=== PATIENT | female | born 1960 | race Caucasian/White ===

== ENCOUNTER → 2020-05-14 17:02 | Outpatient (CLI) | payer OTHER, SELFPAY ==
--- NOTE | ~2020-05-14 | XR_ITS ---
EXAMINATION: XR foot RT standing 2V DATE: 05/14/2020 17:25 INDICATION: Osteoarthritis. TECHNIQUE: 2 views of right foot with weightbearing were obtained. COMPARISON: None. FINDINGS: There is moderate hallux valgus. No fracture. There is mild osteoarthritis of first metatar sophalangeal joint, first interphalangeal joint, and third proximal interphalangeal joint. IMPRESSION: 1. Moderate hallux valgus. 2. Mild polyarticular osteoarthritis. Reviewed, dictated and finalized at location A. OPTOMETRIC
--- NOTE | ~2020-05-14 | XR_ITS ---
EXAMINATION: XR hand BI arthritis min 3V DATE: 05/14/2020 17:25 INDICATION: Osteoarthritis. TECHNIQUE: 4 views of right hand and 4 views of left hand on a total of 7 radiographs were obtained. COMPARISON: None. FINDINGS: RIGHT HAND: Bone alignment is normal. No fracture. There is mild osteoarthritis of third and fifth di stal interphalangeal joints with small periarticular calcification at third distal interphalangeal ruperto int. LEFT HAND: Bone alignment is normal. No fracture. There is mild osteoarthritis of second, fourth, and fifth distal interphalangeal joints. IMPRESSION: 1. Mild polyarticular osteoarthritis. Reviewed, dictated and finalized at location A. 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
--- NOTE | ~2020-05-14 | XR_ITS ---
EXAMINATION: XR foot LT standing 2V DATE: 05/14/2020 17:25 INDICATION: Osteoarthritis. TECHNIQUE: 2 views of left foot were obtained. COMPARISON: None. FINDINGS: There is mild hallux valgus. No fracture. Joint spaces are normal. IMPRESSION: 1. Mild hallux valgus. 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 Mild hallux valgus.
== END ==
PROVIDERS: PCP Family Medicine Sports Medicine; Visit Provider Internal Medicine
DX: M19.041 Primary osteoarthritis, right hand (principal); M19.042 Primary osteoarthritis, left hand; M20.11 Hallux valgus (acquired), right foot; M19.071 Primary osteoarthritis, right ankle and foot; M20.12 Hallux valgus (acquired), left foot
CPT/HCPCS: 73130; 73620

== ENCOUNTER → 2020-07-09 11:45 | Outpatient (CLI) | payer OTHER, SELFPAY ==
--- NOTE | ~2020-07-09 | MM_ITS ---
EXAMINATION: MM scrn elizabeth implant BI w moises HISTORY: Screening mammogram TECHNIQUE: Craniocaudal and mediolateral oblique 3-D tomosynthesis images with implant displacement a nd synthetic 2-D images were generated. Craniocaudal and mediolateral oblique views of the breasts wi thout implant displacement were obtained using full field digital mammography. CAD analysis was submi tted and interpreted. COMPARISON: Comparison to multiple prior studies sequentially, with oldest reviewed study dated 09/01. BREAST PARENCHYMAL COMPOSITION: There are scattered areas of fibroglandular density. FINDINGS: There is no evidence of suspicious mass, calcification, or architectural distortion to sugg est malignancy in either breast. There has been no suspicious interval change. IMPRESSION: 1. No mammographic evidence of malignancy. 2. Recommend routine screening mammography in one year. BI-RADS Category 1: Negative Reviewed, dictated and finalized at location A. 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
== END ==
PROVIDERS: PCP Family Medicine Sports Medicine; Visit Provider Obstetrics & Gynecology
DX: Z12.31 Encounter for screening mammogram for malignant neoplasm of breast (principal)
CPT/HCPCS: 77063; 77067

== ENCOUNTER → 2021-11-27 11:09 | Outpatient (CLI) | payer OTHER, SELFPAY ==
--- NOTE | ~2021-11-27 | MM_ITS ---
EXAMINATION: MM scrn elizabeth implant BI w moises HISTORY: Screening mammogram TECHNIQUE: Craniocaudal and mediolateral oblique 3-D tomosynthesis images with implant displacement a nd synthetic 2-D images were generated. Craniocaudal and mediolateral oblique views of the breasts wi thout implant displacement were obtained using full field digital mammography. CAD analysis was submi tted and interpreted. COMPARISON: 07/09/2020, 09/13/2018, 09/01/2017 BREAST PARENCHYMAL COMPOSITION: The breasts are heterogeneously dense, which may obscure small masses . FINDINGS: There is no evidence of suspicious mass, calcification, or architectural distortion to sugg est malignancy in either breast. There has been no suspicious interval change. IMPRESSION: 1. No mammographic evidence of malignancy. 2. Recommend routine screening mammography in one year. BI-RADS Category 1: Negative Reviewed, dictated and finalized at location A.
== END ==
PROVIDERS: PCP Family Medicine Sports Medicine; Visit Provider Obstetrics & Gynecology
DX: Z12.31 Encounter for screening mammogram for malignant neoplasm of breast (principal)
CPT/HCPCS: 77063; 77067

== ENCOUNTER 2022-01-28 13:54 | Outpatient (CLI) | payer OTHER, SELFPAY ==
--- NOTE | ~2022-01-28 | US_ITS ---
EXAMINATION: US carotid duplex BI DATE: 01/28/2022 14:41 INDICATION: Carotid bruit TECHNIQUE: Grayscale, color Doppler, and pulsed Doppler images of the cervical carotid arteries were obtained. The degree of vessel stenosis is placed in one of the following categories: normal, <50%, 5 0-69%, >=70% but less than near-occlusion, near-occlusion, or total occlusion. Note that percent sten osis relative to normal distal artery lumen diameter is indirectly measured from velocity measurement s as described by Roderick, et al. Radiology 2003; 229:340-346. COMPARISON: None. FINDINGS: RIGHT: The right common carotid artery (CCA) peak systolic velocity (PSV) is 81 cm/s. The right internal car otid artery (ICA) PSV is 86 cm/s. The right ICA end-diastolic velocity (EDV) is 27 cm/s. The right IC A/CCA PSV ratio is 1.1. Grayscale and color Doppler images yield an estimate of <50% diameter reducti on from plaque in the ICA. The external carotid artery (ECA) PSV is 242 cm/s. There is antegrade flow in the right vertebral artery. LEFT: The left CCA PSV is 80 cm/s. The left ICA PSV is 114 cm/s. The left ICA EDV is 43 cm/s. The left ICA/ CCA PSV ratio is 1.4. Grayscale and color Doppler images yield an estimate of <50% diameter reduction from plaque in the ICA. The ECA PSV is 205 cm/s. There is antegrade flow in the left vertebral arter y. IMPRESSION: 1. <50% stenosis in the right internal carotid artery. 2. <50% stenosis in the left internal carotid artery. Reviewed, dictated and finalized at location A.
--- NOTE | ~2022-01-28 | XR_ITS ---
XR chest 2V DATE: 01/28/2022 14:47 INDICATION: Dizziness for 2 weeks. History of hypertension. TECHNIQUE: 2 views COMPARISON: Two-view chest on 06/23/2006 FINDINGS: Normal heart size. Aortic arch calcification. No hilar or mediastinal enlargement. Mild bilateral apical capping. No pulmonary infiltrate or consolidation, pleural effusion or pulmonar y vascular congestion or pneumothorax. Osteopenia. Mild thoracic dextroscoliosis. IMPRESSION: No active cardiopulmonary disease Aortic atherosclerosis Osteopenia Mild dextroscoliosis of the thoracic spine. Reviewed, dictated and finalized at location B.
== END 2022-01-28 13:55 | disposition home or self-care (01) ==
PROVIDERS: PCP Internal Medicine; Visit Provider Internal Medicine
DX: R09.89 Other specified symptoms and signs involving the circulatory and respiratory systems (principal); I10 Essential (primary) hypertension; R42 Dizziness and giddiness
CPT/HCPCS: 71046; 93880

== ENCOUNTER 2022-02-03 13:18 | Outpatient (CLI) | payer OTHER, SELFPAY ==
--- NOTE | 2022-02-03 01:00 | ECHO_ITS ---
Patient Info Name: Senia Ruth Age: 61 years : 1960 Gender: Female Ht: 63 in Wt: 139 lbs BSA: 1.68 m2 HR: 75 bpm BP: 156 / 82 mmHg Heart Rhythm: Sinus Rhythm Technical Quality: Fair Exam Date: 02/03/2022 1:51 PM Exam Location: [facility] Patient Status: Outpatient Admit Date: 02/03/2022 Staff Ordering Physician: William Craig MD Track Repair Supervisor: Lizzie Rivas RDCS Attending Provider: William Craig MD Exam Type: CA echo doppler color flow Study Info Indications - Dizziness, giddiness, bilateral bruitis, cad Complete two-dimensional, color flow and Doppler transthoracic echocardiogram is performed. Summary 1. Complete two-dimensional, color flow and Doppler transthoracic echocardiogram is performed. 2. Left ventricular chamber dimension is normal. 3. Left ventricular systolic function is normal, estimated at 60-65%. 4. There is moderately increased left ventricular wall thickness. 5. The left ventricular diastolic function is abnormal. 6. E/e' 35 is significantly elevated. 7. Left atrial chamber dimension is mildly enlarged. 8. There is moderate aortic valve sclerosis. 9. The mitral valve has moderately calcified annulus. 10. There is mild to moderate mitral valve regurgitation. 11. There is trace tricuspid valve regurgitation. 12. No pulmonary hypertension, estimated pulmonary arterial systolic pressure is 39 mmHg. 13. There is trace pulmonic regurgitation. Left Ventricle E/e' 35 is significantly elevated. Left ventricular chamber dimension is normal. Left ventricular systolic function is normal, estimated at 60-65%. There is moderately increased left ventricular wall thickness. The left ventricular diastolic function is abnormal. Right Ventricle Right ventricular systolic function is normal and with normal TAPSE 2.0 cm. Right ventricular chamber dimension is normal. Left Atria Left atrial chamber dimension is mildly enlarged. Right Atria Right atrial chamber dimension is normal. Aortic Valve The aortic valve is trileaflet. There is moderate aortic valve sclerosis. There is no aortic valve stenosis. There is no aortic valve regurgitation. Pulmonic Valve There is trace pulmonic regurgitation. Mitral Valve The mitral valve has moderately calcified annulus. There is no mitral valve stenosis. There is mild to moderate mitral valve regurgitation. Tricuspid Valve There is trace tricuspid valve regurgitation. No pulmonary hypertension, estimated pulmonary arterial systolic pressure is 39 mmHg. Pericardium/Pleural There is no pericardial effusion. Inferior Vena Cava Normal inferior vena cava with >50% collapse upon inspiration consistent with normal right atrial pressure, 5 mmHg. Aorta The aortic root size at the sinus of Valsalva is normal. Left Ventricular Outflow Tract Name Value Normal LVOT 2D LVOT Diameter 1.9 cm LVOT Doppler LVOT Peak Velocity 109 cm/s LVOT Peak Gradient 5 mmHg LVOT Mean Gradient 2 mmHg LVOT VTI 21 cm
== END 2022-02-03 13:19 | disposition home or self-care (01) ==
LOC: CHSIMG 13:19
PROVIDERS: PCP Internal Medicine; Visit Provider Internal Medicine
DX: R42 Dizziness and giddiness (principal); R09.89 Other specified symptoms and signs involving the circulatory and respiratory systems; I25.10 Atherosclerotic heart disease of native coronary artery without angina pectoris
CPT/HCPCS: 93306

== ENCOUNTER → 2022-02-14 12:23 | Outpatient (CLI) | payer OTHER, SELFPAY ==
--- NOTE | ~2022-02-14 | DEXA_ITS ---
Bone Density Report Name: LYNN ZELAYA Age: 61 Sex: Female Ethnicity: White Date of : 1960 Indication: osteopenia; rheumatoid arthritis; postmenopausal Referring Provider: Linda Espinoza Study: Bone densitometry was performed. Exam Date: February 14, 2022 Accession number: [id number] Bone Density: Region BMD T-score Z-score Classification AP Spine (L1-L4) 0.799 -2.3 -0.8 Osteopenia Femoral Neck (Left) 0.657 -1.7 -0.4 Osteopenia Total Hip (Left) 0.782 -1.3 -0.3 Osteopenia Femoral Neck (Right) 0.668 -1.6 -0.3 Osteopenia Total Hip (Right) 0.750 -1.6 -0.6 Osteopenia Total Hip Mean 0.766 -1.5 -0.5 Osteopenia World Health Organization criteria for BMD impression classify patients as: Normal (T-score at or above -1.0), Osteopenia (T-score between -1.0 and -2.5), or Osteoporosis (T-score at or below -2.5). 10-year Fracture Risk(1): Major Osteoporotic Fracture 12% Hip Fracture 2.3% Reported Risk Factors: [place] (), Neck BMD=0.657, BMI=24.7, smoking, rheumatoid arthritis (1) FRAX(R) Version 3.08. Fracture probability calculated for an untreated patient. Fracture probability may be lower if the patient has received treatment. Previous Exams: Region Exam Age BMD T-score BMD Change BMD Change Date g/cm2 vs Baseline vs Previous AP Spine(L1-L4) 02/14/2022 61 0.799 -2.3 -0.144* -0.078* 08/08/2016 55 0.877 -1.5 -0.066* -0.066* 07/29/2011 50 0.943 -0.9 Total Hip(Left) 02/14/2022 61 0.782 -1.3 -0.076* 0.007 08/08/2016 55 0.776 -1.4 -0.083* -0.083* 07/29/2011 50 0.859 -0.7 Total Hip(Right) 02/14/2022 61 0.750 -1.6 -0.103* -0.052* 08/08/2016 55 0.802 -1.2 -0.051* -0.051* 07/29/2011 50 0.853 -0.7 *Denotes significance at 95% confidence level, LSC for AP Spine = 0.022 g/cm2, LSC for Total Hip = 0.027 g/cm2 Clinical Information Provided by Patient: Smokes Has rheumatoid arthritis Patient maximum height was 63 Menopause Age: 53 No regular weight bearing exercise Drinks caffeinated beverages Onset of menses at age 14 Number of children 1 Impression: The patient has low bone mass, based on the Total Spine T-score. The patient has an estimated ten-year risk of hip fracture of 2.3% and an estimated ten-year risk of major fracture of 12%, based on the WHO FRAX algorithm. The patient has risk factors, i
== END ==
PROVIDERS: PCP Internal Medicine; Visit Provider Obstetrics & Gynecology
DX: Z78.0 Asymptomatic menopausal state (principal); M85.88 Other specified disorders of bone density and structure, other site; M85.852 Other specified disorders of bone density and structure, left thigh; M85.851 Other specified disorders of bone density and structure, right thigh
CPT/HCPCS: 77080

== ENCOUNTER 2023-01-07 10:23 | Outpatient (CLI) | payer OTHER, SELFPAY ==
--- NOTE | ~2023-01-07 | CT_ITS ---
CT Scan of the Chest without Contrast: Clinical Indication: Lung cancer screening, personal history of nicotine dependence Technique: Contiguous sections were acquired throughout the chest without intravenous contrast. Dose reduction technique was used on this scan by utilizing automated exposure control and iterative recon struction technique. The dose-length product (DLP) was 63.01 mGy-cm. Findings: There is no evidence of any significant mediastinal, hilar or axillary lymphadenopathy. Atherosclerot ic calcifications of the aorta and coronary arteries are present. There is no evidence of pleural or pericardial effusion. Biapical scarring present. 2 mm right upper lobe pulmonary nodule present (axial image 45). There is focal cystic change or bronchiectatic change at the right lung base (axial image 92 for example). Images through the upper abdomen reveal no abnormalities. Impression: Lung RADS 2: Benign appearance. 12 month follow-up screening CT advised. Reviewed, dictated and finalized at [facility]. Impression: Lung RADS 2: Benign appearance. 12 month follow-up screening CT advised.
== END 2023-01-07 10:24 | disposition home or self-care (01) ==
LOC: CHSIMG 10:24
PROVIDERS: PCP Internal Medicine; Visit Provider Internal Medicine
DX: Z12.2 Encounter for screening for malignant neoplasm of respiratory organs (principal); Z87.891 Personal history of nicotine dependence
CPT/HCPCS: 71271

== ENCOUNTER → 2023-03-17 10:53 | Outpatient (CLI) | payer OTHER, SELFPAY ==
--- NOTE | ~2023-03-17 | MM_ITS ---
EXAMINATION: MM scrn elizabeth implant BI w moises HISTORY: Screening mammogram TECHNIQUE: Craniocaudal and mediolateral oblique 3-D tomosynthesis images with implant displacement a nd synthetic 2-D images were generated. Craniocaudal and mediolateral oblique views of the breasts wi thout implant displacement were obtained using full field digital mammography. CAD analysis was submi tted and interpreted. COMPARISON: 11/27/2021, 07/01/2020 bilateral implant screening mammogram examinations BREAST PARENCHYMAL COMPOSITION: The breasts are heterogeneously dense, which may obscure small masses . FINDINGS: Status post bilateral augmentation mammoplasty. There is no evidence of suspicious mass, ca lcification, or architectural distortion to suggest malignancy in either breast. There has been no tafoya spicious interval change. IMPRESSION: 1. No mammographic evidence of malignancy. 2. Recommend routine screening mammography in one year. BI-RADS Category 1: Negative Reviewed, dictated and finalized at location A.
== END ==
PROVIDERS: PCP Obstetrics & Gynecology; Visit Provider Obstetrics & Gynecology
DX: Z12.31 Encounter for screening mammogram for malignant neoplasm of breast (principal)
CPT/HCPCS: 77063; 77067

== ENCOUNTER 2023-11-14 09:49 | Outpatient (CLI) | payer OTHER, SELFPAY ==
--- NOTE | ~2023-11-14 | MR_ITS ---
EXAMINATION: MR brain/brain stem wo con DATE: 11/14/2023 10:42 INDICATION: New onset headache. TECHNIQUE: Magnetic resonance imaging (MRI) of the brain and brainstem was performed without intraven ous contrast. COMPARISON: None. FINDINGS: There is an old infarct in left frontal lobe. There is an old infarct in right temporal par ietal region. There is an acute infarct in left occipital lobe. There are scattered areas of nonspeci fic increased T2-weighted signal intensity in the cerebral white matter and jessenia. There is no intracr anial hemorrhage or abnormal mass lesion. The ventricles are normal in size. The orbits are normal. T he mastoid air cells are normal. IMPRESSION: 1. Acute infarct in left occipital lobe. 2. 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 3. Extensive nonspecific cerebral white matter disease and pontine disease, which likely represents c hronic small vessel ischemic disease. Reviewed, dictated and finalized at location A. IMPRESSION: 1. Acute infarct in left occipital lobe. 2. 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 3. Extensive nonspecific cerebral white matter disease and pontine disease, whi ch likely represents chronic small vessel ischemic disease.
== END 2023-11-14 09:50 | disposition home or self-care (01) ==
PROVIDERS: PCP Internal Medicine; Visit Provider Internal Medicine
DX: R51.9 Headache, unspecified (principal); I63.9 Cerebral infarction, unspecified; R90.82 White matter disease, unspecified; G93.89 Other specified disorders of brain
CPT/HCPCS: 70551

== ENCOUNTER 2023-11-24 08:35 | Outpatient (CLI) | payer OTHER, SELFPAY ==
--- NOTE | ~2023-11-24 | CT_ITS ---
EXAMINATION: CTA brain carotid DATE: 11/24/2023 09:25 INDICATION: Cerebrovascular accident. TECHNIQUE: Computed tomographic angiography (CTA) of the head was performed without and with 100 mL O [id number] intravenous contrast. CTA of the neck was performed with intravenous contrast. Automated exposure control and iterative reconstruction technique were employed. The dose-length product was 1 458.13 mGy-cm. Maximum intensity projection and volume rendered 3D-reconstructions were created by gulshan phipps technologist on a separate workstation. COMPARISON: Brain MRI 11/14/2023 FINDINGS: HEAD CTA: There is a subacute infarct in left occipital lobe. There is an old infarct in the left fro ntal lobe. There is an old infarct in the right temporal parietal region. There are scattered areas o f low attenuation in the cerebral white matter. There is no intracranial hemorrhage or abnormal mass lesion. The orbits are normal. The paranasal sinuses are clear. The mastoid air cells are normal. Rig ht vertebral artery is dominant. There is moderate stenosis of the intracranial right vertebral arter y. There is no significant stenosis of basilar artery or the posterior cerebral arteries. There is mi ld stenosis of the intracranial internal carotid arteries. There is no significant stenosis of the an terior or middle cerebral arteries. Anterior communicating artery is normal. The posterior communicat ing arteries are normal. There is no aneurysm. NECK CTA: There is mild emphysema. There is mild scarring at the lung apices. 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 There is plaque in the proximal inte rnal carotid arteries. There is 17% stenosis of the proximal right internal carotid artery relative t o normal distal artery lumen diameter (NASCET criteria). There is 8% stenosis of the proximal left in ternal carotid artery relative to normal distal artery lumen diameter. There is severe cervical spond ylosis. IMPRESSION: 1. Subacute infarct in left occipital lobe. 2. Old infarcts involving the left frontal lobe and right temporal parietal region. 3. Extensive nonspecific cerebral white matter disease, which likely represents chronic small vessel ischemic disease. 4. Moderate stenosis of the intracranial right vertebral artery. 5. 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 6. 17% stenosis of the proximal right internal carotid artery relative to normal distal artery lumen diameter (NASCET criteria). 7. 8% stenosis of the proximal left internal carotid artery relative to normal distal artery lumen di ameter. Reviewed, dictated and finalized at location A. IMPRESSION: 1. Subacute infarct in left occipital lobe. 2. Old infarcts involving the left frontal lobe and right temporal parietal reg ion. 3. Extensive nonspecific cerebral white matter disease, which likely represents chronic small vessel ischemic disease. 4. Moderate stenosis of the intracranial right vertebral artery. 5. 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 6. 17% stenosis of the proximal right internal carotid artery relative to britni l distal artery lumen diameter (NASCET criteria). 7. 8% stenosis of the proximal left internal carotid artery relative to normal distal artery lumen diameter.
== END 2023-11-24 08:36 | disposition home or self-care (01) ==
LOC: CHSIMG 08:36
PROVIDERS: PCP Internal Medicine; Visit Provider Internal Medicine
DX: R90.82 White matter disease, unspecified (principal); I63.89 Other cerebral infarction; I67.9 Cerebrovascular disease, unspecified; I65.02 Occlusion and stenosis of left vertebral artery; I65.23 Occlusion and stenosis of bilateral carotid arteries
CPT/HCPCS: 70496; 70498; Q9967

== ENCOUNTER 2023-11-26 09:22 | Outpatient (CLI) | payer OTHER, SELFPAY ==
--- NOTE | 2023-12-24 11:06 | P.PCNHOL_ITS ---
Holter/Event Monitor Holter/Event Monitor Date of procedure: 11/26/23 Holter/Event Procedure: Event Monitor Indications: TIA Conclusion: 1. 24 days event monitor between 11/26/23-12/24/23. There are 31 available transm issions for analysis. 2. Underlying rhythm is sinus rhythm. HR range 49-115 bpm; average HR 69 bpm. HR at 49 bpm was on 11/27/23 at 16:20. 3. No premature supraventricular complexes. No supraventricular tachycardia. 4. There are occasional premature ventricular complexes with total burden of <1%. No ventricular tachycardia. 5. No significant pauses greater than 2 seconds. 6. Patient reports 8 episodes of symptoms of dizziness and symptoms other than listed which demonstrate sinus rhythm, HR range 63-100 bpm.
== END 2023-11-26 09:23 | disposition home or self-care (01) ==
PROVIDERS: PCP Internal Medicine; Visit Provider Internal Medicine
DX: I67.9 Cerebrovascular disease, unspecified (principal)
CPT/HCPCS: 93270

== ENCOUNTER 2024-01-07 13:22 | Outpatient (CLI) | payer OTHER, SELFPAY ==
--- NOTE | 2024-01-07 13:27 | ECHO_ITS ---
Patient Info Name: Senia Ruth Age: 63 years : 1960 Gender: Female Ht: 63 in Wt: 134 lbs BSA: 1.65 m2 HR: 75 bpm BP: 130 / 81 mmHg Technical Quality: Good Exam Date: 01/07/2024 1:39 PM Exam Location: [facility] Patient Status: Outpatient Admit Date: 01/07/2024 Staff Ordering Physician: William Craig MD Clinic Cma: Bernard Chan RDCS Attending Provider: William Craig MD Exam Type: CA echo doppler w bubble study Study Info Indications - HTN - small vessel disease - CVA Complete two-dimensional, color flow and Doppler transthoracic echocardiogram is performed with agitated saline. Contrast/Agitated Saline Contrast/Ag. Saline: Agitated Saline Amount: 9.00 ml Existing IV Access: Yes Summary 1. Left ventricular chamber dimension is normal. 2. Left ventricular systolic function is normal, estimated at 60-65%. 3. There is mild concentric increased left ventricular wall thickness. 4. The left ventricular diastolic function is grade I diastolic dysfunction. 5. E/e' 33 is significantly elevated. 6. Left atrial chamber dimension is moderately enlarged. 7. There is mild aortic valve sclerosis. 8. The mitral valve has not well visualized and moderately calcified annulus. 9. There is moderate mitral valve stenosis based on valve area of 1.3 cm2 and mean gradient of 12 mmHg. 10. There is trace tricuspid valve regurgitation. 11. No pulmonary hypertension, estimated pulmonary arterial systolic pressure is 33 mmHg. 12. There is trace pulmonic regurgitation. Left Ventricle E/e' 33 is significantly elevated. Left ventricular chamber dimension is normal. Left ventricular systolic function is normal, estimated at 60-65%. There is mild concentric increased left ventricular wall thickness. The left ventricular diastolic function is grade I diastolic dysfunction. Right Ventricle Right ventricular systolic function is normal and with normal TAPSE 2.1 cm. Right ventricular chamber dimension is normal. Left Atria Left atrial chamber dimension is moderately enlarged. Right Atria Right atrial chamber dimension is normal. Atrial Septum Agitated saline injection opacified right side cardiac chambers with valsalva maneuver without shunt to left side cardiac chambers. Intact interatrial septum visualized by 2D and agitated saline imaging. Aortic Valve The aortic valve is trileaflet. There is mild aortic valve sclerosis. There is no aortic valve stenosis. There is no aortic valve regurgitation. Pulmonic Valve There is trace pulmonic regurgitation. Mitral Valve The mitral valve has not well visualized and moderately calcified annulus. There is moderate mitral valve stenosis based on valve area of 1.3 cm2 and mean gradient of 12 mmHg. There is mild mitral valve regurgitation. Tricuspid Valve There is trace tricuspid valve regurgitation. No pulmonary hypertension, estimated pulmonary arterial systolic pressure is 33 mmHg. Pericardium/Pleural There is no pericardial effusion. Inferior Vena Cava Normal inferior vena cava with >50% collapse upon inspiration consistent with normal right atrial pressure, 5 mmHg. Aorta The aortic root size at the sinus of Valsalva is normal. Left Ventricular Outflow Tract Name Value Normal LVOT 2D LVOT Diameter
== END 2024-01-07 13:23 | disposition home or self-care (01) ==
LOC: CHSIMG 13:23
PROVIDERS: PCP Internal Medicine; Visit Provider Internal Medicine
DX: I67.9 Cerebrovascular disease, unspecified (principal); I10 Essential (primary) hypertension; I05.0 Rheumatic mitral stenosis; I35.8 Other nonrheumatic aortic valve disorders
CPT/HCPCS: 93306; 96375

== ENCOUNTER 2024-01-29 10:15 | Emergency (ER) | payer OTHER, SELFPAY ==
[2024-01-29] VITALS (11 sets, daily range): BP systolic 145–187; BP diastolic 68–92; PULSE 71–103; RESP 12–20; TEMP 36.1; O2SAT 94–98
--- NOTE | ~2024-01-29 | XR_ITS ---
Portable chest x-ray Comparison: 01/28/2022 Clinical History: Altered mental status Findings: Minimal haziness left lung base. Right lung clear. Cardiomediastinal silhouette is stable . Bones and soft tissues are unremarkable. Impression: Minimal haziness left lung base, nonspecific. Correlate for subtle pneumonia. Reviewed, dictated and finalized at [facility]. Impression: Minimal haziness left lung base, nonspecific. Correlate for subtle pneumonia.
--- NOTE | ~2024-01-29 | CT_ITS ---
CT head without contrast Indication: Headache COMPARISON: 11/24/2023 Technique: Serial scans were obtained through the brain without the administration of contrast. Dose reduction technique was used on this scan by utilizing automated exposure control and iterative recon struction technique. The dose-length product (DLP) was 605.33 mGy-cm. Findings: There is no evidence of intracranial hemorrhage, mass lesion, or acute infarct. Chronic lef t frontal lobe infarct is unchanged. Chronic posterior left temporal lobe infarct is present. The catrachito tricles and subarachnoid spaces are dilated, consistent with minimal atrophy. Low attenuation region s are seen within the periventricular white matter bilaterally, likely representing changes from mobile nurse steff microvascular ischemic disease. There is no evidence of edema, mass effect or midline shift. Th e visualized paranasal sinuses and mastoid air cells are clear. Impression: No intracranial hemorrhage, mass, or acute infarct. Chronic infarcts, as above. Atrophy and chronic white matter changes, as above. Reviewed, dictated and finalized at location . Impression: No intracranial hemorrhage, mass, or acute infarct. Chronic infarcts, as above. Atrophy and chronic white matter changes, as above.
--- NOTE | ~2024-01-29 | CT_ITS ---
EXAMINATION: CTA BRAIN/CAROTID DATE: 01/29/2024 12:50 INDICATION: Stroke with new onset altered mental status, confusion and left-sided headache TECHNIQUE: Computed tomographic angiography (CTA) of the head and neck was performed with 100 mL Omni paque-350 intravenous contrast. Multiplanar reconstructions and maximum intensity projection 3D-recon structions of the carotid arteries and of the intracranial arteries were created by the technologist on a separate workstation. Automated exposure control and iterative reconstruction technique were emp loyed.The dose-length product was 905.14 mGy-cm. COMPARISON: None. FINDINGS: Carotid arteries: Aortic arch is normal in caliber without dissection. There is atherosclerotic plaque at the origins o f the great vessels arising from the arch with approximately 40% stenosis at the origin of the left c ommon carotid artery. There is a 50% stenosis of the right common carotid artery at its bifurcation. There is additional atherosclerotic plaque with 0 % stenosis of the both the right and left carotid b ulbs relative to normal distal artery lumen diameter (NASCET criteria). There is occlusion of the helene gin of the left vertebral artery. There is some reconstitution of a minimal amount of contrast within the threadlike left vertebral artery beginning at the level of the upper cervical spine. Moderate ce rvical spondylosis. Cervical soft tissues are unremarkable. Mild emphysema with moderate biapical ple ural-parenchymal scarring. Intracranial arteries The right vertebral artery is dominant likely related to the proximal occlusion of the left vertebral artery with minimal contrast within a threadlike intracranial portion of the left vertebral artery. There is prominent atherosclerotic calcification at the right carotid canal and the bilateral carotid siphons which limits differentiation of intraluminal contrast from potential soft plaque in the degr ee of stenosis. There appears to be obtained moderate 50-70% stenosis along the right internal caroti d artery both at the carotid canal and along the intracavernous portion of the right carotid artery a nd potentially also at the cavernous portion of the left internal carotid artery. No significant sten osis along the right vertebral or basilar arteries. There are no aneurysms identified. Both A1 and P 1 segments are patent. Cerebral arterial arborization appears symmetric. IMPRESSION: 1. Atherosclerotic plaque with 0% stenosis of the right and left carotid bulbs relative to normal dis krystal artery lumen diameter (NASCET criteria). 2. Atherosclerotic plaques resulting in 40% stenosis at the origin of the left common carotid artery and 50% stenosis at the distalmost right common carotid artery at its bifurcation. 3. Occlusion of the origin of the left vertebral artery which appears to reconstitute along the mid c ervical spine with minimal contrast seen along the threadlike intracranial portion of the artery. 4. Extensive atherosclerotic calcite and noncalcified plaque along the carotid canal the right logistics intern al carotid artery and at the bilateral carotid siphons this along with the surrounding bones limits a ssessment for the degree of stenosis which could reach up to moderate 50-70% stenosis at each of thes e regions. 5. No evident thrombosis, aneurysm or hemodynamically significant stenosis in the remainder of the mo re distal intracranial arteries. Reviewed, dictated and finalized at location A. IMPRESSION: 1. Atherosclerotic plaque with 0% stenosis of the right and left carotid bulbs relative to normal distal artery lumen diameter (NASCET criteria). 2. Atherosclerotic plaques resulting in 40% stenosis at the origin of the left common carotid artery and 50% stenosis at the distalmost right common carotid a rtery at its
--- NOTE | 2024-01-29 10:29 | ECG_ITS ---
Test Date: 2024-01-29 11:02:33 Measurements Intervals [place] Rate: 69 P: 58 MA: 164 QRS: 60 QRSD: 85 T: 74 QT: 400 QTc: 431 Interpretive Statements SINUS RHYTHM WITH SINUS ARRHYTHMIA BASELINE ARTIFACT- I, II, III, AVR, AVL, AVF NORMAL ECG No previous ECG available for comparison Electronically Signed On 01-29-2024 11:04:16 CDT by Han Powers D.O.
[2024-01-29 10:33] LABS: Glucose Point of Care 114 mg/dl (65-105)
--- NOTE | 2024-01-29 10:34 | ED.AMS ---
HPI - Altered Mental Status General Chief Complaint: Altered Mental Status Stated Complaint: confusion Source: patient and family Mode of arrival: ambulatory Limitations: altered mental status History of Present Illness HPI narrative: Patient is 63-year-old female with significant past medical history that presents today with altered mental status. Patient has a history of having 3 2A/drugs in the last year. Her states that she woke up this morning was very confused. He has asked her about taking medication she did know what he was talking about. When asked her a question she was unable to answer them chronically. She does not have any left or right-sided deficits no facial deficits no doses at all. She says the altered mental status. When shown the pictures and sentences of left shoulder scale she was able to answer signs is but not tightly with the pictures were. My initial NIH score assessment is about a 4. she is out of the 4.0 hour window for alteplase. complaint: altered mental status Onset (ago): hour(s) Timing confirmed by: family member Severity: moderate Consistency of symptoms: waxing and waning Associated symptoms: denies other symptoms Related Data Home Medications Medication Instructions Recorded Confirmed metformin 500 mg tablet 500 mg PO DAILY 04/30/20 01/29/24 metoprolol tartrate 50 mg tablet 50 mg PO DAILY 04/30/20 01/29/24 losartan 25 mg tablet 100 mg PO DAILY 03/26/22 01/29/24 Aspir-81 81 mg DAILY 01/29/24 01/29/24 amlodipine 5 mg DAILY 01/29/24 01/29/24 rosuvastatin 20 mg DAILY 01/29/24 01/29/24 Allergies Allergy/AdvReac Type Severity Reaction Status Date / Time No Known Allergies Allergy Verified 01/29/24 10:30 Review of Systems Review of Systems: All systems reviewed & are unremarkable except as noted in HPI and below Constitutional: Constitutional: Reports as per HPI Eyes: Eyes: Reports no additional eye complaints ENT: Reports system reviewed and no additional complaints, except as documented Cardiovascular: Cardiovascular: Reports no additional cardiovascular complaints Respiratory: Respiratory: Reports no additional respiratory complaints Gastrointestinal: Gastrointestinal: Reports no additional gastrointestinal complaints Genitourinary: Genitourinary: Reports no additional female genitourinary complaints Musculoskeletal: Musculoskeletal: Reports no additional musculoskeletal complaints Integumentary/Breasts: Skin/Breast: Reports system reviewed and no additional complaints, except as docu Neurologic: Reports confusion and Reports headache(s) Psychiatric: Psychiatric: Reports no additional psychiatric complaints Endocrine: Endocrine: Reports no additional endocrine complaints Hematologic/Lymphatic: Hematologic/Lymphatic: Reports no additional hematologic/lymphatic complaints Allergic/Immunologic: Allergic/Immunologic: Reports no additional allergic/immunologic complaints PMFSH Past Medical History Medical History Arthritis Bilateral hand pain Diabetes Encounter for screening for other viral diseases Hypertension Inflammatory arthritis (~02/2020) Rheumatoid arthritis, seropositive, multiple sites Family History Family History Mother Hypertension Diabetes mellitus Father Hypertension Sibling Hypertension Diabetes mellitus Social History Social History Smoking packs per day: 0.5 Smoking cigarettes per day: 10.0 Years smoked: 40 Smoking pack-years: 20.00 Smoking status: Current every day smoker Tobacco type: cigarettes Alcohol intake: never Substance use: never Living arrangements: with family Occupation/Education: occupation Gender identity (if verbalized by the patient): Female Exam Const: General: healthy appearing, no acute distress and confusion Nu
[2024-01-29 10:44] LABS: Basophils Percent Auto 1.7 % (0.0-1.0); Eosinophils Absolute Auto 0.31 K/mm3 (0.02-0.50); Eosinophils Percent Auto 5.3 % (1.0-6.0); Hematocrit 34.9 % (35.0-49.0); Hemoglobin 11.3 g/dL (12.0-15.0); Immature Granulocyte Absolute 0.01 K/mm3 (0.00-0.00); Immature Granulocyte Percent A 0.2 % (0.0-0.0); Lymphocytes Absolute Auto 2.18 K/mm3 (1.10-4.50); Lymphocytes Percent Auto 37.5 % (18.0-42.0); Mean Corpuscular HGB Conc 32.4 g/dL (32-36); Mean Corpuscular Hemoglobin 28.5 pg (27.0-31.0); Mean Corpuscular Volume 87.9 fL (78.0-102.0); Mean Platelet Volume 10.6 fl (9.2-11.8); Monocytes Absolute Auto 0.48 K/mm3 (0.10-0.90); Monocytes Percent Auto 8.2 % (2.0-11.0); Neutrophils Absolute Auto 2.74 K/mm3 (1.70-7.20); Neutrophils Percent Auto 47.1 % (50.0-70.0); Platelet Count Result 178 K/mm3 (150-420); Red Blood Count 3.97 M/mm3 (4.20-5.40); Red Cell Distribution Width 13.2 % (11.6-14.4); White Blood Count 5.8 K/mm3 (4.8-10.8)
[2024-01-29 10:57] LABS: INR 0.9; Partial Thromboplastin Time 23.7 Sec (23.9-30.70); Prothrombin Time 9.9 Seconds (9.50-12.1)
[2024-01-29] MEDS: SODIUM CHLORIDE 0.9% IV 1,000 ML 999 ML IV CONT ×2 (11:00→17:20)
[2024-01-29] MEDS: ASPIRIN 81 MG CHEWABLE TABLET 324 MG PO (11:01)
[2024-01-29 11:03] LABS: Alanine Aminotransferase 43 U/L (14-59); Albumin Level 3.7 g/dL (3.4-5.0); Alkaline Phosphatase 71 U/L (46-116); Anion Gap 8 mmol/L (4-12); Aspartate Amino Transferase 28 U/L (15-37); Bilirubin,Total 0.3 mg/dL (0.00-1.00); Blood Urea Nitrogen 13 mg/dL (7-18); Calcium 9.1 mg/dL (8.5-10.1); Carbon Dioxide 28 mmol/L (21-32); Chloride 103 mmol/L (98-108); Estimated CRCL calculation 43 ml/min; Estimated Glomerular Filt Rate 58; Glucose 124 mg/dL (70-99); Osmolality Calculated 289 mOsm/kg (285-295); Potassium 3.7 mmol/L (3.5-5.1); Sodium 139 mmol/L (136-145); Total Protein 7.3 g/dL (6.4-8.2)
[2024-01-29 11:33] LABS: Appearance Urine Clear (Clear); Bilirubin Urine Negative (Negative); Blood Urine Trace-intact (Negative); Color Urine Light Yellow (Yellow); Glucose Urine UA Negative (Negative); Ketones Urine Negative (Negative); Leukocyte Esterase Ur Negative LEU/UL (Negative); Nitrate Urine Negative (Negative); Protein Urine Negative (Negative); Urobilinogen Urine 0.2 mg/dL (0.2-1.0)
[2024-01-29 11:43] LABS: Add Urine Microscopic? YES
[2024-01-29 11:44] LABS: Bacteria Urine None seen /hpf; RBC Urine 0-2 /hpf (0-2); Squamous Epithelial Cell Urine Moderate /hpf (Few); WBC Urine None seen /hpf (0-3)
--- NOTE | 2024-01-29 14:01 | PC.NURSE ---
Spoke with Dr. Gallardo's office staff. Dr. Gallardo is currently unavailable, but message will be sent to her RN about consult request. Awaiting call back.
[2024-01-29] MEDS: CLOPIDOGREL BISULFATE 75 MG TABLET PO (14:06)
[2024-01-29] MEDS: ROSUVASTATIN 10 MG TABLET 40 MG PO (14:06)
--- NOTE | 2024-01-29 14:11 | PC.NURSE ---
Pt states that she needs to urinate again. RN offered commode for Pt's convenience since she is urinating frequently. Pt accepts. PCT placed commode at bedside and instructed Pt on use.
--- NOTE | 2024-01-29 15:19 | PC.NURSE ---
Pt and aware of pending transfer. Pt now able to state the month and day of her birthday, but still cannot say the year. Pt can state that she is at [facility]. When asked the date, Pt states that it is February. Pt still unable to say the year. ERP aware.
--- NOTE | 2024-01-29 15:55 | PC.NURSE ---
ERP spoke with neurologist at [facility] who believes Pt's symptoms are more likely related to encephalopathy instead of stroke and recommends admission under hospitalist. States they do not have any beds available currently, but will call back once something opens up. RN also contacted [facility] in [place] who states that they are at capacity, but Pt was placed on waitlist. Contacted [facility] at [facility] who will page hospitalist regarding admission. Awaiting call back.
[2024-01-29 16:26] LABS: Lactic Acid Reflex 0.9 mmol/L (0.4-2.0)
--- NOTE | 2024-01-29 16:56 | PC.NURSE ---
Dr. Walker in ER and is speaking with ERP at desk.
[2024-01-29] MEDS: methylPREDNISolone SOD SUCC 125 MG VIAL IV PUSH (17:20)
--- NOTE | 2024-01-29 18:03 | PC.NURSE ---
1800: Covid test administered & sent to lab
--- NOTE | 2024-01-29 18:14 | PC.NURSE ---
Waiting for 2nd blood culture to be drawn before starting antibiotics.
[2024-01-29 18:36] LABS: SARS-CoV-2 RNA PCR Negative (Negative)
[2024-01-29 18:41] LABS: Influenza A QL RT-PCR Negative (Negative); Influenza B QL RT-PCR Negative (Negative); RSV RNA, RT-PCR Negative (Negative)
[2024-01-29] MEDS: cefTRIAXone 2 GM/NS 100 ML 2 GM/100 ML BAG IVPB (18:54)
[2024-01-29] MEDS: AZITHROMYCIN 500 MG/NS 250 ML 500 MG/250 ML BAG 250 MG IVPB (19:27)
--- NOTE | 2024-02-05 12:24 | PC.NURSE ---
blood culture reviewed ,, no growth after 5days
== END 2024-01-29 20:38 | disposition short-term general hospital (02) ==
PROVIDERS: Emergency Provider Family Medicine; PCP Internal Medicine
DX: G93.40 Encephalopathy, unspecified (principal); J18.9 Pneumonia, unspecified organism; I65.23 Occlusion and stenosis of bilateral carotid arteries; E11.9 Type 2 diabetes mellitus without complications; I10 Essential (primary) hypertension; M06.9 Rheumatoid arthritis, unspecified; Z79.899 Other long term (current) drug therapy; Z79.84 Long term (current) use of oral hypoglycemic drugs; F17.210 Nicotine dependence, cigarettes, uncomplicated; Z20.822 Contact with and (suspected) exposure to COVID-19
CPT/HCPCS: 36415; 70450; 70496; 70498; 71045; 80053; 81001; 82948; 83605; 84145; 85025; 85610; 85730; 87040; 87637; 93005; 96361; 96365; 96367; 96375; 99285; A9270; J0456; J0696; J2919; J7030; Q9967

== ENCOUNTER 2024-01-29 21:54 | Observation (INO) | payer OTHER, SELFPAY ==
--- NOTE | ~2024-01-29 | XR_ITS ---
EXAMINATION:XR_[id number]_CR DATE: 01/31/2024 18:29 INDICATION: Neck pain TECHNIQUE: AP, lateral, lateral swimmers and odontoid views of the cervical spine are provided. COMPARISON: None FINDINGS: 11 degrees lower cervical levocurvature. Straightening of the normal cervical lordosis. Odontoid is i ntact. Moderate atlantoaxial osteoarthritis. Moderate disc height loss with degenerative endplate ost eophytes at C5-C6 and C6-C7 and mild disc height loss at C4-C5. There is moderate to severe associate d uncovertebral osteoarthritis at these levels. There is moderate to severe bilateral facet osteoarth ritis bilaterally at C3-C4 and C4-C5. Prevertebral soft tissues are normal. Atherosclerotic calcifica tions at the right carotid bulb. Visualized apices of lungs are clear. IMPRESSION: 1. Moderate cervical spondylosis. Reviewed, dictated and finalized at location A.
--- NOTE | ~2024-01-29 | MR_ITS ---
EXAMINATION: MR brain/brain stem wo/w con DATE: 01/30/2024 09:44 INDICATION: Expressive aphasia TECHNIQUE: Magnetic resonance imaging (MRI) of the brain and brainstem was performed without and with 13 mL Multihance intravenous contrast. Sequences included sagittal and axial T1-weighted SE, axial d iffusion-weighted FS SE, axial 3D SWAN, axial T2-weighted FLAIR, and axial T2-weighted FSE. Postcontr ast axial and coronal T1-weighted SE was obtained. Apparent diffusion coefficient (ADC) maps were cre ated. COMPARISON: None. FINDINGS: Moderate-sized region of restricted diffusion involving the posterior medial aspect of the of the lef t temporal and anterior aspect of the left occipital lobe in the left posterior cerebral artery vascu lar distribution. Small region of encephalomalacia with T1 hyperintense laminar necrosis in the later al left occipital lobe and additional small to moderate-sized region of encephalomalacia with additio nal laminar necrosis in the right temporoparietal region. No intracranial hemorrhage or abnormal intr acranial mass lesion. There are scattered areas of nonspecific increased T2-weighted signal intensity in the cerebral white matter, predominantly involving the deep and periventricular white matter. The re are no intraparenchymal signal abnormalities seen on the other pulse sequences. The ventricles are symmetric and normal in size. There are no abnormal extra-axial fluid collections. Flow voids are se en in the cerebral arteries on the T2-weighted sequences consistent with their expected patency. The right vertebral artery is dominant. Small mucous retention cyst in the left maxillary sinus. Visualiz ed orbits and soft tissues are unremarkable. There are no areas of abnormal enhancement on the post c ontrast images. IMPRESSION: 1. Moderate-sized acute infarct at the posterior medial left temporal lobe and anterior left occipita l lobe in the left posterior cerebral artery vascular distribution. 2. Chronic encephalomalacia with laminar necrosis in the lateral left occipital and in the right temp oroparietal regions. 3. Moderate scattered nonspecific white matter T2 hyperintensity likely sequela of chronic small vess el ischemic disease. Reviewed, dictated and finalized at location A. IMPRESSION: 1. Moderate-sized acute infarct at the posterior medial left temporal lobe and anterior left occipital lobe in the left posterior cerebral artery vascular dis tribution. 2. Chronic encephalomalacia with laminar necrosis in the lateral left occipital and in the right temporoparietal regions. 3. Moderate scattered nonspecific white matter T2 hyperintensity likely sequela of chronic small vessel ischemic disease.
--- NOTE | 2024-01-29 21:36 | ADMGEN ---
This patient, Senia Ruth, was admitted to 3 Med Surg Room 317-01. Patient/family oriented to hospital policies and general routines including ID bracelet, bed and alarms, visiting hours, pain management, procedures, bathroom and other care routines, personal items, smoking policy, room service/diet, and visiting hours. Information on how to activate the Rapid Response Team has been discussed. Patient/Family are encouraged to report perceived risks to care and to ask questions if they do not understand what they are told or what they should do.
--- NOTE | 2024-01-29 21:42 | PM.IMHP ---
H&P: HPI History of Present Illness Date/Time: 01/29/24 21:42 Chief Complaint: Confusion Narrative: 63-year-old female presents here with altered mental status with PMH of CVA (residual memory issues and visual changes), rheumatoid arthritis, hypertension, and diabetes. The patient originally presented to [facility] with complaints of confusion. Patient last at her baseline at 10:00 p.m. yesterday when her went to bed. When the patient woke up this morning her noted that she appeared confused, woke up around 9:00 a.m. patient does have history of 3 strokes with residual memory deficits and visual changes. However, has been concerned that symptoms are worse than her a residual deficits. Noted in [facility] ED to have some difficulty with expressive aphasia. During initial evaluation in the ED, the patient was given ceftriaxone, azithromycin, methylprednisolone 125 mg IVP, ASA 324, and 2L NS bolus. Patient follows with neurologist, Dr. Gallardo, in [place]. Patient reports the expressive aphasia has since resolved, however still present on exam. No accompanying focal weakness, focal numbness, facial droop, dysarthria, dysphagia, visual changes, dizziness, or difficulty with balance. Denies cough, shortness breath, fever, chills, body aches. Initial VS at presentation: 96.9? F, HR 72, RR 14, 187/92, and 97% on RA. ED workup showed: No leukocytosis, hemoglobin 11.3, no significant electrolyte derangements, creatinine 0.97 and GFR 58, glucose 124, lactic 0.9, and UA showed trace intact blood and moderate epithelial cells, otherwise unremarkable. Viral PCR negative. Head CT showed no acute findings, chronic infarcts, and atrophy/chronic white matter changes. CXR showed minimal haziness to the left lung base that is nonspecific, correlate for subtle pneumonia. CTA performed, 40% stenosis of the left common carotid artery, 50% stenosis of the distal most right common carotid artery at its bifurcation, occlusion the left vertebral artery which appears to reconstitute along the mid cervical spine with minimal contrast seen along throughout like intracranial portion of the artery, extensive atherosclerotic calcified and nonstop calcified plaque along the carotid canal to the right ICA and at the bilateral carotid siphons, no evidence of thrombosis/aneurysm/S hemodynamically significant stenosis. Review of Systems Review of Systems: Limited All systems reviewed & are unremarkable except as noted in HPI and below PMFSH Past Medical History Medical History (Updated 01/29/24 @ 22:02 by Stephany Yuan APRN) Arthritis Bilateral hand pain Diabetes Encounter for screening for other viral diseases Hypertension Inflammatory arthritis (~02/2020) Rheumatoid arthritis, seropositive, multiple sites Family History Family History Mother Hypertension Diabetes mellitus Father Hypertension Sibling Hypertension Diabetes mellitus Social History Social History Smoking packs per day: 0.5 Smoking cigarettes per day: 10.0 Years smoked: 40 Smoking pack-years: 20.00 Smoking status: Former smoker Tobacco type: cigarettes Alcohol intake: never Substance use: never Do You Feel Safe in your Home?: Yes Lack of Transportation: No Lack of Food: Never True Current Housing: I Have Housing Concerned About Future Housing: No Difficulty Paying Gas/Electric Bills: No Difficulty Paying for Meds: No Currently Unemployed: YES Education: Don't Know Difficulty w/ Childcare or Family Care: No Living arrangements: with family Occupation/Education: occupation Gender identity (if verbalized by the patient): Female Spiritual care concerns: No Meds Home Medications and Allergies Home Medications Medication Instructions Recorded Confirmed Type metformin 500 mg tablet 500 mg PO DAILY 10
[2024-01-29 21:51] VITALS: BP 90/79; PULSE 93; RESP 18; TEMP 37.1; O2SAT 90
[2024-01-29 22:00] VITALS: BMI 25.0
[2024-01-29 22:29] LABS: Hemoglobin A1C 6.2 % (<5.7)
[2024-01-29 22:30] LABS: Cholesterol 152 mg/dL (0-200); HDL Direct 61 mg/dL; Triglycerides 60 mg/dL (<150)
[2024-01-29 22:41] LABS: LDL Cholesterol Direct 70 mg/dL
[2024-01-30] VITALS (8 sets, daily range): BP systolic 110–134; BP diastolic 45–80; PULSE 76–104; RESP 18; TEMP 36.6–36.9; O2SAT 94–97
[2024-01-30 07:08] LABS: Basophils Percent Auto 0.2 % (0.2-1.2); Hematocrit 33.4 % (37.0-47.0); Hemoglobin 10.7 g/dL (12.0-15.0); Immature Granulocyte Absolute 0.02 K/mm3 (0.00-0.031); Immature Granulocyte Percent A 0.4 % (0-0.5); Lymphocytes Absolute Auto 0.71 K/mm3 (0.9-3.2); Lymphocytes Percent Auto 14.5 % (18.3-44.2); Mean Corpuscular Hemoglobin 28.4 pg (26-34); Mean Corpuscular Volume 88.6 fl (80-100); Mean Platelet Volume 10.9 fl (7.4-10.4); Monocytes Percent Auto 0.8 % (2.6-8.5); Neutrophils Absolute Auto 4.1 K/mm3 (1.3-6.7); Neutrophils Percent Auto 84.1 % (45.5-73.1); Platelet Count Result 172 k/mm3 (150-375); Red Blood Count 3.77 M/mm3 (4.2-5.4); Red Cell Distribution Width 13.3 % (11.5-14.5); White Blood Count 4.9 K/mm3 (4.5-10.0)
[2024-01-30 07:30] LABS: Glucose Point of Care 167 mg/dl (65-105)
[2024-01-30 07:31] LABS: Alanine Aminotransferase 36 U/L (6-35); Alkaline Phosphatase 72 U/L (38-126); Anion Gap 11 mmol/L (4-12); Aspartate Amino Transferase 31 U/L (14-36); Bilirubin,Total 0.4 mg/dL (0.2-1.3); Blood Urea Nitrogen 13 mg/dL (7-17); Calcium 8.7 mg/dL (8.4-10.2); Carbon Dioxide 20 mmol/L (22-30); Chloride 107 mmol/L (98-107); Estimated CRCL calculation 46 ml/min; Estimated Glomerular Filt Rate > 60; Glucose 169 mg/dL (65-110); Potassium 3.5 mmol/L (3.4-5.0); Sodium 138 mmol/L (137-145)
[2024-01-30] MEDS: ASPIRIN 81 MG ENTERIC TABLET PO (10:17)
[2024-01-30] MEDS: METOPROLOL TARTRATE 50 MG TAB PO (10:17)
[2024-01-30] MEDS: LEFLUNOMIDE 20 MG TABLET PO (10:17)
[2024-01-30] MEDS: ROSUVASTATIN 20 MG TABLET PO (10:17)
--- NOTE | 2024-01-30 10:17 | PM.IMPN ---
Progress Note: A&P Assessment and Plan (1) Acute stroke due to ischemia: Code(s): I63.9 - Cerebral infarction, unspecified Status: Acute Assessment and Plan: MRI suggestive of left HOMOEOPATH territory infarct but will await confirmation from Radiology since patient had a stroke 3 months ago as well -last known well 24 hours ago, no TNK or EMT indicated -continue aspirin and rosuvastatin, and NIH is low. LDL at goal -a1c at goal 6.2 -echo with bubble in the past negative -no hx of afib or palpitations. 30 day monitor without evidence of afib -CTA with left vertebral artery occlusion (right vert is patent) -suspect large artery etiology. would recommend plavix lifelong in addition to aspirin since she has had this stroke on aspirin. She also has possible moderate ICA stenosis intracerebrally. Will await neurology recommendations -neurochecks ordered, pt and at bedside to let us know if exam changes -hold home bp meds, hydralazine for systolic >220/120 for first 24 hours then lower gradually -would recommend outpt f/u (has neurologist) to monitor -stat CTH for any neurological changes, discussed with nurse (2) Vertebral artery stenosis: Code(s): I65.09 - Occlusion and stenosis of unspecified vertebral artery Status: Acute Assessment and Plan: As above (3) Hypertension: Qualifiers: Hypertension type: primary hypertension Qualified Code(s): I10 - Essential (primary) hypertension Code(s): I10 - Essential (primary) hypertension Status: Acute Assessment and Plan: Holding home meds now -restart after 24 hours -hydralizine PRN for parameters as stated above (4) Diabetes: Qualifiers: Diabetes mellitus type: type 2 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 monitor for pna symptoms Time Spent With Patient Time with patient: 25 - 35 minutes Subjective Date/time seen: 01/30/24 10:17 Interval history: Pt is a 63-year-old female past medical history of stroke back in October. Patient was seen with her today. Her states that her last known well was yesterday at 9:30 a.m.. Patient woke up and really was not communicating well. She had problems with word-finding insert speech and was having problems recalling information. She had no other problems such as dizziness, one-sided weakness, coordination issues, or asymmetrical features. She does have vision loss from her 1st stroke in October and patient states she cannot see her peripheral vision very well. She does not think this has changed since October. She did notice pain on the left side of her head yesterday but that has improved. She has no history of AFib and saw Cardiology recently. She also saw Neurology outpatient. She does not have many details on her last stroke but states she was not hospitalized for such an just saw a neurologist in [place]. she was on Plavix for 1 month but now is on aspirin and rosuvastatin. She did not miss any doses. She has not had any palpitations. Review of Systems Review of Systems: All systems reviewed & are unremarkable except as noted in HPI and below Exam Narrative: General: Well developed well nourished patient in NAD HEENT: normocephalic Neck: supple Neuro: Alert and oriented to self, place and president but not the time. CN 2-12 intact. Strength 5/5 in UE and LE bilaterally. able to to heel to ross. no asymmetrical features. fluent speech without aphasia or dysarthria. CV:RRR, tele with NSR Resp:CTA Abd: Soft, non distended. No pain to palpation. Positive bowel sounds Extremities: No
[2024-01-30] MEDS: LOSARTAN POTASSIUM 100 MG TABLET PO (10:18)
[2024-01-30] MEDS: amLODIPine BESYLATE 5 MG TABLET PO (10:18)
[2024-01-30 11:34] LABS: Glucose Point of Care 157 mg/dl (65-105)
--- NOTE | 2024-01-30 17:59 | WPDNEURCNPN ---
Assessment and Plan Assessment and plan (1) Cerebrovascular accident (CVA) due to embolism of left posterior cerebral artery: Code(s): I63.432 - Cerebral infarction due to embolism of left posterior cerebral artery Status: Acute Assessment and Plan: The patient has right upper quadrantanopsia and mild mixed aphasia. She has history of previous stroke. Findings suggest old stroke were noted on the MRI scan also. Risk factors include strong family history and prior history of stroke. (2) Diabetes: Qualifiers: Diabetes mellitus type: type 2 Diabetes mellitus halfway insulin use: without halfway use Diabetes mellitus complication status: without complication Qualified Code(s): E11.9 - Type 2 diabetes mellitus without complications Code(s): E11.9 - Type 2 diabetes mellitus without complications Status: Acute Assessment and Plan: Hemoglobin A1c was 6.2 (3) Hypertension: Qualifiers: Hypertension type: primary hypertension Qualified Code(s): I10 - Essential (primary) hypertension Code(s): I10 - Essential (primary) hypertension Status: Acute Assessment and Plan: controlled with medications Plan 1. Aspirin and add Plavix 75 mg a day and continue with Crestor but increase the dose to 40 mg a day. Her LDL was around 70 and 1 keep it under 65 this is in light of the fact that she is already on 20 mg of Crestor. The patient is also on Arava which does interact with Crestor specially at a higher dose and hence a CPK will need to monitor periodically. 2. Based on the findings on CT angiogram she does not require any immediate intervention but she does have fair amount of disease and need risk factor management is commended. 3. Speech therapy and physical therapy is recommended. 4. Since the patient has a right upper quadrantanopsia she should get a formalized freeze visual field. For now she should defer driving. Consult date: 01/30/24 HPI: Senia Ruth is a 63 year old female with history of rheumatoid arthritis, diabetes mellitus and previous stroke presented with the is the mental status thought to having some speech problem. According to her thought she was getting confused. She is however pleasant and seems to be better today. MRI of the brain shows a large infarct in the left temporal and occipital lobe area and old stroke seen in the right side. The patient follows up with a neurologist and [facility] and the emergency room physicians discussed the case with the neurologist there and they advised her to look for any metabolic etiology for confusion which are supportive care. Patient is a strong family history of strokes. Her brother was also here and admits to that. No history of recent trauma or febrile illness. Review of Systems Review of Systems: All systems reviewed & are unremarkable except as noted in HPI and below PMFSH Past Medical History Medical History (Updated 01/30/24 @ 18:08 by Ozzie Farley MD) Arthritis Bilateral hand pain Cerebrovascular accident (CVA) due to embolism of left posterior cerebral artery Diabetes Encounter for screening for other viral diseases Hypertension Inflammatory arthritis (~02/2020) Rheumatoid arthritis, seropositive, multiple sites Family History Family History Mother Hypertension Diabetes mellitus Father Hypertension Sibling Hypertension Diabetes mellitus Social History Social History Smoking packs per day: 0.5 Smoking cigarettes per day: 10.0 Years smoked: 40 Smoking pack-years: 20.00 Smoking status: Former smoker Tobacco type: cigarettes Alcohol intake: never Substance use: never Do You Feel Safe in your Home?: Yes Lack of Transportation: No Lack of Food: Never True Current Housing: I Have Housing Concerned About F
[2024-01-30 21:23] LABS: Glucose Point of Care 133 mg/dl (65-105)
[2024-01-31] VITALS (11 sets, daily range): BP systolic 100–178; BP diastolic 63–68; PULSE 68–99; RESP 16–20; TEMP 36.2–36.5; O2SAT 94–98
[2024-01-31] MEDS: ACETAMINOPHEN 325 MG TABLET 650 MG PO ×3 (05:58→16:17)
--- NOTE | 2024-01-31 06:48 | PC.NURSE ---
On 01/31/24, the UPSTAIRS MAID, [Lauren ], provided care and completed [facility] on this patient. I have reviewed the UPSTAIRS MAID's documentation and agree with the findings.
[2024-01-31 07:25] LABS: Glucose Point of Care 114 mg/dl (65-105)
[2024-01-31 07:30] LABS: Basophils Absolute Auto 0.1 K/mm3 (0.0-0.1); Basophils Percent Auto 0.7 % (0.2-1.2); Eosinophils Percent Auto 0.4 % (0-4.4); Hematocrit 31.5 % (37.0-47.0); Immature Granulocyte Absolute 0.03 K/mm3 (0.00-0.031); Immature Granulocyte Percent A 0.4 % (0-0.5); Lymphocytes Absolute Auto 2.39 K/mm3 (0.9-3.2); Lymphocytes Percent Auto 28.1 % (18.3-44.2); Mean Corpuscular HGB Conc 31.7 g/dl (32-36); Mean Corpuscular Hemoglobin 28.2 pg (26-34); Mean Corpuscular Volume 88.7 fl (80-100); Mean Platelet Volume 11.1 fl (7.4-10.4); Monocytes Absolute Auto 0.6 K/mm3 (0.1-0.6); Monocytes Percent Auto 6.6 % (2.6-8.5); Neutrophils Absolute Auto 5.5 K/mm3 (1.3-6.7); Neutrophils Percent Auto 63.8 % (45.5-73.1); Platelet Count Result 171 k/mm3 (150-375); Red Blood Count 3.55 M/mm3 (4.2-5.4); Red Cell Distribution Width 13.4 % (11.5-14.5); White Blood Count 8.5 K/mm3 (4.5-10.0)
[2024-01-31 08:01] LABS: Anion Gap 8 mmol/L (4-12); Blood Urea Nitrogen 19 mg/dL (7-17); Calcium 8.7 mg/dL (8.4-10.2); Carbon Dioxide 25 mmol/L (22-30); Chloride 106 mmol/L (98-107); Estimated CRCL calculation 42 ml/min; Estimated Glomerular Filt Rate 56; Glucose 109 mg/dL (65-110); Potassium 3.3 mmol/L (3.4-5.0); Sodium 139 mmol/L (137-145)
[2024-01-31] MEDS: METOPROLOL TARTRATE 50 MG TAB PO (08:34)
[2024-01-31] MEDS: LEFLUNOMIDE 20 MG TABLET PO (08:34)
[2024-01-31] MEDS: CLOPIDOGREL BISULFATE 75 MG TABLET PO (08:39)
[2024-01-31] MEDS: ASPIRIN 81 MG ENTERIC TABLET PO (08:39)
[2024-01-31] MEDS: POTASSIUM CHLORIDE 20 MEQ ER TABLET 40 MEQ PO (08:39)
--- NOTE | 2024-01-31 11:18 | PM.IMPN ---
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 LDL at goal -a1c at goal 6.2 -echo with bubble in the past negative -no hx of afib or palpitations. 30 day monitor without evidence of afib -CTA with left vertebral artery occlusion (right vert is patent) -suspect large artery etiology. She also has possible moderate ICA stenosis intracerebrally. -neurology following, started on Plavix and increased statin to 40 mg -neurochecks ordered, pt and at bedside to let us know if exam changes -hold home bp meds, hydralazine for systolic >220/120 for first 24 hours then lower gradually -would recommend outpt f/u (has neurologist) to monitor -stat CTH for any neurological changes, discussed with nurse (2) Vertebral artery stenosis: Code(s): I65.09 - Occlusion and stenosis of unspecified vertebral artery Status: Acute Assessment and Plan: As above (3) Hypertension: Qualifiers: Hypertension type: primary hypertension Qualified Code(s): I10 - Essential (primary) hypertension Code(s): I10 - Essential (primary) hypertension Status: Chronic Assessment and Plan: -BP still soft, will hold meds for now -hydralizine PRN for parameters as stated above (4) Diabetes: Qualifiers: Diabetes mellitus type: type 2 Diabetes mellitus mcfp insulin use: without mcfp use Diabetes mellitus complication status: without complication Qualified Code(s): E11.9 - Type 2 diabetes mellitus without complications Code(s): E11.9 - Type 2 diabetes mellitus without complications Status: Chronic Assessment and Plan: A1c good control--6.2 Accu-Cheks Hypoglycemic protocol Sliding scale ordered Subjective Date/time seen: 01/31/24 11:18 Interval history: Patient in bed in no acute distress this morning. She is oriented to self and place but could not tell me the year or president. Her is at the bedside. Indicates that she was able to get that information yesterday but is not concerned. Her sense of taste is off and she does not really want to eat. Will order Ensure drinks. Speech has been ordered although her slurred speech has been resolved from admission. Will continue to monitor. Neurology following Review of Systems Review of Systems: All systems reviewed & are unremarkable except as noted in HPI and below Exam Narrative: General: Well developed well nourished patient in no acute distress HEENT: normocephalic, EOMI, PERRLA Neck: supple Neuro: A&O X2. CN 2-12 intact. Strength 5/5 in UE and LE bilaterally. no asymmetrical features. fluent speech without aphasia or dysarthria. CV:RRR, NO MURMURS Resp: Lungs clear to auscultation Abd: Soft, non distended. No pain to palpation. Positive bowel sounds Extremities: No swelling, erythema, or pain to palpation. Psych: Flat affect, mood appropriate and cooperative NIH-3 but her vision is chronic since her stroke in October. Adjusted NIH 1 for not knowing the month Objective Data Vital Signs Vital Signs: Vital Signs - 24 hr 01/30/24 14:00 01/30/24 12:00 01/30/24 16:00 Temperature 98.0 F Pulse Rate 88 88 88 Respiratory Rate 18 Blood Pressure 110/45 L Pulse Oximetry 94 Oxygen Delivery Fraction of Inspired Oxygen 01/30/24 21:45 01/30/24 20:00 01/30/24 20:00 Temperature 97.9 F Pulse Rate 90 76 Respiratory Rate 18 Blood Pressure 134/72 Pulse Oximetry 97 Oxygen Delivery Room Air Fraction of Inspired Oxygen 01/31/24 00:00 01/31/24 04:00 01/31/24 06:00 Temperature 9
[2024-01-31 11:51] LABS: Glucose Point of Care 124 mg/dl (65-105)
[2024-01-31] MEDS: LIDOCAINE 5% PATCH 1 PATCH TRANSDERM (16:18)
[2024-01-31 16:36] LABS: Glucose Point of Care 131 mg/dl (65-105)
--- NOTE | 2024-01-31 18:02 | WPDNEUROPN ---
Progress Note: A&P Assessment and Plan (1) Cerebrovascular accident (CVA) due to embolism of left posterior cerebral artery: Code(s): I63.432 - Cerebral infarction due to embolism of left posterior cerebral artery Status: Acute (2) Hypertension: Qualifiers: Hypertension type: primary hypertension Qualified Code(s): I10 - Essential (primary) hypertension Code(s): I10 - Essential (primary) hypertension Status: Chronic (3) Diabetes: Qualifiers: Diabetes mellitus type: type 2 Diabetes mellitus terminal clerk insulin use: without detention use Diabetes mellitus complication status: without complication Qualified Code(s): E11.9 - Type 2 diabetes mellitus without complications Code(s): E11.9 - Type 2 diabetes mellitus without complications Status: Chronic (4) Neck pain: Code(s): M54.2 - Cervicalgia Status: Acute (5) Rheumatoid arthritis: Code(s): M06.9 - Rheumatoid arthritis, unspecified Status: Acute Plan 1. We can use gabapentin 300 mg twice a day and if excessive physical therapy for the neck pain. An x-ray of the cervical spine is suggested. 2. With regards to the speech and gait there appears to be a significant improvement. She has a right upper quadrantanopsia other than that I did not find any other significant deficits. 3. She should continue with dual antiplatelets and statins for now. Subjective Date/time seen: 01/31/24 18:02 Interval history: Patient is 63 years old with a new onset stroke with right homonymous upper quadrantanopsia. His speech has cleared and there does not appear to be any concern by the patient's or daughter. She is able to ambulate by herself to the bathroom without any balance issues. She is having pain in the right side of the neck. She does not suffer from chronic head and neck pain however she may have occasional pain in the neck. There is history of rheumatoid arthritis. Review of Systems Review of Systems: All systems reviewed & are unremarkable except as noted in HPI and below Exam Narrative: Fully conscious alert oriented to self time place and person. Nuchal rigidity. There is some tenderness over greater occipital nerve on both sides. I noted that she has a pain relieving patches on the nape of the right shoulder. She is able to move her next to the left and right other also able to put her chin on the chest. Hough nerve examination once again revealed right homonomous upper quadrant anopsia. No other focal deficit on examination upper or lower limbs. Coordination finger-nose appears normal. No nystagmus or intention tremors were noted. Objective Data Vital Signs Vital Signs: Vital Signs - 24 hr 01/30/24 21:45 01/30/24 20:00 01/30/24 20:00 Temperature 36.6 C Pulse Rate 90 76 Respiratory Rate 18 Blood Pressure 134/72 Pulse Oximetry 97 Oxygen Delivery Room Air Fraction of Inspired Oxygen 01/31/24 00:00 01/31/24 04:00 01/31/24 06:00 Temperature 36.4 C Pulse Rate 80 94 94 Respiratory Rate 16 Blood Pressure 100/65 Pulse Oximetry 98 Oxygen Delivery Fraction of Inspired Oxygen 01/31/24 07:57 01/31/24 08:34 01/31/24 08:00 Temperature Pulse Rate 86 95 99 Respiratory Rate 20 Blood Pressure Pulse Oximetry 94 Oxygen Delivery Room Air Fraction of Inspired Oxygen 01/31/24 08:00 01/31/24 13:47 01/31/24 12:00 Temperature 36.5 C Pulse Rate 95 72 68 Respiratory Rate 18 Blood Pressure 131/68 Pulse Oximetry 98 Oxygen Delivery Room Air Fraction of Inspired Oxygen 01/31/24 16:00 Temperature Pulse Rate 76 Respiratory Rate Blood Pressure Pulse Oximetry Oxygen Delivery Fraction of Inspired Oxygen Intake/Output Intake/Output: Intake & Output 01/28/24 01/29/24 01/30/24 01/31/24 23:59 23:59 23:59 23:59 Intake Total 690 1070 Output Total 1100 Balance -410 1070 Meds
[2024-01-31 19:04] LABS: Cholesterol 142 mg/dL (0-200); HDL Direct 55 mg/dL; Triglycerides 132 mg/dL (<150)
[2024-01-31 19:15] LABS: LDL Cholesterol Direct 70 mg/dL
[2024-01-31 20:11] LABS: Folic Acid 5.9 ng/mL (2.76->20)
[2024-01-31 20:18] LABS: Glucose Point of Care 140 mg/dl (65-105)
[2024-02-01] VITALS: PULSE 81
[2024-02-01 04:00] VITALS: PULSE 81
[2024-02-01 05:26] VITALS: BP 139/81; PULSE 98; RESP 18; TEMP 36.2; O2SAT 96
[2024-02-01 07:34] LABS: Glucose Point of Care 112 mg/dl (65-105)
--- NOTE | 2024-02-01 07:40 | PC.NURSE ---
I have reviewed the charting and in agreement of the findings. Will continue to monitor
[2024-02-01 08:00] VITALS: PULSE 102
[2024-02-01] MEDS: GABAPENTIN 300 MG CAPSULE PO (09:10)
[2024-02-01] MEDS: METOPROLOL TARTRATE 50 MG TAB PO (09:10)
[2024-02-01] MEDS: LIDOCAINE 5% PATCH 1 PATCH TRANSDERM (09:11)
[2024-02-01] MEDS: ACETAMINOPHEN 325 MG TABLET 650 MG PO (09:11)
[2024-02-01] MEDS: LEFLUNOMIDE 20 MG TABLET PO (09:11)
[2024-02-01] MEDS: CLOPIDOGREL BISULFATE 75 MG TABLET PO (09:11)
[2024-02-01] MEDS: ASPIRIN 81 MG ENTERIC TABLET PO (09:12)
--- NOTE | 2024-02-01 09:13 | PM.IMPN ---
Progress Note: A&P Assessment and Plan (1) Acute stroke due to ischemia: Code(s): I63.9 - Cerebral infarction, unspecified Status: Acute Assessment and Plan: 02/01/24: Presented with confusion with history of CVA 3 months ago. Last known well was 24 hours ago, no tPA indicated. Patient does not have history of AFib NIH score was low Neurology was consulted Continue aspirin, Plavix, and rosuvastatin Head CT was negative for any acute infarct however shown chronic left frontal lobe and chronic posterior left temporal lobe infarcts. Head and neck CTA showed atherosclerotic plaque resulting in 40% stenosis of the left common carotid artery and 50% stenosis at the distal most right common carotid artery, occlusion of the origin of the left vertebral artery, extensive atherosclerotic calcified plaque along the carotid canal, the right internal carotid artery, and the bilateral carotid siphons. Continue neuro checks Echo with bubble study in the past was negative Continue cardiac monitoring (2) Vertebral artery stenosis: Code(s): I65.09 - Occlusion and stenosis of unspecified vertebral artery Status: Acute Assessment and Plan: As above (3) Hypertension: Qualifiers: Hypertension type: primary hypertension Qualified Code(s): I10 - Essential (primary) hypertension Code(s): I10 - Essential (primary) hypertension Status: Chronic Assessment and Plan: 02/01/24: Blood pressure ranging 100/65 to 178/63 Continue losartan and amlodipine (4) Diabetes: Qualifiers: Diabetes mellitus type: type 2 Diabetes mellitus 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 and HS Start diabetic diet Low-dose sliding scale insulin ordered Will continue metformin Hypoglycemic protocol in place Time Spent With Patient Time with patient: Greater than 35 minutes Subjective Date/time seen: 02/01/24 09:13 Interval history: This is a 63-year-old female who presented to the hospital on 01/29/2024 with confusion. Workup in the hospital included head CT which did not show any acute infarct however showed chronic infarcts in the left frontal lobe and posterior left temporal lobe. Chest x-ray shown minimal haziness in the left lung base. Head and neck CTA showed 40% stenosis of the left common carotid artery and 50% stenosis at the distal most right common carotid artery, occlusion of the origin of the left vertebral artery, extensive atherosclerotic calcified plaque along the carotid canal in the right internal carotid artery and at the bilateral carotid siphons, no evidence of thrombus. Brain MRI showed moderate-sized acute infarct at the posterior medial left temporal lobe and anterior left occipital lobe in the left posterior cerebral artery vascular distribution, chronic encephalomalacia with laminar necrosis and the lateral left occipital and in the right temporoparietal regions, moderate scattered nonspecific white matter T2 hyperintensity as seen with chronic small vessel ischemic disease. Cervical spine CT showed moderate cervical spondylosis. Initial labs showed a normal white blood cell count of 5.8, hemoglobin 11.3, INR 0.9, EGFR 58, blood sugar ranging 114-124. UA was obtained and showed trace urine blood, moderate urine squamous epithelial cells, otherwise normal. Respiratory panel was obtained and was negative for influenza a and B, RSV, COVID. Total cholesterol 152, triglycerides 60, LDL 70, HDL 61, hemoglobin A1c 6.2. Neurology was consulted and plans to continue with dual anti-platelet and statin. Patient has been seen
[2024-02-01 11:34] LABS: Glucose Point of Care 119 mg/dl (65-105)
--- NOTE | 2024-02-01 11:48 | PM.DS ---
DS: Admitting Diagnosis Discharge Date 02/01/24 Admitting Diagnosis Altered mental status Pneumonia DM HTN DS: Summary Hospital Course Reason for hospitalization: Altered mental status Pneumonia DM HTN Hospital Course: This is a 63-year-old female who presented to the hospital on 01/29/2024 with confusion. Workup in the hospital included head CT which did not show any acute infarct however showed chronic infarcts in the left frontal lobe and posterior left temporal lobe. Chest x-ray shown minimal haziness in the left lung base. Head and neck CTA showed 40% stenosis of the left common carotid artery and 50% stenosis at the distal most right common carotid artery, occlusion of the origin of the left vertebral artery, extensive atherosclerotic calcified plaque along the carotid canal in the right internal carotid artery and at the bilateral carotid siphons, no evidence of thrombus. Brain MRI showed moderate-sized acute infarct at the posterior medial left temporal lobe and anterior left occipital lobe in the left posterior cerebral artery vascular distribution, chronic encephalomalacia with laminar necrosis and the lateral left occipital and in the right temporoparietal regions, moderate scattered nonspecific white matter T2 hyperintensity as seen with chronic small vessel ischemic disease. Cervical spine CT showed moderate cervical spondylosis. Initial labs showed a normal white blood cell count of 5.8, hemoglobin 11.3, INR 0.9, EGFR 58, blood sugar ranging 114-124. UA was obtained and showed trace urine blood, moderate urine squamous epithelial cells, otherwise normal. Respiratory panel was obtained and was negative for influenza a and B, RSV, COVID. Total cholesterol 152, triglycerides 60, LDL 70, HDL 61, hemoglobin A1c 6.2. Neurology was consulted and plans to continue with dual anti-platelet and statin. Patient has been seen by PT and is ambulating without assistance. Patient is stable for discharge at this time. She will need to follow up with Neurology in 1 month and with her PCP in 1 week. Pneumonia was ruled out as patient does not have fever, increased WBC, and negative examination Final diagnosis: Acute CVA Status at Discharge Cognitive/behavioral status at discharge: Alert and oriented x4 Functional status at discharge: independent ambulation Overall status at discharge: patient is progressing back to baseline Time Spent with Patient Time attestation: Total time spent providing and/or coordinating discharge services: Time spent: Greater than 30 minutes Exam Narrative: General: In no acute distress, well nourished Head: atraumatic, no encephalopathy Eyes: EOMI, PERRLA, sclera clear, ENT: moist mucous membranes, nasal passages clear Neck: supple, no JVD, no adenopathy, trachea midline Cardiac: Normal S1 and S2. No murmur, gallops or friction rubs, peripheral pulses intact. Respiratory: Lungs clear to auscultation, no adventitious lung sounds, currently on room air Gastrointestinal: soft, non-distended, non-tender, normoactive bowel sounds. : voiding without difficulty. Extremities: moves all extremities well, no edema, good ROM, strength 5/5 Skin: clean, dry, intact. No wounds or lesions. Neuro: Alert and oriented x4, cranial nerves intact, no neuro deficits. Having issues with comprehension and finding the words to express what she is trying to say. Speech appears to be clear. Psych: normal mood, normal affect, interactive DS: Data Data Completed and Pending Completed studies during hospitalization: Cervical spine x-ray Brain MRI Head/neck CTA Chest x-ray Head CT Pending studies at discharge: None Labs on day of discharge: Labs from last 24 hours 02/01/24 02/01/24 01/31/24 11:30 07:30 19:27 POC Capillary Glucose 119 H 112 H 140 H Triglycerides Cholesterol LDL Cholesterol Direct HDL Direct Vitamin B12 Vitamin D 25-Hydroxy Folate TSH 01/31/24 01/31/24 01/31/24
[2024-02-01 14:00] VITALS: BP 157/83; PULSE 83; RESP 20; TEMP 36.3; O2SAT 100
== END 2024-02-01 14:45 | disposition home or self-care (01) ==
PROVIDERS: Physician Assistant; Psychiatry & Neurology Neurology; Student in an Organized Health Care Education/Training Program; Admitting Provider General Practice; PCP Internal Medicine; Visit Provider Nurse Practitioner Acute Care
DX: I63.432 Cerebral infarction due to embolism of left posterior cerebral artery (principal); J18.9 Pneumonia, unspecified organism; M05.89 Other rheumatoid arthritis with rheumatoid factor of multiple sites; I10 Essential (primary) hypertension; E11.9 Type 2 diabetes mellitus without complications; I69.311 Memory deficit following cerebral infarction; I69.398 Other sequelae of cerebral infarction; H53.9 Unspecified visual disturbance; Z87.891 Personal history of nicotine dependence; Z79.84 Long term (current) use of oral hypoglycemic drugs; Z79.82 Long term (current) use of aspirin
CPT/HCPCS: 36415; 70553; 72040; 80048; 80053; 80061; 82306; 82607; 82746; 82948; 83036; 84443; 85025; 97161; A9270; A9577; G0378; G0379

== ENCOUNTER 2024-02-09 07:48 | Outpatient (CLI) | payer OTHER, SELFPAY ==
--- NOTE | ~2024-02-09 | MM_ITS ---
EXAMINATION: MM diag elizabeth implant BI w moises HISTORY: Breast pain TECHNIQUE: Additional 3-D tomosynthesis images of the breasts were performed and synthetic 2-D images were generated. CAD analysis was submitted and interpreted. COMPARISON: Comparison to multiple prior studies sequentially, with oldest reviewed study dated 08/08. BREAST PARENCHYMAL COMPOSITION: Not dense: There are scattered areas of fibroglandular density. FINDINGS: There are bilateral subpectoral saline implants. The breasts are stable. There are no suspi cious masses, calcifications or architectural distortion in either breast to suggest malignancy. IMPRESSION: 1. No mammographic evidence for malignancy in either breast. 2. Routine yearly screening mammogram and regular clinical breast examination are recommended. BI-RADS Category 1: Negative Reviewed, dictated and finalized at location B. IMPRESSION: 1. No mammographic evidence for malignancy in either breast. 2. Routine yearly screening mammogram and regular clinical breast examination a re recommended. BI-RADS Category 1: Negative
== END 2024-02-09 07:49 ==
LOC: MICIMG 07:49
PROVIDERS: PCP Internal Medicine; Visit Provider Nurse Practitioner
DX: N64.4 Mastodynia (principal)
CPT/HCPCS: 77062; 77066; G0279

== ENCOUNTER 2024-03-25 04:39 | Observation (INO) | payer OTHER, SELFPAY ==
[2024-03-25] VITALS (52 sets, daily range): BP systolic 116–172; BP diastolic 61–90; PULSE 73–107; RESP 12–31; TEMP 35.7–36.9; O2SAT 94–99; BMI 23.4
--- NOTE | ~2024-03-25 | CT_ITS ---
CT ANGIOGRAM NECK AND HEAD History: Strokelike symptoms. Technique: Serial spiral axial images through the head and neck were obtained during arterial phase I V injection of 100 cc of Omnipaque 350. 3-D postprocessing and MIP images were then reconstructed on the remote workstation. Dose reduction technique was used on this scan by utilizing automated exposur e control and iterative reconstruction technique. The dose-length product (DLP) was 1102.66 mGy-cm. CTA neck findings: Right vertebral artery is patent, probable focal moderate to high-grade stenosis at the distal right vertebral artery with calcified plaque present. Left vertebral artery is either c ommon carotid, internal carotid, and external carotid arteries are patent. There is calcified plaque at the proximal right internal carotid artery with probable 80% focal stenosis. There is mixed soft a nd calcified plaque at the distal left common carotid artery/carotid bifurcation, probable high-grade stenosis at the proximal left external carotid artery. No significant stenosis of the left internal carotid artery evident. Markedly, diffusely hypoplastic versus occluded proximally. The proximal righ t internal carotid artery demonstrates focal 80% stenosis relative to the normal distal artery lumen diameter. The proximal left internal carotid artery demonstrates 0% stenosis relative to the normal d istal artery lumen diameter. CTA head findings: Basilar artery and posterior cerebral arteries are patent. Distal internal carotid arteries, middle cerebral arteries, anterior cerebral arteries are patent. There are atherosclerotic calcifications in the cavernous portions of the distal internal carotid arteries, with probable area s of moderate to high-grade stenosis bilaterally. No large vessel occlusion. No other stenosis identi fied. No aneurysm. Impression: 80% focal stenosis at the proximal right internal carotid artery. Marked, diffuse hypoplasia of the left vertebral artery versus proximal occlusion. Extensive atherosclerotic calcification of the cavernous portions of the distal internal carotid ni ry with areas of probable moderate to high-grade stenosis bilaterally. Reviewed, dictated and finalized at location M. Impression: 80% focal stenosis at the proximal right internal carotid artery. Marked, diffuse hypoplasia of the left vertebral artery versus proximal occlusi on. Extensive atherosclerotic calcification of the cavernous portions of the distal internal carotid artery with areas of probable moderate to high-grade stenosis bilaterally.
--- NOTE | ~2024-03-25 | MR_ITS ---
EXAMINATION: MR brain/brain stem wo/w con DATE: 03/28/2024 10:32 INDICATION: Generalized weakness. TECHNIQUE: Magnetic resonance imaging (MRI) of the brain and brainstem was performed without and with 10 mL Multihance intravenous contrast. Sequences included sagittal and axial T1-weighted SE, axial d iffusion-weighted FS SE, axial T2*-weighted GRE, axial T2-weighted FLAIR, and axial T2-weighted FSE. Postcontrast axial and coronal T1-weighted SE was obtained. Apparent diffusion coefficient (ADC) maps were created. COMPARISON: 01/30/2024 FINDINGS: Interval evolution of an early chronic moderate-sized infarct at the posterior medial left temporal a nd anterior aspect of the left occipital lobe in the left posterior cerebral artery vascular distribu tion which now demonstrates developing encephalomalacia and curvilinear T1 hyperintense laminar necro sis. Unchanged regions of encephalomalacia also with curvilinear T1 hyperintense laminar necrosis con sistent with chronic infarcts including a small region in the lateral left occipital lobe and moderat e sized region in the right temporal lobe and temporoparietal region. No intracranial hemorrhage or a bnormal intracranial mass lesion. There are scattered areas of nonspecific increased T2-weighted sign al intensity in the cerebral white matter, predominantly involving the deep and periventricular white matter. There are no intraparenchymal signal abnormalities seen on the other pulse sequences. The ve ntricles are symmetric and normal in size. There are no abnormal extra-axial fluid collections. Right vertebral artery is dominant. No definitive flow void in the diminutive left vertebral artery which could be due to either thrombosis or artifact the small size of the vessel. Flow voids are seen in th e remaining cerebral arteries on the T2-weighted sequences consistent with their expected patency. Sm all mucous retention cyst in the left maxillary sinus. Visualized orbits and soft tissues are unremar kable. There are no areas of abnormal enhancement on the post contrast images. IMPRESSION: 1. Interval evolution of a moderate-sized early chronic infarct at the posterior medial left temporal lobe and anterior left occipital lobe. 2. Unchanged chronic encephalomalacia with laminar necrosis in the lateral left occipital lobe and in the right temporal lobe and temporoparietal region. 3. Moderate scattered nonspecific white matter T2 hyperintensity likely sequela of chronic small vess el ischemic disease. 4. Dominant right vertebral artery with caliber of the left vertebral artery too small for definitive assessment for patency. Reviewed, dictated and finalized at location B. IMPRESSION: 1. Interval evolution of a moderate-sized early chronic infarct at the posterio r medial left temporal lobe and anterior left occipital lobe. 2. Unchanged chronic encephalomalacia with laminar necrosis in the lateral left occipital lobe and in the right temporal lobe and temporoparietal region. 3. Moderate scattered nonspecific white matter T2 hyperintensity likely sequela of chronic small vessel ischemic disease. 4. Dominant right vertebral artery with caliber of the left vertebral artery to o small for definitive assessment for patency.
--- NOTE | ~2024-03-25 | CT_ITS ---
CT head without contrast Indication: Confusion, history of stroke COMPARISON: 01/29/2024 Technique: Serial scans were obtained through the brain without the administration of contrast. Dose reduction technique was used on this scan by utilizing automated exposure control and iterative recon struction technique. The dose-length product (DLP) was 605.33 mGy-cm. Findings: There is no evidence of intracranial hemorrhage, mass lesion, or acute infarct. Chronic inf arcts are noted in the right frontoparietal junction region and left posterior temporal lobe. The catrachito tricles and subarachnoid spaces are dilated, consistent with mild atrophy. Low attenuation regions a re seen within the periventricular white matter bilaterally, likely representing changes from chronic microvascular ischemic disease. There is no evidence of edema, mass effect or midline shift. The v isualized paranasal sinuses and mastoid air cells are clear. Impression: No intracranial hemorrhage, mass, or acute infarct. Chronic infarcts, as above. Atrophy and chronic white matter changes, as above. Reviewed, dictated and finalized at location . Impression: No intracranial hemorrhage, mass, or acute infarct. Chronic infarcts, as above. Atrophy and chronic white matter changes, as above.
[2024-03-25 04:48] LABS: Glucose Point of Care 135 mg/dl (65-105)
--- NOTE | 2024-03-25 04:58 | ECG_ITS ---
Test Date: 2024-03-25 05:19:29 Measurements Intervals Riley Rate: 81 P: 46 IA: 158 QRS: 25 QRSD: 86 T: 32 QT: 385 QTc: 448 Interpretive Statements SINUS RHYTHM POSSIBLE LEFT ATRIAL ENLARGEMENT BASELINE ARTIFACT- I, II, AVR, AVL BORDERLINE ECG Compared to ECG 01/29/2024 11:02:33 NO SIGNIFICANT CHANGE Electronically Signed On 03-25-2024 06:57:11 CDT by Han Powers D.O.
--- NOTE | 2024-03-25 04:58 | ED.AMS ---
HPI - Altered Mental Status General Chief Complaint: Altered Mental Status <Quan Boykin MD - Last Filed: 03/25/24 06:59> Stated Complaint: Altered Mental Status <Quan Boykin MD - Last Filed: 03/25/24 06:59> Time Seen by Provider: 03/25/24 04:49 <Quan Boykin MD - Last Filed: 03/25/24 06:59> Source: patient and family <Quan Boykin MD - Last Filed: 03/25/24 06:59> Mode of arrival: wheelchair <Quan Boykin MD - Last Filed: 03/25/24 06:59> Limitations: altered mental status and physical limitation <Quan Boykin MD - Last Filed: 03/25/24 06:59> History of Present Illness HPI narrative: this is a 63-year-old female with a known history of stroke with several TIAs, history of hypertension rheumatoid arthritis and diabetes. Ed presents after she woke up this morning around 3:00 a.m. and felt off, had difficulty with ambulation and balance control with his present orders are new event by her . Patient went to bed at her baseline around 9:00 p.m. last night. Patient with a history of falls strokes currently on aspirin and Plavix and follows with Neurology in [place]. denies chest pain denies shortness of breath there is no nausea or vomiting, patient has been complaining of blurry vision, no fever chills no dysuria no abdominal pain or flank pain. <Quan Boykin MD - Last Filed: 03/25/24 06:59> MD complaint: altered mental status and confusion <Quan Boykin MD - Last Filed: 03/25/24 06:59> Onset (ago): hour(s) <Quan Boykin MD - Last Filed: 03/25/24 06:59> Timing confirmed by: spouse <Quan oBykin MD - Last Filed: 03/25/24 06:59> Severity: moderate <Quan Boykin MD - Last Filed: 03/25/24 06:59> Consistency of symptoms: constant <Quan Boykin MD - Last Filed: 03/25/24 06:59> Associated symptoms: denies other symptoms <Quan Boykin MD - Last Filed: 03/25/24 06:59> Related Data Home Medications: Home Medications Medication Instructions Recorded Confirmed metformin 500 mg tablet 500 mg PO DAILY 04/30/20 03/25/24 metoprolol tartrate 50 mg tablet 50 mg PO DAILY 04/30/20 03/25/24 losartan 25 mg tablet 100 mg PO DAILY 03/26/22 03/25/24 Aspir-81 81 mg DAILY 01/29/24 03/25/24 amlodipine 5 mg DAILY 01/29/24 03/25/24 leflunomide 20 mg tablet 20 mg PO DAILY 01/29/24 03/25/24 <Quan Boykin MD - Last Filed: 03/25/24 06:59> Allergies/Adverse Reactions: Allergies Allergy/AdvReac Type Severity Reaction Status Date / Time No Known Allergies Allergy Verified 03/25/24 04:57 <Quan Boykin MD - Last Filed: 03/25/24 06:59> Review of Systems Review of Systems: All systems reviewed & are unremarkable except as noted in HPI and below <Quan Boykin MD - Last Filed: 03/25/24 06:59> [facility] Past Medical History Medical History: Medical History Arthritis Bilateral hand pain Cerebrovascular accident (CVA) due to embolism of left posterior cerebral artery Diabetes Encounter for screening for other viral diseases Hypertension Inflammatory arthritis (~02/2020) Neck pain Rheumatoid arthritis Rheumatoid arthritis, seropositive, multiple sites <Quan Boykin MD - Last Filed: 03/25/24 06:59> Family History Family History: Family History Mother Hypertension Diabetes mellitus Father Hypertension Sibling Hypertension Diabetes mellitus <Quan Boykin MD - Last Filed: 03/25/24 06:59> Social History Social History: Social History Smoking packs per day: 0.5 Smoking cigarettes per day: 10.0 Years smoked: 40 Smoking pack-years: 20.00 Smoking status: Former smoker Tobacco type: cigarettes Alcohol intake: never Substance use: never Do You Feel
--- NOTE | 2024-03-25 05:07 | PC.NURSE ---
urine taken down to lab
--- NOTE | 2024-03-25 05:08 | PC.NURSE ---
transported to ct via stretcher
--- NOTE | 2024-03-25 05:15 | PC.NURSE ---
patient returned to room from CT, ekg in progress
[2024-03-25 05:21] LABS: Basophils Absolute Auto 0.12 K/mm3 (0.00-0.10); Basophils Percent Auto 2.2 % (0.0-1.0); Eosinophils Absolute Auto 0.39 K/mm3 (0.02-0.50); Eosinophils Percent Auto 7.1 % (1.0-6.0); Hematocrit 31.6 % (35.0-49.0); Hemoglobin 10.3 g/dL (12.0-15.0); INR 0.9; Immature Granulocyte Absolute 0.01 K/mm3 (0.00-0.00); Immature Granulocyte Percent A 0.2 % (0.0-0.0); Lymphocytes Absolute Auto 1.91 K/mm3 (1.10-4.50); Lymphocytes Percent Auto 34.6 % (18.0-42.0); Mean Corpuscular HGB Conc 32.6 g/dL (32-36); Mean Corpuscular Hemoglobin 28.1 pg (27.0-31.0); Mean Corpuscular Volume 86.3 fL (78.0-102.0); Monocytes Absolute Auto 0.69 K/mm3 (0.10-0.90); Monocytes Percent Auto 12.5 % (2.0-11.0); Neutrophils Percent Auto 43.4 % (50.0-70.0); Partial Thromboplastin Time 23.6 Sec (23.9-30.70); Platelet Count Result 208 K/mm3 (150-420); Prothrombin Time 10.3 Seconds (9.50-12.1); Red Blood Count 3.66 M/mm3 (4.20-5.40); Red Cell Distribution Width 13.5 % (11.6-14.4); White Blood Count 5.5 K/mm3 (4.8-10.8)
[2024-03-25 05:22] LABS: Alanine Aminotransferase 20 U/L (14-59); Albumin Level 3.3 g/dL (3.4-5.0); Alkaline Phosphatase 76 U/L (46-116); Anion Gap 10 mmol/L (4-12); Aspartate Amino Transferase 18 U/L (15-37); Bilirubin,Total 0.4 mg/dL (0.00-1.00); Blood Urea Nitrogen 9 mg/dL (7-18); Calcium 9.2 mg/dL (8.5-10.1); Carbon Dioxide 28 mmol/L (21-32); Chloride 101 mmol/L (98-108); Estimated CRCL calculation 43 ml/min; Estimated Glomerular Filt Rate 58; Glucose 128 mg/dL (70-99); Osmolality Calculated 288 mOsm/kg (285-295); Sodium 139 mmol/L (136-145)
[2024-03-25 05:30] LABS: Appearance Urine Sl Cloudy (Clear); Color Urine Yellow (Yellow); Glucose Urine UA Negative (Negative); Ketones Urine Negative (Negative); Protein Urine Negative (Negative); Specific Grav Ur 1.005 (1.010-1.020); pH Urine 7.5 (5.0-8.0)
[2024-03-25 05:31] LABS: Add Urine Microscopic? YES; Bacteria Urine Trace /hpf; Bilirubin Urine Negative (Negative); Blood Urine Trace (Negative); Leukocyte Esterase Ur 2+ LEU/UL (Negative); Nitrate Urine Negative (Negative); RBC Urine 0-2 /hpf (0-2); Squamous Epithelial Cell Urine Rare /hpf (Few); Urobilinogen Urine 0.2 mg/dL (0.2-1.0)
--- NOTE | 2024-03-25 05:53 | PC.NURSE ---
pt taken down to CT via stretcher for CTA
--- NOTE | 2024-03-25 06:06 | PC.NURSE ---
patient back in room, no requests at this time. at bedside updated.
[2024-03-25] MEDS: SODIUM CHLORIDE 0.9% IV 500 ML 999 ML IV CONT (06:33)
[2024-03-25] MEDS: KCL 20 MEQ/SW 100 ML 100 ML 50 MEQ IVPB (06:35)
--- NOTE | 2024-03-25 07:02 | PC.NURSE ---
report given to ROBERTO Leija
--- NOTE | 2024-03-25 11:04 | PC.NURSE ---
PT AGITATED REGARDING BED PLACEMENT AVAILABILITY WITH DR GREGG CANNON IN WITH PT AND . PER [facility], MRI IS AVAILABLE TOMORROW, DR ESCOBEDO NOTIFIED.
[2024-03-25] MEDS: ONDANSETRON INJ 4 MG/2 ML VIAL IV PUSH (12:44)
--- NOTE | 2024-03-25 13:50 | PC.NURSE ---
pt informed of admission to room 207. voiced understanding. pt to be transported in hospital bed to floor
--- NOTE | 2024-03-25 14:05 | ADMGEN ---
This patient, Senia Ruth, was admitted to 2nd Floor Room 207-1. Patient/family oriented to hospital policies and general routines including ID bracelet, bed and alarms, visiting hours, pain management, procedures, bathroom and other care routines, personal items, smoking policy, room service/diet, and visiting hours. Information on how to activate the Rapid Response Team has been discussed. Patient/Family are encouraged to report perceived risks to care and to ask questions if they do not understand what they are told or what they should do.
--- NOTE | 2024-03-25 17:45 | PC.NURSE ---
Patient reporting nose bleeding. Nurse assessed, bleeding very minimal with wiping/blowing nose. Patient reports nose feeling dry[facility]
--- NOTE | 2024-03-25 23:30 | PC.NURSE ---
Pt called to use the bathroom. Pt assisted to the bathroom with assist of one and she voide 200 ml of clear, yellow urine. Pt back to bed with assist of one and side rails up x2.
[2024-03-26] VITALS (8 sets, daily range): BP systolic 141–152; BP diastolic 74–82; PULSE 72–98; RESP 16–20; TEMP 36.1–36.3; O2SAT 95–97
--- NOTE | 2024-03-26 02:02 | PC.NURSE ---
Pt asleep and no signs of discomfort noted.
--- NOTE | 2024-03-26 04:16 | PC.NURSE ---
Pt asleep and no signs of discomfort noted. Side rails up x2 and call austin within reach.
--- NOTE | 2024-03-26 05:12 | PC.NURSE ---
Pt called to use the bathroom. Pt to the bathroom with assist of one and voided 250 ml of clear, yellow urine. Pt back to bed with standby assist of one. Side rails up x2 and call austin within reach.
--- NOTE | 2024-03-26 05:50 | PC.NURSE ---
ER called and said [facility] called from [place] and wanted to know the status of the pt and if she still needed to be transferred to their facility. Will notify [employer] to get more information.
--- NOTE | 2024-03-26 06:00 | PC.NURSE ---
IV Rocephin 1 gm hung and infusing as ordered.
--- NOTE | 2024-03-26 06:59 | PC.NURSE ---
Pt up to the bathroom with assist of one and voided 200 ml of clear, yellow urine. Pt back to bed with assist of one and side rails up x 2 and call austin within reach.
--- NOTE | 2024-03-26 09:13 | PM.IMHP ---
H&P: HPI History of Present Illness Date/Time: 03/26/24 09:13 Chief Complaint: Weakness, Stroke like s ymptoms Narrative: This is a 63 year old female that presented to the emergency room with weakness and not feeling right all over. On January 282023 patient has had a stroke resulting in memory loss. Patient currently on Plavix and aspirin for stroke prevention. Mr Faraz has quit smoking . Patient knew she was at the hospital but did not know why she was here. Patient at the time did not ambulate well and was weak currtnly complain of nausea which is constant for her nothing new. Patient was found to have a UTI and she is on Rocephin and will recieve 3 days of this antibioitics. Patien twas Hypokalemia in which it has been replaced and we will recheck labs this morning. WBC were noraml Protime was stable at 10.3 INR 0.9, sodium 139, glucose 128. Patient will have a MRI to rule out any new strokes however there are no new beds available for transfer. If no new stroke patient already has a neurologist we will have her follow up as a outpatient. . Patient already has outpatient physical therapy but we will have them evaluate her to see if she is in need of any new inpatient therapy. Patient symptoms that brought her in seems to have resolved and we will continue to monitor. Review of Systems Review of Systems: Weakness all over All systems reviewed & are unremarkable except as noted in HPI and below PMFSH Past Medical History Medical History Arthritis Bilateral hand pain Cerebrovascular accident (CVA) due to embolism of left posterior cerebral artery Diabetes Encounter for screening for other viral diseases Hypertension Inflammatory arthritis (~02/2020) Neck pain Rheumatoid arthritis Rheumatoid arthritis, seropositive, multiple sites Family History Family History Mother Hypertension Diabetes mellitus Father Hypertension Sibling Hypertension Diabetes mellitus Social History Social History Smoking packs per day: 1 Smoking cigarettes per day: 20.0 Years smoked: 40 Smoking pack-years: 40.00 Smoking status: Former smoker Tobacco type: cigarettes Alcohol intake: never Substance use: never Substance use type: does not use Do You Feel Safe in your Home?: Yes Lack of Transportation: No Lack of Food: Never True Current Housing: I Have Housing Concerned About Future Housing: No Difficulty Paying Gas/Electric Bills: No Difficulty Paying for Meds: No Currently Unemployed: No Education: High School Diploma/GED Difficulty w/ Childcare or Family Care: No Living arrangements: with family Occupation/Education: occupation Gender identity (if verbalized by the patient): Female Spiritual care concerns: No Meds Home Medications and Allergies Home Medications Medication Instructions Recorded Confirmed Type metformin 500 mg tablet 500 mg PO DAILY 04/30/20 03/25/24 History metoprolol tartrate 50 mg tablet 50 mg PO DAILY 04/30/20 03/25/24 History losartan 25 mg tablet 100 mg PO DAILY 03/26/22 03/25/24 History Aspir-81 81 mg DAILY 01/29/24 03/25/24 History amlodipine 5 mg DAILY 01/29/24 03/25/24 History leflunomide 20 mg tablet 20 mg PO DAILY 01/29/24 03/25/24 History clopidogrel 75 mg tablet 75 mg PO QAM #30 tabs 02/01/24 03/25/24 Rx gabapentin 300 mg capsule 300 mg PO Q8H PRN Muscle/Joint 02/01/24 03/25/24 Rx (Neurontin) Pain #90 caps Allergies Allergy/AdvReac Type Severity Reaction Status Date / Time No Known Allergies Allergy Verified 03/25/24 04:57 Vital Signs Vital Signs - 24 hr 03/25/24 09:38 03/25/24 09:25 03/25/24 09:30 Temperature Pulse Rate 85 75 76 Respiratory Rate 18 Blood Pressure 172/84 H Pulse Oximetry 95 95 Oxygen Delivery Room Air 03/25/24 09:31
[2024-03-26 09:28] LABS: Hematocrit 33.1 % (35.0-49.0); Hemoglobin 10.4 g/dL (12.0-15.0); Mean Corpuscular HGB Conc 31.4 g/dL (32-36); Mean Corpuscular Hemoglobin 27.3 pg (27.0-31.0); Mean Corpuscular Volume 86.9 fL (78.0-102.0); Mean Platelet Volume 10.1 fl (9.2-11.8); Platelet Count Result 213 K/mm3 (150-420); Red Blood Count 3.81 M/mm3 (4.20-5.40); Red Cell Distribution Width 13.8 % (11.6-14.4); White Blood Count 4.8 K/mm3 (4.8-10.8)
--- NOTE | 2024-03-26 09:29 | PC.NURSE ---
CHAPINCITO Talbert hospitalist at bedside to inform patient of plan & disposition based on results of MRI. at bedside. No complaints. assisted patient to bathroom. Awaiting call for MRI. Screening form completed.
[2024-03-26 09:46] LABS: Anion Gap 7 mmol/L (4-12); Blood Urea Nitrogen 7 mg/dL (7-18); Calcium 9.2 mg/dL (8.5-10.1); Carbon Dioxide 29 mmol/L (21-32); Chloride 103 mmol/L (98-108); Estimated CRCL calculation 39 ml/min; Estimated Glomerular Filt Rate 54; Glucose 171 mg/dL (70-99); Osmolality Calculated 290 mOsm/kg (285-295); Potassium 3.3 mmol/L (3.5-5.1); Sodium 139 mmol/L (136-145)
[2024-03-26] MEDS: METOPROLOL TARTRATE 50 MG TAB PO (10:29)
[2024-03-26] MEDS: LOSARTAN POTASSIUM 50 MG TABLET 100 MG PO (10:29)
[2024-03-26] MEDS: CLOPIDOGREL BISULFATE 75 MG TABLET PO (10:29)
[2024-03-26] MEDS: ASPIRIN 81 MG ENTERIC TABLET PO (10:29)
--- NOTE | 2024-03-26 11:25 | PC.NURSE ---
Telemetry removed for MRI
--- NOTE | 2024-03-26 11:29 | PC.NURSE ---
Pt off floor at this time for MRI scan
[2024-03-26] MEDS: amLODIPine BESYLATE 5 MG TABLET BY MOUTH (12:14)
[2024-03-26 12:16] LABS: Glucose Point of Care 118 mg/dl (65-105)
--- NOTE | 2024-03-26 12:19 | PC.NURSE ---
Pt returned from MRI, contrast received, fluids encouraged, telemetry replaced, assisted to chair for lunch.
[2024-03-26] MEDS: ONDANSETRON HCL ODT 4 MG TABLET PO (13:12)
--- NOTE | 2024-03-26 13:41 | PHAR ---
The patient's home med of Leflunomide 20mg has been verified.
--- NOTE | 2024-03-26 16:20 | PC.NURSE ---
pt and daughter rosario spoke with ivet over the phone, family has declined transfer to outside facility at this time. We are still waiting on mri to be read, machines are down and this is reported to take until thursday to fix. [facility] [employer] would like pt to be eval for PT prior to discharge, call out to [facility]. Pt reports she feels ok at this time but just feels off and she can't say exactly why. Will continue to monitor
[2024-03-26 16:32] LABS: Glucose Point of Care 124 mg/dl (65-105)
[2024-03-27] VITALS (9 sets, daily range): BP systolic 139–150; BP diastolic 71–83; PULSE 66–89; RESP 16–87; TEMP 35.7–36.6; O2SAT 96–98
[2024-03-27 00:21] LABS: Glucose Point of Care 134 mg/dl (65-105)
[2024-03-27] MEDS: ONDANSETRON HCL ODT 4 MG TABLET PO (06:09)
[2024-03-27 09:01] LABS: Glucose Point of Care 161 mg/dl (65-105)
[2024-03-27] MEDS: ASPIRIN 81 MG ENTERIC TABLET PO (09:25)
[2024-03-27] MEDS: LOSARTAN POTASSIUM 50 MG TABLET 100 MG PO (09:25)
[2024-03-27] MEDS: METOPROLOL TARTRATE 50 MG TAB PO (09:25)
[2024-03-27] MEDS: CLOPIDOGREL BISULFATE 75 MG TABLET PO (09:25)
[2024-03-27 09:26] LABS: Hematocrit 31.6 % (35.0-49.0); Mean Corpuscular HGB Conc 31.6 g/dL (32-36); Mean Corpuscular Hemoglobin 27.4 pg (27.0-31.0); Mean Corpuscular Volume 86.6 fL (78.0-102.0); Mean Platelet Volume 10.4 fl (9.2-11.8); Platelet Count Result 214 K/mm3 (150-420); Red Blood Count 3.65 M/mm3 (4.20-5.40); Red Cell Distribution Width 13.7 % (11.6-14.4); White Blood Count 5.3 K/mm3 (4.8-10.8)
[2024-03-27] MEDS: amLODIPine BESYLATE 5 MG TABLET BY MOUTH (09:26)
[2024-03-27 09:42] LABS: Alanine Aminotransferase 18 U/L (14-59); Albumin Level 3.2 g/dL (3.4-5.0); Alkaline Phosphatase 80 U/L (46-116); Anion Gap 10 mmol/L (4-12); Aspartate Amino Transferase 16 U/L (15-37); Bilirubin,Total 0.3 mg/dL (0.00-1.00); Blood Urea Nitrogen 10 mg/dL (7-18); Calcium 9.2 mg/dL (8.5-10.1); Carbon Dioxide 29 mmol/L (21-32); Chloride 99 mmol/L (98-108); Estimated CRCL calculation 38 ml/min; Estimated Glomerular Filt Rate 53; Glucose 149 mg/dL (70-99); Osmolality Calculated 288 mOsm/kg (285-295); Potassium 3.3 mmol/L (3.5-5.1); Sodium 138 mmol/L (136-145); Total Protein 6.9 g/dL (6.4-8.2)
--- NOTE | 2024-03-27 13:48 | P.PNIM_ITS ---
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 * playground monitor and telemetry continuously. * Blood pressure management. -Keep the systolic blood pressure more than 200 or diastolic more than 110. Then lower blood pressure by 15% within the 1st 24 hours. * MRI of the brain without contrast. * CTA with Extensive atherosclerotic calcification of the cavernous portions of the distal internal carotid artery with areas of probable moderate to high- grade stenosis bilaterally. 80% focal stenosis at the proximal right internal carotid artery. * Referral to a vascular surgeon for evaluation * PT/OT eval and treat. * Continues statins 40 mg q.day, aspirin 81 mg g q.day/Plavix (2) Rheumatoid arthritis: Code(s): M06.9 - Rheumatoid arthritis, unspecified Status: Acute Assessment and Plan: * Home medication resumed * Zofran for nausea from medication * follow-up with RA outpatient (3) Hypertension: Qualifiers: Hypertension type: primary hypertension Qualified Code(s): I10 - Essential (primary) hypertension Code(s): I10 - Essential (primary) hypertension Status: Chronic Assessment and Plan: * mild hypertension * allow for permissive hypertension * resumed home medications * BP per unit protocol (4) Diabetes: Qualifiers: Diabetes mellitus complication status: without complication Diabetes mellitus half-way insulin use: without half-way use Diabetes mellitus type: type 2 Qualified Code(s): E11.9 - Type 2 diabetes mellitus without complications Code(s): E11.9 - Type 2 diabetes mellitus without complications Status: Chronic Assessment and Plan: * Accu-Cheks a.c. HS * sliding scale insulin * hold oral diabetic medications * Hemoglobin A1c goal less than 7 * lipid panel pending * Diabetic diet * Optimize [place] inhibitors and statins. * Watch for hypoglycemia/hypoglycemic protocol ordered (5) Altered mental status: Qualifiers: Altered mental status type: unspecified Qualified Code(s): R41.82 - Altered mental status, unspecified Code(s): R41.82 - Altered mental status, unspecified Status: Acute Assessment and Plan: * Back to baseline * Likely secondary to TIA * UTI R/O Plan Code status: Full code per patient DVT prophylaxis: Lovenox Stress ulcer prophylaxis: INGRIS PT/OT notes: PT/OT Pending Disposition: patient continues admission to the medical unit for possible TIA versus stroke she was extensive stroke history. initially plan was to [facility] to [place] but there were no beds available patient's symptoms improved and at this has been requested to wait on MRI results. Will call over to vascular surgeon for input on CTA may need vascular surgery. should have MRI results tomorrow afte
--- NOTE | 2024-03-27 13:48 | PM.IMPN ---
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 cafeteria monitor and telemetry continuously. Blood pressure management. -Keep the systolic blood pressure more than 200 or diastolic more than 110. Then lower blood pressure by 15% within the 1st 24 hours. MRI of the brain without contrast. CTA with Extensive atherosclerotic calcification of the cavernous portions of the distal internal carotid artery with areas of probable moderate to high-grade stenosis bilaterally. 80% focal stenosis at the proximal right internal carotid artery. Referral to a vascular surgeon for evaluation PT/OT eval and treat. Continues statins 40 mg q.day, aspirin 81 mg g q.day/Plavix (2) Rheumatoid arthritis: Code(s): M06.9 - Rheumatoid arthritis, unspecified Status: Acute Assessment and Plan: Home medication resumed Zofran for nausea from medication follow-up with RA outpatient (3) Hypertension: Qualifiers: Hypertension type: primary hypertension Qualified Code(s): I10 - Essential (primary) hypertension Code(s): I10 - Essential (primary) hypertension Status: Chronic Assessment and Plan: mild hypertension allow for permissive hypertension resumed home medications BP per unit protocol (4) Diabetes: Qualifiers: Diabetes mellitus complication status: without complication Diabetes mellitus intermediate designer insulin use: without intermediate designer use Diabetes mellitus type: type 2 Qualified Code(s): E11.9 - Type 2 diabetes mellitus without complications Code(s): E11.9 - Type 2 diabetes mellitus without complications Status: Chronic Assessment and Plan: Accu-Cheks a.c. HS sliding scale insulin hold oral diabetic medications Hemoglobin A1c goal less than 7 lipid panel pending Diabetic diet Optimize [place] inhibitors and statins. Watch for hypoglycemia/hypoglycemic protocol ordered (5) Altered mental status: Qualifiers: Altered mental status type: unspecified Qualified Code(s): R41.82 - Altered mental status, unspecified Code(s): R41.82 - Altered mental status, unspecified Status: Acute Assessment and Plan: Back to baseline Likely secondary to TIA UTI R/O Plan Code status: Full code per patient DVT prophylaxis: Lovenox Stress ulcer prophylaxis: NA PT/OT notes: PT/OT Pending Disposition: patient continues admission to the medical unit for possible TIA versus stroke she was extensive stroke history. initially plan was to transfer to [place] but there were no beds available patient's symptoms improved and at this has been requested to wait on MRI results. Will call over to vascular surgeon for input on CTA may need vascular surgery. should have MRI results tomorrow afternoon. Time Spent With Patient Time with patient: 15 - 25 minutes Subjective Date/time seen: 03/27/24 13:48 Interval history: Admission: Medical Chart This is a 63 year old female that presented to the emergency room with weakness and not feeling right all over. On January 282023 patient has had a stroke resulting in memory loss. Patient currently on Plavix and aspirin for stroke prevention. Mr Faraz has quit smoking . Patient knew she was at the hospital but did not know why she was here. Patient at the time did not ambulate well and was weak currtnly complain of nausea which is constant for her nothing new. Patient was found to have a UTI and she is on Rocephin and will recieve 3 days of this antibioitics. Patien twas Hypokalemia in which it has been replaced and we will recheck labs this morning. WBC were normal Protime was stable at 10.3 INR 0.9, s
[2024-03-27 13:58] LABS: Glucose Point of Care 185 mg/dl (65-105)
[2024-03-27] MEDS: POTASSIUM CHLORIDE 20 MEQ ER TABLET 40 MEQ PO (16:06)
[2024-03-27] MEDS: FLUCONAZOLE 100 MG TABLET PO (16:07)
[2024-03-27] MEDS: ROSUVASTATIN 10 MG TABLET 20 MG PO (16:07)
[2024-03-27 16:44] LABS: Glucose Point of Care 140 mg/dl (65-105)
[2024-03-28] VITALS: BP 157/87; PULSE 77; RESP 16; TEMP 36.5; O2SAT 97
[2024-03-28 02:40] LABS: Glucose Point of Care 127 mg/dl (65-105)
[2024-03-28 04:00] VITALS: PULSE 81
[2024-03-28 05:23] LABS: Hematocrit 31.8 % (35.0-49.0); Hemoglobin 10.3 g/dL (12.0-15.0); Mean Corpuscular HGB Conc 32.4 g/dL (32-36); Mean Corpuscular Hemoglobin 28.1 pg (27.0-31.0); Mean Corpuscular Volume 86.6 fL (78.0-102.0); Mean Platelet Volume 10.2 fl (9.2-11.8); Platelet Count Result 212 K/mm3 (150-420); Red Blood Count 3.67 M/mm3 (4.20-5.40); Red Cell Distribution Width 13.8 % (11.6-14.4); White Blood Count 5.5 K/mm3 (4.8-10.8)
[2024-03-28 05:40] LABS: Alanine Aminotransferase 20 U/L (14-59); Albumin Level 3.3 g/dL (3.4-5.0); Alkaline Phosphatase 82 U/L (46-116); Anion Gap 8 mmol/L (4-12); Aspartate Amino Transferase 19 U/L (15-37); Bilirubin,Total 0.3 mg/dL (0.00-1.00); Blood Urea Nitrogen 8 mg/dL (7-18); Calcium 9.4 mg/dL (8.5-10.1); Carbon Dioxide 29 mmol/L (21-32); Chloride 101 mmol/L (98-108); Estimated CRCL calculation 40 ml/min; Estimated Glomerular Filt Rate 55; Glucose 130 mg/dL (70-99); Osmolality Calculated 286 mOsm/kg (285-295); Potassium 3.9 mmol/L (3.5-5.1); Sodium 138 mmol/L (136-145)
[2024-03-28] MEDS: ONDANSETRON HCL ODT 4 MG TABLET PO (06:50)
[2024-03-28 07:32] VITALS: PULSE 81
[2024-03-28 08:00] VITALS: BP 132/99; PULSE 86; RESP 20; TEMP 36; O2SAT 98
--- NOTE | 2024-03-28 08:12 | PHAR ---
VERIFIED PT.S HOME MED: LEFLUNOMIDE 20MG TABLET, TAKE 1 TABLET BY MOUTH DAILY.
[2024-03-28 09:10] VITALS: PULSE 93
[2024-03-28] MEDS: METOPROLOL TARTRATE 50 MG TAB PO (09:10)
[2024-03-28] MEDS: ROSUVASTATIN 10 MG TABLET 20 MG PO (09:10)
[2024-03-28] MEDS: CLOPIDOGREL BISULFATE 75 MG TABLET PO (09:10)
[2024-03-28] MEDS: LOSARTAN POTASSIUM 50 MG TABLET 100 MG PO (09:10)
[2024-03-28] MEDS: ASPIRIN 81 MG ENTERIC TABLET PO (09:11)
[2024-03-28] MEDS: ENOXAPARIN 40 MG/0.4 ML SYRINGE SUB-Q (09:11)
[2024-03-28] MEDS: amLODIPine BESYLATE 5 MG TABLET BY MOUTH (09:11)
[2024-03-28] MEDS: FLUCONAZOLE 100 MG TABLET PO (09:11)
[2024-03-28 12:12] LABS: Glucose Point of Care 120 mg/dl (65-105)
--- NOTE | 2024-03-28 12:55 | P.DS_ITS ---
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 * bus monitor and telemetry continuously. * Blood pressure management. -Keep the systolic blood pressure more than 200 or diastolic more than 110. Then lower blood pressure by 15% within the 1st 24 hours. * MRI of the brain without contrast. * CTA with Extensive atherosclerotic calcification of the cavernous portions of the distal internal carotid artery with areas of probable moderate to high- grade stenosis bilaterally. 80% focal stenosis at the proximal right internal carotid artery. * Referral to a vascular surgeon for evaluation * PT/OT eval and treat. * Continues statins 40 mg q.day, aspirin 81 mg g q.day/Plavix (2) Rheumatoid arthritis: Code(s): M06.9 - Rheumatoid arthritis, unspecified Status: Acute Assessment and Plan: * Home medication resumed * Zofran for nausea from medication * follow-up with RA outpatient (3) Hypertension: Qualifiers: Hypertension type: primary hypertension Qualified Code(s): I10 - Essential (primary) hypertension Code(s): I10 - Essential (primary) hypertension Status: Chronic Assessment and Plan: * mild hypertension * allow for permissive hypertension * resumed home medications * BP per unit protocol (4) Diabetes: Qualifiers: Diabetes mellitus type: type 2 Diabetes mellitus chcf insulin use: without superintendent terminal use Diabetes mellitus complication status: without complication Qualified Code(s): E11.9 - Type 2 diabetes mellitus without complications Code(s): E11.9 - Type 2 diabetes mellitus without complications Status: Chronic Assessment and Plan: * Accu-Cheks a.c. HS * sliding scale insulin * hold oral diabetic medications * Hemoglobin A1c goal less than 7 * lipid panel pending * Diabetic diet * Optimize [place] inhibitors and statins. * Watch for hypoglycemia/hypoglycemic protocol ordered (5) Altered mental status: Qualifiers: Altered mental status type: unspecified Qualified Code(s): R41.82 - Altered mental status, unspecified Code(s): R41.82 - Altered mental status, unspecified Status: Acute Assessment and Plan: * Back to baseline * Likely secondary to TIA * UTI R/O Plan Code status: Full code per patient Disposition: Discharged to home will have follow-up dr Farley and plan for referral to vascular surgeon DS: Summary Hospital Course Reason for hospitalization: transit ischemic attack Hospital Course: Admission: Medical Chart This is a 63 year old female that presented to the emergency room with weakness and not feeling right
--- NOTE | 2024-03-28 12:55 | PM.DS ---
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 vehicle monitor technician and telemetry continuously. Blood pressure management. -Keep the systolic blood pressure more than 200 or diastolic more than 110. Then lower blood pressure by 15% within the 1st 24 hours. MRI of the brain without contrast. CTA with Extensive atherosclerotic calcification of the cavernous portions of the distal internal carotid artery with areas of probable moderate to high-grade stenosis bilaterally. 80% focal stenosis at the proximal right internal carotid artery. Referral to a vascular surgeon for evaluation PT/OT eval and treat. Continues statins 40 mg q.day, aspirin 81 mg g q.day/Plavix (2) Rheumatoid arthritis: Code(s): M06.9 - Rheumatoid arthritis, unspecified Status: Acute Assessment and Plan: Home medication resumed Zofran for nausea from medication follow-up with RA outpatient (3) Hypertension: Qualifiers: Hypertension type: primary hypertension Qualified Code(s): I10 - Essential (primary) hypertension Code(s): I10 - Essential (primary) hypertension Status: Chronic Assessment and Plan: mild hypertension allow for permissive hypertension resumed home medications BP per unit protocol (4) Diabetes: Qualifiers: Diabetes mellitus type: type 2 Diabetes mellitus long chain quiller tender insulin use: without penitentiary use Diabetes mellitus complication status: without complication Qualified Code(s): E11.9 - Type 2 diabetes mellitus without complications Code(s): E11.9 - Type 2 diabetes mellitus without complications Status: Chronic Assessment and Plan: Accu-Cheks a.c. HS sliding scale insulin hold oral diabetic medications Hemoglobin A1c goal less than 7 lipid panel pending Diabetic diet Optimize [place] inhibitors and statins. Watch for hypoglycemia/hypoglycemic protocol ordered (5) Altered mental status: Qualifiers: Altered mental status type: unspecified Qualified Code(s): R41.82 - Altered mental status, unspecified Code(s): R41.82 - Altered mental status, unspecified Status: Acute Assessment and Plan: Back to baseline Likely secondary to TIA UTI R/O Plan Code status: Full code per patient Disposition: Discharged to home will have follow-up dr Farley and plan for referral to vascular surgeon DS: Summary Hospital Course Reason for hospitalization: transit ischemic attack Hospital Course: Admission: Medical Chart This is a 63 year old female that presented to the emergency room with weakness and not feeling right all over. On January 282023 patient has had a stroke resulting in memory loss. Patient currently on Plavix and aspirin for stroke prevention. Mr Ruth has quit smoking . Patient knew she was at the hospital but did not know why she was here. Patient at the time did not ambulate well and was weak currtnly complain of nausea which is constant for her nothing new. Patient was found to have a UTI and she is on Rocephin and will recieve 3 days of this antibioitics. Patien twas Hypokalemia in which it has been replaced and we will recheck labs this morning. WBC were normal Protime was stable at 10.3 INR 0.9, sodium 139, glucose 128. Patient will have a MRI to rule out any new strokes however there are no new beds available for transfer. If no new stroke patient already has a neurologist we will have her follow up as a outpatient. . Patient already has outpatient physical therapy but we will have them evaluate her to s
--- NOTE | 2024-03-28 13:50 | PC.NURSE ---
Discharge Instructions reviewed with patient and spouse, verbalized understanding. Patient taken off floor per wheelchair
--- NOTE | 2024-03-31 08:51 | PC.NURSE ---
discharge call back completed, cannot see neuro until may, sees dr moss thursday next week, states she is still weak, no questions about dc instructions
== END 2024-03-28 13:50 | disposition home or self-care (01) ==
LOC: CHSED 08:19 → CHS2ND 13:47
PROVIDERS: Emergency Medicine; Nurse Practitioner Family; Admitting Provider Internal Medicine; Emergency Provider Emergency Medicine; PCP Internal Medicine; Visit Provider Internal Medicine
DX: R90.82 White matter disease, unspecified (principal); I99.8 Other disorder of circulatory system; R41.82 Altered mental status, unspecified; I10 Essential (primary) hypertension; E11.9 Type 2 diabetes mellitus without complications; I69.311 Memory deficit following cerebral infarction; M05.89 Other rheumatoid arthritis with rheumatoid factor of multiple sites; Z79.84 Long term (current) use of oral hypoglycemic drugs; Z79.82 Long term (current) use of aspirin; Z87.891 Personal history of nicotine dependence; Z79.02 Long term (current) use of antithrombotics/antiplatelets
CPT/HCPCS: 36415; 70450; 70496; 70498; 70553; 80048; 80053; 81001; 82948; 85025; 85027; 85610; 85730; 87086; 93005; 96365; 96366; 96368; 96372; 96375; 97161; 97165; 99285; A9270; A9577; G0378; J0696; J1650; J2405; J3480; J7040; Q9967

== ENCOUNTER 2024-04-05 11:30 | Outpatient (RCR) | payer OTHER, SELFPAY ==
--- NOTE | 2024-02-10 10:56 | PTOPEVAL1 ---
Assessment and note entered by Quan Li Evaluation Information Assessment Status Evaluation Diagnosis CVA, left hemispheric ICD-10 Condition Codes (PT) M25.511 Onset 01/29/24 Subjective Information Pt. is present. He reports that she has had right shoulder pain since suffering her stroke . He states that pain is affecting her sleep. She describes pain in the area of the right upper trap. Pt. states that the pt. can be in tears. Pt. does have hx of lupus and RA, but has never had pain this severe. Pt. has been sedentary since the stroke, and pain limits her ability to be comfortable. She reports that her goal is to reduce her shoulder pain. Reported Pain Level Pain Score 9: Self Report Additional Pain Score Comments Pt. takes gabapentin and Aleve daily. Assessment PT Clinical Summary Pt. is a 63 year old female who enters the clinic due to developed right shoulder pain. Pt presentation is consistent with cervical radiculopathy on this date. She presents with mild right shoulder weakness, impaired cervical ROM, and pain on this date. Continued skilled PT is indicated in order to improve these areas to allow the pt. to achieve improved comfort for improved sleep habits and IADL performance. Plan of Care Interventions Electrical Stimulation,Hot Pack/Cold Pack,Manual Therapy,Mechanical Traction,Neuro Re-education, Patient/Caregiver Educati,Therapeutic Activities, Therapeutic Exercise PT Services Indicated Yes Treatment Frequency and 2x/week x 10 visits Duration These treatments will address the objective and functional deficits as defined above. The patient will be advanced safely and appropriately in order for the patient to progress towards his/her prior level of function. Additional exercises will be introduced and as well as a comprehensive home exercise program upon discharge, if needed, ?to ensure carryover of functional gains achieved in the clinic. This treatment plan has been reviewed and agreement upon by the patient.
--- NOTE | 2024-02-10 10:57 | OPREHPOC ---
Outpatient Therapy Plan of Care This is a Multidisciplinary Plan of Care that may contain components documented by all disciplines (PT, OT, and ST.) PT Problem 1 PT Problem #1 Knowledge Deficit PT Goal 1 Goal Pt. will be independent with a HEP addressing postural awareness and pain reduction. Target Visit 2 PT Problem 2 PT Problem #2 Impaired Range of Motion PT Goal 1 Goal Pt. will demonstrate improved right cervical rotation to 80 degrees to the right to improve visual field. Target Visit 10 PT Problem 3 PT Problem #3 Impaired Functional Mobil PT Goal 1 Goal Pt. will present with less than 40% limitation with the QUick DASH indicating significant functional improvement Pt. will report being able to sleep without pain disturbance.
--- NOTE | 2024-02-12 13:08 | PCPTNOTE ---
Addendum entered by Umm Lott, SANDI 02/12/24 13:13: Treatment date: 02/11/24 Original Note: On 02/12/24, the license pending COMPENSATION ADVISOR, [ Lucita Castellon], provided care and completed [facility] documentation on this patient. I have reviewed the license pending COMPENSATION ADVISOR's documentation and agree with the findings.
--- NOTE | 2024-02-12 16:07 | BUOTOPEVAL ---
Assessment and note entered by Leatha Enriquez, OT Evaluation Information Assessment Status Evaluation Diagnosis CVA Onset June 2023 Subjective Information The patient reports she does not have too many issues with memory and minimal with vision stating that it is blurry. Reported Pain Level Pain Score 7: Self Report Pain Score 0: Self Report Pain Score Mild Pain: Dickinson Reyna Pain Score 9: Self Report Additional Pain Score Comments Pt. takes gabapentin and Aleve daily. 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 The patient previously demonstrated WNL cognition, executive function, visual attention, figure ground/form consistency, and WNL visual field attention. The patient now demonstrates moderate difficulty with visual attention, executive functioning performing Trails B in 6 minutes with 7 mistakes, difficulty with form consistence, and significant R upper quadrant visual field cut. The patient requires skilled OT to address vision deficits and improve patient's executive functioning skills needed to maintain independence and safety with ADLs and IADLs. Plan of Care Interventions Therapeutic Exercise,Neuro Re-education, Therapeutic Activities,Cognitive Function,Sensory Integrative Techn,Self-Care/Home Management OT Services Indicated Yes Treatment Frequency and 2x/week for 10 visits. Duration These treatments will address the objective and functional deficits as defined above. The patient will be advanced safely and appropriately in order for the patient to progress towards his/her prior level of function. Additional exercises will be introduced and as well as a comprehensive home exercise program upon discharge, if needed, ?to ensure carryover of functional gains achieved in the clinic. This treatment plan has been reviewed and agreement upon by the patient.
--- NOTE | 2024-02-16 17:07 | BUSTOPEVAL1 ---
Assessment and note entered by Janna Voss, EXTRUSION ENGINEER Evaluation Information Assessment Status Evaluation ICD-10 Condition Codes (ST) I69.31,I69.32,I69.320 Subjective Information Patient was referred for a skilled ST evaluation due to difficulty with cognitive-communication deficits following a CVA on January 29, 2024. Prior to the CVA the patient was independent in all daily activities. Patient performed duties including; cleaning, cooking, laundry, medication management, managing schedule, driving, along with other tasks without assistance or difficulty. Since the CVA the patient has presented with difficulty in word retrieval, short and nursing home memory, visual deficits, and right shoulder pain. These deficits impact the patient's ability to perform activities of daily living without assistance resulting in frustration and lack of independence. The patient often has difficulty holding conversations due to difficulty with word finding and memory skills resulting in limited social interactions. Reported Pain Level Pain Score 0: Self Report Pain Score 0: Self Report Pain Score 8: Self Report Pain Score 7: Self Report Pain Score 0: Self Report Pain Score Mild Pain: Dickinson Reyna Pain Score 9: Self Report Additional Pain Score Comments Pt. takes gabapentin and Aleve daily. Assessment ST Clinical Summary Patient was referred for a skilled ST evaluation due to deficits with speech-language and cognitive skills post CVA on January 29, 2024. Patient and reported that the patient was independent in all activities of daily living prior to the stroke. Since the stroke the patient struggles with word retrieval, short and nursing home memory, auditory comprehension, reading comprehension and verbal expression skills impacting her ability to function independently resulting in frustration and increased dependence on others. The Mini- Mental State Examination was given with a score of 22/30 indicating a mild cognitive impairment. Through testing the patient presented with moderate deficits in auditory comprehension, reading comprehension, verbal expression, and memory skills. The patient presented with difficulty following complex directives, moderate and complex paragraph retention, reading comprehension at the complex sentence and paragraph level, functional reading skills, open ended speech, wh questions, confrontational naming, object function, and divergent naming. 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 Recommendation for treatment 2x/week for 10 visits to improve cognitive-communication deficits to facilitate improved independence in all activities of daily living with the least amount of assistance. Plan of Care Interventions Treatment of Speech,Treatment of Language, Treatment for Cognitive F Treatment Frequency and 2x/week for 10 visits Duration These treatments will address the objective and functional deficits as defined above. The patient will be advanced safely and appropriately in order for the patient to progress towards his/her prior level of function. Additional exercises will be introduced and as well as a comprehensive home exercise program upon discharge, if needed, ?to ensure carryover of functional gains achieved in the clinic. This treatment plan has been reviewed and agreement upon by the patient.
[2024-02-29 10:00] VITALS: O2SAT 75
--- NOTE | 2024-03-10 10:58 | OPREHPOC ---
Outpatient Therapy Plan of Care This is a Multidisciplinary Plan of Care that may contain components documented by all disciplines (PT, OT, and ST.) PT Problem 1 PT Problem #1 Knowledge Deficit PT Goal 1 Goal / Goal Update Pt. will be independent with a HEP addressing postural awareness and pain reduction. Target Visit 2 Progress Met PT Problem 2 PT Problem #2 Impaired Range of Motion PT Goal 1 Goal / Goal Update Pt. will demonstrate improved right cervical rotation to 80 degrees to the right to improve visual field. Target Visit 10 Progress Met PT Problem 3 PT Problem #3 Impaired Functional Mobil PT Goal 1 Goal / Goal Update Pt. will present with less than 40% limitation with the QUick DASH indicating significant functional improvement Pt. will report being able to sleep without pain disturbance. Progress Met OT Problem 1 OT Problem #1 Knowledge Deficit OT Goal 1 Goal / Goal Update The patient will demonstrate 100% knowledge and return demonstration for vision HEP needed to improve safety with ADLs. Target Visit 10 OT Problem 2 OT Problem #2 Impaired Visual Perceptio OT Goal 1 Goal / Goal Update The patient will demonstrate ability to visually scan group of 5 objects and verbalize name of items on page in order to increase visual recognition of objects in patient's environment. Target Visit 10 OT Problem 3 OT Problem #3 Impaired Visual Perceptio OT Goal 1 Goal / Goal Update The patient will demonstrate decreased visual field cut of R upper quadrant by demonstrating WNL assessment of R upper quadrant needed to engage in daily activities and maintain safety. Target Visit 10 OT Problem 4 OT Problem #4 Impaired Functional ADLs OT Goal 1 Goal / Goal Update The patient will demonstrate increased executive functioning and visual attention by completing Trails B in <100 seconds with less than 3 mistakes in order to maintain safety during homemaking tasks. Target Visit [address] Problem #[address] Goal 1 Goal / Goal Update 1. Patient and family will participate in home programming to facilitate improved carryover of skills to patient's environment. ST Problem 2 ST Problem #[address] Goal 1 Goal / Goal Update 1. Patient will demonstrate comprehension of temporal orientation skills with 90% accuracy and minimal cues. 2. Patient will complete recent memory tasks ( recalling words, paragraph retention) with 80% accuracy and minimal cues. 3. Patient will complete buttermaker memory tasks with 80% accuracy and minimal cues. Target Visit [address] Problem #[address] Goal 1 Goal / Goal Update 1. Patient will complete reading comprehension tasks at the sentence and paragraph level with 80% accuracy and minimal cues. 2. Patient will complete functional reading tasks with 90% accuracy and minimal cues. Target Visit [address] Problem #[address] Goal 1 Goal / Goal Update 1. Patient will complete word finding tasks through (open ended speech, wh questions, confrontational naming, object function) with 80% accuracy and minimal cues. 2. Patient will complete convergent/divergent naming tasks (12+ items) with 80% accuracy and minimal cues. Target Visit 10
--- NOTE | 2024-03-10 10:58 | PTOPDC ---
Assessment and note entered by Yeni Nina, PT Evaluation Information Assessment Status Discharge Diagnosis CVA, L hemispheric ICD-10 Condition Codes (PT) M25.511 Onset 01/29/24 Subjective Information Senia Ruth reports her right shoulder and neck have been doing better and she is no longer having pain. She does not notice limitations in her ability to bathe, groom her hair, reach overhead, turn her head, or sleep anymore. Reported Pain Level Pain Score 0: Self Report Assessment PT Clinical Summary Senia Ruth has completed 10 skilled PT visits for right shoulder and neck pain following a CVA. She reports her right shoulder and neck have been pain free for the last 2 weeks and she is not having limitations with her daily activities due to the shoulder and neck. She objectively demonstrates improved cervical and right shoulder AROM to functional ranges, improved right shoulder strength, and negative special tests for shoulder or cervical pathology. She has met all PT goals and will be discharged to an independent [facility]. Plan of Care PT Services Indicated No
--- NOTE | 2024-03-23 14:47 | BUOTOPEVAL ---
Assessment and note entered by Leatha Enriquez, OT Evaluation Information Assessment Status Progress Diagnosis CVA Onset June 2023 Subjective Information The patient reports she does not have too many issues with memory and minimal with vision stating that it is blurry. Reported Pain Level Pain Score 0: Self Report Pain Score 0: Self Report Pain Score 0: Self Report Pain Score 0: Self Report Pain Score 0: Self Report Pain Score 0: Self Report Pain Score 0: Self Report Pain Score 0: Self Report Pain Score 0: Self Report Pain Score 0: Self Report Pain Score 0: Self Report Pain Score 0: Self Report Pain Score 0: Self Report Pain Score No Pain: Dickinson Reyna Pain Score 2: Self Report Pain Score 0: Self Report Pain Score 0: Self Report Pain Score 2: Self Report Pain Score 2: Self Report Pain Score 0: Self Report Pain Score 4: Self Report Pain Score 0: Self Report Pain Score 0: Self Report Pain Score 8: Self Report Pain Score 7: Self Report Pain Score 0: Self Report Pain Score Mild Pain: Dickinson Reyna Pain Score 9: Self Report Additional Pain Score Comments reports having stomach upset and nausea Additional Pain Score Comments Pt. takes gabapentin and Aleve daily. Assessment OT Clinical Summary The patient demonstrates significant progress in naming objects within her environment with decreased time and difficulty and decrease in visual field cut resulting in increased safety during daily tasks. The patient continues to demonstrate difficulty with visual attention and executive functioning skills that affects her ability to perform daily tasks and return to normal routine following stroke. Therapist added IADL goal to address laundry as patient used to complete laundry tasks at home and to continue to work on executive function skills and visual attention due to minimal progress since SOC. Plan of Care Interventions Therapeutic Exercise,Neuro Re-education, Therapeutic Activities,Cognitive Function,Sensory Integrative Techn,Self-Care/Home Management OT Services Indicated Yes Treatment Frequency and 2x/week for 10 visits. Duration These treatments will address the objective and functional deficits as defined above. The patient will be advanced safely and appropriately in order for the patient to progress towards his/her prior level of function. Additional exercises will be introduced and as well as a comprehensive home exercise program upon discharge, if needed, ?to ensure carryover of functional gains achieved in the clinic. This treatment plan has been reviewed and agreement upon by the patient.
--- NOTE | 2024-03-29 14:41 | PCSTNOTE ---
Patient called & cancelled scheduled appointment this date due to being in the hospital.
--- NOTE | 2024-03-31 11:27 | STOPPROG ---
Assessment and note entered by Janna Voss, INFORMATICS APPLICATION ANALYST Evaluation Information Assessment Status Progress ICD-10 Condition Codes (ST) I69.31,I69.32,I69.320 Onset January 29, 2024 Subjective Information Patient was referred for a skilled ST evaluation due to difficulty with cognitive-communication deficits following a CVA on January 29, 2024. Prior to the CVA the patient was independent in all daily activities. Patient performed duties including; cleaning, cooking, laundry, medication management, managing schedule, driving, along with other tasks without assistance or difficulty. Since the CVA the patient has presented with difficulty in word retrieval, short and buttermaker memory, visual deficits, and right shoulder pain. These deficits impact the patient's ability to perform activities of daily living without assistance resulting in frustration and lack of independence. The patient often has difficulty holding conversations due to difficulty with word finding and memory skills resulting in limited social interactions. Patient was recently hospitalized less than a week ago with increased dizziness, feeling light headed, and difficulty walking. Since returning home patient has been feeling really down and she reported that all she wants to do at home is scream and cry. Assessment ST Clinical Summary Patient was referred for a skilled ST evaluation due to deficits with speech-language and cognitive skills post CVA on January 29, 2024. Patient and reported that the patient was independent in all activities of daily living prior to the stroke. Since the stroke the patient struggles with word retrieval, short and senior living memory, auditory comprehension, reading comprehension and verbal expression skills impacting her ability to function independently resulting in frustration and increased dependence on others. The patient was recently hospitalized less than a weak ago with symptoms of; dizziness, light headedness, and difficulty walking. They reported that testing was completed and it did not indicate another CVA or TIA at that time. Patient is scheduled to be seen with her primary physician on 04-05-24 to decide the plan and attempt to get the patient into a neurologist as soon as possible. The Mini- Mental State Examination was given during the session this date with a score of 23/30 indicating a mild cognitive impairment (previously given on 02-16-24 with a score of 22/30). Through testing the patient continues to present with moderate deficits in auditory comprehension, reading comprehension, verbal expression, and memory skills. The patient presents with difficulty following complex directives, moderate and complex paragraph retention, reading comprehension at the complex sentence and paragraph level, functional reading skills, open ended speech, wh questions, confrontational naming, object function, and divergent naming. 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 Recommendation for treatment 2x/week for 10 visits to improve cognitive-communication deficits to facilitate improved independence in all activities of daily living with the least amount of assistance. Plan of Care Interventions Treatment of Speech,Treatment of Language, Treatment for Cognitive F ST Services Indicated Yes Treatment Frequency and 2x/week for 10 visits Duration These treatments will address the objective and functional deficits as defined above. The patient will be advanced safely and appropriately in order for the patient to progress towards his/her prior level of function. Additional exercises will be introduced and as well as a comprehensive home exercise program upon discharge, if needed, ?to ensure carryover of functional gains achieved in the clinic. This treatment plan has been reviewed and agreement upon by the patient.
--- NOTE | 2024-04-07 10:25 | PCSTNOTE ---
Patient did not arrive to session this date and was called. He reported that they were currently in the ER at [facility] and he is worried that she may be having another stroke.
--- NOTE | 2024-04-11 12:52 | PCSTNOTE ---
Patient's appointment was cancelled for this date along with tomorrow. Patient was recently in the ER for a potential stroke.
--- NOTE | 2024-05-12 17:02 | BUSTOPDC ---
Assessment and note entered by JOSHUA Mendoza Evaluation Information Assessment Status Discharge - Pt Not Presen ICD-10 Condition Codes (ST) I69.31,I69.32,I69.320 Subjective Information Patient was referred for a skilled ST evaluation due to difficulty with cognitive-communication deficits following a CVA on January 29, 2024. Prior to the CVA the patient was independent in all daily activities. Patient performed duties including; cleaning, cooking, laundry, medication management, managing schedule, driving, along with other tasks without assistance or difficulty. Since the CVA the patient has presented with difficulty in word retrieval, short and retirement memory, visual deficits, and right shoulder pain. These deficits impact the patient's ability to perform activities of daily living without assistance resulting in frustration and lack of independence. The patient often has difficulty holding conversations due to difficulty with word finding and memory skills resulting in limited social interactions. Patient was hospitalized a few days prior to the last session seen on 04-05-24 with increased dizziness, feeling light headed, and difficulty walking. Patient was last treated on 04-05-24 and was then discharged due to another CVA resulting in hospitalization. Discharge at this time. Reported Pain Level Pain Score 0: Self Report Pain Score 0: Self Report Pain Score 0: Self Report Pain Score 0: Self Report Pain Score 0: Self Report Pain Score 0: Self Report Pain Score 0: Self Report Pain Score 0: Self Report Pain Score 0: Self Report Pain Score 0: Self Report Pain Score 0: Self Report Pain Score 0: Self Report Pain Score 0: Self Report Pain Score 0: Self Report Pain Score 0: Self Report Pain Score 0: Self Report Pain Score 0: Self Report Pain Score 0: Self Report Pain Score 0: Self Report Pain Score No Pain: Dickinson Reyna Pain Score 2: Self Report Pain Score 0: Self Report Pain Score 0: Self Report Pain Score 2: Self Report Pain Score 2: Self Report Pain Score 0: Self Report Pain Score 4: Self Report Pain Score 0: Self Report Pain Score 0: Self Report Pain Score 8: Self Report Pain Score 7: Self Report Pain Score 0: Self Report Pain Score Mild Pain: Dickinson Reyna Pain Score 9: Self Report Additional Pain Score Comments Patient continues to complain of nausea frequently which impacts her ability to eat food due to poor appetite. Additional Pain Score Comments reports having stomach upset and nausea Additional Pain Score Comments Pt. takes gabapentin and Aleve daily. Assessment ST Clinical Summary Patient was referred for a skilled ST evaluation due to deficits with speech-language and cognitive skills post CVA on January 29, 2024. Patient and reported that the patient was independent in all activities of daily living prior to the stroke. Since the stroke the patient struggles with word retrieval, short and retirement memory, auditory comprehension, reading comprehension and verbal expression skills impacting her ability to function independently resulting in frustration and increased dependence on others. The patient was recently hospitalized prior to last treatment session on 04-05-24 with symptoms of; dizziness, light headedness, and difficulty walking. They reported that testing was completed and it did not indicate another CVA or TIA at that time. Patient is scheduled to be seen with her primary physician on 04-05-24 to decide the plan and attempt to get the patient into a neurologist as soon as possible. The Mini-Mental State Examination was given during the session on with a score of 23/30 indicating a mild cognitive impairment (previously given on 02-16-24 with a score of 22/30). Through testing the patient continues to present with moderate deficits in auditory comprehension, reading comprehension, verbal expression, and memory skills. The patient presents with difficulty following complex directives, moderate and complex paragraph retention, reading comprehension at the complex sentence and paragraph level, functional reading skills, open ended speech, wh questions, confrontational naming, object function, and divergent naming. Patient's last treatment session was on 04-05-24 and was discharged due to another CVA resulting in hospitalization. Plan of Care Interventions Treatment of Speech,Treatment of Language, Treatment for Cognitive F Treatment Frequency and Discharge Duration
== END 2024-05-10 23:59 | disposition home or self-care (01) ==
LOC: CHSST 11:30
PROVIDERS: Visit Provider Internal Medicine
DX: I69.312 Visuospatial deficit and spatial neglect following cerebral infarction (principal); I69.328 Other speech and language deficits following cerebral infarction; M25.511 Pain in right shoulder
CPT/HCPCS: 92507; 92523; 96125; 97014; 97110; 97140; 97161; 97166; 97530; 97535; 97750; G0283

== ENCOUNTER 2024-04-07 06:38 | Inpatient (IN) | payer OTHER, SELFPAY ==
[2024-04-07] VITALS (12 sets, daily range): BP systolic 125–164; BP diastolic 69–95; PULSE 78–98; RESP 11–18; TEMP 36.3–36.8; O2SAT 97–100
--- NOTE | ~2024-04-07 | CT_ITS ---
EXAMINATION: CTA BRAIN/CAROTID DATE: 04/07/2024 08:00 INDICATION: Altered mental status and weakness. Right-sided headache and neck pain. TECHNIQUE: Computed tomographic angiography (CTA) of the head and neck was performed with 100 mL Omni paque-350 intravenous contrast. Multiplanar reconstructions and maximum intensity projection 3D-recon structions of the carotid arteries and of the intracranial arteries were created by the technologist on a separate workstation. Precontrast CT of the head was also obtained. Automated exposure control and iterative reconstruction technique were employed.The dose-length product was 1534.23 mGy-cm. COMPARISON: Head CT and brain and carotid CT angiogram dated 03/25/2024 and brain MR dated 03/26/2024 FINDINGS: Carotid arteries: Visualized aortic arch is normal in caliber with small amount of nonhemodynamically significant ather osclerotic plaque and no dissection. There is atherosclerotic plaque at the great vessels arising fro m the arch without hemodynamically significant stenosis. There is 40% stenosis of the right carotid b ulb relative to normal distal artery lumen diameter (NASCET criteria). There is atherosclerotic plaqu e with 0% stenosis of the left carotid bulb relative to normal distal artery lumen diameter. The righ t vertebral artery is dominant. The left vertebral artery appears occluded at its origin reconstituti ng with minimal left contrast seen within the atretic mid to distal left vertebral artery. Mild emphy sema with an pleural parenchymal scarring at the bilateral apices. Cervical soft tissues are unremark able. Moderate to severe cervical spondylosis. Head: Unchanged moderate-sized region of encephalomalacia at the posterior medial left temporal lobe and an terior aspect of the left occipital lobe consistent with chronic infarct in the left posterior cerebr al vascular distribution. Additional unchanged moderate-sized region of encephalomalacia consistent w ith old infarct in the right temporal lobe and temporoparietal region. Unchanged small old infarct in the left frontal lobe. No acute intracranial hemorrhage, acute infarction or abnormal extra axial fl uid collection. Ventricles are normal and symmetric. No mass/mass effect. No abnormally enhancing bra in lesions on the postcontrast imaging. The orbits, paranasal sinuses and mastoid air cells are britni l. Intracranial arteries Right vertebral artery is dominant with small focus of atherosclerotic plaque along the intracranial portion of the artery with moderate 50-70% stenosis. The left vertebral artery is atretic with interm ittent minimal contrast seen along its course. Atherosclerotic plaque at the bilateral carotid siphon s and along the petrous portion of the bilateral internal carotid arteries with <50% stenosis on the left. On the right there is a moderate 50-70% stenosis at the lacerum segment of the right internal c arotid artery. There is no hemodynamically significant stenosis in the basilar artery. There are no a neurysms identified. Both A1 and P1 segments are patent. There is a severe, >70% stenosis at the dis krystal right P1 segment. Cerebral arterial arborization appears symmetric. IMPRESSION: 1. 40% stenosis of the right carotid bulb relative to normal distal artery lumen diameter (NASCET cri teria). 2. 0% stenosis of the left carotid bulb relative to normal distal artery lumen diameter. 3. 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 4. Moderate, 50-70% stenosis at the intracranial right vertebral artery. 5. Extensive atherosclerotic calcifications throughout the intracranial portions of the bilateral int ernal carotid arteries with moderate stenosis at the lacerum segment of the right internal carotid ar sowmya. 6. Severe, >70% stenosis at the distal right P1 segment. 7. Moderate sized old infarcts at the posterior medial left temporal lobe and an
--- NOTE | ~2024-04-07 | MR_ITS ---
EXAMINATION: MR brain/brain stem wo/w con DATE: 04/07/2024 16:11 INDICATION: Stroke TECHNIQUE: Magnetic resonance imaging (MRI) of the brain and brainstem was performed without and with 15 mL Multihance intravenous contrast. Sequences included sagittal and axial T1-weighted SE, axial d iffusion-weighted FS SE, axial 3D SWAN, axial T2*-weighted GRE, axial T2-weighted FLAIR, and axial T2 -weighted FSE. Postcontrast axial and coronal T1-weighted SE was obtained. Apparent diffusion coeffic ient (ADC) maps were created. COMPARISON: None. FINDINGS: New small region of restricted diffusion consistent with acute infarct in the pericallosal left front al lobe. Additional new large region of restricted diffusion in the medial right temporal and occipi krystal lobes consistent with acute infarct in the right posterior cerebral artery vascular distribution. This relatively symmetric with the evolving early chronic infarct at the medial left temporal and oc cipital lobes. Chronic infarcts with encephalomalacia and curvilinear T1 hyperintense laminar necrosi s in the left occipital lobe and right temporal parietal region. There is an additional small old inf arct in the right cerebellar hemisphere. No intracranial hemorrhage or abnormal intracranial mass les ion. There are scattered areas of nonspecific increased T2-weighted signal intensity in the cerebral white matter, predominantly involving the deep and periventricular white matter. The ventricles are symmetric and normal in size. There are no abnormal extra-axial fluid collections. Flow voids are see n in the cerebral arteries on the T2-weighted sequences consistent with their expected patency. The r ight vertebral artery is dominant with a diminutive left vertebral artery. Small mucous retention cys t in the left maxillary sinus. Visualized orbits and soft tissues are unremarkable. There are no area s of abnormal enhancement on the post contrast images. IMPRESSION: 1. Acute infarct involving the medial right temporal and occipital lobes in the right posterior cereb ral artery vascular distribution. 2. Unchanged chronic infarct with laminar necrosis in the lateral left occipital and in the right tem poroparietal regions, small old right cerebellar infarct and early chronic infarct at the medial left temporal and occipital lobes in the left posterior cerebral artery vascular distribution 3. Moderate scattered nonspecific white matter T2 hyperintensity likely sequela of chronic small vess el ischemic disease. Reviewed, dictated and finalized at location A. IMPRESSION: 1. Acute infarct involving the medial right temporal and occipital lobes in the right posterior cerebral artery vascular distribution. 2. Unchanged chronic infarct with laminar necrosis in the lateral left occipita l and in the right temporoparietal regions, small old right cerebellar infarct and early chronic infarct at the medial left temporal and occipital lobes in th e left posterior cerebral artery vascular distribution 3. Moderate scattered nonspecific white matter T2 hyperintensity likely sequela of chronic small vessel ischemic disease.
--- NOTE | 2024-04-07 06:53 | ECG_ITS ---
Test Date: 2024-04-07 06:56:50 Measurements Intervals Brick Rate: 84 P: 67 CA: 151 QRS: 51 QRSD: 81 T: 42 QT: 405 QTc: 479 Interpretive Statements SINUS RHYTHM POSSIBLE LEFT ATRIAL ENLARGEMENT T WAVE ABNORMALITY IN ANTERIOR LEADS- CONSIDER ISCHEMIA BASELINE ARTIFACT- I, II, III, AVR, AVL, AVF, V1-V6 ABNORMAL ECG Compared to ECG 03/25/2024 05:19:29 T-wave abnormality now present Possible ischemia now present Electronically Signed On 04-07-2024 08:01:37 CDT by Han Powers D.O.
[2024-04-07 07:01] LABS: Glucose Point of Care 148 mg/dl (65-105)
--- NOTE | 2024-04-07 07:11 | ED.AMS ---
HPI - Altered Mental Status General Chief Complaint: Altered Mental Status Stated Complaint: left side weakness Time Seen by Provider: 04/07/24 06:57 History of Present Illness HPI narrative: 63-year-old female present to the emergency department for evaluation for altered mental status. Patient does have a prior history of CVA in January. Patient's states that he went into the bedroom and found her lying on the ground and patient was confused. states the patient is confused at baseline but that he thought she was more confused. Patient denies any pain or injury. Related Data Home Medications Medication Instructions Recorded Confirmed losartan 25 mg tablet 100 mg PO DAILY 03/26/22 04/07/24 Aspir-81 81 mg PO DAILY 01/29/24 04/07/24 leflunomide 20 mg tablet 20 mg PO DAILY 01/29/24 04/07/24 rosuvastatin 20 mg tablet 40 mg PO DAILY 03/27/24 04/07/24 verapamil 180 mg tablet,extended 180 mg PO DAILY 04/07/24 04/07/24 release Allergies Allergy/AdvReac Type Severity Reaction Status Date / Time No Known Allergies Allergy Verified 04/07/24 13:52 Review of Systems Review of Systems: All systems reviewed & are unremarkable except as noted in HPI and below PMFSH Past Medical History Medical History Arthritis Bilateral hand pain Cerebrovascular accident (CVA) due to embolism of left posterior cerebral artery Diabetes Encounter for screening for other viral diseases Hypertension Inflammatory arthritis (~02/2020) Neck pain Rheumatoid arthritis Rheumatoid arthritis, seropositive, multiple sites Family History Family History Mother Hypertension Diabetes mellitus Father Hypertension Sibling Hypertension Diabetes mellitus Social History Social History Smoking packs per day: 1 Smoking cigarettes per day: 20.0 Years smoked: 40 Smoking pack-years: 40.00 Smoking status: Former smoker Tobacco type: cigarettes Alcohol intake: never Substance use: never Substance use type: does not use Do You Feel Safe in your Home?: Yes Lack of Transportation: No Lack of Food: Never True Current Housing: I Have Housing Concerned About Future Housing: No Difficulty Paying Gas/Electric Bills: No Difficulty Paying for Meds: No Currently Unemployed: No Education: High School Diploma/GED Difficulty w/ Childcare or Family Care: No Living arrangements: with family Occupation/Education: occupation Gender identity (if verbalized by the patient): Female Spiritual care concerns: No Exam Narrative: APPEARANCE: Well appearing, no pain, no distress, well-nourished. HEAD: normocephalic, atraumatic. EYES: PERRLA/EOMI, conjunctivae clear. NOSE: Normal no drainage EARS:TMS clear with good light reflex. THROAT: Pharynx clear, no exudate. NECK: Supple. No adenopathy, no masses. RESPIRATORY: Airway patent, respirations nonlabored. Clear to auscultation bilaterally, no rales, rhonchi, wheezing. CARDIOVASCULAR: Regular rate and rhythm without murmurs rubs or gallops. ABDOMINAL: Soft, nontender, nondistended, normal bowel sounds MUSCULOSKELETAL: Moves all extremities. Strength/ROM intact, No edema, No calf tenderness. NEURO: Alert. Cranial nerves II through XII intact. Good gait. Good coordination. Moving all limbs equally. Patient does report vision changes but is unable to participate in the exam SKIN: Warm, dry. Normal Color Course Course Emergency Course: Patient was admitted for possible underlying urinary tract infection altered mental status due to possible CVA. Neurology was consulted MRI and EEG were ordered. Patient and family are comfortable with plan for admission Vital Signs Vital signs: Vital Signs Temperature 98.2 F 04/07/24 06:39 Pulse Rate 88 04/07/24 06:39 Respiratory Rate 14 04/07
[2024-04-07 07:21] LABS: Basophils Percent Auto 1.7 % (0.2-1.2); Eosinophils Percent Auto 1.1 % (0-4.4); Hematocrit 32.7 % (37.0-47.0); Hemoglobin 10.3 g/dL (12.0-15.0); Lymphocytes Absolute Auto 0.97 K/mm3 (0.9-3.2); Lymphocytes Percent Auto 20.4 % (18.3-44.2); Mean Corpuscular HGB Conc 31.5 g/dl (32-36); Mean Corpuscular Hemoglobin 27.5 pg (26-34); Mean Corpuscular Volume 87.4 fl (80-100); Mean Platelet Volume 10.4 fl (7.4-10.4); Monocytes Absolute Auto 0.5 K/mm3 (0.1-0.6); Monocytes Percent Auto 11.3 % (2.6-8.5); Neutrophils Absolute Auto 3.1 K/mm3 (1.3-6.7); Neutrophils Percent Auto 65.5 % (45.5-73.1); Platelet Count Result 194 k/mm3 (150-375); Red Blood Count 3.74 M/mm3 (4.2-5.4); Red Cell Distribution Width 13.4 % (11.5-14.5); White Blood Count 4.8 K/mm3 (4.5-10.0)
[2024-04-07 07:22] LABS: Basophils Absolute Auto 0.1 K/mm3 (0.0-0.1); Eosinophils Absolute Auto 0.1 K/mm3 (0-0.3)
[2024-04-07 07:28] LABS: Add Urine Microscopic? YES; Appearance Urine Cloudy (Clear); Bacteria Urine None Seen /hpf; Bilirubin Urine Negative (Negative); Blood Urine Negative (Negative); Color Urine Yellow (Yellow); Glucose Urine UA Negative (Negative); Ketones Urine Negative (Negative); Leukocyte Esterase Ur 1+ LEU/UL (Negative); Nitrate Urine Negative (Negative); Non Pathogenic Casts 0-2; Protein Urine Negative (Negative); RBC Urine 0-2 /hpf (0-2); Squamous Epithelial Cell Urine Occasional /hpf (Few); Urobilinogen Urine 0.2 mg/dL (<2.0)
[2024-04-07 07:37] LABS: Alanine Aminotransferase 19 U/L (6-35); Albumin Level 4.1 g/dL (3.5-5.1); Alkaline Phosphatase 90 U/L (38-126); Anion Gap 10 mmol/L (4-12); Aspartate Amino Transferase 27 U/L (14-36); Bilirubin,Total 0.4 mg/dL (0.2-1.3); Blood Urea Nitrogen 9 mg/dL (7-17); Calcium 8.9 mg/dL (8.4-10.2); Carbon Dioxide 24 mmol/L (22-30); Chloride 104 mmol/L (98-107); Estimated CRCL calculation 54 ml/min; Estimated Glomerular Filt Rate > 60; Glucose 138 mg/dL (65-110); Potassium 3.4 mmol/L (3.4-5.0); Sodium 138 mmol/L (137-145)
[2024-04-07 07:41] LABS: Ethanol < 10 mg/dL (<10)
[2024-04-07 07:49] LABS: Troponin I 0.016 ng/mL (0.000-0.034)
[2024-04-07 08:18] LABS: Prothrombin Time 13.6 Seconds (11.1-14.7)
[2024-04-07 08:19] LABS: Partial Thromboplastin Time 23.1 Seconds (22.3-36.8)
--- NOTE | 2024-04-07 12:43 | PM.IMHP ---
H&P: HPI History of Present Illness Date/Time: 04/07/24 12:43 Chief Complaint: Altered Mental Status Narrative: 63 y/o F presents here with altered mental status with PMH of CVA (01/2024, left posterior cerebral artery), diabetes, HTN, and rheumatoid arthritis. The patient presents here from home via EMS for further evaluation of altered mental status. HPI obtained through chart review, 's report, and ED provider report. The patient's reports the patient went to sleep around 10:30 p.m. last night at her baseline. The patient had a stroke in January of 2024 with residual weakness (no deficits to extremities noted on neurology's exam in January of 2024), visual deficits, and confusion. However, this morning at 5:30 a.m. he found the patient on the floor next to the bed. No outward signs of trauma. The patient currently endorses right sided headache that she describes as pressure and constant. The patient is also endorsing new vision deficits compared to prior. Denies photophobia or phonophobia. She denies history of migraines and does not typically get headaches. Patient previously had expressive aphasia due to a stroke in January of 2024, however since stroke she reports this has vastly improved and only occurs occasionally. Initial VS at presentation: 98.2? F, HR 88, RR 14, 148/86, and 100% on RA. ED workup showed: No leukocytosis, hemoglobin 10.3 (at baseline), normal coags, no significant electrolyte derangements, creatinine 0.7 and GFR >60, glucose 138, initial troponin 0.016, and UA suspicious for UTI. Multiple findings on head/neck CTA, appear chronic. Review of Systems Review of Systems: ROS unobtainable: Yes unobtainable due to mental status (Limited, confusion at baseline) [facility] Past Medical History Medical History (Updated 04/07/24 @ 20:27 by Stephany Yuan, CHEO) Acute cerebrovascular accident (CVA) due to occlusion of right posterior cerebral artery Arthritis Bilateral hand pain Cerebrovascular accident (CVA) due to embolism of left posterior cerebral artery Encounter for screening for other viral diseases Hypertension Inflammatory arthritis (~02/2020) Neck pain Prediabetes A1C 6.2% on 01/29/2024 Rheumatoid arthritis Rheumatoid arthritis, seropositive, multiple sites Family History Family History Mother Hypertension Diabetes mellitus Father Hypertension Sibling Hypertension Diabetes mellitus Social History Social History Smoking packs per day: 1 Smoking cigarettes per day: 20.0 Years smoked: 40 Smoking pack-years: 40.00 Smoking status: Former smoker Tobacco type: cigarettes Alcohol intake: never Substance use: never Substance use type: does not use Do You Feel Safe in your Home?: Yes Lack of Transportation: No Lack of Food: Never True Current Housing: I Have Housing Concerned About Future Housing: No Difficulty Paying Gas/Electric Bills: No Difficulty Paying for Meds: No Currently Unemployed: No Education: High School Diploma/GED Difficulty w/ Childcare or Family Care: No Living arrangements: with family Occupation/Education: occupation Gender identity (if verbalized by the patient): Female Spiritual care concerns: No Meds Home Medications and Allergies Home Medications Medication Instructions Recorded Confirmed Type losartan 25 mg tablet 100 mg PO DAILY 03/26/22 04/07/24 History Aspir-81 81 mg PO DAILY 01/29/24 04/07/24 History leflunomide 20 mg tablet 20 mg PO DAILY 01/29/24 04/07/24 History clopidogrel 75 mg tablet 75 mg PO QAM #30 tabs 02/01/24 04/07/24 Rx rosuvastatin 20 mg tablet 40 mg PO DAILY 03/27/24 04/07/24 History ondansetron 4 mg disintegrating 4 mg PO Q8H PRN nausea and 03/28/24 04/07/24 Rx tablet vomiting #30 tabs verapamil 180 mg tablet,extended 180 mg PO DAILY 04/07/24 04/07/24 History releas
[2024-04-07] MEDS: ACETAMINOPHEN 500 MG TABLET 1000 MG PO ×2 (17:31→23:20)
[2024-04-07] MEDS: SODIUM CHLORIDE 0.9% IV 1,000 ML 100 ML IV CONT (17:32)
--- NOTE | 2024-04-07 19:22 | WPDNEURCNPN ---
Assessment and Plan Assessment and plan (1) Acute cerebrovascular accident (CVA) due to occlusion of right posterior cerebral artery: Code(s): I63.531 - Cerebral infarction due to unspecified occlusion or stenosis of right posterior cerebral artery Status: Acute (2) Cerebrovascular accident (CVA) due to embolism of left posterior cerebral artery: Code(s): I63.432 - Cerebral infarction due to embolism of left posterior cerebral artery Status: Acute (3) Diabetes: Qualifiers: Diabetes mellitus type: type 2 Diabetes mellitus fci insulin use: without intermediate frame tender use Diabetes mellitus complication status: without complication Qualified Code(s): E11.9 - Type 2 diabetes mellitus without complications Code(s): E11.9 - Type 2 diabetes mellitus without complications Status: Chronic (4) Hypertension: Qualifiers: Hypertension type: primary hypertension Qualified Code(s): I10 - Essential (primary) hypertension Code(s): I10 - Essential (primary) hypertension Status: Chronic Plan The patient has significant today findings on this occasion with the left homonymous hemianopsia and weakness of the left upper and to some extent of the left lower limb and tendency to neglect the left upper limb. She has pre-existing right upper quadrant anopsia. That leaves her with right lower quadrant is only area where she can see. The patient has a significant narrowing of the left posterior cerebral artery and also has been noted to have significant narrowing around 70% right vertebral artery. I do not know whether intervention of the much help and she has been on aspirin Plavix and there Crestor at the maximum dose since the last stroke in January 2024 despite that she has suffered another stroke supportive care is what I would recommend. As per discussion with the hospitalist team that we try and see if the or the stroke symptoms would consider accepting her for thrombectomy given the situation. I told her that may be difficult given these vessels in the posterior fossa are often hard to reach and complications can occur nevertheless if the woke him wishes to accept her to consider further evaluation treatment the portions should can be given via symptomatic treatment of the headache may include treatment to gabapentin 300 mg on as-needed basis. She should continue the aspirin Plavix and Crestor as before pre Consult date: 04/07/24 HPI: Senia Ruth is a 63 year old female with history of stroke in January 31 early into right upper quadrant anopsia with fair recovery of weakness in the arms and legs presented again. Her found her on the floor confused and a when I last or proceed doing sees said that she was trying to sleep. The ER doctor how to get there and she did not have any answers. Called 911 and brought her to the hospital. CT scan of brain initially and CT angiogram of the head and neck were performed the findings will be discussed below. CT scan of brain did not show any significant abnormalities however MRI of the brain was subsequently performed the findings will be discussed below. At this time the patient complains of headache all over but denies any other specific symptoms. noted that she does not see well to the left side of head. She also seems to be weak on the left side of the body. She has not had a passing out spell or seizure-like activity. Previous records were reviewed. Review of Systems Review of Systems: The patient has had headache after the stroke and with physical therapy and gabapentin her symptoms improved and his gabapentin was stopped. Now she is having headache once again. All systems reviewed & are unremarkable except as noted in HPI and below PMFSH Past Medical History Medical History (Updated 04/07/24 @ 19:31 by Ozzie Farley MD) Acute cerebrovascular accident (CVA) due to occlusion of right posterior cerebral artery Art
[2024-04-07 20:27] LABS: Cholesterol 112 mg/dL (0-200); HDL Direct 43 mg/dL; Triglycerides 74 mg/dL (<150)
[2024-04-07 20:38] LABS: LDL Cholesterol Direct 47 mg/dL
[2024-04-07] MEDS: GABAPENTIN 300 MG CAPSULE PO (23:20)
[2024-04-08] VITALS (12 sets, daily range): BP systolic 110–145; BP diastolic 74–91; PULSE 70–140; RESP 14–20; TEMP 36–36.6; O2SAT 95–98; BMI 17.6
[2024-04-08 06:29] LABS: Basophils Absolute Auto 0.1 K/mm3 (0.0-0.1); Eosinophils Absolute Auto 0.6 K/mm3 (0-0.3); Eosinophils Percent Auto 11.7 % (0-4.4); Hematocrit 35.1 % (37.0-47.0); Hemoglobin 10.9 g/dL (12.0-15.0); Immature Granulocyte Absolute 0.01 K/mm3 (0.00-0.031); Immature Granulocyte Percent A 0.2 % (0-0.5); Lymphocytes Percent Auto 31.5 % (18.3-44.2); Mean Corpuscular HGB Conc 31.1 g/dl (32-36); Mean Corpuscular Hemoglobin 27.8 pg (26-34); Mean Corpuscular Volume 89.5 fl (80-100); Mean Platelet Volume 10.6 fl (7.4-10.4); Monocytes Absolute Auto 0.6 K/mm3 (0.1-0.6); Monocytes Percent Auto 10.4 % (2.6-8.5); Neutrophils Absolute Auto 2.4 K/mm3 (1.3-6.7); Neutrophils Percent Auto 44.2 % (45.5-73.1); Platelet Count Result 211 k/mm3 (150-375); Red Blood Count 3.92 M/mm3 (4.2-5.4); Red Cell Distribution Width 13.7 % (11.5-14.5); White Blood Count 5.4 K/mm3 (4.5-10.0)
[2024-04-08 06:42] LABS: Alanine Aminotransferase 19 U/L (6-35); Albumin Level 4.1 g/dL (3.5-5.1); Alkaline Phosphatase 89 U/L (38-126); Aspartate Amino Transferase 27 U/L (14-36); Bilirubin,Total 0.4 mg/dL (0.2-1.3); Blood Urea Nitrogen 8 mg/dL (7-17); Calcium 9.4 mg/dL (8.4-10.2); Carbon Dioxide 24 mmol/L (22-30); Chloride 105 mmol/L (98-107); Estimated CRCL calculation 43 ml/min; Estimated Glomerular Filt Rate > 60; Glucose 105 mg/dL (65-110); Potassium 3.5 mmol/L (3.4-5.0)
[2024-04-08 06:52] LABS: Anion Gap 10 mmol/L (4-12); Sodium 139 mmol/L (137-145)
[2024-04-08] MEDS: TAMSULOSIN HCL 0.4 MG CAPSULE PO (11:00)
[2024-04-08] MEDS: LOSARTAN POTASSIUM 100 MG TABLET PO (11:00)
[2024-04-08] MEDS: LEFLUNOMIDE 20 MG TABLET PO (11:00)
[2024-04-08] MEDS: ASPIRIN 81 MG ENTERIC TABLET PO (11:00)
[2024-04-08] MEDS: CLOPIDOGREL BISULFATE 75 MG TABLET PO (11:00)
[2024-04-08] MEDS: ACETAMINOPHEN 500 MG TABLET 1000 MG PO ×3 (11:01→22:10)
[2024-04-08] MEDS: ROSUVASTATIN 20 MG TABLET 40 MG PO (11:01)
[2024-04-08] MEDS: VERAPAMIL HCL 180 MG TABLET ER PO (11:01)
--- NOTE | 2024-04-08 11:30 | PM.IMPN ---
Progress Note: A&P Assessment and Plan (1) Acute stroke due to ischemia: Code(s): I63.9 - Cerebral infarction, unspecified Status: Acute Assessment and Plan: New left sided weakness, neglect, and worsening visual deficits on exam (previously had right homonomous upper quadrant anopsia, now has left homonymous hemianopsia). LKW 10:30 p.m. on 04/06. - Head/Neck CTA: 1. 40% stenosis of the right carotid bulb relative to normal distal artery lumen diameter (NASCET criteria). 2. 0% stenosis of the left carotid bulb relative to normal distal artery lumen diameter. 3. Occlusion of the proximal left vertebral artery with reconstitution of the atretic mid to distal artery. 4. Moderate, 50-70% stenosis at the intracranial right vertebral artery. 5. Extensive atherosclerotic calcifications throughout the intracranial portions of the bilateral internal carotid arteries with moderate stenosis at the lacerum segment of the right internal carotid artery. 6. Severe, >70% stenosis at the distal right P1 segment. 7. Moderate sized old infarcts at the posterior medial left temporal lobe and anterior left occipital lobe and at the right temporal lobe and temporoparietal regions. - MRI 1. Acute infarct involving the medial right temporal and occipital lobes in the right posterior cerebral artery vascular distribution. 2. Unchanged chronic infarct with laminar necrosis in the lateral left occipital and in the right temporoparietal regions, small old right cerebellar infarct and early chronic infarct at the medial left temporal and occipital lobes in the left posterior cerebral artery vascular distribution 3. Moderate scattered nonspecific white matter T2 hyperintensity likely sequela of chronic small vessel ischemic disease. - call to [facility] telestroke at 19:30. Spoke with Goodman SILVA, recommended repeating CVA workup and to consider loop recorder, will defer to neurology. No thrombectomy indicated at this time. Out of the window for TPA. - neurology consulted, Martine. see note. - continue statin, Plavix, and aspirin - gabapentin p.r.n. for headache (2) UTI (urinary tract infection): Qualifiers: Hematuria presence: without hematuria Urinary tract infection type: acute cystitis Qualified Code(s): N30.00 - Acute cystitis without hematuria Code(s): N39.0 - Urinary tract infection, site not specified Status: Suspected Assessment and Plan: - UA: cloudy, 1+ leuks, 6-10 WBC, occasional epithelial cells. may be contaminate, however had retention on exam. will follow culture. - UC pending - previous micro reviewed, no previous resistances - started on Ceftriaxone on 04/07 (3) Urinary retention: Code(s): R33.9 - Retention of urine, unspecified Status: Acute Assessment and Plan: - bladder scan in the ED showed 760 mL - andino catheter placed - started on Flomax - monitor I&Os (4) Hypertension: Qualifiers: Hypertension type: primary hypertension Qualified Code(s): I10 - Essential (primary) hypertension Code(s): I10 - Essential (primary) hypertension Status: Chronic Assessment and Plan: - chronic, currently 125/76 - continue home medications: Losartan 100 mg daily and Verapamil ER 180 mg daily - monitor (5) BELLA (generalized anxiety disorder): Code(s): F41.1 - Generalized anxiety disorder Status: Acute Assessment and Plan: -recent health concern causing a lot of emotional strain on her - discussed and pt wants to try ssri - will add prozac and atarax prn - will need a f/u with pcp for monitoring Plan Diet: Heart healthy GI Prophylaxis: Not currently indicated DVT Prophylaxis: scd Lines: Peripheral Code Status: Full code Time Spent With Patient Time with patient: Greater than 35 minutes Subjective Date/time seen: 04/08/24 11:30 Interval history: Altered Mental Status Narrative retrieved from H/P: 63 y/o F
[2024-04-08 12:05] LABS: Glucose Point of Care 126 mg/dl (65-105)
--- NOTE | 2024-04-08 16:04 | PCSTNOTE ---
Please refer to the Bedside Swallow Evaluation in the EMR. Please note, silent aspiration cannot be ruled out at bedside.
[2024-04-08] MEDS: FLUoxetine HCL 20 MG CAPSULE PO (16:55)
[2024-04-08] MEDS: GABAPENTIN 300 MG CAPSULE PO (21:08)
[2024-04-08] MEDS: hydrOXYzine HCL 25 MG TABLET PO (22:10)
[2024-04-08] MEDS: ACETAMINOPHEN/BUTALBITAL/CAFFEINE 325-50-40 MG TABLET (FIORICET) 1 TAB PO (23:30)
[2024-04-09] VITALS (9 sets, daily range): BP systolic 90–101; BP diastolic 58–76; PULSE 73–110; RESP 14–19; TEMP 36.3–36.6; O2SAT 96–98
[2024-04-09] MEDS: GABAPENTIN 300 MG CAPSULE PO ×3 (05:40→23:04)
[2024-04-09] MEDS: ASPIRIN 81 MG ENTERIC TABLET PO (09:37)
[2024-04-09] MEDS: VERAPAMIL HCL 180 MG TABLET ER PO (09:38)
[2024-04-09] MEDS: ROSUVASTATIN 20 MG TABLET 40 MG PO (09:38)
[2024-04-09] MEDS: LOSARTAN POTASSIUM 100 MG TABLET PO (09:38)
[2024-04-09] MEDS: LEFLUNOMIDE 20 MG TABLET PO (09:38)
[2024-04-09] MEDS: CLOPIDOGREL BISULFATE 75 MG TABLET PO (09:38)
[2024-04-09] MEDS: TAMSULOSIN HCL 0.4 MG CAPSULE PO (09:38)
[2024-04-09] MEDS: FLUoxetine HCL 20 MG CAPSULE PO (09:38)
[2024-04-09] MEDS: hydrOXYzine HCL 25 MG TABLET PO ×3 (09:38→23:04)
--- NOTE | 2024-04-09 10:16 | PM.IMPN ---
Progress Note: A&P Assessment and Plan (1) Acute stroke due to ischemia: Code(s): I63.9 - Cerebral infarction, unspecified Status: Acute Assessment and Plan: New left sided weakness, neglect, and worsening visual deficits on exam (previously had right homonomous upper quadrant anopsia, now has left homonymous hemianopsia). LKW 10:30 p.m. on 04/06. - Head/Neck CTA: 1. 40% stenosis of the right carotid bulb relative to normal distal artery lumen diameter (NASCET criteria). 2. 0% stenosis of the left carotid bulb relative to normal distal artery lumen diameter. 3. Occlusion of the proximal left vertebral artery with reconstitution of the atretic mid to distal artery. 4. Moderate, 50-70% stenosis at the intracranial right vertebral artery. 5. Extensive atherosclerotic calcifications throughout the intracranial portions of the bilateral internal carotid arteries with moderate stenosis at the lacerum segment of the right internal carotid artery. 6. Severe, >70% stenosis at the distal right P1 segment. 7. Moderate sized old infarcts at the posterior medial left temporal lobe and anterior left occipital lobe and at the right temporal lobe and temporoparietal regions. - MRI 1. Acute infarct involving the medial right temporal and occipital lobes in the right posterior cerebral artery vascular distribution. 2. Unchanged chronic infarct with laminar necrosis in the lateral left occipital and in the right temporoparietal regions, small old right cerebellar infarct and early chronic infarct at the medial left temporal and occipital lobes in the left posterior cerebral artery vascular distribution 3. Moderate scattered nonspecific white matter T2 hyperintensity likely sequela of chronic small vessel ischemic disease. - call to [facility] telestroke at 19:30. Spoke with Goodman SILVA, recommended repeating CVA workup and to consider loop recorder, will defer to neurology. No thrombectomy indicated at this time. Out of the window for TPA. - neurology consulted, Martine. see note. - continue statin, Plavix, and aspirin - gabapentin p.r.n. for headache 04/09- speech cleared her to eat and drink - will benefit from communication eval due to visual deficit from stroke- discussed with speech-will order (2) UTI (urinary tract infection): Qualifiers: Hematuria presence: without hematuria Urinary tract infection type: acute cystitis Qualified Code(s): N30.00 - Acute cystitis without hematuria Code(s): N39.0 - Urinary tract infection, site not specified Status: Suspected Assessment and Plan: - UA: cloudy, 1+ leuks, 6-10 WBC, occasional epithelial cells. may be contaminate, however had retention on exam. will follow culture. - UC pending - previous micro reviewed, no previous resistances - started on Ceftriaxone on 04/07- continue (3) Urinary retention: Code(s): R33.9 - Retention of urine, unspecified Status: Acute Assessment and Plan: - bladder scan in the ED showed 760 mL - andino catheter placed - started on Flomax - monitor I&Os (4) Hypertension: Qualifiers: Hypertension type: primary hypertension Qualified Code(s): I10 - Essential (primary) hypertension Code(s): I10 - Essential (primary) hypertension Status: Chronic Assessment and Plan: - chronic, currently 125/76 - continue home medications: Losartan 100 mg daily and Verapamil ER 180 mg daily - monitor (5) BELLA (generalized anxiety disorder): Code(s): F41.1 - Generalized anxiety disorder Status: Acute Assessment and Plan: -recent health concern causing a lot of emotional strain on her - discussed and pt wants to try ssri - will add prozac and atarax prn - will need a f/u with pcp for monitoring Plan Diet: Heart healthy GI Prophylaxis: Not currently indicated DVT Prophylaxis: scd Lines: Peripheral Code Status: Full code Time Spent With Patient Time with patient:
[2024-04-09] MEDS: ACETAMINOPHEN 500 MG TABLET 1000 MG PO (13:37)
[2024-04-10] VITALS (10 sets, daily range): BP systolic 78–108; BP diastolic 58–74; PULSE 78–115; RESP 14–19; TEMP 36.1–37; O2SAT 91–95
--- NOTE | 2024-04-10 08:36 | PM.IMPN ---
Progress Note: A&P Assessment and Plan (1) Acute stroke due to ischemia: Code(s): I63.9 - Cerebral infarction, unspecified Status: Acute Assessment and Plan: New left sided weakness, neglect, and worsening visual deficits on exam (previously had right homonomous upper quadrant anopsia, now has left homonymous hemianopsia). LKW 10:30 p.m. on 04/06. - Head/Neck CTA: 1. 40% stenosis of the right carotid bulb relative to normal distal artery lumen diameter (NASCET criteria). 2. 0% stenosis of the left carotid bulb relative to normal distal artery lumen diameter. 3. Occlusion of the proximal left vertebral artery with reconstitution of the atretic mid to distal artery. 4. Moderate, 50-70% stenosis at the intracranial right vertebral artery. 5. Extensive atherosclerotic calcifications throughout the intracranial portions of the bilateral internal carotid arteries with moderate stenosis at the lacerum segment of the right internal carotid artery. 6. Severe, >70% stenosis at the distal right P1 segment. 7. Moderate sized old infarcts at the posterior medial left temporal lobe and anterior left occipital lobe and at the right temporal lobe and temporoparietal regions. - MRI 1. Acute infarct involving the medial right temporal and occipital lobes in the right posterior cerebral artery vascular distribution. 2. Unchanged chronic infarct with laminar necrosis in the lateral left occipital and in the right temporoparietal regions, small old right cerebellar infarct and early chronic infarct at the medial left temporal and occipital lobes in the left posterior cerebral artery vascular distribution 3. Moderate scattered nonspecific white matter T2 hyperintensity likely sequela of chronic small vessel ischemic disease. - call to [facility] telestroke at 19:30. Spoke with Goodman SILVA, recommended repeating CVA workup and to consider loop recorder, will defer to neurology. No thrombectomy indicated at this time. Out of the window for TPA. - neurology consulted, Martine. see note. - continue statin, Plavix, and aspirin - gabapentin p.r.n. for headache 04/09- speech cleared her to eat and drink - will benefit from communication eval due to visual deficit from stroke- discussed with speech-will order 04/10- continue pt/ot, neurology is following - appreciate recomendations (2) UTI (urinary tract infection): Qualifiers: Hematuria presence: without hematuria Urinary tract infection type: acute cystitis Qualified Code(s): N30.00 - Acute cystitis without hematuria Code(s): N39.0 - Urinary tract infection, site not specified Status: Suspected Assessment and Plan: - UA: cloudy, 1+ leuks, 6-10 WBC, occasional epithelial cells. may be contaminate, however had retention on exam. will follow culture. - UC pending - previous micro reviewed, no previous resistances - started on Ceftriaxone on 04/07- continue (3) Urinary retention: Code(s): R33.9 - Retention of urine, unspecified Status: Acute Assessment and Plan: - bladder scan in the ED showed 760 mL - andino catheter placed - started on Flomax - monitor I&Os (4) Hypertension: Qualifiers: Hypertension type: primary hypertension Qualified Code(s): I10 - Essential (primary) hypertension Code(s): I10 - Essential (primary) hypertension Status: Chronic Assessment and Plan: - chronic, currently 125/76 - continue home medications: Losartan 100 mg daily and Verapamil ER 180 mg daily - monitor 04/10- reported low BP pt is at her baseline-will hold BP meds for now and give 500 ml bolus and then 150 ml/h (5) BELLA (generalized anxiety disorder): Code(s): F41.1 - Generalized anxiety disorder Status: Acute Assessment and Plan: -recent health concern causing a lot of emotional strain on her - discussed and pt wants to try ssri - will add prozac and atarax prn - will need a f/u with pcp for monitoring
[2024-04-10] MEDS: ROSUVASTATIN 20 MG TABLET 40 MG PO (09:20)
[2024-04-10] MEDS: CLOPIDOGREL BISULFATE 75 MG TABLET PO (09:20)
[2024-04-10] MEDS: TAMSULOSIN HCL 0.4 MG CAPSULE PO (09:20)
[2024-04-10] MEDS: LEFLUNOMIDE 20 MG TABLET PO (09:20)
[2024-04-10] MEDS: LOSARTAN POTASSIUM 100 MG TABLET PO (09:20)
[2024-04-10] MEDS: ASPIRIN 81 MG ENTERIC TABLET PO (09:20)
[2024-04-10] MEDS: VERAPAMIL HCL 180 MG TABLET ER PO (09:21)
[2024-04-10] MEDS: FLUoxetine HCL 20 MG CAPSULE PO (09:21)
[2024-04-10] MEDS: ACETAMINOPHEN 500 MG TABLET 1000 MG PO ×2 (12:02→21:39)
[2024-04-10] MEDS: SODIUM CHLORIDE 0.9% IV 1,000 ML 999 ML IV CONT (13:57)
[2024-04-10] MEDS: GABAPENTIN 300 MG CAPSULE PO (21:38)
[2024-04-10] MEDS: hydrOXYzine HCL 25 MG TABLET PO (21:39)
[2024-04-11] VITALS (9 sets, daily range): BP systolic 118–128; BP diastolic 62–78; PULSE 82–105; RESP 14–18; TEMP 36.4–37.2; O2SAT 93–97
[2024-04-11] MEDS: LOSARTAN POTASSIUM 100 MG TABLET PO (09:10)
[2024-04-11] MEDS: ROSUVASTATIN 20 MG TABLET 40 MG PO (09:10)
[2024-04-11] MEDS: LIDOCAINE 5% PATCH 1 PATCH TRANSDERM (09:10)
[2024-04-11] MEDS: CLOPIDOGREL BISULFATE 75 MG TABLET PO (09:10)
[2024-04-11] MEDS: LEFLUNOMIDE 20 MG TABLET PO (09:10)
[2024-04-11] MEDS: FLUoxetine HCL 20 MG CAPSULE PO (09:10)
[2024-04-11] MEDS: ASPIRIN 81 MG ENTERIC TABLET PO (09:10)
[2024-04-11] MEDS: TAMSULOSIN HCL 0.4 MG CAPSULE PO (09:10)
[2024-04-11] MEDS: VERAPAMIL HCL 180 MG TABLET ER PO (09:10)
--- NOTE | 2024-04-11 10:14 | PM.IMPN ---
Progress Note: A&P Assessment and Plan (1) Acute stroke due to ischemia: Code(s): I63.9 - Cerebral infarction, unspecified Status: Acute Assessment and Plan: New left sided weakness, neglect, and worsening visual deficits on exam (previously had right homonomous upper quadrant anopsia, now has left homonymous hemianopsia). LKW 10:30 p.m. on 04/06. - Head/Neck CTA: 1. 40% stenosis of the right carotid bulb relative to normal distal artery lumen diameter (NASCET criteria). 2. 0% stenosis of the left carotid bulb relative to normal distal artery lumen diameter. 3. Occlusion of the proximal left vertebral artery with reconstitution of the atretic mid to distal artery. 4. Moderate, 50-70% stenosis at the intracranial right vertebral artery. 5. Extensive atherosclerotic calcifications throughout the intracranial portions of the bilateral internal carotid arteries with moderate stenosis at the lacerum segment of the right internal carotid artery. 6. Severe, >70% stenosis at the distal right P1 segment. 7. Moderate sized old infarcts at the posterior medial left temporal lobe and anterior left occipital lobe and at the right temporal lobe and temporoparietal regions. - MRI 1. Acute infarct involving the medial right temporal and occipital lobes in the right posterior cerebral artery vascular distribution. 2. Unchanged chronic infarct with laminar necrosis in the lateral left occipital and in the right temporoparietal regions, small old right cerebellar infarct and early chronic infarct at the medial left temporal and occipital lobes in the left posterior cerebral artery vascular distribution 3. Moderate scattered nonspecific white matter T2 hyperintensity likely sequela of chronic small vessel ischemic disease. - call to [facility] telestroke at 19:30. Spoke with Goodman SILVA, recommended repeating CVA workup and to consider loop recorder, will defer to neurology. No thrombectomy indicated at this time. Out of the window for TPA. - neurology consulted, Martine. see note. - continue statin, Plavix, and aspirin - gabapentin p.r.n. for headache 04/09- speech cleared her to eat and drink - will benefit from communication eval due to visual deficit from stroke- discussed with speech-will order 04/10- continue pt/ot, neurology is following - appreciate recommendations 04/11- waiting for placement for rehab (2) UTI (urinary tract infection): Qualifiers: Hematuria presence: without hematuria Urinary tract infection type: acute cystitis Qualified Code(s): N30.00 - Acute cystitis without hematuria Code(s): N39.0 - Urinary tract infection, site not specified Status: Suspected Assessment and Plan: - UA: cloudy, 1+ leuks, 6-10 WBC, occasional epithelial cells. may be contaminate, however had retention on exam. will follow culture. - UC pending - previous micro reviewed, no previous resistances - started on Ceftriaxone on 04/07- continue -will de escalate to po (3) Urinary retention: Code(s): R33.9 - Retention of urine, unspecified Status: Acute Assessment and Plan: - bladder scan in the ED showed 760 mL - andino catheter placed - started on Flomax - monitor I&Os (4) Hypertension: Qualifiers: Hypertension type: primary hypertension Qualified Code(s): I10 - Essential (primary) hypertension Code(s): I10 - Essential (primary) hypertension Status: Chronic Assessment and Plan: - chronic, currently 125/76 - continue home medications: Losartan 100 mg daily and Verapamil ER 180 mg daily - monitor 04/10- reported low BP pt is at her baseline-will hold BP meds for now and give 500 ml bolus and then 150 ml/h (5) BELLA (generalized anxiety disorder): Code(s): F41.1 - Generalized anxiety disorder Status: Acute Assessment and Plan: -recent health concern causing a lot of emotional strain on her - discussed and pt wants to try ssri - will add proza
--- NOTE | 2024-04-11 11:35 | PCOTNOTE ---
Patient requested therapy come back this afternoon. Patient's assisting her with eating at this time.
--- NOTE | 2024-04-11 12:00 | WPDNEUROLOGY ---
Neurology EEG Report General Information Date of Study: 03/08/24 TEST Electroencephalogram DIAGNOSIS multiples strokes or cerebrovascular disease CONDITION OF RECORDING bedside recording EEG NUMBER [id number] CLINICAL HISTORY history of multiple stroke in vertebrobasilar territory EEG DESCRIPTION The patient was noted to be drowsy at the beginning and the background activity consists of diffuse theta activity. Intermittent rhythmic delta activity was also seen. When fully awake the background activity consists of posterior down rhythm in alpha range at 9 hertz with an amplitude of 20-40 microvolts in posterior head region. Anteriorly low amplitude mixed frequency activity was seen. Hyperventilation or photic stimulation were not performed. Some questionable focal slowing was seen over left temporal area and rare sharp transients seen over right central parietal area however these appear poorly defined. Stage 2 sleep was recorded during which sleep spindles and K complexes were seen. IMPRESSION This is an essentially normal EEG obtained during awake and sleep states.
--- NOTE | 2024-04-11 12:10 | WPDNEUROPN ---
Progress Note: A&P Assessment and Plan (1) Acute cerebrovascular accident (CVA) due to occlusion of right posterior cerebral artery: Code(s): I63.531 - Cerebral infarction due to unspecified occlusion or stenosis of right posterior cerebral artery Status: Acute (2) Cerebrovascular accident (CVA) due to embolism of left posterior cerebral artery: Code(s): I63.432 - Cerebral infarction due to embolism of left posterior cerebral artery Status: Acute (3) Vertebral artery stenosis: Code(s): I65.09 - Occlusion and stenosis of unspecified vertebral artery Status: Acute (4) AMS (altered mental status): Qualifiers: Altered mental status type: unspecified Qualified Code(s): R41.82 - Altered mental status, unspecified Code(s): R41.82 - Altered mental status, unspecified Status: Acute Plan The patient has been expressed the feeling that he would like to her to be transferred to [facility] however this has been discussed that today and intervention is not possible at this time. Also the blood vessels in mentioned here are deeper vessels wears intervention would not without significant risk and a the time has well past and this was previously also discussed and decided to treat her with a maximum medical therapy. She will require rehab once he is stable. I also explained that today with a stroke in the posterior fossa sometimes a herniation or swelling of the stroke leading to complication can occur specially in the 1st 5 days and hence not getting worse she is also relative good news. She will require rehab at some point. She should be treated with dual anti platelets and statins. I noted that she is on Crestor 40 mg a day in addition to aspirin 81 mg a day and Plavix 75 mg a day and has the should be continued. I have reviewed the results of MRI of the brain and CT angiogram of the head and neck which has been repeated once again on 04/07. Subjective Date/time seen: 04/11/24 12:10 Interval history: The patient continues to have headache mostly in the frontotemporal region. The family has been somewhat frustrated because of lack of improvement however she has been stable otherwise. The pain is also slightly better than before. Hospitalist team contacted [facility] 04/07/2020 4 regarding possible transfer to Stroke Service however it appears the os to repeat CT angiogram MRI of the brain which were done MRI of the brain shows a 70% narrowing also in the right posterior cerebral artery. Previously she has been noted to have narrowing of the right vertebral artery and a stenosis in the left posterior cerebral artery. Patient presented with the left homonymous hemianopsia and weakness of the left upper and lower limb which to some extent has progressed to be weaker in the left upper and lower limb. No other changes have been observed. She is still able to talk and swallow. was present the time of the evaluation. I received a phone call from her primary care doctor Dr. Craig last Thursday and he was very concerned about her condition wondering if any intervention could help. This has been discussed in some detail. Review of Systems Review of Systems: All systems reviewed & are unremarkable except as noted in HPI and below Exam Narrative: No aphasia or dysarthria. Fully conscious alert. She has limited range of vision with the right lower quadrant but she can see fingers being shown other than that there is a pre-existing right upper quadrant anopsia and new left homonomous hemianopsia. He has moderate weakness of the left upper and lower limb power grade 3 4/5 being slightly more on the upper than lower limb. No additional new findings were noted. Objective Data Vital Signs Vital Signs: Vital Signs - 24 hr 04/10/24 14:00 04/10/24 15:29 04/10/24 16:03 Temperature 98.6 F Pulse Rate 92 78 Respiratory Rate 14 Blood Pressure 78/58 L 98/60
[2024-04-11] MEDS: ACETAMINOPHEN 500 MG TABLET 1000 MG PO (19:47)
[2024-04-11] MEDS: hydrOXYzine HCL 25 MG TABLET PO (19:47)
[2024-04-11] MEDS: GABAPENTIN 300 MG CAPSULE PO (19:47)
[2024-04-12] VITALS (9 sets, daily range): BP systolic 104–132; BP diastolic 52–78; PULSE 69–97; RESP 14–18; TEMP 36.6–36.7; O2SAT 92–99
[2024-04-12] MEDS: GABAPENTIN 300 MG CAPSULE PO ×2 (05:47→20:57)
[2024-04-12] MEDS: ACETAMINOPHEN 500 MG TABLET 1000 MG PO ×3 (05:48→20:57)
[2024-04-12] MEDS: FLUoxetine HCL 20 MG CAPSULE PO (08:20)
[2024-04-12] MEDS: ROSUVASTATIN 20 MG TABLET 40 MG PO (08:20)
[2024-04-12] MEDS: LEFLUNOMIDE 20 MG TABLET PO (08:20)
[2024-04-12] MEDS: LOSARTAN POTASSIUM 100 MG TABLET PO (08:20)
[2024-04-12] MEDS: ASPIRIN 81 MG ENTERIC TABLET PO (08:20)
[2024-04-12] MEDS: VERAPAMIL HCL 180 MG TABLET ER PO (08:20)
[2024-04-12] MEDS: LIDOCAINE 5% PATCH 1 PATCH TRANSDERM (08:20)
[2024-04-12] MEDS: CLOPIDOGREL BISULFATE 75 MG TABLET PO (08:20)
[2024-04-12] MEDS: TAMSULOSIN HCL 0.4 MG CAPSULE PO (08:20)
[2024-04-12] MEDS: CEPHALEXIN 500 MG CAPSULE PO ×2 (08:20→20:57)
--- NOTE | 2024-04-12 09:04 | P.PNIM_ITS ---
Progress Note: A&P Assessment and Plan (1) Acute stroke due to ischemia: Code(s): I63.9 - Cerebral infarction, unspecified Status: Acute Assessment and Plan: New left sided weakness, neglect, and worsening visual deficits on exam (previously had right homonomous upper quadrant anopsia, now has left homonymous hemianopsia). LKW 10:30 p.m. on 04/06. - Head/Neck CTA: 1. 40% stenosis of the right carotid bulb relative to normal distal artery lumen diameter (NASCET criteria). 2. 0% stenosis of the left carotid bulb relative to normal distal artery lumen diameter. 3. Occlusion of the proximal left vertebral artery with reconstitution of the atretic mid to distal artery. 4. Moderate, 50-70% stenosis at the intracranial right vertebral artery. 5. Extensive atherosclerotic calcifications throughout the intracranial portions of the bilateral internal carotid arteries with moderate stenosis at the lacerum segment of the right internal carotid artery. 6. Severe, >70% stenosis at the distal right P1 segment. 7. Moderate sized old infarcts at the posterior medial left temporal lobe and anterior left occipital lobe and at the right temporal lobe and temporoparietal regions. - MRI 1. Acute infarct involving the medial right temporal and occipital lobes in the right posterior cerebral artery vascular distribution. 2. Unchanged chronic infarct with laminar necrosis in the lateral left occipital and in the right temporoparietal regions, small old right cerebellar infarct and early chronic infarct at the medial left temporal and occipital lobes in the left posterior cerebral artery vascular distribution 3. Moderate scattered nonspecific white matter T2 hyperintensity likely sequela of chronic small vessel ischemic disease. - call to [facility] telestroke at 19:30. Spoke with Goodman SILVA, recommended repeating CVA workup and to consider loop recorder, will defer to neurology. No thrombectomy indicated at this time. Out of the window for TPA. - neurology consulted, Martine. see note. - continue statin, Plavix, and aspirin - gabapentin p.r.n. for headache 04/09- speech cleared her to eat and drink - will benefit from communication eval due to visual deficit from stroke- discussed with speech-will order 04/10- continue pt/ot, neurology is following - appreciate recommendations 04/11- waiting for placement for rehab 04/12-continue therapy (2) UTI (urinary tract infection): Qualifiers: Hematuria presence: without hematuria Urinary tract infection type: acute cystitis Qualified Code(s): N30.00 - Acute cystitis without hematuria Code(s): N39.0 - Urinary tract infection, site not specified Status: Suspected Assessment and Plan: - UA: cloudy, 1+ leuks, 6-10 WBC, occasional epithelial cells. may be contaminate, however had retention on exam. will follow culture. - UC pending - previous micro reviewed, no previous resistances - started on Ceftriaxone on 04/07- continue -will de escalate to po (3) Urinary retention: Code(s): R33.9 - Retention of urine, unspecified Status: Acute Assessment and Plan: - bladder scan in the ED showed 760 mL - andino catheter placed - started on Flomax - monitor I&Os (4) Hypertension: Qualifiers: Hypertension type: primary hypertension Qualified Code(s): I10 - Essential (primary) hypertension Code(s): I10 - Essential (primary) hypertension Status: Chronic Assessment and Plan: - chronic, currently 125/76 - continue home medications: Losartan 100 mg daily and Verapamil ER 180 mg daniel
[2024-04-12] MEDS: hydrOXYzine HCL 25 MG TABLET PO ×2 (13:06→20:57)
[2024-04-13] VITALS: PULSE 89
[2024-04-13 04:00] VITALS: PULSE 91
[2024-04-13 05:31] VITALS: BP 113/73; PULSE 92; RESP 18; TEMP 36.8; O2SAT 98
[2024-04-13 07:25] LABS: Basophils Absolute Auto 0.1 K/mm3 (0.0-0.1); Basophils Percent Auto 1.2 % (0.2-1.2); Eosinophils Absolute Auto 0.7 K/mm3 (0-0.3); Eosinophils Percent Auto 11.5 % (0-4.4); Hematocrit 32.9 % (37.0-47.0); Hemoglobin 10.1 g/dL (12.0-15.0); Immature Granulocyte Absolute 0.01 K/mm3 (0.00-0.031); Immature Granulocyte Percent A 0.2 % (0-0.5); Lymphocytes Absolute Auto 1.27 K/mm3 (0.9-3.2); Lymphocytes Percent Auto 22.1 % (18.3-44.2); Mean Corpuscular HGB Conc 30.7 g/dl (32-36); Mean Corpuscular Hemoglobin 26.7 pg (26-34); Mean Platelet Volume 10.3 fl (7.4-10.4); Monocytes Absolute Auto 0.5 K/mm3 (0.1-0.6); Monocytes Percent Auto 9.4 % (2.6-8.5); Neutrophils Absolute Auto 3.2 K/mm3 (1.3-6.7); Neutrophils Percent Auto 55.6 % (45.5-73.1); Platelet Count Result 199 k/mm3 (150-375); Red Blood Count 3.78 M/mm3 (4.2-5.4); White Blood Count 5.8 K/mm3 (4.5-10.0)
[2024-04-13 07:36] LABS: Alanine Aminotransferase 17 U/L (6-35); Albumin Level 3.7 g/dL (3.5-5.1); Alkaline Phosphatase 77 U/L (38-126); Anion Gap 5 mmol/L (4-12); Aspartate Amino Transferase 29 U/L (14-36); Bilirubin,Total 0.3 mg/dL (0.2-1.3); Blood Urea Nitrogen 16 mg/dL (7-17); Calcium 8.8 mg/dL (8.4-10.2); Carbon Dioxide 29 mmol/L (22-30); Chloride 103 mmol/L (98-107); Estimated CRCL calculation 49 ml/min; Estimated Glomerular Filt Rate > 60; Glucose 116 mg/dL (65-110); Potassium 3.7 mmol/L (3.4-5.0); Sodium 137 mmol/L (137-145)
[2024-04-13] MEDS: VERAPAMIL HCL 180 MG TABLET ER PO (08:08)
[2024-04-13] MEDS: ROSUVASTATIN 20 MG TABLET 40 MG PO (08:08)
[2024-04-13] MEDS: TAMSULOSIN HCL 0.4 MG CAPSULE PO (08:08)
[2024-04-13] MEDS: FLUoxetine HCL 20 MG CAPSULE PO (08:08)
[2024-04-13] MEDS: LEFLUNOMIDE 20 MG TABLET PO (08:09)
[2024-04-13] MEDS: CEPHALEXIN 500 MG CAPSULE PO ×2 (08:09→21:18)
[2024-04-13] MEDS: ASPIRIN 81 MG ENTERIC TABLET PO (08:09)
[2024-04-13] MEDS: CLOPIDOGREL BISULFATE 75 MG TABLET PO (08:09)
--- NOTE | 2024-04-13 09:01 | PM.IMPN ---
Progress Note: A&P Assessment and Plan (1) Acute stroke due to ischemia: Code(s): I63.9 - Cerebral infarction, unspecified Status: Acute Assessment and Plan: New left sided weakness, neglect, and worsening visual deficits on exam (previously had right homonomous upper quadrant anopsia, now has left homonymous hemianopsia). Last known well was 10:30 p.m. on 04/06. - Head/Neck CTA: 1. 40% stenosis of the right carotid bulb relative to normal distal artery lumen diameter (NASCET criteria). 2. 0% stenosis of the left carotid bulb relative to normal distal artery lumen diameter. 3. Occlusion of the proximal left vertebral artery with reconstitution of the atretic mid to distal artery. 4. Moderate, 50-70% stenosis at the intracranial right vertebral artery. 5. Extensive atherosclerotic calcifications throughout the intracranial portions of the bilateral internal carotid arteries with moderate stenosis at the lacerum segment of the right internal carotid artery. 6. Severe, >70% stenosis at the distal right P1 segment. 7. Moderate sized old infarcts at the posterior medial left temporal lobe and anterior left occipital lobe and at the right temporal lobe and temporoparietal regions. - MRI 1. Acute infarct involving the medial right temporal and occipital lobes in the right posterior cerebral artery vascular distribution. 2. Unchanged chronic infarct with laminar necrosis in the lateral left occipital and in the right temporoparietal regions, small old right cerebellar infarct and early chronic infarct at the medial left temporal and occipital lobes in the left posterior cerebral artery vascular distribution 3. Moderate scattered nonspecific white matter T2 hyperintensity likely sequela of chronic small vessel ischemic disease. - call to [facility] telestroke at 19:30. Spoke with Goodman SILVA, recommended repeating CVA workup and to consider loop recorder, will defer to neurology. No thrombectomy indicated at this time. Out of the window for TPA. - neurology consulted, Martine. see note. - Crestor 40 mg a day in addition to aspirin 81 mg a day and Plavix 75 mg a day - gabapentin p.r.n. for headache (2) UTI (urinary tract infection): Qualifiers: Hematuria presence: without hematuria Urinary tract infection type: acute cystitis Qualified Code(s): N30.00 - Acute cystitis without hematuria Code(s): N39.0 - Urinary tract infection, site not specified Status: Suspected Assessment and Plan: - UA: cloudy, 1+ leuks, 6-10 WBC, occasional epithelial cells. may be contaminate, however had retention on exam. will follow culture. - UC: negative - previous micro reviewed, no previous resistances - started on Ceftriaxone on 04/07, transitioned to keflex and course to be completed today (3) Urinary retention: Code(s): R33.9 - Retention of urine, unspecified Status: Acute Assessment and Plan: - bladder scan in the ED showed 760 mL - andino catheter placed - started on Flomax - monitor I&Os (4) Hypertension: Qualifiers: Hypertension type: primary hypertension Qualified Code(s): I10 - Essential (primary) hypertension Code(s): I10 - Essential (primary) hypertension Status: Chronic Assessment and Plan: - chronic - continue home medications: Losartan 100 mg daily and Verapamil ER 180 mg daily - monitor 04/10- reported low BP pt is at her baseline-will hold BP meds for now and give 500 ml bolus and then 150 ml/h 04/13 - patients BP remains stable only on verapamil 180 mg daily, continue to hold losartan 100 mg daily - monitor (5) BELLA (generalized anxiety disorder): Code(s): F41.1 - Generalized anxiety disorder Status: Acute Assessment and Plan: -recent health concern causing a lot of emotional strain on her - discussed and pt wants to try ssri - will add prozac and atarax prn - will need a f/u with pcp for monitoring Plan Diet:
--- NOTE | 2024-04-13 10:17 | PCNFU ---
Nutrition Follow-Up Complete: Inadequate oral intake related to loss of appetite as evidenced by poor appetite, low intakes Adequate PO intake at least 75% meals and supplements - Progressing. Intakes 0-80% meals. Continue with same goal Updated weight - Weight updated 49.8 kg Goal: Pt current nutrition is Heart healthy diet. Ensure Enlive TID for additional 350 kcal and 20 g protein each. Nutrition recommendation: No new nutrition recommendations. Continue with nutrition care plan and orders. Agree with orders. Last recorded weight is 49.8 kg. Bowel Motility: +1 BM 04/11/24 Labs Reviewed: Hgb 10.1, Hct 32.9, Glu 116 Meds Noted: Plavix, Zofran Skin: No skin issues Additional Notes: Intakes are varied; not much appetite. Supplements are ordered. Continue same orders. Monitoring intakes, weights, labs, meds, supplement tolerance, plan of care Follow up in 5 days
[2024-04-13 13:51] VITALS: BP 97/56; PULSE 86; RESP 18; TEMP 36.2; O2SAT 95
[2024-04-13 20:00] VITALS: PULSE 97
[2024-04-13 20:32] VITALS: BP 101/66; PULSE 88; RESP 18; TEMP 36.5; O2SAT 94
[2024-04-14] VITALS (9 sets, daily range): BP systolic 108–133; BP diastolic 63–69; PULSE 87–113; RESP 16–18; TEMP 35.7–36.7; O2SAT 96–97
[2024-04-14 08:03] LABS: Alanine Aminotransferase 16 U/L (6-35); Albumin Level 3.7 g/dL (3.5-5.1); Alkaline Phosphatase 80 U/L (38-126); Anion Gap 6 mmol/L (4-12); Aspartate Amino Transferase 32 U/L (14-36); Bilirubin,Total 0.3 mg/dL (0.2-1.3); Blood Urea Nitrogen 19 mg/dL (7-17); Calcium 8.9 mg/dL (8.4-10.2); Carbon Dioxide 27 mmol/L (22-30); Chloride 103 mmol/L (98-107); Estimated CRCL calculation 44 ml/min; Estimated Glomerular Filt Rate > 60; Glucose 118 mg/dL (65-110); Potassium 3.7 mmol/L (3.4-5.0); Sodium 136 mmol/L (137-145)
[2024-04-14 08:05] LABS: Basophils Absolute Auto 0.1 K/mm3 (0.0-0.1); Basophils Percent Auto 1.3 % (0.2-1.2); Eosinophils Absolute Auto 0.6 K/mm3 (0-0.3); Eosinophils Percent Auto 8.1 % (0-4.4); Hematocrit 31.8 % (37.0-47.0); Hemoglobin 9.8 g/dL (12.0-15.0); Immature Granulocyte Absolute 0.01 K/mm3 (0.00-0.031); Immature Granulocyte Percent A 0.1 % (0-0.5); Lymphocytes Absolute Auto 1.55 K/mm3 (0.9-3.2); Lymphocytes Percent Auto 20.6 % (18.3-44.2); Mean Corpuscular HGB Conc 30.8 g/dl (32-36); Mean Corpuscular Hemoglobin 27.1 pg (26-34); Mean Corpuscular Volume 87.8 fl (80-100); Monocytes Absolute Auto 0.7 K/mm3 (0.1-0.6); Monocytes Percent Auto 9.2 % (2.6-8.5); Neutrophils Absolute Auto 4.6 K/mm3 (1.3-6.7); Neutrophils Percent Auto 60.7 % (45.5-73.1); Platelet Count Result 208 k/mm3 (150-375); Red Blood Count 3.62 M/mm3 (4.2-5.4); White Blood Count 7.5 K/mm3 (4.5-10.0)
--- NOTE | 2024-04-14 08:40 | PM.IMPN ---
Progress Note: A&P Assessment and Plan (1) Acute stroke due to ischemia: Code(s): I63.9 - Cerebral infarction, unspecified Status: Acute Assessment and Plan: New left sided weakness, neglect, and worsening visual deficits on exam (previously had right homonomous upper quadrant anopsia, now has left homonymous hemianopsia). Last known well was 10:30 p.m. on 04/06. - Head/Neck CTA: 1. 40% stenosis of the right carotid bulb relative to normal distal artery lumen diameter (NASCET criteria). 2. 0% stenosis of the left carotid bulb relative to normal distal artery lumen diameter. 3. Occlusion of the proximal left vertebral artery with reconstitution of the atretic mid to distal artery. 4. Moderate, 50-70% stenosis at the intracranial right vertebral artery. 5. Extensive atherosclerotic calcifications throughout the intracranial portions of the bilateral internal carotid arteries with moderate stenosis at the lacerum segment of the right internal carotid artery. 6. Severe, >70% stenosis at the distal right P1 segment. 7. Moderate sized old infarcts at the posterior medial left temporal lobe and anterior left occipital lobe and at the right temporal lobe and temporoparietal regions. - MRI 1. Acute infarct involving the medial right temporal and occipital lobes in the right posterior cerebral artery vascular distribution. 2. Unchanged chronic infarct with laminar necrosis in the lateral left occipital and in the right temporoparietal regions, small old right cerebellar infarct and early chronic infarct at the medial left temporal and occipital lobes in the left posterior cerebral artery vascular distribution 3. Moderate scattered nonspecific white matter T2 hyperintensity likely sequela of chronic small vessel ischemic disease. - call to [facility] telestroke at 19:30. Spoke with Goodman SILVA, recommended repeating CVA workup and to consider loop recorder, will defer to neurology. No thrombectomy indicated at this time. Out of the window for TPA. - neurology consulted, Martine. see note. - Crestor 40 mg a day in addition to aspirin 81 mg a day and Plavix 75 mg a day - gabapentin p.r.n. for headache 04/14: Patient was a bit more lethargic today during assessment. Spoke with Dr. Farley who evaluated patient today as well. No new intervention required at this time. Continue to monitor with neuro checks and await placement. (2) UTI (urinary tract infection): Qualifiers: Hematuria presence: without hematuria Urinary tract infection type: acute cystitis Qualified Code(s): N30.00 - Acute cystitis without hematuria Code(s): N39.0 - Urinary tract infection, site not specified Status: Suspected Assessment and Plan: - UA: cloudy, 1+ leuks, 6-10 WBC, occasional epithelial cells. may be contaminate, however had retention on exam. will follow culture. - UC: negative - previous micro reviewed, no previous resistances - started on Ceftriaxone on 04/07, transitioned to keflex and course to be completed today (3) Urinary retention: Code(s): R33.9 - Retention of urine, unspecified Status: Acute Assessment and Plan: - bladder scan in the ED showed 760 mL - andino catheter placed - started on Flomax - monitor I&Os (4) Hypertension: Qualifiers: Hypertension type: primary hypertension Qualified Code(s): I10 - Essential (primary) hypertension Code(s): I10 - Essential (primary) hypertension Status: Chronic Assessment and Plan: - chronic - continue home medications: Losartan 100 mg daily and Verapamil ER 180 mg daily - monitor 04/10- reported low BP pt is at her baseline-will hold BP meds for now and give 500 ml bolus and then 150 ml/h 04/13 - patients BP remains stable only on verapamil 180 mg daily, continue to hold losartan 100 mg daily - monitor (5) BELLA (generalized anxiety disorder): Code(s): F41.1 - Generalized anxiety disorder Status: Acute
[2024-04-14] MEDS: FLUoxetine HCL 20 MG CAPSULE PO (08:55)
[2024-04-14] MEDS: VERAPAMIL HCL 180 MG TABLET ER PO (08:55)
[2024-04-14] MEDS: CLOPIDOGREL BISULFATE 75 MG TABLET PO (08:55)
[2024-04-14] MEDS: LEFLUNOMIDE 20 MG TABLET PO (08:55)
[2024-04-14] MEDS: TAMSULOSIN HCL 0.4 MG CAPSULE PO (08:55)
[2024-04-14] MEDS: ROSUVASTATIN 20 MG TABLET 40 MG PO (08:55)
[2024-04-14] MEDS: ASPIRIN 81 MG ENTERIC TABLET PO (08:55)
[2024-04-14] MEDS: ACETAMINOPHEN 500 MG TABLET 1000 MG PO ×2 (12:43→18:33)
--- NOTE | 2024-04-14 17:50 | WPDNEUROPN ---
Progress Note: A&P Assessment and Plan (1) Acute cerebrovascular accident (CVA) due to occlusion of right posterior cerebral artery: Code(s): I63.531 - Cerebral infarction due to unspecified occlusion or stenosis of right posterior cerebral artery Status: Acute (2) Cerebrovascular accident (CVA) due to embolism of left posterior cerebral artery: Code(s): I63.432 - Cerebral infarction due to embolism of left posterior cerebral artery Status: Acute Plan The patient is on aspirin, Plavix and a Crestor 40 mg a day. She should continue with these. I spoke to understands the situation and is a very supportive of her. She is planned to go to a rehab facility for further therapy. I shall be glad to see her for follow-up in my office. Subjective Date/time seen: 04/14/24 17:50 Interval history: The patient is 63-year-old with history of for bilateral posterior cerebral artery stroke the most recent 1 being on the right side with residual left homonymous hemianopia and left hemiparesis. She has residual finding from the previous left [employer] infarct leading to a right upper quadrant anopsia. She has been through physical therapy. There has not been any significant improvement in her condition. was by the bedside. She is planning to be sent to a rehab unit for further therapy. Review of Systems Review of Systems: No additional symptoms Exam Narrative: Patient appears awake and alert however intermittently drowsy. She has right lower field of vision available the other 3 quadrants are absent as before in other words she has right upper quadrant anopsia and left homonymous hemianopia. She has moderate weakness of the left upper and lower limb. No involuntary movements seen. No additional new findings were noted. Objective Data Vital Signs Vital Signs: Vital Signs - 24 hr 04/13/24 20:32 04/13/24 20:00 04/13/24 20:00 Temperature 97.7 F Pulse Rate 88 97 Respiratory Rate 18 Blood Pressure 101/66 Pulse Oximetry 94 Oxygen Delivery Room Air 04/14/24 00:00 04/14/24 04:00 04/14/24 06:00 Temperature 96.3 F L Pulse Rate 96 94 90 Respiratory Rate 18 Blood Pressure 133/69 Pulse Oximetry 96 Oxygen Delivery 04/14/24 08:55 04/14/24 08:55 04/14/24 12:00 Temperature Pulse Rate 88 87 Respiratory Rate Blood Pressure Pulse Oximetry Oxygen Delivery Room Air 04/14/24 14:00 Temperature 97.9 F Pulse Rate 91 Respiratory Rate 18 Blood Pressure 108/68 Pulse Oximetry 97 Oxygen Delivery Intake/Output Intake/Output: Intake & Output 04/11/24 04/12/24 04/13/24 04/14/24 23:59 23:59 23:59 23:59 Intake Total 1012 1300 966 640 Output Total 1640 1175 600 650 Balance -628 125 366 -10 Meds/Results Medications: Active Medications Generic Name Dose Route Start Last Admin Trade Name Freq PRN Reason Stop Dose Admin Acetaminophen 1,000 mg 04/07/24 16:26 04/14/24 12:43 Acetaminophen 500 Mg Tablet PO 1,000 mg Q6H PRN Administration Mild Pain (1-3) or Fever Aspirin 81 mg 04/08/24 09:00 04/14/24 08:55 Aspirin 81 Mg Enteric Tablet PO 81 mg QAM ROBERTO Administration Clopidogrel Bisulfate 75 mg 04/08/24 09:00 04/14/24 08:55 Clopidogrel Bisulfate 75 Mg Tablet PO 75 mg QAM ROBERTO Administration Fluoxetine HCl 20 mg 04/08/24 13:20 04/14/24 08:55 Fluoxetine Hcl 20 Mg Capsule PO 20 mg DAILY ROBERTO Administration Gabapentin 300 mg 04/07/24 19:34 04/12/24 20:57 Gabapentin 300 Mg Capsule PO 300 mg TID PRN Administration For headache Hydroxyzine HCl 25 mg 04/08/24 13:18 04/12/24 20:57 Hydroxyzine Hcl 25 Mg Tablet PO 25 mg Q6H PRN Administration Anxiety Leflunomide 20 mg 04/08/24 09:00 04/14/24 08:55 Leflunomide 20 Mg Tablet PO 20 mg DAILY ORBERTO Administration Lidocaine 1 patch 04/11/24 09:00 04/14/24 10:43 Lidocaine 5% Patch TRANSDERM Not Given DAILY SC
[2024-04-14] MEDS: hydrOXYzine HCL 25 MG TABLET PO (20:56)
[2024-04-15] VITALS (10 sets, daily range): BP systolic 88–155; BP diastolic 50–79; PULSE 90–102; RESP 15–16; TEMP 36.3–36.7; O2SAT 95–98
[2024-04-15 06:45] LABS: Basophils Absolute Auto 0.1 K/mm3 (0.0-0.1); Basophils Percent Auto 1.4 % (0.2-1.2); Eosinophils Absolute Auto 0.6 K/mm3 (0-0.3); Eosinophils Percent Auto 7.8 % (0-4.4); Hemoglobin 10.2 g/dL (12.0-15.0); Immature Granulocyte Absolute 0.02 K/mm3 (0.00-0.031); Immature Granulocyte Percent A 0.3 % (0-0.5); Lymphocytes Absolute Auto 1.25 K/mm3 (0.9-3.2); Lymphocytes Percent Auto 17.5 % (18.3-44.2); Mean Corpuscular HGB Conc 31.9 g/dl (32-36); Mean Corpuscular Hemoglobin 27.6 pg (26-34); Mean Corpuscular Volume 86.5 fl (80-100); Mean Platelet Volume 10.8 fl (7.4-10.4); Monocytes Absolute Auto 0.5 K/mm3 (0.1-0.6); Monocytes Percent Auto 7.6 % (2.6-8.5); Neutrophils Absolute Auto 4.7 K/mm3 (1.3-6.7); Neutrophils Percent Auto 65.4 % (45.5-73.1); Platelet Count Result 207 k/mm3 (150-375); White Blood Count 7.1 K/mm3 (4.5-10.0)
[2024-04-15 06:57] LABS: Alanine Aminotransferase 18 U/L (6-35); Albumin Level 3.9 g/dL (3.5-5.1); Alkaline Phosphatase 82 U/L (38-126); Anion Gap 8 mmol/L (4-12); Aspartate Amino Transferase 34 U/L (14-36); Bilirubin,Total 0.4 mg/dL (0.2-1.3); Blood Urea Nitrogen 19 mg/dL (7-17); Calcium 9.2 mg/dL (8.4-10.2); Carbon Dioxide 26 mmol/L (22-30); Chloride 103 mmol/L (98-107); Estimated CRCL calculation 44 ml/min; Estimated Glomerular Filt Rate > 60; Glucose 119 mg/dL (65-110); Potassium 3.8 mmol/L (3.4-5.0); Sodium 137 mmol/L (137-145)
--- NOTE | 2024-04-15 07:25 | P.PNIM_ITS ---
Progress Note: A&P Assessment and Plan (1) Acute stroke due to ischemia: Code(s): I63.9 - Cerebral infarction, unspecified Status: Acute Assessment and Plan: New left sided weakness, neglect, and worsening visual deficits on exam (previously had right homonomous upper quadrant anopsia, now has left homonymous hemianopsia). Last known well was 10:30 p.m. on 04/06. - Head/Neck CTA: 1. 40% stenosis of the right carotid bulb relative to normal distal artery lumen diameter (NASCET criteria). 2. 0% stenosis of the left carotid bulb relative to normal distal artery lumen diameter. 3. Occlusion of the proximal left vertebral artery with reconstitution of the atretic mid to distal artery. 4. Moderate, 50-70% stenosis at the intracranial right vertebral artery. 5. Extensive atherosclerotic calcifications throughout the intracranial portions of the bilateral internal carotid arteries with moderate stenosis at the lacerum segment of the right internal carotid artery. 6. Severe, >70% stenosis at the distal right P1 segment. 7. Moderate sized old infarcts at the posterior medial left temporal lobe and anterior left occipital lobe and at the right temporal lobe and temporoparietal regions. - MRI 1. Acute infarct involving the medial right temporal and occipital lobes in the right posterior cerebral artery vascular distribution. 2. Unchanged chronic infarct with laminar necrosis in the lateral left occipital and in the right temporoparietal regions, small old right cerebellar infarct and early chronic infarct at the medial left temporal and occipital lobes in the left posterior cerebral artery vascular distribution 3. Moderate scattered nonspecific white matter T2 hyperintensity likely sequela of chronic small vessel ischemic disease. - call to [facility] telestroke at 19:30. Spoke with Goodman SILVA, recommended repeating CVA workup and to consider loop recorder, will defer to neurology. No thrombectomy indicated at this time. Out of the window for TPA. - neurology consulted, Martine. see note. - Crestor 40 mg a day in addition to aspirin 81 mg a day and Plavix 75 mg a day - gabapentin p.r.n. for headache 04/14: Patient was a bit more lethargic today during assessment. Spoke with Dr. Farley who evaluated patient today as well. No new intervention required at this time. Continue to monitor with neuro checks and await placement. (2) UTI (urinary tract infection): Qualifiers: Hematuria presence: without hematuria Urinary tract infection type: acute cystitis Qualified Code(s): N30.00 - Acute cystitis without hematuria Code(s): N39.0 - Urinary tract infection, site not specified Status: Suspected Assessment and Plan: - UA: cloudy, 1+ leuks, 6-10 WBC, occasional epithelial cells. may be contaminate, however had retention on exam. will follow culture. - UC: negative - previous micro reviewed, no previous resistances - started on Ceftriaxone on 04/07, transitioned to keflex and course to be completed today (3) Urinary retention: Code(s): R33.9 - Retention of urine, unspecified Status: Acute Assessment and Plan: - bladder scan in the ED showed 760 mL - andino catheter placed - started on Flomax - monitor I&Os (4) Hypertension: Qualifiers: Hypertension type: primary hypertension Qualified Code(s): I10 - Essential (primary) hypertension Code(s): I10 - Essential (primary) hypertension Status: Chronic Assessment and Plan: - chronic - continue home medications: Losartan 100 mg daily and Verapamil ER 180 mg daily - mon
[2024-04-15] MEDS: VERAPAMIL HCL 180 MG TABLET ER PO (08:45)
[2024-04-15] MEDS: CLOPIDOGREL BISULFATE 75 MG TABLET PO (08:45)
[2024-04-15] MEDS: ASPIRIN 81 MG ENTERIC TABLET PO (08:45)
[2024-04-15] MEDS: TAMSULOSIN HCL 0.4 MG CAPSULE PO (08:46)
[2024-04-15] MEDS: FLUoxetine HCL 20 MG CAPSULE PO (08:46)
[2024-04-15] MEDS: LIDOCAINE 5% PATCH 1 PATCH TRANSDERM (08:46)
[2024-04-15] MEDS: ROSUVASTATIN 20 MG TABLET 40 MG PO (08:46)
[2024-04-15] MEDS: ACETAMINOPHEN 500 MG TABLET 1000 MG PO (08:56)
[2024-04-15] MEDS: LEFLUNOMIDE 20 MG TABLET PO (08:56)
[2024-04-15] MEDS: GABAPENTIN 300 MG CAPSULE PO (08:56)
--- NOTE | 2024-04-15 16:20 | PM.DS ---
DS: Admitting Diagnosis Discharge Date 04/15/2024 Admitting Diagnosis Acute stroke due to ischemia Urinary tract infection urinary retention hypertension generalized anxiety disorder DS: Discharge Diagnosis Discharge Diagnosis (1) Acute stroke due to ischemia: Code(s): I63.9 - Cerebral infarction, unspecified Status: Acute (2) UTI (urinary tract infection): Qualifiers: Hematuria presence: without hematuria Urinary tract infection type: acute cystitis Qualified Code(s): N30.00 - Acute cystitis without hematuria Code(s): N39.0 - Urinary tract infection, site not specified Status: Suspected (3) Urinary retention: Code(s): R33.9 - Retention of urine, unspecified Status: Acute (4) Hypertension: Qualifiers: Hypertension type: primary hypertension Qualified Code(s): I10 - Essential (primary) hypertension Code(s): I10 - Essential (primary) hypertension Status: Chronic (5) BELLA (generalized anxiety disorder): Code(s): F41.1 - Generalized anxiety disorder Status: Acute DS: Summary Hospital Course Reason for hospitalization: Acute stroke due to ischemia Urinary tract infection urinary retention hypertension generalized anxiety disorder Hospital Course: 63 y/o F presents here with altered mental status with PMH of CVA (01/2024, left posterior cerebral artery), diabetes, HTN, and rheumatoid arthritis. Patinet had new left sided weakness, neglect, and worsening visual deficits on admission (previously had right homonomous upper quadrant anopsia, now has left homonymous hemianopsia). Last known well was 10:30 p.m. on 04/06. per chart review, a call was made to [facility] telestroke and that provider spoke with Goodman SILVA, recommended repeating CVA workup and to consider loop recorder. This was deferred to neurology. No thrombectomy indicated at this time and patient was out of the window for TPA. Neurology consulted. Labs seemingly unremarkable. Patient had a head neck CTA which showed 40% stenosis of the right carotid and 0% stenosis of the left, 50-70% stenosis of the right vertebral artery, extensive calcifications to the bilateral internal carotid arteries, greater than 70% stenosis of the distal right P1 segment and moderate old infarcts. An MRI showed a acute infarct involving the medial right temporal and occipital lobes and a right posterior cerebral artery vascular distribution. Neurology was recommending supportive care . She has remained on her aspirin, Plavix and Crestor. Patient was also started on gabapentin as needed for headaches. During admission per chart review, neurology had a discussion about possible thrombectomy however given the location of the stroke patient will be at increased risk of complications. It was decided medical management would be done instead. Patient is to follow up with Neurology. During admission patients urinalysis was concerning for UTI she was started on IV antibiotics. Urine culture was negative however she completed course of antibiotics during her admission. Patient was noted to have urinary retention requiring a Fernandez catheter placed. A voiding trial was performed however patient did not urinate and did not have enough urine in her bladder to replace the catheter. RN called [facility] who states that they can obtain a bladder scan to reassess for urinary retention while she is there. Blood cultures were drawn and negative on final results. She is to continue working with therapy [facility]. Prior discharge patient had no complaints. Denies chest pain, shortness for breath, nausea /vomiting, abdominal pain. Patient discharged in stable condition to [facility]. She is to continue her medications as prescribed and follow up with neurology. Patient is also to follow up with her primary care provider in 1 week. Status at Discharge Functional status at discharge: uses cane/walker Time Spent with Patient Time attestation: Total time spen
--- NOTE | 2024-04-15 17:16 | PC.NURSE ---
at 1330, notified hSu ZARATE that pt has not voided since her andino removal at 0915, bladder scan amount at 1300 was 125. Provider would like me to call and ask if [facility] will accept patient when void trial is still in process. spoke with [facility] steel pan form placing supervisor and verified that they can do void trial, bladder scan, and andino insertion if needed. they are able to. Let Shu know, patient to DC
[2024-04-23 19:43] LABS: ANCA Screen NEGATIVE (NEGATIVE)
== END 2024-04-15 18:00 | DRG 65 ==
LOC: ANHED 10:51 → ANH3MEDSUR 13:02
PROVIDERS: Emergency Medicine; Internal Medicine; Psychiatry & Neurology Neurology; Student in an Organized Health Care Education/Training Program; Admitting Provider Internal Medicine; Emergency Provider Emergency Medicine; PCP Internal Medicine; Visit Provider Student in an Organized Health Care Education/Training Program
DX: I63.533 Cerebral infarction due to unspecified occlusion or stenosis of bilateral posterior cerebral arteries (principal); G81.94 Hemiplegia, unspecified affecting left nondominant side; R41.4 Neurologic neglect syndrome; H53.462 Homonymous bilateral field defects, left side; R41.82 Altered mental status, unspecified; R29.708 NIHSS score 8; R33.9 Retention of urine, unspecified; F41.1 Generalized anxiety disorder; I10 Essential (primary) hypertension; E11.9 Type 2 diabetes mellitus without complications; M06.9 Rheumatoid arthritis, unspecified; Z87.891 Personal history of nicotine dependence; Z79.82 Long term (current) use of aspirin; I69.398 Other sequelae of cerebral infarction; H53.461 Homonymous bilateral field defects, right side
CPT/HCPCS: 36415; 70496; 70498; 70553; 80053; 80061; 80307; 81001; 82948; 84484; 85025; 85610; 85730; 86036; 86038; 86039; 86850; 86900; 86901; 87040; 87086; 87088; 92610; 93005; 95816; 96125; 96365; 97110; 97112; 97162; 97166; 97530; 97535; 99285; A9270; A9577; G0378; J0696; J7030; Q9967

== ENCOUNTER 2024-04-19 15:21 | Emergency (ER) | payer OTHER, SELFPAY ==
[2024-04-19] VITALS (8 sets, daily range): BP systolic 100–143; BP diastolic 59–77; PULSE 76–89; RESP 10–16; TEMP 36.8–37.2; O2SAT 87–98
--- NOTE | ~2024-04-19 | CT_ITS ---
EXAMINATION: CT brain wo con DATE: 04/19/2024 17:32 INDICATION: Altered mental status. TECHNIQUE: Computed tomography (CT) of the head was performed without intravenous contrast. The mA wa s adjusted according to patient size. Iterative reconstruction technique was employed. The dose-lengt h product was 605.33 mGy-cm. COMPARISON: Head CT 04/07/2024 FINDINGS: There is a subacute infarct involving right internal capsule and right temporal occipital r egion. There is an old infarct in right temporal parietal region. There is an old infarct in left tem poral occipital region. There is an old infarct in left frontal lobe. There are scattered areas of lo w attenuation in the cerebral white matter. There is no intracranial hemorrhage, acute infarction, or abnormal intracranial mass lesion. The ventricles are normal in size. There is mild mucosal thickeni ng in left maxillary sinus. The orbits are normal. The mastoid air cells are normal. IMPRESSION: 1. Subacute infarct involving right internal capsule and right temporal occipital region, worsened fr om 04/07/2024. 2. Old infarcts involving the right temporal parietal region, left temporal occipital region, and lef t frontal lobe. 3. Extensive nonspecific cerebral white matter disease, which likely represents chronic small vessel ischemic disease. Reviewed, dictated and finalized at location A. IMPRESSION: 1. Subacute infarct involving right internal capsule and right temporal occipit al region, worsened from 04/07/2024. 2. Old infarcts involving the right temporal parietal region, left temporal occ ipital region, and left frontal lobe. 3. Extensive nonspecific cerebral white matter disease, which likely represents chronic small vessel ischemic disease.
--- NOTE | 2024-04-19 15:33 | ECG_ITS ---
Test Date: 2024-04-19 15:35:00 Measurements Intervals [place] Rate: 77 P: 41 VT: 158 QRS: 24 QRSD: 81 T: 73 QT: 370 QTc: 420 Interpretive Statements SINUS RHYTHM WITHIN NORMAL LIMITS Compared to ECG 04/07/2024 06:56:50 T-wave abnormality no longer present Electronically Signed On 04-20-2024 07:11:14 CDT by Quan Abbasi M.D.
[2024-04-19 15:38] LABS: Glucose Point of Care 136 mg/dl (65-105)
[2024-04-19 15:51] LABS: Basophils Absolute Auto 0.1 K/mm3 (0.0-0.1); Basophils Percent Auto 1.3 % (0.2-1.2); Eosinophils Absolute Auto 0.4 K/mm3 (0-0.3); Eosinophils Percent Auto 5.4 % (0-4.4); Hematocrit 31.3 % (37.0-47.0); Immature Granulocyte Absolute 0.02 K/mm3 (0.00-0.031); Immature Granulocyte Percent A 0.3 % (0-0.5); Lymphocytes Absolute Auto 1.47 K/mm3 (0.9-3.2); Lymphocytes Percent Auto 20.8 % (18.3-44.2); Mean Corpuscular HGB Conc 31.9 g/dl (32-36); Mean Corpuscular Hemoglobin 27.9 pg (26-34); Mean Corpuscular Volume 87.4 fl (80-100); Mean Platelet Volume 10.7 fl (7.4-10.4); Monocytes Absolute Auto 0.7 K/mm3 (0.1-0.6); Monocytes Percent Auto 10.1 % (2.6-8.5); Neutrophils Absolute Auto 4.4 K/mm3 (1.3-6.7); Neutrophils Percent Auto 62.1 % (45.5-73.1); Platelet Count Result 262 k/mm3 (150-375); Red Blood Count 3.58 M/mm3 (4.2-5.4); Red Cell Distribution Width 14.1 % (11.5-14.5); White Blood Count 7.1 K/mm3 (4.5-10.0)
[2024-04-19 16:00] LABS: Prothrombin Time 13.4 Seconds (11.1-14.7)
[2024-04-19 16:01] LABS: Partial Thromboplastin Time 22.2 Seconds (22.3-36.8)
[2024-04-19 16:03] LABS: Alanine Aminotransferase 22 U/L (6-35); Albumin Level 3.9 g/dL (3.5-5.1); Alkaline Phosphatase 61 U/L (38-126); Anion Gap 10 mmol/L (4-12); Aspartate Amino Transferase 41 U/L (14-36); Bilirubin,Total 0.5 mg/dL (0.2-1.3); Blood Urea Nitrogen 23 mg/dL (7-17); Calcium 9.3 mg/dL (8.4-10.2); Carbon Dioxide 26 mmol/L (22-30); Chloride 99 mmol/L (98-107); Estimated CRCL calculation 48 ml/min; Estimated Glomerular Filt Rate > 60; Glucose 136 mg/dL (65-110); Potassium 4.1 mmol/L (3.4-5.0); Sodium 135 mmol/L (137-145)
[2024-04-19 16:06] LABS: Add Urine Microscopic? YES; Appearance Urine Turbid (Clear); Bacteria Urine None Seen /hpf; Bilirubin Urine Negative (Negative); Blood Urine 3+ (Negative); Budding Yeast Urine Present /hpf; Color Urine Yellow (Yellow); Glucose Urine UA Negative (Negative); Ketones Urine Negative (Negative); Leukocyte Esterase Ur 3+ LEU/UL (Negative); Need Manual Microscopic Reviewed; Nitrate Urine Negative (Negative); Protein Urine 1+ mg/dL (Negative); RBC Urine >100 /hpf (0-2); Specific Grav Ur 1.015 (1.001-1.035); Squamous Epithelial Cell Urine None Seen /hpf (Few); Urobilinogen Urine 0.2 mg/dL (<2.0); WBC Urine >100 /hpf (0-3); pH Urine 5.5 (5.0-9.0)
--- NOTE | 2024-04-19 18:09 | ED.AMS ---
HPI - Altered Mental Status General Chief Complaint: Altered Mental Status <HA Jamesno Last Filed: 04/21/24 09:06> Stated Complaint: AMS <HA Jameson Last Filed: 04/21/24 09:06> Time Seen by Provider: 04/19/24 17:14 <HA Jameson Last Filed: 04/21/24 09:06> Source: patient and EMS <HA Jameson Last Filed: 04/21/24 09:06> Mode of arrival: EMS <HA Jameson Last Filed: 04/21/24 09:06> Limitations: altered mental status <HA Jameson Last Filed: 04/21/24 09:06> History of Present Illness HPI narrative: This is a 63-year-old female that presents to the emergency department for altered mental status. Patient recently suffered from a stroke. Is currently in rehab. Reportedly she has had declining mental status over the last 2 days. Has been on antibiotics for a possible UTI without improvement which prompted them to send her to the ER for further evaluation. <HA Jameson Last Filed: 04/21/24 09:06> Related Data Home Medications: Home Medications Medication Instructions Recorded Confirmed aspirin 81 mg chewable tablet 81 mg PO DAILY ##0 01/29/24 04/15/24 leflunomide 20 mg tablet 20 mg PO DAILY 01/29/24 04/15/24 rosuvastatin 20 mg tablet 40 mg PO DAILY 03/27/24 04/15/24 verapamil 180 mg tablet,extended 180 mg PO DAILY 04/07/24 04/15/24 release <HA Jameson Last Filed: 04/21/24 09:06> Allergies/Adverse Reactions: Allergies Allergy/AdvReac Type Severity Reaction Status Date / Time No Known Allergies Allergy Verified 04/07/24 13:52 <HA Jameson Last Filed: 04/21/24 09:06> Review of Systems Review of Systems: ROS unobtainable: Yes unobtainable due to mental status <HA Jameson Last Filed: 04/21/24 09:06> [facility] Past Medical History Medical History: Medical History Acute cerebrovascular accident (CVA) due to occlusion of right posterior cerebral artery Arthritis Bilateral hand pain Cerebrovascular accident (CVA) due to embolism of left posterior cerebral artery Encounter for screening for other viral diseases Hypertension Inflammatory arthritis (~02/2020) Neck pain Prediabetes A1C 6.2% on 01/29/2024 Rheumatoid arthritis Rheumatoid arthritis, seropositive, multiple sites <Umm Hodge PA-C - Last Filed: 04/21/24 09:06> Family History Family History: Family History Mother Hypertension Diabetes mellitus Father Hypertension Sibling Hypertension Diabetes mellitus <Umm Hodge PA-C - Last Filed: 04/21/24 09:06> Social History Social History: Social History Smoking packs per day: 1 Smoking cigarettes per day: 20.0 Years smoked: 40 Smoking pack-years: 40.00 Smoking status: Former smoker Tobacco type: cigarettes Alcohol intake: never Substance use: never Substance use type: does not use Do You Feel Safe in your Home?: Yes Lack of Transportation: No Lack of Food: Never True Current Housing: I Have Housing Concerned About Future Housing: No Difficulty Paying Gas/Electric Bills: No Difficulty Paying for Meds: No Currently Unemployed: No Education: Don't Know Difficulty w/ Childcare or Family Care: No Living arrangements: with family Occupation/Education: occupation Gender identity (if verbalized by the patient): Female Spiritual care concerns: No <Umm Hodge PA-C - Last Filed: 04/21/24 09:06> Exam Narrative: GENERAL: Lethargic, well-nourished, and in no acute distress. HEAD: Normocephalic, atraumatic. EYES: PERRLA and EOMI. ENT: Nares clear, no rhinorrhea or epistaxis. Mucous membranes moist. Oropharynx without tonsillar hypertrophy exudate or other lesions. Bilateral TMs pearly rodriges non-
--- NOTE | 2024-04-19 19:05 | PC.NURSE ---
CALL RECEIVED FROM [facility]; SPOKE W/ MILAGROS - STATES SHE IS TRYING TO TRANSFER PT TO [facility] AND WILL CALL BACK WHEN THERE IS A BED.
[2024-04-19 20:28] LABS: Lactic Acid Reflex 0.8 mmol/L (0.7-2.0)
--- NOTE | 2024-04-19 20:59 | PC.NURSE ---
Spoke to transfer center at at 2026 pt assigned bed 203 bed 2, number for report [phone]
--- NOTE | 2024-04-19 21:00 | PC.NURSE ---
attempted to call report to [facility], was on hold for 15 minutes and was not able to speak to the nurse receiving the pt
--- NOTE | 2024-04-19 21:50 | PC.NURSE ---
Gave report to Jossy at [facility], she confirmed the hospitals address as [address] [place] [address]
[2024-04-20 00:35] VITALS: BP 104/71; PULSE 84; RESP 12; O2SAT 95
[2024-04-20 02:25] VITALS: BP 112/58; PULSE 77; RESP 12; O2SAT 100
== END 2024-04-20 02:53 | disposition short-term general hospital (02) ==
PROVIDERS: Emergency Medicine; Emergency Provider Physician Assistant; PCP Internal Medicine
DX: I63.9 Cerebral infarction, unspecified (principal); N39.0 Urinary tract infection, site not specified; M19.90 Unspecified osteoarthritis, unspecified site; I10 Essential (primary) hypertension; M06.9 Rheumatoid arthritis, unspecified; Z86.73 Personal history of transient ischemic attack (TIA), and cerebral infarction without residual deficits
CPT/HCPCS: 36415; 70450; 80053; 81001; 82948; 83605; 85025; 85610; 85730; 87040; 87086; 93005; 96365; 96366; 99285; J0696

== ENCOUNTER 2024-05-03 16:31 | Inpatient (IN) | payer OTHER, SELFPAY ==
[2024-05-03 16:49] VITALS: BP 123/78; PULSE 99; RESP 18; TEMP 35.9; O2SAT 98; BMI 20.6
--- NOTE | 2024-05-03 17:14 | PC.NURSE ---
Patient arrived via ambulance from [facility]. Rubén admitted to room 207 for PT/OT services. Patient required 3 assist from stretcher to bed. Patient educated on use of call light and patient's educated on hospital policies, bed control and use of call light. Admission packet given to patient's . voiced understanding of general hospital policies.
--- NOTE | 2024-05-03 17:31 | PC.NURSE ---
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 also stated that patient forgets about her left side. During director underwriter sales's assessment, patient is able to move left extremities on command with noted weakness compared to patient's right side. Capacitor Tester also noted that patient sometimes speaks using a jumbled mixture of words. ST eval may be helpful.
[2024-05-03] MEDS: RIVAROXABAN 15 MG TABLET PO (18:20)
--- NOTE | 2024-05-03 19:19 | PC.NURSE ---
Family has left, patient noted calling out in room. Increased anxiety noted, spoke calmly with patient, attempted to reorient her, interventions have limited effectiveness. Patient continues calling out intermittently.
[2024-05-03] MEDS: hydrOXYzine HCL 25 MG TABLET PO (19:52)
[2024-05-03] MEDS: ROSUVASTATIN 10 MG TABLET 20 MG PO (19:58)
[2024-05-03] MEDS: DIVALPROEX SODIUM SPRINKLE 125 MG CAP.DR 500 MG PO (19:58)
[2024-05-03 20:00] VITALS: PULSE 99; RESP 18; O2SAT 98
[2024-05-03] MEDS: LORazepam (*CRX) 0.5 MG TABLET PO (20:38)
--- NOTE | 2024-05-03 20:38 | PC.NURSE ---
Patient continues to yell out, looking for Nav , noted to have word salad, making statements that don't make sense, depends dry fluids offered and taken well. Patient remains calm while staff in room, but continues the yelling once alone. Unable to reorient patient, and other interventions have limited effectiveness, PRN Ativan given.
[2024-05-04] VITALS: BP 120/68; PULSE 100; RESP 18; TEMP 36.3; O2SAT 96
[2024-05-04 05:09] LABS: Hematocrit 26.4 % (35.0-49.0); Hemoglobin 8.3 g/dL (12.0-15.0); Mean Corpuscular HGB Conc 31.4 g/dL (32-36); Mean Corpuscular Hemoglobin 27.8 pg (27.0-31.0); Mean Corpuscular Volume 88.3 fL (78.0-102.0); Mean Platelet Volume 10.4 fl (9.2-11.8); Platelet Count Result 221 K/mm3 (150-420); Red Blood Count 2.99 M/mm3 (4.20-5.40); Red Cell Distribution Width 15.1 % (11.6-14.4)
[2024-05-04 05:24] LABS: Hemoglobin A1C 5.5 % (<5.7)
[2024-05-04 05:25] LABS: Alanine Aminotransferase 20 U/L (14-59); Albumin Level 2.7 g/dL (3.4-5.0); Alkaline Phosphatase 63 U/L (46-116); Anion Gap 9 mmol/L (4-12); Aspartate Amino Transferase 34 U/L (15-37); Bilirubin,Total 0.3 mg/dL (0.00-1.00); Blood Urea Nitrogen 20 mg/dL (7-18); Calcium 9.1 mg/dL (8.5-10.1); Carbon Dioxide 27 mmol/L (21-32); Chloride 107 mmol/L (98-108); Estimated CRCL calculation 53 ml/min; Estimated Glomerular Filt Rate > 60; Glucose 100 mg/dL (70-99); Osmolality Calculated 298 mOsm/kg (285-295); Potassium 3.6 mmol/L (3.5-5.1); Sodium 143 mmol/L (136-145); Total Protein 5.9 g/dL (6.4-8.2)
[2024-05-04 05:33] LABS: Band Neutrophils Percent 0 % (0-6); Basophils Absolute Manual 0.04 K/mm3 (0-0.1); Basophils Percent Manual 1 % (0-1); Eosinophils Absolute Manual 0.32 K/mm3 (0.02-0.50); Eosinophils Percent Manual 8 % (1-6); Hypochromasia 2+; Lymphocytes Absolute Manual 1.96 K/mm3 (1.1-4.5); Lymphocytes Percent Manual 49 % (18-44); Monocytes Absolute Manual 0.36 K/mm3 (0.1-0.90); Monocytes Percent Manual 9 % (3-9); Neutrophils Absolute Manual 1.32 K/mm3 (1.7-7.2); Neutrophils Percent Manual 33 % (46-73); Platelet Estimate Adequate (Adequate); Total Cells Counted 100
[2024-05-04 08:00] VITALS: BP 129/70; PULSE 100; RESP 14; TEMP 36; O2SAT 6
[2024-05-04 08:10] LABS: Glucose Point of Care 107 mg/dl (65-105)
--- NOTE | 2024-05-04 09:21 | P.HP_ITS ---
H&P: HPI History of Present Illness Date/Time: 05/04/24 09:21 Chief Complaint: Weakness/unsteady gait post stroke Narrative: Patient is a 63-year-old [place] female who was admitted to [facility] for rehabilitation following an acute cerebrovascular accident due to occlusion of the right posterior cerebral artery. patient has known past medical history of previous CVA to the left posterior cerebral artery, hypertension, and RA. patient had been seen by a vascular surgeon who initiated patient on Xarelto plan for follow-up after discharge. Patient was admitted to the swing bed due to left-sided weakness and new vision loss. Patient denied any chest pain, shortness of breath, nausea, vomiting, difficulty urinating or defecating. Review of Systems Review of Systems: All systems reviewed & are unremarkable except as noted in HPI and below PMFSH Past Medical History Medical History Acute cerebrovascular accident (CVA) due to occlusion of right posterior cerebral artery Arthritis Bilateral hand pain Cerebrovascular accident (CVA) due to embolism of left posterior cerebral artery Encounter for screening for other viral diseases Hypertension Inflammatory arthritis (~02/2020) Neck pain Prediabetes A1C 6.2% on 01/29/2024 Rheumatoid arthritis Rheumatoid arthritis, seropositive, multiple sites Family History Family History Mother Hypertension Diabetes mellitus Father Hypertension Sibling Hypertension Diabetes mellitus Social History Social History Smoking packs per day: 1 Smoking cigarettes per day: 20.0 Years smoked: 10 Smoking pack-years: 10.00 Smoking status: Former smoker Tobacco type: cigarettes Second hand tobacco smoke exposure: No Smoking end date: 05/03/24 Alcohol intake: never Substance use: never Substance use type: does not use Do You Feel Safe in your Home?: Yes Lack of Transportation: No Lack of Food: Never True Current Housing: I Have Housing Concerned About Future Housing: No Difficulty Paying Gas/Electric Bills: No Difficulty Paying for Meds: No Currently Unemployed: No Education: Don't Know Difficulty w/ Childcare or Family Care: No Living arrangements: with family Occupation/Education: occupation Gender identity (if verbalized by the patient): Female Spiritual care concerns: No Meds Home Medications and Allergies Home Medications Medication Instructions Recorded Confirmed Type leflunomide 20 mg tablet 20 mg PO DAILY 01/29/24 05/03/24 History clopidogrel 75 mg tablet 75 mg PO QAM #30 tabs 02/01/24 05/03/24 Rx rosuvastatin 20 mg tablet 20 mg PO DAILY 03/27/24 05/03/24 History ondansetron 4 mg disintegrating 4 mg PO Q8H PRN nausea and 03/28/24 05/03/24 Rx tablet vomiting #30 tabs verapamil 180 mg tablet,extended 180 mg PO DAILY 04/07/24 05/03/24 History release fluoxetine 20 mg tablet 20 mg PO DAILY #90 tabs 04/15/24 05/03/24 Rx hydroxyzine HCl 25 mg tablet 25 mg PO Q6H PRN Anxiety #30 tabs 04/15/24 05/03/24 Rx tamsulosin 0.4 mg capsule 0.4 mg PO QAM #30 caps 04/15/24 05/03/24 Rx acetaminophen 650 mg rectal 650 mg RECTAL Q6H 05/03/24 05/03/24 History suppository divalproex 125 mg capsule,delayed 500 mg PO BID 05/03/24 05/03/24 History release sprinkle docusate sodium 100 mg capsule 100 mg PO PRN PRN Constipation 05/03/24 05/03/24 History polyvinyl alcohol 1.4 % eye drops 1 drp EACH EYE TID 05/03/24 05/03/24 History rivaroxaban 2.5 mg tablet 15 mg PO BID 05/03/24 05/03/24 History Allergies Allergy/AdvReac Type Severity Reaction Status Date / Time lisinopril AdvReac Cough Verified 05/03/24 18:27 Vital Signs Vital Signs - 24 hr 05/03/24 16:49 05/03/24 16:49 05/03/24 20:00 Temperature 96.7 F L Pulse Rate 99 99 99 Respiratory Rate 18 18 18 Blood Pressure 123/78 Pulse Oximetry 98 98 98 Oxygen Delivery Room Air Room Air Room Air 05/04/24 00:00 05/04/24 08:00 Temperature 97.3 F L 96.8 F L Pulse Rate 100 100 Respiratory Rate 18 14 Blood Pressure 120/68 129/70 Pulse Oximetry 96 6 L Oxygen Delivery Room Air Room Air Exam Narrative: Physical Exam: * GENERAL: Alert and oriented x 3. No acute distress. * EYES: EOMI. No scleral icterus. Visually impaired * HEENT: Moist mucous membranes. * LUNGS: Clear to auscultation bilaterally. No accessory muscle use. * CARDIOVASCULAR: Regular rate and rhythm. No murmur. No JVD. S1-S2 * ABDOMEN: Soft, non tenderness and non-distended. No palpable masses. * EXTREMITIES: No edema. Non-tender * SKIN: No rashes or lesions. Skin warm, dry. * NEUROLOGIC: Left sided weakness * PSYCHIATRIC: Appropriate mood and affect. Good judgement and insight. No visual or auditory hallucinations. H&P: Results Labs Labs: Short CBC 05/04/24 Range/Units 05:03 WBC 4.0 L (4.8-10.8) K/mm3 Hgb 8.3 L (12.0-15.0) g/dL Hct 26.4 L (35.0-49.0) % Plt Count 221 (150-420) K/mm3 BMP 05/04/24 05:03 Sodium 143 Potassium 3.6 Chloride 107 Carbon Dioxide 27 BUN 20 H Creatinine 0.78 Glucose 100 H Calcium 9.1 Liver Function 05/04/24 Range/Units 05:03 Total Bilirubin 0.3 (0.00-1.00) mg/dL AST 34 (15-37) U/L ALT 20 (14-59) U/L Alkaline Phosphatase 63 (46-116) U/L Albumin 2.7 L (3.4-5.0) g/dL Assessment and Plan Assessment and plan (1) Type 2 diabetes mellitus with hyperglycemia: Code(s): E11.65 - Type 2 diabetes mellitus with hyperglycemia Status: Acute Assessment and Plan: * Accu-Cheks a.c. HS * sliding scale insulin * Diabetic diet * consult to dietitian * encourage lifestyle modifications and weight loss * Optimize [place] inhibitors and statins. * Watch for hypoglycemia/hypoglycemic protocol ordered (2) Gait abnormality: Code(s): R26.9 - Unspecified abnormalities of gait and mobility Status: Acute Assessment and Plan: * Secondary to CVA of the right cerebral artery * left-sided weakness/ unsteady gait * PT/OT (3) Debilitated: Code(s): R53.81 - Other malaise Status: Acute Assessment and Plan: * numerous hospital admissions * new CVA * PT/OT (4) Acute cerebrovascular accident (CVA) due to occlusion of right posterior cerebral artery: Code(s): I63.531 - Cerebral infarction due to unspecified occlusion or stenosis of right posterior cerebral artery Status: Acute Assessment and Plan: * New CVA occlusion RT cerebral artery * Previous CVA occlusion LT cerebral artery * resume patient's Xarelto, Plavix, and statin * is being followed with vascular surgery at [facility] * PT/OT (5) Hypertension: Qualifiers: Hypertension type: primary hypertension Qualified Code(s): I10 - Essential (primary) hypertension Code(s): I10 - Essential (primary) hypertension Status: Chronic Assessment and Plan: * stable * resumed her verapamil Plan Code status: Full code per patient DVT prophylaxis: Xarelto PT/OT notes: SWING Disposition: Patient was admitted to start in swing bed for continued rehabilitation post CVA with new left-sided weakness and new impaired vision. Quality VTE Prophylaxis VTE prophylaxis: pharmacologic ordered -Patient's disposition for safe discharge discussed with watch case polisher Dictation performed by [employer] direct speech recognition software, therefore harbormaster variants and typographical errors may occur. Hospitalist MIPS Advance Care Plan I have confirmed that the patient's Advanced Care Plan is present, code status is documented, or surrogate decision maker is listed in patient medical record.: Yes Medication Reconciliation I have utilized all available resources to obtain, update and review the patients current medications (includes all prescriptions, OTC, herbals, cannabis, and nutritional supplements).: Yes The patient is not eligible for med reconciliation; the patient is in a emergent medical situation where delaying treatment would jeopardize the patients health.: No
[2024-05-04] MEDS: ARTIFICIAL TEARS OPHTH SOLN 15 ML BOTTLE 1 DROP EACH EYE ×2 (09:26→17:07)
[2024-05-04] MEDS: FLUoxetine HCL 20 MG CAPSULE PO (09:27)
[2024-05-04] MEDS: DIVALPROEX SODIUM SPRINKLE 125 MG CAP.DR 500 MG PO ×2 (09:27→17:07)
[2024-05-04] MEDS: VERAPAMIL HCL 180 MG TABLET ER PO (09:27)
[2024-05-04] MEDS: TAMSULOSIN HCL 0.4 MG CAPSULE PO (09:27)
[2024-05-04] MEDS: RIVAROXABAN 15 MG TABLET PO ×2 (09:27→17:07)
[2024-05-04] MEDS: CLOPIDOGREL BISULFATE 75 MG TABLET PO (09:27)
[2024-05-04] MEDS: ROSUVASTATIN 10 MG TABLET 20 MG PO (09:28)
[2024-05-04 11:54] LABS: Glucose Point of Care 115 mg/dl (65-105)
--- NOTE | 2024-05-04 12:16 | PHAR ---
VERIFIED PT.'S HOME MED, LEFLUNOMIDE 20MG TABLET, TAKE 1 TABLET BY MOUTH DAILY.
[2024-05-04 16:00] VITALS: BP 128/64; PULSE 78; RESP 18; TEMP 36.6; O2SAT 95
[2024-05-04 17:36] LABS: Glucose Point of Care 108 mg/dl (65-105)
[2024-05-04 20:29] LABS: Glucose Point of Care 110 mg/dl (65-105)
[2024-05-04] MEDS: hydrOXYzine HCL 25 MG TABLET PO (20:29)
[2024-05-04] MEDS: ACETAMINOPHEN 325 MG TABLET 650 MG PO (20:29)
[2024-05-05] VITALS: BP 127/72; PULSE 86; RESP 16; TEMP 36.6; O2SAT 97
[2024-05-05 07:53] LABS: Glucose Point of Care 104 mg/dl (65-105)
[2024-05-05 08:00] VITALS: BP 120/65; PULSE 85; RESP 14; TEMP 35.7; O2SAT 97
[2024-05-05] MEDS: DIVALPROEX SODIUM SPRINKLE 125 MG CAP.DR 500 MG PO ×2 (09:24→17:41)
[2024-05-05] MEDS: ARTIFICIAL TEARS OPHTH SOLN 15 ML BOTTLE 1 DROP EACH EYE ×2 (09:24→17:41)
[2024-05-05] MEDS: TAMSULOSIN HCL 0.4 MG CAPSULE PO (09:25)
[2024-05-05] MEDS: FLUoxetine HCL 20 MG CAPSULE PO (09:25)
[2024-05-05] MEDS: VERAPAMIL HCL 180 MG TABLET ER PO (09:25)
[2024-05-05] MEDS: ROSUVASTATIN 10 MG TABLET 20 MG PO (09:25)
[2024-05-05] MEDS: RIVAROXABAN 15 MG TABLET PO ×2 (09:25→17:41)
[2024-05-05] MEDS: CLOPIDOGREL BISULFATE 75 MG TABLET PO (09:26)
[2024-05-05 11:54] LABS: Glucose Point of Care 125 mg/dl (65-105)
[2024-05-05] MEDS: LEFLUNOMIDE 20 MG PO (12:13)
[2024-05-05] MEDS: [UNRECOGNIZED DRUG - OTHER] PO (12:13)
[2024-05-05 16:35] VITALS: BP 105/69; PULSE 16; RESP 92; TEMP 36.3; O2SAT 96
[2024-05-05 17:10] LABS: Glucose Point of Care 121 mg/dl (65-105)
[2024-05-05] MEDS: ALPRAZolam (*CRX) 0.5 MG TABLET PO (21:29)
[2024-05-05 21:35] LABS: Glucose Point of Care 132 mg/dl (65-105)
[2024-05-06] VITALS: BP 116/73; PULSE 90; RESP 15; TEMP 36.4; O2SAT 96
[2024-05-06 08:00] VITALS: BP 135/70; PULSE 80; RESP 14; TEMP 36.6; O2SAT 98
--- NOTE | 2024-05-06 08:59 | PM.EVENT ---
Event Note Event Note Event Note: Patient with anxiety added Xanax 0.5 as needed but patient extremely lethargic will decrease to 0.25
[2024-05-06] MEDS: DIVALPROEX SODIUM SPRINKLE 125 MG CAP.DR 500 MG PO ×2 (09:10→17:51)
[2024-05-06] MEDS: FLUoxetine HCL 20 MG CAPSULE PO (09:10)
[2024-05-06] MEDS: ROSUVASTATIN 10 MG TABLET 20 MG PO (09:10)
[2024-05-06] MEDS: CLOPIDOGREL BISULFATE 75 MG TABLET PO (09:10)
[2024-05-06] MEDS: VERAPAMIL HCL 180 MG TABLET ER PO (09:10)
[2024-05-06] MEDS: TAMSULOSIN HCL 0.4 MG CAPSULE PO (09:12)
[2024-05-06] MEDS: RIVAROXABAN 15 MG TABLET PO ×2 (09:13→17:51)
[2024-05-06] MEDS: ARTIFICIAL TEARS OPHTH SOLN 15 ML BOTTLE 1 DROP EACH EYE ×3 (09:15→17:51)
[2024-05-06] MEDS: [UNRECOGNIZED DRUG - OTHER] PO (12:14)
[2024-05-06] MEDS: LEFLUNOMIDE 20 MG PO (12:14)
[2024-05-06 12:29] LABS: Glucose Point of Care 129 mg/dl (65-105)
[2024-05-06 16:40] VITALS: BP 120/80; PULSE 98; RESP 16; TEMP 36.5; O2SAT 95
[2024-05-06 17:05] LABS: Glucose Point of Care 133 mg/dl (65-105)
[2024-05-06] MEDS: ACETAMINOPHEN 325 MG TABLET 650 MG PO (21:31)
[2024-05-06] MEDS: ALPRAZolam (*CRX) 0.25 MG TABLET PO (21:32)
[2024-05-06 21:43] LABS: Glucose Point of Care 122 mg/dl (65-105)
[2024-05-07] VITALS: BP 129/57; PULSE 90; RESP 16; TEMP 36.4; O2SAT 96
--- NOTE | 2024-05-07 02:45 | PC.NURSE ---
Assumed care. Report received from Chasity MEJIA
--- NOTE | 2024-05-07 04:50 | PC.NURSE ---
patient states that the micro film is making noise. i dont want to disturb the boys especially while they are being microwaved . patient was repositioned for comfort and covered back up [facility] blankets. tv turned off.
--- NOTE | 2024-05-07 06:12 | PC.NURSE ---
depends incontinent with stool. depends changed. new, warm blankets given. repositioned for comfort
--- NOTE | 2024-05-07 07:00 | PC.NURSE ---
report given to raoul wu
[2024-05-07 08:00] VITALS: BP 120/72; PULSE 82; RESP 16; TEMP 36; O2SAT 95
[2024-05-07 08:02] LABS: Glucose Point of Care 101 mg/dl (65-105)
[2024-05-07] MEDS: TAMSULOSIN HCL 0.4 MG CAPSULE PO (09:21)
[2024-05-07] MEDS: RIVAROXABAN 15 MG TABLET PO ×2 (09:21→16:55)
[2024-05-07] MEDS: VERAPAMIL HCL 180 MG TABLET ER PO (09:21)
[2024-05-07] MEDS: ROSUVASTATIN 10 MG TABLET 20 MG PO (09:22)
[2024-05-07] MEDS: DIVALPROEX SODIUM SPRINKLE 125 MG CAP.DR 500 MG PO ×2 (09:22→16:54)
[2024-05-07] MEDS: CLOPIDOGREL BISULFATE 75 MG TABLET PO (09:23)
[2024-05-07] MEDS: FLUoxetine HCL 20 MG CAPSULE PO (09:23)
[2024-05-07] MEDS: ARTIFICIAL TEARS OPHTH SOLN 15 ML BOTTLE 1 DROP EACH EYE ×3 (09:24→16:55)
[2024-05-07] MEDS: LEFLUNOMIDE 20 MG PO (09:24)
[2024-05-07] MEDS: [UNRECOGNIZED DRUG - OTHER] PO (09:24)
[2024-05-07] MEDS: ALPRAZolam (*CRX) 0.25 MG TABLET PO ×2 (10:27→20:02)
[2024-05-07 11:43] LABS: Glucose Point of Care 119 mg/dl (65-105)
[2024-05-07 16:00] VITALS: BP 116/52; PULSE 82; RESP 16; TEMP 36.6; O2SAT 98
[2024-05-07] MEDS: hydrOXYzine HCL 25 MG TABLET PO (20:01)
[2024-05-07] MEDS: ACETAMINOPHEN 325 MG TABLET 650 MG PO (20:01)
[2024-05-08] VITALS: BP 138/64; PULSE 86; RESP 16; TEMP 36.6; O2SAT 95
[2024-05-08] MEDS: QUEtiapine FUMARATE 25 MG TABLET PO (00:05)
[2024-05-08 08:00] VITALS: BP 122/65; PULSE 87; RESP 16; TEMP 35.9; O2SAT 96
--- NOTE | 2024-05-08 10:02 | PC.NURSE ---
Server Service Assistant has been trying to wake patient for am medications and breakfast without success. Night nurse administered seroquel 25 mg at 0100 due to patient unable to sleep. Patient's was here and attempted to wake patient without success. Medication will be administered when patient is alert enough to take them per CITY DISPATCH SUPERVISOR.
--- NOTE | 2024-05-08 10:05 | PC.NURSE ---
Patient responds to verbal stimuli, but is unable to completely wake up at this time.
--- NOTE | 2024-05-08 12:22 | PC.NURSE ---
Patient's here to feed her lunch, but patient is still too drowsy to eat or to take medications. IT SERVICE MANAGER aware.
[2024-05-08] MEDS: ARTIFICIAL TEARS OPHTH SOLN 15 ML BOTTLE 1 DROP EACH EYE ×2 (13:33→16:57)
[2024-05-08 16:00] VITALS: BP 121/70; PULSE 74; RESP 16; TEMP 36.4; O2SAT 95
[2024-05-08] MEDS: DIVALPROEX SODIUM SPRINKLE 125 MG CAP.DR 500 MG PO (16:56)
[2024-05-08] MEDS: RIVAROXABAN 15 MG TABLET PO (16:57)
[2024-05-08] MEDS: ACETAMINOPHEN 325 MG TABLET 650 MG PO (20:25)
[2024-05-08] MEDS: hydrOXYzine HCL 25 MG TABLET PO (20:25)
[2024-05-08] MEDS: ALPRAZolam (*CRX) 0.25 MG TABLET PO (22:16)
[2024-05-09] VITALS: BP 110/57; PULSE 80; RESP 16; TEMP 36.8; O2SAT 94
[2024-05-09 08:00] VITALS: BP 138/75; PULSE 82; RESP 14; TEMP 35.9; O2SAT 97
[2024-05-09] MEDS: ARTIFICIAL TEARS OPHTH SOLN 15 ML BOTTLE 1 DROP EACH EYE ×2 (08:46→16:52)
[2024-05-09] MEDS: DIVALPROEX SODIUM SPRINKLE 125 MG CAP.DR 500 MG PO ×2 (08:47→16:52)
[2024-05-09] MEDS: [UNRECOGNIZED DRUG - OTHER] PO (08:47)
[2024-05-09] MEDS: LEFLUNOMIDE 20 MG PO (08:47)
[2024-05-09] MEDS: TAMSULOSIN HCL 0.4 MG CAPSULE PO (08:48)
[2024-05-09] MEDS: ROSUVASTATIN 10 MG TABLET 20 MG PO (08:48)
[2024-05-09] MEDS: CLOPIDOGREL BISULFATE 75 MG TABLET PO (08:48)
[2024-05-09] MEDS: RIVAROXABAN 15 MG TABLET PO ×2 (08:48→16:52)
[2024-05-09] MEDS: FLUoxetine HCL 20 MG CAPSULE PO (08:48)
[2024-05-09] MEDS: VERAPAMIL HCL 180 MG TABLET ER PO (08:48)
[2024-05-09] MEDS: hydrOXYzine HCL 25 MG TABLET PO ×2 (11:16→19:13)
[2024-05-09 16:40] VITALS: BP 141/67; PULSE 88; RESP 16; TEMP 36.3; O2SAT 98
[2024-05-09] MEDS: ACETAMINOPHEN 325 MG TABLET 650 MG PO (19:13)
[2024-05-09 20:00] VITALS: PULSE 88; RESP 16; O2SAT 98
[2024-05-09] MEDS: ALPRAZolam (*CRX) 0.25 MG TABLET PO (21:27)
[2024-05-09] MEDS: ONDANSETRON HCL ODT 4 MG TABLET PO (21:27)
[2024-05-10] VITALS: BP 149/71; PULSE 90; RESP 17; TEMP 36.7; O2SAT 96
[2024-05-10 08:00] VITALS: BP 114/71; PULSE 71; RESP 14; TEMP 36.2; O2SAT 92
--- NOTE | 2024-05-10 09:56 | PM.EVENT ---
Event Note Event Note Event Note: Switched patient low dose Xanax to scheduled was given at 23:00 last night and she is extremely lethargic will need to attempt get patient a good sleep cycle. She is not to receive Seroquel does not tolerate.
--- NOTE | 2024-05-10 15:28 | PCPTNOTE ---
Attempted to see pt this am x 2 with nursing stating that patient is in a deep sleep and not waking up. pt received meds last night and has been sleeping soundly unable to arouse this am. pt did not open eyes with verbal and tactile stimulus.
[2024-05-10 16:15] VITALS: BP 140/73; PULSE 82; RESP 16; TEMP 36.2; O2SAT 97
--- NOTE | 2024-05-10 17:09 | PCOTNOTE ---
Pt. attempted to see 3 different times this morning, but was unable to wake up to participate.
[2024-05-10] MEDS: ARTIFICIAL TEARS OPHTH SOLN 15 ML BOTTLE 1 DROP EACH EYE (17:50)
[2024-05-10] MEDS: RIVAROXABAN 15 MG TABLET PO (17:50)
[2024-05-10] MEDS: DIVALPROEX SODIUM SPRINKLE 125 MG CAP.DR 500 MG PO (17:51)
[2024-05-10] MEDS: ALPRAZolam (*CRX) 0.25 MG TABLET PO (20:14)
[2024-05-11] VITALS: BP 135/80; PULSE 88; RESP 20; TEMP 36.7; O2SAT 97
[2024-05-11 05:41] LABS: Hemoglobin 9.3 g/dL (12.0-15.0); Mean Corpuscular Hemoglobin 27.6 pg (27.0-31.0); Mean Platelet Volume 9.9 fl (9.2-11.8); Platelet Count Result 255 K/mm3 (150-420); Red Blood Count 3.37 M/mm3 (4.20-5.40); Red Cell Distribution Width 15.7 % (11.6-14.4); White Blood Count 5.8 K/mm3 (4.8-10.8)
[2024-05-11 05:59] LABS: Alanine Aminotransferase 32 U/L (14-59); Albumin Level 3.2 g/dL (3.4-5.0); Alkaline Phosphatase 67 U/L (46-116); Anion Gap 6 mmol/L (4-12); Aspartate Amino Transferase 27 U/L (15-37); Bilirubin,Total 0.3 mg/dL (0.00-1.00); Blood Urea Nitrogen 16 mg/dL (7-18); Calcium 9.3 mg/dL (8.5-10.1); Carbon Dioxide 30 mmol/L (21-32); Chloride 106 mmol/L (98-108); Estimated CRCL calculation 54 ml/min; Estimated Glomerular Filt Rate > 60; Glucose 109 mg/dL (70-99); Osmolality Calculated 296 mOsm/kg (285-295); Potassium 3.6 mmol/L (3.5-5.1); Sodium 142 mmol/L (136-145); Total Protein 6.6 g/dL (6.4-8.2)
--- NOTE | 2024-05-11 07:56 | P.PNIM_ITS ---
Progress Note: A&P Assessment and Plan (1) Gait abnormality: Code(s): R26.9 - Unspecified abnormalities of gait and mobility Status: Acute Assessment and Plan: * Secondary to CVA of the right cerebral artery * left-sided weakness/ unsteady gait * PT/OT * patient is being worked up for SNF referral given her lack of improvement with therapy. (2) Debilitated: Code(s): R53.81 - Other malaise Status: Acute Assessment and Plan: * numerous hospital admissions * new CVA * PT/OT (3) Acute cerebrovascular accident (CVA) due to occlusion of right posterior cerebral artery: Code(s): I63.531 - Cerebral infarction due to unspecified occlusion or stenosis of right posterior cerebral artery Status: Acute Assessment and Plan: * New CVA occlusion RT cerebral artery * Previous CVA occlusion LT cerebral artery * resume patient's Xarelto, Plavix, and statin * is being followed with vascular surgery at [facility] * Intermittent anxiety and impulsivity from her stroke. PRN Atarax and low dose Xanax at HS for sleep. Previously received Seroquel 25 mg and was lethargic the next day. I did call and speak with her about trialing a low dose of Seroquel and he is agreeable. She seems more awake today than days previously. Let's see how she is today and may end up stopping xanax and star ting low dose Seroquel. would like to come and sit with her at night if she gets agitated. * PT/OT (4) Hypertension: Qualifiers: Hypertension type: primary hypertension Qualified Code(s): I10 - Essential (primary) hypertension Code(s): I10 - Essential (primary) hypertension Status: Chronic Assessment and Plan: * stable Blood pressures ranging 130s to 140s systolic * resumed her verapamil Plan Code status: Full code per patient DVT prophylaxis: Xarelto PT/OT notes: SWING Disposition: Patient was admitted to [place] in swing bed for continued rehabilitation post CVA with new left-sided weakness and new impaired vision. Subjective Date/time seen: 05/11/24 07:56 Interval history: Patient is resting in bed with eyes closed. She does awake to tactile stimuli and answers my questions intermittently. She is able to tell me her name but she is unable to tell me where she is or what month it is. She follows commands intermittently. She does not complain of pain. Staff reports that she has not been sleeping at night and sleeping during the day. Labs and vitals reviewed today. She is being worked up for SNF placement. Review of Systems Review of Systems: All systems reviewed & are unremarkable except as noted in HPI and below Exam Narrative: General: appears comfortable, in no acute distress Respiratory: breathing is unlabored with even chest rise/fall, lungs are clear without wheezing, rhonchi, and crackles Cardiovascular: Rate and rhythm regular, normal s1s2, no murmur Abdomen: Soft, round, non-tender, active bowel sounds Extremities: No cyanosis, edema, clubbing. Pulses 2/2 Neuro: A&O x 1, pupils 5 bilateral round and reactive to light Skin: Warm, dry, intact Objective Data Vital Signs Vital Signs: Vital Signs - 24 hr 05/10/24 08:00 05/10/24 16:15 05/11/24 00:00 Temperature 97.1 F L 97.1 F L 98.0 F Pulse Rate 71 82 88 Respiratory Rate 14 16 20 Blood Pressure 114/71 140/73 135/80 Pulse Oximetry 92 97 97 Oxygen Delivery Room Air Room Air Room Air Intake/Output Intake/Output: Intake & Output 05/08/24 05/09/24 05/10/24 05/11/24 23:59 23:59 23:59 23:59 Intake Total 825 1615 510 450 Output Total 0 Balance 825 1615 510 450 Meds/Results Medications: Active Medications Generic Name Dose Route Start Last Admin Trade Name Freq PRN Reason Stop Dose Admin Acetaminophen 650 mg 05/03/24 21:20 Acetaminophen 650 Mg Suppository RECTAL Q6H PRN MILD PAIN/FEVER Acetaminophen 650 mg 05/03/24 21:23 05/09/24 19:13 Acetaminophen 325 Mg Tablet PO 650 mg Q4H PRN Administration Mild Pain (1-3) or Fever Alprazolam 0.25 mg 05/10/24 21:00 05/10/24 20:14 Alprazolam (*Crx) 0.25 Mg Tablet PO 0.25 mg QHS ROBERTO Administration Artificial Tears 1 drop 05/03/24 21:35 05/10/24 17:50 Artificial Tears Ophth Soln 15 Ml Bottle EACH EYE 1 drop TID ROBERTO Administration Clopidogrel Bisulfate 75 mg 05/04/24 09:00 05/10/24 13:17 Clopidogrel Bisulfate 75 Mg Tablet PO Not Given QAM ROBERTO Dextrose 12.5 gm 05/03/24 21:36 Dextrose 50% 25 Gm/50 Ml Syringe IV PUSH PRN PRN Hypoglycemia Protocol Divalproex Sodium 500 mg 05/03/24 21:00 05/10/24 17:51 Divalproex Sodium Sprinkle 125 Mg Cap.Dr PO 500 mg BID ROBERTO Administration Docusate Sodium 100 mg 05/04/24 08:30 Docusate Sodium 100 Mg Capsule PO BID PRN Constipation Fluoxetine HCl 20 mg 05/04/24 09:00 05/10/24 13:18 Fluoxetine Hcl 20 Mg Capsule PO Not Given DAILY ROBERTO Glucagon 1 mg 05/03/24 21:36 Glucagon For Inj 1 Mg Vial IM PRN PRN Hypoglycemia Protocol Glucose 15 gm 05/03/24 21:36 Glucose Oral Gel 15 Gm Of Glucse In 37.5 Gm Tube PO PRN PRN Hypoglycemia Protocol Hydroxyzine HCl 25 mg 05/03/24 19:27 05/09/24 19:13 Hydroxyzine Hcl 25 Mg Tablet PO 25 mg Q6H PRN Administration Anxiety Dextrose 1,000 mls @ 100 mls/hr 05/03/24 21:36 Dextrose 5% 1,000 Ml IVPB PRN PRN Hypoglycemia Protocol Non-Formulary Medication 20 mg 05/05/24 12:00 05/10/24 13:18 Leflunomide PO 06/04/24 11:59 Not Given DAILY [facility] Ondansetron HCl 4 mg 05/03/24 21:19 05/09/24 21:27 Ondansetron Hcl Odt 4 Mg Tablet PO 4 mg Q8H PRN Administration nausea and vomiting Rivaroxaban 20 mg 05/16/24 17:00 Rivaroxaban 10 Mg Tablet PO DAILY@1700 [facility] Rivaroxaban 15 mg 05/03/24 18:15 05/10/24 17:50 Rivaroxaban 15 Mg Tablet PO 05/15/24 17:01 15 mg BID ROBERTO Administration Rosuvastatin Calcium 20 mg 05/03/24 21:00 05/10/24 13:18 Rosuvastatin 10 Mg Tablet PO Not Given QAM [facility] Tamsulosin HCl 0.4 mg 05/04/24 09:00 05/10/24 13:19 Tamsulosin Hcl 0.4 Mg Capsule PO Not Given QAM [facility] Verapamil HCl 180 mg 05/04/24 09:00 05/10/24 13:19 Verapamil Hcl 180 Mg Tablet Er PO Not Given DAILY [facility] Labs Labs: Laboratory Results - last 24 hr 05/11/24 05:18 WBC 5.8 RBC 3.37 L Hgb 9.3 L Hct 30.0 L MCV 89.0 MCH 27.6 MCHC 31.0 L RDW 15.7 H Plt Count 255 MPV 9.9 Sodium 142 Potassium 3.6 Chloride 106 Carbon Dioxide 30 Anion Gap 6 BUN 16 Creatinine 0.76 Estim Creat Clear Calc 54 Estimated GFR > 60 Glucose 109 H Calculated Osmolality 296 H Calcium 9.3 Total Bilirubin 0.3 AST 27 ALT 32 Alkaline Phosphatase 67 Total Protein 6.6 Albumin 3.2 L Quality VTE Prophylaxis VTE prophylaxis: pharmacologic ordered
[2024-05-11 08:00] VITALS: BP 130/81; PULSE 95; RESP 14; TEMP 36.3; O2SAT 95
[2024-05-11] MEDS: FLUoxetine HCL 20 MG CAPSULE PO (10:31)
[2024-05-11] MEDS: CLOPIDOGREL BISULFATE 75 MG TABLET PO (10:31)
[2024-05-11] MEDS: VERAPAMIL HCL 180 MG TABLET ER PO (10:31)
[2024-05-11] MEDS: ARTIFICIAL TEARS OPHTH SOLN 15 ML BOTTLE 1 DROP EACH EYE ×3 (10:31→19:50)
[2024-05-11] MEDS: DIVALPROEX SODIUM SPRINKLE 125 MG CAP.DR 500 MG PO ×2 (10:31→19:50)
[2024-05-11] MEDS: RIVAROXABAN 15 MG TABLET PO ×2 (10:32→20:02)
[2024-05-11] MEDS: [UNRECOGNIZED DRUG - OTHER] PO (10:32)
[2024-05-11] MEDS: LEFLUNOMIDE 20 MG PO (10:32)
[2024-05-11] MEDS: ROSUVASTATIN 10 MG TABLET 20 MG PO (10:32)
[2024-05-11] MEDS: TAMSULOSIN HCL 0.4 MG CAPSULE PO (10:32)
[2024-05-11 16:00] VITALS: BP 123/78; PULSE 96; RESP 16; TEMP 36.4; O2SAT 94
--- NOTE | 2024-05-11 19:31 | PC.NURSE ---
Patient repositioned in bed. HOB elevated. Nurse fed patient dinner. Appetite good, ate 100% of meal. Patient visited with daughter after dinner.
--- NOTE | 2024-05-11 19:37 | PC.NURSE ---
Patient in bed yelling out. Nurse changed depends and provided pericare. Patient turned and positioned. Bed alarm on.
[2024-05-11] MEDS: ALPRAZolam (*CRX) 0.25 MG TABLET PO (20:19)
[2024-05-11] MEDS: ACETAMINOPHEN 325 MG TABLET 650 MG PO (21:37)
[2024-05-11] MEDS: hydrOXYzine HCL 25 MG TABLET PO (22:30)
[2024-05-12] VITALS: BP 131/74; PULSE 84; RESP 16; TEMP 36.4; O2SAT 95
[2024-05-12] MEDS: hydrOXYzine HCL 25 MG TABLET PO ×2 (04:26→21:46)
[2024-05-12 08:00] VITALS: BP 114/70; PULSE 76; RESP 16; TEMP 36.2; O2SAT 94
--- NOTE | 2024-05-12 14:31 | PC.NURSE ---
Patient consumes one pudding cup and 4 ounces ensure at this time.
[2024-05-12 16:00] VITALS: BP 124/74; PULSE 100; RESP 16; TEMP 36.1; O2SAT 94
[2024-05-12] MEDS: DIVALPROEX SODIUM SPRINKLE 125 MG CAP.DR 500 MG PO (16:53)
[2024-05-12] MEDS: TAMSULOSIN HCL 0.4 MG CAPSULE PO (16:54)
[2024-05-12] MEDS: CLOPIDOGREL BISULFATE 75 MG TABLET PO (16:54)
[2024-05-12] MEDS: FLUoxetine HCL 20 MG CAPSULE PO (16:54)
[2024-05-12] MEDS: RIVAROXABAN 15 MG TABLET PO (16:54)
[2024-05-12] MEDS: ROSUVASTATIN 10 MG TABLET 20 MG PO (16:54)
[2024-05-12] MEDS: LEFLUNOMIDE 20 MG PO (16:55)
[2024-05-12] MEDS: ARTIFICIAL TEARS OPHTH SOLN 15 ML BOTTLE 1 DROP EACH EYE (16:55)
[2024-05-12] MEDS: VERAPAMIL HCL 180 MG TABLET ER PO (16:55)
[2024-05-12] MEDS: [UNRECOGNIZED DRUG - OTHER] PO (16:55)
[2024-05-12] MEDS: ACETAMINOPHEN 325 MG TABLET 650 MG PO (21:46)
[2024-05-12] MEDS: ALPRAZolam (*CRX) 0.25 MG TABLET PO (21:46)
[2024-05-13] VITALS: BP 124/73; PULSE 96; RESP 16; TEMP 36.6; O2SAT 94
[2024-05-13 07:46] VITALS: BMI 10.0
[2024-05-13 08:00] VITALS: BP 102/67; PULSE 96; RESP 20; TEMP 36.6; O2SAT 94
[2024-05-13] MEDS: ROSUVASTATIN 10 MG TABLET 20 MG PO (08:23)
[2024-05-13] MEDS: ARTIFICIAL TEARS OPHTH SOLN 15 ML BOTTLE 1 DROP EACH EYE ×3 (08:23→17:21)
[2024-05-13] MEDS: DIVALPROEX SODIUM SPRINKLE 125 MG CAP.DR 500 MG PO ×2 (08:24→17:00)
[2024-05-13] MEDS: FLUoxetine HCL 20 MG CAPSULE PO (08:24)
[2024-05-13] MEDS: TAMSULOSIN HCL 0.4 MG CAPSULE PO (08:24)
[2024-05-13] MEDS: RIVAROXABAN 15 MG TABLET PO ×2 (08:24→17:17)
[2024-05-13] MEDS: CLOPIDOGREL BISULFATE 75 MG TABLET PO (08:24)
[2024-05-13] MEDS: VERAPAMIL HCL 180 MG TABLET ER PO (08:24)
[2024-05-13] MEDS: LEFLUNOMIDE 20 MG PO (08:25)
[2024-05-13] MEDS: [UNRECOGNIZED DRUG - OTHER] PO (08:25)
[2024-05-13 16:00] VITALS: BP 97/71; PULSE 101; RESP 16; TEMP 36.5; O2SAT 98
[2024-05-13] MEDS: ALPRAZolam (*CRX) 0.25 MG TABLET PO (21:25)
[2024-05-13] MEDS: hydrOXYzine HCL 25 MG TABLET PO (21:25)
[2024-05-14] VITALS: BP 105/48; PULSE 96; RESP 18; TEMP 36.8; O2SAT 97
[2024-05-14 08:00] VITALS: BP 111/73; PULSE 87; RESP 15; TEMP 35.9; O2SAT 95
[2024-05-14] MEDS: FLUoxetine HCL 20 MG CAPSULE PO (10:30)
[2024-05-14] MEDS: VERAPAMIL HCL 180 MG TABLET ER PO (10:30)
[2024-05-14] MEDS: TAMSULOSIN HCL 0.4 MG CAPSULE PO (10:30)
[2024-05-14] MEDS: DIVALPROEX SODIUM SPRINKLE 125 MG CAP.DR 500 MG PO ×2 (10:30→17:49)
[2024-05-14] MEDS: ROSUVASTATIN 10 MG TABLET 20 MG PO (10:30)
[2024-05-14] MEDS: CLOPIDOGREL BISULFATE 75 MG TABLET PO (10:30)
[2024-05-14] MEDS: RIVAROXABAN 15 MG TABLET PO ×2 (10:30→17:49)
[2024-05-14] MEDS: LEFLUNOMIDE 20 MG PO (10:31)
[2024-05-14] MEDS: [UNRECOGNIZED DRUG - OTHER] PO (10:31)
[2024-05-14] MEDS: ARTIFICIAL TEARS OPHTH SOLN 15 ML BOTTLE 1 DROP EACH EYE ×2 (10:31→17:53)
[2024-05-14 16:00] VITALS: BP 115/72; PULSE 85; RESP 17; TEMP 35.9; O2SAT 98
[2024-05-14] MEDS: ALPRAZolam (*CRX) 0.25 MG TABLET PO (21:54)
[2024-05-15] VITALS: BP 101/70; PULSE 90; RESP 18; TEMP 36.4; O2SAT 99
[2024-05-15 08:00] VITALS: BP 98/70; PULSE 92; RESP 16; TEMP 36.4; O2SAT 97
[2024-05-15] MEDS: ARTIFICIAL TEARS OPHTH SOLN 15 ML BOTTLE 1 DROP EACH EYE ×2 (09:14→17:21)
[2024-05-15] MEDS: ROSUVASTATIN 10 MG TABLET 20 MG PO (09:23)
[2024-05-15] MEDS: CLOPIDOGREL BISULFATE 75 MG TABLET PO (09:23)
[2024-05-15] MEDS: TAMSULOSIN HCL 0.4 MG CAPSULE PO (09:23)
[2024-05-15] MEDS: FLUoxetine HCL 20 MG CAPSULE PO (09:23)
[2024-05-15] MEDS: DIVALPROEX SODIUM SPRINKLE 125 MG CAP.DR 500 MG PO ×2 (09:23→17:19)
[2024-05-15] MEDS: VERAPAMIL HCL 180 MG TABLET ER PO (09:23)
[2024-05-15] MEDS: RIVAROXABAN 15 MG TABLET PO ×2 (09:23→17:20)
[2024-05-15] MEDS: LEFLUNOMIDE 20 MG PO (09:25)
[2024-05-15] MEDS: [UNRECOGNIZED DRUG - OTHER] PO (09:25)
[2024-05-15 16:00] VITALS: BP 104/64; PULSE 88; RESP 17; TEMP 36.6; O2SAT 95
[2024-05-15] MEDS: ALPRAZolam (*CRX) 0.25 MG TABLET PO (20:55)
[2024-05-16] VITALS: BP 98/78; PULSE 88; RESP 18; TEMP 36.7; O2SAT 95
[2024-05-16 08:00] VITALS: BP 137/73; PULSE 85; RESP 16; TEMP 36.1; O2SAT 93
[2024-05-16] MEDS: ARTIFICIAL TEARS OPHTH SOLN 15 ML BOTTLE 1 DROP EACH EYE ×3 (08:47→16:48)
[2024-05-16] MEDS: DIVALPROEX SODIUM SPRINKLE 125 MG CAP.DR 500 MG PO ×2 (08:48→16:47)
[2024-05-16] MEDS: TAMSULOSIN HCL 0.4 MG CAPSULE PO (08:49)
[2024-05-16] MEDS: FLUoxetine HCL 20 MG CAPSULE PO (08:50)
[2024-05-16] MEDS: ROSUVASTATIN 10 MG TABLET 20 MG PO (08:50)
[2024-05-16] MEDS: CLOPIDOGREL BISULFATE 75 MG TABLET PO (08:50)
[2024-05-16] MEDS: VERAPAMIL HCL 180 MG TABLET ER PO (08:51)
[2024-05-16] MEDS: [UNRECOGNIZED DRUG - OTHER] PO (08:55)
[2024-05-16] MEDS: LEFLUNOMIDE 20 MG PO (08:55)
[2024-05-16 16:00] VITALS: BP 103/71; PULSE 94; RESP 16; TEMP 36.9; O2SAT 98
[2024-05-16] MEDS: RIVAROXABAN 10 MG TABLET 20 MG PO (16:48)
[2024-05-16 20:00] VITALS: PULSE 94; RESP 16; O2SAT 98
[2024-05-16] MEDS: ALPRAZolam (*CRX) 0.25 MG TABLET PO (21:01)
[2024-05-16] MEDS: ACETAMINOPHEN 325 MG TABLET 650 MG PO (21:01)
[2024-05-17] VITALS: BP 115/64; PULSE 89; RESP 16; TEMP 36.5; O2SAT 98
[2024-05-17 08:00] VITALS: BP 116/62; PULSE 77; RESP 16; TEMP 35.9; O2SAT 97
[2024-05-17] MEDS: [UNRECOGNIZED DRUG - OTHER] PO (08:36)
[2024-05-17] MEDS: LEFLUNOMIDE 20 MG PO (08:36)
[2024-05-17] MEDS: DIVALPROEX SODIUM SPRINKLE 125 MG CAP.DR 500 MG PO (08:38)
[2024-05-17] MEDS: TAMSULOSIN HCL 0.4 MG CAPSULE PO (08:41)
[2024-05-17] MEDS: CLOPIDOGREL BISULFATE 75 MG TABLET PO (08:44)
[2024-05-17] MEDS: ROSUVASTATIN 10 MG TABLET 20 MG PO (08:44)
[2024-05-17] MEDS: VERAPAMIL HCL 180 MG TABLET ER PO (08:44)
[2024-05-17] MEDS: FLUoxetine HCL 20 MG CAPSULE PO (08:45)
[2024-05-17] MEDS: ARTIFICIAL TEARS OPHTH SOLN 15 ML BOTTLE 1 DROP EACH EYE ×2 (08:45→12:41)
--- NOTE | 2024-05-17 11:58 | P.DS_ITS ---
DS: Admitting Diagnosis Discharge Date 05/17/2024 Admitting Diagnosis Weakness, Debility , DS: Discharge Diagnosis Discharge Diagnosis (1) Gait abnormality: Code(s): R26.9 - Unspecified abnormalities of gait and mobility Status: Acute Assessment and Plan: * Secondary to CVA of the right cerebral artery * left-sided weakness/ unsteady gait * PT/OT * patient is being worked up for SNF referral given her lack of improvement with therapy. (2) Debilitated: Code(s): R53.81 - Other malaise Status: Acute Assessment and Plan: * numerous hospital admissions * new CVA * PT/OT (3) Acute cerebrovascular accident (CVA) due to occlusion of right posterior cerebral artery: Code(s): I63.531 - Cerebral infarction due to unspecified occlusion or stenosis of right posterior cerebral artery Status: Acute Assessment and Plan: * New CVA occlusion RT cerebral artery * Previous CVA occlusion LT cerebral artery * resume patient's Xarelto, Plavix, and statin * is being followed with vascular surgery at [facility] * Intermittent anxiety and impulsivity from her stroke. PRN Atarax and low dose Xanax at HS for sleep. Previously received Seroquel 25 mg and was lethargic the next day. I did call and speak with her about trialing a low dose of Seroquel and he is agreeable. She seems more awake today than days previously. Let's see how she is today and may end up stopping xanax and starting low dose Seroquel. would like to come and sit with her at night if she gets agitated. * PT/OT (4) Hypertension: Qualifiers: Hypertension type: primary hypertension Qualified Code(s): I10 - Essential (primary) hypertension Code(s): I10 - Essential (primary) hypertension Status: Chronic Assessment and Plan: * stable Blood pressures ranging 130s to 140s systolic * resumed her verapamil Plan Code status: Full code per patient DVT prophylaxis: Xarelto PT/OT notes: SWING Disposition: Patient was admitted to [place] in swing bed for continued rehabilitation post CVA with new left-sided weakness and new impaired vision. DS: Summary Time Spent with Patient Time attestation: Total time spent providing and/or coordinating discharge services: Exam Narrative: General: appears comfortable, in no acute distress Respiratory: breathing is unlabored with even chest rise/fall, lungs are clear without wheezing, rhonchi, and crackles Cardiovascular: Rate and rhythm regular, normal s1s2, no murmur Abdomen: Soft, round, non-tender, active bowel sounds Extremities: No cyanosis, edema, clubbing. Pulses 2/2 Neuro: A&O x 1, pupils 5 bilateral round and reactive to light Skin: Warm, dry, intact Discharge Plan Discharge Attending physician on discharge: Stef Gaspar Discharging Clinician: Agnieszka Rodriguez Anticipated Discharge Date/Time: 05/17/24 11:54 Patient Disposition: MD Skilled Nursing/Asst Living Activity: may shower, unlimited and as tolerated Diet: heart healthy Discharge Instructions: PT/OT Evaluate and treat Patient Instructions: Antibiotic Form, Chronic Hypertension (DC), Weakness (DC), Stroke (DC) Stand Alone Forms: General Discharge Information, Assisted Discharge Discharge Medications: Continued rosuvastatin 20 mg Tablet 20 mg PO DAILY ondansetron 4 mg tablet,disintegrating 4 mg PO Q8H PRN (Reason: nausea and vomiting) Qty: 30 0RF acetaminophen 650 mg Suppository 650 mg RECTAL Q6H docusate sodium 100 mg Capsule 100 mg PO PRN MDD 1 PRN (Reason: Constipation) divalproex 125 mg Capsule, Delayed Rel Sprinkle 500 mg PO BID polyvinyl alcohol [20/20 Artificial Tears] 1.4 % Drops 1 drp EACH EYE TID rivaroxaban 2.5 mg Tablet 15 mg PO BID Rx Instructions: STARTED 04-28-24 Take 15mg bid for 17 days. Then 20mg daily at supper. leflunomide 20 mg tablet 20 mg PO DAILY clopidogrel 75 mg Tablet 75 mg PO QAM Qty: 30 0RF verapamil 180 mg Tablet Extended Release 180 mg PO DAILY tamsulosin 0.4 mg Capsule 0.4 mg PO QAM Qty: 30 0RF fluoxetine 20 mg Tablet 20 mg PO DAILY Qty: 90 0RF hydroxyzine HCl 25 mg Tablet 25 mg PO Q6H PRN (Reason: Anxiety) Qty: 30 0RF Date of admission: 05/03/24 16:31 Primary Care Provider: William Craig Admitting Provider: Stef Gaspar Attending physician on admission: Patricia Morales Condition: Stable
--- NOTE | 2024-05-17 15:55 | PC.NURSE ---
Report called to Gricelda at [facility] and rehab. Staff from receiving facility came to pick patient up in w/c. Patient transferred to w/ with 2 assist ratna ely. Paperwork and personal items sent with patient to receiving facility. Gricelda voiced understanding of discharge instructions and report.
--- NOTE | 2024-05-19 09:47 | PC.NURSE ---
Discharge to [facility], no questions from staff re lorrie packet
== END 2024-05-17 15:55 | DRG 57 ==
PROVIDERS: Nurse Practitioner Family; Admitting Provider Internal Medicine; PCP Internal Medicine; Visit Provider Nurse Practitioner Acute Care
DX: I69.354 Hemiplegia and hemiparesis following cerebral infarction affecting left non-dominant side (principal); H54.7 Unspecified visual loss; M05.69 Rheumatoid arthritis of multiple sites with involvement of other organs and systems; F41.8 Other specified anxiety disorders; I69.398 Other sequelae of cerebral infarction; Z87.891 Personal history of nicotine dependence; Z79.02 Long term (current) use of antithrombotics/antiplatelets; Z79.01 Long term (current) use of anticoagulants
CPT/HCPCS: 36415; 80053; 82948; 83036; 85025; 85027; 97110; 97112; 97161; 97166; 97530; 97535; A9270

== ENCOUNTER 2024-06-01 15:42 | Outpatient (CLI) | payer OTHER, SELFPAY ==
[2024-06-01 16:13] LABS: Hematocrit 25.5 % (35.0-49.0); Hemoglobin 8.1 g/dL (12.0-15.0); Mean Corpuscular HGB Conc 31.8 g/dL (32-36); Mean Corpuscular Hemoglobin 28.2 pg (27.0-31.0); Mean Corpuscular Volume 88.9 fL (78.0-102.0); Mean Platelet Volume 10.6 fl (9.2-11.8); Platelet Count Result 190 K/mm3 (150-420); Red Blood Count 2.87 M/mm3 (4.20-5.40); Red Cell Distribution Width 16.7 % (11.6-14.4); White Blood Count 5.9 K/mm3 (4.8-10.8)
[2024-06-01 16:14] LABS: Add Urine Microscopic? NO; Appearance Urine Clear (Clear); Bilirubin Urine Negative (Negative); Blood Urine Negative (Negative); Color Urine Light Yellow (Yellow); Glucose Urine UA Negative (Negative); Ketones Urine Negative (Negative); Leukocyte Esterase Ur Negative (Negative); Nitrate Urine Negative (Negative); Protein Urine Negative (Negative); Specific Grav Ur 1.025 (1.010-1.020); Urobilinogen Urine 0.2 mg/dL (0.2-1.0)
[2024-06-01 16:36] LABS: Anion Gap 11 mmol/L (4-12); Blood Urea Nitrogen 11 mg/dL (7-18); Calcium 8.9 mg/dL (8.5-10.1); Carbon Dioxide 26 mmol/L (21-32); Chloride 107 mmol/L (98-108); Estimated Glomerular Filt Rate 59; Glucose 120 mg/dL (70-99); Osmolality Calculated 298 mOsm/kg (285-295); Potassium 3.6 mmol/L (3.5-5.1); Sodium 144 mmol/L (136-145)
[2024-06-01 16:56] LABS: Band Neutrophils Percent 0 % (0-6); Basophils Percent Manual 0 % (0-1); Eosinophils Absolute Manual 0.88 K/mm3 (0.02-0.50); Eosinophils Percent Manual 15 % (1-6); Lymphocytes Absolute Manual 2.41 K/mm3 (1.1-4.5); Lymphocytes Percent Manual 41 % (18-44); Monocytes Absolute Manual 0.59 K/mm3 (0.1-0.90); Monocytes Percent Manual 10 % (3-9); Neutrophils Absolute Manual 1.94 K/mm3 (1.7-7.2); Neutrophils Percent Manual 33 % (46-73); Platelet Estimate Adequate (Adequate); Total Cells Counted 100
[2024-06-02 11:17] LABS: Alanine Aminotransferase 26 U/L (14-59); Albumin Level 3.3 g/dL (3.4-5.0); Alkaline Phosphatase 59 U/L (46-116); Aspartate Amino Transferase 17 U/L (15-37); Bilirubin Direct 0.1 mg/dL (0-0.2); Bilirubin,Total 0.4 mg/dL (0.00-1.00)
== END 2024-06-01 15:43 | disposition home or self-care (01) ==
PROVIDERS: PCP Internal Medicine; Visit Provider Nurse Practitioner Family
DX: R35.0 Frequency of micturition (principal); R41.0 Disorientation, unspecified; R94.5 Abnormal results of liver function studies
CPT/HCPCS: 36415; 80048; 80076; 81003; 85025; 87086

== ENCOUNTER 2024-06-02 13:32 | Outpatient (CLI) | payer OTHER, SELFPAY ==
[2024-06-02 13:52] LABS: Immature Reticulocyte Fraction 13.1 % (2.0-16.52); Reticulocytes Absolute 0.07 M/mm3 (0.02-0.10)
[2024-06-02 15:03] LABS: Ferritin 328 ng/mL (8-252); Iron 34 ug/dL (50-170); Lactate Dehydrogenase 270 U/L (81-234); Percent Iron Saturation 13 % (12-57)
[2024-06-02 15:07] LABS: CRP < 0.5 mg/dL (0.0-0.9)
[2024-06-02 20:47] LABS: Occult Blood Negative (Negative)
[2024-06-03 10:49] LABS: Erythrocyte Sedimentation Rate 3 mm/hr (0-20)
[2024-06-04 12:44] LABS: Haptoglobin 193 mg/dL (43-212)
[2024-06-06 20:33] LABS: Red Blood Cell Folate 747 ng/mL RBC (>280)
[2024-06-07 05:28] LABS: Methylmalonic Acid 110 nmol/L (69-390)
== END 2024-06-02 13:33 | disposition home or self-care (01) ==
LOC: CHSLAB 13:34
PROVIDERS: PCP Internal Medicine; Visit Provider Internal Medicine
DX: D64.9 Anemia, unspecified (principal)
CPT/HCPCS: 36415; 82272; 82728; 82747; 83010; 83540; 83550; 83615; 83921; 85046; 85652; 86140

== ENCOUNTER 2024-06-25 08:02 | Emergency (ER) | payer OTHER, SELFPAY ==
--- NOTE | ~2024-06-25 | CT_ITS ---
EXAMINATION: CT brain wo con DATE: 06/25/2024 09:11 INDICATION: Anticoagulated patient post recent strokes presenting post fall TECHNIQUE: Computed tomography (CT) of the head was performed without intravenous contrast. Sagittal and coronal reconstructions were performed. The mA was adjusted according to patient size. Iterative reconstruction technique was employed. The dose-length product was 605.33 mGy-cm. COMPARISON: head CT dated 04/19/2024 FINDINGS: No fracture. Encephalomalacia consistent with now chronic infarcts involving the right parietal and b ilateral temporal occipital lobes. A few additional small old infarcts in the left frontal lobe. No a cute intracranial hemorrhage, acute infarction or abnormal extra axial fluid collection. There is add itional moderate scattered white matter hypoattenuation consistent with chronic small vessel ischemic disease. Symmetric prominence of the sulci consistent with mild age-appropriate diffuse cerebral vol ume loss. Ventricles are normal and symmetric. No mass/mass effect. The orbits, paranasal sinuses and mastoid air cells are normal. Intracranial calcified cerebral atherosclerosis is noted. IMPRESSION: 1. No fracture or acute intracranial process. 2. Chronic infarcts in the left frontal, right parietal and bilateral temporal occipital regions. 3. Additional moderate scattered white matter hypoattenuation consistent with chronic small vessel is chemic disease. Reviewed, dictated and finalized at location A. R VEHICLE REPRESENTATIVE IMPRESSION: 1. No fracture or acute intracranial process. 2. Chronic infarcts in the left frontal, right parietal and bilateral temporal occipital regions. 3. Additional moderate scattered white matter hypoattenuation consistent with c hronic small vessel ischemic disease.
--- NOTE | ~2024-06-25 | CT_ITS ---
EXAMINATION: CT cervical spine wo con DATE: 06/25/2024 09:11 INDICATION: Fall. TECHNIQUE: Computed tomography (CT) of the cervical spine was performed without intravenous contrast. Automated exposure control and iterative reconstruction technique were employed. The dose-length pro duct was 89.35 mGy-cm. COMPARISON: None FINDINGS: Mild reversal of the normal cervical lordosis. No spondylolisthesis or facet subluxation. Vertebral b louise heights are normal. No fracture. Severe disc height loss at C5-C6. Moderate disc height loss at C 4-C5 and C6-C7 and mild disc height loss at the remaining cervical levels. Disc bulge at C3-C4 and di sc osteophyte complexes at C4-C5 through C6-C7 contributing to multilevel mild central canal stenosis . Moderate and severe cervical facet and uncovertebral osteoarthritis contributing to multilevel bila teral mild neural foraminal stenosis throughout the cervical spine likely benign 1.2 cm right thyroid nodule. Atherosclerotic calcification is at the bilateral carotid bulbs. Cervical soft tissues are o therwise unremarkable. Mild biapical pleural-parenchymal scarring. IMPRESSION: 1. Moderate to severe cervical spondylosis. No acute osseous abnormality. Reviewed, dictated and finalized at location A. ER REPAIR SUPERVISOR
--- NOTE | ~2024-06-25 | XR_ITS ---
EXAMINATION: XR pelvis 1-2V DATE: 06/25/2024 09:11 INDICATION: Fall TECHNIQUE: An anteroposterior view of the pelvis was obtained. COMPARISON: CT dated 04/27/2018 FINDINGS: Alignment is normal. No fracture. Mild osteoarthritis at the bilateral sacroiliac joints with associa luisa osteitis condensans ilii. Atherosclerotic calcifications at the infrarenal aorta and bilateral il iac arteries. IMPRESSION: 1. No acute osseous abnormality. Reviewed, dictated and finalized at location A. RATING PLANT SUPERINTENDENT
--- NOTE | ~2024-06-25 | XR_ITS ---
EXAMINATION: XR chest 1V portable DATE: 06/25/2024 09:11 INDICATION: Fall TECHNIQUE: frontal view of the chest was obtained. COMPARISON: Chest radiograph dated 01/29/2024 FINDINGS: Chronic biapical pleural-parenchymal scarring. No other airspace opacities, pulmonary edema, pleural effusion or pneumothorax. The cardiomediastinal silhouette is normal. Mild upper thoracic dextrocurva ture with mild spondylosis. IMPRESSION: 1. Chronic biapical pleural-parenchymal scarring. No acute cardiopulmonary disease. Reviewed, dictated and finalized at location A. E BOX TENDER IMPRESSION: 1. Chronic biapical pleural-parenchymal scarring. No acute cardiopulmonary dise ase.
[2024-06-25 08:05] VITALS: BP 136/87; PULSE 73; RESP 16; TEMP 36.8; O2SAT 97
[2024-06-25 08:09] VITALS: BP 136/87; PULSE 73; RESP 16; TEMP 36.8; O2SAT 97
--- NOTE | 2024-06-25 08:09 | ED.FALL ---
HPI - Fall General Chief Complaint: Fall Stated Complaint: L hip pain - fall Time Seen by Provider: 06/25/24 08:09 Source: patient and EMS Mode of arrival: ambulatory Limitations: no limitations History of Present Illness HPI Narrative: 63-year-old female with a history of hypertension, rheumatoid arthritis, CVA on aspirin, Plavix and Xarelto. She was brought in from the assisted after she fell off the bed, after she had a nightmare. she presents with -- left hip pain and bruising -- left arm pain -- multiple bruises over her legs. Denies any head injury or loss of consciousness. No ENT bleeding. no neck or back pain. MD complaint: fall Onset (ago): hour(s) ( 1 hour ago) Fall from: standing Fall witnessed: no Place fall occurred: assisted/SNF Loss of consciousness: none Symptoms prior to fall: none Context: history of frequent falls Location of injury - extremities: Left: arm and thigh Associated symptoms (after fall): denies Related Data Home Medications ?Medication ?Instructions ?Recorded ?Confirmed ?Last Taken ?Type leflunomide 20 mg tablet 20 mg PO DAILY 01/29/24 06/25/24 05/03/24 History verapamil 180 mg tablet,extended 180 mg PO DAILY 04/07/24 06/25/24 05/03/24 History release acetaminophen 650 mg rectal 650 mg RECTAL Q6H 05/03/24 06/25/24 Unknown History suppository divalproex 125 mg capsule,delayed 500 mg PO BID 05/03/24 06/25/24 05/03/24 History release sprinkle docusate sodium 100 mg capsule 100 mg PO PRN PRN Constipation 05/03/24 06/25/24 Unknown History polyvinyl alcohol 1.4 % eye drops 1 drp EACH EYE TID 05/03/24 06/25/24 Unknown History rivaroxaban 2.5 mg tablet 15 mg PO BID 05/03/24 06/25/24 05/03/24 History Allergies Allergy/AdvReac Type Severity Reaction Status Date / Time lisinopril AdvReac Cough Verified 05/03/24 18:27 Review of Systems Constitutional: Constitutional: Reports as per HPI and Reports no additional constitutional complaints Eyes: Eyes: Reports as per HPI and Reports no additional eye complaints ENT: Reports system reviewed and no additional complaints, except as documented and Reports as per HPI Cardiovascular: Cardiovascular: Reports as per HPI and Reports no additional cardiovascular complaints Respiratory: Respiratory: Reports as per HPI and Reports no additional respiratory complaints Gastrointestinal: Gastrointestinal: Reports as per HPI and Reports no additional gastrointestinal complaints Genitourinary: Genitourinary: Reports no additional female genitourinary complaints Musculoskeletal: Musculoskeletal: Reports no additional musculoskeletal complaints Comments: Left arm and left hip pain Integumentary/Breasts: Comments: multiple bruises Neurologic: Comments: left-sided weakness unsteady gait Psychiatric: Psychiatric: Reports no additional psychiatric complaints and Reports as per HPI Endocrine: Endocrine: Reports no additional endocrine complaints and Reports as per HPI Allergic/Immunologic: Allergic/Immunologic: Reports no additional allergic/immunologic complaints and Reports as per HPI [facility] Past Medical History Medical History Prediabetes A1C 6.2% on 01/29/2024 Acute cerebrovascular accident (CVA) due to occlusion of right posterior cerebral artery Rheumatoid arthritis Neck pain Cerebrovascular accident (CVA) due to embolism of left posterior cerebral artery Bilateral hand pain Encounter for screening for other viral diseases Rheumatoid arthritis, seropositive, multiple sites Inflammatory arthritis (~02/2020) Hypertension Arthritis Family History Family History Mother Hypertension Diabetes mellitus Father Hypertension Sibling Hypertension Diabetes mellitus Social History Social History Smoking packs per day: 1 Smoking cigarettes per day: 20.0 Years smoked: 10 Smoking pack-years: 10.00 Smoking status: Former smoker Tobacco type: cigarettes Second hand tobacco smoke exposure: No Smoking end date: 05/03/24 Alcohol intake: never Substance use: never Substance use type: does not use Do You Feel Safe in your Home?: Yes Lack of Transportation: No Lack of Food: Never True Current Housing: I Have Housing Concerned About Future Housing: No Difficulty Paying Gas/Electric Bills: No Difficulty Paying for Meds: No Currently Unemployed: No Education: Don't Know Difficulty w/ Childcare or Family Care: No Living arrangements: with family Occupation/Education: occupation Gender identity (if verbalized by the patient): Female Spiritual care concerns: No Exam Narrative: vitals are stable. Const: General: no acute distress Orientation/consciousness: patient oriented x3 Limitations: no limitations HENMT: Head: normal to inspection Ears: external ears normal Face/Nose/Sinus: Normal external nose present Face and sinus: normal facial exam Mouth: Yes Normal oral and palatal mucosa present Throat: posterior oropharynx normal Eyes: Conjunctivae: conjunctivae normal Pupils: Equal, round and reactive pupils present EOM: EOMs intact bilaterally Neck: Neck: normal visual inspection, no lymphadenopathy and no meningeal signs Other: No spinal tenderness Chest: Chest palpation & inspection: normal inspection of the chest Other: no chest wall tenderness Resp: Effort & Inspection: normal respiratory effort Auscultation: rhonchi Cardio: Rate: regular rate Rhythm: regular rhythm GI: Auscultation: normal bowel sounds Other: no tenderness/rigidity / rebound. : General: Yes no CVA tenderness Back/Spine/Pelvis: Back: no CVA tenderness Skin: Other: Multiple bruises of her bilateral lower extremities Neuro: General: patient oriented x3 Other: left-sided weakness Extrem: General: normal to inspection Other: multiple bruises over both legs. Normal range of motion both hip joints Psych: Mental Status: mental status grossly normal Affect: normal affect Attitude: cooperative Course Course Emergency Course: recurrent falls accidental fall this morning left hip pain left arm pain CT of the head, C-spine, chest x-ray and x-ray of the pelvis did not show any acute findings. Blood work revealed anemia and neutropenia. Rest of the blood work is unremarkable. Vital Signs Vital signs: Vital Signs Temperature 36.8 C 06/25/24 08:05 Pulse Rate 73 06/25/24 08:05 Respiratory Rate 16 06/25/24 08:05 Blood Pressure 136/87 06/25/24 08:05 Pulse Oximetry 97 06/25/24 08:05 Oxygen Delivery Room Air 06/25/24 08:05 Temperature 36.8 C 06/25/24 09:10 Pulse Rate 74 06/25/24 09:10 Respiratory Rate 16 06/25/24 09:10 Blood Pressure 136/68 06/25/24 09:10 Pulse Oximetry 98 06/25/24 09:10 Oxygen Delivery Room Air 06/25/24 09:10 MDM - Fall MDM Narrative Medical decision making narrative: recurrent falls. patient on anticoagulation CT of the head/ C-spine/ chest x-ray pelvis did not show any acute findings. Neutropenia/ anemia Lab Data 06/25/24 08:34 06/25/24 08:34 Labs: Lab Results 06/25/24 Range/Units 08:34 WBC 4.6 L (4.8-10.8) K/mm3 RBC 3.25 L (4.20-5.40) M/mm3 Hgb 9.0 L (12.0-15.0) g/dL Hct 28.1 L (35.0-49.0) % MCV 86.5 (78.0-102.0) fL MCH 27.7 (27.0-31.0) pg MCHC 32.0 (32-36) g/dL RDW 15.0 H (11.6-14.4) % Plt Count 232 (150-420) K/mm3 MPV 9.6 (9.2-11.8) fl Immature Gran % (Auto) 0.2 H (0.0-0.0) % Neut % (Auto) 44.0 L (50.0-70.0) % Lymph % (Auto) 36.7 (18.0-42.0) % [place] % (Auto) 8.7 (2.0-11.0) % Eos % (Auto) 9.3 H (1.0-6.0) % Baso % (Auto) 1.1 H (0.0-1.0) % Lymph # (Auto) 1.69 (1.10-4.50) K/mm3 [place] # (Auto) 0.40 (0.10-0.90) K/mm3 Eos # (Auto) 0.43 (0.02-0.50) K/mm3 Baso # (Auto) 0.05 (0.00-0.10) K/mm3 Abs Immat Gran (auto) 0.01 H (0.00-0.00) K/mm3 Absolute Neuts (auto) 2.02 (1.70-7.20) K/mm3 Absolute Nucleated RBC 0.00 (0.00-0.00) K/mm3 Nucleated RBC % 0.0 (0-0.0) % Sodium 142 (136-145) mmol/L Potassium 3.8 (3.5-5.1) mmol/L Chloride 106 (98-108) mmol/L Carbon Dioxide 28 (21-32) mmol/L Anion Gap 8 (4-12) mmol/L BUN 18 (7-18) mg/dL Creatinine 0.92 (0.55-1.02) mg/dL Estim Creat Clear Calc 46 ml/min Estimated GFR > 60 (59 - ) Glucose 104 H (70-99) mg/dL Calculated Osmolality 295 (285-295) mOsm/kg Calcium 8.9 (8.5-10.1) mg/dL Total Bilirubin 0.3 (0.00-1.00) mg/dL AST 14 L (15-37) U/L ALT 17 (14-59) U/L Alkaline Phosphatase 57 (46-116) U/L Total Protein 6.0 L (6.4-8.2) g/dL Albumin 3.1 L (3.4-5.0) g/dL Discharge Plan Discharge Clinical Impression: Recurrent falls, Hip pain, left, Arm pain, left Patient Disposition: NH Jail/Asst Living Condition: Stable Instructions: Antibiotic Form, Fall Prevention for Older Adults (ED) Patient Language: Nepali Prescriptions: No Action ondansetron 4 mg tablet,disintegrating 4 mg PO Q8H PRN (Reason: nausea and vomiting) Qty: 30 0RF acetaminophen 650 mg Suppository 650 mg RECTAL Q6H docusate sodium 100 mg Capsule 100 mg PO PRN MDD 1 PRN (Reason: Constipation) divalproex 125 mg Capsule, Delayed Rel Sprinkle 500 mg PO BID polyvinyl alcohol 1.4 % Drops 1 drp EACH EYE TID rivaroxaban 2.5 mg Tablet 15 mg PO BID Rx Instructions: STARTED 04-28-24 Take 15mg bid for 17 days. Then 20mg daily at supper. leflunomide 20 mg tablet 20 mg PO DAILY clopidogrel 75 mg Tablet 75 mg PO QAM Qty: 30 0RF verapamil 180 mg Tablet Extended Release 180 mg PO DAILY tamsulosin 0.4 mg Capsule 0.4 mg PO QAM Qty: 30 0RF fluoxetine 20 mg Tablet 20 mg PO DAILY Qty: 90 0RF hydroxyzine HCl 25 mg Tablet 25 mg PO Q6H PRN (Reason: Anxiety) Qty: 30 0RF Follow-up/Referrals: William Craig MD [Primary Care Provider] - Time of Disposition: 09:47
[2024-06-25 08:37] LABS: Basophils Absolute Auto 0.05 K/mm3 (0.00-0.10); Basophils Percent Auto 1.1 % (0.0-1.0); Eosinophils Absolute Auto 0.43 K/mm3 (0.02-0.50); Eosinophils Percent Auto 9.3 % (1.0-6.0); Hematocrit 28.1 % (35.0-49.0); Immature Granulocyte Absolute 0.01 K/mm3 (0.00-0.00); Immature Granulocyte Percent A 0.2 % (0.0-0.0); Lymphocytes Absolute Auto 1.69 K/mm3 (1.10-4.50); Lymphocytes Percent Auto 36.7 % (18.0-42.0); Mean Corpuscular Hemoglobin 27.7 pg (27.0-31.0); Mean Corpuscular Volume 86.5 fL (78.0-102.0); Mean Platelet Volume 9.6 fl (9.2-11.8); Monocytes Percent Auto 8.7 % (2.0-11.0); Neutrophils Absolute Auto 2.02 K/mm3 (1.70-7.20); Platelet Count Result 232 K/mm3 (150-420); Red Blood Count 3.25 M/mm3 (4.20-5.40); White Blood Count 4.6 K/mm3 (4.8-10.8)
[2024-06-25 09:10] VITALS: BP 136/68; PULSE 74; RESP 16; TEMP 36.8; O2SAT 98
[2024-06-25 09:10] LABS: Alanine Aminotransferase 17 U/L (14-59); Albumin Level 3.1 g/dL (3.4-5.0); Alkaline Phosphatase 57 U/L (46-116); Anion Gap 8 mmol/L (4-12); Aspartate Amino Transferase 14 U/L (15-37); Bilirubin,Total 0.3 mg/dL (0.00-1.00); Blood Urea Nitrogen 18 mg/dL (7-18); Calcium 8.9 mg/dL (8.5-10.1); Carbon Dioxide 28 mmol/L (21-32); Chloride 106 mmol/L (98-108); Estimated CRCL calculation 46 ml/min; Estimated Glomerular Filt Rate > 60; Glucose 104 mg/dL (70-99); Osmolality Calculated 295 mOsm/kg (285-295); Potassium 3.8 mmol/L (3.5-5.1); Sodium 142 mmol/L (136-145)
[2024-06-25 10:01] VITALS: BP 145/60; PULSE 64; RESP 12; TEMP 37; O2SAT 97
--- OUTSIDE RECORDS SUMMARY | 2024-06-28 21:39 | XMS_ITS | Encounter Summary ---
Author Organization [facility] Address Replaced by [facility] [place] [address] [place] [address] Care Team Providers Care Learning Manager Name Role Phone William Craig MD Primary Care Provider [phone] Judie Carnes MD Unavailable Encounter Details Date Type Department Care Team (Late st Contact Info) Description 03/08/2024 Orders Only [facility] [address] [place] [phone] Arnaldo Humphrey MD [address] [place] [address] Social History Tobacco Use Types Packs/Day Years Used Date Smoking Tobacco: Former Cigarettes Comments Unknown Sex and Gender Information Value Date Recorded Sex Assigned at Not on file Legal Sex Female 1:48 PM CDT Gender Identity Not on file Sexual Orientation Not on file documented as of this encounter Plan of Treatment Upcoming Encounters Date Type Department Care Team (Late st Contact Info) Description 01/17/2025 8:00 AM CDT Appointment [facility] [address] [place] [address] Judie Carnes MD [address] [place], [place] [phone] 01/20/2025 10:30 AM CDT Office Visit [facility] [address] [place] [phone] Judie Carnes MD [address] [place] [phone] documented as of this encounter Results * ECG 12 lead (HOSPITAL PERFORMED ONLY) (03/09/2024 9:28 AM CDT) 03/09/2024 9:28 AM CDT Narrative [facility] - 03/11/2024 2:54 PM CDT ? [facility] ?[address] [place], [place] ??[address] ? Test Date: ?2024-03-09 Pat Name: ? SENIA RUTH ?Department: ?? 3 ? Room: ? Gender: ? Female ? Geographic Information System Analyst: ?? : ?1960 ? Requested By: ARNALDO HUMPHREY Order Number: [id number] ? Reading MD: ?? Arnaldo Humphrey ? Measurements Intervals ?[place] ? Rate: ? 71 ? P: ?65 CO: ? 156 ?QRS: ?75 QRSD: ? 82 ? T: ?75 QT: ? 397 ? QTc: ?433 ? Interpretive Statements SINUS RHYTHM Procedure Note Arnaldo Humphrey MD - 03/11/[address] [place] [address] Test Date: 2024-03-09 Pat Name: SENIA RUTH Department: 3 Room: Gender: Female Geographic Information System Analyst: : 1960 Requested By: ARNALDO HUMPHREY Order Number: [id number] Haroldo MD: Arnaldo Humphrey Measurements Intervals [place] Rate: 71 P: 65 CO: 156 QRS: 75 QRSD: 82 T: 75 QT: 397 QTc: 433 Interpretive Statements SINUS RHYTHM us Arnaldo Humphrey MD ECG ORDERABLES Final Res ult [facility] documented in this encounter Visit Diagnoses Diagnosis Encounter for consultation- Primary Unspecified reason for consultation Mitral valve stenosis, unspecified etiology Hx of completed stroke- Primary Transient ischemic attack (TIA), and cerebral infarction without residual deficits documented in this encounter Care Teams Learning Manager Relationship Specialty Start Date End Date William Craig MD [address] [place] [address] PCP - General INTERNAL MEDICINE 01/15/24 Judie Carnes MD [address] [place] [address] [place] Fashion Buyer CARDIOVASCULAR DISEASE 01/15/24 documented as of this encounter
--- OUTSIDE RECORDS SUMMARY | 2024-06-28 21:39 | XMS_ITS | Encounter Summary ---
Author Organization [facility] Address [address] [place] [address] Care Team Providers Care Traveling Buyer Name Role Phone Unavailable Primary Care Provider Unavailabl e Encounter Details Date Type Department Care Team (Late st Contact Info) Description 09/05/2008 Orders Only [facility] - [facility] [address] [place] [phone] Edward Miranda MD [address] [place] [phone] Social History Tobacco Use Types Packs/Day Years Used Date Smoking Tobacco: Never Assessed Sex and Gender Information Value Date Recorded Sex Assigned at Not on file Gender Identity Not on file Sexual Orientation Not on file documented as of this encounter Plan of Treatment Not on file documented as of this encounter Procedures Procedure Name Priority Date/Time Associated Diagnosis Comments CBC W AUTO DIFFERENTIAL 09/05/2008 3:02 PM ELECTRICAL CAD DESIGNER COMPREHENSIVE METABOLIC PANEL 09/05/2008 3:02 PM ELECTRICAL CAD DESIGNER documented in this encounter Results * COMPREHENSIVE METABOLIC PANEL (09/05/2008 3:02 PM ELECTRICAL CAD DESIGNER) Glucose 96 65 - 99 mg/dL [facility] INSURANCE BILL BUN 11 5 - 26 mg/dL [facility] INSURANCE BILL Creatinine 0.85 0.57 - 1.00 mg/dL [facility] INSURANCE BILL eGFR by MDRD >59 >59 mL/min/1.7 3 [facility] INSURANCE BILL eGFR by MDRD >59 >59 mL/min/1.7 3 [facility] INSURANCE BILL Comment: Note: ??Persistent reduction for 3 months or more in an eGFR <60 mL/min/1.73 m2 defines CKD. ??Patients with eGFR values >/=60 mL/min/1.73 m2 may also have CKD if evidence of persistent proteinuria is present. Additional information may be found at [email or web address]. BUN/Creatinine Ratio 13 8 - 27 [facility] INSURANCE BILL Sodium 137 135 - 145 mmol/L [facility] INSURANCE BILL Potassium 4.3 3.5 - 5.2 mmol/L [facility] INSURANCE BILL Chloride 101 97 - 108 mmol/L [facility] INSURANCE BILL CO2 20 20 - 32 mmol/L [facility] INSURANCE BILL Calcium 9.4 8.5 - 10.6 mg/dL [facility] INSURANCE BILL Protein Total 6.9 6.0 - 8.5 g/dL [facility] INSURANCE BILL Albumin 4.0 3.5 - 5.5 g/dL [facility] INSURANCE BILL Globulin Total 2.9 1.5 - 4.5 g/dL [facility] INSURANCE BILL Albumin/Globulin Ratio 1.4 1.1 - 2.5 [facility] INSURANCE BILL Bilirubin Total 0.3 0.1 - 1.2 mg/dL [facility] INSURANCE BILL Alkaline Phosphatase 55 25 - 150 IU/L [facility] INSURANCE BILL AST 15 0 - 40 IU/L [facility] INSURANCE BILL ALT 14 0 - 40 IU/L [facility] INSURANCE BILL 09/05/2008 3:02 PM ELECTRICAL CAD DESIGNER 09/05/2008 10:36 PM ELECTRICAL CAD DESIGNER Narrative [facility] INSURANCE BILL - 09/06/2008 7:28 AM ELECTRICAL CAD DESIGNER [phone]. Resulting Agency Comment [facility] [address] ??On license of [facility] [id number] Edward Miranda MD LAB - CHEMISTRY ORD ERABLES [facility] INSURANCE BILL * CBC W AUTO DIFFERENTIAL (09/05/2008 3:02 PM ELECTRICAL CAD DESIGNER) WBC 6.8 4.0 - 10.5 x10E3/uL [facility] INSURANCE BILL RBC 4.20 3.80 - 5.10 x10E6/uL [facility] INSURANCE BILL Hemoglobin 12.8 11.5 - 15.0 g/dL [facility] INSURANCE BILL Hematocrit 38.0 34.0 - 44.0 % [facility] INSURANCE BILL MCV 91 80 - 98 fL [facility] INSURANCE BILL MCH 30.4 27.0 - 34.0 pg [facility] INSURANCE BILL MCHC 33.6 32.0 - 36.0 g/dL [facility] INSURANCE BILL RDW 14.3 11.7 - 15.0 % [facility] INSURANCE BILL Platelet Count 327 140 - 415 x10E3/uL [facility] INSURANCE BILL Granulocytes % 61 40 - 74 % [facility] INSURANCE BILL Lymphocytes % 28 14 - 46 % [facility] INSURANCE BILL Monocytes % 8 4 - 13 % [facility] INSURANCE BILL Eosinophils % 2 0 - 7 % [facility] INSURANCE BILL Basophils % 1 0 - 3 % [facility] INSURANCE BILL Granulocytes Absolute 4.1 1.8 - 7.8 x10E3/uL [facility] INSURANCE BILL Lymphocytes Absolute 1.9 0.7 - 4.5 x10E3/uL [facility] INSURANCE BILL Monocytes Absolute 0.5 0.1 - 1.0 x10E3/uL [facility] INSURANCE BILL Eosinophils Absolute 0.1 0.0 - 0.4 x10E3/uL [facility] INSURANCE BILL Basophils Absolute 0.1 0.0 - 0.2 x10E3/uL [facility] INSURANCE BILL Comment Hematology NOT AVAIL. [facility] INSURANCE BILL 09/05/2008 3:02 PM ELECTRICAL CAD DESIGNER 09/05/2008 10:36 PM ELECTRICAL CAD DESIGNER Narrative [facility] INSURANCE BILL - 09/06/2008 7:28 AM [facility] [phone]. Additional Result Information HEMATOLOGY COMMENTS: ??BLOOD,URINE ([facility]): RESULT NOT AVAILABLE Resulting Agency Comment [facility] [address] ??On license of [facility] [id number] Edward Miranda MD LAB - HEMATOLOGY OR DERABLES [facility] INSURANCE BILL documented in this encounter Visit Diagnoses Not on filedocumented in this encounter
--- OUTSIDE RECORDS SUMMARY | 2024-06-28 21:39 | XMS_ITS | Encounter Summary ---
Author Organization [facility] Address [facility] [facility] [place] [address] [place] [address] Care Team Providers Care Systems Integrator Name Role Phone William Craig MD Primary Care Provider [phone] Judie Carnes MD Unavailable Encounter Details Date Type Department Care Team (Latest Contact Info) Description 03/09/2024 Travel Social History Tobacco Use Types Packs/Day Years [...] Info) Description 01/17/2025 8:00 AM CDT Appointment [facility] [address] [place] [address] Judie Carnes MD [address] [place] [phone] 01/20/2025 10:30 AM CDT Office Visit [facility] [address] [place] [phone] Judie Carnes MD [address] [place], [place] [phone] documented as of this encounter Visit Diagnoses Not on filedocumented in this encounter Care Teams Systems Integrator Relationship Specialty Start Date End Date William Craig MD [address] [place] [phone] PCP - General INTERNAL MEDICINE 01/15/24 Judie Carnes MD [address] [place] [address] [place] Gun Tester CARDIOVASCULAR DISEASE 01/15/24 documented as of this encounter
--- OUTSIDE RECORDS SUMMARY | 2024-06-28 21:39 | XMS_ITS | Encounter Summary ---
Author Organization [facility] Health Address [address] [place] [address] Care Team Providers Care Mushroom Cultivator Name Role Phone Unavailable Primary Care Provider Unavailabl e Encounter Details Date Type Department Care Team (Late st Contact Info) Description 12/28/2008 Orders Only [facility] - Rheumatology [address] [place] [phone] Edward Miranda MD [address] [place] [address] [phone] Social History Tobacco Use Types Packs/Day Years Used Date Smoking Tobacco: Former Cigarettes Q uit: 10/27/2006 Alcohol Use Standard Drinks/Week Comments Yes 0 (1 standard drink = 0.6 oz pur e alcohol) social Sex and Gender Information Value Date Recorded Sex Assigned at Not on file Gender Identity Not on file Sexual Orientation Not on file documented as of this encounter Progress Notes * Deepali Castellon MA - 01/03/2009 10:58 AM CDTQuick Note: Pt informed on recorder. Sent letter as well * Edward Miranda MD - 01/01/2009 12:47 PM CDTQuick Note: Lfts ok Resume mtx documented in this encounter Plan of Treatment Not on file documented as of this encounter Procedures Procedure Name Priority Date/Time Associated Diagnosis Comments CBC W AUTO DIFFERENTIAL 12/28/2008 1:32 PM CDT COMPREHENSIVE METABOLIC PANEL 12/28/2008 1:32 PM CDT documented in this encounter Results * COMPREHENSIVE METABOLIC PANEL (12/28/2008 1:32 PM CDT) Glucose 91 65 - 99 mg/dL [facility] INSURANCE BILL BUN 16 5 - 26 mg/dL [facility] INSURANCE BILL Creatinine 0.88 0.57 - 1.00 mg/dL [facility] INSURANCE BILL [...] may be found at www.kdoqi.org. BUN/Creatinine Ratio 18 8 - 27 [facility] INSURANCE BILL Sodium 140 135 - 145 mmol/L [facility] INSURANCE BILL Potassium 4.6 3.5 - 5.2 mmol/L [facility] INSURANCE BILL Chloride 102 97 - 108 mmol/L [facility] INSURANCE BILL CO2 21 20 - 32 mmol/L [facility] INSURANCE BILL Calcium 9.6 8.5 - 10.6 mg/dL [facility] INSURANCE BILL Protein Total 7.1 6.0 - 8.5 g/dL [facility] INSURANCE BILL Albumin 4.4 3.5 - 5.5 g/dL [facility] INSURANCE BILL Globulin Total 2.7 1.5 - 4.5 g/dL [facility] INSURANCE BILL Albumin/Globulin Ratio 1.6 1.1 - 2.5 [facility] INSURANCE BILL Bilirubin Total 0.2 0.1 - 1.2 mg/dL [facility] INSURANCE BILL Alkaline Phosphatase 52 25 - 150 IU/L [facility] INSURANCE BILL AST 25 0 - 40 IU/L [facility] INSURANCE BILL ALT 26 0 - 40 IU/L [facility] INSURANCE BILL 12/28/2008 1:32 PM CDT 12/28/2008 8:45 PM CDT Narrative [facility] INSURANCE BILL - 12/29/2008 6:14 AM CDT [phone]. Resulting Agency Comment [facility] [address] ??[facility] [phone] Edward Miranda MD LAB - CHEMISTRY ORD ERABLES [facility] INSURANCE BILL * CBC W AUTO DIFFERENTIAL (12/28/2008 1:32 PM CDT) WBC 6.0 4.0 - 10.5 x10E3/uL [facility] INSURANCE BILL RBC 4.07 3.80 - 5.10 x10E6/uL [facility] INSURANCE BILL Hemoglobin 12.7 11.5 - 15.0 g/dL [facility] INSURANCE BILL Hematocrit 38.1 34.0 - 44.0 % [facility] INSURANCE BILL MCV 94 80 - 98 fL [facility] INSURANCE BILL MCH 31.2 27.0 - 34.0 pg [facility] INSURANCE BILL MCHC 33.4 32.0 - 36.0 g/dL [facility] INSURANCE BILL RDW 14.3 11.7 - 15.0 % [facility] INSURANCE BILL Platelet Count 257 140 - 415 x10E3/uL [facility] INSURANCE BILL Comment:Please note refere nce interval change Granulocytes % 57 40 - 74 % [facility] INSURANCE BILL Lymphocytes % 30 14 - 46 % [facility] INSURANCE BILL Monocytes % 9 4 - 13 % [facility] INSURANCE BILL Eosinophils % 3 0 - 7 % [facility] INSURANCE BILL Basophils % 1 0 - 3 % [facility] INSURANCE BILL Granulocytes Absolute 3.4 1.8 - 7.8 x10E3/uL [facility] INSURANCE BILL Lymphocytes Absolute 1.8 0.7 - 4.5 x10E3/uL [facility] INSURANCE BILL Monocytes Absolute 0.5 0.1 - 1.0 x10E3/uL [facility] INSURANCE BILL Eosinophils Absolute 0.2 0.0 - 0.4 x10E3/uL [facility] INSURANCE BILL Basophils Absolute 0.1 0.0 - 0.2 x10E3/uL [facility] INSURANCE BILL Comment Hematology NOT AVAIL. [facility] INSURANCE BILL 12/28/2008 1:32 PM CDT 12/28/2008 8:45 PM CDT Narrative [facility] INSURANCE BILL - 12/29/2008 6:14 AM CDT [phone]. Additional Result Information HEMATOLOGY COMMENTS: ??BLOOD,URINE ([facility]): RESULT NOT AVAILABLE Resulting Agency Comment [facility] ??[facility] [phone] Edward Miranda MD LAB - HEMATOLOGY OR DERABLES Performing Organization Address City/State/[facility] Co de Phone Number [facility] INSURANCE BILL documented in this encounter Visit Diagnoses Not on filedocumented in this encounter
--- OUTSIDE RECORDS SUMMARY | 2024-06-28 21:39 | XMS_ITS | Encounter Summary ---
Author Organization [facility] Health Address [address] [place] [address] Care Team Providers Care Pool Table Mechanic Name Role Phone Unavailable Primary Care Provider Unavailabl e Reason for Visit * Reason Onset Date Comments MEDICATION REFILL 02/25/2011 Encounter Details Date Type Department Care Team (Late st Contact Info) Description 02/25/2011 Refill [facility] Medical [facility] - Family Medicine [id number] [place] [address] [phone] Edward Miranda MD [address] [place] [phone] MEDICATION REFILL Social History Tobacco Use Types Packs/Day Years [...] on file documented as of this encounter Visit Diagnoses Diagnosis Rheumatoid arthritis(714.0) ([facility])- Primary Rheumatoid arthritis documented in this encounter
--- OUTSIDE RECORDS SUMMARY | 2024-06-28 21:39 | XMS_ITS | Encounter Summary ---
Author Organization [facility] Health Address [address] [place] [address] Care Team Providers Care Driller And Reamer Name Role Phone Unavailable Primary Care Provider Unavailabl e Reason for Visit * Reason Comments Follow-up ra, back pain Encounter Details Date Type Department Care Team (Late st Contact Info) Description 10/24/2009 10:15 AM CDT Office Visit [facility] - Rheumatology [address] [place] [phone] Edward Miranda MD [address] [place], [place] [phone] Rheumatoid Arthritis (HCC) (Primary Dx) Social History Tobacco Use Types Packs/Day Years Used Date Smoking Tobacco: Former Cigarettes Q uit: 10/27/2006 Alcohol Use Standard Drinks/Week Comments Yes 0 (1 standard drink = 0.6 oz pur e alcohol) social Sex and Gender Information Value Date Recorded Sex Assigned at Not on file Gender Identity Not on file Sexual Orientation Not on file documented as of this encounter Last Filed Vital Signs Vital Sign Reading Time Taken Comments Blood Pressure 132/72 10/24/2009 11:13 AM CDT Pulse 76 10/24/2009 11:13 AM CDT Temperature - - Respiratory Rate - - Oxygen Saturation - - Inhaled Oxygen Concentration - - Weight 61.7 kg (136 lb) 10/24/2009 11:13 AM CDT Height - - Body Mass Index 24.09 10/27/2008 10:24 AM CDT documented in this encounter Progress Notes * Deepali Castellon MA - 10/30/2009 12:56 PM CDTQuick Note: Sent lab letter to pt * Edward Miranda MD - 10/28/2009 11:23 PM CDTQuick Note: Mtx ok Bs 111 * Edward Miranda MD - 10/24/2009 11:40 AM CDT Subjective: Senia Ruth 48 y.o. female Chief Complaint Patient presents with ??? Follow-up ra, back pain Current outpatient prescriptions prior to encounter Medication Sig Dispense Refill ??? Methotrexate (Anti-Rheumatic) 2.5 MG TABS Take 4 Tabs by mouth every 7 days. 16 12 ??? NASONEX 50 MCG/ACT SUSP [place] 1 [place] into each nostril daily. Prn in the am ??? metoprolol (LOPRESSOR) 10 mg/ml Take by mouth daily. Patient Active Problem List Diagnoses Code ??? Rheumatoid Arthritis 714.0 ??? Back Pain 724.5E History Tobacco Use ??? Quit ??? Quit date: 10/27/2006 History Alcohol Use ??? Yes social History Drug Use No doing well Pain Level: 2 Am stiffness 5 min Global 10 Fatigue y Medication Side Effects n Review of Systems: GENERAL: No fever, chills, sweats, weight loss EARS: No wax or hearing loss. NOSE: No runny nose, bleeding, sinus drainage MOUTH: No gingivitis or stomatitis GI: No nausea vomiting, abdominal pain, weight loss, anorexia, gerd HEART: No chest pain, palpitations, orthopnea, syncope LUNGS: No shortness of breath, cough, pleurisy, wheezing : No nocturia, dysuria, frequency, urgency, kidney stones. SKIN: No rash, itching, dry skin MS: No muscle weakness, tenderness or joint pain NEURO: No headaches, seizures, dizziness, confusion, numbness, tingling HEME: No bruising or bleeding, swollen glands EXTREMITIES: No cyanosis, clubbing, edema OTHER: Objective: BP 132/72 Pulse 76 Wt 61.689 kg (136 lb) Tender Joint Count 0/28 Swollen Joint Count 0/28 Muscles: Weak or Tender 0 Rheumatoid Nodules: 0 Physical Exam: HEENT perrla, hearing and vision intact, throat clear NECK- supple, no bruits LUNGS- clear, no rales , rhonchi or wheezes HEART- Normal Sinus Rhythm, no S3, S4 or murmurs ABDOMEN- soft, no masses or tenderness, no organomegaly EXTREMITIES- no edema CIRCULATION- Intact SKIN- no rash Assessment: Encounter Diagnoses Code Name Primary? 714.0 Rheumatoid Arthritis Yes Plan: Plan Orders Placed This Encounter ??? Cbc w auto differential ??? Comprehensive metabolic panel ??? C-reactive protein ??? Sed rate westergren auto Follow up in office in 4 mo Same meds * Deepali Castellon MA - 10/24/2009 11:13 AM CDT Chief Complaint Patient presents with ??? Follow-up ra, back pain BP 132/72 Pulse 76 Wt 61.689 kg (136 lb) documented in this encounter Plan of Treatment Scheduled Orders Name Type Priority Associated Diagnoses Orde r Schedule CBC W AUTO DIFFERENTIAL Lab Routine Rheumatoid Arthritis (HCC) Ordered: 10/24/2009 documented as of this encounter Procedures Procedure Name Priority Date/Time Associated Diagnosis Comments C-REACTIVE PROTEIN Routine 10/24/2009 11 :26 AM CDT Rheumatoid Arthritis (HCC) ERYTHROCYTE SEDIMENTATION RATE Routine 10/24/2009 11:26 AM CDT Rheumatoid Arthritis (HCC) COMPREHENSIVE METABOLIC PANEL Routine 10/24/2009 11:26 AM CDT Rheumatoid Arthritis (HCC) documented in this encounter Results * SED RATE WESTERGREN AUTO (10/24/2009 11:26 AM CDT) Erythrocyte Sedimentation Rate Westergren 6 0 - 20 mm/hr [facility] ACCOUNT BILL BLOOD SPECIMEN / Unknown 10/24/2009 11:26 AM CDT 10/24/2009 5:27 PM CDT Narrative Resulting Agency Comment [facility] [address] ??[facility] [phone] Edward Miranda MD LAB - HEMATOLOGY OR DERABLES [facility] ACCOUNT BILL * C-REACTIVE PROTEIN (10/24/2009 11:26 AM CDT) C-Reactive Protein 1.7 0.0 - 4.9 mg/L [facility] ACCOUNT BILL BLOOD SPECIMEN / Unknown 10/24/2009 11:26 AM CDT 10/24/2009 5:27 PM CDT Narrative Resulting Agency Comment [facility] [address] ??[facility] [phone] Edward Miranda MD LAB - CHEMISTRY ORD ERABLES [facility] ACCOUNT BILL * (ABNORMAL) COMPREHENSIVE METABOLIC PANEL (10/24/2009 11:26 AM CDT) Glucose 111(H) 65 - 99 mg/dL [facility] ACCOUNT BILL BUN 11 5 - 26 mg/dL [facility] ACCOUNT BILL Creatinine 0.89 0.57 - 1.00 mg/dL [facility] ACCOUNT BILL eGFR by MDRD >59 >59 mL/min/1.7 3 [facility] ACCOUNT BILL eGFR by MDRD >59 >59 mL/min/1.7 3 [facility] ACCOUNT BILL Comment: Note: ??Persistent reduction for 3 months or more in an eGFR <60 mL/min/1.73 m2 defines CKD. ??Patients with eGFR values >/=60 mL/min/1.73 m2 may also have CKD if evidence of persistent proteinuria is present. Additional information may be found at www.kdoqi.org. BUN/Creatinine Ratio 12 8 - 27 [facility] ACCOUNT BILL Sodium 136 135 - 145 mmol/L [facility] ACCOUNT BILL Potassium 4.3 3.5 - 5.2 mmol/L [facility] ACCOUNT BILL Chloride 101 97 - 108 mmol/L [facility] ACCOUNT BILL CO2 21 20 - 32 mmol/L [facility] ACCOUNT BILL Calcium 9.1 8.7 - 10.2 mg/dL [facility] ACCOUNT BILL Protein Total 7.1 6.0 - 8.5 g/dL [facility] ACCOUNT BILL Albumin 4.4 3.5 - 5.5 g/dL [facility] ACCOUNT BILL Globulin Total 2.7 1.5 - 4.5 g/dL [facility] ACCOUNT BILL Albumin/Globulin Ratio 1.6 1.1 - 2.5 [facility] ACCOUNT BILL Bilirubin Total 0.3 0.1 - 1.2 mg/dL [facility] ACCOUNT BILL Comment: ? Effective November 05, 2009, Bilirubin, Total, ? reference interval will be changing to: ?mg/dL ?Newborns, term and near term: ?24 hours old: ?0.0 - ??8.0 ?48 hours old: ?0.0 - 13.2 ?72 hours old: ?0.0 - 15.6 ?96 hours to 1 month old: ? 0.0 - 16.6 ?Children 1 month and older and ?Adults: ?0.0 - ??1.2 ? . ? *Panic value will be changed such that results* ?>17.0 mg/dL ??will be called as panics. Alkaline Phosphatase 50 25 - 150 IU/L [facility] ACCOUNT BILL AST 16 0 - 40 IU/L [facility] ACCOUNT BILL ALT 17 0 - 40 IU/L [facility] ACCOUNT BILL BLOOD SPECIMEN / Unknown 10/24/2009 11:26 AM CDT 10/24/2009 5:27 PM CDT Narrative Resulting Agency Comment [facility] [place] [address] ??[place] [phone] Edward Miranda MD LAB - CHEMISTRY HÉCTOR BALL[facility] ([place], [place]) Organization Address City/State/ZIP Co de Phone Number [facility] ACCOUNT BILL documented in this encounter Visit Diagnoses Diagnosis Rheumatoid arthritis(714.0) (HCC)- Primary Rheumatoid arthritis documented in this encounter
--- OUTSIDE RECORDS SUMMARY | 2024-06-28 21:39 | XMS_ITS | Encounter Summary ---
Author Organization [facility] Address [address] [place] [address] Care Team Providers Care Brass Pourer Name Role Phone Edward Miranda MD Unavailable [phone] Reason for Visit * Reason Comments Follow-up Ra Encounter Details Date Type Department Care Team (Late st Contact Info) Description 06/25/2011 10:15 AM SMALL BRAKE FORM OPERATOR Office Visit [facility] Medical [facility] - Rheumatology [address] [place] [address] [phone] Edward Miranda MD [address] [place] [phone] Rheumatoid arthritis (HCC) (Primary Dx) Social History Tobacco Use [...] Sign Reading Time Taken Comments Blood Pressure 128/74 06/25/2011 10:28 AM SMALL BRAKE FORM OPERATOR Pulse 76 06/25/2011 10:28 AM SMALL BRAKE FORM OPERATOR Temperature - - Respiratory Rate - - Oxygen Saturation - - Inhaled Oxygen Concentration - - Weight 62.1 kg (137 lb) 06/25/2011 10:28 AM SMALL BRAKE FORM OPERATOR Height - - Body Mass Index 24.27 10/27/2008 10:24 AM CDT documented in this encounter Progress Notes * Bibiana Paula MA - 07/10/2011 4:55 PM CSTQuick Note: Letter mailed to patient regarding lab results. L BRAKE FORM OPERATOR * Edward Miranda MD - 07/07/2011 8:05 PM CSTQuick Note: mtx ok L BRAKE FORM OPERATOR * Edward Miranda MD - 06/25/2011 10:27 AM CST Subjective: Senia Ruth 50 y.o. female Chief Complaint Patient presents with ??? Follow-up Ra Current Outpatient Prescriptions on File Prior to Visit Medication Sig Dispense Refill ??? methotrexate (RHEUMATREX) 2.5 MG tablet Take 4 Tabs by mouth every 7 days. 16 Tab 5 ??? NASONEX 50 MCG/ACT SUSP [place] 1 [place] into each nostril daily. Prn in the am ??? metoprolol (LOPRESSOR) 10 mg/ml Take by mouth daily. Patient Active Problem List Diagnoses ??? Rheumatoid Arthritis ??? Back Pain ??? Screening cholesterol level ??? HTN (hypertension) ??? Hyperlipidemia History Smoking status ??? Former Smoker ??? Quit date: 10/27/2006 Smokeless tobacco ??? Not on file History Alcohol Use ??? Yes social History Drug Use No not as busy at work On mtx 10 mg/wk for ra doping well Pain Level: 2/10 knees hands Am stiffness 5 min Global 2/10 Fatigue y Medication Side Effects n Review [...] SKIN: No rash, itching, dry skin MS: NEURO: No headaches, seizures, dizziness, confusion, numbness, tingling HEME: No bruising or bleeding, swollen glands EXTREMITIES: No cyanosis, clubbing, edema OTHER: Objective: BP 128/74 Pulse 76 Wt 137 lb (62.143 kg) Tender Joint Count 0/28 Swollen Joint Count 0/28 Muscles: Weak or Tender 0 Rheumatoid Nodules: 0 Physical Exam: wd wn wf in nad HEENT perrla, hearing and vision intact, throat clear NECK- supple, no bruits LUNGS- clear, no rales , rhonchi or wheezes HEART- Normal Sinus Rhythm, no S3, S4 or murmurs ABDOMEN- soft, no masses or tenderness, no organomegaly EXTREMITIES- no edema CIRCULATION- Intact SKIN- no rash Assessment: Encounter Diagnoses Name Primary? Rheumatoid arthritis Yes Plan: Plan Orders Placed This Encounter ??? CBC W AUTO DIFFERENTIAL ??? COMPREHENSIVE METABOLIC PANEL ??? C-REACTIVE PROTEIN ??? SED RATE WESTERGREN AUTO Follow up in office in 4mo L BRAKE FORM OPERATOR * Deepali Castellon MA - 06/25/2011 10:26 AM CST Chief Complaint Patient presents with ??? Follow-up Ra BP 128/74 Pulse 76 Wt 137 lb (62.143 kg) L BRAKE FORM OPERATOR documented in this encounter Plan of Treatment Not on file documented as of this encounter Procedures Procedure Name Priority Date/Time Associated Diagnosis Comments ERYTHROCYTE SEDIMENTATION RATE Routine 06/25/2011 10:36 AM SMALL BRAKE FORM OPERATOR Rheumatoid arthritis (HCC) CBC W AUTO DIFFERENTIAL Routine 06/25/2011 10:36 AM SMALL BRAKE FORM OPERATOR Rheumatoid arthritis (HCC) C-REACTIVE PROTEIN Routine 06/25/2011 10 :35 AM SMALL BRAKE FORM OPERATOR Rheumatoid arthritis (HCC) COMPREHENSIVE METABOLIC PANEL Routine 06/25/2011 10:35 AM SMALL BRAKE FORM OPERATOR Rheumatoid arthritis (HCC) documented in this encounter Results * SED RATE WESTERGREN AUTO (06/25/2011 10:36 AM SMALL BRAKE FORM OPERATOR) Erythrocyte Sedimentation Rate Westergren 4 0 - 56 mm/hr [facility] ACCOUNT BILL Blood specimen (specimen) BLOOD SPECIMEN / Unknown 06/25/2011 10:36 AM SMALL BRAKE FORM OPERATOR 06/25/2011 5:54 PM SMALL BRAKE FORM OPERATOR Narrative Resulting Agency Comment [facility] [place] [address] ??[facility] [phone] Edward Miranda MD LAB - HEMATOLOGY OR DERABLES [facility] ACCOUNT BILL * CBC W AUTO DIFFERENTIAL (06/25/2011 10:36 AM SMALL BRAKE FORM OPERATOR) WBC 5.2 4.0 - 10.5 x10E3/uL [facility] ACCOUNT BILL RBC 4.35 3.80 - 5.10 x10E6/uL [facility] ACCOUNT BILL Hemoglobin 13.6 11.5 - 15.0 g/dL [facility] ACCOUNT BILL Hematocrit 42.5 34.0 - 44.0 % [facility] ACCOUNT BILL MCV 98 80 - 98 fL [facility] ACCOUNT BILL MCH 31.3 27.0 - 34.0 pg [facility] ACCOUNT BILL MCHC 32.0 32.0 - 36.0 g/dL [facility] ACCOUNT BILL RDW 14.2 11.7 - 15.0 % [facility] ACCOUNT BILL Platelet Count 314 140 - 415 x10E3/uL [facility] ACCOUNT BILL Granulocytes % 63 40 - 74 % [facility] ACCOUNT BILL Lymphocytes % 24 14 - 46 % [facility] ACCOUNT BILL Monocytes % 9 4 - 13 % [facility] ACCOUNT BILL Eosinophils % 3 0 - 7 % [facility] ACCOUNT BILL Basophils % 1 0 - 3 % [facility] ACCOUNT BILL Immature Cells NOT NEEDED [facility] ACCOUNT BILL Comment:Ancillary determined the test is not needed Granulocytes Absolute 3.3 1.8 - 7.8 x10E3/uL [facility] ACCOUNT BILL Lymphocytes Absolute 1.2 0.7 - 4.5 x10E3/uL [facility] ACCOUNT BILL Monocytes Absolute 0.5 0.1 - 1.0 x10E3/uL [facility] ACCOUNT BILL Eosinophils Absolute 0.2 0.0 - 0.4 x10E3/uL [facility] ACCOUNT BILL Basophils Absolute 0.0 0.0 - 0.2 x10E3/uL [facility] ACCOUNT BILL Immature Granulocytes 0 0 - 2 % [facility] ACCOUNT BILL Immature Granulocytes Absolute 0.0 0.0 - 0.1 x10E3/uL [facility] ACCOUNT BILL nRBC NOT NEEDED [facility] ACCOUNT BILL Comment:Ancillary determined the test is not needed Comment Hematology NOT NEEDED [facility] ACCOUNT BILL Comment:Ancillary determined the test is not needed Blood specimen (specimen) BLOOD SPECIMEN / Unknown 06/25/2011 10:36 AM SMALL BRAKE FORM OPERATOR 06/25/2011 5:54 PM SMALL BRAKE FORM OPERATOR Narrative Resulting Agency Comment [facility] [address] ??[facility] [phone] Edward Miranda MD LAB - HEMATOLOGY OR DERABLES Performing Organization Address [facility]/ZIP Co de Phone Number [facility] ACCOUNT BILL * C-REACTIVE PROTEIN (06/25/2011 10:35 AM SMALL BRAKE FORM OPERATOR) C-Reactive Protein 2.7 0.0 - 4.9 mg/L [facility] ACCOUNT BILL Blood specimen (specimen) BLOOD SPECIMEN / Unknown 06/25/2011 10:35 AM SMALL BRAKE FORM OPERATOR 06/25/2011 6:23 PM SMALL BRAKE FORM OPERATOR Narrative Resulting Agency Comment [facility] [phone] [facility] ??[facility] [phone] Edward Miranda MD LAB - CHEMISTRY ORD ERABLES Performing Organization Address City/[facility]/ZIP Co de Phone Number [facility] ACCOUNT BILL * (ABNORMAL) COMPREHENSIVE METABOLIC PANEL (06/25/2011 10:35 AM SMALL BRAKE FORM OPERATOR) Glucose 122(H) 65 - 99 mg/dL [facility] ACCOUNT BILL BUN 10 6 - 24 mg/dL [facility] ACCOUNT BILL Creatinine 0.87 0.57 - 1.00 mg/dL [facility] ACCOUNT BILL eGFR by MDRD 78 >59 mL/min/1.7 3 [facility] ACCOUNT BILL eGFR by MDRD 90 >59 mL/min/1.7 3 [facility] ACCOUNT BILL Comment: Note: A persistent eGFR <60 mL/min/1.73 m2 (3 months or more) may indicate chronic kidney disease. An eGFR >59 mL/min/1.73 m2 with an elevated urine protein also may indicate chronic kidney disease. Calculated using CKD-EPI formula. BUN/Creatinine Ratio 11 9 - 23 [facility] ACCOUNT BILL Sodium 141 135 - 145 mmol/L [facility] ACCOUNT BILL Comment: ? Effective June 30, 2011 Sodium, Serum reference ? interval will be changing to: ?134 - 144 mmol/L Potassium 4.5 3.5 - 5.2 mmol/L [facility] ACCOUNT BILL Chloride 103 97 - 108 mmol/L [facility] ACCOUNT BILL CO2 20 20 - 32 mmol/L [facility] ACCOUNT BILL Calcium 9.2 8.7 - 10.2 mg/dL [facility] ACCOUNT BILL Protein Total 7.1 6.0 - 8.5 g/dL [facility] ACCOUNT BILL Albumin 4.5 3.5 - 5.5 g/dL [facility] ACCOUNT BILL Globulin Total 2.6 1.5 - 4.5 g/dL [facility] ACCOUNT BILL Albumin/Globulin Ratio 1.7 1.1 - 2.5 [facility] ACCOUNT BILL Bilirubin Total 0.2 0.0 - 1.2 mg/dL [facility] ACCOUNT BILL Alkaline Phosphatase 52 25 - 150 IU/L [facility] ACCOUNT BILL AST 18 0 - 40 IU/L [facility] ACCOUNT BILL ALT 19 0 - 40 IU/L [facility] ACCOUNT BILL Blood specimen (specimen) BLOOD SPECIMEN / Unknown 06/25/2011 10:35 AM SMALL BRAKE FORM OPERATOR 06/25/2011 6:23 PM SMALL BRAKE FORM OPERATOR Narrative Resulting Agency Comment [facility] [address] ??[facility] [phone] Edward Miranda MD LAB - CHEMISTRY ORD ERABLES [facility] ACCOUNT BILL documented in this encounter Visit Diagnoses Diagnosis Rheumatoid arthritis(714.0) (HCC)- Primary Rheumatoid arthritis documented in this encounter Care Teams Brass Pourer Relationship Specialty Start Date End Date Edward Miranda MD Rheumatology 06/24/11 documented as of this encounter
--- OUTSIDE RECORDS SUMMARY | 2024-06-28 21:39 | XMS_ITS | Encounter Summary ---
Author Organization [facility] Address [facility] [place] [address] [place] [address] Care Team Providers Care Relations Manager Name Role Phone William Craig MD Primary Care Provider [phone] Judie Carnes MD Unavailable Reason for Referral * Imaging (Routine) - Pending Review Specialty Diagnoses / Procedures Referred By Contac t Referred To Contact RADIOLOGY Diagnoses Cerebrovascular accident (CVA) due to other mechanism ([facility]) Procedures XA LOOP RECORDER Arnaldo Ga MD [address] [place] [address] Phone: tel: fax: Referral ID Status Reason Start Date Expiration Date V isits Requested Visits Authorized [id number] Pending Review 04/06/2024 05/07/2025 1 1 Reason for Visit * Reason Onset Date Comments Schedule Procedure 04/05/2024 Called To Cancel Office Appt. 04/05/2024 Encounter Details Date Type Department Care Team (Late st Contact Info) Description 04/05/2024 Telephone [facility]eld [address] [place] [address] Arnaldo Ga MD [address] [place] [address] Schedule Procedure; Called To Cancel Office Appt. Social History Tobacco Use Types Packs/Day Years Used Date Smoking Tobacco: Former Cigarettes Comments Unknown Sex and Gender Information Value Date Recorded Sex Assigned at Not on file Legal Sex Female 1:48 PM CDT Gender Identity Not on file Sexual Orientation Not on file documented as of this encounter Progress Notes * Zuleyka Duffy - 04/11/2024 9:33 AM CDT Patient's Oneil called to cancel Loop procedure due to patient had a mini stroke. [facility] Sacha gomez, RN aware. * Linda Collins RN - 04/06/2024 1:10 PM CDTAddended by: LINDA COLLINS on: 04/06/2024 01:10 PM Modules accepted: Orders * Linda Collins RN - 04/06/2024 12:33 PM CDT Pt's Skyler returned my call regarding her procedure. Proc: MDT Loop Date: 04/19/24 Arrival: 1300 Start: 1430 H&P: precath AG NPO: 12:30 pm F/u: 08/24/24 @ 1400 in [place] w/ AG & MDT All instructions reviewed, letter mailed, pt v/u and had no questions. * Linda Collins RN - 04/05/2024 3:48 PM CDT Called pt to discuss procedure, no answer, left vm for her to return my call. documented in this encounter Plan of Treatment Upcoming Encounters Date Type Department Care Team (Late st Contact Info) Description 01/17/2025 8:00 AM CDT Appointment [facility] [address] [place] [address] Judie Carnes MD [address] [place] [address] 01/20/2025 10:30 AM CDT Office Visit [facility] [place] [address] Judie Carnes MD [address] [place] [address] Scheduled Orders Name Type Priority Associated Diagnoses Orde r Schedule XA LOOP RECORDER Cardiac Cath Routine Cerebrovascular accident (CVA) due to other mechanism ([facility]) Expected: 04/19/2024, Expires: 04/06/2025 documented as of this encounter Visit Diagnoses Diagnosis Cerebrovascular accident (CVA) due to other mechanism ([facility])- Primary documented in this encounter Care Teams Relations Manager Relationship Specialty Start Date End Date William Craig MD [address] [place] [address] PCP - General INTERNAL MEDICINE 01/15/24 Judie Carnes MD [address] [place] [address] [place] [facility] Abdominal Muscle Nurse CARDIOVASCULAR DISEASE 01/15/24 documented as of this encounter
--- OUTSIDE RECORDS SUMMARY | 2024-06-28 21:39 | XMS_ITS | Clinical Summary ---
Author Organization [facility] [employer] Address [address] [place] [address] Care Team Providers Care Arboriculture Instructor Name Role Phone Edward Miranda MD Unavailable [phone] Source Comments [facility],non-owned Affiliates and Associated Physician Practices is amultiple site organization consisting of ambulatory clinics and hospital sitesin [place], [place], [place] and [place]. This disclosure is being madepursuant to the Care Everywhere program and may not contain all information available regarding this patient. Last updated 18.[facility] [employer] Allergies Active Allergy Reactions Criticality Noted Date Comments Lisinopril 10/27/2008 Cough Medications * Be aware that medications may not be up to date on this document. Alwaysverify current medications with the patient. Medication Sig Dispensed Refills Start Date End Date Status NASONEX 50 MCG/ACT SUSP [place] 1 [place] into each nostril daily. Prn in the am Active metoprolol (LOPRESSOR) 10 mg/ml Take by mouth daily. Active methotrexate 2.5 MG tabletIndications:Rheu matoid arthritis(714.0) (HCC) Take 4 Tabs by mouth every 7 days. 16 Tab 5 03/16/2012 Active azithromycin (ZITHROMAX) 250 mg yair Take by mouth. 2 tablets day 1, then 1 tablet daily for 4 days 1 Kit 0 04/13/2012 Active Active Problems Problem Noted Date Diagnosed Date Hyperlipidemia 02/26/2011 Screening cholesterol level 11/06/2010 Rheumatoid arthritis 10/24/2008 Overview (05/20/2015): Back pain 10/24/2008 HTN (hypertension) 02/26/2007 Social History Tobacco Use Types Packs/Day Years Used Date Smoking Tobacco: Former Cigarettes Q uit: 10/27/2006 Alcohol Use Standard Drinks/Week Comments Yes 0 (1 standard drink = 0.6 oz pur e alcohol) social Sex and Gender Information Value Date Recorded Sex Assigned at Not on file Gender Identity Not on file Sexual Orientation Not on file Last Filed Vital Signs Vital Sign Reading Time Taken Comments Blood Pressure 148/90 04/13/2012 3:27 PM CDT Pulse 76 04/13/2012 3:27 PM CDT Temperature - - Respiratory Rate - - Oxygen Saturation - - Inhaled Oxygen Concentration - - Weight 63.5 kg (140 lb) 04/13/2012 3:27 PM CDT Height 160 cm (5' 3 ) 10/27/2008 10:24 AM CDT Body Mass Index 24.8 10/27/2008 10:24 AM CDT Plan of Treatment Health Maintenance Due Date Last Done Comments COLOGUARD (AGES 45-75) - COL ON CA SCREENING 1960 COLON MONITORING 1960 COLONOSCOPY - COLON CA SCREENING 1960 CT COLONOGRAPHY - COLON CA SCREENING 1960 Colorectal Cancer Screening 1960 FIT - COLON CA SCREENING 1960 FLEX SIG - COLON CA SCREENING 1960 MAMMOGRAM 1960 PAP SMEAR 1960 HIV SCREENING 12/25/1975 HEPATITIS C SCREENING 12/20/1978 DTAP/TDAP/TD VACCINES (1 - Tdap) 12/25/1979 ZOSTER VACCINE (1 of 2) 2010 LIPID TESTING 11/07/2015 11/06/2010 DEPRESSION SCREENING 07/13/2023 COVID-19 VACCINE (1 - 2023-2 5 season) 2024 INFLUENZA VACCINE (#1) 2024 Respiratory Syncytial Virus (RSV) Vaccine Pt: or over 60 yrs (1 - 1-dose 75+ series) 12/25/2035 HEPATITIS B VACCINE Aged Out No longe r eligible based on patient's age to complete this topic HIB VACCINE Aged Out No longer eligi ble based on patient's age to complete this topic HPV VACCINE Aged Out No longer eligi ble based on patient's age to complete this topic MENINGOCOCCAL VACCINE Aged Out No juan nba eligible based on patient's age to complete this topic PNEUMOCOCCAL VACCINE Aged Out No long er eligible based on patient's age to complete this topic Procedures Procedure Name Priority Date/Time Associated Diagnosis Comments LIPID PROFILE W LDL/HDL RATIO Routine 11/06/2010 10:13 AM CDT Screening cholesterol level from Last 3 Months or Most Recently Relevant to Health Maintenance Results * (ABNORMAL) LIPID PROFILE W LDL/HDL (PO REF LAB) (11/06/2010 10:13 AM CDT) Cholesterol 246(H) 100 - 199 mg/dL [facility] ACCOUNT BILL Triglycerides 142 0 - 149 mg/dL [facility] ACCOUNT BILL HDL Cholesterol 49 >39 mg/dL [facility] ACCOUNT BILL Comment: According to ATP-III Guidelines, HDL-C >59 mg/dL is considered a negative risk factor for CHD. VLDL Calculated 28 5 - 40 mg/dL [facility] ACCOUNT BILL LDL Calculated 169(H) 0 - 99 mg/dL [facility] ACCOUNT BILL LDL/HDL Ratio 3.4(H) 0.0 - 3.2 ratio units [facility] ACCOUNT BILL BLOOD SPECIMEN / Unknown 11/06/2010 10:13 AM CDT 11/06/2010 5:53 PM CDT Narrative Resulting Agency Comment [facility] [address] ??[facility] [phone] Edward Miranda MD LAB - CHEMISTRY ORD ERABLES [facility] ACCOUNT BILL from Last 3 Months or Most Recently Relevant to Health Maintenance Care Teams Arboriculture Instructor Relationship Specialty Start Date End Date Edward Miranda MD Rheumatology 06/24/11
--- OUTSIDE RECORDS SUMMARY | 2024-06-28 21:39 | XMS_ITS | Encounter Summary ---
Author Organization [facility] Address [address] [place] [address] Care Team Providers Care Pocket Setter Lockstitch Name Role Phone Unavailable Primary Care Provider Unavailabl e Encounter Details Date Type Department Care Team (Late st Contact Info) Description 10/24/2009 Orders Only [facility] - Rheumatology [address] [place] [id number] Edward Miranda MD [address] [place] [id number] Social History Tobacco Use Types Packs/Day Years [...] Associated Diagnosis Comments CBC W AUTO DIFFERENTIAL 10/24/2009 11:26 AM CDT documented in this encounter Results * CBC W AUTO DIFFERENTIAL (10/24/2009 11:26 AM CDT) WBC 5.1 4.0 - 10.5 x10E3/uL [facility] ACCOUNT BILL RBC 4.20 3.80 - 5.10 x10E6/uL [facility] ACCOUNT BILL Hemoglobin 13.1 11.5 - 15.0 g/dL [facility] ACCOUNT BILL Hematocrit 39.5 34.0 - 44.0 % [facility] ACCOUNT BILL MCV 94 80 - 98 fL [facility] ACCOUNT BILL MCH 31.3 27.0 - 34.0 pg [facility] ACCOUNT BILL MCHC 33.3 32.0 - 36.0 g/dL [facility] ACCOUNT BILL RDW 15.0 11.7 - 15.0 % [facility] ACCOUNT BILL Platelet Count 272 140 - 415 x10E3/uL [facility] ACCOUNT BILL Granulocytes % 59 40 - 74 % [facility] ACCOUNT BILL Lymphocytes % 27 14 - 46 % [facility] ACCOUNT BILL Monocytes % 11 4 - 13 % [facility] ACCOUNT BILL Eosinophils % 2 0 - 7 % [facility] ACCOUNT BILL Basophils % 1 0 - 3 % [facility] ACCOUNT BILL Immature Cells NOT AVAIL. [facility] ACCOUNT BILL Granulocytes Absolute 3.0 1.8 - 7.8 x10E3/uL [facility] ACCOUNT BILL Lymphocytes Absolute 1.4 0.7 - 4.5 x10E3/uL [facility] ACCOUNT BILL Monocytes Absolute 0.6 0.1 - 1.0 x10E3/uL [facility] ACCOUNT BILL Eosinophils Absolute 0.1 0.0 - 0.4 x10E3/uL [facility] ACCOUNT BILL Basophils Absolute 0.1 0.0 - 0.2 x10E3/uL [facility] ACCOUNT BILL Immature Granulocytes NOT AVAIL. [facility] ACCOUNT BILL Immature Granulocytes Absolute NOT AVAIL. [facility] ACCOUNT BILL nRBC NOT AVAIL. [facility] ACCOUNT BILL Comment Hematology NOT AVAIL. [facility] ACCOUNT BILL 10/24/2009 11:2 6 AM CDT 10/24/2009 5:27 PM CDT Narrative [facility] ACCOUNT BILL - 10/25/2009 8:27 AM CDT Additional Result Information IMMATURE CELLS ([facility]): RESULT NOT AVAILABLE IMMATURE GRANULOCYTES ([facility]): RESULT NOT AVAILABLE IMMATURE GRANS (ABS) ([facility]): RESULT NOT AVAILABLE NRBC ([facility]): RESULT NOT AVAILABLE HEMATOLOGY COMMENTS: ??BLOOD,URINE ([facility]): RESULT NOT AVAILABLE Resulting Agency Comment [facility] [address] ??[facility] [phone] Edward Miranda MD LAB - HEMATOLOGY OR DERABLES [facility] ACCOUNT BILL documented in this encounter Visit Diagnoses Not on filedocumented in this encounter
--- OUTSIDE RECORDS SUMMARY | 2024-06-28 21:39 | XMS_ITS | Encounter Summary ---
Author Organization [facility] Address [facility] [facility] [place] [address] [place] [address] Care Team Providers Care Feed Weigher Name Role Phone William Craig MD Primary Care Provider [phone] Judie Rowell MD Unavailable Encounter Details Date Type Department Care Team (Latest Contact Info) Description 01/18/2024 11:31 AM CDT - 01/18/2024 11:59 PM T Hospital Encounter [facility] [address] [place] [address] [place] [address] Judie Rowell MD [address] [place], [place] [phone] Discharge Disposition: Home or Self Care (Routine Discharge) Social History Tobacco Use Types Packs/Day Years Used Date Smoking Tobacco: Former Cigarettes Comments Unknown Sex and Gender Information Value Date Recorded Sex Assigned at Not on file Legal Sex Female 1:48 PM CDT Gender Identity Not on file Sexual Orientation Not on file documented as of this encounter Medications at Time of Discharge aspirin EC (ECOTRIN) 81 MG tablet Take 1 tablet (81 mg total) by mouth daily. clopidogrel (PLAVIX) 75 MG tablet Take 1 tablet (75 mg total) by mouth daily. leflunomide (ARAVA) 20 MG tablet Take 1 tablet (20 mg total) by mouth daily. losartan (COZAAR) 100 MG tablet Take 1 tablet (100 mg total) by mouth nightly at bedtime. metFORMIN ER (GLUCOPHAGE-XR) 500 MG 24 hr tablet Take 1 tablet (500 mg total) by mouth daily with supper. rosuvastatin (CRESTOR) 20 MG tablet Take 1 tablet (20 mg total) by mouth daily. amLODIPine (NORVASC) 5 MG tablet Take 1 tablet (5 mg total) by mouth nightly at bedtime. 03/09/2024 metoprolol succinate ER (TOPROL-XL) 50 MG 24 hr tablet Take 1 tablet (50 mg total) by mouth daily. 03/09/2024 documented as of this encounter Plan of Treatment Upcoming Encounters Date Type Department Care Team (Late st Contact Info) Description 01/17/2025 8:00 AM CDT Appointment [facility] [address] [place] [address] Judie Rowell MD [address] [place], [place] [phone] 01/20/2025 10:30 AM CDT Office Visit [facility] [address] [place] [address] Judie Rowell MD [address] [place], [place] [phone] documented as of this encounter Procedures Procedure Name Priority Date/Time Associated Diagnosis Comments ECG 12-LEAD Routine 01/18/2024 11:39 AM CDT Mitral valve disease documented in this encounter Results * ECG 12 lead (HOSPITAL PERFORMED ONLY) (01/18/2024 11:39 AM CDT) 01/18/2024 11:3 9 AM CDT Narrative [facility] RAD - 01/18/2024 6:52 PM CDT ? [facility] ?[address] [place] [place], [place] ??[address] ? Test Date: ?2024-01-18 Pat Name: ? SENIA RUTH ?Department: ?? 3 ? Room: ? Gender: ? Female ? Ultrasound Manager: ?? : ?1960 ? Requested By: JUDIE ROWELL Order Number: [id number] ? Reading MD: ?? Judie Rowell ? Measurements Intervals ?Mclean ? Rate: ? 63 ? P: ?49 ME: ? 159 ?QRS: ?24 QRSD: ? 82 ? T: ?69 QT: ? 400 ? QTc: ?411 ? Interpretive Statements SINUS RHYTHM POSSIBLE LEFT ATRIAL ENLARGEMENT ??[-0.1mV P WAVE IN V1/V2] Procedure Note Judie Rowell MD - 01/18/[address] [place] [address] Test Date: 2024-01-18 Pat Name: SENIA RUTH Department: 3 Room: Gender: Female Ultrasound Manager: : 1960 Requested By: JUDIE ROWELL Order Number: [id number] Reading MD: Judie Rowell Measurements Intervals Mclean Rate: 63 P: 49 ME: 159 QRS: 24 QRSD: 82 T: 69 QT: 400 QTc: 411 Interpretive Statements SINUS RHYTHM POSSIBLE LEFT ATRIAL ENLARGEMENT [-0.1mV P WAVE IN V1/V2] us Judie Rowell MD ECG ORDERABLES Final Result [facility] documented in this encounter Visit Diagnoses Diagnosis Mitral valve disease Other and unspecified mitral valve diseases documented in this encounter Care Teams Feed Weigher Relationship Specialty Start Date End Date William Craig MD [address] [place] [address] PCP - General INTERNAL MEDICINE 01/15/24 Judie Rowell MD [address] [place] [address] [employer] CARDIOVASCULAR DISEASE 01/15/24 documented as of this encounter
--- OUTSIDE RECORDS SUMMARY | 2024-06-28 21:39 | XMS_ITS | Encounter Summary ---
Author Organization [facility] Health Address [address] [place] [address] [place] [address] Care Team Providers Care Masonry Installer Name Role Phone Unavailable Primary Care Provider Unavailabl e Reason for Visit * Reason Comments Follow-up RA General needs standing order for random blood work Encounter Details Date Type Department Care Team (Late st Contact Info) Description 02/20/2010 10:15 AM CDT Office Visit [facility] - Rheumatology [address] [place] [id number] Edward Miranda MD [address] [place], [place] [id number] Rheumatoid Arthritis (HCC) (Primary Dx) Social History [...] Sign Reading Time Taken Comments Blood Pressure 118/74 02/20/2010 10:39 AM CDT Pulse 72 02/20/2010 10:39 AM CDT Temperature - - Respiratory Rate - - Oxygen Saturation - - Inhaled Oxygen Concentration - - Weight 60.3 kg (133 lb) 02/20/2010 10:39 AM CDT Height - - Body Mass Index 23.56 10/27/2008 10:24 AM CDT documented in this encounter Progress Notes * Deepali Castellon MA - 09/05/2010 3:57 PM CSTQuick Note: Sent lab letter to pt FACER * Edward Miranda MD - 09/05/2010 7:58 AM CSTQuick Note: mtx ok FACER * Migdalia Vitale MA - 02/28/2010 8:19 AM CDTQuick Note: Letter mailed to patient regarding lab results. * Edward Miranda MD - 02/26/2010 4:22 PM CDTQuick Note: mtx ok * Edward Miranda MD - 02/20/2010 11:14 AM CDT Subjective: Senia Ruth 49 y.o. female Chief Complaint Patient presents with ??? Follow-up RA ??? General needs standing order for random blood work Current outpatient prescriptions ordered prior to encounter Medication Sig Dispense Refill ??? NASONEX 50 MCG/ACT SUSP Momence 1 Momence into each nostril daily. Prn in the am ??? metoprolol (LOPRESSOR) 10 mg/ml Take by mouth daily. Patient Active Problem List Diagnoses Code ??? Rheumatoid Arthritis 714.0 ??? Back Pain 724.5E History Tobacco Use ??? Quit ??? Quit date: 10/27/2006 History Alcohol Use ??? Yes social History Drug Use No doing well no complaints Pain Level: 2/10 Am stiffness 5 min Global 2/10 Fatigue [...] No cyanosis, clubbing, edema OTHER: Objective: BP 118/74 Pulse 72 Wt 133 lb (60.328 kg) Tender Joint Count 0/28 Swollen Joint [...] Plan: Plan Orders Placed This Encounter ??? Methotrexate, anti-rheumatic, 2.5 mg tabs Sig: Take 10 mg by mouth every 7 days. Dispense: 16 Tab Refill: 12 Follow up in office in 4 mo * Deepali Castellon MA - 02/20/2010 10:40 AM CDT Chief Complaint Patient presents with ??? Follow-up RA ??? General needs standing order for random blood work BP 118/74 Pulse 72 Wt 133 lb (60.328 kg) documented in this encounter Plan of Treatment Not on file documented as of this encounter Procedures Procedure Name Priority Date/Time Associated Diagnosis Comments CBC W AUTO DIFFERENTIAL Routine 08/30/2010 2:36 PM RING FACER Rheumatoid arthritis (HCC) COMPREHENSIVE METABOLIC PANEL Routine 08/30/2010 2:36 PM RING FACER Rheumatoid arthritis (HCC) C-REACTIVE PROTEIN Routine 02/20/2010 11 :10 AM CDT Rheumatoid Arthritis (HCC) ERYTHROCYTE SEDIMENTATION RATE Routine 02/20/2010 11:10 AM CDT Rheumatoid Arthritis (HCC) CBC W AUTO DIFFERENTIAL Routine 02/20/2010 11:10 AM CDT Rheumatoid Arthritis (HCC) COMPREHENSIVE METABOLIC PANEL Routine 02/20/2010 11:10 AM CDT Rheumatoid Arthritis (HCC) documented in this encounter Results * COMPREHENSIVE METABOLIC PANEL (08/30/2010 2:36 PM RING FACER) Glucose 98 65 - 99 mg/dL [facility] INSURANCE BILL BUN 12 6 - 24 mg/dL [facility] INSURANCE BILL Creatinine 0.82 0.57 - 1.00 mg/dL [facility] INSURANCE BILL [...] may be found at www.kdoqi.org. BUN/Creatinine Ratio 15 9 - 23 [facility] INSURANCE BILL Sodium 139 135 - 145 mmol/L [facility] INSURANCE BILL Potassium 4.3 3.5 - 5.2 mmol/L [facility] INSURANCE BILL Chloride 103 97 - 108 mmol/L [facility] INSURANCE BILL CO2 25 20 - 32 mmol/L [facility] INSURANCE BILL Calcium 9.1 8.7 - 10.2 mg/dL [facility] INSURANCE BILL Protein Total 7.0 6.0 - 8.5 g/dL [facility] INSURANCE BILL Albumin 4.5 3.5 - 5.5 g/dL [facility] INSURANCE BILL Globulin Total 2.5 1.5 - 4.5 g/dL [facility] INSURANCE BILL Albumin/Globulin Ratio 1.8 1.1 - 2.5 [facility] INSURANCE BILL Bilirubin Total 0.3 0.0 - 1.2 mg/dL [facility] INSURANCE BILL Alkaline Phosphatase 52 25 - 150 IU/L [facility] INSURANCE BILL AST 18 0 - 40 IU/L [facility] INSURANCE BILL ALT 27 0 - 40 IU/L [facility] INSURANCE BILL BLOOD SPECIMEN / Unknown 08/30/2010 2:36 PM RING FACER 08/31/2010 3:37 AM RING FACER Narrative Resulting Agency Comment [facility] [address] ??[facility] [phone] Edward Miranda MD LAB - CHEMISTRY ORD ERABLES [facility] INSURANCE BILL * CBC W AUTO DIFFERENTIAL (08/30/2010 2:36 PM RING FACER) WBC 6.7 4.0 - 10.5 x10E3/uL [facility] INSURANCE BILL RBC 4.25 3.80 - 5.10 x10E6/uL [facility] INSURANCE BILL Hemoglobin 13.3 11.5 - 15.0 g/dL [facility] INSURANCE BILL Hematocrit 40.2 34.0 - 44.0 % [facility] INSURANCE BILL MCV 95 80 - 98 fL [facility] INSURANCE BILL MCH 31.3 27.0 - 34.0 pg [facility] INSURANCE BILL MCHC 33.1 32.0 - 36.0 g/dL [facility] INSURANCE BILL RDW 14.7 11.7 - 15.0 % [facility] INSURANCE BILL Platelet Count 301 140 - 415 x10E3/uL [facility] INSURANCE BILL Granulocytes % 57 40 - 74 % [facility] INSURANCE BILL Lymphocytes % 31 14 - 46 % [facility] INSURANCE BILL Monocytes % 8 4 - 13 % [facility] INSURANCE BILL Eosinophils % 3 0 - 7 % [facility] INSURANCE BILL Basophils % 1 0 - 3 % [facility] INSURANCE BILL Immature Cells NOT NEEDED [facility] INSURANCE BILL Comment:Ancillary determined the test is not needed Granulocytes Absolute 3.8 1.8 - 7.8 x10E3/uL [facility] INSURANCE BILL Lymphocytes Absolute 2.1 0.7 - 4.5 x10E3/uL [facility] INSURANCE BILL Monocytes Absolute 0.6 0.1 - 1.0 x10E3/uL [facility] INSURANCE BILL Eosinophils Absolute 0.2 0.0 - 0.4 x10E3/uL [facility] INSURANCE BILL Basophils Absolute 0.1 0.0 - 0.2 x10E3/uL [facility] INSURANCE BILL Immature Granulocytes 0 0 - 1 % [facility] INSURANCE BILL Immature Granulocytes Absolute 0.0 0.0 - 0.1 x10E3/uL [facility] INSURANCE BILL nRBC NOT NEEDED [facility] INSURANCE BILL Comment:Ancillary determined the test is not needed Comment Hematology NOT NEEDED [facility] INSURANCE BILL Comment: A hand-written panel/profile was received from your office. In accordance with the [facility] Ambiguous Test Code Policy dated January 2003, we have assigned CBC with Differential/Platelet, Test Code #616766 to this request. If this is not the testing you wished to receive on this specimen, please contact the [facility] Services Department to clarify the test order. We appreciate your business. Ancillary determined the test is not needed BLOOD SPECIMEN / Unknown 08/30/2010 2:36 PM RING FACER 08/31/2010 3:37 AM RING FACER Narrative Resulting Agency Comment [facility] ??[facility] [phone] Edward Miranda MD LAB - HEMATOLOGY OR DERABLES [facility] INSURANCE BILL * SED RATE WESTERGREN AUTO (02/20/2010 11:10 AM CDT) Erythrocyte Sedimentation Rate Westergren 4 0 - 20 mm/hr [facility] ACCOUNT BILL BLOOD SPECIMEN / Unknown 02/20/2010 11:10 AM CDT 02/20/2010 6:36 PM CDT Narrative Resulting Agency Comment [address] ??[facility] [phone] Edward Miranda MD LAB - HEMATOLOGY OR DERABLES [facility] ACCOUNT BILL * (ABNORMAL) COMPREHENSIVE METABOLIC PANEL (02/20/2010 11:10 AM CDT) Glucose 112(H) 65 - 99 mg/dL [facility] ACCOUNT BILL BUN 11 5 - 26 mg/dL [facility] ACCOUNT BILL Creatinine 0.82 0.57 - 1.00 mg/dL [facility] ACCOUNT BILL [...] BUN/Creatinine Ratio 13 8 - 27 [facility] ACCOUNT BILL Sodium 140 135 - 145 mmol/L [facility] ACCOUNT BILL Potassium 4.4 3.5 - 5.2 mmol/L [facility] ACCOUNT BILL Chloride 103 97 - 108 mmol/L [facility] ACCOUNT BILL CO2 24 20 - 32 mmol/L [facility] ACCOUNT BILL Calcium 9.1 8.7 - 10.2 mg/dL [facility] ACCOUNT BILL Protein Total 7.2 6.0 - 8.5 g/dL [facility] ACCOUNT BILL Albumin 4.5 3.5 - 5.5 g/dL [facility] ACCOUNT BILL Globulin Total 2.7 1.5 - 4.5 g/dL [facility] ACCOUNT BILL Albumin/Globulin Ratio 1.7 1.1 - 2.5 [facility] ACCOUNT BILL Bilirubin Total 0.3 0.0 - 1.2 mg/dL [facility] ACCOUNT BILL Alkaline Phosphatase 53 25 - 150 IU/L [facility] ACCOUNT BILL AST 23 0 - 40 IU/L [facility] ACCOUNT BILL ALT 25 0 - 40 IU/L [facility] ACCOUNT BILL BLOOD SPECIMEN / Unknown 02/20/2010 11:10 AM CDT 02/20/2010 6:36 PM CDT Narrative Resulting Agency Comment [facility] [address] ??[facility] [phone] Edward Miranda MD LAB - CHEMISTRY ORD ERABLES [facility] ACCOUNT BILL * C-REACTIVE PROTEIN (02/20/2010 11:10 AM CDT) C-Reactive Protein 2.4 0.0 - 4.9 mg/L [facility] ACCOUNT BILL BLOOD SPECIMEN / Unknown 02/20/2010 11:10 AM CDT 02/20/2010 6:36 PM CDT Narrative Resulting Agency Comment [facility] [place] [id number] ??[facility] [phone] Edward Miranda MD LAB - CHEMISTRY ORD ERABLES [facility] ACCOUNT BILL * CBC W AUTO DIFFERENTIAL (02/20/2010 11:10 AM CDT) WBC 4.7 4.0 - 10.5 x10E3/uL [facility] ACCOUNT BILL RBC 4.35 3.80 - 5.10 x10E6/uL [facility] ACCOUNT BILL Hemoglobin 13.5 11.5 - 15.0 g/dL [facility] ACCOUNT BILL Hematocrit 39.9 34.0 - 44.0 % [facility] ACCOUNT BILL MCV 92 80 - 98 fL [facility] ACCOUNT BILL MCH 31.0 27.0 - 34.0 pg [facility] ACCOUNT BILL MCHC 33.8 32.0 - 36.0 g/dL [facility] ACCOUNT BILL RDW 14.2 11.7 - 15.0 % [facility] ACCOUNT BILL Platelet Count 324 140 - 415 x10E3/uL [facility] ACCOUNT BILL Granulocytes % 57 40 - 74 % [facility] ACCOUNT BILL Lymphocytes % 30 14 - 46 % [facility] Monocytes % 9 4 - 13 % [facility] ACCOUNT BILL Eosinophils % 3 0 - 7 % [facility] ACCOUNT BILL Basophils % 1 0 - 3 % [facility] ACCOUNT BILL Immature Cells CANCELED [facility] ACCOUNT BILL Comment:Result canceled by marlon samaniego ancillary Granulocytes Absolute 2.7 1.8 - 7.8 x10E3/uL [facility] ACCOUNT BILL Lymphocytes Absolute 1.4 0.7 - 4.5 x10E3/uL [facility] ACCOUNT BILL Monocytes Absolute 0.4 0.1 - 1.0 x10E3/uL [facility] ACCOUNT BILL Eosinophils Absolute 0.2 0.0 - 0.4 x10E3/uL [facility] ACCOUNT BILL Basophils Absolute 0.1 0.0 - 0.2 x10E3/uL [facility] ACCOUNT BILL Immature Granulocytes 0 0 - 1 % [facility] ACCOUNT BILL Immature Granulocytes Absolute 0.0 0.0 - 0.1 x10E3/uL [facility] ACCOUNT BILL nRBC CANCELED [facility] ACCOUNT BILL Comment:Result canceled by marlon samaniego ancillary Comment Hematology CANCELED [facility] ACCOUNT BILL Comment:Result canceled by marlon samaniego ancillary BLOOD SPECIMEN / Unknown 02/20/2010 11:10 AM CDT 02/20/2010 6:36 PM CDT Narrative Resulting Agency Comment [facility] [place] [address] ??[facility] [phone] Edward Miranda MD LAB - HEMATOLOGY OR DERABLES [facility] ACCOUNT BILL documented in this encounter Visit Diagnoses Diagnosis Rheumatoid arthritis(714.0) (HCC)- Primary Rheumatoid arthritis documented in this encounter
--- OUTSIDE RECORDS SUMMARY | 2024-06-28 21:39 | XMS_ITS | Referral Summary ---
Author Organization [facility] Address [address] [place] [address] Care Team Providers Care Rigging Up Man Name Role Phone Edward Miranda MD Unavailable [phone] Source Comments [facility],non-owned Affiliates and Associated Physician Practices is amultiple site organization consisting of ambulatory clinics and hospital sitesin [place], [place], [place] and [place]. This disclosure is being madepursuant to the Care Everywhere program and may not contain all information available regarding this patient. Last updated 18.[facility] Allergies Active Allergy Reactions Criticality Noted Date Comments Lisinopril 10/27/2008 Cough Medications * Be aware that medications may not be up to date on this document. Alwaysverify current medications with the patient. Medication Sig Dispensed Refills Start Date End Date Status NASONEX 50 MCG/ACT SUSP [place] 1 [place] into each nostril daily. Prn in the [...] 10/27/2008 10:24 AM CDT Plan of Treatment Not on file Procedures Procedure Name Priority Date/Time Associated Diagnosis [...] PM CDT Narrative Resulting Agency Comment [facility] [address] ??[facility] [phone] Edward Miranda MD LAB - CHEMISTRY ORD ERABLES [facility] ACCOUNT BILL from Last 3 Months or Most Recently Relevant to Health Maintenance Care Teams Rigging Up Man Relationship Specialty Start Date End Date Edward Miranda MD Rheumatology 06/24/11
--- OUTSIDE RECORDS SUMMARY | 2024-06-28 21:39 | XMS_ITS | Encounter Summary ---
Author Organization [facility] Health Address [address] [place] [address] Care Team Providers Care Bus Starter Name Role Phone Unavailable Primary Care Provider Unavailabl e Reason for Visit * Reason Onset Date Comments MEDICATION REFILL 03/22/2009 Encounter Details Date Type Department Care Team (Late st Contact Info) Description 03/22/2009 Refill [facility] - Rheumatology [address] [place] [phone] Edward Miranda MD [address] [place] [address] MEDICATION REFILL Social History Tobacco Use Types [...]
--- OUTSIDE RECORDS SUMMARY | 2024-06-28 21:39 | XMS_ITS | Encounter Summary ---
Author Organization [facility] Address [address] [place] [address] [place] [address] Care Team Providers Care System Specialist Name Role Phone Unavailable Primary Care Provider Unavailabl e Reason for Visit * Reason Onset Date Comments Medication Request 01/01/2010 Encounter Details Date Type Department Care Team (Late st Contact Info) Description 12/27/2009 Telephone [facility] - Rheumatology [address] [place] [phone] Edward Miranda MD [address] [place] [address] Medication Request Social History Tobacco Use Types Packs/Day Years [...] as of this encounter Plan of Treatment Scheduled Orders Name Type Priority Associated Diagnoses Orde r Schedule CBC W AUTO DIFFERENTIAL Lab Routine Rheumatoid Arthritis (HCC) Ordered: 12/27/2009 documented as of this encounter Visit Diagnoses Diagnosis Rheumatoid arthritis(714.0) (HCC)- Primary Rheumatoid arthritis documented in this encounter
--- OUTSIDE RECORDS SUMMARY | 2024-06-28 21:39 | XMS_ITS | Encounter Summary ---
Author Organization [facility] Health Address [address] [place] [address] Care Team Providers Care Sound Person Name Role Phone Unavailable Primary Care Provider Unavailabl e Encounter Details Date Type Department Care Team (Late st Contact Info) Description 12/27/2009 Orders Only [facility] - Rheumatology [address] [place] [phone] Edward Miranda MD [address] [place] [address] [phone] Social History Tobacco Use Types Packs/Day Years [...] as of this encounter Progress Notes * Migdalia Vitale MA - 01/07/2010 2:46 PM CDTQuick Note: Letter mailed to patient regarding lab results. * Edward Miranda MD - 01/06/2010 7:06 AM CDTQuick Note: Mtx ok Bs 132 sl inc documented in this encounter Plan of Treatment Not on file documented as of this encounter Procedures Procedure Name Priority Date/Time Associated Diagnosis Comments CBC W AUTO DIFFERENTIAL 12/27/2009 3:52 PM CDT COMPREHENSIVE METABOLIC PANEL 12/27/2009 3:52 PM CDT documented in this encounter Results * (ABNORMAL) COMPREHENSIVE METABOLIC PANEL (12/27/2009 3:52 PM CDT) Glucose 132(H) 65 - 99 mg/dL [facility] INSURANCE BILL [...] 8 - 27 [facility] INSURANCE BILL Sodium 138 135 - 145 mmol/L [facility] INSURANCE BILL Potassium 4.1 3.5 - 5.2 mmol/L [facility] INSURANCE BILL Chloride 100 97 - 108 mmol/L [facility] INSURANCE BILL CO2 22 20 - 32 mmol/L [facility] INSURANCE BILL Calcium 9.0 8.7 - 10.2 mg/dL [facility] INSURANCE BILL Protein Total 6.8 6.0 - 8.5 g/dL [facility] INSURANCE BILL Albumin 4.5 3.5 - 5.5 g/dL [facility] INSURANCE BILL Globulin Total 2.3 1.5 - 4.5 g/dL [facility] INSURANCE BILL Albumin/Globulin Ratio 2.0 1.1 - 2.5 [facility] INSURANCE BILL Bilirubin Total 0.3 0.0 - 1.2 mg/dL [facility] INSURANCE BILL Alkaline Phosphatase 49 25 - 150 IU/L [facility] INSURANCE BILL AST 21 0 - 40 IU/L [facility] INSURANCE BILL ALT 21 0 - 40 IU/L [facility] INSURANCE BILL 12/27/2009 3:52 PM CDT 12/27/2009 10:04 PM CDT Narrative [facility] INSURANCE BILL - 12/28/2009 5:13 AM CDT A courtesy copy of this report has been sent to [phone]. Resulting Agency Comment [facility] [address] ??[facility] [phone] Edward Miranda MD LAB - CHEMISTRY ORD ERABLES [facility] INSURANCE BILL * CBC W AUTO DIFFERENTIAL (12/27/2009 3:52 PM CDT) WBC 4.9 4.0 - 10.5 x10E3/uL [facility] INSURANCE BILL RBC 4.16 3.80 - 5.10 x10E6/uL [facility] INSURANCE BILL Hemoglobin 12.6 11.5 - 15.0 g/dL [facility] INSURANCE BILL Hematocrit 37.4 34.0 - 44.0 % [facility] INSURANCE BILL MCV 90 80 - 98 fL [facility] INSURANCE BILL MCH 30.3 27.0 - 34.0 pg [facility] INSURANCE BILL MCHC 33.7 32.0 - 36.0 g/dL [facility] INSURANCE BILL RDW 14.4 11.7 - 15.0 % [facility] INSURANCE BILL Platelet Count 302 140 - 415 x10E3/uL [facility] INSURANCE BILL Granulocytes % 51 40 - 74 % [facility] INSURANCE BILL Lymphocytes % 37 14 - 46 % [facility] INSURANCE BILL Monocytes % 8 4 - 13 % [facility] INSURANCE BILL Eosinophils % 3 0 - 7 % [facility] INSURANCE BILL Basophils % 1 0 - 3 % [facility] INSURANCE BILL Immature Cells NOT AVAIL. [facility] INSURANCE BILL Granulocytes Absolute 2.5 1.8 - 7.8 x10E3/uL [facility] INSURANCE BILL Lymphocytes Absolute 1.8 0.7 - 4.5 x10E3/uL [facility] INSURANCE BILL Monocytes Absolute 0.4 0.1 - 1.0 x10E3/uL [facility] INSURANCE BILL Eosinophils Absolute 0.2 0.0 - 0.4 x10E3/uL [facility] INSURANCE BILL Basophils Absolute 0.1 0.0 - 0.2 x10E3/uL [facility] INSURANCE BILL Immature Granulocytes 0 0 - 1 % [facility] INSURANCE BILL Immature Granulocytes Absolute 0.0 0.0 - 0.1 x10E3/uL [facility] INSURANCE BILL nRBC NOT AVAIL. [facility] INSURANCE BILL Comment Hematology NOT AVAIL. [facility] INSURANCE BILL 12/27/2009 3:52 PM CDT 12/27/2009 10:04 PM CDT Narrative [facility] INSURANCE BILL - 12/28/2009 5:13 AM CDT A courtesy copy of this report has been sent to [phone]. Additional Result Information IMMATURE CELLS ([facility]): RESULT NOT AVAILABLE NRBC ([facility]): RESULT NOT AVAILABLE HEMATOLOGY COMMENTS: ??BLOOD,URINE ([facility]): RESULT NOT AVAILABLE Resulting Agency Comment [facility] [address] ??[facility] [phone] Edward Miranda MD LAB - HEMATOLOGY OR DERABLES [facility] INSURANCE BILL documented in this encounter Visit Diagnoses Not on filedocumented in this encounter
--- OUTSIDE RECORDS SUMMARY | 2024-06-28 21:39 | XMS_ITS | Encounter Summary ---
Author Organization [facility] Address [address] [place] [address] [place] [address] Care Team Providers Care Manager Warehouse Name Role Phone Unavailable Primary Care Provider Unavailabl e Reason for Visit * Reason Comments Follow-up 4 months for RA Encounter Details Date Type Department Care Team (Late st Contact Info) Description 10/27/2008 10:15 AM CDT Office Visit [facility] Medical [facility] - Rheumatology [address] [place] [id number] Edward Miranda MD [address] [place], [place] [id number] Rheumatoid Arthritis (HCC) (Primary Dx); Back Pain Social History Tobacco Use Types Packs/Day Years [...] Sign Reading Time Taken Comments Blood Pressure 128/60 10/27/2008 10:24 AM CDT Pulse 80 10/27/2008 10:24 AM CDT Temperature - - Respiratory Rate - - Oxygen Saturation - - Inhaled Oxygen Concentration - - Weight 62.1 kg (137 lb) 10/27/2008 10:24 AM CDT Height 160 cm (5' 3 ) 10/27/2008 10:24 AM CDT Body Mass Index 24.27 10/27/2008 10:24 AM CDT documented in this encounter Progress Notes * Niya Curry RN - 11/10/2008 2:59 PM CDTQuick Note: Notified patient labs are ok, same RX * Niya Curry RN - 10/30/2008 3:55 PM CDTQuick Note: Left message to call office re: lab results. * Edward Miranda MD - 10/29/2008 7:09 PM CDTQuick Note: Mtx ok except for lft up 1 point, will check next ov Same meds * Edward Miranda MD - 10/27/2008 11:02 AM CDT Subjective: Senia Ruth 47 y.o. female Chief Complaint Patient presents with ??? Follow-up 4 months for RA doing well, occ back pain or weather related ache Current outpatient prescriptions prior to encounter Medication Sig Dispense Refill ??? Methotrexate (Anti-Rheumatic) 2.5 MG TABS Take 4 Tabs by mouth every 7 days. Patient Active Problem List Diagnoses Code ??? Rheumatoid Arthritis 714.0 ??? Back Pain 724.5E History Tobacco Use ??? Quit ??? Quit date: 10/27/2006 History Alcohol Use ??? Yes social History Drug Use No Pain Level: 1/10 Am stiffness 5 min Global 0/10 Fatigue yes Medication Side Effects no Review of Systems: GENERAL: No fever, chills, [...] No cyanosis, clubbing, edema OTHER: Objective: BP 128/60 Pulse 80 Ht 1.6 m (5' 3 ) Wt 62.143 kg (137 lb) Tender Joint Count 0 Swollen Joint Count 0 Muscles: Weak or Tender 0 Rheumatoid Nodules: [...] Code Name Primary? 714.0 Rheumatoid Arthritis Yes ??? 724.5E Back Pain Plan: Plan Orders Placed This Encounter ??? Cbc w auto differential ??? Comprehensive metabolic panel ??? C-reactive protein ??? Sed rate westergren auto ??? Nasonex 50 mcg/act na susp ??? Metoprolol tartrate 10 mg/ml po cmpd susp Follow up in office in 4 months * Deepali Castellon MA - 10/27/2008 10:29 AM CDT Senia Ruth 47 y.o. female Chief Complaint Patient presents with ??? Follow-up 4 months for RA BP 128/60 Pulse 80 Wt 62.143 kg (137 lb) documented in this encounter Plan of Treatment Not on file documented as of this encounter Procedures Procedure Name Priority Date/Time Associated Diagnosis Comments C-REACTIVE PROTEIN Routine 10/27/2008 11 :10 AM CDT Rheumatoid Arthritis (HCC) ERYTHROCYTE SEDIMENTATION RATE Routine 10/27/2008 11:10 AM CDT Rheumatoid Arthritis (HCC) CBC W AUTO DIFFERENTIAL Routine 10/27/2008 11:10 AM CDT Rheumatoid Arthritis (HCC) COMPREHENSIVE METABOLIC PANEL Routine 10/27/2008 11:10 AM CDT Rheumatoid Arthritis (HCC) documented in this encounter Results * SED RATE WESTERGREN AUTO (10/27/2008 11:10 AM CDT) Erythrocyte Sedimentation Rate Westergren 6 0 - 20 mm/hr [facility] ACCOUNT BILL BLOOD SPECIMEN / Unknown 10/27/2008 11:10 AM CDT 10/27/2008 6:12 PM CDT Narrative Resulting Agency Comment [facility] ??[facility] [phone] Edward Miranda MD LAB - HEMATOLOGY OR DERABLES Performing Organization Address City/[facility]/ZIP Co de Phone Number [facility] ACCOUNT BILL * C-REACTIVE PROTEIN (10/27/2008 11:10 AM CDT) C-Reactive Protein 1.8 0.0 - 4.9 mg/L [facility] ACCOUNT BILL BLOOD SPECIMEN / Unknown 10/27/2008 11:10 AM CDT 10/27/2008 6:12 PM CDT Narrative Resulting Agency Comment [facility] [id number] ??[facility] [phone] Edward Miranda MD LAB - CHEMISTRY ORD ERABLES Performing Organization Address City/[facility]/ZIP Co de Phone Number [facility] ACCOUNT BILL * (ABNORMAL) COMPREHENSIVE METABOLIC PANEL (10/27/2008 11:10 AM CDT) Glucose 110(H) 65 - 99 mg/dL [facility] ACCOUNT BILL BUN 14 5 - 26 mg/dL [facility] ACCOUNT BILL Creatinine 0.79 0.57 - 1.00 mg/dL [facility] ACCOUNT BILL [...] BUN/Creatinine Ratio 18 8 - 27 [facility] ACCOUNT BILL Sodium 139 135 - 145 mmol/L [facility] ACCOUNT BILL Potassium 4.2 3.5 - 5.2 mmol/L [facility] ACCOUNT BILL Chloride 104 97 - 108 mmol/L [facility] ACCOUNT BILL CO2 22 20 - 32 mmol/L [facility] ACCOUNT BILL Calcium 9.3 8.5 - 10.6 mg/dL [facility] ACCOUNT BILL Protein Total 7.2 6.0 - 8.5 g/dL [facility] ACCOUNT BILL Albumin 4.5 3.5 - 5.5 g/dL [facility] ACCOUNT BILL Globulin Total 2.7 1.5 - 4.5 g/dL [facility] ACCOUNT BILL Albumin/Globulin Ratio 1.7 1.1 - 2.5 [facility] ACCOUNT BILL Bilirubin Total 0.4 0.1 - 1.2 mg/dL [facility] ACCOUNT BILL Alkaline Phosphatase 46 25 - 150 IU/L [facility] ACCOUNT BILL AST 24 0 - 40 IU/L [facility] ACCOUNT BILL ALT 41(H) 0 - 40 IU/L [facility] ACCOUNT BILL BLOOD SPECIMEN / Unknown 10/27/2008 11:10 AM CDT 10/27/2008 6:12 PM CDT Narrative Resulting Agency Comment [facility] [address] ??[facility] [phone] Edward Miranda MD LAB - CHEMISTRY ORD ERABLES [facility] ACCOUNT BILL * (ABNORMAL) CBC W AUTO DIFFERENTIAL (10/27/2008 11:10 AM CDT) WBC 5.7 4.0 - 10.5 x10E3/uL [facility] ACCOUNT BILL RBC 4.25 3.80 - 5.10 x10E6/uL [facility] ACCOUNT BILL Hemoglobin 13.2 11.5 - 15.0 g/dL [facility] ACCOUNT BILL Hematocrit 39.2 34.0 - 44.0 % [facility] ACCOUNT BILL MCV 92 80 - 98 fL [facility] ACCOUNT BILL MCH 31.0 27.0 - 34.0 pg [facility] ACCOUNT BILL MCHC 33.7 32.0 - 36.0 g/dL [facility] ACCOUNT BILL RDW 15.2(H) 11.7 - 15.0 % [facility] ACCOUNT BILL Platelet Count 276 140 - 415 x10E3/uL [facility] ACCOUNT BILL Granulocytes % 65 40 - 74 % [facility] ACCOUNT BILL Lymphocytes % 26 14 - 46 % [facility] ACCOUNT BILL Monocytes % 6 4 - 13 % [facility] ACCOUNT BILL Eosinophils % 2 0 - 7 % [facility] ACCOUNT BILL Basophils % 1 0 - 3 % [facility] ACCOUNT BILL Granulocytes Absolute 3.7 1.8 - 7.8 x10E3/uL [facility] ACCOUNT BILL Lymphocytes Absolute 1.5 0.7 - 4.5 x10E3/uL [facility] ACCOUNT BILL Monocytes Absolute 0.3 0.1 - 1.0 x10E3/uL [facility] ACCOUNT BILL Eosinophils Absolute 0.1 0.0 - 0.4 x10E3/uL [facility] ACCOUNT BILL Basophils Absolute 0.1 0.0 - 0.2 x10E3/uL [facility] ACCOUNT BILL Comment Hematology NOT AVAIL. [facility] ACCOUNT BILL BLOOD SPECIMEN / Unknown 10/27/2008 11:10 AM CDT 10/27/2008 6:12 PM CDT Narrative [facility] ACCOUNT BILL - 10/28/2008 9:21 AM CDT Additional Result Information HEMATOLOGY COMMENTS: ??BLOOD,URINE ([facility]): RESULT NOT AVAILABLE Resulting Agency Comment [facility] [address] ??[facility] [phone] Edward Miranda MD LAB - HEMATOLOGY OR DERABLES [facility] ACCOUNT BILL documented in this encounter Visit Diagnoses Diagnosis Rheumatoid arthritis(714.0) ([facility])- Primary Rheumatoid arthritis Back pain Backache, unspecified documented in this encounter
--- OUTSIDE RECORDS SUMMARY | 2024-06-28 21:39 | XMS_ITS | Encounter Summary ---
Author Organization [facility] Health Address [address] [place] [address] [place] [address] Care Team Providers Care Assistant Front Office Manager Name Role Phone Unavailable Primary Care Provider Unavailabl e Reason for Visit * Reason Comments Rheumatoid Arthritis follow up Encounter Details Date Type Department Care Team (Late st Contact Info) Description 02/28/2009 10:15 AM CDT Office Visit [facility] - Rheumatology [address] [place] [id number] Edward Miranda MD [address] [place] [address] Rheumatoid Arthritis (HCC) (Primary Dx) Social History [...] Sign Reading Time Taken Comments Blood Pressure 124/72 02/28/2009 10:52 AM CDT Pulse 72 02/28/2009 10:52 AM CDT Temperature - - Respiratory Rate - - Oxygen Saturation - - Inhaled Oxygen Concentration - - Weight 60.8 kg (134 lb) 02/28/2009 10:52 AM CDT Height - - Body Mass Index 23.74 10/27/2008 10:24 AM CDT documented in this encounter Progress Notes * Deepali Castellon MA - 03/09/2009 2:08 PM CDTQuick Note: Sent letter * Edward Miranda MD - 03/07/2009 10:35 AM CDTQuick Note: Mtx ok * Edward Miranda MD - 02/28/2009 11:08 AM CDT Subjective: Senia Ruth 48 y.o. female Chief Complaint Patient presents with ??? Rheumatoid Arthritis follow up Current outpatient prescriptions prior to encounter Medication Sig Dispense Refill ??? NASONEX 50 MCG/ACT SUSP [place] 1 [place] into each nostril daily. Prn in the am ??? metoprolol (LOPRESSOR) 10 mg/ml Take by mouth daily. Patient Active Problem List Diagnoses Code ??? Rheumatoid Arthritis 714.0 ??? Back Pain 724.5E History Tobacco Use ??? Quit ??? Quit date: 10/27/2006 History Alcohol Use ??? Yes social History Drug Use No doing well having a good summer , acute back pain last mo went to chiropractor then manager functional ct for stones neg then stress test which was nl Pain Level: 07/22 Am stiffness 0 Global 07/22 Fatigue y Medication Side Effects n Review [...] No cyanosis, clubbing, edema OTHER: Objective: BP 124/72 Pulse 72 Wt 60.782 kg (134 lb) Tender Joint Count 0 Swollen Joint [...] protein ??? Sed rate westergren auto ??? Methotrexate (anti-rheumatic) 2.5 mg po tabs Follow up in office in 4 months labs * Tierra Braxton MA - 02/28/2009 10:53 AM CDT Senia Ruth is a 48 y.o. female BP 124/72 Pulse 72 Wt 60.782 kg (134 lb) Chief Complaint Patient presents with ??? Rheumatoid Arthritis follow up documented in this encounter Plan of Treatment Not on file documented as of this encounter Procedures Procedure Name Priority Date/Time Associated Diagnosis Comments C-REACTIVE PROTEIN Routine 02/28/2009 10 :59 AM CDT Rheumatoid Arthritis (HCC) ERYTHROCYTE SEDIMENTATION RATE Routine 02/28/2009 10:59 AM CDT Rheumatoid Arthritis (HCC) CBC W AUTO DIFFERENTIAL Routine 02/28/2009 10:59 AM CDT Rheumatoid Arthritis (HCC) COMPREHENSIVE METABOLIC PANEL Routine 02/28/2009 10:59 AM CDT Rheumatoid Arthritis (HCC) documented in this encounter Results * SED RATE WESTERGREN AUTO (02/28/2009 10:59 AM CDT) Erythrocyte Sedimentation Rate Westergren 5 0 - 20 mm/hr [facility] ACCOUNT BILL BLOOD SPECIMEN / Unknown 02/28/2009 10:59 AM CDT 02/28/2009 6:05 PM CDT Narrative Resulting Agency Comment [facility] [address] ??[facility] [phone] Edward Miranda MD LAB - HEMATOLOGY OR DERABLES Performing Organization Address City/[facility]/ZIP Co de Phone Number [facility] ACCOUNT BILL * C-REACTIVE PROTEIN (02/28/2009 10:59 AM CDT) C-Reactive Protein 1.6 0.0 - 4.9 mg/L [facility] ACCOUNT BILL BLOOD SPECIMEN / Unknown 02/28/2009 10:59 AM CDT 02/28/2009 6:05 PM CDT Narrative Resulting Agency Comment [facility] [address] ??[facility] [phone] Edward Miranda MD LAB - CHEMISTRY ORD ERABLES Performing Organization Address [facility] Co de Phone Number [facility] ACCOUNT BILL * (ABNORMAL) COMPREHENSIVE METABOLIC PANEL (02/28/2009 10:59 AM CDT) Glucose 115(H) 65 - 99 mg/dL [facility] ACCOUNT BILL BUN 11 5 - 26 mg/dL [facility] ACCOUNT BILL Creatinine 0.88 0.57 - 1.00 mg/dL [facility] ACCOUNT BILL [...] - 5.2 mmol/L [facility] ACCOUNT BILL Chloride 102 97 - 108 mmol/L [facility] ACCOUNT BILL CO2 24 20 - 32 mmol/L [facility] ACCOUNT BILL Calcium 9.7 8.5 - 10.6 mg/dL [facility] ACCOUNT BILL Protein Total 7.3 6.0 - 8.5 g/dL [facility] ACCOUNT BILL Albumin 4.5 3.5 - 5.5 g/dL [facility] ACCOUNT BILL Globulin Total 2.8 1.5 - 4.5 g/dL [facility] ACCOUNT BILL Albumin/Globulin Ratio 1.6 1.1 - 2.5 [facility] ACCOUNT BILL Bilirubin Total 0.3 0.1 - 1.2 mg/dL [facility] ACCOUNT BILL Alkaline Phosphatase 51 25 - 150 IU/L [facility] ACCOUNT BILL AST 18 0 - 40 IU/L [facility] ACCOUNT BILL ALT 21 0 - 40 IU/L [facility] ACCOUNT BILL BLOOD SPECIMEN / Unknown 02/28/2009 10:59 AM CDT 02/28/2009 6:05 PM CDT Narrative Resulting Agency Comment [facility] [address] ??[facility] [phone] Edward Miranda MD LAB - CHEMISTRY ORD ERABLES [facility] ACCOUNT BILL * CBC W AUTO DIFFERENTIAL (02/28/2009 10:59 AM CDT) WBC 4.8 4.0 - 10.5 x10E3/uL [facility] ACCOUNT BILL RBC 4.33 3.80 - 5.10 x10E6/uL [facility] ACCOUNT BILL Hemoglobin 13.5 11.5 - 15.0 g/dL [facility] ACCOUNT BILL Hematocrit 40.8 34.0 - 44.0 % [facility] ACCOUNT BILL MCV 94 80 - 98 fL [facility] ACCOUNT BILL MCH 31.2 27.0 - 34.0 pg [facility] ACCOUNT BILL MCHC 33.0 32.0 - 36.0 g/dL [facility] ACCOUNT BILL RDW 14.3 11.7 - 15.0 % [facility] ACCOUNT BILL Platelet Count 274 140 - 415 x10E3/uL [facility] ACCOUNT BILL Granulocytes % 61 40 - 74 % [facility] ACCOUNT BILL Lymphocytes % 27 14 - 46 % [facility] ACCOUNT BILL Monocytes % 9 4 - 13 % [facility] ACCOUNT BILL Eosinophils % 2 0 - 7 % [facility] ACCOUNT BILL Basophils % 1 0 - 3 % [facility] ACCOUNT BILL Granulocytes Absolute 2.9 1.8 - 7.8 x10E3/uL [facility] ACCOUNT BILL Lymphocytes Absolute 1.3 0.7 - 4.5 x10E3/uL [facility] ACCOUNT BILL Monocytes Absolute 0.4 0.1 - 1.0 x10E3/uL [facility] ACCOUNT BILL Eosinophils Absolute 0.1 0.0 - 0.4 x10E3/uL [facility] ACCOUNT BILL Basophils Absolute 0.0 0.0 - 0.2 x10E3/uL [facility] ACCOUNT BILL Comment Hematology NOT AVAIL. [facility] ACCOUNT BILL BLOOD SPECIMEN / Unknown 02/28/2009 10:59 AM CDT 02/28/2009 6:05 PM CDT Narrative [facility] ACCOUNT BILL - 03/01/2009 8:24 AM CDT Additional Result Information HEMATOLOGY COMMENTS: ??BLOOD,URINE ([facility]): RESULT NOT AVAILABLE Resulting Agency Comment [facility] [address] ??[facility] [phone] Edward Miranda MD LAB - HEMATOLOGY OR DERABLES [facility] ACCOUNT BILL documented in this encounter Visit Diagnoses Diagnosis Rheumatoid arthritis(714.0) (HCC)- Primary Rheumatoid arthritis documented in this encounter
--- OUTSIDE RECORDS SUMMARY | 2024-06-28 21:39 | XMS_ITS | Encounter Summary ---
Author Organization [facility] Address [address] [place] [address] [place] [address] Care Team Providers Care Electrical Prospecting Supervisor Name Role Phone Unavailable Primary Care Provider Unavailabl e Reason for Visit * Reason Comments Follow-up Ra Encounter Details Date Type Department Care Team (Late st Contact Info) Description 06/19/2010 10:15 AM FLUE GAS ANALYST Office Visit [facility] Medical [facility] - Rheumatology [address] [place] [phone] Edward Miranda MD [address] [place] [address] Rheumatoid arthritis (HCC) (Primary Dx) Social History [...] Sign Reading Time Taken Comments Blood Pressure 140/96 06/19/2010 10:45 AM FLUE GAS ANALYST Pulse 76 06/19/2010 10:45 AM FLUE GAS ANALYST Temperature - - Respiratory Rate - - Oxygen Saturation - - Inhaled Oxygen Concentration - - Weight 60.8 kg (134 lb) 06/19/2010 10:45 AM FLUE GAS ANALYST Height - - Body Mass Index 23.74 10/27/2008 10:24 AM CDT documented in this encounter Progress Notes * Migdalia Vitale MA - 06/26/2010 3:13 PM CSTQuick Note: Letter mailed to patient regarding lab results. GAS ANALYST * Edward Miranda MD - 06/23/2010 10:08 PM CSTQuick Note: mtx ok GAS ANALYST * Edward Miranda MD - 06/19/2010 11:15 AM CST Subjective: Senia Ruth 49 y.o. female Chief Complaint Patient presents with ??? Follow-up Ra Current outpatient prescriptions ordered prior to encounter Medication Sig Dispense Refill ??? Methotrexate, Anti-Rheumatic, 2.5 MG TABS Take 10 mg by mouth every 7 days. 16 Tab 12 ??? NASONEX 50 MCG/ACT SUSP [place] 1 [place] into each nostril daily. Prn in the am ??? metoprolol (LOPRESSOR) 10 mg/ml Take by mouth daily. Patient Active Problem List Diagnoses Code ??? Rheumatoid Arthritis 714.0 ??? Back Pain 724.5E History Tobacco Use ??? Quit ??? Quit date: 10/27/2006 History Alcohol Use ??? Yes social History Drug Use No her arthitis is doing well with usual aches and pains Pain Level: 07/22 Am stiffness 5 min Global 07/22 Fatigue y Medication Side Effects [...] No cyanosis, clubbing, edema OTHER: Objective: BP 140/96 Pulse 76 Wt 134 lb (60.782 kg) Tender Joint Count 0/28 Swollen Joint Count 0/28 Muscles: Weak or Tender 0 Rheumatoid Nodules: 0 Physical Exam: bp 134/84 HEENT perrla, hearing and vision intact, throat clear NECK- supple, no bruits LUNGS- clear, no rales , rhonchi or wheezes HEART- Normal Sinus Rhythm, no S3, S4 or murmurs ABDOMEN- soft, no masses or tenderness, no organomegaly EXTREMITIES- no edema CIRCULATION- Intact SKIN- no rash Assessment: Encounter Diagnoses Code Name Primary? 714.0 Rheumatoid arthritis Yes Plan: Plan Orders Placed This Encounter ??? Cbc w auto differential ??? Comprehensive metabolic panel ??? C-reactive protein ??? Sed rate westergren auto Same meds Follow up in office in 4 mo GAS ANALYST * Deepali Castellon MA - 06/19/2010 10:46 AM CST Chief Complaint Patient presents with ??? Follow-up Ra BP 140/96 Pulse 76 Wt 134 lb (60.782 kg) GAS ANALYST documented in this encounter Plan of Treatment Not on file documented as of this encounter Procedures Procedure Name Priority Date/Time Associated Diagnosis Comments C-REACTIVE PROTEIN Routine 06/19/2010 11 :08 AM FLUE GAS ANALYST Rheumatoid arthritis (HCC) ERYTHROCYTE SEDIMENTATION RATE Routine 06/19/2010 11:08 AM FLUE GAS ANALYST Rheumatoid arthritis (HCC) CBC W AUTO DIFFERENTIAL Routine 06/19/2010 11:07 AM FLUE GAS ANALYST Rheumatoid arthritis (HCC) COMPREHENSIVE METABOLIC PANEL Routine 06/19/2010 11:07 AM FLUE GAS ANALYST Rheumatoid arthritis (HCC) documented in this encounter Results * SED RATE WESTERGREN AUTO (06/19/2010 11:08 AM FLUE GAS ANALYST) Erythrocyte Sedimentation Rate Westergren 5 0 - 20 mm/hr [facility] ACCOUNT BILL BLOOD SPECIMEN / Unknown 06/19/2010 11:08 AM FLUE GAS ANALYST 06/19/2010 5:12 PM FLUE GAS ANALYST Narrative Resulting Agency Comment [facility] [address] ??[facility] [phone] Edward Miranda MD LAB - HEMATOLOGY OR DERABLES [facility] ACCOUNT BILL * C-REACTIVE PROTEIN (06/19/2010 11:08 AM FLUE GAS ANALYST) C-Reactive Protein 2.7 0.0 - 4.9 mg/L [facility] ACCOUNT BILL BLOOD SPECIMEN / Unknown 06/19/2010 11:08 AM FLUE GAS ANALYST 06/19/2010 5:12 PM FLUE GAS ANALYST Narrative Resulting Agency Comment [facility] [address] ??[facility] [phone] Edward Miranda MD LAB - CHEMISTRY ORD ERABLES [facility] ACCOUNT BILL * (ABNORMAL) COMPREHENSIVE METABOLIC PANEL (06/19/2010 11:07 AM FLUE GAS ANALYST) Glucose 122(H) 65 - 99 mg/dL [facility] ACCOUNT BILL BUN 9 5 - 26 mg/dL [facility] ACCOUNT BILL [...] may be found at [email or web address]. BUN/Creatinine Ratio 10 8 - 27 [facility] ACCOUNT BILL Sodium 141 135 - 145 mmol/L [facility] ACCOUNT BILL Potassium 4.1 3.5 - 5.2 mmol/L [facility] ACCOUNT BILL Chloride 104 97 - 108 mmol/L [facility] ACCOUNT BILL CO2 24 20 - 32 mmol/L [facility] ACCOUNT BILL Calcium 9.1 8.7 - 10.2 mg/dL [facility] ACCOUNT BILL Protein Total 6.9 6.0 - 8.5 g/dL [facility] ACCOUNT BILL Albumin 4.5 3.5 - 5.5 g/dL [facility] ACCOUNT BILL Globulin Total 2.4 1.5 - 4.5 g/dL [facility] ACCOUNT BILL Albumin/Globulin Ratio 1.9 1.1 - 2.5 [facility] ACCOUNT BILL Bilirubin Total 0.2 0.0 - 1.2 mg/dL [facility] ACCOUNT BILL Alkaline Phosphatase 51 25 - 150 IU/L [facility] ACCOUNT BILL AST 24 0 - 40 IU/L [facility] ACCOUNT BILL ALT 27 0 - 40 IU/L [facility] ACCOUNT BILL BLOOD SPECIMEN / Unknown 06/19/2010 11:07 AM FLUE GAS ANALYST 06/19/2010 4:37 PM FLUE GAS ANALYST Narrative Resulting Agency Comment [facility] [address] ??[facility] [phone] Edward Miranda MD LAB - CHEMISTRY ORD ERABLES [facility] ACCOUNT BILL * CBC W AUTO DIFFERENTIAL (06/19/2010 11:07 AM FLUE GAS ANALYST) WBC 5.3 4.0 - 10.5 x10E3/uL [facility] ACCOUNT BILL RBC 4.38 3.80 - 5.10 x10E6/uL [facility] ACCOUNT BILL Hemoglobin 13.5 11.5 - 15.0 g/dL [facility] ACCOUNT BILL Hematocrit 41.8 34.0 - 44.0 % [facility] ACCOUNT BILL MCV 95 80 - 98 fL [facility] ACCOUNT BILL MCH 30.8 27.0 - 34.0 pg [facility] ACCOUNT BILL MCHC 32.3 32.0 - 36.0 g/dL [facility] ACCOUNT BILL RDW 14.6 11.7 - 15.0 % [facility] ACCOUNT BILL Platelet Count 318 140 - 415 x10E3/uL [facility] ACCOUNT BILL Granulocytes % 66 40 - 74 % [facility] ACCOUNT BILL Lymphocytes % 22 14 - 46 % [facility] Monocytes % 9 4 - 13 % [facility] ACCOUNT BILL Eosinophils % 2 0 - 7 % [facility] ACCOUNT BILL Basophils % 1 0 - 3 % [facility] ACCOUNT BILL Immature Cells CANCELED [facility] ACCOUNT BILL Comment:Result canceled by marlon samaniego ancillary Granulocytes Absolute 3.4 1.8 - 7.8 x10E3/uL [facility] ACCOUNT BILL [...] CANCELED [facility] ACCOUNT BILL Comment:Result canceled by t he ancillary Comment Hematology CANCELED [facility] ACCOUNT BILL Comment:Result canceled by t he ancillary BLOOD SPECIMEN / Unknown 06/19/2010 11:07 AM FLUE GAS ANALYST 06/19/2010 4:37 PM FLUE GAS ANALYST Narrative Resulting Agency Comment [facility] [address] ??[facility] [phone] Edward Miranda MD LAB - HEMATOLOGY OR DERABLES [facility] ACCOUNT BILL documented in this encounter Visit Diagnoses Diagnosis Rheumatoid arthritis(714.0) ([facility])- Primary Rheumatoid arthritis documented in this encounter
--- OUTSIDE RECORDS SUMMARY | 2024-06-28 21:39 | XMS_ITS | Encounter Summary ---
Author Organization [facility] Address [address] [facility] [place] [address] Care Team Providers Care Civil Preparedness Officer Name Role Phone Edward Miranda MD Unavailable [phone] Reason for Visit * Reason Comments Rheumatoid Arthritis Encounter Details Date Type Department Care Team (Late st Contact Info) Description 10/29/2011 10:15 AM CDT Office Visit [facility] - Rheumatology [address] [place] [address] [id number] Edward Miranda MD [address] [place] [id number] Rheumatoid arthritis (HCC) (Primary Dx) Social [...] Sign Reading Time Taken Comments Blood Pressure 130/84 10/29/2011 10:19 AM CDT Pulse 76 10/29/2011 10:19 AM CDT Temperature - - Respiratory Rate - - Oxygen Saturation - - Inhaled Oxygen Concentration - - Weight 63.4 kg (139 lb 12.8 oz) 012 10:19 AM CDT Height - - Body Mass Index 24.76 10/27/2008 10:24 AM CDT documented in this encounter Progress Notes * Edward Miranda MD - 11/11/2011 10:13 PM CDTQuick Note: mtx ok * Edward Miranda MD - 10/29/2011 10:37 AM CDT Subjective: Senia Ruth 50 y.o. female Chief Complaint Patient presents with ??? Rheumatoid Arthritis Current Outpatient Prescriptions on File Prior to Visit Medication Sig Dispense Refill ??? methotrexate (RHEUMATREX) 2.5 MG tablet Take 4 Tabs by mouth every 7 days. 16 Tab 5 ??? NASONEX 50 MCG/ACT SUSP Roxana 1 Roxana into each nostril daily. Prn in the am ??? metoprolol (LOPRESSOR) 10 mg/ml Take by mouth daily. Patient Active Problem List Diagnoses ??? Rheumatoid Arthritis ??? Back Pain ??? Screening cholesterol level ??? HTN (hypertension) ??? Hyperlipidemia History Smoking status ??? Former Smoker ??? Quit date: 10/27/2006 Smokeless tobacco ??? Not on file History Alcohol Use ??? 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 CBC W AUTO DIFFERENTIAL Standing order draw every 2 months ??? COMPREHENSIVE METABOLIC PANEL Standing order draw every 2 months ??? SED RATE WESTERGREN Standing orders draw every 2 months See retail gift card merchandising Follow up in office in 4 mo Same meds for ra stable * Migdalia Vitale MA - 10/29/2011 10:20 AM CDT Chief Complaint Patient presents with ??? Rheumatoid Arthritis BP 130/84 Pulse 76 Wt 139 lb 12.8 oz (63.413 kg) documented in this encounter Plan of Treatment Not on file documented as of this encounter Procedures Procedure Name Priority Date/Time Associated Diagnosis Comments ERYTHROCYTE SEDIMENTATION RATE Routine 10/29/2011 10:51 AM CDT Rheumatoid arthritis (HCC) CBC W AUTO DIFFERENTIAL Routine 10/29/2011 10:51 AM CDT Rheumatoid arthritis (HCC) COMPREHENSIVE METABOLIC PANEL Routine 10/29/2011 10:51 AM CDT Rheumatoid arthritis (HCC) documented in this encounter Results * SED RATE WESTERGREN (10/29/2011 10:51 AM CDT) Erythrocyte Sedimentation Rate Westergren 6 0 - 40 mm/hr [facility] ACCOUNT BILL Blood specimen (specimen) BLOOD SPECIMEN / Unknown 10/29/2011 10:51 AM CDT 10/29/2011 6:08 PM CDT Narrative Resulting Agency Comment [facility] [place] [id number] [facility] [phone] Edward Miranda MD LAB - HEMATOLOGY OR DERABLES [facility] ACCOUNT BILL * (ABNORMAL) COMPREHENSIVE METABOLIC PANEL (10/29/2011 10:51 AM CDT) Glucose 111(H) 65 - 99 mg/dL [facility] ACCOUNT BILL BUN 12 6 - 24 mg/dL [facility] ACCOUNT BILL Creatinine 0.80 0.57 - 1.00 mg/dL [facility] ACCOUNT BILL eGFR by MDRD 86 >59 mL/min/1.7 3 [facility] ACCOUNT BILL eGFR by MDRD 99 >59 mL/min/1.7 3 [facility] ACCOUNT BILL Comment: Note: A persistent eGFR <60 mL/min/1.73 m2 (3 months or more) may indicate chronic kidney disease. An eGFR >59 mL/min/1.73 m2 with an elevated urine protein also may indicate chronic kidney disease. Calculated using CKD-EPI formula. BUN/Creatinine Ratio 15 9 - 23 [facility] ACCOUNT BILL Sodium 138 134 - 144 mmol/L [facility] ACCOUNT BILL Potassium 4.5 3.5 - 5.2 mmol/L [facility] ACCOUNT BILL Chloride 101 97 - 108 mmol/L [facility] ACCOUNT BILL CO2 21 20 - 32 mmol/L [facility] ACCOUNT BILL Calcium 9.3 8.7 - 10.2 mg/dL [facility] ACCOUNT BILL [...] - 40 IU/L [facility] ACCOUNT BILL ALT 22 0 - 40 IU/L [facility] ACCOUNT BILL Blood specimen (specimen) BLOOD SPECIMEN / Unknown 10/29/2011 10:51 AM CDT 10/29/2011 6:08 PM CDT Narrative Resulting Agency Comment [facility] [address] ??[facility] [id number] Edward Miranda MD LAB - CHEMISTRY ORD ERABLES [facility] ACCOUNT BILL * CBC W AUTO DIFFERENTIAL (10/29/2011 10:51 AM CDT) WBC 5.5 4.0 - 10.5 x10E3/uL [facility] ACCOUNT BILL RBC 4.69 3.80 - 5.10 x10E6/uL [facility] ACCOUNT BILL Hemoglobin 13.9 11.5 - 15.0 g/dL [facility] ACCOUNT BILL Hematocrit 43.4 34.0 - 44.0 % [facility] ACCOUNT BILL MCV 93 80 - 98 fL [facility] ACCOUNT BILL MCH 29.6 27.0 - 34.0 pg [facility] ACCOUNT BILL MCHC 32.0 32.0 - 36.0 g/dL [facility] ACCOUNT BILL RDW 14.8 11.7 - 15.0 % [facility] ACCOUNT BILL Platelet Count 273 140 - 415 x10E3/uL [facility] ACCOUNT BILL Granulocytes % 70 40 - 74 % [facility] ACCOUNT BILL Lymphocytes % 17 14 - 46 % [facility] ACCOUNT BILL Monocytes % 9 4 - 13 % [facility] ACCOUNT BILL Eosinophils % 3 0 - 7 % [facility] ACCOUNT BILL Basophils % 1 0 - 3 % [facility] ACCOUNT BILL Immature Cells NOT NEEDED [facility] ACCOUNT BILL Comment:Ancillary determined the test is not needed Granulocytes Absolute 3.8 1.8 - 7.8 x10E3/uL [facility] ACCOUNT BILL Lymphocytes Absolute 0.9 0.7 - 4.5 x10E3/uL [facility] ACCOUNT BILL [...] Blood specimen (specimen) BLOOD SPECIMEN / Unknown 10/29/2011 10:51 AM CDT 10/29/2011 6:08 PM CDT Narrative Resulting Agency Comment [facility] [place] [address] [facility] ??[facility] [phone] Edward Miranda MD LAB - HEMATOLOGY OR DERABLES [facility] ACCOUNT BILL documented in this encounter Visit Diagnoses Diagnosis Rheumatoid arthritis(714.0) (HCC)- Primary Rheumatoid arthritis documented in this encounter Care Teams Civil Preparedness Officer Relationship Specialty Start Date End Date Edward Miranda MD Rheumatology 06/24/11 documented as of this encounter
--- OUTSIDE RECORDS SUMMARY | 2024-06-28 21:39 | XMS_ITS | Encounter Summary ---
Author Organization [facility] Address [address] [place] [address] [place] [address] Care Team Providers Care Export Packer Name Role Phone Unavailable Primary Care Provider Unavailabl e Reason for Visit * Reason Comments Follow-up ra General hand stiffness Encounter Details Date Type Department Care Team (Late st Contact Info) Description 11/06/2010 9:45 AM CDT Office Visit [facility] - Rheumatology [address] [place] [id number] Edward Miranda MD [address] [place], [place] [id number] Rheumatoid arthritis (HCC) (Primary Dx); Screening cholesterol level; Vitamin D deficiency Social History Tobacco Use Types Packs/Day Years [...] Sign Reading Time Taken Comments Blood Pressure 136/88 11/06/2010 9:52 AM CDT Pulse 76 11/06/2010 9:52 AM CDT Temperature - - Respiratory Rate - - Oxygen Saturation - - Inhaled Oxygen Concentration - - Weight 61.2 kg (135 lb) 11/06/2010 9:52 AM CDT Height - - Body Mass Index 23.91 10/27/2008 10:24 AM CDT documented in this encounter Progress Notes * Deepali Castellon MA - 11/15/2010 12:05 PM CDTQuick Note: Sent lab letter to pt * Edward Miranda MD - 11/13/2010 6:34 PM CDTQuick Note: bs 124 Chol 246 mtx ok * Edward Miranda MD - 11/06/2010 10:32 AM CDT Subjective: Seina Ruth 49 y.o. female Chief Complaint Patient presents with ??? Follow-up ra ??? General hand stiffness Current outpatient prescriptions ordered prior to encounter Medication Sig Dispense Refill ??? Methotrexate, Anti-Rheumatic, 2.5 MG TABS Take 10 mg by mouth every 7 days. 16 Tab 12 ??? NASONEX 50 MCG/ACT SUSP [place] 1 [place] into each nostril daily. Prn in the am ??? metoprolol (LOPRESSOR) 10 mg/ml Take by mouth daily. Patient Active Problem List Diagnoses Code ??? Rheumatoid Arthritis 714.0 ??? Back Pain 724.5E ??? Screening cholesterol level V77.91A History Smoking status ??? Former Smoker ??? Quit date: 10/27/2006 Smokeless tobacco ??? Never Used History Alcohol Use ??? Yes social History Drug Use No doing well Pain Level: /10 Am stiffness 5 min Global 1/10 Fatigue y Medication Side Effects n Review of Systems: GENERAL: No fever, chills, sweats, EARS: No wax or hearing loss. NOSE: No runny nose, bleeding, sinus drainage MOUTH: No gingivitis or stomatitis GI: No nausea vomiting, abdominal pain, weight loss, anorexia diarrhea, gerd HEART: No chest pain, palpitations, orthopnea, syncope LUNGS: No shortness of breath, cough, pleurisy, wheezing : No nocturia, dysuria, frequency, urgency, kidney stones. SKIN: No rash, itching, dry skin MS: NEURO: No headaches, seizures, dizziness, confusion, numbness, tingling HEME: No bruising or bleeding, swollen glands EXTREMITIES: No cyanosis, clubbing, edema OTHER: Objective: BP 136/88 Pulse 76 Wt 135 lb (61.236 kg) Tender Joint Count 0/28 Swollen Joint [...] Diagnoses Code Name Primary? 714.0 Rheumatoid arthritis ??? V77.91A Screening cholesterol level ??? 268.9G Vitamin D deficiency Plan: Plan Orders Placed This Encounter ??? CBC W AUTO DIFFERENTIAL ??? COMPREHENSIVE METABOLIC PANEL ??? LIPID PROFILE W LDL/HDL (PO REF LAB) ??? SED RATE WESTERGREN AUTO ??? VITAMIN D 25-HYDROXY ??? C-REACTIVE PROTEIN Follow up in office in 4 mon * Deepali Castellon MA - 11/06/2010 9:55 AM CDT Chief Complaint Patient presents with ??? Follow-up ra ??? General hand stiffness BP 136/88 Pulse 76 Wt 135 lb (61.236 kg) documented in this encounter Plan of Treatment Not on file documented as of this encounter Procedures Procedure Name Priority Date/Time Associated Diagnosis Comments LIPID PROFILE W LDL/HDL RATIO Routine 11/06/2010 10:13 AM CDT Screening cholesterol level C-REACTIVE PROTEIN Routine 11/06/2010 10 :13 AM CDT Rheumatoid arthritis (HCC) VITAMIN D 25-HYDROXY Routine 11/06/2010 10:13 AM CDT Vitamin D deficiency ERYTHROCYTE SEDIMENTATION RATE Routine 11/06/2010 10:13 AM CDT Rheumatoid arthritis (HCC) CBC W AUTO DIFFERENTIAL Routine 11/06/2010 10:13 AM CDT Rheumatoid arthritis (HCC) COMPREHENSIVE METABOLIC PANEL Routine 11/06/2010 10:13 AM CDT Rheumatoid arthritis (HCC) documented in this encounter Results * C-REACTIVE PROTEIN (11/06/2010 10:13 AM CDT) C-Reactive Protein 3.3 0.0 - 4.9 mg/L [facility] ACCOUNT BILL BLOOD SPECIMEN / Unknown 11/06/2010 10:13 AM CDT 11/06/2010 5:53 PM CDT Narrative Resulting Agency Comment [facility] [place] [address] ??[facility] [phone] Edward Miranda MD LAB - CHEMISTRY ORD ERABLES [facility] ACCOUNT BILL * VITAMIN D 25-HYDROXY (11/06/2010 10:13 AM CDT) Vitamin D, 25 Hydroxy 34.6 32.0 - 100.0 ng/mL [facility] ACCOUNT BILL Comment: Recent studies consider the lower limit of 32.0 ng/mL to be a threshold for optimal health. Ag CASTRO. J Nutr. 2004;135(2):317-22. BLOOD SPECIMEN / Unknown 11/06/2010 10:13 AM CDT 11/06/2010 5:53 PM CDT Narrative Resulting Agency Comment [facility] [place] [address] ??[facility] [phone] Edward Miranda MD LAB - CHEMISTRY ORD ERABLES Performing Organization Address City/[facility]/ZIP Co de Phone Number [facility] ACCOUNT BILL * SED RATE WESTERGREN AUTO (11/06/2010 10:13 AM CDT) Erythrocyte Sedimentation Rate Westergren 6 0 - 20 mm/hr [facility] ACCOUNT BILL BLOOD SPECIMEN / Unknown 11/06/2010 10:13 AM CDT 11/06/2010 5:53 PM CDT Narrative Resulting Agency Comment [facility] [place] [address] ??[facility] [phone] Edward Miranda MD LAB - HEMATOLOGY OR DERABLES [facility] ACCOUNT BILL * (ABNORMAL) LIPID PROFILE W LDL/HDL (PO [...] PM CDT Narrative Resulting Agency Comment [facility] [address] ??[facility] [phone] Edward Miranda MD LAB - CHEMISTRY ORD ERABLES [facility] ACCOUNT BILL * (ABNORMAL) COMPREHENSIVE METABOLIC PANEL (11/06/2010 10:13 AM CDT) Glucose 124(H) 65 - 99 mg/dL [facility] ACCOUNT BILL BUN 11 6 - 24 mg/dL [facility] ACCOUNT BILL Creatinine 0.86 0.57 - 1.00 mg/dL [facility] ACCOUNT BILL eGFR by MDRD 80 >59 mL/min/1.7 3 [facility] ACCOUNT BILL eGFR by MDRD 92 >59 mL/min/1.7 3 [facility] ACCOUNT BILL Comment: Note: A persistent eGFR <60 mL/min/1.73 m2 (3 months or more) may indicate chronic kidney disease. An eGFR >59 mL/min/1.73 m2 with an elevated urine protein also may indicate chronic kidney disease. Calculated using CKD-EPI formula. BUN/Creatinine Ratio 13 9 - 23 [facility] ACCOUNT BILL Sodium 140 135 - 145 mmol/L [facility] ACCOUNT BILL Potassium 4.5 3.5 - 5.2 mmol/L [facility] ACCOUNT BILL Chloride 103 97 - 108 mmol/L [facility] ACCOUNT BILL CO2 23 20 - 32 mmol/L [facility] ACCOUNT BILL Calcium 9.7 8.7 - 10.2 mg/dL [facility] ACCOUNT BILL Protein Total 7.5 6.0 - 8.5 g/dL [facility] ACCOUNT BILL Albumin 4.5 3.5 - 5.5 g/dL [facility] ACCOUNT BILL Globulin Total 3.0 1.5 - 4.5 g/dL [facility] ACCOUNT BILL Albumin/Globulin Ratio 1.5 1.1 - 2.5 [facility] ACCOUNT BILL Bilirubin Total 0.3 0.0 - 1.2 mg/dL [facility] ACCOUNT BILL Alkaline Phosphatase 54 25 - 150 IU/L [facility] ACCOUNT BILL AST 19 0 - 40 IU/L [facility] ACCOUNT BILL ALT 22 0 - 40 IU/L [facility] ACCOUNT BILL BLOOD SPECIMEN / Unknown 11/06/2010 10:13 AM CDT 11/06/2010 5:53 PM CDT Narrative Resulting Agency Comment [facility] [address] ??[facility] [phone] Edward Miranda MD LAB - CHEMISTRY ORD ERABLES [facility] ACCOUNT BILL * (ABNORMAL) CBC W AUTO DIFFERENTIAL (11/06/2010 10:13 AM CDT) WBC 5.5 4.0 - 10.5 x10E3/uL [facility] ACCOUNT BILL RBC 4.75 3.80 - 5.10 x10E6/uL [facility] ACCOUNT BILL Hemoglobin 14.6 11.5 - 15.0 g/dL [facility] ACCOUNT BILL Hematocrit 44.2(H) 34.0 - 44.0 % [facility] ACCOUNT BILL MCV 93 80 - 98 fL [facility] ACCOUNT BILL MCH 30.7 27.0 - 34.0 pg [facility] ACCOUNT BILL MCHC 33.0 32.0 - 36.0 g/dL [facility] ACCOUNT BILL RDW 14.5 11.7 - 15.0 % [facility] ACCOUNT BILL Platelet Count 323 140 - 415 x10E3/uL [facility] ACCOUNT BILL Granulocytes % 67 40 - 74 % [facility] ACCOUNT BILL Lymphocytes % 19 14 - 46 % [facility] Monocytes % 10 4 - 13 % [facility] ACCOUNT BILL Eosinophils % 3 0 - 7 % [facility] ACCOUNT BILL Basophils % 1 0 - 3 % [facility] ACCOUNT BILL Immature Cells NOT NEEDED [facility] ACCOUNT BILL Comment:Ancillary determined the test is not needed Granulocytes Absolute 3.6 1.8 - 7.8 x10E3/uL [facility] ACCOUNT BILL Lymphocytes Absolute 1.0 0.7 - 4.5 x10E3/uL [facility] ACCOUNT BILL [...] Comment:Ancillary determined the test is not needed BLOOD SPECIMEN / Unknown 11/06/2010 10:13 AM CDT 11/06/2010 5:53 PM CDT Narrative Resulting Agency Comment [facility] [address] ??[facility] [phone] Edward Miranda MD LAB - HEMATOLOGY OR DERABLES [facility] ACCOUNT BILL documented in this encounter Visit Diagnoses Diagnosis Rheumatoid arthritis(714.0) (HCC)- Primary Rheumatoid arthritis Screening cholesterol level Screening for lipoid disorders Vitamin d deficiency Unspecified vitamin D deficiency documented in this encounter
--- OUTSIDE RECORDS SUMMARY | 2024-06-28 21:39 | XMS_ITS | Encounter Summary ---
Author Organization [facility] Address [facility]ly [facility] [place] [address] [place] [address] Care Team Providers Care Supervisor Print Line Name Role Phone William Craig MD Primary Care Provider [phone] Judie Carnes MD Unavailable Reason for Visit * Reason Onset Date Comments Holter Monitor 01/20/2024 Encounter Details Date Type Department Care Team (Late st Contact Info) Description 01/20/2024 Telephone [facility] [address] [place] [address] Judie Carnes MD [address] [place] [address] Holter Monitor Social History Tobacco Use Types Packs/Day Years Used Date Smoking Tobacco: Former Cigarettes Comments Unknown Sex and Gender Information Value Date Recorded Sex Assigned at Not on file Legal Sex Female 1:48 PM CDT Gender Identity Not on file Sexual Orientation Not on file documented as of this encounter Progress Notes * Minh Pablo LPN - 02/01/2024 9:31 AM CDT Oneil called to let me know that pt is currently in the hospital due to another stroke. We will cancel the monitor for now. Oneil will call me after pt is discharged and we will have Dr. Carnes review the records and give further recommendations after. Oneil v/u, no further questions. * Minh Pablo LPN - 01/29/2024 11:55 AM CDT LM for pt letting her know that she does need another monitor as Dr. Carnes had discussed with her at her appt, I asked pt to call back with any questions. * Minh Pablo LPN - 01/29/2024 11:53 AM CDT Yes, she does need this! Dr. Carnes did discuss this with patient at her visit. I will also call andlet them know. Thanks! * Mine Stanton MA - 01/26/2024 11:24 AM CDT Hello, is this there an update on this? Does pt need another monitor or no? Thank you, Mine * Minh Pablo LPN - 01/21/2024 3:12 PM CDT Recent monitor noted in Dr. Carnes's note, will see if he needs another MCT and get back to pt. * Nancy Abraham - 01/20/2024 3:55 PM CDT Spoke with patient's spouse Oneil to arrange heart monitor. He stated the patient just monitored for 24 days, study ended on 12/23. He stated Dr. Carnes did not discuss doing another monitor and would like to talk to the office if patient still needs it. Please let us know how to proceed. Thank you. documented in this encounter Plan of Treatment Upcoming Encounters Date Type Department Care Team (Late st Contact Info) Description 01/17/2025 8:00 AM CDT Appointment [facility] [address] [place] [address] Judie Carnes MD [address] [place] [address] 01/20/2025 10:30 AM CDT Office Visit [facility] [address] [place] [address] Judie Carnes MD [address] [place] [address] documented as of this encounter Visit Diagnoses Not on filedocumented in this encounter Care Teams Supervisor Print Line Relationship Specialty Start Date End Date William Craig MD [address] [place] [phone] PCP - General INTERNAL MEDICINE 01/15/24 Judie Carnes MD [address] [place] [address] [employer] CARDIOVASCULAR DISEASE 01/15/24 documented as of this encounter
--- OUTSIDE RECORDS SUMMARY | 2024-06-28 21:39 | XMS_ITS | Clinical Summary ---
Author Organization [facility] Address [facility] [place] [address] [place] [address] Care Team Providers Care Lead Massage Therapist Name Role Phone William Craig MD Primary Care Provider [phone] Judie Carnes MD Unavailable Allergies Active Allergy Reactions Criticality Noted Date Comments Lisinopril Other (see comment) 10/27/2008 Cough Medications leflunomide (ARAVA) 20 MG tablet Take 1 tablet (20 mg total) by mouth daily. Active rosuvastatin (CRESTOR) 20 MG tablet Take 1 tablet (20 mg total) by mouth daily. Active aspirin EC (ECOTRIN) 81 MG tablet Take 1 tablet (81 mg total) by mouth daily. Active metFORMIN ER (GLUCOPHAGE-XR) 500 MG 24 hr tablet Take 1 tablet (500 mg total) by mouth daily with supper. Active losartan (COZAAR) 100 MG tablet Take 1 tablet (100 mg total) by mouth nightly at bedtime. Active clopidogrel (PLAVIX) 75 MG tablet Take 1 tablet (75 mg total) by mouth daily. Active verapamil (CALAN SR) 120 MG ER tablet Take 1 tablet (120 mg total) by mouth 2 (two) times daily. Active Active Problems Problem Noted Date Diagnosed Date Hx of completed stroke 03/09/2024 Encounters Date Type Department Care Team Description 04/06/2024 Prep for Procedure [facility] [address] [place] [address] Arnaldo Ga MD 04/05/2024 Telephone [facility] [address] [place] [address] Arnaldo Ga MD Schedule Procedure; Called To Cancel Office Appt. from Last 3 Months Family History Medical History Relation Comments Diabetes Brother Hyperlipidemia Brother Hypertension Brother Diabetes Father Hyperlipidemia Father Hypertension Father Stroke Maternal Grandmother Relation Status Comments Brother Father Maternal Grandmother Mother Social History Tobacco Use Types Packs/Day Years Used Date Smoking Tobacco: Former Cigarettes Tobacco Cessation:Counseling Given: Not Answered Comments Unknown Sex and Gender Information Value Date Recorded Sex Assigned at Not on file Legal Sex Female 1:48 PM CDT Gender Identity Not on file Sexual Orientation Not on file Last Filed Vital Signs Vital Sign Reading Time Taken Comments Blood Pressure 153/66 03/09/2024 10:41 AM CDT Pulse 78 03/09/2024 10:41 AM CDT Temperature - - Respiratory Rate 16 01/18/2024 1:39 PM CDT Oxygen Saturation 98% 03/09/2024 10:41 AM CDT Inhaled Oxygen Concentration - - Weight 60 kg (132 lb 4.8 oz) 03/09/2024 10:41 AM CDT Height 160 cm (5' 3 ) 03/09/2024 10:41 AM CDT Body Mass Index 23.44 03/09/2024 10:41 AM CDT Plan of Treatment Upcoming Encounters Date Type Department Care Team (Late st Contact Info) Description 01/17/2025 8:[address] [facility] [address] [place] [address] Judie Carnes MD [address] [place] [address] 01/20/2025 10:30 AM CDT Office Visit [facility] [address] [place] [address] Judie Carnes MD [address] [place] [address] Health Maintenance Due Date Last Done Comments Cervical Cancer Screening Pap Smear (Age 30 to 64) Every 3 Years 1960 Colorectal Cancer Screening Colonoscopy (10 Years) 1960 Annual Physical 12/25/1963 Pneumococcal Vaccine: Pediatrics (0 to 5 Years) and At-Risk Patients (6 to 64 Years) (1 of 2 - PCV) 1966 Hepatitis C 1978 DTaP, Tdap and Td Vaccines (1 - Tdap) 12/25/1979 Cervical Cancer Screening Pap with HPV Testing (Age 30 to 64) Every 5 Years 1990 Cervical Cancer Screening with HPV 1990 Mammogram Screening 2000 RSV Immunization or 60+ Years (1 - 1-dose 60+ series) 2020 COVID-19 Vaccine ( - season) 2024 04/15/2022, 06/03/2021, 10/03/2020, Additional history exists Influenza Adult (#1) 2024 Zoster Vaccines Completed 07/07/2023, 03/18/2023 Meningococcal Vaccine Aged Out No juan nba eligible based on patient's age to complete this topic RSV Immunizations Under 20 Months Aged Out No longer eligible based on patient's age to complete this topic Insurance [facility] Care Teams Lead Massage Therapist Relationship Specialty Start Date End Date William Craig MD [address] [place] [address] PCP - General INTERNAL MEDICINE 01/15/24 Judie Carnes MD [address] [place] [address] [place] [employer] Estimator CARDIOVASCULAR DISEASE 01/15/24
--- OUTSIDE RECORDS SUMMARY | 2024-06-28 21:39 | XMS_ITS | Encounter Summary ---
Author Organization [facility] Health Address [address] [place] [address] Care Team Providers Care Artificial Stone Applicator Name Role Phone Unavailable Primary Care Provider Unavailabl e Encounter Details Date Type Department Care Team (Late st Contact Info) Description 04/26/2009 Orders Only [facility] - Rheumatology [address] [place] [id number] [place] Miranda MD [address] [place] [address] [id number] Social History Tobacco Use Types Packs/Day Years [...] Progress Notes * Deepali Castellon MA - 05/04/2009 12:13 PM CDTQuick Note: Sent letter * [place] Miranda MD - 04/29/2009 8:40 PM CDTQuick Note: Mtx ok documented in this encounter Plan of Treatment Not on file documented as of this encounter Procedures Procedure Name Priority Date/Time Associated Diagnosis Comments CBC W AUTO DIFFERENTIAL 04/26/2009 1:20 PM CDT COMPREHENSIVE METABOLIC PANEL 04/26/2009 1:20 PM CDT documented in this encounter Results * (ABNORMAL) COMPREHENSIVE METABOLIC PANEL (04/26/2009 1:20 PM CDT) Glucose 103(H) 65 - 99 mg/dL [facility] INSURANCE BILL BUN 13 5 - 26 mg/dL [facility] INSURANCE BILL Creatinine 0.81 0.57 - 1.00 mg/dL [facility] INSURANCE BILL [...] may be found at [email or web address].org. BUN/Creatinine Ratio 16 8 - 27 [facility] INSURANCE BILL Sodium 138 135 - 145 mmol/L [facility] INSURANCE BILL Potassium 4.2 3.5 - 5.2 mmol/L [facility] INSURANCE BILL Chloride 104 97 - 108 mmol/L [facility] INSURANCE BILL CO2 24 20 - 32 mmol/L [facility] INSURANCE BILL Calcium 9.0 8.5 - 10.6 mg/dL [facility] INSURANCE BILL Protein Total 7.1 6.0 - 8.5 g/dL [facility] INSURANCE BILL Albumin 4.1 3.5 - 5.5 g/dL [facility] INSURANCE BILL Globulin Total 3.0 1.5 - 4.5 g/dL [facility] INSURANCE BILL Albumin/Globulin Ratio 1.4 1.1 - 2.5 [facility] INSURANCE BILL Bilirubin Total 0.3 0.1 - 1.2 mg/dL [facility] INSURANCE BILL Alkaline Phosphatase 50 25 - 150 IU/L [facility] INSURANCE BILL AST 18 0 - 40 IU/L [facility] INSURANCE BILL ALT 17 0 - 40 IU/L [facility] INSURANCE BILL 04/26/2009 1:20 PM CDT 04/26/2009 9:43 PM CDT Narrative Resulting Agency Comment [facility] [address] ??[facility] [phone] Edward Miranda MD LAB - CHEMISTRY ORD ERABLES [facility] INSURANCE BILL * CBC W AUTO DIFFERENTIAL (04/26/2009 1:20 PM CDT) WBC 4.8 4.0 - 10.5 x10E3/uL [facility] INSURANCE BILL RBC 4.01 3.80 - 5.10 x10E6/uL [facility] INSURANCE BILL Hemoglobin 12.8 11.5 - 15.0 g/dL [facility] INSURANCE BILL Hematocrit 37.4 34.0 - 44.0 % [facility] INSURANCE BILL MCV 93 80 - 98 fL [facility] INSURANCE BILL MCH 31.9 27.0 - 34.0 pg [facility] INSURANCE BILL MCHC 34.2 32.0 - 36.0 g/dL [facility] INSURANCE BILL RDW 14.3 11.7 - 15.0 % [facility] INSURANCE BILL Platelet Count 276 140 - 415 x10E3/uL [facility] INSURANCE BILL Granulocytes % 60 40 - 74 % [facility] INSURANCE BILL Lymphocytes % 30 14 - 46 % [facility] INSURANCE BILL Monocytes % 7 4 - 13 % [facility] INSURANCE BILL Eosinophils % 2 0 - 7 % [facility] INSURANCE BILL Basophils % 1 0 - 3 % [facility] INSURANCE BILL Granulocytes Absolute 2.9 1.8 - 7.8 x10E3/uL [facility] INSURANCE BILL Lymphocytes Absolute 1.4 0.7 - 4.5 x10E3/uL [facility] INSURANCE BILL Monocytes Absolute 0.3 0.1 - 1.0 x10E3/uL [facility] INSURANCE BILL Eosinophils Absolute 0.1 0.0 - 0.4 x10E3/uL [facility] INSURANCE BILL Basophils Absolute 0.0 0.0 - 0.2 x10E3/uL [facility] INSURANCE BILL Comment Hematology NOT AVAIL. [facility] INSURANCE BILL 04/26/2009 1:20 PM CDT 04/26/2009 9:43 PM CDT Narrative [facility] INSURANCE BILL - 04/27/2009 10:38 AM CDT Additional Result Information HEMATOLOGY COMMENTS: ??BLOOD,URINE ([facility]): RESULT NOT AVAILABLE Resulting Agency Comment [facility] [address] ??[facility] [id number] Edward Miranda MD LAB - HEMATOLOGY OR DERABLES [facility] INSURANCE BILL documented in this encounter Visit Diagnoses Not on filedocumented in this encounter
--- OUTSIDE RECORDS SUMMARY | 2024-06-28 21:39 | XMS_ITS | Encounter Summary ---
Author Organization [facility] Address [facility] [facility] [place] [address] [place] [address] Care Team Providers Care Pneumatic Tester Mechanic Name Role Phone William Craig MD Primary Care Provider [phone] Judie Rowell MD Unavailable Encounter Details Date Type Department Care Team (Late st Contact Info) Description 01/18/2024 Orders Only [facility] [address] [place], [place] [address] Judie Rowell MD [address] [place], [place] [id number] Social History Tobacco Use Types Packs/Day Years [...] Info) Description 01/17/2025 8:00 AM CDT Appointment [facility] [address] [place] [address] Judie Rowell MD [address] [place], [place] [address] 01/20/2025 10:30 AM CDT Office Visit [facility] [address] [place] [phone] Judie Rowell MD [address] [place], [place] [id number] documented as of this encounter Results * ECG 12 lead (HOSPITAL PERFORMED ONLY) (01/18/2024 11:39 AM CDT) 01/18/2024 11:3 9 AM CDT Narrative [facility] - 01/18/2024 6:52 PM CDT ? [facility] ?[address] [place], [place] ??[address] ? Test Date: ?2024-01-18 Pat Name: ? SENIA RUTH ?Department: ?? 3 ? Room: ? Gender: ? Female ? Economics Department Chair: ?? : ?1960 ? Requested By: JUDIE ROWELL Order Number: [id number] ? Reading MD: ?? Judie Rowell ? Measurements Intervals ?[place] ? Rate: ? 63 ? P: ?49 OR: ? 159 ?QRS: ?24 QRSD: ? 82 ? T: ?69 QT: ? 400 ? QTc: ?411 ? Interpretive Statements SINUS RHYTHM POSSIBLE LEFT ATRIAL ENLARGEMENT ??[-0.1mV P WAVE IN V1/V2] Procedure Note Judie Rowell MD - 01/18/[address] [place] [address] Test Date: 2024-01-18 Pat Name: SENIA RUTH Department: 3 Room: Gender: Female Economics Department Chair: : 1960 Requested By: JUDIE ROWELL Order Number: [id number] Reading MD: Judie Rowell Measurements Intervals [place] Rate: 63 P: 49 OR: 159 QRS: 24 QRSD: 82 T: 69 QT: 400 QTc: 411 Interpretive Statements SINUS RHYTHM POSSIBLE LEFT ATRIAL ENLARGEMENT [-0.1mV P WAVE IN V1/V2] us Judie Rowell MD ECG ORDERABLES Final Result [facility] documented in this encounter Visit Diagnoses Diagnosis Mitral valve disease- Primary Other and unspecified mitral valve diseases Mitral valve disease Other and unspecified mitral valve diseases documented in this encounter Care Teams Pneumatic Tester Mechanic Relationship Specialty Start Date End Date William Craig MD [address] [place] [address] PCP - General INTERNAL MEDICINE 01/15/24 Judie Rowell MD [address] [place] [address] [place] [employer] CARDIOVASCULAR DISEASE 01/15/24 documented as of this encounter
--- OUTSIDE RECORDS SUMMARY | 2024-06-28 21:39 | XMS_ITS | Encounter Summary ---
Author Organization [facility] Health Address [address] [place] [address] [place] [address] Care Team Providers Care Chemical Applicator Name Role Phone Unavailable Primary Care Provider Unavailabl e Reason for Visit * Reason Comments Follow-up ra Encounter Details Date Type Department Care Team (Late st Contact Info) Description 06/27/2009 10:15 AM BUSINESS RESILIENCY MANAGER Office Visit [facility] - Rheumatology [address] [place] [phone] [place] Miranda MD [address] [place] [address] Rheumatoid Arthritis (HCC) (Primary Dx) Social History [...] Sign Reading Time Taken Comments Blood Pressure 144/88 06/27/2009 10:32 AM BUSINESS RESILIENCY MANAGER Pulse 76 06/27/2009 10:32 AM BUSINESS RESILIENCY MANAGER Temperature - - Respiratory Rate - - Oxygen Saturation - - Inhaled Oxygen Concentration - - Weight 61.2 kg (135 lb) 06/27/2009 10:32 AM BUSINESS RESILIENCY MANAGER Height - - Body Mass Index 23.91 10/27/2008 10:24 AM CDT documented in this encounter Progress Notes * Deepali Castellon MA - 09/12/2009 1:26 PM CSTQuick Note: Sent lab letter to pt NESS RESILIENCY MANAGER * [place] Miranda MD - 09/09/2009 10:11 PM CSTQuick Note: Labs ok NESS RESILIENCY MANAGER * Deepali Castellon MA - 07/10/2009 11:24 AM CSTQuick Note: Sent letter re labs NESS RESILIENCY MANAGER * [place] Miranda MD - 07/01/2009 5:25 PM CSTQuick Note: Mtx ok NESS RESILIENCY MANAGER * [place] Miranda MD - 06/27/2009 11:02 AM CST Subjective: Senia Ruth 48 y.o. female Chief Complaint Patient presents with ??? Follow-up ra Current outpatient prescriptions prior to encounter Medication Sig Dispense Refill ??? Methotrexate (Anti-Rheumatic) 2.5 MG TABS Take 4 Tabs by mouth every 7 days. 16 12 ??? NASONEX 50 MCG/ACT SUSP [place] 1 [place] into each nostril daily. Prn in the am ??? metoprolol (LOPRESSOR) 10 mg/ml Take by mouth daily. Patient Active Problem List Diagnoses Code ??? Rheumatoid Arthritis 714.0 ??? Back Pain 724.5E History Tobacco Use ??? Quit ??? Quit date: 10/27/2006 History Alcohol Use ??? Yes social History Drug Use No doing well Pain Level: 1/10 Am stiffness 5 min Global 0/10 Fatigue y Medication Side Effects n Review [...] No cyanosis, clubbing, edema OTHER: Objective: BP 144/88 Pulse 76 Wt 61.236 kg (135 lb) Tender Joint Count 0/28 Swollen Joint [...] in office in 4 mo Same meds NESS RESILIENCY MANAGER * Deepali Castellon MA - 06/27/2009 10:33 AM CST Chief Complaint Patient presents with ??? Follow-up ra BP 144/88 Pulse 76 Wt 61.236 kg (135 lb) NESS RESILIENCY MANAGER documented in this encounter Plan of Treatment Not on file documented as of this encounter Procedures Procedure Name Priority Date/Time Associated Diagnosis Comments ERYTHROCYTE SEDIMENTATION RATE Routine 08/31/2009 1:37 PM BUSINESS RESILIENCY MANAGER Rheumatoid Arthritis (HCC) C-REACTIVE PROTEIN Routine 06/27/2009 10 :46 AM BUSINESS RESILIENCY MANAGER Rheumatoid Arthritis (HCC) CBC W AUTO DIFFERENTIAL Routine 06/27/2009 10:46 AM BUSINESS RESILIENCY MANAGER Rheumatoid Arthritis (HCC) COMPREHENSIVE METABOLIC PANEL Routine 06/27/2009 10:46 AM BUSINESS RESILIENCY MANAGER Rheumatoid Arthritis (HCC) documented in this encounter Results * SED RATE WESTERGREN AUTO (08/31/2009 1:37 PM BUSINESS RESILIENCY MANAGER) Erythrocyte Sedimentation Rate Westergren 5 0 - 20 mm/hr [facility] ACCOUNT BILL BLOOD SPECIMEN / Unknown 08/31/2009 1:37 PM BUSINESS RESILIENCY MANAGER 08/31/2009 8:22 PM BUSINESS RESILIENCY MANAGER Narrative Resulting Agency Comment [facility] [address] ??[facility] [id number] Edward Miranda MD LAB - HEMATOLOGY OR DERABLES Performing Organization Address [facility] de Phone Number [facility] ACCOUNT BILL * C-REACTIVE PROTEIN (06/27/2009 10:46 AM BUSINESS RESILIENCY MANAGER) C-Reactive Protein 1.8 0.0 - 4.9 mg/L [facility] ACCOUNT BILL BLOOD SPECIMEN / Unknown 06/27/2009 10:46 AM BUSINESS RESILIENCY MANAGER 06/27/2009 5:42 PM BUSINESS RESILIENCY MANAGER Narrative Resulting Agency Comment [facility] ??[facility] [phone] Edward Miranda MD LAB - CHEMISTRY ORD ERABLES Performing Organization Address [facility] de Phone Number [facility] ACCOUNT BILL * (ABNORMAL) COMPREHENSIVE METABOLIC PANEL (06/27/2009 10:46 AM BUSINESS RESILIENCY MANAGER) Glucose 114(H) 65 - 99 mg/dL [facility] ACCOUNT BILL BUN 10 5 - 26 mg/dL [facility] ACCOUNT BILL Creatinine 0.80 0.57 [...] 8 - 27 [facility] ACCOUNT BILL Sodium 138 135 - 145 mmol/L [facility] ACCOUNT BILL Potassium 4.4 3.5 - 5.2 mmol/L [facility] ACCOUNT BILL Chloride 101 97 - 108 mmol/L [facility] ACCOUNT BILL CO2 23 20 - 32 mmol/L [facility] ACCOUNT BILL Calcium 9.4 8.5 - 10.6 mg/dL [facility] ACCOUNT BILL Protein Total 7.3 6.0 - 8.5 g/dL [facility] ACCOUNT BILL Albumin 4.6 3.5 - 5.5 g/dL [facility] ACCOUNT BILL Globulin Total 2.7 1.5 - 4.5 g/dL [facility] ACCOUNT BILL Albumin/Globulin Ratio 1.7 1.1 - 2.5 [facility] ACCOUNT BILL Bilirubin Total 0.2 0.1 - 1.2 mg/dL [facility] ACCOUNT BILL Alkaline Phosphatase 50 25 - 150 IU/L [facility] ACCOUNT BILL AST 21 0 - 40 IU/L [facility] ACCOUNT BILL ALT 22 0 - 40 IU/L [facility] ACCOUNT BILL BLOOD SPECIMEN / Unknown 06/27/2009 10:46 AM BUSINESS RESILIENCY MANAGER 06/27/2009 5:42 PM BUSINESS RESILIENCY MANAGER Narrative Resulting Agency Comment [facility] [address] ??[facility] [phone] Edward Miranda MD LAB - CHEMISTRY ORD ERABLES [facility] ACCOUNT BILL * CBC W AUTO DIFFERENTIAL (06/27/2009 10:46 AM BUSINESS RESILIENCY MANAGER) WBC 4.6 4.0 - 10.5 x10E3/uL [facility] ACCOUNT BILL RBC 4.35 3.80 - 5.10 x10E6/uL [facility] ACCOUNT BILL Hemoglobin 13.6 11.5 - 15.0 g/dL [facility] ACCOUNT BILL Hematocrit 41.0 34.0 - 44.0 % [facility] ACCOUNT BILL MCV 94 80 - 98 fL [facility] ACCOUNT BILL MCH 31.1 27.0 - 34.0 pg [facility] ACCOUNT BILL MCHC 33.0 32.0 - 36.0 g/dL [facility] ACCOUNT BILL RDW 14.3 11.7 - 15.0 % [facility] ACCOUNT BILL Platelet Count 312 140 - 415 x10E3/uL [facility] ACCOUNT BILL Granulocytes % 60 40 - 74 % [facility] ACCOUNT BILL Lymphocytes % 28 14 - 46 % [facility] ACCOUNT BILL Monocytes % 9 4 - 13 % [facility] ACCOUNT BILL Eosinophils % 2 0 - 7 % [facility] ACCOUNT BILL Basophils % 1 0 - 3 % [facility] ACCOUNT BILL Immature Cells NOT AVAIL. [facility] ACCOUNT BILL Granulocytes Absolute 2.8 1.8 - 7.8 x10E3/uL [facility] ACCOUNT BILL [...] [facility] ACCOUNT BILL BLOOD SPECIMEN / Unknown 06/27/2009 10:46 AM BUSINESS RESILIENCY MANAGER 06/27/2009 5:42 PM BUSINESS RESILIENCY MANAGER Narrative [facility] ACCOUNT BILL - 06/28/2009 7:24 AM BUSINESS RESILIENCY MANAGER Additional Result Information IMMATURE CELLS ([facility]): RESULT NOT AVAILABLE IMMATURE GRANULOCYTES ([facility]): RESULT NOT AVAILABLE IMMATURE GRANS (ABS) ([facility]): RESULT NOT AVAILABLE NRBC ([facility]): RESULT NOT AVAILABLE HEMATOLOGY COMMENTS: ??BLOOD,URINE ([facility]): RESULT NOT AVAILABLE Resulting Agency Comment [facility] [address] ??[facility] [phone] Edward Miranda MD LAB - HEMATOLOGY OR DERABLES [facility] ACCOUNT BILL documented in this encounter Visit Diagnoses Diagnosis Rheumatoid arthritis(714.0) ([facility])- Primary Rheumatoid arthritis documented in this encounter
--- OUTSIDE RECORDS SUMMARY | 2024-06-28 21:39 | XMS_ITS | Encounter Summary ---
Author Organization [facility] Address [address] [place] [address]. [place] [address] [place] [address] Care Team Providers Care Service Line Bus Cleaner Name Role Phone William Craig MD Primary Care Provider [phone] Judie Carnes MD Unavailable Reason for Visit * Reason Comments Consult Encounter Details Date Type Department Care Team (Late st Contact Info) Description 03/09/2024 10:30 AM CDT Office Visit [facility] [place] [address] Arnaldo Ga MD [address] [place] [address] Consult Social History Tobacco Use Types Packs/Day Years [...] - Respiratory Rate - - Oxygen Saturation 98% 03/09/2024 10:41 AM CDT Inhaled Oxygen Concentration - - Weight 60 kg (132 lb 4.8 oz) 03/09/2024 10:41 AM CDT Height 160 cm (5' 3 ) 03/09/2024 10:41 AM CDT Body Mass Index 23.44 03/09/2024 10:41 AM CDT documented in this encounter Patient Instructions * Patient Instructions* MARGOTH Mack 03/09/2024 10:30 AM CDT Loop Recorder to be scheduled. Dr Holland office will contact you! documented in this encounter Progress Notes * Arnaldo Ga MD - 03/09/2024 10:30 AM CDT Images from the original note were not included. Cardiac Electrophysiology Clinic Note PATIENT NAME: Senia Ruth : 1960 REFERRING PROVIDER: Judie Carnes MD PCP: WILLIAM CRAIG MD PRIMARY CARDIOLOGY PROVIDER: Judie Carnes MD Reason for Visit Cardiac electrophysiology consultation for embolic stroke of unknown source History of Present Illness I had the pleasure of seeing Senia Ruth in the Cardiac Electrophysiology Clinic at [facility]. As you are aware, Senia Ruth is a 63-year-old female with PMH of recurrent CVA, hypertension, hyperlipidemia, diabetes mellitus type 2 presented to our clinic for consu ltation regarding embolic stroke of unknown source. She has history of recurrent infarcts noted in multiple areas of brain and underwent workup which was negative for any significant stenosis. She had a 30-day radiation monitor which was negative for any atrial fibrillation. She was referred to me for extended monitoring for occult atrial fibrillation for embolic stroke. She denies any chest pain. Denies any shortness of breath. Denies any palpitations. Denies any syncopal episodes. Complains of dizziness on and off. Denies any pedal edema. Denies any orthopnea/PND. Diagnostics EKG - From today shows sinus rhythm. EKG image independently reviewed by me. Echo - from December 2023 shows LVEF of 60-65% . Moderate mitral stenosis with moderate left atrial enlargement. No PFO noted. 30-day cardiac event monitor- From sinus rhythm with an average rate of 69 bpm. No atrial fibrillation noted. Diagnosis Cryptogenic stroke Moderate mitral stenosis Hypertension Hyperlipidemia Diabetes mellitus type 2 Recommendations Cryptogenic stroke: Echo did not show any obvious cardiac sources of emboli. Her risk factors for atrial fibrillation include age, mitral stenosis, hypertension and diabetes mellitus type 2. Her 30 day event monitor did not reveal any atrial fibrillation. CRYSTAL-AF study on use of implantable loopmonitor showed that 14.6% patients with recent cryptogenic stroke have occult atrial fibrillation in the first year identified on the implantable loop monitor. Other studies have shown up to 24% prevalence of AF in this population. Given the high prevalence, I agree with pursuing an implantable loop recorder placement to screen for atrial fibrillation. I explained the procedure in detail to her. The risk of the procedure including bleeding, damage to muscle, bone and infection were explained. She is interested in proceeding with the procedure. We will not hold any medication prior to the procedure. Moderate mitral stenosis: Echocardiogram revealed moderate mitral stenosis. She denies any significant symptoms from it currently. Continue surveillance echocardiogram in [address] Carnes. Return to clinic in 1 year or sooner if clinical situation warrants with ELLIOT Navarro Thank you for allowing me to participate in the care of Senia Ruth Medications Current Outpatient Medications: amLODIPine (NORVASC) 5 MG tablet, Take 1 tablet (5 mg total) by mouth nightly at bedtime., Disp: , Rfl: aspirin EC (ECOTRIN) 81 MG tablet, Take 1 tablet (81 mg total) by mouth daily., Disp: , Rfl: clopidogrel (PLAVIX) 75 MG tablet, Take 1 tablet (75 mg total) by mouth daily., Disp: , Rfl: leflunomide (ARAVA) 20 MG tablet, Take 1 tablet (20 mg total) by mouth daily., Disp: , Rfl: losartan (COZAAR) 100 MG tablet, Take 1 tablet (100 mg total) by mouth nightly at bedtime., Disp: ,Rfl: metFORMIN ER (GLUCOPHAGE-XR) 500 MG 24 hr tablet, Take 1 tablet (500 mg total) by mouth daily with supper., Disp: , Rfl: metoprolol succinate ER (TOPROL-XL) 50 MG 24 hr tablet, Take 1 tablet (50 mg total) by mouth daily., Disp: , Rfl: rosuvastatin (CRESTOR) 20 MG tablet, Take 1 tablet (20 mg total) by mouth daily., Disp: , Rfl: Allergies Allergies Allergen Reactions Lisinopril Other (see comment) Cough Past Medical History Past Medical History: Diagnosis Date Bilateral carotid bruits Diabetes (CMS/HCC HHS/HCC) Type 2 Dizziness and giddiness Essential (primary) hypertension Hyperlipidemia Labile hypertension w/LVH Mitral valve disease Past Surgical History No past surgical history on file. Social History Social History Tobacco Use Smoking status: Former Types: Cigarettes Vaping Use Vaping status: Every Day Family History Family History Problem Relation Name Age of Onset Hypertension Father Hyperlipidemia Father Diabetes Father Diabetes Brother Hyperlipidemia Brother Hypertension Brother Stroke Maternal Grandmother No family history of arrhythmias Review of Systems Review of Systems Constitutional: Negative for malaise/fatigue. HENT: Negative for ear discharge and nosebleeds. Eyes: Negative for blurred vision and double vision. Respiratory: Negative for cough and shortness of breath. Cardiovascular: Negative for chest pain, palpitations, orthopnea, leg swelling and PND. Gastrointestinal: Negative for blood in stool and melena. Genitourinary: Negative for dysuria and hematuria. Musculoskeletal: Negative for joint pain and myalgias. Skin: Negative for itching and rash. Neurological: Positive for dizziness. Negative for sensory change, weakness and headaches. Endo/Heme/Allergies: Negative for polydipsia. Does not bruise/bleed easily. Psychiatric/Behavioral: Negative for depression. The patient is not nervous/anxious. Physical Examination Filed Vitals: 03/09/24 1041 BP: (!) 153/66 Pulse: 78 SpO2: 98% Weight: 60 kg (132 lb 4.8 oz) Height: 1.6 m (5' 3 ) Physical Exam Vitals reviewed. Constitutional: General: She is not in acute distress. Appearance: She is not ill-appearing. HENT: Head: Normocephalic and atraumatic. Right Ear: External ear normal. Left Ear: External ear normal. Nose: Nose normal. Mouth/Throat: Mouth: Mucous membranes are moist. Pharynx: Oropharynx is clear. Eyes: General: No scleral icterus. Extraocular Movements: Extraocular movements intact. Conjunctiva/sclera: Conjunctivae normal. Cardiovascular: Rate and Rhythm: Normal rate and regular rhythm. Heart sounds: Normal heart sounds. No murmur heard. Pulmonary: Effort: Pulmonary effort is normal. Breath sounds: Normal breath sounds. No wheezing. Abdominal: General: There is no distension. Palpations: Abdomen is soft. Tenderness: There is no abdominal tenderness. Musculoskeletal: General: No swelling. Normal range of motion. Cervical back: Normal range of motion and neck supple. Right lower leg: No edema. Left lower leg: No edema. Skin: General: Skin is warm and dry. Findings: No rash. Neurological: General: No focal deficit present. Mental Status: She is alert and oriented to person, place, and time. Motor: No weakness. Psychiatric: Behavior: Behavior normal. Thought Content: Thought content normal. Judgment: Judgment normal. documented in this encounter Plan of Treatment Upcoming Encounters Date Type Department Care Team (Late st Contact Info) Description 01/17/2025 8:00 AM CDT Appointment [facility] [address] [place] [address] [place] [address] Judie Carnes MD [address] [place] [address] 01/20/2025 10:30 AM CDT Office Visit [facility] [place] [address] Judie Carnes MD [address] [place] [address] documented as of this encounter Procedures Procedure Name Priority Date/Time Associated Diagnosis Comments ECG 12-LEAD Routine 03/09/2024 9:28 AM CDT Encounter for consultation Mitral valve stenosis, unspecified etiology documented in this encounter Visit Diagnoses Diagnosis Hx of completed stroke- Primary Transient ischemic attack (TIA), and cerebral infarction without residual deficits documented in this encounter Care Teams Service Line Bus Cleaner Relationship Specialty Start Date End Date William Craig MD [address] [place] [id number] PCP - General INTERNAL MEDICINE 01/15/24 Judie Carnes MD [address] [place] [address] [place] [employer] CARDIOVASCULAR DISEASE 01/15/24 documented as of this encounter
--- OUTSIDE RECORDS SUMMARY | 2024-06-28 21:39 | XMS_ITS | Encounter Summary ---
Author Organization [facility] Address Formerly [facility], [facility]6 [facility] [place] [address] [place] [address] Care Team Providers Care Chain Forming Machine Operator Name Role Phone William Craig MD Primary Care Provider [phone] Judie Carnes MD Unavailable Encounter Details Date Type Department Care Team (Latest Contact Info) Description 03/09/2024 10:15 AM CDT - 03/09/2024 11:59 PM CDT Hospital Encounter [facility] [address] [address] Arnaldo Humphrey MD [address] [place] [address] Discharge Disposition: Home or Self Care (Routine [...] tablet (20 mg total) by mouth daily. verapamil (CALAN SR) 120 MG ER tablet Take 1 tablet (120 mg total) by mouth 2 (two) times daily. documented as of this encounter Plan of Treatment Upcoming Encounters Date Type Department Care Team (Late st Contact Info) Description 01/17/2025 8:00 AM CDT Appointment [facility] [address] [place] [address] Judie Carnes MD [address] [place], [place] [phone] 01/20/2025 10:30 AM CDT Office Visit [facility] [address] [place] [address] Judie Carnes MD [address] [place], [place] [phone] documented as of this encounter Procedures Procedure Name Priority Date/Time Associated Diagnosis Comments ECG 12-LEAD Routine 03/09/2024 9:28 AM CDT Encounter for consultation Mitral valve stenosis, unspecified etiology documented in this encounter Results * ECG 12 lead (HOSPITAL PERFORMED ONLY) (03/09/2024 9:28 AM CDT) 03/09/2024 9:28 AM CDT Narrative [facility] - 03/11/2024 2:54 PM CDT ? [facility] ?[address] [place] ??[address] ? Test Date: ?2024-03-09 Pat Name: ? SENIA RUTH ?Department: ?? 3 ? Room: ? Gender: ? Female ? Manager Erp: ?? : ?1960 ? Requested By: ARNALDO MILAGRO Order Number: [id number] ? Reading MD: ?? Arnaldo Milagro ? Measurements Intervals ?[place] ? Rate: ? 71 ? P: ?65 FL: ? 156 ?QRS: ?75 QRSD: ? 82 ? T: ?75 QT: ? 397 ? QTc: ?433 ? Interpretive Statements SINUS RHYTHM Procedure Note Arnaldo Humphrey MD - 03/11/[address] [place] [address] Test Date: 2024-03-09 Pat Name: SENIA RUTH Department: 3 Room: Gender: Female Manager Erp: : 1960 Requested By: ARNALDO HUMPHREY Order Number: [id number] Reading MD: Arnaldo Humphrey Measurements Intervals [place] Rate: 71 P: 65 FL: 156 QRS: 75 QRSD: 82 T: 75 QT: 397 QTc: 433 Interpretive Statements SINUS RHYTHM Arnaldo Humphrey MD ECG ORDERABLES Final Res ult Performing Organization Address City/State/[facility] Co de Phone Number [facility] documented in this encounter Visit Diagnoses Diagnosis Hx of completed stroke- Primary Transient ischemic attack (TIA), and cerebral infarction without residual deficits Encounter for consultation Unspecified reason for consultation Mitral valve stenosis, unspecified etiology documented in this encounter Care Teams Chain Forming Machine Operator Relationship Specialty Start Date End Date William Craig MD [address] [place] [address] PCP - General INTERNAL MEDICINE 01/15/24 Judie Carnes MD [address] [place] [address] [facility] CARDIOVASCULAR DISEASE 01/15/24 documented as of this encounter
--- OUTSIDE RECORDS SUMMARY | 2024-06-28 21:39 | XMS_ITS | Data Portability ---
Author Organization [facility], [address] [facility] ([place]) Address [address] [place] [address] Care Team Providers Care Manager Of Pmo Name Role Phone ANANYA STOREY Referring Provider [phone] Assessment Encounter Date Assessment Date Assessment LastModified by Organization Details LastModified Time 11/23/2023 11/23/2023 1. Acute stroke in the left occipital region. That is the cause for the vision loss. This is explained and she expressed understanding. Her primary care physician has ordered a stroke workup. She should continue Plavix 75 mg daily for 3 weeks. After that, she should continue aspirin 81 mg daily. If the 30-day Holter monitor shows atrial fibrillation, she will require anticoagulatio n. We discussed risk factors. She has numerous stroke risk factors including hypertension, high cholesterol, diabetes and smoking. She expressed an understanding. I also recommended exercising at least 150 min per week. I also recommended the mind diet. She expressed understanding. She also requires an echocardiogram . We will await the CTA tomorrow and wait to see if she has carotid stenosis requiring intervention. 2. Smoking. She will continue to try and quit. 3. Diabetes. Her diabetes is under good cotrol with a hemoglobin A1c of 6.2. 3. Hypercholester olemia. Continue rosuvastatin. 4. Hypertension. Continue amlodipine, losartan, and metoprolol. aylin [email or web address] Not available 11/24/2023 23:44:35 Plan of Treatment Reminders Order Date Submit Date Provider Last Modified By Organization Details Last Modified Time Details Appointments None record ed. Lab None record ed. Referral None record ed. Procedures None record ed. Surgeries None record ed. Imaging None record ed. Medication Orders None record ed. Patient TargetsNo targets recorded. Patient Instructions Encounter Date Encounter Id Patient Instructions Last Modified By Organization Details Last Modified Time 11/23/2023 [id number] smoking cessatio n counseling, greater than 3 minutes up to 10 minutes* [email or web address] Not available 01/22/2024 17:07:21 Reason for Referral None Reported. Results Created Date Observation Date Name Description Value Unit Range Abnormal Flag Note LastModifiedBy Organization Detail LastModifiedTime 12/02/[address], angio gram, head, w/wo contr ast No observ ation record ed. [email or web address] Not Available 12/01 10:59:56 Result Notes None recorded. Problems Name Problem SNOMED Code Status Onset Date Resolution Date Notes Provider Name and Address Organization Details Recorded Time Ischemic stroke 044483937 Active 2023 Omayra Gallardo MD [address] [place] [address], [phone], [facility] 4 12:16:56 Smoker 76272420 Active 2023 Omayra Gallardo MD [facility] [place] [address], [phone], [facility] 4 12:17:47 Labile essential hypertension 186596555 Active 2023 Omayra Gallardo MD [facility] [place] [address], [phone], [facility] 4 12:59:07 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 Procedures Surgical History Date Name Laterality Status Provider Name and Address Organization Details Recorded Time Colonoscopy with biopsy completed Not Available Health Note 11/21/2023 17:59:05 Imaging Results Imaging Date Name Status LastModified by Organiz ation Details LastModified Time 12/02/2023 CT, angiogram, head, w/wo contrast completed [email or web address] Information not available 12/02/2023 10:59:56 Procedure Notes None recorded. Medical Equipment None Reported. Allergies No known drug allergies Medications Name Sig Start Date Stop Date Status Note LastModified by Organization Details LastModified Time amlodipine 5 mg tablet Take 1 tablet every day by oral route. active Not Available Not Available No t Available Plavix 75 mg tablet Take 1 tablet every day by oral route. active Not Available Not Available No t Available aspirin 81 mg tablet,belkys yed release Take 1 tablet every day by oral route. active Not Available Not Available No t Available leflunomide 20 mg tablet Take 1 tablet every day by oral route. active Not Available Not Available No t Available losartan 100 mg tablet Take 1 tablet every day by oral route. active Not Available Not Available No t Available rosuvastati n 20 mg tablet Take 1 tablet every day by oral route. active Not Available Not Available No t Available metformin ER 500 mg 24 hr tablet,exte nded release (gastric retention) Take 1 tablet every day by oral route. active Not Available Not Available No t Available metoprolol succinate ER 50 mg capsule sprinkle, ext. release 24 hr Take 1 capsule every day by oral route. active Not Available Not Available No t Available Paxlovid 300 mg (150 mg x 2)-100 mg tablets in a dose pack TAKE BY ORAL ROUTE 2 TIMES PER DAY PER PACKAGE DIRECTION S FOR 5 DAYS 11/22 completed Not Available Not Available Not Available Vitals Date Recorded Body weight Heart rate Oxygen saturation Oxygen saturation in Arterial blood by Pulse oximetry Systolic blood pressure Diastolic blood pressure Provider Name and Address Organization Details Last Updated DateTime 4 37227.1 3 g 65 /min 97 % 97 % 120 mm[Hg] 65 mm[Hg] Lalita Mars [facility] 4 11:27:40 Social History Question Answer Notes LastModified by Organizat ion Details LastModified Time Do You Have An Advance Directive? No [email or web address] Information not available 11/21/2023 What Is Your Level Of Alcohol Consumption? None [email or web address] Information not available 11/21/2023 What Is Your Level Of Caffeine Consumption? Moderate [email or web address] Information not available 11/21/2023 Are You Currently Employed? No [email or web address] Information not available 11/21/2023 What Is Your Occupation? Retired [email or web address] Information not available 11/21/2023 How Many Times Per Week Do You Exercise? Less Than 1 Time Per Week [email or web address] Information not available 11/21/2023 How Many Packs Per Day (PPD)? 1 Pack Per Day [email or web address] Information not available 11/21/2023 How Long Have You Smoked? 45 [email or web address] Information not available 11/21/2023 Do You Have A Medical Power Of Hoop Flaring Machine Operator? Yes [email or web address] Information not available 11/21/2023 What Was The Date Of Your Most Recent Tobacco Screening? 11/23/2023 [email or web address] Information not available 11/21/2023 What Is Your Relationship Status? [email or web address] Information not available 11/21/2023 Do You Use Any Illicit Or Recreational Drugs? No [email or web address] Information not available 11/21/2023 Sex: Unknown Functional Status Question Answer Note LastModified by Organization D etails LastModified Time What is your exercise level? None [email or web address] Information not available 11/21/2023 Mental Status None recorded. Family History Relationship Description Onset Age of this Age Resolved Age Notes LastModified by Organization Details LastModified Time Father Arthritis [email or web address] Not available 11/21/2023 17:59:04 Father Family history of malignant neoplasm [email or web address] Not available 2023 17:59:04 Father Hypertensive disorder [email or web address] Not available 2023 17:59:04 Mother Family history of malignant neoplasm [email or web address] Not available 2023 17:59:04 Mother Diabetes mellitus [email or web address] Not available 2023 17:59:04 Mother Hypertensive disorder [email or web address] Not available 2023 17:59:04 Mother Hypercholest erolemia [email or web address] Not available 2023 17:59:04 Brother Family history of malignant neoplasm [email or web address] Not available 2023 17:59:04 Brother Diabetes mellitus [email or web address] Not available 2023 17:59:04 Brother Hypertensive disorder [email or web address] Not available 2023 17:59:04 Unspecified Relation Cerebrovascu lar accident [email or web address] Not available 05/2024 17:59:04 Medical History Condition Response Diabetes Y Anxiety Disorder N Bleeding Disorder N Attention-deficit Hyperactivity Disorder N High Blood Pressure Y Arthritis Y Hyperlipidemia N Cancer N Thyroid Problems N Stroke Y Asthma N COPD N Depression N Anemia N Seizures N Heart Disease N Fibromyalgia N Osteoporosis N Kidney Disease N Gynecological HistoryNo gynecological history recorded. Obstetrics History GPAL:G 0 P 0 0 0 0 Past Encounters Encounter ID Performer Location Encounter Start Date Encounter Closed Date Diagnosis/Indication Diagnosis SNOMED-CT Code Diagnosis ICD10 Code [id number] Omayra Gallardo MD [address] [facility] ([place]) [address] [place] [phone] 11/23/2023 11:02:53 11/25/2023 10:43:46 Ischemic stroke 208380289 I63.9 Smoker 45160857 F17.200 Labile ess ential hypertension 944627991 I10 Familial hypercholesterolemia 038849593 E78.01 Type 2 essence betes mellitus 05536044 E11.9 Health Concerns Section Related Observation LastModified by Organization Detai ls LastModified Time None Recorded Concern Status LastModified by Organization Details LastModified Time None Recorded Advance Directives Directive N: Payers Encounter Date Sequence Insurance Name Policy Number Policy Morgan Covered Member ID Morgan Member ID Guarantor Name 11/23/2023 1 [facility] (O) Senia Ruth [id number] Senia Ruth Notes Date Note Type Note Provider Name and Address Organization Details Recorded Time 11/23/2023 text/html The patient is a 62-year-old right-handed female who presents today for evaluation after a stroke. I talked her to primary care physician on Thursday. The patient states that she was in [place] for several months as well this winter. While there, she had a headache. She states that this started in her neck and then it radiated to behind her eyes. She thought it was due to her sinuses and she took some sinus medications. After a week, the headache resolved. This was in August or September. They got home the first week of October. The 2nd week of October she started having pain in her left frontal region. She states when she woke up one morning, she had difficulties looking at the digital clock. She states that her vision was very blurry. It has persisted since then. She has seen her eye doctor 3 days before the onset of these symptoms. Her primary care physician eventually ordered an MRI scan of the brain which was personally reviewed by me. She has a medium-sized infarct in the left occipital lobe. This is acute. She also has a large, chronic infarct in the right frontoparietal region and left a small chronic infarct in the left frontal lobe. The patient admits that she gets numbness and tingling in her toes when she is lying in bed. She denies any double vision, dysphasia or dysarthria. She denies any vertigo. She has weakness due to rheumatoid arthritis. She was on aspirin 81 mg daily for a few years. Her primary care physician added Plavix, 75 mg daily after the MRI. She has high blood pressure, high cholesterol, diabetes and she smokes. She is scheduled for a CTA tomorrow and a nurse monitoring placement on . There are apparently plans to do an echocardiogram. In addition to the 3 strokes, she also has extensive white matter ischemic disease throughout the brain. She does not exercise regularly. She does not like fruits. The patient saw a chiropractor once or twice before the onset of the blurry vision due to neck pain. The blurry vision is not worse in either eye or in any particular part of her visual field. Further recommendations after all the tests. She had blood work including a sedimentation rate which was normal at 6. Hemoglobin A1c was 6.2.aylin Gallardo MD [address] [place] [address], [phone], [facility] 11/24/2023 23:44:51 OBGyn Episode No OBEpisode recorded.
--- OUTSIDE RECORDS SUMMARY | 2024-06-28 21:39 | XMS_ITS | Encounter Summary ---
Author Organization [facility] Health Address [address] [place] [address] Care Team Providers Care Group Insurance Special Agent Name Role Phone Unavailable Primary Care Provider Unavailabl e Reason for Visit * Reason Onset Date Comments MEDICATION REFILL 02/25/2011 Encounter Details Date Type Department Care Team (Late st Contact Info) Description 02/25/2011 [facility]ill [facility] - [facility] Medicine [id number] [place] [phone] Edward Miranda MD [address] [place] [id number] MEDICATION REFILL Social History Tobacco Use [...] this encounter Visit Diagnoses Diagnosis Rheumatoid arthritis(714.0) ([facility])- Primary Rheumatoid arthritis documented in this encounter
--- OUTSIDE RECORDS SUMMARY | 2024-06-28 21:39 | XMS_ITS | Encounter Summary ---
Author Organization [facility] Address [facility]6 [facility] [place] [place] [address] [place] [address] Care Team Providers Care Layout Technician Name Role Phone William Craig MD Primary Care Provider [phone] Judie Carnes MD Unavailable Reason for Visit * Reason Onset Date Comments Appointment Request 03/08/2024 Encounter Details Date Type Department Care Team (Late st Contact Info) Description 03/08/2024 Telephone [facility] [address] [place] [address] Judie Carnes MD [address] [place] [address] Appointment Request Social History Tobacco Use Types Packs/Day Years Used Date Smoking Tobacco: Former Cigarettes Comments Unknown Sex and Gender Information Value Date Recorded Sex Assigned at Not on file Legal Sex Female 1:48 PM CDT Gender Identity Not on file Sexual Orientation Not on file documented as of this encounter Progress Notes * Zuleyka Duffy - 03/08/2024 10:22 AM CDT I called patient's Oneil to scheduled EP consult. Appt scheduled in [place] tomorrow 03/09/24 at 1030. Patient confirmed. * Minh Pablo LPN - 03/08/2024 9:00 AM CDT Please schedule an appt for pt to see Dr. Holland for poss loop recorder. Please call pt's on his phone number ending in [phone]. See Dr Carnes's last clinic note for more info. Thanks! documented in this encounter Plan of Treatment Upcoming Encounters Date Type Department Care Team (Late st Contact Info) Description 01/17/2025 8:00 AM CDT Appointment [address] [place] [address] Judie Carnes MD [address] [place] [address] 01/20/2025 10:30 AM CDT Office Visit [facility] [address] [place] [phone] Judie Carnes MD [address] [place] [address] documented as of this encounter Visit Diagnoses Not on filedocumented in this encounter Care Teams Layout Technician Relationship Specialty Start Date End Date William Craig MD [address] [place] [address] PCP - General INTERNAL MEDICINE 01/15/24 Judie Carnes MD [address] [place] [address] [place] [employer] CARDIOVASCULAR DISEASE 01/15/24 documented as of this encounter
--- OUTSIDE RECORDS SUMMARY | 2024-06-28 21:39 | XMS_ITS | Encounter Summary ---
Author Organization [facility] Health Address [address] [facility] [place] [address] Care Team Providers Care Pipe Coverer Helper Name Role Phone Unavailable Primary Care Provider Unavailabl e Encounter Details Date Type Department Care Team (Late st Contact Info) Description 06/28/2008 Orders Only [facility] - Family Medicine [address] [place] [address] Edward Miranda MD [address] [place] [address] [phone] Social History Tobacco Use Types Packs/Day Years Used Date Smoking Tobacco: Never Assessed Sex and Gender Information Value Date Recorded Sex Assigned at Not on file Gender Identity Not on file Sexual Orientation Not on file documented as of this encounter Plan of Treatment Not on file documented as of this encounter Procedures Procedure Name Priority Date/Time Associated Diagnosis Comments C-REACTIVE PROTEIN 06/28/2008 10 :34 AM OPERATIONS RESEARCH GROUP MANAGER HEMOGLOBIN A1C 06/28/2008 10:34 AM OPERATIONS RESEARCH GROUP MANAGER ERYTHROCYTE SEDIMENTATION RATE 06/28/2008 10:34 AM OPERATIONS RESEARCH GROUP MANAGER CBC W AUTO DIFFERENTIAL 06/28/2008 10:34 AM OPERATIONS RESEARCH GROUP MANAGER COMPREHENSIVE METABOLIC PANEL 06/28/2008 10:34 AM OPERATIONS RESEARCH GROUP MANAGER documented in this encounter Results * C-REACTIVE PROTEIN (06/28/2008 10:34 AM OPERATIONS RESEARCH GROUP MANAGER) C-Reactive Protein 2.5 0.0 - 4.9 mg/L [facility] ACCOUNT BILL 06/28/2008 10:3 4 AM OPERATIONS RESEARCH GROUP MANAGER 06/28/2008 5:56 PM OPERATIONS RESEARCH GROUP MANAGER Narrative Resulting Agency Comment [facility] [address] ??[place] [phone] Edward Miranda MD LAB - CHEMISTRY ORD ERABLES [facility] ACCOUNT BILL * SED RATE WESTERGREN AUTO (06/28/2008 10:34 AM OPERATIONS RESEARCH GROUP MANAGER) Erythrocyte Sedimentation Rate Westergren 7 0 - 20 mm/hr [facility] ACCOUNT BILL 06/28/2008 10:3 4 AM OPERATIONS RESEARCH GROUP MANAGER 06/28/2008 5:56 PM OPERATIONS RESEARCH GROUP MANAGER Narrative Resulting Agency Comment [facility] [place] [address] ??[place] [phone] Edward Miranda MD LAB - HEMATOLOGY OR DERABLES Performing Organization Address City/[facility]/ZIP Co de Phone Number [facility] ACCOUNT BILL * HEMOGLOBIN A1C (06/28/2008 10:34 AM OPERATIONS RESEARCH GROUP MANAGER) Hemoglobin A1c 6.2 <7.0 % [facility] ACCOUNT BILL Comment: ?Diabetic Adult ?<7.0 ?Healthy Adult ?4.8 - 5.9 ?(DCCT/NGSP) ?Citizen Of [place] Diabetes Association's Summary of Glycemic ?Recommendations for Adults with Diabetes: ?Hemoglobin A1c <7.0%. More stringent glycemic goals ?(A1c <6.0%) may further reduce complications at the ?cost of increased risk of hypoglycemia. 06/28/2008 10:3 4 AM OPERATIONS RESEARCH GROUP MANAGER 06/28/2008 5:56 PM OPERATIONS RESEARCH GROUP MANAGER Narrative Resulting Agency Comment [facility] [address] [facility] ??[facility] [phone] Edward Miranda MD LAB - CHEMISTRY ORD ERABLES [facility] ACCOUNT BILL * (ABNORMAL) COMPREHENSIVE METABOLIC PANEL (06/28/2008 10:34 AM OPERATIONS RESEARCH GROUP MANAGER) Glucose 117(H) 65 - 99 mg/dL [facility] ACCOUNT BILL BUN 13 5 - 26 mg/dL [facility] ACCOUNT BILL [...] BUN/Creatinine Ratio 16 8 - 27 [facility] ACCOUNT BILL Sodium [...] - 150 IU/L [facility] ACCOUNT BILL AST 22 0 - 40 IU/L [facility] ACCOUNT BILL ALT 25 0 - 40 IU/L [facility] ACCOUNT BILL 06/28/2008 10:3 4 AM OPERATIONS RESEARCH GROUP MANAGER 06/28/2008 5:56 PM OPERATIONS RESEARCH GROUP MANAGER Narrative Resulting Agency Comment [facility] [address] ??[facility] [phone] Edward Miranda MD LAB - CHEMISTRY ORD ERABLES [facility] ACCOUNT BILL * CBC W AUTO DIFFERENTIAL (06/28/2008 10:34 AM OPERATIONS RESEARCH GROUP MANAGER) WBC 5.2 4.0 - 10.5 x10E3/uL [facility] ACCOUNT BILL RBC 4.19 3.80 - 5.10 x10E6/uL [facility] ACCOUNT BILL Hemoglobin 13.1 11.5 - 15.0 g/dL [facility] ACCOUNT BILL Hematocrit 38.1 34.0 - 44.0 % [facility] ACCOUNT BILL MCV 91 80 - 98 fL [facility] ACCOUNT BILL MCH 31.3 27.0 - 34.0 pg [facility] ACCOUNT BILL MCHC 34.5 32.0 - 36.0 g/dL [facility] ACCOUNT BILL RDW 14.2 11.7 - 15.0 % [facility] ACCOUNT BILL Platelet Count 305 140 - 415 x10E3/uL [facility] ACCOUNT BILL Granulocytes % 70 40 - 74 % [facility] ACCOUNT BILL Lymphocytes % 22 14 - 46 % [facility] ACCOUNT BILL Monocytes % 6 4 - 13 % [facility] ACCOUNT BILL Eosinophils % 2 0 - 7 % [facility] ACCOUNT BILL Basophils % 0 0 - 3 % [facility] ACCOUNT BILL Granulocytes Absolute 3.6 1.8 - 7.8 x10E3/uL [facility] ACCOUNT BILL Lymphocytes Absolute 1.1 0.7 - 4.5 x10E3/uL [facility] ACCOUNT BILL Monocytes Absolute 0.3 0.1 - 1.0 x10E3/uL [facility] ACCOUNT BILL Eosinophils Absolute 0.1 0.0 - 0.4 x10E3/uL [facility] ACCOUNT BILL Basophils Absolute 0.0 0.0 - 0.2 x10E3/uL [facility] ACCOUNT BILL Comment Hematology NOT AVAIL. [facility] ACCOUNT BILL 06/28/2008 10:3 4 AM OPERATIONS RESEARCH GROUP MANAGER 06/28/2008 5:56 PM OPERATIONS RESEARCH GROUP MANAGER Narrative [facility] ACCOUNT BILL - 06/29/2008 9:31 AM OPERATIONS RESEARCH GROUP MANAGER Additional Result Information HEMATOLOGY COMMENTS: ??BLOOD,URINE ([facility]): RESULT NOT AVAILABLE Resulting Agency Comment [facility] [address] ??[facility] [phone] Edward Miranda MD LAB - HEMATOLOGY OR DERABLES [facility] ACCOUNT BILL documented in this encounter Visit Diagnoses Not on filedocumented in this encounter
--- OUTSIDE RECORDS SUMMARY | 2024-06-28 21:39 | XMS_ITS | Encounter Summary ---
Author Organization [facility] Address [address] [place] [place] [address] Care Team Providers Care Hotel Guest Service Agent Name Role Phone Edward Miranda MD Unavailable [phone] Reason for Visit * Reason Comments Follow-up ra Encounter Details Date Type Department Care Team (Late st Contact Info) Description 04/13/2012 3:15 PM CDT Office Visit [facility] - Rheumatology [address] [place] [address] [phone] Edward Miranda MD [address] [place], [place] [id number] Rheumatoid arthritis (HCC) (Primary Dx); Sinusitis acute Social History Tobacco Use Types Packs/Day Years [...] (140 lb) 04/13/2012 3:27 PM CDT Height - - Body Mass Index 24.8 10/27/2008 10:24 AM CDT documented in this encounter Progress Notes * Edward Miranda MD - 04/19/2012 7:32 AM CDTQuick Note: mtx ok * Edward Miranda MD - 04/13/2012 3:47 PM CDT Subjective: Senia Ruth 51 y.o. female is here for Chief Complaint Patient presents with ??? Follow-up ra Current Outpatient Prescriptions on File Prior to Visit Medication Sig Dispense Refill ??? methotrexate 2.5 MG tablet Take 4 Tabs by mouth every 7 days. 16 Tab 5 ??? NASONEX 50 MCG/ACT SUSP [place] 1 [place] into each nostril daily. Prn in the am ??? metoprolol (LOPRESSOR) 10 mg/ml Take by mouth daily. Patient Active Problem List Diagnoses ??? Rheumatoid Arthritis ??? Back Pain ??? Screening cholesterol level ??? HTN (hypertension) ??? Hyperlipidemia History Smoking status ??? Former Smoker ??? Quit date: 10/27/2006 Smokeless tobacco ??? Not on file History Alcohol Use ??? Yes social History Drug Use No on mtx for ra Pain Level: 2/10 hands knees Am stiffness 5 min Global 2/10 Fatigue yes Medication Side Effects no Review of Systems: General: No fever, chills, sweats, weight loss Eyes: No redness, discharge, blurred vision ENMT: No ear ache, loss of hearing, runny nose, sore gums, ulcers, sore thorat CV: No chest pain, palpitations, orthopnea, syncope Resp: No shortness of breath, pleurisy, wheezing GI No nausea vomiting, abdominal pain, weight loss, anorexia, gerd, melena, diarrhea No nocturia, dysuria, frequency, urgency, kidney stones. MS: NEURO: No headaches, seizures, dizziness, confusion, numbness, tingling HEME/LYMPH: No bruising or bleeding, swollen glands SKIN: No rash, itching, dry skin ENDO No Heat or cold intol, no hyper or hypoglycemia PSYCH: No memory loss, disorientation, confusion, mood changes, ALLERGY/IMMU she has sinus drainage with cough Systems reviewed genl heart lungs allergy Objective: General Appearance Physical Exam:wd wn wf in nad a/o Gait ok BP 148/90 Pulse 76 Wt 140 lb (63.504 kg) Head: perrla, eyes no irritation, vision and hearing intact, no oral ulcers, oral mucosa and tonguenormal, throat lots of sinus drainage Neck:supple, no bruits, adenopathy Chest: clear, no rales, rhonchi or wheezes. Heart nsr. No S3,S4, or murmurs Abdomen:soft, no masses or tenderness, no organomegaly Genitalia, Groin, Buttocks: Back: no abnormal curvature, tenderness, or muscle spasm Extremities: No edema, cyanosis, or rash RUE: 0/TJ, 0/SJ, 0/muscle tenderness or weakness LUE: 0/TJ, 0/SJ, 0/muscle tenderness or weakness RLE: 0/TJ, 0/SJ, 0/muscle tenderness or weakness LLE: 0/TJ, 0/SJ, 0/muscle tenderness or weakness Assessment: Encounter Diagnoses Name Primary? Rheumatoid arthritis Yes ??? Sinusitis acute ra stable same meds zpak for sinusitis Plan: Plan Orders Placed This Encounter ??? CBC W AUTO DIFFERENTIAL ??? COMPREHENSIVE METABOLIC PANEL ??? C-REACTIVE PROTEIN ??? SED RATE WESTERGREN ??? azithromycin (ZITHROMAX) 250 mg yair Sig: Take by mouth. 2 tablets day 1, then 1 tablet daily for 4 days Dispense: 1 Kit Refill: 0 Follow up in office in 4 mo * Deepali Castellon MA - 04/13/2012 3:27 PM CDT Chief Complaint Patient presents with ??? Follow-up ra BP 148/90 Pulse 76 Wt 140 lb (63.504 kg) documented in this encounter Plan of Treatment Not on file documented as of this encounter Procedures Procedure Name Priority Date/Time Associated Diagnosis Comments C-REACTIVE PROTEIN Routine 04/13/2012 3: 56 PM CDT Rheumatoid arthritis (HCC) ERYTHROCYTE SEDIMENTATION RATE Routine 04/13/2012 3:56 PM CDT Rheumatoid arthritis (HCC) CBC W AUTO DIFFERENTIAL Routine 04/13/2012 3:56 PM CDT Rheumatoid arthritis (HCC) COMPREHENSIVE METABOLIC PANEL Routine 04/13/2012 3:56 PM CDT Rheumatoid arthritis (HCC) documented in this encounter Results * SED RATE WESTERGREN (04/13/2012 3:56 PM CDT) Erythrocyte Sedimentation Rate Westergren 10 0 - 40 mm/hr [facility] ACCOUNT BILL Blood specimen (specimen) BLOOD SPECIMEN / Unknown 04/13/2012 3:56 PM CDT 04/13/2012 9:13 PM CDT Narrative Resulting Agency Comment [facility] [address] ??[facility] [phone] Edward Miranda MD LAB - HEMATOLOGY OR DERABLES Performing Organization Address City/[facility]/ZIP Co de Phone Number [facility] ACCOUNT BILL * C-REACTIVE PROTEIN (04/13/2012 3:56 PM CDT) C-Reactive Protein 2.9 0.0 - 4.9 mg/L [facility] ACCOUNT BILL Blood specimen (specimen) BLOOD SPECIMEN / Unknown 04/13/2012 3:56 PM CDT 04/13/2012 9:13 PM CDT Narrative Resulting Agency Comment [facility] ??[facility] [phone] Edward Miranda MD LAB - CHEMISTRY ORD ERABLES [facility] ACCOUNT BILL * (ABNORMAL) COMPREHENSIVE METABOLIC PANEL (04/13/2012 3:56 PM CDT) Glucose 110(H) 65 - 99 mg/dL [facility] ACCOUNT BILL BUN 14 6 - 24 mg/dL [facility] ACCOUNT BILL Creatinine 0.77 0.57 - 1.00 mg/dL [facility] ACCOUNT BILL eGFR by MDRD 90 >59 mL/min/1.7 3 [facility] ACCOUNT BILL eGFR by MDRD 103 >59 mL/min/1.7 3 [facility] ACCOUNT BILL BUN/Creatinine Ratio 18 9 - 23 [facility] ACCOUNT BILL Sodium 139 134 - 144 mmol/L [facility] ACCOUNT BILL Potassium 4.2 3.5 - 5.2 mmol/L [facility] ACCOUNT BILL Chloride 103 97 - 108 mmol/L [facility] ACCOUNT BILL CO2 22 20 - 32 mmol/L [facility] ACCOUNT BILL Calcium 9.8 8.7 - 10.2 mg/dL [facility] ACCOUNT BILL Protein Total 7.0 6.0 - 8.5 g/dL [facility] ACCOUNT BILL [...] Blood specimen (specimen) BLOOD SPECIMEN / Unknown 04/13/2012 3:56 PM CDT 04/13/2012 9:13 PM CDT Narrative Resulting Agency Comment [facility] [address] ??[facility] [phone] Edward Miranda MD LAB - CHEMISTRY ORD ERABLES [facility] ACCOUNT BILL * CBC W AUTO DIFFERENTIAL (04/13/2012 3:56 PM CDT) WBC 5.9 4.0 - 10.5 x10E3/uL [facility] ACCOUNT BILL RBC 4.46 3.77 - 5.28 x10E6/uL [facility] ACCOUNT BILL Hemoglobin 13.5 11.1 - 15.9 g/dL [facility] ACCOUNT BILL Hematocrit 41.1 34.0 - 46.6 % [facility] ACCOUNT BILL MCV 92 79 - 97 fL [facility] ACCOUNT BILL MCH 30.3 26.6 - 33.0 pg [facility] ACCOUNT BILL MCHC 32.8 31.5 - 35.7 g/dL [facility] ACCOUNT BILL RDW 14.6 12.3 - 15.4 % [facility] ACCOUNT BILL Platelet Count 289 140 - 415 x10E3/uL [facility] ACCOUNT BILL Granulocytes % 62 40 - 74 % [facility] ACCOUNT [...] the test is not needed Granulocytes Absolute 3.7 1.8 - 7.8 x10E3/uL [facility] ACCOUNT BILL Lymphocytes Absolute 1.7 0.7 - 4.5 x10E3/uL [facility] ACCOUNT BILL [...] Blood specimen (specimen) BLOOD SPECIMEN / Unknown 04/13/2012 3:56 PM CDT 04/13/2012 9:13 PM CDT Narrative Resulting Agency Comment [facility] [address] ??[facility] [phone] Edward Miranda MD LAB - HEMATOLOGY OR DERABLES [facility] ACCOUNT BILL documented in this encounter Visit Diagnoses Diagnosis Rheumatoid arthritis(714.0) ([facility])- Primary Rheumatoid arthritis Sinusitis acute Acute sinusitis, unspecified documented in this encounter Care Teams Hotel Guest Service Agent Relationship Specialty Start Date End Date Edward Miranda MD Rheumatology 06/24/11 documented as of this encounter
--- OUTSIDE RECORDS SUMMARY | 2024-06-28 21:39 | XMS_ITS | Encounter Summary ---
Author Organization [facility] Address [address] [place] [address] Care Team Providers Care Pilot Plant Operator Name Role Phone Unavailable Primary Care Provider Unavailabl e Reason for Visit * Reason Onset Date Comments Request Lab Order 12/27/2009 Encounter Details Date Type Department Care Team (Late st Contact Info) Description 12/27/2009 Telephone [facility] - Rheumatology [address] [place] [address] [phone] Edward Miranda MD [address] [place] [address] Request Lab Order Social History Tobacco Use Types Packs/Day Years Used Date Smoking Tobacco: Former Cigarettes Q uit: 10/27/2006 Alcohol Use Standard Drinks/Week Comments Yes 0 (1 standard drink = 0.6 oz pur e alcohol) social Sex and Gender Information Value Date Recorded Sex Assigned at Not on file Gender Identity Not on file Sexual Orientation Not on file documented as of this encounter Miscellaneous Notes * Telephone Encounter - Deepali Castellon MA - 12/27/2009 3:46 PM CDT New orders for standing order; CBC, CMP faxed to [facility] [phone] * Telephone Encounter - Nicci Kruger - 12/27/2009 3:00 PM CDT [facility] called and to report that pt left and didn't get CBC/CMD cause she couldn't wait any longer. They stated that they called earlier for the orders. * Telephone Encounter - Lilly Kennedy - 12/27/2009 1:48 PM CDT [facility] called in. Patient has a standing order in place for CBC and CMP. They are needing a new order though the last one was back in 10/27/08. Please fax over to [phone] documented in this encounter Plan of Treatment Scheduled Orders Name Type Priority Associated Diagnoses Orde r Schedule CBC W AUTO DIFFERENTIAL Lab Routine Rheumatoid Arthritis (HCC) Ordered: 12/27/2009 COMPREHENSIVE METABOLIC PANEL Lab Routine Rheumatoid Arthritis (HCC) Ordered: 12/27/2009 documented as of this encounter Visit Diagnoses Diagnosis Rheumatoid arthritis(714.0) ([facility])- Primary Rheumatoid arthritis documented in this encounter
--- OUTSIDE RECORDS SUMMARY | 2024-06-28 21:39 | XMS_ITS | Patient Health Summary ---
Author Organization [facility] Address [address] [place] [address] Care Team Providers Care Hand Tapper Name Role Phone Edward Miranda MD Unavailable [phone] Note from [facility],non-owned Affiliates and Associated Physician Practices is amultiple site organization consisting of ambulatory clinics and hospital sitesin [place], [place], [place] and [place]. This disclosure is being madepursuant to the Care Everywhere program and may not contain all information available regarding this patient. Last updated 18.[facility] Allergies * Lisinopril(Cough) Medications * Be aware that medications may not be up to date on this document. Alwaysverify current medications with the patient. * NASONEX 50 MCG/ACT SUSP [place] 1 [place] into each nostril daily. Prn in the am * metoprolol (LOPRESSOR) 10 mg/ml Take by mouth daily. * methotrexate 2.5 MG tablet(Started 03/16/2012) Take 4 Tabs by mouth every 7 days. 5 refills left * azithromycin (ZITHROMAX) 250 mg yair(Started 04/13/2012) Take by mouth. 2 tablets day 1, then 1 tablet daily for 4 days Active Problems Problem Noted Date Diagnosed Date Hyperlipidemia 02/26/2011 Screening cholesterol level 11/06/2010 Rheumatoid arthritis 10/24/2008 Back pain 10/24/2008 HTN (hypertension) 02/26/2007 Social [...] Mass Index 24.8 10/27/2008 10:24 AM CDT Procedures * IMAGING/RADIOLOGY/XRAY RESULTS ORDER(Performed 02/01/2024) * FLOW CYTOMETRY BODY FLUID(Performed 09/23/2018) * ERYTHROCYTE SEDIMENTATION RATE(Performed 04/13/2012) Performed for Rheumatoid arthritis ([facility]) * C-REACTIVE PROTEIN(Performed 04/13/2012) Performed for Rheumatoid arthritis ([facility]) * COMPREHENSIVE METABOLIC PANEL(Performed 04/13/2012) Performed for Rheumatoid arthritis ([facility]) * CBC W AUTO DIFFERENTIAL(Performed 04/13/2012) Performed for Rheumatoid arthritis ([facility]) * LAB RESULTS ORDER(Performed 01/02/2012) * ERYTHROCYTE SEDIMENTATION RATE(Performed 01/01/2012) * COMPREHENSIVE METABOLIC PANEL(Performed 01/01/2012) * CBC W AUTO DIFFERENTIAL(Performed 01/01/2012) * ERYTHROCYTE SEDIMENTATION RATE(Performed 10/29/2011) Performed for Rheumatoid arthritis ([facility]) * COMPREHENSIVE METABOLIC PANEL(Performed 10/29/2011) Performed for Rheumatoid arthritis ([facility]) * CBC W AUTO DIFFERENTIAL(Performed 10/29/2011) Performed for Rheumatoid arthritis ([facility]) * ERYTHROCYTE SEDIMENTATION RATE(Performed 09/08/2011) * COMPREHENSIVE METABOLIC PANEL(Performed 09/08/2011) * CBC W AUTO DIFFERENTIAL(Performed 09/08/2011) * ERYTHROCYTE SEDIMENTATION RATE(Performed 06/25/2011) Performed for Rheumatoid arthritis ([facility]) * CBC W AUTO DIFFERENTIAL(Performed 06/25/2011) Performed for Rheumatoid arthritis ([facility]) * C-REACTIVE PROTEIN(Performed 06/25/2011) Performed for Rheumatoid arthritis ([facility]) * COMPREHENSIVE METABOLIC PANEL(Performed 06/25/2011) Performed for Rheumatoid arthritis ([facility]) * ERYTHROCYTE SEDIMENTATION RATE(Performed 05/07/2011) * COMPREHENSIVE METABOLIC PANEL(Performed 05/07/2011) * CBC W AUTO DIFFERENTIAL(Performed 05/07/2011) * ERYTHROCYTE SEDIMENTATION RATE(Performed 02/26/2011) Performed for Rheumatoid arthritis ([facility]) * C-REACTIVE PROTEIN(Performed 02/26/2011) Performed for Rheumatoid arthritis (HCC) * COMPREHENSIVE METABOLIC PANEL(Performed 02/26/2011) Performed for Rheumatoid arthritis ([facility]) * CBC W AUTO DIFFERENTIAL(Performed 02/26/2011) Performed for Rheumatoid arthritis ([facility]) * ERYTHROCYTE SEDIMENTATION RATE(Performed 01/02/2011) * CBC W AUTO DIFFERENTIAL(Performed 01/02/2011) * COMPREHENSIVE METABOLIC PANEL(Performed 01/02/2011) * C-REACTIVE PROTEIN(Performed 11/06/2010) Performed for Rheumatoid arthritis ([facility]) * VITAMIN D 25-HYDROXY(Performed 11/06/2010) Performed for Vitamin D deficiency * ERYTHROCYTE SEDIMENTATION RATE(Performed 11/06/2010) Performed for Rheumatoid arthritis ([facility]) * LIPID PROFILE W LDL/HDL RATIO(Performed 11/06/2010) Performed for Screening cholesterol level * COMPREHENSIVE METABOLIC PANEL(Performed 11/06/2010) Performed for Rheumatoid arthritis ([facility]) * CBC W AUTO DIFFERENTIAL(Performed 11/06/2010) Performed for Rheumatoid arthritis ([facility]) * COMPREHENSIVE METABOLIC PANEL(Performed 08/30/2010) Performed for Rheumatoid arthritis ([facility]) * CBC W AUTO DIFFERENTIAL(Performed 08/30/2010) Performed for Rheumatoid arthritis ([facility]) * ERYTHROCYTE SEDIMENTATION RATE(Performed 06/19/2010) Performed for Rheumatoid arthritis ([facility]) * C-REACTIVE PROTEIN(Performed 06/19/2010) Performed for Rheumatoid arthritis ([facility]) * COMPREHENSIVE METABOLIC PANEL(Performed 06/19/2010) Performed for Rheumatoid arthritis ([facility]) * CBC W AUTO DIFFERENTIAL(Performed 06/19/2010) Performed for Rheumatoid arthritis ([facility]) * ERYTHROCYTE SEDIMENTATION RATE(Performed 02/20/2010) Performed for Rheumatoid Arthritis ([facility]) * COMPREHENSIVE METABOLIC PANEL(Performed 02/20/2010) Performed for Rheumatoid Arthritis ([facility]) * C-REACTIVE PROTEIN(Performed 02/20/2010) Performed for Rheumatoid Arthritis ([facility]) * CBC W AUTO DIFFERENTIAL(Performed 02/20/2010) Performed for Rheumatoid Arthritis ([facility]) * LAB RESULTS ORDER(Performed 12/28/2009) * COMPREHENSIVE METABOLIC PANEL(Performed 12/27/2009) * CBC W AUTO DIFFERENTIAL(Performed 12/27/2009) * CBC W AUTO DIFFERENTIAL(Performed 10/24/2009) * ERYTHROCYTE SEDIMENTATION RATE(Performed 10/24/2009) Performed for Rheumatoid Arthritis ([facility]) * C-REACTIVE PROTEIN(Performed 10/24/2009) Performed for Rheumatoid Arthritis ([facility]) * COMPREHENSIVE METABOLIC PANEL(Performed 10/24/2009) Performed for Rheumatoid Arthritis (HCC) * ERYTHROCYTE SEDIMENTATION RATE(Performed 08/31/2009) Performed for Rheumatoid Arthritis (HCC) * ERYTHROCYTE SEDIMENTATION RATE(Performed 06/27/2009) * C-REACTIVE PROTEIN(Performed 06/27/2009) Performed for Rheumatoid Arthritis (HCC) * COMPREHENSIVE METABOLIC PANEL(Performed 06/27/2009) Performed for Rheumatoid Arthritis (HCC) * CBC W AUTO DIFFERENTIAL(Performed 06/27/2009) Performed for Rheumatoid Arthritis (HCC) * COMPREHENSIVE METABOLIC PANEL(Performed 04/26/2009) * CBC W AUTO DIFFERENTIAL(Performed 04/26/2009) * ERYTHROCYTE SEDIMENTATION RATE(Performed 02/28/2009) Performed for Rheumatoid Arthritis (HCC) * C-REACTIVE PROTEIN(Performed 02/28/2009) Performed for Rheumatoid Arthritis (HCC) * COMPREHENSIVE METABOLIC PANEL(Performed 02/28/2009) Performed for Rheumatoid Arthritis (HCC) * CBC W AUTO DIFFERENTIAL(Performed 02/28/2009) Performed for Rheumatoid Arthritis (HCC) * COMPREHENSIVE METABOLIC PANEL(Performed 12/28/2008) * CBC W AUTO DIFFERENTIAL(Performed 12/28/2008) * ERYTHROCYTE SEDIMENTATION RATE(Performed 10/27/2008) Performed for Rheumatoid Arthritis (HCC) * C-REACTIVE PROTEIN(Performed 10/27/2008) Performed for Rheumatoid Arthritis (HCC) * COMPREHENSIVE METABOLIC PANEL(Performed 10/27/2008) Performed for Rheumatoid Arthritis (HCC) * CBC W AUTO DIFFERENTIAL(Performed 10/27/2008) Performed for Rheumatoid Arthritis (HCC) * COMPREHENSIVE METABOLIC PANEL(Performed 09/05/2008) * CBC W AUTO DIFFERENTIAL(Performed 09/05/2008) * C-REACTIVE PROTEIN(Performed 06/28/2008) * ERYTHROCYTE SEDIMENTATION RATE(Performed 06/28/2008) * HEMOGLOBIN A1C(Performed 06/28/2008) * COMPREHENSIVE METABOLIC PANEL(Performed 06/28/2008) * CBC W AUTO DIFFERENTIAL(Performed 06/28/2008) Results * IMAGING RADIOLOGY XRAY RESULTS ORDER (02/01/2024) Anatomical Region Laterality Modality Other 02/01/2024 Narrative 02/01/2024 Ordered by an unspecified provider. Scanned Document IMAGING * FLOW CYTOMETRY BODY FLUID (09/23/2018 9:15 AM CDT) Case Report Flow Cytometry ?Case: [id number] ? Authorizing Provider: ??Arpan Kelly MD ?Collected: ? 09/23/2018 09:15 AM ? Pathologist: ? Lisa Chang MD ?? Received: ?09/23/2018 11:27 AM ? Specimen: ?Body Fluid , Right Breast Fluid ? 09/23/2018 1:58 PM [facility] Final Diagnosis Right breast fluid, flow cytometric immunophenotypic analysis: - Insufficient hematopoietic cells for analysis. - See interpretation. 09/23/2018 1:58 PM [facility] Flow Cytometry Interpretation Preliminary characterization of the right breast fluid specimen demonstrates too few hematopoietic cells for flow cytometric analysis. A cytospin prepared from the flow cytometry specimen is reviewed for quality supervisor purposes. Flow cytometry is not performed. KR/NW 09/23/2018 1:58 PM [facility] Flow Cytometry Results Insufficient cells are available for analysis. 09/23/2018 1:58 PM [facility] Client Specimen ID # [id number] 09/23/2018 1:58 PM [facility] Disclaimer Test performed at [facility], [address] [place] [address], [id number]. *The established laboratory minimum viability is 70%. Values below the minimum may result in the failure to find an abnormal population of cells. This test was developed and its performance characteristics determined by the Flow Cytometry Laboratory. It has not been cleared by the [place] Food and Drug Administration (FDA). The FDA has determined that such clearance or approval is not necessary. This test is used for clinical purposes. It should not be regarded as investigational or for research. This laboratory is regulated under the Clinical Laboratory Improvement Amendments of 1998 (CLIA) as a qualified to perform high complexity clinical testing. 09/23/2018 1:58 PM CDT [facility] Embedded Images 1:58 PM CDT [facility] Fluid BODY FLUID SPECIMEN / Unknown 09/23/2018 9:15 AM CDT 09/23/2018 11:27 AM CDT Arpan Kelly MD LAB - PATHOLOGY/CYTO LOGY ORDERABLES Performing Organization Address City/[facility]/ZIP Co de Phone Number [facility] [address] [phone] * C-REACTIVE PROTEIN (04/13/2012 3:56 PM CDT) Only the most recent of11 resultswithin the time period is included. C-Reactive Protein 2.9 0.0 - 4.9 mg/L [facility] ACCOUNT BILL Blood specimen (specimen) BLOOD SPECIMEN / Unknown 04/13/2012 3:56 PM CDT 04/13/2012 9:13 PM CDT Narrative Resulting Agency Comment [facility] ??[facility] [phone] Edward Miranda MD LAB - CHEMISTRY ORD ERABLES [facility] ACCOUNT BILL * SED RATE WESTERGREN (04/13/2012 3:56 PM CDT) Only the most recent of17 resultswithin the time period is included. Erythrocyte Sedimentation Rate Westergren 10 0 - 40 mm/hr [facility] ACCOUNT BILL Blood specimen (specimen) BLOOD SPECIMEN / Unknown 04/13/2012 3:56 PM CDT 04/13/2012 9:13 PM CDT Narrative Resulting Agency Comment [facility] [address] ??[facility] [phone] Edward Miranda MD LAB - HEMATOLOGY OR DERABLES [facility] ACCOUNT BILL * CBC W AUTO DIFFERENTIAL (04/13/2012 3:56 PM CDT) Only the most recent of21 resultswithin the time period is included. WBC 5.9 4.0 - 10.5 x10E3/uL [facility] [...] PM CDT Narrative Resulting Agency Comment [facility] [address] ??[facility] [phone] Edward Miranda MD LAB - HEMATOLOGY OR DERABLES [facility] ACCOUNT BILL * (ABNORMAL) COMPREHENSIVE METABOLIC PANEL (04/13/2012 3:56 PM CDT) Only the most recent of21 resultswithin the time period is included. Glucose 110(H) 65 - 99 mg/dL [facility] [...] 9:13 PM CDT Narrative Resulting Agency Comment [facility] [place] [phone] [facility] ??[facility] [phone] Edward iMranda MD LAB - CHEMISTRY ORD ERABLES Performing Organization Address City/[facility]/ZIP Co de Phone Number [facility] ACCOUNT BILL * LAB RESULTS ORDER (01/02/2012) Only the most recent of2 resultswithin the time period is included. Edward Miranda MD LAB - THERAPEUTIC D RUG MONITORING ORDERABLES * (ABNORMAL) LIPID PROFILE W LDL/HDL (PO [...] 5:53 PM CDT Narrative Resulting Agency Comment [facility] [place] [id number] [facility] ??[facility] [phone] Edward Miranda MD LAB - CHEMISTRY ORD [...] 5:53 PM CDT Narrative Resulting Agency Comment [facility] [address] ??[place] [id number] Edward Miranda MD LAB - CHEMISTRY ORD ERABLES [facility] ACCOUNT BILL * HEMOGLOBIN A1C (06/28/2008 10:34 AM RHEUMATOLOGY SPECIALIST) Hemoglobin A1c 6.2 <7.0 % [facility] ACCOUNT BILL Comment: ?Diabetic Adult ?<7.0 ?Healthy Adult ?4.8 - 5.9 ?(DCCT/NGSP) ?[place] Diabetes Association's Summary of Glycemic ?Recommendations for Adults with Diabetes: ?Hemoglobin A1c <7.0%. More stringent glycemic goals ?(A1c <6.0%) may further reduce complications at the ?cost of increased risk of hypoglycemia. 06/28/2008 10:3 4 AM RHEUMATOLOGY SPECIALIST 06/28/2008 5:56 PM RHEUMATOLOGY SPECIALIST Narrative Resulting Agency Comment [facility] [address] ??[facility] [phone] Edward Miranda MD LAB - CHEMISTRY ORD ELIO [facility] ACCOUNT BILL Care Teams Hand Tapper Relationship Specialty Start Date End Date Edward Miranda MD Rheumatology 06/24/11
--- OUTSIDE RECORDS SUMMARY | 2024-06-28 21:39 | XMS_ITS | Encounter Summary ---
Author Organization [facility] Address [address] [place] [address] Care Team Providers Care Hand Twister Name Role Phone Edward Miranda MD Unavailable [phone] Reason for Visit * Reason Onset Date Comments MEDICATION REFILL 03/16/2012 Encounter Details Date Type Department Care Team (Late st Contact Info) Description 03/16/2012 Refill [facility] - Rheumatology [address] [place] [address] Edward Miranda MD [address] [place] [address] MEDICATION REFILL Social History Tobacco Use Types [...] encounter Visit Diagnoses Diagnosis Rheumatoid arthritis(714.0) ([facility])- Primary Rheumatoid arthritis documented in this encounter Care Teams Hand Twister Relationship Specialty Start Date End Date Edward Miranda MD Rheumatology 06/24/11 documented as of this encounter
--- OUTSIDE RECORDS SUMMARY | 2024-06-28 21:39 | XMS_ITS | Encounter Summary ---
Author Organization [facility] Address [address] [place] [address] [place] [address] Care Team Providers Care Remote Sensing Surveyor Name Role Phone Unavailable Primary Care Provider Unavailabl e Reason for Visit * Reason Comments Follow-up ra Dizziness wants her ears check , Sx for few days, no drainage, no cold, no morris Encounter Details Date Type Department Care Team (Late st Contact Info) Description 02/26/2011 10:15 AM CDT Office Visit [facility] - Rheumatology [address] [place] [address] [phone] Edward Miranda MD [address] [place] [phone] Rheumatoid arthritis (HCC) (Primary Dx); Hyperlipidemia Social History Tobacco Use Types Packs/Day Years [...] Sign Reading Time Taken Comments Blood Pressure 160/80 02/26/2011 10:39 AM CDT Pulse 80 02/26/2011 10:39 AM CDT Temperature - - Respiratory Rate - - Oxygen Saturation - - Inhaled Oxygen Concentration - - Weight 61.2 kg (135 lb) 02/26/2011 10:39 AM CDT Height - - Body Mass Index 23.91 10/27/2008 10:24 AM CDT documented in this encounter Progress Notes * Edward Miranda MD - 03/21/2011 5:08 PM CDT She did not tell me about any dizzyness And her ears are clear * Edward Miranda MD - 03/03/2011 6:08 AM CDTQuick Note: [facility] 119 mtx ok * Edward Miranda MD - 02/26/2011 10:53 AM CDT Subjective: Senia Ruth 50 y.o. female Chief Complaint Patient presents with ??? Follow-up ra ??? Dizziness wants her ears check, Sx for few days, no drainage, no cold, no mroris Current Outpatient Prescriptions on File Prior to Visit Medication Sig Dispense Refill ??? methotrexate (RHEUMATREX) 2.5 MG tablet Take 4 Tabs by mouth every 7 days. 16 Tab 4 ??? NASONEX 50 MCG/ACT SUSP Ell[place] 1 [place] into each nostril daily. Prn in the am ??? metoprolol (LOPRESSOR) 10 mg/ml Take by mouth daily. Patient Active Problem List Diagnoses ??? Rheumatoid Arthritis ??? Back Pain ??? Screening cholesterol level ??? HTN (hypertension) ??? Hyperlipidemia History Smoking status ??? Former Smoker ??? Quit date: 10/27/2006 Smokeless tobacco ??? Not on file History Alcohol Use ??? Yes social History Drug Use No very busy at work On mtx for ra Chol has been high Pain Level: 2/10 Am stiffness 5 min Global 4/10 Fatigue y Medication Side Effects n Review of Systems: GENERAL: No fever, chills, sweats, weight loss EARS: No wax or hearing loss. NOSE: No runny nose, bleeding, she has sinus drainage MOUTH: No gingivitis or stomatitis GI: No nausea vomiting, abdominal pain, anorexia, diarrhea she has gerd HEART: No chest pain, palpitations, orthopnea, syncope LUNGS: No shortness of breath, cough, pleurisy, wheezing : No nocturia, dysuria, frequency, urgency, kidney stones. SKIN: No rash, itching, dry skin MS: NEURO: No headaches, seizures, dizziness, confusion, numbness, tingling HEME: No bruising or bleeding, swollen glands EXTREMITIES: No cyanosis, clubbing, edema OTHER: Objective: BP 160/80 Pulse 80 Wt 135 lb (61.236 kg) Tender Joint Count 0/28 Swollen Joint Count 0/ Muscles: Weak or Tender 0 Rheumatoid Nodules: [...] Diagnoses Name Primary? Rheumatoid arthritis Yes ??? Hyperlipidemia Plan: Plan Orders Placed This Encounter ??? CBC W AUTO DIFFERENTIAL ??? COMPREHENSIVE METABOLIC PANEL ??? C-REACTIVE PROTEIN ??? SED RATE WESTERGREN AUTO Follow up in office in 4 mo * Deepali Castellon MA - 02/26/2011 10:42 AM CDT Chief Complaint Patient presents with ??? Follow-up ra ??? Dizziness wants her ears check, Sx for few days, no drainage, no cold, no morris BP 160/80 Pulse 80 Wt 135 lb (61.236 kg) documented in this encounter Plan of Treatment Not on file documented as of this encounter Procedures Procedure Name Priority Date/Time Associated Diagnosis Comments C-REACTIVE PROTEIN Routine 02/26/2011 10 :49 AM CDT Rheumatoid arthritis (HCC) ERYTHROCYTE SEDIMENTATION RATE Routine 02/26/2011 10:49 AM CDT Rheumatoid arthritis (HCC) CBC W AUTO DIFFERENTIAL Routine 02/26/2011 10:49 AM CDT Rheumatoid arthritis (HCC) COMPREHENSIVE METABOLIC PANEL Routine 02/26/2011 10:49 AM CDT Rheumatoid arthritis (HCC) documented in this encounter Results * SED RATE WESTERGREN AUTO (02/26/2011 10:49 AM CDT) Erythrocyte Sedimentation Rate Westergren 5 0 - 56 mm/hr [facility] ACCOUNT BILL BLOOD SPECIMEN / Unknown 02/26/2011 10:49 AM CDT 02/26/2011 5:12 PM CDT Narrative Resulting Agency Comment [facility] ??[facility] [phone] Edward Miranda MD LAB - HEMATOLOGY OR DERABLES Performing Organization Address City/[facility]/ZIP Co de Phone Number [facility] ACCOUNT BILL * C-REACTIVE PROTEIN (02/26/2011 10:49 AM CDT) C-Reactive Protein 2.3 0.0 - 4.9 mg/L [facility] ACCOUNT BILL BLOOD SPECIMEN / Unknown 02/26/2011 10:49 AM CDT 02/26/2011 5:12 PM CDT Narrative Resulting Agency Comment [facility] ??[facility] [phone] Edward Miranda MD LAB - CHEMISTRY ORD ERABLES Performing Organization Address [facility]/ZIP Co de Phone Number [facility] ACCOUNT BILL * (ABNORMAL) COMPREHENSIVE METABOLIC PANEL (02/26/2011 10:49 AM CDT) Glucose 119(H) 65 - 99 mg/dL [facility] ACCOUNT BILL BUN 10 6 - 24 mg/dL [facility] ACCOUNT BILL Creatinine 0.82 0.57 - 1.00 mg/dL [facility] ACCOUNT BILL eGFR by MDRD 84 >59 mL/min/1.7 3 [facility] ACCOUNT BILL eGFR by MDRD 96 >59 mL/min/1.7 3 [facility] ACCOUNT BILL Comment: Note: A persistent eGFR <60 mL/min/1.73 m2 (3 months or more) may indicate chronic kidney disease. An eGFR >59 mL/min/1.73 m2 with an elevated urine protein also may indicate chronic kidney disease. Calculated using CKD-EPI formula. BUN/Creatinine Ratio 12 9 - 23 [facility] ACCOUNT BILL Sodium 139 135 - 145 mmol/L [facility] ACCOUNT BILL Potassium 4.2 3.5 - 5.2 mmol/L [facility] ACCOUNT BILL Chloride 101 97 - 108 mmol/L [facility] ACCOUNT BILL CO2 25 20 - 32 mmol/L [facility] ACCOUNT BILL Calcium 9.5 8.7 - 10.2 mg/dL [facility] ACCOUNT BILL Protein Total 7.5 6.0 - 8.5 g/dL [facility] ACCOUNT BILL Albumin 4.8 3.5 - 5.5 g/dL [facility] ACCOUNT BILL Globulin Total 2.7 1.5 - 4.5 g/dL [facility] ACCOUNT BILL Albumin/Globulin Ratio 1.8 1.1 - 2.5 [facility] ACCOUNT BILL Bilirubin Total 0.3 0.0 - 1.2 mg/dL [facility] ACCOUNT BILL Alkaline Phosphatase 53 25 - 150 IU/L [facility] ACCOUNT BILL AST 20 0 - 40 IU/L [facility] ACCOUNT BILL ALT 19 0 - 40 IU/L [facility] ACCOUNT BILL BLOOD SPECIMEN / Unknown 02/26/2011 10:49 AM CDT 02/26/2011 5:12 PM CDT Narrative Resulting Agency Comment [facility] [address] ??[facility] [phone] Edward Miranda MD LAB - CHEMISTRY ORD ERABLES [facility] ACCOUNT BILL * (ABNORMAL) CBC W AUTO DIFFERENTIAL (02/26/2011 10:49 AM CDT) WBC 4.7 4.0 - 10.5 x10E3/uL [facility] ACCOUNT BILL RBC 4.55 3.80 - 5.10 x10E6/uL [facility] ACCOUNT BILL Hemoglobin 14.1 11.5 - 15.0 g/dL [facility] ACCOUNT BILL Hematocrit 42.8 34.0 - 44.0 % [facility] ACCOUNT BILL MCV 94 80 - 98 fL [facility] ACCOUNT BILL MCH 31.0 27.0 - 34.0 pg [facility] ACCOUNT BILL MCHC 32.9 32.0 - 36.0 g/dL [facility] ACCOUNT BILL RDW 15.1(H) 11.7 - 15.0 % [facility] ACCOUNT BILL Platelet Count 292 140 - 415 x10E3/uL [facility] ACCOUNT BILL Granulocytes % 61 40 - 74 % [facility] ACCOUNT BILL Lymphocytes % 25 14 - 46 % [facility] ACCOUNT BILL Monocytes % 11 4 - 13 % [facility] ACCOUNT BILL Eosinophils % 2 0 - 7 % [facility] ACCOUNT BILL Basophils % 1 0 - 3 % [facility] ACCOUNT BILL Immature Cells NOT NEEDED [facility] ACCOUNT BILL Comment:Ancillary determined the test is not needed Granulocytes Absolute 2.9 1.8 - 7.8 x10E3/uL [facility] ACCOUNT BILL Lymphocytes Absolute 1.2 0.7 - 4.5 x10E3/uL [facility] ACCOUNT BILL Monocytes Absolute 0.5 0.1 - 1.0 x10E3/uL [facility] ACCOUNT BILL Eosinophils Absolute 0.1 0.0 - 0.4 x10E3/uL [facility] ACCOUNT BILL Basophils Absolute 0.0 0.0 - 0.2 x10E3/uL [facility] ACCOUNT BILL Immature Granulocytes 0 0 - 2 % [facility] ACCOUNT BILL Comment:Please note refere nce interval change Immature Granulocytes Absolute 0.0 0.0 - 0.1 x10E3/uL [facility] ACCOUNT BILL nRBC NOT NEEDED [facility] ACCOUNT BILL Comment:Ancillary determined the test is not needed Comment Hematology NOT NEEDED [facility] ACCOUNT BILL Comment:Ancillary determined the test is not needed BLOOD SPECIMEN / Unknown 02/26/2011 10:49 AM CDT 02/26/2011 5:12 PM CDT Narrative Resulting Agency Comment [facility] [address] ??[facility] [phone] Edward Miranda MD LAB - HEMATOLOGY OR DERABLES [facility] ACCOUNT BILL documented in this encounter Visit Diagnoses Diagnosis Rheumatoid arthritis(714.0) (HCC)- Primary Rheumatoid arthritis Hyperlipidemia Other and unspecified hyperlipidemia documented in this encounter
--- OUTSIDE RECORDS SUMMARY | 2024-06-28 21:39 | XMS_ITS | Encounter Summary ---
Author Organization [facility] Address [facility] [facility] [place] [address] [place] [address] Care Team Providers Care Cinder Crew Worker Name Role Phone William Craig MD Primary Care Provider [phone] Judie Carnes MD Unavailable Encounter Details Date Type Department Care Team (Latest Contact Info) Description 01/18/2024 Travel Social History Tobacco Use Types Packs/Day [...] Info) Description 01/17/2025 8:00 AM CDT Appointment [facility] [address] [place] [address] Judie Carnes MD [address] [place] [address] [phone] 01/20/2025 10:30 AM CDT Office Visit [facility] [address] [place] [phone] Judie Carnes MD [address] [place], [place] [phone] documented as of this encounter Visit Diagnoses Not on filedocumented in this encounter Care Teams Cinder Crew Worker Relationship Specialty Start Date End Date William Craig MD [address] [place] [phone] PCP - General INTERNAL MEDICINE 01/15/24 Judie Carnes MD [address] [place] [address] Stitzer Finishing Trimmer CARDIOVASCULAR DISEASE 01/15/24 documented as of this encounter
--- OUTSIDE RECORDS SUMMARY | 2024-06-28 21:39 | XMS_ITS | Encounter Summary ---
Author Organization [facility] Health Address [address] [facility] [place] [address] Care Team Providers Care Ammonia Still Operator Name Role Phone Edward Miranda MD Unavailable [phone] Encounter Details Date Type Department Care Team (Late st Contact Info) Description 09/23/2018 Lab Requisition [facility] Care Pathology Lab [address] [place] [address] Arpan Kelly MD [address] [place] [address] Social History Tobacco Use Types Packs/Day Years [...] Procedure Name Priority Date/Time Associated Diagnosis Comments FLOW CYTOMETRY BODY FLUID Routine 09/23/2018 9:15 AM CDT documented in this encounter Results * FLOW CYTOMETRY BODY FLUID (09/23/2018 9:15 AM CDT) Case Report Flow Cytometry ?Case: [id number] ? Authorizing Provider: ??Arpan Kelly MD ?Collected: ? 09/23/2018 09:15 AM ? Pathologist: ? Lisa Chang MD ?? Received: ?09/23/2018 11:27 AM ? Specimen: ?Body Fluid , Right Breast Fluid ? 09/23/2018 1:58 PM [facility] Final Diagnosis Right breast fluid, flow cytometric immunophenotypic analysis: - Insufficient hematopoietic cells for analysis. - See interpretation. 09/23/2018 1:58 PM [facility] Flow Cytometry Interpretation Preliminary characterization of the right breast fluid specimen demonstrates too few hematopoietic cells for flow cytometric analysis. A cytospin prepared from the flow cytometry specimen is reviewed for senior quality assurance engineer purposes. Flow cytometry is not performed. KR/NW 09/23/2018 1:58 PM [facility] Flow Cytometry Results Insufficient cells are available for analysis. 09/23/2018 1:58 PM [facility] Client Specimen ID # [id number] 09/23/2018 1:58 PM [facility] Disclaimer Test performed at [facility], [address] [place] [address], [id number]. *The established laboratory minimum viability is 70%. [...] high complexity clinical testing. 09/23/2018 1:58 PM [facility] Embedded Images 03/14/201 9 1:58 PM CDT [facility] PATH[facility] Fluid BODY FLUID SPECIMEN / Unknown 09/23/2018 9:15 AM CDT 09/23/2018 11:27 AM CDT Arpan Kelly MD LAB - PATHOLOGY/CYTO LOGY ORDERABLES Performing Organization Address City/State/[facility] de Phone Number [facility] LAB [address] [phone] documented in this encounter Visit Diagnoses Not on filedocumented in this encounter Care Teams Ammonia Still Operator Relationship Specialty Start Date End Date Edward Miranda MD Rheumatology 06/24/11 documented as of this encounter
--- OUTSIDE RECORDS SUMMARY | 2024-06-28 21:39 | XMS_ITS | Encounter Summary ---
Author Organization [facility] Address [facility] [facility] [place] [address] [place] [address] Care Team Providers Care Manager Integrated Name Role Phone William Craig MD Primary Care Provider [phone] Judie Carnes MD Unavailable Reason for Visit * Reason Onset Date Comments Question 02/16/2024 Encounter Details Date Type Department Care Team (Late st Contact Info) Description 02/16/2024 Telephone [facility] [address] [place] [address] Judie Carnes MD [address] [place] [address] Question Social History Tobacco Use Types Packs/Day Years Used Date Smoking Tobacco: Former Cigarettes Comments Unknown Sex and Gender Information Value Date Recorded Sex Assigned at Not on file Legal Sex Female 1:48 PM CDT Gender Identity Not on file Sexual Orientation Not on file documented as of this encounter Progress Notes * Minh Pablo LPN - 03/08/2024 9:03 AM CDT I spoke to Mr. Ruth, he is aware that since he does not want to do another MCT, I will send a message to Dr. Holland's office to get her scheduled to see him for possible loop recorder. Mr. Ruth v/u, he has no further questions at this time. * Jes Campuzano - 03/08/2024 8:37 AM CDT Pt returned a call to the nurse. The pt had a stroke recently and is unable to answer the phone. He asked that you return the call to him please. * Minh Pablo LPN - 03/07/2024 11:17 AM CDT LM for pt to return my call, would pt like to repeat MCT or be referred to [facility] for Loop Recorder? * Minh Pablo LPN - 03/01/2024 1:[address] Carnes, pt can repeat the MCT for 30 days, or we can refer to Dr. Holland for a loop recorder. Iwill call and let pt know and see what she decides. * Minh Pablo LPN - 02/23/2024 3:42 PM CDT Note from Dr. Gallardo in chart (CE) from 12/03. No mention of loop recorder. * Jes Campuzano - 02/16/2024 2:51 PM CDT I have requested the office note. * Chasity Aleman RN - 02/16/2024 2:36 PM CDT Reviewed last note 01/17- She also had a monitor which was nearly 30 days long which did not reveal any atrial arrhythmias tosuggest any cardioembolic causes of her prior infarction or her current stroke. No mention of loop recorder- Can we request last note konrad? * Jes Campuzano - 02/16/2024 9:11 AM CDT The pt is calling to let the nurse know that the nuro doc Dr. Gallardo called and asked them to call. They would like the pt to have a loop recorder. documented in this encounter Plan of Treatment Upcoming Encounters Date Type Department Care Team (Late st Contact Info) Description 01/17/2025 8:00 AM CDT Appointment [facility] [place] [address] Judie Carnes MD [address] [place] [address] 01/20/2025 10:30 AM CDT Office Visit [facility] [place] [address] Judie Carnes MD [address] [place], [place] [address] documented as of this encounter Visit Diagnoses Not on filedocumented in this encounter Care Teams Manager Integrated Relationship Specialty Start Date End Date William Craig MD [address] [place] [phone] PCP - General INTERNAL MEDICINE 01/15/24 Judie Carnes MD [address] [place] [address] [employer] Machine Operator CARDIOVASCULAR DISEASE 01/15/24 documented as of this encounter
--- OUTSIDE RECORDS SUMMARY | 2024-06-28 21:39 | XMS_ITS | Encounter Summary ---
Author Organization [facility] Health Address [address] [place] [address] Care Team Providers Care Supervisor Post Wave Name Role Phone Unavailable Primary Care Provider Unavailabl e Encounter Details Date Type Department Care Team (Late st Contact Info) Description 06/27/2009 Orders Only [facility] - Rheumatology [address] [place] [phone] Edward Miranda MD [address] [place] [address] [phone] Social History Tobacco Use Types Packs/Day Years [...] Date/Time Associated Diagnosis Comments ERYTHROCYTE SEDIMENTATION RATE 06/27/2009 10:46 AM MEDICAL RECORDS FIELD TECHNICIAN documented in this encounter Results * SED RATE WESTERGREN AUTO (06/27/2009 10:46 AM MEDICAL RECORDS FIELD TECHNICIAN) Erythrocyte Sedimentation Rate Westergren 5 0 - 20 mm/hr [facility] ACCOUNT BILL 06/27/2009 10:4 6 AM MEDICAL RECORDS FIELD TECHNICIAN 06/27/2009 5:42 PM MEDICAL RECORDS FIELD TECHNICIAN Narrative Resulting Agency Comment [facility] [address] ??[facility], [facility] [phone] Edward Miranda MD LAB - HEMATOLOGY OR DERABLES [facility] ACCOUNT BILL documented in this encounter Visit Diagnoses Not on filedocumented in this encounter
--- OUTSIDE RECORDS SUMMARY | 2024-06-28 21:39 | XMS_ITS | Encounter Summary ---
Author Organization [facility] Health Address [address] [facility] [place] [address] Care Team Providers Care Land Sales Agent Name Role Phone Unavailable Primary Care Provider Unavailabl e Encounter Details Date Type Department Care Team (Late st Contact Info) Description 01/02/2011 Orders Only [facility] - Rheumatology [address] [place] [address] [phone] Edward Miranda MD [address] [place] [address] [phone] Social History Tobacco Use Types Packs/Day Years [...] Progress Notes * Migdalia Vitale MA - 01/05/2012 4:33 PM CDTQuick Note: Letter mailed to patient regarding lab results. * Edward Miranda MD - 01/02/2012 3:21 PM CDTQuick Note: mtx ok * Edward Miranda MD - 05/12/2011 9:53 PM CDTQuick Note: mtx ok documented in this encounter Plan of Treatment Not on file documented as of this encounter Procedures Procedure Name Priority Date/Time Associated Diagnosis Comments ERYTHROCYTE SEDIMENTATION RATE 01/01/2012 1:42 PM CDT CBC W AUTO DIFFERENTIAL 01/01/2012 1:42 PM CDT COMPREHENSIVE METABOLIC PANEL 01/01/2012 1:42 PM CDT ERYTHROCYTE SEDIMENTATION RATE 09/08/2011 1:35 PM DRY BOX TENDER CBC W AUTO DIFFERENTIAL 09/08/2011 1:35 PM DRY BOX TENDER COMPREHENSIVE METABOLIC PANEL 09/08/2011 1:35 PM DRY BOX TENDER ERYTHROCYTE SEDIMENTATION RATE 05/07/2011 1:43 PM CDT CBC W AUTO DIFFERENTIAL 05/07/2011 1:43 PM CDT COMPREHENSIVE METABOLIC PANEL 05/07/2011 1:43 PM CDT ERYTHROCYTE SEDIMENTATION RATE 01/02/2011 2:04 PM CDT CBC W AUTO DIFFERENTIAL 01/02/2011 2:04 PM CDT COMPREHENSIVE METABOLIC PANEL 01/02/2011 2:04 PM CDT documented in this encounter Results * SED RATE WESTERGREN (01/01/2012 1:42 PM CDT) Erythrocyte Sedimentation Rate Westergren 3 0 - 40 mm/hr [facility] INSURANCE BILL 01/01/2012 1:42 PM CDT 01/01/2012 5:36 PM CDT Narrative [facility] INSURANCE BILL - 01/02/2012 6:21 AM CDT A courtesy copy of this report has been sent to [phone]. Resulting Agency Comment [facility] [address] ??[facility] [phone] Edward Miranda MD LAB - HEMATOLOGY OR DERABLES [facility] INSURANCE BILL * COMPREHENSIVE METABOLIC PANEL (01/01/2012 1:42 PM CDT) Glucose 93 65 - 99 mg/dL [facility] INSURANCE BILL BUN 13 6 - 24 mg/dL [facility] INSURANCE BILL Creatinine 0.78 0.57 - 1.00 mg/dL [facility] INSURANCE BILL eGFR by MDRD 88 >59 mL/min/1.7 3 [facility] INSURANCE BILL eGFR by MDRD 102 >59 mL/min/1.7 3 [facility] INSURANCE BILL BUN/Creatinine Ratio 17 9 - 23 [facility] INSURANCE BILL Sodium 137 134 - 144 mmol/L [facility] INSURANCE BILL Potassium 3.8 3.5 - 5.2 mmol/L [facility] INSURANCE BILL Chloride 100 97 - 108 mmol/L [facility] INSURANCE BILL CO2 20 20 - 32 mmol/L [facility] INSURANCE BILL Calcium 9.0 8.7 - 10.2 mg/dL [facility] INSURANCE BILL Protein Total 6.9 6.0 - 8.5 g/dL [facility] INSURANCE BILL Albumin 4.3 3.5 - 5.5 g/dL [facility] INSURANCE BILL Globulin Total 2.6 1.5 - 4.5 g/dL [facility] INSURANCE BILL Albumin/Globulin Ratio 1.7 1.1 - 2.5 [facility] INSURANCE BILL Bilirubin Total 0.2 0.0 - 1.2 mg/dL [facility] INSURANCE BILL Alkaline Phosphatase 52 25 - 150 IU/L [facility] INSURANCE BILL AST 20 0 - 40 IU/L [facility] INSURANCE BILL ALT 22 0 - 40 IU/L [facility] INSURANCE BILL 01/01/2012 1:42 PM CDT 01/01/2012 5:36 PM CDT Narrative [facility] INSURANCE BILL - 01/02/2012 6:21 AM CDT A courtesy copy of this report has been sent to [phone]. Resulting Agency Comment [facility] ??[facility] [phone] Edward Miranda MD LAB - CHEMISTRY ORD ERABLES [facility] INSURANCE BILL * CBC W AUTO DIFFERENTIAL (01/01/2012 1:42 PM CDT) [facility] WBC 4.9 4.0 - 10.5 x10E3/uL [facility] INSURANCE BILL RBC 4.25 3.77 - 5.28 x10E6/uL [facility] INSURANCE BILL Hemoglobin 12.8 11.1 - 15.9 g/dL [facility] INSURANCE BILL Hematocrit 38.7 34.0 - 46.6 % [facility] INSURANCE BILL MCV 91 79 - 97 fL [facility] INSURANCE BILL MCH 30.1 26.6 - 33.0 pg [facility] INSURANCE BILL MCHC 33.1 31.5 - 35.7 g/dL [facility] INSURANCE BILL RDW 14.4 12.3 - 15.4 % [facility] INSURANCE BILL Platelet Count 305 140 - 415 x10E3/uL [facility] INSURANCE BILL [...] the test is not needed Granulocytes Absolute 2.5 1.8 - 7.8 x10E3/uL [facility] INSURANCE BILL Lymphocytes Absolute 1.8 0.7 - 4.5 x10E3/uL [facility] INSURANCE BILL Monocytes Absolute 0.4 0.1 - 1.0 x10E3/uL [facility] INSURANCE BILL Eosinophils Absolute 0.1 0.0 - 0.4 x10E3/uL [facility] INSURANCE BILL Basophils Absolute 0.0 0.0 - 0.2 x10E3/uL [facility] INSURANCE BILL Immature Granulocytes 0 0 - 2 % [facility] INSURANCE BILL Immature Granulocytes Absolute 0.0 0.0 - 0.1 x10E3/uL [facility] INSURANCE BILL nRBC NOT NEEDED [facility] INSURANCE BILL Comment:Ancillary determined the test is not needed Comment Hematology NOT NEEDED [facility] INSURANCE BILL Comment:Ancillary determined the test is not needed 01/01/2012 1:42 PM CDT 01/01/2012 5:36 PM CDT Narrative [facility] INSURANCE BILL - 01/02/2012 6:21 AM CDT A courtesy copy of this report has been sent to [phone]. Resulting Agency Comment [facility] [place] [address] ??[facility] [phone] Edward Miranda MD LAB - HEMATOLOGY OR DERABLES [facility] INSURANCE BILL * SED RATE WESTERGREN AUTO (09/08/2011 1:35 PM DRY BOX TENDER) Erythrocyte Sedimentation Rate Westergren 7 0 - 40 mm/hr [facility] INSURANCE BILL 09/08/2011 1:35 PM DRY BOX TENDER 09/08/2011 5:36 PM DRY BOX TENDER Narrative Resulting Agency Comment [facility] [address] [facility] ??[facility] [phone] Edward Miranda MD LAB - HEMATOLOGY OR DERABLES [facility] INSURANCE BILL * (ABNORMAL) COMPREHENSIVE METABOLIC PANEL (09/08/2011 1:35 PM DRY BOX TENDER) Glucose 111(H) 65 - 99 mg/dL [facility] INSURANCE BILL BUN 12 6 - 24 mg/dL [facility] INSURANCE BILL Creatinine 0.76 0.57 - 1.00 mg/dL [facility] INSURANCE BILL eGFR by MDRD 92 >59 mL/min/1.7 3 [facility] INSURANCE BILL eGFR by MDRD 106 >59 mL/min/1.7 3 [facility] INSURANCE BILL Comment: Note: A persistent eGFR <60 mL/min/1.73 m2 (3 months or more) may indicate chronic kidney disease. An eGFR >59 mL/min/1.73 m2 with an elevated urine protein also may indicate chronic kidney disease. Calculated using CKD-EPI formula. BUN/Creatinine Ratio 16 9 - 23 [facility] INSURANCE BILL Sodium 137 134 - 144 mmol/L [facility] INSURANCE BILL Potassium 3.9 3.5 - 5.2 mmol/L [facility] INSURANCE BILL Chloride 100 97 - 108 mmol/L [facility] INSURANCE BILL CO2 22 20 - 32 mmol/L [facility] INSURANCE BILL Calcium 9.5 8.7 - 10.2 mg/dL [facility] INSURANCE BILL Protein Total 6.9 6.0 - 8.5 g/dL [facility] INSURANCE BILL Albumin 4.3 3.5 - 5.5 g/dL [facility] INSURANCE BILL Globulin Total 2.6 1.5 - 4.5 g/dL [facility] INSURANCE BILL Albumin/Globulin Ratio 1.7 1.1 - 2.5 [facility] INSURANCE BILL Bilirubin Total 0.3 0.0 - 1.2 mg/dL [facility] INSURANCE BILL Alkaline Phosphatase 51 25 - 150 IU/L [facility] INSURANCE BILL AST 14 0 - 40 IU/L [facility] INSURANCE BILL ALT 18 0 - 40 IU/L [facility] INSURANCE BILL 09/08/2011 1:35 PM DRY BOX TENDER 09/08/2011 5:36 PM DRY BOX TENDER Narrative Resulting Agency Comment [facility] [address] ??[facility] [phone] Edward Miranda MD LAB - CHEMISTRY ORD ERABLES [facility] INSURANCE BILL * CBC W AUTO DIFFERENTIAL (09/08/2011 1:35 PM DRY BOX TENDER) WBC 6.2 4.0 - 10.5 x10E3/uL [facility] INSURANCE BILL RBC 4.40 3.80 - 5.10 x10E6/uL [facility] INSURANCE BILL Hemoglobin 13.1 11.5 - 15.0 g/dL [facility] INSURANCE BILL Hematocrit 40.9 34.0 - 44.0 % [facility] INSURANCE BILL MCV 93 80 - 98 fL [facility] INSURANCE BILL MCH 29.8 27.0 - 34.0 pg [facility] INSURANCE BILL MCHC 32.0 32.0 - 36.0 g/dL [facility] INSURANCE BILL RDW 14.9 11.7 - 15.0 % [facility] INSURANCE BILL Platelet Count 283 140 - 415 x10E3/uL [facility] INSURANCE BILL Granulocytes % 59 40 - 74 % [facility] INSURANCE B[facility] Lymphocytes % 26 14 - 46 % [facility] INSURANCE BILL Monocytes % 11 4 - 13 % [facility] INSURANCE BILL Eosinophils % 3 0 - 7 % [facility] INSURANCE BILL Basophils % 1 0 - 3 % [facility] INSURANCE BILL Immature Cells NOT NEEDED [facility] INSURANCE BILL Comment:Ancillary determined the test is not needed Granulocytes Absolute 3.7 1.8 - 7.8 x10E3/uL [facility] INSURANCE BILL Lymphocytes Absolute 1.6 0.7 - 4.5 x10E3/uL [facility] INSURANCE BILL Monocytes Absolute 0.7 0.1 - 1.0 x10E3/uL [facility] INSURANCE BILL Eosinophils Absolute 0.2 0.0 - 0.4 x10E3/uL [facility] INSURANCE BILL Basophils Absolute 0.1 0.0 - 0.2 x10E3/uL [facility] INSURANCE BILL Immature Granulocytes 0 0 - 2 % [facility] INSURANCE BILL Immature Granulocytes Absolute 0.0 0.0 - 0.1 x10E3/uL [facility] INSURANCE BILL nRBC NOT NEEDED [facility] INSURANCE BILL Comment:Ancillary determined the test is not needed Comment Hematology NOT NEEDED [facility] INSURANCE BILL Comment:Ancillary determined the test is not needed 09/08/2011 1:35 PM DRY BOX TENDER 09/08/2011 5:36 PM DRY BOX TENDER Narrative Resulting Agency Comment [facility] ??[facility] [phone] Edward Miranda MD LAB - HEMATOLOGY OR DERABLES Performing Organization Address City/[facility]/[place] Co de Phone Number [facility] INSURANCE BILL * SED RATE WESTERGREN AUTO (05/07/2011 1:43 PM CDT) Erythrocyte Sedimentation Rate Westergren 5 0 - 56 mm/hr [facility] INSURANCE BILL 05/07/2011 1:43 PM CDT 05/07/2011 5:37 PM CDT Narrative Resulting Agency Comment [facility] ??[facility] [phone] Edward Miranda MD LAB - HEMATOLOGY OR DERABLES [facility] INSURANCE BILL * COMPREHENSIVE METABOLIC PANEL (05/07/2011 1:43 PM CDT) Glucose 94 65 - 99 mg/dL [facility] INSURANCE BILL BUN 10 6 - 24 mg/dL [facility] INSURANCE BILL Creatinine 0.73 0.57 - 1.00 mg/dL [facility] INSURANCE BILL eGFR by MDRD 96 >59 mL/min/1.7 3 [facility] INSURANCE BILL eGFR by MDRD 111 >59 mL/min/1.7 3 [facility] INSURANCE BILL Comment: Note: A persistent eGFR <60 mL/min/1.73 m2 (3 months or more) may indicate chronic kidney disease. An eGFR >59 mL/min/1.73 m2 with an elevated urine protein also may indicate chronic kidney disease. Calculated using CKD-EPI formula. BUN/Creatinine Ratio 14 9 - 23 [facility] INSURANCE BILL Sodium 141 135 - 145 mmol/L [facility] INSURANCE BILL Potassium 4.2 3.5 - 5.2 mmol/L [facility] INSURANCE BILL Chloride 102 97 - 108 mmol/L [facility] INSURANCE BILL CO2 24 20 - 32 mmol/L [facility] INSURANCE BILL Calcium 9.5 8.7 - 10.2 mg/dL [facility] INSURANCE BILL Protein Total 7.0 6.0 - 8.5 g/dL [facility] INSURANCE BILL Albumin 4.7 3.5 - 5.5 g/dL [facility] INSURANCE BILL Globulin Total 2.3 1.5 - 4.5 g/dL [facility] INSURANCE BILL Albumin/Globulin Ratio 2.0 1.1 - 2.5 [facility] INSURANCE BILL Bilirubin Total 0.2 0.0 - 1.2 mg/dL [facility] INSURANCE BILL Alkaline Phosphatase 53 25 - 150 IU/L [facility] INSURANCE BILL AST 18 0 - 40 IU/L [facility] INSURANCE BILL ALT 17 0 - 40 IU/L [facility] INSURANCE BILL 05/07/2011 1:43 PM CDT 05/07/2011 5:37 PM CDT Narrative Resulting Agency Comment [facility] [address] ??[facility] [phone] Edward Miranda MD LAB - CHEMISTRY ORD ERABLES [facility] INSURANCE BILL * CBC W AUTO DIFFERENTIAL (05/07/2011 1:43 PM CDT) WBC 6.0 4.0 - 10.5 x10E3/uL [facility] INSURANCE BILL RBC 4.23 3.80 - 5.10 x10E6/uL [facility] INSURANCE BILL Hemoglobin 13.3 11.5 - 15.0 g/dL [facility] INSURANCE BILL Hematocrit 41.4 34.0 - 44.0 % [facility] INSURANCE BILL MCV 98 80 - 98 fL [facility] INSURANCE BILL MCH 31.4 27.0 - 34.0 pg [facility] INSURANCE BILL MCHC 32.1 32.0 - 36.0 g/dL [facility] INSURANCE BILL RDW 14.6 11.7 - 15.0 % [facility] INSURANCE BILL Platelet Count 296 140 - 415 x10E3/uL [facility] INSURANCE BILL Granulocytes % 57 40 - 74 % [facility] INSURANCE B[facility] Lymphocytes % 28 14 - 46 % [facility] INSURANCE BILL Monocytes % 12 4 - 13 % [facility] INSURANCE BILL Eosinophils % 2 0 - 7 % [facility] INSURANCE BILL Basophils % 1 0 - 3 % [facility] INSURANCE BILL Immature Cells NOT NEEDED [facility] INSURANCE BILL Comment:Ancillary determined the test is not needed Granulocytes Absolute 3.4 1.8 - 7.8 x10E3/uL [facility] INSURANCE BILL Lymphocytes Absolute 1.7 0.7 - 4.5 x10E3/uL [facility] INSURANCE BILL Monocytes Absolute 0.7 0.1 - 1.0 x10E3/uL [facility] INSURANCE BILL Eosinophils Absolute 0.1 0.0 - 0.4 x10E3/uL [facility] INSURANCE BILL Basophils Absolute 0.1 0.0 - 0.2 x10E3/uL [facility] INSURANCE BILL Immature Granulocytes 0 0 - 2 % [facility] INSURANCE BILL Immature Granulocytes Absolute 0.0 0.0 - 0.1 x10E3/uL [facility] INSURANCE BILL nRBC NOT NEEDED [facility] INSURANCE BILL Comment:Ancillary determined the test is not needed Comment Hematology NOT NEEDED [facility] INSURANCE BILL Comment:Ancillary determined the test is not needed 05/07/2011 1:43 PM CDT 05/07/2011 5:37 PM CDT Narrative Resulting Agency Comment [facility] [address] ??[facility] [phone] Edward Miranda MD LAB - HEMATOLOGY OR DERABLES [facility] INSURANCE BILL * SED RATE WESTERGREN AUTO (01/02/2011 2:04 PM CDT) Erythrocyte Sedimentation Rate Westergren 6 0 - 56 mm/hr [facility] INSURANCE BILL Comment:Please note refere nce interval change 01/02/2011 2:04 PM CDT 01/02/2011 5:39 PM CDT Narrative Resulting Agency Comment [facility] [address] [phone] Edward Miranda MD LAB - HEMATOLOGY OR DERABLES [facility] INSURANCE BILL * CBC W AUTO DIFFERENTIAL (01/02/2011 2:04 PM CDT) WBC 5.3 4.0 - 10.5 x10E3/uL [facility] INSURANCE BILL RBC 4.38 3.80 - 5.10 x10E6/uL [facility] INSURANCE BILL Hemoglobin 13.5 11.5 - 15.0 g/dL [facility] INSURANCE BILL Hematocrit 41.2 34.0 - 44.0 % [facility] INSURANCE BILL MCV 94 80 - 98 fL [facility] INSURANCE BILL MCH 30.8 27.0 - 34.0 pg [facility] INSURANCE BILL MCHC 32.8 32.0 - 36.0 g/dL [facility] INSURANCE BILL RDW 14.5 11.7 - 15.0 % [facility] INSURANCE BILL Platelet Count 323 140 - 415 x10E3/uL [facility] INSURANCE BILL Granulocytes % 47 40 - 74 % [facility] Lymphocytes % 40 14 - 46 % [facility] INSURANCE [facility]ILL Monocytes % 8 4 - 13 % [facility] INSURANCE BILL Eosinophils % 4 0 - 7 % [facility] INSURANCE BILL Basophils % 1 0 - 3 % [facility] INSURANCE BILL Granulocytes Absolute 2.5 1.8 - 7.8 x10E3/uL [facility] INSURANCE BILL Lymphocytes Absolute 2.1 0.7 - 4.5 x10E3/uL [facility] INSURANCE BILL Monocytes Absolute 0.4 0.1 - 1.0 x10E3/uL [facility] INSURANCE BILL Eosinophils Absolute 0.2 0.0 - 0.4 x10E3/uL [facility] INSURANCE BILL Basophils Absolute 0.1 0.0 - 0.2 x10E3/uL [facility] INSURANCE BILL Immature Granulocytes 0 0 - 2 % [facility] INSURANCE BILL Comment:Please note refere nce interval change Immature Granulocytes Absolute 0.0 0.0 - 0.1 x10E3/uL [facility] INSURANCE BILL 01/02/2011 2:04 PM CDT 01/02/2011 5:39 PM CDT Narrative Resulting Agency Comment [facility] [address] [phone] Edward Miranda MD LAB - HEMATOLOGY OR DERABLES [facility] INSURANCE BILL * (ABNORMAL) COMPREHENSIVE METABOLIC PANEL (01/02/2011 2:04 PM CDT) Glucose 103(H) 65 - 99 mg/dL [facility] INSURANCE BILL BUN 12 6 - 24 mg/dL [facility] INSURANCE BILL Creatinine 0.85 0.57 - 1.00 mg/dL [facility] INSURANCE BILL eGFR by MDRD 80 >59- mL/min/1.7 3 [facility] INSURANCE BILL eGFR by MDRD 92 >59- mL/min/1.7 3 [facility] INSURANCE BILL Comment: Note: A persistent eGFR <60 mL/min/1.73 m2 (3 months or more) may indicate chronic kidney disease. An eGFR >59 mL/min/1.73 m2 with an elevated urine protein also may indicate chronic kidney disease. Calculated using CKD-EPI formula. BUN/Creatinine Ratio 14 9 - 23 [facility] INSURANCE BILL Sodium 138 135 - [...] 2.5 [facility] INSURANCE BILL Bilirubin Total 0.2 0.0 - 1.2 mg/dL [facility] INSURANCE BILL Alkaline Phosphatase 50 25 - 150 IU/L [facility] INSURANCE BILL AST 16 0 - 40 IU/L [facility] INSURANCE BILL ALT 18 0 - 40 IU/L [facility] INSURANCE BILL 01/02/2011 2:04 PM CDT 01/02/2011 5:39 PM CDT Narrative Resulting Agency Comment [facility] [address] [phone] Edward Miranda MD LAB - CHEMISTRY ORD ERABLES [facility] INSURANCE BILL documented in this encounter Visit Diagnoses Not on filedocumented in this encounter
--- OUTSIDE RECORDS SUMMARY | 2024-06-28 21:39 | XMS_ITS | Encounter Summary ---
Author Organization [facility] Address [facility] [facility] [place] [address] [place] [address] Care Team Providers Care Ship Liner Name Role Phone William Craig MD Primary Care Provider [phone] Judie Carnes MD Unavailable Encounter Details Date Type Department Care Team (Late st Contact Info) Description 04/06/2024 Prep for Procedure [facility] [address] [place] [phone] Arnaldo Ga MD [address] [place], [place] [address] Social History Tobacco Use Types Packs/Day Years [...] Info) Description 01/17/2025 8:00 AM CDT Appointment [facility] [address] [place] [address] Judie Carnes MD [address] [place], [place] [phone] 01/20/2025 10:30 AM CDT [facility] [address] [place] [phone] Judie Carnes MD [address] [place], [place] [phone] documented as of this encounter Visit Diagnoses Not on filedocumented in this encounter Care Teams Ship Liner Relationship Specialty Start Date End Date William Craig MD [address] [place] [phone] PCP - General INTERNAL MEDICINE 01/15/24 Judie Carnes MD [address] [place] [address] [place] Bankruptcy Assistant CARDIOVASCULAR DISEASE 01/15/24 documented as of this encounter
--- OUTSIDE RECORDS SUMMARY | 2024-06-28 21:39 | XMS_ITS | Encounter Summary ---
Author Organization [facility] Health Address [address] [facility] [place] [address] Care Team Providers Care Roller Engraver Name Role Phone Unavailable Primary Care Provider Unavailabl e Reason for Visit * Reason Onset Date Comments MEDICATION REFILL 02/27/2011 Encounter Details Date Type Department Care Team (Late st Contact Info) Description 02/27/2011 Refill [facility] Medical [facility] - Family Medicine [address] [place] [address] Edward Miranda MD [address] [place], [place] [id number] MEDICATION REFILL Social History Tobacco Use Types [...] this encounter Visit Diagnoses Diagnosis Rheumatoid arthritis(714.0) ([facility])- Primary Rheumatoid arthritis documented in this encounter
--- OUTSIDE RECORDS SUMMARY | 2024-06-28 21:40 | XMS_ITS | Encounter Summary ---
Author Organization [facility] Address [address] [place] [address]. [place] [address] [place] [address] Care Team Providers Care Utilities Equipment Repairer Name Role Phone William Craig MD Primary Care Provider [phone] Judie Carnes MD Unavailable Encounter Details Date Type Department Care Team (Late st Contact Info) Description 01/15/2024 Abstract [facility] [address] [place] [phone] Abstract, Doc Pccl Social History Tobacco Use Types Packs/Day Years [...] CDT Appointment [facility] [address] [place] [address] Judie Carnes MD [address] [place] [phone] 01/20/2025 10:30 AM CDT Office Visit [facility] [address] [place] [phone] Judie Carnes MD [address] [place] [address] documented as of this encounter Procedures Procedure Name Priority Date/Time Associated Diagnosis Comments COMPREHENSIVE METABOLIC PANEL Routine 10/27/2023 CBC, MANUAL DIFF Routine 10/27/2023 documented in this encounter Results * COMPREHENSIVE METABOLIC PANEL (10/27/2023) SODIUM S/P/B 143 GLUCOSE 107 mg/dL AST 17 BUN 14 CREATININE S/P/B 0.97 0.5 - 1.0 CALCIUM S/P/B 9.5 POTASSIUM S/P/B 4.1 CHLORIDE S/P/B 105 ALT 17 GFR ESTIMATE 66 Narrative Resulting Agency Comment [facility] us Kirk Pope MD LABORATORY Final Result * CBC, MANUAL DIFF (10/27/2023) WBC 6.7 HGB 11.8 HCT 37.6 PLT 187 Narrative Resulting Agency Comment [facility] us Kirk Pope MD LABORATORY Final Result documented in this encounter Visit Diagnoses Not on filedocumented in this encounter Care Teams Utilities Equipment Repairer Relationship Specialty Start Date End Date William Craig MD [address] [place] [address] PCP - General INTERNAL MEDICINE 01/15/24 Judie Carnes MD [address] [place] [address] [place] Machine Biller CARDIOVASCULAR DISEASE 01/15/24 documented as of this encounter
--- OUTSIDE RECORDS SUMMARY | 2024-06-28 21:40 | XMS_ITS | Encounter Summary ---
Author Organization [facility] Address [facility] [place] [address] [place] [address] Care Team Providers Care School Janitor Name Role Phone William Craig MD Primary Care Provider [phone] Judie Carnes MD Unavailable Reason for Visit * Reason Comments Holter Monitor Report (SCAN) Encounter Details Date Type Department Care Team (Late st Contact Info) Description 11/26/2023 Scan [facility] [address] [place] [address] Scanned, Doc Pccl Holter Monitor Report (SCAN) Social History Tobacco Use Types Packs/Day Years Used Date Smoking Tobacco: Never Assessed Comments Unknown Sex and Gender Information Value Date Recorded Sex Assigned at Not on file Legal Sex Female 1:48 PM CDT Gender Identity Not on file Sexual Orientation Not on file documented as of this encounter Plan of Treatment Upcoming Encounters Date Type Department Care Team (Late st Contact Info) Description 01/17/2025 8:[address] [facility] [address] [place] [address] Judie Carnes MD [address] [place], [place] [phone] 01/20/2025 10:30 AM CDT Office Visit [facility] [address] [place] [phone] Judie Carnes MD [address] [place], [place] [phone] documented as of this encounter Procedures Procedure Name Priority Date/Time Associated Diagnosis Comments FRENCH POLISHER Routine 11/26/2023 12:00 AM CDT HOLTER DOCUMENT (SCAN ORDER) Routine 11/26/2023 documented in this encounter Results * FRENCH POLISHER (11/26/2023 12:00 AM CDT) 11/26/2023 us Doc Pccl Scanned SCANNING Final Result HS ONBASE * HOLTER DOCUMENT (11/26/2023) us Doc Pccl Scanned SCANNING Final Result Performing Organization Address City/[facility]/ZIP Co de Phone Number HS ONBASE documented in this encounter Visit Diagnoses Not on filedocumented in this encounter Care Teams School Janitor Relationship Specialty Start Date End Date William Craig MD [address] [place] [phone] PCP - General INTERNAL MEDICINE 01/15/24 Judie Carnes MD [address] [place] [address] [place] Lumber Sticker CARDIOVASCULAR DISEASE 01/15/24 documented as of this encounter
--- OUTSIDE RECORDS SUMMARY | 2024-06-28 21:40 | XMS_ITS | Encounter Summary ---
Author Organization [facility] Address [facility] [place] [address] [place] [address] Care Team Providers Care Fixture Maker Name Role Phone William Craig MD Primary Care Provider [phone] Judie Carnes MD Unavailable Encounter Details Date Type Department Care Team (Late st Contact Info) Description 01/13/2024 Scan [facility] [address] [place] [phone] Scanned, Doc Pccl Social History Tobacco Use Types [...] Info) Description 01/17/2025 8:00 AM CDT Appointment [facility] [address] [place] [address] Judie Carnes MD [address] [place] [phone] 01/20/2025 10:30 AM CDT Office Visit [facility] [address] [place] [phone] Judie Carnes MD [address] [place] [address] documented as of this encounter Visit Diagnoses Not on filedocumented in this encounter Care Teams Fixture Maker Relationship Specialty Start Date End Date William Craig MD [address] [place] [phone] PCP - General INTERNAL MEDICINE 01/15/24 Judie Carnes MD [address] [place] [address] [place] Special Education Teacher CARDIOVASCULAR DISEASE 01/15/24 documented as of this encounter
--- OUTSIDE RECORDS SUMMARY | 2024-06-28 21:40 | XMS_ITS | Encounter Summary ---
Author Organization [facility] Address [facility] [place] [address] [place] [address] Care Team Providers Care Sliver Lap Tender Name Role Phone William Craig MD Primary Care Provider Judie Carnes MD Unavailable Reason for Visit * Reason Onset Date Comments Appointment Request 01/15/2024 Encounter Details Date Type Department Care Team (Late st Contact Info) Description 01/15/2024 Telephone [facility] [address] [place], [place] [address] Judie Carnes MD [address] [place] [address] Appointment Request Social History Tobacco Use Types Packs/Day Years Used Date Smoking Tobacco: Former Cigarettes Comments Unknown Sex and Gender Information Value Date Recorded Sex Assigned at Not on file Legal Sex Female 1:48 PM CDT Gender Identity Not on file Sexual Orientation Not on file documented as of this encounter Progress Notes * Abena Teresa RN - 01/15/2024 10:59 AM CDT Notes from [place] calendar Referral from PCP Dr. Craig [phone] for moderate mitral stenosis and recent CVA. Pt has not seen cardiology before. Records requested from Dr. Craig's office including clinic note, labs, echo,and any pertinent vascular testing. RP 01/15/24 Records received and sent for pre-load and scanning 01/15/2024 C/P into epic * Juan Crouch RN - 01/15/2024 10:16 AM CDT Tomasa called from PCP Dr. Craig's office. They would like to refer this patient to Dr. Carnes in [place] for mitral disease with moderate stenosis and cerebral vascular disease with recent CVA. Appointment scheduled first available on 01/18/24 at 12:00 pm at [facility] with Dr. Carnes per Tomasa's request.Tomasa will inform patient of appointment and fax records to [phone]. She v/u and had no further questions. INTAKEReferral Source: Phone Call Insurance: [employer] Caller: PCP Caller Phone Number: In [facility] Symptoms/Consult for: Mitral disease with moderate stenosis and cerebral vascular disease with recent CVA Request Records-fax to [phone]: Yes Current [facility] Patient: No Recent hospitalizations: No Ever seen a chainstitch tunnel elastic operator in the past: No Requested appt timeframe: First available with Dr. Carnes in [place] Recent testing/labs: Requested Appt Date/time: 01/18/24 at 12:00 pm [facility] Provider:[facility] offered: Pending Letter/WS mailed/NA: No due to time frame Care Team: Updated documented in this encounter Plan of Treatment Upcoming Encounters Date Type Department Care Team (Late st Contact Info) Description 01/17/2025 8:00 AM CDT Appointment [facility] [address] [place] [address] Judie Carnes MD [address] [place] [phone] 01/20/2025 10:30 AM CDT Office Visit [facility] [address] [place] [address] [address] Judie Carnes MD [address] [place] [address] documented as of this encounter Visit Diagnoses Not on filedocumented in this encounter Care Teams Sliver Lap Tender Relationship Specialty Start Date End Date William Craig MD [address] [place] [address] PCP - General INTERNAL MEDICINE 01/15/24 Judie Carnes MD [address] [place] [address] Section Hospital Aides And Assistants Teacher CARDIOVASCULAR DISEASE 01/15/24 documented as of this encounter
--- OUTSIDE RECORDS SUMMARY | 2024-06-28 21:40 | XMS_ITS | Encounter Summary ---
Author Organization [facility] Address [facility] [facility] [place] [address] [place] [address] Care Team Providers Care Convention Planner Name Role Phone William Craig MD Primary Care Provider [phone] Judie Carnes MD Unavailable Reason for Visit * Reason Comments CT (SCAN) Encounter Details Date Type Department Care Team (Late st Contact Info) Description 11/24/2023 [facility] [address] [place] [address] Scanned, Doc Pccl CT (SCAN) Social History Tobacco Use Types Packs/Day [...] Info) Description 01/17/2025 8:00 AM CDT Appointment [facility] [address] [address] Judie Carnes MD [address] [place] [phone] 01/20/2025 10:30 AM CDT Office Visit [facility] [address] [place] [address] Judie Carnes MD [address] [place], [place] [phone] documented as of this encounter Procedures Procedure Name Priority Date/Time Associated Diagnosis Comments CT GENERIC Routine 11/24/2023 12:00 AM CDT documented in this encounter Results * CT (11/24/2023 12:00 AM CDT) Anatomical Region Laterality Modality Other 11/24/2023 us Doc Pccl Scanned SCANNING Final Result documented in this encounter Visit Diagnoses Not on filedocumented in this encounter Care Teams Convention Planner Relationship Specialty Start Date End Date William Craig MD [address] [place] [phone] PCP - General INTERNAL MEDICINE 01/15/24 Judie Carnes MD [address] [place] [address] [place] Bilingual Speech Language Pathologist CARDIOVASCULAR DISEASE 01/15/24 documented as of this encounter
--- OUTSIDE RECORDS SUMMARY | 2024-06-28 21:40 | XMS_ITS | Encounter Summary ---
Author Organization [facility] Address [facility] [place] [address] [place] [address] Care Team Providers Care Eligibility Worker Name Role Phone William Craig MD Primary Care Provider [phone] Judie Carnes MD Unavailable Encounter Details Date Type Department Care Team (Late st Contact Info) Description 01/15/2024 Scan [facility] [address] [place] [address] Scanned, Doc Pccl Social History Tobacco Use [...] Info) Description 01/17/2025 8:00 AM CDT Appointment [facility] [address] [place] [address] Judie Carnes MD [address] [place] [phone] 01/20/2025 10:30 AM CDT Office Visit [facility] [address] [place] [address] Judie Carnes MD [address] [place] [address] documented as of this encounter Visit Diagnoses Not on filedocumented in this encounter Care Teams Eligibility Worker Relationship Specialty Start Date End Date William Craig MD [address] [place] [phone] PCP - General INTERNAL MEDICINE 01/15/24 Judie Carnes MD [address] [place] [address] [place] Featheredger And Reducer Machine CARDIOVASCULAR DISEASE 01/15/24 documented as of this encounter
--- OUTSIDE RECORDS SUMMARY | 2024-06-28 21:40 | XMS_ITS | Encounter Summary ---
Author Organization [facility] Address [facility]6 [facility] [place] [address] [place] [address] Care Team Providers Care Professor Of Economics Name Role Phone William Craig MD Primary Care Provider [phone] Judie Carnes MD Unavailable Reason for Referral * Imaging (Routine) - Pending Review Specialty Diagnoses / Procedures Referred By Contac t Referred To Contact RADIOLOGY Diagnoses Mitral valve stenosis, unspecified etiology Cerebrovascular accident (CVA) due to other mechanism ([facility]) Essential (primary) hypertension Procedures USE ECHOCARDIOGRAM Judie Carnes MD [address] [place] [address] Phone: tel: fax: Referral ID Status Reason Start Date Expiration Date V isits Requested Visits Authorized [id number] Pending Review 01/18/2024 02/17/2025 1 1 * (Routine) - New Request Specialty Diagnoses / Procedures Referred By Contac t Referred To Contact Diagnoses Mitral valve stenosis, unspecified etiology Cerebrovascular accident (CVA) due to other mechanism ([facility]) Essential (primary) hypertension Procedures CLINIC - [id number] [facility] - Today Judie Carnes MD [address] [place] [address] Phone: tel: fax: Referral ID Status Reason Start Date Expiration Date V isits Requested Visits Authorized [id number] New Request 01/18/2024 01/17/2025 1 1 Reason for Visit * Reason Comments Heart Problem Encounter Details Date Type Department Care Team (Late st Contact Info) Description 01/18/2024 12:00 PM CDT Office Visit [facility] [place] [address] Judie Carnes MD [address] [place] [address] Heart Problem Social History Tobacco Use Types Packs/Day Years Used Date Smoking Tobacco: Former Cigarettes Comments Unknown Sex and Gender Information Value Date Recorded Sex Assigned at Not on file Legal Sex Female 1:48 PM CDT Gender Identity Not on file Sexual Orientation Not on file documented as of this encounter Last Filed Vital Signs Vital Sign Reading Time Taken Comments Blood Pressure 131/59 01/18/2024 1:39 PM CDT Pulse 69 01/18/2024 1:39 PM CDT Temperature - - Respiratory Rate 16 01/18/2024 1:39 PM CDT Oxygen Saturation 98% 01/18/2024 1:39 PM CDT Inhaled Oxygen Concentration - - Weight 62.8 kg (138 lb 6.4 oz) 01/18/2024 1:39 P M CDT Height 160 cm (5' 3 ) 01/18/2024 1:39 PM CDT Body Mass Index 24.52 01/18/2024 1:39 PM CDT documented in this encounter Patient Instructions * Patient Instructions* Sukumar Frank RN - 01/18/2024 12:00 PM CDT Plan: Continue current meds 30day heart monitor Return to clinic in 1 year with an echo prior. documented in this encounter Progress Notes * Sukumar Frank RN - 01/18/2024 12:00 PM CDTAddended by: SUKUMAR FRANK on: 01/18/2024 01:43 PM Modules accepted: Orders * Judie Carnes MD - 01/18/2024 12:00 PM CDT Reason for Visit: No chief complaint on file. History of Present Illness: Patient is seen in consultation for mitral valve disease with moderate stenosis and cerebral vascular disease with recent CVA. 63 F PMX MS, bilateral carotid bruit, history of CVA, HTN, HLD, DM, former smoker. Patient is accompanied in the office with her significant other. Patient presented in November 2023 with strokelike symptoms with blurry vision. The workup revealed multiple old infarcts in the left frontal lobe and right temporal parietal region. There was also a subacute infarct in the left occipital lobe. She underwent CTA of the neck which showed no bilateral ICA stenosis there was some vertebral artery concerns. She was evaluated by neurology who placed her ondual antiplatelets as well as statin therapy for 1 month thereafter she is advised to continue aspirin and statin for lifelong. I concur with these recommendations I advised patient to not discontinue these medications without further evaluation or advisement by cardiology moving forward. She also had a monitor which was nearly 30 days long which did not reveal any atrial arrhythmias to suggest any cardioembolic causes of her prior infarction or her current stroke. She also underwent an echocardiogram which revealed overall preserved LVEF moderate mitral stenosis and trace TR. Patient today has no congestive findings on exam she has no dysrhythmia complaints of any palpitations, she denies any syncope presyncope symptoms she also has no orthopnea or lower extremity edema she denies any chest pain. In office EKG was performed today which I personally reviewed it is notable for sinus rhythm, left atrial enlargement at a rate of 63 and a blood pressure of 131/59. Recommendations and Plan: Investigation: 01/03 TTE: EF 60 to 65%, mild LVH, DD G1 mild aortic valve sclerosis moderate mitral valve stenosis(mitral valve area 1.3 cm??, mean gradient 12), trace TR PASP 33 12/03 HM: Sinus rhythm, AVG HR 69 bpm, no atrial arrhythmias 12/03 CT brain/neck: Subacute infarct in the left occipital lobe, old infarcts involving the left frontal lobe and right temporal parietal region, no bilateral ICA stenosis noted of any significance 11/03 CR 0.97, LFT WNL, Hgb 11.8 PLT 187 Assessment: In summary 63 F PMX MS, bilateral carotid bruit, history of CVA, HTN, HLD, DM, former smoker who presents to establish cardiovascular care for her mitral stenosis. Patient appears to be well compensated from both her rhythm and congestive heart failure standpoint. Plan: C/t meds 30day MCT Return to clinic in 1 year with an echo prior. The echo is to be performed with bubble studies CC PCP Greater than 50 minutes was spent reviewing patient's medical history and EMR records. Medications: Current Outpatient Medications: amLODIPine (NORVASC) 5 MG [...] total) by mouth daily., Disp: , Rfl: No Known Allergies Past Medical History: Diagnosis Date Bilateral carotid bruits Diabetes ([facility]) Type 2 Dizziness and giddiness Essential (primary) hypertension Hyperlipidemia Labile hypertension w/LVH Mitral valve disease No past surgical history on file. Social History Tobacco Use Smoking status: Former Types: Cigarettes Vaping Use Vaping status: Every Day Family History Problem Relation Name Age of Onset Hypertension Father Hyperlipidemia Father Diabetes Father Diabetes Brother Hyperlipidemia Brother Hypertension Brother Stroke Maternal Grandmother Family Status Relation Name Status Mother Father Brother (Not Specified) MGM (Not Specified) No partnership data on file Review of Systems Constitutional: Negative for recent unintentional weight gain, recent unintentional weight loss andnew or significant fatigue. HENT: Negative for new or significant hearing loss. Eyes: Negative for blurred vision and double vision. Respiratory: Negative for cough, new or significant shortness of breath and snoring. Cardiovascular: See HPI. Gastrointestinal: Negative for blood in stool and melena. Genitourinary: Negative for dysuria. Musculoskeletal: Negative for myalgias and new or worsening joint stiffness/pain. Skin: Negative for rash. Neurological: Negative for tingling/numbness and focal weakness. Endo/Heme/Allergies: Negative for new or significant bruising/bleeding and polydipsia. Psychiatric/Behavioral: Negative for depression and new or significant memory loss. There were no vitals filed for this visit. There is no height or weight on file to calculate BMI. Cardiac Exam Rate/Rhythm: Normal rate and regular rhythm. PMI: PMI is not displaced. Pulses: Normal pulses. Femoral pulses are 2+ on the right side and 2+ on the left side. Heart Sounds: Normal heart sounds. Normal S1 sounds. Normal S2 sounds. No gallop present. No S3. NoS4. Murmurs: Physical Exam Constitutional: No distress. Healthy Appearance. HENT: Oropharynx clear. Eyes: Pupils equal, round, and reactive to light. Conjunctivae normal. Neck: Neck supple. No JVD. Abdomen: Abdomen soft. Bowel sounds normal. No tenderness. No mass. No hepatomegaly. No splenomegaly. Abdominal aorta not palpably enlarged. No abdominal bruit present. Pulmonary: Effort normal. Breath sounds normal. Skin: No rash. No cyanosis. No clubbing. No xanthoma. Musculoskeletal: No kyphosis. Normal ROM. Neurological: Alert. Oriented x 3. Appropriate mood and affect. Normal motor skills. Normal gait. Comments: Diagnoses/Impression: No diagnosis found. Referring Provider: No ref. provider found PCP: WILLIAM CRAIG MD documented in this encounter Plan of Treatment Upcoming Encounters Date Type Department Care Team (Late st Contact Info) Description 01/17/2025 8:[address] [facility] [address] [place] [address] Judie Carnes MD [address] [place] [phone] 01/20/2025 10:30 AM CDT Office Visit [facility] [place] [address] Judie Carnes MD [address] [place], [place] [address] Scheduled Orders Name Type Priority Associated Diagnoses Orde r Schedule CLINIC - [address] MCT - Today EKG-NonRad Routine Mitral valve stenosis, unspecified etiology Cerebrovascular accident (CVA) due to other mechanism ([facility]) Essential (primary) hypertension Expected: 01/18/2024, Expires: 01/17/2025 USE ECHOCARDIOGRAM ECHO Routine Mitral valve stenosis, unspecified etiology Cerebrovascular accident (CVA) due to other mechanism ([facility]) Essential (primary) hypertension Expected: 01/17/2025, Expires: 07/20/2025 documented as of this encounter Visit Diagnoses Diagnosis Mitral valve stenosis, unspecified etiology- Primary Cerebrovascular accident (CVA) due to other mechanism ([facility]) Essential (primary) hypertension Unspecified essential hypertension Hyperlipidemia, mixed Mixed hyperlipidemia documented in this encounter Care Teams Professor Of Economics Relationship Specialty Start Date End Date William Craig MD [address] [place] [phone] PCP - General INTERNAL MEDICINE 01/15/24 Judie Carnes MD [address] [place] [address] [facility] Clin Tech CARDIOVASCULAR DISEASE 01/15/24 documented as of this encounter
--- OUTSIDE RECORDS SUMMARY | 2024-06-28 21:40 | XMS_ITS | Encounter Summary ---
Author Organization [facility] Address [facility]6 [facility] [place] [address] [place] [address] Care Team Providers Care Corporate Coordinator Name Role Phone William Craig MD Primary Care Provider [phone] Judie Carnes MD Unavailable Reason for Visit * Reason Comments Echo (SCAN) Encounter Details Date Type Department Care Team (Late st Contact Info) Description 02/03/2022 Scan [facility] [address] [place] [address] Scanned, Doc Pccl Echo (SCAN) Social History Tobacco Use Types Packs/Day [...] 8:[address] [facility] [address] [address] Judie Carnes MD [address] [place] [phone] 01/20/2025 10:30 AM CDT [facility] [address] [place] [address] Judie Carnes MD [address] [place], [place] [phone] documented as of this encounter Procedures Procedure Name Priority Date/Time Associated Diagnosis Comments ECHO GENERIC (SCAN ORDER) Routine 02/03/2022 12:00 AM CDT documented in this encounter Results * ECHO (02/03/2022 12:00 AM CDT) Anatomical Region Laterality Modality Other 02/03/2022 us Doc Pccl Scanned SCANNING Final Result documented in this encounter Visit Diagnoses Not on filedocumented in this encounter Care Teams Corporate Coordinator Relationship Specialty Start Date End Date William Craig MD [address] [place] [phone] PCP - General INTERNAL MEDICINE 01/15/24 Judie Carnes MD [address] [place] [address] [place] Steamtable Worker CARDIOVASCULAR DISEASE 01/15/24 documented as of this encounter
--- OUTSIDE RECORDS SUMMARY | 2024-06-28 21:40 | XMS_ITS | Encounter Summary ---
Author Organization [facility] Address [facility]6 [facility] [place] [address] [place] [address] Care Team Providers Care Hard Rock Miner Name Role Phone William Craig MD Primary Care Provider [phone] Judie Carnes MD Unavailable Reason for Visit * Reason Comments ECG (SCAN) Encounter Details Date Type Department Care Team (Late st Contact Info) Description 11/16/2023 Scan [facility] [address] [place] [address] Scanned, Doc Pccl ECG (SCAN) Social History Tobacco Use Types Packs/Day [...] Info) Description 01/17/2025 8:00 AM CDT Appointment [facility] [address] [address] Judie Carnes MD [address] [place] [phone] 01/20/2025 10:30 AM CDT [facility] [address] [address] Judie Carnes MD [address] [place] [phone] documented as of this encounter Procedures Procedure Name Priority Date/Time Associated Diagnosis Comments ECG GENERIC (SCAN ORDER) Routine 11/16/2023 12:00 AM CDT documented in this encounter Results * ECG (11/16/2023 12:00 AM CDT) 11/16/2023 us Doc Pccl Scanned SCANNING Final Result [facility] documented in this encounter Visit Diagnoses Not on filedocumented in this encounter Care Teams Hard Rock Miner Relationship Specialty Start Date End Date William Craig MD [address] [place] [address] PCP - General INTERNAL MEDICINE 01/15/24 Judie Carnes MD [address] [place] [address] T[place] Cook Pie CARDIOVASCULAR DISEASE 01/15/24 documented as of this encounter
--- OUTSIDE RECORDS SUMMARY | 2024-06-28 21:40 | XMS_ITS | Encounter Summary ---
Author Organization [facility] Address [facility]6 [place] [address] [place] [address] Care Team Providers Care Felt Cutting Machine Operator Name Role Phone William Craig MD Primary Care Provider [phone] Judie Carnes MD Unavailable Reason for Visit * Reason Comments Echo (SCAN) Encounter Details Date Type Department Care Team (Late st Contact Info) Description 01/07/2024 Scan [facility] [address] [place] [address] Scanned, Doc Pccl Echo (SCAN) [...] Appointment [facility] [address] [address] Judie Carnes MD [address] [place] [phone] 01/20/2025 10:30 AM CDT Office Visit [facility] [address] [address] Judie Carnes MD [address] [place], [place] [address] documented as of this encounter Procedures Procedure Name Priority Date/Time Associated Diagnosis Comments ECHO GENERIC (SCAN ORDER) Routine 01/07/2024 12:00 AM CDT documented in this encounter Results * ECHO (01/07/2024 12:00 AM CDT) Anatomical Region Laterality Modality Other 01/07/2024 us Doc Pccl Scanned SCANNING Final Result documented in this encounter Visit Diagnoses Not on filedocumented in this encounter Care Teams Felt Cutting Machine Operator Relationship Specialty Start Date End Date William Craig MD [address] [place] [address] PCP - General INTERNAL MEDICINE 01/15/24 Judie Carnes MD [address] [place] [address] [place] Vacuum Drum Drier Operator CARDIOVASCULAR DISEASE 01/15/24 documented as of this encounter
--- OUTSIDE RECORDS SUMMARY | 2024-06-28 21:42 | XMS_ITS | Referral Summary ---
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 Role Phone William Craig MD Primary Care Provider [phone] Encounters Date Type Department Care Team Description 04/20/2024 3:32 AM CDT - 05/03/2024 3:33 PM CDT Hospital Encounter [address] [id number] Mindy Tabor MD Volkerding, MD Jan Fuchs Yu, MD Altwal, MD Ivon Lopez Mathew S., DO Chapagain, Akhil, MD Chowdhury, Farhanaz, MD Cerebrovascular accident (CVA), unspecified mechanism (HCC) (Primary Dx) Discharge Disposition: Discharge to SNF 04/22/2024 9:55 AM CDT Anesthesia Event [facility]iac [facility] [address] [place] [id number] Sharon Betancourt MD Ertel, Michelle N., CRNA 04/19/2024 5:20 PM CDT - 04/19/2024 11:59 PM CDT Hospital Encounter [facility] Outside [address] [address] Discharge Disposition: Discharge to home or self care 04/19/2024 Documentation [facility] [address] [phone] Mindy Tabor MD from Last 3 Months Allergies Active Allergy Reactions Criticality Noted Date Comments Lisinopril Other (See comments) Low 10/27/2008 Cough Medications rosuvastatin (CRESTOR) 20 mg tablet Take 1 tablet (20 mg total) by mouth nightly Active leflunomide (ARAVA) 20 mg tabletIndicatio ns:Rheumatoid Arthritis Take 1 tablet (20 mg total) by mouth daily Active clopidogreL (PLAVIX) 75 mg tablet Take 1 tablet (75 mg total) by mouth daily Active verapamil SR (CALAN SR) 180 mg CR tablet Take 1 tablet (180 mg total) by mouth daily Active tamsulosin (FLOMAX) 0.4 mg extended release capsule Take 1 capsule (0.4 mg total) by mouth daily Active FLUoxetine (PROzac) 20 mg tablet Take 1 tablet (20 mg total) by mouth daily Active hydrOXYzine (ATARAX) 25 mg tablet Take 1 tablet (25 mg total) by mouth every 6 (six) hours as needed for anxiety Active ondansetron (ZOFRAN) 4 mg tablet Take 1 tablet (4 mg total) by mouth every 8 (eight) hours as needed for nausea or vomiting Active rivaroxaban (XARELTO) 2.5 mg tabletIndicatio ns:deep venous thrombosis Take 6 tablets (15 mg total) by mouth 2 (two) times a day with meals for 17 days, THEN 8 tablets (20 mg total) daily with dinner. 444 tablet 4 Active divalproex (DEPAKOTE SPRINKLE) 125 mg capsule Take 4 capsules (500 mg total) by mouth 2 (two) times a day 4 04/28/20 25 Active peg 400-hypromellos e-glycerin (ARTIFICAL TEARS) 1-0.2-0.2 % ophthalmic solution Administer 1 drop into both eyes 3 (three) times a day as needed for dry eyes 4 Active acetaminophen (TYLENOL) 650 mg suppositoryIndi cations:Headach e Disorder,Pain Insert 1 suppository (650 mg total) into the rectum every 6 (six) hours as needed for headaches or pain 4 Active ergocalciferol (VITAMIN D) 50,000 unit capsule Take 1 capsule (50,000 Units total) by mouth once a week for 7 doses 4 Active docusate sodium (COLACE) 100 mg capsuleIndicati ons:constipatio n Take 1 capsule (100 mg total) by mouth daily as needed for constipation 12 capsule Active Active Problems Problem Noted Date Diagnosed Date Coronary atheroma 04/22/2024 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 Altered mental status, unspe cified altered mental status type 04/20/2024 UTI (urinary tract infection) 04/20/2024 CVA (cerebral vascular accident) 04/20/2024 Type 2 diabetes mellitus 11/23/2023 Rheumatoid arthritis 12/21/2012 Overview (10/16/2016): Rheumatoid arthritis High risk drug monitoring status 12/21/2012 Overview (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 No 04/20/2024 Social Connection and Isolat ion Panel [NHANES] Answer Date Recorded In a typical week, how many times do you talk on the phone with family, friends, or neighbors? More than three times a week 04/20/2024 How often do you get togethe r with friends or relatives? Twice a week 04/20/2024 How often do you attend [facility] or druze services? 1 to 4 times per year 04/20/2024 Do you belong to any clubs o r organizations such as restorationism groups, unions, fraternal or athletic groups, or school groups? No 04/20/2024 How often do you attend meet ings of the clubs or organizations you belong to? Never 04/20/2024 Are you , , di vorced, , never , or living with a partner? 04/20/2024 AUDIT-C Answer Date Recorded Q1: How often do you have a drink containing alcohol? Never 04/20/2024 Q2: How many drinks containi ng alcohol do you have on a typical day when you are drinking? Patient does not drink Q3: How often do you have si x or more drinks on one occasion? Never 04/20/2024 Overall Financial Resource Strain (CARDIA) Answe r Date Recorded How hard is it for you to pa y for the very basics like food, housing, medical care, and heating? Not hard at all 04/20/2024 Hunger Vital Sign Answer Date Recorded Within the past 12 months, y ou worried that your food would run out before you got the money to buy more. Never true 04/20/20 24 Within the past 12 months, t he food you bought just didn't last and you didn't have money to get more. Never true 04/20/2024 PRAPARE - Transportation Answer Date Re corded In the past 12 months, has l ack of transportation kept you from medical appointments or from getting medications? No 03/2024 In the past 12 months, has l ack of transportation kept you from meetings, work, or from getting things needed for daily living? No 04/20/2024 Housing Stability Vital Sign Answer Piotr e Recorded In the last 12 months, was t here a time when you were not able to pay the mortgage or rent on time? No 04/20/2024 In the past 12 months, how m any times have you moved where you were living? 0 04/20/2024 At any time in the past 12 m [facility], were you homeless or living in a care home (including now)? No 04/20/2024 Personal Safety Answer Date Recorded Have you ever been in or are you currently in a harmful physical or emotional relationship or is someone making you feel afraid or unsafe? 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 Gender Identity Not on file Sexual Orientation Not on file Last Filed Vital Signs Vital Sign Reading Time Taken Comments Blood Pressure 118/71 05/03/2024 3:00 PM CDT Pulse 92 05/03/2024 3:00 PM CDT Temperature 36.7 ??C (98 ??F) 05/03/2024 3:00 PM CDT Respiratory Rate 20 05/03/2024 3:00 PM CDT Oxygen Saturation 98% 05/03/2024 3:00 PM CDT Inhaled Oxygen Concentration - - Weight 57.2 kg (126 lb) 05/01/2024 4:22 AM CDT Height 162.6 cm (5' 4 ) 04/20/2024 7:59 AM CDT Body Mass Index 21.63 04/20/2024 7:59 AM CDT Plan of Treatment Not on file Medical Devices Implanted Type Area Signaling Design Engineer Device Identifier Shelf Expiration Date Model / Serial / Lot Breast Breast Breast Procedures Procedure Name Priority Date/Time Associated Diagnosis Comments POCT GLUCOSE DEVICE Routine 05/03/2024 1 1:28 AM CDT POCT GLUCOSE DEVICE Routine 05/03/2024 7 :54 AM CDT POCT GLUCOSE DEVICE Routine 05/02/2024 8 :42 PM CDT POCT GLUCOSE DEVICE Routine 05/02/2024 4 :45 PM CDT POCT GLUCOSE DEVICE Routine 05/02/2024 1 1:54 AM CDT POCT GLUCOSE DEVICE Routine 05/02/2024 8 :08 AM CDT EGFR Timed 05/01/2024 11:47 PM CDT DIFFERENTIAL AUTO Timed 05/01/2024 11: 47 PM CDT RENAL FUNCTION PANEL Timed 05/01/2024 11:47 PM CDT CBC WITH AUTO DIFFERENTIAL Timed 05/01/2024 11:47 PM CDT POCT GLUCOSE DEVICE Routine 05/01/2024 7 :56 PM CDT POCT GLUCOSE DEVICE Routine 05/01/2024 4 :33 PM CDT POCT GLUCOSE DEVICE Routine 05/01/2024 1 1:19 AM CDT POCT GLUCOSE DEVICE Routine 05/01/2024 7:09 AM CDT EGFR Routine 05/01/2024 7:09 AM CDT DIFFERENTIAL AUTO Routine 05/01/2024 7:0 9 AM CDT MAGNESIUM Routine 05/01/2024 7:09 AM CDT COMPREHENSIVE METABOLIC PANEL Routine 05/01/2024 7:09 AM CDT CBC WITH AUTO DIFFERENTIAL Routine 05/01/2024 7:09 AM CDT POCT GLUCOSE DEVICE Routine 04/30/2024 8 :32 PM CDT POCT GLUCOSE DEVICE Routine 04/30/2024 4 :42 PM CDT POCT GLUCOSE DEVICE Routine 04/30/2024 1 1:50 AM CDT EGFR Routine 04/30/2024 10:01 AM CDT DIFFERENTIAL AUTO Routine 04/30/2024 10: 01 AM CDT MAGNESIUM Routine 04/30/2024 10:01 AM CDT COMPREHENSIVE METABOLIC PANEL Routine 04/30/2024 10:01 AM CDT CBC WITH AUTO DIFFERENTIAL Routine 04/30/2024 10:01 AM CDT POCT GLUCOSE DEVICE Routine 04/30/2024 8 :19 AM CDT POCT GLUCOSE DEVICE Routine 04/29/2024 7 :50 PM CDT POCT GLUCOSE DEVICE Routine 04/29/2024 4 :00 PM CDT POCT GLUCOSE DEVICE Routine 04/29/2024 1 2:01 PM CDT POCT GLUCOSE DEVICE Routine 04/29/2024 7 :16 AM CDT EGFR Timed 04/29/2024 12:18 AM CDT DIFFERENTIAL AUTO Timed 04/29/2024 12: 18 AM CDT RENAL FUNCTION PANEL Timed 04/29/2024 12:18 AM CDT CBC WITH AUTO DIFFERENTIAL Timed 04/29/2024 12:18 AM CDT POCT GLUCOSE DEVICE Routine 04/28/2024 8 :11 PM CDT POCT GLUCOSE DEVICE Routine 04/28/2024 4 :48 PM CDT POCT GLUCOSE DEVICE Routine 04/28/2024 1 1:35 AM CDT POCT GLUCOSE DEVICE Routine 04/28/2024 7 :48 AM CDT POCT GLUCOSE DEVICE Routine 04/27/2024 8 :13 PM CDT POCT GLUCOSE DEVICE Routine 04/27/2024 4 :22 PM CDT POCT GLUCOSE DEVICE Routine 04/27/2024 1 1:48 AM CDT POCT GLUCOSE DEVICE Routine 04/27/2024 7 :33 AM CDT EGFR Timed 04/27/2024 12:42 AM CDT DIFFERENTIAL AUTO Timed 04/27/2024 12: 42 AM CDT RENAL FUNCTION PANEL Timed 04/27/2024 12:42 AM CDT CBC WITH AUTO DIFFERENTIAL Timed 04/27/2024 12:42 AM CDT POCT GLUCOSE DEVICE Routine 04/26/2024 7 :58 PM CDT POCT GLUCOSE DEVICE Routine 04/26/2024 4 :21 PM CDT POCT GLUCOSE DEVICE Routine 04/26/2024 1 1:11 AM CDT POCT GLUCOSE DEVICE Routine 04/26/2024 7 :11 AM CDT POCT GLUCOSE DEVICE Routine 04/25/2024 8 :23 PM CDT POCT GLUCOSE DEVICE Routine 04/25/2024 4 :27 PM CDT POCT GLUCOSE DEVICE Routine 04/25/2024 1 1:14 AM CDT POCT GLUCOSE DEVICE Routine 04/25/2024 7 :33 AM CDT EGFR Routine 04/25/2024 6:42 AM CDT DIFFERENTIAL AUTO Routine 04/25/2024 6:4 2 AM CDT RENAL FUNCTION PANEL Routine 04/25/2024 6:42 AM CDT CBC WITH AUTO DIFFERENTIAL Routine 04/25/2024 6:42 AM CDT POCT GLUCOSE DEVICE Routine 04/24/2024 8 :03 PM CDT POCT GLUCOSE DEVICE Routine 04/24/2024 4 :[address] HEAD WO CONTRAST IP Routine 04/24/2024 4 :25 PM CDT POCT GLUCOSE DEVICE Routine 04/24/2024 1 1:47 AM CDT US CAROTIDS DUPLEX BILATERAL IP Routine 04/24/2024 9:07 AM CDT POCT GLUCOSE DEVICE Routine 04/24/2024 7 :29 AM CDT EGFR Routine 04/24/2024 7:01 AM CDT DIFFERENTIAL AUTO Routine 04/24/2024 7:0 1 AM CDT MAGNESIUM Add-On 04/24/2024 7:01 AM CDT RENAL FUNCTION PANEL Routine 04/24/2024 7:01 AM CDT CBC WITH AUTO DIFFERENTIAL Routine 04/24/2024 7:01 AM CDT ECG 12-LEAD STAT 04/24/2024 12:14 AM CDT POCT GLUCOSE DEVICE Routine 04/23/2024 8 :31 PM CDT POCT GLUCOSE DEVICE Routine 04/23/2024 4 :55 PM CDT POCT GLUCOSE DEVICE Routine 04/23/2024 1 1:54 AM CDT EGFR Routine 04/23/2024 10:24 AM CDT DIFFERENTIAL AUTO Routine 04/23/2024 10: 24 AM CDT RENAL FUNCTION PANEL Routine 04/23/2024 10:24 AM CDT CBC WITH AUTO DIFFERENTIAL Routine 04/23/2024 10:24 AM CDT POCT GLUCOSE DEVICE Routine 04/23/2024 8 :02 AM CDT POCT GLUCOSE DEVICE Routine 04/22/2024 7 :53 PM CDT CTA CHEST ABDOMEN PELVIS IP Routine 04/22/2024 5:25 PM CDT POCT GLUCOSE DEVICE Routine 04/22/2024 4 :03 PM CDT POCT GLUCOSE DEVICE Routine 04/22/2024 1 2:02 PM CDT TRANSESOPHAGEAL ECHO (SHIVAM) W DOPPLER/CF WO CONTRAST Routine 04/22/2024 10:00 AM CDT POCT GLUCOSE DEVICE Routine 04/22/2024 7 :17 AM CDT EGFR Routine 04/22/2024 7:16 AM CDT DIFFERENTIAL AUTO Routine 04/22/2024 7:1 6 AM CDT RENAL FUNCTION PANEL Routine 04/22/2024 7:16 AM CDT CBC WITH AUTO DIFFERENTIAL Routine 04/22/2024 7:16 AM CDT POCT GLUCOSE DEVICE Routine 04/21/2024 7 :59 PM CDT POCT GLUCOSE DEVICE Routine 04/21/2024 4 :57 PM CDT EEG Routine 04/21/2024 1:48 PM CDT POCT GLUCOSE DEVICE Routine 04/21/2024 1 2:05 PM CDT POCT GLUCOSE DEVICE Routine 04/21/2024 8 :05 AM CDT POCT GLUCOSE DEVICE Routine 04/20/2024 9 :30 PM CDT POCT GLUCOSE DEVICE Routine 04/20/2024 4 :26 PM CDT CTA HEAD NECK W WO CONTRAST IP Routine 04/20/2024 2:42 PM CDT POCT GLUCOSE DEVICE Routine 04/20/2024 1 2:12 PM CDT MRI BRAIN WO CONTRAST IP Routine 04/20/2024 11:32 AM CDT XR CHEST 1 VIEW IP Routine 04/20/2024 8:23 AM CDT POCT GLUCOSE DEVICE Routine 04/20/2024 8 :09 AM CDT EGFR STAT 04/20/2024 4:24 AM CDT DIFFERENTIAL AUTO Routine 04/20/2024 4:2 4 AM CDT MAGNESIUM STAT 04/20/2024 4:24 AM CDT COMPREHENSIVE METABOLIC PANEL STAT 04/20/2024 4:24 AM CDT LIPID PANEL Routine 04/20/2024 4:24 AM CDT THYROID FUNCTION CASCADE Routine 04/20/2024 4:24 AM CDT HEMOGLOBIN A1C Routine 04/20/2024 4:24 AM CDT VITAMIN D 25 HYDROXY Routine 04/20/2024 4:24 AM CDT VITAMIN B12 Routine 04/20/2024 4:24 AM CDT AMMONIA Routine 04/20/2024 4:24 AM CDT LACTATE Routine 04/20/2024 4:24 AM CDT PHOSPHORUS Routine 04/20/2024 4:24 AM CDT CBC WITH AUTO DIFFERENTIAL Routine 04/20/2024 4:[address] OUTSIDE REFERENCE Routine 04/19/2024 5:20 PM CDT from Last 3 Months Results * POCT glucose (05/03/2024 11:28 AM CDT) Glucose, POC 174 70 - 199 mg/dL Glucose comment 1 Use This Result NADINE CANCHOLA Blood 05/03/2024 11:2 8 AM CDT 05/03/2024 11:28 AM CDT Hailey Carney MD LAB POCT ORDERABLES - CALDERON CE Final Result Performing Organization Address City/[facility] Co de Phone Number [address] [place] [address] * POCT glucose (05/03/2024 7:54 AM CDT) Glucose, POC 121 70 - 199 mg/dL Glucose comment 1 Use This Result [facility] Blood 05/03/2024 7:5 4 AM CDT 05/03/2024 7:54 AM CDT Hailey Carney MD LAB POCT ORDERABLES - CALDERON CE Final Result Performing Organization Address [facility] de Phone Number [address] [place] [address] * POCT glucose (05/02/2024 8:42 PM CDT) Glucose, POC 138 70 - 199 mg/dL Glucose comment 1 Use This Result NADINE Blood 05/02/2024 8:42 PM CDT 05/02/2024 8:42 PM CDT Thang Del Valle DO LAB POCT ORDERABLES - D EVICE Final Result Performing Organization Address City/[facility] Co de Phone Number [address] [place] [address] * POCT glucose (05/02/2024 4:45 PM CDT) Glucose, POC 139 70 - 199 mg/dL Glucose comment 1 Use This Result NADINE Blood 05/02/2024 4:45 PM CDT 05/02/2024 4:45 PM CDT Thang S. Kalapurayil DO LAB POCT ORDERABLES - D EVICE Final Result Performing Organization Address [facility] de Phone Number NADINE [address] [place] [address] * POCT glucose (05/02/2024 11:54 AM CDT) Glucose, POC 142 70 - 199 mg/dL Blood 05/02/2024 11:5 4 AM CDT 05/02/2024 11:54 AM CDT Thang Maganayil DO LAB POCT ORDERABLES - D EVICE Final Result Performing Organization Address [facility] de Phone Number NADINE [address] [address] * POCT glucose (05/02/2024 8:08 AM CDT) [facility] Glucose, POC 124 70 - 199 mg/dL Glucose comment 1 Use This Result [facility] Blood 05/02/2024 8:08 AM CDT 05/02/2024 8:08 AM CDT Thang Scotturayil DO LAB POCT ORDERABLES - D EVICE Final Result Performing Organization Address [facility] de Phone Number [address] [place] [address] * eGFR (05/01/2024 11:47 PM CDT) Pathologist [facility] eGFR >90 >=60 mL/min/1. 73 m2 Comment: Interpretive Data Reference Interval Normal ?>/= 90 mL/min/1.73m2 Mildly decreased* ? 60 - 89 mL/min/1.73m2 Mildly to moderately decreased ?45 - 59 mL/min/1.73m2 Moderately to severely decreased ??30 - 44 mL/min/1.73m2 Severely decreased ?15 - 29 mL/min/1.73m2 Kidney Failure ?< 15 ??mL/min/1.73m2 *Relative to young adult level Estimated glomerular filtration rate is determined by the 2020 CKD-EPI equation recommended by the National Kidney Foundation (A Unifying Approach to GFR Estimation: Recommendations of the NKF-ASK Task Force on Reassessing the Inclusion of Race in Diagnosing Kidney Disease, JASN 2020). The CKD-EPI equation should not be used for patients with unstable renal function and has not been validated in children and those over 70. Current interpretive data was last reviewed 2021. Blood 05/01/2024 11:4 7 PM CDT 05/01/2024 11:52 PM CDT Pricilla Andino MD LAB BLOOD ORDERABLES Final Resul t [facility] [address] [facility] [place] [address] * Differential, auto (05/01/2024 11:47 PM CDT) Pathologist [facility] Neutrophil abs 2.3 1.5 - 6.5 K/cumm Imm gran abs 0.0 0.0 - 0.1 K/cumm [facility] Lymphocyte abs 1.4 0.8 - 3.3 K/cumm [facility] Monocyte abs 0.7 0.2 - 0.8 K/cumm [facility] Eosinophil abs 0.4 0.0 - 0.5 K/cumm [facility] Basophil abs 0.1 0.0 - 0.1 K/cumm [facility] Neutrophil pct 46.8 % [facility] Comment: Interpretive Data Percent cell count reference ranges are not reported, since discordance with absolute values may lead to misinterpretation of CBC data. Current Interpretive Data was last revised on 2017. Imm gran pct 0.2 % [facility] Comment: Interpretive Data Percent cell count reference ranges are not reported, since discordance with absolute values may lead to misinterpretation of CBC data. Current Interpretive Data was last revised on 2017. Lymphocyte pct 29.1 % [facility] Comment: Interpretive Data Percent cell count reference ranges are not reported, since discordance with absolute values may lead to misinterpretation of CBC data. Current Interpretive Data was last revised on 2017. Monocyte pct 13.6 % [facility] Comment: Interpretive Data Percent cell count reference ranges are not reported, since discordance with absolute values may lead to misinterpretation of CBC data. Current Interpretive Data was last revised on 2017. Eosinophil pct 8.9 % [facility] Comment: Interpretive Data Percent cell count reference ranges are not reported, since discordance with absolute values may lead to misinterpretation of CBC data. Current Interpretive Data was last revised on 2017. Basophil pct 1.4 % [facility] Comment: Interpretive Data Percent cell count reference ranges are not reported, since discordance with absolute values may lead to misinterpretation of CBC data. Current Interpretive Data was last revised on 2017. Blood 05/01/2024 11:4 7 PM CDT 05/01/2024 11:52 PM CDT us Pricilla Andino MD LAB BLOOD ORDERABLES Final Resul t [facility] [address] [facility] [place] [address] * (ABNORMAL) CBC with auto differential (05/01/2024 11:47 PM CDT) WBC 4.9 3.8 - 9.9 K/cumm Hgb 8.3(L) 11.9 - 15.5 g/dL [facility] Hct 26.6(L) 35.6 - 45.5 % [facility] Plt 232 150 - 400 K/cumm [facility] MPV 10.6 9.1 - 12.3 fL [facility] RBC 3.05(L) 3.90 - 5.20 M/cumm [facility] MCV 87.2 81.3 - 96.4 fL [facility] MCH 27.2 27.1 - 33.3 pg [facility] MCHC 31.2(L) 32.3 - 35.7 g/dL [facility] RDW CV 15.1(H) 11.1 - 14.9 % [facility] RDW SD 47.7 35.7 - 48.1 fL [facility] NRBC abs 0.00 0.00 - 0.01 K/cumm [facility] Blood 05/01/2024 11:4 7 PM CDT 05/01/2024 11:52 PM CDT Pricilla Andino MD LAB BLOOD ORDERABLES Final Resul t [facility] [address] [facility] [place] [address] * Renal function panel (05/01/2024 11:47 PM CDT) Sodium 141 135 - 145 mmol/L Potassium, pl 4.2 3.3 - 4.9 mmol/L [facility] Comment:Hemolyzed; Potassium value may be falsely elevated by as much as 1.0 mmol/L. Suggest redraw and reanalysis. Chloride 104 97 - 110 mmol/L [facility] CO2 27 22 - 32 mmol/L [facility] Anion gap 10 2 - 15 mmol/L [facility] BUN 25 6 - 25 mg/dL [facility] Creatinine 0.74 0.60 - 1.10 mg/dL [facility] Glucose 122 70 - 199 mg/dL [facility] Comment: Interpretive Data Fasting glucose >/= 126 mg/dl is diagnostic for diabetes. ?? Fasting is defined as no caloric intake for at least 8 hours. Fasting glucose between 100 mg/dl to 125 mg/dl is diagnostic of prediabetes. In a patient with classic symptoms of hyperglycemia or hyperglycemic crisis, a random glucose >/= 200 mg/dl is diagnostic for diabetes. In the absence of unequivocal hyperglycemia, results should be confirmed by repeat testing. The classification and Diagnosis of Diabetes Diabetes Care 202; 46: S19-S40. Current interpretive data was last revised 2022. Calcium 9.7 8.5 - 10.3 mg/dL [facility] Phosphorus, pl 3.9 2.3 - 4.5 mg/dL [facility] Albumin 3.8 3.5 - 5.0 g/dL [facility] Blood 05/01/2024 11:4 7 PM CDT 05/01/2024 11:52 PM CDT Pricilla Andino MD LAB BLOOD ORDERABLES Final Resul t Performing Organization Address City/[facility] Co de Phone Number HU[address] [place] [address] * POCT glucose (05/01/2024 7:56 PM CDT) Glucose, POC 147 70 - 199 mg/dL Glucose comment 1 Use This Result [facility] Blood 05/01/2024 7:56 PM CDT 05/01/2024 7:56 PM CDT Thang Del Valle DO LAB POCT ORDERABLES - D EVICE Final Result Performing Organization Address [facility] de Phone Number [address] [place] [address] * POCT glucose (05/01/2024 4:33 PM CDT) Glucose, POC 128 70 - 199 mg/dL Glucose comment 1 Use This Result [facility] Blood 05/01/2024 4:33 PM CDT 05/01/2024 4:33 PM CDT Thang Del Valle DO LAB POCT ORDERABLES - D EVICE Final Result Performing Organization Address City/[facility] Co de Phone Number [address] [place] [address] * POCT glucose (05/01/2024 11:19 AM CDT) Glucose, POC 151 70 - 199 mg/dL Glucose comment 1 Use This Result [facility] Blood 05/01/2024 11:1 9 AM CDT 05/01/2024 11:19 AM CDT us Thang Del Valle DO LAB POCT ORDERABLES - D EVICE Final Result Performing Organization Address [facility] Co de Phone Number NADINE [address] [facility] [place] [address] * eGFR (05/01/2024 7:09 AM CDT) eGFR >90 >=60 mL/min/1. 73 m2 Comment: Interpretive Data Reference Interval Normal ?>/= 90 mL/min/1.73m2 Mildly decreased* ? 60 - 89 mL/min/1.73m2 Mildly to moderately decreased ?45 - 59 mL/min/1.73m2 Moderately to severely decreased ??30 - 44 mL/min/1.73m2 Severely decreased ?15 - 29 mL/min/1.73m2 Kidney Failure ?< 15 ??mL/min/1.73m2 *Relative to young adult level Estimated glomerular filtration rate is determined by the 2020 CKD-EPI equation recommended by the National Kidney Foundation (A Unifying Approach to GFR Estimation: Recommendations of the NKF-ASK Task Force on Reassessing the Inclusion of Race in Diagnosing Kidney Disease, JASN 2020). The CKD-EPI equation should not be used for patients with unstable renal function and has not been validated in children and those over 70. Current interpretive data was last reviewed 2021. Blood 05/01/2024 7:09 AM CDT 05/01/2024 7:48 AM CDT us Thang Del Valle DO LAB BLOOD ORDERABLES Fi nal Result Performing Organization Address [facility] Co de Phone Number NADINE [facility] [place] [address] * Differential, auto (05/01/2024 7:09 AM CDT) Pathologist [facility] Neutrophil abs 2.7 1.5 - 6.5 K/cumm Imm gran abs 0.0 0.0 - 0.1 K/cumm [facility] Lymphocyte abs 1.5 0.8 - 3.3 K/cumm [facility] Monocyte abs 0.8 0.2 - 0.8 K/cumm [facility] Eosinophil abs 0.5 0.0 - 0.5 K/cumm [facility] Basophil abs 0.1 0.0 - 0.1 K/cumm [facility] Neutrophil pct 48.3 % [facility] Comment: Interpretive Data Percent cell count reference ranges are not reported, since discordance with absolute values may lead to misinterpretation of CBC data. Current Interpretive Data was last revised on 2017. Imm gran pct 0.2 % [facility] Comment: Interpretive Data Percent cell count reference ranges are not reported, since discordance with absolute values may lead to misinterpretation of CBC data. Current Interpretive Data was last revised on 2017. Lymphocyte pct 26.2 % [facility] Comment: Interpretive Data Percent cell count reference ranges are not reported, since discordance with absolute values may lead to misinterpretation of CBC data. Current Interpretive Data was last revised on 2017. Monocyte pct 14.2 % [facility] Comment: Interpretive Data Percent cell count reference ranges are not reported, since discordance with absolute values may lead to misinterpretation of CBC data. Current Interpretive Data was last revised on 2017. Eosinophil pct 9.7 % [facility] Comment: Interpretive Data Percent cell count reference ranges are not reported, since discordance with absolute values may lead to misinterpretation of CBC data. Current Interpretive Data was last revised on 2017. Basophil pct 1.4 % [facility] Comment: Interpretive Data Percent cell count reference ranges are not reported, since discordance with absolute values may lead to misinterpretation of CBC data. Current Interpretive Data was last revised on 2017. Blood 05/01/2024 7:09 AM CDT 05/01/2024 7:48 AM CDT Thang Del Valle DO LAB BLOOD ORDERABLES Fi nal Result NADINE [address] [place] [address] * POCT glucose (05/01/2024 7:09 AM CDT) [facility] Glucose, POC 122 70 - 199 mg/dL Glucose comment 1 Use This Result [facility] Blood 05/01/2024 7:09 AM CDT 05/01/2024 7:09 AM CDT Thang Mateo Del Valle DO LAB POCT ORDERABLES - D EVICE Final Result Performing Organization Address City/[facility] Co de Phone Number NADINE [address] [place] [address] * (ABNORMAL) CBC with auto differential (05/01/2024 7:09 AM CDT) [facility] WBC 5.6 3.8 - 9.9 K/cumm Hgb 8.9(L) 11.9 - 15.5 g/dL [facility] Hct 28.5(L) 35.6 - 45.5 % [facility] Plt 236 150 - 400 K/cumm [facility] MPV 10.8 9.1 - 12.3 fL [facility] RBC 3.26(L) 3.90 - 5.20 M/cumm [facility] MCV 87.4 81.3 - 96.4 fL [facility] MCH 27.3 27.1 - 33.3 pg [facility] MCHC 31.2(L) 32.3 - 35.7 g/dL [facility] RDW CV 14.9 11.1 - 14.9 % [facility] RDW SD 47.7 35.7 - 48.1 fL [facility] NRBC abs 0.00 0.00 - 0.01 K/cumm [facility] Blood 05/01/2024 7:09 AM CDT 05/01/2024 7:48 AM CDT Thang ScottGoNoggingl DO LAB BLOOD ORDERABLES Fi nal Result Performing Organization Address City/[facility] Co de Phone Number [address] [place] [address] * Magnesium (05/01/2024 7:09 AM CDT) [facility] Magnesium 2.1 1.4 - 2.5 mg/dL Blood 05/01/2024 7:09 AM CDT 05/01/2024 7:48 AM CDT Thang ScottGoNoggingglenys LAB BLOOD ORDERABLES Fi nal Result Performing Organization Address [facility] de Phone Number [address] [place] [address] * (ABNORMAL) Comprehensive metabolic panel (05/01/2024 7:09 AM CDT) [facility] Sodium 144 135 - 145 mmol/L Potassium, pl 3.8 3.3 - 4.9 mmol/L [facility] Chloride 107 97 - 110 mmol/L [facility] CO2 27 22 - 32 mmol/L [facility] Anion gap 10 2 - 15 mmol/L [facility] BUN 26(H) 6 - 25 mg/dL [facility] Creatinine 0.72 0.60 - 1.10 mg/dL [facility] Glucose 114 70 - 199 mg/dL [facility] Comment: Interpretive Data Fasting glucose >/= 126 mg/dl is diagnostic for diabetes. ?? Fasting is defined as no caloric intake for at least 8 hours. Fasting glucose between 100 mg/dl to 125 mg/dl is diagnostic of prediabetes. In a patient with classic symptoms of hyperglycemia or hyperglycemic crisis, a random glucose >/= 200 mg/dl is diagnostic for diabetes. In the absence of unequivocal hyperglycemia, results should be confirmed by repeat testing. The classification and Diagnosis of Diabetes Diabetes Care 202; 46: S19-S40. Current interpretive data was last revised 2022. Calcium 9.8 8.5 - 10.3 mg/dL [facility] Bilirubin, total 0.3 0.1 - 1.2 mg/dL [facility] Protein, pl 6.5 6.5 - 8.5 g/dL [facility] Albumin 3.8 3.5 - 5.0 g/dL [facility] Alk phos 69 40 - 130 Units/L [facility] ALT 9 7 - 45 Units/L [facility] AST 29 10 - 45 Units/L [facility] Blood 05/01/2024 7:09 AM CDT 05/01/2024 7:48 AM CDT Thang Frenchapurayil DO LAB BLOOD ORDERABLES Fi nal Result NADINE [address] [place] [address] * POCT glucose (04/30/2024 8:32 PM CDT) Glucose, POC 117 70 - 199 mg/dL Glucose comment 1 Use This Result [facility] Blood 04/30/2024 8:32 PM CDT 04/30/2024 8:32 PM CDT Thang Scotturayil DO LAB POCT ORDERABLES - D EVICE Final Result Performing Organization Address City/[facility] Co de Phone Number HUGO[address] [place] [address] * POCT glucose (04/30/2024 4:42 PM CDT) Glucose, POC 157 70 - 199 mg/dL Glucose comment 1 Use This Result [facility] Glucose comment 2 RN/MD Notified [facility] Blood 04/30/2024 4:42 PM CDT 04/30/2024 4:42 PM CDT Thang Frenchapurayil DO LAB POCT ORDERABLES - D EVICE Final Result Performing Organization Address City/[facility]/ZIP Co de Phone Number [address] [place] [address] * POCT glucose (04/30/2024 11:50 AM CDT) Glucose, POC 123 70 - 199 mg/dL Glucose comment 1 Use This Result NADINE [facility] Blood 04/30/2024 11:5 0 AM CDT 04/30/2024 11:50 AM CDT Thang Del Valle DO LAB POCT ORDERABLES - D EVICE Final Result NADINE [facility] [address] [facility] [place] [address] * eGFR (04/30/2024 10:01 AM CDT) eGFR >90 >=60 mL/min/1. 73 m2 Comment: Interpretive Data Reference Interval Normal ?>/= 90 mL/min/1.73m2 Mildly decreased* ? 60 - 89 mL/min/1.73m2 Mildly to moderately decreased ?45 - 59 mL/min/1.73m2 Moderately to severely decreased ??30 - 44 mL/min/1.73m2 Severely decreased ?15 - 29 mL/min/1.73m2 Kidney Failure ?< 15 ??mL/min/1.73m2 *Relative to young adult level Estimated glomerular filtration rate is determined by the 2020 CKD-EPI equation recommended by the National Kidney Foundation (A Unifying Approach to GFR Estimation: Recommendations of the NKF-ASK Task Force on Reassessing the Inclusion of Race in Diagnosing Kidney Disease, JASN 2020). The CKD-EPI equation should not be used for patients with unstable renal function and has not been validated in children and those over 70. Current interpretive data was last reviewed 2021. Blood 04/30/2024 10:0 1 AM CDT 04/30/2024 10:17 AM CDT us Thang Del Valle DO LAB BLOOD ORDERABLES Fi nal Result NADINE [address] [facility] [place] [address] * (ABNORMAL) Differential, auto (04/30/2024 10:01 AM CDT) Pathologist [facility] Neutrophil abs 2.8 1.5 - 6.5 K/cumm Imm gran abs 0.0 0.0 - 0.1 K/cumm [facility] Lymphocyte abs 1.6 0.8 - 3.3 K/cumm [facility] Monocyte abs 0.7 0.2 - 0.8 K/cumm [facility] Eosinophil abs 0.6(H) 0.0 - 0.5 K/cumm [facility] Basophil abs 0.1 0.0 - 0.1 K/cumm [facility] Neutrophil pct 48.9 % [facility] Comment: Interpretive Data Percent cell count reference ranges are not reported, since discordance with absolute values may lead to misinterpretation of CBC data. Current Interpretive Data was last revised on 2017. Imm gran pct 0.2 % [facility] Comment: Interpretive Data Percent cell count reference ranges are not reported, since discordance with absolute values may lead to misinterpretation of CBC data. Current Interpretive Data was last revised on 2017. Lymphocyte pct 27.7 % [facility] Comment: Interpretive Data Percent cell count reference ranges are not reported, since discordance with absolute values may lead to misinterpretation of CBC data. Current Interpretive Data was last revised on 2017. Monocyte pct 11.4 % [facility] Comment: Interpretive Data Percent cell count reference ranges are not reported, since discordance with absolute values may lead to misinterpretation of CBC data. Current Interpretive Data was last revised on 2017. Eosinophil pct 10.2 % [facility] Comment: Interpretive Data Percent cell count reference ranges are not reported, since discordance with absolute values may lead to misinterpretation of CBC data. Current Interpretive Data was last revised on 2017. Basophil pct 1.6 % [facility] Comment: Interpretive Data Percent cell count reference ranges are not reported, since discordance with absolute values may lead to misinterpretation of CBC data. Current Interpretive Data was last revised on 2017. Blood 04/30/2024 10:0 1 AM CDT 04/30/2024 10:17 AM CDT Thang Del Valle DO LAB BLOOD ORDERABLES Fi nal Result Performing Organization Address [facility] Co de Phone Number NADINE [address] [place] [address] * (ABNORMAL) CBC with auto differential (04/30/2024 10:01 AM CDT) WBC 5.7 3.8 - 9.9 K/cumm Hgb 9.1(L) 11.9 - 15.5 g/dL [facility] Hct 28.5(L) 35.6 - 45.5 % [facility] Plt 233 150 - 400 K/cumm [facility] MPV 10.7 9.1 - 12.3 fL [facility] RBC 3.27(L) 3.90 - 5.20 M/cumm [facility] MCV 87.2 81.3 - 96.4 fL [facility] MCH 27.8 27.1 - 33.3 pg [facility] MCHC 31.9(L) 32.3 - 35.7 g/dL [facility] RDW CV 15.0(H) 11.1 - 14.9 % [facility] RDW SD 47.3 35.7 - 48.1 fL [facility] NRBC abs 0.00 0.00 - 0.01 K/cumm [facility] Blood 04/30/2024 10:0 1 AM CDT 04/30/2024 10:17 AM CDT Thang Del Valle DO LAB BLOOD ORDERABLES Fi nal Result Performing Organization Address [facility]/ZIP Co de Phone Number NADINE [address] [place] [address] * Magnesium (04/30/2024 10:01 AM CDT) Pathologist [facility] Magnesium 2.3 1.4 - 2.5 mg/dL Blood 04/30/2024 10:0 1 AM CDT 04/30/2024 10:17 AM CDT Thang Del Valle DO LAB BLOOD ORDERABLES Fi nal Result [facility] [address] [facility] [place] [address] * Comprehensive metabolic panel (04/30/2024 10:01 AM CDT) Pathologist [facility] Sodium 145 135 - 145 mmol/L Potassium, pl 3.7 3.3 - 4.9 mmol/L [facility] Chloride 106 97 - 110 mmol/L [facility] CO2 28 22 - 32 mmol/L [facility] Anion gap 11 2 - 15 mmol/L [facility] BUN 24 6 - 25 mg/dL [facility] Creatinine 0.72 0.60 - 1.10 mg/dL [facility] Glucose 112 70 - 199 mg/dL [facility] Comment: Interpretive Data Fasting glucose >/= 126 mg/dl is diagnostic for diabetes. ?? Fasting is defined as no caloric intake for at least 8 hours. Fasting glucose between 100 mg/dl to 125 mg/dl is diagnostic of prediabetes. In a patient with classic symptoms of hyperglycemia or hyperglycemic crisis, a random glucose >/= 200 mg/dl is diagnostic for diabetes. In the absence of unequivocal hyperglycemia, results should be confirmed by repeat testing. The classification and Diagnosis of Diabetes Diabetes Care 202; 46: S19-S40. Current interpretive data was last revised 2022. Calcium 9.5 8.5 - 10.3 mg/dL [facility] Bilirubin, total 0.3 0.1 - 1.2 mg/dL [facility] Protein, pl 6.6 6.5 - 8.5 g/dL [facility] Albumin 4.0 3.5 - 5.0 g/dL [facility] Alk phos 70 40 - 130 Units/L [facility] ALT 10 7 - 45 Units/L [facility] AST 25 10 - 45 Units/L [facility] Blood 04/30/2024 10:0 1 AM CDT 04/30/2024 10:17 AM CDT Thang Del Valle DO LAB BLOOD ORDERABLES Fi nal Result Performing Organization Address City/[facility]/ZIP Co de Phone Number NADINE [address] [place] [address] * POCT glucose (04/30/2024 8:19 AM CDT) Glucose, POC 127 70 - 199 mg/dL Blood 04/30/2024 8:19 AM CDT 04/30/2024 8:19 AM CDT Thang Del Valle DO LAB POCT ORDERABLES - D EVICE Final Result Performing Organization Address City/[facility] Co de Phone Number HUGO[address] [place] [address] * POCT glucose (04/29/2024 7:50 PM CDT) Glucose, POC 124 70 - 199 mg/dL Glucose comment 1 Use This Result NADINE Blood 04/29/2024 7:50 PM CDT 04/29/2024 7:50 PM CDT Giancarlo Durant MD LAB POCT ORDERABLES - DEVIC E Final Result Performing Organization Address City/[facility] Co de Phone Number HUGO[address] [place] [address] * POCT glucose (04/29/2024 4:00 PM CDT) Glucose, POC 133 70 - 199 mg/dL Glucose comment 1 Use This Result [facility] Glucose comment 2 RN/MD Notified NAD[facility] Blood 04/29/2024 4:00 PM CDT 04/29/2024 4:00 PM CDT Giancarlo Durant MD LAB POCT ORDERABLES - DEVIC E Final Result Performing Organization Address [facility] de Phone Number HUGO[address] [address] * POCT glucose (04/29/2024 12:01 PM CDT) Glucose, POC 128 70 - 199 mg/dL Glucose comment 1 Use This Result [facility] Glucose comment 2 RN/MD Notified [facility] Blood 04/29/2024 12:0 1 PM CDT 04/29/2024 12:01 PM CDT us Giancarlo Durant MD LAB POCT ORDERABLES - DEVIC E Final Result Performing Organization Address [facility] de Phone Number [address] [address] * POCT glucose (04/29/2024 7:16 AM CDT) [facility] Glucose, POC 132 70 - 199 mg/dL Glucose comment 1 Use This Result [facility] Glucose comment 2 RN/MD Notified [facility] Blood 04/29/2024 7:16 AM CDT 04/29/2024 7:16 AM CDT us Giancarlo Durant MD LAB POCT ORDERABLES - DEVIC E Final Result Performing Organization Address [facility] de Phone Number [address] [address] * eGFR (04/29/2024 12:18 AM CDT) eGFR 88 >=60 mL/min/1. 73 m2 Comment: Interpretive Data Reference Interval Normal ?>/= 90 mL/min/1.73m2 Mildly decreased* ? 60 - 89 mL/min/1.73m2 Mildly to moderately decreased ?45 - 59 mL/min/1.73m2 Moderately to severely decreased ??30 - 44 mL/min/1.73m2 Severely decreased ?15 - 29 mL/min/1.73m2 Kidney Failure ?< 15 ??mL/min/1.73m2 *Relative to young adult level Estimated glomerular filtration rate is determined by the 2020 CKD-EPI equation recommended by the National Kidney Foundation (A Unifying Approach to GFR Estimation: Recommendations of the NKF-ASK Task Force on Reassessing the Inclusion of Race in Diagnosing Kidney Disease, JASN 2020). The CKD-EPI equation should not be used for patients with unstable renal function and has not been validated in children and those over 70. Current interpretive data was last reviewed 2021. Blood 04/29/2024 12:1 8 AM CDT 04/29/2024 12:39 AM CDT us Pricilla Andino MD LAB BLOOD ORDERABLES Final Resul t [facility] [address] [facility] [place], [place] [id number] * Differential, auto (04/29/2024 12:18 AM CDT) Pathologist [facility] Neutrophil abs 3.3 1.5 - 6.5 K/cumm Imm gran abs 0.0 0.0 - 0.1 K/cumm [facility] Lymphocyte abs 2.2 0.8 - 3.3 K/cumm [facility] Monocyte abs 0.7 0.2 - 0.8 K/cumm [facility] Eosinophil abs 0.5 0.0 - 0.5 K/cumm [facility] Basophil abs 0.1 0.0 - 0.1 K/cumm [facility] Neutrophil pct 48.8 % [facility] Comment: Interpretive Data Percent cell count reference ranges are not reported, since discordance with absolute values may lead to misinterpretation of CBC data. Current Interpretive Data was last revised on 2017. Imm gran pct 0.3 % [facility] Comment: Interpretive Data Percent cell count reference ranges are not reported, since discordance with absolute values may lead to misinterpretation of CBC data. Current Interpretive Data was last revised on 2017. Lymphocyte pct 31.9 % [facility] Comment: Interpretive Data Percent cell count reference ranges are not reported, since discordance with absolute values may lead to misinterpretation of CBC data. Current Interpretive Data was last revised on 2017. Monocyte pct 10.5 % [facility] Comment: Interpretive Data Percent cell count reference ranges are not reported, since discordance with absolute values may lead to misinterpretation of CBC data. Current Interpretive Data was last revised on 2017. Eosinophil pct 7.3 % [facility] Comment: Interpretive Data Percent cell count reference ranges are not reported, since discordance with absolute values may lead to misinterpretation of CBC data. Current Interpretive Data was last revised on 2017. Basophil pct 1.2 % [facility] Comment: Interpretive Data Percent cell count reference ranges are not reported, since discordance with absolute values may lead to misinterpretation of CBC data. Current Interpretive Data was last revised on 2017. Blood 04/29/2024 12:1 8 AM CDT 04/29/2024 12:39 AM CDT us Pricilla Andino MD LAB BLOOD ORDERABLES Final Resul t [facility] [address] [facility] [place] [address] * (ABNORMAL) CBC with auto differential (04/29/2024 12:18 AM CDT) WBC 6.8 3.8 - 9.9 K/cumm Hgb 9.0(L) 11.9 - 15.5 g/dL [facility] Hct 27.8(L) 35.6 - 45.5 % [facility] Plt 249 150 - 400 K/cumm [facility] MPV 10.6 9.1 - 12.3 fL [facility] RBC 3.26(L) 3.90 - 5.20 M/cumm [facility] MCV 85.3 81.3 - 96.4 fL [facility] MCH 27.6 27.1 - 33.3 pg [facility] MCHC 32.4 32.3 - 35.7 g/dL [facility] RDW CV 14.8 11.1 - 14.9 % [facility] RDW SD 45.7 35.7 - 48.1 fL [facility] NRBC abs 0.00 0.00 - 0.01 K/cumm [facility] Blood 04/29/2024 12:1 8 AM CDT 04/29/2024 12:39 AM CDT Pricilla Andino MD LAB BLOOD ORDERABLES Final Resul t [facility] [address] [facility] [place] [address] * (ABNORMAL) Renal function panel (04/29/2024 12:18 AM CDT) Sodium 143 135 - 145 mmol/L Potassium, pl 3.7 3.3 - 4.9 mmol/L [facility] Chloride 106 97 - 110 mmol/L [facility] CO2 27 22 - 32 mmol/L [facility] Anion gap 10 2 - 15 mmol/L [facility] BUN 29(H) 6 - 25 mg/dL [facility] Creatinine 0.76 0.60 - 1.10 mg/dL [facility] Glucose 144 70 - 199 mg/dL [facility] Comment: Interpretive Data Fasting glucose >/= 126 mg/dl is diagnostic for diabetes. ?? Fasting is defined as no caloric intake for at least 8 hours. Fasting glucose between 100 mg/dl to 125 mg/dl is diagnostic of prediabetes. In a patient with classic symptoms of hyperglycemia or hyperglycemic crisis, a random glucose >/= 200 mg/dl is diagnostic for diabetes. In the absence of unequivocal hyperglycemia, results should be confirmed by repeat testing. The classification and Diagnosis of Diabetes Diabetes Care 2021; 46: S19-S40. Current interpretive data was last revised 2022. Calcium 10.2 8.5 - 10.3 mg/dL [facility] Phosphorus, pl 3.7 2.3 - 4.5 mg/dL [facility] Albumin 3.9 3.5 - 5.0 g/dL [facility] Blood 04/29/2024 12:1 8 AM CDT 04/29/2024 12:39 AM CDT Pricilla Andino MD LAB BLOOD ORDERABLES Final Resul t Performing Organization Address City/[facility] Co de Phone Number NADINE [address] [place] [address] * POCT glucose (04/28/2024 8:11 PM CDT) Glucose, POC 153 70 - 199 mg/dL Glucose comment 1 Use This Result [facility] Blood 04/28/2024 8:11 PM CDT 04/28/2024 8:11 PM CDT Giancarlo Durant MD LAB POCT ORDERABLES - DEVIC E Final Result Performing Organization Address City/[facility] de Phone Number [address] [place] [address] * POCT glucose (04/28/2024 4:48 PM CDT) Glucose, POC 109 70 - 199 mg/dL Glucose comment 1 Use This Result [facility] Blood 04/28/2024 4:48 PM CDT 04/28/2024 4:48 PM CDT Giancarlo Durant MD LAB POCT ORDERABLES - DEVIC E Final Result Performing Organization Address City/[facility] de Phone Number [address] [place] [address] * POCT glucose (04/28/2024 11:35 AM CDT) Glucose, POC 162 70 - 199 mg/dL Glucose comment 1 Use This Result [facility] Blood 04/28/2024 11:3 5 AM CDT 04/28/2024 11:35 AM CDT Result [facility] Giancarlo Durant MD LAB POCT ORDERABLES - DEVIC E Final Result Performing Organization Address [facility] Co de Phone Number NADINE [address] [place] [address] * POCT glucose (04/28/2024 7:48 AM CDT) Glucose, POC 118 70 - 199 mg/dL Glucose comment 1 Use This Result [facility] Blood 04/28/2024 7:48 AM CDT 04/28/2024 7:48 AM CDT Giancarlo Durant MD LAB POCT ORDERABLES - DEVIC E Final Result Performing Organization Address [facility] de Phone Number [address] [place] [address] * POCT glucose (04/27/2024 8:13 PM CDT) Glucose, POC 124 70 - 199 mg/dL Glucose comment 1 Use This Result [facility] Blood 04/27/2024 8:13 PM CDT 04/27/2024 8:13 PM CDT Giancarlo Durant MD LAB POCT ORDERABLES - DEVIC E Final Result Performing Organization Address [facility] de Phone Number [address] [address] * POCT glucose (04/27/2024 4:22 PM CDT) Glucose, POC 114 70 - 199 mg/dL Glucose comment 1 Use This Result [facility] Blood 04/27/2024 4:22 PM CDT 04/27/2024 4:22 PM CDT Giancarlo Durant MD LAB POCT ORDERABLES - DEVIC E Final Result Performing Organization Address [facility] Co de Phone Number [address] [place] [address] * POCT glucose (04/27/2024 11:48 AM CDT) Glucose, POC 140 70 - 199 mg/dL Glucose comment 1 Use This Result [facility] Blood 04/27/2024 11:4 8 AM CDT 04/27/2024 11:48 AM CDT Giancarlo Durant MD LAB POCT ORDERABLES - DEVIC E Final Result Performing Organization Address [facility] de Phone Number [address] [place] [address] * POCT glucose (04/27/2024 7:33 AM CDT) Glucose, POC 115 70 - 199 mg/dL Glucose comment 1 Use This Result [facility] Blood 04/27/2024 7:33 AM CDT 04/27/2024 7:33 AM CDT Giancarlo Durant MD LAB POCT ORDERABLES - DEVIC E Final Result Performing Organization Address [facility] de Phone Number [address] [place] [address] * eGFR (04/27/2024 12:42 AM CDT) eGFR >90 >=60 mL/min/1. 73 m2 Comment: Interpretive Data Reference Interval Normal ?>/= 90 mL/min/1.73m2 Mildly decreased* ? 60 - 89 mL/min/1.73m2 Mildly to moderately decreased ?45 - 59 mL/min/1.73m2 Moderately to severely decreased ??30 - 44 mL/min/1.73m2 Severely decreased ?15 - 29 mL/min/1.73m2 Kidney Failure ?< 15 ??mL/min/1.73m2 *Relative to young adult level Estimated glomerular filtration rate is determined by the 2020 CKD-EPI equation recommended by the National Kidney Foundation (A Unifying Approach to GFR Estimation: Recommendations of the NKF-ASK Task Force on Reassessing the Inclusion of Race in Diagnosing Kidney Disease, JASN 202). The CKD-EPI equation should not be used for patients with unstable renal function and has not been validated in children and those over 70. Current interpretive data was last reviewed 2021. Blood 04/27/2024 12:4 2 AM CDT 04/27/2024 1:12 AM CDT Pricilla Andino MD LAB BLOOD ORDERABLES Final Resul t [facility] [address] [facility] [place] [address] * (ABNORMAL) Differential, auto (04/27/2024 12:42 AM CDT) Pathologist [facility] Neutrophil abs 6.3 1.5 - 6.5 K/cumm Imm gran abs 0.1 0.0 - 0.1 K/cumm [facility] Lymphocyte abs 2.1 0.8 - 3.3 K/cumm [facility] Monocyte abs 0.8 0.2 - 0.8 K/cumm [facility] Eosinophil abs 0.6(H) 0.0 - 0.5 K/cumm [facility] Basophil abs 0.1 0.0 - 0.1 K/cumm [facility] Neutrophil pct 62.7 % [facility] Comment: Interpretive Data Percent cell count reference ranges are not reported, since discordance with absolute values may lead to misinterpretation of CBC data. Current Interpretive Data was last revised on 2017. Imm gran pct 1.4 % [facility] Comment: Interpretive Data Percent cell count reference ranges are not reported, since discordance with absolute values may lead to misinterpretation of CBC data. Current Interpretive Data was last revised on 2017. Lymphocyte pct 21.0 % [facility] Comment: Interpretive Data Percent cell count reference ranges are not reported, since discordance with absolute values may lead to misinterpretation of CBC data. Current Interpretive Data was last revised on 2017. Monocyte pct 8.1 % [facility] Comment: Interpretive Data Percent cell count reference ranges are not reported, since discordance with absolute values may lead to misinterpretation of CBC data. Current Interpretive Data was last revised on 2017. Eosinophil pct 5.6 % [facility] Comment: Interpretive Data Percent cell count reference ranges are not reported, since discordance with absolute values may lead to misinterpretation of CBC data. Current Interpretive Data was last revised on 2017. Basophil pct 1.2 % [facility] Comment: Interpretive Data Percent cell count reference ranges are not reported, since discordance with absolute values may lead to misinterpretation of CBC data. Current Interpretive Data was last revised on 2017. Blood 04/27/2024 12:4 2 AM CDT 04/27/2024 1:13 AM CDT Pricilla Andino MD LAB BLOOD ORDERABLES Final Resul t [place] [id number] [facility] [place] [address] * (ABNORMAL) CBC with auto differential (04/27/2024 12:42 AM CDT) WBC 10.0(H) 3.8 - 9.9 K/cumm Hgb 9.4(L) 11.9 - 15.5 g/dL [facility] Hct 29.5(L) 35.6 - 45.5 % [facility] Plt 270 150 - 400 K/cumm [facility] MPV 10.8 9.1 - 12.3 fL [facility] RBC 3.43(L) 3.90 - 5.20 M/cumm [facility] MCV 86.0 81.3 - 96.4 fL [facility] MCH 27.4 27.1 - 33.3 pg [facility] MCHC 31.9(L) 32.3 - 35.7 g/dL [facility] RDW CV 14.8 11.1 - 14.9 % [facility] RDW SD 46.2 35.7 - 48.1 fL [facility] NRBC abs 0.00 0.00 - 0.01 K/cumm [facility] Blood 04/27/2024 12:4 2 AM CDT 04/27/2024 1:13 AM CDT Pricilla Andino MD LAB BLOOD ORDERABLES Final Resul t [facility] [address] [facility] [place] [address] * Renal function panel (04/27/2024 12:42 AM CDT) Sodium 142 135 - 145 mmol/L Potassium, pl 3.6 3.3 - 4.9 mmol/L [facility] Chloride 106 97 - 110 mmol/L [facility] CO2 24 22 - 32 mmol/L [facility] Anion gap 12 2 - 15 mmol/L [facility] BUN 15 6 - 25 mg/dL [facility] Creatinine 0.70 0.60 - 1.10 mg/dL [facility] Glucose 112 70 - 199 mg/dL [facility] Comment: Interpretive Data Fasting glucose >/= 126 mg/dl is diagnostic for diabetes. ?? Fasting is defined as no caloric intake for at least 8 hours. Fasting glucose between 100 mg/dl to 125 mg/dl is diagnostic of prediabetes. In a patient with classic symptoms of hyperglycemia or hyperglycemic crisis, a random glucose >/= 200 mg/dl is diagnostic for diabetes. In the absence of unequivocal hyperglycemia, results should be confirmed by repeat testing. The classification and Diagnosis of Diabetes Diabetes Care 202; 46: S19-S40. Current interpretive data was last revised 2022. Calcium 10.0 8.5 - 10.3 mg/dL [facility] Phosphorus, pl 3.5 2.3 - 4.5 mg/dL [facility] Albumin 4.0 3.5 - 5.0 g/dL [facility] Blood 04/27/2024 12:4 2 AM CDT 04/27/2024 1:12 AM CDT us Pricilla Andino MD LAB BLOOD ORDERABLES Final Resul t Performing Organization Address [facility] Co de Phone Number NADINE [address] [place] [address] * POCT glucose (04/26/2024 7:58 PM CDT) Glucose, POC 124 70 - 199 mg/dL Glucose comment 1 Use This Result [facility] Blood 04/26/2024 7:58 PM CDT 04/26/2024 7:58 PM CDT us Pricilla Andino MD LAB POCT ORDERABLES - DEVICE Fin al Result Performing Organization Address [facility] Co de Phone Number [address] [place] [address] * POCT glucose (04/26/2024 4:21 PM CDT) Glucose, POC 121 70 - 199 mg/dL Glucose comment 1 Use This Result [facility] Blood 04/26/2024 4:21 PM CDT 04/26/2024 4:21 PM CDT Pricilla Andino MD LAB POCT ORDERABLES - DEVICE Fin al Result Performing Organization Address City/[facility] Co de Phone Number [address] [place] [address] * POCT glucose (04/26/2024 11:11 AM CDT) Glucose, POC 136 70 - 199 mg/dL Glucose comment 1 Use This Result [facility] Blood 04/26/2024 11:1 1 AM CDT 04/26/2024 11:11 AM CDT us Pricilla Andino MD LAB POCT ORDERABLES - DEVICE Fin al Result Performing Organization Address City/[facility]/ZIP Co de Phone Number [address] [place] [address] * POCT glucose (04/26/2024 7:11 AM CDT) Glucose, POC 125 70 - 199 mg/dL Glucose comment 1 Use This Result [facility] Blood 04/26/2024 7:11 AM CDT 04/26/2024 7:11 AM CDT Pricilla Andino MD LAB POCT ORDERABLES - DEVICE Fin al Result Performing Organization Address [facility] Co de Phone Number [address] [place] [address] * POCT glucose (04/25/2024 8:23 PM CDT) Glucose, POC 136 70 - 199 mg/dL Blood 04/25/2024 8:23 PM CDT 04/25/2024 8:23 PM CDT Pricilla Andino MD LAB POCT ORDERABLES - DEVICE Fin al Result Performing Organization Address [facility] Co de Phone Number [address] [place] [address] * POCT glucose (04/25/2024 4:27 PM CDT) Glucose, POC 128 70 - 199 mg/dL Glucose comment 1 Use This Result [facility] Blood 04/25/2024 4:27 PM CDT 04/25/2024 4:27 PM CDT us Pricilla Andino MD LAB POCT ORDERABLES - DEVICE Fin al Result Performing Organization Address City/[facility] Co de Phone Number [address] [place] [address] * POCT glucose (04/25/2024 11:14 AM CDT) Glucose, POC 124 70 - 199 mg/dL Glucose comment 1 Use This Result [facility] Blood 04/25/2024 11:1 4 AM CDT 04/25/2024 11:14 AM CDT Pricilla Andino MD LAB POCT ORDERABLES - DEVICE Fin al Result Performing Organization Address [facility] de Phone Number [address] [place] [address] * POCT glucose (04/25/2024 7:33 AM CDT) Pathologist [facility] Glucose, POC 120 70 - 199 mg/dL Glucose comment 1 Use This Result [facility] Blood 04/25/2024 7:33 AM CDT 04/25/2024 7:33 AM CDT Pricilla Andino MD LAB POCT ORDERABLES - DEVICE Fin al Result Performing Organization Address [facility] de Phone Number [address] [place] [address] * eGFR (04/25/2024 6:42 AM CDT) [facility] eGFR >90 >=60 mL/min/1. 73 m2 Comment: Interpretive Data Reference Interval Normal ?>/= 90 mL/min/1.73m2 Mildly decreased* ? 60 - 89 mL/min/1.73m2 Mildly to moderately decreased ?45 - 59 mL/min/1.73m2 Moderately to severely decreased ??30 - 44 mL/min/1.73m2 Severely decreased ?15 - 29 mL/min/1.73m2 Kidney Failure ?< 15 ??mL/min/1.73m2 *Relative to young adult level Estimated glomerular filtration rate is determined by the 2020 CKD-EPI equation recommended by the National Kidney Foundation (A Unifying Approach to GFR Estimation: Recommendations of the NKF-ASK Task Force on Reassessing the Inclusion of Race in Diagnosing Kidney Disease, JASN 2020). The CKD-EPI equation should not be used for patients with unstable renal function and has not been validated in children and those over 70. Current interpretive data was last reviewed 2021. Blood 04/25/2024 6:42 AM CDT 04/25/2024 7:03 AM CDT us Pricilla Andino MD LAB BLOOD ORDERABLES Final Resul t [place] [id number] [facility] [place] [address] * (ABNORMAL) Differential, auto (04/25/2024 6:42 AM CDT) Neutrophil abs 5.6 1.5 - 6.5 K/cumm Imm gran abs 0.0 0.0 - 0.1 K/cumm [facility] Lymphocyte abs 1.9 0.8 - 3.3 K/cumm [facility] Monocyte abs 0.7 0.2 - 0.8 K/cumm [facility] Eosinophil abs 0.8(H) 0.0 - 0.5 K/cumm [facility] Basophil abs 0.1 0.0 - 0.1 K/cumm [facility] Neutrophil pct 61.4 % [facility] Comment: Interpretive Data Percent cell count reference ranges are not reported, since discordance with absolute values may lead to misinterpretation of CBC data. Current Interpretive Data was last revised on 2017. Imm gran pct 0.2 % [facility] Comment: Interpretive Data Percent cell count reference ranges are not reported, since discordance with absolute values may lead to misinterpretation of CBC data. Current Interpretive Data was last revised on 2017. Lymphocyte pct 21.0 % [facility] Comment: Interpretive Data Percent cell count reference ranges are not reported, since discordance with absolute values may lead to misinterpretation of CBC data. Current Interpretive Data was last revised on 2017. Monocyte pct 7.1 % [facility] Comment: Interpretive Data Percent cell count reference ranges are not reported, since discordance with absolute values may lead to misinterpretation of CBC data. Current Interpretive Data was last revised on 2017. Eosinophil pct 8.9 % [facility] Comment: Interpretive Data Percent cell count reference ranges are not reported, since discordance with absolute values may lead to misinterpretation of CBC data. Current Interpretive Data was last revised on 2017. Basophil pct 1.4 % [facility] Comment: Interpretive Data Percent cell count reference ranges are not reported, since discordance with absolute values may lead to misinterpretation of CBC data. Current Interpretive Data was last revised on 2017. Blood 04/25/2024 6:42 AM CDT 04/25/2024 7:03 AM CDT Pricilla Andino MD LAB BLOOD ORDERABLES Final Resul t [facility] [address] [facility] [place] [address] * (ABNORMAL) CBC with auto differential (04/25/2024 6:42 AM CDT) WBC 9.1 3.8 - 9.9 K/cumm Hgb 9.1(L) 11.9 - 15.5 g/dL [facility] Hct 28.7(L) 35.6 - 45.5 % [facility] Plt 259 150 - 400 K/cumm [facility] MPV 10.5 9.1 - 12.3 fL [facility] RBC 3.32(L) 3.90 - 5.20 M/cumm [facility] MCV 86.4 81.3 - 96.4 fL [facility] MCH 27.4 27.1 - 33.3 pg [facility] MCHC 31.7(L) 32.3 - 35.7 g/dL [facility] RDW CV 14.6 11.1 - 14.9 % [facility] RDW SD 46.5 35.7 - 48.1 fL [facility] NRBC abs 0.00 0.00 - 0.01 K/cumm [facility] Blood 04/25/2024 6:42 AM CDT 04/25/2024 7:03 AM CDT Pricilla Andino MD LAB BLOOD ORDERABLES Final Resul t Performing Organization Address City/[facility] Co de Phone Number NADINE [address] [place] [address] * Renal function panel (04/25/2024 6:42 AM CDT) [facility] Sodium 142 135 - 145 mmol/L Potassium, pl 3.6 3.3 - 4.9 mmol/L [facility] Chloride 107 97 - 110 mmol/L [facility] CO2 24 22 - 32 mmol/L [facility] Anion gap 11 2 - 15 mmol/L [facility] BUN 12 6 - 25 mg/dL [facility] Creatinine 0.71 0.60 - 1.10 mg/dL [facility] Glucose 117 70 - 199 mg/dL [facility] Comment: Interpretive Data Fasting glucose >/= 126 mg/dl is diagnostic for diabetes. ?? Fasting is defined as no caloric intake for at least 8 hours. Fasting glucose between 100 mg/dl to 125 mg/dl is diagnostic of prediabetes. In a patient with classic symptoms of hyperglycemia or hyperglycemic crisis, a random glucose >/= 200 mg/dl is diagnostic for diabetes. In the absence of unequivocal hyperglycemia, results should be confirmed by repeat testing. The classification and Diagnosis of Diabetes Diabetes Care 202; 46: S19-S40. Current interpretive data was last revised 2022. Calcium 9.6 8.5 - 10.3 mg/dL [facility] Phosphorus, pl 3.1 2.3 - 4.5 mg/dL [facility] Albumin 3.7 3.5 - 5.0 g/dL [facility] Blood 04/25/2024 6:42 AM CDT 04/25/2024 7:03 AM CDT us Pricilla Andino MD LAB BLOOD ORDERABLES Final Resul t Performing Organization Address City/[facility]/ZIP Co de Phone Number [address] [place] [address] * POCT glucose (04/24/2024 8:03 PM CDT) Glucose, POC 168 70 - 199 mg/dL Glucose comment 1 Use This Result [facility] Blood 04/24/2024 8:03 PM CDT 04/24/2024 8:03 PM CDT Pricilla Andino MD LAB POCT ORDERABLES - DEVICE Fin al Result Performing Organization Address [facility] de Phone Number [address] [place] [address] * POCT glucose (04/24/2024 4:35 PM CDT) Glucose, POC 123 70 - 199 mg/dL Glucose comment 1 Use This Result [facility] Blood 04/24/2024 4:35 PM CDT 04/24/2024 4:35 PM CDT Pricilla Andino MD LAB POCT ORDERABLES - DEVICE Fin al Result Performing Organization Address [facility] de Phone Number [address] [address] * CT Head WO Contrast (04/24/2024 4:25 PM CDT) Anatomical Region Laterality Modality Head and Neck N/A Computed Tomogra phy 04/24/2024 5:19 PM CDT Narrative 04/24/2024 5:25 PM CDT EXAM DESCRIPTION: CT HEAD WO CONTRAST REASON FOR STUDY: Follow-up stroke. ??No provided patient complaints to include no provided focal neurologic deficits. ??No provided history of trauma or inciting and/or aggravating events. ??History of hypertension and stroke. ??No provided surgical history. TECHNIQUE: Axial images acquired through the brain without intravenous contrast. ??Images stored on PACS. ?? Automated exposure control was used as a dose optimization technique for this examination. COMPARISON: CT head without contrast 04/19/2024; MRI brain without contrast 04/20/2024. FINDINGS: BRAIN: ?? No acute intra-axial hemorrhage, noting discontinuous cortical gyriform hyperintensity within areas of infarct consistent with components of cortical laminar necrosis. Redemonstration of amalgamation of acute through subacute infarcts and sequelae of prior infarcts extending variably about the bilateral cerebral architecture consistent with as better delineated on recent MR neuroimaging. ??Otherwise, there is ?? periventricular-subcortical ??as well as a patchy component of pontine ?? hypoattenuating white matter disease, nonspecific, though likely secondary to chronic microvascular ischemia. ??No significant edema and no mass effect, midline shift, or herniation. EXTRA-AXIAL SPACES: ?? No extra-axial fluid collection. ??No unenhanced CT evidence of extra-axial mass. ??Constellation of posterior disc osteophyte complexes, annular disc bulges and/or focal herniations, facet arthropathy, and uncovertebral joint disease produces multilevel variable spinal canal stenosis and neural foraminal stenosis. ?? CALVARIUM: ?? No acute calvarial fracture. SINUSES/MASTOIDS: ?? Visualized paranasal sinuses clear. ??Mastoid air cells well-developed and well aerated. ORBITS: ?? No acute abnormality. ??Ocular lenses and globes normal in conformation and position. OTHER: ?? No other significant abnormality. IMPRESSION: 1. ?? No acute intracranial hemorrhage with CT evolution of infarcts. 2. ?? Please reference recent MR neuroimaging for detailed evaluation of amalgamation of acute through subacute infarcts as well as sequelae of prior infarcts of the bilateral cerebral architecture. 3. ?? Otherwise, chronic findings as above. THIS IS AN ELECTRONICALLY VERIFIED FINAL REPORT 04/24/2024 5:25 PM - Electronically signed by ??Steven VALENZUELA D: ??04/24/2024 5:25 PM T: Report ID: [id number] Reading Location: ??[id number] Procedure Note Steven Garcia MD - 04/24/2024 EXAM DESCRIPTION: CT HEAD WO CONTRAST REASON FOR STUDY: Follow-up stroke. No provided patient complaints toinclude no provided focal neurologic deficits. No provided history of trauma or inciting and/or aggravating events. History of hypertension and stroke.No provided surgical history. TECHNIQUE: Axial images acquired through the brain without intravenous contrast. Images stored on PACS. Automated exposure control was used asa dose optimization technique for this examination. COMPARISON: CT head without contrast 04/19/2024; MRI brain withoutcontrast 04/20/2024. FINDINGS: BRAIN: No acute intra-axial hemorrhage, noting discontinuous cortical gyriform hyperintensity within areas of infarct consistent with components of cortical laminar necrosis. Redemonstration of amalgamationof acute through subacute infarcts and sequelae of prior infarcts extending variably about the bilateral cerebral architecture consistent with asbetter delineated on recent MR neuroimaging. Otherwise, there is periventricular-subcortical as well as a patchy component of pontine hypoattenuating white matter disease, nonspecific, though likely secondaryto chronic microvascular ischemia. No significant edema and no mass effect, midline shift, or herniation. EXTRA-AXIAL SPACES: No extra-axial fluid collection. No unenhanced CT evidence of extra-axial mass. Constellation of posterior disc osteophyte complexes, annular disc bulges and/or focal herniations, facetarthropathy, and uncovertebral joint disease produces multilevel variable spinal canal stenosis and neural foraminal stenosis. CALVARIUM: No acute calvarial fracture. SINUSES/MASTOIDS: Visualized paranasal sinuses clear. Mastoid air cells well-developed and well aerated. ORBITS: No acute abnormality. Ocular lenses and globes normal in conformation and position. OTHER: No other significant abnormality. IMPRESSION: 1. No acute intracranial hemorrhage with CT evolution of infarcts. 2. Please reference recent MR neuroimaging for detailed evaluation of amalgamation of acute through subacute infarcts as well as sequelae ofprior infarcts of the bilateral cerebral architecture. 3. Otherwise, chronic findings as above. THIS IS AN ELECTRONICALLY VERIFIED FINAL REPORT 04/24/2024 5:25 PM - Electronically signed by Steven Garcia M.D. NICOLAS T: Report ID: [id number] Reading Location: [id number] us Arpan Rodgers MD IMG CT PROCEDURES Fi nal Result * POCT glucose (04/24/2024 11:47 AM CDT) Glucose, POC 128 70 - 199 mg/dL Glucose comment 1 Use This Result NADINE Blood 04/24/2024 11:4 7 AM CDT 04/24/2024 11:47 AM CDT us Pricilla Andino MD LAB POCT ORDERABLES - DEVICE Fin al Result NADINE CANCHOLA [address] [facility] [place] [address] * US Carotids Duplex Bilateral (04/24/2024 9:07 AM CDT) Anatomical Region Laterality Modality Vascular Bilateral Ultrasound 04/24/2024 Narrative 04/24/2024 12:09 PM CDT [employer] Job ID: [id number] [employer] Document ID: [id number] Dictated date/time: [id number] CAROTID DUPLEX. REASON FOR EXAM Slurred speech. COMMENTS ON THE RIGHT Peak systolic velocity of CCA of 64, ICA of 130, end-diastolic velocity 26. ??Irregular heterogenous plaque in proximal ICA. ??ECA velocity of 444. ?? Antegrade flow noted. ??Vertebral artery velocity of 55. COMMENTS ON THE LEFT Peak systolic velocity of CCA of 76, ICA of 128, end-diastolic velocity 33. ??Irregular heterogenous plaque seen proximal ICA. ??ECA velocity of 204. ??Bidirectional flow noted in the left vertebral artery. ??Peak systolic velocity of left subclavian artery is visualized at 326 cm/sec. OVERALL IMPRESSION 50 to 69% stenosis bilateral internal carotid arteries. ??Antegrade flow noted on the right vertebral artery with bidirectional flow on the left that suggests left subclavian arterial stenosis. Job ID/Internal Job ID: ??[id number] us Radha Land CONCRETE TECHNICIAN IMG US PROCEDURES Final Result * POCT glucose (04/24/2024 7:29 AM CDT) Glucose, POC 123 70 - 199 mg/dL Glucose comment 1 Use This Result NADINE Blood 04/24/2024 7:29 AM CDT 04/24/2024 7:29 AM CDT us Pricilla Andino MD LAB POCT ORDERABLES - DEVICE Fin al Result Performing Organization Address [facility] de Phone Number NADINE [address] [place] [address] * eGFR (04/24/2024 7:01 AM CDT) eGFR >90 >=60 mL/min/1. 73 m2 Comment: Interpretive Data Reference Interval Normal ?>/= 90 mL/min/1.73m2 Mildly decreased* ? 60 - 89 mL/min/1.73m2 Mildly to moderately decreased ?45 - 59 mL/min/1.73m2 Moderately to severely decreased ??30 - 44 mL/min/1.73m2 Severely decreased ?15 - 29 mL/min/1.73m2 Kidney Failure ?< 15 ??mL/min/1.73m2 *Relative to young adult level Estimated glomerular filtration rate is determined by the 2020 CKD-EPI equation recommended by the National Kidney Foundation (A Unifying Approach to GFR Estimation: Recommendations of the NKF-ASK Task Force on Reassessing the Inclusion of Race in Diagnosing Kidney Disease, JASN 2020). The CKD-EPI equation should not be used for patients with unstable renal function and has not been validated in children and those over 70. Current interpretive data was last reviewed 2021. Blood 04/24/2024 7:01 AM CDT 04/24/2024 7:29 AM CDT Pricilla Andino MD LAB BLOOD ORDERABLES Final Resul t Performing Organization Address [facility] Co de Phone Number NADINE [address] [place] [address] * (ABNORMAL) Differential, auto (04/24/2024 7:01 AM CDT) Pathologist [facility] Neutrophil abs 5.2 1.5 - 6.5 K/cumm Imm gran abs 0.0 0.0 - 0.1 K/cumm [facility] Lymphocyte abs 1.8 0.8 - 3.3 K/cumm [facility] Monocyte abs 0.6 0.2 - 0.8 K/cumm [facility] Eosinophil abs 0.8(H) 0.0 - 0.5 K/cumm [facility] Basophil abs 0.1 0.0 - 0.1 K/cumm [facility] Neutrophil pct 61.1 % [facility] Comment: Interpretive Data Percent cell count reference ranges are not reported, since discordance with absolute values may lead to misinterpretation of CBC data. Current Interpretive Data was last revised on 2017. Imm gran pct 0.2 % [facility] Comment: Interpretive Data Percent cell count reference ranges are not reported, since discordance with absolute values may lead to misinterpretation of CBC data. Current Interpretive Data was last revised on 2017. Lymphocyte pct 20.8 % [facility] Comment: Interpretive Data Percent cell count reference ranges are not reported, since discordance with absolute values may lead to misinterpretation of CBC data. Current Interpretive Data was last revised on 2017. Monocyte pct 6.8 % [facility] Comment: Interpretive Data Percent cell count reference ranges are not reported, since discordance with absolute values may lead to misinterpretation of CBC data. Current Interpretive Data was last revised on 2017. Eosinophil pct 9.9 % [facility] Comment: Interpretive Data Percent cell count reference ranges are not reported, since discordance with absolute values may lead to misinterpretation of CBC data. Current Interpretive Data was last revised on 2017. Basophil pct 1.2 % [facility] Comment: Interpretive Data Percent cell count reference ranges are not reported, since discordance with absolute values may lead to misinterpretation of CBC data. Current Interpretive Data was last revised on 2017. Blood 04/24/2024 7:01 AM CDT 04/24/2024 7:29 AM CDT Pricilla Andino MD LAB BLOOD ORDERABLES Final Resul t Performing Organization Address [facility] de Phone Number [address] [address] * (ABNORMAL) CBC with auto differential (04/24/2024 7:01 AM CDT) WBC 8.4 3.8 - 9.9 K/cumm Hgb 9.0(L) 11.9 - 15.5 g/dL [facility] Hct 28.3(L) 35.6 - 45.5 % [facility] Plt 268 150 - 400 K/cumm [facility] MPV 10.3 9.1 - 12.3 fL [facility] RBC 3.33(L) 3.90 - 5.20 M/cumm [facility] MCV 85.0 81.3 - 96.4 fL [facility] MCH 27.0(L) 27.1 - 33.3 pg [facility] MCHC 31.8(L) 32.3 - 35.7 g/dL [facility] RDW CV 14.7 11.1 - 14.9 % [facility] RDW SD 45.1 35.7 - 48.1 fL [facility] NRBC abs 0.00 0.00 - 0.01 K/cumm [facility] Blood 04/24/2024 7:01 AM CDT 04/24/2024 7:29 AM CDT Pricilla Andino MD LAB BLOOD ORDERABLES Final Resul t Performing Organization Address [facility] de Phone Number [address] [address] * Magnesium (04/24/2024 7:01 AM CDT) Pathologist [facility] Magnesium 2.3 1.4 - 2.5 mg/dL Blood 04/24/2024 7:01 AM CDT 04/24/2024 7:29 AM CDT Jammie Dickson NP LAB BLOOD ORDERABLES Fi nal Result Performing Organization Address [facility]/State/ZIP Co de Phone Number [facility] [place] [address] * Renal function panel (04/24/2024 7:01 AM CDT) [facility] Sodium 143 135 - 145 mmol/L Potassium, pl 4.1 3.3 - 4.9 mmol/L [facility] Chloride 109 97 - 110 mmol/L [facility] CO2 23 22 - 32 mmol/L [facility] Anion gap 11 2 - 15 mmol/L [facility] BUN 17 6 - 25 mg/dL [facility] Creatinine 0.72 0.60 - 1.10 mg/dL [facility] Glucose 106 70 - 199 mg/dL [facility] Comment: Interpretive Data Fasting glucose >/= 126 mg/dl is diagnostic for diabetes. ?? Fasting is defined as no caloric intake for at least 8 hours. Fasting glucose between 100 mg/dl to 125 mg/dl is diagnostic of prediabetes. In a patient with classic symptoms of hyperglycemia or hyperglycemic crisis, a random glucose >/= 200 mg/dl is diagnostic for diabetes. In the absence of unequivocal hyperglycemia, results should be confirmed by repeat testing. The classification and Diagnosis of Diabetes Diabetes Care 2021; 46: S19-S40. Current interpretive data was last revised 2022. Calcium 9.3 8.5 - 10.3 mg/dL [facility] Phosphorus, pl 2.9 2.3 - 4.5 mg/dL [facility] Albumin 3.7 3.5 - 5.0 g/dL [facility] Blood 04/24/2024 7:01 AM CDT 04/24/2024 7:29 AM CDT Pricilla Andino MD LAB BLOOD ORDERABLES Final Resul t [facility] [address] [place] [address] * ECG 12 lead (04/24/2024 12:14 AM CDT) [facility] Ventricular Rate EKG/Min 80 BPM [facility] Atrial Rate 80 BPM [facility] [place]-Interval (MSEC) 142 ms [facility] QRS-Interval (MSEC) 76 ms [facility] QT-Interval (MSEC) 366 ms [facility] QTc 422 ms [facility] P Heaters 52 degrees [facility] R Heaters 14 degrees [facility] T Heaters 86 degrees [facility] Diagnosis Normal sinus rhythm Nonspecific T wave abnormality No previous ECGs available Confirmed by SULTAN REAL M.D. ([id number]) on 04/24/2024 8:40:31 PM [facility] 04/24/2024 12:1 4 AM CDT 04/24/2024 8:40 PM CDT Jammie Dickson CONCRETE TECHNICIAN ECG ORDERABLES Final R esult Performing Organization Address [facility] de Phone Number [facility] * POCT glucose (04/23/2024 8:31 PM CDT) Glucose, POC 132 70 - 199 mg/dL Blood 04/23/2024 8:31 PM CDT 04/23/2024 8:31 PM CDT Pricilla Andino MD LAB POCT ORDERABLES - DEVICE Fin al Result Performing Organization Address [facility] de Phone Number [address] [place] [address] * POCT glucose (04/23/2024 4:55 PM CDT) Glucose, POC 113 70 - 199 mg/dL Glucose comment 1 Use This Result NADINE Blood 04/23/2024 4:55 PM CDT 04/23/2024 4:55 PM CDT Pricilla Andino MD LAB POCT ORDERABLES - DEVICE Fin al Result Performing Organization Address [facility] Co de Phone Number [address] [place] [address] * POCT glucose (04/23/2024 11:54 AM CDT) Glucose, POC 160 70 - 199 mg/dL Glucose comment 1 Use This Result NADINE CANCHOLA Blood 04/23/2024 11:5 4 AM CDT 04/23/2024 11:54 AM CDT Pricilla Andino MD LAB POCT ORDERABLES - DEVICE Fin al Result Performing Organization Address City/State/[facility] Co de Phone Number NADINE CANCHOLA [address] [facility] [place] [address] * eGFR (04/23/2024 10:24 AM CDT) Pathologist [facility] eGFR 85 >=60 mL/min/1. 73 m2 Comment: Interpretive Data Reference Interval Normal ?>/= 90 mL/min/1.73m2 Mildly decreased* ? 60 - 89 mL/min/1.73m2 Mildly to moderately decreased ?45 - 59 mL/min/1.73m2 Moderately to severely decreased ??30 - 44 mL/min/1.73m2 Severely decreased ?15 - 29 mL/min/1.73m2 Kidney Failure ?< 15 ??mL/min/1.73m2 *Relative to young adult level Estimated glomerular filtration rate is determined by the 2020 CKD-EPI equation recommended by the National Kidney Foundation (A Unifying Approach to GFR Estimation: Recommendations of the NKF-ASK Task Force on Reassessing the Inclusion of Race in Diagnosing Kidney Disease, JASN 2020). The CKD-EPI equation should not be used for patients with unstable renal function and has not been validated in children and those over 70. Current interpretive data was last reviewed 2021. Blood 04/23/2024 10:2 4 AM CDT 04/23/2024 10:55 AM CDT Pricilla Andino MD LAB BLOOD ORDERABLES Final Resul t NADINE [address] [facility] [place] [address] * (ABNORMAL) Differential, auto (04/23/2024 10:24 AM CDT) Neutrophil abs 5.4 1.5 - 6.5 K/cumm Imm gran abs 0.0 0.0 - 0.1 K/cumm [facility] Lymphocyte abs 1.5 0.8 - 3.3 K/cumm [facility] Monocyte abs 0.5 0.2 - 0.8 K/cumm [facility] Eosinophil abs 0.6(H) 0.0 - 0.5 K/cumm [facility] Basophil abs 0.1 0.0 - 0.1 K/cumm [facility] Neutrophil pct 66.7 % [facility] Comment: Interpretive Data Percent cell count reference ranges are not reported, since discordance with absolute values may lead to misinterpretation of CBC data. Current Interpretive Data was last revised on 2017. Imm gran pct 0.1 % [facility] Comment: Interpretive Data Percent cell count reference ranges are not reported, since discordance with absolute values may lead to misinterpretation of CBC data. Current Interpretive Data was last revised on 2017. Lymphocyte pct 18.3 % [facility] Comment: Interpretive Data Percent cell count reference ranges are not reported, since discordance with absolute values may lead to misinterpretation of CBC data. Current Interpretive Data was last revised on 2017. Monocyte pct 6.1 % [facility] Comment: Interpretive Data Percent cell count reference ranges are not reported, since discordance with absolute values may lead to misinterpretation of CBC data. Current Interpretive Data was last revised on 2017. Eosinophil pct 7.7 % [facility] Comment: Interpretive Data Percent cell count reference ranges are not reported, since discordance with absolute values may lead to misinterpretation of CBC data. Current Interpretive Data was last revised on 2017. Basophil pct 1.1 % [facility] Comment: Interpretive Data Percent cell count reference ranges are not reported, since discordance with absolute values may lead to misinterpretation of CBC data. Current Interpretive Data was last revised on 2017. Blood 04/23/2024 10:2 4 AM CDT 04/23/2024 10:55 AM CDT Pricilla Andino MD LAB BLOOD ORDERABLES Final Resul t Performing Organization Address [facility] Co de Phone Number NADINE [address] [place] [address] * (ABNORMAL) CBC with auto differential (04/23/2024 10:24 AM CDT) WBC 8.2 3.8 - 9.9 K/cumm Hgb 9.9(L) 11.9 - 15.5 g/dL [facility] Hct 30.7(L) 35.6 - 45.5 % [facility] Plt 290 150 - 400 K/cumm [facility] MPV 10.4 9.1 - 12.3 fL [facility] RBC 3.59(L) 3.90 - 5.20 M/cumm [facility] MCV 85.5 81.3 - 96.4 fL [facility] MCH 27.6 27.1 - 33.3 pg [facility] MCHC 32.2(L) 32.3 - 35.7 g/dL [facility] RDW CV 14.6 11.1 - 14.9 % [facility] RDW SD 45.0 35.7 - 48.1 fL [facility] NRBC abs 0.00 0.00 - 0.01 K/cumm [facility] Blood 04/23/2024 10:2 4 AM CDT 04/23/2024 10:55 AM CDT Pricilla Andino MD LAB BLOOD ORDERABLES Final Resul t Performing Organization Address City/[facility]/ZIP Co de Phone Number [address] [place], [place] [id number] * Renal function panel (04/23/2024 10:24 AM CDT) Sodium 139 135 - 145 mmol/L Potassium, pl 3.4 3.3 - 4.9 mmol/L [facility] Chloride 104 97 - 110 mmol/L [facility] CO2 23 22 - 32 mmol/L [facility] Anion gap 12 2 - 15 mmol/L [facility] BUN 17 6 - 25 mg/dL [facility] Creatinine 0.78 0.60 - 1.10 mg/dL [facility] Glucose 174 70 - 199 mg/dL [facility] Comment: Interpretive Data Fasting glucose >/= 126 mg/dl is diagnostic for diabetes. ?? Fasting is defined as no caloric intake for at least 8 hours. Fasting glucose between 100 mg/dl to 125 mg/dl is diagnostic of prediabetes. In a patient with classic symptoms of hyperglycemia or hyperglycemic crisis, a random glucose >/= 200 mg/dl is diagnostic for diabetes. In the absence of unequivocal hyperglycemia, results should be confirmed by repeat testing. The classification and Diagnosis of Diabetes Diabetes Care 202; 46: S19-S40. Current interpretive data was last revised 2022. Calcium 10.0 8.5 - 10.3 mg/dL [facility] Phosphorus, pl 3.6 2.3 - 4.5 mg/dL [facility] Albumin 3.9 3.5 - 5.0 g/dL [facility] Blood 04/23/2024 10:2 4 AM CDT 04/23/2024 10:55 AM CDT Pricilla Andino MD LAB BLOOD ORDERABLES Final Resul t Performing Organization Address City/[facility] Co de Phone Number [address] [place] [address] * POCT glucose (04/23/2024 8:02 AM CDT) [facility] Glucose, POC 136 70 - 199 mg/dL Blood 04/23/2024 8:02 AM CDT 04/23/2024 8:02 AM CDT Pricilla Andino MD LAB POCT ORDERABLES - DEVICE Fin al Result Performing Organization Address City/[facility] Co de Phone Number [address] [place] [address] * POCT glucose (04/22/2024 7:53 PM CDT) Glucose, POC 134 70 - 199 mg/dL Glucose comment 1 Use This Result NADINE CANCHOLA Blood 04/22/2024 7:53 PM CDT 04/22/2024 7:53 PM CDT Pricilla Andino MD LAB POCT ORDERABLES - DEVICE Fin al Result NAIDNE CANCHOLA [address] [facility] [place] [address] * CTA Chest Abdomen Pelvis (04/22/2024 5:25 PM CDT) Anatomical Region Laterality Modality Body N/A Computed Tomogra phy 04/22/2024 7:30 PM CDT Narrative 04/22/2024 7:42 PM CDT EXAM DESCRIPTION: CTA CHEST ABDOMEN PELVIS REASON FOR STUDY: Aortic atherosclerosis, concern for embolic events ?? Aortic atherosclerosis concern for embolic events. ??severe aortic atherosclerosis with mobile atheroma ? Hx: ??HTN, Stroke ?? TECHNIQUE: CTA scan of the chest, abdomen, and pelvis performed ??without and with ??intravenous and ??without ??oral contrast using helical scanning technique with dynamic intravenous contrast injection. Precontrast images of the chest were acquired. Arterial phase images of the chest, abdomen, and pelvis as well as portal venous phase images of the abdomen were also acquired. Reconstructed coronal and sagittal MPR images reviewed. All images stored on PACS. ??3D MIP images rendered on scanning unit and reviewed at time of interpretation. ?? Automated exposure control was used as a dose optimization technique for this examination. CONTRAST TYPE/DOSE: 100mL of IOVERSOL 350 MG IODINE/ML INTRAVENOUS SYRINGE ?? injected via ??intravenous COMPARISON: 04/20/2024 chest radiograph FINDINGS: VASCULATURE Ascending thoracic aorta is patent without marked irregularity stenosis or aneurysmal segment. Transverse thoracic aorta demonstrates atherosclerotic changes extending to the great vessels producing moderate irregularity and moderate to severe stenosis notable at the origin of the left common carotid artery. ??Lesser changes left subclavian and brachiocephalic arteries. ??Left vertebral artery is not visualized proximally though as partially visualized on highest available sections, this may be reconstituted from proximal occlusion. ??Please correlate clinically. Descending thoracic aorta demonstrates moderate atherosclerotic irregularity without high-grade stenosis or aneurysmal segment. ??No deep ulceration. CELIAC TRUNK: ??No flow limiting stenosis, dissection, or aneurysm. SUPERIOR MESENTERIC ARTERY: ??Severe stenosis due to calcified and noncalcified plaque at the origin. RIGHT RENAL ARTERY: ??Severe stenosis with calcified and noncalcified plaque. LEFT RENAL ARTERY: ??Duplicated without high-grade stenosis. INFERIOR MESENTERIC ARTERY: ??No flow limiting stenosis, dissection, or aneurysm. AORTA: ??Abdominal aorta demonstrates diffuse atherosclerotic calcified and noncalcified plaque with moderate irregularity. ??No deep ulceration or surrounding induration. ??Mild fusiform aneurysmal dilatation infrarenal segment measures up to 3.0 cm. ILIAC ARTERIES: ?? Distal abdominal aorta demonstrates heavily calcified plaque extending to the internal iliac bilaterally producing 50-75% stenosis at the origin on the right and continuing with moderate stenosis through the common iliac artery. ?? The internal and external iliac arteries are patent with segments of moderate to severe stenosis. Left common iliac artery demonstrates calcified plaque with regions of 50-75% stenosis extending to the external iliac. ??Left internal iliac is patent with a severe proximal stenosis. CHEST LUNGS: ??Central airways are patent. ??No consolidations. ??Interstitial densities suggesting scarring or atelectasis at the bases. PLEURA: ??No effusion. No pneumothorax. MEDIASTINUM/JORDAN: ??Nonenlarged lymph nodes retrocaval pretracheal space, subcarinal space and hilar regions likely postinflammatory. HEART: ??Heart size is normal with no pericardial effusion. AXILLA: ??No adenopathy. CHEST WALL: ??Bilateral breast prosthesis without surrounding fluid collection or induration. HARDWARE/LINES/TUBES: ??None. MUSCULOSKELETAL CHEST: ??No significant abnormality. ABDOMEN/PELVIS LIVER: ??Normal size. ??No identified cystic or solid masses. No cysts. GALLBLADDER: ??Normally distended BILE DUCTS: ??No intrahepatic or extrahepatic ductal dilatation. SPLEEN: ??Normal size. ??Hypodensity and atrophic changes midportion may be related to scarring possibly related to prior embolic phenomena described clinically. PANCREAS: ??No identified cystic or solid masses. No significant calcifications. No adjacent inflammation or peripancreatic fluid collections. Pancreatic duct not dilated. ?? ADRENALS: ??Normal. KIDNEYS/URINARY TRACT: ??No stone or hydronephrosis. ??Midpole probable cysts on the right with no follow-up required per guidelines. ?Urinary bladder is unremarkable. GI: ??No dilated bowel loops. No obvious wall thickening. Normal appendix. No significant diverticular disease. PERITONEUM: ??No ascites or free air. RETROPERITONEUM: ??No mass or adenopathy. REPRODUCTIVE: ??No significant abnormality. VASCULATURE ABDOMEN: ??As above. MUSCULOSKELETAL ABDOMEN PELVIS: ??No acute finding. OTHER: ??No significant abnormality. IMPRESSION: No acute aortic abnormality of the chest, abdomen or pelvis. Mild fusiform aneurysmal dilatation infrarenal abdominal aorta measuring up to 3.0 cm. 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 Severe stenosis origin left common carotid artery. Proximal left vertebral artery is not visualized though as partially visualized on highest available sections, this may be related to proximal occlusion. Diffuse atherosclerotic irregularities through the thoracic and abdominal aorta and iliac vessels with regions of moderate to severe stenosis as discussed above. THIS IS AN ELECTRONICALLY VERIFIED FINAL REPORT 04/22/2024 7:42 PM - Electronically signed by ??Channing PINTO D: ??04/22/2024 7:42 PM T: Report ID: [id number] Reading Location: ??[id number] Procedure Note Channing Lopez MD - 04/22/2024 EXAM DESCRIPTION: CTA CHEST ABDOMEN PELVIS REASON FOR STUDY: Aortic atherosclerosis, concern for embolic events Aortic atherosclerosis concern for embolic events. severe aortic atherosclerosis with mobile atheroma Hx: HTN, Stroke TECHNIQUE: CTA scan of the chest, abdomen, and pelvis performed withoutand with intravenous and without oral contrast using helical scanningtechnique with dynamic intravenous contrast injection. Precontrast images of thechest were acquired. Arterial phase images of the chest, abdomen, and pelvis aswell as portal venous phase images of the abdomen were also acquired.Reconstructed coronal and sagittal MPR images reviewed. All images stored on PACS. 3DMIP images rendered on scanning unit and reviewed at time of interpretation. Automated exposure control was used as a dose optimization technique forthis examination. CONTRAST TYPE/DOSE: 100mL of IOVERSOL 350 MG IODINE/ML INTRAVENOUS SYRINGE injected via intravenous COMPARISON: 04/20/2024 chest radiograph FINDINGS: VASCULATURE Ascending thoracic aorta is patent without marked irregularity stenosis or aneurysmal segment. Transverse thoracic aorta demonstrates atherosclerotic changes extendingto the great vessels producing moderate irregularity and moderate to severe stenosis notable at the origin of the left common carotid artery. Lesser changes left subclavian and brachiocephalic arteries. Left vertebralartery is not visualized proximally though as partially visualized on highest available sections, this may be reconstituted from proximal occlusion.Please correlate clinically. Descending thoracic aorta demonstrates moderate atheroscleroticirregularity without high-grade stenosis or aneurysmal segment. No deep ulceration. CELIAC TRUNK: No flow limiting stenosis, dissection, or aneurysm. SUPERIOR MESENTERIC ARTERY: Severe stenosis due to calcified andnoncalcified plaque at the origin. RIGHT RENAL ARTERY: Severe stenosis with calcified and noncalcifiedplaque. LEFT RENAL ARTERY: Duplicated without high-grade stenosis. INFERIOR MESENTERIC ARTERY: No flow limiting stenosis, dissection, or aneurysm. AORTA: Abdominal aorta demonstrates diffuse atherosclerotic calcified and noncalcified plaque with moderate irregularity. No deep ulceration or surrounding induration. Mild fusiform aneurysmal dilatation infrarenal segment measures up to 3.0 cm. ILIAC ARTERIES: Distal abdominal aorta demonstrates heavily calcified plaque extending tothe internal iliac bilaterally producing 50-75% stenosis at the origin on the right and continuing with moderate stenosis through the common iliacartery. The internal and external iliac arteries are patent with segments ofmoderate to severe stenosis. Left common iliac artery demonstrates calcified plaque with regions of50-75% stenosis extending to the external iliac. Left internal iliac is patentwith a severe proximal stenosis. CHEST LUNGS: Central airways are patent. No consolidations. Interstitial densities suggesting scarring or atelectasis at the bases. PLEURA: No effusion. No pneumothorax. MEDIASTINUM/JORDAN: Nonenlarged lymph nodes retrocaval pretracheal space, subcarinal space and hilar regions likely postinflammatory. HEART: Heart size is normal with no pericardial effusion. AXILLA: No adenopathy. CHEST WALL: Bilateral breast prosthesis without surrounding fluidcollection or induration. HARDWARE/LINES/TUBES: None. MUSCULOSKELETAL CHEST: No significant abnormality. ABDOMEN/PELVIS LIVER: Normal size. No identified cystic or solid masses. No cysts. GALLBLADDER: Normally distended BILE DUCTS: No intrahepatic or extrahepatic ductal dilatation. SPLEEN: Normal size. Hypodensity and atrophic changes midportion may be related to scarring possibly related to prior embolic phenomena described clinically. PANCREAS: No identified cystic or solid masses. No significant calcifications. No adjacent inflammation or peripancreatic fluidcollections. Pancreatic duct not dilated. ADRENALS: Normal. KIDNEYS/URINARY TRACT: No stone or hydronephrosis. Midpole probablecysts on the right with no follow-up required per guidelines. Urinary bladder is unremarkable. GI: No dilated bowel loops. No obvious wall thickening. Normal appendix.No significant diverticular disease. PERITONEUM: No ascites or free air. RETROPERITONEUM: No mass or adenopathy. REPRODUCTIVE: No significant abnormality. VASCULATURE ABDOMEN: As above. MUSCULOSKELETAL ABDOMEN PELVIS: No acute finding. OTHER: No significant abnormality. IMPRESSION: No acute aortic abnormality of the chest, abdomen or pelvis. Mild fusiform aneurysmal dilatation infrarenal abdominal aorta measuringup to 3.0 cm. Severe stenosis origin superior mesenteric artery and right renalartery. Severe stenosis origin left common carotid artery. Proximal left vertebral artery is not visualized though as partially visualized on highest available sections, this may be related to proximal occlusion. Diffuse atherosclerotic irregularities through the thoracic and abdominal aorta and iliac vessels with regions of moderate to severe stenosis as discussed above. THIS IS AN ELECTRONICALLY VERIFIED FINAL REPORT 04/22/2024 7:42 PM - Electronically signed by Channing Lopez M.D. T: Report ID: [id number] Reading Location: [place] [address] us Pricilla Andino MD IMG CT PROCEDURES Final Result * POCT glucose (04/22/2024 4:03 PM CDT) Glucose, POC 167 70 - 199 mg/dL Glucose comment 1 Use This Result [facility] Blood 04/22/2024 4:03 PM CDT 04/22/2024 4:03 PM CDT us Pricilla Andino MD LAB POCT ORDERABLES - DEVICE Fin al Result [facility] [address] [facility] [place] [address] * POCT glucose (04/22/2024 12:02 PM CDT) Glucose, POC 123 70 - 199 mg/dL Glucose comment 1 Use This Result [facility] Blood 04/22/2024 12:0 2 PM CDT 04/22/2024 12:02 PM CDT Pricilla Andino MD LAB POCT ORDERABLES - DEVICE Fin al Result [facility] [address] [facility] [place], [place] [id number] * TRANSESOPHAGEAL ECHO (SHIVAM) W DOPPLER/CF WO CONTRAST (04/22/2024 10:00 AM CDT) Anatomical Region Laterality Modality Ultrasound 04/22/2024 10:0 0 AM CDT Narrative 04/22/2024 10:57 AM CDT ? Version 2 ?Transesophageal Echocardiogram + ----- + :Name: LYNN RUTH JStudy Date: 04/22/2024 ?Status: MHB ?: : ?Patient Location: [facility] 2 SOUTH^[id number]^Height: 64 in ?: : ?Weight: 127 lbBP: 135/84 mmHg: :: 1960 ? Gender: Female ?BSA: 1.6 m2 ?: :Reason For Study: Stroke, follow up ?: :Ordering Physician: JAN, ? : :SWAN ? : :Referring Physician: ? : :UNKNOWN, NOTINFILE ? : :Performed By: Michelle ? : :NANY Schreiber ?: + ----- + Procedure Shivam probe # is '7 '. A transesophageal echocardiogram was performed. Left Ventricle Left ventricular systolic function is normal. The left ventricle is grossly normal size. Right Ventricle The right ventricular systolic function is normal. The right ventricle is grossly normal size. Atria LA appears dilated. The THIEN is free of thrombus in multiple views with normal Doppler emptying velocities. The pulmonary vein has normal Doppler emtying profile. Right atrial size is normal. Appears intact visually and by Doppler. Bubble study negative for shunt. Mitral Valve Slight restriction of mitral valve anterior leaflet with mild anterior mitral valve prolapse with associated mild-moderate MR and borderline mild mitral stenosis with mean gradient of 6 mmHg with HR of 89. Tricuspid Valve There is mild tricuspid regurgitation. The tricuspid valve is not well visualized, but is grossly normal. Aortic Valve No significant aortic regurgitation noted. Aortic valve structure is normal. 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 Pulmonic Valve Trace to mild pulmonic valvular regurgitation. The pulmonic valve is not well seen, but is grossly normal. Great Vessels No obvious dissection could be visualized. The aortic root is normal size. Grossly normal. IVC not well seen. Pericardium There is no pericardial effusion. Diastology Unable to assess. Interpretation Summary Bite block inserted. Anesthesia support for MAC sedation with propofol. Dr. Nino Olivia personally inserted the probe without significant difficulty. Usual views were obtained. Probe with no blood products on removal. 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 THIEN with normal Doppler emptying velocities and no visible thrombus in multiple views. Aortic valve is trileaflet without stenosis or regurgitation. There is mild TR, trace IL, slight restriction of mitral valve anterior leaflet with mild anterior mitral valve prolapse with associated mild-moderate MR and borderline mild mitral stenosis with mean gradient of 6 mmHg. The pulmonary vein Doppler profile is normal. The interatrial septum appears intact visually and by Doppler. A bubble study was performed which was negative for interatrial shunting. The aortic root and ascending aorta appeared grossly normal. There was very severe aortic atherosclerosis in the descending aorta and the arch without highly mobile atheroma. It appears there is possible minimally mobile components--this finding was very significant and could be a likely cause of embolic events. Consider further imaging assessment to evaluated for peripheral embolic phenomenon (splenic or renal infarcts, etc.) with dedicated CTA chest, abdomen, pelvis. + + :Measurements with Normals ?: + + Doppler Measurements & Calculations MV V2 max: 182.0 cm/sec MV max P.2 mmHg MV V2 mean: 121.0 cm/sec MV mean P.0 mmHg MV V2 VTI: 32.9 cm Electronically signed by: Nino Olivia 04/22/2024 10:57 AM Procedure Note Nino Olivia MD - 04/22/2024 Version 2 Transesophageal Echocardiogram + ----- + :Name: MELANIA RUTHA JStudy Date: 04/22/2024Status: MHB : : Patient Location: [address]^[id number]^Height: 64 in : : : 127 lbBP: 135/84 mmHg: :: 1960 Gender: FemaleBSA: 1.6 m2 : :Reason For Study: Stroke, follow up: :Ordering Physician: JAN,: :PRICILLA: :Referring Physician:: :UNKNOWN, NOTINFILE: :Performed By: Michelle: :MEMO Schreiber: + ----- + Procedure Shivam probe # is '7 '. A transesophageal echocardiogram was performed. Left Ventricle Left ventricular systolic function is normal. The left ventricle isgrossly normal size. Right Ventricle The right ventricular systolic function is normal. The right ventricleis grossly normal size. Atria LA appears dilated. The THIEN is free of thrombus in multiple views withnormal Doppler emptying velocities. The pulmonary vein has normal Doppleremtying profile. Right atrial size is normal. Appears intact visually and byDoppler. Bubble study negative for shunt. Mitral Valve Slight restriction of mitral valve anterior leaflet with mild anteriormitral valve prolapse with associated mild-moderate MR and borderline mildmitral stenosis with mean gradient of 6 mmHg with HR of 89. Tricuspid Valve There is mild tricuspid regurgitation. The tricuspid valve is not well visualized, but is grossly normal. Aortic Valve No significant aortic regurgitation noted. Aortic valve structure isnormal. Very subtle mobile entities on the aortic valve cusps consistent withLambl's excrescence. Pulmonic Valve Trace to mild pulmonic valvular regurgitation. The pulmonic valve is notwell seen, but is grossly normal. Great Vessels No obvious dissection could be visualized. The aortic root is normalsize. Grossly normal. IVC not well seen. Pericardium There is no pericardial effusion. Diastology Unable to assess. Interpretation Summary Bite block inserted. Anesthesia support for MAC sedation with propofol.Dr. Nino Olivia personally inserted the probe without significantdifficulty. Usual views were obtained. Probe with no blood products on removal. Very subtle mobile entities on the aortic valve cusps consistent withLambl's excrescence. THIEN with normal Doppler emptying velocities and no visible thrombus in multiple views. Aortic valve is trileaflet without stenosisor regurgitation. There is mild TR, trace IL, slight restriction of mitralvalve anterior leaflet with mild anterior mitral valve prolapse withassociated mild-moderate MR and borderline mild mitral stenosis with mean gradient of6 mmHg. The pulmonary vein Doppler profile is normal. The interatrialseptum appears intact visually and by Doppler. A bubble study was performed whichwas negative for interatrial shunting. The aortic root and ascending aorta appeared grossly normal. There was very severe aortic atherosclerosis inthe descending aorta and the arch without highly mobile atheroma. It appearsthere is possible minimally mobile components--this finding was very significantand could be a likely cause of embolic events. Consider further imaging assessment to evaluated for peripheral embolic phenomenon (splenic or renal infarcts, etc.) with dedicated CTA chest, abdomen, pelvis. + + :Measurements with Normals: + + Doppler Measurements & Calculations MV V2 max: 182.0 cm/sec MV max P.2 mmHg MV V2 mean: 121.0 cm/sec MV mean P.0 mmHg MV V2 VTI: 32.9 cm Electronically signed by: Nino Olivia 04/22/2024 10:57 AM Pricilla Andino MD CV ECHO PROCEDURES Edited * POCT glucose (04/22/2024 7:17 AM CDT) Glucose, POC 132 70 - 199 mg/dL Glucose comment 1 Use This Result [facility] Blood 04/22/2024 7:17 AM CDT 04/22/2024 7:17 AM CDT Pricilla Andino MD LAB POCT ORDERABLES - DEVICE Fin al Result [facility] [address] [facility] [place] [address] * eGFR (04/22/2024 7:16 AM CDT) eGFR 82 >=60 mL/min/1. 73 m2 Comment: Interpretive Data Reference Interval Normal ?>/= 90 mL/min/1.73m2 Mildly decreased* ? 60 - 89 mL/min/1.73m2 Mildly to moderately decreased ?45 - 59 mL/min/1.73m2 Moderately to severely decreased ??30 - 44 mL/min/1.73m2 Severely decreased ?15 - 29 mL/min/1.73m2 Kidney Failure ?< 15 ??mL/min/1.73m2 *Relative to young adult level Estimated glomerular filtration rate is determined by the 2020 CKD-EPI equation recommended by the National Kidney Foundation (A Unifying Approach to GFR Estimation: Recommendations of the NKF-ASK Task Force on Reassessing the Inclusion of Race in Diagnosing Kidney Disease, JASN 2020). The CKD-EPI equation should not be used for patients with unstable renal function and has not been validated in children and those over 70. Current interpretive data was last reviewed 2021. Blood 04/22/2024 7:16 AM CDT 04/22/2024 8:12 AM CDT Pricilal Andino MD LAB BLOOD ORDERABLES Final Resul t [facility] [address] [facility] [place] [address] * (ABNORMAL) Differential, auto (04/22/2024 7:16 AM CDT) Neutrophil abs 2.5 1.5 - 6.5 K/cumm Imm gran abs 0.0 0.0 - 0.1 K/cumm [facility] Lymphocyte abs 1.8 0.8 - 3.3 K/cumm [facility] Monocyte abs 0.6 0.2 - 0.8 K/cumm [facility] Eosinophil abs 0.8(H) 0.0 - 0.5 K/cumm [facility] Basophil abs 0.1 0.0 - 0.1 K/cumm [facility] Neutrophil pct 42.8 % [facility] Comment: Interpretive Data Percent cell count reference ranges are not reported, since discordance with absolute values may lead to misinterpretation of CBC data. Current Interpretive Data was last revised on 2017. Imm gran pct 0.2 % [facility] Comment: Interpretive Data Percent cell count reference ranges are not reported, since discordance with absolute values may lead to misinterpretation of CBC data. Current Interpretive Data was last revised on 2017. Lymphocyte pct 31.5 % [facility] Comment: Interpretive Data Percent cell count reference ranges are not reported, since discordance with absolute values may lead to misinterpretation of CBC data. Current Interpretive Data was last revised on 2017. Monocyte pct 10.2 % [facility] Comment: Interpretive Data Percent cell count reference ranges are not reported, since discordance with absolute values may lead to misinterpretation of CBC data. Current Interpretive Data was last revised on 2017. Eosinophil pct 13.9 % [facility] Comment: Interpretive Data Percent cell count reference ranges are not reported, since discordance with absolute values may lead to misinterpretation of CBC data. Current Interpretive Data was last revised on 2017. Basophil pct 1.4 % [facility] Comment: Interpretive Data Percent cell count reference ranges are not reported, since discordance with absolute values may lead to misinterpretation of CBC data. Current Interpretive Data was last revised on 2017. Blood 04/22/2024 7:16 AM CDT 04/22/2024 8:12 AM CDT Pricilla Andino MD LAB BLOOD ORDERABLES Final Resul t Performing Organization Address [facility] Co de Phone Number [address] [place], [place] [id number] * (ABNORMAL) CBC with auto differential (04/22/2024 7:16 AM CDT) WBC 5.8 3.8 - 9.9 K/cumm Hgb 8.8(L) 11.9 - 15.5 g/dL [facility] Hct 27.9(L) 35.6 - 45.5 % [facility] Plt 262 150 - 400 K/cumm [facility] MPV 10.6 9.1 - 12.3 fL [facility] RBC 3.21(L) 3.90 - 5.20 M/cumm [facility] MCV 86.9 81.3 - 96.4 fL [facility] MCH 27.4 27.1 - 33.3 pg [facility] MCHC 31.5(L) 32.3 - 35.7 g/dL [facility] RDW CV 14.4 11.1 - 14.9 % [facility] RDW SD 45.1 35.7 - 48.1 fL [facility] NRBC abs 0.00 0.00 - 0.01 K/cumm [facility] Blood 04/22/2024 7:16 AM CDT 04/22/2024 8:12 AM CDT Pricilla Andino MD LAB BLOOD ORDERABLES Final Resul t Performing Organization Address [facility] Co de Phone Number [address] [place] [address] * Renal function panel (04/22/2024 7:16 AM CDT) Pathologist [facility] Sodium 140 135 - 145 mmol/L Potassium, pl 3.8 3.3 - 4.9 mmol/L [facility] Chloride 105 97 - 110 mmol/L [facility] CO2 27 22 - 32 mmol/L [facility] Anion gap 8 2 - 15 mmol/L [facility] BUN 13 6 - 25 mg/dL [facility] Creatinine 0.81 0.60 - 1.10 mg/dL [facility] Glucose 117 70 - 199 mg/dL [facility] Comment: Interpretive Data Fasting glucose >/= 126 mg/dl is diagnostic for diabetes. ?? Fasting is defined as no caloric intake for at least 8 hours. Fasting glucose between 100 mg/dl to 125 mg/dl is diagnostic of prediabetes. In a patient with classic symptoms of hyperglycemia or hyperglycemic crisis, a random glucose >/= 200 mg/dl is diagnostic for diabetes. In the absence of unequivocal hyperglycemia, results should be confirmed by repeat testing. The classification and Diagnosis of Diabetes Diabetes Care 2021; 46: S19-S40. Current interpretive data was last revised 2022. Calcium 9.6 8.5 - 10.3 mg/dL [facility] Phosphorus, pl 4.3 2.3 - 4.5 mg/dL [facility] Albumin 3.7 3.5 - 5.0 g/dL [facility] Blood 04/22/2024 7:16 AM CDT 04/22/2024 8:12 AM CDT us Pricilla Andino MD LAB BLOOD ORDERABLES Final Resul t [facility] [address] [facility] [place] [address] * POCT glucose (04/21/2024 7:59 PM CDT) Glucose, POC 176 70 - 199 mg/dL Glucose comment 1 Use This Result [facility] Blood 04/21/2024 7:59 PM CDT 04/21/2024 7:59 PM CDT Pricilla Andino MD LAB POCT ORDERABLES - DEVICE Fin al Result Performing Organization Address [facility] Co de Phone Number NADINE [address] [place] [address] * POCT glucose (04/21/2024 4:57 PM CDT) Glucose, POC 139 70 - 199 mg/dL Glucose comment 1 Use This Result NADINE Blood 04/21/2024 4:57 PM CDT 04/21/2024 4:57 PM CDT Pricilla Andino MD LAB POCT ORDERABLES - DEVICE Fin al Result Performing Organization Address [facility] de Phone Number NADINE [address] [place] [address] * EEG (04/21/2024 1:48 PM CDT) Anatomical Region Laterality Modality Other Narrative 04/21/2024 1:48 PM CDT Arpan Rodgers MD ? 04/21/2024 ??1:51 PM Reason for exam: ??Altered mental status Technical: This is a digitally recorded electroencephalogram. It was just over 23 minutes long. ??The international 10-20 electrode placement system is used for scalp electrode placement. Eighteen channels of scalp EEG are recorded. One channel was used for EOG. Another channel was used for ECG. The data are stored digitally and reviewed in reformatted montages for optimal display. Background: ??Background consists primarily of 5-6 hertz theta range activity. ??This is seen bilaterally. ??It is not particularly well reactive to eye opening or closure. ?? Intermittently seen periods of attenuation primarily over the right occipital region. ??Also seen are intermittent left temporal sharp and wave discharges. ?? Description: . No seizure like activity was observed during this recording. Patient entered into periods of drowsiness and light sleep. Hyperventilation was not performed due to patient's clinical condition. ?? Photic stimulation was performed without any additional abnormalities. ?? Impression: ??Abnormal EEG. ??Left temporal discharges could suggest underlying epileptogenicity. ??Intermittent right occipital attenuation suggests focal dysfunction, and consider underlying structural lesion. ??Generalized slowing suggests diffuse cerebral dysfunction, as can be seen in encephalopathy due to various etiologies. ??No seizure like activity was observed. Correlation with clinical findings is needed. Result [facility] Sailaja ZARATE NEUROLOGY ORDERABLES Final Result * POCT glucose (04/21/2024 12:05 PM CDT) Glucose, POC 152 70 - 199 mg/dL Glucose comment 1 Use This Result [facility] Blood 04/21/2024 12:0 5 PM CDT 04/21/2024 12:05 PM CDT Result [facility] Pricilla Andino MD LAB POCT ORDERABLES - DEVICE Fin al Result Performing Organization Address [facility] de Phone Number HUGO[address] [place] [address] * POCT glucose (04/21/2024 8:05 AM CDT) Glucose, POC 116 70 - 199 mg/dL Glucose comment 1 Use This Result NADINE Blood 04/21/2024 8:05 AM CDT 04/21/2024 8:05 AM CDT Result [facility] Pricilla Andino MD LAB POCT ORDERABLES - DEVICE Fin al Result Performing Organization Address [facility] de Phone Number HUGO[address] [place] [address] * POCT glucose (04/20/2024 9:30 PM CDT) Glucose, POC 115 70 - 199 mg/dL Glucose comment 1 Use This Result [facility] Blood 04/20/2024 9:30 PM CDT 04/20/2024 9:30 PM CDT Result [facility] Pricilla Andino MD LAB POCT ORDERABLES - DEVICE Fin al Result Performing Organization Address [facility] Co de Phone Number NADINE [facility] [place] [address] * POCT glucose (04/20/2024 4:26 PM CDT) Glucose, POC 141 70 - 199 mg/dL Glucose comment 1 Use This Result NADINE Blood 04/20/2024 4:26 PM CDT 04/20/2024 4:26 PM CDT Pricilla Andino MD LAB POCT ORDERABLES - DEVICE Fin al Result Performing Organization Address [facility] Co de Phone Number NADINE [facility] [place] [address] * CTA Head Neck W WO Contrast (04/20/2024 2:42 PM CDT) Anatomical Region Laterality Modality Head and Neck N/A Computed Tomogra phy 04/20/2024 3:38 PM CDT Narrative 04/20/2024 3:57 PM CDT EXAM DESCRIPTION: ?? CTA HEAD NECK W WO CONTRAST REASON FOR STUDY: Acute altered mental status for 2 days in a patient reportedly being treated for UTI. ??Provided focal neurologic deficits. ??No provided history of trauma. 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 ??No provided surgical history. TECHNIQUE: Axial images were first obtained through the brain without contrast. ?? Axial dynamic scanning technique with dynamic contrast enhancement through the intracranial and extracranial carotid and vertebral arteries. Multiplanar reconstruction. All stenosis measurements are based on NASCET criteria. ??3D MIP images rendered on scanning unit and reviewed at time of interpretation. Automated exposure control was used as a dose optimization technique for this examination. CONTRAST TYPE/DOSE: ?? 100 mL Optiray 350 ??injected via ?? peripheral IV site without reported incident. COMPARISON: ?? MRI brain without contrast performed earlier same day FINDINGS: BRAIN: No CT evidence of acute intracranial hemorrhage or increased intracranial pressure. ??Please reference MRI brain performed earlier same day for detailed evaluation of bilateral, gvdwo-innkzen-vduc-left, acute infarcts superimposed on constellation of chronic findings. INTRACRANIAL VESSELS [place]: Occlusion of the P2 segment of the right BUSINESS OWNER/ENGINEER. ??Patent left BUSINESS OWNER/ENGINEER, noting variable, to include severe, stenosis along its course. ?? The anterior, middle, posterior cerebral arteries are all patent. ??No aneurysm. POSTERIOR CIRCULATION: ?? Vertebral arteries as below. ??Patent basilar artery. ?? No aneurysm. BRAIN: ?? No gross evidence of enhancing intracranial lesions. CAROTID CTA RIGHT CAROTIDS: ?? No occlusion or evidence of dissection of the right carotid arterial system, noting calcific atherosclerosis of the bifurcation/bulb produces approximately 55-60% stenosis of the right ICA. LEFT CAROTIDS: ?? No occlusion, hemodynamically significant stenosis, or evidence of dissection of the left carotid arterial system. LEFT VERTEBRAL: ?? Occlusion of the left vertebral artery at the expected point of takeoff with slight scattered diminutive caliber reconstitution along the V2 to V3 segments prior to further occlusion. RIGHT VERTEBRAL: ?? Patent with calcific atherosclerosis producing at least 50% stenosis of the takeoff of the right vertebral artery with variable stenosis along its course. AORTIC ARCH: ?? Three-vessel aortic arch. ??Patent subclavian arteries with calcific atherosclerosis producing variable stenosis. NECK SOFT TISSUE: ?? No acute abnormality. ??No thyroid nodule greater than 1 cm. INCLUDED LUNGS: ?? Biapical pleuroparenchymal scarring. OTHER: ?? No other significant finding. IMPRESSION: No CT evidence of acute intracranial hemorrhage or increased intracranial pressure. Please reference MRI brain performed earlier same day for detailed evaluation of bilateral, vdqno-nlpyhbu-donw-left, acute infarcts superimposed on constellation of chronic findings. Occlusion of the P2 segment of the right BUSINESS OWNER/ENGINEER; patent left BUSINESS OWNER/ENGINEER with variable, to include severe, stenosis along its course. Occlusion of the left vertebral artery at the expected point of takeoff with slight scattered diminutive caliber reconstitution along the V2 and V3 segments prior to further occlusion. Patent right vertebral artery with calcific atherosclerosis producing at least 50% stenosis of the takeoff of the right vertebral artery and variable stenosis along its course. Patent bilateral carotid arterial systems, with calcific atherosclerosis producing approximately 55-60% stenosis of the right ICA, without overt CT angiographic evidence of dissection. ??These significant findings were reported ??by telephone ??to ??patient's nurse Cris for ordering provider Arpan Rodgers ??on ??04/20/2024 ??at ?? 1554 . THIS IS AN ELECTRONICALLY VERIFIED FINAL REPORT 04/20/2024 3:57 PM - Electronically signed by ??Steven Garcia M.D. NICOLAS D: ??04/20/2024 3:57 PM T: Report ID: [id number] Reading Location: ??[id number] Procedure Note Steven Garcia MD - 04/20/2024 EXAM DESCRIPTION: CTA HEAD NECK W WO CONTRAST REASON FOR STUDY: Acute altered mental status for 2 days in a patient reportedly being treated for UTI. Provided focal neurologic deficits. No provided history of trauma. History of hypertension, hyperlipidemia, rheumatoid arthritis, and multiple variable bilateral prior CVA withresidual left hemiparesis. No provided surgical history. TECHNIQUE: Axial images were first obtained through the brain without contrast. Axial dynamic scanning technique with dynamic contrast enhancement throughthe intracranial and extracranial carotid and vertebral arteries. Multiplanar reconstruction. All stenosis measurements are based on NASCET criteria. 3D MIP images rendered on scanning unit and reviewed at time of interpretation. Automated exposure control was used as a dose optimization technique forthis examination. CONTRAST TYPE/DOSE: 100 mL Optiray 350 injected via peripheral IVsite without reported incident. COMPARISON: MRI brain without contrast performed earlier same day FINDINGS: BRAIN: No CT evidence of acute intracranial hemorrhage orincreased intracranial pressure. Please reference MRI brain performed earlier sameday for detailed evaluation of bilateral, xoovl-rbuxwhg-wica-left, acuteinfarcts superimposed on constellation of chronic findings. INTRACRANIAL VESSELS [place]: Occlusion of the P2 segment of the right BUSINESS OWNER/ENGINEER. Patentleft BUSINESS OWNER/ENGINEER, noting variable, to include severe, stenosis along its course. The anterior, middle, posterior cerebral arteries are all patent. Noaneurysm. POSTERIOR CIRCULATION: Vertebral arteries as below. Patent basilarartery. No aneurysm. BRAIN: No gross evidence of enhancing intracranial lesions. CAROTID CTA RIGHT CAROTIDS: No occlusion or evidence of dissection of the rightcarotid arterial system, noting calcific atherosclerosis of the bifurcation/bulb produces approximately 55-60% stenosis of the right ICA. LEFT CAROTIDS: No occlusion, hemodynamically significant stenosis, or evidence of dissection of the left carotid arterial system. LEFT VERTEBRAL: Occlusion of the left vertebral artery at the expectedpoint of takeoff with slight scattered diminutive caliber reconstitution alongthe V2 to V3 segments prior to further occlusion. RIGHT VERTEBRAL: Patent with calcific atherosclerosis producing at least50% stenosis of the takeoff of the right vertebral artery with variablestenosis along its course. AORTIC ARCH: Three-vessel aortic arch. Patent subclavian arteries with calcific atherosclerosis producing variable stenosis. NECK SOFT TISSUE: No acute abnormality. No thyroid nodule greater than1 cm. INCLUDED LUNGS: Biapical pleuroparenchymal scarring. OTHER: No other significant finding. IMPRESSION: No CT evidence of acute intracranial hemorrhage or increased intracranial pressure. Please reference MRI brain performed earlier same day fordetailed evaluation of bilateral, lgmhz-hbyahcp-xlsf-left, acute infarctssuperimposed on constellation of chronic findings. Occlusion of the P2 segment of the right BUSINESS OWNER/ENGINEER; patent left BUSINESS OWNER/ENGINEER withvariable, to include severe, stenosis along its course. Occlusion of the left vertebral artery at the expected point of takeoffwith slight scattered diminutive caliber reconstitution along the V2 and V3 segments prior to further occlusion. Patent right vertebral artery with calcific atherosclerosis producing at least 50% stenosis of the takeoff of the right vertebral artery andvariable stenosis along its course. Patent bilateral carotid arterial systems, with calcific atherosclerosis producing approximately 55-60% stenosis of the right ICA, without overt CT angiographic evidence of dissection. These significant findings were reported by telephone to patientamos Lynch for ordering provider Arpan Rodgers on 04/20/2024 at 1554 . THIS IS AN ELECTRONICALLY VERIFIED FINAL REPORT 04/20/2024 3:57 PM - Electronically signed by Steven Garcia M.D. NICOLAS T: Report ID: [id number] Reading Location: [id number] us Arpan Rodgers MD IMG CT PROCEDURES Fi nal Result * POCT glucose (04/20/2024 12:12 PM CDT) Glucose, POC 117 70 - 199 mg/dL Glucose comment 1 Use This Result NADINE Blood 04/20/2024 12:1 2 PM CDT 04/20/2024 12:12 PM CDT us Pricilla Andino MD LAB POCT ORDERABLES - DEVICE Fin al Result NADINE [address] [facility] [place] [address] * MRI Brain WO Contrast (04/20/2024 11:32 AM CDT) Anatomical Region Laterality Modality Head and Neck N/A Magnetic Resonan ce 04/20/2024 12:0 4 PM CDT Narrative 04/20/2024 12:44 PM CDT EXAM DESCRIPTION: ?? MRI BRAIN WO CONTRAST REASON FOR STUDY: Hx of recent CVA, pt has increased weakness and decreased mental status. ? TECHNIQUE: Multiplanar imaging includes non-contrasted T1, T2, FLAIR, and diffusion with ADC map sequences. Additional sequence(s) sensitive to blood products. Images stored on PACS. ? COMPARISON: ?? Head CT 04/19/2024 FINDINGS: CEREBRUM: No acute intracranial hemorrhage or mass effect. Large acute infarct involving the right occipital and medial temporal lobe extending into the posterior basal ganglia, thalamus, and right splenium. ??Areas of acute to subacute infarct in the right parietal lobe, left frontal and parietal lobes, and left aspect of the splenium. ??Chronic left temporal lobe infarct with patchy diffusion hyperintensity and intermediate ADC signal could represent superimposed acute to subacute infarcts. Chronic infarcts in the right parietal and left frontal lobes. WHITE MATTER: ??Elsewhere in the brain there is moderate patchy and confluent areas of T2/FLAIR hyperintensity in the hemispheric white matter and jessenia compatible with chronic microvascular ischemia. POSTERIOR FOSSA: ??Brainstem and cerebellum otherwise appear unremarkable. EXTRAAXIAL SPACES: ?? No abnormal extra-axial fluid collection. ??Normal size ventricles. BRAIN VOLUME: ?? Dsxs-um-wpjonlmb cerebral volume loss. PITUITARY: ?? Unremarkable. VASCULATURE: ?? Skull base flow voids are present. ORBITS: ?? No masses. Globes normal. PARANASAL SINUSES AND MASTOIDS: ?? No significant mucosal thickening or fluid. ?? OTHER: ?? No other significant finding. IMPRESSION: Large acute infarct involving the right posterior cerebral artery territory. No acute intracranial hemorrhage or mass effect. Multifocal mixed age acute to subacute infarcts in the right parietal lobe, left frontal and parietal lobes, and left aspect of the splenium. Chronic left temporal lobe infarct with patchy diffusion hyperintensity and intermediate ADC signal could represent superimposed acute to subacute infarcts. Moderate sequela of chronic microvascular ischemic disease with chronic infarcts detailed above. These significant findings were reported ??by telephone ??to ??ELLIOT Bloom ?? on ??04/20/2024 ??at ??12:35 p.m. THIS IS AN ELECTRONICALLY VERIFIED FINAL REPORT 04/20/2024 12:44 PM - Electronically signed by ??Angel Kyle M.D. AG D: ??04/20/2024 12:44 PM T: Report ID: [id number] Reading Location: ??[id number] Procedure Note Angel Kyle MD - 04/20/2024 EXAM DESCRIPTION: MRI BRAIN WO CONTRAST REASON FOR STUDY: Hx of recent CVA, pt has increased weakness anddecreased mental status. TECHNIQUE: Multiplanar imaging includes non-contrasted T1, T2, FLAIR, and diffusion with ADC map sequences. Additional sequence(s) sensitive Micromuscle. Images stored on PACS. COMPARISON: Head CT 04/19/2024 FINDINGS: CEREBRUM: No acute intracranial hemorrhage or mass effect. Large acute infarct involving the right occipital and medial temporal lobeextending into the posterior basal ganglia, thalamus, and right splenium. Areas of acute to subacute infarct in the right parietal lobe, left frontal and parietal lobes, and left aspect of the splenium. Chronic left temporallobe infarct with patchy diffusion hyperintensity and intermediate ADC signalcould represent superimposed acute to subacute infarcts. Chronic infarcts in the right parietal and left frontal lobes. WHITE MATTER: Elsewhere in the brain there is moderate patchy andconfluent areas of T2/FLAIR hyperintensity in the hemispheric white matter and jessenia compatible with chronic microvascular ischemia. POSTERIOR FOSSA: Brainstem and cerebellum otherwise appear unremarkable. EXTRAAXIAL SPACES: No abnormal extra-axial fluid collection. Normalsize ventricles. BRAIN VOLUME: Eaoj-qp-ctheqvjq cerebral volume loss. PITUITARY: Unremarkable. VASCULATURE: Skull base flow voids are present. ORBITS: No masses. Globes normal. PARANASAL SINUSES AND MASTOIDS: No significant mucosal thickening orfluid. OTHER: No other significant finding. IMPRESSION: Large acute infarct involving the right posterior cerebral arteryterritory. No acute intracranial hemorrhage or mass effect. Multifocal mixed age acute to subacute infarcts in the right parietallobe, left frontal and parietal lobes, and left aspect of the splenium. Chronic left temporal lobe infarct with patchy diffusion hyperintensityand intermediate ADC signal could represent superimposed acute to subacute infarcts. Moderate sequela of chronic microvascular ischemic disease with chronic infarcts detailed above. These significant findings were reported by telephone to ELLIOT Warren on 04/20/2024 at 12:35 p.m. THIS IS AN ELECTRONICALLY VERIFIED FINAL REPORT 04/20/2024 12:44 PM - Electronically signed by Angel Kyle M.D. AG T: Report ID: [id number] Reading Location: [id number] Jammie Dickson CONCRETE TECHNICIAN IMG MRI PROCEDURES Marcelle l Result * XR Chest 1 View (04/20/2024 8:23 AM CDT) Anatomical Region Laterality Modality Body, Chest N/A Computed Radiogr aphy 04/20/2024 9:02 AM CDT Narrative 04/20/2024 9:03 AM CDT EXAM DESCRIPTION: XR CHEST 1 VIEW REASON FOR STUDY: altered mental status ?? Pt order sts: ams ??Pt chart sts: ??HTN; Hyperlipd. Recent stroke and discharged to rehab ? TECHNIQUE: 1 ??radiographic view(s) of the chest. COMPARISON: No prior studies are available for comparison at time of this dictation. FINDINGS: LUNGS: ??No focal opacity, pleural effusion, or pneumothorax. ?? HEART/MEDIASTINUM: ??Cardiac silhouette normal in size. Mediastinal and hilar contours appear normal. LINES/TUBES: ??None. BONES: ??No acute osseous abnormality. IMPRESSION: No acute pulmonary process. THIS IS AN ELECTRONICALLY VERIFIED FINAL REPORT 04/20/2024 9:03 AM - Electronically signed by ??Johan Wilson M.D. MM D: ??04/20/2024 9:03 AM T: Report ID: [id number] Reading Location: ??[id number] Procedure Note Johan Wilson MD - 04/20/2024 EXAM DESCRIPTION: XR CHEST 1 VIEW REASON FOR STUDY: altered mental status Pt order sts: ams Pt chart sts: HTN; Hyperlipd. Recent stroke anddischarged to rehab TECHNIQUE: 1 radiographic view(s) of the chest. COMPARISON: No prior studies are available for comparison at time of this dictation. FINDINGS: LUNGS: No focal opacity, pleural effusion, or pneumothorax. HEART/MEDIASTINUM: Cardiac silhouette normal in size. Mediastinal andhilar contours appear normal. LINES/TUBES: None. BONES: No acute osseous abnormality. IMPRESSION: No acute pulmonary process. THIS IS AN ELECTRONICALLY VERIFIED FINAL REPORT 04/20/2024 9:03 AM - Electronically signed by Johan Wilson M.D. MM T: Report ID: [id number] Reading Location: [id number] Jammie Dickson NP IMG XR PROCEDURES Final Result * POCT glucose (04/20/2024 8:09 AM CDT) Glucose, POC 133 70 - 199 mg/dL Glucose comment 1 Use This Result NADINE Blood 04/20/2024 8:09 AM CDT 04/20/2024 8:09 AM CDT Pricilla Andino MD LAB POCT ORDERABLES - DEVICE Fin al Result NADINE [address] [facility] [place] [address] * Lactate (04/20/2024 4:24 AM CDT) Lactate 0.8 0.7 - 2.0 mmol/L Blood 04/20/2024 4:24 AM CDT 04/20/2024 4:32 AM CDT us Jammie L. Kustermann CONCRETE TECHNICIAN LAB BLOOD ORDERABLES Fi nal Result Performing Organization Address City/[facility] Co de Phone Number NADINE [address] [place] [address] * eGFR (04/20/2024 4:24 AM CDT) [facility] eGFR 67 >=60 mL/min/1. 73 m2 Comment: Interpretive Data Reference Interval Normal ?>/= 90 mL/min/1.73m2 Mildly decreased* ? 60 - 89 mL/min/1.73m2 Mildly to moderately decreased ?45 - 59 mL/min/1.73m2 Moderately to severely decreased ??30 - 44 mL/min/1.73m2 Severely decreased ?15 - 29 mL/min/1.73m2 Kidney Failure ?< 15 ??mL/min/1.73m2 *Relative to young adult level Estimated glomerular filtration rate is determined by the 2020 CKD-EPI equation recommended by the National Kidney Foundation (A Unifying Approach to GFR Estimation: Recommendations of the NKF-ASK Task Force on Reassessing the Inclusion of Race in Diagnosing Kidney Disease, JASN 202). The CKD-EPI equation should not be used for patients with unstable renal function and has not been validated in children and those over 70. Current interpretive data was last reviewed 2021. Blood 04/20/2024 4:24 AM CDT 04/20/2024 4:32 AM CDT us Jammie Dickson CONCRETE TECHNICIAN LAB BLOOD ORDERABLES Fi nal Result Performing Organization Address City/[facility]/ZIP Co de Phone Number NADINE [address] Department [place] [address] * (ABNORMAL) Differential, auto (04/20/2024 4:24 AM CDT) Neutrophil abs 4.2 1.5 - 6.5 K/cumm Imm gran abs 0.0 0.0 - 0.1 K/cumm [facility] Lymphocyte abs 1.6 0.8 - 3.3 K/cumm [facility] Monocyte abs 0.7 0.2 - 0.8 K/cumm [facility] Eosinophil abs 0.7(H) 0.0 - 0.5 K/cumm [facility] Basophil abs 0.1 0.0 - 0.1 K/cumm [facility] Neutrophil pct 57.2 % [facility] Comment: Interpretive Data Percent cell count reference ranges are not reported, since discordance with absolute values may lead to misinterpretation of CBC data. Current Interpretive Data was last revised on 2017. Imm gran pct 0.3 % [facility] Comment: Interpretive Data Percent cell count reference ranges are not reported, since discordance with absolute values may lead to misinterpretation of CBC data. Current Interpretive Data was last revised on 2017. Lymphocyte pct 22.1 % [facility] Comment: Interpretive Data Percent cell count reference ranges are not reported, since discordance with absolute values may lead to misinterpretation of CBC data. Current Interpretive Data was last revised on 2017. Monocyte pct 9.5 % [facility] Comment: Interpretive Data Percent cell count reference ranges are not reported, since discordance with absolute values may lead to misinterpretation of CBC data. Current Interpretive Data was last revised on 2017. Eosinophil pct 9.5 % [facility] Comment: Interpretive Data Percent cell count reference ranges are not reported, since discordance with absolute values may lead to misinterpretation of CBC data. Current Interpretive Data was last revised on 2017. Basophil pct 1.4 % [facility] Comment: Interpretive Data Percent cell count reference ranges are not reported, since discordance with absolute values may lead to misinterpretation of CBC data. Current Interpretive Data was last revised on 2017. Blood 04/20/2024 4:24 AM CDT 04/20/2024 4:32 AM CDT Jammie Dickson CONCRETE TECHNICIAN LAB BLOOD ORDERABLES Fi nal Result Performing Organization Address [facility] de Phone Number [address] [place] [address] * Thyroid Function [place] (04/20/2024 4:24 AM CDT) [facility] TSH 1.80 0.30 - 4.20 mcIUnit/mL Blood 04/20/2024 4:24 AM CDT 04/20/2024 4:32 AM CDT Jammie Dickson CONCRETE TECHNICIAN LAB BLOOD ORDERABLES Fi nal Result Performing Organization Address [facility] de Phone Number [address] [address] * (ABNORMAL) CBC with auto differential (04/20/2024 4:24 AM CDT) [facility] WBC 7.4 3.8 - 9.9 K/cumm Hgb 9.2(L) 11.9 - 15.5 g/dL [facility] Hct 29.6(L) 35.6 - 45.5 % [facility] Plt 252 150 - 400 K/cumm [facility] MPV 10.5 9.1 - 12.3 fL [facility] RBC 3.43(L) 3.90 - 5.20 M/cumm [facility] MCV 86.3 81.3 - 96.4 fL [facility] MCH 26.8(L) 27.1 - 33.3 pg [facility] MCHC 31.1(L) 32.3 - 35.7 g/dL [facility] RDW CV 14.3 11.1 - 14.9 % [facility] RDW SD 44.2 35.7 - 48.1 fL [facility] NRBC abs 0.00 0.00 - 0.01 K/cumm [facility] Blood 04/20/2024 4:24 AM CDT 04/20/2024 4:32 AM CDT us Jammie Dickson CONCRETE TECHNICIAN LAB BLOOD ORDERABLES Fi nal Result Performing Organization Address [facility]/ZIP Co de Phone Number HUGO[address] [place] [address] * (ABNORMAL) Vitamin D 25 hydroxy (04/20/2024 4:24 AM CDT) Pathologist [facility] Vitamin D 25-OH 13.0(L) 30.0 - 80.0 ng/mL Blood 04/20/2024 4:24 AM CDT 04/20/2024 4:32 AM CDT us Jammie Dickson CONCRETE TECHNICIAN LAB BLOOD ORDERABLES Fi nal Result Performing Organization Address [facility] Co de Phone Number [address] [place] [address] * Phosphorus (04/20/2024 4:24 AM CDT) Pathologist [facility] Phosphorus, pl 3.4 2.3 - 4.5 mg/dL Blood 04/20/2024 4:24 AM CDT 04/20/2024 4:32 AM CDT us Jammie Dickson CONCRETE TECHNICIAN LAB BLOOD ORDERABLES Fi nal Result Performing Organization Address [facility] Co de Phone Number [address] [place] [address] * Magnesium (04/20/2024 4:24 AM CDT) [facility] Magnesium 1.9 1.4 - 2.5 mg/dL Blood 04/20/2024 4:24 AM CDT 04/20/2024 4:32 AM CDT us Jammie Dickson CONCRETE TECHNICIAN LAB BLOOD ORDERABLES Fi nal Result Performing Organization Address City/[facility] Co de Phone Number [address] [place] [address] * (ABNORMAL) Hemoglobin A1c (04/20/2024 4:24 AM CDT) [facility] Hgb A1C 6.2(H) 4.0 - 5.6 % Estimated Average Glucose 131 mg/dL [facility] Comment: The ADA recommends reporting an estimated Average Glucose (eAG) with all Hemoglobin A1c results using the equation derived from a study of 507 normal and diabetic adults. ??Minority populations were underrepresented and children were not included. ?? (Diabetes Care 31:1518-6242, 2008). ??The eAG is not equivalent to a fasting glucose. Blood 04/20/2024 4:24 AM CDT 04/20/2024 4:32 AM CDT us Jammie Dickson NP LAB BLOOD ORDERABLES Fi nal Result Performing Organization Address [facility] de Phone Number [address] [place] [address] * Vitamin B12 (04/20/2024 4:24 AM CDT) [facility] Vitamin B12 672 230 - 1,250 pg/mL Blood 04/20/2024 4:24 AM CDT 04/20/2024 4:32 AM CDT Jammie Dickson NP LAB BLOOD ORDERABLES Fi nal Result Performing Organization Address [facility] de Phone Number [address] [address] * Ammonia (04/20/2024 4:24 AM CDT) [facility] Ammonia <10 <=50 mcmol/L Comment: Please note on 11/18/2023 the unit of measure changed from mcg/dL to mcmol/L. Current Interpretive Data was last revised on 2023. Blood 04/20/2024 4:24 AM CDT 04/20/2024 4:32 AM CDT us Jammie Dickson NP LAB BLOOD ORDERABLES Fi nal Result NADINE [id number] [facility] [place] [address] * (ABNORMAL) Lipid panel (04/20/2024 4:24 AM CDT) Cholesterol 103 30 - 199 mg/dL Comment: Interpretive Data Ages < or = 19 years ??Acceptable: ? <170 mg/dL ??Borderline high: ??170-199 mg/dL ??High: ? >or= 200 mg/dL Ages > or = 20 years ??Desirable: ?<200 mg/dL ??Borderline high: ??200-239 mg/dL ??High: ? >or= 240 mg/dL Literature References: 1. Expert Panel on Integrated Guidelines for Cardiovascular Health and Risk Reduction in Children and Adolescents. Pediatrics 2011;128:S213 2. NCEP Expert Panel. Circulation 2004;110:227 Current Interpretive Data was last revised on 2018. Triglycerides 85 <=149 mg/dL NADINE Comment: Interpretive Data Ages < or = 9 years ??Acceptable: ? <75 mg/dL ??Borderline high: ??75-99 mg/dL ??High: ? >or= 100 mg/dL Ages 10 to 20 years ??Acceptable: ? <90 mg/dL ??Borderline high: ??90-129 mg/dL ??High: ? >or= 130 mg/dL Ages > or = 20 years ??Desirable: ?<150 mg/dL ??Borderline high: ??150-199 mg/dL ??High: ? 200-499 mg/dL ?Very high: ?? >or= 499 mg/dL Literature References: 1. Expert Panel on Integrated Guidelines for Cardiovascular Health and Risk Reduction in Children and Adolescents. Pediatrics 2011;128:S213 2. NCEP Expert Panel. Circulation 2004;110:227 Current Interpretive Data was last revised on 2018. HDL 38(L) >=40 mg/dL NADINE Comment: Interpretive Data Ages < or = 19 years ??Acceptable: ? >45 mg/dL ??Borderline low: ?? 40-45 mg/dL ??Low: ? <40 mg/dL Ages > or = 20 years ??Desirable: ?>or= 60 mg/dL ??Low: ? <40 mg/dL Literature References: 1. Expert Panel on Integrated Guidelines for Cardiovascular Health and Risk Reduction in Children and Adolescents. Pediatrics 2011;128:S213 2. NCEP Expert Panel. Circulation 2004;110:227 Current Interpretive Data was last revised on 2018. LDL, calculated 48 <=129 mg/dL NADINE Comment: Interpretive Data Ages < or = 19 years ??Acceptable: ? <110 mg/dL ??Borderline high: ??110-129 mg/dL ??High: ?>or= 130 mg/dL Ages > or = 20 years ??Optimal: ? <100 mg/dL ??Near optimal: ?100-129 mg/dL ??Borderline high: ?? 130-159 mg/dL ??High: ?>160 mg/dL Calculated using the Javi LDL-C estimating equation. This equation was implemented on 2024. Prior to this date LDL-C was estimated using the Friedewald equation. Literature References: 1. Expert Panel on Integrated Guidelines for Cardiovascular Health and Risk Reduction in Children and Adolescents. Pediatrics 2011;128:S213 2. NCEP Expert Panel. Circulation 2004;110:227 3. Javi Cruz et al. KIM Cardiol. 2020 November 10;5(5):540-548. doi: 10.1001/jamacardio.2020.0013 Current Interpretive Data was last revised on 2024. Non-HDL Cholesterol 65 mg/dL NADINE Comment: Interpretive Data Ages < or = 19 years ??Acceptable: ?<120 mg/dL ??Borderline high: ??120-144 mg/dL ??High: ?>145 mg/dL Ages > or = 20 years ??When triglycerides are >200 mg/dL, Non-HDL cholesterol is a secondary target of ? therapy with treatment goals that are 30 mg/dL greater than the LDL cholesterol target. ? Literature References: 1. Expert Panel on Integrated Guidelines for Cardiovascular Health and Risk Reduction in Children and Adolescents. Pediatrics 2011;128:S213 2. NCEP Expert Panel. Circulation 2004;110:227 Current Interpretive Data was last revised on 2018. Chol/HDL ratio 3 [facility] Blood 04/20/2024 4:24 AM CDT 04/20/2024 4:32 AM CDT Jammie Dickson CONCRETE TECHNICIAN LAB BLOOD ORDERABLES Fi nal Result [facility] [id number] [facility] [place], [place] [id number] * (ABNORMAL) Comprehensive metabolic panel (04/20/2024 4:24 AM CDT) Sodium 139 135 - 145 mmol/L Potassium, pl 4.0 3.3 - 4.9 mmol/L [facility] Chloride 102 97 - 110 mmol/L [facility] CO2 26 22 - 32 mmol/L [facility] Anion gap 11 2 - 15 mmol/L [facility] BUN 18 6 - 25 mg/dL [facility] Creatinine 0.95 0.60 - 1.10 mg/dL [facility] Glucose 115 70 - 199 mg/dL [facility] Comment: Interpretive Data Fasting glucose >/= 126 mg/dl is diagnostic for diabetes. ?? Fasting is defined as no caloric intake for at least 8 hours. Fasting glucose between 100 mg/dl to 125 mg/dl is diagnostic of prediabetes. In a patient with classic symptoms of hyperglycemia or hyperglycemic crisis, a random glucose >/= 200 mg/dl is diagnostic for diabetes. In the absence of unequivocal hyperglycemia, results should be confirmed by repeat testing. The classification and Diagnosis of Diabetes Diabetes Care 2022; 46: S19-S40. Current interpretive data was last revised 2022. Calcium 9.4 8.5 - 10.3 mg/dL [facility] Bilirubin, total 0.3 0.1 - 1.2 mg/dL [facility] Protein, pl 6.4(L) 6.5 - 8.5 g/dL [facility] Albumin 3.8 3.5 - 5.0 g/dL [facility] Alk phos 69 40 - 130 Units/L [facility] ALT 16 7 - 45 Units/L [facility] AST 27 10 - 45 Units/L [facility] Blood 04/20/2024 4:24 AM CDT 04/20/2024 4:32 AM CDT Jammie Dickson CONCRETE TECHNICIAN LAB BLOOD ORDERABLES Fi nal Result NADINE [id number] [facility] [place] [address] * Neuro CT Outside Reference (04/19/2024 5:20 PM CDT) Narrative [email or web address] - 04/20/2024 12:08 PM CDT This order has been auto-finalized and does not contain a result. us Provider Transcribed Order IMG CT PROCEDURES Fin al Result [facility]IO[facility] from Last 3 Months Insurance [facility] Advance Directives For more information, please contact: [phone] Documents on File Type Date Recorded Patient Support Clerk Expl anation ADVANCE DIRECTIVE 05/04/2024 12:[address] [facility] er of [employer] * Full Code (Latest Code Status on File) Date Activated Date Inactivated Comments 04/20/2024 4:57 AM 05/03/2024 7:33 PM Care Teams Milk Bottling Machine Operator Relationship Specialty Start Date End Date William Craig MD PCP - General Internal Medicine 02/03/24
--- OUTSIDE RECORDS SUMMARY | 2024-06-28 21:42 | XMS_ITS | Clinical Summary ---
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 Altered mental status, unspe cified altered mental status type 04/20/2024 UTI (urinary tract infection) 04/20/2024 CVA (cerebral vascular accident) 04/20/2024 Type 2 diabetes mellitus 11/23/2023 Rheumatoid arthritis 12/21/2012 Overview (10/16/2016): Rheumatoid arthritis High risk drug monitoring status 12/21/2012 Overview (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 Hyperlipidemia 02/26/2011 HTN (hypertension) 02/26/2007 Encounters Date Type Department Care Team Description 04/22/2024 9:55 AM CDT Anesthesia Event [facility] Vial Sealer [address] [place] [address] Sharon Betancourt MD Ertel, Michelle N., TIKI 04/20/2024 3:32 AM CDT - 05/03/2024 3:33 PM CDT Hospital Encounter [address] [address] Mindy Tabor MD Volkerding, MD Jan Fuchs Yu, MD Altwal, MD Ivon Lopez Mathew S., DO Chapagain, Akhil, MD Chowdhury, Farhanaz, MD Cerebrovascular accident (CVA), unspecified mechanism (HCC) (Primary Dx) Discharge Disposition: Discharge to SNF 04/19/2024 5:20 PM CDT - 04/19/2024 11:59 PM CDT Hospital Encounter [facility] [employer] [address] [place] [address] Discharge Disposition: Discharge to home or self care 04/19/2024 [facility] [address] [place] [address] Mindy Tabor MD from Last 3 Months Medical History Medical History Date Comments Hypertension Hypertension Stroke (HCC) Arthritis RA (rheumatoid arthritis) (HCC) Family History Medical History Relation Name Comments Hypertension Father Diabetes Mother Hypertension Mother Prostate cancer Other 1 Family histo ry of Cancer, prostate; Hypertension Other 2 Family history of Hypertension; Diabetes Sister Hypertension Sister Relation Name Status Comments Father Mother Other 1 Other 2 Sister Social History Tobacco Use Types Packs/Day Years Used Date Smoking Tobacco: Former Cigarettes Q uit: 2010 Smokeless Tobacco: Never Tobacco Cessation:Counseling Given: Not Answered [facility] Utilities Answer Date Recorded In the past 12 months has [employer], gas, oil, or water [employer] threatened to shut off services in your [...] week 04/20/2024 How often do you attend chur ch or samaritan services? 1 to 4 times per year 04/20/2024 Do you belong to any clubs o r organizations such as synagogue groups, unions, fraternal or athletic groups, or [...] any time in the past 12 m [facility], were you homeless or living in a half-way (including now)? No 04/20/2024 Personal Safety Answer Date Recorded Have you ever been in or are you currently in a harmful physical or emotional relationship or is someone making you feel afraid or unsafe? 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 Gender Identity Not on file Sexual Orientation Not on file Obstetrics History Last Filed Vital Signs Vital Sign [place] [...] 04/20/2024 7:59 AM CDT Plan of Treatment Health Maintenance Due Date Last Done Comments Albumin Creatinine Ratio, Urine 1960 Breast Cancer Screening-Mammogram 1960 Cervical Cancer Screening 1960 Colon Cancer Screening-Colonoscopy 1960 Depression Screening 1960 Hepatitis C Screening 1960 Dilated Eye Exam 1960 Foot Exam 1960 Pneumococcal vaccine <65 (1 of 2 - PCV) 1966 DTaP/Tdap/Td Vaccine (1 - Tdap) 12/25/1971 Hepatitis B Screening 1978 Regular Well Visit/Exam 18-64 1978 Covid-19 Vaccine (5 - 2023-2 5 season) 2024 04/15/2022, 06/03/2021, 10/03/2020, Additional history exists Influenza Vaccine (#1) 2024 Hemoglobin A1C 10/19/2024 04/20/2024 Lipid Panel 04/20/2025 04/20/2024, 11/06/2010 eGFR 05/01/2025 05/01/2024, 04/13, 04/30/2024, Additional history exists Zoster Vaccine Completed 07/07/2023, 03/18/2023 Medical Devices Implanted 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 Shelf Expiration Date Model / [...] AM CDT POCT GLUCOSE DEVICE Routine 05/01/2024 7 :09 AM CDT EGFR Routine 05/01/2024 7:09 AM [...] mg/dL Glucose comment 1 Use This Result [facility] Blood 05/03/2024 11:2 8 AM CDT 05/03/2024 11:28 AM CDT us Hailey Carney MD LAB POCT ORDERABLES - CALDERON CE Final Result [facility] [address] [facility] Department [place] [address] * POCT glucose (05/03/2024 7:54 AM CDT) Glucose, POC 121 70 - 199 mg/dL Glucose comment 1 Use This Result [facility] Blood 05/03/2024 7:54 AM CDT 05/03/2024 7:54 AM CDT Hailey Carney MD LAB POCT ORDERABLES - CALDERON CE Final Result Performing Organization Address [facility] Co de Phone Number [facility] [address] [email or web address] [address] * POCT glucose (05/02/2024 8:42 PM CDT) Glucose, POC 138 70 - 199 mg/dL Glucose comment 1 Use This Result [facility] Blood 05/02/2024 8:42 PM CDT 05/02/2024 8:42 PM CDT us Thang Del Valle DO LAB POCT ORDERABLES - D EVICE Final Result Performing Organization Address [facility] de Phone Number [address] [email or web address] [address] * POCT glucose (05/02/2024 4:45 PM CDT) Glucose, POC 139 70 - 199 mg/dL Glucose comment 1 Use This Result [facility] Blood 05/02/2024 4:45 PM CDT 05/02/2024 4:45 PM CDT us Thang Del Valle DO LAB POCT ORDERABLES - D EVICE Final Result Performing Organization Address City/[facility] de Phone Number [address] [email or web address] [address] * POCT glucose (05/02/2024 11:54 AM CDT) Glucose, POC 142 70 - 199 mg/dL Blood 05/02/2024 11:5 4 AM CDT 05/02/2024 11:54 AM CDT Thang Pradol DO LAB POCT ORDERABLES - D EVICE Final Result Performing Organization Address City/[facility] Co de Phone Number [facility] [address] [facility] [place] [address] * POCT glucose (05/02/2024 8:08 AM CDT) [facility] Glucose, POC 124 70 - 199 mg/dL Glucose comment 1 Use This Result [facility] Blood 05/02/2024 8:08 AM CDT 05/02/2024 8:08 AM CDT Thang Galindo Ivon DO LAB POCT ORDERABLES - D EVICE Final Result Performing Organization Address [facility] Co de Phone Number [facility] [address] [facility] [email or web address] [address] * eGFR (05/01/2024 11:47 PM CDT) [facility] eGFR >90 >=60 mL/min/1. 73 m2 [...] MD LAB BLOOD ORDERABLES Final Resul t [facility] [address] [facility] Department [place] [address] * Differential, auto (05/01/2024 11:47 PM CDT) Neutrophil abs 2.3 1.5 - 6.5 K/cumm Imm gran abs 0.0 0.0 - 0.1 K/cumm [facility] Lymphocyte abs 1.4 0.8 - 3.3 K/cumm [facility] Monocyte abs 0.7 0.2 - 0.8 K/cumm [facility] Eosinophil abs 0.4 0.0 - 0.5 K/cumm [facility] Basophil abs 0.1 0.0 - 0.1 K/cumm [facility] Neutrophil pct 46.8 % [facility] Comment: Interpretive Data Percent cell count reference ranges are not reported, since discordance with absolute values may lead to misinterpretation of CBC data. Current Interpretive Data was last revised on 2017. Imm gran pct 0.2 % [facility] Comment: Interpretive Data Percent cell count reference ranges are not reported, since discordance with absolute values may lead to misinterpretation of CBC data. Current Interpretive Data was last revised on 2017. Lymphocyte pct 29.1 % [facility] Comment: Interpretive Data Percent cell count reference ranges are not reported, since discordance with absolute values may lead to misinterpretation of CBC data. Current Interpretive Data was last revised on 2017. Monocyte pct 13.6 % [facility] Comment: Interpretive Data Percent cell count reference ranges are not reported, since discordance with absolute values may lead to misinterpretation of CBC data. Current Interpretive Data was last revised on 2017. Eosinophil pct 8.9 % [facility] Comment: Interpretive Data Percent cell count reference ranges are not reported, since discordance with absolute values may lead to misinterpretation of CBC data. Current Interpretive Data was last revised on 2017. Basophil pct 1.4 % [facility] Comment: Interpretive Data Percent cell count reference ranges are not reported, since discordance with absolute values may lead to misinterpretation of CBC data. Current Interpretive Data was last revised on 2017. Blood 05/01/2024 11:4 7 PM CDT 05/01/2024 11:52 PM CDT Pricilla Andino MD LAB BLOOD ORDERABLES Final Resul t Performing Organization Address [facility] Co de Phone Number [address] [place] [address] * (ABNORMAL) CBC with auto differential (05/01/2024 11:47 PM CDT) WBC 4.9 3.8 - 9.9 K/cumm Hgb 8.3(L) 11.9 - 15.5 g/dL [facility] Hct 26.6(L) 35.6 - 45.5 % [facility] Plt 232 150 - 400 K/cumm [facility] MPV 10.6 9.1 - 12.3 fL [facility] RBC 3.05(L) 3.90 - 5.20 M/cumm [facility] MCV 87.2 81.3 - 96.4 fL [facility] MCH 27.2 27.1 - 33.3 pg [facility] MCHC 31.2(L) 32.3 - 35.7 g/dL [facility] RDW CV 15.1(H) 11.1 - 14.9 % [facility] RDW SD 47.7 35.7 - 48.1 fL [facility] NRBC abs 0.00 0.00 - 0.01 K/cumm [facility] Blood 05/01/2024 11:4 7 PM CDT 05/01/2024 11:52 PM CDT Pricilla Andino MD LAB BLOOD ORDERABLES Final Resul t Performing Organization Address City/[facility] Co de Phone Number [facility] [address] [place] [address] * Renal function panel (05/01/2024 11:47 PM CDT) [facility] Sodium 141 135 - 145 mmol/L Potassium, pl 4.2 3.3 - 4.9 mmol/L [facility] Comment:Hemolyzed; Potassium value may be falsely elevated by as much as 1.0 mmol/L. Suggest redraw and reanalysis. Chloride 104 97 - 110 mmol/L [facility] CO2 27 22 - 32 mmol/L [facility] Anion gap 10 2 - 15 mmol/L [facility] BUN 25 6 - 25 mg/dL [facility] Creatinine 0.74 0.60 - 1.10 mg/dL [facility] Glucose 122 70 - 199 mg/dL [facility] Comment: Interpretive Data Fasting glucose >/= 126 [...] 2022. Calcium 9.7 8.5 - 10.3 mg/dL [facility] Phosphorus, pl 3.9 2.3 - 4.5 mg/dL [facility] Albumin 3.8 3.5 - 5.0 g/dL [facility] Blood 05/01/2024 11:4 7 PM CDT 05/01/2024 11:52 PM CDT us Pricilla Andino MD LAB BLOOD ORDERABLES Final Resul t [facility] [address] [facility] Department [place] [address] * POCT glucose (05/01/2024 7:56 PM CDT) [facility] Glucose, POC 147 70 - 199 mg/dL Glucose comment 1 Use This Result [facility] Blood 05/01/2024 7:56 PM CDT 05/01/2024 7:56 PM CDT Thang Maganayil DO LAB POCT ORDERABLES - D EVICE Final Result Performing Organization Address [facility] de Phone Number [facility] [address] [address] * POCT glucose (05/01/2024 4:33 PM CDT) Glucose, POC 128 70 - 199 mg/dL Glucose comment 1 Use This Result [facility] Blood 05/01/2024 4:33 PM CDT 05/01/2024 4:33 PM CDT Thang Pradol DO LAB POCT ORDERABLES - D EVICE Final Result Performing Organization Address [facility] de Phone Number [address] [email or web address] [address] * POCT glucose (05/01/2024 11:19 AM CDT) Glucose, POC 151 70 - 199 mg/dL Glucose comment 1 Use This Result [facility] Blood 05/01/2024 11:1 9 AM CDT 05/01/2024 11:19 AM CDT Thang Scotturayil DO LAB POCT ORDERABLES - D EVICE Final Result Performing Organization Address [facility] de Phone Number [address] [address] * eGFR (05/01/2024 7:09 AM CDT) eGFR [...] DO LAB BLOOD ORDERABLES Fi nal Result [facility] [address] [facility] Department [place] [address] * Differential, auto (05/01/2024 7:09 AM CDT) Pathologist [facility] Neutrophil abs 2.7 1.5 - 6.5 K/cumm Imm gran abs 0.0 0.0 - 0.1 K/cumm [facility] Lymphocyte abs 1.5 0.8 - 3.3 K/cumm [facility] Monocyte abs 0.8 0.2 - 0.8 K/cumm [facility] Eosinophil abs 0.5 0.0 - 0.5 K/cumm [facility] Basophil abs 0.1 0.0 - 0.1 K/cumm [facility] Neutrophil pct 48.3 % [facility] Comment: Interpretive Data Percent cell count reference ranges are not reported, since discordance with absolute values may lead to misinterpretation of CBC data. Current Interpretive Data was last revised on 2017. Imm gran pct 0.2 % [facility] Comment: Interpretive Data Percent cell count reference ranges are not reported, since discordance with absolute values may lead to misinterpretation of CBC data. Current Interpretive Data was last revised on 2017. Lymphocyte pct 26.2 % [facility] Comment: Interpretive Data Percent cell count reference ranges are not reported, since discordance with absolute values may lead to misinterpretation of CBC data. Current Interpretive Data was last revised on 2017. Monocyte pct 14.2 % [facility] Comment: Interpretive Data Percent cell count reference ranges are not reported, since discordance with absolute values may lead to misinterpretation of CBC data. Current Interpretive Data was last revised on 2017. Eosinophil pct 9.7 % [facility] Comment: Interpretive Data Percent cell count reference ranges are not reported, since discordance with absolute values may lead to misinterpretation of CBC data. Current Interpretive Data was last revised on 2017. Basophil pct 1.4 % [facility] Comment: Interpretive Data Percent cell count reference ranges are not reported, since discordance with absolute values may lead to misinterpretation of CBC data. Current Interpretive Data was last revised on 2017. Blood 05/01/2024 7:09 AM CDT 05/01/2024 7:48 AM CDT Thang Del Valle DO LAB BLOOD ORDERABLES Fi nal Result [facility] [address] [facility] Department [place] [address] * POCT glucose (05/01/2024 7:09 AM CDT) Glucose, POC 122 70 - 199 mg/dL Glucose comment 1 Use This Result [facility] Blood 05/01/2024 7:09 AM CDT 05/01/2024 7:09 AM CDT Thang Del Valle DO LAB POCT ORDERABLES - D EVICE Final Result Performing Organization Address [facility] de Phone Number [facility] [address] [email or web address] [address] * (ABNORMAL) CBC with auto differential (05/01/2024 7:09 AM CDT) Pathologist [facility] WBC 5.6 3.8 - 9.9 K/cumm Hgb 8.9(L) 11.9 - 15.5 g/dL [facility] Hct 28.5(L) 35.6 - 45.5 % [facility] Plt 236 150 - 400 K/cumm [facility] MPV 10.8 9.1 - 12.3 fL [facility] RBC 3.26(L) 3.90 - 5.20 M/cumm [facility] MCV 87.4 81.3 - 96.4 fL [facility] MCH 27.3 27.1 - 33.3 pg [facility] MCHC 31.2(L) 32.3 - 35.7 g/dL [facility] RDW CV 14.9 11.1 - 14.9 % [facility] RDW SD 47.7 35.7 - 48.1 fL [facility] NRBC abs 0.00 0.00 - 0.01 K/cumm [facility] Blood 05/01/2024 7:09 AM CDT 05/01/2024 7:48 AM CDT Thang Del Valle DO LAB BLOOD ORDERABLES Fi nal Result Performing Organization Address [facility] Co de Phone Number [address] [email or web address] [address] * Magnesium (05/01/2024 7:09 AM CDT) Pathologist [facility] Magnesium 2.1 1.4 - 2.5 mg/dL Blood 05/01/2024 7:09 AM CDT 05/01/2024 7:48 AM CDT Thang Del Valle DO LAB BLOOD ORDERABLES Fi nal Result Performing Organization Address City/[facility]/ZIP Co de Phone Number [facility] [address] [facility] Department [place] [address] * (ABNORMAL) Comprehensive metabolic panel (05/01/2024 7:09 AM CDT) Sodium 144 135 - 145 mmol/L Potassium, pl 3.8 3.3 - 4.9 mmol/L [facility] Chloride 107 97 - 110 mmol/L [facility] CO2 27 22 - 32 mmol/L [facility] Anion gap 10 2 - 15 mmol/L [facility] BUN 26(H) 6 - 25 mg/dL [facility] Creatinine 0.72 0.60 - 1.10 mg/dL [facility] Glucose 114 70 - 199 mg/dL [facility] Comment: Interpretive Data Fasting glucose >/= 126 [...] 2022. Calcium 9.8 8.5 - 10.3 mg/dL [facility] Bilirubin, total 0.3 0.1 - 1.2 mg/dL [facility] Protein, pl 6.5 6.5 - 8.5 g/dL [facility] Albumin 3.8 3.5 - 5.0 g/dL [facility] Alk phos 69 40 - 130 Units/L [facility] ALT 9 7 - 45 Units/L [facility] AST 29 10 - 45 Units/L [facility] Blood 05/01/2024 7:09 AM CDT 05/01/2024 7:48 AM CDT Thang Del Valle DO LAB BLOOD ORDERABLES Fi nal Result [facility] [address] [email or web address] [address] * POCT glucose (04/30/2024 8:32 PM CDT) Glucose, POC 117 70 - 199 mg/dL Glucose comment 1 Use This Result [facility] Blood 04/30/2024 8:32 PM CDT 04/30/2024 8:32 PM CDT us Thang SAlison Kalapurayil DO LAB POCT ORDERABLES - D EVICE Final Result Performing Organization Address [facility] Co de Phone Number [facility] [address] [email or web address] [address] * POCT glucose (04/30/2024 4:42 PM CDT) Glucose, POC 157 70 - 199 mg/dL Glucose comment 1 Use This Result [facility] Glucose comment 2 RN/MD Notified [facility] Blood 04/30/2024 4:42 PM CDT 04/30/2024 4:42 PM CDT us Thang SAlison Kalapurayil DO LAB POCT ORDERABLES - D EVICE Final Result Performing Organization Address [facility] Co de Phone Number HUGO[address] [email or web address] [address] * POCT glucose (04/30/2024 11:50 AM CDT) Glucose, POC 123 70 - 199 mg/dL Glucose comment 1 Use This Result [facility] Blood 04/30/2024 11:5 0 AM CDT 04/30/2024 11:50 AM CDT Thang SAlison Kalapurayil DO LAB POCT ORDERABLES - D EVICE Final Result Performing Organization Address City/[facility] Co de Phone Number [facility] [address] [email or web address] [address] * eGFR (04/30/2024 10:01 AM CDT) Pathologist [facility] eGFR >90 >=60 mL/min/1. 73 m2 [...] LAB BLOOD ORDERABLES Fi nal Result [facility] [address] [facility] Department [place] [address] * (ABNORMAL) Differential, auto (04/30/2024 10:01 AM CDT) Pathologist [facility] Neutrophil abs 2.8 1.5 - 6.5 K/cumm Imm gran abs 0.0 0.0 - 0.1 K/cumm [facility] Lymphocyte abs 1.6 0.8 - 3.3 K/cumm [facility] Monocyte abs 0.7 0.2 - 0.8 K/cumm [facility] Eosinophil abs 0.6(H) 0.0 - 0.5 K/cumm [facility] Basophil abs 0.1 0.0 - 0.1 K/cumm [facility] Neutrophil pct 48.9 % [facility] Comment: Interpretive Data Percent cell count reference ranges are not reported, since discordance with absolute values may lead to misinterpretation of CBC data. Current Interpretive Data was last revised on 2017. Imm gran pct 0.2 % [facility] Comment: Interpretive Data Percent cell count reference ranges are not reported, since discordance with absolute values may lead to misinterpretation of CBC data. Current Interpretive Data was last revised on 2017. Lymphocyte pct 27.7 % [facility] Comment: Interpretive Data Percent cell count reference ranges are not reported, since discordance with absolute values may lead to misinterpretation of CBC data. Current Interpretive Data was last revised on 2017. Monocyte pct 11.4 % [facility] Comment: Interpretive Data Percent cell count reference ranges are not reported, since discordance with absolute values may lead to misinterpretation of CBC data. Current Interpretive Data was last revised on 2017. Eosinophil pct 10.2 % [facility] Comment: Interpretive Data Percent cell count reference ranges are not reported, since discordance with absolute values may lead to misinterpretation of CBC data. Current Interpretive Data was last revised on 2017. Basophil pct 1.6 % [facility] Comment: Interpretive Data Percent cell count reference ranges are not reported, since discordance with absolute values may lead to misinterpretation of CBC data. Current Interpretive Data was last revised on 2017. Blood 04/30/2024 10:0 1 AM CDT 04/30/2024 10:17 AM CDT us Thang Del Valle DO LAB BLOOD ORDERABLES Fi nal Result [facility] [address] [facility] Department [place] [address] * (ABNORMAL) CBC with auto differential (04/30/2024 10:01 AM CDT) [facility] WBC 5.7 3.8 - 9.9 K/cumm Hgb 9.1(L) 11.9 - 15.5 g/dL [facility] Hct 28.5(L) 35.6 - 45.5 % [facility] Plt 233 150 - 400 K/cumm [facility] MPV 10.7 9.1 - 12.3 fL [facility] RBC 3.27(L) 3.90 - 5.20 M/cumm [facility] MCV 87.2 81.3 - 96.4 fL [facility] MCH 27.8 27.1 - 33.3 pg [facility] MCHC 31.9(L) 32.3 - 35.7 g/dL [facility] RDW CV 15.0(H) 11.1 - 14.9 % [facility] RDW SD 47.3 35.7 - 48.1 fL [facility] NRBC abs 0.00 0.00 - 0.01 K/cumm [facility] Blood 04/30/2024 10:0 1 AM CDT 04/30/2024 10:17 AM CDT Thang Del Valle DO LAB BLOOD ORDERABLES Fi nal Result Performing Organization Address [facility] de Phone Number [address] [email or web address] [address] * Magnesium (04/30/2024 10:01 AM CDT) [facility] Magnesium 2.3 1.4 - 2.5 mg/dL Blood 04/30/2024 10:0 1 AM CDT 04/30/2024 10:17 AM CDT [employer] CRENSHAW LAB BLOOD ORDERABLES Fi nal Result Performing Organization Address City/[facility]/ZIP Co de Phone Number [address] [email or web address] [address] * Comprehensive metabolic panel (04/30/2024 10:01 AM CDT) [facility] Sodium 145 135 - 145 mmol/L Potassium, pl 3.7 3.3 - 4.9 mmol/L [facility] Chloride 106 97 - 110 mmol/L [facility] CO2 28 22 - 32 mmol/L [facility] Anion gap 11 2 - 15 mmol/L [facility] BUN 24 6 - 25 mg/dL [facility] Creatinine 0.72 0.60 - 1.10 mg/dL [facility] Glucose 112 70 - 199 mg/dL [facility] Comment: Interpretive Data Fasting glucose >/= 126 [...] 2022. Calcium 9.5 8.5 - 10.3 mg/dL [facility] Bilirubin, total 0.3 0.1 - 1.2 mg/dL [facility] Protein, pl 6.6 6.5 - 8.5 g/dL [facility] Albumin 4.0 3.5 - 5.0 g/dL [facility] Alk phos 70 40 - 130 Units/L [facility] ALT 10 7 - 45 Units/L [facility] AST 25 10 - 45 Units/L [facility] Blood 04/30/2024 10:0 1 AM CDT 04/30/2024 10:17 AM CDT us Thang Del Valle DO LAB BLOOD ORDERABLES Fi nal Result [facility]INE [facility] [address] [facility] Department [place] [address] * POCT glucose (04/30/2024 8:19 AM CDT) Glucose, POC 127 70 - 199 mg/dL Blood 04/30/2024 8:19 AM CDT 04/30/2024 8:19 AM CDT Thang Del Valle DO LAB POCT ORDERABLES - D EVICE Final Result Performing Organization Address City/[facility] Co de Phone Number [address] [email or web address] [address] * POCT glucose (04/29/2024 7:50 PM CDT) Glucose, POC 124 70 - 199 mg/dL Glucose comment 1 Use This Result [facility] Blood 04/29/2024 7:50 PM CDT 04/29/2024 7:50 PM CDT Giancarlo Durant MD LAB POCT ORDERABLES - DEVIC E Final Result Performing Organization Address [facility] Co de Phone Number [address] [address] * POCT glucose (04/29/2024 4:00 PM CDT) Glucose, POC 133 70 - 199 mg/dL Glucose comment 1 Use This Result [facility] Glucose comment 2 RN/MD Notified NAD[facility] Blood 04/29/2024 4:00 PM CDT 04/29/2024 4:00 PM CDT Giancarlo Durant MD LAB POCT ORDERABLES - DEVIC E Final Result Performing Organization Address City/[facility] Co de Phone Number [address] [address] * POCT glucose (04/29/2024 12:01 PM CDT) Glucose, POC 128 70 - 199 mg/dL Glucose comment 1 Use This Result [facility] Glucose comment 2 RN/MD Notified [facility] Blood 04/29/2024 12:0 1 PM CDT 04/29/2024 12:01 PM CDT Giancarlo Durant MD LAB POCT ORDERABLES - DEVIC E Final Result Performing Organization Address [facility] Co de Phone Number NADINE [address] [email or web address] [address] * POCT glucose (04/29/2024 7:16 AM CDT) Pathologist [facility] Glucose, POC 132 70 - 199 mg/dL Glucose comment 1 Use This Result [facility] Glucose comment 2 RN/MD Notified [facility] Blood 04/29/2024 7:16 AM CDT 04/29/2024 7:16 AM CDT Giancarlo Durant MD LAB POCT ORDERABLES - DEVIC E Final Result Performing Organization Address [facility] de Phone Number [address] [address] * eGFR (04/29/2024 12:18 AM CDT) Pathologist [facility] eGFR 88 >=60 mL/min/1. 73 m2 Comment: [...] MD LAB BLOOD ORDERABLES Final Resul t [facility] [address] [facility] Department [place] [address] * Differential, auto (04/29/2024 12:18 AM CDT) Neutrophil abs 3.3 1.5 - 6.5 K/cumm Imm gran abs 0.0 0.0 - 0.1 K/cumm [facility] Lymphocyte abs 2.2 0.8 - 3.3 K/cumm [facility] Monocyte abs 0.7 0.2 - 0.8 K/cumm [facility] Eosinophil abs 0.5 0.0 - 0.5 K/cumm [facility] Basophil abs 0.1 0.0 - 0.1 K/cumm [facility] Neutrophil pct 48.8 % [facility] Comment: Interpretive Data Percent cell count reference ranges are not reported, since discordance with absolute values may lead to misinterpretation of CBC data. Current Interpretive Data was last revised on 2017. Imm gran pct 0.3 % [facility] Comment: Interpretive Data Percent cell count reference ranges are not reported, since discordance with absolute values may lead to misinterpretation of CBC data. Current Interpretive Data was last revised on 2017. Lymphocyte pct 31.9 % [facility] Comment: Interpretive Data Percent cell count reference ranges are not reported, since discordance with absolute values may lead to misinterpretation of CBC data. Current Interpretive Data was last revised on 2017. Monocyte pct 10.5 % [facility] Comment: Interpretive Data Percent cell count reference ranges are not reported, since discordance with absolute values may lead to misinterpretation of CBC data. Current Interpretive Data was last revised on 2017. Eosinophil pct 7.3 % [facility] Comment: Interpretive Data Percent cell count reference ranges are not reported, since discordance with absolute values may lead to misinterpretation of CBC data. Current Interpretive Data was last revised on 2017. Basophil pct 1.2 % [facility] Comment: Interpretive Data Percent cell count reference ranges are not reported, since discordance with absolute values may lead to misinterpretation of CBC data. Current Interpretive Data was last revised on 2017. Blood 04/29/2024 12:1 8 AM CDT 04/29/2024 12:39 AM CDT us Pricilla Andino MD LAB BLOOD ORDERABLES Final Resul t [place] [id number] [facility] Department [place] [address] * (ABNORMAL) CBC with auto differential (04/29/2024 12:18 AM CDT) WBC 6.8 3.8 - 9.9 K/cumm Hgb 9.0(L) 11.9 - 15.5 g/dL [facility] Hct 27.8(L) 35.6 - 45.5 % [facility] Plt 249 150 - 400 K/cumm [facility] MPV 10.6 9.1 - 12.3 fL [facility] RBC 3.26(L) 3.90 - 5.20 M/cumm [facility] MCV 85.3 81.3 - 96.4 fL [facility] MCH 27.6 27.1 - 33.3 pg [facility] MCHC 32.4 32.3 - 35.7 g/dL [facility] RDW CV 14.8 11.1 - 14.9 % [facility] RDW SD 45.7 35.7 - 48.1 fL [facility] NRBC abs 0.00 0.00 - 0.01 K/cumm [facility] Blood 04/29/2024 12:1 8 AM CDT 04/29/2024 12:39 AM CDT Pricilla Andino MD LAB BLOOD ORDERABLES Final Resul t Performing Organization Address City/[facility]/ZIP Co de Phone Number NADINE [address] [place] [address] [place] [address] * (ABNORMAL) Renal function panel (04/29/2024 12:18 AM CDT) Sodium 143 135 - 145 mmol/L Potassium, pl 3.7 3.3 - 4.9 mmol/L [facility] Chloride 106 97 - 110 mmol/L [facility] CO2 27 22 - 32 mmol/L [facility] Anion gap 10 2 - 15 mmol/L [facility] BUN 29(H) 6 - 25 mg/dL [facility] Creatinine 0.76 0.60 - 1.10 mg/dL [facility] Glucose 144 70 - 199 mg/dL [facility] Comment: Interpretive Data Fasting glucose >/= 126 [...] 2022. Calcium 10.2 8.5 - 10.3 mg/dL [facility] Phosphorus, pl 3.7 2.3 - 4.5 mg/dL [facility] Albumin 3.9 3.5 - 5.0 g/dL [facility] Blood 04/29/2024 12:1 8 AM CDT 04/29/2024 12:39 AM CDT Pricilla Andino MD LAB BLOOD ORDERABLES Final Resul t Performing Organization Address City/[facility]/ZIP Co de Phone Number NADINE [address] [place] [address] * POCT glucose (04/28/2024 8:11 PM CDT) Glucose, POC 153 70 - 199 mg/dL Glucose comment 1 Use This Result [facility] Blood 04/28/2024 8:11 PM CDT 04/28/2024 8:11 PM CDT Giancarlo Durant MD LAB POCT ORDERABLES - DEVIC E Final Result Performing Organization Address City/[facility] Co de Phone Number NADINE [address] [email or web address] [address] * POCT glucose (04/28/2024 4:48 PM CDT) Glucose, POC 109 70 - 199 mg/dL Glucose comment 1 Use This Result [facility] Blood 04/28/2024 4:48 PM CDT 04/28/2024 4:48 PM CDT Giancarlo Durant MD LAB POCT ORDERABLES - DEVIC E Final Result Performing Organization Address [facility] de Phone Number [address] [email or web address] [address] * POCT glucose (04/28/2024 11:35 AM CDT) Glucose, POC 162 70 - 199 mg/dL Glucose comment 1 Use This Result [facility] Blood 04/28/2024 11:3 5 AM CDT 04/28/2024 11:35 AM CDT Giancarlo Durant MD LAB POCT ORDERABLES - DEVIC E Final Result Performing Organization Address City/[facility] de Phone Number HU[address] [email or web address] [address] * POCT glucose (04/28/2024 7:48 AM CDT) Glucose, POC 118 70 - 199 mg/dL Glucose comment 1 Use This Result [facility] Blood 04/28/2024 7:48 AM CDT 04/28/2024 7:48 AM CDT Giancarlo Durant MD LAB POCT ORDERABLES - DEVIC E Final Result Performing Organization Address [facility] Co de Phone Number NADINE [address] [email or web address] [address] * POCT glucose (04/27/2024 8:13 PM CDT) Glucose, POC 124 70 - 199 mg/dL Glucose comment 1 Use This Result [facility] Blood 04/27/2024 8:13 PM CDT 04/27/2024 8:13 PM CDT Giancarlo Durant MD LAB POCT ORDERABLES - DEVIC E Final Result Performing Organization Address [facility] de Phone Number NADINE [address] [email or web address] [address] * POCT glucose (04/27/2024 4:22 PM CDT) Glucose, POC 114 70 - 199 mg/dL Glucose comment 1 Use This Result [facility] Blood 04/27/2024 4:22 PM CDT 04/27/2024 4:22 PM CDT Giancarlo Durant MD LAB POCT ORDERABLES - DEVIC E Final Result Performing Organization Address [facility] de Phone Number NADINE [address] [address] * POCT glucose (04/27/2024 11:48 AM CDT) Glucose, POC 140 70 - 199 mg/dL Glucose comment 1 Use This Result [facility] Blood 04/27/2024 11:4 8 AM CDT 04/27/2024 11:48 AM CDT Giancarlo Durant MD LAB POCT ORDERABLES - DEVIC E Final Result Performing Organization Address City/[facility] Co de Phone Number NADINE [address] [email or web address] [address] * POCT glucose (04/27/2024 7:33 AM CDT) Pathologist [facility] Glucose, POC 115 70 - 199 mg/dL Glucose comment 1 Use This Result NADINE Blood 04/27/2024 7:33 AM CDT 04/27/2024 7:33 AM CDT Giancarlo Durant MD LAB POCT ORDERABLES - DEVIC E Final Result Performing Organization Address [facility] de Phone Number NADINE [address] [facility] [email or web address] [address] * eGFR (04/27/2024 12:42 AM CDT) Pathologist [facility] eGFR >90 >=60 mL/min/1. 73 m2 [...] MD LAB BLOOD ORDERABLES Final Resul t [facility] [address] [facility] Department [place] [address] * (ABNORMAL) Differential, auto (04/27/2024 12:42 AM CDT) Pathologist [facility] Neutrophil abs 6.3 1.5 - 6.5 K/cumm Imm gran abs 0.1 0.0 - 0.1 K/cumm [facility] Lymphocyte abs 2.1 0.8 - 3.3 K/cumm [facility] Monocyte abs 0.8 0.2 - 0.8 K/cumm [facility] Eosinophil abs 0.6(H) 0.0 - 0.5 K/cumm [facility] Basophil abs 0.1 0.0 - 0.1 K/cumm [facility] Neutrophil pct 62.7 % [facility] Comment: Interpretive Data Percent cell count reference ranges are not reported, since discordance with absolute values may lead to misinterpretation of CBC data. Current Interpretive Data was last revised on 2017. Imm gran pct 1.4 % [facility] Comment: Interpretive Data Percent cell count reference ranges are not reported, since discordance with absolute values may lead to misinterpretation of CBC data. Current Interpretive Data was last revised on 2017. Lymphocyte pct 21.0 % [facility] Comment: Interpretive Data Percent cell count reference ranges are not reported, since discordance with absolute values may lead to misinterpretation of CBC data. Current Interpretive Data was last revised on 2017. Monocyte pct 8.1 % [facility] Comment: Interpretive Data Percent cell count reference ranges are not reported, since discordance with absolute values may lead to misinterpretation of CBC data. Current Interpretive Data was last revised on 2017. Eosinophil pct 5.6 % [facility] Comment: Interpretive Data Percent cell count reference ranges are not reported, since discordance with absolute values may lead to misinterpretation of CBC data. Current Interpretive Data was last revised on 2017. Basophil pct 1.2 % [facility] Comment: Interpretive Data Percent cell count reference ranges are not reported, since discordance with absolute values may lead to misinterpretation of CBC data. Current Interpretive Data was last revised on 2017. Blood 04/27/2024 12:4 2 AM CDT 04/27/2024 1:13 AM CDT Pricilla Andino MD LAB BLOOD ORDERABLES Final Resul t Performing Organization Address City/[facility] Co de Phone Number [facility] [address] [facility] Department [place] [address] * (ABNORMAL) CBC with auto differential (04/27/2024 12:42 AM CDT) WBC 10.0(H) 3.8 - 9.9 K/cumm Hgb 9.4(L) 11.9 - 15.5 g/dL [facility] Hct 29.5(L) 35.6 - 45.5 % [facility] Plt 270 150 - 400 K/cumm [facility] MPV 10.8 9.1 - 12.3 fL [facility] RBC 3.43(L) 3.90 - 5.20 M/cumm [facility] MCV 86.0 81.3 - 96.4 fL [facility] MCH 27.4 27.1 - 33.3 pg [facility] MCHC 31.9(L) 32.3 - 35.7 g/dL [facility] RDW CV 14.8 11.1 - 14.9 % [facility] RDW SD 46.2 35.7 - 48.1 fL [facility] NRBC abs 0.00 0.00 - 0.01 K/cumm [facility] Blood 04/27/2024 12:4 2 AM CDT 04/27/2024 1:13 AM CDT Pricilla Andino MD LAB BLOOD ORDERABLES Final Resul t NAD[facility] [address] [facility] [email or web address] [address] * Renal function panel (04/27/2024 12:42 AM CDT) Sodium 142 135 - 145 mmol/L Potassium, pl 3.6 3.3 - 4.9 mmol/L [facility] Chloride 106 97 - 110 mmol/L [facility] CO2 24 22 - 32 mmol/L [facility] Anion gap 12 2 - 15 mmol/L [facility] BUN 15 6 - 25 mg/dL [facility] Creatinine 0.70 0.60 - 1.10 mg/dL [facility] Glucose 112 70 - 199 mg/dL [facility] Comment: Interpretive Data Fasting glucose >/= 126 [...] 2022. Calcium 10.0 8.5 - 10.3 mg/dL [facility] Phosphorus, pl 3.5 2.3 - 4.5 mg/dL [facility] Albumin 4.0 3.5 - 5.0 g/dL [facility] Blood 04/27/2024 12:4 2 AM CDT 04/27/2024 1:12 AM CDT Pricilla Andino MD LAB BLOOD ORDERABLES Final Resul t Performing Organization Address [facility]/ZIP Co de Phone Number NADINE [address] [place] [address] * POCT glucose (04/26/2024 7:58 PM CDT) Glucose, POC 124 70 - 199 mg/dL Glucose comment 1 Use This Result [facility] Blood 04/26/2024 7:58 PM CDT 04/26/2024 7:58 PM CDT us Pricilla Andino MD LAB POCT ORDERABLES - DEVICE Fin al Result Performing Organization Address [facility] Co de Phone Number NADINE [address] [email or web address] [address] * POCT glucose (04/26/2024 4:21 PM CDT) Glucose, POC 121 70 - 199 mg/dL Glucose comment 1 Use This Result [facility] Blood 04/26/2024 4:21 PM CDT 04/26/2024 4:21 PM CDT us Pricilla Andino MD LAB POCT ORDERABLES - DEVICE Fin al Result Performing Organization Address [facility] de Phone Number NADINE [address] [email or web address] [address] * POCT glucose (04/26/2024 11:11 AM CDT) Glucose, POC 136 70 - 199 mg/dL Glucose comment 1 Use This Result [facility] Blood 04/26/2024 11:1 1 AM CDT 04/26/2024 11:11 AM CDT us Pricilla Andino MD LAB POCT ORDERABLES - DEVICE Fin al Result Performing Organization Address [facility] Co de Phone Number HUGO[address] [email or web address] [address] * POCT glucose (04/26/2024 7:11 AM CDT) Glucose, POC 125 70 - 199 mg/dL Glucose comment 1 Use This Result [facility] Blood 04/26/2024 7:11 AM CDT 04/26/2024 7:11 AM CDT us Pricilla Andino MD LAB POCT ORDERABLES - DEVICE Fin al Result Performing Organization Address [facility]/ZIP Co de Phone Number NADINE [address] [email or web address] [address] * POCT glucose (04/25/2024 8:23 PM CDT) Glucose, POC 136 70 - 199 mg/dL Blood 04/25/2024 8:23 PM CDT 04/25/2024 8:23 PM CDT Pricilla Andino MD LAB POCT ORDERABLES - DEVICE Fin al Result Performing Organization Address [facility] Co de Phone Number NADINE [address] [address] * POCT glucose (04/25/2024 4:27 PM CDT) Glucose, POC 128 70 - 199 mg/dL Glucose comment 1 Use This Result [facility] Blood 04/25/2024 4:27 PM CDT 04/25/2024 4:27 PM CDT Pricilla Andino MD LAB POCT ORDERABLES - DEVICE Fin al Result Performing Organization Address [facility] Co de Phone Number NADINE [address] [email or web address] [address] * POCT glucose (04/25/2024 11:14 AM CDT) Glucose, POC 124 70 - 199 mg/dL Glucose comment 1 Use This Result NAD[facility] Blood 04/25/2024 11:1 4 AM CDT 04/25/2024 11:14 AM CDT Pricilla Andino MD LAB POCT ORDERABLES - DEVICE Fin al Result Performing Organization Address City/[facility] Co de Phone Number HUGO[address] [email or web address] [address] * POCT glucose (04/25/2024 7:33 AM CDT) Glucose, POC 120 70 - 199 mg/dL Glucose comment 1 Use This Result NADINE [facility]CH[facility]A Blood 04/25/2024 7:33 AM CDT 04/25/2024 7:33 AM CDT Pricilla Andino MD LAB POCT ORDERABLES - DEVICE Fin al Result NADINE [place] [address] [facility] Department [place] [address] * eGFR (04/25/2024 6:42 AM CDT) [facility] eGFR >90 >=60 mL/min/1. 73 m2 [...] MD LAB BLOOD ORDERABLES Final Resul t [facility] [address] [facility] Department [place] [address] * (ABNORMAL) Differential, auto (04/25/2024 6:42 AM CDT) Neutrophil abs 5.6 1.5 - 6.5 K/cumm Imm gran abs 0.0 0.0 - 0.1 K/cumm [facility] Lymphocyte abs 1.9 0.8 - 3.3 K/cumm [facility] Monocyte abs 0.7 0.2 - 0.8 K/cumm [facility] Eosinophil abs 0.8(H) 0.0 - 0.5 K/cumm [facility] Basophil abs 0.1 0.0 - 0.1 K/cumm [facility] Neutrophil pct 61.4 % [facility] Comment: Interpretive Data Percent cell count reference ranges are not reported, since discordance with absolute values may lead to misinterpretation of CBC data. Current Interpretive Data was last revised on 2017. Imm gran pct 0.2 % [facility] Comment: Interpretive Data Percent cell count reference ranges are not reported, since discordance with absolute values may lead to misinterpretation of CBC data. Current Interpretive Data was last revised on 2017. Lymphocyte pct 21.0 % [facility] Comment: Interpretive Data Percent cell count reference ranges are not reported, since discordance with absolute values may lead to misinterpretation of CBC data. Current Interpretive Data was last revised on 2017. Monocyte pct 7.1 % [facility] Comment: Interpretive Data Percent cell count reference ranges are not reported, since discordance with absolute values may lead to misinterpretation of CBC data. Current Interpretive Data was last revised on 2017. Eosinophil pct 8.9 % [facility] Comment: Interpretive Data Percent cell count reference ranges are not reported, since discordance with absolute values may lead to misinterpretation of CBC data. Current Interpretive Data was last revised on 2017. Basophil pct 1.4 % [facility] Comment: Interpretive Data Percent cell count reference ranges are not reported, since discordance with absolute values may lead to misinterpretation of CBC data. Current Interpretive Data was last revised on 2017. Blood 04/25/2024 6:42 AM CDT 04/25/2024 7:03 AM CDT Pricilla Andino MD LAB BLOOD ORDERABLES Final Resul t Performing Organization Address [facility] Co de Phone Number NADINE [address] [email or web address] [address] * (ABNORMAL) CBC with auto differential (04/25/2024 6:42 AM CDT) WBC 9.1 3.8 - 9.9 K/cumm Hgb 9.1(L) 11.9 - 15.5 g/dL [facility] Hct 28.7(L) 35.6 - 45.5 % [facility] Plt 259 150 - 400 K/cumm [facility] MPV 10.5 9.1 - 12.3 fL [facility] RBC 3.32(L) 3.90 - 5.20 M/cumm [facility] MCV 86.4 81.3 - 96.4 fL [facility] MCH 27.4 27.1 - 33.3 pg [facility] MCHC 31.7(L) 32.3 - 35.7 g/dL [facility] RDW CV 14.6 11.1 - 14.9 % [facility] RDW SD 46.5 35.7 - 48.1 fL [facility] NRBC abs 0.00 0.00 - 0.01 K/cumm [facility] Blood 04/25/2024 6:42 AM CDT 04/25/2024 7:03 AM CDT Pricilla Andino MD LAB BLOOD ORDERABLES Final Resul t Performing Organization Address City/[facility]/ZIP Co de Phone Number [address] [email or web address] [address] * Renal function panel (04/25/2024 6:42 AM CDT) Sodium 142 135 - 145 mmol/L Potassium, pl 3.6 3.3 - 4.9 mmol/L [facility] Chloride 107 97 - 110 mmol/L [facility] CO2 24 22 - 32 mmol/L [facility] Anion gap 11 2 - 15 mmol/L [facility] BUN 12 6 - 25 mg/dL [facility] Creatinine 0.71 0.60 - 1.10 mg/dL [facility] Glucose 117 70 - 199 mg/dL [facility] Comment: Interpretive Data Fasting glucose >/= 126 [...] 2022. Calcium 9.6 8.5 - 10.3 mg/dL [facility] Phosphorus, pl 3.1 2.3 - 4.5 mg/dL [facility] Albumin 3.7 3.5 - 5.0 g/dL [facility] Blood 04/25/2024 6:42 AM CDT 04/25/2024 7:03 AM CDT Pricilla Andino MD LAB BLOOD ORDERABLES Final Resul t Performing Organization Address City/[facility] Co de Phone Number [address] [place] [address] * POCT glucose (04/24/2024 8:03 PM CDT) [facility] Glucose, POC 168 70 - 199 mg/dL Glucose comment 1 Use This Result [facility] Blood 04/24/2024 8:03 PM CDT 04/24/2024 8:03 PM CDT Pricilla Andino MD LAB POCT ORDERABLES - DEVICE Fin al Result Performing Organization Address [facility] Co de Phone Number [address] [place] [address] * POCT glucose (04/24/2024 4:35 PM CDT) Glucose, POC 123 70 - 199 mg/dL Glucose comment 1 Use This Result NADINE CANCH[facility]A Blood 04/24/2024 4:35 PM CDT 04/24/2024 4:35 PM CDT us Pricilla Andino MD LAB POCT ORDERABLES - DEVICE Fin al Result [facility] [place] [address] [facility] Department of [place] [address] * CT Head WO Contrast (04/24/2024 4:25 [...] D: ??04/24/2024 5:25 PM T: Report ID: [id number] Reading Location: [id number] Procedure Note Steven Garcia MD - 04/24/2024 [...] 5:25 PM - Electronically signed by Steven VALENZUELA T: Report ID: [id number] Reading Location: [id number] Arpan Rodgers MD IMG CT PROCEDURES Fi nal Result * POCT glucose (04/24/2024 11:47 AM CDT) Glucose, POC 128 70 - 199 mg/dL Glucose comment 1 Use This Result NADINE CANCHOLA Blood 04/24/2024 11:4 7 AM CDT 04/24/2024 11:47 AM CDT Pricilla Andino MD LAB POCT ORDERABLES - DEVICE Fin al Result NADINE JESIKA [address] [facility] Department [place] [address] * US Carotids Duplex Bilateral (04/24/2024 9:07 AM CDT) Anatomical Region Laterality Modality Vascular Bilateral Ultrasound 04/24/2024 Narrative 04/24/2024 12:09 PM CDT 3TIER Job ID: [id number] 3TIER Document ID: [id number] Dictated date/time: [id number] CAROTID DUPLEX. REASON FOR EXAM Slurred speech. [...] subclavian arterial stenosis. Job ID/Internal Job ID: ??[id number] us Radha Land EMERGENCY DEPARTMENT AIDE IMG US PROCEDURES Final Result * POCT glucose (04/24/2024 7:29 AM CDT) [facility] Glucose, POC 123 70 - 199 mg/dL Glucose comment 1 Use This Result NADINE Blood 04/24/2024 7:29 AM CDT 04/24/2024 7:29 AM CDT us Pricilla Andino MD LAB POCT ORDERABLES - DEVICE Fin al Result NADINE [address] [facility] Department [place] [address] * eGFR (04/24/2024 7:01 AM CDT) [facility] eGFR >90 >=60 mL/min/1. 73 m2 [...] 7:01 AM CDT 04/24/2024 7:29 AM CDT us Pricilla Andino MD LAB BLOOD ORDERABLES Final Resul t [facility] [address] [facility] Department [place] [address] * (ABNORMAL) Differential, auto (04/24/2024 7:01 AM CDT) Pathologist [facility] Neutrophil abs 5.2 1.5 - 6.5 K/cumm Imm gran abs 0.0 0.0 - 0.1 K/cumm [facility] Lymphocyte abs 1.8 0.8 - 3.3 K/cumm [facility] Monocyte abs 0.6 0.2 - 0.8 K/cumm [facility] Eosinophil abs 0.8(H) 0.0 - 0.5 K/cumm [facility] Basophil abs 0.1 0.0 - 0.1 K/cumm [facility] Neutrophil pct 61.1 % [facility] Comment: Interpretive Data Percent cell count reference ranges are not reported, since discordance with absolute values may lead to misinterpretation of CBC data. Current Interpretive Data was last revised on 2017. Imm gran pct 0.2 % [facility] Comment: Interpretive Data Percent cell count reference ranges are not reported, since discordance with absolute values may lead to misinterpretation of CBC data. Current Interpretive Data was last revised on 2017. Lymphocyte pct 20.8 % [facility] Comment: Interpretive Data Percent cell count reference ranges are not reported, since discordance with absolute values may lead to misinterpretation of CBC data. Current Interpretive Data was last revised on 2017. Monocyte pct 6.8 % [facility] Comment: Interpretive Data Percent cell count reference ranges are not reported, since discordance with absolute values may lead to misinterpretation of CBC data. Current Interpretive Data was last revised on 2017. Eosinophil pct 9.9 % [facility] Comment: Interpretive Data Percent cell count reference ranges are not reported, since discordance with absolute values may lead to misinterpretation of CBC data. Current Interpretive Data was last revised on 2017. Basophil pct 1.2 % [facility] Comment: Interpretive Data Percent cell count reference ranges are not reported, since discordance with absolute values may lead to misinterpretation of CBC data. Current Interpretive Data was last revised on 2017. Blood 04/24/2024 7:01 AM CDT 04/24/2024 7:29 AM CDT us Pricilla Andino MD LAB BLOOD ORDERABLES Final Resul t [facility] [address] [facility] Department [place] [address] * (ABNORMAL) CBC with auto differential (04/24/2024 7:01 AM CDT) WBC 8.4 3.8 - 9.9 K/cumm Hgb 9.0(L) 11.9 - 15.5 g/dL [facility] Hct 28.3(L) 35.6 - 45.5 % [facility] Plt 268 150 - 400 K/cumm [facility] MPV 10.3 9.1 - 12.3 fL [facility] RBC 3.33(L) 3.90 - 5.20 M/cumm [facility] MCV 85.0 81.3 - 96.4 fL [facility] MCH 27.0(L) 27.1 - 33.3 pg [facility] MCHC 31.8(L) 32.3 - 35.7 g/dL [facility] RDW CV 14.7 11.1 - 14.9 % [facility] RDW SD 45.1 35.7 - 48.1 fL [facility] NRBC abs 0.00 0.00 - 0.01 K/cumm [facility] Blood 04/24/2024 7:01 AM CDT 04/24/2024 7:29 AM CDT Pricilla Andino MD LAB BLOOD ORDERABLES Final Resul t Performing Organization Address City/[facility] Co de Phone Number [address] [place] [address] * Magnesium (04/24/2024 7:01 AM CDT) Pathologist [facility] Magnesium 2.3 1.4 - 2.5 mg/dL Blood 04/24/2024 7:01 AM CDT 04/24/2024 7:29 AM CDT Jammie Dickson NP LAB BLOOD ORDERABLES Fi nal Result Performing Organization Address City/[facility] Co de Phone Number [address] [email or web address] [address] * Renal function panel (04/24/2024 7:01 AM CDT) Sodium 143 135 - 145 mmol/L Potassium, pl 4.1 3.3 - 4.9 mmol/L [facility] Chloride 109 97 - 110 mmol/L [facility] CO2 23 22 - 32 mmol/L [facility] Anion gap 11 2 - 15 mmol/L [facility] BUN 17 6 - 25 mg/dL [facility] Creatinine 0.72 0.60 - 1.10 mg/dL [facility] Glucose 106 70 - 199 mg/dL [facility] Comment: Interpretive Data Fasting glucose >/= 126 [...] 2022. Calcium 9.3 8.5 - 10.3 mg/dL [facility] Phosphorus, pl 2.9 2.3 - 4.5 mg/dL [facility] Albumin 3.7 3.5 - 5.0 g/dL [facility] Blood 04/24/2024 7:01 AM CDT 04/24/2024 7:29 AM CDT Pricilla Andino MD LAB BLOOD ORDERABLES Final Resul t [facility] [address] [facility] Department [place] [address] * ECG 12 lead (04/24/2024 12:14 AM CDT) Ventricular Rate EKG/Min 80 BPM [facility] Atrial Rate 80 BPM [facility] OH-Interval (MSEC) 142 ms [facility] QRS-Interval (MSEC) 76 ms [facility] QT-Interval (MSEC) 366 ms [facility] QTc 422 ms [facility] P Dennis 52 degrees [facility] R Dennis 14 degrees [facility] T Dennis 86 degrees [facility] Diagnosis Normal sinus rhythm Nonspecific T wave abnormality No previous ECGs available Confirmed by SULTAN RAEL M.D. ([id number]) on 04/24/2024 8:40:31 PM [facility] 04/24/2024 12:1 4 AM CDT 04/24/2024 8:40 PM CDT Jammie Dickson EMERGENCY DEPARTMENT AIDE ECG ORDERABLES Final R esult [facility] * POCT glucose (04/23/2024 8:31 PM CDT) Glucose, POC 132 70 - 199 mg/dL Blood 04/23/2024 8:31 PM CDT 04/23/2024 8:31 PM CDT Pricilla Andino MD LAB POCT ORDERABLES - DEVICE Fin al Result Performing Organization Address City/[facility]/ZIP Co de Phone Number [address] [email or web address] [address] * POCT glucose (04/23/2024 4:55 PM CDT) Glucose, POC 113 70 - 199 mg/dL Glucose comment 1 Use This Result NADINE Blood 04/23/2024 4:55 PM CDT 04/23/2024 4:55 PM CDT Pricilla Andino MD LAB POCT ORDERABLES - DEVICE Fin al Result Performing Organization Address [facility] Co de Phone Number [address] [email or web address] [address] * POCT glucose (04/23/2024 11:54 AM CDT) Glucose, POC 160 70 - 199 mg/dL Glucose comment 1 Use This Result NADINE Blood 04/23/2024 11:5 4 AM CDT 04/23/2024 11:54 AM CDT Pricilla Andino MD LAB POCT ORDERABLES - DEVICE Fin al Result Performing Organization Address City/[facility] Co de Phone Number [address] [email or web address] [address] * eGFR (04/23/2024 10:24 AM CDT) eGFR 85 >=60 mL/min/1. 73 m2 Comment: [...] 4 AM CDT 04/23/2024 10:55 AM CDT us Pricilla Andino MD LAB BLOOD ORDERABLES Final Resul t NADINE [address] [facility] Department [place] [address] * (ABNORMAL) Differential, auto (04/23/2024 10:24 AM CDT) Pathologist [facility] Neutrophil abs 5.4 1.5 - 6.5 K/cumm Imm gran abs 0.0 0.0 - 0.1 K/cumm [facility] Lymphocyte abs 1.5 0.8 - 3.3 K/cumm [facility] Monocyte abs 0.5 0.2 - 0.8 K/cumm [facility] Eosinophil abs 0.6(H) 0.0 - 0.5 K/cumm [facility] Basophil abs 0.1 0.0 - 0.1 K/cumm [facility] Neutrophil pct 66.7 % [facility] Comment: Interpretive Data Percent cell count reference ranges are not reported, since discordance with absolute values may lead to misinterpretation of CBC data. Current Interpretive Data was last revised on 2017. Imm gran pct 0.1 % [facility] Comment: Interpretive Data Percent cell count reference ranges are not reported, since discordance with absolute values may lead to misinterpretation of CBC data. Current Interpretive Data was last revised on 2017. Lymphocyte pct 18.3 % [facility] Comment: Interpretive Data Percent cell count reference ranges are not reported, since discordance with absolute values may lead to misinterpretation of CBC data. Current Interpretive Data was last revised on 2017. Monocyte pct 6.1 % [facility] Comment: Interpretive Data Percent cell count reference ranges are not reported, since discordance with absolute values may lead to misinterpretation of CBC data. Current Interpretive Data was last revised on 2017. Eosinophil pct 7.7 % [facility] Comment: Interpretive Data Percent cell count reference ranges are not reported, since discordance with absolute values may lead to misinterpretation of CBC data. Current Interpretive Data was last revised on 2017. Basophil pct 1.1 % [facility] Comment: Interpretive Data Percent cell count reference ranges are not reported, since discordance with absolute values may lead to misinterpretation of CBC data. Current Interpretive Data was last revised on 2017. Blood 04/23/2024 10:2 4 AM CDT 04/23/2024 10:55 AM CDT us Pricilla Andino MD LAB BLOOD ORDERABLES Final Resul t NADINE [address] [facility] Department [place] [address] * (ABNORMAL) CBC with auto differential (04/23/2024 10:24 AM CDT) WBC 8.2 3.8 - 9.9 K/cumm Hgb 9.9(L) 11.9 - 15.5 g/dL [facility] Hct 30.7(L) 35.6 - 45.5 % [facility] Plt 290 150 - 400 K/cumm [facility] MPV 10.4 9.1 - 12.3 fL [facility] RBC 3.59(L) 3.90 - 5.20 M/cumm [facility] MCV 85.5 81.3 - 96.4 fL [facility] MCH 27.6 27.1 - 33.3 pg [facility] MCHC 32.2(L) 32.3 - 35.7 g/dL [facility] RDW CV 14.6 11.1 - 14.9 % [facility] RDW SD 45.0 35.7 - 48.1 fL [facility] NRBC abs 0.00 0.00 - 0.01 K/cumm [facility] Blood 04/23/2024 10:2 4 AM CDT 04/23/2024 10:55 AM CDT Pricilla Andino MD LAB BLOOD ORDERABLES Final Resul t [facility] [address] [facility] Department of Laboratories [place], [place] [id number] * Renal function panel (04/23/2024 10:24 AM CDT) Sodium 139 135 - 145 mmol/L Potassium, pl 3.4 3.3 - 4.9 mmol/L [facility] Chloride 104 97 - 110 mmol/L [facility] CO2 23 22 - 32 mmol/L [facility] Anion gap 12 2 - 15 mmol/L [facility] BUN 17 6 - 25 mg/dL [facility] Creatinine 0.78 0.60 - 1.10 mg/dL [facility] Glucose 174 70 - 199 mg/dL [facility] Comment: Interpretive Data Fasting glucose >/= 126 [...] 2022. Calcium 10.0 8.5 - 10.3 mg/dL [facility] Phosphorus, pl 3.6 2.3 - 4.5 mg/dL [facility] Albumin 3.9 3.5 - 5.0 g/dL [facility] Blood 04/23/2024 10:2 4 AM CDT 04/23/2024 10:55 AM CDT Pricilla Andino MD LAB BLOOD ORDERABLES Final Resul t Performing Organization Address [facility] Co de Phone Number [address] [email or web address] [address] * POCT glucose (04/23/2024 8:02 AM CDT) Glucose, POC 136 70 - 199 mg/dL Blood 04/23/2024 8:02 AM CDT 04/23/2024 8:02 AM CDT Pricilla Andino MD LAB POCT ORDERABLES - DEVICE Fin al Result Performing Organization Address [facility] Co de Phone Number [address] [email or web address] [address] * POCT glucose (04/22/2024 7:53 PM CDT) Glucose, POC 134 70 - 199 mg/dL Glucose comment 1 Use This Result [facility] Blood 04/22/2024 7:53 PM CDT 04/22/2024 7:53 PM CDT Result [facility] Pricilla Andino MD LAB POCT ORDERABLES - DEVICE Fin al Result Performing Organization Address [facility] Co de Phone Number [address] [email or web address] [address] * CTA Chest Abdomen Pelvis (04/22/2024 5:25 [...] D: ??04/22/2024 7:42 PM T: Report ID: [id number] Reading Location: ??[id number] Procedure Note Channing Lopez MD - 04/22/2024 [...] the bases. PLEURA: No effusion. No pneumothorax. MEDIASTINUM/JORADN: Nonenlarged lymph nodes retrocaval pretracheal space, subcarinal [...] - Electronically signed by Channing Lopez M.D. RB T: Report ID: [id number] Reading Location: [place] [address] us Pricilla Andino MD IMG CT PROCEDURES Final Result * POCT glucose (04/22/2024 4:03 PM CDT) Glucose, POC 167 70 - 199 mg/dL Glucose comment 1 Use This Result [facility] Blood 04/22/2024 4:03 PM CDT 04/22/2024 4:03 PM CDT us Pricilla Andino MD LAB POCT ORDERABLES - DEVICE Fin al Result Performing Organization Address [facility] Co de Phone Number [address] [email or web address] [address] * POCT glucose (04/22/2024 12:02 PM CDT) Glucose, POC 123 70 - 199 mg/dL Glucose comment 1 Use This Result [facility] Blood 04/22/2024 12:0 2 PM CDT 04/22/2024 12:02 PM CDT us Pricilla Andino MD LAB POCT ORDERABLES - DEVICE Fin al Result Performing Organization Address [facility] Co de Phone Number [address] [email or web address] [address] * TRANSESOPHAGEAL ECHO (SHIVAM) W DOPPLER/CF WO CONTRAST (04/22/2024 10:00 AM CDT) Anatomical Region Laterality Modality Ultrasound 04/22/2024 10:0 0 AM CDT Narrative 04/22/2024 10:57 AM CDT ? Version 2 ?Transesophageal Echocardiogram + ----- + :Name: RUTHLYNN JStudy Date: 04/22/2024 ?Status: MHB ?: : ?Patient Location: M[facility] 2 SOUTH^[id number]^Height: 64 in ?: : ?Weight: 127 lbBP: 135/84 mmHg: :: 1960 ? Gender: Female ?BSA: 1.6 m2 ?: :Reason For Study: Stroke, follow up ?: :Ordering Physician: JAN, ? : :SWAN ? : :Referring Physician: ? : :UNKNOWN, NOTINFILE ? : :Performed By: Michelle ? : :Abdoul, RDCS ?: + ----- + Procedure Shivam probe [...] or regurgitation. There is mild TR, trace OH, slight restriction of mitral valve anterior leaflet [...] 2 Transesophageal Echocardiogram + ----- + :Name: LYNN RUTH JStudy Date: 04/22/2024Status: MHB : : Patient Location: [address]^[id number]^Height: 64 in : : : 127 lbBP: 135/84 mmHg: :: 1960 Gender: FemaleBSA: 1.6 m2 : :Reason For Study: Stroke, follow up: :Ordering Physician: JAN,: :PRICILLA: :Referring Physician:: :RONNY DUVALL: :Performed By: Michelle: :NANY Schreiber: + ----- + Procedure Shivam probe [...] stenosisor regurgitation. There is mild TR, trace OH, slight restriction of mitralvalve anterior leaflet with [...] * POCT glucose (04/22/2024 7:17 AM CDT) [facility] Signature Glucose, POC 132 70 - 199 mg/dL Glucose comment 1 Use This Result NADINE Blood 04/22/2024 7:17 AM CDT 04/22/2024 7:17 AM CDT Pricilla Andino MD LAB POCT ORDERABLES - DEVICE Fin al Result Performing Organization Address City/[facility] Co de Phone Number NADINE [address] [place] [address] [employer] [email or web address] [place] [address] * eGFR (04/22/2024 7:16 AM CDT) Pathologist [facility] eGFR 82 >=60 mL/min/1. 73 m2 Comment: [...] ORDERABLES Final Resul t Performing Organization Address City/[facility]/ZIP Co de Phone Number NADINE [address] [facility] Department [email or web address] [place] [address] * (ABNORMAL) Differential, auto (04/22/2024 7:16 AM CDT) Pathologist [facility] Neutrophil abs 2.5 1.5 - 6.5 K/cumm Imm gran abs 0.0 0.0 - 0.1 K/cumm [facility] Lymphocyte abs 1.8 0.8 - 3.3 K/cumm [facility] Monocyte abs 0.6 0.2 - 0.8 K/cumm [facility] Eosinophil abs 0.8(H) 0.0 - 0.5 K/cumm [facility] Basophil abs 0.1 0.0 - 0.1 K/cumm [facility] Neutrophil pct 42.8 % [facility] Comment: Interpretive Data Percent cell count reference ranges are not reported, since discordance with absolute values may lead to misinterpretation of CBC data. Current Interpretive Data was last revised on 2017. Imm gran pct 0.2 % [facility] Comment: Interpretive Data Percent cell count reference ranges are not reported, since discordance with absolute values may lead to misinterpretation of CBC data. Current Interpretive Data was last revised on 2017. Lymphocyte pct 31.5 % [facility] Comment: Interpretive Data Percent cell count reference ranges are not reported, since discordance with absolute values may lead to misinterpretation of CBC data. Current Interpretive Data was last revised on 2017. Monocyte pct 10.2 % [facility] Comment: Interpretive Data Percent cell count reference ranges are not reported, since discordance with absolute values may lead to misinterpretation of CBC data. Current Interpretive Data was last revised on 2017. Eosinophil pct 13.9 % [facility] Comment: Interpretive Data Percent cell count reference ranges are not reported, since discordance with absolute values may lead to misinterpretation of CBC data. Current Interpretive Data was last revised on 2017. Basophil pct 1.4 % [facility] Comment: Interpretive Data Percent cell count reference ranges are not reported, since discordance with absolute values may lead to misinterpretation of CBC data. Current Interpretive Data was last revised on 2017. Blood 04/22/2024 7:16 AM CDT 04/22/2024 8:12 AM CDT us Pricilla Andino MD LAB BLOOD ORDERABLES Final Resul t [address] Department [place] [address] * (ABNORMAL) CBC with auto differential (04/22/2024 7:16 AM CDT) [facility] WBC 5.8 3.8 - 9.9 K/cumm Hgb 8.8(L) 11.9 - 15.5 g/dL [facility] Hct 27.9(L) 35.6 - 45.5 % [facility] Plt 262 150 - 400 K/cumm [facility] MPV 10.6 9.1 - 12.3 fL [facility] RBC 3.21(L) 3.90 - 5.20 M/cumm [facility] MCV 86.9 81.3 - 96.4 fL [facility] MCH 27.4 27.1 - 33.3 pg [facility] MCHC 31.5(L) 32.3 - 35.7 g/dL [facility] RDW CV 14.4 11.1 - 14.9 % [facility] RDW SD 45.1 35.7 - 48.1 fL [facility] NRBC abs 0.00 0.00 - 0.01 K/cumm [facility] Blood 04/22/2024 7:16 AM CDT 04/22/2024 8:12 AM CDT Pricilla Andino MD LAB BLOOD ORDERABLES Final Resul t [address] [place] [address] * Renal function panel (04/22/2024 7:16 AM CDT) [facility] Sodium 140 135 - 145 mmol/L Potassium, pl 3.8 3.3 - 4.9 mmol/L [facility] Chloride 105 97 - 110 mmol/L [facility] CO2 27 22 - 32 mmol/L [facility] Anion gap 8 2 - 15 mmol/L [facility] BUN 13 6 - 25 mg/dL [facility] Creatinine 0.81 0.60 - 1.10 mg/dL [facility] Glucose 117 70 - 199 mg/dL [facility] Comment: Interpretive Data Fasting glucose >/= 126 [...] 2022. Calcium 9.6 8.5 - 10.3 mg/dL [facility] Phosphorus, pl 4.3 2.3 - 4.5 mg/dL [facility] Albumin 3.7 3.5 - 5.0 g/dL [facility] Blood 04/22/2024 7:16 AM CDT 04/22/2024 8:12 AM CDT Pricilla Andino MD LAB BLOOD ORDERABLES Final Resul t Performing Organization Address [facility] Co de Phone Number [address] [place] [address] * POCT glucose (04/21/2024 7:59 PM CDT) Glucose, POC 176 70 - 199 mg/dL Glucose comment 1 Use This Result [facility] Blood 04/21/2024 7:59 PM CDT 04/21/2024 7:59 PM CDT Pricilla Andino MD LAB POCT ORDERABLES - DEVICE Fin al Result Performing Organization Address [facility] Co de Phone Number [address] [place] [address] * POCT glucose (04/21/2024 4:57 PM CDT) Glucose, POC 139 70 - 199 mg/dL Glucose comment 1 Use This Result [facility] Blood 04/21/2024 4:57 PM CDT 04/21/2024 4:57 PM CDT us Pricilla Andino MD LAB POCT ORDERABLES - DEVICE Fin al Result NADINE CANCHOLA [address] [facility] Department [place] [address] * EEG (04/21/2024 1:48 PM CDT) Anatomical [...] observed. Correlation with clinical findings is needed. us [facility] ORDERABLES Final Result * POCT glucose (04/21/2024 12:05 PM CDT) Glucose, POC 152 70 - 199 mg/dL Glucose comment 1 Use This Result NAD[facility] CANCHOLA Blood 04/21/2024 12:0 5 PM CDT 04/21/2024 12:05 PM CDT us Pricilla Andino MD LAB POCT ORDERABLES - DEVICE Fin al Result Performing Organization Address City/[facility] Co de Phone Number NADINE [address] [email or web address] [address] * POCT glucose (04/21/2024 8:05 AM CDT) Glucose, POC 116 70 - 199 mg/dL Glucose comment 1 Use This Result [facility] Blood 04/21/2024 8:05 AM CDT 04/21/2024 8:05 AM CDT Pricilla Andino MD LAB POCT ORDERABLES - DEVICE Fin al Result Performing Organization Address [facility] de Phone Number NADINE [address] [email or web address] [address] * POCT glucose (04/20/2024 9:30 PM CDT) Glucose, POC 115 70 - 199 mg/dL Glucose comment 1 Use This Result [facility] Blood 04/20/2024 9:30 PM CDT 04/20/2024 9:30 PM CDT Pricilla Andino MD LAB POCT ORDERABLES - DEVICE Fin al Result Performing Organization Address [facility] de Phone Number NADINE [address] [email or web address] [address] * POCT glucose (04/20/2024 4:26 PM CDT) Glucose, POC 141 70 - 199 mg/dL Glucose comment 1 Use This Result [facility] Blood 04/20/2024 4:26 PM CDT 04/20/2024 4:26 PM CDT Pricilla Andino MD LAB POCT ORDERABLES - DEVICE Fin al Result Performing Organization Address City/[facility] [facility] Co de Phone Number [place] [address] [facility] Department [place] [address] * CTA Head Neck W WO Contrast [...] same day for detailed evaluation of bilateral, dcftv-bzzijmn-gxrp-left, acute infarcts superimposed on constellation of chronic findings. 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 ??Patent left SOFTWARE TEST AUTOMATION ENGINEER, noting variable, to include severe, stenosis along [...] same day for detailed evaluation of bilateral, ipetq-yublccv-maje-left, acute infarcts superimposed on constellation of chronic findings. 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 [id number] . THIS IS AN ELECTRONICALLY VERIFIED FINAL REPORT 04/20/2024 3:57 PM - Electronically signed by ??Steven Garcia M.D. NICOLAS D: ??04/20/2024 3:57 PM T: Report ID: [id number] Reading Location: ??[id number] Procedure Note Steven Garcia MD - 04/20/2024 [...] earlier sameday for detailed evaluation of bilateral, njqsn-gdbaxeb-hxna-left, acuteinfarcts superimposed on constellation of chronic findings. 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 Patentleft SOFTWARE TEST AUTOMATION ENGINEER, noting variable, to include severe, stenosis along [...] earlier same day fordetailed evaluation of bilateral, injla-quxcqdb-duyb-left, acute infarctssuperimposed on constellation of chronic findings. 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 NICOLAS T: Report ID: [id number] Reading Location: [id number] Arpan Rodgers MD IMG CT PROCEDURES Fi nal Result * POCT glucose (04/20/2024 12:12 PM CDT) [facility] Signature Glucose, POC 117 70 - 199 mg/dL Glucose comment 1 Use This Result NADINE [place] Blood 04/20/2024 12:1 2 PM CDT 04/20/2024 12:12 PM CDT Pricilla Andino MD LAB POCT ORDERABLES - DEVICE Fin al Result NADINE [address] [facility] Department [place] [address] * MRI Brain WO Contrast [...] collection. ??Normal size ventricles. BRAIN VOLUME: ?? Lqau-ny-tigtsxaa cerebral volume loss. PITUITARY: ?? Unremarkable. VASCULATURE: [...] 12:44 PM - Electronically signed by ??Angel SIMPSON D: ??04/20/2024 12:44 PM T: Report ID: [id number] Reading Location: ??[id number] Procedure Note Angel Kyle MD - 04/20/2024 EXAM DESCRIPTION: MRI BRAIN WO CONTRAST REASON FOR STUDY: Hx of recent CVA, pt has increased weakness anddecreased mental status. TECHNIQUE: Multiplanar imaging includes non-contrasted T1, T2, FLAIR, and diffusion with ADC map sequences. Additional sequence(s) sensitive ALCOHOOT. Images stored on PACS. COMPARISON: Head CT [...] extra-axial fluid collection. Normalsize ventricles. BRAIN VOLUME: Chaq-xe-gajqyhaf cerebral volume loss. PITUITARY: Unremarkable. VASCULATURE: Skull [...] Angel Kyle M.D. AG T: Report ID: [id number] Reading Location: [id number] Jammie Dickson EMERGENCY DEPARTMENT AIDE IMG MRI PROCEDURES Marcelle l Result * [...] - Electronically signed by ??Johan Wilson M.D. D: ??04/20/2024 9:03 AM T: Report ID: [id number] Reading Location: ??[id number] Procedure Note Johan Wilson MD - 04/20/2024 [...] Johan Wilson M.D. MM T: Report ID: [id number] Reading Location: [place] [address] Jammie Dickson EMERGENCY DEPARTMENT AIDE IMG XR PROCEDURES Final Result * POCT glucose (04/20/2024 8:09 AM CDT) Pathologist [facility] Glucose, POC 133 70 - 199 mg/dL Glucose comment 1 Use This Result [facility] Blood 04/20/2024 8:09 AM CDT 04/20/2024 8:09 AM CDT Pricilla Andino MD LAB POCT ORDERABLES - DEVICE Fin al Result Performing Organization Address [facility] de Phone Number [address] [place] [address] * Lactate (04/20/2024 4:24 AM CDT) [facility] Lactate 0.8 0.7 - 2.0 mmol/L Blood 04/20/2024 4:24 AM CDT 04/20/2024 4:32 AM CDT Jammie Dickson NP LAB BLOOD ORDERABLES Fi nal Result Performing Organization Address [facility] de Phone Number [address] [place] [address] * eGFR (04/20/2024 4:24 AM CDT) Pathologist [facility] eGFR 67 >=60 mL/min/1. 73 m2 [...] CDT 04/20/2024 4:32 AM CDT Jammie Dickson EMERGENCY DEPARTMENT AIDE LAB BLOOD ORDERABLES [facility] Result [address] [facility] Department [place] [address] * (ABNORMAL) Differential, auto (04/20/2024 4:24 AM CDT) Pathologist [facility] Neutrophil abs 4.2 1.5 - 6.5 K/cumm Imm gran abs 0.0 0.0 - 0.1 K/cumm [facility] Lymphocyte abs 1.6 0.8 - 3.3 K/cumm [facility] Monocyte abs 0.7 0.2 - 0.8 K/cumm [facility] Eosinophil abs 0.7(H) 0.0 - 0.5 K/cumm [facility] Basophil abs 0.1 0.0 - 0.1 K/cumm [facility] Neutrophil pct 57.2 % [facility] Comment: Interpretive Data Percent cell count reference ranges are not reported, since discordance with absolute values may lead to misinterpretation of CBC data. Current Interpretive Data was last revised on 2017. Imm gran pct 0.3 % [facility] Comment: Interpretive Data Percent cell count reference ranges are not reported, since discordance with absolute values may lead to misinterpretation of CBC data. Current Interpretive Data was last revised on 2017. Lymphocyte pct 22.1 % [facility] Comment: Interpretive Data Percent cell count reference ranges are not reported, since discordance with absolute values may lead to misinterpretation of CBC data. Current Interpretive Data was last revised on 2017. Monocyte pct 9.5 % [facility] Comment: Interpretive Data Percent cell count reference ranges are not reported, since discordance with absolute values may lead to misinterpretation of CBC data. Current Interpretive Data was last revised on 2017. Eosinophil pct 9.5 % [facility] Comment: Interpretive Data Percent cell count reference ranges are not reported, since discordance with absolute values may lead to misinterpretation of CBC data. Current Interpretive Data was last revised on 2017. Basophil pct 1.4 % [facility] Comment: Interpretive Data Percent cell count reference ranges are not reported, since discordance with absolute values may lead to misinterpretation of CBC data. Current Interpretive Data was last revised on 2017. Blood 04/20/2024 4:24 AM CDT 04/20/2024 4:32 AM CDT us Jammie Dickson EMERGENCY DEPARTMENT AIDE LAB BLOOD ORDERABLES Fi nal Result Performing Organization Address [facility] de Phone Number [address] [facility] Department [place] [address] * Thyroid Function [place] (04/20/2024 4:24 AM CDT) TSH 1.80 0.30 - 4.20 mcIUnit/mL Blood 04/20/2024 4:24 AM CDT 04/20/2024 4:32 AM CDT us Jammie Dickson EMERGENCY DEPARTMENT AIDE LAB BLOOD ORDERABLES Fi nal Result Performing Organization Address [facility] de Phone Number [address] [address] * (ABNORMAL) CBC with auto differential (04/20/2024 4:24 AM CDT) [facility] WBC 7.4 3.8 - 9.9 K/cumm Hgb 9.2(L) 11.9 - 15.5 g/dL [facility] Hct 29.6(L) 35.6 - 45.5 % [facility] Plt 252 150 - 400 K/cumm [facility] MPV 10.5 9.1 - 12.3 fL [facility] RBC 3.43(L) 3.90 - 5.20 M/cumm [facility] MCV 86.3 81.3 - 96.4 fL [facility] MCH 26.8(L) 27.1 - 33.3 pg [facility] MCHC 31.1(L) 32.3 - 35.7 g/dL [facility] RDW CV 14.3 11.1 - 14.9 % [facility] RDW SD 44.2 35.7 - 48.1 fL [facility] NRBC abs 0.00 0.00 - 0.01 K/cumm [facility] Blood 04/20/2024 4:24 AM CDT 04/20/2024 4:32 AM CDT us Jammie Dickson NP LAB BLOOD ORDERABLES Fi nal Result Performing Organization Address [facility] Co de Phone Number [address] [email or web address] [address] * (ABNORMAL) Vitamin D 25 hydroxy (04/20/2024 4:24 AM CDT) [facility] Vitamin D 25-OH 13.0(L) 30.0 - 80.0 ng/mL Blood 04/20/2024 4:24 AM CDT 04/20/2024 4:32 AM CDT us Jammie Dickson EMERGENCY DEPARTMENT AIDE LAB BLOOD ORDERABLES Fi nal Result Performing Organization Address City/[facility]/ZIP Co de Phone Number [address] [address] * Phosphorus (04/20/2024 4:24 AM CDT) [facility] Phosphorus, pl 3.4 2.3 - 4.5 mg/dL Blood 04/20/2024 4:24 AM CDT 04/20/2024 4:32 AM CDT Jammie Dickson EMERGENCY DEPARTMENT AIDE LAB BLOOD ORDERABLES Fi nal Result Performing Organization Address City/[facility] Co de Phone Number [address] [address] * Magnesium (04/20/2024 4:24 AM CDT) [facility] Magnesium 1.9 1.4 - 2.5 mg/dL Blood 04/20/2024 4:24 AM CDT 04/20/2024 4:32 AM CDT Jammie Dickson EMERGENCY DEPARTMENT AIDE LAB BLOOD ORDERABLES nal Result Performing Organization Address City/[facility] de Phone Number [address] [address] * (ABNORMAL) Hemoglobin A1c (04/20/2024 4:24 AM CDT) [facility] Hgb A1C 6.2(H) 4.0 - 5.6 % Estimated Average Glucose 131 mg/dL NADINE Comment: The ADA recommends reporting an estimated Average Glucose (eAG) with all Hemoglobin A1c results using the equation derived from a study of 507 normal and diabetic adults. ??Minority populations were underrepresented and children were not included. ?? (Diabetes Care 31:0830-5160, 2008). ??The eAG is not equivalent to a fasting glucose. Blood 04/20/2024 4:24 AM CDT 04/20/2024 4:32 AM CDT Jammie Dickson EMERGENCY DEPARTMENT AIDE LAB BLOOD ORDERABLES Fi nal Result Performing Organization Address [facility] Co de Phone Number [address] [email or web address] [address] * Vitamin B12 (04/20/2024 4:24 AM CDT) Vitamin B12 672 230 - 1,250 pg/mL Blood 04/20/2024 4:24 AM CDT 04/20/2024 4:32 AM CDT Jammie Dickson EMERGENCY DEPARTMENT AIDE LAB BLOOD ORDERABLES Fi nal Result Performing Organization Address [facility] de Phone Number [address] [email or web address] [address] * Ammonia (04/20/2024 4:24 AM CDT) Pathologist [facility] Ammonia <10 <=50 mcmol/L Comment: Please note on 11/18/2023 the unit of measure changed from mcg/dL to mcmol/L. Current Interpretive Data was last revised on 2023. Blood 04/20/2024 4:24 AM CDT 04/20/2024 4:32 AM CDT Jammie Dickson EMERGENCY DEPARTMENT AIDE LAB BLOOD ORDERABLES Fi nal Result Performing Organization Address [facility] de Phone Number [address] [email or web address] [address] * (ABNORMAL) Lipid panel (04/20/2024 4:24 AM [...] 2018. LDL, calculated 48 <=129 mg/dL [place] Comment: Interpretive Data Ages < or = [...] last revised on 2018. Chol/HDL ratio 3 [facility] Blood 04/20/2024 4:24 AM CDT 04/20/2024 4:32 AM CDT Jammie Dickson EMERGENCY DEPARTMENT AIDE LAB BLOOD ORDERABLES nal Result [facility] [address] [facility] Department [place] [address] * (ABNORMAL) Comprehensive metabolic panel (04/20/2024 4:24 AM CDT) Sodium 139 135 - 145 mmol/L Potassium, pl 4.0 3.3 - 4.9 mmol/L [facility] Chloride 102 97 - 110 mmol/L [facility] CO2 26 22 - 32 mmol/L [facility] Anion gap 11 2 - 15 mmol/L [facility] BUN 18 6 - 25 mg/dL [facility] Creatinine 0.95 0.60 - 1.10 mg/dL [facility] Glucose 115 70 - 199 mg/dL [facility] Comment: Interpretive Data Fasting glucose >/= 126 [...] 2022. Calcium 9.4 8.5 - 10.3 mg/dL [facility] Bilirubin, total 0.3 0.1 - 1.2 mg/dL [facility] Protein, pl 6.4(L) 6.5 - 8.5 g/dL [facility] Albumin 3.8 3.5 - 5.0 g/dL [facility] Alk phos 69 40 - 130 Units/L [facility] ALT 16 7 - 45 Units/L [facility] AST 27 10 - 45 Units/L [facility] Blood 04/20/2024 4:24 AM CDT 04/20/2024 4:32 AM CDT us Jammie Dickson EMERGENCY DEPARTMENT AIDE LAB BLOOD ORDERABLES Fi nal Result NADINE [place] [address] [facility] Department [place] [address] * Neuro CT Outside Reference (04/19/2024 5:20 PM CDT) Narrative RAD_[email or web address] - 04/20/2024 12:08 PM CDT This order has been auto-finalized and does not contain a result. us Provider Transcribed Order IMG CT PROCEDURES Fin al Result Performing Organization Address [facility] Co de Phone Number RAD_[email or web address] from Last 3 Months Insurance [facility] CMR Advance Directives For more information, please contact: [phone] Documents on File Type Date Recorded Patient Senior Security Analyst Expl anation ADVANCE DIRECTIVE 05/04/2024 12:[address] [facility] er of Senior Data Analyst-Medical * Full Code (Latest Code Status on File) Date Activated Date Inactivated Comments 04/20/2024 4:57 AM 05/03/2024 7:33 PM Care Teams Conditioner Tender Relationship Specialty Start Date End Date William Craig MD PCP - General Internal Medicine 02/03/24
--- OUTSIDE RECORDS SUMMARY | 2024-06-28 21:43 | XMS_ITS | Encounter Summary ---
Author Organization [facility] Healthcare Address [address] [place] [address] Care Team Providers Care Maxillofacial Surgeon Name Role Phone William Craig MD Primary Care Provider [phone] Encounter Details Date Type Department Care Team (Late st Contact Info) Description 04/19/2024 Documentation [facility] Medical Group [facility] Hospitalists [address] [place] [phone] Mindy Tabor MD [address] [place] [address] [place] [address] Social History Tobacco Use Types Packs/Day Years Used Date Smoking Tobacco: Never Assessed [facility] Utilities Answer Date Recorded In the past 12 months has [employer] electric, gas, oil, or water company threatened to shut off services in your [...] often do you attend chur ch or tenriism services? 1 to 4 times per year 04/20/2024 Do you belong to any clubs o r organizations such as jew groups, unions, fraternal or athletic groups, or [...] any time in the past 12 m [facility], were you homeless or living in a nursing home (including now)? No 04/20/2024 Personal Safety Answer Date Recorded Have you ever been in or are you currently in a harmful physical or emotional relationship or is someone making you feel afraid or unsafe? 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 Recent stroke and discharged to rehab. Presents from rehab center with decline in mental status, lethargy X 1-2 days. At rehab, UA still infected: Fernandez in place, was treated with Cefdinir, did not get better VS stable at OSH T: BP: 125/77. HR 83 RR 16 T 98.3 98% on RA Left arm/leg weakness. And leg, from previous stroke Labs normal WBC normal 7.1, Hb 10 (stable from previous Creatine: 0.9 Repeat UA: 3+ leuk >100 WBC BCX drawn, gave rocephin CT brain shows worsening of recent stroke. Subacute infarct involving R internal capsule, and R temporal occipital region, worsened from 04/07/2024. 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 Dr. Rodgers Neuro is agreeable to consult. Will push images to [facility]. documented in this encounter Plan of Treatment Not on file documented as of this encounter Visit Diagnoses Not on filedocumented in this encounter Care Teams Maxillofacial Surgeon Relationship Specialty Start Date End Date William Craig MD PCP - General Internal Medicine 02/03/24 documented as of this encounter
--- OUTSIDE RECORDS SUMMARY | 2024-06-28 21:43 | XMS_ITS | Encounter Summary ---
Author Organization [facility] Healthcare Address [address] [place] [address] Care Team Providers Care Aluminum Boats Assembler Name Role Phone William Craig MD Primary Care Provider [phone] Encounter Details Date Type Department Care Team (Latest Contact Info) Description 04/19/2024 5:20 PM CDT - 04/19/2024 11:59 PM CDT Hospital Encounter [facility] Outside Films [address] [place] [address] Discharge Disposition: Discharge to home or self care Social History Tobacco Use Types Packs/Day Years Used Date Smoking Tobacco: Never Assessed [facility] Utilities Answer Date Recorded In the past 12 months has [email or web address] electric, gas, oil, or water company threatened [...] 04/20/2024 How often do you attend chur or muslim services? 1 to 4 times per year 04/20/2024 Do you belong to any clubs o r organizations such as buddhist groups, unions, fraternal or athletic groups, or [...] any time in the past 12 m [facility], were you homeless or living in a penitentiary (including now)? No 04/20/2024 Personal Safety Answer Date Recorded Have you ever been in or are you currently in a harmful physical or emotional relationship or is someone making you feel afraid or unsafe? 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 Gender Identity Not on file Sexual Orientation Not on file documented as of this encounter Medications at Time of Discharge acetaminophen (TYLENOL) 650 mg suppositoryIndic ations:Headache Disorder,Pain Insert 1 suppository (650 mg total) into the rectum every 6 (six) hours as needed for headaches or pain 04/28/2024 clopidogreL (PLAVIX) 75 mg tablet Take 1 tablet (75 mg total) by mouth daily divalproex (DEPAKOTE SPRINKLE) 125 mg capsule Take 4 capsules (500 mg total) by mouth 2 (two) times a day 04/28/2024 docusate sodium (COLACE) 100 mg capsuleIndicatio ns:constipation Take 1 capsule (100 mg total) by mouth daily as needed for constipation 12 capsule 05/03/2024 ergocalciferol (VITAMIN D) 50,000 unit capsule Take 1 capsule (50,000 Units total) by mouth once a week for 7 doses 05/04/2024 FLUoxetine (PROzac) 20 mg tablet Take 1 tablet (20 mg total) by mouth daily hydrOXYzine (ATARAX) 25 mg tablet Take 1 tablet (25 mg total) by mouth every 6 (six) hours as needed for anxiety leflunomide (ARAVA) 20 mg tabletIndication s:Rheumatoid Arthritis Take 1 tablet (20 mg total) by mouth daily ondansetron (ZOFRAN) 4 mg tablet Take 1 tablet (4 mg total) by mouth every 8 (eight) hours as needed for nausea or vomiting peg 400-hypromellose -glycerin (ARTIFICAL TEARS) 1-0.2-0.2 % ophthalmic solution Administer 1 drop into both eyes 3 (three) times a day as needed for dry eyes 04/28/2024 rivaroxaban (XARELTO) 2.5 mg tabletIndication s:deep venous thrombosis Take 6 tablets (15 mg total) by mouth 2 (two) times a day with meals for 17 days, THEN 8 tablets (20 mg total) daily with dinner. 444 tablet 04/28/2024 rosuvastatin (CRESTOR) 20 mg tablet Take 1 tablet (20 mg total) by mouth nightly tamsulosin (FLOMAX) 0.4 mg extended release capsule Take 1 capsule (0.4 mg total) by mouth daily verapamil SR (CALAN SR) 180 mg CR tablet Take 1 tablet (180 mg total) by mouth daily aspirin 81 mg enteric coated tablet Take 1 tablet (81 mg total) by mouth daily gabapentin (NEURONTIN) 300 mg capsule Take 1 capsule (300 mg total) by mouth 3 (three) times a day as needed (headache) 4 documented as of this encounter Discharge Disposition Disposition Code Departure Means Destination Discharge to home or self care documented in this encounter Plan of Treatment Not on file documented as of this encounter Procedures Procedure Name Priority Date/Time Associated Diagnosis Comments NEURO CT OUTSIDE REFERENCE Routine 04/19/2024 5:20 PM CDT documented in this encounter Results * Neuro CT Outside Reference (04/19/2024 5:20 PM CDT) Narrative BARBARA_[email or web address] - 04/20/2024 12:08 PM CDT This order has been auto-finalized and does not contain a result. us Provider Transcribed Order IMG CT PROCEDURES Fin al Result RAD_CLARIO_MHB_MHE documented in this encounter Visit Diagnoses Not on filedocumented in this encounter Care Teams Aluminum Boats Assembler Relationship Specialty Start Date End Date William Craig MD PCP - General Internal Medicine 02/03/24 documented as of this encounter
--- OUTSIDE RECORDS SUMMARY | 2024-06-28 21:43 | XMS_ITS | Encounter Summary ---
Author Organization [facility] Healthcare Address [address] [place] [id number] Care Team Providers Care Brickmason Name Role Phone William Craig MD Primary Care Provider [phone] Reason for Visit * Auth/Cert (Routine) Specialty Diagnoses / Procedures Referred By Contac t Referred To Contact Diagnoses Altered mental status, unspecified altered mental status type Confusion; Weakness Procedures NA Referral ID Status Reason Start Date Expiration Date Visits Re quested Visits Authorized [id number] 1 1 Encounter Details Date Type Department Care Team (Late st Contact Info) Description 04/22/2024 9:55 AM CDT Anesthesia Event [facility] [employer] Makeup Artist [address] [place] [address] Sharon Betancourt MD [address] [facility] [address] [place] [address] Patt Munguia, SENIOR LABORATORY TECHNICIAN [address] [place] [address] Anesthesia Record Procedure Summary Procedure Name Responsible Anesthesiologist Anesthesia Start Time Anesthesia Stop Time TRANSESOPHAGEAL ECHO (RUT) W DOPPLER/CF Shraon Betancourt MD 04/22/24 0955 04/22/24 1024 Events Date Time Event Comment 04/22/2024 0953 0955 An Start 0955 An Start Data 1001 An Induction The patient was reevaluated immediately before moderate or deep sedation use and before anesthesia induction. 1002 Anesthesia Ready 1003 an mauricio now RUT placed 1024 an stop data 1024 Handoff to RN I completed my handoff to the receiving nurse during which we: 1. Patient identified 2. Responsible provider identified 3. Pertinent medical history reviewed 4. Procedure type and surgical course discussed 5. Intraoperative anesthetic management and any significant issues discussed 6. Expectations and concerns for postop period discussed 7. Questions solicited from receiving nurse 8. Patient disposition at the time of handoff: patient's room, other 1024 An Stop Meds Name Total propofol 140 mg lidocaine 2 % 80 mg LR 300 mL * Agents Name O2 * Blood No blood administrations on file. Lines, Drains, and Airways Type Details Placement Removal Peripheral IV Placement Date: 04/05; Existing LDA Placed by: Other hospital; Catheter Size: 20 G; Orientation: Anterior, Left, Proximal; Location: Forearm; Removal Date: 04/22/24; Removal Time: 1030; Removal Reason: Drainage 04/20/24 0000 by Patsy Benson RN 04/22/24 1030 by Cris Cunha RN Peripheral IV Placement Date: 04/12 08/05; Placement Time: 0956; Catheter Size: 20 G; Orientation: Posterior, Right; Location: Hand; Site Prep: Chlorhexidine; Technique: Anatomical landmarks; Inserted by: Patt Munguia CRNA; Insertion Attempts: 1; Patient Tolerance: Tolerated well; Removal Date: 04/23/24; Removal Time: 1900; Removal Reason: Occluded 04/22/24 0956 by Kana Carson RN 04/23/24 1900 by Jayla Finney RN documented in this encounter Social History Tobacco Use Types Packs/Day Years Used Date Smoking Tobacco: Former Cigarettes Q uit: 2009 Smokeless Tobacco: Never C Utilities Answer Date Recorded In the past 12 months has [employer], gas, oil, or water [employer] threatened to shut off services in your [...] 04/20/2024 How often do you attend [employer] or zoroastrian services? 1 to 4 times per year 04/20/2024 Do you belong to any clubs o r organizations such as confucianist groups, unions, fraternal or athletic groups, or [...] any time in the past 12 m [facility], were you homeless or living in a detention (including now)? No 04/20/2024 Personal Safety Answer Date Recorded Have you ever been in or are you currently in a harmful physical or emotional relationship or is someone making you feel afraid or unsafe? 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 Gender Identity Not on file Sexual Orientation Not on file documented as of this encounter OR Notes * Anesthesia Postprocedure Evaluation - Sharon Betancourt MD - 04/22/2024 3:11 PM CDT Patient: Senia Ruth Procedure Summary Date: 04/22/24 Room / Location: [facility] [employer] Artist Anesthesia Start: 0955 Anesthesia Stop: 1024 Procedure: TRANSESOPHAGEAL ECHO (RUT) W DOPPLER/CF Diagnosis: (Stroke, follow up) Scheduled Providers: Kana Carson RN; Nino Olivia MD Responsible Provider:Sharon Betancourt MD Anesthesia Type: MAC ASA Status: 4 Anesthesia Type: MAC Last vitals BP 125/76 (BP Location: Right arm, Patient Position: HOB 30 degrees) Pulse 88 Temp 36.9 ??C (98.4 ??F) (Oral) Resp 18 SpO2 96% Anesthesia Post Evaluation Patient location during evaluation: PACU Patient participation: complete - patient participated Level of consciousness: fully awake Pain management: adequate Airway patency: adequate Evidence of recall: no Cardiovascular status: acceptable Respiratory status: acceptable Hydration status: acceptable Pt is: normothermic Nausea/Vomiting status: none No notable events documented. * Anesthesia Preprocedure Evaluation - Sharon Betancourt MD - 04/22/2024 9:52 AM CDT Images from the original note were not included. Anesthesia Evaluation Senia Ruth is a 63 y.o. female TRANSESOPHAGEAL ECHO (RUT) W DOPPLER/CF * No surgery found * HISTORY Past Medical History Neurological + CVA/Stroke Cardiovascular + Hypertension Respiratory Pertinent negatives: COPD and asthma Endocrine / Other + Diabetes mellitus Review of Systems Pertinent negatives: SOB; chest pain and heartburn Patient Active Problem List Diagnosis Date Noted Altered mental status, unspecified altered mental status type 04/20/2024 UTI (urinary tract infection) 04/20/2024 CVA (cerebral vascular accident) (HCC) 04/20/2024 Type 2 diabetes mellitus (HCC) 11/23/2023 Rheumatoid arthritis (HCC) 12/21/2012 High risk drug monitoring status 12/21/2012 Hyperlipidemia 02/26/2011 HTN (hypertension) 02/26/2007 Past Medical History: Diagnosis Date Arthritis Hypertension Hypertension RA (rheumatoid arthritis) (HCC) Stroke (HCC) History reviewed. No pertinent surgical history. OB History No obstetric history on file. Allergies Allergen Reactions Lisinopril Other (See comments) Cough Med List Status: Pharmacy Complete Set By: Yeni Fine [facility] at 04/20/2024 11:46 AM Status Comment 04/20/2024 10:50 AM Taking? Last Dose Start Date End Date Provider aspirin 81 mg enteric coated tablet 04/19/2024 -- -- Provider, MD Lakhwinder clopidogreL (PLAVIX) 75 mg tablet 04/19/2024 -- -- Provider, MD Lakhwinder FLUoxetine (PROzac) 20 mg tablet 04/19/2024 -- -- Provider, MD Lakhwinder gabapentin (NEURONTIN) 300 mg capsule 04/19/2024 -- -- Provider, MD Lakhwinder hydrOXYzine (ATARAX) 25 mg tablet Past Week -- -- Provider, MD Lakhwinder leflunomide (ARAVA) 20 mg tablet 04/19/2024 -- -- Provider, MD Lakhwinder ondansetron (ZOFRAN) 4 mg tablet Unknown -- -- Provider, MD Lakhwinder rosuvastatin (CRESTOR) 20 mg tablet Past Week -- -- Provider, MD Lakhwinder tamsulosin (FLOMAX) 0.4 mg extended release capsule 04/19/2024 -- -- Provider, MD Lakhwinder verapamil SR (CALAN SR) 180 mg CR tablet 04/19/2024 -- -- Provider, MD Lakhwinder Current Facility-Administered Medications: acetaminophen (TYLENOL) tablet 650 mg, 650 mg, oral, Q6H PRN, 650 mg at 04/21/24 1758 OR acetaminophen (TYLENOL) 32 mg/mL oral liquid 650 mg, 650 mg, feeding tube, Q6H PRN OR acetaminophen (TYLENOL) suppository 650 mg, 650 mg, rectal, Q6H PRN aspirin enteric coated tablet 81 mg, 81 mg, oral, Daily, 81 mg at 04/21/24 0843 cefTRIAXone (ROCEPHIN) 1,000 mg/10 mL in sterile water (premix) 1,000 mg, 1,000 mg, intravenous, Q24H ROBERTO, 1,000 mg at 04/21/24 0937 clopidogreL (PLAVIX) tablet 75 mg, 75 mg, oral, Daily, 75 mg at 04/21/24 0843 dextrose (GLUTOSE) 40 % gel 15 g, 15 g, oral, Q15 Min PRN OR dextrose (D10W) 10% bolus 250 mL, 250 mL, intravenous, Q15 Min PRN divalproex (DEPAKOTE SPRINKLE) sprinkle capsule 500 mg, 500 mg, oral, BID, 500 mg at 04/21/242000 ergocalciferol (VITAMIN D) capsule 50,000 Units, 50,000 Units, oral, Weekly FLUoxetine (PROzac) capsule 20 mg, 20 mg, oral, Daily, 20 mg at 04/21/24 1350 glucagon injection 1 mg, 1 mg, intramuscular, Q30 Min PRN hydrOXYzine (ATARAX) tablet 25 mg, 25 mg, oral, Q6H PRN, 25 mg at 04/22/24 0259 insulin lispro (HumaLOG, ADMELOG) 100 unit/mL injection 0-4 Units, 0-4 Units, subcutaneous, Nightly insulin lispro (HumaLOG, ADMELOG) 100 unit/mL injection 0-5 Units, 0-5 Units, subcutaneous, TID with meals leflunomide (ARAVA) tablet 20 mg, 20 mg, oral, Daily, 20 mg at 04/21/24 0843 rosuvastatin (CRESTOR) tablet 20 mg, 20 mg, oral, Daily, 20 mg at 04/21/24 0843 sodium chloride 0.9% flush 0.5-20 mL, 0.5-20 mL, intra-catheter, Q8H ROBERTO, 10 mL at 04/22/24 0501 sodium chloride 0.9% flush 0.5-20 mL, 0.5-20 mL, intra-catheter, PRN traMADoL (ULTRAM) tablet 50 mg, 50 mg, oral, Q12H PRN, 50 mg at 04/22/24 0259 Social History Tobacco Use Smoking Status Former Current packs/day: 0.00 Types: Cigarettes Quit date: 2009 Years since quittin.7 Smokeless Tobacco Never Alcohol Use: Not At Risk (04/20/2024) AUDIT-C Frequency of Alcohol Consumption: Never Average Number of Drinks: Patient does not drink Frequency of Binge Drinking: Never Substance and Sexual Activity Drug Use Not Currently Types: Tobacco Family History Problem Relation Age of Onset Diabetes Mother Hypertension Mother Hypertension Father Diabetes Sister Hypertension Sister Prostate cancer Other Family history of Cancer, prostate; Hypertension Other Family history of Hypertension; Vitals: 04/21/24 2351 04/22/24 0338 04/22/24 0824 BP: 136/86 150/84 122/84 Pulse: 96 89 96 Resp: 17 20 18 Temp: 36.5 ??C (97.7 ??F) 37.2 ??C (99 ??F) 36.8 ??C (98.2 ??F) SpO2: 96% 97% 94% PT: No results found for requested labs within last 30 days. INR: No results found for requested labs within last 30 days. APTT: No results found for requested labs within last 30 days. Hgb A1C: 04/20/2024: 6.2 % (H) CBC RBC: 04/22/2024: 3.21 M/cumm (L) RDW: No results found for requested labs within last 30 days. MCHC: 04/22/2024: 31.5 g/dL (L) MCH: 04/22/2024: 27.4 pg MCV: 04/22/2024: 86.9 fL Hct: 04/22/2024: 27.9 % (L) Hgb: 04/22/2024: 8.8 g/dL (L) WBC: 04/22/2024: 5.8 K/cumm MPV: 04/22/2024: 10.6 fL Platelets: 04/22/2024: 262 K/cumm RDW CV: 04/22/2024: 14.4 % RDW Sd: 04/22/2024: 45.1 fL BMP Glucose: 04/22/2024: 132 mg/dL Calcium: 04/22/2024: 9.6 mg/dL Sodium: 04/22/2024: 140 mmol/L Potassium: 04/22/2024: 3.8 mmol/L CO2: 04/22/2024: 27 mmol/L Chloride: 04/22/2024: 105 mmol/L BUN: 04/22/2024: 13 mg/dL Creatinine: 04/22/2024: 0.81 mg/dL STOP-Bang Total Score: 1 DOS Physical Exam Medical history, medications, and allergies reviewed. Attestation: This PAT evaluation 04/22/2024. Airway Exam: Mallampati: II Cardiovascular Exam: Rate: regular Rhythm: regular Pulmonary Exam: (Pulmonary effort is normal. No accessory muscle usage or respiratory distress. ) EENT Exam: trachea midline Dental Exam: Appears intact Skin Exam: Skin is warm. Current state: Patient's current state is interactive and cooperative. Anesthesia Plan ASA 4 My patient is approved for the Anesthesia Controlled Medication protocol when under care of a SENIOR LABORATORY TECHNICIAN Planned anesthesia: MAC Induction: Induction: intravenous. Informed Consent: Discussed plan with SENIOR LABORATORY TECHNICIAN. Anesthesia plan and risks discussed with patient. Consent and Attending signature: I and/or my designee have discussed the anesthesia plan, benefits, possible alternatives, parental presence at time of induction (if indicated), and clinically relevant risks that may include dental injury, unintentional awareness, and/or other complications. The patient and/or parent/legal guardian understand, and agree to proceed. All questions answered. documented in this encounter Plan of Treatment Not on file documented as of this encounter Visit Diagnoses Not on filedocumented in this encounter Administered Medications Inactive Administered Medications - up to 3 most recent administrations Medication Order MAR Action Action Date Dose Rate Site Lactated Ringer's (LR) infusion intravenous, Continuous PRN, Starting on Thu04/22/24 at 0953, Anesthesia Intra-op New Bag 04/22/2024 9:53 AM CDT lidocaine (XYLOCAINE) 20 mg/mL (2 %) injection intravenous, As needed, Starting on Thu04/22/24 at 1001, Anesthesia Intra-op, Indications: Administration of Local AnesthesiaIndications:Administrati on of Local Anesthesia Given 04/22/2024 10:01 AM CDT 80 mg propofoL (DIPRIVAN) 10 mg/mL IV intravenous, As needed, Starting on Thu04/22/24 at 1001, Anesthesia Intra-op Given 04/22/2024 10:14 AM CDT 10 mg Given 04/22/2024 10:12 AM CDT 20 mg Given 04/22/2024 10:10 AM CDT 10 mg documented in this encounter Care Teams Brickmason Relationship Specialty Start Date End Date William Craig MD PCP - General Internal Medicine 02/03/24 documented as of this encounter
--- OUTSIDE RECORDS SUMMARY | 2024-06-28 21:43 | XMS_ITS | Encounter Summary ---
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 Role Phone William Craig MD Primary Care Provider [phone] Reason for Visit * Auth/Cert (Routine) Specialty Diagnoses / Procedures Referred By Contac t Referred To Contact Diagnoses Altered mental status, unspecified altered mental status type Confusion; Weakness Procedures NA Referral ID Status Reason Start Date Expiration Date Visits Re quested Visits Authorized [id number] 1 1 Encounter Details Date Type Department Care Team (Latest Contact Info) Description 04/20/2024 3:32 AM CDT - 05/03/2024 3:33 PM CDT Hospital Encounter [address] [address] Mindy Tabor MD [address] [place] [address] [phone] Man Roberts MD [address] [place] [address] [phone] Sosa Andino MD [address] [place] [address] [phone] Giancarlo Durant MD [address] [place] [phone] Thang Del Valle DO [address] [place] [address] [phone] Ulises Obando MD [facility] HOSPITALIST OFFICE, [place] [address] Hailey Carney MD [address] [facility] [place] [address] Cerebrovascular accident (CVA), unspecified mechanism (HCC) (Primary Dx) Discharge Disposition: Discharge to SNF Social History Tobacco Use Types Packs/Day Years Used Date Smoking Tobacco: Former Cigarettes Q uit: 2010 Smokeless Tobacco: Never Tobacco Cessation:Counseling Given: Not Answered [facility] Utilities Answer Date Recorded In the past 12 months has [employer], gas, oil, or water company threatened to [...] often do you attend chur ch or scientology services? 1 to 4 times per year 04/20/2024 Do you belong to any clubs o r organizations such as buddhism groups, unions, fraternal or athletic groups, or [...] any time in the past 12 [address] [place], were you homeless or living in a fci (including now)? No 04/20/2024 Personal Safety Answer Date Recorded Have you ever been in or are you currently in a harmful physical or emotional relationship or is someone making you feel afraid or unsafe? Denies 04/20/2024 Comments No Sex and Gender Information Value Date Recorded Sex Assigned at Not on file Legal Sex Female 12:40 AM [employer] Gender Identity Not on file Sexual Orientation [...] (126 lb) 05/01/2024 4:22 AM CDT Height 160 cm (5' 3 ) 04/20/2024 3:38 AM CDT Body Mass Index 21.63 04/20/2024 7:59 AM CDT documented in this encounter Discharge Summaries * Giancarlo Durant MD - 04/28/2024 9:34 AM CDT Inpatient Discharge Summary Patient Name - Lynn Zelaya Patient Age - 63 yrs Patient - [id number] [facility] - [id number] Document Creation Date: 04/28/2024 Admitting Provider, MD: Man Roberts MD Discharge Provider, MD: Giancarlo Durant MD Primary Care Physician at Discharge: William Craig MD [phone] Admission Date: 04/20/2024 Discharge Date/time: 04/28/2024 Admission Location: [facility] LOS - LOS: 8 days DETAILS OF HOSPITAL STAY Hospital Problems/Diagnoses Principal Problem: Altered mental status, unspecified altered mental status type Active Problems: HTN (hypertension) Hyperlipidemia Type 2 diabetes mellitus (HCC) UTI (urinary tract infection) CVA (cerebral vascular accident) (HCC) 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 Started anticoagulation during this admission Multiple old strokes UTI Enterococcus and Dallin Carotid artery stenosis Abnormal EEG with possible seizure. Started on Depakote during this admission Found to have vitamin-D deficiency started on replacement Hospital Course: 63-year-old female patient with multiple strokes, hypertension, diabetes, rheumatoid arthritis camefrom skilled nursing with left-sided weakness. Poor vision. And worsening mental status Found to have UTI at and nursing rehab Enterococcus and possible antifungal treated with ampicillin. Given 1 dose of fluconazole. During this hospitalization she underwent EEG. Shivam. Then she was started on chronic anticoagulationwith Xarelto in addition to Plavix. I saw the patient for the 1st time on 04/27/2024 she was still having some confusion she had left-sided weakness her blood pressure was still elevated she was not requiring permissive hypertension anymore She was able to swallow. Restarted her home verapamil and Flomax During this visit found to have carotid stenosis vascular surgery recommended follow-up as outpatient Transesophageal echo done on 04/21/2024 found to have mobile entities on aortic valve cusp consistent with reynolds's excrescence, severe aortic atherosclerosis, moderate mitral stenosis and with multiple strokes in the past patient was started on anticoagulation. Cardiothoracic surgery team consulted and their conclusion that there is no indication for cardiac surgery Patient blood pressure improved she will be discharged to rehab today with plans to continue anticoagulation and to continue Plavix per Neurology recommendations and follow up with Cardiology team asoutpatient Discharge Details Physical Exam at Discharge: Discharge Condition: poor Pulse: 104 Resp: 18 BP: 123/67 Temp: 36.6 ??C (97.9 ??F) Weight: 56.3 kg (124 lb 1.6 oz) Pertinent Exam Findings at Discharge: Severe left-sided weakness 2 to 3/5, confusion awake oriented by 1-2 Discharge Disposition: Discharge to SNF Code Status at Discharge: Full Code Active Issues & Recommended Plan for Follow-up: Continue Depakote twice daily for both seizure and mood Continue anticoagulation with Xarelto Continue Plavix Aspirin discontinued Vitamin-D replacement started during this admission Allergies: Lisinopril Discharge Medications: Your medication list START taking these medications Instructions Last Dose Given Next Dose Due acetaminophen 650 mg suppository Commonly known as: TYLENOL 650 mg, rectal, Every 6 hours PRN divalproex 125 mg capsule Commonly known as: DEPAKOTE SPRINKLE 500 mg, oral, 2 times daily ergocalciferol 50,000 unit capsule Commonly known as: VITAMIN D Start taking on: May 04, 2024 50,000 Units, oral, Weekly peg [id number]-vmdmcsnl 1-0.2-0.2 % ophthalmic solution Commonly known as: ARTIFICAL TEARS 1 drop, each eye, 3 times daily PRN rivaroxaban 2.5 mg tablet Commonly known as: XARELTO Start taking on: April 28, 2024 Take 6 tablets (15 mg total) by mouth 2 (two) times a day with meals for 17 days, THEN 8 tablets (20 mg total) daily with dinner. CONTINUE taking these medications Instructions Last Dose Given Next Dose Due clopidogreL 75 mg tablet Commonly known as: PLAVIX 75 mg, oral, Daily FLUoxetine 20 mg tablet Commonly known as: PROzac 20 mg, oral, Daily hydrOXYzine 25 mg tablet Commonly known as: ATARAX 25 mg, oral, Every 6 hours PRN leflunomide 20 mg tablet Commonly known as: ARAVA 20 mg, oral, Daily ondansetron 4 mg tablet Commonly known as: ZOFRAN 4 mg, oral, Every 8 hours PRN rosuvastatin 20 mg tablet Commonly known as: CRESTOR 20 mg, oral, Nightly tamsulosin 0.4 mg extended release capsule Commonly known as: FLOMAX 0.4 mg, oral, Daily verapamil SR 180 mg CR tablet Commonly known as: CALAN SR 180 mg, oral, Daily STOP taking these medications aspirin 81 mg enteric coated tablet gabapentin 300 mg capsule Commonly known as: NEURONTIN Where to Get Your Medications These medications were sent to [address] [id number] rivaroxaban 2.5 mg tablet Information about where to get these medications is not yet available Ask your nurse or doctor about these medications acetaminophen 650 mg suppository divalproex 125 mg capsule ergocalciferol 50,000 unit capsule peg [id number]-[id number]-rupusjmz 1-0.2-0.2 % ophthalmic solution Time Spent in Discharge Process: I have spent 40 minutes on discharge planning activities. Time spent was on Coordination of care, Follow up , Counselling with patient/family, discharge exam, and Other provider communication Test Results Pending at Discharge (If Blank, None Found): Operative Procedures Performed (If Blank, None Found): Outpatient Follow-Up: Future Appointments Date Time Provider Department Center 06/06/2024 1:00 PM Lisa Pham NP [facility] 250 Specialty Contact Information for Follow-ups William Craig MD Specialty: Internal Medicine, Family Medicine Relationship: PCP - General [address] [facility] [address] Next Steps: Follow up Lisa Pham NP Specialty: Neurology [address] [place] [address] DR [address] [place] [phone] Next Steps: Follow up on 06/06/2024 Instructions: appointment time: 1:00 pm Braden Fernandez MD Specialty: Vascular Surgery [address] [place] [address] DR ST[address] [place] [address] Next Steps: Schedule an appointment as soon as possible for a visit in 6 month(s) Please schedule an appointment with the following provider(s): William Craig MD [address] [facility] [address] Follow up Lisa Pham NP [address] [place] [address] DR STOVALL [address] [place] [id number] Follow up on 06/06/2024 appointment time: 1:00 pm Braden Fernandez MD [address] [facility] [address] [phone] Schedule an appointment as soon as possible for a visit in 6 month(s) ANCILLARY INFORMATION Other Procedures & Diagnostic Tests: EEG Result Date: 04/21/2024 Arpan Rodgers MD 04/21/2024 1:51 PM Reason for exam: Altered mental status Technical: This is a digitally recorded electroencephalogram. It was just over 23 minutes long. The international 10-20 electrode placement system is used for scalp electrode placement. Eighteen channels of scalp EEG are recorded. One channel was used for EOG. Another channel was used for ECG. The data are stored digitally and reviewed in reformatted montages for optimal display. Background: Background consists primarily of 5-6 hertz theta range activity. This is seen bilaterally. It is not particularly well reactive to eye opening or closure. Intermittently seen periods of attenuation primarily over the right occipital region. Also seen are intermittent left temporal sharp and wave discharges. Description: . No seizure like activity was observed during this recording. Patient entered into periods of drowsiness and light sleep. Hyperventilation was not performed due to patient's clinical condition. Photic stimulation was performed without any additional abnormalities. Impression: Abnormal EEG. Left temporal discharges could suggest underlying epileptogenicity. Intermittent right occipital attenuation suggests focal dysfunction, and consider underlying structural lesion. Generalized slowing tafoya ggests diffuse cerebral dysfunction, as can be seen in encephalopathy due to various etiologies. Noseizure like activity was observed. Correlation with clinical findings is needed. CTA Head Neck W WO Contrast Result Date: 04/20/2024 EXAM DESCRIPTION: CTA HEAD NECK W WO CONTRAST REASON FOR STUDY: Acute altered mental status for 2 days in a patient reportedly being treated for UTI. Provided focal neurologic deficits. No provided history of trauma. 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 No provided surgical history. TECHNIQUE: Axial images were first obtained through the brain without contrast. Axial dynamic scanning technique with dynamic contrast enhancement through the intracranial and extracranial carotid and vertebral arteries. Multiplanar reconstruction. All stenosis measurements are based on NASCET criteria. 3D MIP images rendered on scanning unit and reviewed at time of interpretation. Automated exposure control wasused as a dose optimization technique for this examination. CONTRAST TYPE/DOSE: 100 mL Optiray 350 injected via peripheral IV site without reported incident. COMPARISON: MRI brain without contrast performed earlier same day FINDINGS: BRAIN: No CT evidence of acute intracranial hemorrhage or increased intracranial pressure. Please reference MRI brain performed earlier same day for detailed evaluation of bilateral, ymsyd-tuattnw-elcp-left, acute infarcts superimposed on constellation of chronic findings. 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 Patentleft PACKAGE WINDER, noting variable, to include severe, stenosis along its course. The anterior, middle, posterior cerebral arteries are all patent. No aneurysm. POSTERIOR CIRCULATION: Vertebral arteries as below. Patent basilar artery. No aneurysm. BRAIN: No gross evidence of enhancing intracranial lesions.CAROTID CTA RIGHT CAROTIDS: No occlusion or evidence of dissection of the right carotid arterial system, noting calcific atherosclerosis of the bifurcation/bulb produces approximately 55-60% stenosisof the right ICA. LEFT CAROTIDS: No occlusion, hemodynamically significant stenosis, or evidence of dissection of the left carotid arterial system. LEFT VERTEBRAL: Occlusion of the left vertebral artery at the expected point of takeoff with slight scattered diminutive caliber reconstitution along the V2 to V3 segments prior to further occlusion. RIGHT VERTEBRAL: Patent with calcific atherosclerosis producing at least 50% stenosis of the takeoff of the right vertebral artery with variable stenosis along its course. AORTIC ARCH: Three-vessel aortic arch. Patent subclavian arteries with calcificatherosclerosis producing variable stenosis. NECK SOFT TISSUE: No acute abnormality. No thyroid nodule greater than 1 cm. INCLUDED LUNGS: Biapical pleuroparenchymal scarring. OTHER: No other significant finding. IMPRESSION: No CT evidence of acute intracranial hemorrhage or increased intracranial pressure. Please reference MRI brain performed earlier same day for detailed evaluation of bilateral,gqloo-cysrvvb-kerl-left, acute infarcts superimposed on constellation of chronic findings. Occlusion of the P2 segment of the right PACKAGE WINDER; patent left PACKAGE WINDER with variable, to include severe, stenosis along [...] significant findings were reported by telephone to patient's nurse Cris for ordering provider Arpan Rodgers on 04/20/2024 at 1554 . THIS IS AN ELECTRONICALLY VERIFIED FINAL REPORT 04/20/2024 3:57 PM - Electronically signed by Steven Garcia M.D. NICOLAS T: Report ID: [id number] Reading Location: [id number] MRI Brain WO Contrast Result Date: 04/20/2024 EXAM DESCRIPTION: MRI BRAIN WO CONTRAST REASON FOR STUDY: Hx of recent CVA, pt has increased weakness and decreased mental status. TECHNIQUE: Multiplanar imaging includes non-contrasted T1, T2, FLAIR, and diffusion with ADC map sequences. Additional sequence(s) sensitive to blood products. Images stored on PACS. COMPARISON: Head CT 04/19/2024 FINDINGS: CEREBRUM: No acute intracranial hemorrhage or mass effect. Large acute infarct involving the right occipital and medial temporal lobe extending into the posterior basal ganglia, thalamus, and right splenium. Areas of acute to subacute infarct in the right parietal lobe, left frontal and parietal lobes, and left aspect of the splenium. Chronicleft temporal lobe infarct with patchy diffusion hyperintensity [...] EXTRAAXIAL SPACES: No abnormal extra-axial fluid collection. Normal size ventricles. BRAIN VOLUME: Rfzl-qd-hbnamucq cerebral volume loss. PITUITARY: Unremarkable. VASCULATURE: Skull base flow voids are present. ORBITS: No masses. Globes normal. PARANASAL SINUSES AND MASTOIDS: No significant mucosal thickening or fluid. OTHER: No other significant finding. IMPRESSION: Large acute infarct involving the right posterior cerebral artery territory. No acute intracranial hemorrhage or mass effect. Multifocal mixed ageacute to subacute infarcts in the right parietal lobe, left frontal and parietal lobes, and left aspect of the splenium. Chronic left temporal lobe infarct with patchy diffusion hyperintensity and intermediate ADC signal could represent superimposed acute to subacute infarcts. Moderate sequela of chronic microvascular ischemic disease with chronic infarcts detailed above. These significant findings were reported by telephone to ELLIOT Bloom on 04/20/2024 at 12:35 p.m. THIS IS AN ELECTRONICALLYVERIFIED FINAL REPORT 04/20/2024 12:44 PM - Electronically signed by Angel Kyle M.D. AG T: Report ID: [id number] Reading Location: [id number] XR Chest 1 View Result Date: 04/20/2024 EXAM DESCRIPTION: XR CHEST 1 VIEW REASON FOR STUDY: altered mental status Pt order sts: ams Pt chart sts: HTN; Hyperlipd. Recent stroke and discharged to rehab TECHNIQUE: 1 radiographic view(s) of the chest. COMPARISON: No prior studies are available for comparison at time of this dictation. FINDINGS: LUNGS: No focal opacity, pleural effusion, or pneumothorax. HEART/MEDIASTINUM: Cardiac silhouette normal in size. Mediastinal and hilar contours appear normal. LINES/TUBES: None. BONES: No acute osseous abnormality. IMPRESSION: No acute pulmonary process. THIS IS AN ELECTRONICALLY VERIFIED FINALREPORT 04/20/2024 9:03 AM - Electronically signed by Johan Wilson M.D. MM D: 9:03 AM T: Report ID: [id number] Reading Location: [id number] Recent Labs: Recent Labs Lab Units 04/27/244104/25/2442 04/24/24 0701 WBC K/cumm 10.0* 9.1 8.4 HEMOGLOBIN g/dL 9.4* 9.1* 9.0* HEMATOCRIT % 29.5* 28.7* 28.3* PLATELETS K/cumm 270 259 268 Recent Labs Lab Units 04/27/244104/25/24 0642 04/24/24 0701 WBC K/cumm 10.0* 9.1 8.4 HEMOGLOBIN g/dL 9.4* 9.1* 9.0* HEMATOCRIT % 29.5* 28.7* 28.3* PLATELETS K/cumm 270 259 268 NEUTROS PCT % 62.7 61.4 61.1 LYMPHS PCT % 21.0 21.0 20.8 MONOS PCT % 8.1 7.1 6.8 EOS PCT % 5.6 8.9 9.9 Recent Labs Lab Units 04/28/24 0748 04/27/2433 04/27/244104/25/2473204/25/2464104/24/2472804/24/24700 SODIUM mmol/L -- -- 142 -- 142 -- 143 POTASSIUM PLASMA mmol/L -- -- 3.6 -- 3.6 -- 4.1 CHLORIDE mmol/L -- -- 106 -- 107 -- 109 CO2 mmol/L -- -- 24 -- 24 -- BUN SERUM mg/dL -- -- 15 -- -- 17 CREATININE mg/dL -- -- 0.70 -- 0.71 -- 0.72 [id number] mL/min/1.73 m2 -- -- >90 -- >90 -- >90 GLUCOSE mg/dL -- -- 112 -- 117 -- 106 POC GLUCOSE MONITOR mg/dL 118 < > -- < > -- < > -- CALCIUM mg/dL -- -- 10.0 -- 9.6 -- 9.3 ALBUMIN g/dL -- -- 4.0 -- 3.7 -- 3.7 PHOSPHORUS PLASMA mg/dL -- -- 3.5 -- 3.1 -- 2.9 < > = values in this interval not displayed. Recent Labs Lab Units 04/28/2448 04/27/24201204/27/24 1622 04/27/2473204/27/244104/25/2473204/25/2464104/24/2472804/24/24700 SODIUM mmol/L -- -- -- -- 142 -- 142 -- 143 POTASSIUM PLASMA mmol/L -- -- -- -- 3.6 -- 3.6 -- 4.1 CHLORIDE mmol/L -- -- -- -- 106 -- 107 -- 109 CO2 mmol/L -- -- -- -- - -- 23 ANIONGAP mmol/L -- -- -- -- 12 -- 11 -- 11 GLUCOSE mg/dL -- -- -- -- 112 -- 117 -- 106 POC GLUCOSE MONITOR mg/dL 118 124 114 < > -- < > -- < > -- BUN SERUM mg/dL -- -- -- -- 15 -- 12 -- 17 CREATININE mg/dL -- -- -- -- 0.70 -- 0.71 -- 0.72 CALCIUM mg/dL -- -- -- -- 10.0 -- 9.6 -- 9.3 ALBUMIN g/dL -- -- -- -- 4.0 -- 3.7 -- 3.7 < > = values in this interval not displayed. No lab exists for component: LABALBU Recent Labs Lab Units 04/24/24 0701 MAGNESIUM mg/dL 2.3 Lab Results Component Value Date GLUCOSE 118 04/28/2024 GLUCOSE 124 04/27/2024 GLUCOSE 114 04/27/2024 Implant: Implants Breast Breast - Implanted Breast As of 04/20/2024 Status: Implanted General Precautions (If Blank, None Found): Isolation Status: No active isolations Nutritional Status and in-house recommendations: Dietary Orders (From admission, onward) Start Ordered 04/27/24 1539 Oral Nutrition Supplements (MHB/MHE) Select Supplement: Ensure High Protein - Vanilla, Ensure High Protein - Chocolate, Glucerna - [place]; Quantity (# of cans): 1 can All Meals Comments: Rotate flavors please. Question Answer Comment (MHB/MHE) Select Supplement: Ensure High Protein - Vanilla (MHB/MHE) Select Supplement: Ensure High Protein - Chocolate (MHB/MHE) Select Supplement: Glucerna - [place] Quantity (# of cans): 1 can 04/27/24 1538 04/25/24 1251 Diet message Once (Routine) Comments: Please send another option besides red sauce. Thanks. 04/25/24 1250 04/24/24 1028 Diet message Once (Routine) Comments: I tried to call. But family asking if you see any glasses on patient tray yesterday.ty 04/24/24 1028 04/22/24 1243 Diet message Once (Routine) Comments: Please send tray to room. Pt no longer NPO. 04/22/24 1242 04/22/24 1242 Adult Diet Restricted; Mechanical Soft Diet effective now Question Answer Comment (MHB/MHE) Diet type Restricted Modified Consistency: Mechanical Soft 04/22/24 1242 04/21/24 1132 Diet message Once (Routine) Comments: Please include chocolate ensure with meals. 04/21/24 1132 04/20/24 2100 Bedtime snack At bedtime Comments: If bedtime BG is less than 100mg/dl, give patient a 15 gram carbohydrate snack. 04/20/24 0711 Anticoagulation Indication: INR: No results found for requested labs within last 30 days. Warfarin Administrations (last 168 hours) None Oxygen Status: O2 Therapy for the past 12 hrs: O2 Therapy 04/28/24 0748 None (Room air) 04/28/24 0416 None (Room air) 04/27/24 2345 None (Room air) Wound Care Instructions Other Instructions Call provider for: Temperature -Temperature greater than 101 degrees F Call provider for: difficulty breathing or chest pain Call provider for: hives Call provider for: persistent nausea or vomiting Call provider for: redness, tenderness, or signs of infection (pain, swelling, redness, odor or green/yellow discharge around incision site) Call provider for: severe uncontrolled pain Call provider for: headache, visual disturbances, weakness and speech changes Active LDAs (If Blank, None Found): Peripheral IV 04/22/24 20 G Right Antecubital (Active) Placement Date/Time: 04/22/24 171 Type: Angiocath Length of Catheter: 1 in Size (Gauge): 20 G Location Orientation: Right Location: Antecubital Site Prep: Chlorhexidine Local Anesthetic: None Technique: Anatomical landmarks Verification: Ab... Patient Emergency Contact: Primary Emergency Contact: Oneil Zelaya Immunization Status at Discharge Immunization History Administered Date(s) Administered Pfizer SARS-CoV-2 Monovalent Vaccination (12+ Yrs) PURPLE 09/11/2020, 10/03/2020, 06/03/2021 Pfizer Sars-Cov-2 Bivalent Vaccination (12+ YRS) 04/15/2022 Giancarlo Durant MD documented in this encounter Discharge Instructions * Discharge Instr - Diet* Senia Kong RD - 04/27/2024 3:42 PM CDT IDDSI Level 5, Minced and Moist (Mechanical soft with ground meat diet) A level 5 minced & moist diet is prescribed to patients who are unable to bite foods, have painor difficulty chewing foods, or easily tire when chewing foods. Foods in this diet are served minced, soft, and moist with food pieces no larger than 4 mm wide x 15 mm long. Tips Prepare foods to make them soft, tender and moist. Some foods may be difficult to mince to the appropriate size. If they cannot be finely minced, it is best to puree these foods. Add gravy, sauce, vegetable juice, cooking water, fruit juice, milk, or ppsq-bbv-leat while cookingto make foods moist. Serve foods in thick enough liquids that help hold the food together, coat the food and so the liquid does not run off the food. Thicken liquids to the consistency recommended by your clinician. Strain the liquid or blend it in so the food is one consistency. Some strategies: Drain milk from cereal Drain juice or syrup from canned fruit Create a teri from water and flour to thicken the broth, gravy, or sauce from soups, stews, and casseroles Monitor leftover foods while reheating to make sure they don???t form a tough outer crust that could make the food harder to eat. Call inpatient dietitian office at [facility] in [place] with any nutrition-related questions or concerns ([phone]). Thank you! documented in this encounter Medications at Time of Discharge [...] tablet (180 mg total) by mouth daily documented as of this encounter Ordered Prescriptions Prescription Sig Dispense Quantity Refills Last Filled Start Date End Date docusate sodium (COLACE) 100 mg capsuleIndication s:constipation Take 1 capsule (100 mg total) by mouth daily as needed for constipation 12 capsule 05/03/2024 ergocalciferol (VITAMIN D) 50,000 unit capsule Take 1 capsule (50,000 Units total) by mouth once a week for 7 doses 05/04/2024 acetaminophen (TYLENOL) 650 mg suppositoryIndica tions:Headache Disorder,Pain Insert 1 suppository (650 mg total) into the rectum every 6 (six) hours as needed for headaches or pain 04/28/2024 peg 400-hypromellose- glycerin (ARTIFICAL TEARS) 1-0.2-0.2 % ophthalmic solution Administer 1 drop into both eyes 3 (three) times a day as needed for dry eyes 04/28/2024 divalproex (DEPAKOTE SPRINKLE) 125 mg capsule Take 4 capsules (500 mg total) by mouth 2 (two) times a day 04/28/2024 rivaroxaban (XARELTO) 2.5 mg tabletIndications :deep venous thrombosis Take 6 tablets (15 mg total) by mouth 2 (two) times a day with meals for 17 days, THEN 8 tablets (20 mg total) daily with dinner. 444 tablet 04/28/2024 documented in this encounter Discharge Disposition Disposition Code Departure Means Destination Comment s Discharge to [facility] Amb[facility]EM[facility] documented in this encounter Progress Notes * Hailey Carney MD - 05/03/2024 10:15 AM CDT Images from the original note were not included. General Medicine Daily Progress SUBJECTIVE I have seen and examined the patient today. Patient feels better. OBJECTIVE Vitals: 24hr Min/Max: Temp Min: 36.5 ??C (97.7 ??F) Max: 37.1 ??C (98.8 ??F) Pulse Min: 86 Max: 103 BP Min: 111/66 Max: 149/75 Resp Min: 18 Max: 20 SpO2 Min: 94 % Max: 98 % Most Recent : Vitals: 05/03/24 1007 BP: 136/71 Pulse: Resp: Temp: SpO2: I/O last 2 completed shifts: In: 470 [P.O.:460; I.V.:10] Out: - No intake/output data recorded. Physical Exam: General appearance: Not in acute distress lying in the bed. Lungs CTA Heart: [id number], Abd: +BS, Non Tender, Non distended,Lower Ext: No gross edema, pedal artery pulses are palpable bilaterally Neuro: No new deficits appreciated Musculoskeletal: no gross joint erythema, edema, tenderness Skin: No new change Lab/Current Medication Review: Reviewed Recent Results (from the past 24 hour(s)) POCT glucose Collection Time: 05/02/24 11:54 AM Result Value Ref Range Glucose, POC 142 70 - 199 mg/dL POCT glucose Collection Time: 05/02/24 4:45 PM Result Value Ref Range Glucose, POC 139 70 - 199 mg/dL Glucose comment 1 Use This Result POCT glucose Collection Time: 05/02/24 8:42 PM Result Value Ref Range Glucose, POC 138 70 - 199 mg/dL Glucose comment 1 Use This Result POCT glucose Collection Time: 05/03/24 7:54 AM Result Value Ref Range Glucose, POC 121 70 - 199 mg/dL Glucose comment 1 Use This Result Imaging Current Facility-Administered Medications Medication Dose Route Frequency Provider Last Rate Last Admin acetaminophen (TYLENOL) tablet 650 mg 650 mg oral Q6H PRN Jammie Dickson NP 650 mg at 05/02/24 232 Or acetaminophen (TYLENOL) 32 mg/mL oral liquid 650 mg 650 mg feeding tube Q6H PRN KristenL. Dickson NP Or acetaminophen (TYLENOL) suppository 650 mg 650 mg rectal Q6H PRN Jammie Dickson, CHAPINCITO benzocaine-menthoL (CHLORASEPTIC) lozenge 1 lozenge 1 lozenge mouth/throat Q4H PRN Sosa Andino MD 1 lozenge at 04/25/242017 clopidogreL (PLAVIX) tablet 75 mg 75 mg oral Daily Sosa Andino MD 75 mg at 05/03/24 0829 dextrose (GLUTOSE) 40 % gel 15 g 15 g oral Q15 Min PRN Jammie Dickson NP Or dextrose (D10W) 10% bolus 250 mL 250 mL intravenous Q15 Min PRN Jammie Dickson, CHAPINCITO divalproex (DEPAKOTE SPRINKLE) sprinkle capsule 500 mg 500 mg oral BID Sailaja Bloom PA 500 mg at 05/03/24 0829 docusate sodium (COLACE) capsule 100 mg 100 mg oral Daily PRN Thang Del Valle DO ergocalciferol (VITAMIN D) capsule 50,000 Units 50,000 Units oral Weekly Sosa Andino MD 50,000 Units at 04/27/24 0907 FLUoxetine (PROzac) capsule 20 mg 20 mg oral Daily Sosa Andino MD 20 mg at 05/03/24 0829 glucagon injection 1 mg 1 mg intramuscular Q30 Min PRN Jammie Dickson NP hydrOXYzine (ATARAX) tablet 25 mg 25 mg oral Q6H PRN Sosa Andino MD 25 mg at 05/02/24 2326 insulin lispro (HumaLOG, ADMELOG) 100 unit/mL injection 0-4 Units 0-4 Units subcutaneous Nightly Jammie Dickson NP insulin lispro (HumaLOG, ADMELOG) 100 unit/mL injection 0-5 Units 0-5 Units subcutaneous TID with meals Jammie Dickson NP 1 Units at 04/30/24 1734 leflunomide (ARAVA) tablet 20 mg 20 mg oral Daily Sosa Andino MD 20 mg at 05/03/24 0829 peg [id number] (ARTIFICAL TEARS) 1-0.2-0.2 % ophthalmic solution 1 drop 1 drop each eye TID PRN Sosa Andino MD 1 drop at 04/25/24 0922 rivaroxaban (XARELTO) tablet 15 mg 15 mg oral BID with meals (bkfst, dinner) Sosa Andino MD 15 mg at 05/03/24 0829 Followed by [START ON 05/15/2024] rivaroxaban (XARELTO) tablet 20 mg 20 mg oral Daily with dinner Sosa Andino MD rosuvastatin (CRESTOR) tablet 20 mg 20 mg oral Daily Jammie Dickson NP 20 mg at 05/03/24 0829 sodium chloride 0.9% flush 0.5-20 mL 0.5-20 mL intra-catheter Q8H ROBERTO Jammie Dickson, SURGICAL TERRITORY MANAGER 10mL at 05/02/24 1249 sodium chloride 0.9% flush 0.5-20 mL 0.5-20 mL intra-catheter PRN Jammie Dickson NP tamsulosin (FLOMAX) extended release capsule 0.4 mg 0.4 mg oral Daily with evening meal Giancarlo Durant MD 0.4 mg at 05/02/24 1740 verapamil SR (CALAN SR) extended release tablet 180 mg 180 mg oral Daily Giancarlo Durant MD 180mg at 05/03/24 0829 A/P: Principal Problem: Altered mental status, unspecified altered mental status type Active Problems: HTN (hypertension) Hyperlipidemia Type 2 diabetes mellitus (HCC) UTI (urinary tract infection) CVA (cerebral vascular accident) (HCC) 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 Assessment and plan Acute metabolic encephalopathy - possibly due to UTI, CVA Acute infarct, right posterior cerebral artery - noted on MRI brain Multifocal mixed age acute to subacute infarcts, right parietal lobe, left frontal and parietal lobes, and left aspect of splenium - noted on MRI brain s/p recent CVA with left sided hemiplegia (Apr 07, 2024) Severe atherosclerotic disease, with mobile atheroma, lambls excresence Left common carotid artery stenosis UTI Urine culture grew Enterococcus Complaint is ampicillin. Diabetes mellitus: Hemoglobin A1c 612. Blood sugar is well controlled. Hypertension. This morning blood pressure was slightly elevated. Repeat blood pressure measurement was within normal limit. Continue current medication. Plan to discharge to longterm facility today PT/OT: Case discussed with Case Management and Sand Hauler Medical complexity/risk: Low My total encounter time on 05/03/2024 was 25 minutes which was spent in the activities documented in the note. This includes time spent prior to the visit and after the visit in direct care of the patient. This time does not include time spent in any separately reportable services. Voice recognition software [email or web address] Fluency Direct may have been used dictate and transcribe this document. Project Manager variances may occur. Despite proofreading, typographical errors may occur. Hailey Carney MD 05/03/2024 10:15 AM * Annika Ruggiero COTA - 05/03/2024 9:16 AM CDT Occupational Therapy 05/03/24 0917 General Session Type Treatment OT Received On 05/03/24 Safe Environment Arm band checked;Patient found in supine;Gait belt utilized for all out of bed mobility Subjective Agreeable to Therapy Subjective Comment I am really dizzy Pain Assessment Pain Assessment No/denies pain Static Sitting Balance Static Sitting-Balance Support Bilateral upper extremity supported Static Sitting-Sitting Surface Bed Static Sitting-Level of Assistance Contact guard;Moderate assistance Static Sitting-Comment/# of Minutes Pt fluctuated with assist level with sitting EOB. Pt required more assist when pt c/o increased dizziness. Pt presents with heavy lean to L and required cueing to correct self ADL ADL Comments Pt able to wash her face while sitting EOB with MIN verbal cueing for thoroughness. Bed Mobility 1 Bed Mobility From 1 Supine Bed Mobility Type 1 To and from Bed Mobility to 1 Edge of bed Level of Assistance 1 (DEP x2) Bed Mobility 2 Bed Mobility From 2 Rolling right Bed Mobility Type 2 To and from Bed Mobility to 2 Rolling left Level of Assistance 2 (DEP x2) Cognition Cognition Comments Pt alert to person only Overall Cognitive Status Impaired Arousal/Alertness Delayed responses to stimuli Attention Span Attends with cues to redirect Memory Decreased short term memory;Decreased recall of recent events;Decreased recall of biographical information Current communication Impaired - Global Aphasia Orientation Oriented to person Following Commands Follows one step commands with repetition Safety Judgment Unable to assess Awareness of Errors Unable to assess Insight Not aware of deficits Activity Tolerance Endurance Tolerates 10 - 20 min activity with multiple rests Activity Tolerance Comments Pt c/o increased dizziness the longer pt sat at EOB. Took pts BP while seated EOB and it was 143/109 HR 124, Retook once we layed pt back down 132/92 HR 117. RN notified of this. Safe Environment End of Therapy Session Safe Environment End of Therapy Session Patient left supine in bed;Bed alarm in place and activated;RN notified;Call light within reach;Overbed table within reach;Bed rails up per protocol;Bed in lowest position with wheels locked Assessment Prognosis Guarded Plan Plan Continue with current plan Recommendation/Plan OT Recommendation (S) Custodial Facility Progress during current admission Slow progress, cognitive deficits Time Calculation Start Time 0916 Stop Time 0931 Time Calculation (min) 15 min Educated the patient to the role of occupational therapy, plan of care, goals of therapy, rationalefor progressing mobility and use of call light. Poor understanding. RN notified of session outcome. Patient was left in bed with all needs met and equipment intact. Safety measures include handoff to nurse/tech, bed alarm activated, oriented to call light and placed within reach, personal items within reach, and bed placed in lowest position. Mobility and ADL status posted at bedside and within medical record. Principal Investigator Services Utilized: NO Patient is identified by name and date of on this visit. Cotx with Melissa Dobbins PTA for safety of patient and staff due to current diagnosis, medical status,and current level of functional performance. NANOTECHNICIAN charging for this session. * Melissa Figueroa PTA - 05/03/2024 9:16 AM CDT Physical Therapy 05/03/24 0916 PT Last Visit Session Type Treatment Safe Environment Arm band checked;Patient found in supine;Session completed bedside Subjective Agreeable to Therapy Family/Caregiver Present No Pain Assessment Pain Assessment No/denies pain Cognition Arousal/Alertness Delayed responses to stimuli Orientation Oriented to person Bed Mobility 1 Bed Mobility From 1 Supine Bed Mobility Type 1 To and from Bed Mobility to 1 Edge of bed Level of Assistance 1 Dependent (+2) Bed Mobility Comments 1 Pt sat EOB was cga-mod assist for balance.Pt c/o increased dizziness the longer pt sat at EOB. Took pts BP while seated EOB and it was 143/109 HR 124, Retook once we layed pt back down 132/92 HR 117. RN notified of this. Pt positioned for comfort and alarm on. Bed Mobility 2 Bed Mobility From 2 Rolling right Bed Mobility Type 2 To and from Bed Mobility to 2 Rolling left Level of Assistance 2 Dependent (+2) Safe Environment End of Therapy Session Safe Environment End of Therapy Session Patient left supine in bed;Bed alarm in place and activated;Call light within reach;Overbed table within reach;Bed in lowest position with wheels locked;Bed rails up per protocol Plan Plan Continue with current plan Recommendation/Plan PT Recommendation/Plan (S) Custodial Facility Patient at high risk for Falls;Readmission;Injury due to decreased ability to care for self;Injury due to reduced functional status;Injury at home as patient has not returned to prior level of function Recommend SNF due to Risk of injury at home;Unable to safely care for self in the home;Skilled therapy needed to address care for self in the home;Skilled therapy needed to address functional deficits;Skilled therapy needed for patient to return to prior level of independence Time Calculation Start Time 09 Stop Time 0932 Time Calculation (min) 16 min Cotx with ERWIN Roblero for safety of pt and staff due to current diagnosis, medical status, and unknown level of functional performance. Principal Investigator Services Utilized: NO Educated the patient to the role of physical therapy, plan of care, goals of therapy, rationale forprogressing mobility Patient was left with all needs met and equipment intact. Mobility and ADL status posted at bedsideand within medical record. Multi-Disciplinary Problems (from Physical Therapy) Active Problems Problem: PT [facility] Start Date: 04/20/24 Goal Start Date Expected End Date End Date PT LT - [facility] 1 04/20/24 05/04/24 -- Goal Details: Pt will transfer supine<>sit with min assist x 1 Goal Start Date Expected End Date End Date PT [facility] - [facility] 2 04/20/24 05/04/24 -- Goal Details: Pt will transfer bed<>chair with assistive device as needed with min assist x 1 Goal Start Date Expected End Date End Date PT [facility] 3 04/20/24 05/04/24 -- Goal Details: Pt will sit at edge of bed with supervision for balance, x 5 minutes Goal Start Date Expected End Date End Date PT [facility] 4 04/20/24 05/04/24 -- Goal Details: Pt will ambulate 25 feet with assistive device as needed with min assist x 1 Goal Start Date Expected End Date End Date PT [facility] 5 04/20/24 05/04/24 -- Goal Details: Pt will perform BLE seated therex x 10 reps each with supervision Pt progressing slowly * Lalita Delgado, SANDI - 05/02/2024 1:58 PM CDT Physical Therapy 05/02/24 1358 PT Last Visit Session Type Treatment PT Received On 05/02/24 Safe Environment Arm band checked;Patient found in supine;Gait belt utilized for all out of bed mobility Subjective Agreeable to Therapy Subjective Comment Pt tired Family/Caregiver Present ( came at end of treatment) Precautions Precaution Comments alarm, tele Pain Assessment Pain Assessment No/denies pain Cognition Orientation Oriented to person Seated Seated-Exercise Comments Attempted some LE exercises, but pt has difficulty following commands. Bed Mobility 1 Bed Mobility From 1 Supine Bed Mobility Type 1 To Bed Mobility to 1 Edge of bed Level of Assistance 1 Maximum Assist Bed Mobility Comments 1 maxA x 2 to transfer to EOB. She sat with CGA to modA for balance. L neglect with heavy pushing off of R UE to L side. Bed Mobility 2 Bed Mobility From 2 Edge of bed Bed Mobility Type 2 To Bed Mobility to 2 Supine Level of Assistance 2 Maximum Assist Bed Mobility Comments 2 maxA x 2 Transfer 1 Transfer From 1 Sit Transfer Type 1 To Transfer to 1 Stand Technique 1 Sit to stand;Stand to sit Transfer Device 1 No device;Hand held assist Transfer Level of Assistance 1 Minimum Assist Trials/Comments 1 Anjali x 2 initially but pt becomes a modA x 2 to support as she fatigues quickly. She attempted to take a step, but was unable. Stood a total of three times with rest breaks in between. Safe Environment End of Therapy Session Safe Environment End of Therapy Session Patient left supine in bed;Bed alarm in place and activated;Call light within reach;Overbed table within reach Plan Plan Continue with current plan Recommendation/Plan PT Recommendation/Plan Custodial Facility Patient at high risk for Falls;Readmission;Injury due to decreased ability to care for self;Injury due to reduced functional status;Injury at home as patient has not returned to prior level of function Recommend SNF due to Risk of injury at home;Unable to safely care for self in the home;Skilled therapy needed to address care for self in the home;Skilled therapy needed to address functional deficits;Skilled therapy needed for patient to return to prior level of independence Progress during current admission Progressing toward goals Time Calculation Start Time 1358 Stop Time 1434 Time Calculation (min) 36 min Principal Investigator Services Utilized: NO Educated the patient to the role of physical therapy, plan of care, goals of therapy, rationale forprogressing mobility and home exercise program. Patient was left with all needs met and equipment intact. Mobility and ADL status posted at bedsideand within medical record. Multi-Disciplinary Problems (from Physical Therapy) Active Problems Problem: PT [facility] Start Date: 04/20/24 Goal Start Date Expected End Date End Date PT [facility] - [facility] 1 04/20/24 05/04/24 -- Goal Details: Pt will transfer supine<>sit with min assist x 1 -progressing Goal Start Date Expected End Date End Date PT [facility] - [facility] 2 04/20/24 05/04/24 -- Goal Details: Pt will transfer bed<>chair with assistive device as needed with min assist x 1 -progressing Goal Start Date Expected End Date End Date PT [facility] - [facility] 3 04/20/24 05/04/24 -- Goal Details: Pt will sit at edge of bed with supervision for balance, x 5 minutes Goal Start Date Expected End Date End Date PT [facility] - [facility] 4 04/20/24 05/04/24 -- Goal Details: Pt will ambulate 25 feet with assistive device as needed with min assist x 1 -Not able to ambulate yet Goal Start Date Expected End Date End Date PT [facility] - [facility] 5 04/20/24 05/04/24 -- Goal Details: Pt will perform BLE seated therex x 10 reps each with supervision -progressing Cotreat with Nereida HOOD * Lissette Martinez COTA - 05/02/2024 1:57 PM CDT Occupational Therapy 05/02/24 8427 General Session Type Treatment OT Received On 05/02/24 Safe Environment Arm band checked;Patient found in supine;Gait belt utilized for all out of bed mobility Subjective Agreeable to Therapy Family/Caregiver Present Yes Precautions Precautions Bed/Chair Alarm;Fall risk Precaution Comments tele Pain Assessment Pain Assessment No/denies pain Static Sitting Balance Static Sitting-Balance Support Bilateral upper extremity supported;Feet supported Static Sitting-Sitting Surface Bed Static Sitting-Level of Assistance Contact guard;Moderate assistance Static Sitting-Comment/# of Minutes pt fluctuates between CGA-MOD A x 1, leaning heavily to left with verbal cues can self correct Static Standing Balance Static Standing-Balance Support Bilateral upper extremity supported Static Standing-Standing Surface Floor Static Standing-Level of Assistance Minimum assistance;Moderate assistance Static Standing-Comment/# of Minutes pt initially MIN A x 2 for static stand balance but quickly fatigues and requires MOD A x 2 to maintain standing postiion. ADL ADL Comments Hand over hand for using L hand with R hand to hold cup to drink water. Bed Mobility 1 Bed Mobility From 1 Supine Bed Mobility Type 1 To and from Bed Mobility to 1 Edge of bed Level of Assistance 1 Maximum Assist;Dependent Bed Mobility Comments 1 x2 assist for supine to sit, DeP for sit to supine Transfer 1 Transfer From 1 Sit Transfer Type 1 To Transfer to 1 Stand Technique 1 Sit to stand Transfer Device 1 No device;Hand held assist Transfer Level of Assistance 1 Minimum Assist Trials/Comments 1 x 2 assist with verbal cues to lean forward and push Therapeutic Exercise - ROM/STRENGTH Other Exercise Educated spouse on L UE ROM exercises from digit to shoulders. Verbalized understanding Cognition Overall Cognitive Status Impaired Compliance/Behavior Easy to engage Other Comments Comments Crossed L UE over midline to reduce left lateral lean which worked to correct pt posture briefly. Pt uses R UE to push to the left, rquires verbal cues and at times placement of R hand to reduce left lateral push/lean. Safe Environment End of Therapy Session Safe Environment End of Therapy Session Patient left supine in bed Assessment Prognosis Guarded Problem List Decreased upper extremity strength;Decreased safe judgment during ADL;Decreased cognition;Decreased endurance;Decreased balance;Decreased fine motor control;Decreased functional mobility;Decreased gross motor control;Decreased ADL independence;Decreased IADL independence;Decreased UE fu nction;Non-functional left upper extremity;Decreased trunk control for functional activities;Decreased frequency/variety of movement Plan Plan Continue with current plan Recommendation/Plan OT Recommendation Custodial Facility Patient at high risk for Falls;Readmission;Injury due to decreased ability to care for self;Injury due to reduced functional status;Injury due to impaired cognition;Injury due to balance deficits;Injury at home as patient has not returned to prior level of function;Developing impaired skin integrity;Cognitive decline due to decreased social participation;Prolonged dependence for self care tasks;Developing secondary complications: poor health management Recommend SNF due to Risk of injury at home;Unable to safely care for self in the home;Skilled therapy needed to address care for self in the home;Skilled therapy needed to address functional deficits;Skilled therapy needed for patient to return to prior level of independence OT Frequency during current admission 3-5x/wk Treatment/Interventions during current admission ADL/IADL retraining;Balance Training;Bed mobility;Behavioral organization;Endurance training;Functional activity;Functional mobility training;Functional transfer training;Positioning;Parent/caregiver training and education;Range of motion;Strengthening;Therapeutic activity;Therapeutic exercise;Transfer training Progress during current admission Slow progress, cognitive deficits Time Calculation Start Time 1357 Stop Time 1435 Time Calculation (min) 38 min Reason for interruption co-tx with SANDI Celis for safety Principal Investigator Services Utilized: NO Patient is identified by name and date of on this visit. * Caty Barba, MEMO - 05/02/2024 1:33 PM CDT NUTRITION ASSESSMENT Nutrition Status: Patient at risk for malnutrition, but does not meet AAIM (ASPEN) criteria for malnutrition. REASON FOR ASSESSMENT: Follow Up Encounter Date: 05/02/24 4:42 PM Admission Date: 04/20/2024 LOS: 12 days HPI: This is a 63 yo female with medical hx of recent CVA w/left sided residual hemiparesis (left arm/leg), HTN, and HLD that presented to [facility] ED from rehab center with decline in mental status and lethargy x 1-2 days. Patient only oriented to person; knows name and month/day of ; but couldn't provide year. Able to follow most commands correctly. Doesn't answer all questions appropriately. Repeats yes to questions that require more than yes or no answer. [facility] hospital reported pt oreinted x2 at baseline. Will obtain any additional information needed from medical record. Objective Past Medical History: Diagnosis Date Arthritis Hypertension Hypertension RA (rheumatoid arthritis) (HCC) Stroke (HCC) History reviewed. No pertinent surgical history. Social History Tobacco Use Smoking status: Former Current packs/day: 0.00 Types: Cigarettes Quit date: 2009 Years since quittin.8 Smokeless tobacco: Never Substance and Sexual Activity Drug use: Not Currently Types: Tobacco Sexual activity: None Alcohol Use: Not At Risk (04/20/2024) AUDIT-C Frequency of Alcohol Consumption: Never Average Number of Drinks: Patient does not drink Frequency of Binge Drinking: Never MEDICATION/LAB REVIEW: Scheduled Meds: clopidogreL, 75 mg, oral, Daily divalproex, 500 mg, oral, BID ergocalciferol, 50,000 Units, oral, Weekly FLUoxetine, 20 mg, oral, Daily insulin lispro, 0-4 Units, subcutaneous, Nightly insulin lispro, 0-5 Units, subcutaneous, TID with meals leflunomide, 20 mg, oral, Daily rivaroxaban, 15 mg, oral, BID with meals (bkfst, dinner) Followed by [START ON 05/15/2024] rivaroxaban, 20 mg, oral, Daily with dinner rosuvastatin, 20 mg, oral, Daily sodium chloride 0.9%, 0.5-20 mL, intra-catheter, Q8H ROBERTO tamsulosin, 0.4 mg, oral, Daily with evening meal verapamil SR, 180 mg, oral, Daily Continuous Infusions: PRN Meds: acetaminophen OR acetaminophen OR acetaminophen benzocaine-menthoL dextrose OR dextrose docusate sodium glucagon hydrOXYzine lubricant sodium chloride 0.9% Recent Labs Lab Units 05/01/24 2347 05/01/24 0709 04/30/24 1001 SODIUM mmol/L 141 144 145 POTASSIUM PLASMA mmol/L 4.2 3.8 3.7 CHLORIDE mmol/L 104 107 106 CO2 mmol/L 27 27 28 BUN SERUM mg/dL 25 26* 24 CREATININE mg/dL 0.74 0.72 0.72 [id number] mL/min/1.73 m2 >90 >90 >90 CALCIUM mg/dL 9.7 9.8 9.5 ALBUMIN g/dL 3.8 3.8 4.0 PHOSPHORUS PLASMA mg/dL 3.9 -- -- MAGNESIUM mg/dL -- 2.1 2.3 Recent Labs Lab Units 05/02/24 1154 05/02/24 0808 05/01/24 2347 05/01/24 1956 05/01/24 1633 05/01/24 1119 05/01/24 0709 GLUCOSE mg/dL -- -- 122 -- -- -- 114 POC GLUCOSE MONITOR mg/dL 142 124 -- 147 128 151 122 ALT Date Value Ref Range Status 05/01/2024 9 7 - 45 Units/L Final AST Date Value Ref Range Status 05/01/2024 29 10 - 45 Units/L Final Alk phos Date Value Ref Range Status 05/01/2024 69 40 - 130 Units/L Final Lab Results Component Value Date HGBA1C 6.2 (H) 04/20/2024 HDL 38 (L) 04/20/2024 LDLCALC 48 04/20/2024 CHOL 103 04/20/2024 TRIG 85 04/20/2024 NURSING ASSESSMENT: Last BM Date: 04/28/24 Bowel Sounds (All Quadrants): Present Theron Scale Score: 20 Skin Integrity: Bruising, Excoriation, Blanchable redness Vital Signs BP: 149/75 Temp: 36.8 ??C (98.2 ??F) Pulse: 92 Resp: 18 SpO2: 98 % Intake/Output Summary (Last 24 hours) at 05/02/2024 1642 Last data filed at 05/02/2024 1300 Gross per 24 hour Intake 240 ml Output -- Net 240 ml Adult Malnutrition Scoring Tool (MST) What diet do you follow at home?: unknown Have You Recently Lost Weight Without Trying?: No Have you been eating poorly because of a decreased appetite?: No Malnutrition Screening Tool (MST) Score: 0 Hunger Screen - Admission Within the past 12 months the food we bought just didn't last and we didn't have money to get more.: Unable to assess Within the past 12 months we worried whether our food would run out before we got money to buy more.: Unable to assess Within the past 12 months, you worried that your food would run out before you got the money to buymore.: Never true Within the past 12 months, the food you bought just didn't last and you didn't have money to get more.: Never true Anthropometrics Weight: 57.2 kg (126 lb) Admission Weight : 56.3 kg Weight Change: -0.84 kg (-1.86 lbs) IBW/kg (Calculated) : 54.4 kg Height: 160 cm (5' 3 ) Weight in (lb) to have BMI = 25: 140.8 BMI (Calculated): 21.6 BMI Classification: BMI 18.5 - 24.9 Normal Weight Wt Readings from Last 10 Encounters: 05/01/24 57.2 kg (126 lb) 04/20/24 58 kg (127 lb 13.9 oz) 07/26/13 60.3 kg (133 lb) 12/21/12 63.5 kg (140 lb) 08/24/12 64 kg (141 lb) ESTIMATED NEEDS: Total Energy Needs: 1324.8 kcal Total Energy Needs + Fever Factor: 1324.8 Equation Chosen to Use [place]: [facility] Activity Factor: 1.2 Weight Used for Equation Calculations (RD Determined): 58 kg (127 lb 13.9 oz) . Total Protein Estimated Needs (gm): 67.55 Protein Needs Based on g/k.2 Type of Weight Used for Estimated Protein : Current Total Fluid Estimated Needs: 1407.28 Fluid Needs Based on : 25 ml/kg Type of Weight Used for Estimated Fluid Needs: Current Total Fluid Estimated Needs Comments:: Adult minimum 1500 mL Dietary Orders (From admission, onward) Start Ordered 05/02/24 1639 Adult Diet Restricted; Mechanical Soft; Assist-food/nutrition Diet effective now Comments: Please assist with set up when family is not at bedside. Pt has limited vision Question Answer Comment (MHB/MHE) Diet type Restricted Modified Consistency: Mechanical Soft Meal Participation: Assist-food/nutrition 05/02/24 1639 04/27/24 1539 Oral Nutrition Supplements (B/MHE) Select Supplement: Ensure High Protein - Vanilla, Ensure High Protein - Chocolate, Glucerna - [place]; Quantity (# of cans): 1 can All Meals Comments: Rotate flavors please. Question Answer Comment (MHB/MHE) Select Supplement: Ensure High Protein - Vanilla (MHB/MHE) Select Supplement: Ensure High Protein - Chocolate (MHB/MHE) Select Supplement: Glucerna - [place] Quantity (# of cans): 1 can 04/27/24 1538 04/25/24 1251 Diet message Once (Routine) Comments: Please send another option besides red sauce. Thanks. 04/25/24 1250 04/24/24 1028 Diet message Once (Routine) Comments: I tried to call. But family asking if you see any glasses on patient tray yesterday.ty 04/24/24 1028 04/22/24 1243 Diet message Once (Routine) Comments: Please send tray to room. Pt no longer NPO. 04/22/24 1242 04/21/24 1132 Diet message Once (Routine) Comments: Please include chocolate ensure with meals. 04/21/24 1132 04/20/24 2100 Bedtime snack At bedtime Comments: If bedtime BG is less than 100mg/dl, give patient a 15 gram carbohydrate snack. 04/20/24 0711 Allergies: Reviewed. IMPRESSION: Screened at risk for LOS x7 days. Visited pt at bedside, had some difficulties answering questions.Residing at [facility]. Reports eating well there, 3x daily. Reports having an okay appetite. PO intake ranging from 25-75% of meals during admission. Pt unsure how much she weighs. Unable touse documented weights to determine significant weight change as data not applicable for time frame. NFPE performed with pt consent, no evidence of wasting noted. Ordered Ensure HP TID. Provides 160 kcals and 16 g protein per serving. Provide encouragement and assistance at meal times as needed. Diet order appropriate. Last BM: 04/27 per EMR. Dc pending hospital course. Will continue to monitor. 05/02/2024: Following pt per policy. Pt Ray at bedside and provided most answers. Pt reports good appetite and denies NVD. Ray emphasized that pt would likely eat better with more assistance.Pt consumes most of the supplements but needs assistance. Per EMR, pt consumed 25-75% of documentedmeals since last assessment plus snacks. Current diet remains appropriate. No new weight. New new labs besides BG 142 today. LBM: 05/01. Anticipate SNF at dc. Will continue to monitor. ASPEN MALNUTRITION ASSESSMENT: Date of completion: 04/27/24 ASPEN/AND Malnutrition Screening: Patient does not meet malnutrition criteria NUTRITION FOCUSED PHYSICAL EXAM: Completed, no signs of wasting noted. NUTRITION DIAGNOSIS: Nutrition Diagnosis 1: Inadequate oral intake Related to: Chronic illness/injury, Altered mental status Evidenced by: Patient interview, Reduced functional status, Need for modified consistency diet INTERVENTION(S): Summary: Encouragement, NFPE, Modify supplement, Initial assessment GOAL(S): Diet consistency appropriate for patient needs during stay, Tolerance of medical food supplement bynext assessment, Oral intake to meet 75% estimated nutritional needs by next assessment MONITORING/EVALUATION: Appetite, Discharge plans, Labs, Plan of care, PO intake, I/O, Supplement tolerance, Weight changes Diet Instructions Adult Discharge Diet Diet Type: Return to previous diet IDDSI Level 5, Minced and Moist (Mechanical soft with ground meat diet) A level 5 minced & moist diet is prescribed to patients who are unable to bite foods, have painor difficulty chewing foods, or easily tire when chewing foods. Foods in this diet are served minced, soft, and moist with food pieces no larger than 4 mm wide x 15 mm long. Tips Prepare foods to make them soft, tender and moist. Some foods may be difficult to mince to the appropriate size. If they cannot be finely minced, it is best to puree these foods. Add gravy, sauce, vegetable juice, cooking water, fruit juice, milk, or kzig-fxr-[id number] while cookingto make foods moist. Serve foods in thick enough liquids that help hold the food together, coat the food and so the liquid does not run off the food. Thicken liquids to the consistency recommended by your clinician. Strain the liquid or blend it in so the food is one consistency. Some strategies: Drain milk from cereal Drain juice or syrup from canned fruit Create a teri from water and flour to thicken the broth, gravy, or sauce from soups, stews, and casseroles Monitor leftover foods while reheating to make sure they don???t form a tough outer crust that could make the food harder to eat. Call inpatient dietitian office at [facility] in [place] with any nutrition-related questions or concerns ([phone]). Thank you! Caty Barba RD * Thang Del Valle, - 05/02/2024 7:34 AM CDT General Medicine Daily Progress SUBJECTIVE Patient seen and examined. Chart reviewed. No new complaints. OBJECTIVE Vitals: 24hr Min/Max: Temp Min: 36.6 ??C (97.9 ??F) Max: 36.9 ??C (98.4 ??F) Pulse Min: 86 Max: 97 BP Min: 91/58 Max: 129/85 Resp Min: 17 Max: 20 SpO2 Min: 95 % Max: 97 % Most Recent : Vitals: 05/02/24 0717 BP: 107/69 Pulse: 94 Resp: 18 Temp: 36.8 ??C (98.2 ??F) SpO2: 97% I/O last 2 completed shifts: In: 220 [P.O.:220] Out: - No intake/output data recorded. Physical Exam: General Exam: no acute distress Skin: Dry, Warm. Head: Atraumatic, Normocephalic Ears, Nose, Mouth, Throat: Moist mucous membranes Cardiovascular: Regular rhythm, S1S2 normal Respiratory: CTA bilaterally, Effort normal ABSENT: Crackles, Rhonchi Abdomen: Bowel sounds present, Soft. ABSENT: Mass, Tenderness, Distention Neurological: poor vision, intact in RLQ. Overall decreased motor function in L side, worse in LLE,has resistance in LUE Lab/Current Medication Review: Recent Results (from the past 24 hour(s)) POCT glucose Collection Time: 05/01/24 11:19 AM Result Value Ref Range Glucose, POC 151 70 - 199 mg/dL Glucose comment 1 Use This Result POCT glucose Collection Time: 05/01/24 4:33 PM Result Value Ref Range Glucose, POC 128 70 - 199 mg/dL Glucose comment 1 Use This Result POCT glucose Collection Time: 05/01/24 7:56 PM Result Value Ref Range Glucose, POC 147 70 - 199 mg/dL Glucose comment 1 Use This Result CBC with auto differential Collection Time: 05/01/24 11:47 PM Result Value Ref Range WBC 4.9 3.8 - 9.9 K/cumm Hgb 8.3 (L) 11.9 - 15.5 g/dL Hct 26.6 (L) 35.6 - 45.5 % Plt 232 150 - 400 K/cumm MPV 10.6 9.1 - 12.3 fL RBC 3.05 (L) 3.90 - 5.20 M/cumm MCV 87.2 81.3 - 96.4 fL MCH 27.2 27.1 - 33.3 pg MCHC 31.2 (L) 32.3 - 35.7 g/dL RDW CV 15.1 (H) 11.1 - 14.9 % RDW SD 47.7 35.7 - 48.1 fL NRBC abs 0.00 0.00 - 0.01 K/cumm Renal function panel Collection Time: 05/01/24 11:47 PM Result Value Ref Range Sodium 141 135 - 145 mmol/L Potassium, pl 4.2 3.3 - 4.9 mmol/L Chloride 104 97 - 110 mmol/L CO2 27 22 - 32 mmol/L Anion gap 10 2 - 15 mmol/L BUN 25 6 - 25 mg/dL Creatinine 0.74 0.60 - 1.10 mg/dL Glucose 122 70 - 199 mg/dL Calcium 9.7 8.5 - 10.3 mg/dL Phosphorus, pl 3.9 2.3 - 4.5 mg/dL Albumin 3.8 3.5 - 5.0 g/dL Differential, auto Collection Time: 05/01/24 11:47 PM Result Value Ref Range Neutrophil abs 2.3 1.5 - 6.5 K/cumm Imm gran abs 0.0 0.0 - 0.1 K/cumm Lymphocyte abs 1.4 0.8 - 3.3 K/cumm Monocyte abs 0.7 0.2 - 0.8 K/cumm Eosinophil abs 0.4 0.0 - 0.5 K/cumm Basophil abs 0.1 0.0 - 0.1 K/cumm Neutrophil pct 46.8 % Imm gran pct 0.2 % Lymphocyte pct 29.1 % Monocyte pct 13.6 % Eosinophil pct 8.9 % Basophil pct 1.4 % eGFR Collection Time: 05/01/24 11:47 PM Result Value Ref Range eGFR >90 >=60 mL/min/1.73 m2 CTA Head Neck W WO Contrast Result Date: 04/20/2024 Narrative: EXAM DESCRIPTION: CTA HEAD NECK W WO CONTRAST REASON FOR STUDY: Acute altered mental status for 2 days in a patient reportedly being treated for UTI. Provided focal neurologic deficits. Noprovided history of trauma. 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 No provided surgical history. TECHNIQUE: Axial images were first obtained through the brain without contrast. Axial dynamic scanning technique with dynamic contrast enhancement through the intracranial and extracranial carotid and vertebral arteries. Multiplanar reconstruction. All stenosis measurements are based on NASCET criteria.3D MIP images rendered on scanning unit and reviewed at time of interpretation. Automated exposure control was used as a dose optimization technique for this examination. CONTRAST TYPE/DOSE: 100 mL Optiray 350 injected via peripheral IV site without reported incident. COMPARISON: MRI brain without contrast performed earlier same day FINDINGS: BRAIN: No CT evidence of acute intracranial hemorrhageor increased intracranial pressure. Please reference MRI brain performed earlier same day for detailed evaluation of bilateral, yvdcj-aocvpkp-inxf-left, acute infarcts superimposed on constellation of chronic findings. 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 Patent left PACKAGE WINDER, noting variable, to include severe, stenosis along its course. The anterior, middle, posterior cerebral arteries are all patent. No aneurysm. POSTERIOR CIRCULATION: Vertebral arteries as below. Patent basilar artery. No aneurysm. BRAIN: No gross evidence of [...] VERTEBRAL: Patent with calcific atherosclerosis producing at least 50% stenosis of the takeoff of the right vertebral artery with variable stenosis along its course. AORTIC ARCH: Three-vessel aortic arch. Patent subclavian arteries with calcific atherosclerosis producing variable stenosis. NECK SOFT TISSUE: No acute abnormality. No thyroid nodule greater than 1 cm. INCLUDED LUNGS: Biapical pleuroparenchymal scarring. OTHER: No other significant finding. IMPRESSION: No CT evidence of acute intracranial hemorrhage or increased intracranial pressure. Please reference MRI brain performed earlier same day for detailed evaluation of bilateral, kaidn-qoacgjk-dgdv-left, acute infarcts superimposed on constellation of chronic findings. 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 Occlusion of the left vertebral artery at the expected point of takeoff with slight scattered diminutive caliber reconstitution along the V2 and V3 segments prior to furtherocclusion. Patent right vertebral artery with calcific atherosclerosis producing at least 50% stenosis of the takeoff of the right vertebral artery and variable stenosis along its course. Patent bilateral carotid arterial systems, with calcific atherosclerosis producing approximately 55-60% stenosis of the right ICA, without overt CT angiographic evidence of dissection. These significant findings were reported by telephone to patient's nurse Cris for ordering provider Arpan Rodgers on 04/20/2024 at 1554 . THIS IS AN ELECTRONICALLY VERIFIED FINAL REPORT 04/20/2024 3:57 PM - Electronically signed by Steven VALENZUELA T: Report ID: [id number] Reading Location: [place] [address] MRI Brain WO Contrast Result Date: 04/20/2024 Narrative: EXAM DESCRIPTION: MRI BRAIN WO CONTRAST REASON FOR STUDY: Hx of recent CVA, pt has increased weakness and decreased mental status. TECHNIQUE: Multiplanar imaging includes non-contrasted T1, T2, FLAIR, and diffusion with ADC map sequences. Additional sequence(s) sensitive to blood products. Images stored on PACS. COMPARISON: Head CT [...] EXTRAAXIAL SPACES: No abnormal extra-axial fluid collection. Normal size ventricles. BRAIN VOLUME: Kumf-gk-mflocuat cerebral volume loss. PITUITARY: Unremarkable. VASCULATURE: Skull base flow voids are present. ORBITS: No masses. Globes normal. PARANASAL SINUSES AND MASTOIDS: No significant mucosal thickening or fluid. OTHER: No other significant finding. IMPRESSION: Large [...] findings were reported by telephone to ELLIOT Bloom on 04/20/2024 at 12:35 p.m. THIS IS AN ELECTRONICALLY VERIFIED FINAL REPORT 04/20/2024 12:44 PM - Electronically signed by Angel Kyle M.D. AG T: Report ID: [id number] Reading Location: [id number] Neuro CT Outside Reference Result Date: 04/20/2024 Narrative: This order has been auto-finalized and does not contain a result. XR Chest 1 View Result Date: 04/20/2024 Narrative: EXAM DESCRIPTION: XR CHEST 1 VIEW REASON FOR STUDY: altered mental status Pt order sts: ams Pt chart sts: HTN; Hyperlipd. Recent stroke and discharged to rehab TECHNIQUE: 1 radiographic view(s) of the chest. COMPARISON: No prior studies are available for comparison at time of this dictation. FINDINGS: LUNGS: No focal opacity, pleural effusion, or pneumothorax. HEART/MEDIASTINUM: Cardiac silhouette normal in size. Mediastinal and hilar contours appear normal. LINES/TUBES: None. BONES:No acute osseous abnormality. IMPRESSION: No acute pulmonary process. THIS IS AN ELECTRONICALLY VERIFIED FINAL REPORT 04/20/2024 9:03 AM - Electronically signed by Johan Wilson M.D. MM T: Report ID: [id number] Reading Location: [place] [address] Current Facility-Administered Medications Medication Dose Route Frequency Provider Last Rate Last Admin acetaminophen (TYLENOL) tablet 650 mg 650 mg oral Q6H PRN Jammie Dickson NP 650 mg at 04/28/241953 Or acetaminophen (TYLENOL) 32 mg/mL oral liquid 650 mg 650 mg feeding tube Q6H PRN KristenL. Dickson NP Or acetaminophen (TYLENOL) suppository 650 mg 650 mg rectal Q6H PRN Jammie Dickson NP benzocaine-menthoL (CHLORASEPTIC) lozenge 1 lozenge 1 lozenge mouth/throat Q4H PRN Sosa Andino MD 1 lozenge at 04/25/242017 clopidogreL (PLAVIX) tablet 75 mg 75 mg oral Daily Sosa Andino MD 75 mg at 05/01/24 0822 dextrose (GLUTOSE) 40 % gel 15 g 15 g oral Q15 Min PRN Jammie Dickson NP Or dextrose (D10W) 10% bolus 250 mL 250 mL intravenous Q15 Min PRN Jammie Dickson NP divalproex (DEPAKOTE SPRINKLE) sprinkle capsule 500 mg 500 mg oral BID Sailaja Bloom PA 500 mg at 05/01/242056 ergocalciferol (VITAMIN D) capsule 50,000 Units 50,000 Units oral Weekly Sosa Andino MD 50,000 Units at 04/27/24 0907 FLUoxetine (PROzac) capsule 20 mg 20 mg oral Daily Sosa Andino MD 20 mg at 05/01/24 0822 glucagon injection 1 mg 1 mg intramuscular Q30 Min PRN Jammie Dickson NP hydrOXYzine (ATARAX) tablet 25 mg 25 mg oral Q6H PRN Sosa Andino MD 25 mg at 05/01/24 205 insulin lispro (HumaLOG, ADMELOG) 100 unit/mL injection 0-4 Units 0-4 Units subcutaneous Nightly Jammie Dickson NP insulin lispro (HumaLOG, ADMELOG) 100 unit/mL injection 0-5 Units 0-5 Units subcutaneous TID with meals Jammie Dickson NP 1 Units at 04/30/24 173 leflunomide (ARAVA) tablet 20 mg 20 mg oral Daily Sosa Andino MD 20 mg at 05/01/24 0823 peg [id number]-[id number]-[id number] (ARTIFICAL TEARS) 1-0.2-0.2 % ophthalmic solution 1 drop 1 drop each eye TID PRN Sosa Andino MD 1 drop at 04/25/24 0922 rivaroxaban (XARELTO) tablet 15 mg 15 mg oral BID with meals (bkfst, dinner) Sosa Andino MD 15 mg at 05/01/24 1732 Followed by [START ON 05/15/2024] rivaroxaban (XARELTO) tablet 20 mg 20 mg oral Daily with dinner Sosa Andino MD rosuvastatin (CRESTOR) tablet 20 mg 20 mg oral Daily Jammie Dickson NP 20 mg at 05/01/24 0823 sodium chloride 0.9% flush 0.5-20 mL 0.5-20 mL intra-catheter Q8H ROBERTO Jammie Dickson, SURGICAL TERRITORY MANAGER 10mL at 05/01/24 1430 sodium chloride 0.9% flush 0.5-20 mL 0.5-20 mL intra-catheter PRN Jammie Dickson NP tamsulosin (FLOMAX) extended release capsule 0.4 mg 0.4 mg oral Daily with evening meal Giancarlo Durant MD 0.4 mg at 05/01/24 1734 verapamil SR (CALAN SR) extended release tablet 180 mg 180 mg oral Daily Giancarlo Durant MD 180mg at 05/01/24 0822 63 y/o F female with PMH of recent CVA w/left sided residual hemiparesis (left arm/leg), HTN, HLD who initially presented to [facility] ED from rehab center with decline in mental status, lethargy x 1-2 days. Patient only oriented to person; knows name and month/day of ; but couldn't provide year. Ableto follow most commands correctly. Doesn't answer all questions appropriately. Repeats yes to questions that require more than yes or no answer. [facility] hospital reported pt oreinted x2 at baseline. Per ED record, she was sent from [facility] for mental status decline over last 2 days. Pt at rehab center for physical therapy post recent stroke that left patient with left-sided residual hemiparesis. Was noted that pt was also being treated for UTI with Cefdinir, with no improvement in symptoms. Had fernandez in place. ED work-up noted: BP: 125/77. HR 83 RR 16 T 98.3 98% on RA; WBC normal 7.1, Hb10 (stable from previous); Cr: 0.9; Repeat UA: 3+ leuk >100 WBC; BCX drawn, given rocephin. ED also noted CT brain shows worsening of recent stroke. Subacute infarct involving R internal capsule,and R temporal occipital region, worsened from 04/07/2024. Also, shows old infarcts and chronic small vessel . Disc sent from OSH. No NIH charted from [facility]. [facility] did not have neuro telephoner. Dr. Rodgers Neuro agreeable to consult. Upon arrival, she was oriented to person only; follows most commands correctly; doesn't answer all questions appropriately. C/o pain and cramping to right lower extremity; pt moves the right side w/o difficulty.Has very little movement with left arm or left leg. Unknown when last known normal; noted decline over 2 days. Difficult to score/NIH 16; due to pt not followingall commands. Easily distracted due to discomfort in right leg. No other verbalized complaints. Urine cloudy aissatou desai colored. Fernandez cath in place draining freely to gravity bag. 04/22 Vss EEG w L temporal discharge SHIVAM w significant atherosclerotic dz descending aorta Brother in room 04/23 Vss SHIVAM w significant amt of atherosclerotic dz, mobile atheroma in descending aorta and arch, labml's excresence in aortic valve cusps CTA CAP recommended/ordered.resulted-infrarenal abdom aortic aneurysm 3cm, severe stenosis of SMA, R renal artery, L common carotid origin, Data Analytics Architect and CTS consulted. Recommend anticoagulation when ok from neuro, CTS to see Pt needs repeated encouragement for eating/drinking, does better with family nearby. Lots of anxiety, even w family here Urine from OSH w enterococcus, rocephin switched to ampicillin Requested further records for blood cx and Urine cx w sensitivty if available Questionable Urinary retention resoled prior to straight cath last night Pt in room w , calm No abdom pain w eating 04/24 vss Seen by CTS- not indication for surgery, recommended vascular evaluation Cards now recommending considering AC Carotid Us pending In room w , calm, pleasant 04/25 CTH repeatde no hemorrhagic conversion Started on xarelto Vascular consult for carotid disease In room by herself, calm 04/26 Vascular consult Pt eating dinner with PCT 04/27/2024 bowel movement yesterday Does not seem to be in pain. Her blood pressure and heart rate increased 04/29/2024 awake and talkative. Continues to have left-sided weakness with left-sided neglect VSS Tolerating diet Discharge pending placement in longterm facility Assessment/Plan Acute metabolic encephalopathy - possibly due to UTI, CVA Acute infarct, right posterior cerebral artery - noted on MRI brain Multifocal mixed age acute to subacute infarcts, right parietal lobe, left frontal and parietal lobes, and left aspect of splenium - noted on MRI brain s/p recent CVA with left sided hemiplegia (Apr 07, 2024) Severe atherosclerotic disease, with mobile atheroma, lambls excresence Left common carotid artery stenosis -Transferred from OSH for AMS -CXR (04/20): negative -MRI brain (04/20): -Large acute infarct involving right posterior cerebral artery territory -No acute intracranial hemorrhage or mass effect -Multifocal mixed age acute to subacute infarcts, right parietal lobe, left frontal and parietal lobes, and left aspect of splenium -Chronic left temporal lobe infarct, with patchy diffusion hyperintensity and intermediate ADC signal - could represent superimposed acute to subacute infarcts -Moderate sequela of chronic microvascular ischemic disease with chronic infarcts -CTA Head/Neck (04/20): -No CT evidence of acute intracranial hemorrhage or increased intracranial pressure -Occlusion of P2 segment of right PACKAGE WINDER -patent left PACKAGE WINDER with variable, to include severe, stenosis along its course -Occlusion of left vertebral artery at expected point of takeoff with slight scattered diminutive caliber reconstitution along V2 and V3 segments prior to further occlusion -right vertebral artery with calcific atherosclerosis producing at least 50% stenosis of takeoff ofright vertebral artery and variable stenosis along its course -Patent bilateral carotid arterial systems, with calcific atherosclerosis producing approximately 55-60% stenosis of right ICA -CTA C/A/P (04/22): -No acute aortic abnormality of chest, abdomen or pelvis. 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 -Diffuse atherosclerotic irregularities through thoracic and abdominal aorta and iliac vessels withregions of moderate to severe stenosis -Carotid Duplex (04/24): -50-69% stenosis bilateral internal carotid arteries -Antegrade flow noted on right vertebral artery with bidirectional flow on left - suggests left subclavian arterial stenosis -Echo (04/22): -Very subtle mobile entities on aortic valve cusps, consistent with Lambl's excrescence -THIEN with normal Doppler emptying velocities and no visible thrombus in multiple views mild TR, trace AZ, slight restriction of mitral valve anterior leaflet, with mild anterior mitral valve prolapse with associated mild-moderate MR and borderline mild mitral stenosis -bubble study negative for interatrial shunting -severe aortic atherosclerosis in descending aorta and arch, without highly mobile atheroma -Plavix/Xarelto/statin -Plavix 75mg daily -Xarelto 15mg BID x 21 days; then Xarleto 20mg daily -Crestor 20mg qpm -Depakote for seizure ppx -Serial neurochecks -Fall precautions -Monitor on telemetry -PT/OT - SNF recommended -Cardiology on board. Appreciate recs -Recommend cardiothoracic surgeon consultation -patient plans to have loop recorder placed in the future due to multiple embolic strokes in the past -consider outpatient cardiac MRI after discharge -Check Carotid Doppler -consider Vascular Consultation with her extensive stroke occurrence and risk -Neurology on board. Appreciate recs -CTH repeated and negative for hemorrhage -ok to start Xarelto/Plavix -Must remember, Depakote will reduce efficacy of Xarelto, but Depakote (started for abnormal EEG with noted changes in behavior with slow return to normal suspected to be post ictal state) does seem to be helping her behavior (panic and crying spells), therefore will continue -Could consider Lamictal, however, this would take her 6-8 weeks to be therapeutic; Keppra may worsen her panic/crying; Vimpat would not help her behavior -No further neuro recs -needs to followup in office in 6 weeks -CTS consulted. 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 -Vascular consulted. Appreciate recs - recommended outpt f/up in 6 months -Bilateral carotid stenosis unlikely to be source of her stroke, as her stroke was in posterior circulation -recommend continuing Xarelto/Plavix/Statin therapy and good blood pressure control -Can followup as an outpatient for ongoing surveillance of her carotid disease in 6 months UTI -Rehab urine culture initially showed enterococcus -s/p rocephin --> ampicillin -requested sensitivities from rehab -Final cx with dallin; no enterococcus -s/p ampicillin -s/p fluconazole -Monitor Is/Os Carotid artery stenosis -Plavix/Statin -Vascular Surgery on board. Appreciate recs Abnormal EEG with possible seizure -Depakote -Neurology on board. Appreciate recs DM2 - A1C 6.2 (04/20/24) -ISS, accuchecks HTN -Verapamil 180mg daily -monitor Hx of RA -on arava 20mg daily Vitamin D deficiency -Continue vitamin D supplementation 04/30: Afebrile. No leukocytosis. On room air. Continue plavix/xarelto/statin. Continue PT efforts.F/U CM SNF placement. Appreciate cardiology, neurology, CTS, vascular surgery help and recs. Medically stable for discharge. DC planning pending SNF placement. 05/01: Afebrile. On room air. Continue plavix/xarelto/statin. Continue PT efforts. F/U CM SNF placement. Medically stable for discharge. DC planning pending SNF placement. 05/02: Afebrile. No leukocytosis. On room air. Continue plavix/xarelto/statin. Continue PT efforts.F/U CM SNF placement. Medically stable for discharge. DC planning pending SNF placement. Thang Del Valle DO 05/02/2024 7:34 AM * Kathy Montelongo, NANOTECHNICIAN - 05/01/2024 8:50 AM CDT Physical Therapy 05/01/24 0850 PT Last Visit Session Type Treatment PT Received On 05/01/24 Safe Environment Arm band checked;Patient found in supine Subjective Agreeable to Therapy Family/Caregiver Present No Precautions Precautions Bed/Chair Alarm Activity Tolerance Endurance Tolerates 10 - 20 min activity with multiple rests Pain Assessment Pain Assessment 0-10 Dickinson-Reyna FACES Pain Rating 4 Pain 2 Pain Score 2 4 Pain Type 2 Chronic pain Pain Location 2 Back (Lumbar) Pain Orientation 2 Lower Clinical Progression 2 Not changed Bed Mobility 1 Bed Mobility From 1 Supine Bed Mobility Type 1 To Bed Mobility to 1 Edge of bed Bed Mobility 2 Bed Mobility From 2 Supine Bed Mobility Type 2 To Bed Mobility to 2 Edge of Bed Level of Assistance 2 Dependent Transfer 1 Transfer From 1 Sit Transfer Type 1 To and from Transfer to 1 Stand Technique 1 Sit to stand;Stand to sit Transfer Device 1 No device Trials/Comments 1 arm assist +2 with transfer Ambulation 1 Distance (ft) 1 2 Surface 1 Level tile Device 1 Hand held assist Assistance 1 Minimum Assist Gait Deviations 1 Base of support - decreased Quality of Gait 1 fair Ambulation Comments 1 patient takes a few steps from bed to chair with verbal cues for directions Safe Environment End of Therapy Session Safe Environment End of Therapy Session Patient left in recliner;Chair alarm in place and activated;Call light within reach;Overbed table within reach Plan Plan Continue with current plan Recommendation/Plan PT Recommendation/Plan Custodial Facility Patient at high risk for Falls;Readmission;Injury due to decreased ability to care for self Recommend Inpatient Rehab/Acute Rehab due to Ability to actively participate in intensive therapy 3hours/day, 5 days/week or 900 minutes per week;Not at baseline due to impaired ability to complete ADLs;Impaired ability to complete functional mobility;Requires greater than 25% physical assistance with most mobility tasks;Requires greater than 25% physical assistance with most ADL tasks Time Calculation Start Time 0850 Stop Time 0900 Time Calculation (min) 10 min Multi-Disciplinary Problems (from Physical Therapy) Active Problems Problem: PT Misc Start Date: 04/20/24 Goal Start Date Expected End Date End Date PT LTG - Mis 1 04/20/24 05/04/24 -- Goal Details: Pt will transfer supine<>sit with min assist x 1 Goal Start Date Expected End Date End Date PT LTG - Mis 2 04/20/24 05/04/24 -- Goal Details: Pt will transfer bed<>chair with assistive device as needed with min assist x 1 Goal Start Date Expected End Date End Date PT LTG - Mis 3 04/20/24 05/04/24 -- Goal Details: Pt will sit at edge of bed with supervision for balance, x 5 minutes Goal Start Date Expected End Date End Date PT LTG - [facility] 4 04/20/24 05/04/24 -- Goal Details: Pt will ambulate 25 feet with assistive device as needed with min assist x 1 Goal Start Date Expected End Date End Date PT LTG - [facility] 5 04/20/24 05/04/24 -- Goal Details: Pt will perform BLE seated therex x 10 reps each with supervision Principal Investigator Services Utilized: no Educated the patient to the role of physical therapy, plan of care, goals of therapy, rationale forprogressing mobility . Patient was left with all needs met and equipment intact. Mobility and ADL status posted at bedsideand within medical record. * Thang Del Valle DO - 05/01/2024 7:50 AM CDT General Medicine Daily Progress SUBJECTIVE Patient seen and examined. Chart reviewed. No new complaints. OBJECTIVE Vitals: 24hr Min/Max: Temp Min: 36.4 ??C (97.5 ??F) Max: 36.8 ??C (98.2 ??F) Pulse Min: 78 Max: 101 BP Min: 119/69 Max: 137/78 Resp Min: 18 Max: 20 SpO2 Min: 95 % Max: 100 % Most Recent : Vitals: 05/01/24 0712 BP: 133/77 Pulse: 93 Resp: 18 Temp: 36.5 ??C (97.7 ??F) SpO2: 97% I/O last 2 completed shifts: In: 480 [P.O.:480] Out: - No intake/output data recorded. Physical Exam: General Exam: no acute distress Skin: Dry, Warm. Head: Atraumatic, Normocephalic Ears, Nose, Mouth, Throat: Moist mucous membranes Cardiovascular: Regular rhythm, S1S2 normal Respiratory: CTA bilaterally, Effort normal ABSENT: Crackles, Rhonchi Abdomen: Bowel sounds present, Soft. ABSENT: Mass, Tenderness, Distention Neurological: poor vision, intact in RLQ. Overall decreased motor function in L side, worse in LLE,has resistance in LUE Lab/Current Medication Review: Recent Results (from the past 24 hour(s)) POCT glucose Collection Time: 04/30/24 8:19 AM Result Value Ref Range Glucose, POC 127 70 - 199 mg/dL CBC with auto differential Collection Time: 04/30/24 10:01 AM Result Value Ref Range WBC 5.7 3.8 - 9.9 K/cumm Hgb 9.1 (L) 11.9 - 15.5 g/dL Hct 28.5 (L) 35.6 - 45.5 % Plt 233 150 - 400 K/cumm MPV 10.7 9.1 - 12.3 fL RBC 3.27 (L) 3.90 - 5.20 M/cumm MCV 87.2 81.3 - 96.4 fL MCH 27.8 27.1 - 33.3 pg MCHC 31.9 (L) 32.3 - 35.7 g/dL RDW CV 15.0 (H) 11.1 - 14.9 % RDW SD 47.3 35.7 - 48.1 fL NRBC abs 0.00 0.00 - 0.01 K/cumm Comprehensive metabolic panel Collection Time: 04/30/24 10:01 AM Result Value Ref Range Sodium 145 135 - 145 mmol/L Potassium, pl 3.7 3.3 - 4.9 mmol/L Chloride 106 97 - 110 mmol/L CO2 28 22 - 32 mmol/L Anion gap 11 2 - 15 mmol/L BUN 24 6 - 25 mg/dL Creatinine 0.72 0.60 - 1.10 mg/dL Glucose 112 70 - 199 mg/dL Calcium 9.5 8.5 - 10.3 mg/dL Bilirubin, total 0.3 0.1 - 1.2 mg/dL Protein, pl 6.6 6.5 - 8.5 g/dL Albumin 4.0 3.5 - 5.0 g/dL Alk phos 70 40 - 130 Units/L ALT 10 7 - 45 Units/L AST 25 10 - 45 Units/L Magnesium Collection Time: 04/30/24 10:01 AM Result Value Ref Range Magnesium 2.3 1.4 - 2.5 mg/dL Differential, auto Collection Time: 04/30/24 10:01 AM Result Value Ref Range Neutrophil abs 2.8 1.5 - 6.5 K/cumm Imm gran abs 0.0 0.0 - 0.1 K/cumm Lymphocyte abs 1.6 0.8 - 3.3 K/cumm Monocyte abs 0.7 0.2 - 0.8 K/cumm Eosinophil abs 0.6 (H) 0.0 - 0.5 K/cumm Basophil abs 0.1 0.0 - 0.1 K/cumm Neutrophil pct 48.9 % Imm gran pct 0.2 % Lymphocyte pct 27.7 % Monocyte pct 11.4 % Eosinophil pct 10.2 % Basophil pct 1.6 % eGFR Collection Time: 04/30/24 10:01 AM Result Value Ref Range eGFR >90 >=60 mL/min/1.73 m2 POCT glucose Collection Time: 04/30/24 11:50 AM Result Value Ref Range Glucose, POC 123 70 - 199 mg/dL Glucose comment 1 Use This Result POCT glucose Collection Time: 04/30/24 4:42 PM Result Value Ref Range Glucose, POC 157 70 - 199 mg/dL Glucose comment 1 Use This Result Glucose comment 2 RN/MD Notified POCT glucose Collection Time: 04/30/24 8:32 PM Result Value Ref Range Glucose, POC 117 70 - 199 mg/dL Glucose comment 1 Use This Result POCT glucose Collection Time: 05/01/24 7:09 AM Result Value Ref Range Glucose, POC 122 70 - 199 mg/dL Glucose comment 1 Use This Result CTA Head Neck W WO Contrast Result Date: 04/20/2024 Narrative: EXAM DESCRIPTION: CTA HEAD NECK W WO CONTRAST REASON FOR STUDY: Acute altered mental status for 2 days in a patient reportedly being treated for UTI. Provided focal neurologic deficits. Noprovided history of trauma. 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 No provided surgical history. TECHNIQUE: Axial images were first obtained through the brain without contrast. Axial dynamic scanning technique with dynamic contrast enhancement through the intracranial and extracranial carotid and vertebral arteries. Multiplanar reconstruction. All stenosis measurements are based on NASCET criteria.3D MIP images rendered on scanning unit and reviewed at time of interpretation. Automated exposure control was used as a dose optimization technique for this examination. CONTRAST TYPE/DOSE: 100 mL Optiray 350 injected via peripheral IV site without reported incident. COMPARISON: MRI brain without contrast performed earlier same day FINDINGS: BRAIN: No CT evidence of acute intracranial hemorrhageor increased intracranial pressure. Please reference MRI brain performed earlier same day for detailed evaluation of bilateral, wyzpu-xqxirme-[id number]-left, acute infarcts superimposed on constellation of chronic findings. 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 Patent left PACKAGE WINDER, noting variable, to include severe, stenosis along its course. The anterior, middle, posterior cerebral arteries are all patent. No aneurysm. POSTERIOR CIRCULATION: Vertebral arteries as below. Patent basilar artery. No aneurysm. BRAIN: No gross evidence of [...] VERTEBRAL: Patent with calcific atherosclerosis producing at least 50% stenosis of the takeoff of the right vertebral artery with variable stenosis along its course. AORTIC ARCH: Three-vessel aortic arch. Patent subclavian arteries with calcific atherosclerosis producing variable stenosis. NECK SOFT TISSUE: No acute abnormality. No thyroid nodule greater than 1 cm. INCLUDED LUNGS: Biapical pleuroparenchymal scarring. OTHER: No other significant finding. IMPRESSION: No CT evidence of acute intracranial hemorrhage or increased intracranial pressure. Please reference MRI brain performed earlier same day for detailed evaluation of bilateral, keiww-bixempj-iguw-left, acute infarcts superimposed on constellation of chronic findings. 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 Occlusion of the left vertebral artery at the expected point of takeoff with slight scattered diminutive caliber reconstitution along the V2 and V3 segments prior to furtherocclusion. Patent right vertebral artery with calcific atherosclerosis producing at least 50% stenosis of the takeoff of the right vertebral artery and variable stenosis along its course. Patent bilateral carotid arterial systems, with calcific atherosclerosis producing approximately 55-60% stenosis of the right ICA, without overt CT angiographic evidence of dissection. These significant findings were reported by telephone to patient's nurse Cris for ordering provider Arpan Rodgers on 04/20/2024 at 1554 . THIS IS AN ELECTRONICALLY VERIFIED FINAL REPORT 04/20/2024 3:57 PM - Electronically signed by Steven VALENZUELA T: Report ID: [id number] Reading Location: [id number] MRI Brain WO Contrast Result Date: 04/20/2024 Narrative: EXAM DESCRIPTION: MRI BRAIN WO CONTRAST REASON FOR STUDY: Hx of recent CVA, pt has increased weakness and decreased mental status. TECHNIQUE: Multiplanar imaging includes non-contrasted T1, T2, FLAIR, and diffusion with ADC map sequences. Additional sequence(s) sensitive to blood products. Images stored on PACS. COMPARISON: Head CT [...] EXTRAAXIAL SPACES: No abnormal extra-axial fluid collection. Normal size ventricles. BRAIN VOLUME: Noyf-tm-dvmusvra cerebral volume loss. PITUITARY: Unremarkable. VASCULATURE: Skull base flow voids are present. ORBITS: No masses. Globes normal. PARANASAL SINUSES AND MASTOIDS: No significant mucosal thickening or fluid. OTHER: No other significant finding. IMPRESSION: Large [...] findings were reported by telephone to ELLIOT Bloom on 04/20/2024 at 12:35 p.m. THIS IS AN ELECTRONICALLY VERIFIED FINAL REPORT 04/20/2024 12:44 PM - Electronically signed by Angel Kyle M.D. AG T: Report ID: [id number] Reading Location: [id number] Neuro CT Outside Reference Result Date: 04/20/2024 Narrative: This order has been auto-finalized and does not contain a result. XR Chest 1 View Result Date: 04/20/2024 Narrative: EXAM DESCRIPTION: XR CHEST 1 VIEW REASON FOR STUDY: altered mental status Pt order sts: ams Pt chart sts: HTN; Hyperlipd. Recent stroke and discharged to rehab TECHNIQUE: 1 radiographic view(s) of the chest. COMPARISON: No prior studies are available for comparison at time of this dictation. FINDINGS: LUNGS: No focal opacity, pleural effusion, or pneumothorax. HEART/MEDIASTINUM: Cardiac silhouette normal in size. Mediastinal and hilar contours appear normal. LINES/TUBES: None. BONES:No acute osseous abnormality. IMPRESSION: No acute pulmonary process. THIS IS AN ELECTRONICALLY VERIFIED FINAL REPORT 04/20/2024 9:03 AM - Electronically signed by Johan Wilson M.D. MM T: Report ID: [id number] Reading Location: [id number] Current Facility-Administered Medications Medication Dose Route Frequency Provider Last Rate Last Admin acetaminophen (TYLENOL) tablet 650 mg 650 mg oral Q6H PRN Jammie Dickson NP 650 mg at 04/28/24 1954 Or acetaminophen (TYLENOL) 32 mg/mL oral liquid 650 mg 650 mg feeding tube Q6H PRN KristenL. Dickson NP Or acetaminophen (TYLENOL) suppository 650 mg 650 mg rectal Q6H PRN Jammie Dickson, [place] benzocaine-menthoL (CHLORASEPTIC) lozenge 1 lozenge 1 lozenge mouth/throat Q4H PRN Sosa Andino MD 1 lozenge at 04/25/242017 clopidogreL (PLAVIX) tablet 75 mg 75 mg oral Daily Sosa Andino MD 75 mg at 04/30/24 1253 dextrose (GLUTOSE) 40 % gel 15 g 15 g oral Q15 Min PRN Jammie Dickson NP Or dextrose (D10W) 10% bolus 250 mL 250 mL intravenous Q15 Min PRN Jammie Dickson NP divalproex (DEPAKOTE SPRINKLE) sprinkle capsule 500 mg 500 mg oral BID Sailaja Bloom PA 500 mg at 04/30/242050 ergocalciferol (VITAMIN D) capsule 50,000 Units 50,000 Units oral Weekly Sosa Andino MD 50,000 Units at 04/27/24 0907 FLUoxetine (PROzac) capsule 20 mg 20 mg oral Daily Sosa Andino MD 20 mg at 04/30/24 1253 glucagon injection 1 mg 1 mg intramuscular Q30 Min PRN Jammie Dickson NP hydrOXYzine (ATARAX) tablet 25 mg 25 mg oral Q6H PRN Sosa Andino MD 25 mg at 04/30/242050 insulin lispro (HumaLOG, ADMELOG) 100 unit/mL injection 0-4 Units 0-4 Units subcutaneous Nightly Jammie Dickson NP insulin lispro (HumaLOG, ADMELOG) 100 unit/mL injection 0-5 Units 0-5 Units subcutaneous TID with meals Jammie Dickson NP 1 Units at 04/30/24 173 leflunomide (ARAVA) tablet 20 mg 20 mg oral Daily Sosa Andino MD 20 mg at 04/30/24 1253 peg 452-lsrbypmlrlnj-plvkytit (ARTIFICAL TEARS) 1-0.2-0.2 % ophthalmic solution 1 drop 1 drop each eye TID PRN Sosa Andino MD 1 drop at 04/25/24 0922 rivaroxaban (XARELTO) tablet 15 mg 15 mg oral BID with meals (bkfst, dinner) Sosa Andino MD 15 mg at 04/30/24 1735 Followed by [START ON 05/15/2024] rivaroxaban (XARELTO) tablet 20 mg 20 mg oral Daily with dinner Sosa Andino MD rosuvastatin (CRESTOR) tablet 20 mg 20 mg oral Daily Jammie Dickson, SURGICAL TERRITORY MANAGER 20 mg at 04/30/24 1253 sodium chloride 0.9% flush 0.5-20 mL 0.5-20 mL intra-catheter Q8H ROBERTO Jammie Dickson, SURGICAL TERRITORY MANAGER 10mL at 04/30/24 1301 sodium chloride 0.9% flush 0.5-20 mL 0.5-20 mL intra-catheter PRN Jammie Dickson, SURGICAL TERRITORY MANAGER tamsulosin (FLOMAX) extended release capsule 0.4 mg 0.4 mg oral Daily with evening meal Giancarlo Durant MD 0.4 mg at 04/30/24 1735 verapamil SR (CALAN SR) extended release tablet 180 mg 180 mg oral Daily Giancarlo Durant MD 180mg at 04/30/24 1253 63 y/o F female with PMH of recent CVA w/left sided residual hemiparesis (left arm/leg), HTN, HLD who initially presented to [facility] ED from rehab center with decline in mental status, lethargy x 1-2 days. Patient only oriented to person; knows name and month/day of ; but couldn't provide year. Ableto follow most commands correctly. Doesn't answer all questions appropriately. Repeats yes to questions that require more than yes or no answer. [facility] hospital reported pt oreinted x2 at baseline. Per ED record, she was sent from [facility] for mental status decline over last 2 days. Pt at rehab center for physical therapy post recent stroke that left patient with left-sided residual hemiparesis. Was noted that pt was also being treated for UTI with Cefdinir, with no improvement in symptoms. Had fernandez in place. ED work-up noted: BP: 125/77. HR 83 RR 16 T 98.3 98% on RA; WBC normal 7.1, Hb10 (stable from previous); Cr: 0.9; Repeat UA: 3+ leuk >100 WBC; BCX drawn, given rocephin. ED also noted CT brain shows worsening of recent stroke. Subacute infarct involving R internal capsule,and R temporal occipital region, worsened from 04/07/2024. Also, shows old infarcts and chronic small vessel . Disc sent from OSH. No NIH charted from OSH. OSH did not have neuro telephoner. Dr. Rodgers Neuro agreeable to consult. Upon arrival, she was oriented to person only; follows most commands correctly; doesn't answer all questions appropriately. C/o pain and cramping to right lower extremity; pt moves the right side w/o difficulty.Has very little movement with left arm or left leg. Unknown when last known normal; noted decline over 2 days. Difficult to score/NIH 16; due to pt not followingall commands. Easily distracted due to discomfort in right leg. No other verbalized complaints. Urine cloudy aissatou desai colored. Fernandez cath in place draining freely to gravity bag. 04/22 Vss EEG w L temporal discharge SHIVAM w significant atherosclerotic dz descending aorta Brother in room 04/23 Vss SHIVAM w significant amt of atherosclerotic dz, mobile atheroma in descending aorta and arch, labml's excresence in aortic valve cusps CTA CAP recommended/ordered.resulted-infrarenal abdom aortic aneurysm 3cm, severe stenosis of SMA, R renal artery, L common carotid origin, Data Analytics Architect and CTS consulted. Recommend anticoagulation when ok from neuro, CTS to see Pt needs repeated encouragement for eating/drinking, does better with family nearby. Lots of anxiety, even w family here Urine from OSH w enterococcus, rocephin switched to ampicillin Requested further records for blood cx and Urine cx w sensitivty if available Questionable Urinary retention resoled prior to straight cath last night Pt in room w , calm No abdom pain w eating 04/24 vss Seen by CTS- not indication for surgery, recommended vascular evaluation Cards now recommending considering AC Carotid Us pending In room w , calm, pleasant 04/25 CTH repeatde no hemorrhagic conversion Started on xarelto Vascular consult for carotid disease In room by herself, calm 04/26 Vascular consult Pt eating dinner with PCT 04/27/2024 bowel movement yesterday Does not seem to be in pain. Her blood pressure and heart rate increased 04/29/2024 awake and talkative. Continues to have left-sided weakness with left-sided neglect VSS Tolerating diet Discharge pending placement in longterm facility Assessment/Plan Acute metabolic encephalopathy - possibly due to UTI vs. CVA s/p recent CVA with left sided hemiplegia (Apr 07, 2024) Severe atherosclerotic disease, with mobile atheroma, lambls excresence Left common carotid artery stenosis -Transferred from OSH for AMS -CXR (04/20): negative -MRI brain (04/20): -Large acute infarct involving right posterior cerebral artery territory -No acute intracranial hemorrhage or mass effect -Multifocal mixed age acute to subacute infarcts, right parietal lobe, left frontal and parietal lobes, and left aspect of splenium -Chronic left temporal lobe infarct, with patchy diffusion hyperintensity and intermediate ADC signal - could represent superimposed acute to subacute infarcts -Moderate sequela of chronic microvascular ischemic disease with chronic infarcts -CTA Head/Neck (04/20): -No CT evidence of acute intracranial hemorrhage or increased intracranial pressure -Occlusion of P2 segment of right PACKAGE WINDER -patent left PACKAGE WINDER with variable, to include severe, stenosis along its course -Occlusion of left vertebral artery at expected point of takeoff with slight scattered diminutive caliber reconstitution along V2 and V3 segments prior to further occlusion -right vertebral artery with calcific atherosclerosis producing at least 50% stenosis of takeoff ofright vertebral artery and variable stenosis along its course -Patent bilateral carotid arterial systems, with calcific atherosclerosis producing approximately 55-60% stenosis of right ICA -CTA C/A/P (04/22): -No acute aortic abnormality of chest, abdomen or pelvis. 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 -Diffuse atherosclerotic irregularities through thoracic and abdominal aorta and iliac vessels withregions of moderate to severe stenosis -Carotid Duplex (04/24): -50-69% stenosis bilateral internal carotid arteries -Antegrade flow noted on right vertebral artery with bidirectional flow on left - suggests left subclavian arterial stenosis -Echo (04/22): -Very subtle mobile entities on aortic valve cusps, consistent with Lambl's excrescence -THIEN with normal Doppler emptying velocities and no visible thrombus in multiple views mild TR, trace AZ, slight restriction of mitral valve anterior leaflet, with mild anterior mitral valve prolapse with associated mild-moderate MR and borderline mild mitral stenosis -bubble study negative for interatrial shunting -severe aortic atherosclerosis in descending aorta and arch, without highly mobile atheroma -Plavix/Xarelto/statin -Plavix 75mg daily -Xarelto 15mg BID x 21 days; then Xarleto 20mg daily -Crestor 20mg qpm -Depakote for seizure ppx -Serial neurochecks -Fall precautions -Monitor on telemetry -PT/OT - SNF recommended -Cardiology on board. Appreciate recs -Recommend cardiothoracic surgeon consultation -patient plans to have loop recorder placed in the future due to multiple embolic strokes in the past -consider outpatient cardiac MRI after discharge -Check Carotid Doppler -consider Vascular Consultation with her extensive stroke occurrence and risk -Neurology on board. Appreciate recs -CTH repeated and negative for hemorrhage -ok to start Xarelto/Plavix -Must remember, Depakote will reduce efficacy of Xarelto, but Depakote (started for abnormal EEG with noted changes in behavior with slow return to normal suspected to be post ictal state) does seem to be helping her behavior (panic and crying spells), therefore will continue -Could consider Lamictal, however, this would take her 6-8 weeks to be therapeutic; Keppra may worsen her panic/crying; Vimpat would not help her behavior -No further neuro recs -needs to followup in office in 6 weeks -CTS consulted. 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 -Vascular consulted. Appreciate recs - recommended outpt f/up in 6 months -Bilateral carotid stenosis unlikely to be source of her stroke, as her stroke was in posterior circulation -recommend continuing Xarelto/Plavix/Statin therapy and good blood pressure control -Can followup as an outpatient for ongoing surveillance of her carotid disease in 6 months UTI -Rehab urine culture initially showed enterococcus -s/p rocephin --> ampicillin -requested sensitivities from rehab -Final cx with dallin; no enterococcus -s/p ampicillin -s/p fluconazole -Monitor Is/Os Vitamin D deficiency -Continue vitamin D supplementation DM2 - A1C 6.2 (04/20/24) -ISS, accuchecks HTN -Verapamil 180mg daily -monitor Hx of RA -on arava 20mg daily Carotid artery stenosis -Plavix/Statin -Vascular Surgery on board. Appreciate recs Abnormal EEG with possible seizure -Depakote -Neurology on board. Appreciate recs 04/30: Afebrile. No leukocytosis. On room air. Continue plavix/xarelto/statin. Continue PT efforts.F/U CM SNF placement. Appreciate cardiology, neurology, CTS, vascular surgery help and recs. Medically stable for discharge. DC planning pending SNF placement. 05/01: Afebrile. On room air. Continue plavix/xarelto/statin. Continue PT efforts. F/U CM SNF placement. Medically stable for discharge. DC planning pending SNF placement. Thang Del Valle DO 05/01/2024 7:50 AM * Thang Del Valle DO - 04/30/2024 7:38 AM CDT General Medicine Daily Progress SUBJECTIVE Patient seen and examined. Chart reviewed. Alert to self and place. Denies F/C/N/V/CP/SOB/abdominalpain. OBJECTIVE Vitals: 24hr Min/Max: Temp Min: 36.3 ??C (97.3 ??F) Max: 36.6 ??C (97.9 ??F) Pulse Min: 88 Max: 104 BP Min: 116/77 Max: 147/62 Resp Min: 16 Max: 18 SpO2 Min: 97 % Max: 100 % Most Recent : Vitals: 04/30/24 0417 BP: 134/72 Pulse: 100 Resp: 18 Temp: 36.6 ??C (97.9 ??F) SpO2: 98% I/O last 2 completed shifts: In: 220 [P.O.:220] Out: - No intake/output data recorded. Physical Exam: General Exam: no acute distress Skin: Dry, Warm. Head: Atraumatic, Normocephalic Ears, Nose, Mouth, Throat: Moist mucous membranes Cardiovascular: Regular rhythm, S1S2 normal Respiratory: CTA bilaterally, Effort normal ABSENT: Crackles, Rhonchi Abdomen: Bowel sounds present, Soft. ABSENT: Mass, Tenderness, Distention Neurological: poor vision, intact in RLQ. Overall decreased motor function in L side, worse in LLE,has resistance in LUE Psychiatric - Orientation: Oriented to: Time, Place, Person Lab/Current Medication Review: Recent Results (from the past 24 hour(s)) POCT glucose Collection Time: 04/29/24 12:01 PM Result Value Ref Range Glucose, POC 128 70 - 199 mg/dL Glucose comment 1 Use This Result Glucose comment 2 RN/MD Notified POCT glucose Collection Time: 04/29/24 4:00 PM Result Value Ref Range Glucose, POC 133 70 - 199 mg/dL Glucose comment 1 Use This Result Glucose comment 2 RN/MD Notified POCT glucose Collection Time: 04/29/24 7:50 PM Result Value Ref Range Glucose, POC 124 70 - 199 mg/dL Glucose comment 1 Use This Result CTA Head Neck W WO Contrast Result Date: 04/20/2024 Narrative: EXAM DESCRIPTION: CTA HEAD NECK W WO CONTRAST REASON FOR STUDY: Acute altered mental status for 2 days in a patient reportedly being treated for UTI. Provided focal neurologic deficits. Noprovided history of trauma. 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 No provided surgical history. TECHNIQUE: Axial images were first obtained through the brain without contrast. Axial dynamic scanning technique with dynamic contrast enhancement through the intracranial and extracranial carotid and vertebral arteries. Multiplanar reconstruction. All stenosis measurements are based on NASCET criteria.3D MIP images rendered on scanning unit and reviewed at time of interpretation. Automated exposure control was used as a dose optimization technique for this examination. CONTRAST TYPE/DOSE: 100 mL Optiray 350 injected via peripheral IV site without reported incident. COMPARISON: MRI brain without contrast performed earlier same day FINDINGS: BRAIN: No CT evidence of acute intracranial hemorrhageor increased intracranial pressure. Please reference MRI brain performed earlier same day for detailed evaluation of bilateral, dccmd-fjddtkg-metw-left, acute infarcts superimposed on constellation of chronic findings. 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 Patent left PACKAGE WINDER, noting variable, to include severe, stenosis along its course. The anterior, middle, posterior cerebral arteries are all patent. No aneurysm. POSTERIOR CIRCULATION: Vertebral arteries as below. Patent basilar artery. No aneurysm. BRAIN: No gross evidence of [...] VERTEBRAL: Patent with calcific atherosclerosis producing at least 50% stenosis of the takeoff of the right vertebral artery with variable stenosis along its course. AORTIC ARCH: Three-vessel aortic arch. Patent subclavian arteries with calcific atherosclerosis producing variable stenosis. NECK SOFT TISSUE: No acute abnormality. No thyroid nodule greater than 1 cm. INCLUDED LUNGS: Biapical pleuroparenchymal scarring. OTHER: No other significant finding. IMPRESSION: No CT evidence of acute intracranial hemorrhage or increased intracranial pressure. Please reference MRI brain performed earlier same day for detailed evaluation ofbilateral, ddtsj-vkxvcuo-ssfu-left, acute infarcts superimposed on constellation of chronic findings. 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 Occlusion of the left [...] systems, with calcific atherosclerosis producing approximately 55-60% stenosisof the right ICA, without overt CT angiographic evidence of dissection. These significant findings were reported by telephone to patient's nurse Cris for ordering provider Arpan Rodgers on 04/20/2024 at 1554 . THIS IS AN ELECTRONICALLY VERIFIED FINAL REPORT 04/20/2024 3:57 PM - Electronically signed by Steven VALENZUELA T: Report ID: [id number] Reading Location: [id number] MRI Brain WO Contrast Result Date: 04/20/2024 Narrative: EXAM DESCRIPTION: MRI BRAIN WO CONTRAST REASON FOR STUDY: Hx of recent CVA, pt has increased weakness and decreased mental status. TECHNIQUE: Multiplanar imaging includes non-contrasted T1, T2, FLAIR, and diffusion with ADC map sequences. Additional sequence(s) sensitive to blood products. Images stored on PACS. COMPARISON: Head CT [...] EXTRAAXIAL SPACES: No abnormal extra-axial fluid collection. Normal size ventricles. BRAIN VOLUME: Yupc-uf-evcixcwo cerebral volume loss. PITUITARY: Unremarkable. VASCULATURE: Skull base flow voids are present. ORBITS: No masses. Globes normal. PARANASAL SINUSES AND MASTOIDS: No significant mucosal thickening or fluid. OTHER: No other significant finding. IMPRESSION: Large [...] findings were reported by telephone to ELLIOT Bloom on 04/20/2024 at 12:35 p.m. THIS IS AN ELECTRONICALLY VERIFIED FINAL REPORT 04/20/2024 12:44 PM - Electronically signed by Angel SIMPSON T: Report ID: [id number] Reading Location: [id number] Neuro CT Outside Reference Result Date: 04/20/2024 Narrative: This order has been auto-finalized and does not contain a result. XR Chest 1 View Result Date: 04/20/2024 Narrative: EXAM DESCRIPTION: XR CHEST 1 VIEW REASON FOR STUDY: altered mental status Pt order sts: ams Pt chart sts: HTN; Hyperlipd. Recent stroke and discharged to rehab TECHNIQUE: 1 radiographic view(s) of the chest. COMPARISON: No prior studies are available for comparison at time of this dictation. FINDINGS: LUNGS: No focal opacity, pleural effusion, or pneumothorax. HEART/MEDIASTINUM: Cardiac silhouette normal in size. Mediastinal and hilar contours appear normal. LINES/TUBES: None. BONES:No acute osseous abnormality. IMPRESSION: No acute pulmonary process. THIS IS AN ELECTRONICALLY VERIFIED FINAL REPORT 04/20/2024 9:03 AM - Electronically signed by Johan Wilson M.D., MM T: Report ID: [id number] Reading Location: [id number] Current Facility-Administered Medications Medication Dose Route Frequency Provider Last Rate Last Admin acetaminophen (TYLENOL) tablet 650 mg 650 mg oral Q6H PRN Jammie Dickson SURGICAL TERRITORY MANAGER 650 mg at 04/28/241953 Or acetaminophen (TYLENOL) 32 mg/mL oral liquid 650 mg 650 mg feeding tube Q6H PRN KristenL. Dickson NP Or acetaminophen (TYLENOL) suppository 650 mg 650 mg rectal Q6H PRN Jammie Dickson, SURGICAL TERRITORY MANAGER benzocaine-menthoL (CHLORASEPTIC) lozenge 1 lozenge 1 lozenge mouth/throat Q4H PRN Sosa Andino MD 1 lozenge at 04/25/242017 clopidogreL (PLAVIX) tablet 75 mg 75 mg oral Daily Sosa Andino MD 75 mg at 04/29/24 09 dextrose (GLUTOSE) 40 % gel 15 g 15 g oral Q15 Min PRN Jammie Dickson NP Or dextrose (D10W) 10% bolus 250 mL 250 mL intravenous Q15 Min PRN Jammie Dickson NP divalproex (DEPAKOTE SPRINKLE) sprinkle capsule 500 mg 500 mg oral BID Sailaja Bloom PA 500 mg at 04/29/242003 ergocalciferol (VITAMIN D) capsule 50,000 Units 50,000 Units oral Weekly Sosa Andino MD 50,000 Units at 04/27/24 0907 FLUoxetine (PROzac) capsule 20 mg 20 mg oral Daily Sosa Andino MD 20 mg at 04/29/24 0927 glucagon injection 1 mg 1 mg intramuscular Q30 Min PRN Jammie Dickson, [place] hydrOXYzine (ATARAX) tablet 25 mg 25 mg oral Q6H PRN Sosa Andino MD 25 mg at 04/29/24 2230 insulin lispro (HumaLOG, ADMELOG) 100 unit/mL injection 0-4 Units 0-4 Units subcutaneous Nightly Jammie Dickson NP insulin lispro (HumaLOG, ADMELOG) 100 unit/mL injection 0-5 Units 0-5 Units subcutaneous TID with meals Jammie Dickson NP 1 Units at 04/28/24 1305 leflunomide (ARAVA) tablet 20 mg 20 mg oral Daily Sosa Andino MD 20 mg at 04/29/24 0926 peg 320-rikvbiwabpsf-eysanbhd (ARTIFICAL TEARS) 1-0.2-0.2 % ophthalmic solution 1 drop 1 drop each eye TID PRN Sosa Andino MD 1 drop at 04/25/24 0922 rivaroxaban (XARELTO) tablet 15 mg 15 mg oral BID with meals (bkfst, dinner) Sosa Andino MD 15 mg at 04/29/24 1717 Followed by [START ON 05/15/2024] rivaroxaban (XARELTO) tablet 20 mg 20 mg oral Daily with dinner Sosa Andino MD rosuvastatin (CRESTOR) tablet 20 mg 20 mg oral Daily Jammie Dickson NP 20 mg at 04/29/24 0926 sodium chloride 0.9% flush 0.5-20 mL 0.5-20 mL intra-catheter Q8H ROBERTO Jammie Dickson NP 10mL at 04/30/24 0451 sodium chloride 0.9% flush 0.5-20 mL 0.5-20 mL intra-catheter PRN Jammie Dickson, SURGICAL TERRITORY MANAGER tamsulosin (FLOMAX) extended release capsule 0.4 mg 0.4 mg oral Daily with evening meal Giancarlo Durant MD 0.4 mg at 04/29/24 1717 verapamil SR (CALAN SR) extended release tablet 180 mg 180 mg oral Daily Giancarlo Durant MD 180mg at 04/29/24 0926 63 y/o F female with PMH of recent CVA w/left sided residual hemiparesis (left arm/leg), HTN, HLD who initially presented to [facility] ED from rehab center with decline in mental status, lethargy x 1-2 days. Patient only oriented to person; knows name and month/day of ; but couldn't provide year. Ableto follow most commands correctly. Doesn't answer all questions appropriately. Repeats yes to questions that require more than yes or no answer. [facility] hospital reported pt oreinted x2 at baseline. Per ED record, she was sent from [facility] for mental status decline over last 2 days. Pt at rehab center for physical therapy post recent stroke that left patient with left-sided residual hemiparesis. Was noted that pt was also being treated for UTI with Cefdinir, with no improvement in symptoms. Had fernandez in place. ED work-up noted: BP: 125/77. HR 83 RR 16 T 98.3 98% on RA; WBC normal 7.1, Hb10 (stable from previous); Cr: 0.9; Repeat UA: 3+ leuk >100 WBC; BCX drawn, given rocephin. ED also noted CT brain shows worsening of recent stroke. Subacute infarct involving R internal capsule,and R temporal occipital region, worsened from 04/07/2024. Also, shows old infarcts and chronic small vessel . Disc sent from OSH. No NIH charted from OSH. [facility] did not have neuro telephoner. Dr. Rodgers Neuro agreeable to consult. Upon arrival, she was oriented to person only; follows most commands correctly; doesn't answer all questions appropriately. C/o pain and cramping to right lower extremity; pt moves the right side w/o difficulty.Has very little movement with left arm or left leg. Unknown when last known normal; noted decline over 2 days. Difficult to score/NIH 16; due to pt not followingall commands. Easily distracted due to discomfort in right leg. No other verbalized complaints. Urine cloudy aissatou desai colored. Fernandez cath in place draining freely to gravity bag. 04/22 Vss EEG w L temporal discharge SHIVAM w significant atherosclerotic dz descending aorta Brother in room 04/23 Vss SHIVAM w significant amt of atherosclerotic dz, mobile atheroma in descending aorta and arch, labml's excresence in aortic valve cusps CTA CAP recommended/ordered.resulted-infrarenal abdom aortic aneurysm 3cm, severe stenosis of SMA, R renal artery, L common carotid origin, Data Analytics Architect and CTS consulted. Recommend anticoagulation when ok from neuro, CTS to see Pt needs repeated encouragement for eating/drinking, does better with family nearby. Lots of anxiety, even w family here Urine from OSH w enterococcus, rocephin switched to ampicillin Requested further records for blood cx and Urine cx w sensitivty if available Questionable Urinary retention resoled prior to straight cath last night Pt in room w , calm No abdom pain w eating 04/24 vss Seen by CTS- not indication for surgery, recommended vascular evaluation Cards now recommending considering AC Carotid Us pending In room w , calm, pleasant 04/25 CTH repeatde no hemorrhagic conversion Started on xarelto Vascular consult for carotid disease In room by herself, calm 04/26 Vascular consult Pt eating dinner with PCT 04/27/2024 bowel movement yesterday Does not seem to be in pain. Her blood pressure and heart rate increased 04/29/2024 awake and talkative. Continues to have left-sided weakness with left-sided neglect VSS Tolerating diet Discharge pending placement in longterm facility Assessment/Plan Acute metabolic encephalopathy - possibly due to UTI vs. CVA s/p recent CVA with left sided hemiplegia (Apr 07, 2024) Severe atherosclerotic disease, with mobile atheroma, lambls excresence Left common carotid artery stenosis -Transferred from OSH for AMS -CXR (04/20): negative -MRI brain (04/20): - Large acute infarct involving right posterior cerebral artery territory -No acute intracranial hemorrhage or mass effect -Multifocal mixed age acute to subacute infarcts, right parietal lobe, left frontal and parietal lobes, and left aspect of splenium -Chronic left temporal lobe infarct, with patchy diffusion hyperintensity and intermediate ADC signal - could represent superimposed acute to subacute infarcts -Moderate sequela of chronic microvascular ischemic disease with chronic infarcts -CTA Head/Neck (04/20): -No CT evidence of acute intracranial hemorrhage or increased intracranial pressure -Occlusion of P2 segment of right PACKAGE WINDER -patent left PACKAGE WINDER with variable, to include severe, stenosis along its course -Occlusion of left vertebral artery at expected point of takeoff with slight scattered diminutive caliber reconstitution along V2 and V3 segments prior to further occlusion -right vertebral artery with calcific atherosclerosis producing at least 50% stenosis of takeoff ofright vertebral artery and variable stenosis along its course -Patent bilateral carotid arterial systems, with calcific atherosclerosis producing approximately 55-60% stenosis of right ICA -CTA C/A/P (04/22): -No acute aortic abnormality of chest, abdomen or pelvis. 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 -Diffuse atherosclerotic irregularities through thoracic and abdominal aorta and iliac vessels withregions of moderate to severe stenosis -Carotid Duplex (04/24): -50-69% stenosis bilateral internal carotid arteries -Antegrade flow noted on right vertebral artery with bidirectional flow on left - suggests left subclavian arterial stenosis -Echo (04/22): -Very subtle mobile entities on aortic valve cusps, consistent with Lambl's excrescence -THIEN with normal Doppler emptying velocities and no visible thrombus in multiple views mild TR, trace AZ, slight restriction of mitral valve anterior leaflet, with mild anterior mitral valve prolapse with associated mild-moderate MR and borderline mild mitral stenosis -bubble study negative for interatrial shunting -severe aortic atherosclerosis in descending aorta and arch, without highly mobile atheroma -Plavix/Xarelto/statin -Plavix 75mg daily -Xarelto 15mg BID x 21 days; then Xarleto 20mg daily -Crestor 20mg qpm -Depakote for seizure ppx -Serial neurochecks -Fall precautions -Monitor on telemetry -PT/OT - SNF recommended -Cardiology on board. Appreciate recs -Recommend cardiothoracic surgeon consultation -patient plans to have loop recorder placed in the future due to multiple embolic strokes in the past -consider outpatient cardiac MRI after discharge -Check Carotid Doppler -consider Vascular Consultation with her extensive stroke occurrence and risk -Neurology on board. Appreciate recs -CTH repeated and negative for hemorrhage -ok to start Xarelto/Plavix -Must remember, Depakote will reduce efficacy of Xarelto, but Depakote (started for abnormal EEG with noted changes in behavior with slow return to normal suspected to be post ictal state) does seem to be helping her behavior (panic and crying spells), therefore will continue -Could consider Lamictal, however, this would take her 6-8 weeks to be therapeutic; Keppra may worsen her panic/crying; Vimpat would not help her behavior -No further neuro recs -needs to followup in office in 6 weeks -CTS consulted. 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 -Vascular consulted. Appreciate recs - recommended outpt f/up in 6 months -Bilateral carotid stenosis unlikely to be source of her stroke, as her stroke was in posterior circulation -recommend continuing Xarelto/Plavix/Statin therapy and good blood pressure control -Can followup as an outpatient for ongoing surveillance of her carotid disease in 6 months UTI -Rehab urine culture initially showed enterococcus -s/p rocephin --> ampicillin -requested sensitivities from rehab -Final cx with dallin; no enterococcus -s/p ampicillin -s/p fluconazole -Monitor Is/Os Vitamin D deficiency -Continue vitamin D supplementation DM2 - A1C 6.2 (04/20/24) -ISS, accuchecks HTN -Verapamil 180mg daily -monitor Hx of RA -on arava 20mg daily Carotid artery stenosis -Plavix/Statin -Vascular Surgery on board. Appreciate recs Abnormal EEG with possible seizure -Depakote -Neurology on board. Appreciate recs 04/30: Afebrile. No leukocytosis. On room air. Continue plavix/xarelto/statin. Continue PT efforts.F/U CM SNF placement. Appreciate cardiology, neurology, CTS, vascular surgery help and recs. Medically stable for discharge. DC planning pending SNF placement. Thang Del Valle, DO 04/30/2024 7:38 AM * Giancarlo Durant MD - 04/29/2024 3:03 PM CDT General Medicine Daily Progress SUBJECTIVE Chief complaint of Pt w recent CVA w L UE and LLE weakness, HTN, DM, RA, presents to OSH ED from rehab for AMS 1-2 days. CTH concerning for new cva, also being treated for UTI w cefdinir Neuro consulted Placed on rocephin overnight MRI resulted Pt has had event monitoring november/December 2023, sinus rhythm, no afib, flutter mentioned see care everywhere Will request UA.[facility] fernandez placed in the last week or so Pt deny dysuria, discomfort w urination Major cva in January and in mar, was sjust transferred to rehab after stroke teated at [facility] in [place]. LUE LLE paresis Pt appear at baseline now this early afternoon according to Gbp was just restarted but taking as needed at rehab . Interval History: Vss CTA w significant posterior cirv disease Neuro recommended SHIVAM and extended cardiac monitoring In room w , supposed to have loop recorder placed this wk in [place] Has L ankle mvmt > L knee, hip mvmt, L hand shop director soft, able to roll elbow and was observed to bring L hand to her glasses w/o her realizing during therapy session today Though pt complains of pain w L sided mvmt 04/22 Vss EEG w L temporal discharge SHIVAM td w significant atherosclerotic dz descending aorta Brother in room 04/23 Vss SHIVAM w significant amt of atherosclerotic dz, mobile atheroma in descending aorta and arch, labml's excresence in aortic valve cusps CTA CAP recommended/ordered.resulted-infrarenal abdom aortic aneurysm 3cm, severe stenosis of SMA, R renal artery, L common carotid origin, Data Analytics Architect and CTS consulted. Recommend anticoagulation when ok from neuro, CTS to see Pt needs repeated encouragement for eating/drinking, does better with family nearby. Lots of anxiety, even w family here Urine from OSH w enterococcus, rocephin switched to ampicillin Requested further records for blood cx and Urine cx w sensitivty if available Questionable Urinary retention resoled prior to straight cath last night Pt in room w luci No abdom pain w eating 04/24 vss Seen by CTS- not indication for surgery, recommended vascular evaluation Cards now recommending considering AC Carotid Us pending In room w luci armando pleasant 04/25 CTH repeatde no hemorrhagic conversion Started on xarelto Labs stable will space them out Vascular consult td for carotid disease In room by herself, luci 04/26 Vascular consult td [facility] labs Pt eating dinner with PCT 04/27/2024 Interval history I saw the patient for the 1st time today she is awake confused she has think in her rehab. She had bowel movement yesterday. Does not seem to be in pain. Her blood pressure and heart rate is increased 04/29/2024 Patient is awake and talkative. Continues to have left-sided weakness with left-sided neglect Vital signs Stable Tolerating diet Discharge pending placement in longterm facility OBJECTIVE Vitals: 24hr Min/Max: Temp Min: 36.3 ??C (97.3 ??F) Max: 37 ??C (98.6 ??F) Pulse Min: 88 Max: 104 BP Min: 116/77 Max: 143/72 Resp Min: 16 Max: 18 SpO2 Min: 95 % Max: 99 % Most Recent : Vitals: 04/29/24 1204 BP: 116/77 Pulse: 104 Resp: 16 Temp: 36.6 ??C (97.9 ??F) SpO2: 98% I/O last 2 completed shifts: In: 640 [P.O.:640] Out: - No intake/output data recorded. Physical Exam: General Exam: In no acute distress Skin: Dry, Warm. ABSENT: Jaundice, Rash Head: Atraumatic, Normocephalic Ears, Nose, Mouth, Throat: Ext. ears & nose normal, Moist mucous membranes Cardiovascular: Normal range, Regular rhythm, S1S2 normal. ABSENT: Edema Respiratory: CTA bilaterally, Effort normal ABSENT: Crackles, Rhonchi Abdomen: Bowel sounds present, Soft. ABSENT: Mass, Tenderness, Distention Musculoskeletal/Extremities: Joints normal Neurological: poor vision, intact in RLQ. 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6 - 45.5 % Plt 249 150 - 400 K/cumm MPV 10.6 9.1 - 12.3 fL RBC 3.26 (L) 3.90 - 5.20 M/cumm MCV 85.3 81.3 - 96.4 fL MCH 27.6 27.1 - 33.3 pg MCHC 32.4 32.3 - 35.7 g/dL RDW CV 14.8 11.1 - 14.9 % RDW SD 45.7 35.7 - 48.1 fL NRBC abs 0.00 0.00 - 0.01 K/cumm Renal function panel Collection Time: 04/29/24 12:18 AM Result Value Ref Range Sodium 143 135 - 145 mmol/L Potassium, pl 3.7 3.3 - 4.9 mmol/L Chloride 106 97 - 110 mmol/L CO2 27 22 - 32 mmol/L Anion gap 10 2 - 15 mmol/L BUN 29 (H) 6 - 25 mg/dL Creatinine 0.76 0.60 - 1.10 mg/dL Glucose 144 70 - 199 mg/dL Calcium 10.2 8.5 - 10.3 mg/dL Phosphorus, pl 3.7 2.3 - 4.5 mg/dL Albumin 3.9 3.5 - 5.0 g/dL Differential, auto Collection Time: 04/29/24 12:18 AM Result Value Ref Range Neutrophil abs 3.3 1.5 - 6.5 K/cumm Imm gran abs 0.0 0.0 - 0.1 K/cumm Lymphocyte abs 2.2 0.8 - 3.3 K/cumm Monocyte abs 0.7 0.2 - 0.8 K/cumm Eosinophil abs 0.5 0.0 - 0.5 K/cumm Basophil abs 0.1 0.0 - 0.1 K/cumm Neutrophil pct 48.8 % Imm gran pct 0.3 % Lymphocyte pct 31.9 % Monocyte pct 10.5 % Eosinophil pct 7.3 % Basophil pct 1.2 % eGFR Collection Time: 04/29/24 12:18 AM Result Value Ref Range eGFR 88 >=60 mL/min/1.73 m2 POCT glucose Collection Time: 04/29/24 7:16 AM Result Value Ref Range Glucose, POC 132 70 - 199 mg/dL Glucose comment 1 Use This Result Glucose comment 2 RN/MD Notified POCT glucose Collection Time: 04/29/24 12:01 PM Result Value Ref Range Glucose, POC 128 70 - 199 mg/dL Glucose comment 1 Use This Result Glucose comment 2 RN/MD Notified CTA Head Neck W WO Contrast Result Date: 04/20/2024 Narrative: EXAM DESCRIPTION: CTA HEAD NECK W WO CONTRAST REASON FOR STUDY: Acute altered mental status for 2 days in a patient reportedly being treated for UTI. Provided focal neurologic deficits. Noprovided history of trauma. 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 No provided surgical history. TECHNIQUE: Axial images were first obtained through the brain without contrast. Axial dynamic scanning technique with dynamic contrast enhancement through the intracranial and extracranial carotid and vertebral arteries. Multiplanar reconstruction. All stenosis measurements are based on NASCET criteria.3D MIP images rendered on scanning unit and reviewed at time of interpretation. Automated exposure control was used as a dose optimization technique for this examination. CONTRAST TYPE/DOSE: 100 mL Optiray 350 injected via peripheral IV site without reported incident. COMPARISON: MRI brain without contrast performed earlier same day FINDINGS: BRAIN: No CT evidence of acute intracranial hemorrhageor increased intracranial pressure. Please reference MRI brain performed earlier same day for detailed evaluation of bilateral, guqyb-rkqmkrk-iscb-left, acute infarcts superimposed on constellation of chronic findings. 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 Patent left PACKAGE WINDER, noting variable, to include severe, stenosis along its course. The anterior, middle, posterior cerebral arteries are all patent. No aneurysm. POSTERIOR CIRCULATION: Vertebral arteries as below. Patent basilar artery. No aneurysm. BRAIN: No gross evidence of [...] VERTEBRAL: Patent with calcific atherosclerosis producing at least 50% stenosis of the takeoff of the right vertebral artery with variable stenosis along its course. AORTIC ARCH: Three-vessel aortic arch. Patent subclavian arteries with calcific atherosclerosis producing variable stenosis. NECK SOFT TISSUE: No acute abnormality. No thyroid nodule greater than 1 cm. INCLUDED LUNGS: Biapical pleuroparenchymal scarring. OTHER: No other significant finding. IMPRESSION: No CT evidence of acute intracranial hemorrhage or increased intracranial pressure. Please reference MRI brain performed earlier same day for detailed evaluation ofbilateral, tkxbj-arcyabe-xrsq-left, acute infarcts superimposed on constellation of chronic findings. 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 Occlusion of the left [...] systems, with calcific atherosclerosis producing approximately 55-60% stenosisof the right ICA, without overt CT angiographic evidence of dissection. These significant findings were reported by telephone to patient's nurse Cris for ordering provider Arpan Rodgers on 04/20/2024 at 1554 . THIS IS AN ELECTRONICALLY VERIFIED FINAL REPORT 04/20/2024 3:57 PM - Electronically signed by Steven VALNEZUELA T: Report ID: [id number] Reading Location: [id number] MRI Brain WO Contrast Result Date: 04/20/2024 Narrative: EXAM DESCRIPTION: MRI BRAIN WO CONTRAST REASON FOR STUDY: Hx of recent CVA, pt has increased weakness and decreased mental status. TECHNIQUE: Multiplanar imaging includes non-contrasted T1, T2, FLAIR, and diffusion with ADC map sequences. Additional sequence(s) sensitive to blood products. Images stored on PACS. COMPARISON: Head CT [...] EXTRAAXIAL SPACES: No abnormal extra-axial fluid collection. Normal size ventricles. BRAIN VOLUME: Sjoz-pi-bktickqe cerebral volume loss. PITUITARY: Unremarkable. VASCULATURE: Skull base flow voids are present. ORBITS: No masses. Globes normal. PARANASAL SINUSES AND MASTOIDS: No significant mucosal thickening or fluid. OTHER: No other significant finding. IMPRESSION: Large [...] findings were reported by telephone to ELLIOT Bloom on 04/20/2024 at 12:35 p.m. THIS IS AN ELECTRONICALLY VERIFIED FINAL REPORT 04/20/2024 12:44 PM - Electronically signed by Angel Kyle M.D. AG T: Report ID: [id number] Reading Location: [id number] Neuro CT Outside Reference Result Date: 04/20/2024 Narrative: This order has been auto-finalized and does not contain a result. XR Chest 1 View Result Date: 04/20/2024 Narrative: EXAM DESCRIPTION: XR CHEST 1 VIEW REASON FOR STUDY: altered mental status Pt order sts: ams Pt chart sts: HTN; Hyperlipd. Recent stroke and discharged to rehab TECHNIQUE: 1 radiographic view(s) of the chest. COMPARISON: No prior studies are available for comparison at time of this dictation. FINDINGS: LUNGS: No focal opacity, pleural effusion, or pneumothorax. HEART/MEDIASTINUM: Cardiac silhouette normal in size. Mediastinal and hilar contours appear normal. LINES/TUBES: None. BONES:No acute osseous abnormality. IMPRESSION: No acute pulmonary process. THIS IS AN ELECTRONICALLY VERIFIED FINAL REPORT 04/20/2024 9:03 AM - Electronically signed by Johan Wilson M.D. MM T: Report ID: [id number] Reading Location: [place] [address] Current Facility-Administered Medications Medication Dose Route Frequency Provider Last Rate Last Admin acetaminophen (TYLENOL) tablet 650 mg 650 mg oral Q6H PRN Jammie Dickson NP 650 mg at 04/28/241953 Or acetaminophen (TYLENOL) 32 mg/mL oral liquid 650 mg 650 mg feeding tube Q6H PRN KristenL. Dickson NP Or acetaminophen (TYLENOL) suppository 650 mg 650 mg rectal Q6H PRN Jammie Dickson NP benzocaine-menthoL (CHLORASEPTIC) lozenge 1 lozenge 1 lozenge mouth/throat Q4H PRN Sosa Andino MD 1 lozenge at 04/25/242017 clopidogreL (PLAVIX) tablet 75 mg 75 mg oral Daily Sosa Andino MD 75 mg at 04/29/24 09 dextrose (GLUTOSE) 40 % gel 15 g 15 g oral Q15 Min PRN Jammie Dickson NP Or dextrose (D10W) 10% bolus 250 mL 250 mL intravenous Q15 Min PRN Jammie Dickson NP divalproex (DEPAKOTE SPRINKLE) sprinkle capsule 500 mg 500 mg oral BID Sailaja Bloom PA 500 mg at 04/29/24 0926 ergocalciferol (VITAMIN D) capsule 50,000 Units 50,000 Units oral Weekly Sosa Andino MD 50,000 Units at 04/27/24 0907 FLUoxetine (PROzac) capsule 20 mg 20 mg oral Daily Sosa Andino MD 20 mg at 04/29/24 0927 glucagon injection 1 mg 1 mg intramuscular Q30 Min PRN Jammie Dickson, [place] hydrOXYzine (ATARAX) tablet 25 mg 25 mg oral Q6H PRN Sosa Andino MD 25 mg at 04/28/24 1954 insulin lispro (HumaLOG, ADMELOG) 100 unit/mL injection 0-4 Units 0-4 Units subcutaneous Nightly Jammie Dickson, [place] insulin lispro (HumaLOG, ADMELOG) 100 unit/mL injection 0-5 Units 0-5 Units subcutaneous TID with meals Jammie Dickson NP 1 Units at 04/28/24 1305 leflunomide (ARAVA) tablet 20 mg 20 mg oral Daily Sosa Andino MD 20 mg at 04/29/24 0926 peg 139-aexvkiyvroyn-efnnxcne (ARTIFICAL TEARS) 1-0.2-0.2 % ophthalmic solution 1 drop 1 drop each eye TID PRN Sosa Andino MD 1 drop at 04/25/24 0922 rivaroxaban (XARELTO) tablet 15 mg 15 mg oral BID with meals (bkfst, dinner) Sosa Andino MD 15 mg at 04/29/24 0926 Followed by [START ON 05/15/2024] rivaroxaban (XARELTO) tablet 20 mg 20 mg oral Daily with dinner Sosa Andino MD rosuvastatin (CRESTOR) tablet 20 mg 20 mg oral Daily Jammie Dickson NP 20 mg at 04/29/24 0926 sodium chloride 0.9% flush 0.5-20 mL 0.5-20 mL intra-catheter Q8H ROBERTO Jammie Dickson, SURGICAL TERRITORY MANAGER 10mL at 04/29/24 0518 sodium chloride 0.9% flush 0.5-20 mL 0.5-20 mL intra-catheter PRN Jammie Dickson NP tamsulosin (FLOMAX) extended release capsule 0.4 mg 0.4 mg oral Daily with evening meal Giancarlo Durant MD 0.4 mg at 04/28/24 1728 verapamil SR (CALAN SR) extended release tablet 180 mg 180 mg oral Daily Giancarlo Durant MD 180mg at 04/29/24 0926 A/P: MDM Principal Problem: Altered mental status, unspecified altered mental status type Active Problems: HTN (hypertension) Hyperlipidemia Type 2 diabetes mellitus (HCC) UTI (urinary tract infection) CVA (cerebral vascular accident) (HCC) 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 Altered Mental Status Worsening CVA; post recent CVA with left sided hemiplegia (Apr 07, 2024): Severe atherosclerotic disease with mobile atheroma, lambl;s excresence L common carotid artery stenosis Transferred from OSH for AMS likely 2/2 Worsening CVA based 'n CT head vs UTI. -CXR ordered to r/o any infectious processes -MRI brain w new acute.subacute cva bilaterally; CTA as above -No recent ECHO results available (need requested from [facility]ik) -continue aspirin and statin currently, cardiology recommending full dose AC when ok from neuro-likely Thursday -Neurochecks 4hrs -Fall precautions; up with assistance -PT/OT/ST eval and tx -Dr Rodgers, Neurology consulted -cont tele -discussed w cardiology, SHIVAM done, will need extended cardiac monitoring, describes what sounds like event monitor use in the past, and now OSH requested loop monitor -CTA CAP ordered by rec's from cards/vascular -diffuse atherosclerotic dz. 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 Will discuss w neuro, recommended start AC, repeat CTH w.o hemorrhagic conversion. Xarelto started, continue w plavix. Aspirin dc'd -vascular consulted, recommended outpt f/up in 6 mon UTI: UA positive. >100 WBCs, 3+LEs -Urine culture showing enterococcus, rocephin-->ampicillin, will request from rehab sensitivities. Final cx with dallin, no enterococcus, will dc ampicillin, pt does report intermittent vaginal itching, will give fluconazole -dc IVFs -Strict intake and output -dc fernandez - voiding spontaneously -final blood culture from [facility] also ngtd, appreciate staff obtaining records Type 2DM: -HgbA1c 6.2 -Blood glucose monitoring ACHS. -SSI ordered -Hold dose of metformin HTN: -Hold antihypertensives to avoid hypotension -resume when appropriate -routine VS; monitor BP closely Voice recognition software [employer] was used dictate and transcribe this document. Project Manager variances may occur. Despite proofreading, typographical errors may occur. For patients or family members viewing this note through algrano: This note was written as a communication tool between healthcare providers and may contain technical language, terminology and abbreviations that is difficult to interpret without advanced medical training. If you have questions or concerns regarding what is written in this note, please request to speak with the primary medical team taking care of you or your family member. 04/27/2024 Current medical problems 1 multiple old strokes 2 new stroke with left-sided weakness 3 UTI Enterococcus and Dallin. Completed ampicillin. Given fluconazole. 4 bilateral carotid stenosis unlikely the source of her stroke as her stroke was in the posterior circulation 5 hypertension and diabetes 6 past medical history of old strokes, rheumatoid arthritis 7 abnormal EEG possible stroke Plan Continue anticoagulation started on Xarelto during this admission for recurrent stroke Continue Plavix 75 mg daily Continue Depakote started to help with her panic attack as well Restart home verapamil today Restart home Flomax today Monitor blood pressure and vital signs for the next 24 hours Possible discharge to [facility]hab in the next 24 hours Follow-up with vascular surgery as outpatient Follow up with Neurology as outpatient Follow-up with Cardiology as outpatient 04/29/2024 Current medical problems New stroke with left-sided weakness. Started anticoagulation during this admission Multiple old strokes UTI Enterococcus and Dallin Carotid artery stenosis Abnormal EEG with possible seizure. Started on Depakote during this admission Found to have vitamin-D deficiency started on replacement mobile entities on aortic valve cusp consistent with reynolds's excrescence, severe aortic atherosclerosis, moderate mitral stenosis CTS did not recommend any surgical intervention Plan Continue anticoagulation with Xarelto Continue Plavix daily Continue Depakote Continue current blood pressure medications Discharge order and summary completed on 04/28/2024 pending placement Giancarlo Durant MD 04/29/2024 3:04 PM * [place] aparicio PTA - 04/29/2024 2:01 PM CDT Physical Therapy 04/29/24 1401 PT Last Visit PT Missed Visit Reason Asleep (Pt was sleeping called RN and she stated that pt has been very sleepy today. Let rest and check over the weekend.) * Melissa Figueroa PTA - 04/29/2024 10:19 AM CDT Physical Therapy 04/29/24 1019 PT Last Visit PT Missed Visit Reason Family declined (Pt was not waking, in room. stated to let her rest that they were waiting on placement Will check in the afternoon.) * Annika Ruggiero COTA - 04/29/2024 10:18 AM CDT Occupational Therapy 04/29/24 1018 General Session Type Treatment OT Missed Visit Reason Family declined (Pt sound asleep. Pt will inconsistently respod to therapists but did not open eyes. Per spouse, requesting therapy just let her sleep at this time.) Plan Plan Continue with current plan * Eloise Kapoor - 04/28/2024 11:15 AM CDT PASRR completed No Level II required. Individual ID [id number] Assessment ID [id number] Eloies Kapoor 11:15 AM 04/28/2024 * Melissa Figueroa PTA - 04/28/2024 9:35 AM CDT Physical Therapy 04/28/24 0935 PT Last Visit Session Type Treatment Safe Environment Arm band checked;Patient found in supine;Session completed bedside;Gait belt utilized for all out of bed mobility Subjective Agreeable to Therapy Family/Caregiver Present Yes () Precautions Precautions Bed/Chair Alarm;Fall risk Pain Assessment Pain Assessment No/denies pain Cognition Arousal/Alertness Alert Orientation Oriented to person Seated Seated-Exercises Lower extremity Reps/Sets 10 Seated-Motion AROM;AAROM Seated-Exercise Comments L was PROM, R was A,AA to PROM Bed Mobility 1 Bed Mobility From 1 Rolling right Bed Mobility Type 1 To and from Bed Mobility to 1 Rolling left Level of Assistance 1 Maximum Assist;Minimal verbal cues (+2) Bed Mobility 2 Bed Mobility From 2 Supine Bed Mobility Type 2 To Bed Mobility to 2 Edge of Bed Level of Assistance 2 Dependent (+2) Bed Mobility Comments 2 Pt was dependent to get to the EOB but once there was sit up better then she had. Not leaning to the left and back as much. Needed sba to cga for balance. Pt used rail to holdwith Rue off and on. Transfer 1 Transfer From 1 Sit Transfer Type 1 To and from Transfer to 1 Stand Transfer Device 1 Wheeled walker Transfer Level of Assistance 1 Moderate Assist;Minimal verbal cues (+2) Trials/Comments 1 Pt stood once with RW but was not able to move feet. Pt sat then stood again withhha max+2 attempted to take steps but was not able to take but one step with the L and was not ableto control where to put it. Pt started to c/o of it hurting and sat back on the bed. Transfers 2 Transfer From 2 Bed Transfer Type 2 To Transfer to 2 Chair with arms Technique 2 Stand pivot Transfer Device 2 No device;Hand held assist Transfer Level of Assistance 2 Maximum Assist Trials/Comments 2 Pt stood a thrid time and shuffled a little but then pivoted to the chair. Alarm in chair. Safe Environment End of Therapy Session Safe Environment End of Therapy Session Patient left in recliner;Chair alarm in place and activated;Call light within reach;Overbed table within reach Plan Plan Continue with current plan Recommendation/Plan PT Recommendation/Plan (S) Custodial Facility Patient at high risk for Falls;Readmission;Injury due to decreased ability to care for self Recommend SNF due to Risk of injury at home;Unable to safely care for self in the home;Skilled therapy needed to address care for self in the home;Skilled therapy needed to address functional deficits;Skilled therapy needed for patient to return to prior level of independence Time Calculation Start Time 0935 Stop Time 1003 Time Calculation (min) 28 min Cotx with ERWIN Roblero for safety of pt and staff due to current diagnosis, medical status, and unknown level of functional performance. Principal Investigator Services Utilized: NO Educated the patient to the role of physical therapy, plan of care, goals of therapy, rationale forprogressing mobility Patient was left with all needs met and equipment intact. Mobility and ADL status posted at bedsideand within medical record. Multi-Disciplinary Problems (from Physical Therapy) Active Problems Problem: PT [facility] Start Date: 04/20/24 Goal Start Date Expected End Date End Date PT [facility] 1 04/20/24 05/04/24 -- Goal Details: Pt will transfer supine<>sit with min assist x 1 Goal Start Date Expected End Date End Date PT [facility] 2 04/20/24 05/04/24 -- Goal Details: Pt will transfer bed<>chair with assistive device as needed with min assist x 1 Goal Start Date Expected End Date End Date PT [facility] 3 04/20/24 05/04/24 -- Goal Details: Pt will sit at edge of bed with supervision for balance, x 5 minutes Goal Start Date Expected End Date End Date PT [facility] 4 04/20/24 05/04/24 -- Goal Details: Pt will ambulate 25 feet with assistive device as needed with min assist x 1 Goal Start Date Expected End Date End Date PT [facility] 5 04/20/24 05/04/24 -- Goal Details: Pt will perform BLE seated therex x 10 reps each with supervision Pt progressing * Annika Ruggiero COTA - 04/28/2024 9:35 AM CDT Occupational Therapy 04/28/24 0936 General Session Type Treatment OT Received On 04/28/24 Safe Environment Arm band checked;Patient found in supine;Gait belt utilized for all out of bed mobility Subjective Agreeable to Therapy Subjective Comment I am ok Family/Caregiver Present Yes (Spouse) Pain Assessment Pain Assessment No/denies pain Static Sitting Balance Static Sitting-Balance Support Bilateral upper extremity supported;Feet supported Static Sitting-Sitting Surface Bed Static Sitting-Level of Assistance Contact guard;Minimum assistance Static Sitting-Comment/# of Minutes Pt required cueing on leaning to R side due to increased lean towards L. Static Standing Balance Static Standing-Balance Support Bilateral upper extremity supported Static Standing-Standing Surface Floor Static Standing-Level of Assistance (MOD assist x2) Static Standing-Comment/# of Minutes Pt able to perform static standing x3 trials Bed Mobility 1 Bed Mobility From 1 Supine Bed Mobility Type 1 To Bed Mobility to 1 Edge of bed Level of Assistance 1 (DEP x2) Transfer 1 Transfer From 1 Sit Transfer Type 1 To and from Transfer to 1 Stand Transfer Device 1 Wheeled walker Transfer Level of Assistance 1 (MOD assist x2) Trials/Comments 1 Pt able to perform sit<>stand x3 trials. 1 trial we attempted to stand withWW but pt unable to advance feet to take steps Transfers 2 Transfer From 2 Bed Transfer Type 2 To Transfer to 2 Chair with arms Transfer Device 2 No device;Hand held assist Transfer Level of Assistance 2 (MAX assist x2) Trials/Comments 2 Pt able to bear weight through LEs and shuffle feet during transfer Therapeutic Exercise - ROM/STRENGTH Other Exercise PROM, LUE, in all planes and joints of movement. Pt able to initiate movement in LUEthis session but was unable to perform full ROM without assist Cognition Cognition Comments Pt stated [place] when asked were she was and was unable to state what yearit was Overall Cognitive Status Impaired Arousal/Alertness Delayed responses to stimuli Attention Span Attends with cues to redirect;Difficulty attending to directions Memory Decreased short term memory;Decreased recall of recent events;Decreased recall of biographical information Current communication Impaired - Global Aphasia Orientation Oriented to person Following Commands Follows one step commands with repetition Safety Judgment Unable to assess Activity Tolerance Endurance Tolerates 10 - 20 min activity with multiple rests Other Comments Comments Pt continues to require much cueing both verabal and tactile when scanning to locate itemson L side of room Safe Environment End of Therapy Session Safe Environment End of Therapy Session Patient left in recliner;Chair alarm in place and activated;RN notified;Overbed table within reach;Call light within reach (Spouse at bedside) Assessment Prognosis Fair Plan Plan Continue with current plan Recommendation/Plan OT Recommendation (S) Custodial Facility Patient at high risk for Falls;Readmission;Injury due to decreased ability to care for self;Injury due to reduced functional status;Injury due to balance deficits;Injury due to impaired cognition;Injury at home as patient has not returned to prior level of function Recommend SNF due to Risk of injury at home;Unable to safely care for self in the home;Skilled therapy needed to address care for self in the home;Skilled therapy needed to address functional deficits;Skilled therapy needed for patient to return to prior level of independence Progress during current admission Slow progress, cognitive deficits Time Calculation Start Time 0935 Stop Time 1003 Time Calculation (min) 28 min Reason for interruption Co Tx with Melissa Dobbins PTA Educated the patient to the role of occupational therapy, plan of care, goals of therapy, rationalefor progressing mobility and use of call light. Poor understanding. RN notified of session outcome. Patient was left in recliner with all needs met and equipment intact. Safety measures include handoff to nurse/tech, chair alarm activated, oriented to call light and placed within reach, and personal items within reach. Mobility and ADL status posted at bedside and within medical record. Principal Investigator Services Utilized: NO Patient is identified by name and date of on this visit. Cotx with Melissa Dobbins PTA for safety of patient and staff due to current diagnosis, medical status,and current level of functional performance. * Senia Kong, MEMO - 04/27/2024 3:29 PM CDT NUTRITION ASSESSMENT Nutrition Status: Patient at risk for malnutrition, but does not meet AAIM (ASPEN) criteria for malnutrition. 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 ED from rehab center with decline in mental status and lethargy x 1-2 days. Patient only oriented to person; knows name and month/day of ; but couldn't provide year. Able to follow most commands correctly. Doesn't answer all questions appropriately. Repeats yes to questions that require more than yes or no answer. [facility] reported pt oreinted x2 at baseline. Will obtain any additional information needed from medical record. Objective Past Medical History: Diagnosis Date Arthritis Hypertension Hypertension RA (rheumatoid arthritis) (HCC) Stroke (HCC) History reviewed. No pertinent surgical history. Social History Tobacco Use Smoking status: Former Current packs/day: 0.00 Types: Cigarettes Quit date: 2009 Years since quittin.8 Smokeless tobacco: Never Substance and Sexual Activity Drug use: Not Currently Types: Tobacco Sexual activity: None Alcohol Use: Not At Risk (04/20/2024) AUDIT-C Frequency of Alcohol Consumption: Never Average Number of Drinks: Patient does not drink Frequency of Binge Drinking: Never MEDICATION/LAB REVIEW: Scheduled Meds: clopidogreL, 75 mg, oral, Daily divalproex, 500 mg, oral, BID ergocalciferol, 50,000 Units, oral, Weekly FLUoxetine, 20 mg, oral, Daily insulin lispro, 0-4 Units, subcutaneous, Nightly insulin lispro, 0-5 Units, subcutaneous, TID with meals leflunomide, 20 mg, oral, Daily rivaroxaban, 15 mg, oral, BID with meals (bkfst, dinner) Followed by [START ON 05/15/2024] rivaroxaban, 20 mg, oral, Daily with dinner rosuvastatin, 20 mg, oral, Daily sodium chloride 0.9%, 0.5-20 mL, intra-catheter, Q8H ROBERTO tamsulosin, 0.4 mg, oral, Daily with evening meal verapamil SR, 180 mg, oral, Daily Continuous Infusions: PRN Meds: acetaminophen OR acetaminophen OR acetaminophen benzocaine-menthoL dextrose OR dextrose glucagon hydrOXYzine lubricant sodium chloride 0.9% Recent Labs Lab Units 04/27/24 0042 04/25/24 0642 04/24/24 0701 SODIUM mmol/L 142 < > 143 POTASSIUM PLASMA mmol/L 3.6 < > 4.1 CHLORIDE mmol/L 106 < > 109 CO2 mmol/L 24 < > 23 BUN SERUM mg/dL 15 < > 17 CREATININE mg/dL 0.70 < > 0.72 [id number] mL/min/1.73 m2 >90 < > >90 CALCIUM mg/dL 10.0 < > 9.3 ALBUMIN g/dL 4.0 < > 3.7 PHOSPHORUS PLASMA mg/dL 3.5 < > 2.9 MAGNESIUM mg/dL -- -- 2.3 < > = values in this interval not displayed. Recent Labs Lab Units 04/27/24 1148 04/27/24 0733 04/27/24 0042 04/26/24 1958 04/26/24 1621 04/26/24 1111 04/26/24 0711 GLUCOSE mg/dL -- -- 112 -- -- -- -- POC GLUCOSE MONITOR mg/dL 140 115 -- 124 121 136 125 No results found for: ALT , AST , BILIRUBIN , ALKPHOS , LIPASE Lab Results Component Value Date HGBA1C 6.2 (H) 04/20/2024 HDL 38 (L) 04/20/2024 LDLCALC 48 04/20/2024 CHOL 103 04/20/2024 TRIG 85 04/20/2024 NURSING ASSESSMENT: Last BM Date: 04/25/24 Theron Scale Score: 14 Skin Integrity: Blanchable redness Vital Signs BP: 149/82 Temp: 36.8 ??C (98.2 ??F) Pulse: 108 Resp: 16 SpO2: 96 % Intake/Output Summary (Last 24 hours) at 04/27/2024 1614 Last data filed at 04/27/2024 1000 Gross per 24 hour Intake 100 ml Output -- Net 100 ml Adult Malnutrition Scoring Tool (MST) What diet do you follow at home?: unknown Have You Recently Lost Weight Without Trying?: No Have you been eating poorly because of a decreased appetite?: No Malnutrition Screening Tool (MST) Score: 0 Hunger Screen - Admission Within the past 12 months the food we bought just didn't last and we didn't have money to get more.: Unable to assess Within the past 12 months we worried whether our food would run out before we got money to buy more.: Unable to assess Within the past 12 months, you worried that your food would run out before you got the money to buymore.: Never true Within the past 12 months, the food you bought just didn't last and you didn't have money to get more.: Never true Anthropometrics Weight: 56.3 kg (124 lb 1.6 oz) Admission Weight : 56.3 kg Weight Change: 0.00 kg (0.00 lbs) IBW/kg (Calculated) : 52.2 kg Height: 160 cm (5' 3 ) Weight in (lb) to have BMI = 25: 140.8 BMI (Calculated): 22 BMI Classification: BMI 18.5 - 24.9 Normal Weight Wt Readings from Last 10 Encounters: 04/20/24 56.3 kg (124 lb 1.6 oz) 04/20/24 58 kg (127 lb 13.9 oz) 07/26/13 60.3 kg (133 lb) 12/21/12 63.5 kg (140 lb) 08/24/12 64 kg (141 lb) ESTIMATED NEEDS: Total Energy Needs: 1324.8 kcal Total Energy Needs + Fever Factor: 1324.8 Equation Chosen to Use [place]: Ed Xiongmichelle Activity Factor: 1.2 Weight Used for Equation Calculations (RD Determined): 58 kg (127 lb 13.9 oz) . Total Protein Estimated Needs (gm): 67.55 Protein Needs Based on g/k.2 Type of Weight Used for Estimated Protein : Current Total Fluid Estimated Needs: 1407.28 Fluid Needs Based on : 25 ml/kg Type of Weight Used for Estimated Fluid Needs: Current Total Fluid Estimated Needs Comments:: Adult minimum 1500 mL Dietary Orders (From admission, onward) Start Ordered 04/27/24 1539 Oral Nutrition Supplements (MHB/MHE) Select Supplement: Ensure High Protein - Vanilla, Ensure High Protein - Chocolate, Glucerna - [place]; Quantity (# of cans): 1 can All Meals Comments: Rotate flavors please. Question Answer Comment (MHB/MHE) Select Supplement: Ensure High Protein - Vanilla (MHB/MHE) Select Supplement: Ensure High Protein - Chocolate (MHB/MHE) Select Supplement: Glucerna - [place] Quantity (# of cans): 1 can 04/27/24 1538 04/25/24 1251 Diet message Once (Routine) Comments: Please send another option besides red sauce. Thanks. 04/25/24 1250 04/24/24 1028 Diet message Once (Routine) Comments: I tried to call. But family asking if you see any glasses on patient tray yesterday.ty 04/24/24 1028 04/22/24 1243 Diet message Once (Routine) Comments: Please send tray to room. Pt no longer NPO. 04/22/24 1242 04/22/24 1242 Adult Diet Restricted; Mechanical Soft Diet effective now Question Answer Comment (MHB/MHE) Diet type Restricted Modified Consistency: Mechanical Soft 04/22/24 1242 04/21/24 1132 Diet message Once (Routine) Comments: Please include chocolate ensure with meals. 04/21/24 1132 04/20/24 2100 Bedtime snack At bedtime Comments: If bedtime BG is less than 100mg/dl, give patient a 15 gram carbohydrate snack. 04/20/24 0711 Allergies: Reviewed. IMPRESSION: Screened at risk for LOS x7 days. Visited pt at bedside, had some difficulties answering questions.Residing at [facility]. Reports eating well there, 3x daily. Reports having an okay appetite. PO intake ranging from 25-75% of meals during admission. Pt unsure how much she weighs. Unable touse documented weights to determine significant weight change as data not applicable for time frame. NFPE performed with pt consent, no evidence of wasting noted. Ordered Ensure HP TID. Provides 160 kcals and 16 g protein per serving. Provide encouragement and assistance at meal times as needed. Diet order appropriate. Last BM: 04/27 per EMR. Dc pending hospital course. Will continue to monitor. ASPEN MALNUTRITION ASSESSMENT: Date of completion: 04/27/24 ASPEN/AND Malnutrition Screening: Patient does not meet malnutrition criteria NUTRITION FOCUSED PHYSICAL EXAM: Completed, no signs of wasting noted. NUTRITION DIAGNOSIS: Nutrition Diagnosis 1: Inadequate oral intake Related to: Chronic illness/injury, Altered mental status Evidenced by: Patient interview, Reduced functional status, Need for modified consistency diet INTERVENTION(S): Summary: Encouragement, NFPE, Modify supplement, Initial assessment GOAL(S): Diet consistency appropriate for patient needs during stay, Tolerance of medical food supplement bynext assessment, Oral intake to meet 75% estimated nutritional needs by next assessment MONITORING/EVALUATION: Appetite, Discharge plans, Labs, Plan of care, PO intake, I/O, Supplement tolerance, Weight changes Diet Instructions IDDSI Level 5, Minced and Moist (Mechanical soft with ground meat diet) A level 5 minced & moist diet is prescribed to patients who are unable to bite foods, have painor difficulty chewing foods, or easily tire when chewing foods. Foods in this diet are served minced, soft, and moist with food pieces no larger than 4 mm wide x 15 mm long. Tips Prepare foods to make them soft, tender and moist. Some foods may be difficult to mince to the appropriate size. If they cannot be finely minced, it is best to puree these foods. Add gravy, sauce, vegetable juice, cooking water, fruit juice, milk, or [id number] while cookingto make foods moist. Serve foods in thick enough liquids that help hold the food together, coat the food and so the liquid does not run off the food. Thicken liquids to the consistency recommended by your clinician. Strain the liquid or blend it in so the food is one consistency. Some strategies: Drain milk from cereal Drain juice or syrup from canned fruit Create a teri from water and flour to thicken the broth, gravy, or sauce from soups, stews, and casseroles Monitor leftover foods while reheating to make sure they don???t form a tough outer crust that could make the food harder to eat. Call inpatient dietitian office at [facility] in [place] with any nutrition-related questions or concerns ([phone]). Thank you! Senia Kong RD * Giancarlo Durant MD - 04/27/2024 12:57 PM CDT General Medicine Daily Progress SUBJECTIVE Chief complaint of Pt w recent CVA w L UE and LLE weakness, HTN, DM, RA, presents to OSH ED from rehab for AMS 1-2 days. CTH concerning for new cva, also being treated for UTI w cefdinir Neuro consulted Placed on rocephin overnight MRI resulted Pt has had event monitoring november/December 2023, sinus rhythm, no afib, flutter mentioned see care everywhere Will request UA.Urine cx result from [place] [facility] re[facility] Husbands states fernandez placed in the last week or so Pt deny dysuria, discomfort w urination Major cva in January and in mar, was sjust transferred to rehab after stroke teated at [place] [facility] [place]. LUE LLE paresis Pt appear at baseline now this early afternoon according to Gbp was just restarted but taking as needed at rehab . Interval History: Vss CTA w significant posterior cirv disease Neuro recommended SHIVAM and extended cardiac monitoring In room w , supposed to have loop recorder placed this wk in [place] Has L ankle mvmt > L knee, hip mvmt, L hand shop director soft, able to roll elbow and was observed to bring L hand to her glasses w/o her realizing during therapy session today Though pt complains of pain w L sided mvmt 04/22 Vss EEG w L temporal discharge SHIVAM td w significant atherosclerotic dz descending aorta Brother in room 04/23 Vss SHIVAM w significant amt of atherosclerotic dz, mobile atheroma in descending aorta and arch, labml's excresence in aortic valve cusps CTA CAP recommended/ordered.resulted-infrarenal abdom aortic aneurysm 3cm, severe stenosis of SMA, R renal artery, L common carotid origin, Data Analytics Architect and CTS consulted. Recommend anticoagulation when ok from neuro, CTS to see Pt needs repeated encouragement for eating/drinking, does better with family nearby. Lots of anxiety, even w family here Urine from OSH w enterococcus, rocephin switched to ampicillin Requested further records for blood cx and Urine cx w sensitivty if available Questionable Urinary retention resoled prior to straight cath last night Pt in room w , calm No abdom pain w eating 04/24 vss Seen by CTS- not indication for surgery, recommended vascular evaluation Cards now recommending considering AC Carotid Us pending In room w , calm, pleasant 04/25 CTH repeatde no hemorrhagic conversion Started on xarelto Labs stable will space them out Vascular consult td for carotid disease In room by herself, calm 04/26 Vascular consult td [facility] labs Pt eating dinner with PCT 04/27/2024 Interval history I saw the patient for the 1st time today she is awake confused she has think in her rehab. She had bowel movement yesterday. Does not seem to be in pain. Her blood pressure and heart rate is increased OBJECTIVE Vitals: 24hr Min/Max: Temp Min: 36.5 ??C (97.7 ??F) Max: 37 ??C (98.6 ??F) Pulse Min: 92 Max: 107 BP Min: 130/92 Max: 160/82 Resp Min: 16 Max: 20 SpO2 Min: 93 % Max: 97 % Most Recent : Vitals: 04/27/24 1148 BP: 160/82 Pulse: 101 Resp: 17 Temp: 37 ??C (98.6 ??F) SpO2: 97% I/O last 2 completed shifts: In: 340 [P.O.:340] Out: - I/O this shift: In: 100 [P.O.:100] Out: - Physical Exam: General Exam: In no acute distress Skin: Dry, Warm. ABSENT: Jaundice, Rash Head: Atraumatic, Normocephalic Ears, Nose, Mouth, Throat: Ext. ears & nose normal, Moist mucous membranes Cardiovascular: Normal range, Regular rhythm, S1S2 normal. ABSENT: Edema Respiratory: CTA bilaterally, Effort normal ABSENT: Crackles, Rhonchi Abdomen: Bowel sounds present, Soft. ABSENT: Mass, Tenderness, Distention Musculoskeletal/Extremities: Joints normal Neurological: poor vision, intact in RLQ. Overall decr motor function in L side, worse in LLE, has resistance in LUE, 3/5 hand shop director Psychiatric: Affect appropriate, Alert Psychiatric - Orientation: Oriented to: Time, Place, Person Lab/Current Medication Review: Recent Results (from the past 24 hour(s)) POCT glucose Collection Time: 04/26/24 4:21 PM Result Value Ref Range Glucose, POC 121 70 - 199 mg/dL Glucose comment 1 Use This Result POCT glucose Collection Time: 04/26/24 7:58 PM Result Value Ref Range Glucose, POC 124 70 - 199 mg/dL Glucose comment 1 Use This Result CBC with auto differential Collection Time: 04/27/24 12:42 AM Result Value Ref Range WBC 10.0 (H) 3.8 - 9.9 K/cumm Hgb 9.4 (L) 11.9 - 15.5 g/dL Hct 29.5 (L) 35.6 - 45.5 % Plt 270 150 - 400 K/cumm MPV 10.8 9.1 - 12.3 fL RBC 3.43 (L) 3.90 - 5.20 M/cumm MCV 86.0 81.3 - 96.4 fL MCH 27.4 27.1 - 33.3 pg MCHC 31.9 (L) 32.3 - 35.7 g/dL RDW CV 14.8 11.1 - 14.9 % RDW SD 46.2 35.7 - 48.1 fL NRBC abs 0.00 0.00 - 0.01 K/cumm Renal function panel Collection Time: 04/27/24 12:42 AM Result Value Ref Range Sodium 142 135 - 145 mmol/L Potassium, pl 3.6 3.3 - 4.9 mmol/L Chloride 106 97 - 110 mmol/L CO2 24 22 - 32 mmol/L Anion gap 12 2 - 15 mmol/L BUN 15 6 - 25 mg/dL Creatinine 0.70 0.60 - 1.10 mg/dL Glucose 112 70 - 199 mg/dL Calcium 10.0 8.5 - 10.3 mg/dL Phosphorus, pl 3.5 2.3 - 4.5 mg/dL Albumin 4.0 3.5 - 5.0 g/dL Differential, auto Collection Time: 04/27/24 12:42 AM Result Value Ref Range Neutrophil abs 6.3 1.5 - 6.5 K/cumm Imm gran abs 0.1 0.0 - 0.1 K/cumm Lymphocyte abs 2.1 0.8 - 3.3 K/cumm Monocyte abs 0.8 0.2 - 0.8 K/cumm Eosinophil abs 0.6 (H) 0.0 - 0.5 K/cumm Basophil abs 0.1 0.0 - 0.1 K/cumm Neutrophil pct 62.7 % Imm gran pct 1.4 % Lymphocyte pct 21.0 % Monocyte pct 8.1 % Eosinophil pct 5.6 % Basophil pct 1.2 % eGFR Collection Time: 04/27/24 12:42 AM Result Value Ref Range eGFR >90 >=60 mL/min/1.73 m2 POCT glucose Collection Time: 04/27/24 7:33 AM Result Value Ref Range Glucose, POC 115 70 - 199 mg/dL Glucose comment 1 Use This Result POCT glucose Collection Time: 04/27/24 11:48 AM Result Value Ref Range Glucose, POC 140 70 - 199 mg/dL Glucose comment 1 Use This Result CTA Head Neck W WO Contrast Result Date: 04/20/2024 Narrative: EXAM DESCRIPTION: CTA HEAD NECK W WO CONTRAST REASON FOR STUDY: Acute altered mental status for 2 days in a patient reportedly being treated for UTI. Provided focal neurologic deficits. Noprovided history of trauma. 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 No provided surgical history. TECHNIQUE: Axial images were first obtained through the brain without contrast. Axial dynamic scanning technique with dynamic contrast enhancement through the intracranial and extracranial carotid and vertebral arteries. Multiplanar reconstruction. All stenosis measurements are based on NASCET criteria.3D MIP images rendered on scanning unit and reviewed at time of interpretation. Automated exposure control was used as a dose optimization technique for this examination. CONTRAST TYPE/DOSE: 100 mL Optiray 350 injected via peripheral IV site without reported incident. COMPARISON: MRI brain without contrast performed earlier same day FINDINGS: BRAIN: No CT evidence of acute intracranial hemorrhage or increased intracranial pressure. Please reference MRI brain performed earlier same day for detailed evaluation of bilateral, [id number], acute infarcts superimposed on constellation of chronic findings. INTRACRANIAL VESSELS [place]: Occlusion of the P2 segment of the rightPCA. Patent left PACKAGE WINDER, noting variable, to include severe, stenosis along its course. The anterior, middle, posterior cerebral arteries are all patent. No aneurysm. POSTERIOR CIRCULATION: Vertebral arteries as below. Patent basilar artery. No aneurysm. BRAIN: No gross evidence of enhancing intracranial lesions. CAROTID CTA RIGHT CAROTIDS: No occlusion or evidence of dissection of the right carotidarterial system, noting calcific atherosclerosis of the bifurcation/bulb produces approximately 55-60% stenosis of the right ICA. LEFT CAROTIDS: No occlusion, hemodynamically significant stenosis, orevidence of dissection of the left carotid arterial system. LEFT VERTEBRAL: Occlusion of the left vertebral artery at the expected point of takeoff with slight scattered diminutive caliber reconstitution along the V2 to V3 segments prior to further occlusion. RIGHT VERTEBRAL: Patent with calcific atherosclerosis producing at least 50% stenosis of the takeoff of the right vertebral artery with variable stenosis along its course. AORTIC ARCH: Three-vessel aortic arch. Patent subclavian arteries with calcific atherosclerosis producing variable stenosis. NECK SOFT TISSUE: No acute abnormality. Nothyroid nodule greater than 1 cm. INCLUDED LUNGS: Biapical pleuroparenchymal scarring. OTHER: No other significant finding. IMPRESSION: No CT evidence of acute intracranial hemorrhage or increased intracranial pressure. Please reference MRI brain performed earlier same day for detailed evaluation of bilateral, [id number], acute infarcts superimposed on constellation of chronic findings. Occlusion of the P2 segment of the right PACKAGE WINDER; patent left PACKAGE WINDER with variable, to include severe, s tenosis along its course. Occlusion of the left vertebral artery at the expected point of takeoff with slight scattered diminutive caliber reconstitution along the V2 and V3 segments prior to furtherocclusion. Patent right vertebral artery with calcific atherosclerosis producing at least 50% stenosis of the takeoff of the right vertebral artery and variable stenosis along its course. Patent bilat eral carotid arterial systems, with calcific atherosclerosis producing approximately 55-60% stenosis of the right ICA, without overt CT angiographic evidence of dissection. These significant findingswere reported by telephone to patient's nurse Cris for ordering provider Arpan Rodgers on 04/20/2024 at 1554 . THIS IS AN ELECTRONICALLY VERIFIED FINAL REPORT 04/20/2024 3:57 PM - Electronically signed by Steven VALENZUELA T: Report ID:[id number] Reading Location: [place] [id number] MRI Brain WO Contrast Result Date: 04/20/2024 Narrative: EXAM DESCRIPTION: MRI BRAIN WO CONTRAST REASON FOR STUDY: Hx of recent CVA, pt has increased weakness and decreased mental status. TECHNIQUE: Multiplanar imaging includes non-contrasted T1, T2, FLAIR, and diffusion with ADC map sequences. Additional sequence(s) sensitive to blood products. Images stored on PACS. COMPARISON: Head CT [...] EXTRAAXIAL SPACES: No abnormal extra-axial fluid collection. Normal size ventricles. BRAIN VOLUME: Tlmx-rh-fstrzuvs cerebral volume loss. PITUITARY: Unremarkable. VASCULATURE: Skull base flow voids are present. ORBITS: No masses. Globes normal. PARANASAL SINUSES AND MASTOIDS: No significant mucosal thickening or fluid. OTHER: No other significant finding. IMPRESSION: Large [...] findings were reported by telephone to ELLIOT Bloom on 04/20/2024 at 12:35 p.m. THIS IS AN ELECTRONICALLY VERIFIED FINAL REPORT 04/20/2024 12:44 PM - Electronically signed by Angel Kyle M.D. AG T: Report ID: [id number] Reading Location: [id number] Neuro CT Outside Reference Result Date: 04/20/2024 Narrative: This order has been auto-finalized and does not contain a result. XR Chest 1 View Result Date: 04/20/2024 Narrative: EXAM DESCRIPTION: XR CHEST 1 VIEW REASON FOR STUDY: altered mental status Pt order sts: ams Pt chart sts: HTN; Hyperlipd. Recent stroke and discharged to rehab TECHNIQUE: 1 radiographic view(s) of the chest. COMPARISON: No prior studies are available for comparison at time of this dictation. FINDINGS: LUNGS: No focal opacity, pleural effusion, or pneumothorax. HEART/MEDIASTINUM: Cardiac silhouette normal in size. Mediastinal and hilar contours appear normal. LINES/TUBES: None. BONES:No acute osseous abnormality. IMPRESSION: No acute pulmonary process. THIS IS AN ELECTRONICALLY VERIFIED FINAL REPORT 04/20/2024 9:03 AM - Electronically signed by Johan Wilson M.D. MM T: Report ID: [id number] Reading Location: [id number] Current Facility-Administered Medications Medication Dose Route Frequency Provider Last Rate Last Admin acetaminophen (TYLENOL) tablet 650 mg 650 mg oral Q6H PRN Jammie Dickson, SURGICAL TERRITORY MANAGER 650 mg at 04/26/24 0423 Or acetaminophen (TYLENOL) 32 mg/mL oral liquid 650 mg 650 mg feeding tube Q6H PRN KristenL. Dickson NP Or acetaminophen (TYLENOL) suppository 650 mg 650 mg rectal Q6H PRN Jammie Dickson NP benzocaine-menthoL (CHLORASEPTIC) lozenge 1 lozenge 1 lozenge mouth/throat Q4H PRN Sosa Andino MD 1 lozenge at 04/25/242017 clopidogreL (PLAVIX) tablet 75 mg 75 mg oral Daily Sosa Andino MD 75 mg at 04/27/24 0835 dextrose (GLUTOSE) 40 % gel 15 g 15 g oral Q15 Min PRN Jammie Dickson NP Or dextrose (D10W) 10% bolus 250 mL 250 mL intravenous Q15 Min PRN Jammie Dickson NP divalproex (DEPAKOTE SPRINKLE) sprinkle capsule 500 mg 500 mg oral BID Sailaja Bloom PA 500 mg at 04/27/24 0835 ergocalciferol (VITAMIN D) capsule 50,000 Units 50,000 Units oral Weekly Sosa Andino MD 50,000 Units at 04/27/24 0907 FLUoxetine (PROzac) capsule 20 mg 20 mg oral Daily Sosa Andino MD 20 mg at 04/27/24 0834 glucagon injection 1 mg 1 mg intramuscular Q30 Min PRN Jammie Dickson NP hydrOXYzine (ATARAX) tablet 25 mg 25 mg oral Q6H PRN Sosa Andino MD 25 mg at 04/26/24 0423 insulin lispro (HumaLOG, ADMELOG) 100 unit/mL injection 0-4 Units 0-4 Units subcutaneous Nightly Jammie Dickson NP insulin lispro (HumaLOG, ADMELOG) 100 unit/mL injection 0-5 Units 0-5 Units subcutaneous TID with meals Jammie Dickson NP 1 Units at 04/22/24 1753 leflunomide (ARAVA) tablet 20 mg 20 mg oral Daily Sosa Andino MD 20 mg at 04/27/24 0835 peg [id number] (ARTIFICAL TEARS) 1-0.2-0.2 % ophthalmic solution 1 drop 1 drop each eye TID PRN Sosa Andino MD 1 drop at 04/25/24 0922 rivaroxaban (XARELTO) tablet 15 mg 15 mg oral BID with meals (bkfst, dinner) Sosa Andino MD 15 mg at 04/27/24 0836 Followed by [START ON 05/15/2024] rivaroxaban (XARELTO) tablet 20 mg 20 mg oral Daily with dinner Sosa Andino MD rosuvastatin (CRESTOR) tablet 20 mg 20 mg oral Daily Jammie Dickson, SURGICAL TERRITORY MANAGER 20 mg at 04/27/24 0834 sodium chloride 0.9% flush 0.5-20 mL 0.5-20 mL intra-catheter Q8H ROBERTO Jammie Dickson, SURGICAL TERRITORY MANAGER 10mL at 04/27/24 1241 sodium chloride 0.9% flush 0.5-20 mL 0.5-20 mL intra-catheter PRN Jammie Dickson, SURGICAL TERRITORY MANAGER tamsulosin (FLOMAX) extended release capsule 0.4 mg 0.4 mg oral Daily with evening meal Giancarlo Durant MD verapamil SR (CALAN SR) extended release tablet 180 mg 180 mg oral Daily Giancarlo Durant MD 180mg at 04/27/24 1241 A/P: MDM Principal Problem: Altered mental status, unspecified altered mental status type Active Problems: HTN (hypertension) Hyperlipidemia Type 2 diabetes mellitus (HCC) UTI (urinary tract infection) CVA (cerebral vascular accident) (HCC) 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 Altered Mental Status Worsening CVA; post recent CVA with left sided hemiplegia (Apr 07, 2024): Severe atherosclerotic disease with mobile atheroma, lambl;s excresence L common carotid artery stenosis Transferred from OSH for AMS likely 2/2 Worsening CVA based 'n CT head vs UTI. -CXR ordered to r/o any infectious processes -MRI brain w new acute.subacute cva bilaterally; CTA as above -No recent ECHO results available (need requested from [facility]) -continue aspirin and statin currently, cardiology recommending full dose AC when ok from neuro-likely Thursday -Neurochecks 4hrs -Fall precautions; up with assistance -PT/OT/ST eval and tx -Dr Rodgers, Neurology consulted -cont tele -discussed w cardiology, SHIVAM done, will need extended cardiac monitoring, describes what sounds like event monitor use in the past, and now OSH requested loop monitor -CTA CAP ordered by rec's from cards/vascular -diffuse atherosclerotic dz. 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 Will discuss w neuro, recommended start AC, repeat CTH w.o hemorrhagic conversion. Xarelto started, continue w plavix. Aspirin dc'd -vascular consulted, recommended outpt f/up in 6 mon UTI: UA positive. >100 WBCs, 3+LEs -Urine culture showing enterococcus, rocephin-->ampicillin, will request from rehab sensitivities. Final cx with dallin, no enterococcus, will dc ampicillin, pt does report intermittent vaginal itching, will give fluconazole -dc IVFs -Strict intake and output -dc fernandez - voiding spontaneously -final blood culture from [facility] also ngtd, appreciate staff obtaining records Type 2DM: -HgbA1c 6.2 -Blood glucose monitoring ACHS. -SSI ordered -Hold dose of metformin HTN: -Hold antihypertensives to avoid hypotension -resume when appropriate -routine VS; monitor BP closely Voice recognition software [employer] Fluency Direct was used dictate and transcribe this document. Project Manager variances may occur. Despite proofreading, typographical errors may occur. For patients or family members viewing this note through [employer]: This note was written as a communication tool between healthcare providers and may contain technical language, terminology and abbreviations that is difficult to interpret without advanced medical training. If you have questions or concerns regarding what is written in this note, please request to speak with the primary medical team taking care of you or your family member. 04/27/2024 Current medical problems 1 multiple old strokes 2 new stroke with left-sided weakness 3 UTI Enterococcus and Dallin. Completed ampicillin. Given fluconazole. 4 bilateral carotid stenosis unlikely the source of her stroke as her stroke was in the posterior circulation 5 hypertension and diabetes 6 past medical history of old strokes, rheumatoid arthritis 7 abnormal EEG possible stroke Plan Continue anticoagulation started on Xarelto during this admission for recurrent stroke Continue Plavix 75 mg daily Continue Depakote started to help with her panic attack as well Restart home verapamil today Restart home Flomax today Monitor blood pressure and vital signs for the next 24 hours Possible discharge to [facility] in the next 24 hours Follow-up with vascular surgery as outpatient Follow up with Neurology as outpatient Follow-up with Cardiology as outpatient Giancarlo Durant MD 04/27/2024 12:57 PM * Annika Ruggiero, HOOD - 04/27/2024 9:22 AM CDT Occupational Therapy 04/27/24 0923 General Session Type Treatment OT Received On 04/27/24 Safe Environment Arm band checked;Patient found in supine;Gait belt utilized for all out of bed mobility Subjective Agreeable to Therapy Subjective Comment Hello Family/Caregiver Present Yes (Spouse) Pain Assessment Pain Assessment No/denies pain Static Sitting Balance Static Sitting-Balance Support Bilateral upper extremity supported Static Sitting-Sitting Surface Bed Static Sitting-Level of Assistance Minimum assistance Static Sitting-Comment/# of Minutes Pt required cueing to lean to R due to pt leaning to L Static Standing Balance Static Standing-Balance Support Bilateral upper extremity supported Static Standing-Standing Surface Floor Static Standing-Level of Assistance (MOD assist x2) Static Standing-Comment/# of Minutes Pt able to stand approx 15 seconds ADL ADL Comments Pt able to wash her face with SBA and MOD cueing to wash all parts of her face. Bed Mobility 1 Bed Mobility From 1 Rolling right Bed Mobility Type 1 To and from Bed Mobility to 1 Rolling left Level of Assistance 1 Maximum Assist Bed Mobility 2 Bed Mobility From 2 Supine Bed Mobility Type 2 To Bed Mobility to 2 Edge of Bed Level of Assistance 2 (DEP x2) Transfer 1 Transfer From 1 Sit Transfer Type 1 To and from Transfer to 1 Stand Transfer Device 1 No device;Hand held assist Transfer Level of Assistance 1 (MOD assist x2) Transfers 2 Transfer From 2 Bed Transfer Type 2 To Transfer to 2 Chair with arms Technique 2 Stand pivot Transfer Device 2 No device;Hand held assist Transfer Level of Assistance 2 (MAX assist x2) Therapeutic Exercise - ROM/STRENGTH Other Exercise PROM, LUE, in all planes and joints of movement. Activity Tolerance Endurance Tolerates 10 - 20 min activity with multiple rests Other Comments Comments Had pt scan room for various things focusing on items to her L. Pt required verbal and visual cueing on looking to far left as well as bringing eyes to far left. Had pt perform dynamic reaching tasks while sitting up in chair using RUE. Pt able to perform task with MIN cueing for directionfollow and cueing to reach L of midline. Safe Environment End of Therapy Session Safe Environment End of Therapy Session Patient left in recliner;Chair alarm in place and activated;RN notified;Call light within reach;Overbed table within reach; Spouse at bedside Assessment Prognosis Fair Plan Plan Continue with current plan Recommendation/Plan OT Recommendation (S) Custodial Facility Patient at high risk for Falls;Readmission;Injury due to decreased ability to care for self;Injury due to reduced functional status;Injury at home as patient has not returned to prior level of function;Injury due to impaired cognition;Injury due to balance deficits Recommend SNF due to Risk of injury at home;Unable to safely care for self in the home;Skilled therapy needed to address care for self in the home;Skilled therapy needed to address functional deficits;Skilled therapy needed for patient to return to prior level of independence Progress during current admission Slow progress, cognitive deficits Time Calculation Start Time 09 Stop Time 0946 Time Calculation (min) 24 min Reason for interruption Co Tx with Melissa Dobbins PTA Educated the patient to the role of occupational therapy, plan of care, goals of therapy, rationalefor progressing mobility and use of call light. Poor understanding. RN notified of session outcome. Patient was left in recliner with all needs met and equipment intact. Safety measures include handoff to nurse/tech, chair alarm activated, oriented to call light and placed within reach, and personal items within reach. Mobility and ADL status posted at bedside and within medical record. Principal Investigator Services Utilized: NO Patient is identified by name and date of on this visit. Cotx with Melissa Dobbins PTA for safety of patient and staff due to current diagnosis, medical status,and current level of functional performance. * Melissa Figueroa PTA - 04/27/2024 9:22 AM CDT Physical Therapy 04/27/24 0922 PT Last Visit Session Type Treatment Safe Environment Arm band checked;Patient found in supine;Session completed bedside;Gait belt utilized for all out of bed mobility Subjective Agreeable to Therapy Family/Caregiver Present Yes () Precautions Precautions Bed/Chair Alarm;Fall risk Pain Assessment Pain Assessment No/denies pain Cognition Arousal/Alertness Alert Current communication Impaired - Global Aphasia Orientation Oriented to person Seated Seated-Exercises Lower extremity Reps/Sets 10 Seated-Motion AROM;AAROM;PROM Seated-Exercise Comments L was PROM, R was A,AA to PROM Bed Mobility 1 Bed Mobility From 1 Rolling right Bed Mobility Type 1 To and from Bed Mobility to 1 Rolling left Level of Assistance 1 Maximum Assist;Minimal verbal cues Bed Mobility 2 Bed Mobility From 2 Supine Bed Mobility Type 2 To Bed Mobility to 2 Edge of Bed Level of Assistance 2 Dependent;Minimal verbal cues (+2) Transfer 1 Transfer From 1 Sit Transfer Type 1 To and from Transfer to 1 Stand Transfer Device 1 No device;Hand held assist Transfer Level of Assistance 1 Moderate verbal cues;Moderate Assist (+2) Transfers 2 Transfer From 2 Bed Transfer Type 2 To Transfer to 2 Chair with arms Technique 2 Stand pivot Transfer Device 2 No device;Hand held assist Transfer Level of Assistance 2 Maximum Assist;Moderate verbal cues (+2) Trials/Comments 2 Pt sat EOB with sba to min assist for balance. Pt held onto the rails and would breifly let go and still keep balance for a few seconds before leaning to the L and back. Pt stood and attempted to take a step but was not able. Pt then sat to rest and then stood again and pivoted tothe chair. Pt performed ex's in chair needed vc's and tactile cues. Alarm on and waffle cushion in chair. Safe Environment End of Therapy Session Safe Environment End of Therapy Session Patient left in recliner;Chair alarm in place and activated;Call light within reach;Overbed table within reach Plan Plan Continue with current plan Recommendation/Plan PT Recommendation/Plan (S) Custodial Facility (LPT [place] ok'd the change to snf) Patient at high risk for Falls;Readmission;Injury due to decreased ability to care for self Recommend SNF due to Risk of injury at home;Skilled therapy needed to address care for self in the home;Unable to safely care for self in the home;Skilled therapy needed to address functional deficits;Skilled therapy needed for patient to return to prior level of independence Time Calculation Start Time 09 Stop Time 0946 Time Calculation (min) 24 min Cotx with ERWIN Roblero for safety of pt and staff due to current diagnosis, medical status, and unknown level of functional performance. Principal Investigator Services Utilized: NO Educated the patient to the role of physical therapy, plan of care, goals of therapy, rationale forprogressing mobility Patient was left with all needs met and equipment intact. Mobility and ADL status posted at bedsideand within medical record. Multi-Disciplinary Problems (from Physical Therapy) Active Problems Problem: PT [facility] Start Date: 04/20/24 Goal Start Date Expected End Date End Date PT LTG - [facility] 1 04/20/24 05/04/24 -- Goal Details: Pt will transfer supine<>sit with min assist x 1 Goal Start Date Expected End Date End Date PT [facility] - [facility] 2 04/20/24 05/04/24 -- Goal Details: Pt will transfer bed<>chair with assistive device as needed with min assist x 1 Goal Start Date Expected End Date End Date PT [facility] - [facility] 3 04/20/24 05/04/24 -- Goal Details: Pt will sit at edge of bed with supervision for balance, x 5 minutes Goal Start Date Expected End Date End Date PT [facility] - [facility] 4 04/20/24 05/04/24 -- Goal Details: Pt will ambulate 25 feet with assistive device as needed with min assist x 1 Goal Start Date Expected End Date End Date PT [facility] - [facility] 5 04/20/24 05/04/24 -- Goal Details: Pt will perform BLE seated therex x 10 reps each with supervision Pt progressing slowly * Annika Ruggiero COTA - 04/26/2024 9:45 AM CDT Occupational Therapy 04/26/24 0946 General Session Type Treatment OT Received On 04/26/24 Safe Environment Arm band checked;Patient found in supine;Gait belt utilized for all out of bed mobility Subjective Agreeable to Therapy Subjective Comment I am not hungry Pain Assessment Pain Assessment No/denies pain Static Sitting Balance Static Sitting-Balance Support Bilateral upper extremity supported;Feet supported Static Sitting-Sitting Surface Bed Static Sitting-Level of Assistance Contact guard;Minimum assistance Static Sitting-Comment/# of Minutes Pt able to sit EOB x3 min ADL ADL Comments Pt required MAX assist for pericare as well as adult diaper mgmt. MAX assist to don socks. Bed Mobility 1 Bed Mobility From 1 Rolling right Bed Mobility Type 1 To and from Bed Mobility to 1 Rolling left Level of Assistance 1 (DEP x2) Bed Mobility 2 Bed Mobility From 2 Supine Bed Mobility Type 2 To Bed Mobility to 2 Edge of Bed Level of Assistance 2 (DEP x2) Transfer 1 Transfer From 1 Sit Transfer Type 1 To and from Transfer to 1 Stand Transfer Device 1 No device;Hand held assist Transfer Level of Assistance 1 (MAX assist x2) Transfers 2 Transfer From 2 Bed Transfer Type 2 To Transfer to 2 Chair with arms Technique 2 Stand pivot Transfer Device 2 No device;Hand held assist Transfer Level of Assistance 2 (MAX assist x2) Trials/Comments 2 Pt able to bear weight through LEs but unable to advance feet Therapeutic Exercise - ROM/STRENGTH Other Exercise PROM, LUE, in all planes and joints of movement. Cognition Cognition Comments Pt unable to answer any orientation ?s this session. Pt shows poor command follow with all tasks Overall Cognitive Status Impaired Arousal/Alertness Alert Attention Span Attends with cues to redirect;Difficulty attending to directions Memory Decreased short term memory;Decreased recall of recent events;Decreased recall of biographical information Current communication Impaired - Global Aphasia Orientation Oriented to person Following Commands Unable to follow commands Safety Judgment Unable to assess Awareness of Errors Unable to assess Activity Tolerance Endurance Tolerates 10 - 20 min activity with multiple rests Safe Environment End of Therapy Session Safe Environment End of Therapy Session Patient left in recliner;Chair alarm in place and activated;RN notified;Call light within reach;Overbed table within reach Assessment Prognosis Fair Plan Plan Continue with current plan Recommendation/Plan OT Recommendation (S) Custodial Facility Patient at high risk for Falls;Readmission;Injury due to decreased ability to care for self;Injury due to reduced functional status;Injury due to balance deficits;Injury at home as patient has not returned to prior level of function;Injury due to impaired cognition Recommend SNF due to Risk of injury at home;Unable to safely care for self in the home;Skilled therapy needed to address care for self in the home;Skilled therapy needed to address functional deficits;Skilled therapy needed for patient to return to prior level of independence Progress during current admission Slow progress, cognitive deficits Time Calculation Start Time 9348 Stop Time 1008 Time Calculation (min) 23 min Reason for interruption Co Tx with Melissa Dobbins PTA Educated the patient to the role of occupational therapy, plan of care, goals of therapy, rationalefor progressing mobility and use of call light. Poor understanding. RN notified of session outcome. Patient was left in recliner with all needs met and equipment intact. Safety measures include handoff to nurse/tech, chair alarm activated, oriented to call light and placed within reach, and personal items within reach. Mobility and ADL status posted at bedside and within medical record. Principal Investigator Services Utilized: NO Patient is identified by name and date of on this visit. Cotx with Melissa Dobbins PTA for safety of patient and staff due to current diagnosis, medical status,and current level of functional performance . * Melissa Figueroa PTA - 04/26/2024 9:45 AM CDT Physical Therapy 04/26/24 0945 PT Last Visit Session Type Treatment Safe Environment Arm band checked;Patient found in supine;Session completed bedside;Gait belt utilized for all out of bed mobility Subjective Agreeable to Therapy Family/Caregiver Present Yes () Precautions Precautions Bed/Chair Alarm;Fall risk Pain Assessment Pain Assessment No/denies pain Cognition Arousal/Alertness Alert Orientation Oriented to person Seated Seated-Exercises Lower extremity Reps/Sets 10 Seated-Motion AROM;AAROM;PROM Seated-Exercise Comments L was PROM, R was A,AA to PROM Bed Mobility 1 Bed Mobility From 1 Rolling right Bed Mobility Type 1 To and from Bed Mobility to 1 Rolling left Level of Assistance 1 Dependent (+2) Bed Mobility 2 Bed Mobility From 2 Supine Bed Mobility Type 2 To Bed Mobility to 2 Edge of Bed Level of Assistance 2 Dependent (+2) Transfer 1 Transfer From 1 Sit Transfer Type 1 To and from Transfer to 1 Stand Transfer Device 1 No device;Hand held assist Transfer Level of Assistance 1 Maximum Assist;Moderate verbal cues (+2) Transfers 2 Transfer From 2 Bed Transfer Type 2 To Transfer to 2 Chair with arms Technique 2 Stand pivot Transfer Device 2 No device;Hand held assist Transfer Level of Assistance 2 Maximum Assist;Moderate verbal cues (+2) Trials/Comments 2 Pt was soiled cleaned and put depends on. Pt then sat EOB with cga-min for balance and held onto the rail. Sat for about 3 min then stood and was able to bear the weight for the pivot transfer. Alarm and waffle cushion Safe Environment End of Therapy Session Safe Environment End of Therapy Session Patient left in recliner;Chair alarm in place and activated;Call light within reach;Overbed table within reach Plan Plan Continue with current plan Recommendation/Plan PT Recommendation/Plan (S) Inpatient Rehab Facility Patient at high risk for Falls;Readmission;Injury due to decreased ability to care for self Recommend Inpatient Rehab/Acute Rehab due to Ability to actively participate in intensive therapy 3hours/day, 5 days/week or 900 minutes per week;Highly motivated to participate in therapy;Not at baseline due to impaired ability to complete ADLs;Impaired ability to complete functional mobility;Likely to return to the community at discharge with support system in place;Requires greater than 25% physical assistance with most mobility tasks;Requires greater than 25% physical assistance with most ADL tasks;Requires multiple therapy disciplines to address functional deficits Time Calculation Start Time 0945 Stop Time 1008 Time Calculation (min) 23 min Cotx with ERWIN Roblero for safety of pt and staff due to current diagnosis, medical status, and unknown level of functional performance. Principal Investigator Services Utilized: NO Educated the patient to the role of physical therapy, plan of care, goals of therapy, rationale forprogressing mobility Patient was left with all needs met and equipment intact. Mobility and ADL status posted at bedsideand within medical record. Multi-Disciplinary Problems (from Physical Therapy) Active Problems Problem: PT [facility] Start Date: 04/20/24 Goal Start Date Expected End Date End Date PT G - [facility] 1 04/20/24 05/04/24 -- Goal Details: Pt will transfer supine<>sit with min assist x 1progressing Goal Start Date Expected End Date End Date PT [facility] - [facility] 2 04/20/24 05/04/24 -- Goal Details: Pt will transfer bed<>chair with assistive device as needed with min assist x 1 Goal Start Date Expected End Date End Date PT [facility] - [facility] 3 04/20/24 05/04/24 -- Goal Details: Pt will sit at edge of bed with supervision for balance, x 5 minutes progressing Goal Start Date Expected End Date End Date PT LTG - [facility] 4 04/20/24 05/04/24 -- Goal Details: Pt will ambulate 25 feet with assistive device as needed with min assist x 1 not met Goal Start Date Expected End Date End Date PT LTG - [facility] 5 04/20/24 05/04/24 -- Goal Details: Pt will perform BLE seated therex x 10 reps each with supervision progressing * Sosa Andino MD - 04/26/2024 7:30 AM CDT General Medicine Daily Progress SUBJECTIVE Chief complaint of Pt w recent CVA w L UE and LLE weakness, HTN, DM, RA, presents to OSH ED from rehab for AMS 1-2 days. CTH concerning for new cva, also being treated for UTI w cefdinir Neuro consulted Placed on rocephin overnight MRI resulted Pt has had event monitoring november/December 2023, sinus rhythm, no afib, flutter mentioned see care everywhere Will request UA.Urine cx result from [facility] Husbands states fernandez placed in the last week or so Pt deny dysuria, discomfort w urination Major cva in January and in mar, was sjust transferred to rehab after stroke teated at [facility] in [place]. LUE LLE paresis Pt appear at baseline now this early afternoon according to Gbp was just restarted but taking as needed at rehab . Interval History: Vss CTA w significant posterior cirv disease Neuro recommended SHIVAM and extended cardiac monitoring In room w , supposed to have loop recorder placed this wk in [place] Has L ankle mvmt > L knee, hip mvmt, L hand shop director soft, able to roll elbow and was observed to bring L hand to her glasses w/o her realizing during therapy session today Though pt complains of pain w L sided mvmt 04/22 Vss EEG w L temporal discharge SHIVAM td w significant atherosclerotic dz descending aorta Brother in room 04/23 Vss SHIVAM w significant amt of atherosclerotic dz, mobile atheroma in descending aorta and arch, labml's excresence in aortic valve cusps CTA CAP recommended/ordered.resulted-infrarenal abdom aortic aneurysm 3cm, severe stenosis of SMA, R renal artery, L common carotid origin, Data Analytics Architect and CTS consulted. Recommend anticoagulation when ok from neuro, CTS to see Pt needs repeated encouragement for eating/drinking, does better with family nearby. Lots of anxiety, even w family here Urine from OSH w enterococcus, rocephin switched to ampicillin Requested further records for blood cx and Urine cx w sensitivty if available Questionable Urinary retention resoled prior to straight cath last night Pt in room w , luci No abdom pain w eating 04/24 vss Seen by CTS- not indication for surgery, recommended vascular evaluation Cards now recommending considering AC Carotid Us pending In room w , luci, pleasant 04/25 CTH repeatde no hemorrhagic conversion Started on xarelto Labs stable will space them out Vascular consult td for carotid disease In room by herself, calm 04/26 Vascular consult td [facility] labs Pt eating dinner with PCT OBJECTIVE Vitals: 24hr Min/Max: Temp Min: 36.5 ??C (97.7 ??F) Max: 36.8 ??C (98.2 ??F) Pulse Min: 83 Max: 109 BP Min: 128/78 Max: 172/92 Resp Min: 18 Max: 20 SpO2 Min: 93 % Max: 99 % Most Recent : Vitals: 04/26/24 0713 BP: (!) 172/92 Pulse: 83 Resp: 18 Temp: 36.6 ??C (97.9 ??F) SpO2: 97% I/O last 2 completed shifts: In: 660 [P.O.:440; I.V.:20; IV Piggyback:200] Out: - No intake/output data recorded. Physical Exam: General Exam: In no acute distress Skin: Dry, Warm. ABSENT: Jaundice, Rash Head: Atraumatic, Normocephalic Ears, Nose, Mouth, Throat: Ext. ears & nose normal, Moist mucous membranes Cardiovascular: Normal range, Regular rhythm, S1S2 normal. ABSENT: Edema Respiratory: CTA bilaterally, Effort normal ABSENT: Crackles, Rhonchi Abdomen: Bowel sounds present, Soft. ABSENT: Mass, Tenderness, Distention Musculoskeletal/Extremities: Joints normal Neurological: poor vision, intact in RLQ. Overall decr motor function in L side, worse in LLE, has resistance in LUE, 3/5 hand shop director Psychiatric: Affect appropriate, Alert Psychiatric - Orientation: Oriented to: Time, Place, Person Lab/Current Medication Review: Recent Results (from the past 24 hour(s)) POCT glucose Collection Time: 04/25/24 7:33 AM Result Value Ref Range Glucose, POC 120 70 - 199 mg/dL Glucose comment 1 Use This Result POCT glucose Collection Time: 04/25/24 11:14 AM Result Value Ref Range Glucose, POC 124 70 - 199 mg/dL Glucose comment 1 Use This Result POCT glucose Collection Time: 04/25/24 4:27 PM Result Value Ref Range Glucose, POC 128 70 - 199 mg/dL Glucose comment 1 Use This Result POCT glucose Collection Time: 04/25/24 8:23 PM Result Value Ref Range Glucose, POC 136 70 - 199 mg/dL POCT glucose Collection Time: 04/26/24 7:11 AM Result Value Ref Range Glucose, POC 125 70 - 199 mg/dL Glucose comment 1 Use This Result CTA Head Neck W WO Contrast Result Date: 04/20/2024 Narrative: EXAM DESCRIPTION: CTA HEAD NECK W WO CONTRAST REASON FOR STUDY: Acute altered mental status for 2 days in a patient reportedly being treated for UTI. Provided focal neurologic deficits. Noprovided history of trauma. 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 No provided surgical history. TECHNIQUE: Axial images were first obtained through the brain without contrast. Axial dynamic scanning technique with dynamic contrast enhancement through the intracranial and extracranial carotid and vertebral arteries. Multiplanar reconstruction. All stenosis measurements are based on NASCET criteria.3D MIP images rendered on scanning unit and reviewed at time of interpretation. Automated exposure control was used as a dose optimization technique for this examination. CONTRAST TYPE/DOSE: 100 mL Optiray 350 injected via peripheral IV site without reported incident. COMPARISON: MRI brain without contrast performed earlier same day FINDINGS: BRAIN: No CT evidence of acute intracranial hemorrhageor increased intracranial pressure. Please reference MRI brain performed earlier same day for detailed evaluation of bilateral, yisld-dxppwey-ihey-left, acute infarcts superimposed on constellation of chronic findings. 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 Patent left PACKAGE WINDER, noting variable, to include severe, stenosis along its course. The anterior, middle, posterior cerebral arteries are all patent. No aneurysm. POSTERIOR CIRCULATION: Vertebral arteries as below. Patent basilar artery. No aneurysm. BRAIN: No gross evidence of [...] VERTEBRAL: Patent with calcific atherosclerosis producing at least 50% stenosis of the takeoff of the right vertebral artery with variable stenosis along its course. AORTIC ARCH: Three-vessel aortic arch. Patent subclavian arteries with calcific atherosclerosis producing variable stenosis. NECK SOFT TISSUE: No acute abnormality. No thyroid nodule greater than 1 cm. INCLUDED LUNGS: Biapical pleuroparenchymal scarring. OTHER: No other significant finding. IMPRESSION: No CT evidence of acute intracranial hemorrhage or increased intracranial pressure. Please reference MRI brain performed earlier same day for detailed evaluation ofbilateral, jshkn-jikflqu-sqds-left, acute infarcts superimposed on constellation of chronic findings. 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 Occlusion of the left vertebral artery at the expected point of takeoff with slight scattered diminutive caliber reconstitution along the V2 and V3 segments prior to further occlusion. Patent right vertebral artery with calcific atherosclerosis producing at least 50% stenosis of the takeoff of the right vertebral artery and variable stenosis along its course. Patent bilate ral carotid arterial systems, with calcific atherosclerosis producing approximately 55-60% stenosisof the right ICA, without overt CT angiographic evidence of dissection. These significant findings were reported by telephone to patient's nurse Cris for ordering provider Arpan Rodgers on 04/20/2024 at 1554 . THIS IS AN ELECTRONICALLY VERIFIED FINAL REPORT 04/20/2024 3:57 PM - Electronically signed by Steven VALENZUELA T: Report ID: [id number] Reading Location: [id number] MRI Brain WO Contrast Result Date: 04/20/2024 Narrative: EXAM DESCRIPTION: MRI BRAIN WO CONTRAST REASON FOR STUDY: Hx of recent CVA, pt has increased weakness and decreased mental status. TECHNIQUE: Multiplanar imaging includes non-contrasted T1, T2, FLAIR, and diffusion with ADC map sequences. Additional sequence(s) sensitive to blood products. Images stored on PACS. COMPARISON: Head CT [...] EXTRAAXIAL SPACES: No abnormal extra-axial fluid collection. Normal size ventricles. BRAIN VOLUME: Qhkx-fk-nxmkutyf cerebral volume loss. PITUITARY: Unremarkable. VASCULATURE: Skull base flow voids are present. ORBITS: No masses. Globes normal. PARANASAL SINUSES AND MASTOIDS: No significant mucosal thickening or fluid. OTHER: No other significant finding. IMPRESSION: Large [...] findings were reported by telephone to ELLIOT Bloom on 04/20/2024 at 12:35 p.m. THIS IS AN ELECTRONICALLY VERIFIED FINAL REPORT 04/20/2024 12:44 PM - Electronically signed by Angel Kyle M.D. AG T: Report ID: [id number] Reading Location: [id number] Neuro CT Outside Reference Result Date: 04/20/2024 Narrative: This order has been auto-finalized and does not contain a result. XR Chest 1 View Result Date: 04/20/2024 Narrative: EXAM DESCRIPTION: XR CHEST 1 VIEW REASON FOR STUDY: altered mental status Pt order sts: ams Pt chart sts: HTN; Hyperlipd. Recent stroke and discharged to rehab TECHNIQUE: 1 radiographic view(s) of the chest. COMPARISON: No prior studies are available for comparison at time of this dictation. FINDINGS: LUNGS: No focal opacity, pleural effusion, or pneumothorax. HEART/MEDIASTINUM: Cardiac silhouette normal in size. Mediastinal and hilar contours appear normal. LINES/TUBES: None. BONES:No acute osseous abnormality. IMPRESSION: No acute pulmonary process. THIS IS AN ELECTRONICALLY VERIFIED FINAL REPORT 04/20/2024 9:03 AM - Electronically signed by Johan Wilson M.D. MM T: Report ID: [id number] Reading Location: [id number] Current Facility-Administered Medications Medication Dose Route Frequency Provider Last Rate Last Admin acetaminophen (TYLENOL) tablet 650 mg 650 mg oral Q6H PRN Jammie Dickson NP 650 mg at 04/26/24 0423 Or acetaminophen (TYLENOL) 32 mg/mL oral liquid 650 mg 650 mg feeding tube Q6H PRN KristenL. Dickson NP Or acetaminophen (TYLENOL) suppository 650 mg 650 mg rectal Q6H PRN Jammie Dickson NP ampicillin (OMNIPEN) 1,000 mg in sodium chloride 0.9% 100 mL IVPB 1,000 mg intravenous Q6H [facility] Sosa Andino MD 200 mL/hr at 04/26/24 0534 1,000 mg at 04/26/24 0534 benzocaine-menthoL (CHLORASEPTIC) lozenge 1 lozenge 1 lozenge mouth/throat Q4H PRN Sosa Andino MD 1 lozenge at 04/25/242017 clopidogreL (PLAVIX) tablet 75 mg 75 mg oral Daily Sosa Andino MD 75 mg at 04/25/24 0922 dextrose (GLUTOSE) 40 % gel 15 g 15 g oral Q15 Min PRN Jammie Dickson NP Or dextrose (D10W) 10% bolus 250 mL 250 mL intravenous Q15 Min PRN Jammie Dickson NP divalproex (DEPAKOTE SPRINKLE) sprinkle capsule 500 mg 500 mg oral BID Sailaja Bloom, ELLITO 500 mg at 04/25/242006 ergocalciferol (VITAMIN D) capsule 50,000 Units 50,000 Units oral Weekly Sosa Andino MD FLUoxetine (PROzac) capsule 20 mg 20 mg oral Daily Sosa Andino MD 20 mg at 04/25/24 0921 glucagon injection 1 mg 1 mg intramuscular Q30 Min PRN Jammie Dickson NP hydrOXYzine (ATARAX) tablet 25 mg 25 mg oral Q6H PRN Sosa Andino MD 25 mg at 04/26/24 0423 insulin lispro (HumaLOG, ADMELOG) 100 unit/mL injection 0-4 Units 0-4 Units subcutaneous Nightly Jammie Dickson NP insulin lispro (HumaLOG, ADMELOG) 100 unit/mL injection 0-5 Units 0-5 Units subcutaneous TID with meals Jammie Dickson NP 1 Units at 04/22/24 1753 leflunomide (ARAVA) tablet 20 mg 20 mg oral Daily Sosa Andino MD 20 mg at 04/25/24 0921 peg 601-lqqxaqrofvqj-yajurauq (ARTIFICAL TEARS) 1-0.2-0.2 % ophthalmic solution 1 drop 1 drop each eye TID PRN Sosa Andino MD 1 drop at 04/25/24 0922 rivaroxaban (XARELTO) tablet 15 mg 15 mg oral BID with meals (bkfst, dinner) Sosa Andino MD 15 mg at 04/25/24 1726 Followed by [START ON 05/15/2024] rivaroxaban (XARELTO) tablet 20 mg 20 mg oral Daily with dinner Sosa Andino MD rosuvastatin (CRESTOR) tablet 20 mg 20 mg oral Daily Jammie Dickson NP 20 mg at 04/25/24 0922 sodium chloride 0.9% flush 0.5-20 mL 0.5-20 mL intra-catheter Q8H [facility] Jammie Dickson NP 10mL at 04/26/24 0535 sodium chloride 0.9% flush 0.5-20 mL 0.5-20 mL intra-catheter PRN Jammie Dickson, SURGICAL TERRITORY MANAGER A/P: MDM Principal Problem: Altered mental status, unspecified altered mental status type Active Problems: HTN (hypertension) Hyperlipidemia Type 2 diabetes mellitus (HCC) UTI (urinary tract infection) CVA (cerebral vascular accident) (HCC) 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 Altered Mental Status Worsening CVA; post recent CVA with left sided hemiplegia (Apr 07, 2024): Severe atherosclerotic disease with mobile atheroma, lambl;s excresence L common carotid artery stenosis Transferred from OSH for AMS likely 2/2 Worsening CVA based 'n CT head vs UTI. -CXR ordered to r/o any infectious processes -MRI brain w new acute.subacute cva bilaterally; CTA as above -No recent ECHO results available (need requested from [facility]) -continue aspirin and statin currently, cardiology recommending full dose AC when ok from neuro-likely Thursday -Neurochecks 4hrs -Fall precautions; up with assistance -PT/OT/ST eval and tx -Dr Rodgers, Neurology consulted -cont tele -discussed w cardiology, SHIVAM done, will need extended cardiac monitoring, describes what sounds like event monitor use in the past, and now OSH requested loop monitor -CTA CAP ordered by rec's from cards/vascular -diffuse atherosclerotic dz. 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 Will discuss w neuro, recommended start AC, repeat CTH w.o hemorrhagic conversion. Xarelto started, continue w plavix. Aspirin dc'd -vascular consulted, recommended outpt f/up in 6 mon UTI: UA positive. >100 WBCs, 3+LEs -Urine culture showing enterococcus, rocephin-->ampicillin, will request from rehab sensitivities. Final cx with dallin, no enterococcus, will dc ampicillin, pt does report intermittent vaginal itching, will give fluconazole -dc IVFs -Strict intake and output -dc fernandez - voiding spontaneously -final blood culture from [facility] also ngtd, appreciate staff obtaining records Type 2DM: -HgbA1c 6.2 -Blood glucose monitoring ACHS. -SSI ordered -Hold dose of metformin HTN: -Hold antihypertensives to avoid hypotension -resume when appropriate -routine VS; monitor BP closely Voice recognition software [employer] was used dictate and transcribe this document. Project Manager variances may occur. Despite proofreading, typographical errors may occur. For patients or family members viewing this note through [employer]: This note was written as a communication tool between healthcare providers and may contain technical language, terminology and abbreviations that is difficult to interpret without advanced medical training. If you have questions or concerns regarding what is written in this note, please request to speak with the primary medical team taking care of you or your family member. Sosa Andino MD 04/26/2024 7:30 AM * Sailaja Bloom PA - 04/25/2024 2:02 PM CDT Spoke with Dr. Rodgers who covered and spoke with hospitalist over the weekend. CTH repeated and is negative for hemorrhage, ok to start Xarelto + Plavix. Must remember Depakote will reduce the efficacy of the Xarelto but the Depakote (started for abnormal EEG with noted changes in behavior with slow return to normal suspected to be post ictal state) does seem to be helping her behavior (panic andcrying spells) therefore will continue. Could consider Lamictal however would take her 6-8 weeks maco therapeutic, Keppra may worsen her panic/crying, Vimpat would not help her behavior. No further neuro recs, she needs to follow up in our office in 6 weeks unless her family chooses tofollow up else where. Please call with questions. Cosigned by Arpan Rodgers MD at 05/02/2024 11:05 AM CDT * Viola Orozco, NANOTECHNICIAN - 04/25/2024 8:52 AM CDT Physical Therapy 04/25/24 0852 PT Last Visit Session Type Treatment PT Received On 04/25/24 Safe Environment Arm band checked;Patient found in supine;Session completed bedside Subjective Agreeable to Therapy Precautions Precautions Bed/Chair Alarm;Fall risk Pain Assessment Pain Assessment No/denies pain Cognition Arousal/Alertness Alert Orientation Oriented to person Compliance/Behavior Easy to engage Static Sitting Balance Static Sitting-Balance Support Bilateral upper extremity supported;Feet supported Static Sitting-Sitting Surface Bed Static Sitting-Level of Assistance Maximum assistance Static Sitting-Comment/# of Minutes 15 minutes with L lat/post lean Dynamic Sitting Balance Dynamic Sitting-Balance Support Unilateral upper extremity supported;Feet supported Dynamic Sitting-Sitting Surface Bed Dynamic Sitting-Level of Assistance Maximum assistance Bed Mobility 1 Bed Mobility From 1 Supine Bed Mobility Type 1 To and from Bed Mobility to 1 Edge of bed Level of Assistance 1 Dependent Bed Mobility Comments 1 1-2 Transfer 1 Trials/Comments 1 did not attempt due to poor sitting balance and safety concerns. Safe Environment End of Therapy Session Safe Environment End of Therapy Session Patient left supine in bed;Bed alarm in place and activated;Call light within reach;Overbed table within reach;Bed in lowest position with wheels locked Recommendation/Plan PT Recommendation/Plan (S) Inpatient Rehab Facility Patient at high risk for Falls;Readmission;Injury due to decreased ability to care for self Recommend Inpatient Rehab/Acute Rehab due to Ability to actively participate in intensive therapy 3hours/day, 5 days/week or 900 minutes per week;Highly motivated to participate in therapy;Not at baseline due to impaired ability to complete ADLs;Impaired ability to complete functional mobility;Likely to return to the community at discharge with support system in place;Requires greater than 25% physical assistance with most mobility tasks;Requires greater than 25% physical assistance with most ADL tasks;Requires multiple therapy disciplines to address functional deficits Time Calculation Start Time 0851 Stop Time 913 Time Calculation (min) 23 min Multi-Disciplinary Problems (from Physical Therapy) Active Problems Problem: PT [facility] Start Date: 04/20/24 Goal Start Date Expected End Date End Date PT LTG - [facility] 1 04/20/24 05/04/24 -- Goal Details: Pt will transfer supine<>sit with min assist x 1 Goal Start Date Expected End Date End Date PT LTG - [facility] 2 04/20/24 05/04/24 -- Goal Details: Pt will transfer bed<>chair with assistive device as needed with min assist x 1 Goal Start Date Expected End Date End Date PT LTG - [facility] 3 04/20/24 05/04/24 -- Goal Details: Pt will sit at edge of bed with supervision for balance, x 5 minutes Goal Start Date Expected End Date End Date PT [facility] - [facility] 4 04/20/24 05/04/24 -- Goal Details: Pt will ambulate 25 feet with assistive device as needed with min assist x 1 Goal Start Date Expected End Date End Date PT [facility] - [facility] 5 04/20/24 05/04/24 -- Goal Details: Pt will perform BLE seated therex x 10 reps each with supervision Goals not met Principal Investigator Services Utilized: NO Educated the patient to the role of physical therapy, plan of care, goals of therapy, rationale forprogressing mobility. Patient was left with all needs met and equipment intact. Mobility and ADL status posted at bedsideand within medical record. * Bety Tyler COTA - 04/25/2024 8:51 AM CDT Occupational Therapy 04/25/24 0851 General Session Type Treatment OT Received On 04/25/24 Safe Environment Arm band checked;Patient found in supine Subjective Agreeable to Therapy Subjective Comment I am old, I can't do this Precautions Precautions Bed/Chair Alarm;Fall risk Pain Assessment Pain Assessment No/denies pain Static Sitting Balance Static Sitting-Balance Support Bilateral upper extremity supported;Feet supported Static Sitting-Sitting Surface Bed Static Sitting-Level of Assistance Maximum assistance Static Sitting-Comment/# of Minutes (pt presented with left posterior lean this date,) Dynamic Sitting Balance Dynamic Sitting-Balance Support Feet supported;Unilateral upper extremity supported Dynamic Sitting-Balance Lateral lean;Forward lean;Reaching for objects;Trunk control activities Dynamic Sitting-Sitting Surface Bed Dynamic Sitting-Level of Assistance Maximum assistance Dynamic Sitting-Comments pt with poor dynamic sitting balance this date. Grooming Grooming: Where assessed Edge of bed Grooming: Level of assistance Moderate Assist;Moderate Verbal Cues Grooming: Assistance with Brushing hair;Reaching all areas of head/face;Attending to task (pt required Mod A to reach all areas of head, and mod verbal cues to attend to task this date.) Bed Mobility 1 Bed Mobility From 1 Supine Bed Mobility Type 1 To and from Bed Mobility to 1 Edge of bed Level of Assistance 1 Max (x2, pt required encourgement stating, I'm too old to do this, I just can't ) Cognition Arousal/Alertness Alert Orientation Oriented to person Other Comments Comments Pt participated in visual tracking activity. Pt able to track from midline to right side, however unable to track from midline to left side. Safe Environment End of Therapy Session Safe Environment End of Therapy Session Patient left supine in bed;Bed alarm in place and activated;Call light within reach;Overbed table within reach Assessment Prognosis Fair Problem List Decreased endurance;Decreased balance;Decreased functional mobility;Decreased IADL independence;Decreased ADL independence Plan Plan Continue with current plan Recommendation/Plan OT Recommendation (S) Custodial Facility Patient at high risk for Falls;Readmission;Injury due to decreased ability to care for self;Injury due to reduced functional status;Injury due to impaired cognition;Injury due to balance deficits;Injury at home as patient has not returned to prior level of function;Developing impaired skin integrity;Cognitive decline due to decreased social participation;Prolonged dependence for self care tasks Recommend SNF due to Risk of injury at home;Unable to safely care for self in the home;Skilled therapy needed to address care for self in the home;Skilled therapy needed to address functional deficits;Skilled therapy needed for patient to return to prior level of independence Progress during current admission Slow progress, cognitive deficits Time Calculation Start Time 0851 Stop Time 0914 Time Calculation (min) 23 min Principal Investigator Services Utilized: NO Patient is identified by name and date of on this visit. Education provided to the patient/caregiver regarding the role of occupational therapy, plan of care, goals of therapy, rationale for progressing mobility and use of call light. poor understanding. * Sosa Andino MD - 04/25/2024 7:30 AM CDT General Medicine Daily Progress SUBJECTIVE Chief complaint of Pt w recent CVA w L UE and LLE weakness, HTN, DM, RA, presents to OSH ED from rehab for AMS 1-2 days. CTH concerning for new cva, also being treated for UTI w cefdinir Neuro consulted Placed on rocephin overnight MRI resulted Pt has had event monitoring December 2023, sinus rhythm, no afib, flutter mentioned see care everywhere Will request UA.Urine cx result from [facility] re[facility] Husbands states fernandez placed in the last week or so Pt deny dysuria, discomfort w urination Major cva in January and in mar, was sjust transferred to rehab after stroke teated at [facility] [place]. LUE LLE paresis Pt appear at baseline now this early afternoon according to Gbp was just restarted but taking as needed at rehab . Interval History: Vss CTA w significant posterior cirv disease Neuro recommended SHIVAM and extended cardiac monitoring In room w , supposed to have loop recorder placed this wk in [place] Has L ankle mvmt > L knee, hip mvmt, L hand shop director soft, able to roll elbow and was observed to bring L hand to her glasses w/o her realizing during therapy session today Though pt complains of pain w L sided mvmt 04/22 Vss EEG w L temporal discharge SHIVAM td w significant atherosclerotic dz descending aorta Brother in room 04/23 Vss SHIVAM w significant amt of atherosclerotic dz, mobile atheroma in descending aorta and arch, labml's excresence in aortic valve cusps CTA CAP recommended/ordered.resulted-infrarenal abdom aortic aneurysm 3cm, severe stenosis of SMA, R renal artery, L common carotid origin, Data Analytics Architect and CTS consulted. Recommend anticoagulation when ok from neuro, CTS to see Pt needs repeated encouragement for eating/drinking, does better with family nearby. Lots of anxiety, even w family here Urine from OSH w enterococcus, rocephin switched to ampicillin Requested further records for blood cx and Urine cx w sensitivty if available Questionable Urinary retention resoled prior to straight cath last night Pt in room w , calm No abdom pain w eating 04/24 vss Seen by CTS- not indication for surgery, recommended vascular evaluation Cards now recommending considering AC Carotid Us pending In room w , calm, pleasant 04/25 CTH repeatde no hemorrhagic conversion Started on xarelto Labs stable will space them out Vascular consult td for carotid disease In room by herself, calm OBJECTIVE Vitals: 24hr Min/Max: Temp Min: 36.5 ??C (97.7 ??F) Max: 36.8 ??C (98.2 ??F) Pulse Min: 83 Max: 99 BP Min: 143/87 Max: 163/87 Resp Min: 15 Max: 20 SpO2 Min: 95 % Max: 99 % Most Recent : Vitals: 04/25/24 0345 BP: 163/87 Pulse: 90 Resp: 20 Temp: 36.6 ??C (97.9 ??F) SpO2: 95% I/O last 2 completed shifts: In: 640 [P.O.:540; IV Piggyback:100] Out: 3 [Urine:3] No intake/output data recorded. Physical Exam: General Exam: In no acute distress Skin: Dry, Warm. ABSENT: Jaundice, Rash Head: Atraumatic, Normocephalic Ears, Nose, Mouth, Throat: Ext. ears & nose normal, Moist mucous membranes Cardiovascular: Normal range, Regular rhythm, S1S2 normal. ABSENT: Edema Respiratory: CTA bilaterally, Effort normal ABSENT: Crackles, Rhonchi Abdomen: Bowel sounds present, Soft. ABSENT: Mass, Tenderness, Distention Musculoskeletal/Extremities: Joints normal Neurological: poor vision, intact in RLQ. Overall decr motor function in L side, worse in LLE, has resistance in LUE, able to move L hand out from under covers Psychiatric: Affect appropriate, Alert Psychiatric - Orientation: Oriented to: Time, Place, Person Lab/Current Medication Review: Recent Results (from the past 24 hour(s)) POCT glucose Collection Time: 04/24/24 11:47 AM Result Value Ref Range Glucose, POC 128 70 - 199 mg/dL Glucose comment 1 Use This Result POCT glucose Collection Time: 04/24/24 4:35 PM Result Value Ref Range Glucose, POC 123 70 - 199 mg/dL Glucose comment 1 Use This Result POCT glucose Collection Time: 04/24/24 8:03 PM Result Value Ref Range Glucose, POC 168 70 - 199 mg/dL Glucose comment 1 Use This Result CBC with auto differential Collection Time: 04/25/24 6:42 AM Result Value Ref Range WBC 9.1 3.8 - 9.9 K/cumm Hgb 9.1 (L) 11.9 - 15.5 g/dL Hct 28.7 (L) 35.6 - 45.5 % Plt 259 150 - 400 K/cumm MPV 10.5 9.1 - 12.3 fL RBC 3.32 (L) 3.90 - 5.20 M/cumm MCV 86.4 81.3 - 96.4 fL MCH 27.4 27.1 - 33.3 pg MCHC 31.7 (L) 32.3 - 35.7 g/dL RDW CV 14.6 11.1 - 14.9 % RDW SD 46.5 35.7 - 48.1 fL NRBC abs 0.00 0.00 - 0.01 K/cumm Renal function panel Collection Time: 04/25/24 6:42 AM Result Value Ref Range Sodium 142 135 - 145 mmol/L Potassium, pl 3.6 3.3 - 4.9 mmol/L Chloride 107 97 - 110 mmol/L CO2 24 22 - 32 mmol/L Anion gap 11 2 - 15 mmol/L BUN 12 6 - 25 mg/dL Creatinine 0.71 0.60 - 1.10 mg/dL Glucose 117 70 - 199 mg/dL Calcium 9.6 8.5 - 10.3 mg/dL Phosphorus, pl 3.1 2.3 - 4.5 mg/dL Albumin 3.7 3.5 - 5.0 g/dL Differential, auto Collection Time: 04/25/24 6:42 AM Result Value Ref Range Neutrophil abs 5.6 1.5 - 6.5 K/cumm Imm gran abs 0.0 0.0 - 0.1 K/cumm Lymphocyte abs 1.9 0.8 - 3.3 K/cumm Monocyte abs 0.7 0.2 - 0.8 K/cumm Eosinophil abs 0.8 (H) 0.0 - 0.5 K/cumm Basophil abs 0.1 0.0 - 0.1 K/cumm Neutrophil pct 61.4 % Imm gran pct 0.2 % Lymphocyte pct 21.0 % Monocyte pct 7.1 % Eosinophil pct 8.9 % Basophil pct 1.4 % eGFR Collection Time: 04/25/24 6:42 AM Result Value Ref Range eGFR >90 >=60 mL/min/1.73 m2 CTA Head Neck W WO Contrast Result Date: 04/20/2024 Narrative: EXAM DESCRIPTION: CTA HEAD NECK W WO CONTRAST REASON FOR STUDY: Acute altered mental status for 2 days in a patient reportedly being treated for UTI. Provided focal neurologic deficits. Noprovided history of trauma. 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 No provided surgical history. TECHNIQUE: Axial images were first obtained through the brain without contrast. Axial dynamic scanning technique with dynamic contrast enhancement through the intracranial and extracranial carotid and vertebral arteries. Multiplanar reconstruction. All stenosis measurements are based on NASCET criteria.3D MIP images rendered on scanning unit and reviewed at time of interpretation. Automated exposure control was used as a dose optimization technique for this examination. CONTRAST TYPE/DOSE: 100 mL Optiray 350 injected via peripheral IV site without reported incident. COMPARISON: MRI brain without contrast performed earlier same day FINDINGS: BRAIN: No CT evidence of acute intracranial hemorrhageor increased intracranial pressure. Please reference MRI brain performed earlier same day for detailed evaluation of bilateral, [id number]-[id number]-jejj-left, acute infarcts superimposed on constellation of chronic findings. 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 Patent left PACKAGE WINDER, noting variable, to include severe, stenosis along its course. The anterior, middle, posterior cerebral arteries are all patent. No aneurysm. POSTERIOR CIRCULATION: Vertebral arteries as below. Patent basilar artery. No aneurysm. BRAIN: No gross evidence of [...] VERTEBRAL: Patent with calcific atherosclerosis producing at least 50% stenosis of the takeoff of the right vertebral artery with variable stenosis along its course. AORTIC ARCH: Three-vessel aortic arch. Patent subclavian arteries with calcific atherosclerosis producing variable stenosis. NECK SOFT TISSUE: No acute abnormality. No thyroid nodule greater than 1 cm. INCLUDED LUNGS: Biapical pleuroparenchymal scarring. OTHER: No other significant finding. IMPRESSION: No CT evidence of acute intracranial hemorrhage or increased intracranial pressure. Please reference MRI brain performed earlier same day for detailed evaluation ofbilateral, fbipv-cvbyfxy-obsn-left, acute infarcts superimposed on constellation of chronic findings. 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 Occlusion of the left [...] systems, with calcific atherosclerosis producing approximately 55-60% stenosisof the right ICA, without overt CT angiographic evidence of dissection. These significant findings were reported by telephone to patient's nurse Cris for ordering provider Arpan Rodgers on 04/20/2024 at 1554 . THIS IS AN ELECTRONICALLY VERIFIED FINAL REPORT 04/20/2024 3:57 PM - Electronically signed by Steven VALENZUELA T: Report ID: [id number] Reading Location: [place] [id number] MRI Brain WO Contrast Result Date: 04/20/2024 Narrative: EXAM DESCRIPTION: MRI BRAIN WO CONTRAST REASON FOR STUDY: Hx of recent CVA, pt has increased weakness and decreased mental status. TECHNIQUE: Multiplanar imaging includes non-contrasted T1, T2, FLAIR, and diffusion with ADC map sequences. Additional sequence(s) sensitive to blood products. Images stored on PACS. COMPARISON: Head CT [...] EXTRAAXIAL SPACES: No abnormal extra-axial fluid collection. Normal size ventricles. BRAIN VOLUME: Nndb-[id number] cerebral volume loss. PITUITARY: Unremarkable. VASCULATURE: Skull base flow voids are present. ORBITS: No masses. Globes normal. PARANASAL SINUSES AND MASTOIDS: No significant mucosal thickening or fluid. OTHER: No other significant finding. IMPRESSION: Large [...] findings were reported by telephone to ELLIOT Bloom on 04/20/2024 at 12:35 p.m. THIS IS AN ELECTRONICALLY VERIFIED FINAL REPORT 04/20/2024 12:44 PM - Electronically signed by Angel Kyle M.D. AG T: Report ID: [id number] Reading Location: [id number] Neuro CT Outside Reference Result Date: 04/20/2024 Narrative: This order has been auto-finalized and does not contain a result. XR Chest 1 View Result Date: 04/20/2024 Narrative: EXAM DESCRIPTION: XR CHEST 1 VIEW REASON FOR STUDY: altered mental status Pt order sts: ams Pt chart sts: HTN; Hyperlipd. Recent stroke and discharged to rehab TECHNIQUE: 1 radiographic view(s) of the chest. COMPARISON: No prior studies are available for comparison at time of this dictation. FINDINGS: LUNGS: No focal opacity, pleural effusion, or pneumothorax. HEART/MEDIASTINUM: Cardiac silhouette normal in size. Mediastinal and hilar contours appear normal. LINES/TUBES: None. BONES:No acute osseous abnormality. IMPRESSION: No acute pulmonary process. THIS IS AN ELECTRONICALLY VERIFIED FINAL REPORT 04/20/2024 9:03 AM - Electronically signed by Johan Wilson M.D. MM T: Report ID: [id number] Reading Location: [id number] Current Facility-Administered Medications Medication Dose Route Frequency Provider Last Rate Last Admin acetaminophen (TYLENOL) tablet 650 mg 650 mg oral Q6H PRN Jammie Dickson SURGICAL TERRITORY MANAGER 650 mg at 04/23/24 1816 Or acetaminophen (TYLENOL) 32 mg/mL oral liquid 650 mg 650 mg feeding tube Q6H PRN KristenL. Dickson NP Or acetaminophen (TYLENOL) suppository 650 mg 650 mg rectal Q6H PRN Jammie Dickson NP ampicillin (OMNIPEN) 1,000 mg in sodium chloride 0.9% 100 mL IVPB 1,000 mg intravenous Q6H ROBERTO Sosa Andino MD 200 mL/hr at 04/25/24 0609 1,000 mg at 04/25/24 0609 clopidogreL (PLAVIX) tablet 75 mg 75 mg oral Daily Sosa Andino MD 75 mg at 04/24/24 0838 dextrose (GLUTOSE) 40 % gel 15 g 15 g oral Q15 Min PRN Jammie Dickson NP Or dextrose (D10W) 10% bolus 250 mL 250 mL intravenous Q15 Min PRN Jammie Dickson NP divalproex (DEPAKOTE SPRINKLE) sprinkle capsule 500 mg 500 mg oral BID Sailaja Bloom PA 500 mg at 04/24/242022 ergocalciferol (VITAMIN D) capsule 50,000 Units 50,000 Units oral Weekly Sosa Andino MD FLUoxetine (PROzac) capsule 20 mg 20 mg oral Daily Sosa Andino MD 20 mg at 04/24/24837 glucagon injection 1 mg 1 mg intramuscular Q30 Min PRN Jammie Dickson NP hydrOXYzine (ATARAX) tablet 25 mg 25 mg oral Q6H PRN Sosa Andino MD 25 mg at 04/24/242022 insulin lispro (HumaLOG, ADMELOG) 100 unit/mL injection 0-4 Units 0-4 Units subcutaneous Nightly Jammie Dickson NP insulin lispro (HumaLOG, ADMELOG) 100 unit/mL injection 0-5 Units 0-5 Units subcutaneous TID with meals Jammie Dickson NP 1 Units at 04/22/241752 leflunomide (ARAVA) tablet 20 mg 20 mg oral Daily Sosa Andino MD 20 mg at 04/24/24 0838 peg [id number] (ARTIFICAL TEARS) 1-0.2-0.2 % ophthalmic solution 1 drop 1 drop each eye TID PRN Sosa Andino MD 1 drop at 04/24/24 1337 rivaroxaban (XARELTO) tablet 15 mg 15 mg oral BID with meals (bkfst, dinner) Sosa Andino MD 15 mg at 04/24/242026 Followed by [START ON 05/15/2024] rivaroxaban (XARELTO) tablet 20 mg 20 mg oral Daily with dinner Sosa Andino MD rosuvastatin (CRESTOR) tablet 20 mg 20 mg oral Daily Jammie Dickson, SURGICAL TERRITORY MANAGER 20 mg at 04/24/24 0838 sodium chloride 0.9% flush 0.5-20 mL 0.5-20 mL intra-catheter Q8H ROBERTO Jammie Dickson, SURGICAL TERRITORY MANAGER 10mL at 04/25/24 0610 sodium chloride 0.9% flush 0.5-20 mL 0.5-20 mL intra-catheter PRN Jammie Dickson, SURGICAL TERRITORY MANAGER A/P: MDM Principal Problem: Altered mental status, unspecified altered mental status type Active Problems: HTN (hypertension) Hyperlipidemia Type 2 diabetes mellitus (HCC) UTI (urinary tract infection) CVA (cerebral vascular accident) (HCC) 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 Altered Mental Status Worsening CVA; post recent CVA with left sided hemiplegia (Apr 07, 2024): Severe atherosclerotic disease with mobile atheroma, lambl;s excresence L common carotid artery stenosis Transferred from OSH for AMS likely 2/2 Worsening CVA based 'n CT head vs UTI. -CXR ordered to r/o any infectious processes -MRI brain w new acute.subacute cva bilaterally; CTA as above -No recent ECHO results available (need requested from [facility]) -continue aspirin and statin currently, cardiology recommending full dose AC when ok from neuro-likely Thursday -Neurochecks 4hrs -Fall precautions; up with assistance -PT/OT/ST eval and tx -Dr Rodgers, Neurology consulted -cont tele -discussed w cardiology, SHIVAM done, will need extended cardiac monitoring, describes what sounds like event monitor use in the past, and now OSH requested loop monitor -CTA CAP ordered by rec's from cards/vascular -diffuse atherosclerotic dz. 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 Will discuss w neuro, recommended start AC, repeat CTH w.o hemorrhagic conversion. Xarelto started, continue w plavix. Aspirin dc'd UTI: UA positive. >100 WBCs, 3+LEs -Urine culture showing enterococcus, rocephin-->ampicillin, will request from rehab sensitivities -dc IVFs -Strict intake and output -dc fernandez - voiding spontaneously -need updated urine cx enterococcus sensitivity, and blood culture updated result from [facility] Type 2DM: -HgbA1c 6.2 -Blood glucose monitoring ACHS. -SSI ordered -Hold dose of metformin HTN: -Hold antihypertensives to avoid hypotension -resume when appropriate -routine VS; monitor BP closely Voice recognition software [employer] was used dictate and transcribe this document. Project Manager variances may occur. Despite proofreading, typographical errors may occur. For patients or family members viewing this note through [employer]: This note was written as a communication tool between healthcare providers and may contain technical language, terminology and abbreviations that is difficult to interpret without advanced medical training. If you have questions or concerns regarding what is written in this note, please request to speak with the primary medical team taking care of you or your family member. Sosa Andino MD 04/25/2024 7:30 AM * Misty Pelaez, NANOTECHNICIAN - 04/24/2024 10:55 AM CDT Physical Therapy 04/24/24 1055 PT Last Visit Session Type Treatment PT Received On 04/24/24 Safe Environment Arm band checked Subjective Agreeable to Therapy Family/Caregiver Present Yes (son) Precautions Precautions Bed/Chair Alarm Precaution Comments tele - alarm Activity Tolerance Endurance Tolerates 10 - 20 min activity with multiple rests Pain Assessment Pain Score 4 Pain Type Chronic pain Pain Location Back (Lumbar) Pain Descriptors Aching Cognition Arousal/Alertness Alert Safety Judgment Decreased awareness of need for assistance Insight Decreased awareness of deficits Compliance/Behavior Easy to engage Bed Mobility 1 Bed Mobility From 1 Supine Bed Mobility Type 1 To Bed Mobility to 1 Edge of bed Level of Assistance 1 Moderate Assist Bed Mobility Comments 1 mod plus two Transfer 1 Transfer From 1 Sit Transfer Type 1 To Transfer to 1 Stand Transfer Device 1 No device Transfer Level of Assistance 1 Maximum Assist Trials/Comments 1 pt was not able to advance her feet to chair - pivot transfer required Transfers 2 Transfer From 2 Bed Transfer Type 2 To Transfer to 2 Chair with arms Transfer Level of Assistance 2 Moderate Assist;Maximum Assist Assessment Prognosis Fair Problem List Gait deviations;Decreased strength;Impaired balance;Decreased endurance Plan Plan Continue with current plan Recommendation/Plan PT Recommendation/Plan Inpatient Rehab Facility Time Calculation Start Time 1055 Stop Time 1115 Time Calculation (min) 20 min Principal Investigator Services Utilized: NO Educated the patient to the role of physical therapy, plan of care, goals of therapy, rationale forprogressing mobility Patient was left with all needs met and equipment intact. Mobility and ADL status posted at bedsideand within medical record. Multi-Disciplinary Problems (from Physical Therapy) Active Problems Problem: PT [facility] Start Date: 04/20/24 Goal Start Date Expected End Date End Date PT [facility] 1 04/20/24 05/04/24 -- Goal Details: Pt will transfer supine<>sit with min assist x 1 Goal Start Date Expected End Date End Date PT [facility] 2 04/20/24 05/04/24 -- Goal Details: Pt will transfer bed<>chair with assistive device as needed with min assist x 1 Goal Start Date Expected End Date End Date PT [facility] 3 04/20/24 05/04/24 -- Goal Details: Pt will sit at edge of bed with supervision for balance, x 5 minutes progressing Goal Start Date Expected End Date End Date PT [facility] 4 04/20/24 05/04/24 -- Goal Details: Pt will ambulate 25 feet with assistive device as needed with min assist x 1 not met Goal Start Date Expected End Date End Date PT [facility] 5 04/20/24 05/04/24 -- Goal Details: Pt will perform BLE seated therex x 10 reps each with supervision not addressed * Sosa Andino MD - 04/24/2024 7:53 AM CDT General Medicine Daily Progress SUBJECTIVE Chief complaint of Pt w recent CVA w L UE and LLE weakness, HTN, DM, RA, presents to OSH ED from rehab for AMS 1-2 days. CTH concerning for new cva, also being treated for UTI w cefdinir Neuro consulted Placed on rocephin overnight MRI resulted Pt has had event monitoring December 2023, sinus rhythm, no afib, flutter mentioned see care everywhere Will request UA.Urine cx result from [facility] re[facility] Husbands states fernandez placed in the last week or so Pt deny dysuria, discomfort w urination Major cva in January and in mar, was sjust transferred to rehab after stroke teated at [facility] in [place]. LUE LLE paresis Pt appear at baseline now this early afternoon according to Gbp was just restarted but taking as needed at rehab . Interval History: Vss CTA w significant posterior cirv disease Neuro recommended SHIVAM and extended cardiac monitoring In room w , supposed to have loop recorder placed this wk in [place] Has L ankle mvmt > L knee, hip mvmt, L hand shop director soft, able to roll elbow and was observed to bring L hand to her glasses w/o her realizing during therapy session today Though pt complains of pain w L sided mvmt 04/22 Vss EEG w L temporal discharge SHIVAM td w significant atherosclerotic dz descending aorta Brother in room 04/23 Vss SHIVAM w significant amt of atherosclerotic dz, mobile atheroma in descending aorta and arch, labml's excresence in aortic valve cusps CTA CAP recommended/ordered.resulted-infrarenal abdom aortic aneurysm 3cm, severe stenosis of SMA, R renal artery, L common carotid origin, Data Analytics Architect and CTS consulted. Recommend anticoagulation when ok from neuro, CTS to see Pt needs repeated encouragement for eating/drinking, does better with family nearby. Lots of anxiety, even w family here Urine from OSH w enterococcus, rocephin switched to ampicillin Requested further records for blood cx and Urine cx w sensitivty if available Questionable Urinary retention resoled prior to straight cath last night Pt in room w , calm No abdom pain w eating 04/24 vss Seen by CTS- not indication for surgery, recommended vascular evaluation Cards now recommending considering AC Carotid Us pending In room w , calm, pleasant OBJECTIVE Vitals: 24hr Min/Max: Temp Min: 36.5 ??C (97.7 ??F) Max: 36.9 ??C (98.4 ??F) Pulse Min: 78 Max: 100 BP Min: 114/69 Max: 148/70 Resp Min: 16 Max: 21 SpO2 Min: 96 % Max: 99 % Most Recent : Vitals: 04/24/24 0728 BP: 140/98 Pulse: 79 Resp: 16 Temp: SpO2: 99% I/O last 2 completed shifts: In: 1030 [P.O.:880; IV Piggyback:150] Out: - No intake/output data recorded. Physical Exam: General Exam: In no acute distress Skin: Dry, Warm. ABSENT: Jaundice, Rash Head: Atraumatic, Normocephalic Ears, Nose, Mouth, Throat: Ext. ears & nose normal, Moist mucous membranes Cardiovascular: Normal range, Regular rhythm, S1S2 normal. ABSENT: Edema Respiratory: CTA bilaterally, Effort normal ABSENT: Crackles, Rhonchi Abdomen: Bowel sounds present, Soft. ABSENT: Mass, Tenderness, Distention Musculoskeletal/Extremities: Joints normal Neurological: poor vision, intact in RLQ. Overall decr motor function in L side, worse in LLE, has resistance in LUE Psychiatric: Affect appropriate, Alert Psychiatric - Orientation: Oriented to: Time, Place, Person Lab/Current Medication Review: Recent Results (from the past 24 hour(s)) POCT glucose Collection Time: 04/23/24 8:02 AM Result Value Ref Range Glucose, POC 136 70 - 199 mg/dL CBC with auto differential Collection Time: 04/23/24 10:24 AM Result Value Ref Range WBC 8.2 3.8 - 9.9 K/cumm Hgb 9.9 (L) 11.9 - 15.5 g/dL Hct 30.7 (L) 35.6 - 45.5 % Plt 290 150 - 400 K/cumm MPV 10.4 9.1 - 12.3 fL RBC 3.59 (L) 3.90 - 5.20 M/cumm MCV 85.5 81.3 - 96.4 fL MCH 27.6 27.1 - 33.3 pg MCHC 32.2 (L) 32.3 - 35.7 g/dL RDW CV 14.6 11.1 - 14.9 % RDW SD 45.0 35.7 - 48.1 fL NRBC abs 0.00 0.00 - 0.01 K/cumm Renal function panel Collection Time: 04/23/24 10:24 AM Result Value Ref Range Sodium 139 135 - 145 mmol/L Potassium, pl 3.4 3.3 - 4.9 mmol/L Chloride 104 97 - 110 mmol/L CO2 23 22 - 32 mmol/L Anion gap 12 2 - 15 mmol/L BUN 17 6 - 25 mg/dL Creatinine 0.78 0.60 - 1.10 mg/dL Glucose 174 70 - 199 mg/dL Calcium 10.0 8.5 - 10.3 mg/dL Phosphorus, pl 3.6 2.3 - 4.5 mg/dL Albumin 3.9 3.5 - 5.0 g/dL Differential, auto Collection Time: 04/23/24 10:24 AM Result Value Ref Range Neutrophil abs 5.4 1.5 - 6.5 K/cumm Imm gran abs 0.0 0.0 - 0.1 K/cumm Lymphocyte abs 1.5 0.8 - 3.3 K/cumm Monocyte abs 0.5 0.2 - 0.8 K/cumm Eosinophil abs 0.6 (H) 0.0 - 0.5 K/cumm Basophil abs 0.1 0.0 - 0.1 K/cumm Neutrophil pct 66.7 % Imm gran pct 0.1 % Lymphocyte pct 18.3 % Monocyte pct 6.1 % Eosinophil pct 7.7 % Basophil pct 1.1 % eGFR Collection Time: 04/23/24 10:24 AM Result Value Ref Range eGFR 85 >=60 mL/min/1.73 m2 POCT glucose Collection Time: 04/23/24 11:54 AM Result Value Ref Range Glucose, POC 160 70 - 199 mg/dL Glucose comment 1 Use This Result POCT glucose Collection Time: 04/23/24 4:55 PM Result Value Ref Range Glucose, POC 113 70 - 199 mg/dL Glucose comment 1 Use This Result POCT glucose Collection Time: 04/23/24 8:31 PM Result Value Ref Range Glucose, POC 132 70 - 199 mg/dL CBC with auto differential Collection Time: 04/24/24 7:01 AM Result Value Ref Range WBC 8.4 3.8 - 9.9 K/cumm Hgb 9.0 (L) 11.9 - 15.5 g/dL Hct 28.3 (L) 35.6 - 45.5 % Plt 268 150 - 400 K/cumm MPV 10.3 9.1 - 12.3 fL RBC 3.33 (L) 3.90 - 5.20 M/cumm MCV 85.0 81.3 - 96.4 fL MCH 27.0 (L) 27.1 - 33.3 pg MCHC 31.8 (L) 32.3 - 35.7 g/dL RDW CV 14.7 11.1 - 14.9 % RDW SD 45.1 35.7 - 48.1 fL NRBC abs 0.00 0.00 - 0.01 K/cumm Differential, auto Collection Time: 04/24/24 7:01 AM Result Value Ref Range Neutrophil abs 5.2 1.5 - 6.5 K/cumm Imm gran abs 0.0 0.0 - 0.1 K/cumm Lymphocyte abs 1.8 0.8 - 3.3 K/cumm Monocyte abs 0.6 0.2 - 0.8 K/cumm Eosinophil abs 0.8 (H) 0.0 - 0.5 K/cumm Basophil abs 0.1 0.0 - 0.1 K/cumm Neutrophil pct 61.1 % Imm gran pct 0.2 % Lymphocyte pct 20.8 % Monocyte pct 6.8 % Eosinophil pct 9.9 % Basophil pct 1.2 % POCT glucose Collection Time: 04/24/24 7:29 AM Result Value Ref Range Glucose, POC 123 70 - 199 mg/dL Glucose comment 1 Use This Result CTA Head Neck W WO Contrast Result Date: 04/20/2024 Narrative: EXAM DESCRIPTION: CTA HEAD NECK W WO CONTRAST REASON FOR STUDY: Acute altered mental status for 2 days in a patient reportedly being treated for UTI. Provided focal neurologic deficits. Noprovided history of trauma. 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 No provided surgical history. TECHNIQUE: Axial images were first obtained through the brain without contrast. Axial dynamic scanning technique with dynamic contrast enhancement through the intracranial and extracranial carotid and vertebral arteries. Multiplanar reconstruction. All stenosis measurements are based on NASCET criteria.3D MIP images rendered on scanning unit and reviewed at time of interpretation. Automated exposure control was used as a dose optimization technique for this examination. CONTRAST TYPE/DOSE: 100 mL Optiray 350 injected via peripheral IV site without reported incident. COMPARISON: MRI brain without contrast performed earlier same day FINDINGS: BRAIN: No CT evidence of acute intracranial hemorrhageor increased intracranial pressure. Please reference MRI brain performed earlier same day for detailed evaluation of bilateral, [id number]-[id number]-left, acute infarcts superimposed on constellation of chronic findings. 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 Patent left PACKAGE WINDER, noting variable, to include severe, stenosis along its course. The anterior, middle, posterior cerebral arteries are all patent. No aneurysm. POSTERIOR CIRCULATION: Vertebral arteries as below. Patent basilar artery. No aneurysm. BRAIN: No gross evidence of [...] VERTEBRAL: Patent with calcific atherosclerosis producing at least 50% stenosis of the takeoff of the right vertebral artery with variable stenosis along its course. AORTIC ARCH: Three-vessel aortic arch. Patent subclavian arteries with calcific atherosclerosis producing variable stenosis. NECK SOFT TISSUE: No acute abnormality. No thyroid nodule greater than 1 cm. INCLUDED LUNGS: Biapical pleuroparenchymal scarring. OTHER: No other significant finding. IMPRESSION: No CT evidence of acute intracranial hemorrhage or increased intracranial pressure. Please reference MRI brain performed earlier same day for detailed evaluation ofbilateral, gnygg-ycztrwp-wdpb-left, acute infarcts superimposed on constellation of chronic findings. 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 Occlusion of the left vertebral artery at the expected point of takeoff with slight scattered diminutive caliber reconstitution along the V2 and V3 segments prior to further occlusion. Patent right vertebral artery with calcific atherosclerosis producing at least 50% stenosis of the takeoff of the right vertebral artery and variable stenosis along its course. Patent bilate ral carotid arterial systems, with calcific atherosclerosis producing approximately 55-60% stenosisof the right ICA, without overt CT angiographic evidence of dissection. These significant findings were reported by telephone to patient's nurse Cris for ordering provider Arpan Rodgers on 04/20/2024 at 1554 . THIS IS AN ELECTRONICALLY VERIFIED FINAL REPORT 04/20/2024 3:57 PM - Electronically signed by Steven VALENZUELA T: Report ID: [id number] Reading Location: [id number] MRI Brain WO Contrast Result Date: 04/20/2024 Narrative: EXAM DESCRIPTION: MRI BRAIN WO CONTRAST REASON FOR STUDY: Hx of recent CVA, pt has increased weakness and decreased mental status. TECHNIQUE: Multiplanar imaging includes non-contrasted T1, T2, FLAIR, and diffusion with ADC map sequences. Additional sequence(s) sensitive to blood products. Images stored on PACS. COMPARISON: Head CT [...] EXTRAAXIAL SPACES: No abnormal extra-axial fluid collection. Normal size ventricles. BRAIN VOLUME: Zony-mx-opldevyq cerebral volume loss. PITUITARY: Unremarkable. VASCULATURE: Skull base flow voids are present. ORBITS: No masses. Globes normal. PARANASAL SINUSES AND MASTOIDS: No significant mucosal thickening or fluid. OTHER: No other significant finding. IMPRESSION: Large [...] findings were reported by telephone to ELLIOT Bloom on 04/20/2024 at 12:35 p.m. THIS IS AN ELECTRONICALLY VERIFIED FINAL REPORT 04/20/2024 12:44 PM - Electronically signed by Angel Kyle M.D. AG T: Report ID: [id number] Reading Location: [id number] Neuro CT Outside Reference Result Date: 04/20/2024 Narrative: This order has been auto-finalized and does not contain a result. XR Chest 1 View Result Date: 04/20/2024 Narrative: EXAM DESCRIPTION: XR CHEST 1 VIEW REASON FOR STUDY: altered mental status Pt order sts: ams Pt chart sts: HTN; Hyperlipd. Recent stroke and discharged to rehab TECHNIQUE: 1 radiographic view(s) of the chest. COMPARISON: No prior studies are available for comparison at time of this dictation. FINDINGS: LUNGS: No focal opacity, pleural effusion, or pneumothorax. HEART/MEDIASTINUM: Cardiac silhouette normal in size. Mediastinal and hilar contours appear normal. LINES/TUBES: None. BONES:No acute osseous abnormality. IMPRESSION: No acute pulmonary process. THIS IS AN ELECTRONICALLY VERIFIED FINAL REPORT 04/20/2024 9:03 AM - Electronically signed by Johan Wilson M.D. MM T: Report ID: [id number] Reading Location: [id number] Current Facility-Administered Medications Medication Dose Route Frequency Provider Last Rate Last Admin acetaminophen (TYLENOL) tablet 650 mg 650 mg oral Q6H PRN Jammie Dickson SURGICAL TERRITORY MANAGER 650 mg at 04/23/24 1816 Or acetaminophen (TYLENOL) 32 mg/mL oral liquid 650 mg 650 mg feeding tube Q6H PRN KristenL. Dickson NP Or acetaminophen (TYLENOL) suppository 650 mg 650 mg rectal Q6H PRN Jammie Dickson NP ampicillin (OMNIPEN) 1,000 mg in sodium chloride 0.9% 100 mL IVPB 1,000 mg intravenous Q6H Sosa Acharya MD 200 mL/hr at 04/24/24 0634 1,000 mg at 04/24/24 0634 aspirin enteric coated tablet 81 mg 81 mg oral Daily Jammie Dickson NP 81 mg at 04/23/24 0854 clopidogreL (PLAVIX) tablet 75 mg 75 mg oral Daily Sosa Andino MD 75 mg at 04/23/24 0854 dextrose (GLUTOSE) 40 % gel 15 g 15 g oral Q15 Min PRN Jammie Dickson NP Or dextrose (D10W) 10% bolus 250 mL 250 mL intravenous Q15 Min PRN Jammie Dickson NP divalproex (DEPAKOTE SPRINKLE) sprinkle capsule 500 mg 500 mg oral BID Sailaja Bloom, ELLIOT 500 mg at 04/23/242014 ergocalciferol (VITAMIN D) capsule 50,000 Units 50,000 Units oral Weekly Sosa Andino MD FLUoxetine (PROzac) capsule 20 mg 20 mg oral Daily Sosa Andino MD 20 mg at 04/23/24 0855 glucagon injection 1 mg 1 mg intramuscular Q30 Min PRN Jammie Dickson NP hydrOXYzine (ATARAX) tablet 25 mg 25 mg oral Q6H PRN Sosa Andino MD 25 mg at 04/23/24 1817 insulin lispro (HumaLOG, ADMELOG) 100 unit/mL injection 0-4 Units 0-4 Units subcutaneous Nightly Jammie Dickson NP insulin lispro (HumaLOG, ADMELOG) 100 unit/mL injection 0-5 Units 0-5 Units subcutaneous TID with meals Jammie Dickson NP 1 Units at 04/22/24 1753 leflunomide (ARAVA) tablet 20 mg 20 mg oral Daily Sosa Andino MD 20 mg at 04/23/24 0914 peg [id number]-gbdmjlrz (ARTIFICAL TEARS) 1-0.2-0.2 % ophthalmic solution 1 drop 1 drop each eye TID PRN Sosa Andino MD rosuvastatin (CRESTOR) tablet 20 mg 20 mg oral Daily Jammie Dickson NP 20 mg at 04/23/24 0854 sodium chloride 0.9% flush 0.5-20 mL 0.5-20 mL intra-catheter Q8H [facility] Jammie Dickson NP 10mL at 04/24/24 0635 sodium chloride 0.9% flush 0.5-20 mL 0.5-20 mL intra-catheter PRN Jammie Dickson NP A/P: MDM Principal Problem: Altered mental status, unspecified altered mental status type Active Problems: HTN (hypertension) Hyperlipidemia Type 2 diabetes mellitus (HCC) UTI (urinary tract infection) CVA (cerebral vascular accident) (HCC) 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 Altered Mental Status Worsening CVA; post recent CVA with left sided hemiplegia (Apr 07, 2024): Severe atherosclerotic disease with mobile atheroma, lambl;s excresence L common carotid artery stenosis Transferred from OSH for AMS likely 2/2 Worsening CVA based 'n CT head vs UTI. -CXR ordered to r/o any infectious processes -MRI brain w new acute.subacute cva bilaterally; CTA as above -No recent ECHO results available (need requested from malik) -continue aspirin and statin currently, cardiology recommending full dose AC when ok from neuro-likely Thursday -Neurochecks 4hrs -Fall precautions; up with assistance -PT/OT/ST eval and tx -Dr Rodgers, Neurology consulted -cont tele -discussed w cardiology, SHIVAM done, will need extended cardiac monitoring, describes what sounds like event monitor use in the past, and now OSH requested loop monitor -CTA CAP ordered by rec's from cards/vascular -diffuse atherosclerotic dz. No abdom pain w eating -CTS consulted - no surgical plan -vascular consult Thursday -depakote for seizure prophy -baseball coach recommending consider AC, pt has been on DAPT when this episode occurred. Will discuss w neuro -carotid doppler pendig UTI: UA positive. >100 WBCs, 3+LEs -Urine culture showing enterococcus, rocephin-->ampicillin, will request from rehab sensitivities -dc IVFs -Strict intake and output -dc fernandez - voiding spontaneously Type 2DM: -HgbA1c 6.2 -Blood glucose monitoring ACHS. -SSI ordered -Hold dose of metformin HTN: -Hold antihypertensives to avoid hypotension -resume when appropriate -routine VS; monitor BP closely Voice recognition software MModal Fluency Direct was used dictate and transcribe this document. Project Manager variances may occur. Despite proofreading, typographical errors may occur. For patients or family members viewing this note through Movent: This note was written as a communication tool between healthcare providers and may contain technical language, terminology and abbreviations that is difficult to interpret without advanced medical training. If you have questions or concerns regarding what is written in this note, please request to speak with the primary medical team taking care of you or your family member. Sosa Andino MD 04/24/2024 7:53 AM * DelgadoLalita, NANOTECHNICIAN - 04/23/2024 9:04 AM CDT Physical Therapy 04/23/24 0904 PT Last Visit Session Type Treatment PT Received On 04/23/24 Safe Environment Arm band checked;Patient found in supine;Gait belt utilized for all out of bed mobility Subjective Agreeable to Therapy Subjective Comment Pt feeling okay. Family/Caregiver Present Yes Precautions Precaution Comments tele, alarm Pain Assessment Pain Assessment No/denies pain Cognition Orientation Oriented to person Seated Seated-Exercise Comments Attempted seated exercise with pt. She is slow to follow commands. Required AAROM to PROM for L side Bed Mobility 1 Bed Mobility From 1 Supine Bed Mobility Type 1 To Bed Mobility to 1 Edge of bed Level of Assistance 1 Maximum Assist Bed Mobility Comments 1 maxA x 2, once EOB pt sat with CGA to Anjali for safety and neglect off the left side Transfer 1 Transfer From 1 Sit Transfer Type 1 To Transfer to 1 Stand Technique 1 Sit to stand;Stand to sit Transfer Device 1 No device Transfer Level of Assistance 1 Moderate Assist Trials/Comments 1 modA x 2 to stand, pt soiled, sat back down to rest. Stood again when PCT was in room to clean pt as she was standing. Transfers 2 Transfer From 2 Bed Transfer Type 2 To Transfer to 2 Chair with arms Technique 2 Stand and step;Stand pivot Transfer Device 2 Wheeled walker Transfer Level of Assistance 2 Moderate Assist Trials/Comments 2 ModA 2, pt took a few steps, but then had to be pivoted to chair. Safe Environment End of Therapy Session Safe Environment End of Therapy Session Patient left in recliner;Chair alarm in place and activated;RN notified;Call light within reach;Overbed table within reach Plan Plan Continue with current plan Recommendation/Plan PT Recommendation/Plan Inpatient Rehab Facility Patient at high risk for Falls;Readmission;Injury due to decreased ability to care for self;Injury due to reduced functional status;Injury at home as patient has not returned to prior level of function Recommend Inpatient Rehab/Acute Rehab due to Ability to actively participate in intensive therapy 3hours/day, 5 days/week or 900 minutes per week;Highly motivated to participate in therapy;Not at baseline due to impaired ability to complete ADLs;Impaired ability to complete functional mobility;Likely to return to the community at discharge with support system in place;Requires greater than 25% physical assistance with most mobility tasks;Requires greater than 25% physical assistance with most ADL tasks;Requires multiple therapy disciplines to address functional deficits;Patient and caregiverrequire specialized skilled training due to new level of function/diagnosis;Requires skilled therapy interventions to address neurological deficits Progress during current admission Progressing toward goals Time Calculation Start Time 903 Stop Time 925 Time Calculation (min) 22 min Principal Investigator Services Utilized: NO Educated the patient to the role of physical therapy, plan of care, goals of therapy, rationale forprogressing mobility and home exercise program. Patient was left with all needs met and equipment intact. Mobility and ADL status posted at bedsideand within medical record. Multi-Disciplinary Problems (from Physical Therapy) Active Problems Problem: PT [facility] Start Date: 04/20/24 Goal Start Date Expected End Date End Date PT [facility] 1 04/20/24 05/04/24 -- Goal Details: Pt will transfer supine<>sit with min assist x 1 -progressing Goal Start Date Expected End Date End Date PT [facility] 2 04/20/24 05/04/24 -- Goal Details: Pt will transfer bed<>chair with assistive device as needed with min assist x 1 -progressing Goal Start Date Expected End Date End Date PT [facility] 3 04/20/24 05/04/24 -- Goal Details: Pt will sit at edge of bed with supervision for balance, x 5 minutes -progressing Goal Start Date Expected End Date End Date PT [facility] 4 04/20/24 05/04/24 -- Goal Details: Pt will ambulate 25 feet with assistive device as needed with min assist x 1 -NT Goal Start Date Expected End Date End Date PT [facility] 5 04/20/24 05/04/24 -- Goal Details: Pt will perform BLE seated therex x 10 reps each with supervision -progressing * Sosa Andino MD - 04/23/2024 7:41 AM CDT General Medicine Daily Progress SUBJECTIVE Chief complaint of Pt w recent CVA w L UE and LLE weakness, HTN, DM, RA, presents to OSH ED from rehab for AMS 1-2 days. CTH concerning for new cva, also being treated for UTI w cefdinir Neuro consulted Placed on rocephin overnight MRI resulted Pt has had event monitoring December 2023, sinus rhythm, no afib, flutter mentioned see care everywhere Will request UA.Urine cx result from [place] [facility] re[facility] Husbands states fernandez placed in the last week or so Pt deny dysuria, discomfort w urination Major cva in January and in mar, was sjust transferred to rehab after stroke teated at [place] [facility] in [facility] in [place]. LUE LLE paresis Pt appear at baseline now this early afternoon according to Gbp was just restarted but taking as needed at rehab . Interval History: Vss CTA w significant posterior cirv disease Neuro recommended SHIVAM and extended cardiac monitoring In room w , supposed to have loop recorder placed this wk in [place] Has L ankle mvmt > L knee, hip mvmt, L hand shop director soft, able to roll elbow and was observed to bring L hand to her glasses w/o her realizing during therapy session today Though pt complains of pain w L sided mvmt 04/22 Vss EEG w L temporal discharge SHIVAM td w significant atherosclerotic dz descending aorta Brother in room 04/23 Vss SHIVAM w significant amt of atherosclerotic dz, mobile atheroma in descending aorta and arch, labml's excresence in aortic valve cusps CTA CAP recommended/ordered.resulted-infrarenal abdom aortic aneurysm 3cm, severe stenosis of SMA, R renal artery, L common carotid origin, Data Analytics Architect and CTS consulted. Recommend anticoagulation when ok from neuro, CTS to see Pt needs repeated encouragement for eating/drinking, does better with family nearby. Lots of anxiety, even w family here Urine from OSH w enterococcus, rocephin switched to ampicillin Requested further records for blood cx and Urine cx w sensitivty if available Questionable Urinary retention resoled prior to straight cath last night Pt in room w , calm No abdom pain w eating OBJECTIVE Vitals: 24hr Min/Max: Temp Min: 36.6 ??C (97.9 ??F) Max: 36.9 ??C (98.4 ??F) Pulse Min: 84 Max: 99 BP Min: 116/63 Max: 150/90 Resp Min: 8 Max: 20 SpO2 Min: 94 % Max: 100 % Most Recent : Vitals: 04/23/24 0724 BP: 144/76 Pulse: 92 Resp: 18 Temp: 36.9 ??C (98.4 ??F) SpO2: 97% I/O last 2 completed shifts: In: 1400 [P.O.:800; I.V.:300; IV Piggyback:300] Out: 769 [Urine:769] No intake/output data recorded. Physical Exam: General Exam: In no acute distress Skin: Dry, Warm. ABSENT: Jaundice, Rash Head: Atraumatic, Normocephalic Ears, Nose, Mouth, Throat: Ext. ears & nose normal, Moist mucous membranes Neck: Supple Cardiovascular: Normal range, Regular rhythm, S1S2 normal. ABSENT: Edema Respiratory: CTA bilaterally, Effort normal ABSENT: Crackles, Rhonchi Abdomen: Bowel sounds present, Soft. ABSENT: Mass, Tenderness, Distention Musculoskeletal/Extremities: Joints normal Neurological: poor vision, intact in RLQ. Overall decr motor function in L side, worse in LLE, has resistance in LUE, LLE w/d to pain, no mvmt on verbal command Psychiatric: Affect appropriate, Alert Psychiatric - Orientation: Oriented to: Time, Place, Person Lab/Current Medication Review: Recent Results (from the past 24 hour(s)) POCT glucose Collection Time: 04/22/24 12:02 PM Result Value Ref Range Glucose, POC 123 70 - 199 mg/dL Glucose comment 1 Use This Result POCT glucose Collection Time: 04/22/24 4:03 PM Result Value Ref Range Glucose, POC 167 70 - 199 mg/dL Glucose comment 1 Use This Result POCT glucose Collection Time: 04/22/24 7:53 PM Result Value Ref Range Glucose, POC 134 70 - 199 mg/dL Glucose comment 1 Use This Result CTA Head Neck W WO Contrast Result Date: 04/20/2024 Narrative: EXAM DESCRIPTION: CTA HEAD NECK W WO CONTRAST REASON FOR STUDY: Acute altered mental status for 2 days in a patient reportedly being treated for UTI. Provided focal neurologic deficits. Noprovided history of trauma. 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 No provided surgical history. TECHNIQUE: Axial images were first obtained through the brain without contrast. Axial dynamic scanning technique with dynamic contrast enhancement through the intracranial and extracranial carotid and vertebral arteries. Multiplanar reconstruction. All stenosis measurements are based on NASCET criteria.3D MIP images rendered on scanning unit and reviewed at time of interpretation. Automated exposure control was used as a dose optimization technique for this examination. CONTRAST TYPE/DOSE: 100 mL Optiray 350 injected via peripheral IV site without reported incident. COMPARISON: MRI brain without contrast performed earlier same day FINDINGS: BRAIN: No CT evidence of acute intracranial hemorrhageor increased intracranial pressure. Please reference MRI brain performed earlier same day for detailed evaluation of bilateral, qxvvp-xegnatx-pvqr-left, acute infarcts superimposed on constellation of chronic findings. 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 Patent left PACKAGE WINDER, noting variable, to include severe, stenosis along its course. The anterior, middle, posterior cerebral arteries are all patent. No aneurysm. POSTERIOR CIRCULATION: Vertebral arteries as below. Patent basilar artery. No aneurysm. BRAIN: No gross evidence of [...] VERTEBRAL: Patent with calcific atherosclerosis producing at least 50% stenosis of the takeoff of the right vertebral artery with variable stenosis along its course. AORTIC ARCH: Three-vessel aortic arch. Patent subclavian arteries with calcific atherosclerosis producing variable stenosis. NECK SOFT TISSUE: No acute abnormality. No thyroid nodule greater than 1 cm. INCLUDED LUNGS: Biapical pleuroparenchymal scarring. OTHER: No other significant finding. IMPRESSION: No CT evidence of acute intracranial hemorrhage or increased intracranial pressure. Please reference MRI brain performed earlier same day for detailed evaluation ofbilateral, lkudg-ttgvxyk-nfyr-left, acute infarcts superimposed on constellation of chronic findings. 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 Occlusion of the left [...] systems, with calcific atherosclerosis producing approximately 55-60% stenosisof the right ICA, without overt CT angiographic evidence of dissection. These significant findings were reported by telephone to patient's nurse Cris for ordering provider Arpan Rodgers on 04/20/2024 at 1554 . THIS IS AN ELECTRONICALLY VERIFIED FINAL REPORT 04/20/2024 3:57 PM - Electronically signed by Steven VALENZUELA T: Report ID: [id number] Reading Location: [id number] MRI Brain WO Contrast Result Date: 04/20/2024 Narrative: EXAM DESCRIPTION: MRI BRAIN WO CONTRAST REASON FOR STUDY: Hx of recent CVA, pt has increased weakness and decreased mental status. TECHNIQUE: Multiplanar imaging includes non-contrasted T1, T2, FLAIR, and diffusion with ADC map sequences. Additional sequence(s) sensitive to blood products. Images stored on PACS. COMPARISON: Head CT [...] EXTRAAXIAL SPACES: No abnormal extra-axial fluid collection. Normal size ventricles. BRAIN VOLUME: Moxt-wc-gacxtdnt cerebral volume loss. PITUITARY: Unremarkable. VASCULATURE: Skull base flow voids are present. ORBITS: No masses. Globes normal. PARANASAL SINUSES AND MASTOIDS: No significant mucosal thickening or fluid. OTHER: No other significant finding. IMPRESSION: Large acute infarct involving the right posterior cerebral artery territory. No acute intracranial hemorrhage or mass effect. Multifocal mixed age acute to subacute infarcts in the right parietal lobe, left frontal and parietal lobes,and left aspect of the splenium. Chronic left temporal lobe infarct with patchy diffusion hyperintensity and intermediate ADC signal could represent superimposed acute to subacute infarcts. Moderate sequela of chronic microvascular ischemic disease with chronic infarcts detailed above. These significant findings were reported by telephone to ELLIOT Bloom on 04/20/2024 at 12:35 p.m. THIS IS AN ELECTRONICALLY VERIFIED FINAL REPORT 04/20/2024 12:44 PM - Electronically signed by Angel Kyle M.D. AG T: Report ID: [id number] Reading Location: [id number] Neuro CT Outside Reference Result Date: 04/20/2024 Narrative: This order has been auto-finalized and does not contain a result. XR Chest 1 View Result Date: 04/20/2024 Narrative: EXAM DESCRIPTION: XR CHEST 1 VIEW REASON FOR STUDY: altered mental status Pt order sts: ams Pt chart sts: HTN; Hyperlipd. Recent stroke and discharged to rehab TECHNIQUE: 1 radiographic view(s) of the chest. COMPARISON: No prior studies are available for comparison at time of this dictation. FINDINGS: LUNGS: No focal opacity, pleural effusion, or pneumothorax. HEART/MEDIASTINUM: Cardiac silhouette normal in size. Mediastinal and hilar contours appear normal. LINES/TUBES: None. BONES:No acute osseous abnormality. IMPRESSION: No acute pulmonary process. THIS IS AN ELECTRONICALLY VERIFIED FINAL REPORT 04/20/2024 9:03 AM - Electronically signed by Johan Wilson M.D. MM T: Report ID: [id number] Reading Location: [id number] Current Facility-Administered Medications Medication Dose Route Frequency Provider Last Rate Last Admin acetaminophen (TYLENOL) tablet 650 mg 650 mg oral Q6H PRN aJmmie Dickson NP 650 mg at 04/22/24 1421 Or acetaminophen (TYLENOL) 32 mg/mL oral liquid 650 mg 650 mg feeding tube Q6H PRN KristenL. Dickson NP Or acetaminophen (TYLENOL) suppository 650 mg 650 mg rectal Q6H PRN Jammie Dickson NP ampicillin (OMNIPEN) 1,000 mg in sodium chloride 0.9% 100 mL IVPB 1,000 mg intravenous Q6H ROBERTO Sosa Andino MD aspirin enteric coated tablet 81 mg 81 mg oral Daily Jammie Dickson NP 81 mg at 04/22/24 1421 clopidogreL (PLAVIX) tablet 75 mg 75 mg oral Daily Sosa Andino MD 75 mg at 04/22/24 142 dextrose (GLUTOSE) 40 % gel 15 g 15 g oral Q15 Min PRN Jammie Dickson NP Or dextrose (D10W) 10% bolus 250 mL 250 mL intravenous Q15 Min PRN Jammie Dickson, CHAPINCITO divalproex (DEPAKOTE SPRINKLE) sprinkle capsule 500 mg 500 mg oral BID Sailaja Bloom PA 500 mg at 04/22/242038 ergocalciferol (VITAMIN D) capsule 50,000 Units 50,000 Units oral Weekly Sosa Andino MD FLUoxetine (PROzac) capsule 20 mg 20 mg oral Daily Sosa Andino MD 20 mg at 04/22/24 142 glucagon injection 1 mg 1 mg intramuscular Q30 Min PRN Jammie Dickson, [place]APIN[place]O hydrOXYzine (ATARAX) tablet 25 mg 25 mg oral Q6H PRN Sosa Andino MD 25 mg at 04/22/24 191 insulin lispro (HumaLOG, ADMELOG) 100 unit/mL injection 0-4 Units 0-4 Units subcutaneous Nightly Jammie Dickson NP insulin lispro (HumaLOG, ADMELOG) 100 unit/mL injection 0-5 Units 0-5 Units subcutaneous TID with meals Jammie Dickson NP 1 Units at 04/22/24 175 leflunomide (ARAVA) tablet 20 mg 20 mg oral Daily Sosa Andino MD 20 mg at 04/22/24 1421 rosuvastatin (CRESTOR) tablet 20 mg 20 mg oral Daily Jammie Dickson, SURGICAL TERRITORY MANAGER 20 mg at 04/22/24 1421 sodium chloride 0.9% flush 0.5-20 mL 0.5-20 mL intra-catheter Q8H ROBERTO Jammie Dickson, SURGICAL TERRITORY MANAGER 10mL at 04/23/24 0532 sodium chloride 0.9% flush 0.5-20 mL 0.5-20 mL intra-catheter PRN Jammie Dickson, CHAPINCITO A/P: MDM Principal Problem: Altered mental status, unspecified altered mental status type Active Problems: HTN (hypertension) Hyperlipidemia Type 2 diabetes mellitus (HCC) UTI (urinary tract infection) CVA (cerebral vascular accident) (HCC) 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 Altered Mental Status Worsening CVA; post recent CVA with left sided hemiplegia (Apr 07, 2024): Severe atherosclerotic disease with mobile atheroma, lambl;s excresence L common carotid artery stenosis Transferred from OSH for AMS likely 2/2 Worsening CVA based 'n CT head vs UTI. -CXR ordered to r/o any infectious processes -MRI brain w new acute.subacute cva bilaterally; CTA as above -No recent ECHO results available (need requested from [facility]) -continue aspirin and statin currently, cardiology recommending full dose AC when ok from neuro-likely Thursday -Neurochecks 4hrs -Fall precautions; up with assistance -PT/OT/ST eval and tx -Dr Rodgers, Neurology consulted -cont tele, pt not on ACs -discussed w cardiology, SHIVAM done, will need extended cardiac monitoring, describes what sounds like event monitor use in the past, and now OSH requested loop monitor -CTA CAP ordered by rec's from cards/vascular -diffuse atherosclerotic dz. No abdom pain w eating -CTS consulted UTI: UA positive. >100 WBCs, 3+LEs -Urine culture showing enterococcus, rocephin-->ampicillin, will request from rehab sensitivities -dc IVFs -Strict intake and output -dc fernandez - voided spontaneous last night and this am Type 2DM: -HgbA1c 6.2 -Blood glucose monitoring ACHS. -SSI ordered -Hold dose of metformin HTN: -Hold antihypertensives to avoid hypotension -resume when appropriate -routine VS; monitor BP closely Voice recognition software [employer] was used dictate and transcribe this document. Project Manager variances may occur. Despite proofreading, typographical errors may occur. For patients or family members viewing this note through MakerBoth[employer]: This note was written as a communication tool between healthcare providers and may contain technical language, terminology and abbreviations that is difficult to interpret without advanced medical training. If you have questions or concerns regarding what is written in this note, please request to speak with the primary medical team taking care of you or your family member. Sosa Andino MD 04/23/2024 7:41 AM * Radha Land NP - 04/23/2024 7:38 AM CDT [facility] Cardiology Progress Note Patient Id: Lynn Zelaya is a 63 y.o. female. MR#: [id number] Reason for consultation: mobile atheroma on SHIVAM with acute strokes HPI: Patient is a 63 y.o. female with PMHx 5 CVAs since 06/2023, HTN, HLD who presents to ED with chief complaint of altered mental status 1-2 days. Pt has had 5 CVAs since 06/2023 with residual left sided hemiparesis. 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 Patient has been following with [facility] [employer] with plans for implantable loop recorder. SUBJECTIVE 04/22/2024: Patient is currently sitting up in bed in no apparent distress on room air. She currently denies chest pain, change in vision, dizziness, SOB, palpitations. She tolerated the SHIVAM well. We discussed her findings with recommendation for anticoagulation, ASA 81 mg daily, as well as high-intensity statin. She is agreeable to this plan. I called and spoke with the patient's , Oneil, and we discussed the findings of the SHIVAM and our recommendation for anticoagulation going forward. Patient does not have a history of any bleeding diatheses. Her is agreeable tothe plan. Advised neurology will repeat imaging prior to starting anticoagulation on Thursday at the soonest. We also discussed pending recommendation from CTS regarding findings of mobile atheroma andLambl's excrescence with now 5 strokes. 04/23/24: Awaiting CT surgery recommendations. at patient side today. Patient up in her recliner, lethargic, falling asleep during conversation, said she did not sleep well last night. She denies any chest pain or pressure, denies any dyspnea or SOB or trouble breathing at this time, deniesany palpitations or rapid heart beat sensations or flutterings. Previous Cardiovascular Procedures and Past Medical History HTN HLD CVAs Echo Doppler SHIVAM 04/22/2024 showing normal LV systolic function and size, normal RV function and size, dilated left atrium. Left atrial appendage free of thrombus in multiple views. Bubble study negative for shunt. Mild anterior mitral valve prolapse with mild-moderate MR with mild mitral stenosis with mean gradient 6 mm Hg, mild TR, settled mobile entities on aortic valve cusps consistent with Lambl's excrescence, mild pulmonic valve regurgitation, aortic root normal size, IVC not well visualized, very severe aortic atherosclerosis in descending aorta and the arch with minimally mobile atheroma. 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 04/22/24 CTA Chest: VASCULATURE - Ascending thoracic aorta is patent without marked irregularity stenosis or aneurysmal segment. Transverse thoracic aorta demonstrates atherosclerotic changes extending to the great vessels producing moderate irregularity and moderate to severe stenosis notable at the origin of the left common carotid artery. Lesser changes left subclavian and brachiocephalic arteries. Left vertebral artery is not visualized proximally though as partially visualized on highest available sections, this may be reconstituted from proximal occlusion. Please correlate clinically. Descending thoracic aorta demonstrates moderate atherosclerotic irregularity without high-grade stenosis or aneurysmal segment. No deep ulceration. SUPERIOR MESENTERIC ARTERY: Severe stenosis due to calcified and noncalcified plaque at the origin. RIGHT RENAL ARTERY: Severe stenosis with calcified and noncalcified plaque. LEFT RENAL ARTERY: Duplicated without high-grade stenosis. INFERIOR MESENTERIC ARTERY: No flow limiting stenosis, dissection, or aneurysm. AORTA: Abdominal aorta demonstrates diffuse atherosclerotic calcified and noncalcified plaque with moderate irregularity. No deep ulceration or surrounding induration. Mild fusiform aneurysmal dilatation infrarenal segment measures up to 3.0 cm. ILIAC ARTERIES:Distal abdominal aorta demonstrates heavily calcified plaque extending to the internal iliac bilaterally producing 50-75% stenosis at the origin on the right and continuing with moderate stenosis through the common iliac artery. The internal and external iliac arteries are patent with segments of moderate to severe stenosis. Left common iliac artery demonstrates calcified plaque with regions of 50-75% stenosis extending to the external iliac. Left internal iliac is patent with a severe proximal stenosis. CHEST HEART: Heart size is normal with no pericardial effusion. Past Medical History: Diagnosis Date Arthritis Hypertension Hypertension RA (rheumatoid arthritis) (HCC) Stroke (HCC) History reviewed. No pertinent surgical history. Social History Tobacco Use Smoking status: Former Current packs/day: 0.00 Types: Cigarettes Quit date: 2009 Years since quittin.7 Smokeless tobacco: Never Substance and Sexual Activity Drug use: Not Currently Types: Tobacco Sexual activity: None Alcohol Use: Not At Risk (04/20/2024) AUDIT-C Frequency of Alcohol Consumption: Never Average Number of Drinks: Patient does not drink Frequency of Binge Drinking: Never Family History Problem Relation Age of Onset Diabetes Mother Hypertension Mother Hypertension Father Diabetes Sister Hypertension Sister Prostate cancer Other Family history of Cancer, prostate; Hypertension Other Family history of Hypertension; HOME MEDICATIONS : aspirin 81 mg enteric coated tablet clopidogreL (PLAVIX) 75 mg tablet FLUoxetine (PROzac) 20 mg tablet gabapentin (NEURONTIN) 300 mg capsule hydrOXYzine (ATARAX) 25 mg tablet leflunomide (ARAVA) 20 mg tablet rosuvastatin (CRESTOR) 20 mg tablet tamsulosin (FLOMAX) 0.4 mg extended release capsule verapamil SR (CALAN SR) 180 mg CR tablet ondansetron (ZOFRAN) 4 mg tablet HOSPITAL PROBLEMS: Principal Problem: Altered mental status, unspecified altered mental status type Active Problems: HTN (hypertension) Hyperlipidemia Type 2 diabetes mellitus (HCC) UTI (urinary tract infection) CVA (cerebral vascular accident) (HCC) 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 REVIEW OF SYSTEMS Negative unless noted in HPI Allergies Allergen Reactions Lisinopril Other (See comments) Cough HOME MEDICATIONS : aspirin 81 mg enteric coated tablet clopidogreL (PLAVIX) 75 mg tablet FLUoxetine (PROzac) 20 mg tablet gabapentin (NEURONTIN) 300 mg capsule hydrOXYzine (ATARAX) 25 mg tablet leflunomide (ARAVA) 20 mg tablet rosuvastatin (CRESTOR) 20 mg tablet tamsulosin (FLOMAX) 0.4 mg extended release capsule verapamil SR (CALAN SR) 180 mg CR tablet ondansetron (ZOFRAN) 4 mg tablet Scheduled Medications: Scheduled Medications Medication Dose Route Frequency ampicillin (OMNIPEN) 1,000 mg in sodium chloride 0.9% 100 mL IVPB 1,000 mg intravenous Q6H [facility] aspirin enteric coated tablet 81 mg 81 mg oral Daily clopidogreL (PLAVIX) tablet 75 mg 75 mg oral Daily divalproex (DEPAKOTE SPRINKLE) sprinkle capsule 500 mg 500 mg oral BID ergocalciferol (VITAMIN D) capsule 50,000 Units 50,000 Units oral Weekly FLUoxetine (PROzac) capsule 20 mg 20 mg oral Daily insulin lispro (HumaLOG, ADMELOG) 100 unit/mL injection 0-4 Units 0-4 Units subcutaneous Nightly insulin lispro (HumaLOG, ADMELOG) 100 unit/mL injection 0-5 Units 0-5 Units subcutaneous TID with meals leflunomide (ARAVA) tablet 20 mg 20 mg oral Daily rosuvastatin (CRESTOR) tablet 20 mg 20 mg oral Daily sodium chloride 0.9% flush 0.5-20 mL 0.5-20 mL intra-catheter Q8H [facility] Continuous Medications: Current Facility-Administered Medications Medication Dose Route Frequency Last Admin PRN Medications: acetaminophen, 650 mg, 650 mg at 04/22/24 1421 OR acetaminophen, 650 mg OR acetaminophen, 650 mg dextrose, 15 g OR dextrose, 250 mL glucagon, 1 mg hydrOXYzine, 25 mg, 25 mg at 04/22/24 1918 sodium chloride 0.9%, 0.5-20 mL PHYSICAL EXAMINATION BP 144/76 Pulse 92 Temp 36.9 ??C (98.4 ??F) Resp 18 Ht 160 cm (5' 3 ) Wt 56.3 kg (124 lb 1.6 oz) SpO2 97% BMI 21.98 kg/m?? Arrival Vitals [04/20/24 0338] Temp 37.4 ??C (99.3 ??F) Pulse 107 Resp 20 BP 106/92 SpO2 97 % Temp src Oral Heart Rate Source Patient Position Lying BP Location Right arm FiO2 (%) 24hr Min/Max: Temp Min: 36.6 ??C (97.9 ??F) Max: 36.9 ??C (98.4 ??F) Pulse Min: 84 Max: 99 BP Min: 116/63 Max: 150/90 Resp Min: 8 Max: 20 SpO2 Min: 94 % Max: 100 % General: No acute distress, cooperative Neck: Supple, nontender, trachea midline. There is no jugular venous distention at 45??. Carotids are brisk and equal without bruits. Respiratory: Clear to auscultation bilaterally Cardiovascular: S1-S2 normal, grade 1/6 systolic murmur Gastrointestinal: abd soft, non-tender Extremities: no cyanosis, clubbing or edema, bilaterally. Skin: warm and dry with no obvious rash or bruising Psychiatric: Pleasant, oriented Neurologic: Alert, oriented, LABS Recent Labs Lab Units 04/22/24 0716 04/20/24 0424 HEMOGLOBIN g/dL 8.8* 9.2* HEMATOCRIT % 27.9* 29.6* WBC K/cumm 5.8 7.4 PLATELETS K/cumm 262 252 Recent Labs Lab Units 04/22/24195204/22/2417 04/22/24 0716 04/20/24 0809 04/20/24 0424 SODIUM mmol/L -- -- 140 -- 139 POTASSIUM PLASMA mmol/L -- -- 3.8 -- 4.0 CHLORIDE mmol/L -- -- 105 -- 102 CO2 mmol/L -- -- 27 -- 26 ANIONGAP mmol/L -- -- 8 -- 11 GLUCOSE mg/dL -- -- 117 -- 115 POC GLUCOSE MONITOR mg/dL 134 < > -- < > -- BUN SERUM mg/dL -- -- 13 -- 18 CREATININE mg/dL -- -- 0.81 -- 0.95 CALCIUM mg/dL -- -- 9.6 -- 9.4 ALBUMIN g/dL -- -- 3.7 -- 3.8 ALK PHOS Units/L -- -- -- -- 69 ALT Units/L -- -- -- -- 16 AST Units/L -- -- -- -- 27 BILIRUBIN TOTAL mg/dL -- -- -- -- 0.3 < > = values in this interval not displayed. Recent Labs Lab Units 04/22/2471504/20/24423 HEMOGLOBIN g/dL 8.8* 9.2* HEMATOCRIT % 27.9* 29.6* WBC K/cumm 5.8 7.4 PLATELETS K/cumm 262 252 Recent Labs Lab Units 04/22/24195204/22/2471604/22/2471504/20/2480804/20/24423 SODIUM mmol/L -- -- 140 -- 139 POTASSIUM PLASMA mmol/L -- -- 3.8 -- 4.0 CHLORIDE mmol/L -- -- 105 -- 102 CO2 mmol/L -- -- 27 -- 26 ANIONGAP mmol/L -- -- 8 -- 11 GLUCOSE mg/dL -- -- 117 -- 115 POC GLUCOSE MONITOR mg/dL 134 < > -- < > -- BUN SERUM mg/dL -- -- 13 -- 18 CREATININE mg/dL -- -- 0.81 -- 0.95 CALCIUM mg/dL -- -- 9.6 -- 9.4 ALBUMIN g/dL -- -- 3.7 -- 3.8 ALK PHOS Units/L -- -- -- -- 69 ALT Units/L -- -- -- -- 16 AST Units/L -- -- -- -- 27 BILIRUBIN TOTAL mg/dL -- -- -- -- 0.3 < > = values in this interval not displayed. Recent Labs Lab Units 04/20/24423 TSH mcIUnit/mL 1.80 No lab exists for component: D-DIMER , QUANTITATIVE Recent Labs Lab Units 04/20/24423 LDL CALC mg/dL 48 HDL mg/dL 38* Lab Results Component Value Date HGBA1C 6.2 (H) 04/20/2024 Lab Results Component Value Date TSH 1.80 04/20/2024 No results found for: DIGOXIN Intake/Output: I/O last 2 completed shifts: In: 1400 [P.O.:800; I.V.:300; IV Piggyback:300] Out: 769 [Urine:769] No intake/output data recorded. Intake/Output Summary (Last 24 hours) at 04/23/2024 0738 Last data filed at 04/23/2024 0625 Gross per 24 hour Intake 1400 ml Output 769 ml Net 631 ml Diagnostics: Telemetry independently interpreted: Sinus rhythm rate 80-90s bpm, no ectopy noted. 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 -Valvular prolapse and stenosis. -mild pulmonic valve regurgitation -mild anterior mitral valve prolapse -04/20/24 TSH 1.80 -continue statin, BP control, dietary changes to improve A1C 6.2 and Chol panel. #Severe aortic atherosclerosis with mobile atheroma #Lambl's excrescence #Extensive systemic arterial stenosis and atherosclerosis -cardiology was consulted after findings of SHIVAM showing subtle mobile entities on aortic valve cuspconsistent with Lambl's excrescence(because on valve closure area may result in thrombus formation), severe aortic atherosclerosis in descending aorta and the arch with minimally mobile atheroma. -CTA chest abdomen pelvis shows that patient has extensive systemic arterial stenosis and atherosclerosis: Descending thoracic aorta demonstrates moderate atherosclerotic irregularity, Abdominal aorta demonstrates diffuse atherosclerotic calcified and noncalcified plaque with moderate irregularity ; SUPERIOR MESENTERIC ARTERY: Severe stenosis due tocalcified and noncalcified plaque at the origin; RIGHT RENAL ARTERY: Severe stenosis with calcifiedand noncalcified plaque. LEFT RENAL ARTERY: calcified and noncalcified plaque. -due to patient having 5 suspected cardioembolic strokes since 06/2023; recommendation would be to start anticoagulation with Eliquis b.i.d. and continue ASA 81 mg daily when cleared by Neurology to start anticoagulation -continue rosuvastatin 20 mg daily -Cardiothoracic surgeon consultation ordered due to patient having mobile atheroma and Lambl???s excrescences with multiple CVAs. #multiple CVAs -Carotid and Systemic stenosis concerning. 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 Patent left PACKAGE WINDER, noting variable, to include severe, stenosis along its course. RIGHT CAROTIDS: noting calcificatherosclerosis of the bifurcation/bulb produces approximately 55-60% stenosis of the right ICA. LEFT VERTEBRAL: Occlusion of the left vertebral artery at the expected point of takeoff with slight scattered diminutive caliber reconstitution along the V2 to V3 segments prior to further occlusion. RIGHT VERTEBRAL: Patent with calcific atherosclerosisproducing at least 50% stenosis of the takeoff of the right vertebral artery with variable stenosisalong its course. -Neurology following. -MRI showing acute ischemia in R PACKAGE WINDER territory to include basal ganglia, occipital and temporal lobes with subacute infarcts right parietal, left frontal, parietal and splenium concerning for cardioembolic nature; MRI: Moderate sequela of chronic microvascular ischemic disease. -SHIVAM results as above. -Eliquis not necessary from cardiology standpoint as no thrombus on SHIVAM, but due to atherosclerosisin descending aorta, should consider Eliquis/systemic anticoagulation. -Continue Aspirin in definitely -patient plans to have loop recorder placed in the future due to multiple embolic strokes in the past - neuro with no recommendations for loop recorder. -patient currently continues on ASA and Plavix or Eliquis per Neurology management -consider outpatient cardiac MRI after discharge. -Ordered Carotid Doppler Study. Hospitalist may consider Vascular Consultation with her extensive stroke occurrence and risk. #HTN BPs stable, 119/73 - 144/76 -BP well-controlled, avoid hypotension, allowing reperfusion -not currently taking antihypertensives, if SBP>150s consider starting anti-hypertensive. #hyperlipidemia -04/20/2024 Chol 103, LDL 48, HDL 38, trig 85 -continue rosuvastatin 20 mg daily -monitor LFTs and renal fxn and chol panel every 3-6 months. Recommended further Carotid work up/evaluation that the Hospitalist may F/U on. Cardiology will sign off as BPs are well controlled and systemic anticoagulation recommendations have been made. On behalf of [facility] at [facility], we appreciate the opportunity to participate inthe care of your patient. Please feel free to contact us for any questions regarding your patient'scare. Radha Land NP [facility] Cardiology Office: [phone] 04/23/2024 7:38 AM This examination was transcribed using the [employer] voice recognition system. Despite proofreading, this report may retain undetected typographical, grammatical, and syntactical errors. Please contact me if you have any questions. Cosigned by Sultan Bandar Real MD at 04/23/2024 4:59 PM CDT Associated attestation - Sultan Bandar Real MD - 04/23/2024 4:59 PM CDT Attending Physician Supervisory Note For this patient encounter, I have evaluated and examined patient independently of nurse practioner. I have personally seen and had [id number] time with the patient and all substantive findings of the patients history and examination documented by nurse practioner have been personally reviewed and/or examined. I have personally reviewed all relevant imaging, labs and pathology relevant to this encounter. Collaboration and editing where applicable. I recommended a carotid Doppler study to be done. * Kimber Baker, NANOTECHNICIAN - 04/22/2024 3:02 PM CDT 1502 Physical Therapy 04/22/24 1502 PT Last Visit Session Type Treatment PT Received On 04/22/24 Safe Environment Arm band checked;Patient found in supine;Session completed bedside Subjective Agreeable to Therapy Subjective Comment per Nurse Lianne ok to work with pt this afternoon for bed level activity. nusring needing to place IV for c-t skan this afternoon. Family/Caregiver Present No Precautions Precautions Bed/Chair Alarm;Fall risk Precaution Comments tele,IV access Activity Tolerance Endurance Tolerates 10 - 20 min activity with multiple rests Pain Assessment Pain Assessment 0-10 Dickinson-Reyna FACES Pain Rating 4 Pain Score 4 Patient's Stated Pain Goal No pain Pain Type Chronic pain Chronic Pain Precipitating Factors At Rest Chronic Pain Alleviating Factors Medication Pain Location Back (Lumbar) Pain Orientation Lower Pain Descriptors Aching Pain Frequency Intermittent Pain Onset Ongoing Clinical Progression Not changed Pain Interventions Medication (See MAR) Response to Interventions Full pain relief Exercises Straight Leg Raise 10 Hip Abduction 10 Knee AROM Short Arc Quad 10 Ankle Pumps 10 Supine Supine-Exercises Bilateral;Lower extremity Reps/Sets 10 Supine-Motion AAROM;PROM Supine-Exercise Comments Prom LLE, AArom RLE, session shortened as pt's Nurse came in to place IV for pt to go for C-t skan Plan Plan Continue with current plan Recommendation/Plan PT Recommendation/Plan (S) Inpatient Rehab Facility Patient at high risk for Falls;Readmission;Injury due to decreased ability to care for self Recommend Inpatient Rehab/Acute Rehab due to Ability to actively participate in intensive therapy 3hours/day, 5 days/week or 900 minutes per week;Highly motivated to participate in therapy;Not at baseline due to impaired ability to complete ADLs;Impaired ability to complete functional mobility;Requires greater than 25% physical assistance with most mobility tasks;Requires greater than 25% physical assistance with most ADL tasks;Requires multiple therapy disciplines to address functional deficits PT Frequency during current admission 5-7x/wk Treatment/Interventions during current admission Balance Training;Bed mobility;Endurance training;Functional activity;Functional transfer training;Gait training;Parent/caregiver training and education;Range of motion;Strengthening;Therapeutic activity;Therapeutic exercise;Transfer training;Neuromuscular re-education PT Equipment Recommended (to be determined at rehab) Progress during current admission Progressing toward goals Time Calculation Start Time 1502 Stop Time 1516 Time Calculation (min) 14 min Principal Investigator Services Utilized: NO Patient is identified by name and date of on this visit. Educated the patient to the role of physical therapy, plan of care, goals of therapy, rationale forprogressing mobility and pursed lip breathing. Patient was left with all needs met and equipment intact. Mobility and ADL status posted at bedsideand within medical record. Multi-Disciplinary Problems (from Physical Therapy) Active Problems Problem: PT Misc Start Date: 04/20/24 Goal Start Date Expected End Date End Date PT LT - [facility] 1 04/20/24 05/04/24 -- Goal Details: Pt will transfer supine<>sit with min assist x 1 Goal Start Date Expected End Date End Date PT LTG - [facility] 2 04/20/24 05/04/24 -- Goal Details: Pt will transfer bed<>chair with assistive device as needed with min assist x 1 -NT Goal Start Date Expected End Date End Date PT LTG - Misc 3 04/20/24 05/04/24 -- Goal Details: Pt will sit at edge of bed with supervision for balance, x 5 minutes -NT Goal Start Date Expected End Date End Date PT LTG - Misc 4 04/20/24 05/04/24 -- Goal Details: Pt will ambulate 25 feet with assistive device as needed with min assist x 1 -NT Goal Start Date Expected End Date End Date PT LTG - Misc 5 04/20/24 05/04/24 -- Goal Details: Pt will perform BLE seated therex x 10 reps each with supervision-progressing * Sailaja Bloom PA - 04/22/2024 12:26 PM CDT Images from the original note were not included. [facility] Neurology Progress Note Subjective: Lynn is an unfortunate 60yoF who was admitted on Apr 20, 2024 with her fifth stroke since Jun 2023. The first 4 strokes were worked up and treated at [facility] and the records are unavailable. This time she was at [facility] w CTH reported as worsening stroke and she was transferred to [facility] for neurology as there was not one available at [place]. Since there was no access to the prior records and what workup had been done, her PCP called to state prior strokes were all cryptogenic and she was to have a loop recorder implanted because no Afib was found on the event monitor. In dw the he stated after every stroke she was on 2 medications for a month after and then on ly ASA, assuming the other medication was Plavix. In light of all of this a full stroke workup was ordered. She was then noted to slowly but progressively improve her aphasia over the first day she was here and there was suspicion for possible post-ictal state as she is a prime candidate for post stroke epilepsy. Strokes in Jun in (asymptomatic), October (complete vision loss except lower R quadrant), January (expressive aphasia, couldn't name things but could have spontaneous conversation), Sept (L hemiparesis) and now (confusion). He states after every stroke she was on 2 medications for 30 days then she was only on ASA, she did not have refills of the other. Interval History: SHIVAM shows 2 etiologies for her embolic strokes. Current Facility-Administered Medications: acetaminophen (TYLENOL) tablet 650 mg, 650 mg, oral, Q6H PRN, 650 mg at 04/21/24 1758 OR acetaminophen (TYLENOL) 32 mg/mL oral liquid 650 mg, 650 mg, feeding tube, Q6H PRN OR acetaminophen (TYLENOL) suppository 650 mg, 650 mg, rectal, Q6H PRN, Jammie Dickson, [place] aspirin enteric coated tablet 81 mg, 81 mg, oral, Daily, Jammie Dickson NP, 81 mg at 04/21/24 0843 cefTRIAXone (ROCEPHIN) 1,000 mg/10 mL in sterile water (premix) 1,000 mg, 1,000 mg, intravenous, Q24H ROBERTO, Jammie Dickson, [place]APINCITO, 1,000 mg at 04/22/24 1156 clopidogreL (PLAVIX) tablet 75 mg, 75 mg, oral, Daily, Sosa Andino MD, 75 mg at 04/21/24 0843 dextrose (GLUTOSE) 40 % gel 15 g, 15 g, oral, Q15 Min PRN OR dextrose (D10W) 10% bolus 250 mL, 250 mL, intravenous, Q15 Min PRN, Jammie Dickson, SURGICAL TERRITORY MANAGER divalproex (DEPAKOTE SPRINKLE) sprinkle capsule 500 mg, 500 mg, oral, BID, Sailaja Bloom PA, 500 mg at 04/21/242000 ergocalciferol (VITAMIN D) capsule 50,000 Units, 50,000 Units, oral, Weekly, Sosa Andino MD FLUoxetine (PROzac) capsule 20 mg, 20 mg, oral, Daily, Sosa Andino MD, 20 mg at 04/21/24 1350 glucagon injection 1 mg, 1 mg, intramuscular, Q30 Min PRN, Jammie Dickson, SURGICAL TERRITORY MANAGER hydrOXYzine (ATARAX) tablet 25 mg, 25 mg, oral, Q6H PRN, Sosa Andino MD, 25 mg at 04/22/24 0259 insulin lispro (HumaLOG, ADMELOG) 100 unit/mL injection 0-4 Units, 0-4 Units, subcutaneous, Nightly, Jammie Dickson NP insulin lispro (HumaLOG, ADMELOG) 100 unit/mL injection 0-5 Units, 0-5 Units, subcutaneous, TID with meals, Jammie Dickson, [place]O leflunomide (ARAVA) tablet 20 mg, 20 mg, oral, Daily, Sosa Andino MD, 20 mg at 04/21/24 0843 rosuvastatin (CRESTOR) tablet 20 mg, 20 mg, oral, Daily, Jammie Dickson NP, 20 mg at 04/21/24 0843 sodium chloride 0.9% flush 0.5-20 mL, 0.5-20 mL, intra-catheter, Q8H ROBERTO, Jammie Dickson NP, 10 mL at 04/22/24 0501 sodium chloride 0.9% flush 0.5-20 mL, 0.5-20 mL, intra-catheter, PRN, Jammie Dickson NP traMADoL (ULTRAM) tablet 50 mg, 50 mg, oral, Q12H PRN, Sosa Andino MD, 50 mg at 04/22/24 0259 Vitals: 24hr Min/Max: Temp Min: 36.5 ??C (97.7 ??F) Max: 37.6 ??C (99.7 ??F) Pulse Min: 84 Max: 96 BP Min: 116/63 Max: 150/84 Resp Min: 8 Max: 20 SpO2 Min: 94 % Max: 100 % Most Recent : Vitals: 04/22/24 1128 BP: 125/76 Pulse: 88 Resp: 18 Temp: 36.9 ??C (98.4 ??F) SpO2: 96% I/O last 2 completed shifts: In: 460 [P.O.:440; I.V.:20] Out: 1100 [Urine:1100] I/O this shift: In: 300 [I.V.:300] Out: 0 General: GEN: NAD, pleasant, cooperative CVS: RRR, normal radial pulse CHEST: No signs of resp distress, on room air ABD: Soft, NTTP. Physical Exam: Cortical function: Awake, alert, follows commands, oriented to person, place and time Language: fluent, coherent, repition and naming intact. No dysarthria Normal memory and attention Cranial Nerves: Visual Jones are full to confrontation Pupils equally reactive to light, full EOM, no ptosis or nystagmus Lt facial sensation intact bilaterally, hearing intact to finger rub bilaterally Normal facial strength to eye closure and cheek puff Palate symmetric, symmetric shoulder shrug, normal tongue protrusion Motor: Abnormal movements: Bulk: Tone: Strength: Neck flexor Neck extensor Del Bi Tri WE FDI APB Manager Of Organizational Development IP KE KF TA EHL Rt Lt Reflexes Bi Tri Br KJ AJ Plantar Rt Lt Sensory Pinprick gradient: Temp gradient Proprioception Vibratory Cerebellar: FNF, REGIS and HKS intact bilaterally Gait: Normal stride and stance Normal tandem, heel and toe walk Negative Romberg's Stroke workup CTA: CTA R ICA bifurcation 55-60%, LICA no significant stenosis, L vert occluded, R vert 50% stenosis at the takeoff, aortic arch w calcific athero producing variable stenosis SHIVAM: Lambl's Excrescence, no ASD or PFO, very severe aortic athero in the descending aorta and thearch without highly mobile atheroma. It appears there is possible minimally mobile components. LDL 48, HDL 38 A1C 6.2 EEG: L temporal discharges, intermittent R occipital focal dysfunction (area of infarction) and generalized slowing. Assessment/plan The patient has acute ischemia in the R PACKAGE WINDER territory to include the basal ganglia, occipital and temporal lobes w subacute infarcts R parietal, L frontal, parietal and splenium on my independent review of MRI brain. Workup as above. With new finding on SHIVAM patient will likely need anticoagulation and technical support director follow up with Cardiology. Will consult cardio for further recs concerning this. There is no indication for loop recorder during this admission as there are multiple etiologies found for her embolic strokes. 2. Mental status changes - while this was thought to be 2/2 UTI, EEG was ordered as it could also be post ictal state which she has shown improvement since arrival. EEG shows L temporal sharps which corelates with an area of ischemia, she will need to start AED. In light of her episodes of anxiety and crying will start Depakote 500mg BID. She can have repeat EEG as an outpt with continued evaluation for if she needs to continue this medication. Ultram has been stopped and should not be resumed. This has been dw the hospitalist. Attempted to call but there was no answer. Cosigned by Arpan Rodgers MD at 04/22/2024 1:11 PM CDT * Kimber Baker PTA - 04/22/2024 10:22 AM CDT Physical Therapy 04/22/24 1022 PT Last Visit Session Type Treatment PT Received On 04/22/24 Subjective Comment pt off floor for SHIVAM, pt unable to have pain meds until after 2pm per Nurse Abdalla, hold therapy until after 2pm today, pt may participate if willing and able after pain meds given. PT Missed Visit Reason Procedure/testing/appointment Rehab Only - Missed Reasons - All Disciplines Procedures/testing * Annika Ruggiero COTA - 04/22/2024 9:44 AM CDT Occupational Therapy 04/22/24 0944 General Session Type Treatment OT Missed Visit Reason Procedure/testing/appointment (Attempted x2 this am (944, 1050), on both attempts pt off floor for SHIVAM.) Plan Plan Continue with current plan * Sosa Andino MD - 04/22/2024 7:28 AM CDT General Medicine Daily Progress SUBJECTIVE Chief complaint of Pt w recent CVA w L UE and LLE weakness, HTN, DM, RA, presents to OSH ED from rehab for AMS 1-2 days. CTH concerning for new cva, also being treated for UTI w cefdinir Neuro consulted Placed on rocephin overnight MRI resulted Pt has had event monitoring December 2023, sinus rhythm, no afib, flutter mentioned see care everywhere Will request UA.Urine cx result from [facility] re[facility] Husbands states fernandez placed in the last week or so Pt deny dysuria, discomfort w urination Major cva in January and in mar, was sjust transferred to rehab after stroke teated at [facility] Min vision in RLquadrant. LUE LLE paresis Pt appear at baseline now this early afternoon according to Gbp was just restarted but taking as needed at rehab . Interval History: Vss CTA w significant posterior cirv disease Neuro recommended SHIVAM and extended cardiac monitoring In room w , supposed to have loop recorder placed this wk in [place] Has L ankle mvmt > L knee, hip mvmt, L hand shop director soft, able to roll elbow and was observed to bring L hand to her glasses w/o her realizing during therapy session today Though pt complains of pain w L sided mvmt 04/22 Vss EEG w L temporal discharge SHIVAM td w significant atherosclerotic dz descending aorta Brother in room OBJECTIVE Vitals: 24hr Min/Max: Temp Min: 36.5 ??C (97.7 ??F) Max: 37.6 ??C (99.7 ??F) Pulse Min: 89 Max: 96 BP Min: 118/91 Max: 150/84 Resp Min: 17 Max: 20 SpO2 Min: 96 % Max: 100 % Most Recent : Vitals: 04/22/24 0338 BP: 150/84 Pulse: 89 Resp: 20 Temp: 37.2 ??C (99 ??F) SpO2: 97% I/O last 2 completed shifts: In: 460 [P.O.:440; I.V.:20] Out: 1100 [Urine:1100] No intake/output data recorded. Physical Exam: General Exam: In no acute distress Skin: Dry, Warm. ABSENT: Jaundice, Rash Head: Atraumatic, Normocephalic Ears, Nose, Mouth, Throat: Ext. ears & nose normal, Moist mucous membranes Neck: Supple Cardiovascular: Normal range, Regular rhythm, S1S2 normal. ABSENT: Edema Respiratory: CTA bilaterally, Effort normal ABSENT: Crackles, Rhonchi Abdomen: Bowel sounds present, Soft. ABSENT: Mass, Tenderness, Distention Musculoskeletal/Extremities: Joints normal Neurological: poor vision, intact in RLQ. Overall decr motor function in L side, worse in LLE, better LUE mvmt today, able to maintain elbow flexion w prox LUE resting on bed Psychiatric: Affect appropriate, Alert Psychiatric - Orientation: Oriented to: Time, Place, Person Lab/Current Medication Review: Recent Results (from the past 24 hour(s)) POCT glucose Collection Time: 04/21/24 8:05 AM Result Value Ref Range Glucose, POC 116 70 - 199 mg/dL Glucose comment 1 Use This Result POCT glucose Collection Time: 04/21/24 12:05 PM Result Value Ref Range Glucose, POC 152 70 - 199 mg/dL Glucose comment 1 Use This Result POCT glucose Collection Time: 04/21/24 4:57 PM Result Value Ref Range Glucose, POC 139 70 - 199 mg/dL Glucose comment 1 Use This Result POCT glucose Collection Time: 04/21/24 7:59 PM Result Value Ref Range Glucose, POC 176 70 - 199 mg/dL Glucose comment 1 Use This Result POCT glucose Collection Time: 04/22/24 7:17 AM Result Value Ref Range Glucose, POC 132 70 - 199 mg/dL Glucose comment 1 Use This Result CTA Head Neck W WO Contrast Result Date: 04/20/2024 Narrative: EXAM DESCRIPTION: CTA HEAD NECK W WO CONTRAST REASON FOR STUDY: Acute altered mental status for 2 days in a patient reportedly being treated for UTI. Provided focal neurologic deficits. Noprovided history of trauma. 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 No provided surgical history. TECHNIQUE: Axial images were first obtained through the brain without contrast. Axial dynamic scanning technique with dynamic contrast enhancement through the intracranial and extracranial carotid and vertebral arteries. Multiplanar reconstruction. All stenosis measurements are based on NASCET criteria.3D MIP images rendered on scanning unit and reviewed at time of interpretation. Automated exposure control was used as a dose optimization technique for this examination. CONTRAST TYPE/DOSE: 100 mL Optiray 350 injected via peripheral IV site without reported incident. COMPARISON: MRI brain without contrast performed earlier same day FINDINGS: BRAIN: No CT evidence of acute intracranial hemorrhageor increased intracranial pressure. Please reference MRI brain performed earlier same day for detailed evaluation of bilateral, ffucb-ibqymna-pino-left, acute infarcts superimposed on constellation of chronic findings. 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 Patent left PACKAGE WINDER, noting variable, to include severe, stenosis along its course. The anterior, middle, posterior cerebral arteries are all patent. No aneurysm. POSTERIOR CIRCULATION: Vertebral arteries as below. Patent basilar artery. No aneurysm. BRAIN: No gross evidence of [...] VERTEBRAL: Patent with calcific atherosclerosis producing at least 50% stenosis of the takeoff of the right vertebral artery with variable stenosis along its course. AORTIC ARCH: Three-vessel aortic arch. Patent subclavian arteries with calcific atherosclerosis producing variable stenosis. NECK SOFT TISSUE: No acute abnormality. No thyroid nodule greater than 1 cm. INCLUDED LUNGS: Biapical pleuroparenchymal scarring. OTHER: No other significant finding. IMPRESSION: No CT evidence of acute intracranial hemorrhage or increased intracranial pressure. Please reference MRI brain performed earlier same day for detailed evaluation ofbilateral, wybqx-mphxttl-xfhw-left, acute infarcts superimposed on constellation of chronic findings. 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 Occlusion of the left [...] systems, with calcific atherosclerosis producing approximately 55-60% stenosisof the right ICA, without overt CT angiographic evidence of dissection. These significant findings were reported by telephone to patient's nurse Cris for ordering provider Arpan Rodgers on 04/20/2024 at 1554 . THIS IS AN ELECTRONICALLY VERIFIED FINAL REPORT 04/20/2024 3:57 PM - Electronically signed by Steven VALENZUELA T: Report ID: [id number] Reading Location: [id number] MRI Brain WO Contrast Result Date: 04/20/2024 Narrative: EXAM DESCRIPTION: MRI BRAIN WO CONTRAST REASON FOR STUDY: Hx of recent CVA, pt has increased weakness and decreased mental status. TECHNIQUE: Multiplanar imaging includes non-contrasted T1, T2, FLAIR, and diffusion with ADC map sequences. Additional sequence(s) sensitive to blood products. Images stored on PACS. COMPARISON: Head CT [...] subacute infarcts. Chronic infarcts in the right [place] left frontal lobes. WHITE MATTER: Elsewhere in the brain there is moderate patchy and confluentareas of T2/FLAIR hyperintensity in the hemispheric white matter and jessenia compatible with chronic microvascular ischemia. POSTERIOR FOSSA: Brainstem and cerebellum otherwise appear unremarkable. EXTRAAXIAL SPACES: No abnormal extra-axial fluid collection. Normal size ventricles. BRAIN VOLUME: Ztmr-el-cbfrbxfe cerebral volume loss. PITUITARY: Unremarkable. VASCULATURE: Skull base flow voids are pre sent. ORBITS: No masses. Globes normal. PARANASAL SINUSES AND MASTOIDS: No significant mucosal thickening or fluid. OTHER: No other significant finding. IMPRESSION: Large acute infarct involving theright posterior cerebral artery territory. No acute intracranial hemorrhage or mass effect. Multifocal mixed age acute to subacute infarcts in the right parietal lobe, left frontal and parietal lobes, and left aspect of the splenium. Chronic left temporal lobe infarct with patchy diffusion hyperintensity and intermediate ADC signal could represent superimposed acute to subacute infarcts. Moderatesequela of chronic microvascular ischemic disease with chronic infarcts detailed above. These significant findings were reported by telephone to ELLIOT Bloom on 04/20/2024 at 12:35 p.m. THIS IS AN ELECTRONICALLY VERIFIED FINAL REPORT 04/20/2024 12:44 PM - Electronically signed by Angel Kyle M.D. AG T: Report ID: [id number] Reading Location: [id number] Neuro CT Outside Reference Result Date: 04/20/2024 Narrative: This order has been auto-finalized and does not contain a result. XR Chest 1 View Result Date: 04/20/2024 Narrative: EXAM DESCRIPTION: XR CHEST 1 VIEW REASON FOR STUDY: altered mental status Pt order sts: ams Pt chart sts: HTN; Hyperlipd. Recent stroke and discharged to rehab TECHNIQUE: 1 radiographic view(s) of the chest. COMPARISON: No prior studies are available for comparison at time of this dictation. FINDINGS: LUNGS: No focal opacity, pleural effusion, or pneumothorax. HEART/MEDIASTINUM: Cardiac silhouette normal in size. Mediastinal and hilar contours appear normal. LINES/TUBES: None. BONES:No acute osseous abnormality. IMPRESSION: No acute pulmonary process. THIS IS AN ELECTRONICALLY VERIFIED FINAL REPORT 04/20/2024 9:03 AM - Electronically signed by Johan Wilson M.D. MM T: Report ID: [id number] Reading Location: [id number] Current Facility-Administered Medications Medication Dose Route Frequency Provider Last Rate Last Admin acetaminophen (TYLENOL) tablet 650 mg 650 mg oral Q6H PRN Jammie Dickson, SURGICAL TERRITORY MANAGER 650 mg at 04/21/24 1758 Or acetaminophen (TYLENOL) 32 mg/mL oral liquid 650 mg 650 mg feeding tube Q6H PRN KristenL. Dickson NP Or acetaminophen (TYLENOL) suppository 650 mg 650 mg rectal Q6H PRN Jammie Dickson, SURGICAL TERRITORY MANAGER aspirin enteric coated tablet 81 mg 81 mg oral Daily Jammie Dickson, SURGICAL TERRITORY MANAGER 81 mg at 04/21/24 0843 cefTRIAXone (ROCEPHIN) 1,000 mg/10 mL in sterile water (premix) 1,000 mg 1,000 mg intravenous Q24H [facility] Jammie Dickson, SURGICAL TERRITORY MANAGER 1,000 mg at 04/21/24 0937 clopidogreL (PLAVIX) tablet 75 mg 75 mg oral Daily Sosa Andino MD 75 mg at 04/21/24 0843 dextrose (GLUTOSE) 40 % gel 15 g 15 g oral Q15 Min PRN Jammie Dickson NP Or dextrose (D10W) 10% bolus 250 mL 250 mL intravenous Q15 Min PRN Jammie Dickson NP divalproex (DEPAKOTE SPRINKLE) sprinkle capsule 500 mg 500 mg oral BID Sailaja Bloom PA 500 mg at 04/21/242000 ergocalciferol (VITAMIN D) capsule 50,000 Units 50,000 Units oral Weekly Sosa Andino MD FLUoxetine (PROzac) capsule 20 mg 20 mg oral Daily Sosa Andino MD 20 mg at 04/21/24 1350 glucagon injection 1 mg 1 mg intramuscular Q30 Min PRN Jammei Dickson NP hydrOXYzine (ATARAX) tablet 25 mg 25 mg oral Q6H PRN Sosa Andino MD 25 mg at 04/22/24 0259 insulin lispro (HumaLOG, ADMELOG) 100 unit/mL injection 0-4 Units 0-4 Units subcutaneous Nightly Jammie Dickson NP insulin lispro (HumaLOG, ADMELOG) 100 unit/mL injection 0-5 Units 0-5 Units subcutaneous TID with meals Jammie Dickson NP leflunomide (ARAVA) tablet 20 mg 20 mg oral Daily Sosa Andino MD 20 mg at 04/21/24 0843 rosuvastatin (CRESTOR) tablet 20 mg 20 mg oral Daily Jammie Dickson NP 20 mg at 04/21/24 0843 sodium chloride 0.9% flush 0.5-20 mL 0.5-20 mL intra-catheter Q8H ROBERTO Jammie Dickson NP 10mL at 04/22/24 0501 sodium chloride 0.9% flush 0.5-20 mL 0.5-20 mL intra-catheter PRN Jammie Dickson NP traMADoL (ULTRAM) tablet 50 mg 50 mg oral Q12H PRN Sosa Andino MD 50 mg at 04/22/24 0259 A/P: MDM Principal Problem: Altered mental status, unspecified altered mental status type Active Problems: HTN (hypertension) Hyperlipidemia Type 2 diabetes mellitus (HCC) UTI (urinary tract infection) CVA (cerebral vascular accident) (HCC) Resolved Problems: No resolved hospital problems. Altered Mental Status Worsening CVA; post recent CVA with left sided hemiplegia (Apr 07, 2024): Transferred from OSH for AMS likely 2/2 Worsening CVA based on CT head vs UTI. -CXR ordered to r/o any infectious processes -MRI brain w new acute.subacute cva bilaterally; CTA as above -No recent ECHO results available (need requested from [facility]) -continue aspirin and statin -Neurochecks 4hrs -Fall precautions; up with assistance -PT/OT/ST eval and tx -Dr Rodgers, Neurology consulted -cont tele, pt not on ACs -discussed w cardiology, SHIVAM done, will need extended cardiac monitoring, describes what sounds like event monitor use in the past, and now OSH requested loop monitor -CTA CAP ordered by rec's from cards/vascular UTI: UA positive. >100 WBCs, 3+LEs -Urine culture pending, will request from rehab -Continue IV rocephin for now -dc IVFs -Strict intake and output -Routine fernandez cath care -dc'd fernandez, awaiting spontaneous UOP Type 2DM: -HgbA1c 6.2 -Blood glucose monitoring ACHS. -SSI ordered -Hold dose of metformin HTN: BP 100-110s/70-90s; normotensive -Hold antihypertensives to avoid hypotension -resume when appropriate -routine VS; monitor BP closely Voice recognition software MModal Fluency Direct was used dictate and transcribe this document. Project Manager variances may occur. Despite proofreading, typographical errors may occur. For patients or family members viewing this note through Movent: This note was written as a communication tool between healthcare providers and may contain technical language, terminology and abbreviations that is difficult to interpret without advanced medical training. If you have questions or concerns regarding what is written in this note, please request to speak with the primary medical team taking care of you or your family member. Sosa Andino MD 04/22/2024 7:28 AM * Autumn Maldonado SLP - 04/21/2024 3:11 PM CDT [facility] Inpatient Speech-Language Pathology Missed Visit Note Patient Name: Lynn Zelaya Admit Date: 04/20/2024 Date of : 1960 Room: [place] [id number] Age/Sex: 63 y.o. female Date of Service: 04/21/2024 Time: Session Type: Session Type: Treatment Missed Visit Reason: TRUCK CHAUFFEUR Missed Visit Reason: Procedure/testing/appointment (@ EEG 1103a) Next Planned Attempt 04/22/24 TRUCK CHAUFFEUR will attempt treatment at another time/date as patient is appropriate and available. Autumn Maldonado M.A., [facility]TRUCK CHAUFFEUR ASCOM# [id number] * Sailaja Bloom PA - 04/21/2024 1:31 PM CDT Images from the original note were not included. [facility] Neurology Progress Note Subjective: Lynn is a 63yoF w h/o CVAs (L occipital, large R frontoparietal and L frontal) w residual L hemiparesis, RA, tobacco abuse, HTN and HLD that presented to OSH from rehab center (after recent stroke) w mental status changes and lethargy, only oriented to self (baseline Ox2) for 2 days. She is currently being treated for UTI w fernandez in place on Cefdinir. She was transferred because CTH at OSH showed worsening of recent stroke subacute infarct involving R internal capsule and R temporo-occipital region worsened since 04/07/24. NIH 16 but pt not following all commands. Interval History: Spoke to her who stated she had strokes in Jun in (asymptomatic), October (complete vision loss except lower R quadrant), January (expressive aphasia, couldn't name things but could have spontaneous conversation), Mar (L hemiparesis) and now (confusion). He states after every stroke shewas on 2 medications for 30 days then she was only on ASA, she did not have refills of the other. He has been trying to get her to [facility] for more complete workup as to why she keeps having these strokes. Her speech is much better today, she was able to answer simple questions for the nurse what's yourfavorite color and she was able to tell me her butt hurt and then tell me her husbands name and his phone number to call him. Current Facility-Administered Medications: acetaminophen (TYLENOL) tablet 650 mg, 650 mg, oral, Q6H PRN, 650 mg at 04/21/24 0332 OR acetaminophen (TYLENOL) 32 mg/mL oral liquid 650 mg, 650 mg, feeding tube, Q6H PRN OR acetaminophen (TYLENOL) suppository 650 mg, 650 mg, rectal, Q6H PRN, Jammie Dickson, [place] aspirin enteric coated tablet 81 mg, 81 mg, oral, Daily, Jammie Dickson NP, 81 mg at 04/21/24 0843 cefTRIAXone (ROCEPHIN) 1,000 mg/10 mL in sterile water (premix) 1,000 mg, 1,000 mg, intravenous, Q24H ROBERTO, Jammei Dickson, [place]O, 1,000 mg at 04/21/24 0937 clopidogreL (PLAVIX) tablet 75 mg, 75 mg, oral, Daily, Sosa Andino MD, 75 mg at 04/21/24 0843 dextrose (GLUTOSE) 40 % gel 15 g, 15 g, oral, Q15 Min PRN OR dextrose (D10W) 10% bolus 250 mL, 250 mL, intravenous, Q15 Min PRN, Jammie Dickson, SURGICAL TERRITORY MANAGER ergocalciferol (VITAMIN D) capsule 50,000 Units, 50,000 Units, oral, Weekly, Sosa Andino MD FLUoxetine (PROzac) capsule 20 mg, 20 mg, oral, Daily, Sosa Andino MD glucagon injection 1 mg, 1 mg, intramuscular, Q30 Min PRN, Jammie Dickson NP hydrOXYzine (ATARAX) tablet 25 mg, 25 mg, oral, Q6H PRN, Sosa Andino MD, 25 mg at 04/21/24 0843 insulin lispro (HumaLOG, ADMELOG) 100 unit/mL injection 0-4 Units, 0-4 Units, subcutaneous, Nightly, Jammie Dickson NP insulin lispro (HumaLOG, ADMELOG) 100 unit/mL injection 0-5 Units, 0-5 Units, subcutaneous, TID with meals, Jammie Dickson, [place]APIN[place]O leflunomide (ARAVA) tablet 20 mg, 20 mg, oral, Daily, Sosa Andino MD, 20 mg at 04/21/24 0843 rosuvastatin (CRESTOR) tablet 20 mg, 20 mg, oral, Daily, Jammie Dickson NP, 20 mg at 04/21/24 0843 sodium chloride 0.9% flush 0.5-20 mL, 0.5-20 mL, intra-catheter, Q8H ROBERTO, Jammie Dickson NP, 10 mL at 04/21/24 0500 sodium chloride 0.9% flush 0.5-20 mL, 0.5-20 mL, intra-catheter, PRN, Jammie Dickson, [place] traMADoL (ULTRAM) tablet 50 mg, 50 mg, oral, Q12H PRN, Sosa Andino MD, 50 mg at 04/21/24 1300 Vitals: 24hr Min/Max: Temp Min: 36.6 ??C (97.9 ??F) Max: 37.6 ??C (99.7 ??F) Pulse Min: 88 Max: 106 BP Min: 118/76 Max: 146/73 Resp Min: 16 Max: 18 SpO2 Min: 94 % Max: 100 % Most Recent : Vitals: 04/21/24 1242 BP: 131/80 Pulse: 94 Resp: 18 Temp: 37.6 ??C (99.7 ??F) SpO2: 100% I/O last 2 completed shifts: In: 1015 [P.O.:290; I.V.:715; IV Piggyback:10] Out: 1100 [Urine:1100] I/O this shift: In: 120 [P.O.:120] Out: - General: GEN: NAD, pleasant, cooperative CVS: RRR, normal radial pulse CHEST: No signs of resp distress, on room air ABD: Soft, NTTP. Physical Exam: Cortical function: Awake, alert, follows commands, oriented to person, she forgot she was at the hospital but knows year. Language: fluent, coherent, repition and naming intact. No dysarthria Impaired memory and attention Cranial Nerves: Only remaining vision is R lower quadrant Pupils equally reactive to light, full EOM, no ptosis or nystagmus Lt facial sensation intact bilaterally, hearing intact to finger rub bilaterally Normal facial strength to eye closure and cheek puff Palate symmetric, symmetric shoulder shrug, normal tongue protrusion Strength: Moves R side purposefully No movement L side Assessment/plan The patient has acute ischemia in the R PACKAGE WINDER territory to include the basal ganglia, occipital and temporal lobes w subacute infarcts R parietal, L frontal, parietal and splenium on my independent review of MRI brain. Cont ASA and Plavix indefinately, she does not have an indication for anticoagulation. TTE bypassed for SHIVAM since she has numerous stroke w negative TTE at OSH, CTA R ICA [id number]%, LICA no significant stenosis, L vert occluded, R vert 50% stenosis at the takeoff, aortic arch w calcific athero producing variable stenosis, LDL 48 w HDL 38 - needs low dose Crestor, A1C 6.2. Continue PT/OT/ST. CTA results indicate these are not cryptogenic as the PCP stated during our conversation yesterday,there is evidence of significant stenosis in 3 of the large vessels that could be contributing to her strokes. She will get a SHIVAM for ASD or PFO. She has already had a negative 30 day event monitor, there is no indication at this time for a loop recorder, she can return to her outpatient baseball coach to reschedule her planned Loop placement with him. 2. Mental status changes - while this was thought to be 2/2 UTI, EEG was ordered as it could also be post ictal state which she has shown improvement since arrival. EEG shows L temporal sharps which corelates with an area of ischemia, she will need to start AED. In light of her episodes of anxiety and crying will start Depakote 500mg BID. She can have repeat EEG as an outpt with continued evaluation for if she needs to continue this medication. Cosigned by Arpan Rodgers MD at 04/21/2024 3:47 PM CDT * Annika Ruggiero, HOOD - 04/21/2024 9:12 AM CDT Occupational Therapy 04/21/24 0912 General Session Type Treatment OT Received On 04/21/24 Safe Environment Arm band checked;Patient found in supine;Gait belt utilized for all out of bed mobility Subjective Agreeable to Therapy Subjective Comment I don't know where I am Family/Caregiver Present Yes (Spouse at bedside) Pain Assessment Pain Assessment No/denies pain Static Standing Balance Static Standing-Balance Support Bilateral upper extremity supported Static Standing-Standing Surface Floor Static Standing-Level of Assistance (MOD assist x2) Static Standing-Comment/# of Minutes Pt able to stand EOB x45 seconds. Pt leans to L and required cueing to fix posture ADL ADL Comments Pt required MAX assist to don socks. Bed Mobility 1 Bed Mobility From 1 Supine Bed Mobility Type 1 To Bed Mobility to 1 Edge of bed Level of Assistance 1 (MOD assist x2) Transfer 1 Transfer From 1 Sit Transfer Type 1 To and from Transfer to 1 Stand Transfer Device 1 Hand held assist;No device Transfer Level of Assistance 1 (MOD assist x2) Transfers 2 Transfer From 2 Bed Transfer Type 2 To Transfer to 2 Chair with arms Technique 2 Stand pivot Transfer Device 2 No device;Hand held assist Transfer Level of Assistance 2 (MOD assist x2) Therapeutic Exercise - ROM/STRENGTH Other Exercise PROM, LUE in all planes and joints of movement. Pt shows active grasp/release of L hand. Cognition Overall Cognitive Status WFL Arousal/Alertness Alert Attention Span Attends with cues to redirect;Difficulty attending to directions;Difficulty dividingattention Memory Decreased short term memory;Decreased technical support director memory;Decreased recall of recent events;Decreased recall of biographical information Current communication Appears Intact Orientation Oriented to person Following Commands Follows one step commands with repetition Activity Tolerance Endurance Tolerates 10 - 20 min activity with multiple rests Other Comments Comments Pt requires cueing on looking past midline to L. Head will move to Lside but eyes remain at midline. Pt leans to L side and requires verbal and tactile cueing to achieve correct erect posture. Safe Environment End of Therapy Session Safe Environment End of Therapy Session Patient left in recliner;Chair alarm in place and activated;RN notified;Call light within reach;Overbed table within reach Assessment Prognosis Fair Plan Plan Continue with current plan Recommendation/Plan OT Recommendation (S) Custodial Facility Patient at high risk for Falls;Readmission;Injury due to decreased ability to care for self;Injury due to reduced functional status;Injury due to balance deficits;Injury at home as patient has not returned to prior level of function;Injury due to impaired cognition Recommend SNF due to Risk of injury at home;Unable to safely care for self in the home;Skilled therapy needed to address care for self in the home;Skilled therapy needed to address functional deficits;Skilled therapy needed for patient to return to prior level of independence Progress during current admission Progressing toward goals Time Calculation Start Time 911 Stop Time 931 Time Calculation (min) 20 min Reason for interruption Co Tx with Kimber Rosado PTA Educated the patient to the role of occupational therapy, plan of care, goals of therapy, rationalefor progressing mobility and use of call light. Poor understanding. RN notified of session outcome. Patient was left in recliner with all needs met and equipment intact. Safety measures include handoff to nurse/tech, chair alarm activated, oriented to call light and placed within reach, and personal items within reach. Mobility and ADL status posted at bedside and within medical record. Principal Investigator Services Utilized: NO Patient is identified by name and date of on this visit. Cotx with Kimber Rosado PTA for safety of patient and staff due to current diagnosis, medical status, and current level of functional performance. * Kimber Baker PTA - 04/21/2024 9:11 AM CDT Physical Therapy 04/21/24 0911 PT Last Visit Session Type Treatment PT Received On 04/21/24 Safe Environment Arm band checked;Patient found in supine;Session completed bedside;Gait belt utilized for all out of bed mobility Subjective Agreeable to Therapy Subjective Comment pt reports I feel like I need to poop Family/Caregiver Present Yes Current Functional Status PT Functional Mobility spouse Precautions Precautions Bed/Chair Alarm;Fall risk Precaution Comments tele,fernandez,IV access Activity Tolerance Endurance Tolerates 10 - 20 min activity with multiple rests Activity Tolerance Comments co-treat with ERWIN Roblero Pain Assessment Pain Assessment 0-10 Dickinson-Reyna FACES Pain Rating 0 Bed Mobility 1 Bed Mobility From 1 Supine Bed Mobility Type 1 To Bed Mobility to 1 Edge of bed Level of Assistance 1 Moderate Assist;Moderate verbal cues;Moderate tactile cues Bed Mobility Comments 1 x2 Transfer 1 Transfer From 1 Bed Transfer Type 1 To and from Transfer to 1 Sit Technique 1 Sit to stand Transfer Device 1 No device;Hand held assist Transfer Level of Assistance 1 Moderate Assist;Minimal verbal cues;Minimal tactile cues Trials/Comments 1 x2 assist, pt's CLEMENTINA flacid Transfers 2 Transfer From 2 Bed Transfer Type 2 To Transfer to 2 Chair with arms Technique 2 Stand pivot Transfer Device 2 No device;Hand held assist Transfer Level of Assistance 2 Moderate Assist;Moderate verbal cues;Moderate tactile cues Trials/Comments 2 x2 assist Safe Environment End of Therapy Session Safe Environment End of Therapy Session Patient left in recliner;Chair alarm in place and activated;Call light within reach;Overbed table within reach;Bed in lowest position with wheels locked Assessment Prognosis Fair Problem List Gait deviations;Decreased strength;Decreased range of motion;Decreased endurance;Impaired balance;Decreased mobility;Impaired judgement;Decreased safety awareness Barriers to Discharge Current Mobility Status;Decreased caregiver support;Cognition;Decreased safety awareness Plan Plan Continue with current plan Recommendation/Plan PT Recommendation/Plan (S) Inpatient Rehab Facility Patient at high risk for Falls;Readmission;Injury due to decreased ability to care for self Recommend Inpatient Rehab/Acute Rehab due to Ability to actively participate in intensive therapy 3hours/day, 5 days/week or 900 minutes per week;Highly motivated to participate in therapy;Not at baseline due to impaired ability to complete ADLs;Impaired ability to complete functional mobility;Likely to return to the community at discharge with support system in place;Requires greater than 25% physical assistance with most mobility tasks;Requires greater than 25% physical assistance with most ADL tasks;Requires multiple therapy disciplines to address functional deficits;Patient and caregiverrequire specialized skilled training due to new level of function/diagnosis PT Frequency during current admission 5-7x/wk Treatment/Interventions during current admission Balance Training;Bed mobility;Endurance training;Functional activity;Functional transfer training;Gait training;Parent/caregiver training and education;Range of motion;Strengthening;Therapeutic activity;Therapeutic exercise;Transfer training;Neuromuscular re-education Time Calculation Start Time 0912 Stop Time 0932 Time Calculation (min) 20 min Principal Investigator Services Utilized: NO Patient is identified by name and date of on this visit. Educated the patient to the role of physical therapy, plan of care, goals of therapy, rationale forprogressing mobility and pursed lip breathing. Patient was left with all needs met and equipment intact. Mobility and ADL status posted at bedsideand within medical record. Multi-Disciplinary Problems (from Physical Therapy) Active Problems Problem: PT [facility] Start Date: 04/20/24 Goal Start Date Expected End Date End Date PT LTG - [facility] 1 04/20/24 05/04/24 -- Goal Details: Pt will transfer supine<>sit with min assist x 1 Goal Start Date Expected End Date End Date PT LTG - [facility] 2 04/20/24 05/04/24 -- Goal Details: Pt will transfer bed<>chair with assistive device as needed with min assist x 1 -progressing Goal Start Date Expected End Date End Date PT LTG - [facility] 3 04/20/24 05/04/24 -- Goal Details: Pt will sit at edge of bed with supervision for balance, x 5 minutes -progressing Goal Start Date Expected End Date End Date PT [facility] - [facility] 4 04/20/24 05/04/24 -- Goal Details: Pt will ambulate 25 feet with assistive device as needed with min assist x 1 -not met Goal Start Date Expected End Date End Date PT LTG - [facility] 5 04/20/24 05/04/24 -- Goal Details: Pt will perform BLE seated therex x 10 reps each with supervision-NT * Sosa Andino MD - 04/21/2024 7:29 AM CDT General Medicine Daily Progress SUBJECTIVE Chief complaint of Pt w recent CVA w L UE and LLE weakness, HTN, DM, RA, presents to OSH ED from rehab for AMS 1-2 days. CTH concerning for new cva, also being treated for UTI w cefdinir Neuro consulted Placed on rocephin overnight MRI resulted Pt has had event monitoring november/December 2023, sinus rhythm, no afib, flutter mentioned see care everywhere Will request UA.Urine cx result from [place] re[facility] Husbands states fernandez placed in the last week or so Pt deny dysuria, discomfort w urination Major cva in January and in mar, was sjust transferred to rehab after stroke teated at [facility] [place]. LUE LLE paresis Pt appear at baseline now this early afternoon according to Gbp was just restarted but taking as needed at rehab . Interval History: Vss CTA w significant posterior cirv disease Neuro recommended SHIVAM and extended cardiac monitoring In room w , supposed to have loop recorder placed this wk in [place] Has L ankle mvmt > L knee, hip mvmt, L hand shop director soft, able to roll elbow and was observed to bring L hand to her glasses w/o her realizing during therapy session today Though pt complains of pain w L sided mvmt OBJECTIVE Vitals: 24hr Min/Max: Temp Min: 36.6 ??C (97.9 ??F) Max: 37.3 ??C (99.1 ??F) Pulse Min: 88 Max: 106 BP Min: 118/76 Max: 146/73 Resp Min: 16 Max: 18 SpO2 Min: 94 % Max: 99 % Most Recent : Vitals: 04/21/24 0725 BP: 130/85 Pulse: 100 Resp: 18 Temp: 37.3 ??C (99.1 ??F) SpO2: 97% I/O last 2 completed shifts: In: 1015 [P.O.:290; I.V.:715; IV Piggyback:10] Out: 1100 [Urine:1100] No intake/output data recorded. Physical Exam: General Exam: In no acute distress Skin: Dry, Warm. ABSENT: Jaundice, Rash Head: Atraumatic, Normocephalic Ears, Nose, Mouth, Throat: Ext. ears & nose normal, Moist mucous membranes Neck: Supple Cardiovascular: Normal range, Regular rhythm, S1S2 normal. ABSENT: Edema Respiratory: CTA bilaterally, Effort normal ABSENT: Crackles, Rhonchi Abdomen: Bowel sounds present, Soft. ABSENT: Mass, Tenderness, Distention Musculoskeletal/Extremities: Joints normal Neurological: poor vision, intact in RLQ. Overall decr motor function in L side, worse in LLE Psychiatric: Affect appropriate, Alert Psychiatric - Orientation: Oriented to: Time, Place, Person Lab/Current Medication Review: Recent Results (from the past 24 hour(s)) POCT glucose Collection Time: 04/20/24 8:09 AM Result Value Ref Range Glucose, POC 133 70 - 199 mg/dL Glucose comment 1 Use This Result POCT glucose Collection Time: 04/20/24 12:12 PM Result Value Ref Range Glucose, POC 117 70 - 199 mg/dL Glucose comment 1 Use This Result POCT glucose Collection Time: 04/20/24 4:26 PM Result Value Ref Range Glucose, POC 141 70 - 199 mg/dL Glucose comment 1 Use This Result POCT glucose Collection Time: 04/20/24 9:30 PM Result Value Ref Range Glucose, POC 115 70 - 199 mg/dL Glucose comment 1 Use This Result CTA Head Neck W WO Contrast Result Date: 04/20/2024 Narrative: EXAM DESCRIPTION: CTA HEAD NECK W WO CONTRAST REASON FOR STUDY: Acute altered mental status for 2 days in a patient reportedly being treated for UTI. Provided focal neurologic deficits. Noprovided history of trauma. 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 No provided surgical history. TECHNIQUE: Axial images were first obtained through the brain without contrast. Axial dynamic scanning technique with dynamic contrast enhancement through the intracranial and extracranial carotid and vertebral arteries. Multiplanar reconstruction. All stenosis measurements are based on NASCET criteria.3D MIP images rendered on scanning unit and reviewed at time of interpretation. Automated exposure control was used as a dose optimization technique for this examination. CONTRAST TYPE/DOSE: 100 mL Optiray 350 injected via peripheral IV site without reported incident. COMPARISON: MRI brain without contrast performed earlier same day FINDINGS: BRAIN: No CT evidence of acute intracranial hemorrhageor increased intracranial pressure. Please reference MRI brain performed earlier same day for detailed evaluation of bilateral, fbrrf-bvaqgyp-htsh-left, acute infarcts superimposed on constellation of chronic findings. 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 Patent left PACKAGE WINDER, noting variable, to include severe, stenosis along its course. The anterior, middle, posterior cerebral arteries are all patent. No aneurysm. POSTERIOR CIRCULATION: Vertebral arteries as below. Patent basilar artery. No aneurysm. BRAIN: No gross evidence of [...] VERTEBRAL: Patent with calcific atherosclerosis producing at least 50% stenosis of the takeoff of the right vertebral artery with variable stenosis along its course. AORTIC ARCH: Three-vessel aortic arch. Patent subclavian arteries with calcific atherosclerosis producing variable stenosis. NECK SOFT TISSUE: No acute abnormality. No thyroid nodule greater than 1 cm. INCLUDED LUNGS: Biapical pleuroparenchymal scarring. OTHER: No other significant finding. IMPRESSION: No CT evidence of acute intracranial hemorrhage or increased intracranial pressure. Please reference MRI brain performed earlier same day for detailed evaluation ofbilateral, cxvqe-cdugjeb-tffs-left, acute infarcts superimposed on constellation of chronic findings. 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 Occlusion of the left [...] systems, with calcific atherosclerosis producing approximately 55-60% stenosisof the right ICA, without overt CT angiographic evidence of dissection. These significant findings were reported by telephone to patient's nurse Cris for ordering provider Arpan Rodgers on 04/20/2024 at 1554 . THIS IS AN ELECTRONICALLY VERIFIED FINAL REPORT 04/20/2024 3:57 PM - Electronically signed by Steven VALENZUELA T: Report ID:[id number] Reading Location: [id number] MRI Brain WO Contrast Result Date: 04/20/2024 Narrative: EXAM DESCRIPTION: MRI BRAIN WO CONTRAST REASON FOR STUDY: Hx of recent CVA, pt has increased weakness and decreased mental status. TECHNIQUE: Multiplanar imaging includes non-contrasted T1, T2, FLAIR, and diffusion with ADC map sequences. Additional sequence(s) sensitive to blood products. Images stored on PACS. COMPARISON: Head CT [...] EXTRAAXIAL SPACES: No abnormal extra-axial fluid collection. Normal size ventricles. BRAIN VOLUME: Njlb-xa-sqremfas cerebral volume loss. PITUITARY: Unremarkable. VASCULATURE: Skull base flow voids are present. ORBITS: No masses. Globes normal. PARANASAL SINUSES AND MASTOIDS: No significant mucosal thickening or fluid. OTHER: No other significant finding. IMPRESSION: Large acute infarct involving the right posterior cerebral artery territory. No acute intracranial hemorrhage or mass effect. Multifocal mixed age acute to subacute infarcts in the right parietal lobe, left frontal and parietal lobes,and left aspect of the splenium. Chronic left temporal lobe infarct with patchy diffusion hyperintensity and intermediate ADC signal could represent superimposed acute to subacute infarcts. Moderate sequela of chronic microvascular ischemic disease with chronic infarcts detailed above. These significant findings were reported by telephone to ELLIOT Bloom on 04/20/2024 at 12:35 p.m. THIS IS AN ELECTRONICALLY VERIFIED FINAL REPORT 04/20/2024 12:44 PM - Electronically signed by Angel Kyle M.D. AG T: Report ID: [id number] Reading Location: [id number] Neuro CT Outside Reference Result Date: 04/20/2024 Narrative: This order has been auto-finalized and does not contain a result. XR Chest 1 View Result Date: 04/20/2024 Narrative: EXAM DESCRIPTION: XR CHEST 1 VIEW REASON FOR STUDY: altered mental status Pt order sts: ams Pt chart sts: HTN; Hyperlipd. Recent stroke and discharged to rehab TECHNIQUE: 1 radiographic view(s) of the chest. COMPARISON: No prior studies are available for comparison at time of this dictation. FINDINGS: LUNGS: No focal opacity, pleural effusion, or pneumothorax. HEART/MEDIASTINUM: Cardiac silhouette normal in size. Mediastinal and hilar contours appear normal. LINES/TUBES: None. BONES:No acute osseous abnormality. IMPRESSION: No acute pulmonary process. THIS IS AN ELECTRONICALLY VERIFIED FINAL REPORT 04/20/2024 9:03 AM - Electronically signed by Johan Wilson M.D. MM T: Report ID: [id number] Reading Location: [place] [address] Current Facility-Administered Medications Medication Dose Route Frequency Provider Last Rate Last Admin acetaminophen (TYLENOL) tablet 650 mg 650 mg oral Q6H PRN Jammie Dickson NP 650 mg at 04/21/24 0332 Or acetaminophen (TYLENOL) 32 mg/mL oral liquid 650 mg 650 mg feeding tube Q6H PRN KristenL. Dickson NP Or acetaminophen (TYLENOL) suppository 650 mg 650 mg rectal Q6H PRN Jammie Dickson NP aspirin enteric coated tablet 81 mg 81 mg oral Daily Jammie Dickson NP 81 mg at 04/20/24 1328 cefTRIAXone (ROCEPHIN) 1,000 mg/10 mL in sterile water (premix) 1,000 mg 1,000 mg intravenous Q24H ROBERTO Jammie Dickson NP 1,000 mg at 04/20/24 0913 clopidogreL (PLAVIX) tablet 75 mg 75 mg oral Daily Sosa Andino MD 75 mg at 04/20/24 1515 dextrose (GLUTOSE) 40 % gel 15 g 15 g oral Q15 Min PRN Jammie Dickson NP Or dextrose (D10W) 10% bolus 250 mL 250 mL intravenous Q15 Min PRN Jammie Dickson NP ergocalciferol (VITAMIN D) capsule 50,000 Units 50,000 Units oral Weekly Sosa Andino MD glucagon injection 1 mg 1 mg intramuscular Q30 Min PRN Jammie Dickson NP insulin lispro (HumaLOG, ADMELOG) 100 unit/mL injection 0-4 Units 0-4 Units subcutaneous Nightly Jammie Dickson NP insulin lispro (HumaLOG, ADMELOG) 100 unit/mL injection 0-5 Units 0-5 Units subcutaneous TID with meals Jammie Dickson, CHAPINCITO leflunomide (ARAVA) tablet 20 mg 20 mg oral Daily Sosa Andino MD 20 mg at 04/20/24 1652 rosuvastatin (CRESTOR) tablet 20 mg 20 mg oral Daily Jammie Dickson SURGICAL TERRITORY MANAGER 20 mg at 04/20/24 1329 sodium chloride 0.9% flush 0.5-20 mL 0.5-20 mL intra-catheter Q8H ROBERTO Jammie Dickson, SURGICAL TERRITORY MANAGER 10mL at 04/21/24 0500 sodium chloride 0.9% flush 0.5-20 mL 0.5-20 mL intra-catheter PRN Jammie Dickson NP traMADoL (ULTRAM) tablet 50 mg 50 mg oral Q12H PRN Sosa Andino MD 50 mg at 04/20/24 2256 A/P: MDM Principal Problem: Altered mental status, unspecified altered mental status type Active Problems: HTN (hypertension) Hyperlipidemia Type 2 diabetes mellitus (HCC) UTI (urinary tract infection) CVA (cerebral vascular accident) ([facility]) Resolved Problems: No resolved hospital problems. Altered Mental Status Worsening CVA; post recent CVA with left sided hemiplegia (Apr 07, 2024): Transferred from OSH for AMS likely 2/2 Worsening CVA based on CT head vs UTI. -CXR ordered to r/o any infectious processes -MRI brain w new acute.subacute cva bilaterally; CTA as above -No recent ECHO results available (need requested from [facility]) -continue aspirin and statin -Neurochecks 4hrs -Fall precautions; up with assistance -PT/OT/ST eval and tx -Dr Rodgers, Neurology consulted -cont tele, pt not on ACs -discussed w cardiology, will do SHIVAM tomorrow, will need extended cardiac monitoring, describes what sounds like event monitor use in the past, and now OSH requested loop monitor UTI: UA positive. >100 WBCs, 3+LEs -Urine culture pending, will request from rehab -Continue IV rocephin for now -Cont IVFs -Strict intake and output -Routine fernandez cath care -plan to dc fernandez tonight Type 2DM: -HgbA1c 6.2 -Blood glucose monitoring ACHS. -SSI ordered -Hold dose of metformin HTN: BP 100-110s/70-90s; normotensive -Hold antihypertensives to avoid hypotension -resume when appropriate -routine VS; monitor BP closely Voice recognition software [employer] was used dictate and transcribe this document. Project Manager variances may occur. Despite proofreading, typographical errors may occur. For patients or family members viewing this note through [employer]: This note was written as a communication tool between healthcare providers and may contain technical language, terminology and abbreviations that is difficult to interpret without advanced medical training. If you have questions or concerns regarding what is written in this note, please request to speak with the primary medical team taking care of you or your family member. Sosa Andino MD 04/21/2024 7:29 AM * Kevin Mota - 04/20/2024 2:00 PM CDT Pt appreciated the visit but she did not indicate a desire for spiritual support. 04/20/24 1300 Time Spent Start Time 1359 Patient Spiritual Assessment Spirituality Assessed Yes Denominational Affiliation [employer] Clinical Encounter Type Visited With Patient and family together Response Type Routine visit * Yeni Fine [facility] - 04/20/2024 11:47 AM CDT Pharmacy Medication Reconciliation Note Patient Lynn Zelaya is a 63 y.o. female who presents to [address]-[id number]. The prior to admission home medication list was reviewed by pharmacy. Prior to Admission medications Medication Sig Start Date End Date Taking? Authorizing Provider aspirin 81 mg enteric coated tablet Take 1 tablet (81 mg total) by mouth daily Yes Lakhwinder Archer MD clopidogreL (PLAVIX) 75 mg tablet Take 1 tablet (75 mg total) by mouth daily Yes Lakhwinder Archer MD FLUoxetine (PROzac) 20 mg tablet Take 1 tablet (20 mg total) by mouth daily Yes Lakhwinder Archer MD gabapentin (NEURONTIN) 300 mg capsule Take 1 capsule (300 mg total) by mouth 3 (three) times a day as needed (headache) Yes ProviderLakhwinder MD hydrOXYzine (ATARAX) 25 mg tablet Take 1 tablet (25 mg total) by mouth every 6 (six) hours as needed for anxiety Yes ProviderLakhwinder MD leflunomide (ARAVA) 20 mg tablet Take 1 tablet (20 mg total) by mouth daily Yes Lakhwinder Archer MD rosuvastatin (CRESTOR) 20 mg tablet Take 1 tablet (20 mg total) by mouth nightly Yes ProviderLakhwinder MD tamsulosin (FLOMAX) 0.4 mg extended release capsule Take 1 capsule (0.4 mg total) by mouth daily Yes ProviderLakhwinder MD verapamil SR (CALAN SR) 180 mg CR tablet Take 1 tablet (180 mg total) by mouth daily Yes ProviderLakhwinder MD ondansetron (ZOFRAN) 4 mg tablet Take 1 tablet (4 mg total) by mouth every 8 (eight) hours as needed for nausea or vomiting ProviderLakhwinder MD The patient???s home medication list has been reconciled and updated as follows: - Orders that were discontinued: none - Orders that were added: none - Orders that were changed (doses/frequency/formulation): Hydroxyzine to anxiety Rosuvastatin from daily to qHS Verapamil from qHS to daily - Additional comments/recommendations: Confirmed medications against med list provided by [facility] Sources of information for this medication reconciliation include: care facility and medication list Eric Campuzano CPhT 04/20/2024 10:48 AM Pharmacist reviewed patient's medication history as completed by hospital pharmacy director and verified accuracy and completeness. Documentation updated accordingly. Yeni Fine PharmD, BCPS 04/20/2024 11:46 AM * Taco Barone, PT - 04/20/2024 10:33 AM CDT Physical Therapy 04/20/24 1033 General Chart Reviewed Yes Session Type Evaluation PT Received On 04/20/24 Safe Environment Arm band checked;Patient found in supine;Session completed bedside;Gait belt utilized for all out of bed mobility Additional Pertinent History Pt admitted from [facility] with altered mental status. 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 Hx includes: HTN, HLD. CTbrain shows worsening of recent stroke. Subacute infarct involving R internal capsule, and right temporal occipital region worsened from 04/07/24. (Pt was being taken to MRI after PT eval this am) Family/Caregiver Present No Physical Therapy-Patient Goal Pt unable to state goal at time of eval. Precautions Precautions (S) Bed/Chair Alarm;Fall risk Home Living Additional Comments Pt unable to provide insight into prior living arrangements. Pt transferred here from [facility]. Prior Function Prior Function Comments Pt unable to state. Activity Tolerance Endurance Tolerates less than 10 min activity no significant change in vital signs Pain Assessment Pain Assessment (Pt with no expressions of pain during evaluation.) Cognition Arousal/Alertness Alert Attention Span Unable to attend/complete tasks Memory Unable to assess Current communication Other (Pt would occaisonally responds to questions/commands. At other times, pt did not respond.) Orientation Oriented to person Following Commands Follows one step commands with repetition Safety Judgment Decreased awareness of need for assistance Compliance/Behavior Easy to engage Bed Mobility 1 Bed Mobility From 1 Supine Bed Mobility Type 1 To and from Bed Mobility to 1 Edge of bed Level of Assistance 1 Maximum Assist (x 1-2) Bed Mobility Comments 1 Once sitting at edge of bed, pt requires max assist for balance as pt is pushing to the left and loses balance posteriorly and to the left. Transfer 1 Trials/Comments 1 deferred due to pt with poor sitting balance at edge of bed Ambulation 1 Ambulation Comments 1 deferred as pt requires max assist to control neutral sitting posture at edgeof bed. RLE Assessment RLE Comments Pt actively moves RLE. Not following commands for MMT LLE Assessment LLE Comments Pt with little active movement LLE. Pt required assist to maneuver LLE out of bed and back in to bed. Safe Environment End of Therapy Session Safe Environment End of Therapy Session Patient left supine in bed;RN notified (RN and transport in room to take pt down for MRI) Assessment Prognosis Fair Problem List Gait deviations;Decreased strength;Decreased range of motion;Decreased endurance;Impaired balance;Decreased mobility;Impaired judgement;Decreased safety awareness Barriers to Discharge Current Mobility Status;Decreased caregiver support;Cognition;Decreased safety awareness Plan Plan Plan of care initiated;If this is the last note, consider this the discharge summary Recommendation/Plan PT Recommendation/Plan (S) Inpatient Rehab Facility Patient at high risk for Falls;Readmission;Injury due to decreased ability to care for self Recommend Inpatient Rehab/Acute Rehab due to Ability to actively participate in intensive therapy 3hours/day, 5 days/week or 900 minutes per week;Highly motivated to participate in therapy;Not at baseline due to impaired ability to complete ADLs;Impaired ability to complete functional mobility;Requires greater than 25% physical assistance with most ADL tasks;Requires greater than 25% physical assistance with most mobility tasks;Likely to return to the community at discharge with support systemin place;Requires multiple therapy disciplines to address functional deficits PT Frequency during current admission 5-7x/wk (1-2x/day) Treatment/Interventions during current admission Balance Training;Bed mobility;Endurance training;Functional activity;Functional transfer training;Gait training;Parent/caregiver training and education;Range of motion;Strengthening;Therapeutic activity;Therapeutic exercise;Transfer training;Neuromuscular re-education PT Equipment Recommended (to be determined at rehab) PT - Next Appointment 05/04/24 PT Evaluation Complete Yes Multi-Disciplinary Problems (from Physical Therapy) Active Problems Problem: PT [facility] Start Date: 04/20/24 Goal Start Date Expected End Date End Date PT [facility] 1 04/20/24 05/04/24 -- Goal Details: Pt will transfer supine<>sit with min assist x 1 Goal Start Date Expected End Date End Date PT [facility] 2 04/20/24 05/04/24 -- Goal Details: Pt will transfer bed<>chair with assistive device as needed with min assist x 1 Goal Start Date Expected End Date End Date PT [facility] 3 04/20/24 05/04/24 -- Goal Details: Pt will sit at edge of bed with supervision for balance, x 5 minutes Goal Start Date Expected End Date End Date PT [facility] 4 04/20/24 05/04/24 -- Goal Details: Pt will ambulate 25 feet with assistive device as needed with min assist x 1 Goal Start Date Expected End Date End Date PT [facility] 5 04/20/24 05/04/24 -- Goal Details: Pt will perform BLE seated therex x 10 reps each with supervision Principal Investigator Services Utilized: NO Educated the patient to the role of physical therapy, plan of care, goals of therapy, rationale forprogressing mobility and home safety. Patient was left with all needs met and equipment intact. Mobility and ADL status posted within medical record. * Katherine Casas, OT - 04/20/2024 10:32 AM CDT Occupational Therapy 04/20/24 1032 General Chart Reviewed Yes Session Type Evaluation OT Received On 05/04/24 Safe Environment Arm band checked Subjective Agreeable to Therapy Additional Pertinent History AMS * CVA w/left sided residual hemiparesis (left arm/leg), HTN, and HLD that presented to OSH ED from rehab center ([place]) with decline in mental status and lethargy x 1-2 days *CT brain shows worsening of recent stroke. Subacute infarct involving R internal capsule, and R temporal occipital region, worsened from 04/07/2024 Occupational Therapy-Patient Goal pt unable to state a goal Current Functional Status OT Functional Mobility pt found supine in bed upon entering room. transport came in [facility] w/c to take pt to imaging. RN unsure if pt would be able to tolerate w/c. completed supine to sit EOB with max A x 2. once sitting EOB required cga to max A to maintain balance as pt had 1 lateral LOB with maxA to recover. pt unable to tolerate sitting without lateral support so w/c unsafe for pt at this time. sit to supine completed with max A x 2. max A x 2 to scoot to HOB. OT Self Care UB dress max A, LB dress max A, toileting max A OT Cognition A&O x self only OT Communication Pt with delayed responses and stated ok for most questions. Precautions Precautions Bed/Chair Alarm;Fall risk Precaution Comments Telemetry, Fernandez Catheter, IV Home Living Additional Comments Pt is from [facility]. is unable to give PLOF at this time. Prior Function Prior Function Comments pt unable to state Pain Assessment Pain Assessment (pt did not appear to be in pain during eval.) Activity Tolerance Endurance Tolerates less than 10 min activity no significant change in vital signs Cognition Arousal/Alertness Alert Attention Span Unable to attend/complete tasks Memory Unable to assess Current communication (at time of eval it appears pt is unable to state needs. when asked questions delayed responses with sometimes no response. As well as stated ok with most questions) Orientation Oriented to person Following Commands Follows one step commands with repetition Safety Judgment Decreased awareness of need for assistance Awareness of Errors Assistance required to identify errors made;Assistance required to correct errors made;Decreased awareness of errors Insight Decreased awareness of deficits Problem Solving Assistance required to identify errors made;Assistance required to generate solutions;Assistance required to implement solutions Compliance/Behavior Easy to engage Hand Function Coordination (unable eto assess) Gross Grasp (unable to assess) RUE Assessment RUE Comments functional LUE Assessment LUE Comments functional Safe Environment End of Therapy Session Safe Environment End of Therapy Session Patient left supine in bed;RN notified (pt with RN and transport when therapy left room) Assessment Prognosis Fair Problem List Decreased endurance;Decreased balance;Decreased functional mobility;Decreased ADL independence;Decreased IADL independence Barriers to Discharge Current Mobility Status;Current ADL Status Plan Plan Plan of care initiated;If this is the last note, consider this the discharge summary Recommendation/Plan OT Recommendation Custodial Facility Patient at high risk for Falls;Readmission;Injury due to decreased ability to care for self;Injury due to reduced functional status;Injury due to impaired cognition;Injury due to balance deficits;Injury at home as patient has not returned to prior level of function;Developing impaired skin integrity;Cognitive decline due to decreased social participation;Prolonged dependence for self care tasks Recommend SNF due to Risk of injury at home;Unable to safely care for self in the home;Skilled therapy needed to address care for self in the home;Skilled therapy needed to address functional deficits;Skilled therapy needed for patient to return to prior level of independence OT Frequency during current admission 3-5x/wk Treatment/Interventions during current admission ADL/IADL retraining;Balance Training;Bed mobility;Endurance training;Functional activity;Functional mobility training;Functional transfer training;Neuromuscular re- education;Parent/caregiver training and education;Transfer training;Therapeutic exercise;Therapeutic activity;Strengthening OT - Next Appointment 05/04/24 OT Evaluation Complete Yes Time Calculation Start Time 1032 Stop Time 1041 Time Calculation (min) 9 min Principal Investigator Services Utilized: NO Patient is identified by name and date of on this visit. Education provided to the patient/caregiver regarding the role of occupational therapy, plan of care, goals of therapy, rationale for progressing mobility and use of call light. Fair understanding. Cotx with SHE Carbone for safety of patient and staff due to current diagnosis, medical status, and/or level of physical assist needed due to weakness or equipment management. Multi-Disciplinary Problems (from Occupational Therapy) Active Problems Problem: OT Misc Start Date: 04/20/24 Goal Start Date Expected End Date End Date OT [facility] - [facility] 04/20/24 05/04/24 -- Goal Details: Pt will complete supine to sit EOB with min A to increase indep with adls. Pt will tolerate sitting EOB with good balance x 5 minutes to increase indep with adls. Pt will complete UB dressing sitting EOB with good balance to increase indep with adls. Pt will complete LB dress with mod A AE PRN to increase indep with adls. Pt will complete bed to chair/BSC with min A x 2 to increase indep with adls. Pt will tolerate standing x 3 min with min A x 2 to increase indep with toileting. Pt will be able to attend to tasks without cues to increase indep with adls. documented in this encounter H&P Notes * Nino Olivia MD - 04/22/2024 9:56 AM CDT I have reviewed the H&P, examined the patient, and endorse the findings as written. Plan of Care : Based on the above findings, I consider Lynn Zelaya to be an acceptable riskfor : Transesophageal echocardiogram Discussed risk vs benefit with patient and and we discussed that we may or may not see the cause of the stroke. They plan to have implantable loop recorder performed with their longitudinal cardiology team shortly after discharge. All questions answered and they wish to proceed with SHIVAM. Nino Olivia MD Source Note - Sailaja Bloom PA - 04/20/2024 9:09 AM CDT Images from the original note were not included. 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 She is currently being treated for UTI w fernandez in place on Cefdinir. She was transferred because CTH at OSH showed worsening of recent stroke subacute infarct involving R internal capsule and R temporo-occipital region worsened since 04/07/24. NIH 16 but pt not following all commands. Spoke to PCP who stated all of patients strokes have been in the last year, all considered cryptogenic. After extensive review of the EMR we cannot see the admissions nor workup for any of the prior strokes which were most likely done at [facility] as we have no access and this is closest hospital to the patient. He is concerned that because she has RA on Arava that she has a form of vasculitis causing all of these strokes. He is requesting SHIVAM, loop recorder and cerebral angio as well as for patient to be started on anticoagulation. Past Medical History: Diagnosis Date Arthritis Hypertension Hypertension RA (rheumatoid arthritis) (HCC) Stroke (HCC) History reviewed. No pertinent surgical history. HOME MEDICATIONS : aspirin 81 mg enteric coated tablet clopidogreL (PLAVIX) 75 mg tablet FLUoxetine (PROzac) 20 mg tablet gabapentin (NEURONTIN) 300 mg capsule hydrOXYzine (ATARAX) 25 mg tablet leflunomide (ARAVA) 20 mg tablet ondansetron (ZOFRAN) 4 mg tablet rosuvastatin (CRESTOR) 20 mg tablet tamsulosin (FLOMAX) 0.4 mg extended release capsule verapamil SR (CALAN SR) 180 mg CR tablet Current Facility-Administered Medications Medication Dose Route Frequency Provider Last Rate Last Admin acetaminophen (TYLENOL) tablet 650 mg 650 mg oral Q6H PRN Jammie Dickson NP Or acetaminophen (TYLENOL) 32 mg/mL oral liquid 650 mg 650 mg feeding tube Q6H PRN KristenL. Dickson NP Or acetaminophen (TYLENOL) suppository 650 mg 650 mg rectal Q6H PRN Jammie Dickson NP aspirin enteric coated tablet 81 mg 81 mg oral Daily Jammie Dickson, [place] cefTRIAXone (ROCEPHIN) 1,000 mg/10 mL in sterile water (premix) 1,000 mg 1,000 mg intravenous Q24H [facility] Jammie Dickson NP dextrose (GLUTOSE) 40 % gel 15 g 15 g oral Q15 Min PRN Jammie Dickson NP Or dextrose (D10W) 10% bolus 250 mL 250 mL intravenous Q15 Min PRN Jammie Dickson NP ergocalciferol (VITAMIN D) capsule 50,000 Units 50,000 Units oral Weekly Sosa Andino MD glucagon injection 1 mg 1 mg intramuscular Q30 Min PRN Jammie Dickson NP insulin lispro (HumaLOG, ADMELOG) 100 unit/mL injection 0-4 Units 0-4 Units subcutaneous Nightly Jammie Dickson NP insulin lispro (HumaLOG, ADMELOG) 100 unit/mL injection 0-5 Units 0-5 Units subcutaneous TID with meals Jammie Dickson NP rosuvastatin (CRESTOR) tablet 20 mg 20 mg oral Daily Jammie Dickson NP sodium chloride 0.9% flush 0.5-20 mL 0.5-20 mL intra-catheter Q8H [facility] Jammie Dickson, SURGICAL TERRITORY MANAGER 10mL at 04/20/24 0510 sodium chloride 0.9% flush 0.5-20 mL 0.5-20 mL intra-catheter PRN Jammie Dickson NP sodium chloride 0.9% infusion 75 mL/hr intravenous Continuous Jammie Dickson NP 75 mL/hr at 04/20/24 0404 75 mL/hr at 04/20/24 0404 Allergies Allergen Reactions Lisinopril Other (See comments) Cough Social History Tobacco Use Smoking status: Former Current packs/day: 0.00 Types: Cigarettes Quit date: 2009 Years since quittin.7 Smokeless tobacco: Never Substance and Sexual Activity Drug use: Not Currently Types: Tobacco Sexual activity: None Alcohol Use: Not At Risk (04/20/2024) AUDIT-C Frequency of Alcohol Consumption: Never Average Number of Drinks: Patient does not drink Frequency of Binge Drinking: Never Family History Problem Relation Age of Onset Diabetes Mother Hypertension Mother Hypertension Father Diabetes Sister Hypertension Sister Prostate cancer Other Family history of Cancer, prostate; Hypertension Other Family history of Hypertension; Review of Systems: A ten system review of constitutional, cardiovascular, respiratory, musculoskeletal, endocrine, skin, SHEENT, genitourinary, psychiatric and neurologic systems was obtained and is unremarkable with the exception of the following: Vitals: 24 hr Min/Max: Temp Min: 36.7 ??C (98.1 ??F) Max: 37.4 ??C (99.3 ??F) Pulse Min: 80 Max: 107 BP Min: 106/92 Max: 115/78 Resp Min: 20 Max: 20 SpO2 Min: 97 % Max: 98 % Most Recent: Vitals: 04/20/24 0709 BP: 115/78 Pulse: 80 Resp: 20 Temp: 36.7 ??C (98.1 ??F) SpO2: 98% Height: 160 cm (5' 3 ) Weight: 56.3 kg (124 lb 1.6 oz) BMI (Calculated): 22 I/O last 2 completed shifts: In: 1000 [I.V.:1000] Out: 1000 [Urine:1000] No intake/output data recorded. Physical Exam General: GEN: NAD, pleasant, cooperative CVS: RRR, normal radial pulse CHEST: No signs of resp distress, on room air ABD: Soft, NTTP. Cortical function: Awake, alert, does not follow commands, tells me her name is Carlie, can state the month and day of her but not the year, does not answer other questions. Language: difficult to determine if she is confused or has global aphasia. Cannot assess memory and attention Cranial Nerves: Visual Jones cannot be assessed, appears to blink to threat when she keeps her eyes open Pupils equally reactive to light, full EOM noted by tracking when eyes open Strength: L hemiparesis, cannot assess strength, moves RUE and RLE. Lab/Radiology/Diagnostic Review: Laboratory review: Chemistry CMP: Lab Results Component Value Date ALBUMIN 3.8 04/20/2024 BUNSER 18 04/20/2024 CALCIUM 9.4 04/20/2024 CO2 26 04/20/2024 CHLORIDE 102 04/20/2024 CREATININE 0.95 04/20/2024 GLUCOSE 133 04/20/2024 GLUCOSE 115 04/20/2024 POTASSIUM 4.0 04/20/2024 SODIUM 139 04/20/2024 BILITOT 0.3 04/20/2024 PROT 6.4 (L) 04/20/2024 ALT 16 04/20/2024 AST 27 04/20/2024 ALKPHOS 69 04/20/2024 , CBC: Lab Results Component Value Date WBC 7.4 04/20/2024 RBC 3.43 (L) 04/20/2024 HGB 9.2 (L) 04/20/2024 HCT 29.6 (L) 04/20/2024 MCV 86.3 04/20/2024 MCH 26.8 (L) 04/20/2024 MCHC 31.1 (L) 04/20/2024 RDWCV 14.3 04/20/2024 RDWSD 44.2 04/20/2024 MPV 10.5 04/20/2024 NRBCABS 0.00 04/20/2024 , Coags: No results found for: [place] , PT , PTT , APTT , FFN , FIBRINOGEN , INR , ACTIVATEDCL , Lipids: Lab Results Component Value Date CHOL 103 04/20/2024 HDL 38 (L) 04/20/2024 LDLCALC 48 04/20/2024 TRIG 85 04/20/2024 CHOLHDL 3 04/20/2024 , and Cardiac Enzymes: No results found for: CKTOTAL , CKMB , CKMBINDEX , TROPONINT , TROPTHS Additional (if available): Lab Results Component Value Date HGBA1C 6.2 (H) 04/20/2024 , Lab Results Component Value Date LDLCALC 48 04/20/2024 , Lab Results Component Value Date TSH 1.80 04/20/2024 Imaging No results found for this or any previous visit. Other studies: Echo - from December 2023 shows LVEF of 60-65% . Moderate mitral stenosis with moderate left atrial enlargement. No PFO noted. 30-day cardiac event monitor- From sinus rhythm with an average rate of 69 bpm. No atrial fibrillation noted. Assessment and Plan: 1.. The patient has acute ischemia in the R PACKAGE W[employer]ER territory to include the Basal Ganglia, Occipital and Temporal lobes, subacute ischemia on the R parietal, L frontal and parietal lobes and L splenium in addition to her chronic L temporal lobe infarct on my independent review of MRI brain. She does not need permissive hypertension as onset was 2 days prior to admission. Cont ASA and Plavix indefinitely, she cannot be started on anticoagulation at this point because of acute strokes as well as there is no indication for anticoagulation as even a 30d event monitor failed to reveal this. TTE as above from December showed no ASD, PFO or thrombus, CTA pending, LDL 48 w HDL 38 - cont Crestor, A1C 6.2. She quit smoking earlier this year. Continue PT/OT/ST. Despite being >60yo will complete workup similar to those <60yo since she has had all of the above strokes within the last year. Obtain SHIVAM and hypercoagulable workup. Cosigned by Arpan Rodgers MD at 04/20/2024 2:40 PM CDT * Jmamie Dickson NP - 04/20/2024 3:30 AM CDT History and Physical Hospitalists services Date of service: 04/20/2024 Primary care provider: William Craig MD; [phone] CC: Mental status change HPI: This is a 63 yo female with medical hx of recent CVA w/left sided residual hemiparesis (left arm/leg), HTN, and HLD that presented to [facility] ED from rehab center with decline in mental status and lethargy x 1-2 days. Patient only oriented to person; knows name and month/day of ; but couldn't provide year. Able to follow most commands correctly. Doesn't answer all questions appropriately. Repeats yes to questions that require more than yes or no answer. [facility] reported pt oreinted x2 at baseline. Will obtain any additional information needed from medical record. Per ED record, [facility] Pt at rehab center for physical therapy post recent stroke that left patient with left-sided residual hemiparesis. Was noted that pt was being treated for UTI with Cefdinir with no improvement in symptoms. Has fernandez in place. ED work-up noted: T: BP: 125/77. HR 83 RR 16 T 98.3 98% on RA; WBC normal 7.1, Hb 10 (stable from previous);Creatine: 0.9; Repeat UA: 3+ leuk >100 WBC; BCX drawn, gave rocephin ED also noted CT brain shows worsening of recent stroke. Subacute infarct involving R internal capsule, and R temporal occipital region, worsened from 04/07/2024. Also, shows old infarcts and chronic small vessel . Disc sent from OSH, (Needs uploaded to system). No NIH charted from OSH. OSH does not have neuro telephoner today. Dr. Rodgers Neuro is agreeable to consult. Will push images to [employer]. Pt accepted for transfer per hospitalist group pending bed placement. Upon arrival: Oriented to person only as noted above; follows most commands correctly; doesn't answer all questions appropriately. BP 106/92 (BP Location: Right arm, Patient Position: Lying) Pulse 107 Temp 37.4 ??C (99.3 ??F) (Oral) Resp 20 Ht 160 cm (5' 3 ) Wt 56.3 kg (124 lb 1.6 oz) SpO2 97% BMI 21.98 kg/m?? C/o pain and cramping to right lower extremity; pt moves the right side w/o difficulty. Has very little movement with left arm or left leg. Unknown when last known normal; noted decline over 2 days. Difficult to score/NIH 16; due to pt notfollowing all commands. Easily distracted due to discomfort in right leg. No other verbalized complaints. Urine cloudy aissatou desai colored. Fernandez cath in place draining freelyto gravity bag. NIH Stroke Score Time: 0330 1A Level of Consciousness [x] 0 Alert, keenly responsive [] 1 Not alert but arousable by minor stimulation to obey answer or respond [] 2 Not alert, requires repeated stimulation to attend or is obtunded and requires strong or painful stimulation to make movements (not stereotyped) [] 3 Responds only with reflex motor or autonomic effects or totally unresponsive, flaccid and arreflexic 1B LOC Questions [] 0 Answers both questions correctly [x] 1 Answers one questions correctly [] 2 Answers neither question correctly 1C LOC Commands [x] 0 Performs both tasks correctly [] 1 Performs one task correctly [] 2 Performs neither task correctly 2 Best Gaze [x] 0 Normal [] 1 Partial gaze is abnormal in one or both eyes but forced deviation or total gaze paresis is notpresenet [] 2 Forced gaze or total gaze paresis not overcome by the oculocephalic maneuver 3 Visual [x] 0 No visual loss [] 1 Partial henianopia [] 2 Bilateral hemianopia (blind not including cortical blindness) 4 Facial Palsy [x] 0 Normal symmetrical movements [] 1 Minor paralysis (flattened nasolabial fold, asymmetry on smiling) [] 2 Partial paralysis(total or near-total paralysis of lower face) [] 3 Complete paralysis of one or both sides( absence of facial movement in the upper and lower face) 5A Motor Arm Left [] 0 No drift; limb holds 90(or 45) degrees for full 10 seconds [] 1 Drift; limb holds 90 (or 45) degrees, but drifts down before full 10 seconds, does not hit bedor other support. [] 2 Some effort against gravity, limb cannot get to or maintain (if cued) 90 (or 45) degrees, drifts to bed, but has some effort against gravity [x] 3 No effort against gravity, limb falls [] 4 No movement UN Amputation or joint fusion 5B Motor Arm Right [] 0 No drift; limb holds 90(or 45) degrees for full 10 seconds [x] 1 Drift; limb holds 90 (or 45) degrees, but drifts down before full 10 seconds, does not hit bed or other support. [] 2 Some effort against gravity, limb cannot get to or maintain (if cued) 90 (or 45) degrees, drifts to bed, but has some effort against gravity [] 3 No effort against gravity, limb falls [] 4 No movement UN Amputation or joint fusion 6A Motor Leg Left [] 0 No drift, leg holds 30 degrees for full 5 seconds [] 1 Drift, leg falls by the end of the 5-second period but does not hit the bed [] 2 Some effort against gravity, leg falls to bed by 5 seconds but has some effort against gravity [x] 3 No effort against gravity, leg falls to bed immediately [] 4 No movement UN Amputation of joint fusion 6B Motor Leg Right [] 0 No drift, leg holds 30 degrees for full 5 seconds [] 1 Drift, leg falls by the end of the 5-second period but does not hit the bed [x] 2 Some effort against gravity, leg falls to bed by 5 seconds but has some effort against gravity [] 3 No effort against gravity, leg falls to bed immediately [] 4 No movement UN Amputation of joint fusion 7 Limb Ataxia [] 0 Absent [] 1 Present in one limb [x] 2 Present in two limbs UN Amputation of joint fusion 8 Sensory [] 0 Normal, no sensory loss [x] 1 Mild to moderate sensory loss, patient feels pinprick is less sharp or is dull on the affected side or there is a loss of superficial tierney with pinprick but patient is aware of being touched [] 2 Sever to total sensory loss, patient is not aware of being touched in the face, arm or leg 9 Best Language [] 0 No aphasia, normal [] 1 Mild to moderate aphasia, some obvious loss of fluency or facility of comprehension, however makes conversation about provided materials difficult or impossible [x] 2 Sever aphasia, all communication is through fragmentary expression, great need for interference, questioning and guessing by the listener. Range of information that can be exchanged is limited,listener carries burden of communication. Examiner cannot identify materials provided from patient r samantha. [] 3 Mute, global aphasia, no usable speech or auditory comprehension 10 Dysarthria [x] 0 Normal [] 1 Mild to moderate dysarthria, patient slurs at least some words and at worst, can be understoodwith some difficulty [] 2 Sever dysarthria, patient's speech is so slurred as to be unintelligible in the absence of or out of proportion to dysphasia, or is mute/anarthric UN Intubated or other physical barrier 11 Extinction and Inattention (formerly neglect) [] 0 No abnormality [x] 1 Visual tactile, auditory, spatial or personal inattention or extinction to bilateral stimulation in one of the sensory modalities [] 2 Profound cierra-inattention/extinction more than one modality 16 TOTAL SCORE Past Medical History: Diagnosis Date Arthritis Hypertension Hypertension RA (rheumatoid arthritis) (HCC) Stroke (HCC) No past surgical history on file. No medications prior to admission. Allergies Allergen Reactions Lisinopril Other (See comments) Cough Social History Tobacco Use Smoking status: Not on file Smokeless tobacco: Not on file Substance and Sexual Activity Drug use: Not Currently Types: Tobacco Sexual activity: Not on file Alcohol Use: Not on file Family History Problem Relation Age of Onset Diabetes Mother Hypertension Mother Hypertension Father Diabetes Sister Hypertension Sister Prostate cancer Other Family history of Cancer, prostate; Hypertension Other Family history of Hypertension; Review of Systems: Review of Systems Unable to perform ROS: Mental status change (Pt only oreinted to person on arrival; unsure about baseline.) OBJECTIVE Vitals: Arrival Vitals Temp Pulse Resp BP SpO2 Temp src Heart Rate Source Patient Position BP Location FiO2 (%) 24hr Min/Max: Temp Min: 37.4 ??C (99.3 ??F) Max: 37.4 ??C (99.3 ??F) Pulse Min: 107 Max: 107 BP Min: 106/92 Max: 106/92 Resp Min: 20 Max: 20 SpO2 Min: 97 % Max: 97 % Most Recent : Vitals: 04/20/24 0338 BP: 106/92 Pulse: 107 Resp: 20 Temp: 37.4 ??C (99.3 ??F) SpO2: 97% Intake/Output Summary (Last 24 hours) at 04/20/2024 0646 Last data filed at 04/20/2024 0510 Gross per 24 hour Intake 1000 ml Output 1000 ml Net 0 ml Physical exam: Physical Exam Vitals and nursing note reviewed. Constitutional: Appearance: Normal appearance. HENT: Head: Normocephalic and atraumatic. Right Ear: External ear normal. Left Ear: External ear normal. Nose: Nose normal. Mouth/Throat: Pharynx: Oropharynx is clear. Eyes: Extraocular Movements: Extraocular movements intact. Cardiovascular: Rate and Rhythm: Regular rhythm. Tachycardia present. Pulses: Normal pulses. Heart sounds: Normal heart sounds. Pulmonary: Effort: Pulmonary effort is normal. Breath sounds: Normal breath sounds. Abdominal: General: Bowel sounds are normal. There is no distension. Palpations: Abdomen is soft. Musculoskeletal: Cervical back: Normal range of motion. Right lower leg: No edema. Left lower leg: No edema. Comments: Left sided hemiplegia (left arm and left leg) Skin: General: Skin is warm and dry. Capillary Refill: Capillary refill takes less than 2 seconds. Neurological: Mental Status: She is alert. GCS: GCS eye subscore is 4. GCS verbal subscore is 4. GCS motor subscore is 6. Cranial Nerves: No facial asymmetry. Comments: Unable to follow all commands to get full neuro assessment Psychiatric: Mood and Affect: Mood normal. Behavior: Behavior normal. Lab/Radiology/Diagnostic Review: Recent Results (from the past 24 hour(s)) CBC with auto differential Collection Time: 04/20/24 4:24 AM Result Value Ref Range WBC 7.4 3.8 - 9.9 K/cumm Hgb 9.2 (L) 11.9 - 15.5 g/dL Hct 29.6 (L) 35.6 - 45.5 % Plt 252 150 - 400 K/cumm MPV 10.5 9.1 - 12.3 fL RBC 3.43 (L) 3.90 - 5.20 M/cumm MCV 86.3 81.3 - 96.4 fL MCH 26.8 (L) 27.1 - 33.3 pg MCHC 31.1 (L) 32.3 - 35.7 g/dL RDW CV 14.3 11.1 - 14.9 % RDW SD 44.2 35.7 - 48.1 fL NRBC abs 0.00 0.00 - 0.01 K/cumm Phosphorus Collection Time: 04/20/24 4:24 AM Result Value Ref Range Phosphorus, pl 3.4 2.3 - 4.5 mg/dL Lactate Collection Time: 04/20/24 4:24 AM Result Value Ref Range Lactate 0.8 0.7 - 2.0 mmol/L Ammonia Collection Time: 04/20/24 4:24 AM Result Value Ref Range Ammonia <10 <=50 mcmol/L Vitamin B12 Collection Time: 04/20/24 4:24 AM Result Value Ref Range Vitamin B12 672 230 - 1,250 pg/mL Vitamin D 25 hydroxy Collection Time: 04/20/24 4:24 AM Result Value Ref Range Vitamin D 25-OH 13.0 (L) 30.0 - 80.0 ng/mL Hemoglobin A1c Collection Time: 04/20/24 4:24 AM Result Value Ref Range Hgb A1C 6.2 (H) 4.0 - 5.6 % Estimated Average Glucose 131 mg/dL Thyroid Function [place] Collection Time: 04/20/24 4:24 AM Result Value Ref Range TSH 1.80 0.30 - 4.20 mcIUnit/mL Lipid panel Collection Time: 04/20/24 4:24 AM Result Value Ref Range Cholesterol 103 30 - 199 mg/dL Triglycerides 85 <=149 mg/dL HDL 38 (L) >=40 mg/dL LDL, calculated 48 <=129 mg/dL Non-HDL Cholesterol 65 mg/dL Chol/HDL ratio 3 Comprehensive metabolic panel Collection Time: 04/20/24 4:24 AM Result Value Ref Range Sodium 139 135 - 145 mmol/L Potassium, pl 4.0 3.3 - 4.9 mmol/L Chloride 102 97 - 110 mmol/L CO2 26 22 - 32 mmol/L Anion gap 11 2 - 15 mmol/L BUN 18 6 - 25 mg/dL Creatinine 0.95 0.60 - 1.10 mg/dL Glucose 115 70 - 199 mg/dL Calcium 9.4 8.5 - 10.3 mg/dL Bilirubin, total 0.3 0.1 - 1.2 mg/dL Protein, pl 6.4 (L) 6.5 - 8.5 g/dL Albumin 3.8 3.5 - 5.0 g/dL Alk phos 69 40 - 130 Units/L ALT 16 7 - 45 Units/L AST 27 10 - 45 Units/L Magnesium Collection Time: 04/20/24 4:24 AM Result Value Ref Range Magnesium 1.9 1.4 - 2.5 mg/dL Differential, auto Collection Time: 04/20/24 4:24 AM Result Value Ref Range Neutrophil abs 4.2 1.5 - 6.5 K/cumm Imm gran abs 0.0 0.0 - 0.1 K/cumm Lymphocyte abs 1.6 0.8 - 3.3 K/cumm Monocyte abs 0.7 0.2 - 0.8 K/cumm Eosinophil abs 0.7 (H) 0.0 - 0.5 K/cumm Basophil abs 0.1 0.0 - 0.1 K/cumm Neutrophil pct 57.2 % Imm gran pct 0.3 % Lymphocyte pct 22.1 % Monocyte pct 9.5 % Eosinophil pct 9.5 % Basophil pct 1.4 % eGFR Collection Time: 04/20/24 4:24 AM Result Value Ref Range eGFR 67 >=60 mL/min/1.73 m2 No results found. Current Facility-Administered Medications Medication Dose Route Frequency Provider Last Rate Last Admin acetaminophen (TYLENOL) tablet 650 mg 650 mg oral Q6H PRN KustermannTomasen L., SURGICAL TERRITORY MANAGER Or acetaminophen (TYLENOL) 32 mg/mL oral liquid 650 mg 650 mg feeding tube Q6H PRN Jammie DicksonL., SURGICAL TERRITORY MANAGER Or acetaminophen (TYLENOL) suppository 650 mg 650 mg rectal Q6H PRN TresaermannTomasen L., SURGICAL TERRITORY MANAGER sodium chloride 0.9% flush 0.5-20 mL 0.5-20 mL intra-catheter Q8H ROBERTO Jammie Dickson L., SURGICAL TERRITORY MANAGER 10mL at 04/20/24 0510 sodium chloride 0.9% flush 0.5-20 mL 0.5-20 mL intra-catheter PRN TresaermannJammie L., SURGICAL TERRITORY MANAGER sodium chloride 0.9% infusion 75 mL/hr intravenous Continuous Jammie Dickson L., SURGICAL TERRITORY MANAGER 75 mL/hr at 04/20/24 0404 75 mL/hr at 04/20/24 0404 Principal Problem: Altered mental status, unspecified altered mental status type Active Problems: HTN (hypertension) Hyperlipidemia Type 2 diabetes mellitus (HCC) UTI (urinary tract infection) CVA (cerebral vascular accident) ([facility]) Resolved Problems: No resolved hospital problems. A/P Altered Mental Status Worsening CVA; post recent CVA with left sided hemiplegia (Apr 07, 2024): Transferred from OSH for AMS likely 2/2 Worsening CVA based on CT head vs UTI. -CXR ordered to r/o any infectious processes -MRI brain ordered; further imaging/testing per neurology recommendations -No recent ECHO results available (need requested from malik) -continue aspirin and statin -Neurochecks 4hrs -Fall precautions; up with assistance -PT/OT/ST eval and tx -Dr Rodgers, Neurology consulted -Lipid panel, A1c ordered UTI: UA positive. >100 WBCs, 3+LEs -Urine culture pending -Continue IV rocephin -Cont IVFs -Strict intake and output -Routine fernandez cath care Type 2DM: -HgbA1c ordered -Blood glucose monitoring ACHS. -SSI ordered -Hold dose of metformin -Npo diet until speech therapy evaluates HTN: BP 100-110s/70-90s; normotensive -Hold antihypertensives to avoid hypotension -resume when appropriate -routine VS; monitor BP closely HLD: Lipid panel ordered Continue statin DVT prophylaxis:SCDs Code status:Full Code; Clarify code status with POA or healthcare surrogate Anticipated length of stay to be greater than 2 days My total encounter time on 04/19/2024 was 57 minutes which was spent in the activities documented inthe note. This includes time spent prior to the visit and after the visit in direct care of the patient. This time does not include time spent in any separately reportable services. MDM complexity: moderate Voice recognition software [employer] was used dictate and transcribe this document. Project Manager variances may occur. Despite proofreading, typographical errors may occur. Jammie Dickson NP Date of Service: 04/19/2024 Cosigned by Man Roberts MD at 04/21/2024 12:09 AM CDT Associated attestation - Man Roberts MD - 04/21/2024 12:09 AM CDT This patient was independently evaluated by the nurse practitioner. I was available for immediate consultation and in-person evaluation if required but was not asked to do so. - Man Roberts MD documented in this encounter Procedure Notes * Arpan Rodgers MD - 04/21/2024 1:48 PM CDTAssociated Order(s): EEG Reason for exam: Altered mental status Technical: This is a digitally recorded electroencephalogram. It was just over 23 minutes long. Theinternational 10-20 electrode placement system is used for scalp electrode placement. Eighteen channels of scalp EEG are recorded. One channel was used for EOG. Another channel was used for ECG. The data are stored digitally and reviewed in reformatted montages for optimal display. Background: Background consists primarily of 5-6 hertz theta range activity. This is seen bilaterally. It is not particularly well reactive to eye opening or closure. Intermittently seen periods of attenuation primarily over the right occipital region. Also seen are intermittent left temporal sharpand wave discharges. Description: . No seizure like activity was observed during this recording. Patient entered into periods of drowsiness and light sleep. Hyperventilation was not performed due to patient's clinical condition. Photic stimulation was performed without any additional abnormalities. Impression: Abnormal EEG. Left temporal discharges could suggest underlying epileptogenicity. Intermittent right occipital attenuation suggests focal dysfunction, and consider underlying structural lesion. Generalized slowing suggests diffuse cerebral dysfunction, as can be seen in encephalopathy due to various etiologies. No seizure like activity was observed. Correlation with clinical findings is needed. documented in this encounter Consult Notes * Braden Fernandez MD - 04/26/2024 10:39 AM CDTAssociated Order(s): IP CONSULT TO VASCULAR SURGERY Images from the original note were not included. [facility] CONSULT NOTE Patient Name/MRN: Lnyn Zelaya [id number] Treatment Team: Vascular Surgery Attending: Sosa Andino MD Today's Date: 04/26/2024 Admitting Service: Medical Admitting location: [place] [id number] Admit Date: 04/20/2024 Code Status: Full Code Reason for Consult:: recurrent CVA. L carotid disease History of Present Illness: Lynn Zelaya is a 63 y.o. female admitted on 04/20/2024 for left upper extremity and lower extremity weakness Location: Carotid stenosis Quality: Dull Severity: Moderate Duration: Years Timing: Chronic Context: 63-year-old female with a history of rheumatoid arthritis, HTN, HLD history of multiple strokes with some left-sided residual hemiparesis who presented for altered mental status with concernfor left-sided weakness. Was found have a right posterior cerebral artery territory stroke. Vascular surgery consulted for evidence of carotid disease on carotid duplex. Majority of history obtained from epic and nursing staff as patient slow to respond to questioning. Associated Signs/Symptoms: None Exacerbating Factors: None Mitigating Factors: None Past Medical History: Diagnosis Date Arthritis Hypertension Hypertension RA (rheumatoid arthritis) (HCC) Stroke (HCC) History reviewed. No pertinent surgical history. Family History Problem Relation Age of Onset Diabetes Mother Hypertension Mother Hypertension Father Diabetes Sister Hypertension Sister Prostate cancer Other Family history of Cancer, prostate; Hypertension Other Family history of Hypertension; Social History Tobacco Use Smoking status: Former Current packs/day: 0.00 Types: Cigarettes Quit date: 2009 Years since quittin.7 Smokeless tobacco: Never Substance and Sexual Activity Drug use: Not Currently Types: Tobacco Sexual activity: None Alcohol Use: Not At Risk (04/20/2024) AUDIT-C Frequency of Alcohol Consumption: Never Average Number of Drinks: Patient does not drink Frequency of Binge Drinking: Never Allergies Allergen Reactions Lisinopril Other (See comments) Cough Prior to Admission medications Medication Sig Start Date End Date Taking? Authorizing Provider aspirin 81 mg enteric coated tablet Take 1 tablet (81 mg total) by mouth daily Yes Lakhwinder Archer MD clopidogreL (PLAVIX) 75 mg tablet Take 1 tablet (75 mg total) by mouth daily Yes Lakhwinder Archer MD FLUoxetine (PROzac) 20 mg tablet Take 1 tablet (20 mg total) by mouth daily Yes Lakhwinder Archer MD gabapentin (NEURONTIN) 300 mg capsule Take 1 capsule (300 mg total) by mouth 3 (three) times a day as needed (headache) Yes Lakhwinder Archer MD hydrOXYzine (ATARAX) 25 mg tablet Take 1 tablet (25 mg total) by mouth every 6 (six) hours as needed for anxiety Yes Lakhwinder Archer MD leflunomide (ARAVA) 20 mg tablet Take 1 tablet (20 mg total) by mouth daily Yes Lakhwinder Archer MD rosuvastatin (CRESTOR) 20 mg tablet Take 1 tablet (20 mg total) by mouth nightly Yes Lakhwinder Archer MD tamsulosin (FLOMAX) 0.4 mg extended release capsule Take 1 capsule (0.4 mg total) by mouth daily Yes Lakhwinder Archer MD verapamil SR (CALAN SR) 180 mg CR tablet Take 1 tablet (180 mg total) by mouth daily Yes Lakhwinder Archer MD ondansetron (ZOFRAN) 4 mg tablet Take 1 tablet (4 mg total) by mouth every 8 (eight) hours as needed for nausea or vomiting Lakhwinder Archer MD ROS: Constitutional: No change in appetite. No recent weight loss. No fevers chills or sweats. HEENT: No trouble swallowing. No tinnitus. Eyes: No visual disturbances Respiratory: No shortness of breath. No cough or sputum production. No wheezing. Cardiovascular: No chest pain. No palpitations. Gastrointestinal: No abdominal pain. No nausea vomiting or diarrhea. Genitourinary: No dysuria. No hematuria. Extremities: No claudication. No rest pain. No lower extremity ulcerations or infections. No significant edema. Musculoskeletal: No joint pains. No back pain. Neurologic: No dizziness. No syncope. No weakness. Skin: No rashes. No discoloration. Hematologic: no bleeding Psychiatric: no anxiety, no behavioral changes, no mood swings Objective Vitals: 24hr Min/Max: Temp Min: 36.5 ??C (97.7 ??F) Max: 36.8 ??C (98.2 ??F) Pulse Min: 83 Max: 109 BP Min: 128/78 Max: 172/92 Resp Min: 18 Max: 20 SpO2 Min: 96 % Max: 99 % Most Recent: Vitals: 04/26/24 0730 BP: Pulse: 88 Resp: Temp: SpO2: I/O last 2 completed shifts: In: 660 [P.O.:440; I.V.:20; IV Piggyback:200] Out: - No intake/output data recorded. Physical Exam: Constitutional: Alert and oriented HEENT: Head atraumatic and normocephalic Neck is supple No carotid bruits Extraocular movements full, sclerae anicteric Chest: Effort normal. Breath sounds normal. Cardiovascular: S1 and S2 are normal. No murmurs rubs or gallops appreciated. Abdominal: Soft, nontender, no masses. Extremities/Vascular: Palpable radial pulses bilaterally. Musculoskeletal: Normal range of motion. Neurologic: Cranial nerves 2-12 intact. Strength and sensation intact bilaterally. Skin: Warm and dry. No rashes. No discoloration. Psychiatric: Normal mood and affect. Behavior normal. Judgment normal. Lab/Radiology/Diagnostic Review: Laboratory review: Lab results in the last 24 hours: Recent Results (from the past 24 hour(s)) POCT glucose Collection Time: 04/25/24 11:14 AM Result Value Ref Range Glucose, POC 124 70 - 199 mg/dL Glucose comment 1 Use This Result POCT glucose Collection Time: 04/25/24 4:27 PM Result Value Ref Range Glucose, POC 128 70 - 199 mg/dL Glucose comment 1 Use This Result POCT glucose Collection Time: 04/25/24 8:23 PM Result Value Ref Range Glucose, POC 136 70 - 199 mg/dL POCT glucose Collection Time: 04/26/24 7:11 AM Result Value Ref Range Glucose, POC 125 70 - 199 mg/dL Glucose comment 1 Use This Result I reviewed interpreted her carotid duplex as well as CTA head and neck which shows moderate 50-69% stenosis of bilateral internal carotid arteries. Left vertebral artery is occluded. 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 female with a history of HTN, HLD rheumatoid arthritis and multiple strokes admitted with concern for new right-sided stroke with left-sided deficits. Plan: 1. Bilateral carotid stenosis. -Unlikely to be the source of her stroke as her stroke was in the posterior circulation. Would recommend continuing her Xarelto Plavix statin therapy and good blood pressure control. Can follow up carlie an outpatient for ongoing surveillance of her carotid disease in 6 months. 2. HLD -Crestor 3. DM -Insulin Braden Fernandez MD Vascular Surgery This note was generated in part or in whole with voice recognition software. Voice recognition is usually quite accurate but there are instructor pilot errors that can and often occur. All attempts weremade to correct these errors. I apologize for any typographical errors that were not detected and corrected. * Rashad Landers MD - 04/23/2024 11:13 AM CDTAssociated Order(s): IP CONSULT TO CARDIAC SURGERY; IP CONSULT TO CARDIAC SURGERY Cardiac Surgery - Consult Admission Date: 04/20/2024 Lynn Zelaya is a 63 y.o. female with chief complaint of altered mental status. HPI: Ms. Zelaya is a 63 y/o female, with PMHx rheumatoid arthritis, HTN, HLD, and history of multiplestrokes since July 01, 2023. She has had five CVAs with left-sided residual hemiparesis. She presented again on 04/20 with altered mental status. Workup revealed acute ischemia in the right posterior cerebral artery territory. SHIVAM revealed atheroma in the descending aorta and arch and Lambl's excrescence on the aortic valve. For this Cardiac Surgery was consulted. SHIVAM 04/22/2024 showing normal LV systolic function and size, normal RV function and size, dilated left atrium. Left atrial appendage free of thrombus in multiple views. Bubble study negative for shunt. Mild anterior mitral valve prolapse with mild-moderate MR with mild mitral stenosis with mean gradient 6 mm Hg, mild TR, settled mobile entities on aortic valve cusps consistent with Lambl's excrescence, mild pulmonic valve regurgitation, aortic root normal size, IVC not well visualized, very severe aortic atherosclerosis in descending aorta and the arch with minimally mobile atheroma. Patient is oriented to person, follows some commands. Does not answer questions appropriately. Past Medical History: Diagnosis Date Arthritis Hypertension Hypertension RA (rheumatoid arthritis) (HCC) Stroke (HCC) History reviewed. No pertinent surgical history. HOME MEDICATIONS : aspirin 81 mg enteric coated tablet clopidogreL (PLAVIX) 75 mg tablet FLUoxetine (PROzac) 20 mg tablet gabapentin (NEURONTIN) 300 mg capsule hydrOXYzine (ATARAX) 25 mg tablet leflunomide (ARAVA) 20 mg tablet rosuvastatin (CRESTOR) 20 mg tablet tamsulosin (FLOMAX) 0.4 mg extended release capsule verapamil SR (CALAN SR) 180 mg CR tablet ondansetron (ZOFRAN) 4 mg tablet Allergies Allergen Reactions Lisinopril Other (See comments) Cough Social History Tobacco Use Smoking status: Former Current packs/day: 0.00 Types: Cigarettes Quit date: 2009 Years since quittin.7 Smokeless tobacco: Never Substance and Sexual Activity Drug use: Not Currently Types: Tobacco Sexual activity: None Alcohol Use: Not At Risk (04/20/2024) AUDIT-C Frequency of Alcohol Consumption: Never Average Number of Drinks: Patient does not drink Frequency of Binge Drinking: Never Family History Problem Relation Age of Onset Diabetes Mother Hypertension Mother Hypertension Father Diabetes Sister Hypertension Sister Prostate cancer Other Family history of Cancer, prostate; Hypertension Other Family history of Hypertension; Review of Systems Constitutional: Positive for activity change. Negative for chills, fatigue and fever. HENT: Negative for congestion, ear pain, sinus pain, sore throat and trouble swallowing. Eyes: Negative for pain and redness. Respiratory: Negative for cough and shortness of breath. Cardiovascular: Negative for chest pain, palpitations and leg swelling. Gastrointestinal: Negative for abdominal pain, constipation, diarrhea, nausea and vomiting. Endocrine: Negative for cold intolerance, heat intolerance, polydipsia and polyphagia. Genitourinary: Negative for difficulty urinating, frequency and urgency. Musculoskeletal: Positive for gait problem. Negative for arthralgias and neck pain. Skin: Negative for rash and wound. Allergic/Immunologic: Negative for environmental allergies, food allergies and immunocompromised state. Neurological: Positive for weakness and numbness. Negative for syncope. Hematological: Negative for adenopathy. Does not bruise/bleed easily. Psychiatric/Behavioral: Negative for agitation, decreased concentration and sleep disturbance. The patient is not nervous/anxious. Vitals: Arrival Vitals [04/20/24 0338] Temp 37.4 ??C (99.3 ??F) Pulse 107 Resp 20 BP 106/92 SpO2 97 % Temp src Oral Heart Rate Source Patient Position Lying BP Location Right arm FiO2 (%) Most Recent : Vitals: 04/23/24 0724 BP: 144/76 Pulse: 92 Resp: 18 Temp: 36.9 ??C (98.4 ??F) SpO2: 97% Objective Physical Exam Vitals reviewed. Constitutional: General: She is not in acute distress. Appearance: She is normal weight. HENT: Head: Normocephalic and atraumatic. Nose: Nose normal. Mouth/Throat: Mouth: Mucous membranes are moist. Pharynx: Oropharynx is clear. Eyes: Extraocular Movements: Extraocular movements intact. Conjunctiva/sclera: Conjunctivae normal. Cardiovascular: Rate and Rhythm: Normal rate and regular rhythm. Pulses: Normal pulses. Heart sounds: Murmur heard. Pulmonary: Effort: Pulmonary effort is normal. Breath sounds: Normal breath sounds. Abdominal: General: There is no distension. Palpations: Abdomen is soft. Tenderness: There is no abdominal tenderness. Musculoskeletal: Cervical back: Normal range of motion. Right lower leg: No edema. Left lower leg: No edema. Comments: Left-sided hemiplegia Skin: General: Skin is warm and dry. Neurological: Mental Status: She is alert. Comments: Oriented to person only. Left-sided hemiplegia. Follows most commands. Does not answer questions appropriately. Lab/Radiology/Diagnostic Review: Lab results in the last 24 hours: Recent Results (from the past 24 hour(s)) POCT glucose Collection Time: 04/22/24 12:02 PM Result Value Ref Range Glucose, POC 123 70 - 199 mg/dL Glucose comment 1 Use This Result POCT glucose Collection Time: 04/22/24 4:03 PM Result Value Ref Range Glucose, POC 167 70 - 199 mg/dL Glucose comment 1 Use This Result POCT glucose Collection Time: 04/22/24 7:53 PM Result Value Ref Range Glucose, POC 134 70 - 199 mg/dL Glucose comment 1 Use This Result POCT glucose Collection Time: 04/23/24 8:02 AM Result Value Ref Range Glucose, POC 136 70 - 199 mg/dL CBC with auto differential Collection Time: 04/23/24 10:24 AM Result Value Ref Range WBC 8.2 3.8 - 9.9 K/cumm Hgb 9.9 (L) 11.9 - 15.5 g/dL Hct 30.7 (L) 35.6 - 45.5 % Plt 290 150 - 400 K/cumm MPV 10.4 9.1 - 12.3 fL RBC 3.59 (L) 3.90 - 5.20 M/cumm MCV 85.5 81.3 - 96.4 fL MCH 27.6 27.1 - 33.3 pg MCHC 32.2 (L) 32.3 - 35.7 g/dL RDW CV 14.6 11.1 - 14.9 % RDW SD 45.0 35.7 - 48.1 fL NRBC abs 0.00 0.00 - 0.01 K/cumm Differential, auto Collection Time: 04/23/24 10:24 AM Result Value Ref Range Neutrophil abs 5.4 1.5 - 6.5 K/cumm Imm gran abs 0.0 0.0 - 0.1 K/cumm Lymphocyte abs 1.5 0.8 - 3.3 K/cumm Monocyte abs 0.5 0.2 - 0.8 K/cumm Eosinophil abs 0.6 (H) 0.0 - 0.5 K/cumm Basophil abs 0.1 0.0 - 0.1 K/cumm Neutrophil pct 66.7 % Imm gran pct 0.1 % Lymphocyte pct 18.3 % Monocyte pct 6.1 % Eosinophil pct 7.7 % Basophil pct 1.1 % , Chemistry CMP: Lab Results Component Value Date ALBUMIN 3.7 04/22/2024 BUNSER 13 04/22/2024 CALCIUM 9.6 04/22/2024 CO2 27 04/22/2024 CHLORIDE 105 04/22/2024 CREATININE 0.81 04/22/2024 GLUCOSE 136 04/23/2024 GLUCOSE 117 04/22/2024 POTASSIUM 3.8 04/22/2024 SODIUM 140 04/22/2024 , CBC: Lab Results Component Value Date WBC 8.2 04/23/2024 RBC 3.59 (L) 04/23/2024 HGB 9.9 (L) 04/23/2024 HCT 30.7 (L) 04/23/2024 MCV 85.5 04/23/2024 MCH 27.6 04/23/2024 MCHC 32.2 (L) 04/23/2024 RDWCV 14.6 04/23/2024 RDWSD 45.0 04/23/2024 MPV 10.4 04/23/2024 NRBCABS 0.00 04/23/2024 , Coags: No results found for: AZ , PT , PTT , APTT , FFN , FIBRINOGEN , INR , ACTIVATEDCL , Lipids: No results found for: CHOL , CHLPL , HDL , LDLCALC , TRIG , CHOLHDL , Cardiac Enzymes: No results found for: CKTOTAL , CKMB , CKMBINDEX , TROPONINT and POC Glucose: Lab Results Component Value Date GLUCOSE 136 04/23/2024 GLUCOSE 117 04/22/2024 Recent Labs Lab Units 04/20/24 0424 HEMOGLOBIN A1C % 6.2* CTA Chest Abdomen Pelvis EXAM DESCRIPTION: CTA CHEST ABDOMEN PELVIS REASON FOR STUDY: Aortic atherosclerosis, concern for embolic events Aortic atherosclerosis concern for embolic events. severe aortic atherosclerosis with mobile atheroma Hx: HTN, Stroke TECHNIQUE: CTA scan of the chest, abdomen, and pelvis performed without and with intravenous and without oral contrast using helical scanning technique with dynamic intravenous contrast injection. Precontrast images of the chest were acquired. Arterial phase images of the chest, abdomen, and pelvis as well as portal venous phase images of the abdomen were also acquired. Reconstructed coronal and sagittal MPR images reviewed. All images stored on PACS. 3D MIP images rendered on scanning unit [...] changes left subclavian and brachiocephalic arteries. Left vertebral artery is not visualized proximally though as partially visualized on highest available sections, this may be reconstituted from proximal occlusion. Please correlate clinically. Descending thoracic aorta demonstrates moderate atherosclerotic irregularity without high-grade stenosis or aneurysmal segment. No deep ulceration. CELIAC TRUNK: No flow limiting stenosis, dissection, or aneurysm. SUPERIOR MESENTERIC ARTERY: Severe stenosis due to calcified and noncalcified plaque at the origin. RIGHT RENAL ARTERY: Severe stenosis with calcified and noncalcified plaque. LEFT RENAL ARTERY: Duplicated without high-grade stenosis. [...] moderate stenosis through the common iliac artery. The internal and external iliac arteries are patent with segments of moderate to severe stenosis. Left common iliac artery demonstrates calcified plaque with regions of 50-75% stenosis extending to the external iliac. Left internal iliac is patent with a severe proximal stenosis. CHEST LUNGS: Central airways are patent. No consolidations. Interstitial densities suggesting scarring or atelectasis at the bases. PLEURA: No effusion. No pneumothorax. MEDIASTINUM/JORDAN: Nonenlarged lymph nodes retrocaval pretracheal space, subcarinal space and hilar regions likely postinflammatory. HEART: Heart size is normal with no pericardial effusion. AXILLA: No adenopathy. CHEST WALL: Bilateral breast prosthesis without surrounding fluid collection or induration. HARDWARE/LINES/TUBES: None. MUSCULOSKELETAL CHEST: No [...] peripancreatic fluid collections. Pancreatic duct not dilated. ADRENALS: Normal. KIDNEYS/URINARY TRACT: No stone or hydronephrosis. Midpole probable cysts on the right with no follow-up required per guidelines. Urinary bladder is unremarkable. GI: No dilated bowel loops. No obvious wall thickening. Normal appendix. No significant diverticular disease. PERITONEUM: No ascites or [...] Channing Lopez M.D. RB T: Report ID: [id number] Reading Location: [id number] Transesophageal Echo (SHIVAM) W Doppler/CF Version 2 Transesophageal Echocardiogram + + :Name: LYNN ZELAYA JStudy Date: 04/22/2024 Status: [facility] : : Patient Location: [address]^[id number]^Height: 64 in : : Weight: 127 lbBP: 135/84 mmHg: :: 1960 Gender: Female BSA: 1.6 m2 : :Reason For Study: Stroke, follow up : :Ordering Physician: JAN, : :SOSA : :Referring Physician: : :UNKNOWN, NOTINFILE : :Performed By: Michelle : :MEMO SchreiberCS : + + Procedure Shivam probe # is '[id number] [...] or regurgitation. There is mild TR, trace AZ, slight restriction of mitral valve anterior leaflet [...] abdomen, pelvis. 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 History of five strokes over the past [address] scan shows plaques in the aorta and echo shows Lambl's excrescence. Patient's course and imaging have been reviewed. Patient has been seen with Dr. Landers. There are non-mobile, sessile plaques in the aortic arch and minor Lambl's excrescence on the aortic valve. These have low likelihood as a reason for embolic strokes. There is no indication for Cardiac Surgery. Patient has high-grade left carotid stenosis, recommend vascular consultation. Continue medical management per primary. Recommend anticoagulation. Navjot Hatfield PA-C Cardiothoracic Surgery [facility] Pt seen 04/23/24. SHIVAM and CTA chest reviewed. Agree with PA's assessment and recommendations. MD MINA * Patricia Jackson, [place] - 04/22/2024 2:12 PM CDTAssociated Order(s): IP CONSULT TO CARDIOLOGY [facility] Cardiology Consult Note Patient Id: Lynn Zelaya is a 63 y.o. female. MR#: [id number] Reason for consultation: mobile atheroma on SHIVAM with acute strokes Physician requesting consult: ELLIOT Berry HPI: Patient is a 63 y.o. female with PMHx 5 CVAs since 06/2023, HTN, HLD who presents to ED with chief complaint of altered mental status 1-2 days. Pt has had 5 CVAs since 06/2023 with residual left sided hemiparesis. Patient underwent shivam today showing mobile atheroma and Lambl's excrescence, therefore cardiology was consulted for management and recommendation on anticoagulation. Patient has been following with [facility]e with plans for implantable loop recorder. SUBJECTIVE 04/22/2024: Patient is currently sitting up in bed in no apparent distress on room air. She currently denies chest pain, change in vision, dizziness, SOB, palpitations. She tolerated the SHIVMA well. We discussed her findings with recommendation for anticoagulation, ASA 81 mg daily, as well as high-intensity statin. She is agreeable to this plan. I called and spoke with the patient's , Oneil, and we discussed the findings of the SHIVAM and our recommendation for anticoagulation going forward. Patient does not have a history of any bleeding diatheses. Her is agreeable tothe plan. Advised neurology will repeat imaging prior to starting anticoagulation on Thursday at the soonest. We also discussed pending recommendation from CTS regarding findings of mobile atheroma andLambl's excrescence with now 5 strokes. Previous Cardiovascular Procedures and Past Medical History HTN HLD CVAs Echo Doppler -SHIVAM 04/22/2024 showing normal LV systolic function and size, normal RV function and size, dilated left atrium. Left atrial appendage free of thrombus in multiple views. Bubble study negative for shunt. Mild anterior mitral valve prolapse with mild-moderate MR with mild mitral stenosis with mean gradient 6 mm Hg, mild TR, settled mobile entities on aortic valve cusps consistent with Lambl's excrescence, mild pulmonic valve regurgitation, aortic root normal size, IVC not well visualized, very severe aortic atherosclerosis in descending aorta and the arch with minimally mobile atheroma. -TTE 12/31/2023 showing EF 60-65%, moderate mitral stenosis with moderate left atrial enlargement, no PFO noted Prior cardiac monitors: 30 day event monitor 03/01/2024 negative for arrhythmias showing NSR rate 60s-70s Stress Test Not in system Left Heart Catheterization Not in system Past Medical History: Diagnosis Date Arthritis Hypertension Hypertension RA (rheumatoid arthritis) (HCC) Stroke (HCC) History reviewed. No pertinent surgical history. Social History Tobacco Use Smoking status: Former Current packs/day: 0.00 Types: Cigarettes Quit date: 2009 Years since quittin.7 Smokeless tobacco: Never Substance and Sexual Activity Drug use: Not Currently Types: Tobacco Sexual activity: None Alcohol Use: Not At Risk (04/20/2024) AUDIT-C Frequency of Alcohol Consumption: Never Average Number of Drinks: Patient does not drink Frequency of Binge Drinking: Never Family History Problem Relation Age of Onset Diabetes Mother Hypertension Mother Hypertension Father Diabetes Sister Hypertension Sister Prostate cancer Other Family history of Cancer, prostate; Hypertension Other Family history of Hypertension; HOME MEDICATIONS : aspirin 81 mg enteric coated tablet clopidogreL (PLAVIX) 75 mg tablet FLUoxetine (PROzac) 20 mg tablet gabapentin (NEURONTIN) 300 mg capsule hydrOXYzine (ATARAX) 25 mg tablet leflunomide (ARAVA) 20 mg tablet rosuvastatin (CRESTOR) 20 mg tablet tamsulosin (FLOMAX) 0.4 mg extended release capsule verapamil SR (CALAN SR) 180 mg CR tablet ondansetron (ZOFRAN) 4 mg tablet HOSPITAL PROBLEMS: Principal Problem: Altered mental status, unspecified altered mental status type Active Problems: HTN (hypertension) Hyperlipidemia Type 2 diabetes mellitus (HCC) UTI (urinary tract infection) CVA (cerebral vascular accident) (HCC) 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 REVIEW OF SYSTEMS Negative unless noted in HPI Allergies Allergen Reactions Lisinopril Other (See comments) Cough HOME MEDICATIONS : aspirin 81 mg enteric coated tablet clopidogreL (PLAVIX) 75 mg tablet FLUoxetine (PROzac) 20 mg tablet gabapentin (NEURONTIN) 300 mg capsule hydrOXYzine (ATARAX) 25 mg tablet leflunomide (ARAVA) 20 mg tablet rosuvastatin (CRESTOR) 20 mg tablet tamsulosin (FLOMAX) 0.4 mg extended release capsule verapamil SR (CALAN SR) 180 mg CR tablet ondansetron (ZOFRAN) 4 mg tablet Scheduled Medications: Scheduled Medications Medication Dose Route Frequency ampicillin (OMNIPEN) 500 mg in sodium chloride 0.9% 100 mL IVPB 500 mg intravenous Q6H ROBERTO aspirin enteric coated tablet 81 mg 81 mg oral Daily clopidogreL (PLAVIX) tablet 75 mg 75 mg oral Daily divalproex (DEPAKOTE SPRINKLE) sprinkle capsule 500 mg 500 mg oral BID ergocalciferol (VITAMIN D) capsule 50,000 Units 50,000 Units oral Weekly FLUoxetine (PROzac) capsule 20 mg 20 mg oral Daily insulin lispro (HumaLOG, ADMELOG) 100 unit/mL injection 0-4 Units 0-4 Units subcutaneous Nightly insulin lispro (HumaLOG, ADMELOG) 100 unit/mL injection 0-5 Units 0-5 Units subcutaneous TID with meals leflunomide (ARAVA) tablet 20 mg 20 mg oral Daily rosuvastatin (CRESTOR) tablet 20 mg 20 mg oral Daily sodium chloride 0.9% flush 0.5-20 mL 0.5-20 mL intra-catheter Q8H ROBERTO Continuous Medications: Current Facility-Administered Medications Medication Dose Route Frequency Last Admin PRN Medications: acetaminophen, 650 mg, 650 mg at 04/22/24 1421 OR acetaminophen, 650 mg OR acetaminophen, 650 mg dextrose, 15 g OR dextrose, 250 mL glucagon, 1 mg hydrOXYzine, 25 mg, 25 mg at 04/22/24 1421 sodium chloride 0.9%, 0.5-20 mL PHYSICAL EXAMINATION BP 125/76 (BP Location: Right arm, Patient Position: [facility] 30 degrees) Pulse 88 Temp 36.9 ??C (98.4 ??F) (Oral) Resp 18 Ht 160 cm (5' 3 ) Wt 56.3 kg (124 lb 1.6 oz) SpO2 96% BMI 21.98 kg/m?? Arrival Vitals [04/20/24 0338] Temp 37.4 ??C (99.3 ??F) Pulse 107 Resp 20 BP 106/92 SpO2 97 % Temp src Oral Heart Rate Source Patient Position Lying BP Location Right arm FiO2 (%) 24hr Min/Max: Temp Min: 36.5 ??C (97.7 ??F) Max: 37.6 ??C (99.7 ??F) Pulse Min: 84 Max: 96 BP Min: 116/63 Max: 150/84 Resp Min: 8 Max: 20 SpO2 Min: 94 % Max: 100 % General: No acute distress, cooperative Neck: Supple, nontender, trachea midline. There is no jugular venous distention at 45??. Carotids are brisk and equal without bruits. Respiratory: Clear to auscultation bilaterally Cardiovascular: S1-S2 normal, grade 1/6 systolic murmur Gastrointestinal: abd soft, non-tender Extremities: no cyanosis, clubbing or edema, bilaterally. Skin: warm and dry with no obvious rash or bruising Psychiatric: Pleasant, oriented Neurologic: Alert, oriented, LABS Recent Labs Lab Units 04/22/24 0716 04/20/24 0424 HEMOGLOBIN g/dL 8.8* 9.2* HEMATOCRIT % 27.9* 29.6* WBC K/cumm 5.8 7.4 PLATELETS K/cumm 262 252 Recent Labs Lab Units 04/22/24 1202 04/22/24 0717 04/22/24 0716 04/20/24 0809 04/20/24 042 SODIUM mmol/L -- -- 140 -- 139 POTASSIUM PLASMA mmol/L -- -- 3.8 -- 4.0 CHLORIDE mmol/L -- -- 105 -- 102 CO2 mmol/L -- -- 27 -- 26 ANIONGAP mmol/L -- -- 8 -- 11 GLUCOSE mg/dL -- -- 117 -- 115 POC GLUCOSE MONITOR mg/dL 123 < > -- < > -- BUN SERUM mg/dL -- -- 13 -- 18 CREATININE mg/dL -- -- 0.81 -- 0.95 CALCIUM mg/dL -- -- 9.6 -- 9.4 ALBUMIN g/dL -- -- 3.7 -- 3.8 ALK PHOS Units/L -- -- -- -- 69 ALT Units/L -- -- -- -- 16 AST Units/L -- -- -- -- 27 BILIRUBIN TOTAL mg/dL -- -- -- -- 0.3 < > = values in this interval not displayed. Recent Labs Lab Units 04/22/2471504/20/24423 HEMOGLOBIN g/dL 8.8* 9.2* HEMATOCRIT % 27.9* 29.6* WBC K/cumm 5.8 7.4 PLATELETS K/cumm 262 252 Recent Labs Lab Units 04/22/24 1202 04/22/24 0717 04/22/24 0716 04/20/24 0804/20/24 0424 SODIUM mmol/L -- -- 140 -- 139 POTASSIUM PLASMA mmol/L -- -- 3.8 -- 4.0 CHLORIDE mmol/L -- -- 105 -- 102 CO2 mmol/L -- -- 27 -- 26 ANIONGAP mmol/L -- -- 8 -- 11 GLUCOSE mg/dL -- -- 117 -- 115 POC GLUCOSE MONITOR mg/dL 123 < > -- < > -- BUN SERUM mg/dL -- -- 13 -- 18 CREATININE mg/dL -- -- 0.81 -- 0.95 CALCIUM mg/dL -- -- 9.6 -- 9.4 ALBUMIN g/dL -- -- 3.7 -- 3.8 ALK PHOS Units/L -- -- -- -- 69 ALT Units/L -- -- -- -- 16 AST Units/L -- -- -- -- 27 BILIRUBIN TOTAL mg/dL -- -- -- -- 0.3 < > = values in this interval not displayed. Recent Labs Lab Units 04/20/24423 TSH mcIUnit/mL 1.80 No lab exists for component: D-DIMER , QUANTITATIVE Recent Labs Lab Units 04/20/24423 LDL CALC mg/dL 48 HDL mg/dL 38* Lab Results Component Value Date HGBA1C 6.2 (H) 04/20/2024 Lab Results Component Value Date TSH 1.80 04/20/2024 No results found for: DIGOXIN Intake/Output: I/O last 2 completed shifts: In: 460 [P.O.:440; I.V.:20] Out: 1100 [Urine:1100] I/O this shift: In: 420 [P.O.:120; I.V.:300] Out: 0 Intake/Output Summary (Last 24 hours) at 04/22/2024 1513 Last data filed at 04/22/2024 1350 Gross per 24 hour Intake 640 ml Output 700 ml Net -60 ml Diagnostics: Telemetry independently interpreted: Sinus rhythm rate 80 ASSESSMENT/PLAN Principal Problem: Altered mental status, unspecified altered mental status type Active Problems: HTN (hypertension) Hyperlipidemia Type 2 diabetes mellitus (HCC) UTI (urinary tract infection) CVA (cerebral vascular accident) (HCC) 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 and continue ASA 81 mg daily when cleared by Neurology to start anticoagulation -continue rosuvastatin 20 mg daily -Spoke with Dr. Landers, cardiothoracic surgeon, who agrees to this consultation on patient with mobile atheroma with multiple CVAs -CTS referral placed -also recommend CTA chest abdomen pelvis to evaluate for further peripheral embolic phenomenon #multiple CVAs -neurology following -MRI showing acute ischemia in R [employer] territory to include basal ganglia, occipital and temporal lobes with subacute infarcts right parietal, left frontal, parietal and splenium concerning for cardioembolic nature -SHIVAM results as above, which likely is the cause of cardioembolic events, with recommendation for Eliquis and aspirin when okay with Neurology -patient plans to have loop recorder placed in the future due to multiple embolic strokes in the past -patient currently continues on ASA and Plavix per Neurology management with plan to switch to ASA and Eliquis and stop Plavix when okay with Neurology due to findings of above #HTN 125/76 -BP well-controlled -not currently taking antihypertensives #hyperlipidemia -LDL 48, HDL 38 -continue rosuvastatin 20 mg daily Medical decision-making: Moderate Case discussed with hospital physician On behalf of [facility] Cardiology at [facility], we appreciate the opportunity to participate inthe care of your patient. Please feel free to contact us for any questions regarding your patient'scare. Patricia Jackson NP [facility] Cardiology Office: [phone] 04/22/2024 3:13 PM This examination was transcribed using the [employer] voice recognition system. Despite proofreading, this report may retain undetected typographical, grammatical, and syntactical errors. Please contact me if you have any questions. Cosigned by Quan Kong Jr., MD at 04/22/2024 4:55 PM CDT Associated attestation - Quan Kong Jr., MD - 04/22/2024 4:55 PM CDT I personally reviewed and examined the patient. I reviewed the case with the mid level providing documenting above. I agree with the assessment and plan with any exceptions noted below This is a 63 y/o female with a history of multiple CVAs since June 2023, hypertension, hypercholesteremia who presented with altered mental status. Work up revealed an acute ischemia in the right posterior cerebral artery territory within the basal ganglia, occipital, temporal, frontal, parietal lobes suggestive of a cardioembolic source of emboli SHIVAM revealed mobile atheroma in the descending aorta and arch. Also lambl's excresence involving the aortic valve cusps Assessment/ plan --Atheroma- Anticoagulation with Eliquis. CT surgery staff will evaluate for possible surgical intervention * Autumn Maldonado, TRUCK CHAUFFEUR - 04/20/2024 1:00 PM CDT Images from the original note were not included. [facility] Inpatient Speech-Language Pathology Clinical Bedside Swallow Evaluation And Speech-Language Evaluation PRIOR MEDICAL HISTORY/SUBJECTIVE Patient Name: Lynn Zelaya Admit Date: 04/20/2024 Date of : 1960 Room: [place] [id number] Age/Sex: 63 y.o. female Date of Service: 04/20/2024 Patient is identified by name and date of on this visit. Referring Provider: Sosa Andino MD Primary Hospital Diagnosis: Altered mental status, unspecified altered mental status type [R41.82] HPI: Lynn Zelaya is a 63 y.o. female with h/o CVAs (L occipital, large R frontoparietal andL frontal) with residual L hemiparesis, RA, tobacco abuse, HTN and HLD that presented to OSH from rehab center (after recent stroke) with mental status changes and lethargy, only oriented to self (baseline Ox2) for 2 days. She is currently being treated for UTI with fernandez in place on Cefdinir. She was transferred because CTH at OSH showed worsening of recent stroke subacute infarct involving R internal capsule and R temporo-occipital region worsened since 04/07/24. Patient was referred to speech pathology services for post stroke evaluation due to swallowing and communication concerns. Patient is agreeable to speech pathology evaluation. Medical History Past Medical History: Diagnosis Date Arthritis Hypertension Hypertension RA (rheumatoid arthritis) (HCC) Stroke (HCC) Imagin04/20/24 MRI Brain WO Contrast: IMPRESSION: Large acute infarct involving the right [...] ischemic disease with chronic infarcts detailed above. 04/20/24 Chest Xray: IMPRESSION: No acute pulmonary process. Allergies Reviewed: Yes Lisinopril Precautions: Fall precautions Pain Assessment: No pain reported to TRUCK CHAUFFEUR. Patient Comment/Goal: Eat/drink be able to take medication for pain Assessment: Diet Solids Recommendation: Mechanical soft Diet Liquids Recommendations: Thin/regular Recommended Form of Medications: Whole, With liquid (1 at a time with verbal cues explaining pill/swallow with a drink of water) Compensatory Strategies/Modifications: Alternate solids and liquids, Single sips, Slow rate, Small bites Postural Recommendations: Upright 90 degrees, Upright 30 min after meal Assistance: One to one assist with meals Dysphagia Diagnosis: Mild oral stage dysphagia Overall Clinical Impression/Additional Information: Patient demonstrates: -oral motor exam revealed orofacial symmetry, strength, range of motion, and coordination grossly WFLs -dentition appears adequate -appropriate oral acceptance and slow manipulation/mastication -swallow timing appears at least slightly delayed -no signs or symptoms of aspiration -respiratory status does not appear to impair swallow function/safety -cognitive status may impair swallow function/safety -speech-language skills SIGNIFICANT IMPAIRMENTS IN COMPREHENSION AND EXPRESSION. Diet Orders Prior to Assessment: NPO Home Diet/Baseline Feeding Status: Mechanical Soft and Thin Respiratory Status: Current O2 support: Room air; No significant impairment; respiratory support is adequate for speechand swallowing Oral Motor Assessment: Oral Mucosa: moist Consistencies Administered: thin, puree, soft solid, and solid Anderson Assessment of Swallowing Ability (MASA) Alertness: Alert Cooperation: Cooperative Auditory Comprehension: Follows simple conversation with repetition Respiration: Chest clear Respiratory Rate (for swallow): Able to control breath rate for swallow Aphasia: Expresses self in limited manner short phrases/words Apraxia: Speech accurate after trial and error/minor searching movements Dysarthria: Slow with occasional hesitation or blurring Saliva: No abnormality detected Lip Seal: No abnormality detected Tongue Movement: Mild impairment in range Tongue Strength: Minimal weakness Tongue Coordination: Mild incoordination Gag: Diminished unilaterally Palate: No abnormality detected Cough Reflex: No deficit noted Voluntary Cough: No abnormality detected Voice: No abnormality detected Trach: No trach Oral Preparation: Lip or tongue seal, bolus escape Bolus Clearance: Significant clearance, minimal residue Oral Transit: Delay > 10 seconds Delay consistency: Solids Pharyngeal Phase: Mildly restricted laryngeal elevation, Slow initiation Pharyngeal Response: No deficits noted MASA Score: 172 Dysphagia: Mild dysphagia (168-177) Aspiration Risk: No aspiration risk (170-200) Score Interpretation: cognitive status directly impacting performance with solids Speech-Language Testing: Basic Cognition Oriented to self only. Unable to follow 1 step commands consistently. Voice WFLs Articulation/Phonology Speech productions are clear although noted difficulty with word finding and comprehension of auditory directions Comprehension Impaired. Unable to ID body parts or follow 1 step commands. Expression Unable to verbalize wants/needs effectively. Higher Cognitive Functioning Not tested due to significant comprehension/expression impairments Baseline Cognitive-Communication Status: Lives with spouse who assist with ADLs following CVAs. Cognitive Assessment Behavior/Cognition Overall Cognitive Status: Impaired: Arousal: Alert Orientation: Oriented to person Following Commands: Unable to follow commands Behavior: Easy to engage Safety Judgement: Decreased awareness of need for assistance and Decreased awareness of need for safety Problem Solving: Assistance required to identify errors made, Assistance required to generate solutions, and Assistance required to implement solutions [facility] Mental Status Examination UNABLE TO COMPLETE DUE TO LANGUAGE DEFICITS AT THIS TIME Language Assessment: Bedside Western Aphasia Battery (language screening tool): Spontaneous Speech Content: 2/10 Spontaneous Speech Fluency: 2/10 Auditory Verbal Comprehension: 0/10 Sequential Commands: 0/10 Repetition: 2/10 Object Namin/10 Readin/10 Writin/10 Apraxia: 0/10 Severity Rating: Very Severe: 0-25 These results indicate a very severe level of language impairment at this time. Education: Education: Caregivers educated on the diet recommendations. Education completed via verbal explanation and demonstration. Caregivers verbalized understanding. Principal Investigator Services Utilized: NO Plan: Goals established: 04/20/24 TRUCK CHAUFFEUR Care Plan Problems/Goals Swallowing STG - Patient will participate in clinical dysphagia evaluation Cognitive/Linguistics LTG - Patient will improve integrative language skills to allow for completion of daily activities Communication/Motor Speech STG - Patient will answer simple yes/no questions STG - Patient will follow 1 step commands to assist with completion of self-care tasks STG - Patient will identify body parts Recommended Follow-Up: Ongoing speech therapy TRUCK CHAUFFEUR Frequency: 1-2x/wk Next Planned Visit: 04/21/24 Discharge Recommendations: Defer at this time to PT/OT recommendations Barriers to Discharge: defer to medical team Discharge Summary Statement If this is the last speech therapy visit, this serves as the discharge summary. Autumn Maldonado M.A., CCC-TRUCK CHAUFFEUR Speech Language Pathologist TRUCK CHAUFFEUR Start Time: 1300 TRUCK CHAUFFEUR Stop Time: 1335 TRUCK CHAUFFEUR Time Calculation (min): 35 min * Sailaja Bloom PA - 04/20/2024 9:09 AM CDTAssociated Order(s): IP CONSULT TO NEUROLOGY Images from the original note were not included. 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 She is currently being treated for UTI w fernandez in place on Cefdinir. She was transferred because CTH at OSH showed worsening of recent stroke subacute infarct involving R internal capsule and R temporo-occipital region worsened since 04/07/24. NIH 16 but pt not following all commands. Spoke to PCP who stated all of patients strokes have been in the last year, all considered cryptogenic. After extensive review of the EMR we cannot see the admissions nor workup for any of the prior strokes which were most likely done at [facility] as we have no access and this is closest hospital to the patient. He is concerned that because she has RA on Arava that she has a form of vasculitis causing all of these strokes. He is requesting SHIVAM, loop recorder and cerebral angio as well as for patient to be started on anticoagulation. Past Medical History: Diagnosis Date Arthritis Hypertension Hypertension RA (rheumatoid arthritis) (HCC) Stroke (HCC) History reviewed. No pertinent surgical history. HOME MEDICATIONS : aspirin 81 mg enteric coated tablet clopidogreL (PLAVIX) 75 mg tablet FLUoxetine (PROzac) 20 mg tablet gabapentin (NEURONTIN) 300 mg capsule hydrOXYzine (ATARAX) 25 mg tablet leflunomide (ARAVA) 20 mg tablet ondansetron (ZOFRAN) 4 mg tablet rosuvastatin (CRESTOR) 20 mg tablet tamsulosin (FLOMAX) 0.4 mg extended release capsule verapamil SR (CALAN SR) 180 mg CR tablet Current Facility-Administered Medications Medication Dose Route Frequency Provider Last Rate Last Admin acetaminophen (TYLENOL) tablet 650 mg 650 mg oral Q6H PRN Jammie Dickson NP Or acetaminophen (TYLENOL) 32 mg/mL oral liquid 650 mg 650 mg feeding tube Q6H PRN KristenL. Dickson NP Or acetaminophen (TYLENOL) suppository 650 mg 650 mg rectal Q6H PRN Jammie Dickson NP aspirin enteric coated tablet 81 mg 81 mg oral Daily Jammie Dickson, [place]O cefTRIAXone (ROCEPHIN) 1,000 mg/10 mL in sterile water (premix) 1,000 mg 1,000 mg intravenous Q24H ROBERTO Jammie Dickson NP dextrose (GLUTOSE) 40 % gel 15 g 15 g oral Q15 Min PRN Jmamie Dickson NP Or dextrose (D10W) 10% bolus 250 mL 250 mL intravenous Q15 Min PRN Jammie Dickson, [place] ergocalciferol (VITAMIN D) capsule 50,000 Units 50,000 Units oral Weekly Sosa Andino MD glucagon injection 1 mg 1 mg intramuscular Q30 Min PRN Jammie Dickson, [place]APINCITO insulin lispro (HumaLOG, ADMELOG) 100 unit/mL injection 0-4 Units 0-4 Units subcutaneous Nightly Jammie Dickson NP insulin lispro (HumaLOG, ADMELOG) 100 unit/mL injection 0-5 Units 0-5 Units subcutaneous TID with meals Jammie Dickson NP rosuvastatin (CRESTOR) tablet 20 mg 20 mg oral Daily Jammie Dickson, [place]O sodium chloride 0.9% flush 0.5-20 mL 0.5-20 mL intra-catheter Q8H ROBERTO Jammie Dickson, SURGICAL TERRITORY MANAGER 10mL at 04/20/24 0510 sodium chloride 0.9% flush 0.5-20 mL 0.5-20 mL intra-catheter PRN Jammie Dickson NP sodium chloride 0.9% infusion 75 mL/hr intravenous Continuous Jammie Dickson SURGICAL TERRITORY MANAGER 75 mL/hr at 04/20/24 0404 75 mL/hr at 04/20/24 0404 Allergies Allergen Reactions Lisinopril Other (See comments) Cough Social History Tobacco Use Smoking status: Former Current packs/day: 0.00 Types: Cigarettes Quit date: 2009 Years since quittin. Smokeless tobacco: Never Substance and Sexual Activity Drug use: Not Currently Types: Tobacco Sexual activity: None Alcohol Use: Not At Risk (04/20/2024) AUDIT-C Frequency of Alcohol Consumption: Never Average Number of Drinks: Patient does not drink Frequency of Binge Drinking: Never Family History Problem Relation Age of Onset Diabetes Mother Hypertension Mother Hypertension Father Diabetes Sister Hypertension Sister Prostate cancer Other Family history of Cancer, prostate; Hypertension Other Family history of Hypertension; Review of Systems: A ten system review of constitutional, cardiovascular, respiratory, musculoskeletal, endocrine, skin, SHEENT, genitourinary, psychiatric and neurologic systems was obtained and is unremarkable with the exception of the following: Vitals: 24 hr Min/Max: Temp Min: 36.7 ??C (98.1 ??F) Max: 37.4 ??C (99.3 ??F) Pulse Min: 80 Max: 107 BP Min: 106/92 Max: 115/78 Resp Min: 20 Max: 20 SpO2 Min: 97 % Max: 98 % Most Recent: Vitals: 04/20/24 0709 BP: 115/78 Pulse: 80 Resp: 20 Temp: 36.7 ??C (98.1 ??F) SpO2: 98% Height: 160 cm (5' 3 ) Weight: 56.3 kg (124 lb 1.6 oz) BMI (Calculated): 22 I/O last 2 completed shifts: In: 1000 [I.V.:1000] Out: 1000 [Urine:1000] No intake/output data recorded. Physical Exam General: GEN: NAD, pleasant, cooperative CVS: RRR, normal radial pulse CHEST: No signs of resp distress, on room air ABD: Soft, NTTP. Cortical function: Awake, alert, does not follow commands, tells me her name is Carlie, can state the month and day of her but not the year, does not answer other questions. Language: difficult to determine if she is confused or has global aphasia. Cannot assess memory and attention Cranial Nerves: Visual Jones cannot be assessed, appears to blink to threat when she keeps her eyes open Pupils equally reactive to light, full EOM noted by tracking when eyes open Strength: L hemiparesis, cannot assess strength, moves RUE and RLE. Lab/Radiology/Diagnostic Review: Laboratory review: Chemistry CMP: Lab Results Component Value Date ALBUMIN 3.8 04/20/2024 BUNSER 18 04/20/2024 CALCIUM 9.4 04/20/2024 CO2 26 04/20/2024 CHLORIDE 102 04/20/2024 CREATININE 0.95 04/20/2024 GLUCOSE 133 04/20/2024 GLUCOSE 115 04/20/2024 POTASSIUM 4.0 04/20/2024 SODIUM 139 04/20/2024 BILITOT 0.3 04/20/2024 PROT 6.4 (L) 04/20/2024 ALT 16 04/20/2024 AST 27 04/20/2024 ALKPHOS 69 04/20/2024 , CBC: Lab Results Component Value Date WBC 7.4 04/20/2024 RBC 3.43 (L) 04/20/2024 HGB 9.2 (L) 04/20/2024 HCT 29.6 (L) 04/20/2024 MCV 86.3 04/20/2024 MCH 26.8 (L) 04/20/2024 MCHC 31.1 (L) 04/20/2024 RDWCV 14.3 04/20/2024 RDWSD 44.2 04/20/2024 MPV 10.5 04/20/2024 NRBCABS 0.00 04/20/2024 , Coags: No results found for: [place] , PT , PTT , APTT , FFN , FIBRINOGEN , INR , ACTIVATEDCL , Lipids: Lab Results Component Value Date CHOL 103 04/20/2024 HDL 38 (L) 04/20/2024 LDLCALC 48 04/20/2024 TRIG 85 04/20/2024 CHOLHDL 3 04/20/2024 , and Cardiac Enzymes: No results found for: CKTOTAL , CKMB , CKMBINDEX , TROPONINT , TROPTHS Additional (if available): Lab Results Component Value Date HGBA1C 6.2 (H) 04/20/2024 , Lab Results Component Value Date LDLCALC 48 04/20/2024 , Lab Results Component Value Date TSH 1.80 04/20/2024 Imaging No results found for this or any previous visit. Other studies: Echo - from December 2023 shows LVEF of 60-65% . Moderate mitral stenosis with moderate left atrial enlargement. No PFO noted. 30-day cardiac event monitor- From sinus rhythm with an average rate of 69 bpm. No atrial fibrillation noted. Assessment and Plan: 1.. The patient has acute ischemia in the R PACKAGE WINDER territory to include the Basal Ganglia, Occipital and Temporal lobes, subacute ischemia on the R parietal, L frontal and parietal lobes and L splenium in addition to her chronic L temporal lobe infarct on my independent review of MRI brain. She does not need permissive hypertension as onset was 2 days prior to admission. Cont ASA and Plavix indefinitely, she cannot be started on anticoagulation at this point because of acute strokes as well as there is no indication for anticoagulation as even a 30d event monitor failed to reveal this. TTE as above from December showed no ASD, PFO or thrombus, CTA pending, LDL 48 w HDL 38 - cont Crestor, A1C 6.2. She quit smoking earlier this year. Continue PT/OT/ST. Despite being >60yo will complete workup similar to those <60yo since she has had all of the above strokes within the last year. Obtain SHIVAM and hypercoagulable workup. Cosigned by Arpan Rodgers MD at 04/20/2024 2:40 PM CDT Associated attestation - Arpan Rodgers MD - 04/20/2024 2:40 PM CDT 63-year-old female with a history of multiple strokes, presents with mental status changes. Per report she has had numerous strokes all occurring within the last year. She presented to an outside hospital with mental status change and CT head showed worsening of recent stroke . Was transferred to [facility] and got an MRI brain, which shows large acute area of infarct involving essentially the entire right PACKAGE WINDER territory. Some of the right PACKAGE WINDER territory had already strokes, but the majority of it appears acute. There is then some more subacute appearing infarct and other territories, and chronic infarct in the right parietal region. PCP raised concern for vasculitis due to the numerous strokes and patient having rheumatoid arthritis, on treatment with leflunomide. Can check systemic inflammatory labs, but nothing clinically to suggest systemic vasculitis. Cerebral vasculitis in isolation is quite rare. In addition, the location appearance of the strokes would be unusual for this. She will be getting a CTA though for further vascular evaluation. We do not have capability here for direct angiography, nor is it urgently indicated at this point anyways. Of note, she does have significant atherosclerotic changes, most notablyright vertebral, also noted in intracranial ICA. Will review further on CTA. More likely etiology at this point would be cardioembolic, will obtain a SHIVAM, as per report has already had a TTE which was unremarkable. Will also need cardiac monitoring of some type upon discharge. Anticoagulation not indicated yet due to haven't found source of cryptogenic/embolic stroke, and she can not be safely ant icoagulated yet any ways with large acute stroke. Patient's case and plan of care was discussed in detail with the Neurology PA, agree with her findings as detailed in the attached consult note. documented in this encounter Nursing Notes * Jayla Finney, RN - 04/23/2024 6:40 AM CDT Patient asking for bedpan to urinate. Assisted onto bedpan. Unable to void. Given PO drinks of water. Repositioned and bladder scan 622 mls. Nurse went to get straight cath kit and on set up noted patient voided large amount urine in diaper, soiled diaper through bed pad and sheets. Re bladder scanof 293 mls. No straight cath at this time. Patient reports relief from incontinence. Patient cleansed and linen changed and placed new diaper. Repositioned and reset bed alarm. * Jossy Gonzalez - 04/20/2024 4:15 AM CDT 0335 Pt received From [facility] via stretcher, A&O to self, with NS infusing well on IV G 20 on the left AC, with fernandez Fr 16 connected to the urine bag with greenish urine output in color. Transferred to bed, oriented to room, call austin within reach, allergy & fall risk band attachedon the right wrist. Put on tele monitor. Bed alarm on. 0340 S/E by SURGICAL TERRITORY MANAGER Jammie. Hooked to NS regulated @ 75 ml/hr. Kept on comfortable position & kept monitored. documented in this encounter Miscellaneous Notes * Plan of Care - Ning Gordon RN - 05/03/2024 3:05 PM CDT DISCHARGE PLANNING HAS BEEN FINALIZED AT THIS TIME: If there is a change in patient condition whichcould impact this plan and/or additional discharge needs arise, please contact Case Management. Care management team spoke with patient's /Oneil and finalized discharge planning, please see below. If additional discharge needs arise, please reach out to the care management team. RAIZA: today PATIENT HAS BEEN ACCEPTED AT SNF: [facility] [address] [place] [address] Spoke with Andrea at facility and patient has been accepted. Bedside RN to call report and fax orders to numbers listed above. Oneil aware of plans PASRR: No level II required Authorization: obtained by [facility] Nina * Plan of Care - Pete Tesfaye. - 05/03/2024 10:32 AM CDT Problem: Activity Goal: Capacity to carry out activities will improve 05/03/2024 1032 by Pete Tesfaye. Outcome: Progressing 05/03/2024 1020 by Pete Tesfaye. Outcome: Progressing Goal: Mobility will improve 05/03/2024 1032 by Pete Tesfaye. Outcome: Progressing 05/03/2024 1020 by Pete Tesfaye. Outcome: Progressing Problem: Activity Goal: Capacity to carry out activities will improve 05/03/2024 1032 by Pete Tesfaye. Outcome: Progressing 05/03/2024 1020 by Pete Tesfaye. Outcome: Progressing Problem: Activity Goal: Mobility will improve 05/03/2024 1032 by Pete Tesfaye. Outcome: Progressing 05/03/2024 1020 by Pete Tesfaye. Outcome: Progressing Problem: Coping Goal: Ability to verbalize positive feelings about self will improve 05/03/2024 1032 by Pete Tesfaye. Outcome: Progressing 05/03/2024 1020 by Pete Tesfaye. Outcome: Progressing Problem: Nutritional Goal: Ability to chew and swallow food without choking will improve 05/03/2024 1032 by Pete Tesfaye. Outcome: Progressing 05/03/2024 1020 by Pete Tesfaye. Outcome: Progressing Goal: Dietary intake will improve 05/03/2024 1032 by Pete Tesfaye. Outcome: Progressing 05/03/2024 1020 by Pete Tesfaye. Outcome: Progressing Problem: Nutritional Goal: Ability to chew and swallow food without choking will improve 05/03/2024 1032 by Pete Tesfaye. Outcome: Progressing 05/03/2024 1020 by Pete Tesfaye. Outcome: Progressing Problem: Nutritional Goal: Dietary intake will improve 05/03/2024 1032 by Pete Tesfaye. Outcome: Progressing 05/03/2024 1020 by Pete Tesfaye. Outcome: Progressing Problem: Physical Regulation Goal: Ability to maintain clinical measurements within normal limits will improve 05/03/2024 1032 by Pete Tesfaye. Outcome: Progressing 05/03/2024 1020 by Pete Tesfaye. Outcome: Progressing Problem: Physical Regulation Goal: Ability to maintain clinical measurements within normal limits will improve 05/03/2024 1032 by Pete Tesfaye. Outcome: Progressing 05/03/2024 1020 by Pete Tesfaye. Outcome: Progressing Problem: Respiratory Goal: Ability to state ways to decrease risk of aspiration will improve 05/03/2024 1032 by Pete Tesfaye. Outcome: Progressing 05/03/2024 1020 by Pete Tesfaye. Outcome: Progressing Problem: Respiratory Goal: Ability to state ways to decrease risk of aspiration will improve 05/03/2024 1032 by Pete Tesfaye. Outcome: Progressing 05/03/2024 1020 by Pete Tesfaye. Outcome: Progressing Problem: Skin Integrity Goal: Risk for impaired skin integrity will decrease 05/03/2024 1032 by Pete Tesfaye. Outcome: Progressing 05/03/2024 1020 by Pete Tesfaye. Outcome: Progressing Problem: Skin Integrity Goal: Risk for impaired skin integrity will decrease 05/03/2024 1032 by Pete Tesfaye. Outcome: Progressing 05/03/2024 1020 by Pete Tesfaye. Outcome: Progressing Problem: Tissue Perfusion Goal: Cerebral tissue perfusion will improve 05/03/2024 1032 by Pete Tesfaye. Outcome: Progressing 05/03/2024 1020 by Pete Tesfaye. Outcome: Progressing Goal: Neurologic status will improve 05/03/2024 1032 by Pete Tesfaye. Outcome: Progressing 05/03/2024 1020 by Pete Tesfaye. Outcome: Progressing Problem: Tissue Perfusion Goal: Cerebral tissue perfusion will improve 05/03/2024 1032 by Pete Tesfaye. Outcome: Progressing 05/03/2024 1020 by Pete Tesfaye. Outcome: Progressing Problem: Tissue Perfusion Goal: Neurologic status will improve 05/03/2024 1032 by Pete Tesfaye. Outcome: Progressing 05/03/2024 1020 by Pete Tesfaye. Outcome: Progressing Problem: Swallowing Goal: Patient's ability to maintain safety and efficiency of swallowing without signs of aspirationwill improve 05/03/2024 1032 by Pete Tesfaye. Outcome: Progressing 05/03/2024 1020 by Pete Tesfaye. Outcome: Progressing Problem: Swallowing Goal: Patient's ability to maintain safety and efficiency of swallowing without signs of aspirationwill improve 05/03/2024 1032 by Pete Tesfaye. Outcome: Progressing 05/03/2024 1020 by Pete Tesfaye. Outcome: Progressing Problem: Bladder/Voiding Goal: Patient will demonstrate the ability to take care of indwelling catheter 05/03/2024 1032 by Pete Tesfaye. Outcome: Progressing 05/03/2024 1020 by Pete Tesfaye. Outcome: Progressing Problem: Bladder/Voiding Goal: Patient will demonstrate the ability to take care of indwelling catheter 05/03/2024 1032 by Pete Tesfaye. Outcome: Progressing 05/03/2024 1020 by Pete Tesfaye. Outcome: Progressing Problem: Cognitive Goal: Patient will achieve stable or improved cognitive status 05/03/2024 1032 by Pete Tesfaye. Outcome: Progressing 05/03/2024 1020 by Pete Tesfaye. Outcome: Progressing Problem: Cognitive Goal: Patient will achieve stable or improved cognitive status 05/03/2024 1032 by Pete Tesfaye. Outcome: Progressing 05/03/2024 1020 by Pete Tesfaye. Outcome: Progressing Problem: Safety Goal: Patient will demonstrate safety requirements appropriate to situation/environment 05/03/2024 1032 by Pete Tesfaye. Outcome: Progressing 05/03/2024 1020 by Pete Tesfaye. Outcome: Progressing Problem: Safety Goal: Patient will demonstrate safety requirements appropriate to situation/environment 05/03/2024 1032 by Pete Tesfaye. Outcome: Progressing 05/03/2024 1020 by Pete Tesfaye. Outcome: Progressing Problem: Infection Goal: Patient will have absence of infection during hospitalization 05/03/2024 1032 by Pete Tesfaye. Outcome: Progressing 05/03/2024 1020 by Pete Tesfaye. Outcome: Progressing Problem: Infection Goal: Patient will have absence of infection during hospitalization 05/03/2024 1032 by Pete Tesfaye. Outcome: Progressing 05/03/2024 1020 by Pete Tesfaye. Outcome: Progressing Problem: Fall Risk Goal: Patient will remain free from falls 05/03/2024 1032 by Pete Tesfaye. Outcome: Progressing 05/03/2024 1020 by Pete Tesfaye. Outcome: Progressing Goal: Patient's ability to state ways to decrease the risk of falls will improve 05/03/2024 1032 by Pete Tesfaye. Outcome: Progressing 05/03/2024 1020 by Pete Tesfaye. Outcome: Progressing Goal: Patient will remain free from injury from falls 05/03/2024 1032 by Pete Tesfaye. Outcome: Progressing 05/03/2024 1020 by Pete Tesfaye. Outcome: Progressing Problem: Fall Risk Goal: Patient will remain free from falls 05/03/2024 1032 by Pete Tesfaye. Outcome: Progressing 05/03/2024 1020 by Pete Tesfaye. Outcome: Progressing Problem: Fall Risk Goal: Patient's ability to state ways to decrease the risk of falls will improve 05/03/2024 1032 by Pete Tesfaye. Outcome: Progressing 05/03/2024 1020 by Pete Tesfaye. Outcome: Progressing Problem: Fall Risk Goal: Patient will remain free from injury from falls 05/03/2024 1032 by Pete Tesfaye. Outcome: Progressing 05/03/2024 1020 by Peet Tesfaye. Outcome: Progressing Problem: Lack of Knowledge Goal: Ability to develop a pain control plan will improve 05/03/2024 1032 by Pete Tesfaye. Outcome: Progressing 05/03/2024 1020 by Pete Tesfaye. Outcome: Progressing Problem: Lack of Knowledge Goal: Ability to develop a pain control plan will improve 05/03/2024 1032 by Pete Tesfaye. Outcome: Progressing 05/03/2024 1020 by Pete Tesfaye. Outcome: Progressing Problem: Medication Goal: Satisfaction with pain management medication regimen will improve 05/03/2024 1032 by Pete Tesfaye. Outcome: Progressing 05/03/2024 1020 by Pete Tesfaye. Outcome: Progressing Problem: Medication Goal: Satisfaction with pain management medication regimen will improve 05/03/2024 1032 by Pete Tesfaye. Outcome: Progressing 05/03/2024 1020 by Pete Tesfaye. Outcome: Progressing Problem: Sensory Goal: Ability to identify factors that increase pain levels will improve while working to decrease the patient's pain levels 05/03/2024 1032 by Pete Tesfaye. Outcome: Progressing 05/03/2024 1020 by Pete Tesfaye. Outcome: Progressing Problem: Sensory Goal: Ability to identify factors that increase pain levels will improve while working to decrease the patient's pain levels 05/03/2024 1032 by Pete Tesfaye. Outcome: Progressing 05/03/2024 1020 by Pete Tesfaye. Outcome: Progressing Problem: Coping Goal: Ability to cope will improve 05/03/2024 1032 by Pete Tesfaye. Outcome: Progressing 05/03/2024 1020 by Pete Tesfaye. Outcome: Progressing Problem: Coping Goal: Ability to cope will improve 05/03/2024 1032 by Pete Tesfaye. Outcome: Progressing 05/03/2024 1020 by Pete Tesfaye. Outcome: Progressing Problem: Health Behavior Goal: Identification of resources available to assist in meeting health care needs will improve 05/03/2024 1032 by Pete Tesfaye. Outcome: Progressing 05/03/2024 1020 by Pete Tesfaye. Outcome: Progressing Problem: Health Behavior Goal: Identification of resources available to assist in meeting health care needs will improve 05/03/2024 1032 by Pete Tesfaye. Outcome: Progressing 05/03/2024 1020 by Pete Tesfaye. Outcome: Progressing Problem: Cardiovascular Goal: Maintains optimal cardiac output and hemodynamic stability 05/03/2024 1032 by Pete Tesfaye. Outcome: Progressing 05/03/2024 1020 by Pete Tesfaye. Outcome: Progressing Goal: Absence of cardiac dysrhythmias or at baseline 05/03/2024 1032 by Pete Tesfaye Outcome: Progressing 05/03/2024 1020 by Pete Tesfaye Outcome: Progressing Problem: Cardiovascular Goal: Maintains optimal cardiac output and hemodynamic stability 05/03/2024 1032 by Pete Tesfaye. Outcome: Progressing 05/03/2024 1020 by Pete Tesfaye Outcome: Progressing Problem: Cardiovascular Goal: Absence of cardiac dysrhythmias or at baseline 05/03/2024 1032 by Pete Tesfaye. Outcome: Progressing 05/03/2024 1020 by Pete Tesfaye Outcome: Progressing * Plan of Care - Pete Tesfaye. - 05/03/2024 10:21 AM CDT Problem: Activity Goal: Capacity to carry out activities will improve Outcome: Progressing Goal: Mobility will improve Outcome: Progressing Problem: Activity Goal: Capacity to carry out activities will improve Outcome: Progressing Problem: Activity Goal: Mobility will improve Outcome: Progressing Problem: Coping Goal: Ability to verbalize positive feelings about self will improve Outcome: Progressing Problem: Coping Goal: Ability to verbalize positive feelings about self will improve Outcome: Progressing Problem: Nutritional Goal: Ability to chew and swallow food without choking will improve Outcome: Progressing Goal: Dietary intake will improve Outcome: Progressing Problem: Nutritional Goal: Ability to chew and swallow food without choking will improve Outcome: Progressing Problem: Nutritional Goal: Dietary intake will improve Outcome: Progressing Problem: Physical Regulation Goal: Ability to maintain clinical measurements within normal limits will improve Outcome: Progressing Problem: Physical Regulation Goal: Ability to maintain clinical measurements within normal limits will improve Outcome: Progressing Problem: Respiratory Goal: Ability to state ways to decrease risk of aspiration will improve Outcome: Progressing Problem: Respiratory Goal: Ability to state ways to decrease risk of aspiration will improve Outcome: Progressing Problem: Skin Integrity Goal: Risk for impaired skin integrity will decrease Outcome: Progressing Problem: Skin Integrity Goal: Risk for impaired skin integrity will decrease Outcome: Progressing Problem: Tissue Perfusion Goal: Cerebral tissue perfusion will improve Outcome: Progressing Goal: Neurologic status will improve Outcome: Progressing Problem: Tissue Perfusion Goal: Cerebral tissue perfusion will improve Outcome: Progressing Problem: Tissue Perfusion Goal: Neurologic status will improve Outcome: Progressing Problem: Swallowing Goal: Patient's ability to maintain safety and efficiency of swallowing without signs of aspirationwill improve Outcome: Progressing Problem: Swallowing Goal: Patient's ability to maintain safety and efficiency of swallowing without signs of aspirationwill improve Outcome: Progressing Problem: Bladder/Voiding Goal: Patient will demonstrate the ability to take care of indwelling catheter Outcome: Progressing Problem: Bladder/Voiding Goal: Patient will demonstrate the ability to take care of indwelling catheter Outcome: Progressing Problem: Cognitive Goal: Patient will achieve stable or improved cognitive status Outcome: Progressing Problem: Cognitive Goal: Patient will achieve stable or improved cognitive status Outcome: Progressing Problem: Safety Goal: Patient will demonstrate safety requirements appropriate to situation/environment Outcome: Progressing Problem: Safety Goal: Patient will demonstrate safety requirements appropriate to situation/environment Outcome: Progressing Problem: Infection Goal: Patient will have absence of infection during hospitalization Outcome: Progressing Problem: Infection Goal: Patient will have absence of infection during hospitalization Outcome: Progressing Problem: Fall Risk Goal: Patient will remain free from falls Outcome: Progressing Goal: Patient's ability to state ways to decrease the risk of falls will improve Outcome: Progressing Goal: Patient will remain free from injury from falls Outcome: Progressing Problem: Fall Risk Goal: Patient will remain free from falls Outcome: Progressing Problem: Fall Risk Goal: Patient's ability to state ways to decrease the risk of falls will improve Outcome: Progressing Problem: Fall Risk Goal: Patient will remain free from injury from falls Outcome: Progressing Problem: Lack of Knowledge Goal: Ability to develop a pain control plan will improve Outcome: Progressing Problem: Lack of Knowledge Goal: Ability to develop a pain control plan will improve Outcome: Progressing Problem: Medication Goal: Satisfaction with pain management medication regimen will improve Outcome: Progressing Problem: Medication Goal: Satisfaction with pain management medication regimen will improve Outcome: Progressing Problem: Sensory Goal: Ability to identify factors that increase pain levels will improve while working to decrease the patient's pain levels Outcome: Progressing Problem: Sensory Goal: Ability to identify factors that increase pain levels will improve while working to decrease the patient's pain levels Outcome: Progressing Problem: Coping Goal: Ability to cope will improve Outcome: Progressing Problem: Coping Goal: Ability to cope will improve Outcome: Progressing Problem: Health Behavior Goal: Identification of resources available to assist in meeting health care needs will improve Outcome: Progressing Problem: Health Behavior Goal: Identification of resources available to assist in meeting health care needs will improve Outcome: Progressing Problem: Cardiovascular Goal: Maintains optimal cardiac output and hemodynamic stability Outcome: Progressing Goal: Absence of cardiac dysrhythmias or at baseline Outcome: Progressing Problem: Cardiovascular Goal: Maintains optimal cardiac output and hemodynamic stability Outcome: Progressing Problem: Cardiovascular Goal: Absence of cardiac dysrhythmias or at baseline Outcome: Progressing Problem: Genitourinary Goal: Absence of urinary retention Outcome: Progressing Goal: Urinary catheter remains patent Outcome: Progressing Problem: Genitourinary Goal: Absence of urinary retention Outcome: Progressing Problem: Genitourinary Goal: Urinary catheter remains patent Outcome: Progressing * Plan of Care - Jossy Gonzalez - 05/03/2024 12:20 AM CDT Goals: Clinical Goals for the Shift: Pt safety, stable v/s, monitor for s/sx of strokes, blood sugar checking rest & comfort. [facility] Goal for Treatment: Rehad placement Summary: Pt resting on bed, A&O X2, denies pain & discomfort, on tele, refused SCD. V/S & blood sugar monitored. Due meds given, atarax given 1x. kept monitored. Problem: Activity Goal: Capacity to carry out activities will improve Outcome: Ongoing Goal: Mobility will improve Outcome: Ongoing Problem: Coping Goal: Ability to verbalize positive feelings about self will improve Outcome: Ongoing Problem: Nutritional Goal: Ability to chew and swallow food without choking will improve Outcome: Ongoing Goal: Dietary intake will improve Outcome: Ongoing Problem: Physical Regulation Goal: Ability to maintain clinical measurements within normal limits will improve Outcome: Ongoing Problem: Respiratory Goal: Ability to state ways to decrease risk of aspiration will improve Outcome: Ongoing Problem: Skin Integrity Goal: Risk for impaired skin integrity will decrease Outcome: Ongoing Problem: Tissue Perfusion Goal: Cerebral tissue perfusion will improve Outcome: Ongoing Goal: Neurologic status will improve Outcome: Ongoing Problem: Swallowing Goal: Patient's ability to maintain safety and efficiency of swallowing without signs of aspirationwill improve Outcome: Ongoing Problem: Safety Goal: Patient will demonstrate safety requirements appropriate to situation/environment Outcome: Ongoing Problem: Infection Goal: Patient will have absence of infection during hospitalization Outcome: Ongoing Problem: Fall Risk Goal: Patient will remain free from falls Outcome: Ongoing Goal: Patient's ability to state ways to decrease the risk of falls will improve Outcome: Ongoing Goal: Patient will remain free from injury from falls Outcome: Ongoing Problem: Lack of Knowledge Goal: Ability to develop a pain control plan will improve Outcome: Ongoing Flowsheets (Taken 05/02/20241904) Ability to develop a pain control plan will improve: Explain causes of pain and how long pain can be expected to last Educate pain scale for assessing level of pain Problem: Medication Goal: Satisfaction with pain management medication regimen will improve Outcome: Ongoing Flowsheets (Taken 05/02/20241904) Satisfaction with pain management medication regimen will improve: Assess satisfaction with pain management regimen Evaluate medication effects Problem: Sensory Goal: Ability to identify factors that increase pain levels will improve while working to decrease the patient's pain levels Outcome: Ongoing Flowsheets (Taken 05/02/20241904) Ability to identify factors that increase pain levels will improve while working to decrease patients pain levels: Assess pain status Observe non-verbal cues of discomfort, such as restlessness, muscle tension, or altered vital signs Assess effects of pain control measures Problem: Coping Goal: Ability to cope will improve Outcome: Ongoing Flowsheets (Taken 05/02/20241904) Ability to cope will Improve: Encourage vebalization of feelings surrounding pain Provide emotional support Problem: Health Behavior Goal: Identification of resources available to assist in meeting health care needs will improve Outcome: Ongoing Flowsheets (Taken 05/02/20241904) Identification of resources available to assist in meeting health care needs will improve: Collaborate with pain management Problem: Cardiovascular Goal: Maintains optimal cardiac output and hemodynamic stability Outcome: Ongoing Flowsheets (Taken 05/02/20241904) Maintain optimal cardiac output and hemodynamic Stability: Monitor vital signs, rhythm, and trends Assess quality of pulses, skin color and temperature Goal: Absence of cardiac dysrhythmias or at baseline Outcome: Ongoing Flowsheets (Taken 05/02/20241904) Absence of cardiac dysrhythmias or at baseline: Continuous cardiac monitoring, monitor vital signs,obtain 12 lead EKG if indicated Problem: Musculoskeletal Goal: Return mobility to safest level of function Outcome: Ongoing Flowsheets (Taken 05/02/20241904) Return mobility to safest level of function: Assess patient stability and activity tolerance for standing, transferring and ambulating with or without assistive devices Obtain PT/OT consults as needed Goal: Return ADL status to a safe level of function Outcome: Ongoing Flowsheets (Taken 05/02/2024 190) Return activities of daily living status to a safe level of function: Assess patient's activities of daily living deficits and provide assistive devices as needed Obtain PT/OT consults as needed Goal: Ability to perform activities at highest level will improve Outcome: Ongoing Goal: Mobility, ROM and muscle strength will improve Outcome: Ongoing Problem: Skin Integrity Impairment Risk Goal: Mobility will improve Outcome: Ongoing Flowsheets (Taken 05/02/2024 190) Mobility will improve: Encourage mobilization to extent of ability, assist with range of motion as needed Encourage turning and repositioning, assist as needed Encourage ambulation Assess circulation, sensation and/or motion of extremity Collaborate with physical therapy Goal: Understanding of ways to prevent future skin breakdown will improve Outcome: Ongoing Flowsheets (Taken 05/02/20241904) Understanding of ways to prevent future skin breakdown will improve: Discuss treatments to protect skin integrity Goal: Nutritional status will improve Outcome: Ongoing Flowsheets (Taken 05/02/20241904) Nutritional status will improve: Assess nutritional status Encourage nutritional intake Goal: Risk for impaired skin integrity will decrease Outcome: Ongoing Flowsheets (Taken 05/02/2024 190) Risk for impaired skin integrity will decrease: Identify risk factors for impaired skin integrity and/or pressure injuries Monitor skin integrity, appearance and temperature * Plan of Care - Ning Gordon RN - 05/02/2024 3:39 PM CDT CASE MANAGEMENT FOLLOWING: Current RAIZA: 1-2 days, after [employer] auth for [facility] 05/02/24 1538 Discharge Summary Discharge Disposition jail facility (short term care) Discharge Records Transfer Form Completed Recommended Discharge Level of Care jail facility (short term care) Actual Discharge Level of Care jail facility (short term care) Does Actual Level of Care Match Care Team Recommendation? Yes Post Acute Care Plan Post Acute Care Facility Yes Referral Status Started ([facility] starting [employer] auth) Discharge Additional Assistance Does the patient need discharge transport arranged? No ( will transport) * [facility] Note - Ning Gordon RN - 05/02/2024 9:15 AM CDT Images from the original note were not included. Patient Information: OT Eval and Treat Last 72 Hours OT Evaluation No documentation. OT Treatment Row Name 04/29/24 1018 04/28/24 0936 04/27/24 0923 04/26/24 0946 Session Type Treatment -KK Treatment -KK Treatment -KK Treatment -KK OT Received On -- 04/28/24 -KK 04/27/24 -KK 04/26/24 -KK Safe Environment -- Arm band checked;Patient found in supine;Gait belt utilized for all out of bed mobility -KK Arm band checked;Patient found in supine;Gait belt utilized for all out of bed mobility-KK Arm band checked;Patient found in supine;Gait belt utilized for all out of bed mobility -KK Subjective -- Agreeable to Therapy -KK Agreeable to Therapy -KK Agreeable to Therapy -KK Subjective Comment -- I am ok -KK Hello -KK I am not hungry -KK OT Missed Visit Reason Family declined Pt sound asleep. Pt will inconsistently respod to therapistsbut did not open eyes. Per spouse, requesting therapy just let her sleep at this time. -KK -- -- -- Family/Caregiver Present -- Yes Spouse -KK Yes Spouse -KK -- Pain Assessment -- No/denies pain -KK No/denies pain -KK No/denies pain -KK Static Sitting-Balance Support -- Bilateral upper extremity supported;Feet supported -KK Bilateral upper extremity supported -KK Bilateral upper extremity supported;Feet supported -KK Static Sitting-Sitting Surface -- Bed -KK Bed -KK Bed -KK Static Sitting-Level of Assistance -- Contact guard;Minimum assistance -KK Minimum assistance -KK Contact guard;Minimum assistance -KK Static Sitting-Comment/# of Minutes -- Pt required cueing on leaning to R side due to increased lean towards L. -KK Pt required cueing to lean to R due to pt leaning to L -KK Pt able to sit EOB x3 min -KK Static Standing-Balance Support -- Bilateral upper extremity supported -KK Bilateral upper extremity supported -KK -- Static Standing-Standing Surface -- Floor -KK Floor -KK -- Static Standing-Level of Assistance -- -- MOD assist x2 -KK -- MOD assist x2 -KK -- Static Standing-Comment/# of Minutes -- Pt able to perform static standing x3 trials -KK Pt able tostand approx 15 seconds -KK -- ADL Comments -- -- Pt able to wash her face with SBA and MOD cueing to wash all parts of her face. -KK Pt required MAX assist for pericare as well as adult diaper mgmt. MAX assist to don socks. -KK Bed Mobility From 1 -- Supine -KK Rolling right -KK Rolling right -KK Bed Mobility Type 1 -- To -KK To and from -KK To and from -KK Bed Mobility to 1 -- Edge of bed -KK Rolling left -KK Rolling left -KK Level of Assistance 1 -- -- DEP x2 -KK Maximum Assist -KK -- DEP x2 -KK Bed Mobility From 2 -- -- Supine -KK Supine -KK Bed Mobility Type 2 -- -- To -KK To -KK Bed Mobility to 2 -- -- Edge of Bed -KK Edge of Bed -KK Level of Assistance 2 -- -- -- DEP x2 -KK -- DEP x2 -KK Transfer From 1 -- Sit -KK Sit -KK Sit -KK Transfer Type 1 -- To and from -KK To and from -KK To and from -KK Transfer to 1 -- Stand -KK Stand -KK Stand -KK Transfer Device 1 -- Wheeled walker -KK No device;Hand held assist -KK No device;Hand held assist -KK Transfer Level of Assistance 1 -- -- MOD assist x2 -KK -- MOD assist x2 -KK -- MAX assist x2 -KK Trials/Comments 1 -- Pt able to perform sit<>stand x3 trials. 1 trial we attempted to stand with WW but pt unable to advance feet to take steps -KK -- -- Transfer From 2 -- Bed -KK Bed -KK Bed -KK Transfer Type 2 -- To -KK To -KK To -KK Transfer to 2 -- Chair with arms -KK Chair with arms -KK Chair with arms -KK Technique 2 -- -- Stand pivot -KK Stand pivot -KK Transfer Device 2 -- No device;Hand held assist -KK No device;Hand held assist - KK No device;Hand held assist -KK Transfer Level of Assistance 2 -- -- MAX assist x2 -KK -- MAX assist x2 -KK -- MAX assist x2 -KK Trials/Comments 2 -- Pt able to bear weight through LEs and shuffle feet during transfer -KK -- Pt able to bear weight through LEs but unable to advance feet -KK Other Exercise -- PROM, LUE, in all planes and joints of movement. Pt able to initiate movement in LUE this session but was unable to perform full ROM without assist -KK PROM, LUE, in all planes and joints of movement. -KK PROM, LUE, in all planes and joints of movement. -KK Cognition Comments -- Pt stated [place] when asked were she was and was unable to state what year it was -KK -- Pt unable to answer any orientation ?s this session. Pt shows poor command follow with all tasks -KK Overall Cognitive Status -- Impaired -KK -- Impaired -KK Arousal/Alertness -- Delayed responses to stimuli -KK -- Alert -KK Attention Span -- Attends with cues to redirect;Difficulty attending to directions -KK -- Attends with cues to redirect;Difficulty attending to directions -KK Memory -- Decreased short term memory;Decreased recall of recent events;Decreased recall of biographical information -KK -- Decreased short term memory;Decreased recall of recent events;Decreased recall of biographical information -KK Current communication -- Impaired - Global Aphasia -KK -- Impaired - Global Aphasia -KK Orientation -- Oriented to person -KK -- Oriented to person -KK Following Commands -- Follows one step commands with repetition -KK -- Unable to follow commands -KK Safety Judgment -- Unable to assess -KK -- Unable to assess -KK Awareness of Errors -- -- -- Unable to assess -KK Endurance -- Tolerates 10 - 20 min activity with multiple rests -KK Tolerates 10 - 20 min activity with multiple rests -KK Tolerates 10 - 20 min activity with multiple rests -KK Comments -- Pt continues to require much cueing both verabal and tactile when scanning to locate items on L side of room -KK Had pt scan room for various things focusing on items to her L. Pt required verbal and visual cueing on looking to far left as well as bringing eyes to far left. Had pt perform dynamic reaching tasks while sitting up in chair using RUE. Pt able to perform task with MIN cueing for direction follow and cueing to reach L of midline. -KK -- Safe Environment End of Therapy Session -- Patient left in recliner;Chair alarm in place and activated;RN notified;Overbed table within reach;Call light within reach Spouse at bedside -KK Patient left in recliner;Chair alarm in place and activated;RN notified;Call light within reach;Overbed table within reach Spouse at bedside -KK Patient left in recliner;Chair alarm in place and activated;RN notified;Call light within reach;Overbed table within reach -KK Prognosis -- Fair -KK Fair -KK Fair -KK Plan Continue with current plan -KK Continue with current plan -KK Continue with current plan -KK Continue with current plan -KK OT Recommendation -- Custodial Facility -KK Custodial Facility -KK Custodial Facility -KK Patient at high risk for -- Falls;Readmission;Injury due to decreased ability to care for self;Injury due to reduced functional status;Injury due to balance deficits;Injury due to impaired cognition;Injury at home as patient has not returned to prior level of function -KK Falls;Readmission;Injury due to decreased ability to care for self;Injury due to reduced functional status;Injury at home as patient has not returned to prior level of function;Injury due to impaired cognition;Injury due to balance deficits -KK Falls;Readmission;Injury due to decreased ability to care for self;Injury due to reduced functional status;Injury due to balance deficits;Injury at home as patient has not returnedto prior level of function;Injury due to impaired cognition -KK Recommend SNF due to -- Risk of injury at home;Unable to safely care for self in the home;Skilled therapy needed to address care for self in the home;Skilled therapy needed to address functional deficits;Skilled therapy needed for patient to return to prior level of independence -KK Risk of injury at home;Unable to safely care for self in the home;Skilled therapy needed to address care for self in the home;Skilled therapy needed to address functional deficits;Skilled therapy needed for patient to return to prior level of independence -KK Risk of injury at home;Unable to safely care for self in the home;Skilled therapy needed to address care for self in the home;Skilled therapy needed to address functional deficits;Skilled therapy needed for patient to return to prior level of independence -KK Progress during current admission -- Slow progress, cognitive deficits -KK Slow progress, cognitivedeficits -KK Slow progress, cognitive deficits -KK Start Time -- 0935 -KK 0922 -KK 0945 -KK Stop Time -- 1003 -KK 0946 -KK 1008 -KK Time Calculation (min) -- 28 min -KK 24 min -KK 23 min -KK Reason for interruption -- Co Tx with Melissa Dobbins, NANOTECHNICIAN -KK Co Tx with Melissa Dobbins, NANOTECHNICIAN -KK Co Tx withMelissa Dobbins, NANOTECHNICIAN -KK User Fish (r) = Recorded By, (t) = Taken By, (c) = Cosigned By Initials Name Effective Dates KK Annika Ruggiero, HOOD 07/10/21 - OT Notes Notes from 04/30/24 through 05/02/24 No notes of this type exist for this encounter. , PT Eval and Treat Last 72 Hours PT Evaluation No documentation. PT TREATMENT (Last 168 Hours) PT Treatment Row Name 05/01/24 0850 04/29/24 1401 04/29/24 1019 04/28/24 0935 04/27/24 0922 PT Last Visit Session Type Treatment -KA -- -- Treatment -AG Treatment -AG Safe Environment Arm band checked;Patient found in supine -KA -- -- Arm band checked;Patient found in supine;Session completed bedside;Gait belt utilized for all out of bed mobility -AG Arm band checked;Patient found in supine;Session completed bedside;Gait belt utilized for all out of bed mobility-AG Subjective Agreeable to Therapy -KA -- -- Agreeable to Therapy -AG Agreeable to Therapy -AG PT Missed Visit Reason -- Asleep Pt was sleeping called RN and she stated that pt has been very sleepy today. Let rest and check over the weekend. -AG Family declined Pt was not waking, in room. stated to let her rest that they were waiting on placement Will check in the afternoon. -AG -- -- Family/Caregiver Present No -KA -- -- Yes -AG Yes -AG Precautions Precautions Bed/Chair Alarm -KA -- -- Bed/Chair Alarm;Fall risk -AG Bed/Chair Alarm;Fall risk -AG Activity Tolerance Endurance Tolerates 10 - 20 min activity with multiple rests -KA -- -- -- -- Pain Assessment Pain Assessment 0-10 -KA -- -- No/denies pain -AG No/denies pain -AG DickinsonSatnamReyna FACES Pain Rating 4 -KA -- -- -- -- Pain 2 Pain Score 2 4 -KA -- -- -- -- Pain Type 2 Chronic pain -KA -- -- -- -- Pain Location 2 Back (Lumbar) -KA -- -- -- -- Pain Orientation 2 Lower -KA -- -- -- -- Clinical Progression 2 Not changed -KA -- -- -- -- Cognition Arousal/Alertness -- -- -- Alert -AG Alert -AG Current communication -- -- -- -- Impaired - Global Aphasia -AG Orientation -- -- -- Oriented to person -AG Oriented to person -AG Seated Seated-Exercises -- -- -- Lower extremity -AG Lower extremity -AG Reps/Sets -- -- -- 10 -AG 10 -AG Seated-Motion -- -- -- AROM;AAROM -AG AROM;AAROM;PROM -AG Seated-Exercise Comments -- -- -- L was PROM, R was A,AA to PROM -AG L was PROM, R was A,AA to PROM-AG Bed Mobility 1 Bed Mobility From 1 Supine -KA -- -- Rolling right -AG Rolling right -AG Bed Mobility Type 1 To -KA -- -- To and from -AG To and from -AG Bed Mobility to 1 Edge of bed -KA -- -- Rolling left -AG Rolling left -AG Level of Assistance 1 -- -- -- Maximum Assist;Minimal verbal cues +2 -AG Maximum Assist;Minimal verbal cues -AG Bed Mobility 2 Bed Mobility From 2 Supine -KA -- -- Supine -AG Supine -AG Bed Mobility Type 2 To -KA -- -- To -AG To -AG Bed Mobility to 2 Edge of Bed -KA -- -- Edge of Bed -AG Edge of Bed -AG Level of Assistance 2 Dependent -KA -- -- Dependent +2 -AG Dependent;Minimal verbal cues +2 -AG Bed Mobility Comments 2 -- -- -- Pt was dependent to get to the EOB but once there was sit up better then she had. Not leaning to the left and back as much. Needed sba to cga for balance. Pt used rail to hold with Rue off and on. -AG -- Transfer 1 Transfer From 1 Sit -KA -- -- Sit -AG Sit -AG Transfer Type 1 To and from -KA -- -- To and from -AG To and from -AG Transfer to 1 Stand -KA -- -- Stand -AG Stand -AG Technique 1 Sit to stand;Stand to sit -KA -- -- -- -- Transfer Device 1 No device -KA -- -- Wheeled walker -AG No device;Hand held assist -AG Transfer Level of Assistance 1 -- -- -- Moderate Assist;Minimal verbal cues +2 - AG Moderate verbal cues;Moderate Assist +2 -AG Trials/Comments 1 arm assist +2 with transfer -KA -- -- Pt stood once with RW but was not able to move feet. Pt sat then stood again with stablehand max+2 attempted to take steps but was not able to take but one step with the L and was not able to control where to put it. Pt started to c/o of it hurting and sat back on the bed. -AG -- Transfers 2 Transfer From 2 -- -- -- Bed -AG Bed -AG Transfer Type 2 -- -- -- To -AG To -AG Transfer to 2 -- -- -- Chair with arms -AG Chair with arms -AG Technique 2 -- -- -- Stand pivot -AG Stand pivot -AG Transfer Device 2 -- -- -- No device;Hand held assist -AG No device;Hand held assist -AG Transfer Level of Assistance 2 -- -- -- Maximum Assist -AG Maximum Assist;Moderate verbal cues +2 -AG Trials/Comments 2 -- -- -- Pt stood a thrid time and shuffled a little but then pivoted to the chair. Alarm in chair. -AG Pt sat EOB with sba to min assist for balance. Pt held onto the rails and would breifly let go and still keep balance for a few seconds before leaning to the L and back. Pt stood and attempted to take a step but was not able. Pt then sat to rest and then stood again and pivoted to the chair. Pt performed ex's in chair needed vc's and tactile cues. Alarm on and waffle cushionin chair. -AG Ambulation 1 Distance (ft) 1 2 -KA -- -- -- -- Surface 1 Level tile -KA -- -- -- -- Device 1 Hand held assist -KA -- -- -- -- Assistance 1 Minimum Assist -KA -- -- -- -- Gait Deviations 1 Base of support - decreased -KA -- -- -- -- Quality of Gait 1 fair -KA -- -- -- -- Ambulation Comments 1 patient takes a few steps from bed to chair with verbal cues for directions -KA -- -- -- -- Safe Environment End of Therapy Session Safe Environment End of Therapy Session Patient left in recliner;Chair alarm in place and activated;Call light within reach;Overbed table within reach -KA -- -- Patient left in recliner;Chair alarm in place and activated;Call light within reach;Overbed table within reach -AG Patient left in recliner;Chair alarm in place and activated;Call light within reach;Overbed table within reach -AG Plan Plan Continue with current plan -KA -- -- Continue with current plan -AG Continue with current plan-AG Recommendation/Plan PT Recommendation/Plan Custodial Facility -KA -- -- Custodial Facility -AG Custodial Facility T [place] ok'd the change to snf -AG Patient at high risk for Falls;Readmission;Injury due to decreased ability to care for self -KA -- -- Falls;Readmission;Injury due to decreased ability to care for self -AG Falls;Readmission;Injury due to decreased ability to care for self -AG Recommend Inpatient Rehab/Acute Rehab due to Ability to actively participate in intensive therapy 3hours/day, 5 days/week or 900 minutes per week;Not at baseline due to impaired ability to complete ADLs;Impaired ability to complete functional mobility;Requires greater than 25% physical assistance with most mobility tasks;Requires greater than 25% physical assistance with most ADL tasks -KA -- ---- -- Recommend SNF due to -- -- -- Risk of injury at home;Unable to safely care for self in the home;Skilled therapy needed to address care for self in the home;Skilled therapy needed to address functional deficits;Skilled therapy needed for patient to return to prior level of independence -AG Risk of injury at home;Skilled therapy needed to address care for self in the home;Unable to safely care for self in the home;Skilled therapy needed to address functional deficits;Skilled therapy needed for patient to return to prior level of independence -AG Time Calculation Start Time 0850 -KA -- -- 934 -AG 921 -AG Stop Time 899 -KA -- -- 3 -AG 0946 -AG Time Calculation (min) 10 min -KA -- -- 28 min -AG 24 min -AG Row Name 04/26/24 0945 PT Last Visit Session Type Treatment -AG Safe Environment Arm band checked;Patient found in supine;Session completed bedside;Gait belt utilized for all out of bed mobility -AG Subjective Agreeable to Therapy -AG Family/Caregiver Present Yes -AG Precautions Precautions Bed/Chair Alarm;Fall risk -AG Pain Assessment Pain Assessment No/denies pain -AG Cognition Arousal/Alertness Alert -AG Orientation Oriented to person -AG Seated Seated-Exercises Lower extremity -AG Reps/Sets 10 -AG Seated-Motion AROM;AAROM;PROM -AG Seated-Exercise Comments L was PROM, R was A,AA to PROM -AG Bed Mobility 1 Bed Mobility From 1 Rolling right -AG Bed Mobility Type 1 To and from -AG Bed Mobility to 1 Rolling left -AG Level of Assistance 1 Dependent +2 -AG Bed Mobility 2 Bed Mobility From 2 Supine -AG Bed Mobility Type 2 To -AG Bed Mobility to 2 Edge of Bed -AG Level of Assistance 2 Dependent +2 -AG Transfer 1 Transfer From 1 Sit -AG Transfer Type 1 To and from -AG Transfer to 1 Stand -AG Transfer Device 1 No device;Hand held assist -AG Transfer Level of Assistance 1 Maximum Assist;Moderate verbal cues +2 -AG Transfers 2 Transfer From 2 Bed -AG Transfer Type 2 To -AG Transfer to 2 Chair with arms -AG Technique 2 Stand pivot -AG Transfer Device 2 No device;Hand held assist -AG Transfer Level of Assistance 2 Maximum Assist;Moderate verbal cues +2 -AG Trials/Comments 2 Pt was soiled cleaned and put depends on. Pt then sat EOB with cga-min for balance and held onto the rail. Sat for about 3 min then stood and was able to bear the weight for the pivot transfer. Alarm and waffle cushion -AG Safe Environment End of Therapy Session Safe Environment End of Therapy Session Patient left in recliner;Chair alarm in place and activated;Call light within reach;Overbed table within reach -AG Plan Plan Continue with current plan -AG Recommendation/Plan PT Recommendation/Plan Inpatient Rehab Facility -AG Patient at high risk for Falls;Readmission;Injury due to decreased ability to care for self -AG Recommend Inpatient Rehab/Acute Rehab due to Ability to actively participate in intensive therapy 3hours/day, 5 days/week or 900 minutes per week;Highly motivated to participate in therapy;Not at baseline due to impaired ability to complete ADLs;Impaired ability to complete functional mobility;Likely to return to the community at discharge with support system in place;Requires greater than 25% physical assistance with most mobility tasks;Requires greater than 25% physical assistance with most ADL tasks;Requires multiple therapy disciplines to address functional deficits -AG Time Calculation Start Time 0945 -AG Stop Time 1008 -AG Time Calculation (min) 23 min -AG User Fish (r) = Recorded By, (t) = Taken By, (c) = Cosigned By Initials Name Effective Dates Kathy Mcclellan, NANOTECHNICIAN 11/19/20 - AG Melissa Figueroa, NANOTECHNICIAN 11/27/20 - PT Notes Notes from 04/30/24 through 05/02/24 No notes of this type exist for this encounter. , TRUCK CHAUFFEUR Eval and Treat Last 72 Hours TRUCK CHAUFFEUR Evaluation No documentation. TRUCK CHAUFFEUR Treatment No documentation. Clinical Swallow Study No documentation. TRUCK CHAUFFEUR Notes Notes from 04/30/24 through 05/02/24 No notes of this type exist for this encounter. * Plan of Care - Emerita Urbina RN - 05/02/2024 6:00 AM CDT Goals: Clinical Goals for the Shift: stable VS, safety & comfort [facility] Patient Centered Goal for Treatment: Rehad placement Summary: No acute events., Vital signs stable. Problem: Safety Goal: Patient will demonstrate safety requirements appropriate to situation/environment Outcome: Progressing Problem: Fall Risk Goal: Patient will remain free from falls Outcome: Progressing Goal: Patient's ability to state ways to decrease the risk of falls will improve Outcome: Progressing Goal: Patient will remain free from injury from falls Outcome: Progressing Problem: Cardiovascular Goal: Maintains optimal cardiac output and hemodynamic stability Outcome: Progressing Goal: Absence of cardiac dysrhythmias or at baseline Outcome: Progressing Problem: Neurosensory Goal: Achieves stable or improved neurological status Outcome: Progressing Goal: Achieves maximal functionality and self care Outcome: Progressing * Plan of Care - Keyonna Roberts RN - 05/01/2024 7:27 PM CDT Goals: Clinical Goals for the Shift: stable VS, safety & comfort [employer] [employer] Patient Centered Goal for Treatment: Rehad placement Summary: Pt alert to self & place. Denies pain when @ rest, & c/o BLE pain when turned sideto side. VS on soft side. Appetite was good. Will continue to monitor. * Plan of Care - Emerita Urbina RN - 05/01/2024 6:27 AM CDT Goals: Clinical Goals for the Shift: Ready for placment, safety and comfort [facility] Patient Centered Goal for Treatment: Rehad placement Summary: Pt was calm and quiet after midnight. Stable vital signs. No acute events. Pt is awaiting placement. * Plan of Care - Andria Wright RN - 04/30/2024 4:34 PM CDT Goals: Clinical Goals for the Shift: Ready for placment, safety and comfort [facility] Patient Centered Goal for Treatment: Rehad placement Summary: monitored lab, blood sugar, vs, and tele. Patient very sleepy today. Slept through breakfast. Patient remains calm and cooperative. Awaiting snf placement on Thursday. * Plan of Care - Andria Wright RN - 04/30/2024 12:30 PM CDT Goals: Clinical Goals for the Shift: Ready for placment, safety and comfort [employer] [employer] Patient Centered Goal for Treatment: Rehad placement Summary: * Plan of Care - Andrea De Leon RN - 04/30/2024 12:06 AM CDT Goals: Clinical Goals for the Shift: Ready for placment, safety and comfort [employer] Patient Centered Goal for Treatment: Rehad placement Summary: Vital signs within normal range. Less yelling and screaming. Bed alarm remains on. Call light remains within reach. Problem: Activity Goal: Capacity to carry out activities will improve Outcome: Progressing Flowsheets (Taken 04/29/2024 1200 by Cris Cunha, ROBERTO) Capacity to carry out activites will improve: Implement activity progression plan Goal: Mobility will improve Outcome: Progressing Flowsheets (Taken 04/29/2024 1200 by Cris Cunha RN) Mobility will improve: Encourage mobilization to extent of ability Problem: Coping Goal: Ability to verbalize positive feelings about self will improve Outcome: Progressing Flowsheets (Taken 04/29/2024 1200 by Cris Cunha, ROBERTO) Ability to verbalize positive feelings about self will improve: Support identification of positive aspects of self Problem: Nutritional Goal: Ability to chew and swallow food without choking will improve Outcome: Progressing Flowsheets (Taken 04/29/2024 1200 by Cris Cunha RN) Ability to chew and swallow food without choking will improve: Monitor ability to swallow Goal: Dietary intake will improve Outcome: Progressing Flowsheets (Taken 04/29/2024 1200 by Cris Cunha RN) Dietary intake will improve: Monitor nutritional intake Problem: Physical Regulation Goal: Ability to maintain clinical measurements within normal limits will improve Outcome: Progressing Flowsheets (Taken 04/29/2024 1200 by Cris Cunha, ROBERTO) Ability to maintain clinical measurements within normal limits will improve: Monitor cardiovascular status Monitor medication effects Problem: Respiratory Goal: Ability to state ways to decrease risk of aspiration will improve Outcome: Progressing Flowsheets (Taken 04/29/2024 1200 by Cris Cunha RN) Ability to state ways to decrease risk of aspiration will improve: Monitor signs and symptoms of aspiration Problem: Skin Integrity Goal: Risk for impaired skin integrity will decrease Outcome: Progressing Flowsheets (Taken 04/29/2024 1200 by Cris Cunha RN) Risk for impaired skin integrity will decrease: Implement precautions to protect skin integrity Problem: Tissue Perfusion Goal: Cerebral tissue perfusion will improve Outcome: Progressing Flowsheets (Taken 04/29/2024 1200 by Cris Cunha RN) Cerebral tissue perfusion will improve: Assess signs and symptoms of increased intracranial pressure Goal: Neurologic status will improve Outcome: Progressing Flowsheets (Taken 04/29/2024 1200 by Cris Cunha RN) Neurologic status will improve: Monitor neurologic status Problem: Swallowing Goal: Patient's ability to maintain safety and efficiency of swallowing without signs of aspirationwill improve Outcome: Progressing Flowsheets (Taken 04/29/2024 1200 by Cris Cunha, ROBERTO) Patient's ability to maintain safety and effiency of swallowing without signs of aspiration will improve: Provide adequate time for eating Problem: Bladder/Voiding Goal: Patient will demonstrate the ability to take care of indwelling catheter Outcome: Progressing Flowsheets (Taken 04/29/2024 1200 by Cris Cunha RN) Patient will demonstrate the ability to take care of indwelling catheter: Monitor intake and output Problem: Cognitive Goal: Patient will achieve stable or improved cognitive status Outcome: Progressing Flowsheets (Taken 04/29/2024 1200 by Cris Cunha RN) Patient will achieve stable or improved cognitive status: Assess for and report changes in cognitive status Assess cognitive status with reality orientation questions and use of environmental aids Problem: Safety Goal: Patient will demonstrate safety requirements appropriate to situation/environment Outcome: Progressing Flowsheets (Taken 04/29/2024 1200 by Cris Cunha RN) Patient will demonstrate safety requirements appropriate to situation/environment: Use gait belt during all transfers Problem: Infection Goal: Patient will have absence of infection during hospitalization Outcome: Progressing Flowsheets (Taken 04/29/2024 1200 by Cris Cunha, RN) Patient will have absence of infection during hospitalization: Asess and monitor for signs and symptoms of infection Problem: Fall Risk Goal: Patient will remain free from falls Outcome: Progressing Flowsheets (Taken 04/29/2024 1200 by Cris Cunha RN) Patient will remain free from falls: Assess risk factors for falls Goal: Patient's ability to state ways to decrease the risk of falls will improve Outcome: Progressing Flowsheets (Taken 04/29/2024 1200 by Cris Cunha RN) Patient's ability to state ways to decrease the risk of falls will improve: Teach fall prevention measures Goal: Patient will remain free from injury from falls Outcome: Progressing Flowsheets (Taken 04/29/2024 1200 by Cris Cunha, RN) Patient will remain free from injury from falls: Provide safe environment for activities of daily living in hospital environment Problem: Lack of Knowledge Goal: Ability to develop a pain control plan will improve Outcome: Progressing Flowsheets (Taken 04/29/2024 1200 by Cris Cunha, RN) Ability to develop a pain control plan will improve: Teach information regarding pain management Problem: Medication Goal: Satisfaction with pain management medication regimen will improve Outcome: Progressing Flowsheets (Taken 04/29/2024 1200 by Cris Cunha, RN) Satisfaction with pain management medication regimen will improve: Assess satisfaction with pain management regimen Evaluate medication effects Manage analgesics Problem: Sensory Goal: Ability to identify factors that increase pain levels will improve while working to decrease the patient's pain levels Outcome: Progressing Flowsheets (Taken 04/29/2024 1200 by Cris Cunha, RN) Ability to identify factors that increase pain levels will improve while working to decrease patients pain levels: Assess pain status Encourage distraction activities Problem: Coping Goal: Ability to cope will improve Outcome: Progressing Flowsheets (Taken 04/27/2024 1000 by Patsy Benson RN) Ability to cope will Improve: Encourage vebalization of feelings surrounding pain Problem: Health Behavior Goal: Identification of resources available to assist in meeting health care needs will improve Outcome: Progressing Flowsheets (Taken 04/27/2024 1000 by Patsy Benson RN) Identification of resources available to assist in meeting health care needs will improve: Collaborate with pain management Problem: Cardiovascular Goal: Maintains optimal cardiac output and hemodynamic stability Outcome: Progressing Flowsheets (Taken 04/29/2024 1200 by Cris Cunha, ROBERTO) Maintain optimal cardiac output and hemodynamic Stability: Monitor vital signs, rhythm, and trends Assess quality of pulses, skin color and temperature Assess for signs of decreased coronary artery perfusion - ex. angina Goal: Absence of cardiac dysrhythmias or at baseline Outcome: Progressing Flowsheets (Taken 04/29/2024 1200 by Cris Cunha, ROBERTO) Absence of cardiac dysrhythmias or at baseline: Continuous cardiac monitoring, monitor vital signs,obtain 12 lead EKG if indicated Problem: Genitourinary Goal: Absence of urinary retention Outcome: Progressing Flowsheets (Taken 04/29/2024 1200 by Cris Cunha RN) Absence of urinary retention: Assess amount and/or characteristics of urine Monitor intake/output and perform bladder scan as needed Goal: Urinary catheter remains patent Outcome: Progressing Flowsheets (Taken 04/27/2024 1000 by Patsy Benson RN) Urinary catheter remains patent: Assess need for a larger catheter size or a 3- way catheter for continuous bladder irrigation Problem: Discharge Planning Goal: Understanding discharge needs will improve Outcome: Progressing Flowsheets (Taken 04/29/2024 1200 by Cris Cunha RN) Understanding of discharge needs will improve: Identify discharge learning needs (meds, wound care, etc.) Collaborate with case management interdisciplinary team Problem: Skin Integrity Impairment Risk Goal: Mobility will improve Outcome: Progressing Flowsheets (Taken 04/27/2024 1000 by Patsy Benson RN) Mobility will improve: Encourage turning and repositioning, assist as needed Goal: Understanding of ways to prevent future skin breakdown will improve Outcome: Progressing Flowsheets (Taken 04/27/2024 1000 by Patsy Benson RN) Understanding of ways to prevent future skin breakdown will improve: Discuss treatments to protect skin integrity Goal: Nutritional status will improve Outcome: Progressing Flowsheets (Taken 04/27/2024 1000 by Patsy Benson RN) Nutritional status will improve: Assess nutritional status Goal: Risk for impaired skin integrity will decrease Outcome: Progressing Flowsheets (Taken 04/27/2024 1000 by Patsy Benson RN) Risk for impaired skin integrity will decrease: Identify risk factors for impaired skin integrity and/or pressure injuries Problem: Fall Risk Goal: Ability to state ways to decrease the risk of falls will improve Outcome: Progressing Flowsheets (Taken 04/27/2024 1000 by Patsy Benson RN) Ability to state ways to decrease the risk of falls will improve: Teach fall prevention measures Goal: Will remain free from falls Outcome: Progressing Flowsheets (Taken 04/27/2024 1000 by Patsy Benson RN) Will remain free from falls: Assess risk factors for falls Goal: Will remain free from injury from falls Outcome: Progressing Flowsheets (Taken 04/27/2024 1000 by Patsy Benson RN) Will remain free from injury from falls: Provide safe environment for conduction of activities of daily living in hospital environment Problem: Neurosensory Goal: Achieves stable or improved neurological status Outcome: Progressing Flowsheets (Taken 04/29/2024 1200 by Cris Cunha RN) Achieves Stable or Improved Neurological Status: Assess for and report changes in neurological status Monitor temperature, glucose, and sodium. Initiate appropriate interventions as ordered Goal: Achieves maximal functionality and self care Outcome: Progressing Flowsheets (Taken 04/29/2024 1200 by Cris Cunha RN) Achieves maximal functionality and self care: Monitor swallowing and airway patency with patient fatigue and changes in neurological status Problem: Respiratory Goal: Achieves optimal ventilation and oxygenation Outcome: Progressing Flowsheets (Taken 04/29/2024 1200 by Cris Cunha RN) Achieves optimal ventilation and oxygenation: Assess for changes in respiratory status Assess for changes in mentation and behavior Problem: Gastrointestinal Goal: Minimal or absence of nausea and vomiting Outcome: Progressing Flowsheets (Taken 04/29/2024 1200 by Cris Cunha RN) Minimal or absence of nausea and vomiting: Assess gastrointestinal status Provide a clean room free from unpleasant odors Goal: Maintains or returns to baseline bowel function Outcome: Progressing Problem: Infection Goal: Absence of infection during hospitalization Outcome: Progressing Flowsheets (Taken 04/29/2024 1200 by Cris Cunha RN) Absence of infection during hospitalization: Assess and monitor for signs and symptoms of infection Monitor lab/diagnostic results Monitor all insertion sites i.e., indwelling lines, tubes and drains and evaluate for need daily Problem: Musculoskeletal Goal: Return mobility to safest level of function Outcome: Progressing Flowsheets (Taken 04/29/2024 1200 by Cris Cunha RN) Return mobility to safest level of function: Assess patient stability and activity tolerance for standing, transferring and ambulating with or without assistive devices Ensure adequate protection for wounds/incisions during mobilization Goal: Return ADL status to a safe level of function Outcome: Progressing Flowsheets (Taken 04/29/2024 1200 by Cris Cunha RN) Return activities of daily living status to a safe level of function: Assess patient's activities of daily living deficits and provide assistive devices as needed Goal: Ability to perform activities at highest level will improve Outcome: Progressing Flowsheets (Taken 04/27/2024 1000 by Patsy Benson RN) Ability to perform activities at highest level will improve: Provide diversional activities Goal: Mobility, ROM and muscle strength will improve Outcome: Progressing Flowsheets (Taken 04/27/2024 1000 by Patsy Benson RN) Mobility, ROM and muscle strength will improve: Perform passive and/or assist with range of motion Problem: Skin/Tissue Integrity Goal: Skin integrity remains intact Outcome: Progressing Flowsheets (Taken 04/29/2024 1200 by Cris Cunha, ROBERTO) Skin integrity remains intact: Assess and document risk factors for pressure injury development Goal: Oral mucous membranes remain intact Description: Outcome: Progressing Flowsheets (Taken 04/29/2024 1200 by Cris Cunha, ROBERTO) Oral mucous membranes remain intact: Assess oral mucosa and hygiene practices * Plan of Care - Cris Cunha RN - 04/29/2024 6:13 PM CDT Goals: Clinical Goals for the Shift: Ready for placment, safety and comfort [facility] Patient Cent[facility] Goal for Treatment: Rehad placement Summary: Pt very lethargic at beginning of shift, family at bedside during most of morning. Missed pt due to lethargy, will come back to work with her over the weekend. When awake very calm, resting comfortably. Agreeable to plan of care, no complaints of pain or questions at this time. VSS, no insulin coverage needed during this shift. Had a poor appetite and only one soiled diaper during this shift. Awaiting placement for SNF. Will continue plan of care. Problem: Activity Goal: Capacity to carry out activities will improve Recent Flowsheet Documentation Taken 04/29/2024 1200 by Cris Cunha RN Capacity to carry out activites will improve: Implement activity progression plan Goal: Mobility will improve Recent Flowsheet Documentation Taken 04/29/2024 1200 by Cris Cunha RN Mobility will improve: Encourage mobilization to extent of ability Problem: Coping Goal: Ability to verbalize positive feelings about self will improve Recent Flowsheet Documentation Taken 04/29/2024 1200 by Cris Cunha RN Ability to verbalize positive feelings about self will improve: Support identification of positive aspects of self Problem: Nutritional Goal: Ability to chew and swallow food without choking will improve Recent Flowsheet Documentation Taken 04/29/2024 1200 by Cris Cunha RN Ability to chew and swallow food without choking will improve: Monitor ability to swallow Goal: Dietary intake will improve Recent Flowsheet Documentation Taken 04/29/2024 1200 by Cris Cunha RN Dietary intake will improve: Monitor nutritional intake Problem: Physical Regulation Goal: Ability to maintain clinical measurements within normal limits will improve Recent Flowsheet Documentation Taken 04/29/2024 1200 by Cris Cunha RN Ability to maintain clinical measurements within normal limits will improve: Monitor cardiovascular status Monitor medication effects Problem: Respiratory Goal: Ability to state ways to decrease risk of aspiration will improve Recent Flowsheet Documentation Taken 04/29/2024 1200 by Cris Cunha RN Ability to state ways to decrease risk of aspiration will improve: Monitor signs and symptoms of aspiration Problem: Skin Integrity Goal: Risk for impaired skin integrity will decrease Recent Flowsheet Documentation Taken 04/29/2024 1200 by Cris Cunha RN Risk for impaired skin integrity will decrease: Implement precautions to protect skin integrity Problem: Tissue Perfusion Goal: Cerebral tissue perfusion will improve Recent Flowsheet Documentation Taken 04/29/2024 1200 by Cris Cunha RN Cerebral tissue perfusion will improve: Assess signs and symptoms of increased intracranial pressure Goal: Neurologic status will improve Recent Flowsheet Documentation Taken 04/29/2024 1200 by Cris Cunha RN Neurologic status will improve: Monitor neurologic status Problem: Swallowing Goal: Patient's ability to maintain safety and efficiency of swallowing without signs of aspirationwill improve Recent Flowsheet Documentation Taken 04/29/2024 1200 by Cris Cunha RN Patient's ability to maintain safety and effiency of swallowing without signs of aspiration will improve: Provide adequate time for eating Problem: Bladder/Voiding Goal: Patient will demonstrate the ability to take care of indwelling catheter Recent Flowsheet Documentation Taken 04/29/2024 1200 by Cris Cunha RN Patient will demonstrate the ability to take care of indwelling catheter: Monitor intake and output Problem: Cognitive Goal: Patient will achieve stable or improved cognitive status Recent Flowsheet Documentation Taken 04/29/2024 1200 by Cris Cunha RN Patient will achieve stable or improved cognitive status: Assess for and report changes in cognitive status Assess cognitive status with reality orientation questions and use of environmental aids Problem: Safety Goal: Patient will demonstrate safety requirements appropriate to situation/environment Recent Flowsheet Documentation Taken 04/29/2024 1200 by Cris Cunha RN Patient will demonstrate safety requirements appropriate to situation/environment: Use gait belt during all transfers Problem: Infection Goal: Patient will have absence of infection during hospitalization Recent Flowsheet Documentation Taken 04/29/2024 1200 by Cris Cunha RN Patient will have absence of infection during hospitalization: Asess and monitor for signs and symptoms of infection Problem: Fall Risk Goal: Patient will remain free from falls Recent Flowsheet Documentation Taken 04/29/2024 1200 by Cris Cunha RN Patient will remain free from falls: Assess risk factors for falls Goal: Patient's ability to state ways to decrease the risk of falls will improve Recent Flowsheet Documentation Taken 04/29/2024 1200 by Cris Cunha RN Patient's ability to state ways to decrease the risk of falls will improve: Teach fall prevention measures Goal: Patient will remain free from injury from falls Recent Flowsheet Documentation Taken 04/29/2024 1200 by Cris Cunha RN Patient will remain free from injury from falls: Provide safe environment for activities of daily living in hospital environment Problem: Lack of Knowledge Goal: Ability to develop a pain control plan will improve Recent Flowsheet Documentation Taken 04/29/2024 1200 by Cris Cunha RN Ability to develop a pain control plan will improve: Teach information regarding pain management Problem: Medication Goal: Satisfaction with pain management medication regimen will improve Recent Flowsheet Documentation Taken 04/29/2024 1200 by Cris Cunha RN Satisfaction with pain management medication regimen will improve: Assess satisfaction with pain management regimen Evaluate medication effects Manage analgesics Problem: Sensory Goal: Ability to identify factors that increase pain levels will improve while working to decrease the patient's pain levels Recent Flowsheet Documentation Taken 04/29/2024 1200 by Cris Cunha RN Ability to identify factors that increase pain levels will improve while working to decrease patients pain levels: Assess pain status Encourage distraction activities Problem: Cardiovascular Goal: Maintains optimal cardiac output and hemodynamic stability Recent Flowsheet Documentation Taken 04/29/2024 1200 by Cris Cunha RN Maintain optimal cardiac output and hemodynamic Stability: Monitor vital signs, rhythm, and trends Assess quality of pulses, skin color and temperature Assess for signs of decreased coronary artery perfusion - ex. angina Goal: Absence of cardiac dysrhythmias or at baseline Recent Flowsheet Documentation Taken 04/29/2024 1200 by Cris Cunha RN Absence of cardiac dysrhythmias or at baseline: Continuous cardiac monitoring, monitor vital signs,obtain 12 lead EKG if indicated Problem: Genitourinary Goal: Absence of urinary retention Recent Flowsheet Documentation Taken 04/29/2024 1200 by Cris Cunha RN Absence of urinary retention: Assess amount and/or characteristics of urine Monitor intake/output and perform bladder scan as needed Problem: Discharge Planning Goal: Understanding discharge needs will improve Recent Flowsheet Documentation Taken 04/29/2024 1200 by Cris Cunha RN Understanding of discharge needs will improve: Identify discharge learning needs (meds, wound care, etc.) Collaborate with case management interdisciplinary team Problem: Neurosensory Goal: Achieves stable or improved neurological status Recent Flowsheet Documentation Taken 04/29/2024 1200 by Cris Cunha RN Achieves Stable or Improved Neurological Status: Assess for and report changes in neurological status Monitor temperature, glucose, and sodium. Initiate appropriate interventions as ordered Goal: Achieves maximal functionality and self care Recent Flowsheet Documentation Taken 04/29/2024 1200 by Cris Cunha RN Achieves maximal functionality and self care: Monitor swallowing and airway patency with patient fatigue and changes in neurological status Problem: Respiratory Goal: Achieves optimal ventilation and oxygenation Recent Flowsheet Documentation Taken 04/29/2024 1200 by Cris Cunha RN Achieves optimal ventilation and oxygenation: Assess for changes in respiratory status Assess for changes in mentation and behavior Problem: Gastrointestinal Goal: Minimal or absence of nausea and vomiting Recent Flowsheet Documentation Taken 04/29/2024 1200 by Cris Cunha RN Minimal or absence of nausea and vomiting: Assess gastrointestinal status Provide a clean room free from unpleasant odors Goal: Maintains or returns to baseline bowel function Recent Flowsheet Documentation Taken 04/29/2024 1200 by Cris Cunha RN Maintains or returns to baseline bowel function: Assess bowel function, evaluate bowel sounds and signs of abdominal distention Monitor amount, characteristics and/or frequency of stool Problem: Infection Goal: Absence of infection during hospitalization Recent Flowsheet Documentation Taken 04/29/2024 1200 by Cris Cunha RN Absence of infection during hospitalization: Assess and monitor for signs and symptoms of infection Monitor lab/diagnostic results Monitor all insertion sites i.e., indwelling lines, tubes and drains and evaluate for need daily Problem: Musculoskeletal Goal: Return mobility to safest level of function Recent Flowsheet Documentation Taken 04/29/2024 1200 by Cris Cunha RN Return mobility to safest level of function: Assess patient stability and activity tolerance for standing, transferring and ambulating with or without assistive devices Ensure adequate protection for wounds/incisions during mobilization Goal: Return ADL status to a safe level of function Recent Flowsheet Documentation Taken 04/29/2024 1200 by Cris Cunha RN Return activities of daily living status to a safe level of function: Assess patient's activities of daily living deficits and provide assistive devices as needed Problem: Skin/Tissue Integrity Goal: Skin integrity remains intact Recent Flowsheet Documentation Taken 04/29/2024 1200 by Cris Cunha RN Skin integrity remains intact: Assess and document risk factors for pressure injury development Goal: Oral mucous membranes remain intact Description: Recent Flowsheet Documentation Taken 04/29/2024 1200 by Cris Cunha RN Oral mucous membranes remain intact: Assess oral mucosa and hygiene practices * Plan of Care - Ning Gordon RN - 04/29/2024 5:32 PM CDT CASE MANAGEMENT FOLLOWING: At this time care management team is working with patient's /Oneil for safe discharge planning, please details below. For questions or if additional dc planning needs arise, please reach out to the care management team. 04/29/24 1738 Discharge Planning Support System Spouse/Significant Other Anticipated discharge [facility] of care jail facility (short term care) (acute rehab unable to accept, SNF referrals sent, awaiting responses) [facility] reviewing and will start [employer] auth Thursday if able to accept and no accepting SNF prior to that. Does the patient need discharge transport arranged? Yes Type of Transportation Ambulance/EMS (bed confined) Discharge Transportation Communication Mode of transport has been discussed with the patient/family. All are agreeable to the plan and understand their responsibilities to ensure the safe transfer. No further CM/SW intervention is anticipated at this time. Post Acute Care Plan Post Acute Care Facility Yes Referral Status Started * Plan of Care - Jayla Finney RN - 04/29/2024 3:54 AM CDT Goals: Clinical Goals for the Shift: monitor safety and provide comfort [facility] Patient [facility] Goal for Treatment: Needing Rehab placement Summary: Patient with anxiety at start of shift, given Atarax with some calming down. She does redirect easily, but forgets and then yells out again. Emotional support given. Resp even and unlabored.Remains on room air. Incontinent of bowel and bladder. Bed alarm on at all times. * Plan of Care - Andria Wright RN - 04/28/2024 5:58 PM CDT Goals: Clinical Goals for the Shift: increase in strength [facility] Patient [facility] Goal for Treatment: increase in strength Summary: monitored tele, vs, and blood sugar. Patient remains confused. Oriented x1. Patient participated with physical therapy. Patient up in chair x 3 hours. Patient dismissed. Awaiting for insurance approval. * Plan of Care - Ning Gordon RN - 04/28/2024 4:44 PM CDT CASE MANAGEMENT FOLLOWING: At this time care management team is working with patient's /Oneil for safe discharge planning, please details below. For questions or if additional dc planning needs arise, please reach out to the care management team. 04/28/24 0161 Discharge Planning Support System Spouse/Significant Other Anticipated discharge level of care jail facility (short term care) (acute rehab unable to accept, SNF referrals sent, awaiting responses) Does the patient need discharge transport arranged? Yes Type of Transportation Ambulance/EMS (bed confined) Discharge Transportation Communication Mode of transport has been discussed with the patient/family. All are agreeable to the plan and understand their responsibilities to ensure the safe transfer. No further CM/SW intervention is anticipated at this time. Post Acute Care Plan Post Acute Care Facility Yes Referral Status Started (SNF referrals sent, awaiting responses) * [facility] Note - Ning Gordon RN - 04/28/2024 2:20 PM CDT Images from the original note were not included. Patient Information: OT Eval and Treat Last 72 Hours OT Evaluation No documentation. OT Treatment Row Name 04/28/24 0936 04/27/24 0923 04/26/24 0946 04/25/24 0851 04/22/24 0944 Session Type Treatment -KK Treatment -KK Treatment -KK Treatment -LC Treatment -KK OT Received On 04/28/24 -KK 04/27/24 -KK 04/26/24 -KK 04/25/24 -LC -- Safe Environment Arm band checked;Patient found in supine;Gait belt utilized for all out of bed mobility -KK Arm band checked;Patient found in supine;Gait belt utilized for all out of bed mobility -KK Arm band checked;Patient found in supine;Gait belt utilized for all out of bed mobility -KK Arm band checked;Patient found in supine -LC -- Subjective Agreeable to Therapy -KK Agreeable to Therapy -KK Agreeable to Therapy -KK Agreeable to Therapy -LC -- Subjective Comment I am ok -KK Hello -KK I am not hungry -KK I am old, I can't do this -LC -- OT Missed Visit Reason -- -- -- -- Procedure/testing/appointment Attempted x2 this am ([phone]), on both attempts pt off floor for SHIVAM. -KK Family/Caregiver Present Yes Spouse -KK Yes Spouse -KK -- -- -- Precautions -- -- -- Bed/Chair Alarm;Fall risk -LC -- Pain Assessment No/denies pain -KK No/denies pain -KK No/denies pain -KK No/denies pain -LC -- Static Sitting-Balance Support Bilateral upper extremity supported;Feet supported -KK Bilateral upper extremity supported -KK Bilateral upper extremity supported;Feet supported -KK Bilateral upper extremity supported;Feet supported -LC -- Static Sitting-Sitting Surface Bed -KK Bed -KK Bed -KK Bed -LC -- Static Sitting-Level of Assistance Contact guard;Minimum assistance -KK Minimum assistance -KK Contact guard;Minimum assistance -KK Maximum assistance -LC -- Static Sitting-Comment/# of Minutes Pt required cueing on leaning to R side due to increased lean towards L. -KK Pt required cueing to lean to R due to pt leaning to L -KK Pt able to sit EOB x3 min -KK -- pt presented with left posterior lean this date, -LC -- Dynamic Sitting-Balance Support -- -- -- Feet supported;Unilateral upper extremity supported -LC -- Dynamic Sitting-Balance -- -- -- Lateral lean;Forward lean;Reaching for objects;Trunk control activities -LC -- Dynamic Sitting-Sitting Surface -- -- -- Bed -LC -- Dynamic Sitting-Level of Assistance -- -- -- Maximum assistance -LC -- Dynamic Sitting-Comments -- -- -- pt with poor dynamic sitting balance this . -LC -- Static Standing-Balance Support Bilateral upper extremity supported -KK Bilateral upper extremity supported -KK -- -- -- Static Standing-Standing Surface Floor -KK Floor -KK -- -- -- Static Standing-Level of Assistance -- MOD assist x2 -KK -- MOD assist x2 -KK -- -- -- Static Standing-Comment/# of Minutes Pt able to perform static standing x3 trials -KK Pt able to stand approx 15 seconds -KK -- -- -- ADL Comments -- Pt able to wash her face with SBA and MOD cueing to wash all parts of her face. -KKPt required MAX assist for pericare as well as adult diaper mgmt. MAX assist to don socks. -KK -- -- Grooming: Where assessed -- -- -- Edge of bed - -- Grooming: Level of assistance -- -- -- Moderate Assist;Moderate Verbal Cues - -- Grooming: Assistance with -- -- -- Brushing hair;Reaching all areas of head/face;Attending to task pt required Mod A to reach all areas of head, and mod verbal cues to attend to task this date. -LC -- Bed Mobility From 1 Supine -KK Rolling right -KK Rolling right -KK Supine -LC -- Bed Mobility Type 1 To -KK To and from -KK To and from -KK To and from -LC -- Bed Mobility to 1 Edge of bed -KK Rolling left -KK Rolling left -KK Edge of bed -LC -- Level of Assistance 1 -- DEP x2 -KK Maximum Assist -KK -- DEP x2 -KK Dependent x1-2, pt did not attempt to assist with bed mobility this date stating, I'm too old to do this, I just can't -LC -- Bed Mobility From 2 -- Supine -KK Supine -KK -- -- Bed Mobility Type 2 -- To -KK To -KK -- -- Bed Mobility to 2 -- Edge of Bed -KK Edge of Bed -KK -- -- Level of Assistance 2 -- -- DEP x2 -KK -- DEP x2 -KK -- -- Transfer From 1 Sit -KK Sit -KK Sit -KK -- -- Transfer Type 1 To and from -KK To and from -KK To and from -KK -- -- Transfer to 1 Stand -KK Stand -KK Stand -KK -- -- Transfer Device 1 Wheeled walker -KK No device;Hand held assist -KK No device;Hand held assist -KK -- -- Transfer Level of Assistance 1 -- MOD assist x2 -KK -- MOD assist x2 -KK -- MAX assist x2 -KK -- -- Trials/Comments 1 Pt able to perform sit<>stand x3 trials. 1 trial we attempted to stand withWW but pt unable to advance feet to take steps -KK -- -- -- -- Transfer From 2 Bed -KK Bed -KK Bed -KK -- -- Transfer Type 2 To -KK To -KK To -KK -- -- Transfer to 2 Chair with arms -KK Chair with arms -KK Chair with arms -KK -- -- Technique 2 -- Stand pivot -KK Stand pivot -KK -- -- Transfer Device 2 No device;Hand held assist -KK No device;Hand held assist -KK No device;Hand heldassist -KK -- -- Transfer Level of Assistance 2 -- MAX assist x2 -KK -- MAX assist x2 -KK -- MAX assist x2 -KK -- -- Trials/Comments 2 Pt able to bear weight through LEs and shuffle feet during transfer -KK -- Pt able to bear weight through LEs but unable to advance feet - KK -- -- Other Exercise PROM, LUE, in all planes and joints of movement. Pt able to initiate movement in LUEthis session but was unable to perform full ROM without assist -KK PROM, LUE, in all planes and joints of movement. -KK PROM, LUE, in all planes and joints of movement. -KK -- -- Cognition Comments Pt stated [place] when asked were she was and was unable to state what yearit was -KK -- Pt unable to answer any orientation ?s this session. Pt shows poor command follow with all tasks -KK -- -- Overall Cognitive Status Impaired -KK -- Impaired -KK -- -- Arousal/Alertness Delayed responses to stimuli -KK -- Alert -KK Alert -LC -- Attention Span Attends with cues to redirect;Difficulty attending to directions -KK -- Attends withcues to redirect;Difficulty attending to directions -KK -- -- Memory Decreased short term memory;Decreased recall of recent events;Decreased recall of biographical information -KK -- Decreased short term memory;Decreased recall of recent events;Decreased recallof biographical information -KK -- -- Current communication Impaired - Global Aphasia -KK -- Impaired - Global Aphasia -KK -- -- Orientation Oriented to person -KK -- Oriented to person -KK Oriented to person -LC -- Following Commands Follows one step commands with repetition -KK -- Unable to follow commands -KK -- -- Safety Judgment Unable to assess -KK -- Unable to assess -KK -- -- Awareness of Errors -- -- Unable to assess -KK -- -- Endurance Tolerates 10 - 20 min activity with multiple rests -KK Tolerates 10 - 20 min activity with multiple rests -KK Tolerates 10 - 20 min activity with multiple rests -KK -- -- Comments Pt continues to require much cueing both verabal and tactile when scanning to locate itemson L side of room -KK Had pt scan room for various things focusing on items to her L. Pt required verbal and visual cueing on looking to far left as well as bringing eyes to far left. Had pt perform dynamic reaching tasks while sitting up in chair using RUE. Pt able to perform task with MIN cueing for direction follow and cueing to reach L of midline. -KK -- Pt participated in visual tracking activity. Pt able to track from midline to right side, however unable to track from midline to left side. -LC -- Safe Environment End of Therapy Session Patient left in recliner;Chair alarm in place and activated;ROBERTO notified;Overbed table within reach;Call light within reach Spouse at bedside -KK Patient left in recliner;Chair alarm in place and activated;RN notified;Call light within reach;Overbed table within reach Spouse at bedside -KK Patient left in recliner;Chair alarm in place and activated;RN notified;Call light within reach;Overbed table within reach -KK Patient left supine in bed;Bed alarm in place and activated;Call light within reach;Overbed table within reach -LC -- Prognosis Fair -KK Fair -KK Fair -KK Fair -LC -- Problem List -- -- -- Decreased endurance;Decreased balance;Decreased functional mobility;DecreasedIADL independence;Decreased ADL independence - -- Plan Continue with current plan -KK Continue with current plan -KK Continue with current plan -KK Continue with current plan -LC Continue with current plan -KK OT Recommendation Custodial Facility -KK Custodial Facility -KK Custodial Facility -KK Custodial Facility - -- Patient at high risk for Falls;Readmission;Injury due to decreased ability to care for self;Injury due to reduced functional status;Injury due to balance deficits;Injury due to impaired cognition;Injury at home as patient has not returned to prior level of function -KK Falls;Readmission;Injury due to decreased ability to care for self;Injury due to reduced functional status;Injury at home as patient has not returned to prior level of function;Injury due to impaired cognition;Injury due to balance deficits -KK Falls;Readmission;Injury due to decreased ability to care for self;Injury due to reduced functional status;Injury due to balance deficits;Injury at home as patient has not returned to prior level of function;Injury due to impaired cognition -KK Falls;Readmission;Injury due to decreased ability to care for self;Injury due to reduced functional status;Injury due to impaired cognition; Injury due to balance deficits;Injury at home as patient has not returned to prior level of function;Developing impaired skin integrity;Cognitive decline due to decreased social participation;Prolonged dependence for self care tasks - -- Recommend SNF due to Risk of injury at home;Unable to safely care for self in the home;Skilled therapy needed to address care for self in the home;Skilled therapy needed to address functional deficits;Skilled therapy needed for patient to return to prior level of independence - Risk of injury at home;Unable to safely care for self in the home;Skilled therapy needed to address care for self in the home;Skilled therapy needed to address functional deficits;Skilled therapy needed for patient to return to prior level of independence -KK Risk of injury at home;Unable to safely care for self in the home;Skilled therapy needed to address care for self in the home;Skilled therapy needed to address functional deficits;Skilled therapy needed for patient to return to prior level of independence -KK Risk of injury at home;Unable to safely care for self in the home;Skilled therapy needed to address care for self in the home;Skilled therapy needed to address functional deficits;Skilled therapy needed for patient to return to prior level of independence -LC -- Progress during current admission Slow progress, cognitive deficits -KK Slow progress, cognitive deficits -KK Slow progress, cognitive deficits -KK Slow progress, cognitive deficits -LC -- Start Time 0935 -KK 0922 -KK 0945 -KK 0851 -LC -- Stop Time 1003 -KK 0946 -KK 1008 -KK 0914 -LC -- Time Calculation (min) 28 min -KK 24 min -KK 23 min -KK 23 min -LC -- Reason for interruption Co Tx with Melissa Dobbins, NANOTECHNICIAN -KK Co Tx with Melissa Dobbins, NANOTECHNICIAN -KK Co Tx with Melissa Dobbins, NANOTECHNICIAN -KK -- -- User Fish (r) = Recorded By, (t) = Taken By, (c) = Cosigned By Initials Name Effective Dates LC Bety Tyler COTA 02/01/22 - KK Annika Ruggiero COTA 07/10/21 - OT Notes Notes from 04/26/24 through 04/28/24 No notes of this type exist for this encounter. , PT Eval and Treat Last 72 Hours PT Evaluation No documentation. PT TREATMENT (Last 168 Hours) PT Treatment Row Name 04/28/24 0935 04/27/24 0922 04/26/24 0945 04/25/24 0852 04/24/24 1055 PT Last Visit Session Type Treatment -AG Treatment -AG Treatment -AG Treatment -DM Treatment -MH Safe Environment Arm band checked;Patient found in supine;Session completed bedside;Gait belt utilized for all out of bed mobility -AG Arm band checked;Patient found in supine;Session completed bedside;Gait belt utilized for all out of bed mobility -AG Arm band checked;Patient found in supine;Session completed bedside;Gait belt utilized for all out of bed mobility -AG Arm band checked;Patient found in supine;Session completed bedside - Arm band checked - Subjective Agreeable to Therapy -AG Agreeable to Therapy -AG Agreeable to Therapy -AG Agreeable to Therapy -DM Agreeable to Therapy - Family/Caregiver Present Yes -AG Yes -AG Yes -AG -- Yes son - Precautions Precautions Bed/Chair Alarm;Fall risk -AG Bed/Chair Alarm;Fall risk -AG Bed/Chair Alarm;Fall risk -AG Bed/Chair Alarm;Fall risk -DM Bed/Chair Alarm - Precaution Comments -- -- -- -- tele - alarm - Activity Tolerance Endurance -- -- -- -- Tolerates 10 - 20 min activity with multiple rests - Pain Assessment Pain Assessment No/denies pain -AG No/denies pain -AG No/denies pain -AG No/denies pain - -- Pain Score -- -- -- -- 4 - Pain Type -- -- -- -- Chronic pain - Pain Location -- -- -- -- Back (Lumbar) - Pain Descriptors -- -- -- -- Aching - Cognition Arousal/Alertness Alert - Alert - Alert - Alert - Alert - Current communication -- Impaired - Global Aphasia - -- -- -- Orientation Oriented to person -AG Oriented to person -AG Oriented to person -AG Oriented to person-DM -- Safety Judgment -- -- -- -- Decreased awareness of need for assistance - Insight -- -- -- -- Decreased awareness of deficits - Compliance/Behavior -- -- -- Easy to engage - Easy to engage - Static Sitting Balance Static Sitting-Balance Support -- -- -- Bilateral upper extremity supported;Feet supported - -- Static Sitting-Sitting Surface -- -- -- Bed - -- Static Sitting-Level of Assistance -- -- -- Maximum assistance - -- Static Sitting-Comment/# of Minutes -- -- -- 15 minutes with L lat/post lean -DM -- Dynamic Sitting Balance Dynamic Sitting-Balance Support -- -- -- Unilateral upper extremity supported;Feet supported -DM -- Dynamic Sitting-Sitting Surface -- -- -- Bed -DM -- Dynamic Sitting-Level of Assistance -- -- -- Maximum assistance -DM -- Seated Seated-Exercises Lower extremity -AG Lower extremity -AG Lower extremity -AG -- -- Reps/Sets 10 -AG 10 -AG 10 -AG -- -- Seated-Motion AROM;AAROM -AG AROM;AAROM;PROM -AG AROM;AAROM;PROM -AG -- -- Seated-Exercise Comments L was PROM, R was A,AA to PROM -AG L was PROM, R was A,AA to PROM -AG L was PROM, R was A,AA to PROM -AG -- -- Bed Mobility 1 Bed Mobility From 1 Rolling right -AG Rolling right -AG Rolling right -AG Supine -DM Supine -MH Bed Mobility Type 1 To and from -AG To and from -AG To and from -AG To and from -DM To -MH Bed Mobility to 1 Rolling left -AG Rolling left -AG Rolling left -AG Edge of bed -DM Edge of bed -MH Level of Assistance 1 Maximum Assist;Minimal verbal cues +2 -AG Maximum Assist;Minimal verbal cues -AG Dependent +2 -AG Dependent -DM Moderate Assist -MH Bed Mobility Comments 1 -- -- -- 1-2 -DM mod plus two -MH Bed Mobility 2 Bed Mobility From 2 Supine -AG Supine -AG Supine -AG -- -- Bed Mobility Type 2 To -AG To -AG To -AG -- -- Bed Mobility to 2 Edge of Bed -AG Edge of Bed -AG Edge of Bed -AG -- -- Level of Assistance 2 Dependent +2 -AG Dependent;Minimal verbal cues +2 -AG Dependent +2 -AG -- -- Bed Mobility Comments 2 Pt was dependent to get to the EOB but once there was sit up better then she had. Not leaning to the left and back as much. Needed sba to cga for balance. Pt used rail to holdwith Rue off and on. -AG -- -- -- -- Transfer 1 Transfer From 1 Sit -AG Sit -AG Sit -AG -- Sit -MH Transfer Type 1 To and from -AG To and from -AG To and from -AG -- To -MH Transfer to 1 Stand -AG Stand -AG Stand -AG -- Stand -MH Transfer Device 1 Wheeled walker -AG No device;Hand held assist -AG No device;Hand held assist -AG -- No device -MH Transfer Level of Assistance 1 Moderate Assist;Minimal verbal cues +2 -AG Moderate verbal cues;Moderate Assist +2 -AG Maximum Assist;Moderate verbal cues +2 -AG -- Maximum Assist -MH Trials/Comments 1 Pt stood once with RW but was not able to move feet. Pt sat then stood again withhha max+2 attempted to take steps but was not able to take but one step with the L and was not ableto control where to put it. Pt started to c/o of it hurting and sat back on the bed. -AG -- -- did not attempt due to poor sitting balance and safety concerns. -DM pt was not able to advance her feetto chair - pivot transfer required -MH Transfers 2 Transfer From 2 Bed -AG Bed -AG Bed -AG -- Bed -MH Transfer Type 2 To -AG To -AG To -AG -- To -MH Transfer to 2 Chair with arms -AG Chair with arms -AG Chair with arms -AG -- Chair with arms -MH Technique 2 Stand pivot -AG Stand pivot -AG Stand pivot -AG -- -- Transfer Device 2 No device;Hand held assist -AG No device;Hand held assist -AG No device;Hand heldassist -AG -- -- Transfer Level of Assistance 2 Maximum Assist -AG Maximum Assist;Moderate verbal cues +2 -AG Maximum Assist;Moderate verbal cues +2 -AG -- Moderate Assist;Maximum Assist -MH Trials/Comments 2 Pt stood a thrid time and shuffled a little but then pivoted to the chair. Alarm in chair. -AG Pt sat EOB with sba to min assist for balance. Pt held onto the rails and would breifly let go and still keep balance for a few seconds before leaning to the L and back. Pt stood and attempted to take a step but was not able. Pt then sat to rest and then stood again and pivoted to the chair. Pt performed ex's in chair needed vc's and tactile cues. Alarm on and waffle cushion in chair. -AG Pt was soiled cleaned and put depends on. Pt then sat EOB with cga-min for balance and held onto the rail. Sat for about 3 min then stood and was able to bear the weight for the pivot transfer. Alarm and waffle cushion -AG -- -- Safe Environment End of Therapy Session Safe Environment End of Therapy Session Patient left in recliner;Chair alarm in place and activated;Call light within reach;Overbed table within reach -AG Patient left in recliner;Chair alarm in place and activated;Call light within reach;Overbed table within reach -AG Patient left in recliner;Chair alarm in place and activated;Call light within reach;Overbed table within reach -AG Patient left supine in bed;Bed alarm in place and activated;Call light within reach;Overbed table within reach;Bedin lowest position with wheels locked - -- Assessment Prognosis -- -- -- -- Fair - Problem List -- -- -- -- Gait deviations;Decreased strength;Impaired balance;Decreased endurance - Plan Plan Continue with current plan -AG Continue with current plan -AG Continue with current plan -AG -- Continue with current plan - Recommendation/Plan PT Recommendation/Plan Custodial Facility -AG [facility] - Inpatient Rehab Facility - Inpatient Rehab Facility - Patient at high risk for Falls;Readmission;Injury due to decreased ability to care for self -AG Falls;Readmission;Injury due to decreased ability to care for self -AG Falls;Readmission;Injury due to decreased ability to care for self -AG Falls;Readmission;Injury due to decreased ability to care forself - -- Recommend Inpatient Rehab/Acute Rehab due to -- -- Ability to actively participate in intensive therapy 3 hours/day, 5 days/week or 900 minutes per week;Highly motivated to participate in therapy;Notat baseline due to impaired ability to complete ADLs;Impaired ability to complete functional mobility;Likely to return to the community at discharge with support system in place;Requires greater than25% physical assistance with most mobility tasks;Requires greater than 25% physical assistance withmost ADL tasks;Requires multiple therapy disciplines to address functional deficits -AG Ability to actively participate in intensive therapy 3 hours/day, 5 days/week or 900 minutes per week;Highly mot ivated to participate in therapy;Not at baseline due to impaired ability to complete ADLs;Impaired ability to complete functional mobility;Likely to return to the community at discharge with support system in place;Requires greater than 25% physical assistance with most mobility tasks;Requires greater than 25% physical assistance with most ADL tasks;Requires multiple therapy disciplines to address functional deficits -DM -- Recommend SNF due to Risk of injury at home;Unable to safely care for self in the home;Skilled therapy needed to address care for self in the home;Skilled therapy needed to address functional deficits;Skilled therapy needed for patient to return to prior level of independence -AG Risk of injury at home;Skilled therapy needed to address care for self in the home;Unable to safely care for self in the home;Skilled therapy needed to address functional deficits;Skilled therapy needed for patient to return to prior level of independence -AG -- -- -- Time Calculation Start Time 0935 -AG 0922 -AG 0945 -AG 0851 -DM 1055 -MH Stop Time 1003 -AG 0946 -AG 1008 -AG 0914 -DM 1115 -MH Time Calculation (min) 28 min -AG 24 min -AG 23 min -AG 23 min -DM 20 min -MH Row Name 04/23/24 0904 04/22/24 1502 04/22/24 1022 PT Last Visit Session Type Treatment -RM Treatment -LK Treatment -LK Safe Environment Arm band checked;Patient found in supine;Gait belt utilized for all out of bed mobility - Arm band checked;Patient found in supine;Session completed bedside -LK -- Subjective Agreeable to Therapy -RM Agreeable to Therapy -LK -- Subjective Comment Pt feeling okay. -RM per Nurse Abdalla ok to work with pt this afternoon for bedlevel activity. nusring needing to place IV for c-t skan this afternoon. -LK pt off floor for SHIVAM, pt unable to have pain meds until after 2pm per Nurse Abdalla, hold therapy until after 2pm today, pt may participate if willing and able after pain meds given. -LK PT Missed Visit Reason -- -- Procedure/testing/appointment -LK Rehab Only - Missed Reasons - All Disciplines -- -- Procedures/testing -LK Family/Caregiver Present Yes -RM No -LK -- Precautions Precautions -- Bed/Chair Alarm;Fall risk -LK -- Precaution Comments tele, alarm - tele,IV access -LK -- Activity Tolerance Endurance -- Tolerates 10 - 20 min activity with multiple rests -LK -- Pain Assessment Pain Assessment No/denies pain - 0-10 -LK -- Dickinson-Reyna FACES Pain Rating -- 4 -LK -- Pain Score -- 4 -LK -- Patient's Stated Pain Goal -- No pain -LK -- Pain Type -- Chronic pain -LK -- Chronic Pain Precipitating Factors -- At Rest -LK -- Chronic Pain Alleviating Factors -- Medication -LK -- Pain Location -- Back (Lumbar) -LK -- Pain Orientation -- Lower -LK -- Pain Descriptors -- Aching -LK -- Pain Frequency -- Intermittent -LK -- Pain Onset -- Ongoing -LK -- Clinical Progression -- Not changed -LK -- Pain Interventions -- Medication (See MAR) -LK -- Response to Interventions -- Full pain relief -LK -- Cognition Orientation Oriented to person -RM -- -- Exercises Straight Leg Raise -- 10 -LK -- Hip Abduction -- 10 -LK -- Knee AROM Short Arc Quad -- 10 -LK -- Ankle Pumps -- 10 -LK -- Supine Supine-Exercises -- Bilateral;Lower extremity -LK -- Reps/Sets -- 10 -LK -- Supine-Motion -- AAROM;PROM -LK -- Supine-Exercise Comments -- Prom LLE, AArom RLE, session shortened as pt's Nurse came in to place IV for pt to go for C-t skan -LK -- Seated Seated-Exercise Comments Attempted seated exercise with pt. She is slow to follow commands. Required AAROM to PROM for L side -RM -- -- Bed Mobility 1 Bed Mobility From 1 Supine -RM -- -- Bed Mobility Type 1 To -RM -- -- Bed Mobility to 1 Edge of bed -RM -- -- Level of Assistance 1 Maximum Assist -RM -- -- Bed Mobility Comments 1 maxA x 2, once EOB pt sat with CGA to Anjali for safety and neglect off the left side -RM -- -- Transfer 1 Transfer From 1 Sit -RM -- -- Transfer Type 1 To -RM -- -- Transfer to 1 Stand -RM -- -- Technique 1 Sit to stand;Stand to sit -RM -- -- Transfer Device 1 No device -RM -- -- Transfer Level of Assistance 1 Moderate Assist -RM -- -- Trials/Comments 1 modA x 2 to stand, pt soiled, sat back down to rest. Stood again when PCT was in room to clean pt as she was standing. -RM -- -- Transfers 2 Transfer From 2 Bed -RM -- -- Transfer Type 2 To -RM -- -- Transfer to 2 Chair with arms -RM -- -- Technique 2 Stand and step;Stand pivot -RM -- -- Transfer Device 2 Wheeled walker -RM -- -- Transfer Level of Assistance 2 Moderate Assist -RM -- -- Trials/Comments 2 ModA 2, pt took a few steps, but then had to be pivoted to chair. -RM -- -- Safe Environment End of Therapy Session Safe Environment End of Therapy Session Patient left in recliner;Chair alarm in place and activated;RN notified;Call light within reach;Overbed table within reach -RM -- -- Plan Plan Continue with current plan -RM Continue with current plan -LK -- Recommendation/Plan PT Recommendation/Plan Inpatient Rehab Facility -RM Inpatient Rehab Facility -LK -- Patient at high risk for Falls;Readmission;Injury due to decreased ability to care for self;Injury due to reduced functional status;Injury at home as patient has not returned to prior level of function - Falls;Readmission;Injury due to decreased ability to care for self -LK -- Recommend Inpatient Rehab/Acute Rehab due to Ability to actively participate in intensive therapy 3hours/day, 5 days/week or 900 minutes per week;Highly motivated to participate in therapy;Not at baseline due to impaired ability to complete ADLs;Impaired ability to complete functional mobility;Likely to return to the community at discharge with support system in place;Requires greater than 25% physical assistance with most mobility tasks;Requires greater than 25% physical assistance with most ADL tasks;Requires multiple therapy disciplines to address functional deficits;Patient and caregiverrequire specialized skilled training due to new level of function/diagnosis;Requires skilled therapy interventions to address neurological deficits - Ability to actively participate in intensive therapy 3 hours/day, 5 days/week or 900 minutes per week;Highly motivated to participate in therapy;Not at baseline due to impaired ability to complete ADLs;Impaired ability to complete functional mobili ty;Requires greater than 25% physical assistance with most mobility tasks;Requires greater than 25%physical assistance with most ADL tasks;Requires multiple therapy disciplines to address functionaldeficits -LK -- PT Frequency during current admission -- 5-7x/wk -LK -- Treatment/Interventions during current admission -- Balance Training;Bed mobility;Endurance training;Functional activity;Functional transfer training;Gait training;Parent/caregiver training and education;Range of motion;Strengthening;Therapeutic activity;Therapeutic exercise;Transfer training;Neuromuscular re-education -LK -- PT Equipment Recommended -- -- to be determined at rehab -LK -- Progress during current admission Progressing toward goals -RM Progressing toward goals -LK -- Time Calculation Start Time 0904 -RM 1502 -LK -- Stop Time 0926 -RM 1516 -LK -- Time Calculation (min) 22 min -RM 14 min -LK -- User Fish (r) = Recorded By, (t) = Taken By, (c) = Cosigned By Initials Name Effective Dates RM Lalita Delgado, NANOTECHNICIAN 11/21/21 - Viola Blackwell, NANOTECHNICIAN 10/16/21 - Melissa Ricardo, NANOTECHNICIAN 11/27/20 - Misty Pelaez, NANOTECHNICIAN 11/23/20 - LK Kimber Baker, NANOTECHNICIAN 11/21/20 - PT Notes Notes from 04/26/24 through 04/28/24 No notes of this type exist for this encounter. , TRUCK CHAUFFEUR Eval and Treat Last 72 Hours TRUCK CHAU[facility] Evaluation No documentation. TRUCK CHAUFFEUR Treatment No documentation. Clinical Swallow Study No documentation. TRUCK [facility] Notes Notes from 04/26/24 through 04/28/24 No notes of this type exist for this encounter. * Plan of Care - Andrea De Leon RN - 04/28/2024 12:03 AM CDT Goals: Clinical Goals for the Shift: increase in strength Retirement Patient Centered Goal for Treatment: increase in strength Summary: Vital signs within normal range. Less yelling and screaming. Bed alarm remains on. Call light remains within reach. Problem: Activity Goal: Capacity to carry out activities will improve Outcome: Progressing Flowsheets (Taken 04/27/2024 1000 by Patsy Benson RN) Capacity to carry out activites will improve: Implement activity progression plan Goal: Mobility will improve Outcome: Progressing Flowsheets (Taken 04/27/2024 1000 by Patsy Benson RN) Mobility will improve: Provide assistance with mobility Problem: Coping Goal: Ability to verbalize positive feelings about self will improve Outcome: Progressing Flowsheets (Taken 04/27/2024 1000 by Patsy Benson RN) Ability to verbalize positive feelings about self will improve: Support identification of positive aspects of self Problem: Nutritional Goal: Ability to chew and swallow food without choking will improve Outcome: Progressing Flowsheets (Taken 04/27/2024 1000 by Patsy Benson RN) Ability to chew and swallow food without choking will improve: Encourage proper swallowing techniques Goal: Dietary intake will improve Outcome: Progressing Flowsheets (Taken 04/27/2024 1000 by Patsy Benson RN) Dietary intake will improve: Collaborate with dietitian Problem: Physical Regulation Goal: Ability to maintain clinical measurements within normal limits will improve Outcome: Progressing Flowsheets (Taken 04/27/2024 1000 by Patsy Benson RN) Ability to maintain clinical measurements within normal limits will improve: Monitor cardiovascularstatus Problem: Respiratory Goal: Ability to state ways to decrease risk of aspiration will improve Outcome: Progressing Flowsheets (Taken 04/27/2024 1000 by Patsy Benson RN) Ability to state ways to decrease risk of aspiration will improve: Monitor signs and symptoms of aspiration Problem: Skin Integrity Goal: Risk for impaired skin integrity will decrease Outcome: Progressing Flowsheets (Taken 04/27/2024 1000 by Patsy Benson RN) Risk for impaired skin integrity will decrease: Implement precautions to protect skin integrity Problem: Tissue Perfusion Goal: Cerebral tissue perfusion will improve Outcome: Progressing Flowsheets (Taken 04/27/2024 1000 by Patsy Benson RN) Cerebral tissue perfusion will improve: Assess signs and symptoms of increased intracranial pressure Goal: Neurologic status will improve Outcome: Progressing Flowsheets (Taken 04/27/2024 1000 by Patsy Benson RN) Neurologic status will improve: Monitor neurologic status Problem: Swallowing Goal: Patient's ability to maintain safety and efficiency of swallowing without signs of aspirationwill improve Outcome: Progressing Flowsheets (Taken 04/27/2024 1000 by Patsy Benson RN) Patient's ability to maintain safety and effiency of swallowing without signs of aspiration will improve: Monitor signs and symptoms of aspiration Problem: Bladder/Voiding Goal: Patient will demonstrate the ability to take care of indwelling catheter Outcome: Progressing Flowsheets (Taken 04/27/2024 1000 by Patsy Benson RN) Patient will demonstrate the ability to take care of indwelling catheter: Monitor intake and output Problem: Cognitive Goal: Patient will achieve stable or improved cognitive status Outcome: Progressing Flowsheets (Taken 04/27/2024 1000 by Patsy Benson RN) Patient will achieve stable or improved cognitive status: Assess for and report changes in cognitive status Problem: Safety Goal: Patient will demonstrate safety requirements appropriate to situation/environment Outcome: Progressing Flowsheets (Taken 04/27/2024 1000 by Patsy Benson RN) Patient will demonstrate safety requirements appropriate to situation/environment: Use gait belt during all transfers Problem: Infection Goal: Patient will have absence of infection during hospitalization Outcome: Progressing Flowsheets (Taken 04/27/2024 1000 by Patsy Benson RN) Patient will have absence of infection during hospitalization: Asess and monitor for signs and symptoms of infection Problem: Fall Risk Goal: Patient will remain free from falls Outcome: Progressing Flowsheets (Taken 04/27/2024 1000 by Patsy Benson RN) Patient will remain free from falls: Assess risk factors for falls Goal: Patient's ability to state ways to decrease the risk of falls will improve Outcome: Progressing Flowsheets (Taken 04/27/2024 1000 by Patsy Benson RN) Patient's ability to state ways to decrease the risk of falls will improve: Teach fall prevention measures Goal: Patient will remain free from injury from falls Outcome: Progressing Flowsheets (Taken 04/27/2024 1000 by Patsy Benson RN) Patient will remain free from injury from falls: Provide safe environment for activities of daily living in hospital environment Problem: Lack of Knowledge Goal: Ability to develop a pain control plan will improve Outcome: Progressing Flowsheets (Taken 04/27/2024 1000 by Patsy Benson RN) Ability to develop a pain control plan will improve: Explain causes of pain and how long pain can be expected to last Problem: Medication Goal: Satisfaction with pain management medication regimen will improve Outcome: Progressing Flowsheets (Taken 04/27/2024 1000 by Patsy Benson RN) Satisfaction with pain management medication regimen will improve: Assess satisfaction with pain management regimen Problem: Sensory Goal: Ability to identify factors that increase pain levels will improve while working to decrease the patient's pain levels Outcome: Progressing Flowsheets (Taken 04/27/2024 1000 by Patsy Benson RN) Ability to identify factors that increase pain levels will improve while working to decrease patients pain levels: Assess pain status Problem: Coping Goal: Ability to cope will improve Outcome: Progressing Flowsheets (Taken 04/27/2024 1000 by Patsy Benson RN) Ability to cope will Improve: Encourage vebalization of feelings surrounding pain Problem: Health Behavior Goal: Identification of resources available to assist in meeting health care needs will improve Outcome: Progressing Flowsheets (Taken 04/27/2024 1000 by Patsy Benson RN) Identification of resources available to assist in meeting health care needs will improve: Collaborate with pain management Problem: Cardiovascular Goal: Maintains optimal cardiac output and hemodynamic stability Outcome: Progressing Flowsheets (Taken 04/27/2024 1000 by Patsy Benson RN) Maintain optimal cardiac output and hemodynamic Stability: Monitor vital signs, rhythm, and trends Goal: Absence of cardiac dysrhythmias or at baseline Outcome: Progressing Flowsheets (Taken 04/27/2024 1000 by Patsy Benson RN) Absence of cardiac dysrhythmias or at baseline: Continuous cardiac monitoring, monitor vital signs,obtain 12 lead EKG if indicated Problem: Genitourinary Goal: Absence of urinary retention Outcome: Progressing Flowsheets (Taken 04/27/2024 1000 by Patsy Benson RN) Absence of urinary retention: Assess patient???s ability to void and empty bladder Goal: Urinary catheter remains patent Outcome: Progressing Flowsheets (Taken 04/27/2024 1000 by Patsy Benson RN) Urinary catheter remains patent: Assess need for a larger catheter size or a 3- way catheter for continuous bladder irrigation Problem: Discharge Planning Goal: Understanding discharge needs will improve Outcome: Progressing Flowsheets (Taken 04/27/2024 1000 by Patsy Benson RN) Understanding of discharge needs will improve: Discuss information regarding discharge instructions Problem: Skin Integrity Impairment Risk Goal: Mobility will improve Outcome: Progressing Flowsheets (Taken 04/27/2024 1000 by Patsy Benson RN) Mobility will improve: Encourage turning and repositioning, assist as needed Goal: Understanding of ways to prevent future skin breakdown will improve Outcome: Progressing Flowsheets (Taken 04/27/2024 1000 by Patsy Benson RN) Understanding of ways to prevent future skin breakdown will improve: Discuss treatments to protect skin integrity Goal: Nutritional status will improve Outcome: Progressing Flowsheets (Taken 04/27/2024 1000 by Patsy Benson RN) Nutritional status will improve: Assess nutritional status Goal: Risk for impaired skin integrity will decrease Outcome: Progressing Flowsheets (Taken 04/27/2024 1000 by Patsy Benson RN) Risk for impaired skin integrity will decrease: Identify risk factors for impaired skin integrity and/or pressure injuries Problem: Fall Risk Goal: Ability to state ways to decrease the risk of falls will improve Outcome: Progressing Flowsheets (Taken 04/27/2024 1000 by Patsy Benson RN) Ability to state ways to decrease the risk of falls will improve: Teach fall prevention measures Goal: Will remain free from falls Outcome: Progressing Flowsheets (Taken 04/27/2024 1000 by Patsy Benson RN) Will remain free from falls: Assess risk factors for falls Goal: Will remain free from injury from falls Outcome: Progressing Flowsheets (Taken 04/27/2024 1000 by Patsy Benson RN) Will remain free from injury from falls: Provide safe environment for conduction of activities of daily living in hospital environment Problem: Neurosensory Goal: Achieves stable or improved neurological status Outcome: Progressing Flowsheets (Taken 04/27/2024 1000 by Patsy Benson RN) Achieves Stable or Improved Neurological Status: Assess for and report changes in neurological status Goal: Achieves maximal functionality and self care Outcome: Progressing Flowsheets (Taken 04/27/2024 1000 by Patsy Benson RN) Achieves maximal functionality and self care: Monitor swallowing and airway patency with patient fatigue and changes in neurological status Problem: Respiratory Goal: Achieves optimal ventilation and oxygenation Outcome: Progressing Flowsheets (Taken 04/27/2024 1000 by Patsy Benson RN) Achieves optimal ventilation and oxygenation: Assess for changes in respiratory status Problem: Gastrointestinal Goal: Minimal or absence of nausea and vomiting Outcome: Progressing Flowsheets (Taken 04/27/2024 1000 by Patsy Benson RN) Minimal or absence of nausea and vomiting: Assess gastrointestinal status Goal: Maintains or returns to baseline bowel function Outcome: Progressing Flowsheets (Taken 04/27/2024 1000 by Patsy Benson RN) Maintains or returns to baseline bowel function: Assess bowel function, evaluate bowel sounds and signs of abdominal distention Problem: Infection Goal: Absence of infection during hospitalization Outcome: Progressing Flowsheets (Taken 04/27/2024 1000 by Patsy Benson RN) Absence of infection during hospitalization: Assess and monitor for signs and symptoms of infection Problem: Musculoskeletal Goal: Return mobility to safest level of function Outcome: Progressing Flowsheets (Taken 04/27/2024 1000 by Patsy Benson RN) Return mobility to safest level of function: Obtain PT/OT consults as needed Goal: Return ADL status to a safe level of function Outcome: Progressing Flowsheets (Taken 04/27/2024 1000 by Patsy Benson RN) Return activities of daily living status to a safe level of function: Obtain PT/OT consults as needed Goal: Ability to perform activities at highest level will improve Outcome: Progressing Flowsheets (Taken 04/27/2024 1000 by Patsy Benson RN) Ability to perform activities at highest level will improve: Provide diversional activities Goal: Mobility, ROM and muscle strength will improve Outcome: Progressing Flowsheets (Taken 04/27/2024 1000 by Patsy Benson RN) Mobility, ROM and muscle strength will improve: Perform passive and/or assist with range of motion Problem: Skin/Tissue Integrity Goal: Skin integrity remains intact Outcome: Progressing Flowsheets (Taken 04/27/2024 1000 by Patsy Benson RN) Skin integrity remains intact: Assess and document risk factors for pressure injury development Goal: Oral mucous membranes remain intact Description: Outcome: Progressing Flowsheets (Taken 04/27/2024 1000 by Patsy Benson RN) Oral mucous membranes remain intact: Assess oral mucosa and hygiene practices * [facility] Note - Ning Gordon RN - 04/27/2024 2:15 PM CDT Images from the original note were not included. Patient Information: OT Eval and Treat Last 72 Hours OT Evaluation No documentation. OT Treatment Row Name 04/27/24 0923 04/26/24 0946 04/25/24 0851 04/22/24 0944 04/21/24 0912 Session Type Treatment -KK Treatment -KK Treatment -LC Treatment -KK Treatment -KK OT Received On 04/27/24 -KK 04/26/24 -KK 04/25/24 -LC -- 04/21/24 -KK Safe Environment Arm band checked;Patient found in supine;Gait belt utilized for all out of bed mobility -KK Arm band checked;Patient found in supine;Gait belt utilized for all out of bed mobility -KK Arm band checked;Patient found in supine -LC -- Arm band checked;Patient found in supine;Gait beltutilized for all out of bed mobility -KK Subjective Agreeable to Therapy -KK Agreeable to Therapy -KK Agreeable to Therapy -LC -- Agreeable to Therapy -KK Subjective Comment Hello -KK I am not hungry -KK I am old, I can't do this -LC -- I don't know where I am -KK OT Missed Visit Reason -- -- -- Procedure/testing/appointment Attempted x2 this am (944, 1050), on both attempts pt off floor for SHIVAM. -KK -- Family/Caregiver Present Yes Spouse -KK -- -- -- Yes Spouse at bedside -KK Precautions -- -- Bed/Chair Alarm;Fall risk -LC -- -- Pain Assessment No/denies pain -KK No/denies pain -KK No/denies pain -LC -- No/denies pain -KK Static Sitting-Balance Support Bilateral upper extremity supported -KK Bilateral upper extremity supported;Feet supported -KK Bilateral upper extremity supported;Feet supported -LC -- -- Static Sitting-Sitting Surface Bed -KK Bed -KK Bed -LC -- -- Static Sitting-Level of Assistance Minimum assistance -KK Contact guard;Minimum assistance -KK Maximum assistance -LC -- -- Static Sitting-Comment/# of Minutes Pt required cueing to lean to R due to pt leaning to L -KK Pt able to sit EOB x3 min -KK -- pt presented with left posterior lean this date, -LC -- -- Dynamic Sitting-Balance Support -- -- Feet supported;Unilateral upper extremity supported -LC -- -- Dynamic Sitting-Balance -- -- Lateral lean;Forward lean;Reaching for objects;Trunk control activities -LC -- -- Dynamic Sitting-Sitting Surface -- -- Bed -LC -- -- Dynamic Sitting-Level of Assistance -- -- Maximum assistance -LC -- -- Dynamic Sitting-Comments -- -- pt with poor dynamic sitting balance this date. - LC -- -- Static Standing-Balance Support Bilateral upper extremity supported -KK -- -- -- Bilateral upper extremity supported -KK Static Standing-Standing Surface Floor -KK -- -- -- Floor -KK Static Standing-Level of Assistance -- MOD assist x2 -KK -- -- -- -- MOD assist x2 -KK Static Standing-Comment/# of Minutes Pt able to stand approx 15 seconds -KK -- -- -- Pt able to stand EOB x45 seconds. Pt leans to L and required cueing to fix posture -KK ADL Comments Pt able to wash her face with SBA and MOD cueing to wash all parts of her face. -KK Ptrequired MAX assist for pericare as well as adult diaper mgmt. MAX assist to don socks. -KK -- -- Pt required MAX assist to don socks. -KK Grooming: Where assessed -- -- Edge of bed -LC -- -- Grooming: Level of assistance -- -- Moderate Assist;Moderate Verbal Cues -LC -- -- Grooming: Assistance with -- -- Brushing hair;Reaching all areas of head/face;Attending to task pt required Mod A to reach all areas of head, and mod verbal cues to attend to task this date. -LC -- -- Bed Mobility From 1 Rolling right -KK Rolling right -KK Supine -LC -- Supine -KK Bed Mobility Type 1 To and from -KK To and from -KK To and from -LC -- To -KK Bed Mobility to 1 Rolling left -KK Rolling left -KK Edge of bed -LC -- Edge of bed -KK Level of Assistance 1 Maximum Assist -KK -- DEP x2 -KK Dependent x1-2, pt did not attempt to assistwith bed mobility this date stating, I'm too old to do this, I just can't -LC -- -- MOD assist x2-KK Bed Mobility From 2 Supine -KK Supine -KK -- -- -- Bed Mobility Type 2 To -KK To -KK -- -- -- Bed Mobility to 2 Edge of Bed -KK Edge of Bed -KK -- -- -- Level of Assistance 2 -- DEP x2 -KK -- DEP x2 -KK -- -- -- Transfer From 1 Sit -KK Sit -KK -- -- Sit -KK Transfer Type 1 To and from -KK To and from -KK -- -- To and from -KK Transfer to 1 Stand -KK Stand -KK -- -- Stand -KK Transfer Device 1 No device;Hand held assist -KK No device;Hand held assist -KK -- -- Hand held assist;No device -KK Transfer Level of Assistance 1 -- MOD assist x2 -KK -- MAX assist x2 -KK -- -- -- MOD assist x2 -KK Transfer From 2 Bed -KK Bed -KK -- -- Bed -KK Transfer Type 2 To -KK To -KK -- -- To -KK Transfer to 2 Chair with arms -KK Chair with arms -KK -- -- Chair with arms -KK Technique 2 Stand pivot -KK Stand pivot -KK -- -- Stand pivot -KK Transfer Device 2 No device;Hand held assist -KK No device;Hand held assist -KK -- -- No device;Hand held assist -KK Transfer Level of Assistance 2 -- MAX assist x2 -KK -- MAX assist x2 -KK -- -- -- MOD assist x2 -KK Trials/Comments 2 -- Pt able to bear weight through LEs but unable to advance feet -KK -- -- -- Other Exercise PROM, LUE, in all planes and joints of movement. -KK PROM, LUE, in all planes and joints of movement. -KK -- -- PROM, LUE in all planes and joints of movement. Pt shows active grasp/release of L hand. -KK Cognition Comments -- Pt unable to answer any orientation ?s this session. 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;Decreased recall of recent events;Decreased recall of biographical information -KK Current communication -- Impaired - Global Aphasia -KK -- -- Appears Intact -KK Orientation -- Oriented to person -KK Oriented to person -LC -- Oriented to person -KK Following Commands -- Unable to follow commands -KK -- -- Follows one step commands with repetition-KK Safety Judgment -- Unable to assess -KK -- -- -- Awareness of Errors -- Unable to assess -KK -- -- -- Endurance Tolerates 10 - 20 min activity with multiple rests -KK Tolerates 10 - 20 min activity with multiple rests -KK -- -- Tolerates 10 - 20 min activity with multiple rests -KK Comments Had pt scan room for various things focusing on items to her L. Pt required verbal and visual cueing on looking to far left as well as bringing eyes to far left. Had pt perform dynamic reaching tasks while sitting up in chair using RUE. Pt able to perform task with MIN cueing for directionfollow and cueing to reach L of midline. -KK -- Pt participated in visual tracking activity. Pt able to track from midline to right side, however unable to track from midline to left side. -LC -- Pt requires cueing on looking past midline to L. Head will move to Lside but eyes remain at midline. Ptleans to L side and requires verbal and tactile cueing to achieve correct erect posture. -KK Safe Environment End of Therapy Session Patient left in recliner;Chair alarm in place and activated;RN notified;Call light within reach;Overbed table within reach Spouse at bedside -KK Patient left in recliner;Chair alarm in place and activated;RN notified;Call light within reach;Overbed table within reach -KK Patient left supine in bed;Bed alarm in place and activated;Call light within reach;Overbed table within reach -LC -- Patient left in recliner;Chair alarm in place and activated;RN notified;Call light within reach;Overbed table within reach -KK Prognosis Fair -KK Fair -KK Fair -LC -- Fair -KK Problem List -- -- Decreased endurance;Decreased balance;Decreased functional mobility;Decreased IADL independence;Decreased ADL independence - -- -- Plan Continue with current plan -KK Continue with current plan -KK Continue with current plan -LC Continue with current plan -KK Continue with current plan -KK OT Recommendation Custodial Facility -KK Custodial Facility -KK Custodial Facility - -- Custodial Facility -KK Patient at high risk for Falls;Readmission;Injury due to decreased ability to care for self;Injury due to reduced functional status;Injury at home as patient has not returned to prior level of function;Injury due to impaired cognition;Injury due to balance deficits -KK Falls;Readmission;Injury due to decreased ability to care for self;Injury due to reduced functional status;Injury due to balance deficits;Injury at home as patient has not returned to prior level of function;Injury due to impaired cognition -KK Falls;Readmission;Injury due to decreased ability to care for self;Injury due to reduced functional status;Injury due to impaired cognition;Injury due to balance deficits;Injury at home as patient has not returned to prior level of function;Developing impaired skin integrity;Cognitive decline due to decreased social participation;Prolonged dependence for self care tasks - -- Falls ;Readmission;Injury due to decreased ability to care for self;Injury due to reduced functional status;Injury due to balance deficits;Injury at home as patient has not returned to prior level of function;Injury due to impaired cognition - Recommend SNF due to Risk of injury at home;Unable to safely care for self in the home;Skilled therapy needed to address care for self in the home;Skilled therapy needed to address functional deficits;Skilled therapy needed for patient to return to prior level of independence -KK Risk of injury at home;Unable to safely care for self in the home;Skilled therapy needed to address care for self in the home;Skilled therapy needed to address functional deficits;Skilled therapy needed for patient to return to prior level of independence -KK Risk of injury at home;Unable to safely care for self in the home;Skilled therapy needed to address care for self in the home;Skilled therapy needed to address functional deficits;Skilled therapy needed for patient to return to prior level of independence - -- Risk of injury at home;Unable to safely care for self in the home;Skilled therapy needed to address care for self in the home;Skilled therapy needed to address functional deficits;Skilled therapyneeded for patient to return to prior level of independence -KK Progress during current admission Slow progress, cognitive deficits -KK Slow progress, cognitive deficits -KK Slow progress, cognitive deficits -LC -- Progressing toward goals -KK Start Time 0922 -KK 0945 -KK 0851 -LC -- 0912 -KK Stop Time 0946 -KK 1008 -KK 0914 -LC -- 0932 -KK Time Calculation (min) 24 min -KK 23 min -KK 23 min -LC -- 20 min -KK Reason for interruption Co Tx with Melissa Dobbins, NANOTECHNICIAN -KK Co Tx with Melissa Dobbins, NANOTECHNICIAN -KK -- -- Co Tx with SANDI Bentley User Fish (r) = Recorded By, (t) = Taken By, (c) = Cosigned By Initials Name Effective Dates LC Bety Tyler COTA 02/01/22 - Annika Elise COTA 07/10/21 - OT Notes Notes from 04/25/24 through 04/27/24 No notes of this type exist for this encounter. , PT Eval and Treat Last 72 Hours PT Evaluation No documentation. PT TREATMENT (Last 168 Hours) PT Treatment Row Name 04/27/24 0922 04/26/24 0945 04/25/24 0852 04/24/24 1055 04/23/24 0904 PT Last Visit Session Type Treatment -AG Treatment -AG Treatment -DM Treatment -MH Treatment -RM Safe Environment Arm band checked;Patient found in supine;Session completed bedside;Gait belt utilized for all out of bed mobility -AG Arm band checked;Patient found in supine;Session completed bedside;Gait belt utilized for all out of bed mobility -AG Arm band checked;Patient found in supine;Session completed bedside -DM Arm band checked -MH Arm band checked;Patient found in supine;Gait belt utilized for all out of bed mobility -RM Subjective Agreeable to Therapy -AG Agreeable to Therapy -AG Agreeable to Therapy -DM Agreeable to Therapy -MH Agreeable to Therapy -RM Subjective Comment -- -- -- -- Pt feeling okay. -RM Family/Caregiver Present Yes -AG Yes -AG -- Yes son - Yes - Precautions Precautions Bed/Chair Alarm;Fall risk -AG Bed/Chair Alarm;Fall risk -AG Bed/Chair Alarm;Fall risk -DM Bed/Chair Alarm - -- Precaution Comments -- -- -- tele - alarm - tele, alarm - Activity Tolerance Endurance -- -- -- Tolerates 10 - 20 min activity with multiple rests - -- Pain Assessment Pain Assessment No/denies pain - No/denies pain -AG No/denies pain -DM -- No/denies pain - Pain Score -- -- -- 4 - -- Pain Type -- -- -- Chronic pain - -- Pain Location -- -- -- Back (Lumbar) - -- Pain Descriptors -- -- -- Aching - -- Cognition Arousal/Alertness Alert - Alert - Alert - Alert - -- Current communication Impaired - Global Aphasia - -- -- -- -- Orientation Oriented to person -AG Oriented to person - Oriented to person - -- Oriented to person -RM Safety Judgment -- -- -- Decreased awareness of need for assistance - -- Insight -- -- -- Decreased awareness of deficits - -- Compliance/Behavior -- -- Easy to engage - Easy to engage - -- Static Sitting Balance Static Sitting-Balance Support -- -- Bilateral upper extremity supported;Feet supported -DM -- -- Static Sitting-Sitting Surface -- -- Bed -DM -- -- Static Sitting-Level of Assistance -- -- Maximum assistance - -- -- Static Sitting-Comment/# of Minutes -- -- 15 minutes with L lat/post lean - -- -- Dynamic Sitting Balance Dynamic Sitting-Balance Support -- -- Unilateral upper extremity supported;Feet supported -DM -- -- Dynamic Sitting-Sitting Surface -- -- Bed -DM -- -- Dynamic Sitting-Level of Assistance -- -- Maximum assistance -DM -- -- Seated Seated-Exercises Lower extremity -AG Lower extremity -AG -- -- -- Reps/Sets 10 -AG 10 -AG -- -- -- Seated-Motion AROM;AAROM;PROM -AG AROM;AAROM;PROM -AG -- -- -- Seated-Exercise Comments L was PROM, R was A,AA to PROM -AG L was PROM, R was A,AA to PROM -AG -- -- Attempted seated exercise with pt. She is slow to follow commands. Required AAROM to PROM for L side -RM Bed Mobility 1 Bed Mobility From 1 Rolling right -AG Rolling right -AG Supine -DM Supine -MH Supine -RM Bed Mobility Type 1 To and from -AG To and from -AG To and from -DM To -MH To -RM Bed Mobility to 1 Rolling left -AG Rolling left -AG Edge of bed -DM Edge of bed -MH Edge of bed -RM Level of Assistance 1 Maximum Assist;Minimal verbal cues -AG Dependent +2 -AG Dependent -DM Moderate Assist -MH Maximum Assist -RM Bed Mobility Comments 1 -- -- 1-2 -DM mod plus two -MH maxA x 2, once EOB pt sat with CGA to Anjali for safety and neglect off the left side -RM Bed Mobility 2 Bed Mobility From 2 Supine -AG Supine -AG -- -- -- Bed Mobility Type 2 To -AG To -AG -- -- -- Bed Mobility to 2 Edge of Bed -AG Edge of Bed -AG -- -- -- Level of Assistance 2 Dependent;Minimal verbal cues +2 -AG Dependent +2 -AG -- -- -- Transfer 1 Transfer From 1 Sit -AG Sit -AG -- Sit -MH Sit -RM Transfer Type 1 To and from -AG To and from -AG -- To -MH To -RM Transfer to 1 Stand -AG Stand -AG -- Stand -MH Stand -RM Technique 1 -- -- -- -- Sit to stand;Stand to sit -RM Transfer Device 1 No device;Hand held assist -AG No device;Hand held assist -AG -- No device -MH Nodevice -RM Transfer Level of Assistance 1 Moderate verbal cues;Moderate Assist +2 -AG Maximum Assist;Moderate verbal cues +2 -AG -- Maximum Assist -MH Moderate Assist -RM Trials/Comments 1 -- -- did not attempt due to poor sitting balance and safety concerns. -DM pt wasnot able to advance her feet to chair - pivot transfer required -MH modA x 2 to stand, pt soiled, sat back down to rest. Stood again when PCT was in room to clean pt as she was standing. -RM Transfers 2 Transfer From 2 Bed -AG Bed -AG -- Bed -MH Bed -RM Transfer Type 2 To -AG To -AG -- To -MH To -RM Transfer to 2 Chair with arms -AG Chair with arms -AG -- Chair with arms -MH Chair with arms -RM Technique 2 Stand pivot -AG Stand pivot -AG -- -- Stand and step;Stand pivot -RM Transfer Device 2 No device;Hand held assist -AG No device;Hand held assist -AG -- -- Wheeled walker -RM Transfer Level of Assistance 2 Maximum Assist;Moderate verbal cues +2 -AG Maximum Assist;Moderate verbal cues +2 -AG -- Moderate Assist;Maximum Assist -MH Moderate Assist -RM Trials/Comments 2 Pt sat EOB with sba to min assist for balance. Pt held onto the rails and would breifly let go and still keep balance for a few seconds before leaning to the L and back. Pt stood and attempted to take a step but was not able. Pt then sat to rest and then stood again and pivoted tothe chair. Pt performed ex's in chair needed vc's and tactile cues. Alarm on and waffle cushion in chair. -AG Pt was soiled cleaned and put depends on. Pt then sat EOB with cga-min for balance and held onto the rail. Sat for about 3 min then stood and was able to bear the weight for the pivot transfer. Alarm and waffle cushion -AG -- -- ModA 2, pt took a few steps, but then had to be pivoted to chair. -RM Safe Environment End of Therapy Session Safe Environment End of Therapy Session Patient left in recliner;Chair alarm in place and activated;Call light within reach;Overbed table within reach -AG Patient left in recliner;Chair alarm in place and activated;Call light within reach;Overbed table within reach -AG Patient left supine in bed;Bed alarm in place and activated;Call light within reach;Overbed table within reach;Bed in lowest position with wheels locked -DM -- Patient left in recliner;Chair alarm in place and activated;RN notified;Call light within reach;Overbed table within reach -RM Assessment Prognosis -- -- -- Fair -MH -- Problem List -- -- -- Gait deviations;Decreased strength;Impaired balance;Decreased endurance - -- Plan Plan Continue with current plan -AG Continue with current plan -AG -- Continue with current plan -MH Continue with current plan -RM Recommendation/Plan PT Recommendation/Plan Custodial Facility [facility] the change to snf - AG Inpatient Rehab Facility -AG Inpatient Rehab Facility -DM Inpatient Rehab Facility -MH Inpatient Rehab Facility -RM Patient at high risk for Falls;Readmission;Injury due to decreased ability to care for self -AG Falls;Readmission;Injury due to decreased ability to care for self -AG Falls;Readmission;Injury due to decreased ability to care for self -DM -- Falls;Readmission;Injury due to decreased ability to care for self;Injury due to reduced functional status;Injury at home as patient has not returned to priorlevel of function -RM Recommend Inpatient Rehab/Acute Rehab due to -- Ability to actively participate in intensive therapy 3 hours/day, 5 days/week or 900 minutes per week;Highly motivated to participate in therapy;Not atbaseline due to impaired ability to complete ADLs;Impaired ability to complete functional mobility;Likely to return to the community at discharge with support system in place;Requires greater than 25% physical assistance with most mobility tasks;Requires greater than 25% physical assistance with most ADL tasks;Requires multiple therapy disciplines to address functional deficits -AG Ability to actively participate in intensive therapy 3 hours/day, 5 days/week or 900 minutes per week;Highly motivated to participate in therapy;Not at baseline due to impaired ability to complete ADLs;Impaired ability to complete functional mobility;Likely to return to the community at discharge with support system in place;Requires greater than 25% physical assistance with most mobility tasks;Requires greaterthan 25% physical assistance with most ADL tasks;Requires multiple therapy disciplines to address functional deficits -DM -- Ability to actively participate in intensive therapy 3 hours/day, 5 days/week or 900 minutes per week;Highly motivated to participate in therapy;Not at baseline due to impaired ability to complete ADLs;Impaired ability to complete functional mobility;[facility] system in place;Requires greater than 25% physical assistance with most mobility tasks;Requires greater than 25% physical assistance with most ADL tasks;Requires multiple therapy disciplines to address functional deficits;Patient and caregiver require specializedskilled training due to new level of function/diagnosis;Requires skilled therapy interventions to address neurological deficits -RM Recommend SNF due to Risk of injury at home;Skilled therapy needed to address care for self in the home;Unable to safely care for self in the home;Skilled therapy needed to address functional deficits;Skilled therapy needed for patient to return to prior level of independence -AG -- -- -- -- Progress during current admission -- -- -- -- Progressing toward goals -RM Time Calculation Start Time 09 -AG 0945 -AG 0851 -DM 1055 - 0904 -RM Stop Time 0946 -AG 1008 -AG 0914 -DM 1115 - 0926 -RM Time Calculation (min) 24 min -AG 23 min -AG 23 min -DM 20 min - 22 min -RM Row Name 04/22/24 1502 04/22/24 1022 04/21/24 0911 PT Last Visit Session Type Treatment -LK Treatment -LK Treatment -LK Safe Environment Arm band checked;Patient found in supine;Session completed bedside -LK -- Arm bandchecked;Patient found in supine;Session completed bedside;Gait belt utilized for all out of bed mobility -LK Subjective Agreeable to Therapy -LK -- Agreeable to Therapy -LK Subjective Comment per Nurse Abdalla ok to work with pt this afternoon for bed level activity. nusring needing to place IV for c-t skan this afternoon. -LK pt off floor for SHIVAM, pt unable to have pain meds until after 2pm per Nurse Abdalla, hold therapy until after 2pm today, pt may participate if willing and able after pain meds given. -LK pt reports I feel like I need to poop -LK PT Missed Visit Reason -- Procedure/testing/appointment -LK -- Rehab Only - Missed Reasons - All Disciplines -- Procedures/testing -LK -- Family/Caregiver Present No -LK -- Yes -LK Current Functional Status PT Functional Mobility -- -- spouse -LK Precautions Precautions Bed/Chair Alarm;Fall risk -LK -- Bed/Chair Alarm;Fall risk -LK Precaution Comments tele,IV access -LK -- tele,fernandez,IV access -LK Activity Tolerance Endurance Tolerates 10 - 20 min activity with multiple rests -LK -- Tolerates 10 - 20 min activity with multiple rests -LK Activity Tolerance Comments -- -- co-treat with ERWIN Roblero -LK Pain Assessment Pain Assessment 0-10 -LK -- 0-10 -LK Dickinson-Reyna FACES Pain Rating 4 -LK -- 0 -LK Pain Score 4 -LK -- -- Patient's Stated Pain Goal No pain -LK -- -- Pain Type Chronic pain -LK -- -- Chronic Pain Precipitating Factors At Rest -LK -- -- Chronic Pain Alleviating Factors Medication -LK -- -- Pain Location Back (Lumbar) -LK -- -- Pain Orientation Lower -LK -- -- Pain Descriptors Aching -LK -- -- Pain Frequency Intermittent -LK -- -- Pain Onset Ongoing -LK -- -- Clinical Progression Not changed -LK -- -- Pain Interventions Medication (See MAR) -LK -- -- Response to Interventions Full pain relief -LK -- -- Exercises Straight Leg Raise 10 -LK -- -- Hip Abduction 10 -LK -- -- Knee AROM Short Arc Quad 10 -LK -- -- Ankle Pumps 10 -LK -- -- Supine Supine-Exercises Bilateral;Lower extremity -LK -- -- Reps/Sets 10 -LK -- -- Supine-Motion AAROM;PROM -LK -- -- Supine-Exercise Comments Prom LLE, AArom RLE, session shortened as pt's Nurse came in to place IV for pt to go for C-t skan -LK -- -- Bed Mobility 1 Bed Mobility From 1 -- -- Supine -LK Bed Mobility Type 1 -- -- To -LK Bed Mobility to 1 -- -- Edge of bed -LK Level of Assistance 1 -- -- Moderate Assist;Moderate verbal cues;Moderate tactile cues -LK Bed Mobility Comments 1 -- -- x2 -LK Transfer 1 Transfer From 1 -- -- Bed -LK Transfer Type 1 -- -- To and from -LK Transfer to 1 -- -- Sit -LK Technique 1 -- -- Sit to stand -LK Transfer Device 1 -- -- No device;Hand held assist -LK Transfer Level of Assistance 1 -- -- Moderate Assist;Minimal verbal cues;Minimal tactile cues -LK Trials/Comments 1 -- -- x2 assist, pt's CLEMENTINA flacid -LK Transfers 2 Transfer From 2 -- -- Bed -LK Transfer Type 2 -- -- To -LK Transfer to 2 -- -- Chair with arms -LK Technique 2 -- -- Stand pivot -LK Transfer Device 2 -- -- No device;Hand held assist -LK Transfer Level of Assistance 2 -- -- Moderate Assist;Moderate verbal cues;Moderate tactile cues -LK Trials/Comments 2 -- -- x2 assist -LK Safe Environment End of Therapy Session Safe Environment End of Therapy Session -- -- Patient left in recliner;Chair alarm in place and activated;Call light within reach;Overbed table within reach;Bed in lowest position with wheels locked -LK Assessment Prognosis -- -- Fair -LK Problem List -- -- Gait deviations;Decreased strength;Decreased range of motion;Decreased endurance;Impaired balance;Decreased mobility;Impaired judgement;Decreased safety awareness -LK Barriers to Discharge -- -- Current Mobility Status;Decreased caregiver support;Cognition;Decreasedsafety awareness -LK Plan Plan Continue with current plan -LK -- Continue with current plan -LK Recommendation/Plan PT Recommendation/Plan Inpatient Rehab Facility -LK -- Inpatient Rehab Facility - Patient at high risk for Falls;Readmission;Injury due to decreased ability to care for self -LK -- Falls;Readmission;Injury due to decreased ability to care for self -LK Recommend Inpatient Rehab/Acute Rehab due to Ability to actively participate in intensive therapy 3hours/day, 5 days/week or 900 minutes per week;Highly motivated to participate in therapy;Not at baseline due to impaired ability to complete ADLs;Impaired ability to complete functional mobility;Requires greater than 25% physical assistance with most mobility tasks;Requires greater than 25% physical assistance with most ADL tasks;Requires multiple therapy disciplines to address functional deficits -LK -- Ability to actively participate in intensive therapy 3 hours/day, 5 days/week or 900 minutes per week;Highly motivated to participate in therapy;Not at baseline due to impaired ability to complete ADLs;Impaired ability to complete functional mobility;Likely to return to the community at discharge with support system in place;Requires greater than 25% physical assistance with most mobility tasks;Requires greater than 25% physical assistance with most ADL tasks;Requires multiple therapy disciplines to address functional deficits;Patient and caregiver require specialized skilled training due to new level of function/diagnosis -LK PT Frequency during current admission 5-7x/wk -LK -- 5-7x/wk -LK Treatment/Interventions during current admission Balance Training;Bed mobility;Endurance training;Functional activity;Functional transfer training;Gait training;Parent/caregiver training and education;Range of motion;Strengthening;Therapeutic activity;Therapeutic exercise;Transfer training;Neuromuscular re-education - -- Balance Training;Bed mobility;Endurance training;Functional activity;Functional transfer training;Gait training;Parent/caregiver training and education;Range of motion;Strengthening;Therapeutic activity;Therapeutic exercise;Transfer training;Neuromuscular re-education - PT Equipment Recommended -- to be determined at rehab - -- -- Progress during current admission Progressing toward goals - -- -- Time Calculation Start Time 1502 -LK -- 911 -LK Stop Time 1516 -LK -- 32 -LK Time Calculation (min) 14 min -LK -- 20 min -LK User Fish (r) = Recorded By, (t) = Taken By, (c) = Cosigned By Initials Name Effective Dates RM Danny Lalita, NANOTECHNICIAN 11/21/21 - Viola Blackwell, NANOTECHNICIAN 10/16/21 - Melissa Figueroa, NANOTECHNICIAN 11/27/20 - Misty Pelaez, NANOTECHNICIAN 11/23/20 - Kimber Wilson, NANOTECHNICIAN 11/21/20 - PT Notes Notes from 04/25/24 through 04/27/24 No notes of this type exist for this encounter. , TRUCK CHAUFFEUR Eval and Treat Last 72 Hours TRUCK CHAUFFEUR Evaluation No documentation. TRUCK CHAUFFEUR Treatment No documentation. Clinical Swallow Study No documentation. TRUCK CHAUFFEUR Notes Notes from 04/25/24 through 04/27/24 No notes of this type exist for this encounter. * Plan of Care - Patsy Benson RN - 04/27/2024 10:32 AM CDT Goals: Clinical Goals for the Shift: increase in strength [employer] Patient Centered Goal for Treatment: increase in strength Summary: pt resting in bed. at bedside. Continue to reorient to place, time, and situation as needed. Explained plan of care to pt/ and agreeable with possible discharge tomorrow back to rehab. No questions/concerns voiced at present time. Call light remains within reach. Will continue to monitor. Bed alarm remains on while in bed. Continue to turn and reposition every 2 hours and as needed. Problem: Activity Goal: Capacity to carry out activities will improve Outcome: Progressing Flowsheets (Taken 04/27/2024 1000) Capacity to carry out activites will improve: Implement activity progression plan Goal: Mobility will improve Outcome: Progressing Flowsheets (Taken 04/27/2024 1000) Mobility will improve: Provide assistance with mobility Problem: Coping Goal: Ability to verbalize positive feelings about self will improve Outcome: Progressing Flowsheets (Taken 04/27/2024 1000) Ability to verbalize positive feelings about self will improve: Support identification of positive aspects of self Problem: Nutritional Goal: Ability to chew and swallow food without choking will improve Outcome: Progressing Flowsheets (Taken 04/27/2024 1000) Ability to chew and swallow food without choking will improve: Encourage proper swallowing techniques Goal: Dietary intake will improve Outcome: Progressing Flowsheets (Taken 04/27/2024 1000) Dietary intake will improve: Collaborate with dietitian Problem: Physical Regulation Goal: Ability to maintain clinical measurements within normal limits will improve Outcome: Progressing Flowsheets (Taken 04/27/2024 1000) Ability to maintain clinical measurements within normal limits will improve: Monitor cardiovascularstatus Problem: Respiratory Goal: Ability to state ways to decrease risk of aspiration will improve Outcome: Progressing Flowsheets (Taken 04/27/2024 1000) Ability to state ways to decrease risk of aspiration will improve: Monitor signs and symptoms of aspiration Problem: Skin Integrity Goal: Risk for impaired skin integrity will decrease Outcome: Progressing Flowsheets (Taken 04/27/2024 1000) Risk for impaired skin integrity will decrease: Implement precautions to protect skin integrity Problem: Tissue Perfusion Goal: Cerebral tissue perfusion will improve Outcome: Progressing Flowsheets (Taken 04/27/2024 1000) Cerebral tissue perfusion will improve: Assess signs and symptoms of increased intracranial pressure Goal: Neurologic status will improve Outcome: Progressing Flowsheets (Taken 04/27/2024 1000) Neurologic status will improve: Monitor neurologic status Problem: Swallowing Goal: Patient's ability to maintain safety and efficiency of swallowing without signs of aspirationwill improve Outcome: Progressing Flowsheets (Taken 04/27/2024 1000) Patient's ability to maintain safety and effiency of swallowing without signs of aspiration will improve: Monitor signs and symptoms of aspiration Problem: Bladder/Voiding Goal: Patient will demonstrate the ability to take care of indwelling catheter Outcome: Progressing Flowsheets (Taken 04/27/2024 1000) Patient will demonstrate the ability to take care of indwelling catheter: Monitor intake and output Problem: Cognitive Goal: Patient will achieve stable or improved cognitive status Outcome: Progressing Flowsheets (Taken 04/27/2024 1000) Patient will achieve stable or improved cognitive status: Assess for and report changes in cognitive status Problem: Safety Goal: Patient will demonstrate safety requirements appropriate to situation/environment Outcome: Progressing Flowsheets (Taken 04/27/2024 1000) Patient will demonstrate safety requirements appropriate to situation/environment: Use gait belt during all transfers Problem: Infection Goal: Patient will have absence of infection during hospitalization Outcome: Progressing Flowsheets (Taken 04/27/2024 1000) Patient will have absence of infection during hospitalization: Asess and monitor for signs and symptoms of infection Problem: Fall Risk Goal: Patient will remain free from falls Outcome: Progressing Flowsheets (Taken 04/27/2024 1000) Patient will remain free from falls: Assess risk factors for falls Goal: Patient's ability to state ways to decrease the risk of falls will improve Outcome: Progressing Flowsheets (Taken 04/27/2024 1000) Patient's ability to state ways to decrease the risk of falls will improve: Teach fall prevention measures Goal: Patient will remain free from injury from falls Outcome: Progressing Flowsheets (Taken 04/27/2024 1000) Patient will remain free from injury from falls: Provide safe environment for activities of daily living in hospital environment Problem: Lack of Knowledge Goal: Ability to develop a pain control plan will improve Outcome: Progressing Flowsheets (Taken 04/27/2024 1000) Ability to develop a pain control plan will improve: Explain causes of pain and how long pain can be expected to last Problem: Medication Goal: Satisfaction with pain management medication regimen will improve Outcome: Progressing Flowsheets (Taken 04/27/2024 1000) Satisfaction with pain management medication regimen will improve: Assess satisfaction with pain management regimen Problem: Sensory Goal: Ability to identify factors that increase pain levels will improve while working to decrease the patient's pain levels Outcome: Progressing Flowsheets (Taken 04/27/2024 1000) Ability to identify factors that increase pain levels will improve while working to decrease patients pain levels: Assess pain status Problem: Coping Goal: Ability to cope will improve Outcome: Progressing Flowsheets (Taken 04/27/2024 1000) Ability to cope will Improve: Encourage vebalization of feelings surrounding pain Problem: Health Behavior Goal: Identification of resources available to assist in meeting health care needs will improve Outcome: Progressing Flowsheets (Taken 04/27/2024 1000) Identification of resources available to assist in meeting health care needs will improve: Collaborate with pain management Problem: Cardiovascular Goal: Maintains optimal cardiac output and hemodynamic stability Outcome: Progressing Flowsheets (Taken 04/27/2024 1000) Maintain optimal cardiac output and hemodynamic Stability: Monitor vital signs, rhythm, and trends Goal: Absence of cardiac dysrhythmias or at baseline Outcome: Progressing Flowsheets (Taken 04/27/2024 1000) Absence of cardiac dysrhythmias or at baseline: Continuous cardiac monitoring, monitor vital signs,obtain 12 lead EKG if indicated Problem: Genitourinary Goal: Absence of urinary retention Outcome: Progressing Flowsheets (Taken 04/27/2024 1000) Absence of urinary retention: Assess patient???s ability to void and empty bladder Goal: Urinary catheter remains patent Outcome: Progressing Flowsheets (Taken 04/27/2024 1000) Urinary catheter remains patent: Assess need for a larger catheter size or a 3- way catheter for continuous bladder irrigation Problem: Discharge Planning Goal: Understanding discharge needs will improve Outcome: Progressing Flowsheets (Taken 04/27/2024 1000) Understanding of discharge needs will improve: Discuss information regarding discharge instructions Problem: Skin Integrity Impairment Risk Goal: Mobility will improve Outcome: Progressing Flowsheets (Taken 04/27/2024 1000) Mobility will improve: Encourage turning and repositioning, assist as needed Goal: Understanding of ways to prevent future skin breakdown will improve Outcome: Progressing Flowsheets (Taken 04/27/2024 1000) Understanding of ways to prevent future skin breakdown will improve: Discuss treatments to protect skin integrity Goal: Nutritional status will improve Outcome: Progressing Flowsheets (Taken 04/27/2024 1000) Nutritional status will improve: Assess nutritional status Goal: Risk for impaired skin integrity will decrease Outcome: Progressing Flowsheets (Taken 04/27/2024 1000) Risk for impaired skin integrity will decrease: Identify risk factors for impaired skin integrity and/or pressure injuries Problem: Fall Risk Goal: Ability to state ways to decrease the risk of falls will improve Outcome: Progressing Flowsheets (Taken 04/27/2024 1000) Ability to state ways to decrease the risk of falls will improve: Teach fall prevention measures Goal: Will remain free from falls Outcome: Progressing Flowsheets (Taken 04/27/2024 1000) Will remain free from falls: Assess risk factors for falls Goal: Will remain free from injury from falls Outcome: Progressing Flowsheets (Taken 04/27/2024 1000) Will remain free from injury from falls: Provide safe environment for conduction of activities of daily living in hospital environment Problem: Neurosensory Goal: Achieves stable or improved neurological status Outcome: Progressing Flowsheets (Taken 04/27/2024 1000) Achieves Stable or Improved Neurological Status: Assess for and report changes in neurological status Goal: Achieves maximal functionality and self care Outcome: Progressing Flowsheets (Taken 04/27/2024 1000) Achieves maximal functionality and self care: Monitor swallowing and airway patency with patient fatigue and changes in neurological status Problem: Respiratory Goal: Achieves optimal ventilation and oxygenation Outcome: Progressing Flowsheets (Taken 04/27/2024 1000) Achieves optimal ventilation and oxygenation: Assess for changes in respiratory status Problem: Gastrointestinal Goal: Minimal or absence of nausea and vomiting Outcome: Progressing Flowsheets (Taken 04/27/2024 1000) Minimal or absence of nausea and vomiting: Assess gastrointestinal status Goal: Maintains or returns to baseline bowel function Outcome: Progressing Flowsheets (Taken 04/27/2024 1000) Maintains or returns to baseline bowel function: Assess bowel function, evaluate bowel sounds and signs of abdominal distention Problem: Infection Goal: Absence of infection during hospitalization Outcome: Progressing Flowsheets (Taken 04/27/2024 1000) Absence of infection during hospitalization: Assess and monitor for signs and symptoms of infection Problem: Musculoskeletal Goal: Return mobility to safest level of function Outcome: Progressing Flowsheets (Taken 04/27/2024 1000) Return mobility to safest level of function: Obtain PT/OT consults as needed Goal: Return ADL status to a safe level of function Outcome: Progressing Flowsheets (Taken 04/27/2024 1000) Return activities of daily living status to a safe level of function: Obtain PT/OT consults as needed Goal: Ability to perform activities at highest level will improve Outcome: Progressing Flowsheets (Taken 04/27/2024 1000) Ability to perform activities at highest level will improve: Provide diversional activities Goal: Mobility, ROM and muscle strength will improve Outcome: Progressing Flowsheets (Taken 04/27/2024 1000) Mobility, ROM and muscle strength will improve: Perform passive and/or assist with range of motion Problem: Skin/Tissue Integrity Goal: Skin integrity remains intact Outcome: Progressing Flowsheets (Taken 04/27/2024 1000) Skin integrity remains intact: Assess and document risk factors for pressure injury development Goal: Oral mucous membranes remain intact Description: Outcome: Progressing Flowsheets (Taken 04/27/2024 1000) Oral mucous membranes remain intact: Assess oral mucosa and hygiene practices * Plan of Care - Lauren Guevara RN - 04/26/2024 9:19 PM CDT Goals: Clinical Goals for the Shift: increase in left sided strength Retirement Patient Centered Goal for Treatment: return to rehab Problem: Activity Goal: Capacity to carry out activities will improve Outcome: Progressing Goal: Mobility will improve Outcome: Progressing Problem: Coping Goal: Ability to verbalize positive feelings about self will improve Outcome: Progressing Problem: Nutritional Goal: Ability to chew and swallow food without choking will improve Outcome: Progressing Goal: Dietary intake will improve Outcome: Progressing Problem: Physical Regulation Goal: Ability to maintain clinical measurements within normal limits will improve Outcome: Progressing Problem: Tissue Perfusion Goal: Cerebral tissue perfusion will improve Outcome: Progressing Goal: Neurologic status will improve Outcome: Progressing Problem: Tissue Perfusion Goal: Neurologic status will improve Outcome: Progressing * Plan of Care - Patsy Benson RN - 04/26/2024 8:17 AM CDT Goals: Clinical Goals for the Shift: increase in left sided strength [facility] Patient Centered Goal for Treatment: return to rehab Summary: pt resting in bed. Continue to turn and reposition every 2 hours and as needed. Continue to reorient pt to place, time, and situation as needed. No questions/concerns voiced at present time.Call light remains within reach. Will continue to monitor. Problem: Activity Goal: Capacity to carry out activities will improve Outcome: Progressing Flowsheets (Taken 04/26/2024 0800) Capacity to carry out activites will improve: Identify effects of fatigue Goal: Mobility will improve Outcome: Progressing Flowsheets (Taken 04/26/2024 0800) Mobility will improve: Provide assistance with mobility Problem: Coping Goal: Ability to verbalize positive feelings about self will improve Outcome: Progressing Flowsheets (Taken 04/26/2024 0800) Ability to verbalize positive feelings about self will improve: Support identification of positive aspects of self Problem: Nutritional Goal: Ability to chew and swallow food without choking will improve Outcome: Progressing Flowsheets (Taken 04/26/2024799) Ability to chew and swallow food without choking will improve: Monitor ability to swallow Goal: Dietary intake will improve Outcome: Progressing Flowsheets (Taken 04/26/2024799) Dietary intake will improve: Collaborate with dietitian Problem: Physical Regulation Goal: Ability to maintain clinical measurements within normal limits will improve Outcome: Progressing Flowsheets (Taken 04/26/2024799) Ability to maintain clinical measurements within normal limits will improve: Monitor cardiovascularstatus Problem: Respiratory Goal: Ability to state ways to decrease risk of aspiration will improve Outcome: Progressing Flowsheets (Taken 04/26/2024799) Ability to state ways to decrease risk of aspiration will improve: Monitor signs and symptoms of aspiration Problem: Skin Integrity Goal: Risk for impaired skin integrity will decrease Outcome: Progressing Flowsheets (Taken 04/26/2024799) Risk for impaired skin integrity will decrease: Implement precautions to protect skin integrity Problem: Tissue Perfusion Goal: Cerebral tissue perfusion will improve Outcome: Progressing Flowsheets (Taken 04/26/2024799) Cerebral tissue perfusion will improve: Assess signs and symptoms of increased intracranial pressure Goal: Neurologic status will improve Outcome: Progressing Flowsheets (Taken 04/26/2024799) Neurologic status will improve: Monitor neurologic status Problem: Swallowing Goal: Patient's ability to maintain safety and efficiency of swallowing without signs of aspirationwill improve Outcome: Progressing Flowsheets (Taken 04/26/2024799) Patient's ability to maintain safety and effiency of swallowing without signs of aspiration will improve: Monitor signs and symptoms of aspiration Problem: Bladder/Voiding Goal: Patient will demonstrate the ability to take care of indwelling catheter Outcome: Progressing Flowsheets (Taken 04/26/2024799) Patient will demonstrate the ability to take care of indwelling catheter: Monitor intake and output Problem: Cognitive Goal: Patient will achieve stable or improved cognitive status Outcome: Progressing Flowsheets (Taken 04/26/2024799) Patient will achieve stable or improved cognitive status: Assess for and report changes in cognitive status Problem: Safety Goal: Patient will demonstrate safety requirements appropriate to situation/environment Outcome: Progressing Flowsheets (Taken 04/26/2024799) Patient will demonstrate safety requirements appropriate to situation/environment: Use gait belt during all transfers Problem: Infection Goal: Patient will have absence of infection during hospitalization Outcome: Progressing Flowsheets (Taken 04/26/2024799) Patient will have absence of infection during hospitalization: Asess and monitor for signs and symptoms of infection Problem: Fall Risk Goal: Patient will remain free from falls Outcome: Progressing Flowsheets (Taken 04/26/2024799) Patient will remain free from falls: Assess risk factors for falls Goal: Patient's ability to state ways to decrease the risk of falls will improve Outcome: Progressing Flowsheets (Taken 04/26/2024799) Patient's ability to state ways to decrease the risk of falls will improve: Teach fall prevention measures Goal: Patient will remain free from injury from falls Outcome: Progressing Flowsheets (Taken 04/26/2024799) Patient will remain free from injury from falls: Provide safe environment for activities of daily living in hospital environment Problem: Lack of Knowledge Goal: Ability to develop a pain control plan will improve Outcome: Progressing Flowsheets (Taken 04/26/2024799) Ability to develop a pain control plan will improve: Explain causes of pain and how long pain can be expected to last Problem: Medication Goal: Satisfaction with pain management medication regimen will improve Outcome: Progressing Flowsheets (Taken 04/26/2024799) Satisfaction with pain management medication regimen will improve: Assess satisfaction with pain management regimen Problem: Sensory Goal: Ability to identify factors that increase pain levels will improve while working to decrease the patient's pain levels Outcome: Progressing Flowsheets (Taken 04/26/2024799) Ability to identify factors that increase pain levels will improve while working to decrease patients pain levels: Assess pain status Problem: Coping Goal: Ability to cope will improve Outcome: Progressing Flowsheets (Taken 04/26/2024799) Ability to cope will Improve: Encourage vebalization of feelings surrounding pain Problem: Health Behavior Goal: Identification of resources available to assist in meeting health care needs will improve Outcome: Progressing Flowsheets (Taken 04/26/2024799) Identification of resources available to assist in meeting health care needs will improve: Collaborate with pain management Problem: Cardiovascular Goal: Maintains optimal cardiac output and hemodynamic stability Outcome: Progressing Flowsheets (Taken 04/26/2024799) Maintain optimal cardiac output and hemodynamic Stability: Monitor vital signs, rhythm, and trends Goal: Absence of cardiac dysrhythmias or at baseline Outcome: Progressing Flowsheets (Taken 04/26/2024799) Absence of cardiac dysrhythmias or at baseline: Continuous cardiac monitoring, monitor vital signs,obtain 12 lead EKG if indicated Problem: Genitourinary Goal: Absence of urinary retention Outcome: Progressing Flowsheets (Taken 04/26/2024799) Absence of urinary retention: Assess patient???s ability to void and empty bladder Goal: Urinary catheter remains patent Outcome: Progressing Problem: Discharge Planning Goal: Understanding discharge needs will improve Outcome: Progressing Flowsheets (Taken 04/26/2024799) Understanding of discharge needs will improve: Discuss information regarding discharge instructions Problem: Skin Integrity Impairment Risk Goal: Mobility will improve Outcome: Progressing Flowsheets (Taken 04/26/2024799) Mobility will improve: Encourage turning and repositioning, assist as needed Goal: Understanding of ways to prevent future skin breakdown will improve Outcome: Progressing Flowsheets (Taken 04/26/2024799) Understanding of ways to prevent future skin breakdown will improve: Discuss treatment plan for related conditions Goal: Nutritional status will improve Outcome: Progressing Flowsheets (Taken 04/26/2024799) Nutritional status will improve: Assess nutritional status Goal: Risk for impaired skin integrity will decrease Outcome: Progressing Flowsheets (Taken 04/26/2024799) Risk for impaired skin integrity will decrease: Identify risk factors for impaired skin integrity and/or pressure injuries Problem: Fall Risk Goal: Ability to state ways to decrease the risk of falls will improve Outcome: Progressing Flowsheets (Taken 04/26/2024799) Ability to state ways to decrease the risk of falls will improve: Teach fall prevention measures Goal: Will remain free from falls Outcome: Progressing Flowsheets (Taken 04/26/2024799) Will remain free from falls: Assess risk factors for falls Goal: Will remain free from injury from falls Outcome: Progressing Flowsheets (Taken 04/26/2024799) Will remain free from injury from falls: Provide safe environment for conduction of activities of daily living in hospital environment Problem: Neurosensory Goal: Achieves stable or improved neurological status Outcome: Progressing Flowsheets (Taken 04/26/2024799) Achieves Stable or Improved Neurological Status: Assess for and report changes in neurological status Goal: Achieves maximal functionality and self care Outcome: Progressing Flowsheets (Taken 04/26/2024799) Achieves maximal functionality and self care: Monitor swallowing and airway patency with patient fatigue and changes in neurological status Problem: Respiratory Goal: Achieves optimal ventilation and oxygenation Outcome: Progressing Flowsheets (Taken 04/26/2024799) Achieves optimal ventilation and oxygenation: Assess for changes in respiratory status Problem: Gastrointestinal Goal: Minimal or absence of nausea and vomiting Outcome: Progressing Flowsheets (Taken 04/26/2024799) Minimal or absence of nausea and vomiting: Assess gastrointestinal status Goal: Maintains or returns to baseline bowel function Outcome: Progressing Flowsheets (Taken 04/26/2024799) Maintains or returns to baseline bowel function: Assess bowel function, evaluate bowel sounds and signs of abdominal distention Problem: Infection Goal: Absence of infection during hospitalization Outcome: Progressing Flowsheets (Taken 04/26/2024799) Absence of infection during hospitalization: Assess and monitor for signs and symptoms of infection Problem: Musculoskeletal Goal: Return mobility to safest level of function Outcome: Progressing Flowsheets (Taken 04/26/2024799) Return mobility to safest level of function: Obtain PT/OT consults as needed Goal: Return ADL status to a safe level of function Outcome: Progressing Flowsheets (Taken 04/26/2024799) Return activities of daily living status to a safe level of function: Obtain PT/OT consults as needed Goal: Ability to perform activities at highest level will improve Outcome: Progressing Flowsheets (Taken 04/26/2024799) Ability to perform activities at highest level will improve: Collaborate with rehabilitation services Goal: Mobility, ROM and muscle strength will improve Outcome: Progressing Flowsheets (Taken 04/26/2024799) Mobility, ROM and muscle strength will improve: Provide positioning in correct anatomical alignment Problem: Skin/Tissue Integrity Goal: Skin integrity remains intact Outcome: Progressing Flowsheets (Taken 04/26/2024799) Skin integrity remains intact: Assess and document risk factors for pressure injury development Goal: Oral mucous membranes remain intact Description: Outcome: Progressing Flowsheets (Taken 04/26/2024799) Oral mucous membranes remain intact: Assess oral mucosa and hygiene practices * Plan of Care - Jossy Gonzalez - 04/25/2024 10:09 PM CDT Goals: Clinical Goals for the Shift: Pt safety, stable v/s, monitor for s/sx of strokes, continue ABX blood sugar checking rest & comfort. Retirement Patient Centered Goal for Treatment: return to rehab Summary: Pt resting on bed, A&O to self, denies pain & discomfort, on tele, refused SCD. POmeds tolerated well. V/S & blood sugar monitored. Due meds, atarax given 2x. Morning care & CHG bath done. kept monitored. Problem: Activity Goal: Capacity to carry out activities will improve Outcome: Progressing Goal: Mobility will improve Outcome: Progressing Problem: Coping Goal: Ability to verbalize positive feelings about self will improve Outcome: Progressing Flowsheets (Taken 04/25/20242024) Ability to verbalize positive feelings about self will improve: Support identification of positive aspects of self Support useful positive self-talk Problem: Nutritional Goal: Ability to chew and swallow food without choking will improve Outcome: Progressing Flowsheets (Taken 04/25/20242024) Ability to chew and swallow food without choking will improve: Provide aspiration precautions Goal: Dietary intake will improve Outcome: Progressing Flowsheets (Taken 04/25/20242024) Dietary intake will improve: Collaborate with dietitian Problem: Physical Regulation Goal: Ability to maintain clinical measurements within normal limits will improve Outcome: Progressing Flowsheets (Taken 04/25/20242024) Ability to maintain clinical measurements within normal limits will improve: Monitor cardiovascular status Monitor medication effects Problem: Skin Integrity Goal: Risk for impaired skin integrity will decrease Outcome: Progressing Flowsheets (Taken 04/25/20242024) Risk for impaired skin integrity will decrease: Implement precautions to protect skin integrity Problem: Tissue Perfusion Goal: Cerebral tissue perfusion will improve Outcome: Progressing Flowsheets (Taken 04/25/20242024) Cerebral tissue perfusion will improve: Assess signs and symptoms of increased intracranial pressure Evaluate risk factors for neurovascular dysfunction Goal: Neurologic status will improve Outcome: Progressing Flowsheets (Taken 04/25/20242024) Neurologic status will improve: Monitor neurologic status Problem: Swallowing Goal: Patient's ability to maintain safety and efficiency of swallowing without signs of aspirationwill improve Outcome: Progressing Problem: Cognitive Goal: Patient will achieve stable or improved cognitive status Outcome: Progressing Problem: Safety Goal: Patient will demonstrate safety requirements appropriate to situation/environment Outcome: Progressing Problem: Infection Goal: Patient will have absence of infection during hospitalization Outcome: Progressing Problem: Fall Risk Goal: Patient will remain free from falls Outcome: Progressing Goal: Patient's ability to state ways to decrease the risk of falls will improve Outcome: Progressing Goal: Patient will remain free from injury from falls Outcome: Progressing Problem: Medication Goal: Satisfaction with pain management medication regimen will improve Outcome: Progressing Problem: Sensory Goal: Ability to identify factors that increase pain levels will improve while working to decrease the patient's pain levels Outcome: Progressing Problem: Coping Goal: Ability to cope will improve Outcome: Progressing Problem: Health Behavior Goal: Identification of resources available to assist in meeting health care needs will improve Outcome: Progressing Problem: Cardiovascular Goal: Maintains optimal cardiac output and hemodynamic stability Outcome: Progressing Flowsheets (Taken 04/25/20242024) Maintain optimal cardiac output and hemodynamic Stability: Monitor vital signs, rhythm, and trends Assess quality of pulses, skin color and temperature Goal: Absence of cardiac dysrhythmias or at baseline Outcome: Progressing Flowsheets (Taken 04/25/20242024) Absence of cardiac dysrhythmias or at baseline: Continuous cardiac monitoring, monitor vital signs,obtain 12 lead EKG if indicated Problem: Neurosensory Goal: Achieves stable or improved neurological status Outcome: Progressing Flowsheets (Taken 04/25/20242024) Achieves Stable or Improved Neurological Status: Assess for and report changes in neurological status Maintain blood pressure and fluid volume within ordered parameters to optimize cerebral perfusion and minimize risk of hemorrhage Monitor temperature, glucose, and sodium. Initiate appropriate interventions as ordered Goal: Achieves maximal functionality and self care Outcome: Progressing Flowsheets (Taken 04/25/20242024) Achieves maximal functionality and self care: Monitor swallowing and airway patency with patient fatigue and changes in neurological status Problem: Gastrointestinal Goal: Minimal or absence of nausea and vomiting Outcome: Progressing Flowsheets (Taken 04/25/20242024) Minimal or absence of nausea and vomiting: Assess gastrointestinal status Provide a clean room free from unpleasant odors Goal: Maintains or returns to baseline bowel function Outcome: Progressing Flowsheets (Taken 04/25/20242024) Maintains or returns to baseline bowel function: Assess bowel function, evaluate bowel sounds and signs of abdominal distention Monitor amount, characteristics and/or frequency of stool Problem: Musculoskeletal Goal: Return mobility to safest level of function Outcome: Progressing Flowsheets (Taken 04/25/20242024) Return mobility to safest level of function: Assess patient stability and activity tolerance for standing, transferring and ambulating with or without assistive devices Obtain PT/OT consults as needed Goal: Return ADL status to a safe level of function Outcome: Progressing Flowsheets (Taken 04/25/20242024) Return activities of daily living status to a safe level of function: Assess patient's activities of daily living deficits and provide assistive devices as needed Obtain PT/OT consults as needed Goal: Ability to perform activities at highest level will improve Outcome: Progressing Goal: Mobility, ROM and muscle strength will improve Outcome: Progressing Problem: Skin/Tissue Integrity Goal: Skin integrity remains intact Outcome: Progressing Flowsheets (Taken 04/25/20242024) Skin integrity remains intact: Assess and document risk factors for pressure injury development Assess and document skin integrity Monitor for areas of redness and/or skin breakdown Goal: Oral mucous membranes remain intact Description: Outcome: Progressing Flowsheets (Taken 04/25/20242024) Oral mucous membranes remain intact: Assess oral mucosa and hygiene practices * Plan of Care - Niki Henry RN - 04/25/2024 7:16 PM CDT CASE MANAGEMENT FOLLOWING: DC PLANNING IN PROGRESS: Current Plan of Care Includes: Need cultures repeated per MD. Referrals to [facility]. Current RAIZA: 04/29 At this time care management team is working with patient/family for safe discharge planning, please details below. For questions or if additional dc planning needs arise, please reach out to the care management team. * Plan of Care - Patsy Benson RN - 04/25/2024 8:33 AM CDT Goals: Clinical Goals for the Shift: increase strength to left side, increase acitivity level [employer] Patient Centered Goal for Treatment: return to rehab Summary: continue to turn and reposition every 2 hours and as needed. Continue to reorient to place/time/situation as needed. No questions/concerns voiced. Call light remains within reach. Bed alarm remains on as needed. Will continue to monitor. Problem: Activity Goal: Capacity to carry out activities will improve Outcome: Progressing Flowsheets (Taken 04/25/2024799) Capacity to carry out activites will improve: Implement activity progression plan Goal: Mobility will improve Outcome: Progressing Flowsheets (Taken 04/25/2024799) Mobility will improve: Encourage mobilization to extent of ability Problem: Coping Goal: Ability to verbalize positive feelings about self will improve Outcome: Progressing Flowsheets (Taken 04/25/2024799) Ability to verbalize positive feelings about self will improve: Support identification of positive aspects of self Problem: Nutritional Goal: Ability to chew and swallow food without choking will improve Outcome: Progressing Flowsheets (Taken 04/25/2024799) Ability to chew and swallow food without choking will improve: Encourage proper swallowing techniques Goal: Dietary intake will improve Outcome: Progressing Flowsheets (Taken 04/25/2024799) Dietary intake will improve: Collaborate with dietitian Problem: Physical Regulation Goal: Ability to maintain clinical measurements within normal limits will improve Outcome: Progressing Flowsheets (Taken 04/25/2024799) Ability to maintain clinical measurements within normal limits will improve: Monitor cardiovascularstatus Problem: Respiratory Goal: Ability to state ways to decrease risk of aspiration will improve Outcome: Progressing Flowsheets (Taken 04/25/2024799) Ability to state ways to decrease risk of aspiration will improve: Monitor signs and symptoms of aspiration Problem: Skin Integrity Goal: Risk for impaired skin integrity will decrease Outcome: Progressing Flowsheets (Taken 04/25/2024799) Risk for impaired skin integrity will decrease: Implement precautions to protect skin integrity Problem: Tissue Perfusion Goal: Cerebral tissue perfusion will improve Outcome: Progressing Flowsheets (Taken 04/25/2024799) Cerebral tissue perfusion will improve: Assess signs and symptoms of increased intracranial pressure Goal: Neurologic status will improve Outcome: Progressing Flowsheets (Taken 04/25/2024799) Neurologic status will improve: Monitor neurologic status Problem: Swallowing Goal: Patient's ability to maintain safety and efficiency of swallowing without signs of aspirationwill improve Outcome: Progressing Flowsheets (Taken 04/25/2024799) Patient's ability to maintain safety and effiency of swallowing without signs of aspiration will improve: Monitor signs and symptoms of aspiration Problem: Bladder/Voiding Goal: Patient will demonstrate the ability to take care of indwelling catheter Outcome: Progressing Flowsheets (Taken 04/25/2024799) Patient will demonstrate the ability to take care of indwelling catheter: Monitor intake and output Problem: Cognitive Goal: Patient will achieve stable or improved cognitive status Outcome: Progressing Flowsheets (Taken 04/25/2024799) Patient will achieve stable or improved cognitive status: Assess for and report changes in cognitive status Problem: Safety Goal: Patient will demonstrate safety requirements appropriate to situation/environment Outcome: Progressing Flowsheets (Taken 04/25/2024799) Patient will demonstrate safety requirements appropriate to situation/environment: Use gait belt during all transfers Problem: Infection Goal: Patient will have absence of infection during hospitalization Outcome: Progressing Flowsheets (Taken 04/25/2024799) Patient will have absence of infection during hospitalization: Asess and monitor for signs and symptoms of infection Problem: Fall Risk Goal: Patient will remain free from falls Outcome: Progressing Flowsheets (Taken 04/25/2024799) Patient will remain free from falls: Assess risk factors for falls Goal: Patient's ability to state ways to decrease the risk of falls will improve Outcome: Progressing Flowsheets (Taken 04/25/2024799) Patient's ability to state ways to decrease the risk of falls will improve: Teach fall prevention measures Goal: Patient will remain free from injury from falls Outcome: Progressing Flowsheets (Taken 04/25/2024799) Patient will remain free from injury from falls: Provide safe environment for activities of daily living in hospital environment Problem: Lack of Knowledge Goal: Ability to develop a pain control plan will improve Outcome: Progressing Flowsheets (Taken 04/25/2024799) Ability to develop a pain control plan will improve: Explain causes of pain and how long pain can be expected to last Problem: Medication Goal: Satisfaction with pain management medication regimen will improve Outcome: Progressing Flowsheets (Taken 04/25/2024799) Satisfaction with pain management medication regimen will improve: Assess satisfaction with pain management regimen Problem: Sensory Goal: Ability to identify factors that increase pain levels will improve while working to decrease the patient's pain levels Outcome: Progressing Flowsheets (Taken 04/25/2024799) Ability to identify factors that increase pain levels will improve while working to decrease patients pain levels: Assess pain status Problem: Coping Goal: Ability to cope will improve Outcome: Progressing Flowsheets (Taken 04/25/2024799) Ability to cope will Improve: Encourage vebalization of feelings surrounding pain Problem: Health Behavior Goal: Identification of resources available to assist in meeting health care needs will improve Outcome: Progressing Flowsheets (Taken 04/25/2024799) Identification of resources available to assist in meeting health care needs will improve: Collaborate with pain management Problem: Cardiovascular Goal: Maintains optimal cardiac output and hemodynamic stability Outcome: Progressing Flowsheets (Taken 04/25/2024799) Maintain optimal cardiac output and hemodynamic Stability: Monitor vital signs, rhythm, and trends Goal: Absence of cardiac dysrhythmias or at baseline Outcome: Progressing Flowsheets (Taken 04/25/2024799) Absence of cardiac dysrhythmias or at baseline: Continuous cardiac monitoring, monitor vital signs,obtain 12 lead EKG if indicated Problem: Genitourinary Goal: Absence of urinary retention Outcome: Progressing Flowsheets (Taken 04/25/2024799) Absence of urinary retention: Assess patient???s ability to void and empty bladder Goal: Urinary catheter remains patent Outcome: Progressing Flowsheets (Taken 04/25/2024799) Urinary catheter remains patent: Assess need for a larger catheter size or a 3- way catheter for continuous bladder irrigation Problem: Discharge Planning Goal: Understanding discharge needs will improve Outcome: Progressing Flowsheets (Taken 04/25/2024799) Understanding of discharge needs will improve: Discuss information regarding discharge instructions Problem: Skin Integrity Impairment Risk Goal: Mobility will improve Outcome: Progressing Flowsheets (Taken 04/25/2024799) Mobility will improve: Encourage turning and repositioning, assist as needed Goal: Understanding of ways to prevent future skin breakdown will improve Outcome: Progressing Flowsheets (Taken 04/25/2024799) Understanding of ways to prevent future skin breakdown will improve: Discuss treatments to protect skin integrity Goal: Nutritional status will improve Outcome: Progressing Flowsheets (Taken 04/25/2024799) Nutritional status will improve: Assess nutritional status Goal: Risk for impaired skin integrity will decrease Outcome: Progressing Flowsheets (Taken 04/25/2024799) Risk for impaired skin integrity will decrease: Identify risk factors for impaired skin integrity and/or pressure injuries Problem: Fall Risk Goal: Ability to state ways to decrease the risk of falls will improve Outcome: Progressing Flowsheets (Taken 04/25/2024799) Ability to state ways to decrease the risk of falls will improve: Teach fall prevention measures Goal: Will remain free from falls Outcome: Progressing Flowsheets (Taken 04/25/2024799) Will remain free from falls: Assess risk factors for falls Goal: Will remain free from injury from falls Outcome: Progressing Flowsheets (Taken 04/25/2024799) Will remain free from injury from falls: Provide safe environment for conduction of activities of daily living in hospital environment Problem: Neurosensory Goal: Achieves stable or improved neurological status Outcome: Progressing Flowsheets (Taken 04/25/2024799) Achieves Stable or Improved Neurological Status: Assess for and report changes in neurological status Goal: Achieves maximal functionality and self care Outcome: Progressing Flowsheets (Taken 04/25/2024799) Achieves maximal functionality and self care: Monitor swallowing and airway patency with patient fatigue and changes in neurological status Problem: Respiratory Goal: Achieves optimal ventilation and oxygenation Outcome: Progressing Flowsheets (Taken 04/25/2024799) Achieves optimal ventilation and oxygenation: Assess for changes in respiratory status Problem: Gastrointestinal Goal: Minimal or absence of nausea and vomiting Outcome: Progressing Flowsheets (Taken 04/25/2024799) Minimal or absence of nausea and vomiting: Assess gastrointestinal status Goal: Maintains or returns to baseline bowel function Outcome: Progressing Flowsheets (Taken 04/25/2024799) Maintains or returns to baseline bowel function: Assess bowel function, evaluate bowel sounds and signs of abdominal distention Problem: Infection Goal: Absence of infection during hospitalization Outcome: Progressing Flowsheets (Taken 04/25/2024799) Absence of infection during hospitalization: Assess and monitor for signs and symptoms of infection Problem: Musculoskeletal Goal: Return mobility to safest level of function Outcome: Progressing Flowsheets (Taken 04/25/2024799) Return mobility to safest level of function: Obtain PT/OT consults as needed Goal: Return ADL status to a safe level of function Outcome: Progressing Flowsheets (Taken 04/25/2024799) Return activities of daily living status to a safe level of function: Obtain PT/OT consults as needed Goal: Ability to perform activities at highest level will improve Outcome: Progressing Flowsheets (Taken 04/25/2024799) Ability to perform activities at highest level will improve: Collaborate with rehabilitation services Goal: Mobility, ROM and muscle strength will improve Outcome: Progressing Flowsheets (Taken 04/25/2024799) Mobility, ROM and muscle strength will improve: Provide positioning in correct anatomical alignment Problem: Skin/Tissue Integrity Goal: Skin integrity remains intact Outcome: Progressing Flowsheets (Taken 04/25/2024799) Skin integrity remains intact: Assess and document risk factors for pressure injury development Goal: Oral mucous membranes remain intact Description: Outcome: Progressing Flowsheets (Taken 04/25/2024799) Oral mucous membranes remain intact: Assess oral mucosa and hygiene practices * Plan of Care - Jayla Finney RN - 04/25/2024 5:34 AM CDT Goals: Clinical Goals for the Shift: Provide comfort and safety, Monitor VS and urine output [facility] Goal for Treatment: return to Rehab Summary: Patient is awake most of night, talking to all the people . She will redirect for only short periods of time. She is restless at times. Multiple episodes of urinary incontinence. Resp even and unlabored, remains on room air. Skin with blanchable redness to buttocks. Repositioning and assisting with turning, but patient does not stay in position and often not allow floating of heels due to her restlessness. Bed alarm on at all times. * Plan of Care - Arielle Vaca RN - 04/24/2024 1:10 PM CDT Goals: Clinical Goals for the Shift: Provide comfort and safety, Monitor VS and urine output [facility] Patient [facility] Goal for Treatment: return to rehab Summary: Pt alert to self. But able to follow commands. No complaints of pain. PRN artificial tears given. states says that her eyeglass is missing and the last time he saw it was on the pt table. We gave the pt a bath,changed the bedding's, checked drawers but did not find any eye glasses on my shift. Passed on the information to the night RN assuming the care for the patient. Problem: Activity Goal: Capacity to carry out activities will improve Outcome: Progressing Flowsheets (Taken 04/23/2024 1200 by Patsy Benson RN) Capacity to carry out activites will improve: Implement activity progression plan Goal: Mobility will improve Outcome: Progressing Flowsheets (Taken 04/23/2024 1200 by Patsy Benson RN) Mobility will improve: Encourage mobilization to extent of ability Problem: Coping Goal: Ability to verbalize positive feelings about self will improve Outcome: Progressing Flowsheets (Taken 04/23/2024 1200 by Patsy Benson RN) Ability to verbalize positive feelings about self will improve: Support identification of positive aspects of self Problem: Nutritional Goal: Ability to chew and swallow food without choking will improve Outcome: Progressing Flowsheets (Taken 04/24/2024 0543 by Jayla Finney RN) Ability to chew and swallow food without choking will improve: Monitor ability to swallow Provide aspiration precautions Problem: Physical Regulation Goal: Ability to maintain clinical measurements within normal limits will improve Outcome: Progressing Flowsheets (Taken 04/23/2024 1200 by Patsy Benson RN) Ability to maintain clinical measurements within normal limits will improve: Monitor cardiovascularstatus Problem: Respiratory Goal: Ability to state ways to decrease risk of aspiration will improve Outcome: Progressing Flowsheets (Taken 04/23/2024 1200 by Patsy eBnson RN) Ability to state ways to decrease risk of aspiration will improve: Monitor signs and symptoms of aspiration Problem: Skin Integrity Goal: Risk for impaired skin integrity will decrease Outcome: Progressing Flowsheets (Taken 04/23/2024 1200 by Patsy Benson RN) Risk for impaired skin integrity will decrease: Implement precautions to protect skin integrity Problem: Tissue Perfusion Goal: Cerebral tissue perfusion will improve Outcome: Progressing Goal: Neurologic status will improve Outcome: Progressing Flowsheets (Taken 04/23/2024 1200 by Patsy Benson RN) Neurologic status will improve: Monitor neurologic status Problem: Swallowing Goal: Patient's ability to maintain safety and efficiency of swallowing without signs of aspirationwill improve Outcome: Progressing Flowsheets (Taken 04/23/2024 1200 by Patsy Benson RN) Patient's ability to maintain safety and effiency of swallowing without signs of aspiration will improve: Monitor signs and symptoms of aspiration Problem: Bladder/Voiding Goal: Patient will demonstrate the ability to take care of indwelling catheter Outcome: Progressing Flowsheets (Taken 04/23/2024 1200 by Patsy Benson RN) Patient will demonstrate the ability to take care of indwelling catheter: Monitor intake and output Problem: Cognitive Goal: Patient will achieve stable or improved cognitive status Outcome: Progressing Flowsheets (Taken 04/23/2024 1200 by Patsy Benson RN) Patient will achieve stable or improved cognitive status: Assess for and report changes in cognitive status Problem: Safety Goal: Patient will demonstrate safety requirements appropriate to situation/environment Outcome: Progressing Flowsheets (Taken 04/23/2024 1200 by Patsy Benson RN) Patient will demonstrate safety requirements appropriate to situation/environment: Use gait belt during all transfers Problem: Infection Goal: Patient will have absence of infection during hospitalization Outcome: Progressing Flowsheets (Taken 04/23/2024 1200 by Patsy Benson RN) Patient will have absence of infection during hospitalization: Asess and monitor for signs and symptoms of infection Problem: Fall Risk Goal: Patient will remain free from falls Outcome: Progressing Flowsheets (Taken 04/23/2024 1200 by Patsy Benson RN) Patient will remain free from falls: Assess risk factors for falls Goal: Patient's ability to state ways to decrease the risk of falls will improve Outcome: Progressing Flowsheets (Taken 04/23/2024 1200 by Patsy Benson RN) Patient's ability to state ways to decrease the risk of falls will improve: Teach fall prevention measures Goal: Patient will remain free from injury from falls Outcome: Progressing Flowsheets (Taken 04/23/2024 1200 by Patsy Benson RN) Patient will remain free from injury from falls: Provide safe environment for activities of daily living in hospital environment Problem: Coping Goal: Ability to cope will improve Outcome: Progressing Flowsheets (Taken 04/23/2024 1200 by Patsy Benson RN) Ability to cope will Improve: Encourage vebalization of feelings surrounding pain Problem: Health Behavior Goal: Identification of resources available to assist in meeting health care needs will improve Outcome: Progressing Problem: Cardiovascular Goal: Maintains optimal cardiac output and hemodynamic stability Outcome: Progressing Flowsheets (Taken 04/24/2024 0545 by Jayla Finney RN) Maintain optimal cardiac output and hemodynamic Stability: Monitor vital signs, rhythm, and trends Monitor for bleeding, hypotension and signs of decreased cardiac output Administer and titrate ordered vasoactive medications to optimize hemodynamic stability Assess quality of pulses, skin color and temperature Problem: Genitourinary Goal: Absence of urinary retention Outcome: Progressing Flowsheets (Taken 04/23/2024 1200 by Patsy Benson RN) Absence of urinary retention: Assess patient???s ability to void and empty bladder Problem: Infection Goal: Absence of infection during hospitalization Outcome: Progressing Flowsheets (Taken 04/23/2024 1200 by Patsy Benson RN) Absence of infection during hospitalization: Assess and monitor for signs and symptoms of infection Problem: Skin Integrity Impairment Risk Goal: Mobility will improve Outcome: Progressing Flowsheets (Taken 04/23/2024 1200 by Patsy Benson RN) Mobility will improve: Encourage mobilization to extent of ability, assist with range of motion as needed Goal: Understanding of ways to prevent future skin breakdown will improve Outcome: Progressing Flowsheets (Taken 04/23/2024 1200 by Patsy Benson RN) Understanding of ways to prevent future skin breakdown will improve: Discuss treatments to protect skin integrity Problem: Fall Risk Goal: Ability to state ways to decrease the risk of falls will improve Outcome: Progressing Flowsheets (Taken 04/23/2024 1200 by Patsy Benson RN) Ability to state ways to decrease the risk of falls will improve: Teach fall prevention measures Goal: Will remain free from falls Outcome: Progressing Flowsheets (Taken 04/23/2024 1200 by Patsy Benson RN) Will remain free from falls: Assess risk factors for falls * Plan of Care - Jayla Finney RN - 04/24/2024 5:43 AM CDT Goals: Clinical Goals for the Shift: Provide comfort and safety, Monitor VS and urine output [facility] Patient Cent[facility] Goal for Treatment: return to rehab Summary: Patient incontinent of large amount of urine. Resp even and unlabored. Remains on room air. Patient had what appeared to be 36 beat VTACH. Given Mag rider and PO KCL replacement. Patient awake all night. Talks and yells out constantly . Redirects briefly and then continues to call for . Emotional support given. * Plan of Care - Patsy Benson RN - 04/23/2024 12:19 PM CDT Goals: Clinical Goals for the Shift: comfort, no pain, turn every 2 hours [facility] Goal for Treatment: no pain, turn every 2 hours, no falls, return to rehab Summary: pt resting in chair. Tolerated physical therapy fair. Voided large amount this am, incontinent, also had large bm. here this am, spoke with berto. No questions/concerns voiced at present time. Call light remains within reach. Bed/chair alarm on as needed. Will continue to monitor. Problem: Activity Goal: Capacity to carry out activities will improve Outcome: Progressing Flowsheets (Taken 04/23/2024 1200) Capacity to carry out activites will improve: Implement activity progression plan Goal: Mobility will improve Outcome: Progressing Flowsheets (Taken 04/23/2024 1200) Mobility will improve: Encourage mobilization to extent of ability Problem: Coping Goal: Ability to verbalize positive feelings about self will improve Outcome: Progressing Flowsheets (Taken 04/23/2024 1200) Ability to verbalize positive feelings about self will improve: Support identification of positive aspects of self Problem: Nutritional Goal: Ability to chew and swallow food without choking will improve Outcome: Progressing Flowsheets (Taken 04/23/20241199) Ability to chew and swallow food without choking will improve: Complete dysphagia screening Goal: Dietary intake will improve Outcome: Progressing Flowsheets (Taken 04/23/20241199) Dietary intake will improve: Collaborate with dietitian Problem: Physical Regulation Goal: Ability to maintain clinical measurements within normal limits will improve Outcome: Progressing Flowsheets (Taken 04/23/20241199) Ability to maintain clinical measurements within normal limits will improve: Monitor cardiovascularstatus Problem: Respiratory Goal: Ability to state ways to decrease risk of aspiration will improve Outcome: Progressing Flowsheets (Taken 04/23/20241199) Ability to state ways to decrease risk of aspiration will improve: Monitor signs and symptoms of aspiration Problem: Skin Integrity Goal: Risk for impaired skin integrity will decrease Outcome: Progressing Flowsheets (Taken 04/23/20241199) Risk for impaired skin integrity will decrease: Implement precautions to protect skin integrity Problem: Tissue Perfusion Goal: Cerebral tissue perfusion will improve Outcome: Progressing Flowsheets (Taken 04/23/20241199) Cerebral tissue perfusion will improve: Assess signs and symptoms of increased intracranial pressure Goal: Neurologic status will improve Outcome: Progressing Flowsheets (Taken 04/23/20241199) Neurologic status will improve: Monitor neurologic status Problem: Swallowing Goal: Patient's ability to maintain safety and efficiency of swallowing without signs of aspirationwill improve Outcome: Progressing Flowsheets (Taken 04/23/20241199) Patient's ability to maintain safety and effiency of swallowing without signs of aspiration will improve: Monitor signs and symptoms of aspiration Problem: Bladder/Voiding Goal: Patient will demonstrate the ability to take care of indwelling catheter Outcome: Progressing Flowsheets (Taken 04/23/20241199) Patient will demonstrate the ability to take care of indwelling catheter: Monitor intake and output Problem: Cognitive Goal: Patient will achieve stable or improved cognitive status Outcome: Progressing Flowsheets (Taken 04/23/20241199) Patient will achieve stable or improved cognitive status: Assess for and report changes in cognitive status Problem: Safety Goal: Patient will demonstrate safety requirements appropriate to situation/environment Outcome: Progressing Flowsheets (Taken 04/23/20241199) Patient will demonstrate safety requirements appropriate to situation/environment: Use gait belt during all transfers Problem: Infection Goal: Patient will have absence of infection during hospitalization Outcome: Progressing Flowsheets (Taken 04/23/20241199) Patient will have absence of infection during hospitalization: Asess and monitor for signs and symptoms of infection Problem: Fall Risk Goal: Patient will remain free from falls Outcome: Progressing Flowsheets (Taken 04/23/2024 1200) Patient will remain free from falls: Assess risk factors for falls Goal: Patient's ability to state ways to decrease the risk of falls will improve Outcome: Progressing Flowsheets (Taken 04/23/2024 1200) Patient's ability to state ways to decrease the risk of falls will improve: Teach fall prevention measures Goal: Patient will remain free from injury from falls Outcome: Progressing Flowsheets (Taken 04/23/2024 1200) Patient will remain free from injury from falls: Provide safe environment for activities of daily living in hospital environment Problem: Lack of Knowledge Goal: Ability to develop a pain control plan will improve Outcome: Progressing Flowsheets (Taken 04/23/20241199) Ability to develop a pain control plan will improve: Explain causes of pain and how long pain can be expected to last Problem: Medication Goal: Satisfaction with pain management medication regimen will improve Outcome: Progressing Flowsheets (Taken 04/23/20241199) Satisfaction with pain management medication regimen will improve: Assess satisfaction with pain management regimen Problem: Sensory Goal: Ability to identify factors that increase pain levels will improve while working to decrease the patient's pain levels Outcome: Progressing Flowsheets (Taken 04/23/20241199) Ability to identify factors that increase pain levels will improve while working to decrease patients pain levels: Assess pain status Problem: Coping Goal: Ability to cope will improve Outcome: Progressing Flowsheets (Taken 04/23/20241199) Ability to cope will Improve: Encourage vebalization of feelings surrounding pain Problem: Health Behavior Goal: Identification of resources available to assist in meeting health care needs will improve Outcome: Progressing Flowsheets (Taken 04/23/20241199) Identification of resources available to assist in meeting health care needs will improve: Collaborate with pain management Problem: Cardiovascular Goal: Maintains optimal cardiac output and hemodynamic stability Outcome: Progressing Flowsheets (Taken 04/23/20241199) Maintain optimal cardiac output and hemodynamic Stability: Monitor vital signs, rhythm, and trends Goal: Absence of cardiac dysrhythmias or at baseline Outcome: Progressing Flowsheets (Taken 04/23/20241199) Absence of cardiac dysrhythmias or at baseline: Continuous cardiac monitoring, monitor vital signs,obtain 12 lead EKG if indicated Problem: Genitourinary Goal: Absence of urinary retention Outcome: Progressing Flowsheets (Taken 04/23/20241199) Absence of urinary retention: Assess patient???s ability to void and empty bladder Goal: Urinary catheter remains patent Outcome: Progressing Problem: Discharge Planning Goal: Understanding discharge needs will improve Outcome: Progressing Flowsheets (Taken 04/23/2024 1200) Understanding of discharge needs will improve: Discuss information regarding discharge instructions Problem: Skin Integrity Impairment Risk Goal: Mobility will improve Outcome: Progressing Flowsheets (Taken 04/23/2024 1200) Mobility will improve: Encourage mobilization to extent of ability, assist with range of motion as needed Goal: Understanding of ways to prevent future skin breakdown will improve Outcome: Progressing Flowsheets (Taken 04/23/20241199) Understanding of ways to prevent future skin breakdown will improve: Discuss treatments to protect skin integrity Goal: Nutritional status will improve Outcome: Progressing Flowsheets (Taken 04/23/20241199) Nutritional status will improve: Assess nutritional status Goal: Risk for impaired skin integrity will decrease Outcome: Progressing Flowsheets (Taken 04/23/20241199) Risk for impaired skin integrity will decrease: Identify risk factors for impaired skin integrity and/or pressure injuries Problem: Fall Risk Goal: Ability to state ways to decrease the risk of falls will improve Outcome: Progressing Flowsheets (Taken 04/23/20241199) Ability to state ways to decrease the risk of falls will improve: Teach fall prevention measures Goal: Will remain free from falls Outcome: Progressing Flowsheets (Taken 04/23/20241199) Will remain free from falls: Assess risk factors for falls Goal: Will remain free from injury from falls Outcome: Progressing Flowsheets (Taken 04/23/20241199) Will remain free from injury from falls: Provide safe environment for conduction of activities of daily living in hospital environment Problem: Infection Goal: Absence of infection during hospitalization Outcome: Progressing Flowsheets (Taken 04/23/20241199) Absence of infection during hospitalization: Assess and monitor for signs and symptoms of infection Problem: Musculoskeletal Goal: Return mobility to safest level of function Outcome: Progressing Flowsheets (Taken 04/23/20241199) Return mobility to safest level of function: Instruct patient/family in ordered activity level Obtain PT/OT consults as needed Goal: Return ADL status to a safe level of function Outcome: Progressing Flowsheets (Taken 04/23/20241199) Return activities of daily living status to a safe level of function: Assess patient's activities of daily living deficits and provide assistive devices as needed Goal: Ability to perform activities at highest level will improve Outcome: Progressing Flowsheets (Taken 04/23/2024 1200) Ability to perform activities at highest level will improve: Collaborate with rehabilitation services Goal: Mobility, ROM and muscle strength will improve Outcome: Progressing Flowsheets (Taken 04/23/2024 1200) Mobility, ROM and muscle strength will improve: Provide proper bed mobility techniques * Plan of Care - Jayla Finney RN - 04/23/2024 4:33 AM CDT Goals: Clinical Goals for the Shift: Provide safety and comfort [facility] Patient [facility] Goal for Treatment: Return to rehab Summary: Patient with episodes of anxious and talking, she at times with difficulty coming up with word. She has weakness to left side. She does not follow instructions so difficulty with neuro exams. Resp even and unlabored. Remains on room air. Incontinent of large amount of urine, following bladder scan 212 cc of urine. Abdomen soft, non tender. Bed alarm on at all times. * Plan of Care - Cris Cunha RN - 04/22/2024 4:33 PM CDT Goals: Clinical Goals for the Shift: pt safety, rest & comfort, monitor for signs of stroke, continue IV antibitoics [employer] Patient Centered Goal for Treatment: back to rehab Summary: Pt still confused, calls for and for help through most of shift. Atarax given around 2 pm when pt was no longer NPO, still anxious and restless. Had SHIVAM this morning at 9 am, showed significant result. Consults to cardiology ordered. Tolerated procedure well. Tolerating PO intake well after SHIVAM, needs to increase fluid intake. Catheter was d/danuta last night, pt has yet to void on her own. Bladder scan done around 4 pm showed 267 residual in bladder. MD notified. Pt resting otherwise. No pain stated at this time. VSS, no questions or complaints. Will continue to monitor. Problem: Activity Goal: Mobility will improve Recent Flowsheet Documentation Taken 04/22/2024 1000 by Cris Cunha RN Mobility will improve: Encourage mobilization to extent of ability Problem: Physical Regulation Goal: Ability to maintain clinical measurements within normal limits will improve Recent Flowsheet Documentation Taken 04/22/2024 1000 by Cris Cunha RN Ability to maintain clinical measurements within normal limits will improve: Monitor cardiovascular status Monitor medication effects Problem: Respiratory Goal: Ability to state ways to decrease risk of aspiration will improve Recent Flowsheet Documentation Taken 04/22/2024 1000 by Cris Cunha RN Ability to state ways to decrease risk of aspiration will improve: Monitor signs and symptoms of aspiration Problem: Skin Integrity Goal: Risk for impaired skin integrity will decrease Recent Flowsheet Documentation Taken 04/22/2024 1000 by Cris Cunha RN Risk for impaired skin integrity will decrease: Implement precautions to protect skin integrity Problem: Tissue Perfusion Goal: Cerebral tissue perfusion will improve Recent Flowsheet Documentation Taken 04/22/2024 1000 by Cris Cunha RN Cerebral tissue perfusion will improve: Assess signs and symptoms of increased intracranial pressure Evaluate risk factors for neurovascular dysfunction Goal: Neurologic status will improve Recent Flowsheet Documentation Taken 04/22/2024 1000 by Cris Cunha RN Neurologic status will improve: Monitor neurologic status Problem: Swallowing Goal: Patient's ability to maintain safety and efficiency of swallowing without signs of aspirationwill improve Recent Flowsheet Documentation Taken 04/22/2024 1000 by Cris Cunha RN Patient's ability to maintain safety and effiency of swallowing without signs of aspiration will improve: Monitor signs and symptoms of aspiration Collaborate with rehabilitation services Problem: Bladder/Voiding Goal: Patient will demonstrate the ability to take care of indwelling catheter Recent Flowsheet Documentation Taken 04/22/2024 1000 by Cris Cunha RN Patient will demonstrate the ability to take care of indwelling catheter: Monitor intake and output Problem: Cognitive Goal: Patient will achieve stable or improved cognitive status Recent Flowsheet Documentation Taken 04/22/2024 1000 by Cris Cunha RN Patient will achieve stable or improved cognitive status: Assess for and report changes in cognitive status Problem: Safety Goal: Patient will demonstrate safety requirements appropriate to situation/environment Recent Flowsheet Documentation Taken 04/22/2024 1000 by Cris Cunha RN Patient will demonstrate safety requirements appropriate to situation/environment: Use gait belt during all transfers Problem: Infection Goal: Patient will have absence of infection during hospitalization Recent Flowsheet Documentation Taken 04/22/2024 1000 by Cris Cunha RN Patient will have absence of infection during hospitalization: Asess and monitor for signs and symptoms of infection Monitor all insertion sites i.e., indwelling lines, tubes and drains Administer medications as ordered Problem: Fall Risk Goal: Patient will remain free from falls Recent Flowsheet Documentation Taken 04/22/2024 1000 by Cris Cunha RN Patient will remain free from falls: Assess risk factors for falls Implement fall prevention measures Goal: Patient's ability to state ways to decrease the risk of falls will improve Recent Flowsheet Documentation Taken 04/22/2024 1000 by Cris Cunha RN Patient's ability to state ways to decrease the risk of falls will improve: Teach fall prevention measures Goal: Patient will remain free from injury from falls Recent Flowsheet Documentation Taken 04/22/2024 1000 by Cris Cunha RN Patient will remain free from injury from falls: Provide safe environment for activities of daily living in hospital environment Problem: Lack of Knowledge Goal: Ability to develop a pain control plan will improve Recent Flowsheet Documentation Taken 04/22/2024 1000 by Cris Cunha RN Ability to develop a pain control plan will improve: Explain causes of pain and how long pain can be expected to last Problem: Medication Goal: Satisfaction with pain management medication regimen will improve Recent Flowsheet Documentation Taken 04/22/2024 1000 by Cris Cunha RN Satisfaction with pain management medication regimen will improve: Assess satisfaction with pain management regimen Evaluate medication effects Provide administration of medications prior to painful activities Problem: Sensory Goal: Ability to identify factors that increase pain levels will improve while working to decrease the patient's pain levels Recent Flowsheet Documentation Taken 04/22/2024 1000 by Cris Cunha RN Ability to identify factors that increase pain levels will improve while working to decrease patients pain levels: Assess pain status Assess effects of pain control measures Problem: Coping Goal: Ability to cope will improve Recent Flowsheet Documentation Taken 04/22/2024 1000 by Cris Cunha RN Ability to cope will Improve: Encourage vebalization of feelings surrounding pain Provide emotional support Problem: Health Behavior Goal: Identification of resources available to assist in meeting health care needs will improve Recent Flowsheet Documentation Taken 04/22/2024 1000 by Cris Cunha RN Identification of resources available to assist in meeting health care needs will improve: Collaborate with all therapies Problem: Cardiovascular Goal: Maintains optimal cardiac output and hemodynamic stability Recent Flowsheet Documentation Taken 04/22/2024 1000 by Cris Cunha RN Maintain optimal cardiac output and hemodynamic Stability: Monitor vital signs, rhythm, and trends Assess quality of pulses, skin color and temperature Assess for signs of decreased coronary artery perfusion - ex. angina Goal: Absence of cardiac dysrhythmias or at baseline Recent Flowsheet Documentation Taken 04/22/2024 1000 by Cris Cunha RN Absence of cardiac dysrhythmias or at baseline: Continuous cardiac monitoring, monitor vital signs,obtain 12 lead EKG if indicated Problem: Genitourinary Goal: Absence of urinary retention Recent Flowsheet Documentation Taken 04/22/2024 1000 by Cris Cunha RN Absence of urinary retention: Assess patient???s ability to void and empty bladder Assess amount and/or characteristics of urine Problem: Skin Integrity Impairment Risk Goal: Mobility will improve Recent Flowsheet Documentation Taken 04/22/2024 1000 by Cris Cunha RN Mobility will improve: Encourage mobilization to extent of ability, assist with range of motion as needed Goal: Understanding of ways to prevent future skin breakdown will improve Recent Flowsheet Documentation Taken 04/22/2024999 by Cris Cunha RN Understanding of ways to prevent future skin breakdown will improve: Discuss treatments to protect skin integrity Goal: Nutritional status will improve Recent Flowsheet Documentation Taken 04/22/2024999 by Cris Cunha RN Nutritional status will improve: Encourage nutritional intake Encourage fluid intake Goal: Risk for impaired skin integrity will decrease Recent Flowsheet Documentation Taken 04/22/2024 1000 by Cris Cunha RN Risk for impaired skin integrity will decrease: Identify risk factors for impaired skin integrity and/or pressure injuries Problem: Fall Risk Goal: Ability to state ways to decrease the risk of falls will improve Recent Flowsheet Documentation Taken 04/22/2024 1000 by Cris Cunha RN Ability to state ways to decrease the risk of falls will improve: Teach fall prevention measures Goal: Will remain free from falls Recent Flowsheet Documentation Taken 04/22/2024 1000 by Cris Cunha RN Will remain free from falls: Assess risk factors for falls Implement fall prevention measures Goal: Will remain free from injury from falls Recent Flowsheet Documentation Taken 04/22/2024 1000 by Cris Cunha RN Will remain free from injury from falls: Provide safe environment for conduction of activities of daily living in hospital environment * Plan of Care - Carlie Hancock RN - 04/22/2024 12:03 PM CDT CM Care Progression Expected Discharge Date and Time Expected Discharge Date Apr 26, 2024 04/22/24 1203 Discharge Planning Support System Spouse/Significant Other;Children Anticipated discharge level of care Acute Rehab Does the patient need discharge transport arranged? No Type of Transportation Ambulance/EMS Has discharge transport been arranged? No Post Acute Care Plan Post Acute Care Facility Yes Referral Status Started (referral sent) Next steps with the transition plan: Per IDR with Dr. Andino disease noted in aorta on SHIVAM likely causing CVAs. Getting CTA of chest to eval further, neuro and vascular consulted for further treatment plan. This discharge plan has been discussed with spouse agreement to the post-acute care plan and understanding of the expectations for discharge when medically ready. Carlie Hancock RN * Post-Procedure Note - Nino Olivia MD - 04/22/2024 10:20 AM CDT Images from the original note were not included. 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 THIEN with normal Doppler emptying velocities and no visible thrombus in multiple views. Aortic valve is trileaflet without stenosis or regurgitation. There is mild TR, trace AZ, slight restriction ofmitral valve anterior leaflet with mild anterior mitral [...] be a likely cause of embolic events. See below for image. Consider further imaging assessment to evaluated for peripheral embolic phenomenon (splenic or renal infarcts, etc.) with dedicated CTA chest, abdomen, pelvis. This result was relayed to primary team. Estimated Blood Loss: none Specimens Removed: none Postoperative Diagnosis: stroke Formal report to follow. Nino Olivia MD * Plan of Care - Jossy Gonzalez - 04/21/2024 10:18 PM CDT Goals: Clinical Goals for the Shift: Pt safety, stable v/s, monitor for s/sx of strokes, blood sugar checking rest & comfort [employer] Patient Centered Goal for Treatment: back to rehab Summary: Pt resting on bed, A&O 1-2, anxious & keep asking for help. with with fernandez Fr 16 connected to the urine bag, on tele, on SCD. PO meds tolerated well. V/S & blood sugar monitored. Pain meds given 1x & atarax given 2x. CHG bath given. 0135 Fernandez D/C. Kept on NPO post midnight for SHIVAM in AM. kept monitored. Problem: Activity Goal: Capacity to carry out activities will improve Outcome: Progressing Flowsheets (Taken 04/21/20241919) Capacity to carry out activites will improve: Implement activity progression plan Identify effects of fatigue Goal: Mobility will improve Outcome: Progressing Flowsheets (Taken 04/21/20241919) Mobility will improve: Encourage mobilization to extent of ability Problem: Coping Goal: Ability to verbalize positive feelings about self will improve Outcome: Progressing Flowsheets (Taken 04/21/20241919) Ability to verbalize positive feelings about self will improve: Support identification of positive aspects of self Problem: Nutritional Goal: Ability to chew and swallow food without choking will improve Outcome: Progressing Flowsheets (Taken 04/21/20241919) Ability to chew and swallow food without choking will improve: Complete dysphagia screening Monitor ability to swallow Monitor signs and symptoms of aspiration Provide aspiration precautions Goal: Dietary intake will improve Outcome: Progressing Flowsheets (Taken 04/21/20241919) Dietary intake will improve: Provide assistance with feeding Problem: Physical Regulation Goal: Ability to maintain clinical measurements within normal limits will improve Outcome: Progressing Flowsheets (Taken 04/21/20241919) Ability to maintain clinical measurements within normal limits will improve: Monitor cardiovascularstatus Problem: Respiratory Goal: Ability to state ways to decrease risk of aspiration will improve Outcome: Progressing Flowsheets (Taken 04/21/20241919) Ability to state ways to decrease risk of aspiration will improve: Monitor signs and symptoms of aspiration Problem: Skin Integrity Goal: Risk for impaired skin integrity will decrease Outcome: Progressing Flowsheets (Taken 04/21/20241919) Risk for impaired skin integrity will decrease: Implement precautions to protect skin integrity Problem: Tissue Perfusion Goal: Cerebral tissue perfusion will improve Outcome: Progressing Flowsheets (Taken 04/21/20241919) Cerebral tissue perfusion will improve: Assess signs and symptoms of increased intracranial pressure Evaluate risk factors for neurovascular dysfunction Goal: Neurologic status will improve Outcome: Progressing Flowsheets (Taken 04/21/20241919) Neurologic status will improve: Monitor neurologic status Problem: Swallowing Goal: Patient's ability to maintain safety and efficiency of swallowing without signs of aspirationwill improve Outcome: Progressing Flowsheets (Taken 04/21/20241919) Patient's ability to maintain safety and effiency of swallowing without signs of aspiration will improve: Monitor signs and symptoms of aspiration Problem: Bladder/Voiding Goal: Patient will demonstrate the ability to take care of indwelling catheter Outcome: Progressing Flowsheets (Taken 04/21/20241919) Patient will demonstrate the ability to take care of indwelling catheter: Monitor intake and output Educate patient and family on signs/symptoms of a UTI Problem: Cognitive Goal: Patient will achieve stable or improved cognitive status Outcome: Progressing Flowsheets (Taken 04/21/20241919) Patient will achieve stable or improved cognitive status: Assess for and report changes in cognitive status Problem: Safety Goal: Patient will demonstrate safety requirements appropriate to situation/environment Outcome: Progressing Problem: Fall Risk Goal: Patient will remain free from falls Outcome: Progressing Flowsheets (Taken 04/21/20241919) Patient will remain free from falls: Assess risk factors for falls Implement fall prevention measures Collaborate with other disciplines Goal: Patient's ability to state ways to decrease the risk of falls will improve Outcome: Progressing Flowsheets (Taken 04/21/20241919) Patient's ability to state ways to decrease the risk of falls will improve: Teach fall prevention measures Teach information regarding appropriate environmental changes Goal: Patient will remain free from injury from falls Outcome: Progressing Flowsheets (Taken 04/21/20241919) Patient will remain free from injury from falls: Provide safe environment for activities of daily living in hospital environment Problem: Lack of Knowledge Goal: Ability to develop a pain control plan will improve Outcome: Progressing Flowsheets (Taken 04/21/20241919) Ability to develop a pain control plan will improve: Explain causes of pain and how long pain can be expected to last Teach information regarding pain management Educate pain scale for assessing level of pain Problem: Medication Goal: Satisfaction with pain management medication regimen will improve Outcome: Progressing Flowsheets (Taken 04/21/20241919) Satisfaction with pain management medication regimen will improve: Assess satisfaction with pain management regimen Evaluate medication effects Problem: Sensory Goal: Ability to identify factors that increase pain levels will improve while working to decrease the patient's pain levels Outcome: Progressing Flowsheets (Taken 04/21/20241919) Ability to identify factors that increase pain levels will improve while working to decrease patients pain levels: Assess pain status Observe non-verbal cues of discomfort, such as restlessness, muscle tension, or altered vital signs Problem: Cardiovascular Goal: Maintains optimal cardiac output and hemodynamic stability Outcome: Progressing Flowsheets (Taken 04/21/20241919) Maintain optimal cardiac output and hemodynamic Stability: Monitor vital signs, rhythm, and trends Assess quality of pulses, skin color and temperature Goal: Absence of cardiac dysrhythmias or at baseline Outcome: Progressing Flowsheets (Taken 04/21/20241919) Absence of cardiac dysrhythmias or at baseline: Continuous cardiac monitoring, monitor vital signs,obtain 12 lead EKG if indicated Problem: Genitourinary Goal: Absence of urinary retention Outcome: Progressing Flowsheets (Taken 04/21/20241919) Absence of urinary retention: Assess patient???s ability to void and empty bladder Assess amount and/or characteristics of urine Goal: Urinary catheter remains patent Outcome: Progressing Flowsheets (Taken 04/21/20241919) Urinary catheter remains patent: Assess patency of urinary catheter Problem: Discharge Planning Goal: Understanding discharge needs will improve Outcome: Progressing Flowsheets (Taken 04/21/20241919) Understanding of discharge needs will improve: Discuss information regarding discharge instructions Identify discharge learning needs (meds, wound care, etc.) Identify discharge barriers Problem: Skin Integrity Impairment Risk Goal: Mobility will improve Outcome: Progressing Flowsheets (Taken 04/21/20241919) Mobility will improve: Encourage mobilization to extent of ability, assist with range of motion as needed Encourage turning and repositioning, assist as needed Assess circulation, sensation and/or motion of extremity Goal: Understanding of ways to prevent future skin breakdown will improve Outcome: Progressing Flowsheets (Taken 04/21/20241919) Understanding of ways to prevent future skin breakdown will improve: Discuss treatments to protect skin integrity Goal: Nutritional status will improve Outcome: Progressing Goal: Risk for impaired skin integrity will decrease Outcome: Progressing Flowsheets (Taken 04/21/20241919) Risk for impaired skin integrity will decrease: Identify risk factors for impaired skin integrity and/or pressure injuries Monitor skin integrity, appearance and temperature * Plan of Care - Cris Cunha RN - 04/21/2024 6:11 PM CDT Goals: Clinical Goals for the Shift: pt safety, mobility, stable v/s [facility] Patient Centered Goal for Treatment: back to rehab Summary: Pt was anxious and crying intermittently throughout the day. Gave PRN atarax this am, withthat and help of we got her calmed. Turned and repositioned frequently, pain meds given forleg pain. SCDS placed. Pt calm and resting at this time. Will continue to monitor. * [facility] Note - Carlie Hancock RN - 04/21/2024 10:07 AM CDT Images from the original note were not included. Patient Information: Patient Header Patient Information Patient Name: LYNN ZELAYA Date of 1960 (63 years) Sex: Female Phone Numbers: Home: , OT Eval and Treat Last 72 Hours OT Evaluation Row Name 04/20/24 1032 Chart Reviewed Yes -KB Session Type Evaluation -KB OT Received On 05/04/24 -KB Safe Environment Arm band checked -KB Subjective Agreeable to Therapy -KB Additional Pertinent History AMS * CVA w/left sided residual hemiparesis (left arm/leg), HTN, and HLD that presented to OSH ED from rehab center ([place]) with decline in mental status and lethargy x 1-2 days *CT brain shows worsening of recent stroke. Subacute infarct involving R internal capsule, and R temporal occipital region, worsened from 04/07/2024 -KB Occupational Therapy-Patient Goal pt unable to state a goal -KB OT Functional Mobility pt found supine in bed upon entering room. transport came in [facility] w/c to take pt to imaging. RN unsure if pt would be able to tolerate w/c. completed supine to sit EOB with max A x 2. once sitting EOB required cga to max A to maintain balance as pt had 1 lateral LOB with maxA to recover. pt unable to tolerate sitting without lateral support so w/c unsafe for pt at this time. sit to supine completed with max A x 2. max A x 2 to scoot to HOB. -KB OT Self Care UB dress max A, LB dress max A, toileting max A -KB OT Cognition A&O x self only -KB OT Communication Pt with delayed responses and stated ok for most questions. -KB Precautions Bed/Chair Alarm;Fall risk -KB Precaution Comments Telemetry, Fernandez Catheter, IV -KB [facility]. -KB Prior Function Comments pt unable to state -KB Pain Assessment -- pt did not appear to be in pain during eval. -KB Endurance Tolerates less than 10 min activity no significant change in vital signs -KB Arousal/Alertness Alert -KB Attention Span Unable to attend/complete tasks -KB Memory Unable to assess -KB Current communication -- at time of eval it appears pt is unable to state needs. when asked questions delayed responses with sometimes no response. As well as stated ok with most questions -KB Orientation Oriented to person -KB Following Commands Follows one step commands with repetition -KB Safety Judgment Decreased awareness of need for assistance -KB Awareness of Errors Assistance required to identify errors made;Assistance required to correct errors made;Decreased awareness of errors -KB Insight Decreased awareness of deficits -KB Problem Solving Assistance required to identify errors made;Assistance required to generate solutions;Assistance required to implement solutions -KB Compliance/Behavior Easy to engage -KB Coordination -- unable eto assess -KB Gross Grasp -- unable to assess -KB RUE Comments functional -KB LUE Comments functional -KB Safe Environment End of Therapy Session Patient left supine in bed;RN notified pt with RN and transport when therapy left room -KB Prognosis Fair -KB Problem List Decreased endurance;Decreased balance;Decreased functional mobility;Decreased ADL independence;Decreased IADL independence -KB Barriers to Discharge Current Mobility Status;Current ADL Status -KB Plan Plan of care initiated;If this is the last note, consider this the discharge summary -KB OT Recommendation Custodial Facility -KB Patient at high risk for Falls;Readmission;Injury due to decreased ability to care for self;Injury due to reduced functional status;Injury due to impaired cognition;Injury due to balance deficits;Injury at home as patient has not returned to prior level of function;Developing impaired skin integrity;Cognitive decline due to decreased social participation;Prolonged dependence for self care tasks -KB Recommend SNF due to Risk of injury at home;Unable to safely care for self in the home;Skilled therapy needed to address care for self in the home;Skilled therapy needed to address functional deficits;Skilled therapy needed for patient to return to prior level of independence -KB OT Frequency during current admission 3-5x/wk -KB Treatment/Interventions during current admission ADL/IADL retraining;Balance Training;Bed mobility;Endurance training;Functional activity;Functional mobility training;Functional transfer training;Neuromuscular re- education;Parent/caregiver training and education;Transfer training;Therapeutic exercise;Therapeutic activity;Strengthening -KB OT - Next Appointment 05/04/24 -KB OT Evaluation Complete Yes -KB Start Time 1032 -KB Stop Time 1041 -KB Time Calculation (min) 9 min -KB User Fish (r) = Recorded By, (t) = Taken By, (c) = Cosigned By Initials Name Effective Dates KB Katherine Casas, OT 03/13/21 - OT Treatment No documentation. OT Notes 04/20/2024 12:22 PM Progress Notes signed by Katherine Casas, OT , PT Eval and Treat Last 72 Hours PT Evaluation Row Name 04/20/24 1033 Chart Reviewed Yes -AZ Session Type Evaluation -AZ Safe Environment Arm band checked;Patient found in supine;Session completed bedside;Gait belt utilized for all out of bed mobility -AZ Additional Pertinent History Pt admitted from [facility] with altered mental status. 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 Hx includes: HTN, HLD. CTbrain shows worsening of recent stroke. Subacute infarct involving R internal capsule, and right temporal occipital region worsened from 04/07/24. Pt was being taken to MRI after PT eval this am -AZ Family/Caregiver Present No -AZ Physical Therapy-Patient Goal Pt unable to state goal at time of eval. -AZ Precautions Bed/Chair Alarm;Fall risk -AZ Additional Comments Pt unable to provide insight into prior living arrangements. Pt transferred here from [facility]. -AZ Prior Function Comments Pt unable to state. -AZ Endurance Tolerates less than 10 min activity no significant change in vital signs -AZ Pain Assessment -- Pt with no expressions of pain during evaluation. -AZ Arousal/Alertness Alert -AZ Attention Span Unable to attend/complete tasks -AZ Memory Unable to assess -AZ Current communication Other Pt would occaisonally responds to questions/commands. At other times, pt did not respond. -AZ Orientation Oriented to person -AZ Following Commands Follows one step commands with repetition -AZ Safety Judgment Decreased awareness of need for assistance -AZ Compliance/Behavior Easy to engage -AZ Bed Mobility From 1 Supine -AZ Bed Mobility Type 1 To and from -AZ Bed Mobility to 1 Edge of bed -NC Level of Assistance 1 Maximum Assist x 1-2 -AZ Bed Mobility Comments 1 Once sitting at edge of bed, pt requires max assist for balance as pt is pushing to the left and loses balance posteriorly and to the left. -AZ Trials/Comments 1 deferred due to pt with poor sitting balance at edge of bed -NC Ambulation Comments 1 deferred as pt requires max assist to control neutral sitting posture at edgeof bed. -AZ RLE Comments Pt actively moves RLE. Not following commands for MMT -AZ LLE Comments Pt with little active movement LLE. Pt required assist to maneuver LLE out of bed and back in to bed. -AZ Safe Environment End of Therapy Session Patient left supine in bed;RN notified RN and transport in room to take pt down for MRI -AZ Prognosis Fair -NC Problem List Gait deviations;Decreased strength;Decreased range of motion;Decreased endurance;Impaired balance;Decreased mobility;Impaired judgement;Decreased safety awareness -NC Barriers to Discharge Current Mobility Status;Decreased caregiver support;Cognition;Decreased safety awareness -NC Plan Plan of care initiated;If this is the last note, consider this the discharge summary -NC PT Recommendation/Plan Inpatient Rehab Facility -AZ Patient at high risk for Falls;Readmission;Injury due to decreased ability to care for self -NC Recommend Inpatient Rehab/Acute Rehab due to Ability to actively participate in intensive therapy 3hours/day, 5 days/week or 900 minutes per week;Highly motivated to participate in therapy;Not at baseline due to impaired ability to complete ADLs;Impaired ability to complete functional mobility;Requires greater than 25% physical assistance with most ADL tasks;Requires greater than 25% physical assistance with most mobility tasks;Likely to return to the community at discharge with support systemin place;Requires multiple therapy disciplines to address functional deficits -AZ PT Frequency during current admission 5-7x/wk 1-2x/day -AZ Treatment/Interventions during current admission Balance Training;Bed mobility;Endurance training;Functional activity;Functional transfer training;Gait training;Parent/caregiver training and education;Range of motion;Strengthening;Therapeutic activity;Therapeutic exercise;Transfer training;Neuromuscular re-education -NC PT Equipment Recommended -- to be determined at rehab -NC PT Evaluation Complete Yes -AZ User Fish (r) = Recorded By, (t) = Taken By, (c) = Cosigned By Initials Name Effective Dates [place] Lizabeth, Taco L., PT 11/14/20 - PT TREATMENT (Last 168 Hours) PT Treatment No documentation. PT Notes 04/20/2024 4:57 PM Progress Notes signed by Taco Barone, PT * Plan of Care - Jossy Gonzalez - 04/21/2024 12:27 AM CDT Goals: Clinical Goals for the Shift: Pt safety, stable v/s, monitor for s/sx of strokes, blood sugar checking rest & comfort Summary: Pt resting on bed, A&O to self, with NS infusing well at 75 ml/hr, with fernandez Fr 16 connected to the urine bag, on tele, on SCD. Pt was anxious, relayed to SURGICAL TERRITORY MANAGER Jammie with new order made & carried out. Atarax given, pain meds given accordingly. Pt keeps searching for . Kept on comfortable position & kept monitored. Problem: Activity Goal: Capacity to carry out activities will improve Outcome: Progressing Goal: Mobility will improve Outcome: Progressing Problem: Coping Goal: Ability to verbalize positive feelings about self will improve Outcome: Progressing Problem: Nutritional Goal: Ability to chew and swallow food without choking will improve Outcome: Progressing Flowsheets (Taken 04/20/20241904) Ability to chew and swallow food without choking will improve: Monitor signs and symptoms of aspiration Provide aspiration precautions Goal: Dietary intake will improve Outcome: Progressing Problem: Physical Regulation Goal: Ability to maintain clinical measurements within normal limits will improve Outcome: Progressing Flowsheets (Taken 04/20/20241904) Ability to maintain clinical measurements within normal limits will improve: Monitor cardiovascular status Monitor medication effects Problem: Skin Integrity Goal: Risk for impaired skin integrity will decrease Outcome: Progressing Flowsheets (Taken 04/20/20241904) Risk for impaired skin integrity will decrease: Implement precautions to protect skin integrity Problem: Tissue Perfusion Goal: Cerebral tissue perfusion will improve Outcome: Progressing Goal: Neurologic status will improve Outcome: Progressing Problem: Swallowing Goal: Patient's ability to maintain safety and efficiency of swallowing without signs of aspirationwill improve Outcome: Progressing Problem: Bladder/Voiding Goal: Patient will demonstrate the ability to take care of indwelling catheter Outcome: Progressing Problem: Cognitive Goal: Patient will achieve stable or improved cognitive status Outcome: Progressing Problem: Safety Goal: Patient will demonstrate safety requirements appropriate to situation/environment Outcome: Progressing Problem: Infection Goal: Patient will have absence of infection during hospitalization Outcome: Progressing Problem: Fall Risk Goal: Patient will remain free from falls Outcome: Progressing Goal: Patient's ability to state ways to decrease the risk of falls will improve Outcome: Progressing Goal: Patient will remain free from injury from falls Outcome: Progressing Problem: Lack of Knowledge Goal: Ability to develop a pain control plan will improve Outcome: Progressing Flowsheets (Taken 04/20/20241904) Ability to develop a pain control plan will improve: Explain causes of pain and how long pain can be expected to last Teach information regarding pain management Educate pain scale for assessing level of pain Problem: Sensory Goal: Ability to identify factors that increase pain levels will improve while working to decrease the patient's pain levels Outcome: Progressing Flowsheets (Taken 04/20/20241904) Ability to identify factors that increase pain levels will improve while working to decrease patients pain levels: Assess pain status Observe non-verbal cues of discomfort, such as restlessness, muscle tension, or altered vital signs Problem: Coping Goal: Ability to cope will improve Outcome: Progressing Flowsheets (Taken 04/20/20241904) Ability to cope will Improve: Encourage vebalization of feelings surrounding pain Provide emotional support Problem: Health Behavior Goal: Identification of resources available to assist in meeting health care needs will improve Outcome: Progressing Flowsheets (Taken 04/20/20241904) Identification of resources available to assist in meeting health care needs will improve: Collaborate with pain management Problem: Cardiovascular Goal: Maintains optimal cardiac output and hemodynamic stability Outcome: Progressing Flowsheets (Taken 04/20/20241904) Maintain optimal cardiac output and hemodynamic Stability: Monitor vital signs, rhythm, and trends Assess quality of pulses, skin color and temperature Goal: Absence of cardiac dysrhythmias or at baseline Outcome: Progressing Flowsheets (Taken 04/20/20241904) Absence of cardiac dysrhythmias or at baseline: Continuous cardiac monitoring, monitor vital signs,obtain 12 lead EKG if indicated Problem: Genitourinary Goal: Absence of urinary retention Outcome: Progressing Flowsheets (Taken 04/20/20241904) Absence of urinary retention: Assess patient???s ability to void and empty bladder Assess amount and/or characteristics of urine Monitor intake/output and perform bladder scan as needed Goal: Urinary catheter remains patent Outcome: Progressing Flowsheets (Taken 04/20/2024 190) Urinary catheter remains patent: Assess patency of urinary catheter Problem: Discharge Planning Goal: Understanding discharge needs will improve Outcome: Progressing Flowsheets (Taken 04/20/2024 1905) Understanding of discharge needs will improve: Discuss information regarding discharge instructions Identify discharge learning needs (meds, wound care, etc.) Identify discharge barriers * Plan of Care - Corine Salazar LCSW - 04/20/2024 10:43 AM CDT Acknowledge Consult REFRESH TECHNICIAN consulted for need for complex higher level of care or shelter planning for care. No social service needs identified at this time. CM following for discharge planning and progression of care and can consult ss if needs arise. Corine Salazar LCSW 10:43 AM 04/20/2024 * Initial Assessments - Carlie Hancock, RN - 04/20/2024 10:15 AM CDT CM Initial Assessment Interview Note Information Obtained From: Spouse Name: Oneil (04/20/24 1014) Admission Source: Transfer from [facility] for evolving CVA and UIT. PT has last CVA on 04/07/24 resulting in L side paralysis Impression: Pt was at [facility] after CVA listed above. Spouse states pt has a had a total for 5 CVAs on back on on 2023 leaving her almost blind-pt only has vision in her RLQ per spouse, and very weak on the L after last CVA in Mar. Pt has not been home yet since last CVA, but goal is for spouse to take patient back home. Pt states until yesterday pt was pleasant and cooperative with treatment, however was not acting herself yesterday. PT/OT/ST to see here Plan Includes: returning to [facility], will need to send referral once we have PT/OT notes Primary Source of Transportation: Does the patient need discharge transport arranged?: Yes Has discharge transport been arranged?: No (04/20/241013) Health Insurance Coverage: [employer] Commerical Prescription Coverage: yes Pharmacy: [facility] [address] [address] [address] [facility] [id number] Primary Care Provider: William Craig MD Prior to Admission: Functional Status: Maximum assist with ADLs Primary Caregiver: Facility staff Support System: Spouse/Significant Other, Children Home Care Services: No Outpatient Services: No Durable Medical Equipment: None Living Arrangements: Spouse/significant other Type of Residence: Private residence Does patient wish to return to care facility?: Yes, wishes to return Steps in home?: No steps inside or outside Medication management: Needs Assistance (Comment) (04/20/2416) SDOH: Transportation: In the past 12 months, has lack of transportation kept you from medical appointments or from getting medications?: No In the past 12 months, has lack of transportation kept you from meetings, work, or from getting things needed for daily living?: No (04/20/241014) Financial Resource: How hard is it for you to pay for the very basics like food, housing, medical care, and heating?: Not hard at all (04/20/241014) Housing: In the last 12 months, was there a time when you were not able to pay the mortgage or rent on time?: No In the past 12 months, how many times have you moved where you were living?: 0 At any time in the past 12 months, were you homeless or living in a fci (including now)?: No (04/20/241014) Utilities: No, (04/20/241014) Social Connections: In a typical week, how many times do you talk on the phone with family, friends, or neighbors?: More than three times a week How often do you get together with friends or relatives?: Twice a week How often do you attend buddhism or scientology services?: 1 to 4 times per year Do you belong to any clubs or organizations such as buddhism groups, unions, fraternal or athletic groups, or school groups?: No How often do you attend meetings of the clubs or organizations you belong to?: Never Are you , , , , never , or living with a partner?: (04/20/24 1015) Food Insecurity: Within the past 12 months, you worried that your food would run out before you got the money to buymore.: Never true Within the past 12 months, the food you bought just didn't last and you didn't have money to get more.: Never true (04/20/24 1015) Behavioral Health Services: Behavioral Health Services: No (04/20/24 101) Anticipated Level of Care: Anticipated discharge level of care: Acute Rehab Pt/Family agrees with Anticipated Level of Care: Yes (04/20/241013) Patient expects to be Discharged to: Acute Rehab, (04/20/241013) Patient's Identified Problem/Goal Problem: Ensure acute medical needs are met and that patient has a safe discharge plan. Goal: Secure a discharge plan that patient/family are agreeable with and ensure patient has continuum of care. Case management will follow for discharge planning and send referrals as needed. Goals include: To assure continuity of care, To maximize coping skills, To assure patient is in a safe environment and To assure access to community resources. Plan includes: 1. Collaboration with Patient, Provider, Direct Care Nurse, Sand Hauler, and other members of theHealth Care Team to assure needed interventions completed. 2. Return patient to optimal level of self-care post discharge. 3. Radio Artist will follow for Discharge Planning - interventions as needed 4. Anticipated level of care at discharge 5. Planned Discharge Disposition Carlie Hancock RN * Plan of Care - Sosa Andino MD - 04/20/2024 8:31 AM CDT Pt w recent CVA w L UE and LLE weakness, HTN, DM, RA, presents to OSH ED from rehab for AMS 1-2 days. CTH concerning for new cva, also being treated for UTI w cefdinir Neuro consulted Placed on rocephin overnight MRI resulted Pt has had event monitoring December 2023, sinus rhythm, no afib, flutter mentioned see care everywhere Will request UA.Urine cx result from [facility] Husbands states fernandez placed in the last week or so Pt deny dysuria, discomfort w urination Major cva in January and in mar, was sjust transferred to rehab after stroke teated at [facility] [place]. LUE LLE paresis Pt appear at baseline now this early afternoon according to G[facility] was just restarted but taking as needed at rehab Altered Mental Status Worsening CVA; post recent CVA with left sided hemiplegia (Apr 07, 2024): Transferred from OSH for AMS likely 2/2 Worsening CVA based on CT head vs UTI. -CXR ordered to r/o any infectious processes -MRI brain w new acute.subacute cva bilaterally; CTA ordered -No recent ECHO results available (need requested from [facility]) -continue aspirin and statin -Neurochecks 4hrs -Fall precautions; up with assistance -PT/OT/ST eval and tx -Dr Rodgers, Neurology consulted -cont tele, pt not on ACs UTI: UA positive. >100 WBCs, 3+LEs -Urine culture pending, will request from rehab -Continue IV rocephin for now -Cont IVFs -Strict intake and output -Routine fernandez cath care -plan to dc fernandez tomorrow Type 2DM: -HgbA1c 6.2 -Blood glucose monitoring ACHS. -SSI ordered -Hold dose of metformin -Npo diet until speech therapy evaluates HTN: BP 100-110s/70-90s; normotensive -Hold antihypertensives to avoid hypotension -resume when appropriate -routine VS; monitor BP closely * Plan of Care - Jossy Gonzalez - 04/20/2024 6:32 AM CDT Goals: Clinical Goals for the Shift: Pt safety, stable v/s, IVF of NS 75 ml/hr, monitor for s/sx of strokes, rest & comfort Summary: Pt was not able to answer Admitting Req Infos. Problem: Activity Goal: Capacity to carry out activities will improve Outcome: Progressing Flowsheets (Taken 04/20/2024349) Capacity to carry out activites will improve: Identify effects of fatigue Goal: Mobility will improve Outcome: Progressing Flowsheets (Taken 04/20/2024349) Mobility will improve: Encourage mobilization to extent of ability Provide assistance with mobility Problem: Coping Goal: Ability to verbalize positive feelings about self will improve Outcome: Progressing Flowsheets (Taken 04/20/2024349) Ability to verbalize positive feelings about self will improve: Support identification of positive aspects of self Problem: Nutritional Goal: Ability to chew and swallow food without choking will improve Outcome: Progressing Flowsheets (Taken 04/20/2024349) Ability to chew and swallow food without choking will improve: Monitor signs and symptoms of aspiration Provide aspiration precautions Monitor ability to swallow Complete dysphagia screening Goal: Dietary intake will improve Outcome: Progressing Problem: Physical Regulation Goal: Ability to maintain clinical measurements within normal limits will improve Outcome: Progressing Flowsheets (Taken 04/20/2024349) Ability to maintain clinical measurements within normal limits will improve: Monitor cardiovascularstatus Problem: Respiratory Goal: Ability to state ways to decrease risk of aspiration will improve Outcome: Progressing Flowsheets (Taken 04/20/2024349) Ability to state ways to decrease risk of aspiration will improve: Monitor signs and symptoms of aspiration Provide aspiration precautions Problem: Skin Integrity Goal: Risk for impaired skin integrity will decrease Outcome: Progressing Flowsheets (Taken 04/20/2024349) Risk for impaired skin integrity will decrease: Implement precautions to protect skin integrity Problem: Tissue Perfusion Goal: Cerebral tissue perfusion will improve Outcome: Progressing Flowsheets (Taken 04/20/2024349) Cerebral tissue perfusion will improve: Assess signs and symptoms of increased intracranial pressure Goal: Neurologic status will improve Outcome: Progressing Flowsheets (Taken 04/20/2024349) Neurologic status will improve: Monitor neurologic status Problem: Swallowing Goal: Patient's ability to maintain safety and efficiency of swallowing without signs of aspirationwill improve Outcome: Progressing Flowsheets (Taken 04/20/2024349) Patient's ability to maintain safety and effiency of swallowing without signs of aspiration will improve: Monitor signs and symptoms of aspiration Problem: Bladder/Voiding Goal: Patient will demonstrate the ability to take care of indwelling catheter Outcome: Progressing Flowsheets (Taken 04/20/2024 0350) Patient will demonstrate the ability to take care of indwelling catheter: Monitor intake and output Educate patient and family on signs/symptoms of a UTI Problem: Cognitive Goal: Patient will achieve stable or improved cognitive status Outcome: Progressing Flowsheets (Taken 04/20/2024 035) Patient will achieve stable or improved cognitive status: Assess for and report changes in cognitive status Assess cognitive status with reality orientation questions and use of environmental aids Problem: Safety Goal: Patient will demonstrate safety requirements appropriate to situation/environment Outcome: Progressing Problem: Infection Goal: Patient will have absence of infection during hospitalization Outcome: Progressing Flowsheets (Taken 04/20/2024 035) Patient will have absence of infection during hospitalization: Asess and monitor for signs and symptoms of infection Monitor lab/diagnostic results Monitor all insertion sites i.e., indwelling lines, tubes and drains Problem: Fall Risk Goal: Patient will remain free from falls Outcome: Progressing Flowsheets (Taken 04/20/2024349) Patient will remain free from falls: Assess risk factors for falls Implement fall prevention measures Collaborate with other disciplines Goal: Patient's ability to state ways to decrease the risk of falls will improve Outcome: Progressing Flowsheets (Taken 04/20/2024349) Patient's ability to state ways to decrease the risk of falls will improve: Teach fall prevention measures Teach information regarding appropriate environmental changes Goal: Patient will remain free from injury from falls Outcome: Progressing Flowsheets (Taken 04/20/2024349) Patient will remain free from injury from falls: Provide safe environment for activities of daily living in hospital environment Problem: Lack of Knowledge Goal: Ability to develop a pain control plan will improve Outcome: Progressing Problem: Medication Goal: Satisfaction with pain management medication regimen will improve Outcome: Progressing Problem: Sensory Goal: Ability to identify factors that increase pain levels will improve while working to decrease the patient's pain levels Outcome: Progressing Problem: Coping Goal: Ability to cope will improve Outcome: Progressing Problem: Health Behavior Goal: Identification of resources available to assist in meeting health care needs will improve Outcome: Progressing Problem: Cardiovascular Goal: Maintains optimal cardiac output and hemodynamic stability Outcome: Progressing Flowsheets (Taken 04/20/2024349) Maintain optimal cardiac output and hemodynamic Stability: Monitor vital signs, rhythm, and trends Assess quality of pulses, skin color and temperature Goal: Absence of cardiac dysrhythmias or at baseline Outcome: Progressing Flowsheets (Taken 04/20/2024 0350) Absence of cardiac dysrhythmias or at baseline: Continuous cardiac monitoring, monitor vital signs,obtain 12 lead EKG if indicated Problem: Genitourinary Goal: Absence of urinary retention Outcome: Progressing Flowsheets (Taken 04/20/2024 0350) Absence of urinary retention: Assess patient???s ability to void and empty bladder Assess amount and/or characteristics of urine Monitor intake/output and perform bladder scan as needed Goal: Urinary catheter remains patent Outcome: Progressing Flowsheets (Taken 04/20/2024 0350) Urinary catheter remains patent: Assess patency of urinary catheter Problem: Skin Integrity Impairment Risk Goal: Mobility will improve Outcome: Progressing Goal: Understanding of ways to prevent future skin breakdown will improve Outcome: Progressing Goal: Nutritional status will improve Outcome: Progressing Goal: Risk for impaired skin integrity will decrease Outcome: Progressing documented in this encounter Plan of Treatment [...] AUTO Timed 05/01/2024 11: 47 PM CDT CBC WITH AUTO DIFFERENTIAL Timed 05/01/2024 11:47 PM CDT RENAL FUNCTION PANEL Timed 05/01/2024 11:47 PM CDT POCT GLUCOSE DEVICE Routine 05/01/2024 7 :56 PM CDT POCT GLUCOSE DEVICE Routine 05/01/2024 4 :33 PM CDT POCT GLUCOSE DEVICE Routine 05/01/2024 1 1:19 AM CDT EGFR Routine 05/01/2024 7:09 AM CDT DIFFERENTIAL AUTO Routine 05/01/2024 7:0 9 AM CDT POCT GLUCOSE DEVICE Routine 05/01/2024 7 :09 AM CDT CBC WITH AUTO DIFFERENTIAL Routine 05/01/2024 7:09 AM CDT MAGNESIUM Routine 05/01/2024 7:09 AM CDT COMPREHENSIVE METABOLIC PANEL Routine 05/01/2024 7:09 AM CDT POCT GLUCOSE DEVICE Routine 04/30/2024 8 :32 PM CDT POCT GLUCOSE DEVICE Routine 04/30/2024 4 :42 PM CDT POCT GLUCOSE DEVICE Routine 04/30/2024 1 1:50 AM CDT EGFR Routine 04/30/2024 10:01 AM CDT DIFFERENTIAL AUTO Routine 04/30/2024 10: 01 AM CDT CBC WITH AUTO DIFFERENTIAL Routine 04/30/2024 10:01 AM CDT MAGNESIUM Routine 04/30/2024 10:01 AM CDT COMPREHENSIVE METABOLIC PANEL Routine 04/30/2024 10:01 AM CDT POCT GLUCOSE [...] AUTO Timed 04/29/2024 12: 18 AM CDT CBC WITH AUTO DIFFERENTIAL Timed 04/29/2024 12:18 AM CDT RENAL FUNCTION PANEL Timed 04/29/2024 12:18 AM CDT POCT GLUCOSE [...] AUTO Timed 04/27/2024 12: 42 AM CDT CBC WITH AUTO DIFFERENTIAL Timed 04/27/2024 12:42 AM CDT RENAL FUNCTION PANEL Timed 04/27/2024 12:42 AM CDT POCT GLUCOSE [...] AUTO Routine 04/25/2024 6:4 2 AM CDT CBC WITH AUTO DIFFERENTIAL Routine 04/25/2024 6:42 AM CDT RENAL FUNCTION PANEL Routine 04/25/2024 6:42 AM CDT POCT GLUCOSE [...] AUTO Routine 04/24/2024 7:0 1 AM CDT CBC WITH AUTO DIFFERENTIAL Routine 04/24/2024 7:01 AM CDT MAGNESIUM Add-On 04/24/2024 7:01 AM CDT RENAL FUNCTION PANEL Routine 04/24/2024 7:01 AM CDT ECG 12-LEAD STAT 04/24/2024 12:14 AM CDT POCT GLUCOSE DEVICE Routine 04/23/2024 8 :31 PM CDT POCT GLUCOSE DEVICE Routine 04/23/2024 4 :55 PM CDT POCT GLUCOSE DEVICE Routine 04/23/2024 1 1:54 AM CDT EGFR Routine 04/23/2024 10:24 AM CDT DIFFERENTIAL AUTO Routine 04/23/2024 10: 24 AM CDT CBC WITH AUTO DIFFERENTIAL Routine 04/23/2024 10:24 AM CDT RENAL FUNCTION PANEL Routine 04/23/2024 10:24 AM CDT POCT GLUCOSE [...] AUTO Routine 04/22/2024 7:1 6 AM CDT CBC WITH AUTO DIFFERENTIAL Routine 04/22/2024 7:16 AM CDT RENAL FUNCTION PANEL Routine 04/22/2024 7:16 AM CDT POCT GLUCOSE [...] DEVICE Routine 04/20/2024 8 :09 AM CDT LACTATE Routine 04/20/2024 4:24 AM CDT EGFR STAT 04/20/2024 4:24 AM CDT DIFFERENTIAL AUTO Routine 04/20/2024 4:2 4 AM CDT THYROID FUNCTION CASCADE Routine 04/20/2024 4:24 AM CDT CBC WITH AUTO DIFFERENTIAL Routine 04/20/2024 4:24 AM CDT VITAMIN D 25 HYDROXY Routine 04/20/2024 4:24 AM CDT PHOSPHORUS Routine 04/20/2024 4:24 AM CDT MAGNESIUM STAT 04/20/2024 4:24 AM CDT HEMOGLOBIN A1C Routine 04/20/2024 4:24 AM CDT VITAMIN B12 Routine 04/20/2024 4:24 AM CDT AMMONIA Routine 04/20/2024 4:24 AM CDT LIPID PANEL Routine 04/20/2024 4:24 AM CDT COMPREHENSIVE METABOLIC PANEL STAT 04/20/2024 4:[address] OUTSIDE REFERENCE Routine 04/19/2024 5:20 PM CDT documented in this encounter Results * POCT glucose (05/03/2024 11:28 AM CDT) Glucose, POC 174 70 - 199 mg/dL Glucose comment 1 Use This Result [facility] Blood 05/03/2024 11:2 8 AM CDT 05/03/2024 11:28 AM CDT Hailey Carney MD LAB POCT ORDERABLES - CALDERON CE Final Result Performing Organization Address [facility] Co de Phone Number HU[address] [place] [address] * POCT glucose (05/03/2024 7:54 AM CDT) Glucose, POC 121 70 - 199 mg/dL Glucose comment 1 Use This Result [facility] Blood 05/03/2024 7:54 AM CDT 05/03/2024 7:54 AM CDT Hailey Carney MD LAB POCT ORDERABLES - CALDERON CE Final Result Performing Organization Address [facility] Co de Phone Number [address] [employer] [place] [address] * POCT glucose (05/02/2024 8:42 PM CDT) Glucose, POC 138 70 - 199 mg/dL Glucose comment 1 Use This Result [facility] Blood 05/02/2024 8:42 PM CDT 05/02/2024 8:42 PM CDT Thang Del Valle DO LAB POCT ORDERABLES - D EVICE Final Result Performing Organization Address City/[facility]/ZIP Co de Phone Number [address] [place] [address] * POCT glucose (05/02/2024 4:45 PM CDT) Glucose, POC 139 70 - 199 mg/dL Glucose comment 1 Use This Result [facility] Blood 05/02/2024 4:45 PM CDT 05/02/2024 4:45 PM CDT Thang Frenchapurayil DO LAB POCT ORDERABLES - D EVICE Final Result Performing Organization Address City/[facility] Co de Phone Number [facility] [address] [place] [address] * POCT glucose (05/02/2024 11:54 AM CDT) Glucose, POC 142 70 - 199 mg/dL Blood 05/02/2024 11:5 4 AM CDT 05/02/2024 11:54 AM CDT Thang Pradol DO LAB POCT ORDERABLES - D EVICE Final Result Performing Organization Address City/[facility] Co de Phone Number [address] [place] [address] * POCT glucose (05/02/2024 8:08 AM CDT) Glucose, POC 124 70 - 199 mg/dL Glucose comment 1 Use This Result [facility] Blood 05/02/2024 8:08 AM CDT 05/02/2024 8:08 AM CDT Thang Scotturayil DO LAB POCT ORDERABLES - D EVICE Final Result Performing Organization Address City/[facility] Co de Phone Number [address] [place] [address] * eGFR (05/01/2024 11:47 PM CDT) Pathologist [facility] eGFR >90 >=60 mL/min/1. 73 m2 Comment: [...] PM CDT 05/01/2024 11:52 PM CDT us Sosa Andino MD LAB BLOOD ORDERABLES Final Resul t [facility] [id number] [facility] Department [place] [address] * Differential, auto (05/01/2024 11:47 PM CDT) Pathologist [facility] Neutrophil abs 2.3 1.5 - 6.5 K/cumm Imm gran abs 0.0 0.0 - 0.1 K/cumm [facility] Lymphocyte abs 1.4 0.8 - 3.3 K/cumm [facility] Monocyte abs 0.7 0.2 - 0.8 K/cumm [facility] Eosinophil abs 0.4 0.0 - 0.5 K/cumm [facility] Basophil abs 0.1 0.0 - 0.1 K/cumm [facility] Neutrophil pct 46.8 % [facility] Comment: Interpretive Data Percent cell count reference ranges are not reported, since discordance with absolute values may lead to misinterpretation of CBC data. Current Interpretive Data was last revised on 2017. Imm gran pct 0.2 % [facility] Comment: Interpretive Data Percent cell count reference ranges are not reported, since discordance with absolute values may lead to misinterpretation of CBC data. Current Interpretive Data was last revised on 2017. Lymphocyte pct 29.1 % [facility] Comment: Interpretive Data Percent cell count reference ranges are not reported, since discordance with absolute values may lead to misinterpretation of CBC data. Current Interpretive Data was last revised on 2017. Monocyte pct 13.6 % [facility] Comment: Interpretive Data Percent cell count reference ranges are not reported, since discordance with absolute values may lead to misinterpretation of CBC data. Current Interpretive Data was last revised on 2017. Eosinophil pct 8.9 % [facility] Comment: Interpretive Data Percent cell count reference ranges are not reported, since discordance with absolute values may lead to misinterpretation of CBC data. Current Interpretive Data was last revised on 2017. Basophil pct 1.4 % [facility] Comment: Interpretive Data Percent cell count reference ranges are not reported, since discordance with absolute values may lead to misinterpretation of CBC data. Current Interpretive Data was last revised on 2017. Blood 05/01/2024 11:4 7 PM CDT 05/01/2024 11:52 PM CDT us Sosa Andino MD LAB BLOOD ORDERABLES Final Resul t [facility] [id number] [facility] Department [place] [address] * Renal function panel (05/01/2024 11:47 PM CDT) Sodium 141 135 - 145 mmol/L Potassium, pl 4.2 3.3 - 4.9 mmol/L [facility] Comment:Hemolyzed; Potassium value may be falsely elevated by as much as 1.0 mmol/L. Suggest redraw and reanalysis. Chloride 104 97 - 110 mmol/L [facility] CO2 27 22 - 32 mmol/L [facility] Anion gap 10 2 - 15 mmol/L [facility] BUN 25 6 - 25 mg/dL [facility] Creatinine 0.74 0.60 - 1.10 mg/dL [facility] Glucose 122 70 - 199 mg/dL [facility] Comment: Interpretive Data Fasting glucose >/= 126 [...] 2022. Calcium 9.7 8.5 - 10.3 mg/dL [facility] Phosphorus, pl 3.9 2.3 - 4.5 mg/dL [facility] Albumin 3.8 3.5 - 5.0 g/dL [facility] Blood 05/01/2024 11:4 7 PM CDT 05/01/2024 11:52 PM CDT Sosa Andino MD LAB BLOOD ORDERABLES Final Resul t [facility] [id number] [facility] Department [place] [address] * (ABNORMAL) CBC with auto differential (05/01/2024 11:47 PM CDT) Pathologist [facility] WBC 4.9 3.8 - 9.9 K/cumm Hgb 8.3(L) 11.9 - 15.5 g/dL [facility] Hct 26.6(L) 35.6 - 45.5 % [facility] Plt 232 150 - 400 K/cumm [facility] MPV 10.6 9.1 - 12.3 fL [facility] RBC 3.05(L) 3.90 - 5.20 M/cumm [facility] MCV 87.2 81.3 - 96.4 fL [facility] MCH 27.2 27.1 - 33.3 pg [facility] MCHC 31.2(L) 32.3 - 35.7 g/dL [facility] RDW CV 15.1(H) 11.1 - 14.9 % [facility] RDW SD 47.7 35.7 - 48.1 fL [facility] NRBC abs 0.00 0.00 - 0.01 K/cumm [facility] Blood 05/01/2024 11:4 7 PM CDT 05/01/2024 11:52 PM CDT Sosa Andino MD LAB BLOOD ORDERABLES Final Resul t Performing Organization Address [facility] Co de Phone Number [address] [place] [address] * POCT glucose (05/01/2024 7:56 PM CDT) Glucose, POC 147 70 - 199 mg/dL Glucose comment 1 Use This Result [facility] Blood 05/01/2024 7:56 PM CDT 05/01/2024 7:56 PM CDT us Thang Del Valle DO LAB POCT ORDERABLES - D EVICE Final Result Performing Organization Address [facility] Co de Phone Number [address] [place] [address] * POCT glucose (05/01/2024 4:33 PM CDT) Glucose, POC 128 70 - 199 mg/dL Glucose comment 1 Use This Result [facility] Blood 05/01/2024 4:33 PM CDT 05/01/2024 4:33 PM CDT Thang Del Valle DO LAB POCT ORDERABLES - D EVICE Final Result Performing Organization Address City/[facility] Co de Phone Number [facility] [address] [facility] Department [place] [address] * POCT glucose (05/01/2024 11:19 AM CDT) [facility] Glucose, POC 151 70 - 199 mg/dL Glucose comment 1 Use This Result [facility] Blood 05/01/2024 11:1 9 AM CDT 05/01/2024 11:19 AM CDT us Thang Del Valle DO LAB POCT ORDERABLES - D EVICE Final Result Performing Organization Address [facility] Co de Phone Number [facility] [place] [address] * eGFR (05/01/2024 7:09 AM CDT) [facility] eGFR >90 >=60 mL/min/1. 73 m2 Comment: [...] CDT 05/01/2024 7:48 AM CDT us Thang VillaAlison Del Valle DO LAB BLOOD ORDERABLES Fi nal Result [facility] [id number] [facility] Department [place] [address] * Differential, auto (05/01/2024 7:09 AM CDT) Neutrophil abs 2.7 1.5 - 6.5 K/cumm Imm gran abs 0.0 0.0 - 0.1 K/cumm [facility] Lymphocyte abs 1.5 0.8 - 3.3 K/cumm [facility] Monocyte abs 0.8 0.2 - 0.8 K/cumm [facility] Eosinophil abs 0.5 0.0 - 0.5 K/cumm [facility] Basophil abs 0.1 0.0 - 0.1 K/cumm [facility] Neutrophil pct 48.3 % [facility] Comment: Interpretive Data Percent cell count reference ranges are not reported, since discordance with absolute values may lead to misinterpretation of CBC data. Current Interpretive Data was last revised on 2017. Imm gran pct 0.2 % [facility] Comment: Interpretive Data Percent cell count reference ranges are not reported, since discordance with absolute values may lead to misinterpretation of CBC data. Current Interpretive Data was last revised on 2017. Lymphocyte pct 26.2 % [facility] Comment: Interpretive Data Percent cell count reference ranges are not reported, since discordance with absolute values may lead to misinterpretation of CBC data. Current Interpretive Data was last revised on 2017. Monocyte pct 14.2 % [facility] Comment: Interpretive Data Percent cell count reference ranges are not reported, since discordance with absolute values may lead to misinterpretation of CBC data. Current Interpretive Data was last revised on 2017. Eosinophil pct 9.7 % [facility] Comment: Interpretive Data Percent cell count reference ranges are not reported, since discordance with absolute values may lead to misinterpretation of CBC data. Current Interpretive Data was last revised on 2017. Basophil pct 1.4 % [facility] Comment: Interpretive Data Percent cell count reference ranges are not reported, since discordance with absolute values may lead to misinterpretation of CBC data. Current Interpretive Data was last revised on 2017. Blood 05/01/2024 7:09 AM CDT 05/01/2024 7:48 AM CDT Thang Scotturarohinil DO LAB BLOOD ORDERABLES Fi nal Result Performing Organization Address City/[facility] Co de Phone Number [facility] [address] [address] * POCT glucose (05/01/2024 7:09 AM CDT) Glucose, POC 122 70 - 199 mg/dL Glucose comment 1 Use This Result [facility] Blood 05/01/2024 7:09 AM CDT 05/01/2024 7:09 AM CDT Thang Del Valle DO LAB POCT ORDERABLES - D EVICE Final Result Performing Organization Address [facility] Co de Phone Number [address] [address] * Magnesium (05/01/2024 7:09 AM CDT) Magnesium 2.1 1.4 - 2.5 mg/dL Blood 05/01/2024 7:09 AM CDT 05/01/2024 7:48 AM CDT Thang Scotturarohinil DO LAB BLOOD ORDERABLES Fi nal Result Performing Organization Address City/[facility] Co de Phone Number [facility] [address] [place] [address] * (ABNORMAL) Comprehensive metabolic panel (05/01/2024 7:09 AM CDT) Pathologist [facility] Sodium 144 135 - 145 mmol/L Potassium, pl 3.8 3.3 - 4.9 mmol/L [facility] Chloride 107 97 - 110 mmol/L [facility] CO2 27 22 - 32 mmol/L [facility] Anion gap 10 2 - 15 mmol/L [facility] BUN 26(H) 6 - 25 mg/dL [facility] Creatinine 0.72 0.60 - 1.10 mg/dL [facility] Glucose 114 70 - 199 mg/dL [facility] Comment: Interpretive Data Fasting glucose >/= 126 [...] 2022. Calcium 9.8 8.5 - 10.3 mg/dL [facility] Bilirubin, total 0.3 0.1 - 1.2 mg/dL [facility] Protein, pl 6.5 6.5 - 8.5 g/dL [facility] Albumin 3.8 3.5 - 5.0 g/dL [facility] Alk phos 69 40 - 130 Units/L [facility] ALT 9 7 - 45 Units/L [facility] AST 29 10 - 45 Units/L [facility] Blood 05/01/2024 7:09 AM CDT 05/01/2024 7:48 AM CDT us Thang Del Valle DO LAB BLOOD ORDERABLES Fi nal Result [facility] [address] [facility] Department [place] [address] * (ABNORMAL) CBC with auto differential (05/01/2024 7:09 AM CDT) [facility] WBC 5.6 3.8 - 9.9 K/cumm Hgb 8.9(L) 11.9 - 15.5 g/dL [facility] Hct 28.5(L) 35.6 - 45.5 % [facility] Plt 236 150 - 400 K/cumm [facility] MPV 10.8 9.1 - 12.3 fL [facility] RBC 3.26(L) 3.90 - 5.20 M/cumm [facility] MCV 87.4 81.3 - 96.4 fL [facility] MCH 27.3 27.1 - 33.3 pg [facility] MCHC 31.2(L) 32.3 - 35.7 g/dL [facility] RDW CV 14.9 11.1 - 14.9 % [facility] RDW SD 47.7 35.7 - 48.1 fL [facility] NRBC abs 0.00 0.00 - 0.01 K/cumm [facility] Blood 05/01/2024 7:09 AM CDT 05/01/2024 7:48 AM CDT Thang Del Valle DO LAB BLOOD ORDERABLES Fi nal Result Performing Organization Address City/[facility]/ZIP Co de Phone Number [address] [employer] [place], [place] [id number] * POCT glucose (04/30/2024 8:32 PM CDT) Glucose, POC 117 70 - 199 mg/dL Glucose comment 1 Use This Result [facility] Blood 04/30/2024 8:32 PM CDT 04/30/2024 8:32 PM CDT Thnag Del Valle DO LAB POCT ORDERABLES - D EVICE Final Result Performing Organization Address City/[facility]/ZIP Co de Phone Number [address] [place] [address] * POCT glucose (04/30/2024 4:42 PM CDT) Glucose, POC 157 70 - 199 mg/dL Glucose comment 1 Use This Result [facility] Glucose comment 2 RN/MD Notified [facility] Blood 04/30/2024 4:42 PM CDT 04/30/2024 4:42 PM CDT Thang Del Valle DO LAB POCT ORDERABLES - D EVICE Final Result Performing Organization Address [facility] Co de Phone Number [address] [address] * POCT glucose (04/30/2024 11:50 AM CDT) Glucose, POC 123 70 - 199 mg/dL Glucose comment 1 Use This Result [facility] Blood 04/30/2024 11:5 0 AM CDT 04/30/2024 11:50 AM CDT Thang Del Valle DO LAB POCT ORDERABLES - D EVICE Final Result Performing Organization Address [facility] de Phone Number [address] [address] * eGFR (04/30/2024 10:01 AM CDT) [facility] eGFR >90 >=60 mL/min/1. 73 m2 Comment: [...] DO LAB BLOOD ORDERABLES Fi nal Result [place] [id number] [facility] Department [place] [address] * (ABNORMAL) Differential, auto (04/30/2024 10:01 AM CDT) Neutrophil abs 2.8 1.5 - 6.5 K/cumm Imm gran abs 0.0 0.0 - 0.1 K/cumm [facility] Lymphocyte abs 1.6 0.8 - 3.3 K/cumm [facility] Monocyte abs 0.7 0.2 - 0.8 K/cumm [facility] Eosinophil abs 0.6(H) 0.0 - 0.5 K/cumm [facility] Basophil abs 0.1 0.0 - 0.1 K/cumm [facility] Neutrophil pct 48.9 % [facility] Comment: Interpretive Data Percent cell count reference ranges are not reported, since discordance with absolute values may lead to misinterpretation of CBC data. Current Interpretive Data was last revised on 2017. Imm gran pct 0.2 % [facility] Comment: Interpretive Data Percent cell count reference ranges are not reported, since discordance with absolute values may lead to misinterpretation of CBC data. Current Interpretive Data was last revised on 2017. Lymphocyte pct 27.7 % [facility] Comment: Interpretive Data Percent cell count reference ranges are not reported, since discordance with absolute values may lead to misinterpretation of CBC data. Current Interpretive Data was last revised on 2017. Monocyte pct 11.4 % [facility] Comment: Interpretive Data Percent cell count reference ranges are not reported, since discordance with absolute values may lead to misinterpretation of CBC data. Current Interpretive Data was last revised on 2017. Eosinophil pct 10.2 % [facility] Comment: Interpretive Data Percent cell count reference ranges are not reported, since discordance with absolute values may lead to misinterpretation of CBC data. Current Interpretive Data was last revised on 2017. Basophil pct 1.6 % [facility] Comment: Interpretive Data Percent cell count reference ranges are not reported, since discordance with absolute values may lead to misinterpretation of CBC data. Current Interpretive Data was last revised on 2017. Blood 04/30/2024 10:0 1 AM CDT 04/30/2024 10:17 AM CDT Thang Del Valle LAB BLOOD ORDERABLES Fi nal Result Performing Organization Address [facility] de Phone Number [address] [address] * Magnesium (04/30/2024 10:01 AM CDT) [facility] Magnesium 2.3 1.4 - 2.5 mg/dL Blood 04/30/2024 10:0 1 AM CDT 04/30/2024 10:17 AM CDT Thang Mateo [employer] LAB BLOOD ORDERABLES Fi nal Result Performing Organization Address [facility] Co de Phone Number [address] [address] * Comprehensive metabolic panel (04/30/2024 10:01 AM CDT) Pathologist [facility] Sodium 145 135 - 145 mmol/L Potassium, pl 3.7 3.3 - 4.9 mmol/L [facility] Chloride 106 97 - 110 mmol/L [facility] CO2 28 22 - 32 mmol/L [facility] Anion gap 11 2 - 15 mmol/L [facility] BUN 24 6 - 25 mg/dL [facility] Creatinine 0.72 0.60 - 1.10 mg/dL [facility] Glucose 112 70 - 199 mg/dL [facility] Comment: Interpretive Data Fasting glucose >/= 126 [...] 2022. Calcium 9.5 8.5 - 10.3 mg/dL [facility] Bilirubin, total 0.3 0.1 - 1.2 mg/dL [facility] Protein, pl 6.6 6.5 - 8.5 g/dL [facility] Albumin 4.0 3.5 - 5.0 g/dL [facility] Alk phos 70 40 - 130 Units/L [facility] ALT 10 7 - 45 Units/L [facility] AST 25 10 - 45 Units/L [facility] Blood 04/30/2024 10:0 1 AM CDT 04/30/2024 10:17 AM CDT Thang Del Valle DO LAB BLOOD ORDERABLES nal Result [facility] [id number] [facility] Department [place] [address] * (ABNORMAL) CBC with auto differential (04/30/2024 10:01 AM CDT) Pathologist [facility] WBC 5.7 3.8 - 9.9 K/cumm Hgb 9.1(L) 11.9 - 15.5 g/dL [facility] Hct 28.5(L) 35.6 - 45.5 % [facility] Plt 233 150 - 400 K/cumm [facility] MPV 10.7 9.1 - 12.3 fL [facility] RBC 3.27(L) 3.90 - 5.20 M/cumm [facility] MCV 87.2 81.3 - 96.4 fL [facility] MCH 27.8 27.1 - 33.3 pg [facility] MCHC 31.9(L) 32.3 - 35.7 g/dL [facility] RDW CV 15.0(H) 11.1 - 14.9 % [facility] RDW SD 47.3 35.7 - 48.1 fL [facility] NRBC abs 0.00 0.00 - 0.01 K/cumm [facility] Blood 04/30/2024 10:0 1 AM CDT 04/30/2024 10:17 AM CDT Thang Del Valle DO LAB BLOOD ORDERABLES Fi nal Result Performing Organization Address [facility] Co de Phone Number NADINE [address] [employer] [place] [address] * POCT glucose (04/30/2024 8:19 AM CDT) Glucose, POC 127 70 - 199 mg/dL Blood 04/30/2024 8:19 AM CDT 04/30/2024 8:19 AM CDT Thang Del Valle DO LAB POCT ORDERABLES - D EVICE Final Result Performing Organization Address [facility] Co de Phone Number [address] [place] [address] * POCT glucose (04/29/2024 7:50 PM CDT) Glucose, POC 124 70 - 199 mg/dL Glucose comment 1 Use This Result [facility] Blood 04/29/2024 7:50 PM CDT 04/29/2024 7:50 PM CDT Giancarlo Durant MD LAB POCT ORDERABLES - DEVIC E Final Result Performing Organization Address City/[facility] Co de Phone Number NADINE [address] [address] * POCT glucose (04/29/2024 4:00 PM CDT) Glucose, POC 133 70 - 199 mg/dL Glucose comment 1 Use This Result [facility] Glucose comment 2 RN/MD Notified NADINE Blood 04/29/2024 4:00 PM CDT 04/29/2024 4:00 PM CDT us Giancarlo Durant MD LAB POCT ORDERABLES - DEVIC E Final Result Performing Organization Address [facility] de Phone Number NADINE [address] [address] * POCT glucose (04/29/2024 12:01 PM CDT) Glucose, POC 128 70 - 199 mg/dL Glucose comment 1 Use This Result [facility] Glucose comment 2 RN/MD Notified NADINE Blood 04/29/2024 12:0 1 PM CDT 04/29/2024 12:01 PM CDT us Giancarlo Durant MD LAB POCT ORDERABLES - DEVIC E Final Result Performing Organization Address [facility] de Phone Number [address] [address] * POCT glucose (04/29/2024 7:16 AM CDT) Glucose, POC 132 70 - 199 mg/dL Glucose comment 1 Use This Result [facility] Glucose comment 2 RN/MD Notified NADINE Blood 04/29/2024 7:16 AM CDT 04/29/2024 7:16 AM CDT us Giancarlo Durant MD LAB POCT ORDERABLES - DEVIC E Final Result NADINE [facility] Department [place] [address] * eGFR (04/29/2024 12:18 AM CDT) Pathologist [facility] eGFR 88 >=60 mL/min/1. 73 m2 Comment: [...] AM CDT 04/29/2024 12:39 AM CDT us Sosa Andino MD LAB BLOOD ORDERABLES Final Resul t NADINE [facility] Department [place] [address] * Differential, auto (04/29/2024 12:18 AM CDT) [facility] Neutrophil abs 3.3 1.5 - 6.5 K/cumm Imm gran abs 0.0 0.0 - 0.1 K/cumm [facility] Lymphocyte abs 2.2 0.8 - 3.3 K/cumm [facility] Monocyte abs 0.7 0.2 - 0.8 K/cumm [facility] Eosinophil abs 0.5 0.0 - 0.5 K/cumm [facility] Basophil abs 0.1 0.0 - 0.1 K/cumm [facility] Neutrophil pct 48.8 % [facility] Comment: Interpretive Data Percent cell count reference ranges are not reported, since discordance with absolute values may lead to misinterpretation of CBC data. Current Interpretive Data was last revised on 2017. Imm gran pct 0.3 % [facility] Comment: Interpretive Data Percent cell count reference ranges are not reported, since discordance with absolute values may lead to misinterpretation of CBC data. Current Interpretive Data was last revised on 2017. Lymphocyte pct 31.9 % [facility] Comment: Interpretive Data Percent cell count reference ranges are not reported, since discordance with absolute values may lead to misinterpretation of CBC data. Current Interpretive Data was last revised on 2017. Monocyte pct 10.5 % [facility] Comment: Interpretive Data Percent cell count reference ranges are not reported, since discordance with absolute values may lead to misinterpretation of CBC data. Current Interpretive Data was last revised on 2017. Eosinophil pct 7.3 % [facility] Comment: Interpretive Data Percent cell count reference ranges are not reported, since discordance with absolute values may lead to misinterpretation of CBC data. Current Interpretive Data was last revised on 2017. Basophil pct 1.2 % [facility] Comment: Interpretive Data Percent cell count reference ranges are not reported, since discordance with absolute values may lead to misinterpretation of CBC data. Current Interpretive Data was last revised on 2017. Blood 04/29/2024 12:1 8 AM CDT 04/29/2024 12:39 AM CDT us Sosa Andino MD LAB BLOOD ORDERABLES Final Resul t NADINE [address] [facility] Department [place] [address] * (ABNORMAL) Renal function panel (04/29/2024 12:18 AM CDT) Pathologist [facility] Sodium 143 135 - 145 mmol/L Potassium, pl 3.7 3.3 - 4.9 mmol/L [facility] Chloride 106 97 - 110 mmol/L [facility] CO2 27 22 - 32 mmol/L [facility] Anion gap 10 2 - 15 mmol/L [facility] BUN 29(H) 6 - 25 mg/dL [facility] Creatinine 0.76 0.60 - 1.10 mg/dL [facility] Glucose 144 70 - 199 mg/dL [facility] Comment: Interpretive Data Fasting glucose >/= 126 [...] 2022. Calcium 10.2 8.5 - 10.3 mg/dL [facility] Phosphorus, pl 3.7 2.3 - 4.5 mg/dL [facility] Albumin 3.9 3.5 - 5.0 g/dL [facility] Blood 04/29/2024 12:1 8 AM CDT 04/29/2024 12:39 AM CDT us Sosa Andino MD LAB BLOOD ORDERABLES Final Resul t [facility] [address] [facility] Department [place] [address] * (ABNORMAL) CBC with auto differential (04/29/2024 12:18 AM CDT) [facility] WBC 6.8 3.8 - 9.9 K/cumm Hgb 9.0(L) 11.9 - 15.5 g/dL [facility] Hct 27.8(L) 35.6 - 45.5 % [facility] Plt 249 150 - 400 K/cumm [facility] MPV 10.6 9.1 - 12.3 fL [facility] RBC 3.26(L) 3.90 - 5.20 M/cumm [facility] MCV 85.3 81.3 - 96.4 fL [facility] MCH 27.6 27.1 - 33.3 pg [facility] MCHC 32.4 32.3 - 35.7 g/dL [facility] RDW CV 14.8 11.1 - 14.9 % [facility] RDW SD 45.7 35.7 - 48.1 fL [facility] NRBC abs 0.00 0.00 - 0.01 K/cumm [facility] Blood 04/29/2024 12:1 8 AM CDT 04/29/2024 12:39 AM CDT Sosa Andino MD LAB BLOOD ORDERABLES Final Resul t Performing Organization Address City/[facility] de Phone Number [address] [place] [address] * POCT glucose (04/28/2024 8:11 PM CDT) Glucose, POC 153 70 - 199 mg/dL Glucose comment 1 Use This Result [facility] Blood 04/28/2024 8:11 PM CDT 04/28/2024 8:11 PM CDT Giancarlo Durant MD LAB POCT ORDERABLES - DEVIC E Final Result Performing Organization Address City/[facility] Co de Phone Number [address] [place] [address] * POCT glucose (04/28/2024 4:48 PM CDT) Glucose, POC 109 70 - 199 mg/dL Glucose comment 1 Use This Result [facility] Blood 04/28/2024 4:48 PM CDT 04/28/2024 4:48 PM CDT Giancarlo Durant MD LAB POCT ORDERABLES - DEVIC E Final Result Performing Organization Address City/[facility]/ZIP Co de Phone Number HUGO[address] [place] [address] * POCT glucose (04/28/2024 11:35 AM CDT) Glucose, POC 162 70 - 199 mg/dL Glucose comment 1 Use This Result NADINE Blood 04/28/2024 11:3 5 AM CDT 04/28/2024 11:35 AM CDT Giancarlo Durant MD LAB POCT ORDERABLES - DEVIC E Final Result Performing Organization Address [facility] Co de Phone Number HUGO[address] [place] [address] * POCT glucose (04/28/2024 7:48 AM CDT) Glucose, POC 118 70 - 199 mg/dL Glucose comment 1 Use This Result [facility]INE Blood 04/28/2024 7:48 AM CDT 04/28/2024 7:48 AM CDT Giancarlo Durant MD LAB POCT ORDERABLES - DEVIC E Final Result Performing Organization Address [facility] Co de Phone Number [address] [place] [address] * POCT glucose (04/27/2024 8:13 PM CDT) Glucose, POC 124 70 - 199 mg/dL Glucose comment 1 Use This Result [facility] Blood 04/27/2024 8:13 PM CDT 04/27/2024 8:13 PM CDT Giancarlo Durant MD LAB POCT ORDERABLES - DEVIC E Final Result Performing Organization Address City/[facility]/ZIP Co de Phone Number CERNER [address] [address] * POCT glucose (04/27/2024 4:22 PM CDT) Glucose, POC 114 70 - 199 mg/dL Glucose comment 1 Use This Result [facility] Blood 04/27/2024 4:22 PM CDT 04/27/2024 4:22 PM CDT us Giancarlo Durant MD LAB POCT ORDERABLES - DEVIC E Final Result Performing Organization Address City/[facility] Co de Phone Number [address] [address] * POCT glucose (04/27/2024 11:48 AM CDT) Glucose, POC 140 70 - 199 mg/dL Glucose comment 1 Use This Result [facility] Blood 04/27/2024 11:4 8 AM CDT 04/27/2024 11:48 AM CDT Giancarlo Durant MD LAB POCT ORDERABLES - DEVIC E Final Result Performing Organization Address City/[facility] Co de Phone Number [address] [address] * POCT glucose (04/27/2024 7:33 AM CDT) Glucose, POC 115 70 - 199 mg/dL Glucose comment 1 Use This Result [facility] Blood 04/27/2024 7:33 AM CDT 04/27/2024 7:33 AM CDT Giancarlo Durant MD LAB POCT ORDERABLES - DEVIC E Final Result [address] [address] * eGFR (04/27/2024 12:42 AM CDT) Pathologist [facility] eGFR >90 >=60 mL/min/1. 73 m2 Comment: [...] AM CDT 04/27/2024 1:12 AM CDT us Sosa Andino MD LAB BLOOD ORDERABLES Final Resul t NADINE [address] [facility] Department [place] [address] * (ABNORMAL) Differential, auto (04/27/2024 12:42 AM CDT) Pathologist [facility] Neutrophil abs 6.3 1.5 - 6.5 K/cumm Imm gran abs 0.1 0.0 - 0.1 K/cumm [facility] Lymphocyte abs 2.1 0.8 - 3.3 K/cumm [facility] Monocyte abs 0.8 0.2 - 0.8 K/cumm [facility] Eosinophil abs 0.6(H) 0.0 - 0.5 K/cumm [facility] Basophil abs 0.1 0.0 - 0.1 K/cumm [facility] Neutrophil pct 62.7 % [facility] Comment: Interpretive Data Percent cell count reference ranges are not reported, since discordance with absolute values may lead to misinterpretation of CBC data. Current Interpretive Data was last revised on 2017. Imm gran pct 1.4 % [facility] Comment: Interpretive Data Percent cell count reference ranges are not reported, since discordance with absolute values may lead to misinterpretation of CBC data. Current Interpretive Data was last revised on 2017. Lymphocyte pct 21.0 % [facility] Comment: Interpretive Data Percent cell count reference ranges are not reported, since discordance with absolute values may lead to misinterpretation of CBC data. Current Interpretive Data was last revised on 2017. Monocyte pct 8.1 % [facility] Comment: Interpretive Data Percent cell count reference ranges are not reported, since discordance with absolute values may lead to misinterpretation of CBC data. Current Interpretive Data was last revised on 2017. Eosinophil pct 5.6 % [facility] Comment: Interpretive Data Percent cell count reference ranges are not reported, since discordance with absolute values may lead to misinterpretation of CBC data. Current Interpretive Data was last revised on 2017. Basophil pct 1.2 % [facility] Comment: Interpretive Data Percent cell count reference ranges are not reported, since discordance with absolute values may lead to misinterpretation of CBC data. Current Interpretive Data was last revised on 2017. Blood 04/27/2024 12:4 2 AM CDT 04/27/2024 1:13 AM CDT us Sosa Andino MD LAB BLOOD ORDERABLES Final Resul t NADINE [address] [facility] Department of Laboratories [place], [place] [id number] * Renal function panel (04/27/2024 12:42 AM CDT) Sodium 142 135 - 145 mmol/L Potassium, pl 3.6 3.3 - 4.9 mmol/L [facility] Chloride 106 97 - 110 mmol/L [facility] CO2 24 22 - 32 mmol/L [facility] Anion gap 12 2 - 15 mmol/L [facility] BUN 15 6 - 25 mg/dL [facility] Creatinine 0.70 0.60 - 1.10 mg/dL [facility] Glucose 112 70 - 199 mg/dL [facility] Comment: Interpretive Data Fasting glucose >/= 126 [...] 2022. Calcium 10.0 8.5 - 10.3 mg/dL [facility] Phosphorus, pl 3.5 2.3 - 4.5 mg/dL [facility] Albumin 4.0 3.5 - 5.0 g/dL [facility] Blood 04/27/2024 12:4 2 AM CDT 04/27/2024 1:12 AM CDT us Sosa Andino MD LAB BLOOD ORDERABLES Final Resul t [facility] [address] [facility] Department [place] [address] * (ABNORMAL) CBC with auto differential (04/27/2024 12:42 AM CDT) WBC 10.0(H) 3.8 - 9.9 K/cumm Hgb 9.4(L) 11.9 - 15.5 g/dL [facility] Hct 29.5(L) 35.6 - 45.5 % [facility] Plt 270 150 - 400 K/cumm [facility] MPV 10.8 9.1 - 12.3 fL [facility] RBC 3.43(L) 3.90 - 5.20 M/cumm [facility] MCV 86.0 81.3 - 96.4 fL [facility] MCH 27.4 27.1 - 33.3 pg [facility] MCHC 31.9(L) 32.3 - 35.7 g/dL [facility] RDW CV 14.8 11.1 - 14.9 % [facility] RDW SD 46.2 35.7 - 48.1 fL [facility] NRBC abs 0.00 0.00 - 0.01 K/cumm [facility] Blood 04/27/2024 12:4 2 AM CDT 04/27/2024 1:13 AM CDT us Sosa Andino MD LAB BLOOD ORDERABLES Final Resul t Performing Organization Address City/[facility] Co de Phone Number HUGO[address] [place] [address] * POCT glucose (04/26/2024 7:58 PM CDT) Glucose, POC 124 70 - 199 mg/dL Glucose comment 1 Use This Result [facility] Blood 04/26/2024 7:58 PM CDT 04/26/2024 7:58 PM CDT us Sosa Andino MD LAB POCT ORDERABLES - DEVICE Fin al Result Performing Organization Address [facility] Co de Phone Number [address] [place] [address] * POCT glucose (04/26/2024 4:21 PM CDT) Glucose, POC 121 70 - 199 mg/dL Glucose comment 1 Use This Result [facility] Blood 04/26/2024 4:21 PM CDT 04/26/2024 4:21 PM CDT us Sosa Andino MD LAB POCT ORDERABLES - DEVICE Fin al Result Performing Organization Address [facility] Co de Phone Number [address] [place] [address] * POCT glucose (04/26/2024 11:11 AM CDT) Glucose, POC 136 70 - 199 mg/dL Glucose comment 1 Use This Result [facility] Blood 04/26/2024 11:1 1 AM CDT 04/26/2024 11:11 AM CDT Sosa Andino MD LAB POCT ORDERABLES - DEVICE Fin al Result Performing Organization Address [facility] Co de Phone Number [address] [place] [address] * POCT glucose (04/26/2024 7:11 AM CDT) Glucose, POC 125 70 - 199 mg/dL Glucose comment 1 Use This Result [facility] Blood 04/26/2024 7:11 AM CDT 04/26/2024 7:11 AM CDT Sosa Andino MD LAB POCT ORDERABLES - DEVICE Fin al Result Performing Organization Address [facility] Co de Phone Number [address] [place] [address] * POCT glucose (04/25/2024 8:23 PM CDT) Glucose, POC 136 70 - 199 mg/dL Blood 04/25/2024 8:23 PM CDT 04/25/2024 8:23 PM CDT Result [facility] Sosa Andino MD LAB POCT ORDERABLES - DEVICE Fin al Result Performing Organization Address [facility] Co de Phone Number [address] [place] [address] * POCT glucose (04/25/2024 4:27 PM CDT) Glucose, POC 128 70 - 199 mg/dL Glucose comment 1 Use This Result [facility] Blood 04/25/2024 4:27 PM CDT 04/25/2024 4:27 PM CDT Sosa Andino MD LAB POCT ORDERABLES - DEVICE Fin al Result Performing Organization Address [facility] de Phone Number NADINE [address] [place] [address] * POCT glucose (04/25/2024 11:14 AM CDT) Glucose, POC 124 70 - 199 mg/dL Glucose comment 1 Use This Result [facility] Blood 04/25/2024 11:1 4 AM CDT 04/25/2024 11:14 AM CDT Sosa Andino MD LAB POCT ORDERABLES - DEVICE Fin al Result Performing Organization Address [facility] de Phone Number NADINE [address] [address] * POCT glucose (04/25/2024 7:33 AM CDT) Glucose, POC 120 70 - 199 mg/dL Glucose comment 1 Use This Result [facility] Blood 04/25/2024 7:33 AM CDT 04/25/2024 7:33 AM CDT Sosa Andino MD LAB POCT ORDERABLES - DEVICE Fin al Result Performing Organization Address [facility] de Phone Number HUGO[address] [place] [address] * eGFR (04/25/2024 6:42 AM CDT) eGFR >90 >=60 mL/min/1. 73 [...] AM CDT 04/25/2024 7:03 AM CDT us Sosa Andino MD LAB BLOOD ORDERABLES Final Resul t [facility] [address] [facility] Department [place] [address] * (ABNORMAL) Differential, auto (04/25/2024 6:42 AM CDT) Pathologist [facility] Neutrophil abs 5.6 1.5 - 6.5 K/cumm Imm gran abs 0.0 0.0 - 0.1 K/cumm [facility] Lymphocyte abs 1.9 0.8 - 3.3 K/cumm [facility] Monocyte abs 0.7 0.2 - 0.8 K/cumm [facility] Eosinophil abs 0.8(H) 0.0 - 0.5 K/cumm [facility] Basophil abs 0.1 0.0 - 0.1 K/cumm [facility] Neutrophil pct 61.4 % [facility] Comment: Interpretive Data Percent cell count reference ranges are not reported, since discordance with absolute values may lead to misinterpretation of CBC data. Current Interpretive Data was last revised on 2017. Imm gran pct 0.2 % [facility] Comment: Interpretive Data Percent cell count reference ranges are not reported, since discordance with absolute values may lead to misinterpretation of CBC data. Current Interpretive Data was last revised on 2017. Lymphocyte pct 21.0 % [facility] Comment: Interpretive Data Percent cell count reference ranges are not reported, since discordance with absolute values may lead to misinterpretation of CBC data. Current Interpretive Data was last revised on 2017. Monocyte pct 7.1 % [facility] Comment: Interpretive Data Percent cell count reference ranges are not reported, since discordance with absolute values may lead to misinterpretation of CBC data. Current Interpretive Data was last revised on 2017. Eosinophil pct 8.9 % [facility] Comment: Interpretive Data Percent cell count reference ranges are not reported, since discordance with absolute values may lead to misinterpretation of CBC data. Current Interpretive Data was last revised on 2017. Basophil pct 1.4 % [facility] Comment: Interpretive Data Percent cell count reference ranges are not reported, since discordance with absolute values may lead to misinterpretation of CBC data. Current Interpretive Data was last revised on 2017. Blood 04/25/2024 6:42 AM CDT 04/25/2024 7:03 AM CDT us Sosa Andino MD LAB BLOOD ORDERABLES Final Resul t [facility] [address] [facility] Department [place] [address] * Renal function panel (04/25/2024 6:42 AM CDT) Sodium 142 135 - 145 mmol/L Potassium, pl 3.6 3.3 - 4.9 mmol/L [facility] Chloride 107 97 - 110 mmol/L [facility] CO2 24 22 - 32 mmol/L [facility] Anion gap 11 2 - 15 mmol/L [facility] BUN 12 6 - 25 mg/dL [facility] Creatinine 0.71 0.60 - 1.10 mg/dL [facility] Glucose 117 70 - 199 mg/dL [facility] Comment: Interpretive Data Fasting glucose >/= 126 [...] 2022. Calcium 9.6 8.5 - 10.3 mg/dL [facility] Phosphorus, pl 3.1 2.3 - 4.5 mg/dL [facility] Albumin 3.7 3.5 - 5.0 g/dL [facility] Blood 04/25/2024 6:42 AM CDT 04/25/2024 7:03 AM CDT Sosa Andino MD LAB BLOOD ORDERABLES Final Resul t [facility] [address] [facility] Department [place] [address] * (ABNORMAL) CBC with auto differential (04/25/2024 6:42 AM CDT) WBC 9.1 3.8 - 9.9 K/cumm Hgb 9.1(L) 11.9 - 15.5 g/dL [facility] Hct 28.7(L) 35.6 - 45.5 % [facility] Plt 259 150 - 400 K/cumm [facility] MPV 10.5 9.1 - 12.3 fL [facility] RBC 3.32(L) 3.90 - 5.20 M/cumm [facility] MCV 86.4 81.3 - 96.4 fL [facility] MCH 27.4 27.1 - 33.3 pg [facility] MCHC 31.7(L) 32.3 - 35.7 g/dL [facility] RDW CV 14.6 11.1 - 14.9 % [facility] RDW SD 46.5 35.7 - 48.1 fL [facility] NRBC abs 0.00 0.00 - 0.01 K/cumm [facility] Blood 04/25/2024 6:42 AM CDT 04/25/2024 7:03 AM CDT Sosa Andino MD LAB BLOOD ORDERABLES Final Resul t Performing Organization Address [facility] de Phone Number [address] [place] [address] * POCT glucose (04/24/2024 8:03 PM CDT) Glucose, POC 168 70 - 199 mg/dL Glucose comment 1 Use This Result [facility] Blood 04/24/2024 8:03 PM CDT 04/24/2024 8:03 PM CDT Result [facility] us Sosa Andino MD LAB POCT ORDERABLES - DEVICE Fin al Result Performing Organization Address [facility] de Phone Number [address] [place] [address] * POCT glucose (04/24/2024 4:35 PM CDT) Glucose, POC 123 70 - 199 mg/dL Glucose comment 1 Use This Result [facility] Blood 04/24/2024 4:35 PM CDT 04/24/2024 4:35 PM CDT Result [facility] Sosa Andino MD LAB POCT ORDERABLES - DEVICE Fin al Result Performing Organization Address [facility] de Phone Number [address] [place] [address] * CT Head WO Contrast (04/24/2024 4:25 [...] D: ??04/24/2024 5:25 PM T: Report ID: [id number] Reading Location: ??[id number] Procedure Note Steven Garcia MD - 04/24/2024 [...] Steven Garcia M.D. NICOLAS T: Report ID: [id number] Reading Location: [id number] us Arpan Rodgers MD IMG CT PROCEDURES Fi nal Result * POCT glucose (04/24/2024 11:47 AM CDT) [facility] Signature Glucose, POC 128 70 - 199 mg/dL Glucose comment 1 Use This Result NADINE Blood 04/24/2024 11:4 7 AM CDT 04/24/2024 11:47 AM CDT Sosa Andino MD LAB POCT ORDERABLES - DEVICE Fin al Result NADINE [address] [facility] Department [place] [address] * US Carotids Duplex Bilateral (04/24/2024 9:07 AM CDT) Anatomical Region Laterality Modality Vascular Bilateral Ultrasound 04/24/2024 Narrative 04/24/2024 12:09 PM CDT Modify Job ID: [id number] Modify Document ID: [id number] Dictated date/time: [id number] CAROTID DUPLEX. REASON FOR EXAM Slurred speech. [...] subclavian arterial stenosis. Job ID/Internal Job ID: ??[id number] us Radha Land SURGICAL TERRITORY MANAGER IMG US PROCEDURES Final Result * POCT glucose (04/24/2024 7:29 AM CDT) Glucose, POC 123 70 - 199 mg/dL Glucose comment 1 Use This Result NADINE CANCHOLA Blood 04/24/2024 7:29 AM CDT 04/24/2024 7:29 AM CDT us Sosa Andino MD LAB POCT ORDERABLES - DEVICE Fin al Result NADINE [address] [facility] Department [place] [address] * eGFR (04/24/2024 7:01 AM CDT) eGFR [...] 7:01 AM CDT 04/24/2024 7:29 AM CDT Sosa Andino MD LAB BLOOD ORDERABLES Final Resul t [facility] [address] [facility] Department [place] [address] * (ABNORMAL) Differential, auto (04/24/2024 7:01 AM CDT) Neutrophil abs 5.2 1.5 - 6.5 K/cumm Imm gran abs 0.0 0.0 - 0.1 K/cumm [facility] Lymphocyte abs 1.8 0.8 - 3.3 K/cumm [facility] Monocyte abs 0.6 0.2 - 0.8 K/cumm [facility] Eosinophil abs 0.8(H) 0.0 - 0.5 K/cumm [facility] Basophil abs 0.1 0.0 - 0.1 K/cumm [facility] Neutrophil pct 61.1 % [facility] Comment: Interpretive Data Percent cell count reference ranges are not reported, since discordance with absolute values may lead to misinterpretation of CBC data. Current Interpretive Data was last revised on 2017. Imm gran pct 0.2 % [facility] Comment: Interpretive Data Percent cell count reference ranges are not reported, since discordance with absolute values may lead to misinterpretation of CBC data. Current Interpretive Data was last revised on 2017. Lymphocyte pct 20.8 % [facility] Comment: Interpretive Data Percent cell count reference ranges are not reported, since discordance with absolute values may lead to misinterpretation of CBC data. Current Interpretive Data was last revised on 2017. Monocyte pct 6.8 % [facility] Comment: Interpretive Data Percent cell count reference ranges are not reported, since discordance with absolute values may lead to misinterpretation of CBC data. Current Interpretive Data was last revised on 2017. Eosinophil pct 9.9 % [facility] Comment: Interpretive Data Percent cell count reference ranges are not reported, since discordance with absolute values may lead to misinterpretation of CBC data. Current Interpretive Data was last revised on 2017. Basophil pct 1.2 % [facility] Comment: Interpretive Data Percent cell count reference ranges are not reported, since discordance with absolute values may lead to misinterpretation of CBC data. Current Interpretive Data was last revised on 2017. Blood 04/24/2024 7:01 AM CDT 04/24/2024 7:29 AM CDT Sosa Andino MD LAB BLOOD ORDERABLES Final Resul t Performing Organization Address City/[facility] Co de Phone Number [address] [place] [address] * Magnesium (04/24/2024 7:01 AM CDT) Pathologist [facility] Magnesium 2.3 1.4 - 2.5 mg/dL Blood 04/24/2024 7:01 AM CDT 04/24/2024 7:29 AM CDT Jammie Dickson NP LAB BLOOD ORDERABLES Fi nal Result Performing Organization Address [facility] de Phone Number [address] [address] * Renal function panel (04/24/2024 7:01 AM CDT) Pathologist [facility] Sodium 143 135 - 145 mmol/L Potassium, pl 4.1 3.3 - 4.9 mmol/L [facility] Chloride 109 97 - 110 mmol/L [facility] CO2 23 22 - 32 mmol/L [facility] Anion gap 11 2 - 15 mmol/L [facility] BUN 17 6 - 25 mg/dL [facility] Creatinine 0.72 0.60 - 1.10 mg/dL [facility] Glucose 106 70 - 199 mg/dL [facility] Comment: Interpretive Data Fasting glucose >/= 126 [...] 2022. Calcium 9.3 8.5 - 10.3 mg/dL [facility] Phosphorus, pl 2.9 2.3 - 4.5 mg/dL [facility] Albumin 3.7 3.5 - 5.0 g/dL [facility] Blood 04/24/2024 7:01 AM CDT 04/24/2024 7:29 AM CDT Sosa Andino MD LAB BLOOD ORDERABLES Final Resul t [facility] [address] [facility] Department [place] [address] * (ABNORMAL) CBC with auto differential (04/24/2024 7:01 AM CDT) Pathologist [facility] WBC 8.4 3.8 - 9.9 K/cumm Hgb 9.0(L) 11.9 - 15.5 g/dL [facility] Hct 28.3(L) 35.6 - 45.5 % [facility] Plt 268 150 - 400 K/cumm [facility] MPV 10.3 9.1 - 12.3 fL [facility] RBC 3.33(L) 3.90 - 5.20 M/cumm [facility] MCV 85.0 81.3 - 96.4 fL [facility] MCH 27.0(L) 27.1 - 33.3 pg [facility] MCHC 31.8(L) 32.3 - 35.7 g/dL [facility] RDW CV 14.7 11.1 - 14.9 % [facility] RDW SD 45.1 35.7 - 48.1 fL [facility] NRBC abs 0.00 0.00 - 0.01 K/cumm [facility] Blood 04/24/2024 7:01 AM CDT 04/24/2024 7:29 AM CDT Sosa Andino MD LAB BLOOD ORDERABLES Final Resul t Performing Organization Address [facility] Co de Phone Number NADINE [address] [place] [address] * ECG 12 lead (04/24/2024 12:14 AM CDT) [facility] Ventricular Rate EKG/Min 80 BPM [facility] Atrial Rate 80 BPM [facility] [place]-Interval (MSEC) 142 ms [facility] QRS-Interval (MSEC) 76 ms [facility] QT-Interval (MSEC) 366 ms [facility] QTc 422 ms [facility] P Welsh 52 degrees [facility] R Welsh 14 degrees [facility] T Welsh 86 degrees [facility] Diagnosis Normal sinus rhythm Nonspecific T wave abnormality No previous ECGs available Confirmed by SULTAN REAL M.D. ([id number]) on 04/24/2024 8:40:31 PM [facility] 04/24/2024 12:1 4 AM CDT 04/24/2024 8:40 PM CDT Jammie Dickson SURGICAL TERRITORY MANAGER ECG ORDERABLES Final R esult Performing Organization Address [facility] de Phone Number [facility] * POCT glucose (04/23/2024 8:31 PM CDT) Glucose, POC 132 70 - 199 mg/dL Blood 04/23/2024 8:31 PM CDT 04/23/2024 8:31 PM CDT Sosa Andino MD LAB POCT ORDERABLES - DEVICE Fin al Result Performing Organization Address [facility] Co de Phone Number NADINE [address] [place] [address] * POCT glucose (04/23/2024 4:55 PM CDT) Glucose, POC 113 70 - 199 mg/dL Glucose comment 1 Use This Result NADINE Blood 04/23/2024 4:55 PM CDT 04/23/2024 4:55 PM CDT Sosa Andino MD LAB POCT ORDERABLES - DEVICE Fin al Result Performing Organization Address [facility] Co de Phone Number NADINE [address] [place] [address] * POCT glucose (04/23/2024 11:54 AM CDT) Glucose, POC 160 70 - 199 mg/dL Glucose comment 1 Use This Result [facility] Blood 04/23/2024 11:5 4 AM CDT 04/23/2024 11:54 AM CDT Sosa Andino MD LAB POCT ORDERABLES - DEVICE Fin al Result Performing Organization Address [facility] de Phone Number [address] [address] * eGFR (04/23/2024 10:24 AM CDT) eGFR [...] Inclusion of Race in Diagnosing Kidney Disease, ABENASN 2020). The CKD-EPI equation should not be used for patients with unstable renal function and has not been validated in children and those over 70. Current interpretive data was last reviewed 2021. Blood 04/23/2024 10:2 4 AM CDT 04/23/2024 10:55 AM CDT Sosa Andino MD LAB BLOOD ORDERABLES Final Resul t [facility] [address] [facility] Department [place] [address] * (ABNORMAL) Differential, auto (04/23/2024 10:24 AM CDT) Pathologist [facility] Neutrophil abs 5.4 1.5 - 6.5 K/cumm Imm gran abs 0.0 0.0 - 0.1 K/cumm [facility] Lymphocyte abs 1.5 0.8 - 3.3 K/cumm [facility] Monocyte abs 0.5 0.2 - 0.8 K/cumm [facility] Eosinophil abs 0.6(H) 0.0 - 0.5 K/cumm [facility] Basophil abs 0.1 0.0 - 0.1 K/cumm [facility] Neutrophil pct 66.7 % [facility] Comment: Interpretive Data Percent cell count reference ranges are not reported, since discordance with absolute values may lead to misinterpretation of CBC data. Current Interpretive Data was last revised on 2017. Imm gran pct 0.1 % [facility] Comment: Interpretive Data Percent cell count reference ranges are not reported, since discordance with absolute values may lead to misinterpretation of CBC data. Current Interpretive Data was last revised on 2017. Lymphocyte pct 18.3 % [facility] Comment: Interpretive Data Percent cell count reference ranges are not reported, since discordance with absolute values may lead to misinterpretation of CBC data. Current Interpretive Data was last revised on 2017. Monocyte pct 6.1 % [facility] Comment: Interpretive Data Percent cell count reference ranges are not reported, since discordance with absolute values may lead to misinterpretation of CBC data. Current Interpretive Data was last revised on 2017. Eosinophil pct 7.7 % [facility] Comment: Interpretive Data Percent cell count reference ranges are not reported, since discordance with absolute values may lead to misinterpretation of CBC data. Current Interpretive Data was last revised on 2017. Basophil pct 1.1 % [facility] Comment: Interpretive Data Percent cell count reference ranges are not reported, since discordance with absolute values may lead to misinterpretation of CBC data. Current Interpretive Data was last revised on 2017. Blood 04/23/2024 10:2 4 AM CDT 04/23/2024 10:55 AM CDT Sosa Andino MD LAB BLOOD ORDERABLES Final Resul t [facility] [address] [facility] Department [place] [address] * Renal function panel (04/23/2024 10:24 AM CDT) Sodium 139 135 - 145 mmol/L Potassium, pl 3.4 3.3 - 4.9 mmol/L [facility] Chloride 104 97 - 110 mmol/L [facility] CO2 23 22 - 32 mmol/L [facility] Anion gap 12 2 - 15 mmol/L [facility] BUN 17 6 - 25 mg/dL [facility] Creatinine 0.78 0.60 - 1.10 mg/dL [facility] Glucose 174 70 - 199 mg/dL [facility] Comment: Interpretive Data Fasting glucose >/= 126 [...] 2022. Calcium 10.0 8.5 - 10.3 mg/dL [facility] Phosphorus, pl 3.6 2.3 - 4.5 mg/dL [facility] Albumin 3.9 3.5 - 5.0 g/dL [facility] Blood 04/23/2024 10:2 4 AM CDT 04/23/2024 10:55 AM CDT Sosa Andino MD LAB BLOOD ORDERABLES Final Resul t Performing Organization Address City/[facility] Co de Phone Number NADINE [address] [place] [address] * (ABNORMAL) CBC with auto differential (04/23/2024 10:24 AM CDT) Pathologist [facility] WBC 8.2 3.8 - 9.9 K/cumm Hgb 9.9(L) 11.9 - 15.5 g/dL [facility] Hct 30.7(L) 35.6 - 45.5 % [facility] Plt 290 150 - 400 K/cumm [facility] MPV 10.4 9.1 - 12.3 fL [facility] RBC 3.59(L) 3.90 - 5.20 M/cumm [facility] MCV 85.5 81.3 - 96.4 fL [facility] MCH 27.6 27.1 - 33.3 pg [facility] MCHC 32.2(L) 32.3 - 35.7 g/dL [facility] RDW CV 14.6 11.1 - 14.9 % [facility] RDW SD 45.0 35.7 - 48.1 fL [facility] NRBC abs 0.00 0.00 - 0.01 K/cumm [facility] Blood 04/23/2024 10:2 4 AM CDT 04/23/2024 10:55 AM CDT Sosa Andino MD LAB BLOOD ORDERABLES Final Resul t Performing Organization Address City/[facility]/ZIP Co de Phone Number NADINE [address] [place] [address] * POCT glucose (04/23/2024 8:02 AM CDT) Glucose, POC 136 70 - 199 mg/dL Blood 04/23/2024 8:02 AM CDT 04/23/2024 8:02 AM CDT Sosa Andino MD LAB POCT ORDERABLES - DEVICE Fin al Result Performing Organization Address City/[facility] Co de Phone Number NADINE [address] [place] [address] * POCT glucose (04/22/2024 7:53 PM CDT) Glucose, POC 134 70 - 199 mg/dL Glucose comment 1 Use This Result NADINE Blood 04/22/2024 7:53 PM CDT 04/22/2024 7:53 PM CDT Sosa Andino MD LAB POCT ORDERABLES - DEVICE Fin al Result Performing Organization Address [facility] de Phone Number [address] [place] [address] * CTA Chest Abdomen Pelvis (04/22/2024 5:25 [...] D: ??04/22/2024 7:42 PM T: Report ID: [id number] Reading Location: [id number] Procedure Note Channing Lopez MD - 04/22/2024 [...] Channing Lopez M.D. RB T: Report ID: [id number] Reading Location: [id number] Sosa Andino MD IMG CT PROCEDURES Final Result * POCT glucose (04/22/2024 4:03 PM CDT) Glucose, POC 167 70 - 199 mg/dL Glucose comment 1 Use This Result NADINE Blood 04/22/2024 4:03 PM CDT 04/22/2024 4:03 PM CDT Sosa Andino MD LAB POCT ORDERABLES - DEVICE Fin al Result Performing Organization Address [facility] Co de Phone Number NADINE [address] [place] [address] * POCT glucose (04/22/2024 12:02 PM CDT) [facility] Signature Glucose, POC 123 70 - 199 mg/dL Glucose comment 1 Use This Result NADINE Blood 04/22/2024 12:0 2 PM CDT 04/22/2024 12:02 PM CDT Sosa Andino MD LAB POCT ORDERABLES - DEVICE Cuauhtemoc al Result Performing Organization Address [facility] de Phone Number [address] [address] * TRANSESOPHAGEAL ECHO (SHIVAM) W DOPPLER/CF WO CONTRAST (04/22/2024 10:00 AM CDT) Anatomical Region Laterality Modality Ultrasound 04/22/2024 10:0 0 AM CDT Narrative 04/22/2024 10:57 AM CDT ? Version 2 ?Transesophageal Echocardiogram + ----- + :Name: LYNN ZELAYA JStudy Date: 04/22/2024 ?Status: MHB ?: : ?Patient Location: [facility] 2 [facility]^[id number]^Height: 64 in ?: : ?Weight: 127 lbBP: [...] or regurgitation. There is mild TR, trace AZ, slight restriction of mitral valve anterior leaflet [...] Olivia 04/22/2024 10:57 AM Procedure Note Nino Olviia MD - 04/22/2024 Version 2 Transesophageal Echocardiogram + ----- + :Name: LYNN ZELAYA JStudy Date: 04/22/2024Status: MHB : : [facility][id number]^Height: 64 in : : : 127 lbBP: 135/84 mmHg: :: 1960 Gender: FemaleBSA: 1.6 m2 : :Reason For Study: Stroke, follow up: :Ordering Physician: JAN,: :SOSA: :Referring Physician:: :UNKNOWN, NOTINFILE: :Performed By: Michelle: :NANY Schreiber: + ----- [...] stenosisor regurgitation. There is mild TR, trace AZ, slight restriction of mitralvalve anterior leaflet with [...] signed by: Nino Olivia 04/22/2024 10:57 AM us Sosa Andino MD CV ECHO PROCEDURES Edited * POCT glucose (04/22/2024 7:17 AM CDT) Glucose, POC 132 70 - 199 mg/dL Glucose comment 1 Use This Result NADINE Blood 04/22/2024 7:17 AM CDT 04/22/2024 7:17 AM CDT us Sosa Andino MD LAB POCT ORDERABLES - DEVICE Fin al Result NADINE [address] [facility] Department [place] [address] * eGFR (04/22/2024 7:16 AM [...] 7:16 AM CDT 04/22/2024 8:12 AM CDT Sosa Andino MD LAB BLOOD ORDERABLES Final Resul t [facility] [address] [facility] Department [place] [address] * (ABNORMAL) Differential, auto (04/22/2024 7:16 AM CDT) Pathologist [facility] Neutrophil abs 2.5 1.5 - 6.5 K/cumm Imm gran abs 0.0 0.0 - 0.1 K/cumm [facility] Lymphocyte abs 1.8 0.8 - 3.3 K/cumm [facility] Monocyte abs 0.6 0.2 - 0.8 K/cumm [facility] Eosinophil abs 0.8(H) 0.0 - 0.5 K/cumm [facility] Basophil abs 0.1 0.0 - 0.1 K/cumm [facility] Neutrophil pct 42.8 % [facility] Comment: Interpretive Data Percent cell count reference ranges are not reported, since discordance with absolute values may lead to misinterpretation of CBC data. Current Interpretive Data was last revised on 2017. Imm gran pct 0.2 % [facility] Comment: Interpretive Data Percent cell count reference ranges are not reported, since discordance with absolute values may lead to misinterpretation of CBC data. Current Interpretive Data was last revised on 2017. Lymphocyte pct 31.5 % [facility] Comment: Interpretive Data Percent cell count reference ranges are not reported, since discordance with absolute values may lead to misinterpretation of CBC data. Current Interpretive Data was last revised on 2017. Monocyte pct 10.2 % [facility] Comment: Interpretive Data Percent cell count reference ranges are not reported, since discordance with absolute values may lead to misinterpretation of CBC data. Current Interpretive Data was last revised on 2017. Eosinophil pct 13.9 % [facility] Comment: Interpretive Data Percent cell count reference ranges are not reported, since discordance with absolute values may lead to misinterpretation of CBC data. Current Interpretive Data was last revised on 2017. Basophil pct 1.4 % [facility] Comment: Interpretive Data Percent cell count reference ranges are not reported, since discordance with absolute values may lead to misinterpretation of CBC data. Current Interpretive Data was last revised on 2017. Blood 04/22/2024 7:16 AM CDT 04/22/2024 8:12 AM CDT Sosa Andino MD LAB BLOOD ORDERABLES Final Resul t [facility] [address] [facility] Department [place] [address] * Renal function panel (04/22/2024 7:16 AM CDT) Sodium 140 135 - 145 mmol/L Potassium, pl 3.8 3.3 - 4.9 mmol/L [facility] Chloride 105 97 - 110 mmol/L [facility] CO2 27 22 - 32 mmol/L [facility] Anion gap 8 2 - 15 mmol/L [facility] BUN 13 6 - 25 mg/dL [facility] Creatinine 0.81 0.60 - 1.10 mg/dL [facility] Glucose 117 70 - 199 mg/dL [facility] Comment: Interpretive Data Fasting glucose >/= 126 [...] 2022. Calcium 9.6 8.5 - 10.3 mg/dL [facility] Phosphorus, pl 4.3 2.3 - 4.5 mg/dL [facility] Albumin 3.7 3.5 - 5.0 g/dL [facility] Blood 04/22/2024 7:16 AM CDT 04/22/2024 8:12 AM CDT Sosa Andino MD LAB BLOOD ORDERABLES Final Resul t Performing Organization Address City/[facility] Co de Phone Number [facility] [address] [facility] Department [place] [address] * (ABNORMAL) CBC with auto differential (04/22/2024 7:16 AM CDT) WBC 5.8 3.8 - 9.9 K/cumm Hgb 8.8(L) 11.9 - 15.5 g/dL [facility] Hct 27.9(L) 35.6 - 45.5 % [facility] Plt 262 150 - 400 K/cumm [facility] MPV 10.6 9.1 - 12.3 fL [facility] RBC 3.21(L) 3.90 - 5.20 M/cumm [facility] MCV 86.9 81.3 - 96.4 fL [facility] MCH 27.4 27.1 - 33.3 pg [facility] MCHC 31.5(L) 32.3 - 35.7 g/dL [facility] RDW CV 14.4 11.1 - 14.9 % [facility] RDW SD 45.1 35.7 - 48.1 fL [facility] NRBC abs 0.00 0.00 - 0.01 K/cumm [facility] Blood 04/22/2024 7:16 AM CDT 04/22/2024 8:12 AM CDT Sosa Andino MD LAB BLOOD ORDERABLES Final Resul t NADINE [address] [address] * POCT glucose (04/21/2024 7:59 PM CDT) Glucose, POC 176 70 - 199 mg/dL Glucose comment 1 Use This Result [facility] Blood 04/21/2024 7:59 PM CDT 04/21/2024 7:59 PM CDT Sosa Andino MD LAB POCT ORDERABLES - DEVICE Fin al Result Performing Organization Address [facility] de Phone Number HU[address] [address] * POCT glucose (04/21/2024 4:57 PM CDT) Glucose, POC 139 70 - 199 mg/dL Glucose comment 1 Use This Result [facility] Blood 04/21/2024 4:57 PM CDT 04/21/2024 4:57 PM CDT Sosa Andino MD LAB POCT ORDERABLES - DEVICE Fin al Result Performing Organization Address [facility] de Phone Number [address] [address] * EEG (04/21/2024 1:48 PM CDT) Anatomical [...] observed. Correlation with clinical findings is needed. [facility]ail[facility] ORDERABLES Final Result * POCT glucose (04/21/2024 12:05 PM CDT) Glucose, POC 152 70 - 199 mg/dL Glucose comment 1 Use This Result [facility] Blood 04/21/2024 12:0 5 PM CDT 04/21/2024 12:05 PM CDT Result [facility] Sosa Andino MD LAB POCT ORDERABLES - DEVICE Fin al Result Performing Organization Address [facility] Co de Phone Number [address] [place] [address] * POCT glucose (04/21/2024 8:05 AM CDT) Glucose, POC 116 70 - 199 mg/dL Glucose comment 1 Use This Result [facility] Blood 04/21/2024 8:05 AM CDT 04/21/2024 8:05 AM CDT Result [facility] Sosa Andino MD LAB POCT ORDERABLES - DEVICE Fin al Result Performing Organization Address [facility] Co de Phone Number [place] [phone] [facility] [place] [address] * POCT glucose (04/20/2024 9:30 PM CDT) Glucose, POC 115 70 - 199 mg/dL Glucose comment 1 Use This Result [facility] Blood 04/20/2024 9:30 PM CDT 04/20/2024 9:30 PM CDT Sosa Andino MD LAB POCT ORDERABLES - DEVICE Fin al Result Performing Organization Address [facility] de Phone Number [address] [place] [address] * POCT glucose (04/20/2024 4:26 PM CDT) Glucose, POC 141 70 - 199 mg/dL Glucose comment 1 Use This Result [facility] Blood 04/20/2024 4:26 PM CDT 04/20/2024 4:26 PM CDT Sosa Andino MD LAB POCT ORDERABLES - DEVICE Fin al Result Performing Organization Address [facility] de Phone Number [address] [address] * CTA Head Neck W WO Contrast [...] same day for detailed evaluation of bilateral, uoiin-kguxeiu-rrof-left, acute infarcts superimposed on constellation of chronic findings. 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 ??Patent left PACKAGE WINDER, noting variable, to include severe, stenosis along [...] same day for detailed evaluation of bilateral, ftbqb-hurymil-ybgl-left, acute infarcts superimposed on constellation of chronic findings. 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 Patentleft PACKAGE WINDER, noting variable, to include severe, stenosis along [...] earlier same day fordetailed evaluation of bilateral, dsean-ttslvft-xniw-left, acute infarctssuperimposed on constellation of chronic findings. 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 THIS IS AN ELECTRONICALLY VERIFIED FINAL REPORT 04/20/2024 3:57 PM - Electronically signed by Steven Garcia M.D. NICOLAS T: Report ID: [id number] Reading Location: [place] [address] us Arpan Rodgers MD IMG CT PROCEDURES Fi nal Result * POCT glucose (04/20/2024 12:12 PM CDT) Glucose, POC 117 70 - 199 mg/dL Glucose comment 1 Use This Result [facility] Blood 04/20/2024 12:1 2 PM CDT 04/20/2024 12:12 PM CDT Sosa Andino MD LAB POCT ORDERABLES - DEVICE Fin al Result [facility] [address] [facility] Department [place] [address] * MRI Brain WO Contrast (04/20/2024 11:32 [...] collection. ??Normal size ventricles. BRAIN VOLUME: ?? Zema-wx-pfvknlqm cerebral volume loss. PITUITARY: ?? Unremarkable. VASCULATURE: [...] D: ??04/20/2024 12:44 PM T: Report ID: [id number] Reading Location: ??[id number] Procedure Note Angel Kyle MD - 04/20/2024 EXAM DESCRIPTION: MRI BRAIN WO CONTRAST REASON FOR STUDY: Hx of recent CVA, pt has increased weakness anddecreased mental status. TECHNIQUE: Multiplanar imaging includes non-contrasted T1, T2, FLAIR, and diffusion with ADC map sequences. Additional sequence(s) sensitive [employer] Images stored on PACS. COMPARISON: Head CT [...] extra-axial fluid collection. Normalsize ventricles. BRAIN VOLUME: Prnl-sq-enheyboo cerebral volume loss. PITUITARY: Unremarkable. VASCULATURE: Skull [...] Angel Kyle M.D. AG T: Report ID: [id number] Reading Location: [place] [address] Jammie Dickson SURGICAL TERRITORY MANAGER IMG MRI PROCEDURES Marcelle l Result * [...] D: ??04/20/2024 9:03 AM T: Report ID: [id number] Reading Location: ??[id number] Procedure Note Johan Wilson MD - 04/20/2024 [...] AM - Electronically signed by Johan Wilson M.D., MM T: Report ID: [id number] Reading Location: [place] [address] us Jammie Dickson SURGICAL TERRITORY MANAGER IMG XR PROCEDURES Final Result * POCT glucose (04/20/2024 8:09 AM CDT) Glucose, POC 133 70 - 199 mg/dL Glucose comment 1 Use This Result [facility] Blood 04/20/2024 8:09 AM CDT 04/20/2024 8:09 AM CDT Sosa Andino MD LAB POCT ORDERABLES - DEVICE Fin al Result [facility] [address] Department [place] [address] * eGFR (04/20/2024 4:24 AM CDT) [facility] eGFR 67 >=60 mL/min/1. 73 m2 Comment: [...] 04/20/2024 4:32 AM CDT us Jammie Dickson SURGICAL TERRITORY MANAGER LAB BLOOD ORDERABLES Fi nal Result [facility] [address] [place] [address] * (ABNORMAL) Differential, auto (04/20/2024 4:24 AM CDT) [facility] Neutrophil abs 4.2 1.5 - 6.5 K/cumm Imm gran abs 0.0 0.0 - 0.1 K/cumm [facility] Lymphocyte abs 1.6 0.8 - 3.3 K/cumm [facility] Monocyte abs 0.7 0.2 - 0.8 K/cumm [facility] Eosinophil abs 0.7(H) 0.0 - 0.5 K/cumm [facility] Basophil abs 0.1 0.0 - 0.1 K/cumm [facility] Neutrophil pct 57.2 % [facility] Comment: Interpretive Data Percent cell count reference ranges are not reported, since discordance with absolute values may lead to misinterpretation of CBC data. Current Interpretive Data was last revised on 2017. Imm gran pct 0.3 % [facility] Comment: Interpretive Data Percent cell count reference ranges are not reported, since discordance with absolute values may lead to misinterpretation of CBC data. Current Interpretive Data was last revised on 2017. Lymphocyte pct 22.1 % [facility] Comment: Interpretive Data Percent cell count reference ranges are not reported, since discordance with absolute values may lead to misinterpretation of CBC data. Current Interpretive Data was last revised on 2017. Monocyte pct 9.5 % [facility] Comment: Interpretive Data Percent cell count reference ranges are not reported, since discordance with absolute values may lead to misinterpretation of CBC data. Current Interpretive Data was last revised on 2017. Eosinophil pct 9.5 % [facility] Comment: Interpretive Data Percent cell count reference ranges are not reported, since discordance with absolute values may lead to misinterpretation of CBC data. Current Interpretive Data was last revised on 2017. Basophil pct 1.4 % [facility] Comment: Interpretive Data Percent cell count reference ranges are not reported, since discordance with absolute values may lead to misinterpretation of CBC data. Current Interpretive Data was last revised on 2017. Blood 04/20/2024 4:24 AM CDT 04/20/2024 4:32 AM CDT us Jammie Dickson SURGICAL TERRITORY MANAGER LAB BLOOD ORDERABLES Fi nal Result [facility] [address] [facility] Department [place] [address] * Magnesium (04/20/2024 4:24 AM CDT) Pathologist [facility] Magnesium 1.9 1.4 - 2.5 mg/dL Blood 04/20/2024 4:24 AM CDT 04/20/2024 4:32 AM CDT Jammie Dickson SURGICAL TERRITORY MANAGER LAB BLOOD ORDERABLES Fi nal Result [facility] [address] [facility] Department [place] [address] * (ABNORMAL) Comprehensive metabolic panel (04/20/2024 4:24 AM CDT) [facility] Sodium 139 135 - 145 mmol/L Potassium, pl 4.0 3.3 - 4.9 mmol/L [facility] Chloride 102 97 - 110 mmol/L [facility] CO2 26 22 - 32 mmol/L [facility] Anion gap 11 2 - 15 mmol/L [facility] BUN 18 6 - 25 mg/dL [facility] Creatinine 0.95 0.60 - 1.10 mg/dL [facility] Glucose 115 70 - 199 mg/dL [facility] Comment: Interpretive Data Fasting glucose >/= 126 [...] 2022. Calcium 9.4 8.5 - 10.3 mg/dL [facility] Bilirubin, total 0.3 0.1 - 1.2 mg/dL [facility] Protein, pl 6.4(L) 6.5 - 8.5 g/dL [facility] Albumin 3.8 3.5 - 5.0 g/dL [facility] Alk phos 69 40 - 130 Units/L [facility] ALT 16 7 - 45 Units/L [facility] AST 27 10 - 45 Units/L [facility] Blood 04/20/2024 4:24 AM CDT 04/20/2024 4:32 AM CDT us Jammie Dickson SURGICAL TERRITORY MANAGER LAB BLOOD ORDERABLES Fi nal Result [facility] [address] [facility] Department [place] [address] * (ABNORMAL) Lipid panel (04/20/2024 4:24 AM [...] revised on 2018. Triglycerides 85 <=149 mg/dL [facility] Comment: Interpretive Data Ages < or = [...] 2. NCEP Expert Panel. Circulation 2004;110:227 3. Caldwell M et al. KIM Cardiol. 2019November 10;5(5):540-548. doi: 10.1001/jamacardio.2020.0013 Current Interpretive Data was [...] last revised on 2018. Chol/HDL ratio 3 [facility] Blood 04/20/2024 4:24 AM CDT 04/20/2024 4:32 AM CDT Jammie Dickson LAB BLOOD ORDERABLES Fi nal Result Performing Organization Address [facility] de Phone Number [address] [place] [address] * Thyroid Function [place] (04/20/2024 4:24 AM CDT) TSH 1.80 0.30 - 4.20 mcIUnit/mL Blood 04/20/2024 4:24 AM CDT 04/20/2024 4:32 AM CDT aJmmie Dickson LAB BLOOD ORDERABLES Fi nal Result Performing Organization Address [facility] de Phone Number [address] [place] [address] * (ABNORMAL) Hemoglobin A1c (04/20/2024 4:24 AM CDT) Hgb A1C 6.2(H) 4.0 - 5.6 % Estimated Average Glucose 131 mg/dL [facility] Comment: The ADA recommends reporting an estimated Average Glucose (eAG) with all Hemoglobin A1c results using the equation derived from a study of 507 normal and diabetic adults. ??Minority populations were underrepresented and children were not included. ?? (Diabetes Care 31:5708-6144, 2008). ??The eAG is not equivalent to a fasting glucose. Blood 04/20/2024 4:24 AM CDT 04/20/2024 4:32 AM CDT us Jammie Dickson NP LAB BLOOD ORDERABLES Fi nal Result Performing Organization Address [facility] de Phone Number [address] [place] [address] * (ABNORMAL) Vitamin D 25 hydroxy (04/20/2024 4:24 AM CDT) [facility] Vitamin D 25-OH 13.0(L) 30.0 - 80.0 ng/mL Blood 04/20/2024 4:24 AM CDT 04/20/2024 4:32 AM CDT Jammie Dickson NP LAB BLOOD ORDERABLES Fi nal Result Performing Organization Address City/[facility] Co de Phone Number [address] [place] [address] * Vitamin B12 (04/20/2024 4:24 AM CDT) [facility] Vitamin B12 672 230 - 1,250 pg/mL Blood 04/20/2024 4:24 AM CDT 04/20/2024 4:32 AM CDT Jammie Dickson SURGICAL TERRITORY MANAGER LAB BLOOD ORDERABLES Fi nal Result Performing Organization Address [facility] Co de Phone Number [address] [place] [address] * Ammonia (04/20/2024 4:24 AM CDT) Ammonia <10 <=50 mcmol/L Comment: Please note on 11/18/2023 the unit of measure changed from mcg/dL to mcmol/L. Current Interpretive Data was last revised on 2023. Blood 04/20/2024 4:24 AM CDT 04/20/2024 4:32 AM CDT us Jammie Dickson SURGICAL TERRITORY MANAGER LAB BLOOD ORDERABLES Fi nal Result Performing Organization Address City/[facility]/ZIP Co de Phone Number NADINE [address] [address] * Lactate (04/20/2024 4:24 AM CDT) Pathologist [facility] Lactate 0.8 0.7 - 2.0 mmol/L Blood 04/20/2024 4:24 AM CDT 04/20/2024 4:32 AM CDT us Jammie Dickson SURGICAL TERRITORY MANAGER LAB BLOOD ORDERABLES Fi nal Result Performing Organization Address [facility] Co de Phone Number HU[address] [place] [address] * Phosphorus (04/20/2024 4:24 AM CDT) Pathologist [facility] Phosphorus, pl 3.4 2.3 - 4.5 mg/dL Blood 04/20/2024 4:24 AM CDT 04/20/2024 4:32 AM CDT us Jammie Dickson SURGICAL TERRITORY MANAGER LAB BLOOD ORDERABLES Fi nal Result Performing Organization Address City/[facility]/ZIP Co de Phone Number [address] [place] [address] * (ABNORMAL) CBC with auto differential (04/20/2024 4:24 AM CDT) WBC 7.4 3.8 - 9.9 K/cumm Hgb 9.2(L) 11.9 - 15.5 g/dL [facility] Hct 29.6(L) 35.6 - 45.5 % [facility] Plt 252 150 - 400 K/cumm [facility] MPV 10.5 9.1 - 12.3 fL [facility] RBC 3.43(L) 3.90 - 5.20 M/cumm [facility] MCV 86.3 81.3 - 96.4 fL [facility] MCH 26.8(L) 27.1 - 33.3 pg [facility] MCHC 31.1(L) 32.3 - 35.7 g/dL [facility] RDW CV 14.3 11.1 - 14.9 % [facility] RDW SD 44.2 35.7 - 48.1 fL [facility] NRBC abs 0.00 0.00 - 0.01 K/cumm [facility] Blood 04/20/2024 4:24 AM CDT 04/20/2024 4:32 AM CDT Jammie Dickson SURGICAL TERRITORY MANAGER LAB BLOOD ORDERABLES Fi nal Result Performing Organization Address City/[facility]/ZIP Co de Phone Number [facility] [address] [facility] Department [place] [address] * Neuro CT Outside Reference (04/19/2024 5:20 PM CDT) Narrative RAD_RADHA_MHB_MHE - 04/20/2024 12:08 PM CDT This order has been auto-finalized and does not contain a result. us Provider Transcribed Order IMG CT PROCEDURES Fin al Result RAD_JOÃOIO_MHB_MHE documented in this encounter Visit Diagnoses Diagnosis Altered mental status, unspecified altered mental status type- Primary Cerebrovascular accident (CVA), unspecified mechanism (HCC) HTN (hypertension) Unspecified essential hypertension Hyperlipidemia Other and unspecified hyperlipidemia Type 2 diabetes mellitus (HCC) UTI (urinary tract infection) Urinary tract infection, site not specified CVA (cerebral vascular accident) (HCC) Unspecified cerebral artery occlusion with cerebral infarction Coronary atheroma Coronary atherosclerosis of unspecified type of vessel, [place] or graft 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 documented in this encounter Admitting Diagnoses Diagnosis Altered mental status, unspecified altered mental status type documented in this encounter Administered Medications Inactive Administered Medications - up to 3 most recent administrations Medication Order MAR Action Action Date Dose Rate Site acetaminophen (TYLENOL) 32 mg/mL oral liquid 650 mg 650 mg, feeding tube, Every 6 hours PRN, 1st line for pain, fever, headaches, Starting on Thu04/20/24 at 0459, Administer if patient receiving meds per tube., Indications: Fever, PainIndications:Fever,Pain acetaminophen (TYLENOL) suppository 650 mg 650 mg, rectal, Every 6 hours PRN, 1st line for pain, fever, headaches, Starting on Thu04/20/24 at 0459, Administer if patient cannot tolerate enteral route., Indications: Fever, PainIndications:Fever,Pain acetaminophen (TYLENOL) tablet 650 mg 650 mg, oral, Every 6 hours PRN, 1st line for pain, fever, headaches, Starting on Thu04/20/24 at 0459, Administer if patient can swallow tablets., Indications: Fever, PainIndications:Fever,Pain Given 05/02/2024 11:25 PM CDT 650 mg Given 04/28/2024 7:54 PM CDT 650 mg Given 04/27/2024 8:20 PM CDT 650 mg ampicillin (OMNIPEN) 1,000 mg in sodium chloride 0.9% 100 mL IVPB 1,000 mg, intravenous, at 200 mL/hr, Administer over 30 Minutes, Every 6 hours scheduled, First dose (after last modification) on 04/23/24 at 1200, Mini-Bag Plus bag, Indications: Urinary Tract/Genitourinary InfectionIndications:Urinary Tract/Genitourinary Infection New Bag 04/26/2024 5:34 AM CDT 1,000 mg 2 00 mL/hr New Bag 04/26/2024 12:14 AM CDT 1,000 mg 200 mL/hr New Bag 04/25/2024 5:32 PM CDT 1,000 mg 200 mL/hr ampicillin (OMNIPEN) 500 mg in sodium chloride 0.9% 100 mL IVPB 500 mg, intravenous, at 200 mL/hr, Administer over 30 Minutes, Every 6 hours scheduled, First dose on Thu04/22/24 at 1800, Indications: Urinary Tract/Genitourinary InfectionIndications:Urinary Tract/Genitourinary Infection New Bag 04/23/2024 5:29 AM CDT 500 mg 2 00 mL/hr New Bag 04/22/2024 11:55 PM CDT 500 mg 200 mL/hr New Bag 04/22/2024 5:54 PM CDT 500 mg 200 mL/hr ampicillin (PRINCIPEN) capsule 500 mg 500 mg, oral, 4 times daily, First dose on Thu04/26/24 at 1215, Administer on an empty stomach, Indications: Urinary Tract/Genitourinary InfectionIndications:Urinary Tract/Genitourinary Infection Given 04/26/2024 12:42 PM CDT 500 mg ampicillin (PRINCIPEN) capsule 500 mg 500 mg, oral, 4 times daily, First dose (after last modification) on Thu04/26/24 at 2100, For 3 doses, Administer on an empty stomach, Indications: Urinary Tract/Genitourinary InfectionIndications:Urinary Tract/Genitourinary Infection Given 04/27/2024 12:41 PM CDT 500 mg Given 04/27/2024 8:35 AM CDT 500 mg Given 04/26/2024 8:32 PM CDT 500 mg aspirin enteric coated tablet 81 mg 81 mg, oral, Daily, First dose on Thu04/20/24 at 0900, Do not crush, chew, cut, dissolve, open or otherwise manipulate tablet/capsule. Given 04/24/2024 8:38 AM CDT 81 mg Given 04/23/2024 8:54 AM CDT 81 mg Given 04/22/2024 2:21 PM CDT 81 mg benzocaine-menthoL (CHLORASEPTIC) lozenge 1 lozenge 1 lozenge, mouth/throat, Every 4 hours PRN, sore throat, Starting on 04/25/24 at 1629 Given 04/25/2024 8:18 PM CDT 1 lozenge Given 04/25/2024 5:26 PM CDT 1 lozenge cefTRIAXone (ROCEPHIN) 1,000 mg/10 mL in sterile water (premix) 1,000 mg 1,000 mg, intravenous, at 120 mL/hr, Administer over 5 Minutes, Every 24 hours scheduled, First dose on Thu04/20/24 at 0900, Indications: Urinary Tract/Genitourinary InfectionIndications:Urinary Tract/Genitourinary Infection Given 04/22/2024 11:56 AM CDT 1,000 mg 120 mL/hr Given 04/21/2024 9:37 AM CDT 1,000 mg 120 mL/hr Given 04/20/2024 9:13 AM CDT 1,000 mg 120 mL/hr clopidogreL (PLAVIX) tablet 75 mg 75 mg, oral, Daily, First dose on Thu04/20/24 at 1445 Given 05/03/2024 8:29 AM CDT 75 mg Given 05/02/2024 8:53 AM CDT 75 mg Given 05/01/2024 8:22 AM CDT 75 mg dextrose (D10W) 10% bolus 250 mL 250 mL, intravenous, at 1,000 mL/hr, Administer over 15 Minutes, Every 15 min PRN, blood glucose less than 70 mg/dL and UNABLE to swallow/take PO glucose/juice., Starting on Thu04/20/24 at 0711, After treatment for hypoglycemia, recheck BG followed by treatment every 15 minutes until the BG is greater than 100 mg/dL. Then check BG 1 hour post treatment. If BG is less than 100 mg/dL, repeat Q15 minute BG checks and treatment. Call MD for each episode of hypoglycemia., Indications: hypoglycemic disorderIndications:hypoglycemic disorder dextrose (GLUTOSE) 40 % gel 15 g 15 g, oral, Every 15 min PRN, low blood sugar, blood glucose less than 70 mg/dL, Starting on Thu04/20/24 at 0711, If patient is alert and able to eat/drink, give 15 gm glucose or one juice (4 fluid ounces) NOT ORANGE JUICE. After treatment for hypoglycemia, recheck BG followed by treatment every 15 minutes until the BG is greater than 100 mg/dL. Then check BG 1 hour post-treatment. If BG is less than 100 mg/dL, repeat Q15 minute BG checks and treatment. Call MD for each episode of hypoglycemia. MACHINE STUFFER STATES GLUTOSE-15 CONTAINS GLUCOSE 40% W/W (50% W/V), Indications: hypoglycemic disorderIndications:hypoglycemic disorder divalproex (DEPAKOTE SPRINKLE) sprinkle capsule 500 mg 500 mg, oral, 2 times daily, First dose on Thu04/21/24 at 1430, May be swallowed whole or the capsule contents may be sprinkled onto soft food such as applesauce or pudding. Given 05/03/2024 8:29 AM CDT 500 mg Given 05/02/2024 8:41 PM CDT 500 mg Given 05/02/2024 8:52 AM CDT 500 mg docusate sodium (COLACE) capsule 100 mg 100 mg, oral, Daily PRN, constipation, Starting on Thu05/02/24 at 1127, Indications: constipationIndications:constipation ergocalciferol (VITAMIN D) capsule 50,000 Units 50,000 Units, oral, Weekly, First dose on Thu04/20/24 at 0915, For 8 doses, Do not crush, break, or open. Given 04/27/2024 9:07 AM CDT 50,000 Units fluconazole (DIFLUCAN) tablet 150 mg 150 mg, oral, Once, On Thu04/26/24 at 1815, For 1 dose, Room temperature only, Indications: Urinary Tract/Genitourinary InfectionIndications:Urinary Tract/Genitourinary Infection Given 04/26/2024 7:11 PM CDT 150 mg FLUoxetine (PROzac) capsule 20 mg 20 mg, oral, Daily, First dose on Thu04/21/24 at 1230, Do not crush, chew, cut, dissolve, open or otherwise manipulate tablet/capsule. Given 05/03/2024 8:29 AM CDT 20 mg Given 05/02/2024 8:52 AM CDT 20 mg Given 05/01/2024 8:22 AM CDT 20 mg hydrOXYzine (ATARAX) tablet 25 mg 25 mg, oral, Once, On Thu04/20/24 at 2345, For 1 dose Given 04/20/2024 11:23 PM CDT 25 mg hydrOXYzine (ATARAX) tablet 25 mg 25 mg, oral, Every 6 hours PRN, anxiety, Starting on Thu04/21/24 at 0748 Given 05/02/2024 11:26 PM CDT 25 mg Given 05/02/2024 5:40 PM CDT 25 mg Given 05/01/2024 8:56 PM CDT 25 mg insulin lispro (HumaLOG, ADMELOG) 100 unit/mL injection 0-5 Units 0-5 Units, subcutaneous, 3 times daily with meals, First dose on Thu04/20/24 at 0800, Blood glucose mg/dL: 149 or less: No insulin 150-199: add 1 unit 200-249: add 2 units 250-299: add 3 units 300-349: add 4 units and notify physician for adjustment of insulin orders. 350-399: add 5 units and notify physician for adjustment of insulin orders. Over 400: Notify physician for adjustment of insulin orders. Do NOT hold for NPO Status, Indications: Diabetes MellitusIndications:Diabetes Mellitus Given 05/03/2024 12:08 PM CDT 1 Units Righ t Upper Arm Given 04/30/2024 5:34 PM CDT 1 Units Le ft Upper Arm Given 04/28/2024 1:05 PM CDT 1 Units Le ft Upper Arm ioversoL (OPTIRAY 350) syringe 100 mL 100 mL, intravenous, Once in imaging, contrast, Starting on Thu04/20/24 at 1432, For 1 dose Contrast Given 04/20/2024 2:32 PM CDT 100 mL ioversoL (OPTIRAY 350) syringe 100 mL 100 mL, intravenous, Once in imaging, contrast, Starting on Thu04/22/24 at 1708, For 1 dose Contrast Given 04/22/2024 5:26 PM CDT 100 mL Right Antecubital leflunomide (ARAVA) tablet 20 mg 20 mg, oral, Daily, First dose on Thu04/20/24 at 1500, Indications: Rheumatoid ArthritisIndications:Rheu matoid Arthritis Given 05/03/2024 8:29 AM CDT 20 mg Given 05/02/2024 8:52 AM CDT 20 mg Given 05/01/2024 8:23 AM CDT 20 mg magnesium sulfate 2 g/50 mL in water (premix) 2 g 2 g, intravenous, Administer over 60 Minutes, Once, On 04/23/24 at 2330, For 1 dose New Bag 04/23/2024 11:28 PM CDT 2 g peg [id number] (ARTIFICAL TEARS) 1-0.2-0.2 % ophthalmic solution 1 drop 1 drop, each eye, 3 times daily PRN, dry eyes, Starting on 04/23/24 at 1114 Given 04/25/2024 9:22 AM CDT 1 malorie p Given 04/24/2024 1:37 PM CDT 1 drop potassium chloride ER (KLOR-CON) extended release tablet 40 mEq 40 mEq, oral, Once, On 04/23/24 at 2330, For 1 dose, Do not crush, chew, cut, dissolve, open or otherwise manipulate tablet/capsule. Given 04/23/2024 11:31 PM CDT 40 mEq ramelteon (ROZEREM) tablet 8 mg 8 mg, oral, Once, On 04/23/24 at 0000, For 1 dose, Indications: Sleep-Onset InsomniaIndications:Sleep-Onset Insomnia Given 04/22/2024 11:55 PM CDT 8 mg rivaroxaban (XARELTO) tablet 15 mg 15 mg, oral, 2 times daily with meals (bkfst, dinner), First dose on 04/24/24 at 2100, For 21 days, If patient is eating, administer doses of 15 mg or greater with food. If patient is not eating, still administer dose unless instructed differently by provider., Indications: deep venous thrombosisIndications:deep venous thrombosis Given 05/03/2024 8:29 AM CDT 15 mg Given 05/02/2024 5:40 PM CDT 15 mg Given 05/02/2024 8:52 AM CDT 15 mg rivaroxaban (XARELTO) tablet 20 mg 20 mg, oral, Daily with dinner, First dose on 05/15/24 at 1800, If patient is eating, administer doses of 15 mg or greater with food. If patient is not eating, still administer dose unless instructed differently by provider., Indications: deep venous thrombosisIndications:deep venous thrombosis rosuvastatin (CRESTOR) tablet 20 mg 20 mg, oral, Daily, First dose on Thu04/20/24 at 0900 Given 05/03/2024 8:29 AM CDT 20 mg Given 05/02/2024 8:53 AM CDT 20 mg Given 05/01/2024 8:23 AM CDT 20 mg sodium chloride 0.9% flush 0.5-20 mL 0.5-20 mL, intra-catheter, Every 8 hours scheduled, First dose on Thu04/20/24 at 0600, Flush volume based on line type and size. Given 05/03/2024 12:09 PM CDT 1 0 mL Given 05/02/2024 12:49 PM CDT 10 mL Given 05/01/2024 2:30 PM CDT 10 mL sodium chloride 0.9% flush 0.5-20 mL 0.5-20 mL, intra-catheter, As needed, line care, Starting on Thu04/20/24 at 0454, Flush volume based on line type and size. Flush before and after each use. sodium chloride 0.9% infusion 75 mL/hr, intravenous, Continuous, Starting on Thu04/20/24 at 0415, For 12 hours New Bag 04/20/2024 4:04 AM CDT 75 mL/hr 75 mL/hr tamsulosin (FLOMAX) extended release capsule 0.4 mg 0.4 mg, oral, Daily with evening meal, First dose on Thu04/27/24 at 1800, Do not crush, chew, cut, dissolve, open or otherwise manipulate tablet/capsule. Given 05/02/2024 5:40 PM CDT 0.4 mg Given 05/01/2024 5:34 PM CDT 0.4 mg Given 04/30/2024 5:35 PM CDT 0.4 mg traMADoL (ULTRAM) tablet 50 mg 50 mg, oral, Every 12 hours PRN, 1st line for pain, Starting on Thu04/20/24 at 1353 Given 04/22/2024 2:59 AM CDT 50 mg Given 04/21/2024 1:00 PM CDT 50 mg Given 04/20/2024 10:56 PM CDT 50 mg verapamil SR (CALAN SR) extended release tablet 180 mg 180 mg, oral, Daily, First dose on Thu04/27/24 at 0900, Tablets that are scored may be split, but do not crush, chew, dissolve, open or otherwise manipulate tablet/capsule. Given 05/03/2024 8:29 AM CDT 180 mg Given 05/02/2024 8:52 AM CDT 180 mg Given 05/01/2024 8:22 AM CDT 180 mg documented in this encounter Discontinued Medications Medication Sig Discontinue Reason Start Date End Da te aspirin 81 mg enteric coated tablet Take 1 tablet (81 mg total) by mouth daily Stop Taking at Discharge 05/03/2024 gabapentin (NEURONTIN) 300 mg capsule Take 1 capsule (300 mg total) by mouth 3 (three) times a day as needed (headache) Stop Taking at Discharge 05/03/2024 documented as of this encounter Historical Medications * This list may reflect changes made after this encounter. ondansetron (ZOFRAN) 4 mg tablet Take 1 tablet (4 mg total) by mouth every 8 (eight) hours as needed for nausea or vomiting hydrOXYzine (ATARAX) 25 mg tablet Take 1 tablet (25 mg total) by mouth every 6 (six) hours as needed for anxiety FLUoxetine (PROzac) 20 mg tablet Take 1 tablet (20 mg total) by mouth daily tamsulosin (FLOMAX) 0.4 mg extended release capsule Take 1 capsule (0.4 mg total) by mouth daily verapamil SR (CALAN SR) 180 mg CR tablet Take 1 tablet (180 mg total) by mouth daily clopidogreL (PLAVIX) 75 mg tablet Take 1 tablet (75 mg total) by mouth daily leflunomide (ARAVA) 20 mg tabletIndication s:Rheumatoid Arthritis Take 1 tablet (20 mg total) by mouth daily rosuvastatin (CRESTOR) 20 mg tablet Take 1 tablet (20 mg total) by mouth nightly gabapentin (NEURONTIN) 300 mg capsule Take 1 capsule (300 mg total) by mouth 3 (three) times a day as needed (headache) 05/03/2024 aspirin 81 mg enteric coated tablet Take 1 tablet (81 mg total) by mouth daily 05/03/2024 added in this encounter Active and Recently Administered Medications Times are shown in CDT. Scheduled Medication Order 05/01/2024 05/02/2024 05/03/2024 clopidogreL (PLAVIX) tablet 75 mg 75 mg, oral, Daily, First dose on Thu04/20/24 at 1445 0822 (Given - Provider: Keyonna Roberts RN) 0853 (Given - Provider: Pete Tesfaye) 0829 (Given - Provider: Pete Tesfaye) divalproex (DEPAKOTE SPRINKLE) sprinkle capsule 500 mg 500 mg, oral, 2 times daily, First dose on Thu04/21/24 at 1430, May be swallowed whole or the capsule contents may be sprinkled onto soft food such as applesauce or pudding. 821 (Given - Provider: Keyonna Roberts RN)2056 (Given - Provider: Emerita Urbina RN) 0852 (Given - Provider: Pete Tesfaye)2040 (Given - Provider: Jossy Gonzalez) 08 (Given - Provider: Pete Tesfaye) ergocalciferol (VITAMIN D) capsule 50,000 Units 50,000 Units, oral, Weekly, First dose on Thu04/20/24 at 0915, For 8 doses, Do not crush, break, or open. FLUoxetine (PROzac) capsule 20 mg 20 mg, oral, Daily, First dose on Thu04/21/24 at 1230, Do not crush, chew, cut, dissolve, open or otherwise manipulate tablet/capsule. 821 (Given - Provider: Keyonna Roberts RN) 08 (Given - Provider: Pete Tesfaye) 08 (Given - Provider: Pete Tesfaye) insulin lispro (HumaLOG, ADMELOG) 100 unit/mL injection 0-4 Units 0-4 Units, subcutaneous, Nightly, First dose on Thu04/20/24 at 2100, Blood glucose mg/dL: 199 or less: No insulin 200-249: add 1 unit 250-299: add 2 units 300-349: add 3 units and notify physician for adjustment of insulin orders. 350-399: add 4 units and notify physician for adjustment of insulin orders. Over 400: Notify physician for adjustment of insulin orders. Do NOT hold for NPO Status, Indications: Diabetes Mellitus 2056 (Not Given - Provider: Emerita Urbina RN - Reason: Order parameters not met) 2041 (Not Given - Provider: Jossy Gonzalez - Reason: Order parameters not met) insulin lispro (HumaLOG, ADMELOG) 100 unit/mL injection 0-5 Units 0-5 Units, subcutaneous, 3 times daily with meals, First dose on Thu04/20/24 at 0800, Blood glucose mg/dL: 149 or less: No insulin 150-199: add 1 unit 200-249: add 2 units 250-299: add 3 units 300-349: add 4 units and notify physician for adjustment of insulin orders. 350-399: add 5 units and notify physician for adjustment of insulin orders. Over 400: Notify physician for adjustment of insulin orders. Do NOT hold for NPO Status, Indications: Diabetes Mellitus 0823 (Not Given - Provider: Keyonna Roberts RN - Reason: Order parameters not met)1244 (Not Given - Provider: Keyonna Roberts RN - Reason: Order parameters not met)1734 (Not Given - Provider: Keyonna Roberts RN - Reason: Order parameters not met) 0827 (Not Given - Provider: Pete Tesfaye - Reason: Order parameters not met)1155 (Not Given - Provider: Pete Tesfaye - Reason: Order parameters not met)1710 (Not Given - Provider: Pete Tesfaye - Reason: Order parameters not met) 0809 (Not Given - Provider: Pete Tesfaye - Reason: Order parameters not met)1208 (Given - Provider: Pete Tesfaye) leflunomide (ARAVA) tablet 20 mg 20 mg, oral, Daily, First dose on Thu04/20/24 at 1500, Indications: Rheumatoid Arthritis 0823 (Given - Provider: Keyonna Roberts RN) 0852 (Given - Provider: Pete Tesfaye) 0829 (Given - Provider: Pete Tesfaye) rivaroxaban (XARELTO) tablet 15 mg(Linked Group 1) 15 mg, oral, 2 times daily with meals (bkfst, dinner), First dose on Thu04/24/24 at 2100, For 21 days, If patient is eating, administer doses of 15 mg or greater with food. If patient is not eating, still administer dose unless instructed differently by provider., Indications: deep venous thrombosis 0822 (Given - Provider: Keyonna Roberts RN)1732 (Given - Provider: Keyonna Roberts RN) 0852 (Given - Provider: Pete Tesfaye)1740 (Given - Provider: Pete Tesfaye) 0829 (Given - Provider: Pete Tesfaye) rivaroxaban (XARELTO) tablet 20 mg(Linked Group 1) 20 mg, oral, Daily with dinner, First dose on Thu05/15/24 at 1800, If patient is eating, administer doses of 15 mg or greater with food. If patient is not eating, still administer dose unless instructed differently by provider., Indications: deep venous thrombosis rosuvastatin (CRESTOR) tablet 20 mg 20 mg, oral, Daily, First dose on Thu04/20/24 at 0900 0823 (Given - Provider: Keyonna Roberts RN) 0853 (Given - Provider: Pete Tesfaye) 0829 (Given - Provider: Pete Tesfaye) sodium chloride 0.9% flush 0.5-20 mL 0.5-20 mL, intra-catheter, Every 8 hours scheduled, First dose on Thu04/20/24 at 0600, Flush volume based on line type and size. 0827 (Not Given - Provider: Keyonna Roberts RN - Reason: Other - Comment: unknown)1430 (Given - Provider: Keyonna Roberts RN)2057 (Not Given - Provider: Emerita Urbina RN - Reason: Loss of IV access) 0644 (Not Given - Provider: Emerita Urbina RN - Reason: Loss of IV access)1249 (Given - Provider: Pete Tesfaye)2043 (Not Given - Provider: Jossy Gonzalez - Reason: Loss of IV access) 0535 (Not Given - Provider: Jossy Gonzalez - Reason: Loss of IV access)1209 (Given - Provider: Pete Tesfaye) tamsulosin (FLOMAX) extended release capsule 0.4 mg 0.4 mg, oral, Daily with evening meal, First dose on Thu04/27/24 at 1800, Do not crush, chew, cut, dissolve, open or otherwise manipulate tablet/capsule. 1734 (Given - Provider: Keyonna Roberts RN) 1740 (Given - Provider: Pete Tesfaye) verapamil SR (CALAN SR) extended release tablet 180 mg 180 mg, oral, Daily, First dose on Thu04/27/24 at 0900, Tablets that are scored may be split, but do not crush, chew, dissolve, open or otherwise manipulate tablet/capsule. 0822 (Given - Provider: Keyonna Roberts RN) 0852 (Given - Provider: Pete Tesfaye) 0829 (Given - Provider: Pete Tesfaye) PRN Medication Order 05/01/2024 05/02/2024 05/03/2024 acetaminophen (TYLENOL) 32 mg/mL oral liquid 650 mg(Linked Group 2) 650 mg, feeding tube, Every 6 hours PRN, 1st line for pain, fever, headaches, Starting on Thu04/20/24 at 0459, Administer if patient receiving meds per tube., Indications: Fever, Pain 2325 (See Alternative - Provider: Jossy Gonzalez) acetaminophen (TYLENOL) suppository 650 mg(Linked Group 2) 650 mg, rectal, Every 6 hours PRN, 1st line for pain, fever, headaches, Starting on Thu04/20/24 at 0459, Administer if patient cannot tolerate enteral route., Indications: Fever, Pain 2325 (See Alternative - Provider: Jossy Gonzalez) acetaminophen (TYLENOL) tablet 650 mg(Linked Group 2) 650 mg, oral, Every 6 hours PRN, 1st line for pain, fever, headaches, Starting on Thu04/20/24 at 0459, Administer if patient can swallow tablets., Indications: Fever, Pain 2325 (Given - Provider: Jossy Gonzalez - Comment: left leg) benzocaine-menthoL (CHLORASEPTIC) lozenge 1 lozenge 1 lozenge, mouth/throat, Every 4 hours PRN, sore throat, Starting on Thu04/25/24 at 1629 dextrose (D10W) 10% bolus 250 mL(Linked Group 3) 250 mL, intravenous, at 1,000 mL/hr, Administer over 15 Minutes, Every 15 min PRN, blood glucose less than 70 mg/dL and UNABLE to swallow/take PO glucose/juice., Starting on Thu04/20/24 at 0711, After treatment for hypoglycemia, recheck BG followed by treatment every 15 minutes until the BG is greater than 100 mg/dL. Then check BG 1 hour post treatment. If BG is less than 100 mg/dL, repeat Q15 minute BG checks and treatment. Call MD for each episode of hypoglycemia., Indications: hypoglycemic disorder dextrose (GLUTOSE) 40 % gel 15 g(Linked Group 3) 15 g, oral, Every 15 min PRN, low blood sugar, blood glucose less than 70 mg/dL, Starting on Thu04/20/24 at 0711, If patient is alert and able to eat/drink, give 15 gm glucose or one juice (4 fluid ounces) NOT ORANGE JUICE. After treatment for hypoglycemia, recheck BG followed by treatment every 15 minutes until the BG is greater than 100 mg/dL. Then check BG 1 hour post-treatment. If BG is less than 100 mg/dL, repeat Q15 minute BG checks and treatment. Call MD for each episode of hypoglycemia. MACHINE STUFFER STATES GLUTOSE-15 CONTAINS GLUCOSE 40% W/W (50% W/V), Indications: hypoglycemic disorder docusate sodium (COLACE) capsule 100 mg 100 mg, oral, Daily PRN, constipation, Starting on Thu05/02/24 at 1127, Indications: constipation 1156 (Not Given - Provider: Pete Tesfaye - Reason: Patient/family refused) glucagon injection 1 mg 1 mg, intramuscular, Every 30 min PRN, low blood sugar, blood glucose less than 70 mg/dL AND no IV access AND unable to take PO glucose/juice., Starting on Thu04/20/24 at 0711, After Glucagon is administered, position patient on side if possible to avoid aspiration. Obtain IV access. Follow glucagon treatment with glucose treatment or IV dextrose. After treatment for hypoglycemia, recheck BG followed by treatment every 15 minutes until the BG is greater than 100 mg/dL. Then check BG 1 hour post treatment. If BG is less than 100 mg/dL, repeat Q15 minute BG checks and treatment. Call MD for each episode of hypoglycemia. Reconstitute 1 mg vial with 1 mL SWFI. Use immediately following reconstitution. hydrOXYzine (ATARAX) tablet 25 mg 25 mg, oral, Every 6 hours PRN, anxiety, Starting on Thu04/21/24 at 0748 2056 (Given - Provider: Emerita Urbina RN) 1740 (Given - Provider: Pete Tesfaye)2326 (Given - Provider: Jossy Gonzalez) peg [id number] (ARTIFICAL TEARS) 1-0.2-0.2 % ophthalmic solution 1 drop 1 drop, each eye, 3 times daily PRN, dry eyes, Starting on 04/23/24 at 1114 sodium chloride 0.9% flush 0.5-20 mL 0.5-20 mL, intra-catheter, As needed, line care, Starting on 04/20/24 at 0454, Flush volume based on line type and size. Flush before and after each use. Linked Groups Order Group 1: rivaroxaban (XARELTO) tablet 15 mgJump to med 15 mg, oral, 2 times daily with meals (bkfst, dinner), First dose on 04/24/24 at 2100, For 21 days, If patient is eating, administer doses of 15 mg or greater with food. If patient is not eating, still administer dose unless instructed differently by provider., Indications: deep venous thrombosis Followed by rivaroxaban (XARELTO) tablet 20 mgJump to med 20 mg, oral, Daily with dinner, First dose on 05/15/24 at 1800, If patient is eating, administer doses of 15 mg or greater with food. If patient is not eating, still administer dose unless instructed differently by provider., Indications: deep venous thrombosis Group 2: acetaminophen (TYLENOL) tablet 650 mgJump to med 650 mg, oral, Every 6 hours PRN, 1st line for pain, fever, headaches, Starting on Thu04/20/24 at 0459, Administer if patient can swallow tablets., Indications: Fever, Pain Or acetaminophen (TYLENOL) 32 mg/mL oral liquid 650 mgJump to med 650 mg, feeding tube, Every 6 hours PRN, 1st line for pain, fever, headaches, Starting on Thu04/20/24 at 0459, Administer if patient receiving meds per tube., Indications: Fever, Pain Or acetaminophen (TYLENOL) suppository 650 mgJump to med 650 mg, rectal, Every 6 hours PRN, 1st line for pain, fever, headaches, Starting on 04/20/24 at 0459, Administer if patient cannot tolerate enteral route., Indications: Fever, Pain Group 3: dextrose (GLUTOSE) 40 % gel 15 gJump to med 15 g, oral, Every 15 min PRN, low blood sugar, blood glucose less than 70 mg/dL, Starting on 04/20/24 at 0711, If patient is alert and able to eat/drink, give 15 gm glucose or one juice (4 fluid ounces) NOT ORANGE JUICE. After treatment for hypoglycemia, recheck BG followed by treatment every 15 minutes until the BG is greater than 100 mg/dL. Then check BG 1 hour post-treatment. If BG is less than 100 mg/dL, repeat Q15 minute BG checks and treatment. Call MD for each episode of hypoglycemia. MACHINE STUFFER STATES GLUTOSE-15 CONTAINS GLUCOSE 40% W/W (50% W/V), Indications: hypoglycemic disorder Or dextrose (D10W) 10% bolus 250 mLJump to med 250 mL, intravenous, at 1,000 mL/hr, Administer over 15 Minutes, Every 15 min PRN, blood glucose less than 70 mg/dL and UNABLE to swallow/take PO glucose/juice., Starting on Thu04/20/24 at 0711, After treatment for hypoglycemia, recheck BG followed by treatment every 15 minutes until the BG is greater than 100 mg/dL. Then check BG 1 hour post treatment. If BG is less than 100 mg/dL, repeat Q15 minute BG checks and treatment. Call MD for each episode of hypoglycemia., Indications: hypoglycemic disorder documented in this encounter Orders Medications Ordered That Jax ht Not Have Been Administered Count Last Ordered Date First Ordered Date docusate sodium (COLACE) capsule 100 mg 1 1 rivaroxaban (XARELTO) tablet 20 mg 1 2023 acetaminophen (TYLENOL) 32 m g/mL oral liquid 650 mg 1 04/20/2024 acetaminophen (TYLENOL) suppository 650 mg 1 04/20/2024 dextrose (D10W) 10% bolus 250 mL 1 04/20/20 dextrose (GLUTOSE) 40 % gel 15 g 1 04/20/20 glucagon injection 1 mg 1 04/20/2024 insulin lispro (HumaLOG, ADM ELOG) 100 unit/mL injection 0-4 Units 1 04/20/2024 sodium chloride 0.9% flush 0.5-20 mL 1 03/2024 Lab Orders Without Results Count Last Ordered D ate First Ordered Date POCT GLUCOSE DEVICE 48 05/03/2024 04/20/20 Diet Count Last Ordered Date First Orde red Date ADULT DISCHARGE DIET 1 04/28/2024 Nursing Count Last Ordered Date First Orde red Date DISCHARGE ACTIVITY 1 04/28/2024 DISCHARGE CALL PROVIDER 7 04/28/2024 NURSING COMMUNICATION 1 04/23/2024 FERNANDEZ CATHETER - DISCONTINUE 1 04/21/2024 OBTAIN MEDICAL RECORDS 1 04/20/2024 TELEMETRY MONITORING 1 04/20/2024 WEIGH PATIENT 1 04/20/2024 Consult Count Last Ordered Date First Orde red Date IP CONSULT TO VASCULAR SURGERY 1 04/26/2024 IP CONSULT TO CARDIAC SURGERY 2 04/23/2024 04/22/2024 IP CONSULT TO CARDIOLOGY 1 04/22/2024 IP CONSULT TO NEUROLOGY 1 04/20/2024 Admission Count Last Ordered Date First Orde red Date ADMIT TO INPATIENT 1 04/20/2024 Discharge Count Last Ordered Date First Orde red Date DISCHARGE PATIENT 1 04/28/2024 CORE MEASURES Count Last Ordered Date First Ord ered Date REASON FOR NO VTE PROPHYLAXI S - HOSPITAL ADMISSION - MEDICATIONS 1 04/20/2024 documented in this encounter 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
--- OUTSIDE RECORDS SUMMARY | 2024-06-28 23:34 | XMS_ITS | Patient Health Summary ---
Author Organization [facility] Address [address] [facility] [place] [address] Care Team Providers Care Retail Client Manager Name Role Phone Edward Miranda MD Unavailable [phone] Note from [facility],non-owned Affiliates and Associated Physician Practices is amultiple site organization consisting of ambulatory clinics and hospital sitesin [place], [place], [place] and [place]. This disclosure is being madepursuant to the Care Everywhere program and may not contain all information available regarding this patient. Last updated 18.[facility] Allergies * Lisinopril(Cough) Medications * Be aware that medications may not be up to date on this document. Alwaysverify current medications with the patient. * NASONEX 50 MCG/ACT SUSP [place] 1 [place] into each nostril daily. Prn in the [...] SEDIMENTATION RATE(Performed 04/13/2012) Performed for Rheumatoid arthritis ([facility]) * C-REACTIVE PROTEIN(Performed 04/13/2012) Performed for Rheumatoid arthritis ([facility]) * COMPREHENSIVE METABOLIC PANEL(Performed 04/13/2012) Performed for Rheumatoid arthritis ([facility]) * CBC W AUTO DIFFERENTIAL(Performed 04/13/2012) Performed for Rheumatoid arthritis ([facility]) * LAB RESULTS ORDER(Performed 01/02/2012) * ERYTHROCYTE SEDIMENTATION RATE(Performed 01/01/2012) * COMPREHENSIVE METABOLIC PANEL(Performed 01/01/2012) * CBC W AUTO DIFFERENTIAL(Performed 01/01/2012) * ERYTHROCYTE SEDIMENTATION RATE(Performed 10/29/2011) Performed for Rheumatoid arthritis ([facility]) * COMPREHENSIVE METABOLIC PANEL(Performed 10/29/2011) Performed for Rheumatoid arthritis ([facility]) * CBC W AUTO DIFFERENTIAL(Performed 10/29/2011) Performed for Rheumatoid arthritis ([facility]) * ERYTHROCYTE SEDIMENTATION RATE(Performed 09/08/2011) * COMPREHENSIVE METABOLIC PANEL(Performed 09/08/2011) * CBC W AUTO DIFFERENTIAL(Performed 09/08/2011) * ERYTHROCYTE SEDIMENTATION RATE(Performed 06/25/2011) Performed for Rheumatoid arthritis ([facility]) * CBC W AUTO DIFFERENTIAL(Performed 06/25/2011) Performed for Rheumatoid arthritis ([facility]) * C-REACTIVE PROTEIN(Performed 06/25/2011) Performed for Rheumatoid arthritis ([facility]) * COMPREHENSIVE METABOLIC PANEL(Performed 06/25/2011) Performed for Rheumatoid arthritis ([facility]) * ERYTHROCYTE SEDIMENTATION RATE(Performed 05/07/2011) * COMPREHENSIVE METABOLIC PANEL(Performed 05/07/2011) * CBC W AUTO DIFFERENTIAL(Performed 05/07/2011) * ERYTHROCYTE SEDIMENTATION RATE(Performed 02/26/2011) Performed for Rheumatoid arthritis ([facility]) * C-REACTIVE PROTEIN(Performed 02/26/2011) Performed for Rheumatoid arthritis (HCC) * COMPREHENSIVE METABOLIC PANEL(Performed 02/26/2011) Performed for Rheumatoid arthritis ([facility]) * CBC W AUTO DIFFERENTIAL(Performed 02/26/2011) Performed for Rheumatoid arthritis ([facility]) * ERYTHROCYTE SEDIMENTATION RATE(Performed 01/02/2011) * CBC W AUTO DIFFERENTIAL(Performed 01/02/2011) * COMPREHENSIVE METABOLIC PANEL(Performed 01/02/2011) * C-REACTIVE PROTEIN(Performed 11/06/2010) Performed for Rheumatoid arthritis ([facility]) * VITAMIN D 25-HYDROXY(Performed 11/06/2010) Performed for Vitamin D deficiency * ERYTHROCYTE SEDIMENTATION RATE(Performed 11/06/2010) Performed for Rheumatoid arthritis ([facility]) * LIPID PROFILE W LDL/HDL RATIO(Performed 11/06/2010) Performed for Screening cholesterol level * COMPREHENSIVE METABOLIC PANEL(Performed 11/06/2010) Performed for Rheumatoid arthritis ([facility]) * CBC W AUTO DIFFERENTIAL(Performed 11/06/2010) Performed for Rheumatoid arthritis ([facility]) * COMPREHENSIVE METABOLIC PANEL(Performed 08/30/2010) Performed for Rheumatoid arthritis ([facility]) * CBC W AUTO DIFFERENTIAL(Performed 08/30/2010) Performed for Rheumatoid arthritis ([facility]) * ERYTHROCYTE SEDIMENTATION RATE(Performed 06/19/2010) Performed for Rheumatoid arthritis ([facility]) * C-REACTIVE PROTEIN(Performed 06/19/2010) Performed for Rheumatoid arthritis ([facility]) * COMPREHENSIVE METABOLIC PANEL(Performed 06/19/2010) Performed for Rheumatoid arthritis ([facility]) * CBC W AUTO DIFFERENTIAL(Performed 06/19/2010) Performed for Rheumatoid arthritis ([facility]) * ERYTHROCYTE SEDIMENTATION RATE(Performed 02/20/2010) Performed for Rheumatoid Arthritis ([facility]) * COMPREHENSIVE METABOLIC PANEL(Performed 02/20/2010) Performed for Rheumatoid Arthritis ([facility]) * C-REACTIVE PROTEIN(Performed 02/20/2010) Performed for Rheumatoid Arthritis ([facility]) * CBC W AUTO DIFFERENTIAL(Performed 02/20/2010) Performed for Rheumatoid Arthritis ([facility]) * LAB RESULTS ORDER(Performed 12/28/2009) * COMPREHENSIVE METABOLIC PANEL(Performed 12/27/2009) * CBC W AUTO DIFFERENTIAL(Performed 12/27/2009) * CBC W AUTO DIFFERENTIAL(Performed 10/24/2009) * ERYTHROCYTE SEDIMENTATION RATE(Performed 10/24/2009) Performed for Rheumatoid Arthritis ([facility]) * C-REACTIVE PROTEIN(Performed 10/24/2009) Performed for Rheumatoid Arthritis ([facility]) * COMPREHENSIVE METABOLIC PANEL(Performed 10/24/2009) Performed for [...] AM CDT) Case Report Flow Cytometry ?Case: [id number] ? Authorizing Provider: ??Arpan Kelly MD ?Collected: ? 09/23/2018 09:15 AM ? Pathologist: ? Lisa Chang MD ?? Received: ?09/23/2018 11:27 AM ? Specimen: ?Body Fluid , Right Breast Fluid ? 09/23/2018 1:58 PM [facility] Final Diagnosis Right breast fluid, flow cytometric immunophenotypic analysis: - Insufficient hematopoietic cells for analysis. - See interpretation. 09/23/2018 1:58 PM [facility] Flow Cytometry Interpretation Preliminary characterization of the right breast fluid specimen demonstrates too few hematopoietic cells for flow cytometric analysis. A cytospin prepared from the flow cytometry specimen is reviewed for aircraft quality control inspector purposes. Flow cytometry is not performed. KR/NW 09/23/2018 1:58 PM [facility] Flow Cytometry Results Insufficient cells are available for analysis. 09/23/2018 1:58 PM [facility] Client Specimen ID # [id number] 09/23/2018 1:58 PM [facility] Disclaimer Test performed at [facility], [address] [place] [address], [address]. *The established laboratory minimum viability is 70%. [...] complexity clinical testing. 09/23/2018 1:58 PM CDT [facility] Embedded Images 1:58 PM CDT [facility] Fluid BODY FLUID SPECIMEN / Unknown 09/23/2018 9:15 AM CDT 09/23/2018 11:27 AM CDT Arpan Kelly MD LAB - PATHOLOGY/CYTO LOGY ORDERABLES Performing Organization Address City/[facility]/ZIP Co de Phone Number [facility] [address] [phone] * C-REACTIVE PROTEIN (04/13/2012 3:56 PM CDT) Only the most recent of11 resultswithin the time period is included. C-Reactive Protein 2.9 0.0 - 4.9 mg/L [facility] ACCOUNT BILL Blood specimen (specimen) BLOOD SPECIMEN / Unknown 04/13/2012 3:56 PM CDT 04/13/2012 9:13 PM CDT Narrative Resulting Agency Comment [facility] ??[facility] [phone] Edward Miranda MD LAB - CHEMISTRY ORD ERABLES [facility] ACCOUNT BILL * SED RATE WESTERGREN (04/13/2012 3:56 PM CDT) Only the most recent of17 resultswithin the time period is included. Erythrocyte Sedimentation Rate Westergren 10 0 - 40 mm/hr [facility] ACCOUNT BILL Blood specimen (specimen) BLOOD SPECIMEN / Unknown 04/13/2012 3:56 PM CDT 04/13/2012 9:13 PM CDT Narrative Resulting Agency Comment [facility] [address] ??[facility] [phone] Edward Miranda MD LAB - HEMATOLOGY OR [...] PM CDT Narrative Resulting Agency Comment [facility] [address] ??[facility] [id number] Edward Miranda MD LAB - HEMATOLOGY OR [...] 9:13 PM CDT Narrative Resulting Agency Comment [facility] [place] [id number] [facility] ??[facility] [id number] Edward Miranda MD LAB - CHEMISTRY ORD ERABLES Performing Organization Address City/[facility]/ZIP Co de Phone Number [facility] ACCOUNT BILL [...] 5:53 PM CDT Narrative Resulting Agency Comment [facility] [place] [id number] [facility] ??[facility] [phone] Edward Miranda MD LAB - CHEMISTRY ORD [...] Agency Comment [facility] [address] ??[place] [phone] Edward Miranda MD LAB - CHEMISTRY ORD ERABLES [facility] ACCOUNT BILL * HEMOGLOBIN A1C (06/28/2008 10:34 AM BARREL ROLLER) Hemoglobin A1c 6.2 <7.0 % [facility] ACCOUNT BILL Comment: ?Diabetic Adult ?<7.0 ?Healthy Adult ?4.8 - 5.9 ?(DCCT/NGSP) ?[place] [employer]'s Summary of Glycemic ?Recommendations for Adults with Diabetes: ?Hemoglobin A1c <7.0%. More stringent glycemic goals ?(A1c <6.0%) may further reduce complications at the ?cost of increased risk of hypoglycemia. 06/28/2008 10:3 4 AM BARREL ROLLER 06/28/2008 5:56 PM BARREL ROLLER Narrative Resulting Agency Comment [facility] [address] ??[facility] [phone] Edward Miranda MD LAB - CHEMISTRY ORD ELIO [facility] ACCOUNT BILL Care Teams Retail Client Manager Relationship Specialty Start Date End Date Edward Miranda MD Rheumatology 06/24/11
--- OUTSIDE RECORDS SUMMARY | 2024-06-28 23:34 | XMS_ITS | Encounter Summary ---
Author Organization [facility] Address [address] [facility] [place] [address] Care Team Providers Care Airplane Cleaner Name Role Phone Edward Miranda MD Unavailable [phone] Reason for Visit * Reason Comments Rheumatoid Arthritis Encounter Details Date Type Department Care Team (Late st Contact Info) Description 10/29/2011 10:15 AM CDT Office Visit [facility] Medical [facility] - Rheumatology [address] [place] [address] [phone] Edward Miranda MD [address] [place] [id number] Rheumatoid arthritis (HCC) (Primary Dx) Social [...] Tab 5 ??? NASONEX 50 MCG/ACT SUSP [place] 1 [place] into each nostril daily. 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 Pain Level: 110 Am stiffness [...] Standing orders draw every 2 months See employment assistant Follow up in office in 4 mo [...] PM CDT Narrative Resulting Agency Comment [facility] [place] [id number] [facility] ??[facility] [phone] Edward Miranda MD LAB - HEMATOLOGY OR [...] PM CDT Narrative Resulting Agency Comment [facility] [address] ??[facility] [phone] Edward Miranda MD LAB - CHEMISTRY ORD [...] PM CDT Narrative Resulting Agency Comment [facility] [place] [address] [facility] ??[facility] [phone] Edward Miranda MD LAB - HEMATOLOGY OR DERABLES [facility] ACCOUNT BILL documented in this encounter Visit Diagnoses Diagnosis Rheumatoid arthritis(714.0) (HCC)- Primary Rheumatoid arthritis documented in this encounter Care Teams Airplane Cleaner Relationship Specialty Start Date End Date Edward Miranda MD Rheumatology 06/24/11 documented as of this encounter
--- OUTSIDE RECORDS SUMMARY | 2024-06-28 23:34 | XMS_ITS | Encounter Summary ---
Author Organization [facility] Address [address] [place] [address] Care Team Providers Care Postal Transportation Clerk Name Role Phone Edward Miranda MD Unavailable [phone] Reason for Visit * Reason Comments Follow-up Ra Encounter Details Date Type Department Care Team (Late st Contact Info) Description 06/25/2011 10:15 AM SURVEY WORKERS SUPERVISOR Office Visit [facility] Medical [facility] - Rheumatology [address] [place] [address] [phone] Edward Miranda MD [address] [place] [address] Rheumatoid arthritis (HCC) (Primary Dx) Social [...] Comments Blood Pressure 128/74 06/25/2011 10:28 AM SURVEY WORKERS SUPERVISOR Pulse 76 06/25/2011 10:28 AM SURVEY WORKERS SUPERVISOR Temperature - - Respiratory Rate - - Oxygen Saturation - - Inhaled Oxygen Concentration - - Weight 62.1 kg (137 lb) 06/25/2011 10:28 AM SURVEY WORKERS SUPERVISOR Height - - Body Mass Index 24.27 10/27/2008 10:24 AM CDT documented in this encounter Progress Notes * Bibiana Paula MA - 07/10/2011 4:55 PM CSTQuick Note: Letter mailed to patient regarding lab results. EY WORKERS SUPERVISOR * Edward Miranda MD - 07/07/2011 8:05 PM CSTQuick Note: mtx ok EY WORKERS SUPERVISOR * Edward Miranda MD - 06/25/2011 10:27 AM CST Subjective: Senia Ruth 50 y.o. female Chief Complaint Patient presents with ??? Follow-up Ra Current Outpatient Prescriptions on File Prior to Visit Medication Sig Dispense Refill ??? methotrexate (RHEUMATREX) 2.5 MG tablet Take 4 Tabs by mouth every 7 days. 16 Tab 5 ??? NASONEX 50 MCG/ACT SUSP [place] 1 [place] into each nostril daily. Prn in the [...] AUTO Follow up in office in 4mo EY WORKERS SUPERVISOR * Deepali Castellon MA - 06/25/2011 10:26 AM CST Chief Complaint Patient presents with ??? Follow-up Ra BP 128/74 Pulse 76 Wt 137 lb (62.143 kg) EY WORKERS SUPERVISOR documented in this encounter Plan of Treatment Not on file documented as of this encounter Procedures Procedure Name Priority Date/Time Associated Diagnosis Comments ERYTHROCYTE SEDIMENTATION RATE Routine 06/25/2011 10:36 AM SURVEY WORKERS SUPERVISOR Rheumatoid arthritis (HCC) CBC W AUTO DIFFERENTIAL Routine 06/25/2011 10:36 AM SURVEY WORKERS SUPERVISOR Rheumatoid arthritis (HCC) C-REACTIVE PROTEIN Routine 06/25/2011 10 :35 AM SURVEY WORKERS SUPERVISOR Rheumatoid arthritis (HCC) COMPREHENSIVE METABOLIC PANEL Routine 06/25/2011 10:35 AM SURVEY WORKERS SUPERVISOR Rheumatoid arthritis (HCC) documented in this encounter Results * SED RATE WESTERGREN AUTO (06/25/2011 10:36 AM SURVEY WORKERS SUPERVISOR) Erythrocyte Sedimentation Rate Westergren 4 0 - 56 mm/hr [facility] ACCOUNT BILL Blood specimen (specimen) BLOOD SPECIMEN / Unknown 06/25/2011 10:36 AM SURVEY WORKERS SUPERVISOR 06/25/2011 5:54 PM SURVEY WORKERS SUPERVISOR Narrative Resulting Agency Comment [facility] [place] [address] [facility] ??[facility] [phone] Edward Miranda MD LAB - HEMATOLOGY OR DERABLES [facility] ACCOUNT BILL * CBC W AUTO DIFFERENTIAL (06/25/2011 10:36 AM SURVEY WORKERS SUPERVISOR) WBC 5.2 4.0 - 10.5 x10E3/uL [facility] [...] BLOOD SPECIMEN / Unknown 06/25/2011 10:36 AM SURVEY WORKERS SUPERVISOR 06/25/2011 5:54 PM SURVEY WORKERS SUPERVISOR Narrative Resulting Agency Comment [facility] [address] ??[facility] [phone] Edward Miranda MD LAB - HEMATOLOGY OR DERABLES Performing Organization Address [facility]/ZIP Co de Phone Number [facility] ACCOUNT BILL * C-REACTIVE PROTEIN (06/25/2011 10:35 AM SURVEY WORKERS SUPERVISOR) C-Reactive Protein 2.7 0.0 - 4.9 mg/L [facility] ACCOUNT BILL Blood specimen (specimen) BLOOD SPECIMEN / Unknown 06/25/2011 10:35 AM SURVEY WORKERS SUPERVISOR 06/25/2011 6:23 PM SURVEY WORKERS SUPERVISOR Narrative Resulting Agency Comment [facility] [place] [id number] [facility] ??[facility] [phone] Edward Miranda MD LAB - CHEMISTRY ORD ERABLES Performing Organization Address City/[facility]/ZIP Co de Phone Number [facility] ACCOUNT BILL * (ABNORMAL) COMPREHENSIVE METABOLIC PANEL (06/25/2011 10:35 AM SURVEY WORKERS SUPERVISOR) Glucose 122(H) 65 - 99 mg/dL [facility] [...] BLOOD SPECIMEN / Unknown 06/25/2011 10:35 AM SURVEY WORKERS SUPERVISOR 06/25/2011 6:23 PM SURVEY WORKERS SUPERVISOR Narrative Resulting Agency Comment [facility] [address] ??[facility] [phone] Edward Miranda MD LAB - CHEMISTRY ORD ERABLES [facility] ACCOUNT BILL documented in this encounter Visit Diagnoses Diagnosis Rheumatoid arthritis(714.0) (HCC)- Primary Rheumatoid arthritis documented in this encounter Care Teams Postal Transportation Clerk Relationship Specialty Start Date End Date Edward Miranda MD Rheumatology 06/24/11 documented as of this encounter
--- OUTSIDE RECORDS SUMMARY | 2024-06-28 23:34 | XMS_ITS | Encounter Summary ---
Author Organization [facility] Address [address] [facility] [place] [address] Care Team Providers Care Quality Compliance Consultant Name Role Phone Edward Miranda MD Unavailable [phone] Reason for Visit * Reason Comments Follow-up ra Encounter Details Date Type Department Care Team (Late st Contact Info) Description 04/13/2012 3:15 PM CDT Office Visit [facility] Medical [facility] - Rheumatology [address] [place] [address] [phone] Edward Miranda MD [address] [place], [place] [id number] Rheumatoid arthritis (HCC) (Primary Dx); Sinusitis acute [...] Tab 5 ??? NASONEX 50 MCG/ACT SUSP [place] 1 [place] into each nostril daily. Prn in the [...] PM CDT Narrative Resulting Agency Comment [facility] [address] ??[facility] [phone] Edward Miranda MD LAB - HEMATOLOGY OR DERABLES Performing Organization Address City/[facility]/ZIP Co de Phone Number [facility] ACCOUNT BILL * C-REACTIVE PROTEIN (04/13/2012 3:56 PM CDT) C-Reactive Protein 2.9 0.0 - 4.9 mg/L [facility] ACCOUNT BILL Blood specimen (specimen) BLOOD SPECIMEN / Unknown 04/13/2012 3:56 PM CDT 04/13/2012 9:13 PM CDT Narrative Resulting Agency Comment [facility] ??[facility] [phone] Edward Miranda MD LAB - CHEMISTRY ORD [...] PM CDT Narrative Resulting Agency Comment [facility] [address] ??[facility] [phone] Edward Miranda MD LAB - CHEMISTRY ORD [...] PM CDT Narrative Resulting Agency Comment [facility] [address] ??[facility] [phone] Edward Miranda MD LAB - HEMATOLOGY OR DERABLES [facility] ACCOUNT BILL documented in this encounter Visit Diagnoses Diagnosis Rheumatoid arthritis(714.0) ([facility])- Primary Rheumatoid arthritis Sinusitis acute Acute sinusitis, unspecified documented in this encounter Care Teams Quality Compliance Consultant Relationship Specialty Start Date End Date Edward Miranda MD Rheumatology 06/24/11 documented as of this encounter
--- OUTSIDE RECORDS SUMMARY | 2024-06-28 23:34 | XMS_ITS | Encounter Summary ---
Author Organization [facility] Address [address] [facility] [place] [address] Care Team Providers Care Underpresser Hand Name Role Phone Unavailable Primary Care Provider Unavailabl e Reason for Visit * Reason Onset Date Comments MEDICATION REFILL 02/27/2011 Encounter Details Date Type Department Care Team (Late st Contact Info) Description 02/27/2011 Refill [facility] Medical [facility] - Family Medicine [address] [place] [id number] Edward Miranda MD [address] [place], [place] [id number] MEDICATION REFILL Social History Tobacco Use Types [...] this encounter Visit Diagnoses Diagnosis Rheumatoid arthritis(714.0) ([facility])- Primary Rheumatoid arthritis documented in this encounter
--- OUTSIDE RECORDS SUMMARY | 2024-06-28 23:34 | XMS_ITS | Encounter Summary ---
Author Organization [facility] Address [address] [facility] [place] [address] Care Team Providers Care Claims Agent Right Of Way Name Role Phone Unavailable Primary Care Provider Unavailabl e Reason for Visit * Reason Onset Date Comments MEDICATION REFILL 02/25/2011 Encounter Details Date Type Department Care Team (Late st Contact Info) Description 02/25/2011 Refill [facility] Medical [facility] - Family Medicine [address] [place] [address] [phone] Edward Miranda MD [address] [place] [id number] MEDICATION REFILL Social History Tobacco Use [...] Visit Diagnoses Diagnosis Rheumatoid arthritis(714.0) ([facility])- Primary Rheumatoid arthritis documented in this encounter
--- OUTSIDE RECORDS SUMMARY | 2024-06-28 23:34 | XMS_ITS | Clinical Summary ---
Author Organization [facility] Address [address] [place] [address] Care Team Providers Care Spring Crater Name Role Phone Edward Miranda MD Unavailable [phone] Source Comments [facility],non-owned Affiliates and Associated Physician Practices is amultiple site organization consisting of ambulatory clinics and hospital sitesin [place], [place], [place] and [place]. This disclosure is being madepursuant to the Care Everywhere program and may not contain all information available regarding this patient. Last updated 18.[facility] Allergies Active Allergy Reactions Criticality Noted Date Comments Lisinopril 10/27/2008 Cough Medications * Be aware that medications may not be up to date on this document. Alwaysverify current medications with the patient. Medication Sig Dispensed Refills Start Date End Date Status NASONEX 50 MCG/ACT SUSP [place] 1 [place] into each nostril daily. Prn in the [...] PM CDT Narrative Resulting Agency Comment [facility] [address] ??[facility] [phone] Edward Miranda MD LAB - CHEMISTRY ORD ERABLES [facility] ACCOUNT BILL from Last 3 Months or Most Recently Relevant to Health Maintenance Care Teams Spring Crater Relationship Specialty Start Date End Date Edward Miranda MD Rheumatology 06/24/11
--- OUTSIDE RECORDS SUMMARY | 2024-06-28 23:34 | XMS_ITS | Encounter Summary ---
Author Organization [facility] Address [address] [place] [address] [place] [address] Care Team Providers Care Documentation Supervisor Name Role Phone Unavailable Primary Care Provider Unavailabl e Reason for Visit * Reason Comments Follow-up ra Dizziness wants her ears check , Sx for few days, no drainage, no cold, no morris Encounter Details Date Type Department Care Team (Late st Contact Info) Description 02/26/2011 10:15 AM CDT Office Visit [facility] - Rheumatology [address] [place] [address] [phone] Edward Miranda MD [address] [place] [address] Rheumatoid arthritis (HCC) (Primary Dx); Hyperlipidemia Social [...] MD - 03/03/2011 6:08 AM CDTQuick Note: [facility] 119 mtx ok * Edward Miranda MD - 02/26/2011 10:53 AM CDT Subjective: Senia Ruth 50 y.o. female Chief Complaint Patient presents with ??? Follow-up ra ??? Dizziness wants her ears check, Sx for few days, no drainage, no cold, no morris Current Outpatient Prescriptions on File Prior to Visit Medication Sig Dispense Refill ??? methotrexate (RHEUMATREX) 2.5 MG tablet Take 4 Tabs by mouth every 7 days. 16 Tab 4 ??? NASONEX 50 MCG/ACT SUSP Aubrey 1 Aubrey into each nostril daily. Prn in the [...] 5:12 PM CDT Narrative Resulting Agency Comment [facility] ??[facility] [phone] Edward Miranda MD LAB - HEMATOLOGY OR DERABLES Performing Organization Address City/[facility]/ZIP Co de Phone Number [facility] ACCOUNT BILL * C-REACTIVE PROTEIN (02/26/2011 10:49 AM CDT) C-Reactive Protein 2.3 0.0 - 4.9 mg/L [facility] ACCOUNT BILL BLOOD SPECIMEN / Unknown 02/26/2011 10:49 AM CDT 02/26/2011 5:12 PM CDT Narrative Resulting Agency Comment [facility] ??[facility] [phone] Edward Miranda MD LAB - CHEMISTRY ORD ERABLES Performing Organization Address [facility]/ZIP Co de Phone Number [facility] ACCOUNT BILL [...] PM CDT Narrative Resulting Agency Comment [facility] [address] ??[facility] [phone] Edward Miranda MD LAB - CHEMISTRY ORD [...] PM CDT Narrative Resulting Agency Comment [facility] [address] ??[facility] [phone] Edward Miranda MD LAB - HEMATOLOGY OR DERABLES [facility] ACCOUNT BILL documented in this encounter Visit Diagnoses Diagnosis Rheumatoid arthritis(714.0) (HCC)- Primary Rheumatoid arthritis Hyperlipidemia Other and unspecified hyperlipidemia documented in this encounter
--- OUTSIDE RECORDS SUMMARY | 2024-06-28 23:34 | XMS_ITS | Referral Summary ---
Author Organization [facility] Address [address] [place] [address] Care Team Providers Care Candy Spreader Name Role Phone Edward Miranda MD Unavailable Source Comments [facility],non-owned Affiliates and Associated Physician Practices is amultiple site organization consisting of ambulatory clinics and hospital sitesin [place], [place], [place] and [place]. This disclosure is being madepursuant to the Care Everywhere program and may not contain all information available regarding this patient. Last updated 18.[facility] Allergies Active Allergy Reactions Criticality Noted Date Comments Lisinopril 10/27/2008 Cough Medications * Be aware that medications may not be up to date on this document. Alwaysverify current medications with the patient. Medication Sig Dispensed Refills Start Date End Date Status NASONEX 50 MCG/ACT SUSP Edna 1 Edna into each nostril daily. Prn in the [...] PM CDT Narrative Resulting Agency Comment [facility] [address] ??[facility] [phone] Edward Miranda MD LAB - CHEMISTRY ORD ERABLES [facility] ACCOUNT BILL from Last 3 Months or Most Recently Relevant to Health Maintenance Care Teams Candy Spreader Relationship Specialty Start Date End Date Edward Miranda MD Rheumatology 06/24/11
--- OUTSIDE RECORDS SUMMARY | 2024-06-28 23:34 | XMS_ITS | Encounter Summary ---
Author Organization [facility] Address [address] [place] [address] Care Team Providers Care Fiberglass Boat Parts Finisher Name Role Phone Edward Miranda MD Unavailable Reason for Visit * Reason Onset Date Comments MEDICATION REFILL 03/16/2012 Encounter Details Date Type Department Care Team (Late st Contact Info) Description 03/16/2012 Refill [facility] Medical [facility] - Rheumatology [address] [place] [phone] Edward Miranda MD [address] [place] [address] MEDICATION REFILL Social History Tobacco Use Types [...] encounter Visit Diagnoses Diagnosis Rheumatoid arthritis(714.0) ([facility])- Primary Rheumatoid arthritis documented in this encounter Care Teams Fiberglass Boat Parts Finisher Relationship Specialty Start Date End Date Edward Miranda MD Rheumatology 06/24/11 documented as of this encounter
--- OUTSIDE RECORDS SUMMARY | 2024-06-28 23:34 | XMS_ITS | Encounter Summary ---
Author Organization [facility] Address [address] [place] [address] Care Team Providers Care Hunter Guide Name Role Phone Edward Miranda MD Unavailable [phone] Encounter Details Date Type Department Care Team (Late st Contact Info) Description 09/23/2018 Lab Requisition [facility] Care Pathology Lab [address] [place] [address] Arpan Kelly MD [address] [place] [phone] Social History Tobacco Use Types Packs/Day [...] AM CDT) Case Report Flow Cytometry ?Case: [id number] ? Authorizing Provider: ??Arpan Kelly MD ?Collected: ? 09/23/2018 09:15 AM ? Pathologist: ? Lisa Chang MD ?? Received: ?09/23/2018 11:27 AM ? Specimen: ?Body Fluid , Right Breast Fluid ? 09/23/2018 1:[address] [facility] PATHOLOGY LAB Final Diagnosis Right breast fluid, flow cytometric immunophenotypic analysis: - Insufficient hematopoietic cells for analysis. - See interpretation. 09/23/2018 1:[address] [facility] PATHOLOGY LAB Flow Cytometry Interpretation Preliminary characterization of the right breast fluid specimen demonstrates too few hematopoietic cells for flow cytometric analysis. A cytospin prepared from the flow cytometry specimen is reviewed for supplier quality engineer purposes. Flow cytometry is not performed. KR/NW 09/23/2018 1:[address] [facility] PATHOLOGY LAB Flow Cytometry Results Insufficient cells are available for analysis. 09/23/2018 1:[address] [facility] PATHOLOGY LAB Client Specimen ID # [id number] 09/23/2018 1:[address] [facility] PATHOLOGY LAB Disclaimer Test performed at [facility], [address] [place] [address], [address]. *The established laboratory minimum viability is 70%. [...] high complexity clinical testing. 09/23/2018 1:[address] [facility] PATHOLOGY LAB Embedded Images 03/14/201 9 1:58 PM CDT [facility] PATHOLOGY LAB Fluid BODY FLUID SPECIMEN / Unknown 09/23/2018 9:15 AM CDT 09/23/2018 11:27 AM CDT Arpan Kelly MD LAB - PATHOLOGY/CYTO LOGY ORDERABLES Performing Organization Address City/State/[facility] de Phone Number [facility] PATH[facility]Y LAB [address] [phone] documented in this encounter Visit Diagnoses Not on filedocumented in this encounter Care Teams Hunter Guide Relationship Specialty Start Date End Date Edward Miranda MD Rheumatology 06/24/11 documented as of this encounter
--- OUTSIDE RECORDS SUMMARY | 2024-06-28 23:34 | XMS_ITS | Encounter Summary ---
Author Organization [facility] Address [address] [place] [address] Care Team Providers Care Ditching Machine Engineer Name Role Phone Unavailable Primary Care Provider Unavailabl e Reason for Visit * Reason Onset Date Comments MEDICATION REFILL 02/25/2011 Encounter Details Date Type Department Care Team (Late st Contact Info) Description 02/25/2011 Refill [facility] Medical [facility] - Family Medicine [id number] [place] [address] [phone] Edward Miranda MD [address] [place] [address] MEDICATION REFILL Social History Tobacco Use [...] this encounter Visit Diagnoses Diagnosis Rheumatoid arthritis(714.0) ([facility])- Primary Rheumatoid arthritis documented in this encounter
--- OUTSIDE RECORDS SUMMARY | 2024-06-28 23:35 | XMS_ITS | Encounter Summary ---
Author Organization [facility] Health Address [address] [place] [address] Care Team Providers Care Radio Artist Name Role Phone Unavailable Primary Care Provider Unavailabl e Encounter Details Date Type Department Care Team (Late st Contact Info) Description 12/28/2008 Orders Only [facility] - Rheumatology [address] [place] [phone] Edward Miranda MD [address] [place] [address] [phone] Social History Tobacco Use Types Packs/Day Years [...] INSURANCE BILL - 12/29/2008 6:14 AM CDT [phone]. Resulting Agency Comment [facility] [address] ??[facility] [phone] Edward Miranda MD LAB - CHEMISTRY ORD [...] INSURANCE BILL - 12/29/2008 6:14 AM CDT [phone]. Additional Result Information HEMATOLOGY COMMENTS: ??BLOOD,URINE ([facility]): RESULT NOT AVAILABLE Resulting Agency Comment [facility] ??[facility] [phone] Edward Miranda MD LAB - HEMATOLOGY OR DERABLES Performing Organization Address City/State/[facility] Co de Phone Number [facility] INSURANCE BILL documented in this encounter Visit Diagnoses Not on filedocumented in this encounter
--- OUTSIDE RECORDS SUMMARY | 2024-06-28 23:35 | XMS_ITS | Encounter Summary ---
Author Organization [facility] Address [facility] [facility] 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 04/05/2024 Encounter Details Date Type Department Care Team (Late st Contact Info) Description 04/05/2024 Telephone [facility] ield [address] [place] [address] Arnaldo Ga MD [address] [place] [address] Schedule Procedure; Called To Cancel [...] patient had a mini stroke. [facility] Sacha gomez, RN aware. * Linda Collins [...] Info) Description 01/17/2025 8:00 AM CDT Appointment [facility] [address] [place] [address] Judie Carnes MD [address] [place] [address] 01/20/2025 10:30 AM CDT Office Visit [facility] [place] [address] Judie Carnes MD [address] [place] [address] Scheduled Orders Name Type Priority Associated Diagnoses Orde r Schedule XA LOOP RECORDER Cardiac Cath Routine Cerebrovascular accident (CVA) due to other mechanism ([facility]) Expected: 04/19/2024, Expires: 04/06/2025 documented as of this encounter Visit Diagnoses Diagnosis Cerebrovascular accident (CVA) due to other mechanism ([facility])- Primary documented in this encounter Care Teams Linux Vmware Administrator Relationship Specialty Start Date End Date William Craig MD [address] [place] [address] PCP - General INTERNAL MEDICINE 01/15/24 Judie Carnes MD [address] [place] [address] [employer] Computer Support Specialist Instructor CARDIOVASCULAR DISEASE 01/15/24 documented as of this encounter
--- OUTSIDE RECORDS SUMMARY | 2024-06-28 23:35 | XMS_ITS | Encounter Summary ---
Author Organization [facility] Address [address] [place] [address] Care Team Providers Care Brewery Representative Name Role Phone Unavailable Primary Care Provider Unavailabl e Encounter Details Date Type Department Care Team (Late st Contact Info) Description 10/24/2009 Orders Only [facility] - Rheumatology [address] [place] [phone] Edward Miranda MD [address] [place] [address] [phone] Social History Tobacco Use Types Packs/Day Years [...] RESULT NOT AVAILABLE Resulting Agency Comment [facility] [address] ??[facility] [phone] Edward Miranda MD LAB - HEMATOLOGY OR DERABLES [facility] ACCOUNT BILL documented in this encounter Visit Diagnoses Not on filedocumented in this encounter
--- OUTSIDE RECORDS SUMMARY | 2024-06-28 23:35 | XMS_ITS | Encounter Summary ---
Author Organization [facility] Address [address] [place] [address] [place] [address] Care Team Providers Care Team Leader/Research Psychologist Name Role Phone Unavailable Primary Care Provider Unavailabl e Reason for Visit * Reason Comments Follow-up 4 months for RA Encounter Details Date Type Department Care Team (Late st Contact Info) Description 10/27/2008 10:15 AM CDT Office Visit [facility] Medical [facility] - Rheumatology [address] [place] [address] Edward Miranda MD [address] [place], [place] [phone] Rheumatoid Arthritis (HCC) (Primary Dx); Back Pain [...] 6:12 PM CDT Narrative Resulting Agency Comment [facility] ??[facility] [phone] Edward Miranda MD LAB - HEMATOLOGY OR DERABLES Performing Organization Address City/[facility]/ZIP Co de Phone Number [facility] ACCOUNT BILL * C-REACTIVE PROTEIN (10/27/2008 11:10 AM CDT) C-Reactive Protein 1.8 0.0 - 4.9 mg/L [facility] ACCOUNT BILL BLOOD SPECIMEN / Unknown 10/27/2008 11:10 AM CDT 10/27/2008 6:12 PM CDT Narrative Resulting Agency Comment [facility] [address] ??[facility] [phone] Edward Miranda MD LAB - CHEMISTRY ORD ERABLES Performing Organization Address City/[facility]/ZIP Co de Phone Number [facility] ACCOUNT BILL [...] PM CDT Narrative Resulting Agency Comment [facility] [address] ??[facility] [phone] Edward Miranda MD LAB - CHEMISTRY ORD [...] RESULT NOT AVAILABLE Resulting Agency Comment [facility] [address] ??[facility] [phone] Edward Miranda MD LAB - HEMATOLOGY OR DERABLES [facility] ACCOUNT BILL documented in this encounter Visit Diagnoses Diagnosis Rheumatoid arthritis(714.0) ([facility])- Primary Rheumatoid arthritis Back pain Backache, unspecified documented in this encounter
--- OUTSIDE RECORDS SUMMARY | 2024-06-28 23:35 | XMS_ITS | Encounter Summary ---
Author Organization [facility] Health Address [address] [place] [address] [place] [address] Care Team Providers Care Interactive Media Project Manager Name Role Phone Unavailable Primary Care Provider Unavailabl e Reason for Visit * Reason Comments Follow-up RA General needs standing order for random blood work Encounter Details Date Type Department Care Team (Late st Contact Info) Description 02/20/2010 10:15 AM CDT Office Visit [facility] - Rheumatology [address] [place] [address] Edward Miranda MD [address] [place], [place] [phone] Rheumatoid Arthritis (HCC) (Primary Dx) Social History [...] CSTQuick Note: Sent lab letter to pt NCIAL COMPLIANCE MANAGER * Edward Miranda MD - 09/05/2010 7:58 AM CSTQuick Note: mtx ok NCIAL COMPLIANCE MANAGER * Migdalia Vitale MA - 02/28/2010 8:19 [...] Dispense Refill ??? NASONEX 50 MCG/ACT SUSP [place] 1 [place] into each nostril daily. Prn in the [...] W AUTO DIFFERENTIAL Routine 08/30/2010 2:36 PM FINANCIAL COMPLIANCE MANAGER Rheumatoid arthritis (HCC) COMPREHENSIVE METABOLIC PANEL Routine 08/30/2010 2:36 PM FINANCIAL COMPLIANCE MANAGER Rheumatoid arthritis (HCC) C-REACTIVE PROTEIN Routine 02/20/2010 11 :10 AM CDT Rheumatoid Arthritis (HCC) ERYTHROCYTE SEDIMENTATION RATE Routine 02/20/2010 11:10 AM CDT Rheumatoid Arthritis (HCC) CBC W AUTO DIFFERENTIAL Routine 02/20/2010 11:10 AM CDT Rheumatoid Arthritis (HCC) COMPREHENSIVE METABOLIC PANEL Routine 02/20/2010 11:10 AM CDT Rheumatoid Arthritis (HCC) documented in this encounter Results * COMPREHENSIVE METABOLIC PANEL (08/30/2010 2:36 PM FINANCIAL COMPLIANCE MANAGER) Glucose 98 65 - 99 mg/dL [facility] [...] BLOOD SPECIMEN / Unknown 08/30/2010 2:36 PM FINANCIAL COMPLIANCE MANAGER 08/31/2010 3:37 AM FINANCIAL COMPLIANCE MANAGER Narrative Resulting Agency Comment [facility] [address] ??[facility] [phone] Edward Miranda MD LAB - CHEMISTRY ORD ERABLES [facility] INSURANCE BILL * CBC W AUTO DIFFERENTIAL (08/30/2010 2:36 PM FINANCIAL COMPLIANCE MANAGER) WBC 6.7 4.0 - 10.5 x10E3/uL [facility] [...] from your office. In accordance with the [facility] Ambiguous Test Code Policy dated January 2003, we have assigned CBC with Differential/Platelet, Test Code #088629 to this request. If this is not the testing you wished to receive on this specimen, please contact the [facility] Client [facility]quiry/ Technical Services Department to clarify the test order. We appreciate your business. Ancillary determined the test is not needed BLOOD SPECIMEN / Unknown 08/30/2010 2:36 PM FINANCIAL COMPLIANCE MANAGER 08/31/2010 3:37 AM FINANCIAL COMPLIANCE MANAGER Narrative Resulting Agency Comment [facility] ??[facility] [phone] Edward Miranda MD LAB - HEMATOLOGY OR DERABLES [facility] INSURANCE BILL * SED RATE WESTERGREN AUTO (02/20/2010 11:10 AM CDT) Erythrocyte Sedimentation Rate Westergren 4 0 - 20 mm/hr [facility] ACCOUNT BILL BLOOD SPECIMEN / Unknown 02/20/2010 11:10 AM CDT 02/20/2010 6:36 PM CDT Narrative Resulting Agency Comment [address] ??[facility] [phone] Edward Miranda MD LAB - HEMATOLOGY OR [...] PM CDT Narrative Resulting Agency Comment [facility] [address] ??[facility] [phone] Edward Miranda MD LAB - CHEMISTRY ORD ERABLES [facility] ACCOUNT BILL * C-REACTIVE PROTEIN (02/20/2010 11:10 AM CDT) C-Reactive Protein 2.4 0.0 - 4.9 mg/L [facility] ACCOUNT BILL BLOOD SPECIMEN / Unknown 02/20/2010 11:10 AM CDT 02/20/2010 6:36 PM CDT Narrative Resulting Agency Comment [facility] [place] [address] ??[facility] [phone] Edward Miranda MD LAB - CHEMISTRY ORD [...] PM CDT Narrative Resulting Agency Comment [facility] [place] [address] [facility] ??[facility] [phone] Edward Miranda MD LAB - HEMATOLOGY OR DERABLES [facility] ACCOUNT BILL documented in this encounter Visit Diagnoses Diagnosis Rheumatoid arthritis(714.0) (HCC)- Primary Rheumatoid arthritis documented in this encounter
--- OUTSIDE RECORDS SUMMARY | 2024-06-28 23:35 | XMS_ITS | Encounter Summary ---
Author Organization [facility] Address [address] [place] [address] [place] [address] Care Team Providers Care Casing Inspector Name Role Phone Unavailable Primary Care Provider Unavailabl e Reason for Visit * Reason Comments Follow-up Ra Encounter Details Date Type Department Care Team (Late st Contact Info) Description 06/19/2010 10:15 AM GEM CARVER Office Visit [facility] Medical [facility] - Rheumatology [address] [place] [address] [phone] Edward Miranda MD [address] [place] [address] Rheumatoid arthritis (HCC) (Primary Dx) Social History [...] Comments Blood Pressure 140/96 06/19/2010 10:45 AM GEM CARVER Pulse 76 06/19/2010 10:45 AM GEM CARVER Temperature - - Respiratory Rate - - Oxygen Saturation - - Inhaled Oxygen Concentration - - Weight 60.8 kg (134 lb) 06/19/2010 10:45 AM GEM CARVER Height - - Body Mass Index 23.74 10/27/2008 10:24 AM CDT documented in this encounter Progress Notes * Migdalia Vitale MA - 06/26/2010 3:13 PM CSTQuick Note: Letter mailed to patient regarding lab results. CARVER * Edward Miranda MD - 06/23/2010 10:08 PM CSTQuick Note: mtx ok CARVER * Edward Miranda MD - 06/19/2010 11:15 AM CST Subjective: Senia Ruth 49 y.o. female Chief Complaint Patient presents with ??? Follow-up Ra Current outpatient prescriptions ordered prior to encounter Medication Sig Dispense Refill ??? Methotrexate, Anti-Rheumatic, 2.5 MG TABS Take 10 mg by mouth every 7 days. 16 Tab 12 ??? NASONEX 50 MCG/ACT SUSP Dwarf 1 Dwarf into each nostril daily. Prn in the [...] Follow up in office in 4 mo CARVER * Deepali Castellon MA - 06/19/2010 10:46 AM CST Chief Complaint Patient presents with ??? Follow-up Ra BP 140/96 Pulse 76 Wt 134 lb (60.782 kg) CARVER documented in this encounter Plan of Treatment Not on file documented as of this encounter Procedures Procedure Name Priority Date/Time Associated Diagnosis Comments C-REACTIVE PROTEIN Routine 06/19/2010 11 :08 AM GEM CARVER Rheumatoid arthritis (HCC) ERYTHROCYTE SEDIMENTATION RATE Routine 06/19/2010 11:08 AM GEM CARVER Rheumatoid arthritis (HCC) CBC W AUTO DIFFERENTIAL Routine 06/19/2010 11:07 AM GEM CARVER Rheumatoid arthritis (HCC) COMPREHENSIVE METABOLIC PANEL Routine 06/19/2010 11:07 AM GEM CARVER Rheumatoid arthritis (HCC) documented in this encounter Results * SED RATE WESTERGREN AUTO (06/19/2010 11:08 AM GEM CARVER) Erythrocyte Sedimentation Rate Westergren 5 0 - 20 mm/hr [facility] ACCOUNT BILL BLOOD SPECIMEN / Unknown 06/19/2010 11:08 AM GEM CARVER 06/19/2010 5:12 PM GEM CARVER Narrative Resulting Agency Comment [facility] [address] ??[facility] [phone] Edward Miranda MD LAB - HEMATOLOGY OR DERABLES [facility] ACCOUNT BILL * C-REACTIVE PROTEIN (06/19/2010 11:08 AM GEM CARVER) C-Reactive Protein 2.7 0.0 - 4.9 mg/L [facility] ACCOUNT BILL BLOOD SPECIMEN / Unknown 06/19/2010 11:08 AM GEM CARVER 06/19/2010 5:12 PM GEM CARVER Narrative Resulting Agency Comment [facility] [address] ??[facility] [phone] Edward Miranda MD LAB - CHEMISTRY ORD ERABLES [facility] ACCOUNT BILL * (ABNORMAL) COMPREHENSIVE METABOLIC PANEL (06/19/2010 11:07 AM GEM CARVER) Glucose 122(H) 65 - 99 mg/dL [facility] [...] BLOOD SPECIMEN / Unknown 06/19/2010 11:07 AM GEM CARVER 06/19/2010 4:37 PM GEM CARVER Narrative Resulting Agency Comment [facility] [address] ??[facility] [phone] Edward Miranda MD LAB - CHEMISTRY ORD ERABLES [facility] ACCOUNT BILL * CBC W AUTO DIFFERENTIAL (06/19/2010 11:07 AM GEM CARVER) WBC 5.3 4.0 - 10.5 x10E3/uL [facility] [...] BLOOD SPECIMEN / Unknown 06/19/2010 11:07 AM GEM CARVER 06/19/2010 4:37 PM GEM CARVER Narrative Resulting Agency Comment [facility] [address] ??[facility] [phone] Edward Miranda MD LAB - HEMATOLOGY OR DERABLES [facility] ACCOUNT BILL documented in this encounter Visit Diagnoses Diagnosis Rheumatoid arthritis(714.0) ([facility])- Primary Rheumatoid arthritis documented in this encounter
--- OUTSIDE RECORDS SUMMARY | 2024-06-28 23:35 | XMS_ITS | Encounter Summary ---
Author Organization [facility] Address [facility]6 [facility] [place] [address] [place] [address] Care Team Providers Care Associate Technician Name Role Phone William Craig MD Primary Care Provider [phone] Judie Carnes MD Unavailable Reason for Visit * Reason Onset Date Comments Holter Monitor 01/20/2024 Encounter Details Date Type Department Care Team (Late st Contact Info) Description 01/20/2024 Telephone [facility] [address] [place] [address] Judie Carnes MD [address] [place] [address] Holter Monitor Social History Tobacco [...] Info) Description 01/17/2025 8:00 AM CDT Appointment [facility] [address] [place] [address] Judie Carnes MD [address] [place] [address] 01/20/2025 10:30 AM CDT Office Visit [facility] [address] [facility] [place] [address] Judie Carnes MD [address] [place] [address] documented as of this encounter Visit Diagnoses Not on filedocumented in this encounter Care Teams Associate Technician Relationship Specialty Start Date End Date William Craig MD [address] [place] [phone] PCP - General INTERNAL MEDICINE 01/15/24 Judie Carnes MD [address] [place] [address] [place] Legal Consultant CARDIOVASCULAR DISEASE 01/15/24 documented as of this encounter
--- OUTSIDE RECORDS SUMMARY | 2024-06-28 23:35 | XMS_ITS | Encounter Summary ---
Author Organization [facility] Address [facility] [place] [address] [place] [address] Care Team Providers Care Bearing Inspector Name Role Phone William Craig MD Primary Care Provider [phone] Judie Carnes MD Unavailable Encounter Details Date [...] Info) Description 01/17/2025 8:00 AM CDT Appointment [facility] [address] [place] [address] Judie Carnes MD [address] [place] [phone] 01/20/2025 10:30 AM CDT Office Visit [facility] [address] [place] [address] Judie Carnes MD [address] [place], [place] [address]389 documented as of this encounter Visit Diagnoses Not on filedocumented in this encounter Care Teams Bearing Inspector Relationship Specialty Start Date End Date William Craig MD [address] [place] [phone] PCP - General INTERNAL MEDICINE 01/15/24 Judie Carnes MD [address] [place] [address] [place] On Air Announcer CARDIOVASCULAR DISEASE 01/15/24 documented as of this encounter
--- OUTSIDE RECORDS SUMMARY | 2024-06-28 23:35 | XMS_ITS | Encounter Summary ---
Author Organization [facility] Address [address] [place] [address]. [place] [address] [place] [address] Care Team Providers Care Baggage Security Checker Name Role Phone William Craig MD Primary Care Provider [phone] Judie Carnes MD Unavailable Encounter Details Date Type Department Care Team (Late st Contact Info) Description 01/15/2024 Abstract [facility] [address] [place] [phone] Abstract, Doc Pccl Social History Tobacco Use [...] Appointment [facility] [address] [place] [address] Judie Carnes MD [address] [place] [address] 01/20/2025 10:30 AM CDT Office Visit [facility] [address] [place] [address] Judie Carnes MD [address] [place] [address] documented as of this encounter Procedures Procedure [...] 66 Narrative Resulting Agency Comment [facility] us Kirk Pope MD LABORATORY Final Result * CBC, MANUAL DIFF (10/27/2023) WBC 6.7 HGB 11.8 HCT 37.6 PLT 187 Narrative Resulting Agency Comment [facility] us Kirk Pope MD LABORATORY Final Result documented in this encounter Visit Diagnoses Not on filedocumented in this encounter Care Teams Baggage Security Checker Relationship Specialty Start Date End Date William Craig MD [address] [place] [address] PCP - General INTERNAL MEDICINE 01/15/24 Judie Carnes MD [address] [place] [address] [place] Tea [place]ation Worker CARDIOVASCULAR DISEASE 01/15/24 documented as of this encounter
--- OUTSIDE RECORDS SUMMARY | 2024-06-28 23:35 | XMS_ITS | Clinical Summary ---
Author Organization [facility] Address [facility]6 [place] [address] [place] [address] Care Team Providers Care Program Research Specialist Name Role Phone William Craig MD Primary Care Provider [phone] Judie Carnes MD Unavailable Allergies Active Allergy [...] Care Team Description 04/06/2024 Prep for Procedure [facility] [address] [place] [address] Arnaldo Ga MD 04/05/2024 Telephone [facility] [address] [place] [address] Arnaldo Ga MD Schedule Procedure; [...] CDT Appointment [facility] [address] [place] [address] Judie Carnes MD [address] [place] [address] 01/20/2025 10:30 AM CDT Office Visit [facility] [address] [place] [address] Judie Cranes MD [address] [place] [address] Health Maintenance Due Date Last Done Comments [...] patient's age to complete this topic Insurance [facility] Care Teams Program Research Specialist Relationship Specialty Start Date End Date William Craig MD [address] [place] [address] PCP - General INTERNAL MEDICINE 01/15/24 Judie Carnes MD [address] [place] [address] [place] Color Finisher CARDIOVASCULAR DISEASE 01/15/24
--- OUTSIDE RECORDS SUMMARY | 2024-06-28 23:35 | XMS_ITS | Encounter Summary ---
Author Organization [facility] Address [facility]6 [facility] [address] [place] [address] Care Team Providers Care Panel Builder Name Role Phone William Craig MD Primary Care Provider [phone] Judie Carnes MD Unavailable Encounter Details Date Type Department Care Team (Late st Contact Info) Description 04/06/2024 Prep for Procedure [facility] [address] [place] [address] Arnaldo Ga MD [address] [place], [place] [address] Social History Tobacco Use Types Packs/Day Years [...] Info) Description 01/17/2025 8:00 AM CDT Appointment [facility] [address] [place] [address] Judie Carnes MD [address] [place], [place] [address] 01/20/2025 10:30 AM CDT [facility] [address] [place] [address] Judie Carnes MD [address] [place], [place] [phone] documented as of this encounter Visit Diagnoses Not on filedocumented in this encounter Care Teams Panel Builder Relationship Specialty Start Date End Date William Craig MD [address] [place] [phone] PCP - General INTERNAL MEDICINE 01/15/24 Judie Carnes MD [address] [place] [address] [place] Lean Consultant CARDIOVASCULAR DISEASE 01/15/24 documented as of this encounter
--- OUTSIDE RECORDS SUMMARY | 2024-06-28 23:35 | XMS_ITS | Encounter Summary ---
Author Organization [facility] Address [facility]6 [facility] [place] [address] [place] [address] Care Team Providers Care Physician Office Assistant Name Role Phone William Craig MD Primary Care Provider Judie Carnes MD Unavailable Reason for Visit * Reason Onset Date Comments Appointment Request 01/15/2024 Encounter Details Date Type Department Care Team (Late st Contact Info) Description 01/15/2024 Telephone [facility] [address] [place], [place] [address] Judie Carnes MD [address] [place] [address] Appointment Request Social History Tobacco [...] [place] calendar Referral from PCP Dr. Craig [phone] for moderate mitral stenosis and recent CVA. [...] refer this patient to Dr. Carnes in [place] for mitral disease with moderate stenosis and cerebral vascular disease with recent CVA. Appointment scheduled first available on 01/18/24 at 12:00 pm at [facility] with Dr. Carnes per Tomasa's request.Tomasa will inform patient of appointment and fax records to [phone]. She v/u and had no further questions. INTAKEReferral Source: Phone Call Insurance: [employer] Caller: PCP Caller Phone Number: In [facility] Symptoms/Consult for: Mitral disease with moderate stenosis and cerebral vascular disease with recent CVA Request Records-fax to [phone]: Yes Current [facility] Patient: No Recent hospitalizations: No Ever seen a pairer in the past: No Requested appt timeframe: First available with Dr. Carnes in [place] Recent testing/labs: Requested Appt Date/time: 01/18/24 at 12:00 pm [facility] Provider[facility] offered: Pending Letter/WS mailed/NA: No due to time frame Care Team: Updated documented in this encounter Plan of Treatment Upcoming Encounters Date Type Department Care Team (Late st Contact Info) Description 01/17/2025 8:00 AM CDT Appointment [facility] [address] [place] [address] Judie Carnes MD [address] [place] [address] 01/20/2025 10:30 AM CDT Office Visit [facility] [address] [place] [address] Judie Carnes MD [address] [place] [address] documented as of this encounter Visit Diagnoses Not on filedocumented in this encounter Care Teams Physician Office Assistant Relationship Specialty Start Date End Date William Craig MD [address] [place] [address] PCP - General INTERNAL MEDICINE 01/15/24 Judie Carnes MD [address] [place] [address] [place] Seafood Processor CARDIOVASCULAR DISEASE 01/15/24 documented as of this encounter
--- OUTSIDE RECORDS SUMMARY | 2024-06-28 23:35 | XMS_ITS | Encounter Summary ---
Author Organization [facility] Address [address] [place] [address] Care Team Providers Care Allergy Specialist Name Role Phone Unavailable Primary Care Provider Unavailabl e Encounter Details Date Type Department Care Team (Late st Contact Info) Description 09/05/2008 Orders Only [facility] Medical [facility] - Family Medicine [address] [place] [address] Edward Miranda MD [address] [place] [address] [phone] Social History Tobacco Use Types Packs/Day Years [...] CBC W AUTO DIFFERENTIAL 09/05/2008 3:02 PM LOAD HAUL DUMP OPERATOR COMPREHENSIVE METABOLIC PANEL 09/05/2008 3:02 PM LOAD HAUL DUMP OPERATOR documented in this encounter Results * COMPREHENSIVE METABOLIC PANEL (09/05/2008 3:02 PM LOAD HAUL DUMP OPERATOR) Glucose 96 65 - 99 mg/dL [facility] [...] IU/L [facility] INSURANCE BILL 09/05/2008 3:02 PM LOAD HAUL DUMP OPERATOR 09/05/2008 10:36 PM LOAD HAUL DUMP OPERATOR Narrative [facility] INSURANCE BILL - 09/06/2008 7:28 AM LOAD HAUL DUMP OPERATOR [phone]. Resulting Agency Comment [facility] [address] ??[facility] [phone] Edward Miranda MD LAB - CHEMISTRY ORD ERABLES [facility] INSURANCE BILL * CBC W AUTO DIFFERENTIAL (09/05/2008 3:02 PM LOAD HAUL DUMP OPERATOR) WBC 6.8 4.0 - 10.5 x10E3/uL [facility] [...] AVAIL. [facility] INSURANCE BILL 09/05/2008 3:02 PM LOAD HAUL DUMP OPERATOR 09/05/2008 10:36 PM LOAD HAUL DUMP OPERATOR Narrative [facility] INSURANCE BILL - 09/06/2008 7:28 AM [facility] [phone]. Additional Result Information HEMATOLOGY COMMENTS: ??BLOOD,URINE ([facility]): RESULT NOT AVAILABLE Resulting Agency Comment [facility] [address] ??[facility] [phone] Edward Miranda MD LAB - HEMATOLOGY OR DERABLES [facility] INSURANCE BILL documented in this encounter Visit Diagnoses Not on filedocumented in this encounter
--- OUTSIDE RECORDS SUMMARY | 2024-06-28 23:35 | XMS_ITS | Encounter Summary ---
Author Organization [facility] Address Critical access hospital6 [facility] [place] [address] [place] [address] Care Team Providers Care Cattle Driver Name Role Phone William Craig MD Primary Care Provider [phone] Judie Carnes MD Unavailable Reason for Visit * Reason Onset Date Comments Appointment Request 03/08/2024 Encounter Details Date Type Department Care Team (Late st Contact Info) Description 03/08/2024 Telephone [facility] [address] [place] [address] Judie Carnes MD [address] [place] [address] Appointment Request Social History Tobacco [...] to scheduled EP consult. Appt scheduled in [place] tomorrow 03/09/24 at 1030. Patient confirmed. * Minh Pablo LPN - 03/08/2024 9:00 AM CDT Please schedule an appt for pt to see Dr. Holland for poss loop recorder. Please call pt's on his phone number ending in [phone]. See Dr Carnes's last clinic note for more info. Thanks! documented in this encounter Plan of Treatment Upcoming Encounters Date Type Department Care Team (Late st Contact Info) Description 01/17/2025 8:00 AM CDT Appointment [address] [place] [address] Judie Carnes MD [address] [place] [address] 01/20/2025 10:30 AM CDT Office Visit [facility] [address] [facility] [place] [address] Judie Carnes MD [address] [place] [address] documented as of this encounter Visit Diagnoses Not on filedocumented in this encounter Care Teams Cattle Driver Relationship Specialty Start Date End Date William Craig MD [address] [place] [address] PCP - General INTERNAL MEDICINE 01/15/24 Judie Carnes MD [address] [place] [address] [place] Talent Management Specialist CARDIOVASCULAR DISEASE 01/15/24 documented as of this encounter
--- OUTSIDE RECORDS SUMMARY | 2024-06-28 23:35 | XMS_ITS | Encounter Summary ---
Author Organization [facility] Address [address] [facility] [place] [address] Care Team Providers Care Wood Preparation Supervisor Name Role Phone Unavailable Primary Care Provider Unavailabl e Reason for Visit * Reason Onset Date Comments MEDICATION REFILL 03/22/2009 Encounter Details Date Type Department Care Team (Late st Contact Info) Description 03/22/2009 Refill [facility] Medical [facility] - Rheumatology [address] [place] [address] Edward Miranda MD [address] [place] [address] MEDICATION REFILL Social History Tobacco Use Types [...]
--- OUTSIDE RECORDS SUMMARY | 2024-06-28 23:35 | XMS_ITS | Encounter Summary ---
Author Organization [facility] Address [address] [place] [address] Care Team Providers Care Public Information Specialist Name Role Phone Unavailable Primary Care Provider Unavailabl e Encounter Details Date Type Department Care Team (Late st Contact Info) Description 06/27/2009 Orders Only [facility] - Rheumatology [address] [place] [address] Edward Miranda MD [address] [place] [address] [phone] Social History Tobacco Use Types Packs/Day Years [...] Comments ERYTHROCYTE SEDIMENTATION RATE 06/27/2009 10:46 AM ACCOUNTS PAYABLE SUPERVISOR documented in this encounter Results * SED RATE WESTERGREN AUTO (06/27/2009 10:46 AM ACCOUNTS PAYABLE SUPERVISOR) Erythrocyte Sedimentation Rate Westergren 5 0 - 20 mm/hr [facility] ACCOUNT BILL 06/27/2009 10:4 6 AM ACCOUNTS PAYABLE SUPERVISOR 06/27/2009 5:42 PM ACCOUNTS PAYABLE SUPERVISOR Narrative Resulting Agency Comment [facility] [address] ??[facility] [id number] Edward Miranda MD LAB - HEMATOLOGY OR DERABLES [facility] ACCOUNT BILL documented in this encounter Visit Diagnoses Not on filedocumented in this encounter
--- OUTSIDE RECORDS SUMMARY | 2024-06-28 23:35 | XMS_ITS | Encounter Summary ---
Author Organization [facility] Address [facility]6 [facility] [place] [address] [place] [address] Care Team Providers Care Medical Records Technician Name Role Phone William Craig MD Primary Care Provider [phone] Judie Rowell MD Unavailable Encounter Details Date Type Department Care Team (Latest Contact Info) Description 01/18/2024 11:31 AM CDT - 01/18/2024 11:59 PM T Hospital Encounter [facility] [address] [place] [address] [place] [address] Judie Rowell MD [address] [place], [place] [address] Discharge Disposition: Home or Self Care (Routine [...] Info) Description 01/17/2025 8:00 AM CDT Appointment [facility] [address] [place] [address] Judie Rowell MD [address] [place], [place] [phone] 01/20/2025 10:30 AM CDT Office Visit [facility] [address] [place] [address] Judie Rowell MD [address] [place], [place] [phone] documented as of this encounter Procedures Procedure Name Priority Date/Time Associated Diagnosis Comments ECG 12-LEAD Routine 01/18/2024 11:39 AM CDT Mitral valve disease documented in this encounter Results * ECG 12 lead (HOSPITAL PERFORMED ONLY) (01/18/2024 11:39 AM CDT) 01/18/2024 11:3 9 AM CDT Narrative [facility] RAD - 01/18/2024 6:52 PM CDT ? [facility] ?[address] [place] [place], [place] ??[address] ? Test Date: ?2024-01-18 Pat Name: ? SENIA RUTH ?Department: ?? 3 ? Room: ? Gender: ? Female ? Bank Reconciliator: ?? : ?1960 ? Requested By: JUDIE ROWELL Order Number: [id number] ? Reading MD: ?? Judie Rowell ? Measurements Intervals ?[place] ? Rate: ? 63 ? P: ?49 WI: ? 159 ?QRS: ?24 QRSD: ? 82 ? T: ?69 QT: ? 400 ? QTc: ?411 ? Interpretive Statements SINUS RHYTHM POSSIBLE LEFT ATRIAL ENLARGEMENT ??[-0.1mV P WAVE IN V1/V2] Procedure Note Judie Rowell MD - 01/18/[address] [place] [address] Test Date: 2024-01-18 Pat Name: SENIA RUTH Department: 3 Room: Gender: Female Bank Reconciliator: : 1960 Requested By: JUDIE ROWELL Order Number: [id number] Reading MD: Judie Rowell Measurements Intervals [place] Rate: 63 P: 49 WI: 159 QRS: 24 QRSD: 82 T: 69 QT: 400 QTc: 411 Interpretive Statements SINUS RHYTHM POSSIBLE LEFT ATRIAL ENLARGEMENT [-0.1mV P WAVE IN V1/V2] us Judie Rowell MD ECG ORDERABLES Final Result [facility] documented in this encounter Visit Diagnoses Diagnosis Mitral valve disease Other and unspecified mitral valve diseases documented in this encounter Care Teams Medical Records Technician Relationship Specialty Start Date End Date William Craig MD [address] [place] [address] PCP - General INTERNAL MEDICINE 01/15/24 Judie Rowell MD [address] [place] [address] [place] Hand Thermal Cutter CARDIOVASCULAR DISEASE 01/15/24 documented as of this encounter
--- OUTSIDE RECORDS SUMMARY | 2024-06-28 23:35 | XMS_ITS | Encounter Summary ---
Author Organization [facility] Address [facility]6 [facility] [address] [place] [address] Care Team Providers Care Shop Coordinator Name Role Phone William Craig MD Primary Care Provider [phone] Judie Carnes MD Unavailable Reason for Referral * Imaging (Routine) - Pending Review Specialty Diagnoses / Procedures Referred By Contac t Referred To Contact RADIOLOGY Diagnoses Mitral valve stenosis, unspecified etiology Cerebrovascular accident (CVA) due to other mechanism ([facility]) Essential (primary) hypertension Procedures USE ECHOCARDIOGRAM Judie Carnes MD [address] [place] [address] Phone: tel: fax: Referral ID Status Reason Start Date Expiration Date V isits Requested Visits Authorized [id number] Pending Review 01/18/2024 02/17/2025 1 1 * (Routine) - New Request Specialty Diagnoses / Procedures Referred By Contac t Referred To Contact Diagnoses Mitral valve stenosis, unspecified etiology Cerebrovascular accident (CVA) due to other mechanism ([facility]) Essential (primary) hypertension Procedures CLINIC - [address] [facility] - Today Judie Carnes MD [address] [place] [address] Phone: tel: fax: Referral ID Status Reason Start Date Expiration Date V isits Requested Visits Authorized [id number] New Request 01/18/2024 01/17/2025 1 1 Reason for Visit * Reason Comments Heart Problem Encounter Details Date Type Department Care Team (Late st Contact Info) Description 01/18/2024 12:00 PM CDT Office Visit [facility] [place] [address] Judie Carnes MD [address] [place] [address] Heart Problem Social History Tobacco Use Types [...] History: Diagnosis Date Bilateral carotid bruits Diabetes ([facility]/HCC HHS/HCC) Type 2 Dizziness and giddiness [...] Appointment [facility] [address] [place] [address] Judie Carnes MD [address] [place] [address] 01/20/2025 10:30 AM CDT Office Visit [facility] [place] [address] Judie Carnes MD [address] [place], [place] [address] Scheduled Orders Name Type Priority Associated Diagnoses Orde r Schedule CLINIC - [address] [facility] - Today EKG-NonRad Routine Mitral valve stenosis, unspecified etiology Cerebrovascular accident (CVA) due to other mechanism ([facility]) Essential (primary) hypertension Expected: 01/18/2024, Expires: 01/17/2025 USE ECHOCARDIOGRAM ECHO Routine Mitral valve stenosis, unspecified etiology Cerebrovascular accident (CVA) due to other mechanism ([facility]) Essential (primary) hypertension Expected: 01/17/2025, Expires: 07/20/2025 documented as of this encounter Visit Diagnoses Diagnosis Mitral valve stenosis, unspecified etiology- Primary Cerebrovascular accident (CVA) due to other mechanism ([facility]) Essential (primary) hypertension Unspecified essential hypertension Hyperlipidemia, mixed Mixed hyperlipidemia documented in this encounter Care Teams Shop Coordinator Relationship Specialty Start Date End Date William Craig MD [address] [place] [phone] PCP - General INTERNAL MEDICINE 01/15/24 Judie Carnes MD [address] [place] [address] [place] Assembler Molded Frames CARDIOVASCULAR DISEASE 01/15/24 documented as of this encounter
--- OUTSIDE RECORDS SUMMARY | 2024-06-28 23:35 | XMS_ITS | Encounter Summary ---
Author Organization [facility] Address [facility] [place] [address] [place] [address] Care Team Providers Care Dental Laboratory Assistant Name Role Phone William Craig MD Primary Care Provider [phone] Judie Carnes MD Unavailable Encounter Details Date Type Department Care Team (Late st Contact Info) Description 01/15/2024 Scan [facility] [address] [place] [phone] Scanned, Doc Pccl Social History Tobacco Use [...] Info) Description 01/17/2025 8:00 AM CDT Appointment [facility] [address] [place] [address] Judie Carnes MD [address] [place] [phone] 01/20/2025 10:30 AM CDT Office Visit [facility] [address] [place] [address] Judie Carnes MD [address] [place] [address] documented as of this encounter Visit Diagnoses Not on filedocumented in this encounter Care Teams Dental Laboratory Assistant Relationship Specialty Start Date End Date William Craig MD [address] [place] [phone] PCP - General INTERNAL MEDICINE 01/15/24 Judie Carnes MD [address] [place] [address] [place] Licensed Mortician CARDIOVASCULAR DISEASE 01/15/24 documented as of this encounter
--- OUTSIDE RECORDS SUMMARY | 2024-06-28 23:35 | XMS_ITS | Encounter Summary ---
Author Organization [facility] Address [facility]6 [facility] [place] [address] [place] [address] Care Team Providers Care Pc Maintenance Technician Name Role Phone William Craig MD Primary Care Provider [phone] Judie Carnes MD Unavailable Encounter Details Date [...] Info) Description 01/17/2025 8:00 AM CDT Appointment [facility] [address] [place] [address] Judie Carnes MD [address] [place] [phone] 01/20/2025 10:30 AM CDT Office Visit [facility] [address] [place] [phone] Judie Carnes MD [address] [place], [place] [phone] documented as of this encounter Visit Diagnoses Not on filedocumented in this encounter Care Teams Pc Maintenance Technician Relationship Specialty Start Date End Date William Craig MD [address] [place] [phone] PCP - General INTERNAL MEDICINE 01/15/24 Judie Carnes MD [address] [place] [address] Kimmell Stiff Leg Derrick Operator CARDIOVASCULAR DISEASE 01/15/24 documented as of this encounter
--- OUTSIDE RECORDS SUMMARY | 2024-06-28 23:35 | XMS_ITS | Encounter Summary ---
Author Organization [facility] Address [facility]6 [facility] [place] [place] [address] [place] [address] Care Team Providers Care Network Relations Consultant Name Role Phone William Craig MD Primary Care Provider [phone] Judie Carnes MD Unavailable Reason for Visit * Reason Comments Echo (SCAN) Encounter Details Date Type Department Care Team (Late st Contact Info) Description 01/07/2024 Scan [facility] [address] [place] [address] Scanned, Doc Pccl Echo (SCAN) [...] Appointment [facility] [address] [address] Judie Carnes MD [address] [place] [address] [phone] 01/20/2025 10:30 AM CDT Office Visit [facility] [address] [phone] Judie Carnes MD [address] [place], [place] [phone] documented as of this encounter Procedures Procedure Name Priority Date/Time Associated Diagnosis Comments ECHO GENERIC (SCAN ORDER) Routine 01/07/2024 12:00 AM CDT documented in this encounter Results * ECHO (01/07/2024 12:00 AM CDT) Anatomical Region Laterality Modality Other 01/07/2024 us Doc Pccl Scanned SCANNING Final Result documented in this encounter Visit Diagnoses Not on filedocumented in this encounter Care Teams Network Relations Consultant Relationship Specialty Start Date End Date William Craig MD [address] [place] [address] PCP - General INTERNAL MEDICINE 01/15/24 Judie Carnes MD [address] [place] [address] [place] Mig Tig Welder CARDIOVASCULAR DISEASE 01/15/24 documented as of this encounter
--- OUTSIDE RECORDS SUMMARY | 2024-06-28 23:35 | XMS_ITS | Encounter Summary ---
Author Organization [facility] Health Address [address] [facility] [place] [address] Care Team Providers Care Special Projects Coordinator Name Role Phone Unavailable Primary Care Provider Unavailabl e Encounter Details Date Type Department Care Team (Late st Contact Info) Description 06/28/2008 Orders Only [facility] - Family Medicine [address] [place] [address] Edward Miranda MD [address] [place] [address] [phone] Social History Tobacco Use Types Packs/Day Years [...] Comments C-REACTIVE PROTEIN 06/28/2008 10 :34 AM PORCELAIN ENAMELER HEMOGLOBIN A1C 06/28/2008 10:34 AM PORCELAIN ENAMELER ERYTHROCYTE SEDIMENTATION RATE 06/28/2008 10:34 AM PORCELAIN ENAMELER CBC W AUTO DIFFERENTIAL 06/28/2008 10:34 AM PORCELAIN ENAMELER COMPREHENSIVE METABOLIC PANEL 06/28/2008 10:34 AM PORCELAIN ENAMELER documented in this encounter Results * C-REACTIVE PROTEIN (06/28/2008 10:34 AM PORCELAIN ENAMELER) C-Reactive Protein 2.5 0.0 - 4.9 mg/L [facility] ACCOUNT BILL 06/28/2008 10:3 4 AM PORCELAIN ENAMELER 06/28/2008 5:56 PM PORCELAIN ENAMELER Narrative Resulting Agency Comment [facility] [address] ??[place] [phone] Edward Miranda MD LAB - CHEMISTRY ORD ERABLES [facility] ACCOUNT BILL * SED RATE WESTERGREN AUTO (06/28/2008 10:34 AM PORCELAIN ENAMELER) Erythrocyte Sedimentation Rate Westergren 7 0 - 20 mm/hr [facility] ACCOUNT BILL 06/28/2008 10:3 4 AM PORCELAIN ENAMELER 06/28/2008 5:56 PM PORCELAIN ENAMELER Narrative Resulting Agency Comment [facility] [place] [address] ??[place] [phone] Edward Miranda MD LAB - HEMATOLOGY OR DERABLES Performing Organization Address City/[facility]/ZIP Co de Phone Number [facility] ACCOUNT BILL * HEMOGLOBIN A1C (06/28/2008 10:34 AM PORCELAIN ENAMELER) Hemoglobin A1c 6.2 <7.0 % [facility] ACCOUNT BILL Comment: ?Diabetic Adult ?<7.0 ?Healthy Adult ?4.8 - 5.9 ?(DCCT/NGSP) ?[place] [employer]'s Summary of Glycemic ?Recommendations for Adults with Diabetes: ?Hemoglobin A1c <7.0%. More stringent glycemic goals ?(A1c <6.0%) may further reduce complications at the ?cost of increased risk of hypoglycemia. 06/28/2008 10:3 4 AM PORCELAIN ENAMELER 06/28/2008 5:56 PM PORCELAIN ENAMELER Narrative Resulting Agency Comment [facility] [address] [facility] ??[facility] [phone] Edward Miranda MD LAB - CHEMISTRY ORD ERABLES [facility] ACCOUNT BILL * (ABNORMAL) COMPREHENSIVE METABOLIC PANEL (06/28/2008 10:34 AM PORCELAIN ENAMELER) Glucose 117(H) 65 - 99 mg/dL [facility] [...] [facility] ACCOUNT BILL 06/28/2008 10:3 4 AM PORCELAIN ENAMELER 06/28/2008 5:56 PM PORCELAIN ENAMELER Narrative Resulting Agency Comment [facility] [address] ??[facility] [phone] Edward Miranda MD LAB - CHEMISTRY ORD ERABLES [facility] ACCOUNT BILL * CBC W AUTO DIFFERENTIAL (06/28/2008 10:34 AM PORCELAIN ENAMELER) WBC 5.2 4.0 - 10.5 x10E3/uL [facility] [...] [facility] ACCOUNT BILL 06/28/2008 10:3 4 AM PORCELAIN ENAMELER 06/28/2008 5:56 PM PORCELAIN ENAMELER Narrative [facility] ACCOUNT BILL - 06/29/2008 9:31 AM PORCELAIN ENAMELER Additional Result Information HEMATOLOGY COMMENTS: ??BLOOD,URINE ([facility]): RESULT NOT AVAILABLE Resulting Agency Comment [facility] [address] ??[facility] [phone] Edward Miranda MD LAB - HEMATOLOGY OR DERABLES [facility] ACCOUNT BILL documented in this encounter Visit Diagnoses Not on filedocumented in this encounter
--- OUTSIDE RECORDS SUMMARY | 2024-06-28 23:35 | XMS_ITS | Encounter Summary ---
Author Organization [facility] Health Address [address] [place] [address] [place] [address] Care Team Providers Care Bilingual Branch Manager Name Role Phone Unavailable Primary Care Provider Unavailabl e Reason for Visit * Reason Comments Follow-up ra General hand stiffness Encounter Details Date Type Department Care Team (Late st Contact Info) Description 11/06/2010 9:45 AM CDT Office Visit [facility] - Rheumatology [address] [place] [address] Edward Miranda MD [address] [place], [place] [phone] Rheumatoid arthritis (HCC) (Primary Dx); Screening cholesterol [...] MD - 11/06/2010 10:32 AM CDT Subjective: Senia Ruth 49 y.o. female Chief Complaint Patient presents with ??? Follow-up ra ??? General hand stiffness Current outpatient prescriptions ordered prior to encounter Medication Sig Dispense Refill ??? Methotrexate, Anti-Rheumatic, 2.5 MG TABS Take 10 mg by mouth every 7 days. 16 Tab 12 ??? NASONEX 50 MCG/ACT SUSP [place] 1 [place] into each nostril daily. Prn in the [...] PM CDT Narrative Resulting Agency Comment [facility] [address] ??[facility] [phone] Edward Miranda MD LAB - CHEMISTRY ORD [...] PM CDT Narrative Resulting Agency Comment [facility] [address] ??[facility] [phone] Edward Miranda MD LAB - CHEMISTRY ORD ERABLES Performing Organization Address City/[facility]/ZIP Co de Phone Number [facility] ACCOUNT BILL * SED RATE WESTERGREN AUTO (11/06/2010 10:13 AM CDT) Erythrocyte Sedimentation Rate Westergren 6 0 - 20 mm/hr [facility] ACCOUNT BILL BLOOD SPECIMEN / Unknown 11/06/2010 10:13 AM CDT 11/06/2010 5:53 PM CDT Narrative Resulting Agency Comment [facility] [address] ??[facility] [phone] Edward Miranda MD LAB - HEMATOLOGY OR [...] PM CDT Narrative Resulting Agency Comment [facility] [address] ??[facility] [phone] Edward Miranda MD LAB - CHEMISTRY ORD [...] PM CDT Narrative Resulting Agency Comment [facility] [address] ??[facility] [phone] Edward Miranda MD LAB - CHEMISTRY ORD [...] PM CDT Narrative Resulting Agency Comment [facility] [address] ??[facility] [phone] Edward Miranda MD LAB - HEMATOLOGY OR DERABLES [facility] ACCOUNT BILL documented in this encounter Visit Diagnoses Diagnosis Rheumatoid arthritis(714.0) (HCC)- Primary Rheumatoid arthritis Screening cholesterol level Screening for lipoid disorders Vitamin d deficiency Unspecified vitamin D deficiency documented in this encounter
--- OUTSIDE RECORDS SUMMARY | 2024-06-28 23:35 | XMS_ITS | Encounter Summary ---
Author Organization [facility] Address [facility]6 [place] [address] [place] [address] Care Team Providers Care Ice Guard Tester Name Role Phone William Craig MD Primary Care Provider [phone] Judie Rowell MD Unavailable Encounter Details Date Type Department Care Team (Late st Contact Info) Description 01/18/2024 Orders Only [facility] [address] [place], [place] [address] Judie Rwoell MD [address] [place], [place] [phone] Social History Tobacco Use Types Packs/Day Years [...] Info) Description 01/17/2025 8:00 AM CDT Appointment [facility] [address] [place] [address] Judie Rowell MD [address] [place], [place] [address] 01/20/2025 10:30 AM CDT Office Visit [facility] [address] [place] [phone] Judie Rowell MD [address] [place], [place] [address] documented as of this encounter Results * ECG 12 lead (HOSPITAL PERFORMED ONLY) (01/18/2024 11:39 AM CDT) 01/18/2024 11:3 9 AM CDT Narrative [facility] [place] [facility] - 01/18/2024 6:52 PM CDT ? [facility] ?[address] [place], [place] ??[address] ? Test Date: ?2024-01-18 Pat Name: ? SENIA RUTH ?Department: ?? 3 ? Room: ? Gender: ? Female ? Flosser: ?? : ?1960 ? Requested By: JUDIE ROWELL Order Number: [id number] ? Reading MD: ?? Judie Rowell ? Measurements Intervals ?[place] ? Rate: ? 63 ? P: ?49 MS: ? 159 ?QRS: ?24 QRSD: ? 82 ? T: ?69 QT: ? 400 ? QTc: ?411 ? Interpretive Statements SINUS RHYTHM POSSIBLE LEFT ATRIAL ENLARGEMENT ??[-0.1mV P WAVE IN V1/V2] Procedure Note Judie Rowell MD - 01/18/[address] [place] [address] Test Date: 2024-01-18 Pat Name: SENIA RUTH Department: 3 Room: Gender: Female Flosser: : 1960 Requested By: JUDIE ROWELL Order Number: [id number] Reading MD: Judie Rowell Measurements Intervals [place] Rate: 63 P: 49 MS: 159 QRS: 24 QRSD: 82 T: 69 QT: 400 QTc: 411 Interpretive Statements SINUS RHYTHM POSSIBLE LEFT ATRIAL ENLARGEMENT [-0.1mV P WAVE IN V1/V2] us Judie Rowell MD ECG ORDERABLES Final Result [facility] documented in this encounter Visit Diagnoses Diagnosis Mitral valve disease- Primary Other and unspecified mitral valve diseases Mitral valve disease Other and unspecified mitral valve diseases documented in this encounter Care Teams Ice Guard Tester Relationship Specialty Start Date End Date William Craig MD [address] [place] [address] PCP - General INTERNAL MEDICINE 01/15/24 Judie Rowell MD [address] [place] [address] [place] Embroidery Designer CARDIOVASCULAR DISEASE 01/15/24 documented as of this encounter
--- OUTSIDE RECORDS SUMMARY | 2024-06-28 23:35 | XMS_ITS | Encounter Summary ---
Author Organization [facility] Address [facility]6 [place] [address] [place] [address] Care Team Providers Care Metal Box Maker Name Role Phone William Craig MD Primary Care Provider [phone] Judie Carnes MD Unavailable Encounter Details Date Type Department Care Team (Late st Contact Info) Description 03/08/2024 Orders Only [facility] [address] [place] [phone] Arnaldo Humphrey MD [address] [place] [address] Social History Tobacco Use Types [...] Info) Description 01/17/2025 8:00 AM CDT Appointment [facility] [address] [place] [address] Judie Carnes MD 9 [place], [place] [phone] 01/20/2025 10:30 AM CDT Office Visit [facility] [address] [place] [phone] Judie Carnes MD [address] [place] [address] documented as of this encounter Results * ECG 12 lead (HOSPITAL PERFORMED ONLY) (03/09/2024 9:28 AM CDT) 03/09/2024 9:28 AM CDT Narrative [facility] - 03/11/2024 2:54 PM CDT ? [facility] ?[address] [place] ??[address] ? Test Date: ?2024-03-09 Pat Name: ? SENIA RUTH ?Department: ?? 3 ? Room: ? Gender: ? Female ? Interior Design Professional: ?? : ?1960 ? Requested By: ARNALDO HUMPHREY Order Number: [id number] ? Reading MD: ?? Arnaldo Humphrey ? Measurements Intervals ?[place] ? Rate: ? 71 ? P: ?65 UT: ? 156 ?QRS: ?75 QRSD: ? 82 ? T: ?75 QT: ? 397 ? QTc: ?433 ? Interpretive Statements SINUS RHYTHM Procedure Note Arnaldo Humphrey MD - 03/11/[address] [place] [address] Test Date: 2024-03-09 Pat Name: SENIA RUTH Department: 3 Room: Gender: Female Interior Design Professional: : 1960 Requested By: ARNALDO HUMPHREY Order Number: [id number] Haroldo MD: Arnaldo Humphrey Measurements Intervals [place] Rate: 71 P: 65 UT: 156 QRS: 75 QRSD: 82 T: 75 QT: 397 QTc: 433 Interpretive Statements SINUS RHYTHM us Arnaldo Humphrey MD ECG ORDERABLES Final Res ult [facility] documented in this encounter Visit Diagnoses Diagnosis Encounter for consultation- Primary Unspecified reason for consultation Mitral valve stenosis, unspecified etiology Hx of completed stroke- Primary Transient ischemic attack (TIA), and cerebral infarction without residual deficits documented in this encounter Care Teams Metal Box Maker Relationship Specialty Start Date End Date William Craig MD [address] [place] [address] PCP - General INTERNAL MEDICINE 01/15/24 Judie Carnes MD [address] [place] [address] [place] Computer [employer] Professor CARDIOVASCULAR DISEASE 01/15/24 documented as of this encounter
--- OUTSIDE RECORDS SUMMARY | 2024-06-28 23:35 | XMS_ITS | Encounter Summary ---
Author Organization [facility] Health Address [address] [place] [address] Care Team Providers Care Television Installer Name Role Phone Unavailable Primary Care Provider Unavailabl e Reason for Visit * Reason Onset Date Comments Request Lab Order 12/27/2009 Encounter Details Date Type Department Care Team (Late st Contact Info) Description 12/27/2009 Telephone [facility] - Rheumatology [address] [place] [address] [phone] Edward Miranda MD [address] [place] [address] Request Lab Order Social History Tobacco Use [...] standing order; CBC, CMP faxed to [facility] [phone] * Telephone Encounter - Nicci Kruger - [...] back in 10/27/08. Please fax over to [phone] documented in this encounter Plan of Treatment Scheduled Orders Name Type Priority Associated Diagnoses Orde r Schedule CBC W AUTO DIFFERENTIAL Lab Routine Rheumatoid Arthritis (HCC) Ordered: 12/27/2009 COMPREHENSIVE METABOLIC PANEL Lab Routine Rheumatoid Arthritis (HCC) Ordered: 12/27/2009 documented as of this encounter Visit Diagnoses Diagnosis Rheumatoid arthritis(714.0) ([facility])- Primary Rheumatoid arthritis documented in this encounter
--- OUTSIDE RECORDS SUMMARY | 2024-06-28 23:35 | XMS_ITS | Encounter Summary ---
Author Organization [facility] Health Address [address] [facility] [place] [address] Care Team Providers Care Cutting Machine Fixer Name Role Phone Unavailable Primary Care Provider Unavailabl e Encounter Details Date Type Department Care Team (Late st Contact Info) Description 01/02/2011 Orders Only [facility] - Rheumatology [address] [place] [address] [phone] Edward Miranda MD [address] [place] [address] [phone] Social History Tobacco Use Types Packs/Day Years [...] CDT ERYTHROCYTE SEDIMENTATION RATE 09/08/2011 1:35 PM SPORTS EQUIPMENT RACKER CBC W AUTO DIFFERENTIAL 09/08/2011 1:35 PM SPORTS EQUIPMENT RACKER COMPREHENSIVE METABOLIC PANEL 09/08/2011 1:35 PM SPORTS EQUIPMENT RACKER ERYTHROCYTE SEDIMENTATION RATE 05/07/2011 1:43 PM CDT [...] of this report has been sent to [phone]. Resulting Agency Comment [facility] [address] ??[facility] [phone] Edward Miranda MD LAB - HEMATOLOGY OR [...] of this report has been sent to [phone]. Resulting Agency Comment [address] ??[facility] [phone] Edward Miranda MD LAB - CHEMISTRY ORD ERABLES [facility] INSURANCE BILL * CBC W AUTO DIFFERENTIAL (01/01/2012 1:42 PM CDT) [facility] WBC 4.9 4.0 - 10.5 x10E3/uL [facility] [...] of this report has been sent to [phone]. Resulting Agency Comment [facility] [place] [address] ??[facility] [phone] Edward Miranda MD LAB - HEMATOLOGY OR DERABLES [facility] INSURANCE BILL * SED RATE WESTERGREN AUTO (09/08/2011 1:35 PM SPORTS EQUIPMENT RACKER) Erythrocyte Sedimentation Rate Westergren 7 0 - 40 mm/hr [facility] INSURANCE BILL 09/08/2011 1:35 PM SPORTS EQUIPMENT RACKER 09/08/2011 5:36 PM SPORTS EQUIPMENT RACKER Narrative Resulting Agency [facility] [address] [facility] ??[facility] [phone] Edward Miranda MD LAB - HEMATOLOGY OR DERABLES [facility] INSURANCE BILL * (ABNORMAL) COMPREHENSIVE METABOLIC PANEL (09/08/2011 1:35 PM SPORTS EQUIPMENT RACKER) Glucose 111(H) 65 - 99 mg/dL [facility] [...] IU/L [facility] INSURANCE BILL 09/08/2011 1:35 PM SPORTS EQUIPMENT RACKER 09/08/2011 5:36 PM SPORTS EQUIPMENT RACKER Narrative Resulting Agency Comment [facility] [address] ??[facility] [phone] Edward Miranda MD LAB - CHEMISTRY ORD ERABLES [facility] INSURANCE BILL * CBC W AUTO DIFFERENTIAL (09/08/2011 1:35 PM SPORTS EQUIPMENT RACKER) WBC 6.2 4.0 - 10.5 x10E3/uL [facility] [...] test is not needed 09/08/2011 1:35 PM SPORTS EQUIPMENT RACKER 09/08/2011 5:36 PM SPORTS EQUIPMENT RACKER Narrative Resulting Agency Comment [facility] ??[facility] [phone] Edward Miranda MD LAB - HEMATOLOGY OR DERABLES Performing Organization Address City/[facility] Co de Phone Number [facility] INSURANCE BILL * SED RATE WESTERGREN AUTO (05/07/2011 1:43 PM CDT) Erythrocyte Sedimentation Rate Westergren 5 0 - 56 mm/hr [facility] INSURANCE BILL 05/07/2011 1:43 PM CDT 05/07/2011 5:37 PM CDT Narrative Resulting Agency Comment [facility] ??[facility] [id number] Edward Miranda MD LAB - HEMATOLOGY OR [...] CDT Narrative Resulting Agency Comment [facility] [address] ??[facility] [phone] Edward Miranda MD LAB - CHEMISTRY ORD [...] CDT Narrative Resulting Agency Comment [facility] [address] ??[facility] [phone] Edward Miranda MD LAB - HEMATOLOGY OR DERABLES [facility] INSURANCE BILL * SED RATE WESTERGREN AUTO (01/02/2011 2:04 PM CDT) Erythrocyte Sedimentation Rate Westergren 6 0 - 56 mm/hr [facility] INSURANCE BILL Comment:Please note refere nce interval change 01/02/2011 2:04 PM CDT 01/02/2011 5:39 PM CDT Narrative Resulting Agency Comment [facility] [address] [phone] Edward Miranda MD LAB - HEMATOLOGY OR [...] PM CDT Narrative Resulting Agency Comment [facility] [address] [phone] Edward Miranda MD LAB - HEMATOLOGY OR [...] PM CDT Narrative Resulting Agency Comment [facility] [address] [phone] Edward Miranda MD LAB - CHEMISTRY ORD ERABLES [facility] INSURANCE BILL documented in this encounter Visit Diagnoses Not on filedocumented in this encounter
--- OUTSIDE RECORDS SUMMARY | 2024-06-28 23:35 | XMS_ITS | Encounter Summary ---
Author Organization [facility] Health Address [address] [facility] [place] [address] Care Team Providers Care Special Services Coordinator Name Role Phone Unavailable Primary Care Provider Unavailabl e Reason for Visit * Reason Comments Follow-up ra, back pain Encounter Details Date Type Department Care Team (Late st Contact Info) Description 10/24/2009 10:15 AM CDT Office Visit [facility] - Rheumatology [address] [place] [phone] Edward Miranda MD [address] [place], [place] [phone] Rheumatoid Arthritis (HCC) (Primary Dx) Social History [...] 16 12 ??? NASONEX 50 MCG/ACT SUSP [place] 1 [place] into each nostril daily. Prn in the [...] PM CDT Narrative Resulting Agency Comment [facility] [address] ??[facility] [phone] Edward Miranda MD LAB - HEMATOLOGY OR DERABLES [facility] ACCOUNT BILL * C-REACTIVE PROTEIN (10/24/2009 11:26 AM CDT) C-Reactive Protein 1.7 0.0 - 4.9 mg/L [facility] ACCOUNT BILL BLOOD SPECIMEN / Unknown 10/24/2009 11:26 AM CDT 10/24/2009 5:27 PM CDT Narrative Resulting Agency Comment [facility] [address] ??[facility] [phone] Edward Miranda MD LAB - CHEMISTRY ORD [...] Agency Comment [facility] [place] [address] ??[place] [phone] Edward Miranda MD LAB - CHEMISTRY HÉCTOR BALLARD [facility] Organization Address City/State/ZIP Co de Phone Number [facility] ACCOUNT BILL documented in this encounter Visit Diagnoses Diagnosis Rheumatoid arthritis(714.0) (HCC)- Primary Rheumatoid arthritis documented in this encounter
--- OUTSIDE RECORDS SUMMARY | 2024-06-28 23:35 | XMS_ITS | Encounter Summary ---
Author Organization [facility] Health Address [address] [place] [address] [place] [address] Care Team Providers Care Lagging Machine Operator Name Role Phone Unavailable Primary Care Provider Unavailabl e Reason for Visit * Reason Comments Follow-up ra Encounter Details Date Type Department Care Team (Late st Contact Info) Description 06/27/2009 10:15 AM PET CARE ASSOCIATE Office Visit [facility] - Rheumatology [address] [place] [address] [phone] Edward Miranda MD [address] [place] [address] Rheumatoid Arthritis (HCC) (Primary Dx) Social History [...] Comments Blood Pressure 144/88 06/27/2009 10:32 AM PET CARE ASSOCIATE Pulse 76 06/27/2009 10:32 AM PET CARE ASSOCIATE Temperature - - Respiratory Rate - - Oxygen Saturation - - Inhaled Oxygen Concentration - - Weight 61.2 kg (135 lb) 06/27/2009 10:32 AM PET CARE ASSOCIATE Height - - Body Mass Index 23.91 10/27/2008 10:24 AM CDT documented in this encounter Progress Notes * Deepali Castellon MA - 09/12/2009 1:26 PM CSTQuick Note: Sent lab letter to pt CARE ASSOCIATE * Edward Miranda MD - 09/09/2009 10:11 PM CSTQuick Note: Labs ok CARE ASSOCIATE * Deepali Castellon MA - 07/10/2009 11:24 AM CSTQuick Note: Sent letter re labs CARE ASSOCIATE * Edward Miranda MD - 07/01/2009 5:25 PM CSTQuick Note: Mtx ok CARE ASSOCIATE * Edward Miranda MD - 06/27/2009 11:02 AM CST Subjective: Senia Ruth 48 y.o. female Chief Complaint Patient presents with ??? Follow-up ra Current outpatient prescriptions prior to encounter Medication Sig Dispense Refill ??? Methotrexate (Anti-Rheumatic) 2.5 MG TABS Take 4 Tabs by mouth every 7 days. 16 12 ??? NASONEX 50 MCG/ACT SUSP [place] 1 [place] into each nostril daily. Prn in the [...] in office in 4 mo Same meds CARE ASSOCIATE * Deepali Castellon MA - 06/27/2009 10:33 AM CST Chief Complaint Patient presents with ??? Follow-up ra BP 144/88 Pulse 76 Wt 61.236 kg (135 lb) CARE ASSOCIATE documented in this encounter Plan of Treatment Not on file documented as of this encounter Procedures Procedure Name Priority Date/Time Associated Diagnosis Comments ERYTHROCYTE SEDIMENTATION RATE Routine 08/31/2009 1:37 PM PET CARE ASSOCIATE Rheumatoid Arthritis (HCC) C-REACTIVE PROTEIN Routine 06/27/2009 10 :46 AM PET CARE ASSOCIATE Rheumatoid Arthritis (HCC) CBC W AUTO DIFFERENTIAL Routine 06/27/2009 10:46 AM PET CARE ASSOCIATE Rheumatoid Arthritis (HCC) COMPREHENSIVE METABOLIC PANEL Routine 06/27/2009 10:46 AM PET CARE ASSOCIATE Rheumatoid Arthritis (HCC) documented in this encounter Results * SED RATE WESTERGREN AUTO (08/31/2009 1:37 PM PET CARE ASSOCIATE) Erythrocyte Sedimentation Rate Westergren 5 0 - 20 mm/hr [facility] ACCOUNT BILL BLOOD SPECIMEN / Unknown 08/31/2009 1:37 PM PET CARE ASSOCIATE 08/31/2009 8:22 PM PET CARE ASSOCIATE Narrative Resulting Agency Comment [facility] [address] ??[facility] [phone] Edward Miranda MD LAB - HEMATOLOGY OR DERABLES Performing Organization Address [facility] de Phone Number [facility] ACCOUNT BILL * C-REACTIVE PROTEIN (06/27/2009 10:46 AM PET CARE ASSOCIATE) C-Reactive Protein 1.8 0.0 - 4.9 mg/L [facility] ACCOUNT BILL BLOOD SPECIMEN / Unknown 06/27/2009 10:46 AM PET CARE ASSOCIATE 06/27/2009 5:42 PM PET CARE ASSOCIATE Narrative Resulting Agency Comment [facility] ??[facility]ly [facility] [phone] Edward Miranda MD LAB - CHEMISTRY ORD ERABLES Performing Organization Address [facility] de Phone Number [facility] ACCOUNT BILL * (ABNORMAL) COMPREHENSIVE METABOLIC PANEL (06/27/2009 10:46 AM PET CARE ASSOCIATE) Glucose 114(H) 65 - 99 mg/dL [facility] [...] BLOOD SPECIMEN / Unknown 06/27/2009 10:46 AM PET CARE ASSOCIATE 06/27/2009 5:42 PM PET CARE ASSOCIATE Narrative Resulting Agency Comment [facility] [address] ??[facility] [phone] Edward Miranda MD LAB - CHEMISTRY ORD ERABLES [facility] ACCOUNT BILL * CBC W AUTO DIFFERENTIAL (06/27/2009 10:46 AM PET CARE ASSOCIATE) WBC 4.6 4.0 - 10.5 x10E3/uL [facility] [...] BLOOD SPECIMEN / Unknown 06/27/2009 10:46 AM PET CARE ASSOCIATE 06/27/2009 5:42 PM PET CARE ASSOCIATE Narrative [facility] ACCOUNT BILL - 06/28/2009 7:24 AM PET CARE ASSOCIATE Additional Result Information IMMATURE CELLS ([facility]): RESULT NOT AVAILABLE IMMATURE GRANULOCYTES ([facility]): RESULT NOT AVAILABLE IMMATURE GRANS (ABS) ([facility]): RESULT NOT AVAILABLE NRBC ([facility]): RESULT NOT AVAILABLE HEMATOLOGY COMMENTS: ??BLOOD,URINE ([facility]): RESULT NOT AVAILABLE Resulting Agency Comment [facility] [address] ??[facility]ly [facility] [phone] Edward Miranda MD LAB - HEMATOLOGY OR DERABLES [facility] ACCOUNT BILL documented in this encounter Visit Diagnoses Diagnosis Rheumatoid arthritis(714.0) ([facility])- Primary Rheumatoid arthritis documented in this encounter
--- OUTSIDE RECORDS SUMMARY | 2024-06-28 23:35 | XMS_ITS | Encounter Summary ---
Author Organization [facility] Address [facility] [place] [address] [place] [address] Care Team Providers Care Dictionary Editor Name Role Phone William Craig MD Primary Care Provider [phone] Judie Carnes MD Unavailable Reason for Visit * Reason Onset Date Comments Question 02/16/2024 Encounter Details Date Type Department Care Team (Late st Contact Info) Description 02/16/20[address] [facility] [address] [place] [address] Judie Carnes MD [address] [place] [address] Question Social History Tobacco Use [...] Info) Description 01/17/2025 8:00 AM CDT Appointment [facility] [place] [address] Judie Carnes MD [address] [place] [address] 01/20/2025 10:30 AM CDT Office Visit [facility] [place] [address] Judie Carnes MD [address] [place], [place] 689209 documented as of this encounter Visit Diagnoses Not on filedocumented in this encounter Care Teams Dictionary Editor Relationship Specialty Start Date End Date William Craig MD [address] [place] [phone] PCP - General INTERNAL MEDICINE 01/15/24 Judie Carnes MD [address] [place] [address] [place] Painter Maintenance CARDIOVASCULAR DISEASE 01/15/24 documented as of this encounter
--- OUTSIDE RECORDS SUMMARY | 2024-06-28 23:35 | XMS_ITS | Encounter Summary ---
Author Organization [facility] Health Address [address] [facility] [place] [address] Care Team Providers Care Correctional Officer Captain Name Role Phone Unavailable Primary Care Provider Unavailabl e Encounter Details Date Type Department Care Team (Late st Contact Info) Description 04/26/2009 Orders Only [facility] - Rheumatology [address] [place] [address] Edward Miranda MD [address] [place] [address] [phone] Social History Tobacco Use Types Packs/Day Years [...] PM CDT Narrative Resulting Agency Comment [facility] [address] ??[facility] [phone] Edward Miranda MD LAB - CHEMISTRY ORD [...] RESULT NOT AVAILABLE Resulting Agency Comment [facility] [address] ??[facility] [phone] Edward Miranda MD LAB - HEMATOLOGY OR DERABLES [facility] INSURANCE BILL documented in this encounter Visit Diagnoses Not on filedocumented in this encounter
--- OUTSIDE RECORDS SUMMARY | 2024-06-28 23:35 | XMS_ITS | Encounter Summary ---
Author Organization [facility] Health Address [address] [place] [address] [place] [address] Care Team Providers Care Pelt Inspector Name Role Phone Unavailable Primary Care Provider Unavailabl e Reason for Visit * Reason Comments Rheumatoid Arthritis follow up Encounter Details Date Type Department Care Team (Late st Contact Info) Description 02/28/2009 10:15 AM CDT Office Visit [facility] - Rheumatology [address] [place] [address] Edward Miranda MD [address] [place] [address] Rheumatoid Arthritis (HCC) (Primary Dx) Social History [...] Dispense Refill ??? NASONEX 50 MCG/ACT SUSP [place] 1 [place] into each nostril daily. Prn in the [...] pain last mo went to chiropractor then brush holder inspector ct for stones neg then stress test [...] PM CDT Narrative Resulting Agency Comment [facility] [place] ??[facility] [phone] Edward Miranda MD LAB - HEMATOLOGY OR DERABLES Performing Organization Address City/[facility]/ZIP Co de Phone Number [facility] ACCOUNT BILL * C-REACTIVE PROTEIN (02/28/2009 10:59 AM CDT) C-Reactive Protein 1.6 0.0 - 4.9 mg/L [facility] ACCOUNT BILL BLOOD SPECIMEN / Unknown 02/28/2009 10:59 AM CDT 02/28/2009 6:05 PM CDT Narrative Resulting Agency Comment [facility] [address] ??[facility] [phone] Edward Miranda MD LAB - CHEMISTRY ORD ERABLES Performing Organization Address [facility] Co de Phone Number [facility] [...] CDT Narrative Resulting Agency Comment [facility] [address] ??[facility] [phone] Edward Miranda MD LAB - CHEMISTRY ORD [...] NOT AVAILABLE Resulting Agency Comment [facility] [address] ??[facility] [phone] Edward Miranda MD LAB - HEMATOLOGY OR DERABLES [facility] ACCOUNT BILL documented in this encounter Visit Diagnoses Diagnosis Rheumatoid arthritis(714.0) (HCC)- Primary Rheumatoid arthritis documented in this encounter
--- OUTSIDE RECORDS SUMMARY | 2024-06-28 23:35 | XMS_ITS | Encounter Summary ---
Author Organization [facility] Address [address] [place] [address] Care Team Providers Care Academic Interventionist Name Role Phone Unavailable Primary Care Provider Unavailabl e Encounter Details Date Type Department Care Team (Late st Contact Info) Description 12/27/2009 Orders Only [facility] - Rheumatology [address] [place] [address] Edward Miranda MD [address] [place] [address] [phone] Social History Tobacco Use Types Packs/Day Years [...] of this report has been sent to [phone]. Resulting Agency Comment [facility] [address] ??[facility] [phone] Edward Miranda MD LAB - CHEMISTRY ORD [...] of this report has been sent to [phone]. Additional Result Information IMMATURE CELLS ([facility]): RESULT NOT AVAILABLE NRBC ([facility]): RESULT NOT AVAILABLE HEMATOLOGY COMMENTS: ??BLOOD,URINE ([facility]): RESULT NOT AVAILABLE Resulting Agency Comment [facility] [address] ??[facility] [phone] Edward Miranda MD LAB - HEMATOLOGY OR DERABLES [facility] INSURANCE BILL documented in this encounter Visit Diagnoses Not on filedocumented in this encounter
--- OUTSIDE RECORDS SUMMARY | 2024-06-28 23:35 | XMS_ITS | Encounter Summary ---
Author Organization [facility] Address [facility] [facility] [place] [address] [place] [address] Care Team Providers Care Belt Conveyor Drier Name Role Phone William Craig MD Primary Care Provider [phone] Judie Carnes MD Unavailable Encounter Details Date Type Department Care Team (Late st Contact Info) Description 01/13/2024 Scan [facility] [address] [place] [phone] Scanned, Doc Pccl Social History Tobacco Use [...] Info) Description 01/17/2025 8:00 AM CDT Appointment [facility] [address] [place] [address] Judie Carnes MD [address] [place] [address] [phone] 01/20/2025 10:30 AM CDT Office Visit [facility] [address] [place] [address] Judie Carnes MD [address] [place] [address] documented as of this encounter Visit Diagnoses Not on filedocumented in this encounter Care Teams Belt Conveyor Drier Relationship Specialty Start Date End Date William Craig MD [address] [place] [phone] PCP - General INTERNAL MEDICINE 01/15/24 Judie Carnes MD [address] [place] [address] [place] Loss Prevention Manager CARDIOVASCULAR DISEASE 01/15/24 documented as of this encounter
--- OUTSIDE RECORDS SUMMARY | 2024-06-28 23:35 | XMS_ITS | Encounter Summary ---
Author Organization [facility] Address [address] [place] [address]. [place] [address] [place] [address] Care Team Providers Care Product Tester Name Role Phone William Craig MD Primary Care Provider [phone] Judie Carnes MD Unavailable Reason for Visit * Reason Comments Consult Encounter Details Date Type Department Care Team (Late st Contact Info) Description 03/09/2024 10:30 AM CDT Office Visit [facility] [place] [address] Arnaldo Ga MD [address] [place] [address] Consult Social History Tobacco Use [...] Ruth in the Cardiac Electrophysiology Clinic at [facility]. As you are aware, Senia Ruth is a 63-year-old female with PMH of recurrent CVA, hypertension, hyperlipidemia, diabetes mellitus type 2 presented to our clinic for consu ltation regarding embolic stroke of unknown source. She has history of recurrent infarcts noted in multiple areas of brain and underwent workup which was negative for any significant stenosis. She had a 30-day auto dealer which was negative for any atrial fibrillation. [...] Info) Description 01/17/2025 8:00 AM CDT Appointment [facility] [address] [place] [address] [place] [address] Judie Carnes MD [address] [place] [address] 01/20/2025 10:30 AM CDT Office Visit [facility] [place] [address] Judie Carnes MD [address] [place] [address] documented as of this encounter Procedures Procedure Name Priority Date/Time Associated Diagnosis Comments ECG 12-LEAD Routine 03/09/2024 9:28 AM CDT Encounter for consultation Mitral valve stenosis, unspecified etiology documented in this encounter Visit Diagnoses Diagnosis Hx of completed stroke- Primary Transient ischemic attack (TIA), and cerebral infarction without residual deficits documented in this encounter Care Teams Product Tester Relationship Specialty Start Date End Date William Craig MD [address] [place] [phone] PCP - General INTERNAL MEDICINE 01/15/24 Judie Carnes MD [address] [place] [address] [place] Diamond Sawer CARDIOVASCULAR DISEASE 01/15/24 documented as of this encounter
--- OUTSIDE RECORDS SUMMARY | 2024-06-28 23:35 | XMS_ITS | Encounter Summary ---
Author Organization [facility] Address [facility] [facility] [place] [address] [place] [address] Care Team Providers Care Photoengraving Machine Operator/Tender Name Role Phone William Craig MD Primary Care Provider [phone] Judie Carnes MD Unavailable Encounter Details Date Type Department Care Team (Latest Contact Info) Description 03/09/2024 10:15 AM CDT - 03/09/2024 11:59 PM CDT Hospital Encounter [facility] [address] [place] [address] Arnaldo Humphrey MD [address] [place], [place] [phone] Discharge Disposition: Home or Self Care (Routine [...] Info) Description 01/17/2025 8:00 AM CDT Appointment [facility] [address] [place] [address] Judie Carnes MD [address] [place], [place] [address] 01/20/2025 10:30 AM CDT Office Visit [facility] [address] [place] [address] Judie Carnes MD [address] [place], [place] [phone] documented as of this encounter Procedures Procedure Name Priority Date/Time Associated Diagnosis Comments ECG 12-LEAD Routine 03/09/2024 9:28 AM CDT Encounter for consultation Mitral valve stenosis, unspecified etiology documented in this encounter Results * ECG 12 lead (HOSPITAL PERFORMED ONLY) (03/09/2024 9:28 AM CDT) 03/09/2024 9:28 AM CDT Narrative [facility] - 03/11/2024 2:54 PM CDT ? [facility] ?[address] [place] ??[id number] ? Test Date: ?2024-03-09 Pat Name: ? SENIA RUTH ?Department: ?? 3 ? Room: ? Gender: ? Female ? Texturing Machine Fixer: ?? : ?1960 ? Requested By: ARNALDO MILAGRO Order Number: [id number] ? Reading MD: ?? Arnaldo Milagro ? Measurements Intervals ?[place] ? Rate: ? 71 ? P: ?65 MT: ? 156 ?QRS: ?75 QRSD: ? 82 ? T: ?75 QT: ? 397 ? QTc: ?433 ? Interpretive Statements SINUS RHYTHM Procedure Note Arnaldo Humphrey MD - 03/11/[address] [place] [address] Test Date: 2024-03-09 Pat Name: SENIA RUTH Department: 3 Room: Gender: Female Texturing Machine Fixer: : 1960 Requested By: ARNALDO HUMPHREY Order Number: [id number] Reading MD: Arnaldo Humphrey Measurements Intervals [place] Rate: 71 P: 65 MT: 156 QRS: 75 QRSD: 82 T: 75 QT: 397 QTc: 433 Interpretive Statements SINUS RHYTHM Arnaldo Humphrey MD ECG ORDERABLES Final Res ult Performing Organization Address City/State/[place] Co de Phone Number [facility] documented in this encounter Visit Diagnoses Diagnosis Hx of completed stroke- Primary Transient ischemic attack (TIA), and cerebral infarction without residual deficits Encounter for consultation Unspecified reason for consultation Mitral valve stenosis, unspecified etiology documented in this encounter Care Teams Photoengraving Machine Operator/Tender Relationship Specialty Start Date End Date William Cragi MD [address] [place] [address] PCP - General INTERNAL MEDICINE 01/15/24 Judie Carnes MD [address] [place] [address] [place] Assistant Project Engineer CARDIOVASCULAR DISEASE 01/15/24 documented as of this encounter
--- OUTSIDE RECORDS SUMMARY | 2024-06-28 23:35 | XMS_ITS | Encounter Summary ---
Author Organization [facility] Address [address] [place] [address] [place] [address] Care Team Providers Care Shuttlecock Assembler Name Role Phone Unavailable Primary Care Provider Unavailabl e Reason for Visit * Reason Onset Date Comments Medication Request 01/01/2010 Encounter Details Date Type Department Care Team (Late st Contact Info) Description 12/27/2009 Telephone [facility] Medical [facility] - Rheumatology [address] [place] [address] [phone] Edward Miranda MD [address] [place] [address] Medication Request Social History Tobacco Use Types [...]
--- OUTSIDE RECORDS SUMMARY | 2024-06-28 23:36 | XMS_ITS | Encounter Summary ---
Author Organization [facility] Address [facility] [facility] [place] [address] [place] [address] Care Team Providers Care Central Supply Technician Supervisor Name Role Phone William Craig MD Primary Care Provider [phone] Judie Carnes MD Unavailable Reason for Visit * Reason Comments ECG (SCAN) Encounter Details Date Type Department Care Team (Late st Contact Info) Description 11/16/2023 Scan [facility] [address] [place] [address] Scanned, Doc Pccl ECG (SCAN) [...] Info) Description 01/17/2025 8:00 AM CDT Appointment [facility] [address] [address] Judie Carnes MD [address] [place] [phone] 01/20/2025 10:30 AM CDT [facility] [address] [address] Judie Carnes MD [address] [place] [address] [phone] documented as of this encounter Procedures Procedure Name Priority Date/Time Associated Diagnosis Comments ECG GENERIC (SCAN ORDER) Routine 11/16/2023 12:00 AM CDT documented in this encounter Results * ECG (11/16/2023 12:00 AM CDT) 11/16/2023 us Doc Pccl Scanned SCANNING Final Result [facility] documented in this encounter Visit Diagnoses Not on filedocumented in this encounter Care Teams Central Supply Technician Supervisor Relationship Specialty Start Date End Date Wililam Craig MD [address] [place] [address] PCP - General INTERNAL MEDICINE 01/15/24 Judie Carnes MD [address] [place] [address] [place] Marketing Officer CARDIOVASCULAR DISEASE 01/15/24 documented as of this encounter
--- OUTSIDE RECORDS SUMMARY | 2024-06-28 23:36 | XMS_ITS | Encounter Summary ---
Author Organization [facility] Address [facility]6 [facility] [place] [address] [place] [address] Care Team Providers Care Veneer Patcher Name Role Phone William Craig MD Primary Care Provider [phone] Judie Carnes MD Unavailable Reason for Visit * Reason Comments CT (SCAN) Encounter Details Date Type Department Care Team (Late st Contact Info) Description 11/24/2023 [facility] [address] [place] [address] Scanned, Doc Pccl CT (SCAN) [...] Info) Description 01/17/2025 8:00 AM CDT Appointment [facility] [address] [address] Judie Carnes MD [address] [place] [phone] 01/20/2025 10:30 AM CDT Office Visit [facility] [address] [place] [address] Judie Carnes MD [address] [place], [place] [phone] documented as of this encounter Procedures Procedure Name Priority Date/Time Associated Diagnosis Comments CT GENERIC Routine 11/24/2023 12:00 AM CDT documented in this encounter Results * CT (11/24/2023 12:00 AM CDT) Anatomical Region Laterality Modality Other 11/24/2023 us Doc Pccl Scanned SCANNING Final Result documented in this encounter Visit Diagnoses Not on filedocumented in this encounter Care Teams Veneer Patcher Relationship Specialty Start Date End Date William Craig MD [address] [place] [phone] PCP - General INTERNAL MEDICINE 01/15/24 Judie Carnes MD [address] [place] [address] [place] Shear Helper CARDIOVASCULAR DISEASE 01/15/24 documented as of this encounter
--- OUTSIDE RECORDS SUMMARY | 2024-06-28 23:36 | XMS_ITS | Encounter Summary ---
Author Organization [facility] Address [facility] [facility] [place] [address] [place] [address] Care Team Providers Care Checkman Name Role Phone William Craig MD Primary Care Provider [phone] Judie Carnes MD Unavailable Reason for Visit * Reason Comments Holter Monitor Report (SCAN) Encounter Details Date Type Department Care Team (Late st Contact Info) Description 11/26/2023 [facility] [address] [place] [address] Scanned, Doc Pccl Holter Monitor [...] Appointment [facility] [address] [place] [address] Judie Carnes MD [address] [place], [place] [phone] 01/20/2025 10:30 AM CDT Office Visit [facility] [address] [place] [phone] Judie Carnes MD [address] [place], [place] [phone] documented as of this encounter Procedures Procedure Name Priority Date/Time Associated Diagnosis Comments HEALTH EDITOR Routine 11/26/2023 12:00 AM CDT HOLTER DOCUMENT (SCAN ORDER) Routine 11/26/2023 documented in this encounter Results * HEALTH EDITOR (11/26/2023 12:00 AM CDT) 11/26/2023 us Doc Pccl Scanned SCANNING Final Result [facility] * HOLTER DOCUMENT (11/26/2023) us Doc Pccl Scanned SCANNING Final Result Performing Organization Address City/[facility]/ZIP Co de Phone Number [facility] documented in this encounter Visit Diagnoses Not on filedocumented in this encounter Care Teams Checkman Relationship Specialty Start Date End Date William Craig MD [address] [place] [phone] PCP - General INTERNAL MEDICINE 01/15/24 Judie Carnes MD [address] [place] [address] [place] [facility] Courier CARDIOVASCULAR DISEASE 01/15/24 documented as of this encounter
--- OUTSIDE RECORDS SUMMARY | 2024-06-28 23:36 | XMS_ITS | Encounter Summary ---
Author Organization [facility] Address Formerly [facility], [id number] [facility] [place] [address] [place] [address] Care Team Providers Care Pararescue Manager Name Role Phone William Craig MD Primary Care Provider [phone] Judie Carnes MD Unavailable Reason for Visit * Reason Comments Echo (SCAN) Encounter Details Date Type Department Care Team (Late st Contact Info) Description 02/03/2022 [facility] [address] [place] [address] Scanned, Doc Pccl Echo (SCAN) [...] Appointment [facility] [address] [address] Judie Carnes MD [address] [place] [address] [phone] 01/20/2025 10:30 AM CDT Office [facility] [address] [place] [id number] Judie Carnes MD [address] [place], [place] [id number] documented as of this encounter Procedures Procedure Name Priority Date/Time Associated Diagnosis Comments ECHO GENERIC (SCAN ORDER) Routine 02/03/2022 12:00 AM CDT documented in this encounter Results * ECHO (02/03/2022 12:00 AM CDT) Anatomical Region Laterality Modality Other 02/03/2022 us Doc Pccl Scanned SCANNING Final Result documented in this encounter Visit Diagnoses Not on filedocumented in this encounter Care Teams Pararescue Manager Relationship Specialty Start Date End Date William Craig MD [address] [place] [phone] PCP - General INTERNAL MEDICINE 01/15/24 Judie Carnes MD [address] [place] [address] [place] [employer] CARDIOVASCULAR DISEASE 01/15/24 documented as of this encounter
--- OUTSIDE RECORDS SUMMARY | 2024-06-28 23:38 | XMS_ITS | Referral Summary ---
Author Organization [facility] Medical Office Building B Address [address] [place] [address] Care Team Providers Care Head Of Visual Merchandising Name Role Phone William Craig MD Primary Care Provider [phone] Encounters Date Type Department Care Team Description 04/20/2024 3:32 AM CDT - 05/03/2024 3:33 PM CDT Hospital Encounter [address] [address] Mindy Tabor MD Volkerding, MD Jan Fuchs Yu, MD Altwal, MD Ivon Lopez Mathew S., DO Chapagain, Akhil, MD Chowdhury, Farhanaz, MD Cerebrovascular accident (CVA), unspecified mechanism (HCC) (Primary Dx) Discharge Disposition: Discharge to SNF 04/22/2024 9:55 AM CDT Anesthesia Event [facility] 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 [address] [place] [id number] Sharon Betancourt MD Ertel, Michelle N., CRNA 04/19/2024 5:20 PM CDT - 04/19/2024 11:59 PM CDT Hospital Encounter [facility] Outside [address] [address] Discharge Disposition: Discharge to home or self care 04/19/2024 Documentation [facility] [address] [phone] Mindy Tabor MD from Last 3 Months [...] risk drug monitoring status 12/21/2012 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 de Phone Number [address] [place] [place] [address] * POCT glucose (05/02/2024 8:42 PM CDT) Glucose, POC 138 70 - 199 mg/dL Glucose comment 1 Use This Result [facility] Blood 05/02/2024 8:42 PM CDT 05/02/2024 8:42 PM CDT Thang Del Valle DO LAB POCT ORDERABLES - D EVICE Final Result Performing Organization Address City/[facility] Co de Phone Number [address] [place] [place] [address] * POCT glucose (05/02/2024 4:45 PM CDT) Glucose, POC 139 70 - 199 mg/dL Glucose comment 1 Use This Result [facility] Blood 05/02/2024 4:45 PM CDT 05/02/2024 4:45 PM CDT Thang S. Kalapurayil DO LAB POCT ORDERABLES - D EVICE Final Result Performing Organization Address [facility] de Phone Number NADINE [address] [place] [address] * POCT glucose (05/02/2024 11:54 AM CDT) Glucose, POC 142 70 - 199 mg/dL Blood 05/02/2024 11:5 4 AM CDT 05/02/2024 11:54 AM CDT Thang Maganayil DO LAB POCT ORDERABLES - D EVICE Final Result Performing Organization Address [facility] de Phone Number NADINE [address] [address] * POCT glucose (05/02/2024 8:08 AM CDT) [facility] Glucose, POC 124 70 - 199 mg/dL Glucose comment 1 Use This Result [facility] Blood 05/02/2024 8:08 AM CDT 05/02/2024 8:08 AM CDT Thang Scotturayil DO LAB POCT ORDERABLES - D EVICE Final Result Performing Organization Address [facility] de Phone Number [address] [place] [address] * eGFR (05/01/2024 11:47 PM CDT) Pathologist [facility] eGFR >90 >=60 mL/min/1. 73 m2 Comment: [...] MD LAB BLOOD ORDERABLES Final Resul t [facility] [address] [facility] Department [place] [address] * Differential, auto (05/01/2024 11:47 PM CDT) Pathologist [facility] Neutrophil abs 2.3 1.5 - 6.5 K/cumm Imm gran abs 0.0 0.0 - 0.1 K/cumm [facility] Lymphocyte abs 1.4 0.8 - 3.3 K/cumm [facility] Monocyte abs 0.7 0.2 - 0.8 K/cumm [facility] Eosinophil abs 0.4 0.0 - 0.5 K/cumm [facility] Basophil abs 0.1 0.0 - 0.1 K/cumm [facility] Neutrophil pct 46.8 % [facility] Comment: Interpretive Data Percent cell count reference ranges are not reported, since discordance with absolute values may lead to misinterpretation of CBC data. Current Interpretive Data was last revised on 2017. Imm gran pct 0.2 % [facility] Comment: Interpretive Data Percent cell count reference ranges are not reported, since discordance with absolute values may lead to misinterpretation of CBC data. Current Interpretive Data was last revised on 2017. Lymphocyte pct 29.1 % [facility] Comment: Interpretive Data Percent cell count reference ranges are not reported, since discordance with absolute values may lead to misinterpretation of CBC data. Current Interpretive Data was last revised on 2017. Monocyte pct 13.6 % [facility] Comment: Interpretive Data Percent cell count reference ranges are not reported, since discordance with absolute values may lead to misinterpretation of CBC data. Current Interpretive Data was last revised on 2017. Eosinophil pct 8.9 % [facility] Comment: Interpretive Data Percent cell count reference ranges are not reported, since discordance with absolute values may lead to misinterpretation of CBC data. Current Interpretive Data was last revised on 2017. Basophil pct 1.4 % [facility] Comment: Interpretive Data Percent cell count reference ranges are not reported, since discordance with absolute values may lead to misinterpretation of CBC data. Current Interpretive Data was last revised on 2017. Blood 05/01/2024 11:4 7 PM CDT 05/01/2024 11:52 PM CDT us Pricilla Andino MD LAB BLOOD ORDERABLES Final Resul t [facility] [address] [facility] Department [place] [address] * (ABNORMAL) CBC with auto differential (05/01/2024 11:47 PM CDT) WBC 4.9 3.8 - 9.9 K/cumm Hgb 8.3(L) 11.9 - 15.5 g/dL [facility] Hct 26.6(L) 35.6 - 45.5 % [facility] Plt 232 150 - 400 K/cumm [facility] MPV 10.6 9.1 - 12.3 fL [facility] RBC 3.05(L) 3.90 - 5.20 M/cumm [facility] MCV 87.2 81.3 - 96.4 fL [facility] MCH 27.2 27.1 - 33.3 pg [facility] MCHC 31.2(L) 32.3 - 35.7 g/dL [facility] RDW CV 15.1(H) 11.1 - 14.9 % [facility] RDW SD 47.7 35.7 - 48.1 fL [facility] NRBC abs 0.00 0.00 - 0.01 K/cumm [facility] Blood 05/01/2024 11:4 7 PM CDT 05/01/2024 11:52 PM CDT Pricilla Andino MD LAB BLOOD ORDERABLES Final Resul t [facility] [address] [facility] Department [place] [address] * Renal function panel (05/01/2024 11:47 PM CDT) Sodium 141 135 - 145 mmol/L Potassium, pl 4.2 3.3 - 4.9 mmol/L [facility] Comment:Hemolyzed; Potassium value may be falsely elevated by as much as 1.0 mmol/L. Suggest redraw and reanalysis. Chloride 104 97 - 110 mmol/L [facility] CO2 27 22 - 32 mmol/L [facility] Anion gap 10 2 - 15 mmol/L [facility] BUN 25 6 - 25 mg/dL [facility] Creatinine 0.74 0.60 - 1.10 mg/dL [facility] Glucose 122 70 - 199 mg/dL [facility] Comment: Interpretive Data Fasting glucose >/= 126 [...] 2022. Calcium 9.7 8.5 - 10.3 mg/dL [facility] Phosphorus, pl 3.9 2.3 - 4.5 mg/dL [facility] Albumin 3.8 3.5 - 5.0 g/dL [facility] Blood 05/01/2024 11:4 7 PM CDT 05/01/2024 11:52 PM CDT Pricilla Andino MD LAB BLOOD ORDERABLES Final Resul t Performing Organization Address City/[facility] Co de Phone Number [address] [place] [address] * POCT glucose (05/01/2024 7:56 PM CDT) Glucose, POC 147 70 - 199 mg/dL Glucose comment 1 Use This Result [facility] Blood 05/01/2024 7:56 PM CDT 05/01/2024 7:56 PM CDT Thang Del Valle DO LAB POCT ORDERABLES - D EVICE Final Result Performing Organization Address [facility] de Phone Number [address] [place] [address] * POCT glucose (05/01/2024 4:33 PM CDT) Glucose, POC 128 70 - 199 mg/dL Glucose comment 1 Use This Result [facility] Blood 05/01/2024 4:33 PM CDT 05/01/2024 4:33 PM CDT Thang Del Valle DO LAB POCT ORDERABLES - D EVICE Final Result Performing Organization Address City/[facility] Co de Phone Number [address] [place] [address] * POCT glucose (05/01/2024 11:19 AM CDT) Glucose, POC 151 70 - 199 mg/dL Glucose comment 1 Use This Result [facility] Blood 05/01/2024 11:1 9 AM CDT 05/01/2024 11:19 AM CDT us Thang Del Valle DO LAB POCT ORDERABLES - D EVICE Final Result Performing Organization Address [facility] Co de Phone Number NADINE [address] [facility] [place] [address] * eGFR (05/01/2024 7:09 AM CDT) eGFR [...] ORDERABLES Fi nal Result Performing Organization Address [facility] Co de Phone Number NADINE [facility] [place] [address] * Differential, auto (05/01/2024 7:09 AM CDT) Pathologist [facility] Neutrophil abs 2.7 1.5 - 6.5 K/cumm Imm gran abs 0.0 0.0 - 0.1 K/cumm [facility] Lymphocyte abs 1.5 0.8 - 3.3 K/cumm [facility] Monocyte abs 0.8 0.2 - 0.8 K/cumm [facility] Eosinophil abs 0.5 0.0 - 0.5 K/cumm [facility] Basophil abs 0.1 0.0 - 0.1 K/cumm [facility] Neutrophil pct 48.3 % [facility] Comment: Interpretive Data Percent cell count reference ranges are not reported, since discordance with absolute values may lead to misinterpretation of CBC data. Current Interpretive Data was last revised on 2017. Imm gran pct 0.2 % [facility] Comment: Interpretive Data Percent cell count reference ranges are not reported, since discordance with absolute values may lead to misinterpretation of CBC data. Current Interpretive Data was last revised on 2017. Lymphocyte pct 26.2 % [facility] Comment: Interpretive Data Percent cell count reference ranges are not reported, since discordance with absolute values may lead to misinterpretation of CBC data. Current Interpretive Data was last revised on 2017. Monocyte pct 14.2 % [facility] Comment: Interpretive Data Percent cell count reference ranges are not reported, since discordance with absolute values may lead to misinterpretation of CBC data. Current Interpretive Data was last revised on 2017. Eosinophil pct 9.7 % [facility] Comment: Interpretive Data Percent cell count reference ranges are not reported, since discordance with absolute values may lead to misinterpretation of CBC data. Current Interpretive Data was last revised on 2017. Basophil pct 1.4 % [facility] Comment: Interpretive Data Percent cell count reference ranges are not reported, since discordance with absolute values may lead to misinterpretation of CBC data. Current Interpretive Data was last revised on 2017. Blood 05/01/2024 7:09 AM CDT 05/01/2024 7:48 AM CDT Thang Del Valle DO LAB BLOOD ORDERABLES Fi nal Result [facility] [address] [place] [address] * POCT glucose (05/01/2024 7:09 AM CDT) [facility] Glucose, POC 122 70 - 199 mg/dL Glucose comment 1 Use This Result [facility] Blood 05/01/2024 7:09 AM CDT 05/01/2024 7:09 AM CDT Thang Mateo Del Valle DO LAB POCT ORDERABLES - D EVICE Final Result Performing Organization Address City/[facility] Co de Phone Number NADINE [address] [place] [address] * (ABNORMAL) CBC with auto differential (05/01/2024 7:09 AM CDT) [facility] WBC 5.6 3.8 - 9.9 K/cumm Hgb 8.9(L) 11.9 - 15.5 g/dL [facility] Hct 28.5(L) 35.6 - 45.5 % [facility] Plt 236 150 - 400 K/cumm [facility] MPV 10.8 9.1 - 12.3 fL [facility] RBC 3.26(L) 3.90 - 5.20 M/cumm [facility] MCV 87.4 81.3 - 96.4 fL [facility] MCH 27.3 27.1 - 33.3 pg [facility] MCHC 31.2(L) 32.3 - 35.7 g/dL [facility] RDW CV 14.9 11.1 - 14.9 % [facility] RDW SD 47.7 35.7 - 48.1 fL [facility] NRBC abs 0.00 0.00 - 0.01 K/cumm [facility] Blood 05/01/2024 7:09 AM CDT 05/01/2024 7:48 AM CDT Thang ScottCerniuml DO LAB BLOOD ORDERABLES Fi nal Result Performing Organization Address City/[facility] Co de Phone Number [address] [facility] [address] * Magnesium (05/01/2024 7:09 AM CDT) [facility] Magnesium 2.1 1.4 - 2.5 mg/dL Blood 05/01/2024 7:09 AM CDT 05/01/2024 7:48 AM CDT Thang ScottCerniumglenys LAB BLOOD ORDERABLES Fi nal Result Performing Organization Address [facility] de Phone Number [address] [facility] [place] [address] * (ABNORMAL) Comprehensive metabolic panel (05/01/2024 7:09 AM CDT) [facility] Sodium 144 135 - 145 mmol/L Potassium, pl 3.8 3.3 - 4.9 mmol/L [facility] Chloride 107 97 - 110 mmol/L [facility] CO2 27 22 - 32 mmol/L [facility] Anion gap 10 2 - 15 mmol/L [facility] BUN 26(H) 6 - 25 mg/dL [facility] Creatinine 0.72 0.60 - 1.10 mg/dL [facility] Glucose 114 70 - 199 mg/dL [facility] Comment: Interpretive Data Fasting glucose >/= 126 [...] 2022. Calcium 9.8 8.5 - 10.3 mg/dL [facility] Bilirubin, total 0.3 0.1 - 1.2 mg/dL [facility] Protein, pl 6.5 6.5 - 8.5 g/dL [facility] Albumin 3.8 3.5 - 5.0 g/dL [facility] Alk phos 69 40 - 130 Units/L [facility] ALT 9 7 - 45 Units/L [facility] AST 29 10 - 45 Units/L [facility] Blood 05/01/2024 7:09 AM CDT 05/01/2024 7:48 AM CDT Thang Frenchapurayil DO LAB BLOOD ORDERABLES Fi nal Result [facility] [address] [place] [address] * POCT glucose (04/30/2024 8:32 PM CDT) Glucose, POC 117 70 - 199 mg/dL Glucose comment 1 Use This Result [facility] Blood 04/30/2024 8:32 PM CDT 04/30/2024 8:32 PM CDT Thang Scotturayil DO LAB POCT ORDERABLES - D EVICE Final Result Performing Organization Address City/[facility] Co de Phone Number [address] [place] [address] * POCT glucose (04/30/2024 4:42 PM CDT) Glucose, POC 157 70 - 199 mg/dL Glucose comment 1 Use This Result [facility] Glucose comment 2 RN/MD Notified [facility] Blood 04/30/2024 4:42 PM CDT 04/30/2024 4:42 PM CDT Thang Frenchapurayil DO LAB POCT ORDERABLES - D EVICE Final Result Performing Organization Address City/[facility]/ZIP Co de Phone Number [address] [place] [address] * POCT glucose (04/30/2024 11:50 AM CDT) Glucose, POC 123 70 - 199 mg/dL Glucose comment 1 Use This Result [facility] Blood 04/30/2024 11:5 0 AM CDT 04/30/2024 11:50 AM CDT Thang Del Valle DO LAB POCT ORDERABLES - D EVICE Final Result [facility] [address] [facility] Department [place] [address] * eGFR (04/30/2024 10:01 AM CDT) eGFR [...] LAB BLOOD ORDERABLES Fi nal Result [facility] [address] [facility] Department [place] [address] * (ABNORMAL) Differential, auto (04/30/2024 10:01 AM CDT) Pathologist [facility] Neutrophil abs 2.8 1.5 - 6.5 K/cumm Imm gran abs 0.0 0.0 - 0.1 K/cumm [facility] Lymphocyte abs 1.6 0.8 - 3.3 K/cumm [facility] Monocyte abs 0.7 0.2 - 0.8 K/cumm [facility] Eosinophil abs 0.6(H) 0.0 - 0.5 K/cumm [facility] Basophil abs 0.1 0.0 - 0.1 K/cumm [facility] Neutrophil pct 48.9 % [facility] Comment: Interpretive Data Percent cell count reference ranges are not reported, since discordance with absolute values may lead to misinterpretation of CBC data. Current Interpretive Data was last revised on 2017. Imm gran pct 0.2 % [facility] Comment: Interpretive Data Percent cell count reference ranges are not reported, since discordance with absolute values may lead to misinterpretation of CBC data. Current Interpretive Data was last revised on 2017. Lymphocyte pct 27.7 % [facility] Comment: Interpretive Data Percent cell count reference ranges are not reported, since discordance with absolute values may lead to misinterpretation of CBC data. Current Interpretive Data was last revised on 2017. Monocyte pct 11.4 % [facility] Comment: Interpretive Data Percent cell count reference ranges are not reported, since discordance with absolute values may lead to misinterpretation of CBC data. Current Interpretive Data was last revised on 2017. Eosinophil pct 10.2 % [facility] Comment: Interpretive Data Percent cell count reference ranges are not reported, since discordance with absolute values may lead to misinterpretation of CBC data. Current Interpretive Data was last revised on 2017. Basophil pct 1.6 % [facility] Comment: Interpretive Data Percent cell count reference ranges are not reported, since discordance with absolute values may lead to misinterpretation of CBC data. Current Interpretive Data was last revised on 2017. Blood 04/30/2024 10:0 1 AM CDT 04/30/2024 10:17 AM CDT Thang Del Valle DO LAB BLOOD ORDERABLES Fi nal Result Performing Organization Address [facility] Co de Phone Number NADINE [address] [place] [address] * (ABNORMAL) CBC with auto differential (04/30/2024 10:01 AM CDT) WBC 5.7 3.8 - 9.9 K/cumm Hgb 9.1(L) 11.9 - 15.5 g/dL [facility] Hct 28.5(L) 35.6 - 45.5 % [facility] Plt 233 150 - 400 K/cumm [facility] MPV 10.7 9.1 - 12.3 fL [facility] RBC 3.27(L) 3.90 - 5.20 M/cumm [facility] MCV 87.2 81.3 - 96.4 fL [facility] MCH 27.8 27.1 - 33.3 pg [facility] MCHC 31.9(L) 32.3 - 35.7 g/dL [facility] RDW CV 15.0(H) 11.1 - 14.9 % [facility] RDW SD 47.3 35.7 - 48.1 fL [facility] NRBC abs 0.00 0.00 - 0.01 K/cumm [facility] Blood 04/30/2024 10:0 1 AM CDT 04/30/2024 10:17 AM CDT Thang Del Valle DO LAB BLOOD ORDERABLES Fi nal Result Performing Organization Address [facility]/ZIP Co de Phone Number NADINE [address] [place] [address] * Magnesium (04/30/2024 10:01 AM CDT) Pathologist [facility] Magnesium 2.3 1.4 - 2.5 mg/dL Blood 04/30/2024 10:0 1 AM CDT 04/30/2024 10:17 AM CDT Thang Del Valle DO LAB BLOOD ORDERABLES Fi nal Result [facility] [address] [facility] Department [place] [address] * Comprehensive metabolic panel (04/30/2024 10:01 AM CDT) Pathologist [facility] Sodium 145 135 - 145 mmol/L Potassium, pl 3.7 3.3 - 4.9 mmol/L [facility] Chloride 106 97 - 110 mmol/L [facility] CO2 28 22 - 32 mmol/L [facility] Anion gap 11 2 - 15 mmol/L [facility] BUN 24 6 - 25 mg/dL [facility] Creatinine 0.72 0.60 - 1.10 mg/dL [facility] Glucose 112 70 - 199 mg/dL [facility] Comment: Interpretive Data Fasting glucose >/= 126 [...] 2022. Calcium 9.5 8.5 - 10.3 mg/dL [facility] Bilirubin, total 0.3 0.1 - 1.2 mg/dL [facility] Protein, pl 6.6 6.5 - 8.5 g/dL [facility] Albumin 4.0 3.5 - 5.0 g/dL [facility] Alk phos 70 40 - 130 Units/L [facility] ALT 10 7 - 45 Units/L [facility] AST 25 10 - 45 Units/L [facility] Blood 04/30/2024 10:0 1 AM CDT 04/30/2024 10:17 AM CDT Thang Del Valle DO LAB BLOOD ORDERABLES Fi nal Result Performing Organization Address City/[facility]/ZIP Co de Phone Number NADINE [address] [place] [address] * POCT glucose (04/30/2024 8:19 AM CDT) Glucose, POC 127 70 - 199 mg/dL Blood 04/30/2024 8:19 AM CDT 04/30/2024 8:19 AM CDT Thang Del Valle DO LAB POCT ORDERABLES - D EVICE Final Result Performing Organization Address City/[facility] Co de Phone Number HUGO[address] [place] [address] * POCT glucose (04/29/2024 7:50 PM CDT) Glucose, POC 124 70 - 199 mg/dL Glucose comment 1 Use This Result [facility] Blood 04/29/2024 7:50 PM CDT 04/29/2024 7:50 PM CDT Giancarlo Durant MD LAB POCT ORDERABLES - DEVIC E Final Result Performing Organization Address City/[facility] Co de Phone Number HUGO[address] [place] [address] * POCT glucose (04/29/2024 4:00 PM CDT) Glucose, POC 133 70 - 199 mg/dL Glucose comment 1 Use This Result [facility] Glucose comment 2 RN/MD Notified [facility] Blood 04/29/2024 4:00 PM CDT 04/29/2024 4:00 PM CDT Giancarlo Durant MD LAB POCT ORDERABLES - DEVIC E Final Result Performing Organization Address [facility] de Phone Number [address] [address] * POCT glucose (04/29/2024 12:01 PM CDT) Glucose, POC 128 70 - 199 mg/dL Glucose comment 1 Use This Result [facility] Glucose comment 2 RN/MD Notified [facility] Blood 04/29/2024 12:0 1 PM CDT 04/29/2024 12:01 PM CDT us Giancarlo Durant MD LAB POCT ORDERABLES - DEVIC E Final Result Performing Organization Address [facility] de Phone Number [address] [address] * POCT glucose (04/29/2024 7:16 AM CDT) [facility] Glucose, POC 132 70 - 199 mg/dL Glucose comment 1 Use This Result [facility] Glucose comment 2 RN/MD Notified [facility] Blood 04/29/2024 7:16 AM CDT 04/29/2024 7:16 AM CDT us Giancarlo Durant MD LAB POCT ORDERABLES - DEVIC E Final Result Performing Organization Address [facility] de Phone Number [address] [address] * eGFR (04/29/2024 12:18 AM CDT) eGFR [...] MD LAB BLOOD ORDERABLES Final Resul t [facility] [address] [facility] Department of Laboratories [place], [place] [id number] * Differential, auto (04/29/2024 12:18 AM CDT) Pathologist [facility] Neutrophil abs 3.3 1.5 - 6.5 K/cumm Imm gran abs 0.0 0.0 - 0.1 K/cumm [facility] Lymphocyte abs 2.2 0.8 - 3.3 K/cumm [facility] Monocyte abs 0.7 0.2 - 0.8 K/cumm [facility] Eosinophil abs 0.5 0.0 - 0.5 K/cumm [facility] Basophil abs 0.1 0.0 - 0.1 K/cumm [facility] Neutrophil pct 48.8 % [facility] Comment: Interpretive Data Percent cell count reference ranges are not reported, since discordance with absolute values may lead to misinterpretation of CBC data. Current Interpretive Data was last revised on 2017. Imm gran pct 0.3 % [facility] Comment: Interpretive Data Percent cell count reference ranges are not reported, since discordance with absolute values may lead to misinterpretation of CBC data. Current Interpretive Data was last revised on 2017. Lymphocyte pct 31.9 % [facility] Comment: Interpretive Data Percent cell count reference ranges are not reported, since discordance with absolute values may lead to misinterpretation of CBC data. Current Interpretive Data was last revised on 2017. Monocyte pct 10.5 % [facility] Comment: Interpretive Data Percent cell count reference ranges are not reported, since discordance with absolute values may lead to misinterpretation of CBC data. Current Interpretive Data was last revised on 2017. Eosinophil pct 7.3 % [facility] Comment: Interpretive Data Percent cell count reference ranges are not reported, since discordance with absolute values may lead to misinterpretation of CBC data. Current Interpretive Data was last revised on 2017. Basophil pct 1.2 % [facility] Comment: Interpretive Data Percent cell count reference ranges are not reported, since discordance with absolute values may lead to misinterpretation of CBC data. Current Interpretive Data was last revised on 2017. Blood 04/29/2024 12:1 8 AM CDT 04/29/2024 12:39 AM CDT us Pricilla Andino MD LAB BLOOD ORDERABLES Final Resul t [facility] [address] [facility] Department [place] [address] * (ABNORMAL) CBC with auto differential (04/29/2024 12:18 AM CDT) WBC 6.8 3.8 - 9.9 K/cumm Hgb 9.0(L) 11.9 - 15.5 g/dL [facility] Hct 27.8(L) 35.6 - 45.5 % [facility] Plt 249 150 - 400 K/cumm [facility] MPV 10.6 9.1 - 12.3 fL [facility] RBC 3.26(L) 3.90 - 5.20 M/cumm [facility] MCV 85.3 81.3 - 96.4 fL [facility] MCH 27.6 27.1 - 33.3 pg [facility] MCHC 32.4 32.3 - 35.7 g/dL [facility] RDW CV 14.8 11.1 - 14.9 % [facility] RDW SD 45.7 35.7 - 48.1 fL [facility] NRBC abs 0.00 0.00 - 0.01 K/cumm [facility] Blood 04/29/2024 12:1 8 AM CDT 04/29/2024 12:39 AM CDT Pricilla Andino MD LAB BLOOD ORDERABLES Final Resul t [facility] [address] [facility] Department [place] [address] * (ABNORMAL) Renal function panel (04/29/2024 12:18 AM CDT) Sodium 143 135 - 145 mmol/L Potassium, pl 3.7 3.3 - 4.9 mmol/L [facility] Chloride 106 97 - 110 mmol/L [facility] CO2 27 22 - 32 mmol/L [facility] Anion gap 10 2 - 15 mmol/L [facility] BUN 29(H) 6 - 25 mg/dL [facility] Creatinine 0.76 0.60 - 1.10 mg/dL [facility] Glucose 144 70 - 199 mg/dL [facility] Comment: Interpretive Data Fasting glucose >/= 126 [...] Phosphorus, pl 3.7 2.3 - 4.5 mg/dL [facility] Albumin 3.9 3.5 - 5.0 g/dL [facility] Blood 04/29/2024 12:1 8 AM CDT 04/29/2024 12:39 AM CDT Pricilla Andino MD LAB BLOOD ORDERABLES Final Resul t Performing Organization Address City/[facility] Co de Phone Number [facility] [address] [facility] [address] * POCT glucose (04/28/2024 8:11 PM CDT) Glucose, POC 153 70 - 199 mg/dL Glucose comment 1 Use This Result [facility] Blood 04/28/2024 8:11 PM CDT 04/28/2024 8:11 PM CDT Giancarlo Durant MD LAB POCT ORDERABLES - DEVIC E Final Result Performing Organization Address City/[facility] de Phone Number [address] [place] [address] * POCT glucose (04/28/2024 4:48 PM CDT) Glucose, POC 109 70 - 199 mg/dL Glucose comment 1 Use This Result [facility] Blood 04/28/2024 4:48 PM CDT 04/28/2024 4:48 PM CDT Giancarlo Durant MD LAB POCT ORDERABLES - DEVIC E Final Result Performing Organization Address City/[facility] de Phone Number [address] [place] [address] * POCT glucose (04/28/2024 11:35 AM CDT) Glucose, POC 162 70 - 199 mg/dL Glucose comment 1 Use This Result [facility] Blood 04/28/2024 11:3 5 AM CDT 04/28/2024 11:35 AM CDT Result [facility] Giancarlo Durant MD LAB POCT ORDERABLES - DEVIC E Final Result Performing Organization Address [facility] Co de Phone Number [facility] [address] [place] [address] * POCT glucose (04/28/2024 7:48 AM CDT) Glucose, POC 118 70 - 199 mg/dL Glucose comment 1 Use This Result [facility] Blood 04/28/2024 7:48 AM CDT 04/28/2024 7:48 AM CDT Giancarlo Durant MD LAB POCT ORDERABLES - DEVIC E Final Result Performing Organization Address [facility] de Phone Number [address] [place] [address] * POCT glucose (04/27/2024 8:13 PM CDT) Glucose, POC 124 70 - 199 mg/dL Glucose comment 1 Use This Result [facility] Blood 04/27/2024 8:13 PM CDT 04/27/2024 8:13 PM CDT Giancarlo Durant MD LAB POCT ORDERABLES - DEVIC E Final Result Performing Organization Address [facility] de Phone Number [address] [address] * POCT glucose (04/27/2024 4:22 PM CDT) Glucose, POC 114 70 - 199 mg/dL Glucose comment 1 Use This Result [facility] Blood 04/27/2024 4:22 PM CDT 04/27/2024 4:22 PM CDT Giancarlo Durant MD LAB POCT ORDERABLES - DEVIC E Final Result Performing Organization Address [facility] Co de Phone Number [address] [place] [address] * POCT glucose (04/27/2024 11:48 AM CDT) Glucose, POC 140 70 - 199 mg/dL Glucose comment 1 Use This Result [facility] Blood 04/27/2024 11:4 8 AM CDT 04/27/2024 11:48 AM CDT Giancarlo Durant MD LAB POCT ORDERABLES - DEVIC E Final Result Performing Organization Address [facility] de Phone Number [address] [place] [address] * POCT glucose (04/27/2024 7:33 AM CDT) Glucose, POC 115 70 - 199 mg/dL Glucose comment 1 Use This Result [facility] Blood 04/27/2024 7:33 AM CDT 04/27/2024 7:33 AM CDT Giancarlo Durant MD LAB POCT ORDERABLES - DEVIC E Final Result Performing Organization Address [facility] de Phone Number [address] [place] [address] * eGFR (04/27/2024 12:42 AM CDT) eGFR [...] MD LAB BLOOD ORDERABLES Final Resul t [facility] [address] [facility] Department [place] [address] * (ABNORMAL) Differential, auto (04/27/2024 12:42 AM CDT) Pathologist [facility] Neutrophil abs 6.3 1.5 - 6.5 K/cumm Imm gran abs 0.1 0.0 - 0.1 K/cumm [facility] Lymphocyte abs 2.1 0.8 - 3.3 K/cumm [facility] Monocyte abs 0.8 0.2 - 0.8 K/cumm [facility] Eosinophil abs 0.6(H) 0.0 - 0.5 K/cumm [facility] Basophil abs 0.1 0.0 - 0.1 K/cumm [facility] Neutrophil pct 62.7 % [facility] Comment: Interpretive Data Percent cell count reference ranges are not reported, since discordance with absolute values may lead to misinterpretation of CBC data. Current Interpretive Data was last revised on 2017. Imm gran pct 1.4 % [facility] Comment: Interpretive Data Percent cell count reference ranges are not reported, since discordance with absolute values may lead to misinterpretation of CBC data. Current Interpretive Data was last revised on 2017. Lymphocyte pct 21.0 % [facility] Comment: Interpretive Data Percent cell count reference ranges are not reported, since discordance with absolute values may lead to misinterpretation of CBC data. Current Interpretive Data was last revised on 2017. Monocyte pct 8.1 % [facility] Comment: Interpretive Data Percent cell count reference ranges are not reported, since discordance with absolute values may lead to misinterpretation of CBC data. Current Interpretive Data was last revised on 2017. Eosinophil pct 5.6 % [facility] Comment: Interpretive Data Percent cell count reference ranges are not reported, since discordance with absolute values may lead to misinterpretation of CBC data. Current Interpretive Data was last revised on 2017. Basophil pct 1.2 % [facility] Comment: Interpretive Data Percent cell count reference ranges are not reported, since discordance with absolute values may lead to misinterpretation of CBC data. Current Interpretive Data was last revised on 2017. Blood 04/27/2024 12:4 2 AM CDT 04/27/2024 1:13 AM CDT Pricilla Andino MD LAB BLOOD ORDERABLES Final Resul t [place] [id number] [facility] Department [place] [address] * (ABNORMAL) CBC with auto differential (04/27/2024 12:42 AM CDT) WBC 10.0(H) 3.8 - 9.9 K/cumm Hgb 9.4(L) 11.9 - 15.5 g/dL [facility] Hct 29.5(L) 35.6 - 45.5 % [facility] Plt 270 150 - 400 K/cumm [facility] MPV 10.8 9.1 - 12.3 fL [facility] RBC 3.43(L) 3.90 - 5.20 M/cumm [facility] MCV 86.0 81.3 - 96.4 fL [facility] MCH 27.4 27.1 - 33.3 pg [facility] MCHC 31.9(L) 32.3 - 35.7 g/dL [facility] RDW CV 14.8 11.1 - 14.9 % [facility] RDW SD 46.2 35.7 - 48.1 fL [facility] NRBC abs 0.00 0.00 - 0.01 K/cumm [facility] Blood 04/27/2024 12:4 2 AM CDT 04/27/2024 1:13 AM CDT Pricilla Andino MD LAB BLOOD ORDERABLES Final Resul t [facility] [address] [facility] Department [place] [address] * Renal function panel (04/27/2024 12:42 AM CDT) Sodium 142 135 - 145 mmol/L Potassium, pl 3.6 3.3 - 4.9 mmol/L [facility] Chloride 106 97 - 110 mmol/L [facility] CO2 24 22 - 32 mmol/L [facility] Anion gap 12 2 - 15 mmol/L [facility] BUN 15 6 - 25 mg/dL [facility] Creatinine 0.70 0.60 - 1.10 mg/dL [facility] Glucose 112 70 - 199 mg/dL [facility] Comment: Interpretive Data Fasting glucose >/= 126 [...] 2022. Calcium 10.0 8.5 - 10.3 mg/dL [facility] Phosphorus, pl 3.5 2.3 - 4.5 mg/dL [facility] Albumin 4.0 3.5 - 5.0 g/dL [facility] Blood 04/27/2024 12:4 2 AM CDT 04/27/2024 1:12 AM CDT us Pricilla Andino MD LAB BLOOD ORDERABLES Final Resul t Performing Organization Address [facility] Co de Phone Number [facility] [address] [place] [address] * POCT glucose (04/26/2024 7:58 PM CDT) Glucose, POC 124 70 - 199 mg/dL Glucose comment 1 Use This Result [facility] Blood 04/26/2024 7:58 PM CDT 04/26/2024 7:58 PM CDT us Pricilla Andino MD LAB POCT ORDERABLES - DEVICE Fin al Result Performing Organization Address [facility] Co de Phone Number [address] [place] [address] * POCT glucose (04/26/2024 4:21 PM CDT) Glucose, POC 121 70 - 199 mg/dL Glucose comment 1 Use This Result [facility] Blood 04/26/2024 4:21 PM CDT 04/26/2024 4:21 PM CDT Pricilla Andino MD LAB POCT ORDERABLES - DEVICE Fin al Result Performing Organization Address City/[facility] Co de Phone Number [address] [place] [address] * POCT glucose (04/26/2024 11:11 AM CDT) Glucose, POC 136 70 - 199 mg/dL Glucose comment 1 Use This Result [facility] Blood 04/26/2024 11:1 1 AM CDT 04/26/2024 11:11 AM CDT us Pricilla Andino MD LAB POCT ORDERABLES - DEVICE Fin al Result Performing Organization Address City/[facility]/ZIP Co de Phone Number [address] [place] [address] * POCT glucose (04/26/2024 7:11 AM CDT) Glucose, POC 125 70 - 199 mg/dL Glucose comment 1 Use This Result [facility] Blood 04/26/2024 7:11 AM CDT 04/26/2024 7:11 AM CDT Pricilla Andino MD LAB POCT ORDERABLES - DEVICE Fin al Result Performing Organization Address [facility] Co de Phone Number [address] [place] [address] * POCT glucose (04/25/2024 8:23 PM CDT) Glucose, POC 136 70 - 199 mg/dL Blood 04/25/2024 8:23 PM CDT 04/25/2024 8:23 PM CDT Pricilla Andino MD LAB POCT ORDERABLES - DEVICE Fin al Result Performing Organization Address [facility] Co de Phone Number [address] [place] [address] * POCT glucose (04/25/2024 4:27 PM CDT) Glucose, POC 128 70 - 199 mg/dL Glucose comment 1 Use This Result [facility] Blood 04/25/2024 4:27 PM CDT 04/25/2024 4:27 PM CDT us Pricilla Andino MD LAB POCT ORDERABLES - DEVICE Fin al Result Performing Organization Address City/[facility] Co de Phone Number [address] [place] [address] * POCT glucose (04/25/2024 11:14 AM CDT) Glucose, POC 124 70 - 199 mg/dL Glucose comment 1 Use This Result [facility] Blood 04/25/2024 11:1 4 AM CDT 04/25/2024 11:14 AM CDT Pricilla Andino MD LAB POCT ORDERABLES - DEVICE Fin al Result Performing Organization Address [facility] de Phone Number [address] [place] [address] * POCT glucose (04/25/2024 7:33 AM CDT) Pathologist [facility] Glucose, POC 120 70 - 199 mg/dL Glucose comment 1 Use This Result [facility] Blood 04/25/2024 7:33 AM CDT 04/25/2024 7:33 AM CDT Pricilla Andino MD LAB POCT ORDERABLES - DEVICE Fin al Result Performing Organization Address [facility] de Phone Number [address] [place] [address] * eGFR (04/25/2024 6:42 AM CDT) [facility] eGFR >90 >=60 mL/min/1. 73 m2 Comment: [...] MD LAB BLOOD ORDERABLES Final Resul t [place] [id number] [facility] Department [place] [address] * (ABNORMAL) Differential, auto (04/25/2024 6:42 AM CDT) Neutrophil abs 5.6 1.5 - 6.5 K/cumm Imm gran abs 0.0 0.0 - 0.1 K/cumm [facility] Lymphocyte abs 1.9 0.8 - 3.3 K/cumm [facility] Monocyte abs 0.7 0.2 - 0.8 K/cumm [facility] Eosinophil abs 0.8(H) 0.0 - 0.5 K/cumm [facility] Basophil abs 0.1 0.0 - 0.1 K/cumm [facility] Neutrophil pct 61.4 % [facility] Comment: Interpretive Data Percent cell count reference ranges are not reported, since discordance with absolute values may lead to misinterpretation of CBC data. Current Interpretive Data was last revised on 2017. Imm gran pct 0.2 % [facility] Comment: Interpretive Data Percent cell count reference ranges are not reported, since discordance with absolute values may lead to misinterpretation of CBC data. Current Interpretive Data was last revised on 2017. Lymphocyte pct 21.0 % [facility] Comment: Interpretive Data Percent cell count reference ranges are not reported, since discordance with absolute values may lead to misinterpretation of CBC data. Current Interpretive Data was last revised on 2017. Monocyte pct 7.1 % [facility] Comment: Interpretive Data Percent cell count reference ranges are not reported, since discordance with absolute values may lead to misinterpretation of CBC data. Current Interpretive Data was last revised on 2017. Eosinophil pct 8.9 % [facility] Comment: Interpretive Data Percent cell count reference ranges are not reported, since discordance with absolute values may lead to misinterpretation of CBC data. Current Interpretive Data was last revised on 2017. Basophil pct 1.4 % [facility] Comment: Interpretive Data Percent cell count reference ranges are not reported, since discordance with absolute values may lead to misinterpretation of CBC data. Current Interpretive Data was last revised on 2017. Blood 04/25/2024 6:42 AM CDT 04/25/2024 7:03 AM CDT Pricilla Andino MD LAB BLOOD ORDERABLES Final Resul t [facility] [address] [facility] Department [place] [address] * (ABNORMAL) CBC with auto differential (04/25/2024 6:42 AM CDT) WBC 9.1 3.8 - 9.9 K/cumm Hgb 9.1(L) 11.9 - 15.5 g/dL [facility] Hct 28.7(L) 35.6 - 45.5 % [facility] Plt 259 150 - 400 K/cumm [facility] MPV 10.5 9.1 - 12.3 fL [facility] RBC 3.32(L) 3.90 - 5.20 M/cumm [facility] MCV 86.4 81.3 - 96.4 fL [facility] MCH 27.4 27.1 - 33.3 pg [facility] MCHC 31.7(L) 32.3 - 35.7 g/dL [facility] RDW CV 14.6 11.1 - 14.9 % [facility] RDW SD 46.5 35.7 - 48.1 fL [facility] NRBC abs 0.00 0.00 - 0.01 K/cumm [facility] Blood 04/25/2024 6:42 AM CDT 04/25/2024 7:03 AM CDT Pricilla Andino MD LAB BLOOD ORDERABLES Final Resul t Performing Organization Address City/[facility] Co de Phone Number [facility] [address] [place] [address] * Renal function panel (04/25/2024 6:42 AM CDT) [facility] Sodium 142 135 - 145 mmol/L Potassium, pl 3.6 3.3 - 4.9 mmol/L [facility] Chloride 107 97 - 110 mmol/L [facility] CO2 24 22 - 32 mmol/L [facility] Anion gap 11 2 - 15 mmol/L [facility] BUN 12 6 - 25 mg/dL [facility] Creatinine 0.71 0.60 - 1.10 mg/dL [facility] Glucose 117 70 - 199 mg/dL [facility] Comment: Interpretive Data Fasting glucose >/= 126 [...] 2022. Calcium 9.6 8.5 - 10.3 mg/dL [facility] Phosphorus, pl 3.1 2.3 - 4.5 mg/dL [facility] Albumin 3.7 3.5 - 5.0 g/dL [facility] Blood 04/25/2024 6:42 AM CDT 04/25/2024 7:03 AM CDT us Pricilla Andino MD LAB BLOOD ORDERABLES Final Resul t Performing Organization Address City/[facility]/ZIP Co de Phone Number [address] [place] [address] * POCT glucose (04/24/2024 8:03 PM CDT) Glucose, POC 168 70 - 199 mg/dL Glucose comment 1 Use This Result [facility] Blood 04/24/2024 8:03 PM CDT 04/24/2024 8:03 PM CDT Pricilla Andino MD LAB POCT ORDERABLES - DEVICE Fin al Result Performing Organization Address [facility] de Phone Number [address] [place] [address] * POCT glucose (04/24/2024 4:35 PM CDT) Glucose, POC 123 70 - 199 mg/dL Glucose comment 1 Use This Result [facility] Blood 04/24/2024 4:35 PM CDT 04/24/2024 4:35 PM CDT Pricilla Andino MD LAB POCT ORDERABLES - DEVICE Fin al Result Performing Organization Address [facility] de Phone Number [address] [address] * CT Head WO Contrast (04/24/2024 4:25 [...] D: ??04/24/2024 5:25 PM T: Report ID: [id number] [place] Location: [id number] Procedure Note Steven Garcia MD - 04/24/2024 [...] Steven Garcia M.D. NICOLAS T: Report ID: [id number] [place] Location: [id number] us Arpan Rodgers MD IMG CT PROCEDURES Fi nal Result * POCT glucose (04/24/2024 11:47 AM CDT) Glucose, POC 128 70 - 199 mg/dL Glucose comment 1 Use This Result [facility] Blood 04/24/2024 11:4 7 AM CDT 04/24/2024 11:47 AM CDT us Pricilla Andino MD LAB POCT ORDERABLES - DEVICE Fin al Result [facility] [place] [address] [facility] Department [place] [address] * US Carotids Duplex Bilateral (04/24/2024 9:07 AM CDT) Anatomical Region Laterality Modality Vascular Bilateral Ultrasound 04/24/2024 Narrative 04/24/2024 12:09 PM CDT [employer] Job ID: [id number] [employer] Document ID: [id number] Dictated date/time: [id number] CAROTID DUPLEX. REASON FOR EXAM Slurred speech. [...] subclavian arterial stenosis. Job ID/Internal Job ID: [id number] us [place] [employer] AIDE IMG US PROCEDURES Final Result * POCT glucose (04/24/2024 7:29 AM CDT) Glucose, POC 123 70 - 199 mg/dL Glucose comment 1 Use This Result [facility] Blood 04/24/2024 7:29 AM CDT 04/24/2024 7:29 AM CDT us Pricilla Andino MD LAB POCT ORDERABLES - DEVICE Fin al Result Performing Organization Address [facility] de Phone Number [facility] [address] [place] [address] * eGFR (04/24/2024 7:01 AM CDT) eGFR [...] ORDERABLES Final Resul t Performing Organization Address [facility] Co de Phone Number [facility] [address] [place] [address] * (ABNORMAL) Differential, auto (04/24/2024 7:01 AM CDT) Pathologist [facility] Neutrophil abs 5.2 1.5 - 6.5 K/cumm Imm gran abs 0.0 0.0 - 0.1 K/cumm [facility] Lymphocyte abs 1.8 0.8 - 3.3 K/cumm [facility] Monocyte abs 0.6 0.2 - 0.8 K/cumm [facility] Eosinophil abs 0.8(H) 0.0 - 0.5 K/cumm [facility] Basophil abs 0.1 0.0 - 0.1 K/cumm [facility] Neutrophil pct 61.1 % [facility] Comment: Interpretive Data Percent cell count reference ranges are not reported, since discordance with absolute values may lead to misinterpretation of CBC data. Current Interpretive Data was last revised on 2017. Imm gran pct 0.2 % [facility] Comment: Interpretive Data Percent cell count reference ranges are not reported, since discordance with absolute values may lead to misinterpretation of CBC data. Current Interpretive Data was last revised on 2017. Lymphocyte pct 20.8 % [facility] Comment: Interpretive Data Percent cell count reference ranges are not reported, since discordance with absolute values may lead to misinterpretation of CBC data. Current Interpretive Data was last revised on 2017. Monocyte pct 6.8 % [facility] Comment: Interpretive Data Percent cell count reference ranges are not reported, since discordance with absolute values may lead to misinterpretation of CBC data. Current Interpretive Data was last revised on 2017. Eosinophil pct 9.9 % [facility] Comment: Interpretive Data Percent cell count reference ranges are not reported, since discordance with absolute values may lead to misinterpretation of CBC data. Current Interpretive Data was last revised on 2017. Basophil pct 1.2 % [facility] Comment: Interpretive Data Percent cell count reference ranges are not reported, since discordance with absolute values may lead to misinterpretation of CBC data. Current Interpretive Data was last revised on 2017. Blood 04/24/2024 7:01 AM CDT 04/24/2024 7:29 AM CDT Pricilla Andino MD LAB BLOOD ORDERABLES Final Resul t Performing Organization Address [facility] de Phone Number [address] [address] * (ABNORMAL) CBC with auto differential (04/24/2024 7:01 AM CDT) WBC 8.4 3.8 - 9.9 K/cumm Hgb 9.0(L) 11.9 - 15.5 g/dL [facility] Hct 28.3(L) 35.6 - 45.5 % [facility] Plt 268 150 - 400 K/cumm [facility] MPV 10.3 9.1 - 12.3 fL [facility] RBC 3.33(L) 3.90 - 5.20 M/cumm [facility] MCV 85.0 81.3 - 96.4 fL [facility] MCH 27.0(L) 27.1 - 33.3 pg [facility] MCHC 31.8(L) 32.3 - 35.7 g/dL [facility] RDW CV 14.7 11.1 - 14.9 % [facility] RDW SD 45.1 35.7 - 48.1 fL [facility] NRBC abs 0.00 0.00 - 0.01 K/cumm [facility] Blood 04/24/2024 7:01 AM CDT 04/24/2024 7:29 AM CDT Pricilla Andino MD LAB BLOOD ORDERABLES Final Resul t Performing Organization Address [facility] de Phone Number [address] [address] * Magnesium (04/24/2024 7:01 AM CDT) Pathologist [facility] Magnesium 2.3 1.4 - 2.5 mg/dL Blood 04/24/2024 7:01 AM CDT 04/24/2024 7:29 AM CDT Jammie Dickson NP LAB BLOOD ORDERABLES Fi nal Result Performing Organization Address [facility]/State/ZIP Co de Phone Number [facility] [place] [address] * Renal function panel (04/24/2024 7:01 AM CDT) [facility] Sodium 143 135 - 145 mmol/L Potassium, pl 4.1 3.3 - 4.9 mmol/L [facility] Chloride 109 97 - 110 mmol/L [facility] CO2 23 22 - 32 mmol/L [facility] Anion gap 11 2 - 15 mmol/L [facility] BUN 17 6 - 25 mg/dL [facility] Creatinine 0.72 0.60 - 1.10 mg/dL [facility] Glucose 106 70 - 199 mg/dL [facility] Comment: Interpretive Data Fasting glucose >/= 126 [...] 2022. Calcium 9.3 8.5 - 10.3 mg/dL [facility] Phosphorus, pl 2.9 2.3 - 4.5 mg/dL [facility] Albumin 3.7 3.5 - 5.0 g/dL [facility] Blood 04/24/2024 7:01 AM CDT 04/24/2024 7:29 AM CDT Pricilla Andino MD LAB BLOOD ORDERABLES Final Resul t [facility] [address] [place] [address] * ECG 12 lead (04/24/2024 12:14 AM CDT) [facility] Ventricular Rate EKG/Min 80 BPM [facility] Atrial Rate 80 BPM [facility] LA-Interval (MSEC) 142 ms [facility] QRS-Interval (MSEC) 76 ms [facility] QT-Interval (MSEC) 366 ms [facility] QTc 422 ms [facility] P Anderson 52 degrees [facility] R Anderson 14 degrees [facility] T Anderson 86 degrees [facility] Diagnosis Normal sinus rhythm Nonspecific T wave abnormality No previous ECGs available Confirmed by SULTAN REAL M.D. ([id number]) on 04/24/2024 8:40:31 PM [facility] 04/24/2024 12:1 4 AM CDT 04/24/2024 8:40 PM CDT Jammie Dickson PERSONAL CLOTHING LAUNDRY AIDE ECG ORDERABLES Final R esult Performing Organization Address [facility] de Phone Number [facility] * POCT glucose (04/23/2024 8:31 PM CDT) Glucose, POC 132 70 - 199 mg/dL Blood 04/23/2024 8:31 PM CDT 04/23/2024 8:31 PM CDT Pricilla Andino MD LAB POCT ORDERABLES - DEVICE Fin al Result Performing Organization Address [facility] de Phone Number [address] [place] [address] * POCT glucose (04/23/2024 4:55 PM CDT) Glucose, POC 113 70 - 199 mg/dL Glucose comment 1 Use This Result [facility] Blood 04/23/2024 4:55 PM CDT 04/23/2024 4:55 PM CDT Pricilla Andino MD LAB POCT ORDERABLES - DEVICE Fin al Result Performing Organization Address [facility] Co de Phone Number [address] [place] [address] * POCT glucose (04/23/2024 11:54 AM CDT) Glucose, POC 160 70 - 199 mg/dL Glucose comment 1 Use This Result [facility] Blood 04/23/2024 11:5 4 AM CDT 04/23/2024 11:54 AM CDT Pricilla Andino MD LAB POCT ORDERABLES - DEVICE Fin al Result Performing Organization Address City/State/[facility] Co de Phone Number [facility] [place] [address] [facility] Department [place] [address] * eGFR (04/23/2024 10:24 AM CDT) Pathologist [facility] eGFR 85 >=60 mL/min/1. 73 m2 Comment: [...] LAB BLOOD ORDERABLES Final Resul t [facility] [address] [facility] Department [place] [address] * (ABNORMAL) Differential, auto (04/23/2024 10:24 AM CDT) Neutrophil abs 5.4 1.5 - 6.5 K/cumm Imm gran abs 0.0 0.0 - 0.1 K/cumm [facility] Lymphocyte abs 1.5 0.8 - 3.3 K/cumm [facility] Monocyte abs 0.5 0.2 - 0.8 K/cumm [facility] Eosinophil abs 0.6(H) 0.0 - 0.5 K/cumm [facility] Basophil abs 0.1 0.0 - 0.1 K/cumm [facility] Neutrophil pct 66.7 % [facility] Comment: Interpretive Data Percent cell count reference ranges are not reported, since discordance with absolute values may lead to misinterpretation of CBC data. Current Interpretive Data was last revised on 2017. Imm gran pct 0.1 % [facility] Comment: Interpretive Data Percent cell count reference ranges are not reported, since discordance with absolute values may lead to misinterpretation of CBC data. Current Interpretive Data was last revised on 2017. Lymphocyte pct 18.3 % [facility] Comment: Interpretive Data Percent cell count reference ranges are not reported, since discordance with absolute values may lead to misinterpretation of CBC data. Current Interpretive Data was last revised on 2017. Monocyte pct 6.1 % [facility] Comment: Interpretive Data Percent cell count reference ranges are not reported, since discordance with absolute values may lead to misinterpretation of CBC data. Current Interpretive Data was last revised on 2017. Eosinophil pct 7.7 % [facility] Comment: Interpretive Data Percent cell count reference ranges are not reported, since discordance with absolute values may lead to misinterpretation of CBC data. Current Interpretive Data was last revised on 2017. Basophil pct 1.1 % [facility] Comment: Interpretive Data Percent cell count reference ranges are not reported, since discordance with absolute values may lead to misinterpretation of CBC data. Current Interpretive Data was last revised on 2017. Blood 04/23/2024 10:2 4 AM CDT 04/23/2024 10:55 AM CDT Pricilla Andino MD LAB BLOOD ORDERABLES Final Resul t Performing Organization Address [facility] Co de Phone Number [facility] [address] [place] [address] * (ABNORMAL) CBC with auto differential (04/23/2024 10:24 AM CDT) WBC 8.2 3.8 - 9.9 K/cumm Hgb 9.9(L) 11.9 - 15.5 g/dL [facility] Hct 30.7(L) 35.6 - 45.5 % [facility] Plt 290 150 - 400 K/cumm [facility] MPV 10.4 9.1 - 12.3 fL [facility] RBC 3.59(L) 3.90 - 5.20 M/cumm [facility] MCV 85.5 81.3 - 96.4 fL [facility] MCH 27.6 27.1 - 33.3 pg [facility] MCHC 32.2(L) 32.3 - 35.7 g/dL [facility] RDW CV 14.6 11.1 - 14.9 % [facility] RDW SD 45.0 35.7 - 48.1 fL [facility] NRBC abs 0.00 0.00 - 0.01 K/cumm [facility] Blood 04/23/2024 10:2 4 AM CDT 04/23/2024 10:55 AM CDT Pricilla Andino MD LAB BLOOD ORDERABLES Final Resul t Performing Organization Address City/[facility]/ZIP Co de Phone Number [address] [facility] [place], [place] [id number] * Renal function panel (04/23/2024 10:24 AM CDT) Sodium 139 135 - 145 mmol/L Potassium, pl 3.4 3.3 - 4.9 mmol/L [facility] Chloride 104 97 - 110 mmol/L [facility] CO2 23 22 - 32 mmol/L [facility] Anion gap 12 2 - 15 mmol/L [facility] BUN 17 6 - 25 mg/dL [facility] Creatinine 0.78 0.60 - 1.10 mg/dL [facility] Glucose 174 70 - 199 mg/dL [facility] Comment: Interpretive Data Fasting glucose >/= 126 [...] 2022. Calcium 10.0 8.5 - 10.3 mg/dL [facility] Phosphorus, pl 3.6 2.3 - 4.5 mg/dL [facility] Albumin 3.9 3.5 - 5.0 g/dL [facility] Blood 04/23/2024 10:2 4 AM CDT 04/23/2024 10:55 AM CDT Pricilla Andino MD LAB BLOOD ORDERABLES Final Resul t Performing Organization Address City/[facility] Co de Phone Number [address] [place] [address] * POCT glucose (04/23/2024 8:02 AM CDT) [facility] Glucose, POC 136 70 - 199 mg/dL Blood 04/23/2024 8:02 AM CDT 04/23/2024 8:02 AM CDT Pricilla Andino MD LAB POCT ORDERABLES - DEVICE Fin al Result Performing Organization Address City/[facility] Co de Phone Number [address] [place] [address] * POCT glucose (04/22/2024 7:53 PM CDT) Glucose, POC 134 70 - 199 mg/dL Glucose comment 1 Use This Result [facility] Blood 04/22/2024 7:53 PM CDT 04/22/2024 7:53 PM CDT Pricilla Andino MD LAB POCT ORDERABLES - DEVICE Fin al Result [facility] [place] [address] [facility] Department [place] [address] * CTA Chest Abdomen Pelvis (04/22/2024 5:25 [...] D: ??04/22/2024 7:42 PM T: Report ID: [id number] Reading Location: ??[id number] Procedure Note Channing Lopez MD - 04/22/2024 [...] by Channing Lopez M.D. T: Report ID: [id number] [place] Location: [place] [address] [place] Pricilla Andino MD IMG CT PROCEDURES Final Result * POCT glucose (04/22/2024 4:03 PM CDT) Glucose, POC 167 70 - 199 mg/dL Glucose comment 1 Use This Result [facility] Blood 04/22/2024 4:03 PM CDT 04/22/2024 4:03 PM CDT us Pricilla Andino MD LAB POCT ORDERABLES - DEVICE Fin al Result [facility] [place] [address] [facility] Department [place] [address] * POCT glucose (04/22/2024 12:02 PM CDT) Glucose, POC 123 70 - 199 mg/dL Glucose comment 1 Use This Result [facility] Blood 04/22/2024 12:0 2 PM CDT 04/22/2024 12:02 PM CDT Pricilla Andino MD LAB POCT ORDERABLES - DEVICE Fin al Result [facility] [address] [facility] Department of Laboratories [place], [place] [id number] * TRANSESOPHAGEAL ECHO (SHIVAM) W DOPPLER/CF WO CONTRAST (04/22/2024 10:00 AM CDT) Anatomical Region Laterality Modality Ultrasound 04/22/2024 10:0 0 AM CDT Narrative 04/22/2024 10:57 AM CDT ? Version 2 ?Transesophageal Echocardiogram + ----- + :Name: LYNN RUTH JStudy Date: 04/22/2024 ?Status: MHB ?: : ?Patient Location: [facility] 2 SOUTH^[id number]^Height: 64 in ?: : ?Weight: 127 lbBP: [...] or regurgitation. There is mild TR, trace LA, slight restriction of mitral valve anterior leaflet [...] Date: 04/22/2024Status: MHB : : Patient Location: [address]^[id number]^Height: 64 in : : : 127 lbBP: [...] stenosisor regurgitation. There is mild TR, trace LA, slight restriction of mitralvalve anterior leaflet with [...] - DEVICE Fin al Result [facility] [address] [facility] Department [place] [address] * eGFR (04/22/2024 7:16 AM [...] MD LAB BLOOD ORDERABLES Final Resul t [facility] [address] [facility] Department [place] [address] * (ABNORMAL) Differential, auto (04/22/2024 7:16 AM CDT) Neutrophil abs 2.5 1.5 - 6.5 K/cumm Imm gran abs 0.0 0.0 - 0.1 K/cumm [facility] Lymphocyte abs 1.8 0.8 - 3.3 K/cumm [facility] Monocyte abs 0.6 0.2 - 0.8 K/cumm [facility] Eosinophil abs 0.8(H) 0.0 - 0.5 K/cumm [facility] Basophil abs 0.1 0.0 - 0.1 K/cumm [facility] Neutrophil pct 42.8 % [facility] Comment: Interpretive Data Percent cell count reference ranges are not reported, since discordance with absolute values may lead to misinterpretation of CBC data. Current Interpretive Data was last revised on 2017. Imm gran pct 0.2 % [facility] Comment: Interpretive Data Percent cell count reference ranges are not reported, since discordance with absolute values may lead to misinterpretation of CBC data. Current Interpretive Data was last revised on 2017. Lymphocyte pct 31.5 % [facility] Comment: Interpretive Data Percent cell count reference ranges are not reported, since discordance with absolute values may lead to misinterpretation of CBC data. Current Interpretive Data was last revised on 2017. Monocyte pct 10.2 % [facility] Comment: Interpretive Data Percent cell count reference ranges are not reported, since discordance with absolute values may lead to misinterpretation of CBC data. Current Interpretive Data was last revised on 2017. Eosinophil pct 13.9 % [facility] Comment: Interpretive Data Percent cell count reference ranges are not reported, since discordance with absolute values may lead to misinterpretation of CBC data. Current Interpretive Data was last revised on 2017. Basophil pct 1.4 % [facility] Comment: Interpretive Data Percent cell count reference ranges are not reported, since discordance with absolute values may lead to misinterpretation of CBC data. Current Interpretive Data was last revised on 2017. Blood 04/22/2024 7:16 AM CDT 04/22/2024 8:12 AM CDT Pricilla Andino MD LAB BLOOD ORDERABLES Final Resul t Performing Organization Address [facility] Co de Phone Number [address] [employer] [place], [place] [phone] * (ABNORMAL) CBC with auto differential (04/22/2024 7:16 AM CDT) WBC 5.8 3.8 - 9.9 K/cumm Hgb 8.8(L) 11.9 - 15.5 g/dL [facility] Hct 27.9(L) 35.6 - 45.5 % [facility] Plt 262 150 - 400 K/cumm [facility] MPV 10.6 9.1 - 12.3 fL [facility] RBC 3.21(L) 3.90 - 5.20 M/cumm [facility] MCV 86.9 81.3 - 96.4 fL [facility] MCH 27.4 27.1 - 33.3 pg [facility] MCHC 31.5(L) 32.3 - 35.7 g/dL [facility] RDW CV 14.4 11.1 - 14.9 % [facility] RDW SD 45.1 35.7 - 48.1 fL [facility] NRBC abs 0.00 0.00 - 0.01 K/cumm [facility] Blood 04/22/2024 7:16 AM CDT 04/22/2024 8:12 AM CDT Pricilla Andino MD LAB BLOOD ORDERABLES Final Resul t Performing Organization Address City/[facility] Co de Phone Number [address] [place] [address] * Renal function panel (04/22/2024 7:16 AM CDT) Pathologist [facility] Sodium 140 135 - 145 mmol/L Potassium, pl 3.8 3.3 - 4.9 mmol/L [facility] Chloride 105 97 - 110 mmol/L [facility] CO2 27 22 - 32 mmol/L [facility] Anion gap 8 2 - 15 mmol/L [facility] BUN 13 6 - 25 mg/dL [facility] Creatinine 0.81 0.60 - 1.10 mg/dL [facility] Glucose 117 70 - 199 mg/dL [facility] Comment: Interpretive Data Fasting glucose >/= 126 [...] 2022. Calcium 9.6 8.5 - 10.3 mg/dL [facility] Phosphorus, pl 4.3 2.3 - 4.5 mg/dL [facility] Albumin 3.7 3.5 - 5.0 g/dL [facility] Blood 04/22/2024 7:16 AM CDT 04/22/2024 8:12 AM CDT us Pricilla Andino MD LAB BLOOD ORDERABLES Final Resul t [facility] [address] [facility] Department [place] [address] * POCT glucose (04/21/2024 7:59 PM CDT) Glucose, POC 176 70 - 199 mg/dL Glucose comment 1 Use This Result [facility] Blood 04/21/2024 7:59 PM CDT 04/21/2024 7:59 PM CDT Pricilla Andino MD LAB POCT ORDERABLES - DEVICE Fin al Result Performing Organization Address City/[facility] Co de Phone Number NAD[facility] [address] [place] [address] * POCT glucose (04/21/2024 4:57 PM CDT) Glucose, POC 139 70 - 199 mg/dL Glucose comment 1 Use This Result [facility] Blood 04/21/2024 4:57 PM CDT 04/21/2024 4:57 PM CDT Pricilla Andino MD LAB POCT ORDERABLES - DEVICE Fin al Result Performing Organization Address [facility] de Phone Number NAD[facility] [address] [place] [address] * EEG (04/21/2024 1:48 PM CDT) Anatomical [...] Correlation with clinical findings is needed. Result [facility] Sailaja ZARATE NEUROLOGY ORDERABLES Final Result * POCT glucose (04/21/2024 12:05 PM CDT) Glucose, POC 152 70 - 199 mg/dL Glucose comment 1 Use This Result [facility] Blood 04/21/2024 12:0 5 PM CDT 04/21/2024 12:05 PM CDT Result [facility] Pricilla Andino MD LAB POCT ORDERABLES - DEVICE Fin al Result Performing Organization Address [facility] de Phone Number [address] [place] [address] * POCT glucose (04/21/2024 8:05 AM CDT) Glucose, POC 116 70 - 199 mg/dL Glucose comment 1 Use This Result [facility] Blood 04/21/2024 8:05 AM CDT 04/21/2024 8:05 AM CDT Result [facility] Pricilla Andino MD LAB POCT ORDERABLES - DEVICE Fin al Result Performing Organization Address [facility] de Phone Number [address] [place] [address] * POCT glucose (04/20/2024 9:30 PM CDT) Glucose, POC 115 70 - 199 mg/dL Glucose comment 1 Use This Result [facility] Blood 04/20/2024 9:30 PM CDT 04/20/2024 9:30 PM CDT Result [facility] Pricilla Andino MD LAB POCT ORDERABLES - DEVICE Fin al Result Performing Organization Address [facility] Co de Phone Number NAD[facility] [place] [address] * POCT glucose (04/20/2024 4:26 PM CDT) Glucose, POC 141 70 - 199 mg/dL Glucose comment 1 Use This Result [facility] Blood 04/20/2024 4:26 PM CDT 04/20/2024 4:26 PM CDT Pricilla Andino MD LAB POCT ORDERABLES - DEVICE Fin al Result Performing Organization Address [facility] Co de Phone Number [facility] [place] [address] * CTA Head Neck W WO Contrast [...] same day for detailed evaluation of bilateral, rfbgy-koyubwc-efqj-left, acute infarcts superimposed on constellation of chronic findings. 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 ??Patent left PHYSICAL SCIENCE PROFESSOR, noting variable, to include severe, stenosis along [...] same day for detailed evaluation of bilateral, msoug-wkarzvd-rpka-left, acute infarcts superimposed on constellation of chronic findings. 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 Patentleft PHYSICAL SCIENCE PROFESSOR, noting variable, to include severe, stenosis along [...] earlier same day fordetailed evaluation of bilateral, gwwzw-ixgtefw-izfu-left, acute infarctssuperimposed on constellation of chronic findings. 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 NICOLAS T: Report ID: [id number] Reading Location: [id number] us Arpan Rodgers MD IMG CT PROCEDURES Fi nal Result * POCT glucose (04/20/2024 12:12 PM CDT) Glucose, POC 117 70 - 199 mg/dL Glucose comment 1 Use This Result [facility] Blood 04/20/2024 12:1 2 PM CDT 04/20/2024 12:12 PM CDT us Pricilla Andino MD LAB POCT ORDERABLES - DEVICE Fin al Result [facility] [address] [facility] Department of [place] [address] * MRI Brain WO Contrast [...] collection. ??Normal size ventricles. BRAIN VOLUME: ?? Hpaa-wj-eismdxct cerebral volume loss. PITUITARY: ?? Unremarkable. VASCULATURE: [...] D: ??04/20/2024 12:44 PM T: Report ID: [id number] Reading Location: ??[id number] Procedure Note Angel Kyle MD - 04/20/2024 EXAM DESCRIPTION: MRI BRAIN WO CONTRAST REASON FOR STUDY: Hx of recent CVA, pt has increased weakness anddecreased mental status. TECHNIQUE: Multiplanar imaging includes non-contrasted T1, T2, FLAIR, and diffusion with ADC map sequences. Additional sequence(s) sensitive Snoball. Images stored on PACS. COMPARISON: Head CT [...] extra-axial fluid collection. Normalsize ventricles. BRAIN VOLUME: Cqfm-jq-jyvsfcgs cerebral volume loss. PITUITARY: Unremarkable. VASCULATURE: Skull [...] Angel Kyle M.D. AG T: Report ID: [id number] Reading Location: [id number] Jammie Dickson PERSONAL CLOTHING LAUNDRY AIDE IMG MRI PROCEDURES Marcelle l Result [...] D: ??04/20/2024 9:03 AM T: Report ID: [id number] Reading Location: ??[id number] Procedure Note Johan Wilson MD - 04/20/2024 [...] Johan Wilson M.D. MM T: Report ID: [id number] Reading Location: [id number] Jammie Dickson NP IMG XR PROCEDURES Final Result * POCT glucose (04/20/2024 8:09 AM CDT) Glucose, POC 133 70 - 199 mg/dL Glucose comment 1 Use This Result [facility] Blood 04/20/2024 8:09 AM CDT 04/20/2024 8:09 AM CDT Pricilla Andino MD LAB POCT ORDERABLES - DEVICE Fin al Result [facility] [address] [facility] Department [place] [address] * Lactate (04/20/2024 4:24 AM CDT) Lactate 0.8 0.7 - 2.0 mmol/L Blood 04/20/2024 4:24 AM CDT 04/20/2024 4:32 AM CDT us Jammie L. Kustermann PERSONAL CLOTHING LAUNDRY AIDE LAB BLOOD ORDERABLES Fi nal Result Performing Organization Address City/[facility] Co de Phone Number NADINE [address] [employer] [place] [address] * eGFR (04/20/2024 4:24 AM CDT) [facility] eGFR 67 >=60 mL/min/1. 73 m2 Comment: [...] 04/20/2024 4:32 AM CDT us Jammie Dickson PERSONAL CLOTHING LAUNDRY AIDE LAB BLOOD ORDERABLES Fi nal Result Performing Organization Address City/[facility]/ZIP Co de Phone Number NADINE [address] Department [place] [address] * (ABNORMAL) Differential, auto (04/20/2024 4:24 AM CDT) Neutrophil abs 4.2 1.5 - 6.5 K/cumm Imm gran abs 0.0 0.0 - 0.1 K/cumm [facility] Lymphocyte abs 1.6 0.8 - 3.3 K/cumm [facility] Monocyte abs 0.7 0.2 - 0.8 K/cumm [facility] Eosinophil abs 0.7(H) 0.0 - 0.5 K/cumm [facility] Basophil abs 0.1 0.0 - 0.1 K/cumm [facility] Neutrophil pct 57.2 % [facility] Comment: Interpretive Data Percent cell count reference ranges are not reported, since discordance with absolute values may lead to misinterpretation of CBC data. Current Interpretive Data was last revised on 2017. Imm gran pct 0.3 % [facility] Comment: Interpretive Data Percent cell count reference ranges are not reported, since discordance with absolute values may lead to misinterpretation of CBC data. Current Interpretive Data was last revised on 2017. Lymphocyte pct 22.1 % [facility] Comment: Interpretive Data Percent cell count reference ranges are not reported, since discordance with absolute values may lead to misinterpretation of CBC data. Current Interpretive Data was last revised on 2017. Monocyte pct 9.5 % [facility] Comment: Interpretive Data Percent cell count reference ranges are not reported, since discordance with absolute values may lead to misinterpretation of CBC data. Current Interpretive Data was last revised on 2017. Eosinophil pct 9.5 % [facility] Comment: Interpretive Data Percent cell count reference ranges are not reported, since discordance with absolute values may lead to misinterpretation of CBC data. Current Interpretive Data was last revised on 2017. Basophil pct 1.4 % [facility] Comment: Interpretive Data Percent cell count reference ranges are not reported, since discordance with absolute values may lead to misinterpretation of CBC data. Current Interpretive Data was last revised on 2017. Blood 04/20/2024 4:24 AM CDT 04/20/2024 4:32 AM CDT Jammie Dickson PERSONAL CLOTHING LAUNDRY AIDE LAB BLOOD ORDERABLES Fi nal Result Performing Organization Address [facility] de Phone Number [address] [place] [address] * Thyroid Function [place] (04/20/2024 4:24 AM CDT) [facility] TSH 1.80 0.30 - 4.20 mcIUnit/mL Blood 04/20/2024 4:24 AM CDT 04/20/2024 4:32 AM CDT Jammie Dickson PERSONAL CLOTHING LAUNDRY AIDE LAB BLOOD ORDERABLES Fi nal Result Performing Organization Address [facility] de Phone Number [address] [address] * (ABNORMAL) CBC with auto differential (04/20/2024 4:24 AM CDT) [facility] WBC 7.4 3.8 - 9.9 K/cumm Hgb 9.2(L) 11.9 - 15.5 g/dL [facility] Hct 29.6(L) 35.6 - 45.5 % [facility] Plt 252 150 - 400 K/cumm [facility] MPV 10.5 9.1 - 12.3 fL [facility] RBC 3.43(L) 3.90 - 5.20 M/cumm [facility] MCV 86.3 81.3 - 96.4 fL [facility] MCH 26.8(L) 27.1 - 33.3 pg [facility] MCHC 31.1(L) 32.3 - 35.7 g/dL [facility] RDW CV 14.3 11.1 - 14.9 % [facility] RDW SD 44.2 35.7 - 48.1 fL [facility] NRBC abs 0.00 0.00 - 0.01 K/cumm [facility] Blood 04/20/2024 4:24 AM CDT 04/20/2024 4:32 AM CDT us Jammie Dickson PERSONAL CLOTHING LAUNDRY AIDE LAB BLOOD ORDERABLES Fi nal Result Performing Organization Address [facility]/ZIP Co de Phone Number HU[address] [place] [address] * (ABNORMAL) Vitamin D 25 hydroxy (04/20/2024 4:24 AM CDT) Pathologist [facility] Vitamin D 25-OH 13.0(L) 30.0 - 80.0 ng/mL Blood 04/20/2024 4:24 AM CDT 04/20/2024 4:32 AM CDT us Jammie Dickson PERSONAL CLOTHING LAUNDRY AIDE LAB BLOOD ORDERABLES Fi nal Result Performing Organization Address [facility] Co de Phone Number [address] [place] [address] * Phosphorus (04/20/2024 4:24 AM CDT) Pathologist [facility] Phosphorus, pl 3.4 2.3 - 4.5 mg/dL Blood 04/20/2024 4:24 AM CDT 04/20/2024 4:32 AM CDT us Jammie Dickson PERSONAL CLOTHING LAUNDRY AIDE LAB BLOOD ORDERABLES Fi nal Result Performing Organization Address [facility] Co de Phone Number [address] [place] [address] * Magnesium (04/20/2024 4:24 AM CDT) [facility] Magnesium 1.9 1.4 - 2.5 mg/dL Blood 04/20/2024 4:24 AM CDT 04/20/2024 4:32 AM CDT us Jammie Dickson PERSONAL CLOTHING LAUNDRY AIDE LAB BLOOD ORDERABLES Fi nal Result Performing Organization Address City/[facility] Co de Phone Number [address] [place] [address] * (ABNORMAL) Hemoglobin A1c (04/20/2024 4:24 AM CDT) [facility] Hgb A1C 6.2(H) 4.0 - 5.6 % Estimated Average Glucose 131 mg/dL [facility] Comment: The ADA recommends reporting an estimated Average Glucose (eAG) with all Hemoglobin A1c results using the equation derived from a study of 507 normal and diabetic adults. ??Minority populations were underrepresented and children were not included. ?? (Diabetes Care 31:0628-7506, 2008). ??The eAG is not equivalent to a fasting glucose. Blood 04/20/2024 4:24 AM CDT 04/20/2024 4:32 AM CDT us Jammie Dickson NP LAB BLOOD ORDERABLES Fi nal Result Performing Organization Address [facility] de Phone Number [address] [place] [address] * Vitamin B12 (04/20/2024 4:24 AM CDT) [facility] Vitamin B12 672 230 - 1,250 pg/mL Blood 04/20/2024 4:24 AM CDT 04/20/2024 4:32 AM CDT Jammie Dickson NP LAB BLOOD ORDERABLES Fi nal Result Performing Organization Address [facility] de Phone Number [address] [address] * Ammonia (04/20/2024 4:24 AM CDT) [facility] Ammonia <10 <=50 mcmol/L Comment: Please note on 11/18/2023 the unit of measure changed from mcg/dL to mcmol/L. Current Interpretive Data was last revised on 2023. Blood 04/20/2024 4:24 AM CDT 04/20/2024 4:32 AM CDT us Jammie Dickson NP LAB BLOOD ORDERABLES Fi nal Result NADINE [address] [facility] Department [place] [address] * (ABNORMAL) Lipid panel (04/20/2024 4:24 AM [...] NCEP Expert Panel. Circulation 2004;110:227 3. Javi Curz et al. KIM Cardiol. 2020 November 10;5(5):540-548. [...] last revised on 2018. Chol/HDL ratio 3 [facility] Blood 04/20/2024 4:24 AM CDT 04/20/2024 4:32 AM CDT Jammie Dickson PERSONAL CLOTHING LAUNDRY AIDE LAB BLOOD ORDERABLES Fi nal Result [facility] [address] [facility] Department of Laboratories [place] [id number] * (ABNORMAL) Comprehensive metabolic panel (04/20/2024 4:24 AM CDT) Sodium 139 135 - 145 mmol/L Potassium, pl 4.0 3.3 - 4.9 mmol/L [facility] Chloride 102 97 - 110 mmol/L [facility] CO2 26 22 - 32 mmol/L [facility] Anion gap 11 2 - 15 mmol/L [facility] BUN 18 6 - 25 mg/dL [facility] Creatinine 0.95 0.60 - 1.10 mg/dL [facility] Glucose 115 70 - 199 mg/dL [facility] Comment: Interpretive Data Fasting glucose >/= 126 [...] 2022. Calcium 9.4 8.5 - 10.3 mg/dL [facility] Bilirubin, total 0.3 0.1 - 1.2 mg/dL [facility] Protein, pl 6.4(L) 6.5 - 8.5 g/dL [facility] Albumin 3.8 3.5 - 5.0 g/dL [facility] Alk phos 69 40 - 130 Units/L [facility] ALT 16 7 - 45 Units/L [facility] AST 27 10 - 45 Units/L [facility] Blood 04/20/2024 4:24 AM CDT 04/20/2024 4:32 AM CDT Jammie Dickson PERSONAL CLOTHING LAUNDRY AIDE LAB BLOOD ORDERABLES Fi nal Result NADINE [address] [facility] Department [place] [address] * Neuro CT Outside Reference (04/19/2024 5:20 PM CDT) Narrative [email or web address] - 04/20/2024 12:08 PM CDT This order has been auto-finalized and does not contain a result. us Provider Transcribed Order IMG CT PROCEDURES Fin al Result [email or web address] from Last 3 Months Insurance [facility] Advance Directives For more information, please contact: [phone] Documents on File Type Date Recorded Patient Performance Instructor Expl anation ADVANCE DIRECTIVE 05/04/2024 12:20 PM [facility] er of Ground Equipment Mechanic-Medical * Full Code (Latest Code Status on File) Date Activated Date Inactivated Comments 04/20/2024 4:57 AM 05/03/2024 7:33 PM Care Teams Head Of Visual Merchandising Relationship Specialty Start Date End Date William Craig MD PCP - General Internal Medicine 02/03/24
--- OUTSIDE RECORDS SUMMARY | 2024-06-28 23:38 | XMS_ITS | Clinical Summary ---
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 Hyperlipidemia 02/26/2011 HTN (hypertension) 02/26/2007 Encounters Date Type Department Care Team Description 04/22/2024 9:55 AM CDT Anesthesia Event [facility] [address] [place] [address] Sharon Betancourt MD Ertel, Michelle N., TIKI 04/20/2024 3:32 AM CDT - 05/03/2024 3:33 PM CDT Hospital Encounter [address] [address] Mindy Tabor MD Volkerding, MD Jan Fuchs Yu, MD Altwal, MD Ivon Lopez Mathew S., DO Chapagain, Akhil, MD Chowdhury, Farhanaz, MD Cerebrovascular accident (CVA), unspecified mechanism (HCC) (Primary Dx) Discharge Disposition: Discharge to SNF 04/19/2024 5:20 PM CDT - 04/19/2024 11:59 PM CDT Hospital Encounter [facility] [employer] [address] [facility] [place] [address] Discharge Disposition: Discharge to home or self care 04/19/2024 Documentation [facility] [address] [place] [address] Mindy Tabor MD from Last [...] Tobacco: Never Tobacco Cessation:Counseling Given: Not Answered [facility] Utilities Answer Date Recorded In the past 12 months has [employer], gas, oil, or water [employer] threatened to shut off services in your [...] often do you attend chur ch or mu-ism services? 1 to 4 times per year 04/20/2024 Do you belong to any clubs o r organizations such as advent groups, unions, fraternal or athletic groups, or [...] any time in the past 12 m [facility], were you homeless or living in a skilled nursing (including now)? No 04/20/2024 Personal Safety Answer Date Recorded Have you ever been in or are you currently in a harmful physical or emotional relationship or is someone making you feel afraid or unsafe? 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 Gender Identity Not on file Sexual Orientation [...] 07/07/2023, 03/18/2023 Medical Devices Implanted Type Area Mallet And Die Cutter Device Identifier Shelf Expiration Date Model / [...] - CALDERON CE Final Result [facility] [address] [facility] [place] [address] * POCT glucose (05/03/2024 7:54 AM CDT) Glucose, POC 121 70 - 199 mg/dL Glucose comment 1 Use This Result NAD[facility] Blood 05/03/2024 7:54 AM CDT 05/03/2024 7:54 AM CDT Hailey Carney MD LAB POCT ORDERABLES - CALDERON CE Final Result Performing Organization Address [facility] Co de Phone Number NADINE [address] [place] [address] * POCT glucose (05/02/2024 8:42 PM CDT) Glucose, POC 138 70 - 199 mg/dL Glucose comment 1 Use This Result NADINE Blood 05/02/2024 8:42 PM CDT 05/02/2024 8:42 PM CDT us Thang Del Valle DO LAB POCT ORDERABLES - D EVICE Final Result Performing Organization Address [facility] de Phone Number [address] [place] [address] * POCT glucose (05/02/2024 4:45 PM CDT) Glucose, POC 139 70 - 199 mg/dL Glucose comment 1 Use This Result [facility] Blood 05/02/2024 4:45 PM CDT 05/02/2024 4:45 PM CDT us Thang Del Valle DO LAB POCT ORDERABLES - D EVICE Final Result Performing Organization Address City/[facility] de Phone Number [address] [place] [address] * POCT glucose (05/02/2024 11:54 AM CDT) Glucose, POC 142 70 - 199 mg/dL Blood 05/02/2024 11:5 4 AM CDT 05/02/2024 11:54 AM CDT Thang Pradol DO LAB POCT ORDERABLES - D EVICE Final Result Performing Organization Address City/[facility] Co de Phone Number NADINE [address] [facility] [place] [address] * POCT glucose (05/02/2024 8:08 AM CDT) [facility] Glucose, POC 124 70 - 199 mg/dL Glucose comment 1 Use This Result NAD[facility] Blood 05/02/2024 8:08 AM CDT 05/02/2024 8:08 AM CDT Thang Galindo Ivon DO LAB POCT ORDERABLES - D EVICE Final Result Performing Organization Address [facility] Co de Phone Number NADINE [address] [facility] [place] [address] * eGFR (05/01/2024 11:47 PM CDT) [facility] eGFR >90 >=60 mL/min/1. 73 m2 [...] LAB BLOOD ORDERABLES Final Resul t [facility] [address] [facility] [place] [address] * Differential, auto (05/01/2024 11:47 PM CDT) Neutrophil abs 2.3 1.5 - 6.5 K/cumm Imm gran abs 0.0 0.0 - 0.1 K/cumm [facility] Lymphocyte abs 1.4 0.8 - 3.3 K/cumm [facility] Monocyte abs 0.7 0.2 - 0.8 K/cumm [facility] Eosinophil abs 0.4 0.0 - 0.5 K/cumm [facility] Basophil abs 0.1 0.0 - 0.1 K/cumm [facility] Neutrophil pct 46.8 % [facility] Comment: Interpretive Data Percent cell count reference ranges are not reported, since discordance with absolute values may lead to misinterpretation of CBC data. Current Interpretive Data was last revised on 2017. Imm gran pct 0.2 % [facility] Comment: Interpretive Data Percent cell count reference ranges are not reported, since discordance with absolute values may lead to misinterpretation of CBC data. Current Interpretive Data was last revised on 2017. Lymphocyte pct 29.1 % [facility] Comment: Interpretive Data Percent cell count reference ranges are not reported, since discordance with absolute values may lead to misinterpretation of CBC data. Current Interpretive Data was last revised on 2017. Monocyte pct 13.6 % [facility] Comment: Interpretive Data Percent cell count reference ranges are not reported, since discordance with absolute values may lead to misinterpretation of CBC data. Current Interpretive Data was last revised on 2017. Eosinophil pct 8.9 % [facility] Comment: Interpretive Data Percent cell count reference ranges are not reported, since discordance with absolute values may lead to misinterpretation of CBC data. Current Interpretive Data was last revised on 2017. Basophil pct 1.4 % [facility] Comment: Interpretive Data Percent cell count reference ranges are not reported, since discordance with absolute values may lead to misinterpretation of CBC data. Current Interpretive Data was last revised on 2017. Blood 05/01/2024 11:4 7 PM CDT 05/01/2024 11:52 PM CDT Pricilla Andino MD LAB BLOOD ORDERABLES Final Resul t Performing Organization Address [facility] Co de Phone Number [address] [place] [address] * (ABNORMAL) CBC with auto differential (05/01/2024 11:47 PM CDT) WBC 4.9 3.8 - 9.9 K/cumm Hgb 8.3(L) 11.9 - 15.5 g/dL [facility] Hct 26.6(L) 35.6 - 45.5 % [facility] Plt 232 150 - 400 K/cumm [facility] MPV 10.6 9.1 - 12.3 fL [facility] RBC 3.05(L) 3.90 - 5.20 M/cumm [facility] MCV 87.2 81.3 - 96.4 fL [facility] MCH 27.2 27.1 - 33.3 pg [facility] MCHC 31.2(L) 32.3 - 35.7 g/dL [facility] RDW CV 15.1(H) 11.1 - 14.9 % [facility] RDW SD 47.7 35.7 - 48.1 fL [facility] NRBC abs 0.00 0.00 - 0.01 K/cumm [facility] Blood 05/01/2024 11:4 7 PM CDT 05/01/2024 11:52 PM CDT Pricilla Andino MD LAB BLOOD ORDERABLES Final Resul t Performing Organization Address City/[facility] Co de Phone Number [facility] [address] [place] [address] * Renal function panel (05/01/2024 11:47 PM CDT) [facility] Sodium 141 135 - 145 mmol/L Potassium, pl 4.2 3.3 - 4.9 mmol/L [facility] Comment:Hemolyzed; Potassium value may be falsely elevated by as much as 1.0 mmol/L. Suggest redraw and reanalysis. Chloride 104 97 - 110 mmol/L [facility] CO2 27 22 - 32 mmol/L [facility] Anion gap 10 2 - 15 mmol/L [facility] BUN 25 6 - 25 mg/dL [facility] Creatinine 0.74 0.60 - 1.10 mg/dL [facility] Glucose 122 70 - 199 mg/dL [facility] Comment: Interpretive Data Fasting glucose >/= 126 [...] Calcium 9.7 8.5 - 10.3 mg/dL [facility] Phosphorus, pl 3.9 2.3 - 4.5 mg/dL [facility] Albumin 3.8 3.5 - 5.0 g/dL [facility] Blood 05/01/2024 11:4 7 PM CDT 05/01/2024 11:52 PM CDT us Pricilla Andino MD LAB BLOOD ORDERABLES Final Resul t [facility] [address] [facility] [place] [address] * POCT glucose (05/01/2024 7:56 PM CDT) [facility] Glucose, POC 147 70 - 199 mg/dL Glucose comment 1 Use This Result [facility] Blood 05/01/2024 7:56 PM CDT 05/01/2024 7:56 PM CDT Thang Maganayil DO LAB POCT ORDERABLES - D EVICE Final Result Performing Organization Address [facility] de Phone Number NADINE [address] [address] * POCT glucose (05/01/2024 4:33 PM CDT) Glucose, POC 128 70 - 199 mg/dL Glucose comment 1 Use This Result [facility] Blood 05/01/2024 4:33 PM CDT 05/01/2024 4:33 PM CDT Thang Pradol DO LAB POCT ORDERABLES - D EVICE Final Result Performing Organization Address [facility] de Phone Number [address] [place] [address] * POCT glucose (05/01/2024 11:19 AM CDT) Glucose, POC 151 70 - 199 mg/dL Glucose comment 1 Use This Result [facility] Blood 05/01/2024 11:1 9 AM CDT 05/01/2024 11:19 AM CDT Thang Scotturayil DO LAB POCT ORDERABLES - D EVICE Final Result Performing Organization Address [facility] de Phone Number [address] [address] * eGFR (05/01/2024 7:09 AM CDT) eGFR [...] LAB BLOOD ORDERABLES Fi nal Result [facility] [address] [facility] [place] [address] * Differential, auto (05/01/2024 7:09 AM CDT) Pathologist [facility] Neutrophil abs 2.7 1.5 - 6.5 K/cumm Imm gran abs 0.0 0.0 - 0.1 K/cumm [facility] Lymphocyte abs 1.5 0.8 - 3.3 K/cumm [facility] Monocyte abs 0.8 0.2 - 0.8 K/cumm [facility] Eosinophil abs 0.5 0.0 - 0.5 K/cumm [facility] Basophil abs 0.1 0.0 - 0.1 K/cumm [facility] Neutrophil pct 48.3 % [facility] Comment: Interpretive Data Percent cell count reference ranges are not reported, since discordance with absolute values may lead to misinterpretation of CBC data. Current Interpretive Data was last revised on 2017. Imm gran pct 0.2 % [facility] Comment: Interpretive Data Percent cell count reference ranges are not reported, since discordance with absolute values may lead to misinterpretation of CBC data. Current Interpretive Data was last revised on 2017. Lymphocyte pct 26.2 % [facility] Comment: Interpretive Data Percent cell count reference ranges are not reported, since discordance with absolute values may lead to misinterpretation of CBC data. Current Interpretive Data was last revised on 2017. Monocyte pct 14.2 % [facility] Comment: Interpretive Data Percent cell count reference ranges are not reported, since discordance with absolute values may lead to misinterpretation of CBC data. Current Interpretive Data was last revised on 2017. Eosinophil pct 9.7 % [facility] Comment: Interpretive Data Percent cell count reference ranges are not reported, since discordance with absolute values may lead to misinterpretation of CBC data. Current Interpretive Data was last revised on 2017. Basophil pct 1.4 % [facility] Comment: Interpretive Data Percent cell count reference ranges are not reported, since discordance with absolute values may lead to misinterpretation of CBC data. Current Interpretive Data was last revised on 2017. Blood 05/01/2024 7:09 AM CDT 05/01/2024 7:48 AM CDT Thang Del Valle DO LAB BLOOD ORDERABLES Fi nal Result [facility] [address] [facility] [place] [address] * POCT glucose (05/01/2024 7:09 AM CDT) Glucose, POC 122 70 - 199 mg/dL Glucose comment 1 Use This Result [facility] Blood 05/01/2024 7:09 AM CDT 05/01/2024 7:09 AM CDT Thang Del Valle DO LAB POCT ORDERABLES - D EVICE Final Result Performing Organization Address [facility] de Phone Number NADINE [address] [place] [address] * (ABNORMAL) CBC with auto differential (05/01/2024 7:09 AM CDT) Pathologist [facility] WBC 5.6 3.8 - 9.9 K/cumm Hgb 8.9(L) 11.9 - 15.5 g/dL [facility] Hct 28.5(L) 35.6 - 45.5 % [facility] Plt 236 150 - 400 K/cumm [facility] MPV 10.8 9.1 - 12.3 fL [facility] RBC 3.26(L) 3.90 - 5.20 M/cumm [facility] MCV 87.4 81.3 - 96.4 fL [facility] MCH 27.3 27.1 - 33.3 pg [facility] MCHC 31.2(L) 32.3 - 35.7 g/dL [facility] RDW CV 14.9 11.1 - 14.9 % [facility] RDW SD 47.7 35.7 - 48.1 fL [facility] NRBC abs 0.00 0.00 - 0.01 K/cumm [facility] Blood 05/01/2024 7:09 AM CDT 05/01/2024 7:48 AM CDT Thang Del Valle DO LAB BLOOD ORDERABLES Fi nal Result Performing Organization Address [facility] Co de Phone Number HUGO[address] [place] [address] * Magnesium (05/01/2024 7:09 AM CDT) Pathologist [facility] Magnesium 2.1 1.4 - 2.5 mg/dL Blood 05/01/2024 7:09 AM CDT 05/01/2024 7:48 AM CDT Thang Del Valle DO LAB BLOOD ORDERABLES Fi nal Result Performing Organization Address City/[facility]/ZIP Co de Phone Number [facility] [address] [facility] [place] [address] * (ABNORMAL) Comprehensive metabolic panel (05/01/2024 7:09 AM CDT) Sodium 144 135 - 145 mmol/L Potassium, pl 3.8 3.3 - 4.9 mmol/L [facility] Chloride 107 97 - 110 mmol/L [facility] CO2 27 22 - 32 mmol/L [facility] Anion gap 10 2 - 15 mmol/L [facility] BUN 26(H) 6 - 25 mg/dL [facility] Creatinine 0.72 0.60 - 1.10 mg/dL [facility] Glucose 114 70 - 199 mg/dL [facility] Comment: Interpretive Data Fasting glucose >/= 126 [...] Calcium 9.8 8.5 - 10.3 mg/dL [facility] Bilirubin, total 0.3 0.1 - 1.2 mg/dL [facility] Protein, pl 6.5 6.5 - 8.5 g/dL [facility] Albumin 3.8 3.5 - 5.0 g/dL [facility] Alk phos 69 40 - 130 Units/L [facility] ALT 9 7 - 45 Units/L [facility] AST 29 10 - 45 Units/L [facility] Blood 05/01/2024 7:09 AM CDT 05/01/2024 7:48 AM CDT Thang Del Valle DO LAB BLOOD ORDERABLES Fi nal Result NADINE [address] [place] [address] * POCT glucose (04/30/2024 8:32 PM CDT) Glucose, POC 117 70 - 199 mg/dL Glucose comment 1 Use This Result [facility] Blood 04/30/2024 8:32 PM CDT 04/30/2024 8:32 PM CDT us Thang SAlison Kalapurayil DO LAB POCT ORDERABLES - D EVICE Final Result Performing Organization Address [facility] Co de Phone Number NADINE [address] [place] [address] * POCT glucose (04/30/2024 4:42 PM CDT) Glucose, POC 157 70 - 199 mg/dL Glucose comment 1 Use This Result [facility] Glucose comment 2 RN/MD Notified [facility] Blood 04/30/2024 4:42 PM CDT 04/30/2024 4:42 PM CDT us Thang SAlison Kalapurayil DO LAB POCT ORDERABLES - D EVICE Final Result Performing Organization Address [facility] Co de Phone Number HUGO[address] [place] [address] * POCT glucose (04/30/2024 11:50 AM CDT) Glucose, POC 123 70 - 199 mg/dL Glucose comment 1 Use This Result [facility] Blood 04/30/2024 11:5 0 AM CDT 04/30/2024 11:50 AM CDT Thang SAlison Kalapurayil DO LAB POCT ORDERABLES - D EVICE Final Result Performing Organization Address City/[facility] Co de Phone Number NADINE [address] [place] [address] * eGFR (04/30/2024 10:01 AM CDT) Pathologist [facility] eGFR >90 >=60 mL/min/1. 73 m2 [...] LAB BLOOD ORDERABLES Fi nal Result [facility] [address] [facility] [place] [address] * (ABNORMAL) Differential, auto (04/30/2024 10:01 AM CDT) Pathologist [facility] Neutrophil abs 2.8 1.5 - 6.5 K/cumm Imm gran abs 0.0 0.0 - 0.1 K/cumm [facility] Lymphocyte abs 1.6 0.8 - 3.3 K/cumm [facility] Monocyte abs 0.7 0.2 - 0.8 K/cumm [facility] Eosinophil abs 0.6(H) 0.0 - 0.5 K/cumm [facility] Basophil abs 0.1 0.0 - 0.1 K/cumm [facility] Neutrophil pct 48.9 % [facility] Comment: Interpretive Data Percent cell count reference ranges are not reported, since discordance with absolute values may lead to misinterpretation of CBC data. Current Interpretive Data was last revised on 2017. Imm gran pct 0.2 % [facility] Comment: Interpretive Data Percent cell count reference ranges are not reported, since discordance with absolute values may lead to misinterpretation of CBC data. Current Interpretive Data was last revised on 2017. Lymphocyte pct 27.7 % [facility] Comment: Interpretive Data Percent cell count reference ranges are not reported, since discordance with absolute values may lead to misinterpretation of CBC data. Current Interpretive Data was last revised on 2017. Monocyte pct 11.4 % [facility] Comment: Interpretive Data Percent cell count reference ranges are not reported, since discordance with absolute values may lead to misinterpretation of CBC data. Current Interpretive Data was last revised on 2017. Eosinophil pct 10.2 % [facility] Comment: Interpretive Data Percent cell count reference ranges are not reported, since discordance with absolute values may lead to misinterpretation of CBC data. Current Interpretive Data was last revised on 2017. Basophil pct 1.6 % [facility] Comment: Interpretive Data Percent cell count reference ranges are not reported, since discordance with absolute values may lead to misinterpretation of CBC data. Current Interpretive Data was last revised on 2017. Blood 04/30/2024 10:0 1 AM CDT 04/30/2024 10:17 AM CDT us Thang Del Valle DO LAB BLOOD ORDERABLES Fi nal Result [facility] [address] [facility] [place] [address] * (ABNORMAL) CBC with auto differential (04/30/2024 10:01 AM CDT) [facility] WBC 5.7 3.8 - 9.9 K/cumm Hgb 9.1(L) 11.9 - 15.5 g/dL [facility] Hct 28.5(L) 35.6 - 45.5 % [facility] Plt 233 150 - 400 K/cumm [facility] MPV 10.7 9.1 - 12.3 fL [facility] RBC 3.27(L) 3.90 - 5.20 M/cumm [facility] MCV 87.2 81.3 - 96.4 fL [facility] MCH 27.8 27.1 - 33.3 pg [facility] MCHC 31.9(L) 32.3 - 35.7 g/dL [facility] RDW CV 15.0(H) 11.1 - 14.9 % [facility] RDW SD 47.3 35.7 - 48.1 fL [facility] NRBC abs 0.00 0.00 - 0.01 K/cumm [facility] Blood 04/30/2024 10:0 1 AM CDT 04/30/2024 10:17 AM CDT Thang Del Valle DO LAB BLOOD ORDERABLES Fi nal Result Performing Organization Address [facility] de Phone Number [address] [place] [address] * Magnesium (04/30/2024 10:01 AM CDT) [facility] Magnesium 2.3 1.4 - 2.5 mg/dL Blood 04/30/2024 10:0 1 AM CDT 04/30/2024 10:17 AM CDT Cambiatta Mateo MaganaLetglenys CRENSHAW LAB BLOOD ORDERABLES Fi nal Result Performing Organization Address City/[facility]/ZIP Co de Phone Number [address] [place] [address] * Comprehensive metabolic panel (04/30/2024 10:01 AM CDT) [facility] Sodium 145 135 - 145 mmol/L Potassium, pl 3.7 3.3 - 4.9 mmol/L [facility] Chloride 106 97 - 110 mmol/L [facility] CO2 28 22 - 32 mmol/L [facility] Anion gap 11 2 - 15 mmol/L [facility] BUN 24 6 - 25 mg/dL [facility] Creatinine 0.72 0.60 - 1.10 mg/dL [facility] Glucose 112 70 - 199 mg/dL [facility] Comment: Interpretive Data Fasting glucose >/= 126 [...] Calcium 9.5 8.5 - 10.3 mg/dL [facility] Bilirubin, total 0.3 0.1 - 1.2 mg/dL [facility] Protein, pl 6.6 6.5 - 8.5 g/dL [facility] Albumin 4.0 3.5 - 5.0 g/dL [facility] Alk phos 70 40 - 130 Units/L [facility] ALT 10 7 - 45 Units/L [facility] AST 25 10 - 45 Units/L [facility] Blood 04/30/2024 10:0 1 AM CDT 04/30/2024 10:17 AM CDT us Thang Del Valle DO LAB BLOOD ORDERABLES Fi nal Result [facility] [place] [address] [facility] [place] [address] * POCT glucose (04/30/2024 8:19 AM CDT) Glucose, POC 127 70 - 199 mg/dL Blood 04/30/2024 8:19 AM CDT 04/30/2024 8:19 AM CDT Thang Del Valle DO LAB POCT ORDERABLES - D EVICE Final Result Performing Organization Address City/[facility] Co de Phone Number [address] [place] [address] * POCT glucose (04/29/2024 7:50 PM CDT) Glucose, POC 124 70 - 199 mg/dL Glucose comment 1 Use This Result [facility] Blood 04/29/2024 7:50 PM CDT 04/29/2024 7:50 PM CDT Giancarlo Durant MD LAB POCT ORDERABLES - DEVIC E Final Result Performing Organization Address [facility] Co de Phone Number [address] [address] * POCT glucose (04/29/2024 4:00 PM CDT) Glucose, POC 133 70 - 199 mg/dL Glucose comment 1 Use This Result [facility] Glucose comment 2 RN/MD Notified [facility] Blood 04/29/2024 4:00 PM CDT 04/29/2024 4:00 PM CDT Giancarlo Durant MD LAB POCT ORDERABLES - DEVIC E Final Result Performing Organization Address City/[facility] Co de Phone Number [address] [address] * POCT glucose (04/29/2024 12:01 PM CDT) Glucose, POC 128 70 - 199 mg/dL Glucose comment 1 Use This Result [facility] Glucose comment 2 RN/MD Notified [facility] Blood 04/29/2024 12:0 1 PM CDT 04/29/2024 12:01 PM CDT Giancarlo Durant MD LAB POCT ORDERABLES - DEVIC E Final Result Performing Organization Address [facility] Co de Phone Number NADINE [address] [place] [address] * POCT glucose (04/29/2024 7:16 AM CDT) Pathologist [facility] Glucose, POC 132 70 - 199 mg/dL Glucose comment 1 Use This Result [facility] Glucose comment 2 RN/MD Notified [facility] Blood 04/29/2024 7:16 AM CDT 04/29/2024 7:16 AM CDT Giancarlo Durant MD LAB POCT ORDERABLES - DEVIC E Final Result Performing Organization Address [facility] de Phone Number [address] [address] * eGFR (04/29/2024 12:18 AM CDT) Pathologist [facility] eGFR 88 >=60 mL/min/1. 73 m2 Comment: [...] LAB BLOOD ORDERABLES Final Resul t [facility] [address] [facility] [place] [address] * Differential, auto (04/29/2024 12:18 AM CDT) Neutrophil abs 3.3 1.5 - 6.5 K/cumm Imm gran abs 0.0 0.0 - 0.1 K/cumm [facility] Lymphocyte abs 2.2 0.8 - 3.3 K/cumm [facility] Monocyte abs 0.7 0.2 - 0.8 K/cumm [facility] Eosinophil abs 0.5 0.0 - 0.5 K/cumm [facility] Basophil abs 0.1 0.0 - 0.1 K/cumm [facility] Neutrophil pct 48.8 % [facility] Comment: Interpretive Data Percent cell count reference ranges are not reported, since discordance with absolute values may lead to misinterpretation of CBC data. Current Interpretive Data was last revised on 2017. Imm gran pct 0.3 % [facility] Comment: Interpretive Data Percent cell count reference ranges are not reported, since discordance with absolute values may lead to misinterpretation of CBC data. Current Interpretive Data was last revised on 2017. Lymphocyte pct 31.9 % [facility] Comment: Interpretive Data Percent cell count reference ranges are not reported, since discordance with absolute values may lead to misinterpretation of CBC data. Current Interpretive Data was last revised on 2017. Monocyte pct 10.5 % [facility] Comment: Interpretive Data Percent cell count reference ranges are not reported, since discordance with absolute values may lead to misinterpretation of CBC data. Current Interpretive Data was last revised on 2017. Eosinophil pct 7.3 % [facility] Comment: Interpretive Data Percent cell count reference ranges are not reported, since discordance with absolute values may lead to misinterpretation of CBC data. Current Interpretive Data was last revised on 2017. Basophil pct 1.2 % [facility] Comment: Interpretive Data Percent cell count reference ranges are not reported, since discordance with absolute values may lead to misinterpretation of CBC data. Current Interpretive Data was last revised on 2017. Blood 04/29/2024 12:1 8 AM CDT 04/29/2024 12:39 AM CDT us Pricilla Andino MD LAB BLOOD ORDERABLES Final Resul t [place] [id number] [facility] [place] [address] * (ABNORMAL) CBC with auto differential (04/29/2024 12:18 AM CDT) WBC 6.8 3.8 - 9.9 K/cumm Hgb 9.0(L) 11.9 - 15.5 g/dL [facility] Hct 27.8(L) 35.6 - 45.5 % [facility] Plt 249 150 - 400 K/cumm [facility] MPV 10.6 9.1 - 12.3 fL [facility] RBC 3.26(L) 3.90 - 5.20 M/cumm [facility] MCV 85.3 81.3 - 96.4 fL [facility] MCH 27.6 27.1 - 33.3 pg [facility] MCHC 32.4 32.3 - 35.7 g/dL [facility] RDW CV 14.8 11.1 - 14.9 % [facility] RDW SD 45.7 35.7 - 48.1 fL [facility] NRBC abs 0.00 0.00 - 0.01 K/cumm [facility] Blood 04/29/2024 12:1 8 AM CDT 04/29/2024 12:39 AM CDT Pricilla Andino MD LAB BLOOD ORDERABLES Final Resul t Performing Organization Address City/[facility]/ZIP Co de Phone Number NADINE [address] [place] [address] [place] [address] * (ABNORMAL) Renal function panel (04/29/2024 12:18 AM CDT) Sodium 143 135 - 145 mmol/L Potassium, pl 3.7 3.3 - 4.9 mmol/L [facility] Chloride 106 97 - 110 mmol/L [facility] CO2 27 22 - 32 mmol/L [facility] Anion gap 10 2 - 15 mmol/L [facility] BUN 29(H) 6 - 25 mg/dL [facility] Creatinine 0.76 0.60 - 1.10 mg/dL [facility] Glucose 144 70 - 199 mg/dL [facility] Comment: Interpretive Data Fasting glucose >/= 126 [...] 2022. Calcium 10.2 8.5 - 10.3 mg/dL [facility] Phosphorus, pl 3.7 2.3 - 4.5 mg/dL [facility] Albumin 3.9 3.5 - 5.0 g/dL [facility] Blood 04/29/2024 12:1 8 AM CDT 04/29/2024 12:39 AM CDT Pricilla Andino MD LAB BLOOD ORDERABLES Final Resul t Performing Organization Address City/[facility]/ZIP Co de Phone Number NADINE [address] [place] [address] * POCT glucose (04/28/2024 8:11 PM CDT) Glucose, POC 153 70 - 199 mg/dL Glucose comment 1 Use This Result [facility] Blood 04/28/2024 8:11 PM CDT 04/28/2024 8:11 PM CDT Giancarlo Durant MD LAB POCT ORDERABLES - DEVIC E Final Result Performing Organization Address City/[facility] Co de Phone Number NADINE [address] [place] [address] * POCT glucose (04/28/2024 4:48 PM CDT) Glucose, POC 109 70 - 199 mg/dL Glucose comment 1 Use This Result [facility] Blood 04/28/2024 4:48 PM CDT 04/28/2024 4:48 PM CDT Giancarlo Durant MD LAB POCT ORDERABLES - DEVIC E Final Result Performing Organization Address [facility] de Phone Number [address] [place] [address] * POCT glucose (04/28/2024 11:35 AM CDT) Glucose, POC 162 70 - 199 mg/dL Glucose comment 1 Use This Result [facility] Blood 04/28/2024 11:3 5 AM CDT 04/28/2024 11:35 AM CDT Giancarlo Durant MD LAB POCT ORDERABLES - DEVIC E Final Result Performing Organization Address City/[facility] de Phone Number [address] [place] [address] * POCT glucose (04/28/2024 7:48 AM CDT) Glucose, POC 118 70 - 199 mg/dL Glucose comment 1 Use This Result [facility] Blood 04/28/2024 7:48 AM CDT 04/28/2024 7:48 AM CDT Giancarlo Durant MD LAB POCT ORDERABLES - DEVIC E Final Result Performing Organization Address [facility] Co de Phone Number NADINE [address] [place] [address] * POCT glucose (04/27/2024 8:13 PM CDT) Glucose, POC 124 70 - 199 mg/dL Glucose comment 1 Use This Result [facility] Blood 04/27/2024 8:13 PM CDT 04/27/2024 8:13 PM CDT Giancarlo Durant MD LAB POCT ORDERABLES - DEVIC E Final Result Performing Organization Address [facility] de Phone Number NADINE [address] [place] [address] * POCT glucose (04/27/2024 4:22 PM CDT) Glucose, POC 114 70 - 199 mg/dL Glucose comment 1 Use This Result [facility] Blood 04/27/2024 4:22 PM CDT 04/27/2024 4:22 PM CDT Giancarlo Durant MD LAB POCT ORDERABLES - DEVIC E Final Result Performing Organization Address [facility] de Phone Number NADINE [address] [address] * POCT glucose (04/27/2024 11:48 AM CDT) Glucose, POC 140 70 - 199 mg/dL Glucose comment 1 Use This Result [facility] Blood 04/27/2024 11:4 8 AM CDT 04/27/2024 11:48 AM CDT Giancarlo Durant MD LAB POCT ORDERABLES - DEVIC E Final Result Performing Organization Address City/[facility] Co de Phone Number NADINE [address] [place] [address] * POCT glucose (04/27/2024 7:33 AM CDT) Pathologist [facility] Glucose, POC 115 70 - 199 mg/dL Glucose comment 1 Use This Result [facility] Blood 04/27/2024 7:33 AM CDT 04/27/2024 7:33 AM CDT Giancarlo Durant MD LAB POCT ORDERABLES - DEVIC E Final Result Performing Organization Address [facility] de Phone Number NADINE [address] [facility] [place] [address] * eGFR (04/27/2024 12:42 AM CDT) Pathologist [facility] eGFR >90 >=60 mL/min/1. 73 m2 [...] LAB BLOOD ORDERABLES Final Resul t [facility] [address] [facility] [place] [address] * (ABNORMAL) Differential, auto (04/27/2024 12:42 AM CDT) Pathologist [facility] Neutrophil abs 6.3 1.5 - 6.5 K/cumm Imm gran abs 0.1 0.0 - 0.1 K/cumm [facility] Lymphocyte abs 2.1 0.8 - 3.3 K/cumm [facility] Monocyte abs 0.8 0.2 - 0.8 K/cumm [facility] Eosinophil abs 0.6(H) 0.0 - 0.5 K/cumm [facility] Basophil abs 0.1 0.0 - 0.1 K/cumm [facility] Neutrophil pct 62.7 % [facility] Comment: Interpretive Data Percent cell count reference ranges are not reported, since discordance with absolute values may lead to misinterpretation of CBC data. Current Interpretive Data was last revised on 2017. Imm gran pct 1.4 % [facility] Comment: Interpretive Data Percent cell count reference ranges are not reported, since discordance with absolute values may lead to misinterpretation of CBC data. Current Interpretive Data was last revised on 2017. Lymphocyte pct 21.0 % [facility] Comment: Interpretive Data Percent cell count reference ranges are not reported, since discordance with absolute values may lead to misinterpretation of CBC data. Current Interpretive Data was last revised on 2017. Monocyte pct 8.1 % [facility] Comment: Interpretive Data Percent cell count reference ranges are not reported, since discordance with absolute values may lead to misinterpretation of CBC data. Current Interpretive Data was last revised on 2017. Eosinophil pct 5.6 % [facility] Comment: Interpretive Data Percent cell count reference ranges are not reported, since discordance with absolute values may lead to misinterpretation of CBC data. Current Interpretive Data was last revised on 2017. Basophil pct 1.2 % [facility] Comment: Interpretive Data Percent cell count reference ranges are not reported, since discordance with absolute values may lead to misinterpretation of CBC data. Current Interpretive Data was last revised on 2017. Blood 04/27/2024 12:4 2 AM CDT 04/27/2024 1:13 AM CDT Pricilla Andino MD LAB BLOOD ORDERABLES Final Resul t Performing Organization Address City/[facility] Co de Phone Number [facility] [address] [facility] [place] [address] * (ABNORMAL) CBC with auto differential (04/27/2024 12:42 AM CDT) WBC 10.0(H) 3.8 - 9.9 K/cumm Hgb 9.4(L) 11.9 - 15.5 g/dL [facility] Hct 29.5(L) 35.6 - 45.5 % [facility] Plt 270 150 - 400 K/cumm [facility] MPV 10.8 9.1 - 12.3 fL [facility] RBC 3.43(L) 3.90 - 5.20 M/cumm [facility] MCV 86.0 81.3 - 96.4 fL [facility] MCH 27.4 27.1 - 33.3 pg [facility] MCHC 31.9(L) 32.3 - 35.7 g/dL [facility] RDW CV 14.8 11.1 - 14.9 % [facility] RDW SD 46.2 35.7 - 48.1 fL [facility] NRBC abs 0.00 0.00 - 0.01 K/cumm [facility] Blood 04/27/2024 12:4 2 AM CDT 04/27/2024 1:13 AM CDT Pricilla Andino MD LAB BLOOD ORDERABLES Final Resul t NAD[facility] [address] [facility] [place] [address] * Renal function panel (04/27/2024 12:42 AM CDT) Sodium 142 135 - 145 mmol/L Potassium, pl 3.6 3.3 - 4.9 mmol/L [facility] Chloride 106 97 - 110 mmol/L [facility] CO2 24 22 - 32 mmol/L [facility] Anion gap 12 2 - 15 mmol/L [facility] BUN 15 6 - 25 mg/dL [facility] Creatinine 0.70 0.60 - 1.10 mg/dL [facility] Glucose 112 70 - 199 mg/dL [facility] Comment: Interpretive Data Fasting glucose >/= 126 [...] Calcium 10.0 8.5 - 10.3 mg/dL [facility] Phosphorus, pl 3.5 2.3 - 4.5 mg/dL [facility] Albumin 4.0 3.5 - 5.0 g/dL [facility] Blood 04/27/2024 12:4 2 AM CDT 04/27/2024 1:12 AM CDT Pricilla Andino MD LAB BLOOD ORDERABLES Final Resul t Performing Organization Address [facility]/ZIP Co de Phone Number NADINE [address] [facility] [place] [address] * POCT glucose (04/26/2024 7:58 PM CDT) Glucose, POC 124 70 - 199 mg/dL Glucose comment 1 Use This Result [facility] Blood 04/26/2024 7:58 PM CDT 04/26/2024 7:58 PM CDT us Pricilla Andino MD LAB POCT ORDERABLES - DEVICE Fin al Result Performing Organization Address [facility] Co de Phone Number NADINE [address] [place] [address] * POCT glucose (04/26/2024 4:21 PM CDT) Glucose, POC 121 70 - 199 mg/dL Glucose comment 1 Use This Result [facility] Blood 04/26/2024 4:21 PM CDT 04/26/2024 4:21 PM CDT us Pricilla Andino MD LAB POCT ORDERABLES - DEVICE Fin al Result Performing Organization Address [facility] de Phone Number NADINE [address] [place] [address] * POCT glucose (04/26/2024 11:11 AM CDT) Glucose, POC 136 70 - 199 mg/dL Glucose comment 1 Use This Result [facility] Blood 04/26/2024 11:1 1 AM CDT 04/26/2024 11:11 AM CDT us Pricilla Andino MD LAB POCT ORDERABLES - DEVICE Fin al Result Performing Organization Address [facility] Co de Phone Number [address] [place] [address] * POCT glucose (04/26/2024 7:11 AM CDT) Glucose, POC 125 70 - 199 mg/dL Glucose comment 1 Use This Result [facility] Blood 04/26/2024 7:11 AM CDT 04/26/2024 7:11 AM CDT us Pricilla Andino MD LAB POCT ORDERABLES - DEVICE Fin al Result Performing Organization Address [facility]/ZIP Co de Phone Number NADINE [address] [place] [address] * POCT glucose (04/25/2024 8:23 PM CDT) Glucose, POC 136 70 - 199 mg/dL Blood 04/25/2024 8:23 PM CDT 04/25/2024 8:23 PM CDT Pricilla Andino MD LAB POCT ORDERABLES - DEVICE Fin al Result Performing Organization Address [facility] Co de Phone Number NADINE [address] [address] * POCT glucose (04/25/2024 4:27 PM CDT) Glucose, POC 128 70 - 199 mg/dL Glucose comment 1 Use This Result [facility] Blood 04/25/2024 4:27 PM CDT 04/25/2024 4:27 PM CDT Pricilla Andino MD LAB POCT ORDERABLES - DEVICE Fin al Result Performing Organization Address [facility] Co de Phone Number NADINE [address] [place] [address] * POCT glucose (04/25/2024 11:14 AM CDT) Glucose, POC 124 70 - 199 mg/dL Glucose comment 1 Use This Result [facility] Blood 04/25/2024 11:1 4 AM CDT 04/25/2024 11:14 AM CDT Pricilla Andino MD LAB POCT ORDERABLES - DEVICE Fin al Result Performing Organization Address City/[facility] Co de Phone Number [address] [place] [address] * POCT glucose (04/25/2024 7:33 AM CDT) Glucose, POC 120 70 - 199 mg/dL Glucose comment 1 Use This Result [facility] Blood 04/25/2024 7:33 AM CDT 04/25/2024 7:33 AM CDT Pricilla Andino MD LAB POCT ORDERABLES - DEVICE Fin al Result NADINE [place] [address] [facility] [place] [address] * eGFR (04/25/2024 6:42 AM CDT) [facility] eGFR >90 >=60 mL/min/1. 73 m2 [...] MD LAB BLOOD ORDERABLES Final Resul t [facility] [address] [facility] [place] [address] * (ABNORMAL) Differential, auto (04/25/2024 6:42 AM CDT) Neutrophil abs 5.6 1.5 - 6.5 K/cumm Imm gran abs 0.0 0.0 - 0.1 K/cumm [facility] Lymphocyte abs 1.9 0.8 - 3.3 K/cumm [facility] Monocyte abs 0.7 0.2 - 0.8 K/cumm [facility] Eosinophil abs 0.8(H) 0.0 - 0.5 K/cumm [facility] Basophil abs 0.1 0.0 - 0.1 K/cumm [facility] Neutrophil pct 61.4 % [facility] Comment: Interpretive Data Percent cell count reference ranges are not reported, since discordance with absolute values may lead to misinterpretation of CBC data. Current Interpretive Data was last revised on 2017. Imm gran pct 0.2 % [facility] Comment: Interpretive Data Percent cell count reference ranges are not reported, since discordance with absolute values may lead to misinterpretation of CBC data. Current Interpretive Data was last revised on 2017. Lymphocyte pct 21.0 % [facility] Comment: Interpretive Data Percent cell count reference ranges are not reported, since discordance with absolute values may lead to misinterpretation of CBC data. Current Interpretive Data was last revised on 2017. Monocyte pct 7.1 % [facility] Comment: Interpretive Data Percent cell count reference ranges are not reported, since discordance with absolute values may lead to misinterpretation of CBC data. Current Interpretive Data was last revised on 2017. Eosinophil pct 8.9 % [facility] Comment: Interpretive Data Percent cell count reference ranges are not reported, since discordance with absolute values may lead to misinterpretation of CBC data. Current Interpretive Data was last revised on 2017. Basophil pct 1.4 % [facility] Comment: Interpretive Data Percent cell count reference ranges are not reported, since discordance with absolute values may lead to misinterpretation of CBC data. Current Interpretive Data was last revised on 2017. Blood 04/25/2024 6:42 AM CDT 04/25/2024 7:03 AM CDT Pricilla Andino MD LAB BLOOD ORDERABLES Final Resul t Performing Organization Address [facility] Co de Phone Number NADINE [address] [place] [address] * (ABNORMAL) CBC with auto differential (04/25/2024 6:42 AM CDT) WBC 9.1 3.8 - 9.9 K/cumm Hgb 9.1(L) 11.9 - 15.5 g/dL [facility] Hct 28.7(L) 35.6 - 45.5 % [facility] Plt 259 150 - 400 K/cumm [facility] MPV 10.5 9.1 - 12.3 fL [facility] RBC 3.32(L) 3.90 - 5.20 M/cumm [facility] MCV 86.4 81.3 - 96.4 fL [facility] MCH 27.4 27.1 - 33.3 pg [facility] MCHC 31.7(L) 32.3 - 35.7 g/dL [facility] RDW CV 14.6 11.1 - 14.9 % [facility] RDW SD 46.5 35.7 - 48.1 fL [facility] NRBC abs 0.00 0.00 - 0.01 K/cumm [facility] Blood 04/25/2024 6:42 AM CDT 04/25/2024 7:03 AM CDT Pricilla Andino MD LAB BLOOD ORDERABLES Final Resul t Performing Organization Address City/[facility]/ZIP Co de Phone Number [address] [place] [address] * Renal function panel (04/25/2024 6:42 AM CDT) Sodium 142 135 - 145 mmol/L Potassium, pl 3.6 3.3 - 4.9 mmol/L [facility] Chloride 107 97 - 110 mmol/L [facility] CO2 24 22 - 32 mmol/L [facility] Anion gap 11 2 - 15 mmol/L [facility] BUN 12 6 - 25 mg/dL [facility] Creatinine 0.71 0.60 - 1.10 mg/dL [facility] Glucose 117 70 - 199 mg/dL [facility] Comment: Interpretive Data Fasting glucose >/= 126 [...] Calcium 9.6 8.5 - 10.3 mg/dL [facility] Phosphorus, pl 3.1 2.3 - 4.5 mg/dL [facility] Albumin 3.7 3.5 - 5.0 g/dL [facility] Blood 04/25/2024 6:42 AM CDT 04/25/2024 7:03 AM CDT Pricilla Andino MD LAB BLOOD ORDERABLES Final Resul t Performing Organization Address City/[facility] Co de Phone Number [address] [place] [address] * POCT glucose (04/24/2024 8:03 PM CDT) [facility] Glucose, POC 168 70 - 199 mg/dL Glucose comment 1 Use This Result [facility] Blood 04/24/2024 8:03 PM CDT 04/24/2024 8:03 PM CDT Pricilla Andino MD LAB POCT ORDERABLES - DEVICE Fin al Result Performing Organization Address [facility] Co de Phone Number [address] [place] [address] * POCT glucose (04/24/2024 4:35 PM CDT) Glucose, POC 123 70 - 199 mg/dL Glucose comment 1 Use This Result [facility] Blood 04/24/2024 4:35 PM CDT 04/24/2024 4:35 PM CDT us Pricilla Andino MD LAB POCT ORDERABLES - DEVICE Fin al Result NADNIE [facility] [address] [facility] [place] [address] * CT Head WO Contrast (04/24/2024 4:25 [...] D: ??04/24/2024 5:25 PM T: Report ID: [id number] Reading Location: [id number] Procedure Note Steven Garcia MD - 04/24/2024 [...] signed by Steven VALENZUELA T: Report ID: [id number] Reading Location: [id number] Arpan Rodgers MD IMG CT PROCEDURES Fi nal Result * POCT glucose (04/24/2024 11:47 AM CDT) Glucose, POC 128 70 - 199 mg/dL Glucose comment 1 Use This Result [facility]INE [facility] Blood 04/24/2024 11:4 7 AM CDT 04/24/2024 11:47 AM CDT Pricilla Andino MD LAB POCT ORDERABLES - DEVICE Fin al Result NADINE JESIKA [address] [facility] [place] [address] * US Carotids Duplex Bilateral (04/24/2024 9:07 AM CDT) Anatomical Region Laterality Modality Vascular Bilateral Ultrasound 04/24/2024 Narrative 04/24/2024 12:09 PM CDT [facility] Job ID: [id number] [facility] Document ID: [id number] Dictated date/time: [id number] CAROTID DUPLEX. REASON FOR EXAM Slurred speech. [...] subclavian arterial stenosis. 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 73 m2 [...] MD LAB BLOOD ORDERABLES Final Resul t [facility] [address] [facility] [place] [address] * (ABNORMAL) Differential, auto (04/24/2024 7:01 AM CDT) Pathologist [facility] Neutrophil abs 5.2 1.5 - 6.5 K/cumm Imm gran abs 0.0 0.0 - 0.1 K/cumm [facility] Lymphocyte abs 1.8 0.8 - 3.3 K/cumm [facility] [facility] Monocyte abs 0.6 0.2 - 0.8 K/cumm [facility] Eosinophil abs 0.8(H) 0.0 - 0.5 K/cumm [facility] Basophil abs 0.1 0.0 - 0.1 K/cumm [facility] Neutrophil pct 61.1 % [facility] Comment: Interpretive Data Percent cell count reference ranges are not reported, since discordance with absolute values may lead to misinterpretation of CBC data. Current Interpretive Data was last revised on 2017. Imm gran pct 0.2 % [facility] Comment: Interpretive Data Percent cell count reference ranges are not reported, since discordance with absolute values may lead to misinterpretation of CBC data. Current Interpretive Data was last revised on 2017. Lymphocyte pct 20.8 % [facility] Comment: Interpretive Data Percent cell count reference ranges are not reported, since discordance with absolute values may lead to misinterpretation of CBC data. Current Interpretive Data was last revised on 2017. Monocyte pct 6.8 % [facility] Comment: Interpretive Data Percent cell count reference ranges are not reported, since discordance with absolute values may lead to misinterpretation of CBC data. Current Interpretive Data was last revised on 2017. Eosinophil pct 9.9 % [facility] Comment: Interpretive Data Percent cell count reference ranges are not reported, since discordance with absolute values may lead to misinterpretation of CBC data. Current Interpretive Data was last revised on 2017. Basophil pct 1.2 % [facility] Comment: Interpretive Data Percent cell count reference ranges are not reported, since discordance with absolute values may lead to misinterpretation of CBC data. Current Interpretive Data was last revised on 2017. Blood 04/24/2024 7:01 AM CDT 04/24/2024 7:29 AM CDT us Pricilla Andino MD LAB BLOOD ORDERABLES Final Resul t [facility] [address] [facility] [place] [address] * (ABNORMAL) CBC with auto differential (04/24/2024 7:01 AM CDT) WBC 8.4 3.8 - 9.9 K/cumm Hgb 9.0(L) 11.9 - 15.5 g/dL [facility] Hct 28.3(L) 35.6 - 45.5 % [facility] Plt 268 150 - 400 K/cumm [facility] MPV 10.3 9.1 - 12.3 fL [facility] RBC 3.33(L) 3.90 - 5.20 M/cumm [facility] MCV 85.0 81.3 - 96.4 fL [facility] MCH 27.0(L) 27.1 - 33.3 pg [facility] MCHC 31.8(L) 32.3 - 35.7 g/dL [facility] RDW CV 14.7 11.1 - 14.9 % [facility] RDW SD 45.1 35.7 - 48.1 fL [facility] NRBC abs 0.00 0.00 - 0.01 K/cumm [facility] Blood 04/24/2024 7:01 AM CDT 04/24/2024 7:29 AM CDT Pricilla Andino MD LAB BLOOD ORDERABLES Final Resul t Performing Organization Address City/[facility] Co de Phone Number [address] [place] [employer] [place] [address] * Magnesium (04/24/2024 7:01 AM CDT) Pathologist [facility] Magnesium 2.3 1.4 - 2.5 mg/dL Blood 04/24/2024 7:01 AM CDT 04/24/2024 7:29 AM CDT Jammie Dickson NP LAB BLOOD ORDERABLES Fi nal Result Performing Organization Address City/[facility] Co de Phone Number [address] [place] [address] * Renal function panel (04/24/2024 7:01 AM CDT) Sodium 143 135 - 145 mmol/L Potassium, pl 4.1 3.3 - 4.9 mmol/L [facility] Chloride 109 97 - 110 mmol/L [facility] CO2 23 22 - 32 mmol/L [facility] Anion gap 11 2 - 15 mmol/L [facility] BUN 17 6 - 25 mg/dL [facility] Creatinine 0.72 0.60 - 1.10 mg/dL [facility] Glucose 106 70 - 199 mg/dL [facility] Comment: Interpretive Data Fasting glucose >/= 126 [...] Calcium 9.3 8.5 - 10.3 mg/dL [facility] Phosphorus, pl 2.9 2.3 - 4.5 mg/dL [facility] Albumin 3.7 3.5 - 5.0 g/dL [facility] Blood 04/24/2024 7:01 AM CDT 04/24/2024 7:29 AM CDT Pricilla Andino MD LAB BLOOD ORDERABLES Final Resul t [facility] [address] [facility] [place] [address] * ECG 12 lead (04/24/2024 12:14 AM CDT) Ventricular Rate EKG/Min 80 BPM [facility] Atrial Rate 80 BPM [facility] MO-Interval (MSEC) 142 ms [facility] QRS-Interval (MSEC) 76 ms [facility] QT-Interval (MSEC) 366 ms [facility] QTc 422 ms [facility] P [place] 52 degrees [facility] R [place] 14 degrees [facility] T [place] 86 degrees [facility] Diagnosis Normal sinus rhythm Nonspecific T wave abnormality No previous ECGs available Confirmed by SULTAN REAL M.D. ([id number]) on 04/24/2024 8:40:31 PM [facility] 04/24/2024 12:1 4 AM CDT 04/24/2024 8:40 PM CDT Jammie Dickson BOLTING MACHINE OPERATOR ECG ORDERABLES Final R esult [facility] * POCT glucose (04/23/2024 8:31 PM CDT) Glucose, POC 132 70 - 199 mg/dL Blood 04/23/2024 8:31 PM CDT 04/23/2024 8:31 PM CDT Pricilla Andino MD LAB POCT ORDERABLES - DEVICE Fin al Result Performing Organization Address City/[facility]/ZIP Co de Phone Number [address] [place] [address] * POCT glucose (04/23/2024 4:55 PM CDT) Glucose, POC 113 70 - 199 mg/dL Glucose comment 1 Use This Result [facility] Blood 04/23/2024 4:55 PM CDT 04/23/2024 4:55 PM CDT Pricilla Andino MD LAB POCT ORDERABLES - DEVICE Fin al Result Performing Organization Address [facility] Co de Phone Number [address] [place] [address] * POCT glucose (04/23/2024 11:54 AM CDT) Glucose, POC 160 70 - 199 mg/dL Glucose comment 1 Use This Result [facility] Blood 04/23/2024 11:5 4 AM CDT 04/23/2024 11:54 AM CDT Pricilla Andino MD LAB POCT ORDERABLES - DEVICE Fin al Result Performing Organization Address City/[facility] Co de Phone Number [address] [place] [address] * eGFR (04/23/2024 10:24 AM CDT) eGFR [...] LAB BLOOD ORDERABLES Final Resul t [facility] [address] [facility] [place] [address] * (ABNORMAL) Differential, auto (04/23/2024 10:24 AM CDT) Pathologist [facility] Neutrophil abs 5.4 1.5 - 6.5 K/cumm Imm gran abs 0.0 0.0 - 0.1 K/cumm [facility] Lymphocyte abs 1.5 0.8 - 3.3 K/cumm [facility] Monocyte abs 0.5 0.2 - 0.8 K/cumm [facility] Eosinophil abs 0.6(H) 0.0 - 0.5 K/cumm [facility] Basophil abs 0.1 0.0 - 0.1 K/cumm [facility] Neutrophil pct 66.7 % [facility] Comment: Interpretive Data Percent cell count reference ranges are not reported, since discordance with absolute values may lead to misinterpretation of CBC data. Current Interpretive Data was last revised on 2017. Imm gran pct 0.1 % [facility] Comment: Interpretive Data Percent cell count reference ranges are not reported, since discordance with absolute values may lead to misinterpretation of CBC data. Current Interpretive Data was last revised on 2017. Lymphocyte pct 18.3 % [facility] Comment: Interpretive Data Percent cell count reference ranges are not reported, since discordance with absolute values may lead to misinterpretation of CBC data. Current Interpretive Data was last revised on 2017. Monocyte pct 6.1 % [facility] Comment: Interpretive Data Percent cell count reference ranges are not reported, since discordance with absolute values may lead to misinterpretation of CBC data. Current Interpretive Data was last revised on 2017. Eosinophil pct 7.7 % [facility] Comment: Interpretive Data Percent cell count reference ranges are not reported, since discordance with absolute values may lead to misinterpretation of CBC data. Current Interpretive Data was last revised on 2017. Basophil pct 1.1 % [facility] Comment: Interpretive Data Percent cell count reference ranges are not reported, since discordance with absolute values may lead to misinterpretation of CBC data. Current Interpretive Data was last revised on 2017. Blood 04/23/2024 10:2 4 AM CDT 04/23/2024 10:55 AM CDT us Pricilla Andino MD LAB BLOOD ORDERABLES Final Resul t [facility] [address] [facility] [place] [address] * (ABNORMAL) CBC with auto differential (04/23/2024 10:24 AM CDT) WBC 8.2 3.8 - 9.9 K/cumm Hgb 9.9(L) 11.9 - 15.5 g/dL [facility] Hct 30.7(L) 35.6 - 45.5 % [facility] Plt 290 150 - 400 K/cumm [facility] MPV 10.4 9.1 - 12.3 fL [facility] RBC 3.59(L) 3.90 - 5.20 M/cumm [facility] MCV 85.5 81.3 - 96.4 fL [facility] MCH 27.6 27.1 - 33.3 pg [facility] MCHC 32.2(L) 32.3 - 35.7 g/dL [facility] RDW CV 14.6 11.1 - 14.9 % [facility] RDW SD 45.0 35.7 - 48.1 fL [facility] NRBC abs 0.00 0.00 - 0.01 K/cumm [facility] Blood 04/23/2024 10:2 4 AM CDT 04/23/2024 10:55 AM CDT Pricilla Andino MD LAB BLOOD ORDERABLES Final Resul t [facility] [address] [facility] [place], [place] [id number] * Renal function panel (04/23/2024 10:24 AM CDT) Sodium 139 135 - 145 mmol/L Potassium, pl 3.4 3.3 - 4.9 mmol/L [facility] Chloride 104 97 - 110 mmol/L [facility] CO2 23 22 - 32 mmol/L [facility] Anion gap 12 2 - 15 mmol/L [facility] BUN 17 6 - 25 mg/dL [facility] Creatinine 0.78 0.60 - 1.10 mg/dL [facility] Glucose 174 70 - 199 mg/dL [facility] Comment: Interpretive Data Fasting glucose >/= 126 [...] Calcium 10.0 8.5 - 10.3 mg/dL [facility] Phosphorus, pl 3.6 2.3 - 4.5 mg/dL [facility] Albumin 3.9 3.5 - 5.0 g/dL [facility] Blood 04/23/2024 10:2 4 AM CDT 04/23/2024 10:55 AM CDT Pricilla Andino MD LAB BLOOD ORDERABLES Final Resul t Performing Organization Address [facility] Co de Phone Number [address] [place] [address] * POCT glucose (04/23/2024 8:02 AM CDT) Glucose, POC 136 70 - 199 mg/dL Blood 04/23/2024 8:02 AM CDT 04/23/2024 8:02 AM CDT Pricilla Andino MD LAB POCT ORDERABLES - DEVICE Fin al Result Performing Organization Address [facility] Co de Phone Number [address] [place] [address] * POCT glucose (04/22/2024 7:53 PM CDT) Glucose, POC 134 70 - 199 mg/dL Glucose comment 1 Use This Result [facility] Blood 04/22/2024 7:53 PM CDT 04/22/2024 7:53 PM CDT Result [facility] Pricilla Andino MD LAB POCT ORDERABLES - DEVICE Fin al Result Performing Organization Address [facility] Co de Phone Number [address] [place] [address] * CTA Chest Abdomen Pelvis (04/22/2024 5:25 [...] D: ??04/22/2024 7:42 PM T: Report ID: [id number] Reading Location: ??[id number] Procedure Note Channing Lopez MD - 04/22/2024 [...] Channing Lopez M.D. RB T: Report ID: [id number] Reading Location: [place] [address] us Pricilla Andino MD IMG CT PROCEDURES Final Result * POCT glucose (04/22/2024 4:03 PM CDT) Glucose, POC 167 70 - 199 mg/dL Glucose comment 1 Use This Result [facility] Blood 04/22/2024 4:03 PM CDT 04/22/2024 4:03 PM CDT us Pricilla Andino MD LAB POCT ORDERABLES - DEVICE Fin al Result Performing Organization Address [facility] Co de Phone Number [address] [place] [address] * POCT glucose (04/22/2024 12:02 PM CDT) Glucose, POC 123 70 - 199 mg/dL Glucose comment 1 Use This Result [facility] Blood 04/22/2024 12:0 2 PM CDT 04/22/2024 12:02 PM CDT us Pricilla Andino MD LAB POCT ORDERABLES - DEVICE Fin al Result Performing Organization Address [facility] Co de Phone Number [address] [place] [address] * TRANSESOPHAGEAL ECHO (SHIVAM) W DOPPLER/CF WO CONTRAST (04/22/2024 10:00 AM CDT) Anatomical Region Laterality Modality Ultrasound 04/22/2024 10:0 0 AM CDT Narrative 04/22/2024 10:57 AM CDT ? Version 2 ?Transesophageal Echocardiogram + ----- + :Name: RUTHLYNN JStudy Date: 04/22/2024 ?Status: MHB ?: : ?Patient Location: [facility] 2 [facility]TH^[id number]^Height: 64 in ?: : ?Weight: 127 lbBP: [...] or regurgitation. There is mild TR, trace MO, slight restriction of mitral valve anterior leaflet [...] Date: 04/22/2024Status: MHB : : Patient Location: [address]^[id number]^Height: 64 in : : : 127 lbBP: [...] stenosisor regurgitation. There is mild TR, trace MO, slight restriction of mitralvalve anterior leaflet with [...] * POCT glucose (04/22/2024 7:17 AM CDT) [facility] Signature Glucose, POC 132 70 - 199 mg/dL Glucose comment 1 Use This Result [facility] Blood 04/22/2024 7:17 AM CDT 04/22/2024 7:17 AM CDT Pricilla Andino MD LAB POCT ORDERABLES - DEVICE Fin al Result Performing Organization Address City/[facility] Co de Phone Number [facility] [address] [place] [address] [employer] [place] [address] * eGFR (04/22/2024 7:16 AM CDT) Pathologist [facility] eGFR 82 >=60 mL/min/1. 73 m2 Comment: [...] ORDERABLES Final Resul t Performing Organization Address City/[facility]/ZIP Co de Phone Number [facility] [address] [facility] [place] [address] * (ABNORMAL) Differential, auto (04/22/2024 7:16 AM CDT) Pathologist [facility] Neutrophil abs 2.5 1.5 - 6.5 K/cumm Imm gran abs 0.0 0.0 - 0.1 K/cumm [facility] Lymphocyte abs 1.8 0.8 - 3.3 K/cumm [facility] Monocyte abs 0.6 0.2 - 0.8 K/cumm [facility] Eosinophil abs 0.8(H) 0.0 - 0.5 K/cumm [facility] Basophil abs 0.1 0.0 - 0.1 K/cumm [facility] Neutrophil pct 42.8 % [facility] Comment: Interpretive Data Percent cell count reference ranges are not reported, since discordance with absolute values may lead to misinterpretation of CBC data. Current Interpretive Data was last revised on 2017. Imm gran pct 0.2 % [facility] Comment: Interpretive Data Percent cell count reference ranges are not reported, since discordance with absolute values may lead to misinterpretation of CBC data. Current Interpretive Data was last revised on 2017. Lymphocyte pct 31.5 % [facility] Comment: Interpretive Data Percent cell count reference ranges are not reported, since discordance with absolute values may lead to misinterpretation of CBC data. Current Interpretive Data was last revised on 2017. Monocyte pct 10.2 % [facility] Comment: Interpretive Data Percent cell count reference ranges are not reported, since discordance with absolute values may lead to misinterpretation of CBC data. Current Interpretive Data was last revised on 2017. Eosinophil pct 13.9 % [facility] Comment: Interpretive Data Percent cell count reference ranges are not reported, since discordance with absolute values may lead to misinterpretation of CBC data. Current Interpretive Data was last revised on 2017. Basophil pct 1.4 % [facility] Comment: Interpretive Data Percent cell count reference ranges are not reported, since discordance with absolute values may lead to misinterpretation of CBC data. Current Interpretive Data was last revised on 2017. Blood 04/22/2024 7:16 AM CDT 04/22/2024 8:12 AM CDT us Pricilla Andino MD LAB BLOOD ORDERABLES Final Resul t [address] Department [place] [address] * (ABNORMAL) CBC with auto differential (04/22/2024 7:16 AM CDT) [facility] WBC 5.8 3.8 - 9.9 K/cumm Hgb 8.8(L) 11.9 - 15.5 g/dL [facility] Hct 27.9(L) 35.6 - 45.5 % [facility] Plt 262 150 - 400 K/cumm [facility] MPV 10.6 9.1 - 12.3 fL [facility] RBC 3.21(L) 3.90 - 5.20 M/cumm [facility] MCV 86.9 81.3 - 96.4 fL [facility] MCH 27.4 27.1 - 33.3 pg [facility] MCHC 31.5(L) 32.3 - 35.7 g/dL [facility] RDW CV 14.4 11.1 - 14.9 % [facility] RDW SD 45.1 35.7 - 48.1 fL [facility] NRBC abs 0.00 0.00 - 0.01 K/cumm [facility] Blood 04/22/2024 7:16 AM CDT 04/22/2024 8:12 AM CDT Pricilla Andino MD LAB BLOOD ORDERABLES Final Resul t [address] [place] [address] * Renal function panel (04/22/2024 7:16 AM CDT) [facility] Sodium 140 135 - 145 mmol/L Potassium, pl 3.8 3.3 - 4.9 mmol/L [facility] Chloride 105 97 - 110 mmol/L [facility] CO2 27 22 - 32 mmol/L [facility] Anion gap 8 2 - 15 mmol/L [facility] BUN 13 6 - 25 mg/dL [facility] Creatinine 0.81 0.60 - 1.10 mg/dL [facility] Glucose 117 70 - 199 mg/dL [facility] Comment: Interpretive Data Fasting glucose >/= 126 [...] Calcium 9.6 8.5 - 10.3 mg/dL [facility] Phosphorus, pl 4.3 2.3 - 4.5 mg/dL [facility] Albumin 3.7 3.5 - 5.0 g/dL [facility] Blood 04/22/2024 7:16 AM CDT 04/22/2024 8:12 AM CDT Pricilla Andino MD LAB BLOOD ORDERABLES Final Resul t Performing Organization Address [facility] Co de Phone Number [address] [place] [address] * POCT glucose (04/21/2024 7:59 PM CDT) Glucose, POC 176 70 - 199 mg/dL Glucose comment 1 Use This Result [facility] Blood 04/21/2024 7:59 PM CDT 04/21/2024 7:59 PM CDT Pricilla Andino MD LAB POCT ORDERABLES - DEVICE Fin al Result Performing Organization Address [facility] Co de Phone Number [address] [place] [address] * POCT glucose (04/21/2024 4:57 PM CDT) Glucose, POC 139 70 - 199 mg/dL Glucose comment 1 Use This Result [facility] Blood 04/21/2024 4:57 PM CDT 04/21/2024 4:57 PM CDT us Pricilla Andino MD LAB POCT ORDERABLES - DEVICE Fin al Result [facility] [place] [address] [facility] [place] [address] * EEG (04/21/2024 1:48 PM [...] DEVICE Fin al Result Performing Organization Address City/[facility] Co de Phone Number [facility] [address] [place] [address] * POCT glucose (04/21/2024 8:05 AM CDT) Glucose, POC 116 70 - 199 mg/dL Glucose comment 1 Use This Result [facility] Blood 04/21/2024 8:05 AM CDT 04/21/2024 8:05 AM CDT Pricilla Andino MD LAB POCT ORDERABLES - DEVICE Fin al Result Performing Organization Address [facility] de Phone Number NAD[facility] [address] [place] [address] * POCT glucose (04/20/2024 9:30 PM CDT) Glucose, POC 115 70 - 199 mg/dL Glucose comment 1 Use This Result [facility] Blood 04/20/2024 9:30 PM CDT 04/20/2024 9:30 PM CDT Pricilla Andino MD LAB POCT ORDERABLES - DEVICE Fin al Result Performing Organization Address [facility] de Phone Number NADINE [address] [place] [address] * POCT glucose (04/20/2024 4:26 PM CDT) Glucose, POC 141 70 - 199 mg/dL Glucose comment 1 Use This Result [facility] Blood 04/20/2024 4:26 PM CDT 04/20/2024 4:26 PM CDT Pricilla Andino MD LAB POCT ORDERABLES - DEVICE Fin al Result Performing Organization Address City/[facility] Co de Phone Number [facility] [place] [address] [facility] [place] [address] * CTA Head Neck W WO Contrast [...] same day for detailed evaluation of bilateral, yjqem-eprjwcc-swgm-left, acute infarcts superimposed on constellation of chronic findings. 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 ??Patent left MANAGER ADVANCED, noting variable, to include severe, stenosis along [...] same day for detailed evaluation of bilateral, ceyqy-tkcstan-ohuk-left, acute infarcts superimposed on constellation of chronic findings. 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 [id number] . THIS IS AN ELECTRONICALLY VERIFIED FINAL REPORT 04/20/2024 3:57 PM - Electronically signed by ??Steven Garcia M.D. NICOLAS D: ??04/20/2024 3:57 PM T: Report ID: [id number] Reading Location: ??[id number] Procedure Note Steven Garcia MD - 04/20/2024 [...] earlier sameday for detailed evaluation of bilateral, vlnyx-mwkznfp-wrjy-left, acuteinfarcts superimposed on constellation of chronic findings. 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 Patentleft MANAGER ADVANCED, noting variable, to include severe, stenosis along [...] earlier same day fordetailed evaluation of bilateral, keuya-imjcuep-grdn-left, acute infarctssuperimposed on constellation of chronic findings. 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 NICOLAS T: Report ID: [id number] Reading Location: [id number] Arpan Rodgers MD IMG CT PROCEDURES Fi nal Result * POCT glucose (04/20/2024 12:12 PM CDT) [facility] Signature Glucose, POC 117 70 - 199 mg/dL Glucose comment 1 Use This Result [facility] Blood 04/20/2024 12:1 2 PM CDT 04/20/2024 12:12 PM CDT Pricilla Andino MD LAB POCT ORDERABLES - DEVICE Fin al Result [facility] [address] [facility] [place] [address] * MRI Brain WO Contrast [...] collection. ??Normal size ventricles. BRAIN VOLUME: ?? Pssm-jg-rkhkbpom cerebral volume loss. PITUITARY: ?? Unremarkable. VASCULATURE: [...] D: ??04/20/2024 12:44 PM T: Report ID: [id number] Reading Location: ??[id number] Procedure Note Angel Kyle MD - 04/20/2024 EXAM DESCRIPTION: MRI BRAIN WO CONTRAST REASON FOR STUDY: Hx of recent CVA, pt has increased weakness anddecreased mental status. TECHNIQUE: Multiplanar imaging includes non-contrasted T1, T2, FLAIR, and diffusion with ADC map sequences. Additional sequence(s) sensitive [employer]. Images stored on PACS. COMPARISON: Head CT [...] extra-axial fluid collection. Normalsize ventricles. BRAIN VOLUME: Cujs-iy-ikfsluxs cerebral volume loss. PITUITARY: Unremarkable. VASCULATURE: Skull [...] Angel Kyle M.D. AG T: Report ID: [id number] Reading Location: [id number] Jammie Dickson BOLTING MACHINE OPERATOR IMG MRI PROCEDURES Marcelle l Result * [...] D: ??04/20/2024 9:03 AM T: Report ID: [id number] Reading Location: ??[id number] Procedure Note Johan Wilson MD - 04/20/2024 [...] Johan Wilson M.D. MM T: Report ID: [id number] Reading Location: [place] [address] Jammie Dickson BOLTING MACHINE OPERATOR IMG XR PROCEDURES Final Result * POCT glucose (04/20/2024 8:09 AM CDT) Pathologist [facility] Glucose, POC 133 70 - 199 mg/dL Glucose comment 1 Use This Result [facility] Blood 04/20/2024 8:09 AM CDT 04/20/2024 8:09 AM CDT Pricilla Andino MD LAB POCT ORDERABLES - DEVICE Fin al Result Performing Organization Address [facility] de Phone Number [address] [place] [address] * Lactate (04/20/2024 4:24 AM CDT) [facility] Lactate 0.8 0.7 - 2.0 mmol/L Blood 04/20/2024 4:24 AM CDT 04/20/2024 4:32 AM CDT Jammie Dickson NP LAB BLOOD ORDERABLES Fi nal Result Performing Organization Address [facility] de Phone Number [address] [place] [address] * eGFR (04/20/2024 4:24 AM CDT) Pathologist [facility] eGFR 67 >=60 mL/min/1. 73 m2 [...] CDT 04/20/2024 4:32 AM CDT Jammie Dickson BOLTING MACHINE OPERATOR LAB BLOOD ORDERABLES [facility] Result NADINE [address] [facility] [place] [address] * (ABNORMAL) Differential, auto (04/20/2024 4:24 AM CDT) Pathologist [facility] Neutrophil abs 4.2 1.5 - 6.5 K/cumm Imm gran abs 0.0 0.0 - 0.1 K/cumm [facility] Lymphocyte abs 1.6 0.8 - 3.3 K/cumm [facility] Monocyte abs 0.7 0.2 - 0.8 K/cumm [facility] Eosinophil abs 0.7(H) 0.0 - 0.5 K/cumm [facility] Basophil abs 0.1 0.0 - 0.1 K/cumm [facility] Neutrophil pct 57.2 % [facility] Comment: Interpretive Data Percent cell count reference ranges are not reported, since discordance with absolute values may lead to misinterpretation of CBC data. Current Interpretive Data was last revised on 2017. Imm gran pct 0.3 % [facility] Comment: Interpretive Data Percent cell count reference ranges are not reported, since discordance with absolute values may lead to misinterpretation of CBC data. Current Interpretive Data was last revised on 2017. Lymphocyte pct 22.1 % [facility] Comment: Interpretive Data Percent cell count reference ranges are not reported, since discordance with absolute values may lead to misinterpretation of CBC data. Current Interpretive Data was last revised on 2017. Monocyte pct 9.5 % [facility] Comment: Interpretive Data Percent cell count reference ranges are not reported, since discordance with absolute values may lead to misinterpretation of CBC data. Current Interpretive Data was last revised on 2017. Eosinophil pct 9.5 % [facility] Comment: Interpretive Data Percent cell count reference ranges are not reported, since discordance with absolute values may lead to misinterpretation of CBC data. Current Interpretive Data was last revised on 2017. Basophil pct 1.4 % [facility] Comment: Interpretive Data Percent cell count reference ranges are not reported, since discordance with absolute values may lead to misinterpretation of CBC data. Current Interpretive Data was last revised on 2017. Blood 04/20/2024 4:24 AM CDT 04/20/2024 4:32 AM CDT us Jammie Dickson BOLTING MACHINE OPERATOR LAB BLOOD ORDERABLES Fi nal Result Performing Organization Address [facility] de Phone Number NADINE [address] [facility] [place] [address] * Thyroid Function Williamson (04/20/2024 4:24 AM CDT) TSH 1.80 0.30 - 4.20 mcIUnit/mL Blood 04/20/2024 4:24 AM CDT 04/20/2024 4:32 AM CDT us Jammie Dickson BOLTING MACHINE OPERATOR LAB BLOOD ORDERABLES Fi nal Result Performing Organization Address [facility] de Phone Number [address] [address] * (ABNORMAL) CBC with auto differential (04/20/2024 4:24 AM CDT) [facility] WBC 7.4 3.8 - 9.9 K/cumm Hgb 9.2(L) 11.9 - 15.5 g/dL [facility] Hct 29.6(L) 35.6 - 45.5 % [facility] Plt 252 150 - 400 K/cumm [facility] MPV 10.5 9.1 - 12.3 fL [facility] RBC 3.43(L) 3.90 - 5.20 M/cumm [facility] MCV 86.3 81.3 - 96.4 fL [facility] MCH 26.8(L) 27.1 - 33.3 pg [facility] MCHC 31.1(L) 32.3 - 35.7 g/dL [facility] RDW CV 14.3 11.1 - 14.9 % [facility] RDW SD 44.2 35.7 - 48.1 fL [facility] NRBC abs 0.00 0.00 - 0.01 K/cumm [facility] Blood 04/20/2024 4:24 AM CDT 04/20/2024 4:32 AM CDT us Jammie Dickson NP LAB BLOOD ORDERABLES Fi nal Result Performing Organization Address [facility] Co de Phone Number [address] [place] [address] * (ABNORMAL) Vitamin D 25 hydroxy (04/20/2024 4:24 AM CDT) [facility] Vitamin D 25-OH 13.0(L) 30.0 - 80.0 ng/mL Blood 04/20/2024 4:24 AM CDT 04/20/2024 4:32 AM CDT us Jammie Dickson BOLTING MACHINE OPERATOR LAB BLOOD ORDERABLES Fi nal Result Performing Organization Address City/[facility]/ZIP Co de Phone Number [address] [address] * Phosphorus (04/20/2024 4:24 AM CDT) [facility] Phosphorus, pl 3.4 2.3 - 4.5 mg/dL Blood 04/20/2024 4:24 AM CDT 04/20/2024 4:32 AM CDT Jammie Dickson BOLTING MACHINE OPERATOR LAB BLOOD ORDERABLES Fi nal Result Performing Organization Address [facility] Co de Phone Number [address] [address] * Magnesium (04/20/2024 4:24 AM CDT) [facility] Magnesium 1.9 1.4 - 2.5 mg/dL Blood 04/20/2024 4:24 AM CDT 04/20/2024 4:32 AM CDT Jammie Dickson BOLTING MACHINE OPERATOR LAB BLOOD ORDERABLES nal Result Performing Organization Address [facility] de Phone Number [address] [address] * (ABNORMAL) Hemoglobin A1c (04/20/2024 4:24 AM CDT) [facility] Hgb A1C 6.2(H) 4.0 - 5.6 % Estimated Average Glucose 131 mg/dL NAD[facility] Comment: The ADA recommends reporting an estimated Average Glucose (eAG) with all Hemoglobin A1c results using the equation derived from a study of 507 normal and diabetic adults. ??Minority populations were underrepresented and children were not included. ?? (Diabetes Care 31:5601-8040, 2008). ??The eAG is not equivalent to a fasting glucose. Blood 04/20/2024 4:24 AM CDT 04/20/2024 4:32 AM CDT Jammie Dickson BOLTING MACHINE OPERATOR LAB BLOOD ORDERABLES Fi nal Result Performing Organization Address [facility] Co de Phone Number [address] [place] [address] * Vitamin B12 (04/20/2024 4:24 AM CDT) Vitamin B12 672 230 - 1,250 pg/mL Blood 04/20/2024 4:24 AM CDT 04/20/2024 4:32 AM CDT Jammie Dickson BOLTING MACHINE OPERATOR LAB BLOOD ORDERABLES Fi nal Result Performing Organization Address [facility] de Phone Number [address] [place] [address] * Ammonia (04/20/2024 4:24 AM CDT) Pathologist [facility] Ammonia <10 <=50 mcmol/L Comment: Please note on 11/18/2023 the unit of measure changed from mcg/dL to mcmol/L. Current Interpretive Data was last revised on 2023. Blood 04/20/2024 4:24 AM CDT 04/20/2024 4:32 AM CDT Jammie Dickson BOLTING MACHINE OPERATOR LAB BLOOD ORDERABLES Fi nal Result Performing Organization Address [facility] de Phone Number [address] [place] [address] * (ABNORMAL) Lipid panel (04/20/2024 4:24 AM [...] last revised on 2018. Chol/HDL ratio 3 [facility] Blood 04/20/2024 4:24 AM CDT 04/20/2024 4:32 AM CDT Jammie Dickson BOLTING MACHINE OPERATOR LAB BLOOD ORDERABLES nal Result [facility] [address] [facility] [place] [address] * (ABNORMAL) Comprehensive metabolic panel (04/20/2024 4:24 AM CDT) Sodium 139 135 - 145 mmol/L Potassium, pl 4.0 3.3 - 4.9 mmol/L [facility] Chloride 102 97 - 110 mmol/L [facility] CO2 26 22 - 32 mmol/L [facility] Anion gap 11 2 - 15 mmol/L [facility] BUN 18 6 - 25 mg/dL [facility] Creatinine 0.95 0.60 - 1.10 mg/dL [facility] Glucose 115 70 - 199 mg/dL [facility] Comment: Interpretive Data Fasting glucose >/= 126 [...] Calcium 9.4 8.5 - 10.3 mg/dL [facility] Bilirubin, total 0.3 0.1 - 1.2 mg/dL [facility] Protein, pl 6.4(L) 6.5 - 8.5 g/dL [facility] Albumin 3.8 3.5 - 5.0 g/dL [facility] Alk phos 69 40 - 130 Units/L [facility] ALT 16 7 - 45 Units/L [facility] AST 27 10 - 45 Units/L [facility] Blood 04/20/2024 4:24 AM CDT 04/20/2024 4:32 AM CDT us Jammie Dickson BOLTING MACHINE OPERATOR LAB BLOOD ORDERABLES Fi nal Result NADINE MH [address] [facility] [place] [address] * Neuro CT Outside Reference (04/19/2024 5:20 PM CDT) Narrative [email or web address] - 04/20/2024 12:08 PM CDT This order has been auto-finalized and does not contain a result. us Provider Transcribed Order IMG CT PROCEDURES Fin al Result Performing Organization Address [facility] Co de Phone Number [email or web address] from Last 3 Months Insurance [facility] CMR Advance Directives For more information, please contact: [phone] Documents on File Type Date Recorded Patient Senior Revenue Accountant Expl anation ADVANCE DIRECTIVE 05/04/2024 12:20 PM [facility] er of Materials Inspector-Medical * Full Code (Latest Code Status on File) Date Activated Date Inactivated Comments 04/20/2024 4:57 AM 05/03/2024 7:33 PM Care Teams Maths Tutor Relationship Specialty Start Date End Date William Craig MD PCP - General Internal Medicine 02/03/24
--- OUTSIDE RECORDS SUMMARY | 2024-06-28 23:39 | XMS_ITS | Encounter Summary ---
Author Organization [facility] Healthcare Address [address] [place] [address] Care Team Providers Care Sinker Winder Name Role Phone William Craig MD Primary Care Provider [phone] Encounter Details Date Type Department Care Team (Latest Contact Info) Description 04/19/2024 5:20 PM CDT - 04/19/2024 11:59 PM CDT Hospital Encounter [facility] Outside Films [address] [place] [address] Discharge Disposition: Discharge to home or self care Social History Tobacco Use Types Packs/Day Years Used Date Smoking Tobacco: Never Assessed [facility] Utilities Answer Date Recorded In the past 12 months has [employer], gas, oil, or water company threatened [...] How often do you attend chur or taoism services? 1 to 4 times per year 04/20/2024 Do you belong to any clubs o r organizations such as restoration groups, unions, fraternal or athletic groups, or [...] any time in the past 12 m [facility], were you homeless or living in [...] on file Legal Sex Female 12:40 AM TOURIST GUIDE Gender Identity Not on file Sexual Orientation [...] on filedocumented in this encounter Care Teams Sinker Winder Relationship Specialty Start Date End Date William Craig MD PCP - General Internal Medicine 02/03/24 documented as of this encounter
--- OUTSIDE RECORDS SUMMARY | 2024-06-28 23:39 | XMS_ITS | Encounter Summary ---
Author Organization [facility] Healthcare Address [address] [place] [address] Care Team Providers Care Head Gauge Unit Operator Name Role Phone William Craig MD Primary Care Provider [phone] Reason for Visit * Auth/Cert (Routine) Specialty Diagnoses / Procedures Referred By Contac t Referred To Contact Diagnoses Altered mental status, unspecified altered mental status type Confusion; Weakness Procedures NA Referral ID Status Reason Start Date Expiration Date Visits Re quested Visits Authorized [id number] 1 1 Encounter Details Date Type Department Care Team (Late st Contact Info) Description 04/22/2024 9:55 AM CDT Anesthesia Event [facility] Cardiac Fence Manufacture Supervisor [address] [place] [address] Sharon Betancourt MD [address] [facility] [address] [place] [address] Patt Munguia, MANAGER STYLIST [address] [place] [address] Anesthesia Record Procedure Summary Procedure Name Responsible Anesthesiologist Anesthesia Start Time Anesthesia Stop Time TRANSESOPHAGEAL ECHO (RUT) W DOPPLER/CF Sharon Betancourt MD 04/22/24 0955 04/22/24 1024 Events [...] Recorded In the past 12 months has [employer], gas, oil, or water [employer] threatened to shut off services in your [...] 04/20/2024 How often do you attend chur Explorys or adventism services? 1 to 4 times per year 04/20/2024 Do you belong to any clubs o r organizations such as mandaeism groups, unions, fraternal or athletic groups, or [...] any time in the past [address] [facility], were you homeless or living in a jail (including now)? No 04/20/2024 Personal Safety Answer Date Recorded Have you ever been in or are you currently in a harmful physical or emotional relationship or is someone making you feel afraid or unsafe? Denies 04/20/2024 Comments No Sex and Gender Information Value Date Recorded Sex Assigned at Not on file Legal Sex Female 12:40 AM PIZZA HUT TEAM MEMBER Gender Identity Not on file Sexual Orientation Not on file documented as of this encounter OR Notes * Anesthesia Postprocedure Evaluation - Sharon Betancourt MD - 04/22/2024 3:11 PM CDT Patient: Senia Ruth Procedure Summary Date: 04/22/24 Room / Location: [facility] Cardiac Fence Manufacture Supervisor Anesthesia Start: 0955 Anesthesia Stop: 1024 Procedure: [...] Complete Set By: Yeni Fine [facility] at 04/20/2024 11:46 AM Status Comment [...] Medication protocol when under care of a MANAGER STYLIST Planned anesthesia: MAC Induction: Induction: intravenous. Informed Consent: Discussed plan with MANAGER STYLIST. Anesthesia plan and risks discussed with patient. [...] mg documented in this encounter Care Teams Head Gauge Unit Operator Relationship Specialty Start Date End Date William Craig MD PCP - General Internal Medicine 02/03/24 documented as of this encounter
--- OUTSIDE RECORDS SUMMARY | 2024-06-28 23:39 | XMS_ITS | Encounter Summary ---
Author Organization [facility] Healthcare Address [address] [place] [address] Care Team Providers Care Supplier Diversity Director Name Role Phone William Craig MD Primary Care Provider [phone] Encounter Details Date Type Department Care Team (Late st Contact Info) Description 04/19/2024 Documentation [facility] Medical Group [facility] Hospitalists [address] [place] [phone] Mindy Tabor MD [address] [place] [address] [place] [address] Social History Tobacco Use Types Packs/Day Years Used Date Smoking Tobacco: Never Assessed [facility] Utilities Answer Date Recorded In the past 12 months has [employer] electric, gas, oil, or water company threatened [...] often do you attend chur ch or jain services? 1 to 4 times per year 04/20/2024 Do you belong to any clubs o r organizations such as judaism groups, unions, fraternal or athletic groups, or [...] any time in the past 12 m [facility], were you homeless or living in a prison (including now)? No 04/20/2024 Personal Safety Answer Date Recorded Have you ever been in or are you currently in a harmful physical or emotional relationship or is someone making you feel afraid or unsafe? 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 Recent stroke and discharged [...] csmall vessel OSH does not have neuro vocational case manager today. Dr. Rodgers Neuro is agreeable to consult. Will push images to [employer]. documented in this encounter Plan of Treatment Not on file documented as of this encounter Visit Diagnoses Not on filedocumented in this encounter Care Teams Supplier Diversity Director Relationship Specialty Start Date End Date William Craig MD PCP - General Internal Medicine 02/03/24 documented as of this encounter
--- OUTSIDE RECORDS SUMMARY | 2024-06-28 23:39 | XMS_ITS | Encounter Summary ---
Author Organization [facility] Healthcare Address [address] [place] [address] Care Team Providers Care Information Tech Name Role Phone William Craig MD Primary Care Provider Reason for Visit * Auth/Cert (Routine) Specialty Diagnoses / Procedures Referred By Contac t Referred To Contact Diagnoses Altered mental status, unspecified altered mental status type Confusion; Weakness Procedures NA Referral ID Status Reason Start Date Expiration Date Visits Re quested Visits Authorized [id number] 1 1 Encounter Details Date Type Department Care Team (Latest Contact Info) Description 04/20/2024 3:32 AM CDT - 05/03/2024 3:33 PM CDT Hospital Encounter [address] [address] Mindy Tabor MD [address] [place] [address] [phone] Man Roberts MD [address] [place] [address] [phone] Sosa Andino MD [address] [place] [address] [phone] Giancarlo Durant MD [address] [place] [phone] Thang Del Valle DO [address] [place] [address] [phone] Ulises O[address] [facility] HOSPITALIST OFFICE, [place] [address] Hailey Carney MD [address] [facility] [place] [address] Cerebrovascular accident (CVA), unspecified mechanism (HCC) (Primary Dx) Discharge Disposition: Discharge to SNF Social History Tobacco Use Types Packs/Day Years Used Date Smoking Tobacco: Former Cigarettes Q uit: 2010 Smokeless Tobacco: Never Tobacco Cessation:Counseling Given: Not Answered [facility] Utilities Answer Date Recorded In the past 12 months has [employer], gas, oil, or water company threatened to [...] often do you attend chur ch or amish services? 1 to 4 times per year 04/20/2024 Do you belong to any clubs o r organizations such as oriental orthodox groups, unions, fraternal or athletic groups, or [...] any time in the past [address] 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 Poor vision. And worsening [...] 04, 2024 50,000 Units, oral, Weekly peg 231-fxpvcitchdlo-zvgmpaxe 1-0.2-0.2 % ophthalmic solution Commonly known as: [...] Your Medications These medications were sent to [address] [id number] rivaroxaban 2.5 mg tablet Information about where to get these medications is not yet available Ask your nurse or doctor about these medications acetaminophen 650 mg suppository divalproex 125 mg capsule ergocalciferol 50,000 unit capsule peg 025-lorkbggxezbu-afzjhtuj 1-0.2-0.2 % ophthalmic solution Time Spent in [...] Medicine Relationship: PCP - General [address] [facility] [address] Next Steps: Follow up Lisa Pham NP Specialty: Neurology [address] [place] [address] DR STOVALL [address] [place] [id number] Next Steps: Follow up on 06/06/2024 Instructions: appointment time: 1:00 pm Braden Fernandez MD Specialty: Vascular Surgery [address] [place] [address] DR STOVALL [address] [place] [address] Next Steps: Schedule an appointment as soon as possible for a visit in 6 month(s) Please schedule an appointment with the following provider(s): William Craig MD [address] [facility] [address] Follow up Lisa Pham NP [address] [place] [address] DR STOVALL [address] [place] [phone] Follow up on 06/06/2024 appointment time: 1:00 pm Braden Fernandez MD [address] [facility] [address] [phone] Schedule an appointment as soon as possible [...] same day for detailed evaluation of bilateral, waawi-sofzdvl-txup-left, acute infarcts superimposed on constellation of chronic findings. 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 Patentleft PARTS TECHNICIAN, noting variable, to include severe, stenosis along [...] earlier same day for detailed evaluation of bilateral,gmsck-huqaimd-zvgv-left, acute infarcts superimposed on constellation of chronic findings. 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 NICOLAS T: Report ID: [id number] Reading Location: [id number] MRI Brain WO Contrast Result Date: 04/20/2024 [...] fluid collection. Normal size ventricles. BRAIN VOLUME: Gmop-cf-bywflwgz cerebral volume loss. PITUITARY: Unremarkable. VASCULATURE: Skull [...] Angel Kyle M.D. AG T: Report ID: [id number] Reading Location: [id number] XR Chest 1 View Result Date: 04/20/2024 [...] MM D: 9:03 AM T: Report ID: [id number] Reading Location: [id number] Recent Labs: Recent Labs Lab Units 04/27/244104/25/2442 [...] -- -- 0.70 -- 0.71 -- 0.72 ROZ-NWY-UYELTSQ mL/min/1.73 m2 -- -- >90 -- >90 [...] Ensure High Protein - Chocolate, Glucerna - Montrose; Quantity (# of cans): 1 can All Meals Comments: Rotate flavors please. Question Answer Comment (MHB/MHE) Select Supplement: Ensure High Protein - Vanilla (MHB/MHE) Select Supplement: Ensure High Protein - Chocolate (MHB/MHE) Select Supplement: Glucerna - Montrose Quantity (# of cans): 1 can 04/27/24 [...] juice, cooking water, fruit juice, milk, or bbpc-cyx-dsne while cookingto make foods moist. Serve foods [...] to eat. Call inpatient dietitian office at [facility] in [place] with any nutrition-related questions or concerns ([phone]). Thank you! documented in this encounter Medications [...] Departure Means Destination Comment s Discharge to [facility] Ambulance/EMS [facility] documented in this encounter Progress Notes * [...] lying in the bed. Lungs CTA Heart: LRCZ1V3, Abd: +BS, Non Tender, Non distended,Lower Ext: [...] MD 20 mg at 05/03/24 0829 peg 404-qqxyicezwcam-doszerca (ARTIFICAL TEARS) 1-0.2-0.2 % ophthalmic solution 1 [...] 0.5-20 mL intra-catheter Q8H ROBERTO Jammie Dickson, PLANT TECHNICAL SPECIALIST 10mL at 05/02/24 1249 sodium chloride 0.9% [...] Continue current medication. Plan to discharge to [facility] facility today PT/OT: Case discussed with Case Management and Social Work Assistant Medical complexity/risk: Low My total encounter time on 05/03/2024 was 25 minutes which was spent in the activities documented in the note. This includes time spent prior to the visit and after the visit in direct care of the patient. This time does not include time spent in any separately reportable services. Voice recognition software [employer] Fluency Direct may have been used dictate and transcribe this document. Pipe Line Gauger variances may occur. Despite proofreading, typographical errors [...] with current plan Recommendation/Plan OT Recommendation (S) Detention Facility Progress during current admission Slow progress, [...] posted at bedside and within medical record. Quarter Backer Services Utilized: NO Patient is identified by name and date of on this visit. Cotx with Melissa Dobbins PTA for safety of patient and staff due to current diagnosis, medical status,and current level of functional performance. MOLD WASHER charging for this session. * Melissa Figueroa [...] with current plan Recommendation/Plan PT Recommendation/Plan (S) Detention Facility Patient at high risk for Falls;Readmission;Injury [...] status, and unknown level of functional performance. Quarter Backer Services Utilized: NO Educated the patient to the role of physical therapy, plan of care, goals of therapy, rationale forprogressing mobility Patient was left with all needs met and equipment intact. Mobility and ADL status posted at bedsideand within medical record. Multi-Disciplinary Problems (from Physical Therapy) Active Problems Problem: PT [facility] Start Date: 04/20/24 Goal Start Date Expected End Date End Date PT LT - [facility] 1 04/20/24 05/04/24 -- Goal Details: Pt will transfer supine<>sit with min assist x 1 Goal Start Date Expected End Date End Date PT [facility] - [facility] 2 04/20/24 05/04/24 -- Goal Details: Pt will transfer bed<>chair with assistive device as needed with min assist x 1 Goal Start Date Expected End Date End Date PT [facility] 3 04/20/24 05/04/24 -- Goal Details: Pt will sit at edge of bed with supervision for balance, x 5 minutes Goal Start Date Expected End Date End Date PT [facility] 4 04/20/24 05/04/24 -- Goal Details: Pt will ambulate 25 feet with assistive device as needed with min assist x 1 Goal Start Date Expected End Date End Date PT [facility] 5 04/20/24 05/04/24 -- Goal Details: [...] Continue with current plan Recommendation/Plan PT Recommendation/Plan Detention Facility Patient at high risk for Falls;Readmission;Injury [...] Time 1434 Time Calculation (min) 36 min Quarter Backer Services Utilized: NO Educated the patient to the role of physical therapy, plan of care, goals of therapy, rationale forprogressing mobility and home exercise program. Patient was left with all needs met and equipment intact. Mobility and ADL status posted at bedsideand within medical record. Multi-Disciplinary Problems (from Physical Therapy) Active Problems Problem: PT [facility] Start Date: 04/20/24 Goal Start Date Expected End Date End Date PT [facility] - [facility] 1 04/20/24 05/04/24 -- Goal Details: Pt will transfer supine<>sit with min assist x 1 -progressing Goal Start Date Expected End Date End Date PT [facility] - [facility] 2 04/20/24 05/04/24 -- Goal Details: Pt [...] End Date End Date PT LTG - [facility] 5 04/20/24 05/04/24 -- Goal Details: Pt will perform BLE seated therex x 10 reps each with supervision -progressing Cotreat with Nereida HOOD * Lissette Martinez COTA - 05/02/2024 1:57 PM CDT Occupational Therapy 05/02/24 2007 General Session Type Treatment OT Received On [...] Continue with current plan Recommendation/Plan OT Recommendation Detention Facility Patient at high risk for Falls;Readmission;Injury [...] interruption co-tx with SANDI Celis for safety Quarter Backer Services Utilized: NO Patient is identified by [...] arm/leg), HTN, and HLD that presented to [facility] ED from rehab center with decline in mental status and lethargy x 1-2 days. Patient only oriented to person; knows name and month/day of ; but couldn't provide year. Able to follow most commands correctly. Doesn't answer all questions appropriately. Repeats yes to questions that require more than yes or no answer. [facility] hospital reported pt oreinted x2 at baseline. [...] 26* 24 CREATININE mg/dL 0.74 0.72 0.72 TFX-XRN-ZQNOFJC mL/min/1.73 m2 >90 >90 >90 CALCIUM mg/dL [...] Factor: 1324.8 Equation Chosen to Use [place]: [facility] Activity Factor: 1.2 Weight Used for Equation [...] Ensure High Protein - Chocolate, Glucerna - Montrose; Quantity (# of cans): 1 can All Meals Comments: Rotate flavors please. Question Answer Comment (MHB/MHE) Select Supplement: Ensure High Protein - Vanilla (MHB/MHE) Select Supplement: Ensure High Protein - Chocolate (MHB/MHE) Select Supplement: Glucerna - [place]rose Quantity (# of cans): 1 can 04/27/24 [...] bedside, had some difficulties answering questions.Residing at [facility]. Reports eating well there, 3x daily. Reports [...] juice, cooking water, fruit juice, milk, or swnr-fej-gnso while cookingto make foods moist. Serve foods [...] or syrup from canned fruit Create a trei from water and flour to thicken the broth, gravy, or sauce from soups, stews, and casseroles Monitor leftover foods while reheating to make sure they don???t form a tough outer crust that could make the food harder to eat. Call inpatient dietitian office at [facility] in [place] with any nutrition-related questions or concerns ([phone]). Thank you! Caty Barba RD * Thang [...] same day for detailed evaluation of bilateral, ihdzl-ubxiyva-qtfj-left, acute infarcts superimposed on constellation of chronic findings. 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 Patent left PARTS TECHNICIAN, noting variable, to include severe, stenosis along [...] same day for detailed evaluation of bilateral, qzkrq-nwglmlc-xuhc-left, acute infarcts superimposed on constellation of chronic findings. 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 Normal size ventricles. BRAIN VOLUME: Nyvb-fc-epgnhfrz cerebral volume loss. PITUITARY: Unremarkable. VASCULATURE: Skull [...] Angel Kyle M.D. AG T: Report ID: [id number] Reading Location: [id number] Neuro CT Outside Reference Result Date: 04/20/2024 [...] Johan Wilson M.D. MM T: Report ID: [id number] Reading Location: [place] [address] Current Facility-Administered Medications Medication Dose Route Frequency [...] MD 20 mg at 05/01/24 0823 peg 751-nsnbjspgkkar-ytshzngl (ARTIFICAL TEARS) 1-0.2-0.2 % ophthalmic solution 1 [...] 0.5-20 mL intra-catheter Q8H ROBERTO Jammie Dickson, PLANT TECHNICAL SPECIALIST 10mL at 05/01/24 1430 sodium chloride 0.9% [...] Per ED record, she was sent from [facility] for mental status decline over last [...] from OS. OS did not have neuro applications programmer. Dr. Rodgers Neuro agreeable to consult. Upon [...] R renal artery, L common carotid origin, Regrinder and CTS consulted. 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 -patent left PARTS TECHNICIAN with variable, to include severe, stenosis along [...] thrombus in multiple views mild TR, trace WA, slight restriction of mitral valve anterior leaflet, [...] DO 05/02/2024 7:34 AM * Kathy Montelongo, MOLD WASHER - 05/01/2024 8:50 AM CDT Physical Therapy [...] Continue with current plan Recommendation/Plan PT Recommendation/Plan Detention Facility Patient at high risk for Falls;Readmission;Injury [...] End Date End Date PT LTG - [facility] 4 04/20/24 05/04/24 -- Goal Details: Pt will ambulate 25 feet with assistive device as needed with min assist x 1 Goal Start Date Expected End Date End Date PT LTG - [facility] 5 04/20/24 05/04/24 -- Goal Details: Pt will perform BLE seated therex x 10 reps each with supervision Quarter Backer Services Utilized: no Educated the patient to [...] same day for detailed evaluation of bilateral, tkmuq-btjtjzw-vuvg-left, acute infarcts superimposed on constellation of chronic findings. 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 Patent left PARTS TECHNICIAN, noting variable, to include severe, stenosis along [...] same day for detailed evaluation of bilateral, pxahk-dfxnbtp-nnyj-left, acute infarcts superimposed on constellation of chronic findings. 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 Normal size ventricles. BRAIN VOLUME: Uexx-lm-ymvwaqyf cerebral volume loss. PITUITARY: Unremarkable. VASCULATURE: Skull [...] Angel Kyle M.D. AG T: Report ID: [id number] Reading Location: [id number] Neuro CT Outside Reference Result Date: 04/20/2024 [...] Johan Wilson M.D. MM T: Report ID: [id number] Reading Location: [id number] Current Facility-Administered Medications Medication Dose Route Frequency [...] MD 20 mg at 04/30/24 1253 peg 899-qailgnodfknu-qjfvjrat (ARTIFICAL TEARS) 1-0.2-0.2 % ophthalmic solution 1 [...] mg 20 mg oral Daily Jammie Dickson, PLANT TECHNICAL SPECIALIST 20 mg at 04/30/24 1253 sodium chloride 0.9% flush 0.5-20 mL 0.5-20 mL intra-catheter Q8H ROBERTO Jammie Dickson, PLANT TECHNICAL SPECIALIST 10mL at 04/30/24 1301 sodium chloride 0.9% flush 0.5-20 mL 0.5-20 mL intra-catheter PRN Jammie Dickson, PLANT TECHNICAL SPECIALIST tamsulosin (FLOMAX) extended release capsule 0.4 mg 0.4 mg oral Daily with evening meal Giancarlo Durant MD 0.4 mg at 04/30/24 1735 verapamil SR (CALAN SR) extended release tablet 180 mg 180 mg oral Daily Giancarlo Durant MD 180mg at 04/30/24 1253 63 y/o F female with PMH of recent CVA w/left sided residual hemiparesis (left arm/leg), HTN, HLD who initially presented to [facility] ED from rehab center with decline in mental status, lethargy x 1-2 days. Patient only oriented to person; knows name and month/day of ; but couldn't provide year. Ableto follow most commands correctly. Doesn't answer all questions appropriately. Repeats yes to questions that require more than yes or no answer. [facility] hospital reported pt oreinted x2 at baseline. Per ED record, she was sent from [facility] for mental status decline over last [...] from OSH. OSH did not have neuro applications programmer. Dr. Rodgers Neuro agreeable to consult. Upon [...] R renal artery, L common carotid origin, Regrinder and CTS consulted. 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 Patent left PARTS TECHNICIAN, noting variable, to include severe, stenosis along [...] earlier same day for detailed evaluation ofbilateral, igqfa-tvpserw-xcbx-left, acute infarcts superimposed on constellation of chronic findings. 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 Normal size ventricles. BRAIN VOLUME: Xnsa-by-ysactagp cerebral volume loss. PITUITARY: Unremarkable. VASCULATURE: Skull [...] signed by Angel SIMPSON T: Report ID: [id number] Reading Location: [id number] Neuro CT Outside Reference Result Date: 04/20/2024 [...] Johan Wilson M.D., MM T: Report ID: [id number] Reading Location: [id number] Current Facility-Administered Medications Medication Dose Route Frequency Provider Last Rate Last Admin acetaminophen (TYLENOL) tablet 650 mg 650 mg oral Q6H PRN Jammie Dickson PLANT TECHNICAL SPECIALIST 650 mg at 04/28/241953 Or acetaminophen (TYLENOL) 32 mg/mL oral liquid 650 mg 650 mg feeding tube Q6H PRN KristenL. Dickson NP Or acetaminophen (TYLENOL) suppository 650 mg 650 mg rectal Q6H PRN Jammie Dickson, PLANT TECHNICAL SPECIALIST benzocaine-menthoL (CHLORASEPTIC) lozenge 1 lozenge 1 lozenge [...] MD 20 mg at 04/29/24 0926 peg 279-zqcyityqwjzx-sxumvtuf (ARTIFICAL TEARS) 1-0.2-0.2 % ophthalmic solution 1 [...] mL 0.5-20 mL intra-catheter PRN Jammie Dickson, PLANT TECHNICAL SPECIALIST tamsulosin (FLOMAX) extended release capsule 0.4 mg [...] Per ED record, she was sent from [facility] for mental status decline over last [...] from OSH. OS did not have neuro applications programmer. Dr. Rodgers Neuro agreeable to consult. Upon [...] R renal artery, L common carotid origin, Regrinder and CTS consulted. 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 LUE LLE paresis Pt appear at baseline now this early afternoon according to Gbp was just restarted but taking as needed at rehab . 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 Recommend anticoagulation when ok [...] Stable Tolerating diet Discharge pending placement in [facility] facility OBJECTIVE Vitals: 24hr Min/Max: Temp Min: [...] LLE, has resistance in LUE, 3/5 hand ship captain Psychiatric: Affect appropriate, Alert Psychiatric - Orientation: [...] same day for detailed evaluation of bilateral, vsnio-rjgcosn-lshs-left, acute infarcts superimposed on constellation of chronic findings. 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 Patent left PARTS TECHNICIAN, noting variable, to include severe, stenosis along [...] earlier same day for detailed evaluation ofbilateral, zhyrw-kfwbqhv-sdib-left, acute infarcts superimposed on constellation of chronic findings. 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 Normal size ventricles. BRAIN VOLUME: Rqks-vq-puyrutch cerebral volume loss. PITUITARY: Unremarkable. VASCULATURE: Skull [...] Angel Kyle M.D. AG T: Report ID: [id number] Reading Location: [id number] Neuro CT Outside Reference Result Date: 04/20/2024 [...] Johan Wilson M.D. MM T: Report ID: [id number] Reading Location: [place] [address] Current Facility-Administered Medications Medication Dose Route Frequency [...] MD 20 mg at 04/29/24 0926 peg 446-zwiusagencxz-tqumxcpn (ARTIFICAL TEARS) 1-0.2-0.2 % ophthalmic solution 1 [...] 0.5-20 mL intra-catheter Q8H ROBERTO Jammie Dickson, PLANT TECHNICAL SPECIALIST 10mL at 04/29/24 0518 sodium chloride 0.9% [...] carotid doppler done -depakote for seizure prophy -price economist recommending consider AC, pt has been on [...] - voiding spontaneously -final blood culture from [facility] also ngtd, appreciate staff obtaining records Type 2DM: -HgbA1c 6.2 -Blood glucose monitoring ACHS. -SSI ordered -Hold dose of metformin HTN: -Hold antihypertensives to avoid hypotension -resume when appropriate -routine VS; monitor BP closely Voice recognition software [employer] was used dictate and transcribe this document. Pipe Line Gauger variances may occur. Despite proofreading, typographical errors may occur. For patients or family members viewing this note through [employer]: This note was written as a communication [...] the next 24 hours Possible discharge to [facility] in the next 24 hours Follow-up [...] Giancarlo Durant MD 04/29/2024 3:04 PM * HollywoodMelissa aparicio PTA - 04/29/2024 2:01 PM CDT [...] completed No Level II required. Individual ID [id number] Assessment ID [id number] Eloise Kapoor 11:15 AM 04/28/2024 * Melissa Figueroa [...] with current plan Recommendation/Plan PT Recommendation/Plan (S) Detention Facility Patient at high risk for Falls;Readmission;Injury [...] status, and unknown level of functional performance. Quarter Backer Services Utilized: NO Educated the patient to the role of physical therapy, plan of care, goals of therapy, rationale forprogressing mobility Patient was left with all needs met and equipment intact. Mobility and ADL status posted at bedsideand within medical record. Multi-Disciplinary Problems (from Physical Therapy) Active Problems Problem: PT [facility] Start Date: 04/20/24 Goal Start Date Expected End Date End Date PT [facility] 1 04/20/24 05/04/24 -- Goal Details: Pt will transfer supine<>sit with min assist x 1 Goal Start Date Expected End Date End Date PT [facility] 2 04/20/24 05/04/24 -- Goal Details: Pt will transfer bed<>chair with assistive device as needed with min assist x 1 Goal Start Date Expected End Date End Date PT [facility] 3 04/20/24 05/04/24 -- Goal Details: Pt will sit at edge of bed with supervision for balance, x 5 minutes Goal Start Date Expected End Date End Date PT [facility] 4 04/20/24 05/04/24 -- Goal Details: Pt will ambulate 25 feet with assistive device as needed with min assist x 1 Goal Start Date Expected End Date End Date PT [facility] 5 04/20/24 05/04/24 -- Goal Details: Pt [...] with current plan Recommendation/Plan OT Recommendation (S) Detention Facility Patient at high risk for Falls;Readmission;Injury [...] posted at bedside and within medical record. Quarter Backer Services Utilized: NO Patient is identified by [...] arm/leg), HTN, and HLD that presented to [facility] ED from rehab center with decline in mental status and lethargy x 1-2 days. Patient only oriented to person; knows name and month/day of ; but couldn't provide year. Able to follow most commands correctly. Doesn't answer all questions appropriately. Repeats yes to questions that require more than yes or no answer. [facility] reported pt oreinted x2 at baseline. Will [...] sodium chloride 0.9%, 0.5-20 mL, intra-catheter, Q8H ROBETRO tamsulosin, 0.4 mg, oral, Daily with evening [...] 17 CREATININE mg/dL 0.70 < > 0.72 [id number] mL/min/1.73 m2 >90 < > >90 CALCIUM [...] Ensure High Protein - Chocolate, Glucerna - [place]; Quantity (# of cans): 1 can All Meals Comments: Rotate flavors please. Question Answer Comment (MHB/MHE) Select Supplement: Ensure High Protein - Vanilla (MHB/MHE) Select Supplement: Ensure High Protein - Chocolate (MHB/MHE) Select Supplement: Glucerna - [place] Quantity (# of cans): 1 can 04/27/24 [...] bedside, had some difficulties answering questions.Residing at [facility]. Reports eating well there, 3x daily. Reports [...] juice, cooking water, fruit juice, milk, or ylym-gnd-kpyp while cookingto make foods moist. Serve foods [...] to eat. Call inpatient dietitian office at [facility] in [place] with any nutrition-related questions or concerns ([phone]). Thank you! Senia Kong RD * Giancarlo [...] everywhere Will request UA.Urine cx result from [facility] Husbands states fernandez placed in the last week or so Pt deny dysuria, discomfort w urination Major cva in January and in mar, was sjust transferred to rehab after stroke teated at [facility] [place]. LUE LLE paresis Pt appear at baseline now this early afternoon according to Gbp was just restarted but taking as needed at rehab . 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 Recommend anticoagulation when ok [...] LLE, has resistance in LUE, 3/5 hand ship captain Psychiatric: Affect appropriate, Alert Psychiatric - Orientation: [...] same day for detailed evaluation of bilateral, ikzkq-losbjwq-aygi-left, acute infarcts superimposed on constellation of chronic findings. INTRACRANIAL VESSELS [place]: Occlusion of the P2 segment of the rightPCA. Patent left PARTS TECHNICIAN, noting variable, to include severe, stenosis along [...] same day for detailed evaluation of bilateral, zsoew-uvxruog-jgib-left, acute infarcts superimposed on constellation of chronic findings. Occlusion of the P2 segment of the right PARTS TECHNICIAN; patent left PARTS TECHNICIAN with variable, to include severe, s tenosis [...] Electronically signed by Steven VALENZUELA T: Report ID:[id number] Reading Location: [place] [id number] MRI Brain WO Contrast Result Date: 04/20/2024 [...] fluid collection. Normal size ventricles. BRAIN VOLUME: Yutg-rv-vglfbuus cerebral volume loss. PITUITARY: Unremarkable. VASCULATURE: Skull [...] Angel Kyle M.D. AG T: Report ID: [id number] Reading Location: [id number] Neuro CT Outside Reference Result Date: 04/20/2024 [...] Johan Wilson M.D. MM T: Report ID: [id number] Reading Location: [id number] Current Facility-Administered Medications Medication Dose Route Frequency Provider Last Rate Last Admin acetaminophen (TYLENOL) tablet 650 mg 650 mg oral Q6H PRN Jammie Dickson, PLANT TECHNICAL SPECIALIST 650 mg at 04/26/24 0423 Or acetaminophen [...] MD 20 mg at 04/27/24 0835 peg 376-mzxghjmumdun-zrndeifk (ARTIFICAL TEARS) 1-0.2-0.2 % ophthalmic solution 1 [...] mg 20 mg oral Daily Jammie Dickson, PLANT TECHNICAL SPECIALIST 20 mg at 04/27/24 0834 sodium chloride 0.9% flush 0.5-20 mL 0.5-20 mL intra-catheter Q8H ROBERTO Jammie Dickson, PLANT TECHNICAL SPECIALIST 10mL at 04/27/24 1241 sodium chloride 0.9% flush 0.5-20 mL 0.5-20 mL intra-catheter PRN Jammie Dickson, PLANT TECHNICAL SPECIALIST tamsulosin (FLOMAX) extended release capsule 0.4 mg [...] carotid doppler done -depakote for seizure prophy -price economist recommending consider AC, pt has been on [...] VS; monitor BP closely Voice recognition software [employer] Fluency Direct was used dictate and transcribe this document. Pipe Line Gauger variances may occur. Despite proofreading, typographical errors may occur. For patients or family members viewing this note through [employer]: This note was written as a communication [...] the next 24 hours Possible discharge to [facility] in the next 24 hours Follow-up [...] with current plan Recommendation/Plan OT Recommendation (S) Detention Facility Patient at high risk for Falls;Readmission;Injury [...] posted at bedside and within medical record. Quarter Backer Services Utilized: NO Patient is identified by [...] with current plan Recommendation/Plan PT Recommendation/Plan (S) Detention Facility ([place]PT [place] ok'd the change to [...] status, and unknown level of functional performance. Quarter Backer Services Utilized: NO Educated the patient to the role of physical therapy, plan of care, goals of therapy, rationale forprogressing mobility Patient was left with all needs met and equipment intact. Mobility and ADL status posted at bedsideand within medical record. Multi-Disciplinary Problems (from Physical Therapy) Active Problems Problem: PT [facility] Start Date: 04/20/24 Goal Start Date Expected End Date End Date PT [facility] - [facility] 1 04/20/24 05/04/24 -- Goal Details: Pt will transfer supine<>sit with min assist x 1 Goal Start Date Expected End Date End Date PT [facility] 2 04/20/24 05/04/24 -- Goal Details: Pt will transfer bed<>chair with assistive device as needed with min assist x 1 Goal Start Date Expected End Date End Date PT [facility] 3 04/20/24 05/04/24 -- Goal Details: Pt will sit at edge of bed with supervision for balance, x 5 minutes Goal Start Date Expected End Date End Date PT [facility] 4 04/20/24 05/04/24 -- Goal Details: Pt will ambulate 25 feet with assistive device as needed with min assist x 1 Goal Start Date Expected End Date End Date PT [facility] 5 04/20/24 05/04/24 -- Goal Details: Pt [...] with current plan Recommendation/Plan OT Recommendation (S) Detention Facility Patient at high risk for Falls;Readmission;Injury [...] progress, cognitive deficits Time Calculation Start Time 8017 Stop Time 1008 Time Calculation (min) 23 [...] posted at bedside and within medical record. Quarter Backer Services Utilized: NO Patient is identified by [...] status, and unknown level of functional performance. Quarter Backer Services Utilized: NO Educated the patient to the role of physical therapy, plan of care, goals of therapy, rationale forprogressing mobility Patient was left with all needs met and equipment intact. Mobility and ADL status posted at bedsideand within medical record. Multi-Disciplinary Problems (from Physical Therapy) Active Problems Problem: PT [facility] Start Date: 04/20/24 Goal Start Date Expected End Date End Date PT [facility] - [facility] 1 04/20/24 05/04/24 -- Goal Details: Pt will transfer supine<>sit with min assist x 1progressing Goal Start Date Expected End Date End Date PT [facility] 2 04/20/24 05/04/24 -- Goal Details: Pt will transfer bed<>chair with assistive device as needed with min assist x 1 Goal Start Date Expected End Date End Date PT [facility] 3 04/20/24 05/04/24 -- Goal Details: Pt [...] everywhere Will request UA.Urine cx result from [facility] Husbands states fernandez placed in the last week or so Pt deny dysuria, discomfort w urination Major cva in January and in mar, was sjust transferred to rehab after stroke teated [facility]. LUE LLE paresis Pt appear at baseline now this early afternoon according to Gbp was just restarted but taking as needed at rehab . 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 Recommend anticoagulation when ok [...] LLE, has resistance in LUE, 3/5 hand ship captain Psychiatric: Affect appropriate, Alert Psychiatric - Orientation: [...] same day for detailed evaluation of bilateral, ptqky-gtnlzsr-oasp-left, acute infarcts superimposed on constellation of chronic findings. 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 Patent left PARTS TECHNICIAN, noting variable, to include severe, stenosis along [...] earlier same day for detailed evaluation ofbilateral, idppv-sgvyuiv-waux-left, acute infarcts superimposed on constellation of chronic findings. Occlusion of the P2 segment of the right PARTS TECHNICIAN; patent left PARTS TECHNICIAN with variable, to include severe, st enosis [...] signed by Steven VALENZUELA T: Report ID: [id number] Reading Location: [id number] MRI Brain WO Contrast Result Date: 04/20/2024 [...] fluid collection. Normal size ventricles. BRAIN VOLUME: Qoyc-ow-oisygnei cerebral volume loss. PITUITARY: Unremarkable. VASCULATURE: Skull [...] Angel Kyle M.D. AG T: Report ID: [id number] Reading Location: [id number] Neuro CT Outside Reference Result Date: 04/20/2024 [...] Johan Wilson M.D. MM T: Report ID: [id number] Reading Location: [id number] Current Facility-Administered Medications Medication Dose Route Frequency [...] 100 mL IVPB 1,000 mg intravenous Q6H [facility] Sosa Andino MD 200 mL/hr at 04/26/24 [...] BID Sailaja Bloom, ELLIOT 500 mg at 04/25/242006 ergocalciferol (VITAMIN D) [...] MD 20 mg at 04/25/24 0921 peg 668-xuhjqteecxaw-rowtthdn (ARTIFICAL TEARS) 1-0.2-0.2 % ophthalmic solution 1 [...] flush 0.5-20 mL 0.5-20 mL intra-catheter Q8H [facility] Jammie Dickson NP 10mL at 04/26/24 0535 sodium chloride 0.9% flush 0.5-20 mL 0.5-20 mL intra-catheter PRN Jammie Dickson, PLANT TECHNICAL SPECIALIST A/P: MDM Principal Problem: Altered mental status, [...] carotid doppler done -depakote for seizure prophy -price economist recommending consider AC, pt has been on [...] VS; monitor BP closely Voice recognition software Gem Direct was used dictate and transcribe this document. Pipe Line Gauger variances may occur. Despite proofreading, typographical errors may occur. For patients or family members viewing this note through [employer]: This note was written as a communication [...] 05/02/2024 11:05 AM CDT * Viola Orozco, [facility] - 04/25/2024 8:52 AM CDT Physical Therapy [...] (from Physical Therapy) Active Problems Problem: PT [facility] Start Date: 04/20/24 Goal Start Date Expected End Date End Date PT [facility] - [facility] 1 04/20/24 05/04/24 -- Goal Details: Pt will transfer supine<>sit with min assist x 1 Goal Start Date Expected End Date End Date PT [facility] - [facility] 2 04/20/24 05/04/24 -- Goal Details: Pt will transfer bed<>chair with assistive device as needed with min assist x 1 Goal Start Date Expected End Date End Date PT [facility] - [facility] 3 04/20/24 05/04/24 -- Goal Details: Pt will sit at edge of bed with supervision for balance, x 5 minutes Goal Start Date Expected End Date End Date PT [facility] 4 04/20/24 05/04/24 -- Goal Details: Pt will ambulate 25 feet with assistive device as needed with min assist x 1 Goal Start Date Expected End Date End Date PT [facility] 5 04/20/24 05/04/24 -- Goal Details: Pt will perform BLE seated therex x 10 reps each with supervision Goals not met Quarter Backer Services Utilized: NO Educated the patient to [...] with current plan Recommendation/Plan OT Recommendation (S) Detention Facility Patient at high risk for Falls;Readmission;Injury [...] Time 0914 Time Calculation (min) 23 min Quarter Backer Services Utilized: NO Patient is identified by [...] everywhere Will request UA.Urine cx result from [facility] Husbands states fernandez placed in the last week or so Pt deny dysuria, discomfort w urination Major cva in January and in mar, was sjust transferred to rehab after stroke teated at [facility] [place]. LUE LLE paresis Pt appear at baseline now this early afternoon according to Gbp was just restarted but taking as needed at rehab . 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 Recommend anticoagulation when ok [...] same day for detailed evaluation of bilateral, fvgpz-fdigvcc-cscl-left, acute infarcts superimposed on constellation of chronic findings. 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 Patent left PARTS TECHNICIAN, noting variable, to include severe, stenosis along [...] earlier same day for detailed evaluation ofbilateral, shskv-neqmylm-elij-left, acute infarcts superimposed on constellation of chronic findings. Occlusion of the P2 segment of the right PARTS TECHNICIAN; patent left PARTS TECHNICIAN with variable, to include severe, st enosis [...] signed by Steven VALENZUELA T: Report ID: [id number] Reading Location: [place] [id number] MRI Brain WO Contrast Result Date: 04/20/2024 [...] fluid collection. Normal size ventricles. BRAIN VOLUME: Phvh-th-swpagfqy cerebral volume loss. PITUITARY: Unremarkable. VASCULATURE: Skull [...] Angel Kyle M.D. AG T: Report ID: [id number] Reading Location: [id number] Neuro CT Outside Reference Result Date: 04/20/2024 [...] Johan Wilson M.D. MM T: Report ID: [id number] Reading Location: [id number] Current Facility-Administered Medications Medication Dose Route Frequency Provider Last Rate Last Admin acetaminophen (TYLENOL) tablet 650 mg 650 mg oral Q6H PRN Jammie Dickson PLANT TECHNICAL SPECIALIST 650 mg at 04/23/24 1816 Or acetaminophen [...] MD 20 mg at 04/24/24 0838 peg 422-oiettyruuqse-xihourgv (ARTIFICAL TEARS) 1-0.2-0.2 % ophthalmic solution 1 [...] mg 20 mg oral Daily Jammie Dickson, PLANT TECHNICAL SPECIALIST 20 mg at 04/24/24 0838 sodium chloride 0.9% flush 0.5-20 mL 0.5-20 mL intra-catheter Q8H [facility] Jammie Dickson, PLANT TECHNICAL SPECIALIST 10mL at 04/25/24 0610 sodium chloride 0.9% flush 0.5-20 mL 0.5-20 mL intra-catheter PRN Jammie Dickson, PLANT TECHNICAL SPECIALIST A/P: MDM Principal Problem: Altered mental status, [...] carotid doppler done -depakote for seizure prophy -price economist recommending consider AC, pt has been on [...] VS; monitor BP closely Voice recognition software [employer] Direct was used dictate and transcribe this document. Pipe Line Gauger variances may occur. Despite proofreading, typographical errors may occur. For patients or family members viewing this note through [employer]: This note was written as a communication [...] MD 04/25/2024 7:30 AM * Misty Pelaez, [employer] [facility] - 04/24/2024 10:55 AM CDT Physical Therapy [...] Time 1115 Time Calculation (min) 20 min [employer] Backer Services Utilized: NO Educated the patient to the role of physical therapy, plan of care, goals of therapy, rationale forprogressing mobility Patient was left with all needs met and equipment intact. Mobility and ADL status posted at bedsideand within medical record. Multi-Disciplinary Problems (from Physical Therapy) Active Problems Problem: PT [facility] Start Date: 04/20/24 Goal Start Date Expected End Date End Date PT [facility] 1 04/20/24 05/04/24 -- Goal Details: Pt will transfer supine<>sit with min assist x 1 Goal Start Date Expected End Date End Date PT [facility] 2 04/20/24 05/04/24 -- Goal Details: Pt will transfer bed<>chair with assistive device as needed with min assist x 1 Goal Start Date Expected End Date End Date PT [facility] 3 04/20/24 05/04/24 -- Goal Details: Pt will sit at edge of bed with supervision for balance, x 5 minutes progressing Goal Start Date Expected End Date End Date PT [facility] 4 04/20/24 05/04/24 -- Goal Details: Pt will ambulate 25 feet with assistive device as needed with min assist x 1 not met Goal Start Date Expected End Date End Date PT [facility] 5 04/20/24 05/04/24 -- Goal Details: [...] everywhere Will request UA.Urine cx result from [facility] Husbands states fernandez placed in the last week or so Pt deny dysuria, discomfort w urination Major cva in January and in mar, was sjust transferred to rehab after stroke teated at [facility] [place]. LUE LLE paresis Pt appear at baseline now this early afternoon according to Gbp was just restarted but taking as needed at rehab . 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 Recommend anticoagulation when ok [...] same day for detailed evaluation of bilateral, tcpim-nwrxquq-qkzs-left, acute infarcts superimposed on constellation of chronic findings. 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 Patent left PARTS TECHNICIAN, noting variable, to include severe, stenosis along [...] earlier same day for detailed evaluation ofbilateral, jassw-eynmnnb-nxbi-left, acute infarcts superimposed on constellation of chronic findings. Occlusion of the P2 segment of the right PARTS TECHNICIAN; patent left PARTS TECHNICIAN with variable, to include severe, st enosis [...] signed by Steven VALENZUELA T: Report ID: [id number] Reading Location: [id number] MRI Brain WO Contrast Result Date: 04/20/2024 [...] fluid collection. Normal size ventricles. BRAIN VOLUME: Xnjw-fq-ogwofimk cerebral volume loss. PITUITARY: Unremarkable. VASCULATURE: Skull [...] 12:44 PM - Electronically signed by Angel yKle M.D. AG T: Report ID: [id number] Reading Location: [id number] Neuro CT Outside Reference Result Date: 04/20/2024 [...] Johan Wilson M.D. MM T: Report ID: [id number] Reading Location: [id number] Current Facility-Administered Medications Medication Dose Route Frequency Provider Last Rate Last Admin acetaminophen (TYLENOL) tablet 650 mg 650 mg oral Q6H PRN Jammie Dickson PLANT TECHNICAL SPECIALIST 650 mg at 04/23/24 1816 Or acetaminophen [...] MD 20 mg at 04/23/24 0914 peg 403-tuewlrbqhihn-jdkoeuvn (ARTIFICAL TEARS) 1-0.2-0.2 % ophthalmic solution 1 drop 1 drop each eye TID PRN Sosa Andino MD rosuvastatin (CRESTOR) tablet 20 mg 20 mg oral Daily Jammie Dickson NP 20 mg at 04/23/24 0854 sodium chloride 0.9% flush 0.5-20 mL 0.5-20 mL intra-catheter Q8H [facility] Jammie Dickson NP 10mL at 04/24/24 0635 [...] -vascular consult Thursday -depakote for seizure prophy -price economist recommending consider AC, pt has been on [...] was used dictate and transcribe this document. Pipe Line Gauger variances may occur. Despite proofreading, typographical errors may occur. For patients or family members viewing this note through [employer]: This note was written as a communication [...] Andino MD 04/24/2024 7:53 AM * DelgadoLalita, M[employer] WASHER - 04/23/2024 9:04 AM CDT Physical Therapy [...] Time 925 Time Calculation (min) 22 min Quarter [employer]er Services Utilized: NO Educated the patient to the role of physical therapy, plan of care, goals of therapy, rationale forprogressing mobility and home exercise program. Patient was left with all needs met and equipment intact. Mobility and ADL status posted at bedsideand within medical record. Multi-Disciplinary Problems (from Physical Therapy) Active Problems Problem: PT [facility] Start Date: 04/20/24 Goal Start Date Expected End Date End Date PT [facility] 1 04/20/24 05/04/24 -- Goal Details: Pt will transfer supine<>sit with min assist x 1 -progressing Goal Start Date Expected End Date End Date PT [facility] 2 04/20/24 05/04/24 -- Goal Details: Pt will transfer bed<>chair with assistive device as needed with min assist x 1 -progressing Goal Start Date Expected End Date End Date PT [facility] 3 04/20/24 05/04/24 -- Goal Details: Pt will sit at edge of bed with supervision for balance, x 5 minutes -progressing Goal Start Date Expected End Date End Date PT [facility] 4 04/20/24 05/04/24 -- Goal Details: Pt will ambulate 25 feet with assistive device as needed with min assist x 1 -NT Goal Start Date Expected End Date End Date PT [facility] [facility] 04/20/24 05/04/24 -- Goal Details: Pt [...] everywhere Will request UA.Urine cx result from [facility] Husbands states fernandez placed in the last week or so Pt deny dysuria, discomfort w urination Major cva in January and in mar, was sjust transferred to rehab after stroke teated at [facility] vision in [facility]. LUE LLE paresis Pt appear at baseline now this early afternoon according to Gbp was just restarted but taking as needed at rehab . 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 Recommend anticoagulation when ok [...] same day for detailed evaluation of bilateral, hgkdb-nwerlnf-mxnu-left, acute infarcts superimposed on constellation of chronic findings. 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 Patent left PARTS TECHNICIAN, noting variable, to include severe, stenosis along [...] earlier same day for detailed evaluation ofbilateral, jfqgj-djaxexc-itvx-left, acute infarcts superimposed on constellation of chronic findings. Occlusion of the P2 segment of the right PARTS TECHNICIAN; patent left PARTS TECHNICIAN with variable, to include severe, st enosis [...] signed by Steven VALENZUELA T: Report ID: [id number] Reading Location: [id number] MRI Brain WO Contrast Result Date: 04/20/2024 [...] fluid collection. Normal size ventricles. BRAIN VOLUME: Lokl-hu-izsvibbu cerebral volume loss. PITUITARY: Unremarkable. VASCULATURE: Skull [...] Angel Kyle M.D. AG T: Report ID: [id number] Reading Location: [id number] Neuro CT Outside Reference Result Date: 04/20/2024 [...] Johan Wilson M.D. MM T: Report ID: [id number] Reading Location: [id number] Current Facility-Administered Medications Medication Dose Route Frequency Provider Last Rate Last Admin acetaminophen (TYLENOL) tablet 650 mg 650 mg oral Q6H PRN Jammie Dickson NP 650 mg at 04/22/24 1421 [...] mg 20 mg oral Daily Jammie Dickson, PLANT TECHNICAL SPECIALIST 20 mg at 04/22/24 1421 sodium chloride 0.9% flush 0.5-20 mL 0.5-20 mL intra-catheter Q8H ROBERTO Jammie Dickson, PLANT TECHNICAL SPECIALIST 10mL at 04/23/24 0532 sodium chloride 0.9% [...] VS; monitor BP closely Voice recognition software Gem Direct was used dictate and transcribe this document. Pipe Line Gauger variances may occur. Despite proofreading, typographical errors may occur. For patients or family members viewing this note through [facility]: This note was written as a communication [...] Land NP - 04/23/2024 7:38 AM CDT [facility] Medical Group Cardiology Progress Note Patient Id: Lynn Zelaya is a 63 y.o. female. 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 female with PMHx 5 CVAs since 06/2023, HTN, HLD who presents to ED with chief complaint of altered mental status 1-2 days. Pt has had 5 CVAs since 06/2023 with residual left sided hemiparesis. 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 Patient [place] been following with [place] [facility] with plans for implantable loop recorder. SUBJECTIVE [...] of the P2 segment of the right PARTS TECHNICIAN; patent left PARTS TECHNICIAN with variable, to include severe, stenosis along [...] 100 mL IVPB 1,000 mg intravenous Q6H [facility] aspirin enteric coated tablet 81 mg 81 [...] flush 0.5-20 mL 0.5-20 mL intra-catheter Q8H [facility] Continuous Medications: Current Facility-Administered Medications Medication Dose [...] #multiple CVAs -Carotid and Systemic stenosis concerning. -[place]: Occlusion of the P2 segment of the right PARTS TECHNICIAN. Patent left PARTS TECHNICIAN, noting variable, to include severe, stenosis along [...] following. -MRI showing acute ischemia in R PARTS TECHNICIAN territory to include basal ganglia, occipital and [...] made. On behalf of [facility] at [facility], we appreciate the opportunity to participate inthe care of your patient. Please feel free to contact us for any questions regarding your patient'scare. Radha Land NP [facility] Medical Group Cardiology Office: [phone] 04/23/2024 7:38 AM This examination was transcribed using the QBInternational voice recognition system. Despite proofreading, this report [...] practioner. I have personally seen and had bmxc-rh-muia time with the patient and all substantive findings of the patients history and examination documented by nurse practioner have been personally reviewed and/or examined. I have personally reviewed all relevant imaging, labs and pathology relevant to this encounter. Collaboration and editing where applicable. I recommended a carotid Doppler study to be done. * Kimber Baker, MOLD WASHER - 04/22/2024 3:02 PM CDT 1502 Physical [...] Time 1516 Time Calculation (min) 14 min Quarter Backer Services Utilized: NO Patient is identified by [...] End Date End Date PT LT - [facility] 04/20/24 05/04/24 -- Goal Details: Pt will transfer supine<>sit with min assist x 1 Goal Start Date Expected End Date End Date PT LTG - [facility] 04/20/24 05/04/24 -- Goal Details: Pt [...] from the original note were not included. [facility] Neurology Progress Note Subjective: Lynn is an unfortunate 60yoF who was admitted on Apr 20, 2024 with her fifth stroke since Jun 2023. The first 4 strokes were worked up and treated at [facility] and the records are unavailable. This time she was at [facility] w CTH reported as worsening stroke and she was transferred to [facility] for neurology as there was not one available at [facility]. Since there was no access to the [...] mL, intravenous, Q15 Min PRN, Jammie Dickson, PLANT TECHNICAL SPECIALIST divalproex (DEPAKOTE SPRINKLE) sprinkle capsule 500 mg, 500 mg, oral, BID, Sailaja Bloom PA, 500 mg at 04/21/242000 ergocalciferol (VITAMIN D) capsule 50,000 Units, 50,000 Units, oral, Weekly, Sosa Andino MD FLUoxetine (PROzac) capsule 20 mg, 20 mg, oral, Daily, Sosa Andino MD, 20 mg at 04/21/24 1350 glucagon injection 1 mg, 1 mg, intramuscular, Q30 Min PRN, Jammie Dickson, PLANT TECHNICAL SPECIALIST hydrOXYzine (ATARAX) tablet 25 mg, 25 mg, [...] extensor Del Bi Tri WE FDI APB Machine Marker IP KE KF TA EHL Rt Lt [...] patient has acute ischemia in the R PARTS TECHNICIAN territory to include the basal ganglia, occipital and temporal lobes w subacute infarcts R parietal, L frontal, parietal and splenium on my independent review of MRI brain. Workup as above. With new finding on SHIVAM patient will likely need anticoagulation and terminal operations manager follow up with Cardiology. Will consult cardio [...] everywhere Will request UA.Urine cx result from [facility] Husbands states fernandez placed in the last week or so Pt deny dysuria, discomfort w urination Major cva in January and in mar, was sjust transferred to rehab after stroke teated at [facility] in [place]. LUE LLE paresis Pt appear at baseline now this early afternoon according to Gbp was just restarted but taking as needed at rehab . Interval History: Vss CTA w significant posterior cirv disease Neuro recommended SHIVAM and extended cardiac monitoring In room w , supposed to have loop recorder placed this wk [place] Has L ankle mvmt > L knee, hip mvmt, L hand ship captain soft, able to roll elbow and was [...] same day for detailed evaluation of bilateral, oxjio-wqscsjf-hmsh-left, acute infarcts superimposed on constellation of chronic findings. 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 Patent left PARTS TECHNICIAN, noting variable, to include severe, stenosis along [...] earlier same day for detailed evaluation ofbilateral, atgfa-kpnsihi-loos-left, acute infarcts superimposed on constellation of chronic findings. Occlusion of the P2 segment of the right PARTS TECHNICIAN; patent left PARTS TECHNICIAN with variable, to include severe, st enosis [...] signed by Steven VALENZUELA T: Report ID: [id number] Reading Location: [id number] MRI Brain WO Contrast Result Date: 04/20/2024 [...] fluid collection. Normal size ventricles. BRAIN VOLUME: Mgex-ap-xiaccszq cerebral volume loss. PITUITARY: Unremarkable. VASCULATURE: Skull [...] Angel Kyle M.D. AG T: Report ID: [id number] Reading Location: [id number] Neuro CT Outside Reference Result Date: 04/20/2024 [...] Johan Wilson M.D. MM T: Report ID: [id number] Reading Location: [id number] Current Facility-Administered Medications Medication Dose Route Frequency Provider Last Rate Last Admin acetaminophen (TYLENOL) tablet 650 mg 650 mg oral Q6H PRN Jammie Dickson, PLANT TECHNICAL SPECIALIST 650 mg at 04/21/24 1758 Or acetaminophen (TYLENOL) 32 mg/mL oral liquid 650 mg 650 mg feeding tube Q6H PRN KristenL. Dickson NP Or acetaminophen (TYLENOL) suppository 650 mg 650 mg rectal Q6H PRN Jammie Dickson, PLANT TECHNICAL SPECIALIST aspirin enteric coated tablet 81 mg 81 mg oral Daily Jammie Dickson, PLANT TECHNICAL SPECIALIST 81 mg at 04/21/24 0843 cefTRIAXone (ROCEPHIN) 1,000 mg/10 mL in sterile water (premix) 1,000 mg 1,000 mg intravenous Q24H [facility] Jammie Dickson, PLANT TECHNICAL SPECIALIST 1,000 mg at 04/21/24 0937 clopidogreL (PLAVIX) [...] was used dictate and transcribe this document. Pipe Line Gauger variances may occur. Despite proofreading, typographical errors may occur. For patients or family members viewing this note through [employer]: This note was written as a communication [...] Maldonado SLP - 04/21/2024 3:11 PM CDT [facility] Inpatient Speech-Language Pathology Missed Visit Note Patient Name: Lynn Zelaya Admit Date: 04/20/2024 Date of : 1960 Room: [place] [id number] Age/Sex: 63 y.o. female Date of Service: 04/21/2024 Time: Session Type: Session Type: Treatment Missed Visit Reason: HYDROGRAPHIC SURVEYOR Missed Visit Reason: Procedure/testing/appointment (@ EEG 1103a) Next Planned Attempt 04/22/24 HYDROGRAPHIC SURVEYOR will attempt treatment at another time/date as patient is appropriate and available. Autumn Maldonado M.A., [facility]-HYDROGRAPHIC SURVEYOR ASCOM# [id number] * Sailaja Bloom PA - 04/21/2024 1:31 PM CDT Images from the original note were not included. [facility] Neurology Progress Note Subjective: Lynn is a [...] has been trying to get her to [facility] for more complete workup as to why [...] ROBERTO, Jammie Dickson, [place], 1,000 mg at 04/21/24 0937 clopidogreL (PLAVIX) tablet 75 mg, 75 mg, oral, Daily, Sosa Andino MD, 75 mg at 04/21/24 0843 dextrose (GLUTOSE) 40 % gel 15 g, 15 g, oral, Q15 Min PRN OR dextrose (D10W) 10% bolus 250 mL, 250 mL, intravenous, Q15 Min PRN, Jammie Dickson, PLANT TECHNICAL SPECIALIST ergocalciferol (VITAMIN D) capsule 50,000 Units, 50,000 [...] patient has acute ischemia in the R PARTS TECHNICIAN territory to include the basal ganglia, occipital and temporal lobes w subacute infarcts R parietal, L frontal, parietal and splenium on my independent review of MRI brain. Cont ASA and Plavix indefinately, she does not have an indication for anticoagulation. TTE bypassed for SHIVAM since she has numerous stroke w negative TTE at OSH, CTA R ICA gfiikhmgkpt44-25%, LICA no significant stenosis, L vert occluded, [...] recorder, she can return to her outpatient price economist to reschedule her planned Loop placement with [...] directions;Difficulty dividingattention Memory Decreased short term memory;Decreased terminal operations manager memory;Decreased recall of recent events;Decreased recall of [...] with current plan Recommendation/Plan OT Recommendation (S) Detention Facility Patient at high risk for Falls;Readmission;Injury [...] posted at bedside and within medical record. Quarter Backer Services Utilized: NO Patient is identified by [...] Time 0932 Time Calculation (min) 20 min Quarter Backer Services Utilized: NO Patient is identified by [...] (from Physical Therapy) Active Problems Problem: PT [facility] Start Date: 04/20/24 Goal Start Date Expected End Date End Date PT LTG - [facility] 1 04/20/24 05/04/24 -- Goal Details: Pt will transfer supine<>sit with min assist x 1 Goal Start Date Expected End Date End Date PT LTG - [facility] 2 04/20/24 05/04/24 -- Goal Details: Pt will transfer bed<>chair with assistive device as needed with min assist x 1 -progressing Goal Start Date Expected End Date End Date PT LTG - [facility] 3 04/20/24 05/04/24 -- Goal Details: Pt will sit at edge of bed with supervision for balance, x 5 minutes -progressing Goal Start Date Expected End Date End Date PT [facility] - [facility] 4 04/20/24 05/04/24 -- Goal Details: Pt will ambulate 25 feet with assistive device as needed with min assist x 1 -not met Goal Start Date Expected End Date End Date PT LTG - [facility] 5 04/20/24 05/04/24 -- Goal Details: Pt [...] everywhere Will request UA.Urine cx result from [facility] Husbands states fernandez placed in the [...] have loop recorder placed this wk [place] Has L ankle mvmt > L knee, hip mvmt, L hand ship captain soft, able to roll elbow and was [...] same day for detailed evaluation of bilateral, fesdo-ozuaewh-eijp-left, acute infarcts superimposed on constellation of chronic findings. 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 Patent left PARTS TECHNICIAN, noting variable, to include severe, stenosis along [...] earlier same day for detailed evaluation ofbilateral, jxyoz-msabaaf-qyxo-left, acute infarcts superimposed on constellation of chronic findings. Occlusion of the P2 segment of the right PARTS TECHNICIAN; patent left PARTS TECHNICIAN with variable, to include severe, st enosis [...] Electronically signed by Steven VALENZUELA T: Report ID:[id number] Reading Location: [id number] MRI Brain WO Contrast Result Date: 04/20/2024 [...] fluid collection. Normal size ventricles. BRAIN VOLUME: Lpuy-kj-zacdtzid cerebral volume loss. PITUITARY: Unremarkable. VASCULATURE: Skull [...] Angel Kyle M.D. AG T: Report ID: [id number] Reading Location: [id number] Neuro CT Outside Reference Result Date: 04/20/2024 [...] Johan Wilson M.D. MM T: Report ID: [id number] Reading Location: [place] [id number] Current Facility-Administered Medications Medication Dose Route Frequency [...] mg 20 mg oral Daily Jammie Dickson PLANT TECHNICAL SPECIALIST 20 mg at 04/20/24 1329 sodium chloride 0.9% flush 0.5-20 mL 0.5-20 mL intra-catheter Q8H ROBERTO Jammie Dickson, PLANT TECHNICAL SPECIALIST 10mL at 04/21/24 0500 sodium chloride 0.9% [...] (urinary tract infection) CVA (cerebral vascular accident) ([facility]) Resolved Problems: No resolved hospital problems. Altered [...] VS; monitor BP closely Voice recognition software Gem Direct was used dictate and transcribe this document. Pipe Line Gauger variances may occur. Despite proofreading, typographical errors may occur. For patients or family members viewing this note through [facility]: This note was written as a communication [...] Andino MD 04/21/2024 7:29 AM * Kevin oMta - 04/20/2024 2:00 PM CDT Pt appreciated the visit but she did not indicate a desire for spiritual support. 04/20/24 1300 Time Spent Start Time 1359 Patient Spiritual Assessment Spirituality Assessed Yes Orthodox Affiliation Mandaen Clinical Encounter Type Visited With Patient and family together Response Type Routine visit * Yeni Fine [facility] - 04/20/2024 11:47 AM CDT Pharmacy Medication Reconciliation Note Patient Lynn Zelaya is a 63 y.o. female who presents to [address]-[id number]. The prior to admission home medication list [...] Confirmed medications against med list provided by [facility] Sources of information for this medication reconciliation include: care facility and medication list Eric Campuzano CPhT 04/20/2024 10:48 AM Pharmacist reviewed patient's medication history as completed by pharmacy informaticist and verified accuracy and completeness. Documentation updated accordingly. Yeni Fine PharmD, BCPS 04/20/2024 11:46 AM * Taco Barone, PT - 04/20/2024 10:33 AM CDT Physical Therapy 04/20/24 1033 General Chart Reviewed Yes Session Type Evaluation PT Received On 04/20/24 Safe Environment Arm band checked;Patient found in supine;Session completed bedside;Gait belt utilized for all out of bed mobility Additional Pertinent History Pt admitted from [facility] with altered mental status. Pt with [...] prior living arrangements. Pt transferred here from [facility]. Prior Function Prior Function Comments Pt unable [...] (from Physical Therapy) Active Problems Problem: PT [facility] Start Date: 04/20/24 Goal Start Date Expected End Date End Date PT [facility] 1 04/20/24 05/04/24 -- Goal Details: Pt will transfer supine<>sit with min assist x 1 Goal Start Date Expected End Date End Date PT [facility] 2 04/20/24 05/04/24 -- Goal Details: Pt will transfer bed<>chair with assistive device as needed with min assist x 1 Goal Start Date Expected End Date End Date PT [facility] 3 04/20/24 05/04/24 -- Goal Details: Pt will sit at edge of bed with supervision for balance, x 5 minutes Goal Start Date Expected End Date End Date PT [facility] 4 04/20/24 05/04/24 -- Goal Details: Pt will ambulate 25 feet with assistive device as needed with min assist x 1 Goal Start Date Expected End Date End Date PT [facility] 5 04/20/24 05/04/24 -- Goal Details: Pt will perform BLE seated therex x 10 reps each with supervision Quarter Backer Services Utilized: NO Educated the patient to [...] presented to [facility] ED from rehab center ([facility]) with decline in mental status and lethargy x 1-2 days *CT brain shows worsening of recent stroke. Subacute infarct involving R internal capsule, and R temporal occipital region, worsened from 04/07/2024 Occupational Therapy-Patient Goal pt unable to state a goal Current Functional Status OT Functional Mobility pt found supine in bed upon entering room. transport came in [facility] w/c to take pt to imaging. [...] Home Living Additional Comments Pt is from [facility]. is unable to give PLOF at this [...] this the discharge summary Recommendation/Plan OT Recommendation Detention Facility Patient at high risk for Falls;Readmission;Injury [...] Time 1041 Time Calculation (min) 9 min Quarter Backer Services Utilized: NO Patient is identified by [...] End Date End Date OT STG - [facility] 04/20/24 05/04/24 -- Goal Details: Pt will [...] from the original note were not included. [facility] Neurology Consultation Date of admission: 04/20/2024 Requesting [...] strokes which were most likely done at [facility] as we have no access and this [...] (premix) 1,000 mg 1,000 mg intravenous Q24H [facility] Jammie Dickson NP dextrose (GLUTOSE) 40 % [...] flush 0.5-20 mL 0.5-20 mL intra-catheter Q8H [facility] Jammie Dickson, PLANT TECHNICAL SPECIALIST 10mL at 04/20/24 0510 sodium chloride 0.9% [...] 04/20/2024 , Coags: No results found for: WA , PT , PTT , APTT , [...] patient has acute ischemia in the R PARTS TECHNICIAN territory to include the Basal Ganglia, Occipital [...] MD at 04/20/2024 2:40 PM CDT * Jammie Dickson NP - 04/20/2024 3:30 AM CDT History and Physical Hospitalists services Date of service: 04/20/2024 Primary care provider: William Craig MD; [phone] CC: Mental status change HPI: This is a 63 yo female with medical hx of recent CVA w/left sided residual hemiparesis (left arm/leg), HTN, and HLD that presented to [facility] ED from rehab center with decline in [...] Per ED record, [facility] over last 2 [...] from OSH. OSH does not have neuro applications programmer today. Dr. Rodgers Neuro is agreeable to consult. Will push images to [facility]. Pt accepted for transfer per hospitalist group [...] Estimated Average Glucose 131 mg/dL Thyroid Function [place] Collection Time: 04/20/24 4:24 AM Result Value [...] 650 mg oral Q6H PRN KustermannTomasen L., PLANT TECHNICAL SPECIALIST Or acetaminophen (TYLENOL) 32 mg/mL oral liquid 650 mg 650 mg feeding tube Q6H PRN Jammie DicksonL., PLANT TECHNICAL SPECIALIST Or acetaminophen (TYLENOL) suppository 650 mg 650 mg rectal Q6H PRN TresaermannTomasen L., PLANT TECHNICAL SPECIALIST sodium chloride 0.9% flush 0.5-20 mL 0.5-20 mL intra-catheter Q8H ROBERTO Jammie Dickson L., PLANT TECHNICAL SPECIALIST 10mL at 04/20/24 0510 sodium chloride 0.9% flush 0.5-20 mL 0.5-20 mL intra-catheter PRN TresaermannJammie L., PLANT TECHNICAL SPECIALIST sodium chloride 0.9% infusion 75 mL/hr intravenous Continuous Jammie Dickson L., PLANT TECHNICAL SPECIALIST 75 mL/hr at 04/20/24 0404 75 mL/hr at 04/20/24 0404 Principal Problem: Altered mental status, unspecified altered mental status type Active Problems: HTN (hypertension) Hyperlipidemia Type 2 diabetes mellitus (HCC) UTI (urinary tract infection) CVA (cerebral vascular accident) ([facility]) Resolved Problems: No resolved hospital problems. A/P [...] -Cont IVFs -Strict intake and output -Routine frenandez cath care Type 2DM: -HgbA1c ordered -Blood [...] services. MDM complexity: moderate Voice recognition software Gem Direct was used dictate and transcribe this document. Pipe Line Gauger variances may occur. Despite proofreading, typographical errors [...] not included. [facility] [place] CONSULT NOTE Patient Name/MRN: Lynn Zelaya [id number] Treatment Team: Vascular Surgery Attending: Sosa Andino MD Today's Date: 04/26/2024 Admitting Service: Medical Admitting location: [place] [id number] Admit Date: 04/20/2024 Code Status: Full Code [...] is usually quite accurate but there are counselor marriage and family errors that can and often occur. All [...] 04/23/2024 , Coags: No results found for: WA , PT , PTT , APTT , [...] Channing Lopez M.D. RB T: Report ID: [id number] Reading Location: [id number] Transesophageal Echo (SHIVAM) W Doppler/CF Version 2 Transesophageal Echocardiogram + + :Name: LYNN ZELAYA JStudy Date: 04/22/2024 Status: [facility] : : Patient Location: [address]^[id number]^Height: 64 in : : Weight: 127 lbBP: 135/84 mmHg: :: 1960 Gender: Female BSA: 1.6 m2 : :Reason For Study: Stroke, follow up : :Ordering Physician: AJN, : :SOSA : :Referring Physician: : :UNKNOWN, [...] or regurgitation. There is mild TR, trace WA, slight restriction of mitral valve anterior leaflet [...] Navjot Hatfield PA-C Cardiothoracic Surgery [facility] Pt seen 04/23/24. SHIVAM and CTA chest reviewed. Agree with PA's assessment and recommendations. MD MINA * Patricia Jackson, [place] - 04/22/2024 2:12 PM CDTAssociated Order(s): IP CONSULT TO CARDIOLOGY [facility] Medical Group Cardiology Consult Note Patient Id: Lynn Zelaya is a 63 y.o. female. MR#: [id number] Reason for consultation: mobile atheroma on SHIVAM [...] on anticoagulation. Patient has been following with [employer] with plans for implantable loop recorder. SUBJECTIVE [...] 125/76 (BP Location: Right arm, Patient Position: [facility] 30 degrees) Pulse 88 Temp 36.9 ??C [...] following -MRI showing acute ischemia in R PARTS TECHNICIAN territory to include basal ganglia, occipital and [...] discussed with hospital physician On behalf of [facility] Cardiology at [facility], we appreciate the opportunity to participate inthe care of your patient. Please feel free to contact us for any questions regarding your patient'scare. Patricia Jackson NP [facility] Medical Group Cardiology Office: [phone] 04/22/2024 3:13 PM This examination was transcribed using the QBInternational voice recognition system. Despite proofreading, this report [...] for possible surgical intervention * Autumn Maldonado, HYDROGRAPHIC SURVEYOR - 04/20/2024 1:00 PM CDT Images from the original note were not included. [facility] Inpatient Speech-Language Pathology Clinical Bedside Swallow Evaluation And Speech-Language Evaluation PRIOR MEDICAL HISTORY/SUBJECTIVE Patient Name: Lynn Zelaya Admit Date: 04/20/2024 Date of : 1960 Room: [place] [address] Age/Sex: 63 y.o. female Date of Service: [...] precautions Pain Assessment: No pain reported to HYDROGRAPHIC SURVEYOR. Patient Comment/Goal: Eat/drink be able to take [...] solutions, and Assistance required to implement solutions [facility] Mental Status Examination UNABLE TO COMPLETE [...] verbal explanation and demonstration. Caregivers verbalized understanding. Quarter Backer Services Utilized: NO Plan: Goals established: 04/20/24 HYDROGRAPHIC SURVEYOR Care Plan Problems/Goals Swallowing STG - Patient [...] body parts Recommended Follow-Up: Ongoing speech therapy HYDROGRAPHIC SURVEYOR Frequency: 1-2x/wk Next Planned Visit: 04/21/24 Discharge Recommendations: Defer at this time to PT/OT recommendations Barriers to Discharge: defer to medical team Discharge Summary Statement If this is the last speech therapy visit, this serves as the discharge summary. Autumn Maldonado M.A., CCC-HYDROGRAPHIC SURVEYOR Speech Language Pathologist HYDROGRAPHIC SURVEYOR Start Time: 1300 HYDROGRAPHIC SURVEYOR Stop Time: 1335 HYDROGRAPHIC SURVEYOR Time Calculation (min): 35 min * Sailaja Bloom PA - 04/20/2024 9:09 AM CDTAssociated Order(s): IP CONSULT TO NEUROLOGY Images from the original note were not included. [facility] Neurology Consultation Date of admission: 04/20/2024 Requesting [...] strokes which were most likely done at [facility] as we have no access and this [...] 0.5-20 mL intra-catheter Q8H ROBERTO Jammie Dickson, PLANT TECHNICAL SPECIALIST 10mL at 04/20/24 0510 sodium chloride 0.9% flush 0.5-20 mL 0.5-20 mL intra-catheter PRN Jammie Dickson NP sodium chloride 0.9% infusion 75 mL/hr intravenous Continuous Jammie Dickson PLANT TECHNICAL SPECIALIST 75 mL/hr at 04/20/24 0404 75 mL/hr [...] 04/20/2024 , Coags: No results found for: WA , PT , PTT , APTT , [...] patient has acute ischemia in the R PARTS TECHNICIAN territory to include the Basal Ganglia, Occipital [...] of recent stroke . Was transferred to [facility] and got an MRI brain, which shows large acute area of infarct involving essentially the entire right PARTS TECHNICIAN territory. Some of the right PARTS TECHNICIAN territory had already strokes, but the majority [...] 4:15 AM CDT 0335 Pt received From [facility] via stretcher, A&O to self, with NS infusing well on IV G 20 on the left AC, with fernandez Fr 16 connected to the urine bag with greenish urine output in color. Transferred to bed, oriented to room, call austin within reach, allergy & fall risk band attachedon the right wrist. Put on tele monitor. Bed alarm on. 0340 S/E by PLANT TECHNICAL SPECIALIST Jammie. Hooked to NS regulated @ 75 [...] RAIZA: today PATIENT HAS BEEN ACCEPTED AT [facility]: [facility] [address] [place] [address] Spoke with Andrea at facility and patient has been accepted. Bedside RN to call report and fax orders to numbers listed above. Oneil aware of plans PASRR: No level II required Authorization: obtained by [facility] Nina * Plan of Care - Pete Tesfaye. - 05/03/2024 10:32 AM CDT Problem: Activity Goal: Capacity to carry out activities will improve 05/03/2024 1032 by Pete Tesfaye. Outcome: Progressing 05/03/2024 1020 by Pete Tesfaye. Outcome: Progressing Goal: Mobility will improve 05/03/2024 1032 by ePte Tesfaye. Outcome: Progressing 05/03/2024 1020 by Pete [...] free from falls 05/03/2024 1032 by Pete Tesfaey. Outcome: Progressing 05/03/2024 1020 by Pete Tesfaye. Outcome: Progressing Problem: Fall Risk Goal: Patient's ability to state ways to decrease the risk of falls will improve 05/03/2024 1032 by Pete Tesfaye. Outcome: Progressing 05/03/2024 1020 by Pete Tesfaye. Outcome: Progressing Problem: Fall Risk Goal: Patient will remain free from injury from falls 05/03/2024 1032 by Peet Tesfaye. Outcome: Progressing 05/03/2024 1020 by Pete [...] strokes, blood sugar checking rest & comfort. Care Home Patient Centered Goal for Treatment: Rehad placement [...] RAIZA: 1-2 days, after [employer] auth for [facility] 05/02/24 1538 Discharge Summary Discharge Disposition residential facility (short term care) Discharge Records Transfer Form Completed Recommended Discharge Level of Care residential facility (short term care) Actual Discharge Level of Care residential facility (short term care) Does Actual Level of Care Match Care Team Recommendation? Yes Post Acute Care Plan Post Acute Care Facility Yes Referral Status Started ([facility] starting Aet[employer] auth) Discharge Additional [...] with current plan -KK OT Recommendation -- Detention Facility -KK Detention Facility -KK Detention Facility -KK Patient at high risk for [...] interruption -- Co Tx with Melissa Dobbins, MOLD WASHER -KK Co Tx with Melissa Dobbins, MOLD WASHER -KK Co Tx withMelissa Dobbins, MOLD WASHER -KK User Fish (r) = Recorded By, [...] feet. 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 , HYDROGRAPHIC SURVEYOR Eval and Treat Last 72 Hours HYDROGRAPHIC SURVEYOR Evaluation No documentation. HYDROGRAPHIC SURVEYOR Treatment No documentation. Clinical Swallow Study No documentation. HYDROGRAPHIC SURVEYOR Notes Notes from 04/30/24 through 05/02/24 No notes of this type exist for this encounter. * Plan of Care - Emerita Uribna RN - 05/02/2024 6:00 AM CDT Goals: Clinical Goals for the Shift: stable VS, safety & comfort Care Home Patient Centered Goal for Treatment: Rehad placement [...] the Shift: stable VS, safety & comfort Field Sampling Technician Patient Centered Goal for Treatment: Rehad placement Summary: Pt alert to self & place. Denies pain when @ rest, & c/o BLE pain when turned sideto side. VS on soft side. Appetite was good. Will continue to monitor. * Plan of Care - Emerita Urbina RN - 05/01/2024 6:27 AM CDT Goals: Clinical Goals for the Shift: Ready for placment, safety and comfort Care Home Patient Centered Goal for Treatment: Rehad placement Summary: Pt was calm and quiet after midnight. Stable vital signs. No acute events. Pt is awaiting placement. * Plan of Care - Andria Wright RN - 04/30/2024 4:34 PM CDT Goals: Clinical Goals for the Shift: Ready for placment, safety and comfort Care Home Patient Centered Goal for Treatment: Rehad placement Summary: monitored lab, blood sugar, vs, and tele. Patient very sleepy today. Slept through breakfast. Patient remains calm and cooperative. Awaiting snf placement on Thursday. * Plan of Care - Andria Wright RN - 04/30/2024 12:30 PM CDT Goals: Clinical Goals for the Shift: Ready for placment, safety and comfort Field Sampling Technician Patient Centered Goal for Treatment: Rehad placement Summary: * Plan of Care - Andrea De Leon RN - 04/30/2024 12:06 AM CDT Goals: Clinical Goals for the Shift: Ready for placment, safety and comfort Field Sampling Technician Patient Centered Goal for Treatment: Rehad placement [...] Shift: Ready for placment, safety and comfort Field Sampling Technician Patient Centered Goal for Treatment: Rehad placement [...] out to the care management team. 04/29/24 1735 Discharge Planning Support System Spouse/Significant Other Anticipated discharge level of care residential facility (short term care) (acute rehab unable to accept, SNF referrals sent, awaiting responses) [facility] reviewing and will start Aetna auth [...] the Shift: monitor safety and provide comfort Care Home Patient Centered Goal for Treatment: Needing Rehab [...] Goals for the Shift: increase in strength Care Home Patient Centered Goal for Treatment: increase in [...] out to the care management team. 04/28/24 1391 Discharge Planning Support System Spouse/Significant Other Anticipated discharge level of care residential facility (short term care) (acute rehab unable [...] -- -- Procedure/testing/appointment Attempted x2 this am (854, 2500), on both attempts pt off floor for [...] Continue with current plan -KK OT Recommendation Detention Facility -KK Detention Facility -KK Detention Facility -KK Detention Facility - -- Patient at high risk [...] for interruption Co Tx with Melissa Dobbins, MOLD WASHER -KK Co Tx with Melissa Dobbins, MOLD WASHER -KK Co Tx with Melissa Dobbins, MOLD WASHER -KK -- -- User Fish (r) = [...] with current plan - Recommendation/Plan PT Recommendation/Plan Detention Facility -AG [facility] [place] [facility]hab [...] Initials Name Effective Dates RM Lalita Delgado, MOLD WASHER 11/21/21 - Viola Blackwell, MOLD WASHER 10/16/21 - Melissa Ricardo, MOLD WASHER 11/27/20 - Misty Pelaez, MOLD WASHER 11/23/20 - LK Kimber Baker, MOLD WASHER 11/21/20 - PT Notes Notes from 04/26/24 through 04/28/24 No notes of this type exist for this encounter. , HYDROGRAPHIC SURVEYOR Eval and Treat Last 72 Hours HYDROGRAPHIC SURVEYOR Evaluation No documentation. HYDROGRAPHIC SURVEYOR Treatment No documentation. Clinical Swallow Study No documentation. HYDROGRAPHIC SURVEYOR Notes Notes from 04/26/24 through 04/28/24 No notes of this type exist for this encounter. 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 terminal operations manager memory;Decreased recall of recent events;Decreased recall of [...] Continue with current plan -KK OT Recommendation Detention Facility -KK Detention Facility -KK Detention Facility - -- Detention Facility -KK Patient at high risk for [...] for interruption Co Tx with Melissa Dobbins, MOLD WASHER -KK Co Tx with Melissa Dobbins, MOLD WASHER -KK -- -- Co Tx with SANDI [...] with current plan -RM Recommendation/Plan PT Recommendation/Plan Detention Facility SHE muniz'joe the change to snf [...] to complete functional mobility;[facility] with support system in place;Requires [...] Initials Name Effective Dates RM Danny Lalita, MOLD WASHER 11/21/21 - Viola Blackwell, MOLD WASHER 10/16/21 - Melissa Figueroa, MOLD WASHER 11/27/20 - Misty Pelaez, MOLD WASHER 11/23/20 - Kimber Wilson, MOLD WASHER 11/21/20 - PT Notes Notes from 04/25/24 through 04/27/24 No notes of this type exist for this encounter. , HYDROGRAPHIC SURVEYOR Eval and Treat Last 72 Hours HYDROGRAPHIC SURVEYOR Evaluation No documentation. HYDROGRAPHIC SURVEYOR Treatment No documentation. Clinical Swallow Study No documentation. HYDROGRAPHIC SURVEYOR Notes Notes from 04/25/24 through 04/27/24 No notes of this type exist for this encounter. * Plan of Care - Patsy Benson RN - 04/27/2024 10:32 AM CDT Goals: Clinical Goals for the Shift: increase in strength Field Sampling Technician Patient Centered Goal for Treatment: increase in [...] the Shift: increase in left sided strength Care Home Patient Centered Goal for Treatment: return to [...] the Shift: increase in left sided strength Care Home Patient Centered Goal for Treatment: return to [...] ABX blood sugar checking rest & comfort. Care Home Patient Centered Goal for Treatment: return to [...] Need cultures repeated per MD. Referrals to [facility]. Current RAIZA: 04/29 At this time care management team is working with patient/family for safe discharge planning, please details below. For questions or if additional dc planning needs arise, please reach out to the care management team. * Plan of Care - Patsy Bneson RN - 04/25/2024 8:33 AM CDT Goals: Clinical Goals for the Shift: increase strength to left side, increase acitivity level Field Sampling Technician Patient Centered Goal for Treatment: return to [...] and safety, Monitor VS and urine output Care Home Patient Centered Goal for Treatment: return to [...] and safety, Monitor VS and urine output Field Sampling Technician Patient Centered Goal for Treatment: return to [...] and safety, Monitor VS and urine output Field Sampling Technician Patient Centered Goal for Treatment: return to [...] comfort, no pain, turn every 2 hours Care Home Patient Centered Goal for Treatment: no pain, [...] for the Shift: Provide safety and comfort Care Home Patient Centered Goal for Treatment: Return to [...] for signs of stroke, continue IV antibitoics Field Sampling Technician Patient Centered Goal for Treatment: back to [...] note were not included. 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 THIEN with normal Doppler emptying velocities and no visible thrombus in multiple views. Aortic valve is trileaflet without stenosis or regurgitation. There is mild TR, trace WA, slight restriction ofmitral valve anterior leaflet with [...] strokes, blood sugar checking rest & comfort Field Sampling Technician Patient Centered Goal for Treatment: back to [...] the Shift: pt safety, mobility, stable v/s Care Home Patient Centered Goal for Treatment: back to [...] presented to OSH ED from rehab center ([facility]) with decline in mental status and lethargy x 1-2 days *CT brain shows worsening of recent stroke. Subacute infarct involving R internal capsule, and R temporal occipital region, worsened from 04/07/2024 -KB Occupational Therapy-Patient Goal pt unable to state a goal -KB OT Functional Mobility pt found supine in bed upon entering room. transport came in [facility] w/c to take pt to imaging. [...] IV -KB [facility] [...] this the discharge summary -KB OT Recommendation Detention Facility -KB Patient at high risk for [...] -AZ Additional Pertinent History Pt admitted from [facility] with altered mental status. Pt with [...] prior living arrangements. Pt transferred here from [facility]. -[place] Prior Function Comments Pt unable to [...] Bed Mobility to 1 Edge of bed -[place] Level of Assistance 1 Maximum Assist x 1-2 -AZ Bed Mobility Comments 1 Once sitting at edge of bed, pt requires max assist for balance as pt is pushing to the left and loses balance posteriorly and to the left. -AZ Trials/Comments 1 deferred due to pt with poor sitting balance at edge of bed -[place] Ambulation Comments 1 deferred as pt requires [...] pt down for MRI -AZ Prognosis Fair -[place] Problem List Gait deviations;Decreased strength;Decreased range of motion;Decreased endurance;Impaired balance;Decreased mobility;Impaired judgement;Decreased safety awareness -[place] Barriers to Discharge Current Mobility Status;Decreased caregiver support;Cognition;Decreased safety awareness -[place] Plan Plan of care initiated;If this is the last note, consider this the discharge summary -[place] PT Recommendation/Plan Inpatient Rehab Facility -AZ Patient at high risk for Falls;Readmission;Injury due to decreased ability to care for self -[place] Recommend Inpatient Rehab/Acute Rehab due to Ability [...] education;Range of motion;Strengthening;Therapeutic activity;Therapeutic exercise;Transfer training;Neuromuscular re-education -[place] PT Equipment Recommended -- to be determined at rehab -[place] PT Evaluation Complete Yes -[place] User Fish [...] on SCD. Pt was anxious, relayed to PLANT TECHNICAL SPECIALIST Jammie with new order made & carried [...] - 04/20/2024 10:43 AM CDT Acknowledge Consult POSTAL SUPERVISOR consulted for need for complex higher level of care or assisted planning for care. No social service needs identified at this time. CM following for discharge planning and progression of care and can consult ss if needs arise. Corine Salazar LCSW 10:43 AM 04/20/2024 * Initial Assessments - Carlie Hancock, RN - 04/20/2024 10:15 AM CDT CM Initial Assessment Interview Note Information Obtained From: Spouse Name: Oneil (04/20/24 1014) Admission Source: Transfer from [facility] for evolving CVA and UIT. 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 Spouse [...] to see here Plan Includes: returning to [facility], will need to send referral once we have PT/OT notes Primary Source of Transportation: Does the patient need discharge transport arranged?: Yes Has discharge transport been arranged?: No (04/20/241013) Health Insurance Coverage: Aetna Commerical Prescription Coverage: yes Pharmacy: [facility] [address] [address] [address] [facility] [id number] Primary Care Provider: William Craig MD Prior [...] or living in a skilled nursing (including now)?: No (04/20/241014) Utilities: No, (04/20/241014) Social Connections: In a typical week, how many times do you talk on the phone with family, friends, or neighbors?: More than three times a week How often do you get together with friends or relatives?: Twice a week How often do you attend oriental orthodox or amish services?: 1 to 4 times per year Do you belong to any clubs or organizations such as oriental orthodox groups, unions, fraternal or athletic groups, or [...] Collaboration with Patient, Provider, Direct Care Nurse, Social Work Assistant, and other members of theHealth Care Team to assure needed interventions completed. 2. Return patient to optimal level of self-care post discharge. 3. Forestry Faculty Member will follow for Discharge Planning - interventions [...] everywhere Will request UA.Urine cx result from [facility] Husbands states fernandez placed in the last week or so Pt deny dysuria, discomfort w urination Major cva in January and in mar, was sjust transferred to rehab after stroke teated at [facility] [place]. LUE LLE paresis [...] recent ECHO results available (need requested from [facility]) -continue aspirin and statin -Neurochecks 4hrs -Fall [...] CALDERON CE Final Result Performing Organization Address [facility] Co de Phone Number HUGO[address] [place] [address] * POCT glucose (05/03/2024 7:54 AM CDT) Glucose, POC 121 70 - 199 mg/dL Glucose comment 1 Use This Result NADINE Blood 05/03/2024 7:54 AM CDT 05/03/2024 7:54 AM CDT Hailey Carney MD LAB POCT ORDERABLES - CALDERON CE Final Result Performing Organization Address [facility] Co de Phone Number [address] [place] [address] * POCT glucose (05/02/2024 8:42 PM CDT) Glucose, POC 138 70 - 199 mg/dL Glucose comment 1 Use This Result [facility] Blood 05/02/2024 8:42 PM CDT 05/02/2024 8:42 PM CDT Thang Del Valle DO LAB POCT ORDERABLES - D EVICE Final Result Performing Organization Address City/[facility]/ZIP Co de Phone Number [address] [place] [address] * POCT glucose (05/02/2024 4:45 PM CDT) Glucose, POC 139 70 - 199 mg/dL Glucose comment 1 Use This Result NADINE Blood 05/02/2024 4:45 PM CDT 05/02/2024 4:45 PM CDT Thang Frenchapurayil DO LAB POCT ORDERABLES - D EVICE Final Result Performing Organization Address City/[facility] Co de Phone Number NADINE [address] [place] [address] * POCT glucose (05/02/2024 11:54 AM CDT) Glucose, POC 142 70 - 199 mg/dL Blood 05/02/2024 11:5 4 AM CDT 05/02/2024 11:54 AM CDT Thang Pradol DO LAB POCT ORDERABLES - D EVICE Final Result Performing Organization Address City/[facility] Co de Phone Number [address] [place] [address] * POCT glucose (05/02/2024 8:08 AM CDT) Glucose, POC 124 70 - 199 mg/dL Glucose comment 1 Use This Result NADINE Blood 05/02/2024 8:08 AM CDT 05/02/2024 8:08 AM CDT Thang Scotturayil DO LAB POCT ORDERABLES - D EVICE Final Result Performing Organization Address City/[facility] Co de Phone Number [address] [place] [address] * eGFR (05/01/2024 11:47 PM CDT) Pathologist [facility] eGFR >90 >=60 mL/min/1. 73 m2 [...] LAB BLOOD ORDERABLES Final Resul t NADINE [address] [facility] [place] [address] * Differential, auto (05/01/2024 11:47 PM CDT) Pathologist [facility] Neutrophil abs 2.3 1.5 - 6.5 K/cumm Imm gran abs 0.0 0.0 - 0.1 K/cumm [facility] Lymphocyte abs 1.4 0.8 - 3.3 K/cumm [facility] Monocyte abs 0.7 0.2 - 0.8 K/cumm [facility] Eosinophil abs 0.4 0.0 - 0.5 K/cumm [facility] Basophil abs 0.1 0.0 - 0.1 K/cumm [facility] Neutrophil pct 46.8 % [facility] Comment: Interpretive Data Percent cell count reference ranges are not reported, since discordance with absolute values may lead to misinterpretation of CBC data. Current Interpretive Data was last revised on 2017. Imm gran pct 0.2 % [facility] Comment: Interpretive Data Percent cell count reference ranges are not reported, since discordance with absolute values may lead to misinterpretation of CBC data. Current Interpretive Data was last revised on 2017. Lymphocyte pct 29.1 % [facility] Comment: Interpretive Data Percent cell count reference ranges are not reported, since discordance with absolute values may lead to misinterpretation of CBC data. Current Interpretive Data was last revised on 2017. Monocyte pct 13.6 % [facility] Comment: Interpretive Data Percent cell count reference ranges are not reported, since discordance with absolute values may lead to misinterpretation of CBC data. Current Interpretive Data was last revised on 2017. Eosinophil pct 8.9 % [facility] Comment: Interpretive Data Percent cell count reference ranges are not reported, since discordance with absolute values may lead to misinterpretation of CBC data. Current Interpretive Data was last revised on 2017. Basophil pct 1.4 % [facility] Comment: Interpretive Data Percent cell count reference ranges are not reported, since discordance with absolute values may lead to misinterpretation of CBC data. Current Interpretive Data was last revised on 2017. Blood 05/01/2024 11:4 7 PM CDT 05/01/2024 11:52 PM CDT us Sosa Andino MD LAB BLOOD ORDERABLES Final Resul t [facility] [address] [facility] [place] [address] * Renal function panel (05/01/2024 11:47 PM CDT) Sodium 141 135 - 145 mmol/L Potassium, pl 4.2 3.3 - 4.9 mmol/L [facility] Comment:Hemolyzed; Potassium value may be falsely elevated by as much as 1.0 mmol/L. Suggest redraw and reanalysis. Chloride 104 97 - 110 mmol/L [facility] CO2 27 22 - 32 mmol/L [facility] Anion gap 10 2 - 15 mmol/L [facility] BUN 25 6 - 25 mg/dL [facility] Creatinine 0.74 0.60 - 1.10 mg/dL [facility] Glucose 122 70 - 199 mg/dL [facility] Comment: Interpretive Data Fasting glucose >/= 126 [...] 2022. Calcium 9.7 8.5 - 10.3 mg/dL [facility] Phosphorus, pl 3.9 2.3 - 4.5 mg/dL [facility] Albumin 3.8 3.5 - 5.0 g/dL [facility] Blood 05/01/2024 11:4 7 PM CDT 05/01/2024 11:52 PM CDT Sosa Andino MD LAB BLOOD ORDERABLES Final Resul t [facility] [id number] [facility] [place] [address] * (ABNORMAL) CBC with auto differential (05/01/2024 11:47 PM CDT) Pathologist [facility] WBC 4.9 3.8 - 9.9 K/cumm Hgb 8.3(L) 11.9 - 15.5 g/dL [facility] Hct 26.6(L) 35.6 - 45.5 % [facility] Plt 232 150 - 400 K/cumm [facility] MPV 10.6 9.1 - 12.3 fL [facility] RBC 3.05(L) 3.90 - 5.20 M/cumm [facility] MCV 87.2 81.3 - 96.4 fL [facility] MCH 27.2 27.1 - 33.3 pg [facility] MCHC 31.2(L) 32.3 - 35.7 g/dL [facility] RDW CV 15.1(H) 11.1 - 14.9 % [facility] RDW SD 47.7 35.7 - 48.1 fL [facility] NRBC abs 0.00 0.00 - 0.01 K/cumm [facility] Blood 05/01/2024 11:4 7 PM CDT 05/01/2024 11:52 PM CDT Sosa Andino MD LAB BLOOD ORDERABLES Final Resul t Performing Organization Address [facility] Co de Phone Number [address] [place] [address] * POCT glucose (05/01/2024 7:56 PM CDT) Glucose, POC 147 70 - 199 mg/dL Glucose comment 1 Use This Result [facility] Blood 05/01/2024 7:56 PM CDT 05/01/2024 7:56 PM CDT us Thang Del Valle DO LAB POCT ORDERABLES - D EVICE Final Result Performing Organization Address [facility] Co de Phone Number [address] [place] [address] * POCT glucose (05/01/2024 4:33 PM CDT) Glucose, POC 128 70 - 199 mg/dL Glucose comment 1 Use This Result [facility] Blood 05/01/2024 4:33 PM CDT 05/01/2024 4:33 PM CDT Thang Del Valle DO LAB POCT ORDERABLES - D EVICE Final Result Performing Organization Address City/[facility] Co de Phone Number [facility] [address] [facility] Department [place] [address] * POCT glucose (05/01/2024 11:19 AM CDT) [facility] Glucose, POC 151 70 - 199 mg/dL Glucose comment 1 Use This Result [facility] Blood 05/01/2024 11:1 9 AM CDT 05/01/2024 11:19 AM CDT us Thang Del Valle DO LAB POCT ORDERABLES - D EVICE Final Result Performing Organization Address [facility] Co de Phone Number NADINE [facility] [place] [address] * eGFR (05/01/2024 7:09 AM CDT) [facility] eGFR >90 >=60 mL/min/1. 73 m2 [...] DO LAB BLOOD ORDERABLES Fi nal Result [facility] [address] [facility] Department [place] [address] * Differential, auto (05/01/2024 7:09 AM CDT) Neutrophil abs 2.7 1.5 - 6.5 K/cumm Imm gran abs 0.0 0.0 - 0.1 K/cumm [facility] Lymphocyte abs 1.5 0.8 - 3.3 K/cumm [facility] Monocyte abs 0.8 0.2 - 0.8 K/cumm [facility] Eosinophil abs 0.5 0.0 - 0.5 K/cumm [facility] Basophil abs 0.1 0.0 - 0.1 K/cumm [facility] Neutrophil pct 48.3 % [facility] Comment: Interpretive Data Percent cell count reference ranges are not reported, since discordance with absolute values may lead to misinterpretation of CBC data. Current Interpretive Data was last revised on 2017. Imm gran pct 0.2 % [facility] Comment: Interpretive Data Percent cell count reference ranges are not reported, since discordance with absolute values may lead to misinterpretation of CBC data. Current Interpretive Data was last revised on 2017. Lymphocyte pct 26.2 % [facility] Comment: Interpretive Data Percent cell count reference ranges are not reported, since discordance with absolute values may lead to misinterpretation of CBC data. Current Interpretive Data was last revised on 2017. Monocyte pct 14.2 % [facility] Comment: Interpretive Data Percent cell count reference ranges are not reported, since discordance with absolute values may lead to misinterpretation of CBC data. Current Interpretive Data was last revised on 2017. Eosinophil pct 9.7 % [facility] Comment: Interpretive Data Percent cell count reference [...] Fi nal Result Performing Organization Address City/[facility] Co de Phone Number NADINE [address] [address] * POCT glucose (05/01/2024 7:09 AM CDT) Glucose, POC 122 70 - 199 mg/dL Glucose comment 1 Use This Result [facility] Blood 05/01/2024 7:09 AM CDT 05/01/2024 7:09 AM CDT Thang Del Valle DO LAB POCT ORDERABLES - D EVICE Final Result Performing Organization Address [facility] Co de Phone Number [address] [address] * Magnesium (05/01/2024 7:09 AM CDT) Magnesium 2.1 1.4 - 2.5 mg/dL Blood 05/01/2024 7:09 AM CDT 05/01/2024 7:48 AM CDT Thang Scotturarohinil DO LAB BLOOD ORDERABLES Fi nal Result Performing Organization Address City/[facility] Co de Phone Number NADINE [address] [place] [address] * (ABNORMAL) Comprehensive metabolic panel (05/01/2024 7:09 AM CDT) Pathologist [facility] Sodium 144 135 - 145 mmol/L Potassium, pl 3.8 3.3 - 4.9 mmol/L [facility] Chloride 107 97 - 110 mmol/L [facility] CO2 27 22 - 32 mmol/L [facility] Anion gap 10 2 - 15 mmol/L [facility] BUN 26(H) 6 - 25 mg/dL [facility] Creatinine 0.72 0.60 - 1.10 mg/dL [facility] Glucose 114 70 - 199 mg/dL [facility] Comment: Interpretive Data Fasting glucose >/= 126 [...] 2022. Calcium 9.8 8.5 - 10.3 mg/dL [facility] Bilirubin, total 0.3 0.1 - 1.2 mg/dL [facility] Protein, pl 6.5 6.5 - 8.5 g/dL [facility] Albumin 3.8 3.5 - 5.0 g/dL [facility] Alk phos 69 40 - 130 Units/L [facility] ALT 9 7 - 45 Units/L [facility] AST 29 10 - 45 Units/L [facility] Blood 05/01/2024 7:09 AM CDT 05/01/2024 7:48 AM CDT us Thang Del Valle DO LAB BLOOD ORDERABLES Fi nal Result [facility] [address] [facility] Department [place] [address] * (ABNORMAL) CBC with auto differential (05/01/2024 7:09 AM CDT) [facility] WBC 5.6 3.8 - 9.9 K/cumm Hgb 8.9(L) 11.9 - 15.5 g/dL [facility] Hct 28.5(L) 35.6 - 45.5 % [facility] Plt 236 150 - 400 K/cumm [facility] MPV 10.8 9.1 - 12.3 fL [facility] RBC 3.26(L) 3.90 - 5.20 M/cumm [facility] MCV 87.4 81.3 - 96.4 fL [facility] MCH 27.3 27.1 - 33.3 pg [facility] MCHC 31.2(L) 32.3 - 35.7 g/dL [facility] RDW CV 14.9 11.1 - 14.9 % [facility] RDW SD 47.7 35.7 - 48.1 fL [facility] NRBC abs 0.00 0.00 - 0.01 K/cumm [facility] Blood 05/01/2024 7:09 AM CDT 05/01/2024 7:48 AM CDT Thang Del Valle DO LAB BLOOD ORDERABLES Fi nal Result Performing Organization Address City/[facility]/ZIP Co de Phone Number [address] [place], [place] [id number] * POCT glucose (04/30/2024 8:32 PM CDT) Glucose, POC 117 70 - 199 mg/dL Glucose comment 1 Use This Result [facility] Blood 04/30/2024 8:32 PM CDT 04/30/2024 8:32 PM CDT Thang Del Valle DO LAB POCT ORDERABLES - D EVICE Final Result Performing Organization Address City/[facility]/ZIP Co de Phone Number [address] [place] [address] * POCT glucose (04/30/2024 4:42 PM CDT) Glucose, POC 157 70 - 199 mg/dL Glucose comment 1 Use This Result [facility] Glucose comment 2 RN/MD Notified [facility] Blood 04/30/2024 4:42 PM CDT 04/30/2024 4:42 PM CDT Thang Del Valle DO LAB POCT ORDERABLES - D EVICE Final Result Performing Organization Address [facility] Co de Phone Number [address] [address] * POCT glucose (04/30/2024 11:50 AM CDT) Glucose, POC 123 70 - 199 mg/dL Glucose comment 1 Use This Result [facility] Blood 04/30/2024 11:5 0 AM CDT 04/30/2024 11:50 AM CDT Thang Del Valle DO LAB POCT ORDERABLES - D EVICE Final Result Performing Organization Address [facility] de Phone Number [address] [address] * eGFR (04/30/2024 10:01 AM CDT) [facility] eGFR >90 >=60 mL/min/1. 73 m2 [...] DO LAB BLOOD ORDERABLES Fi nal Result [place] [address] [facility] Department [place] [address] * (ABNORMAL) Differential, auto (04/30/2024 10:01 AM CDT) Neutrophil abs 2.8 1.5 - 6.5 K/cumm Imm gran abs 0.0 0.0 - 0.1 K/cumm [facility] Lymphocyte abs 1.6 0.8 - 3.3 K/cumm [facility] Monocyte abs 0.7 0.2 - 0.8 K/cumm [facility] Eosinophil abs 0.6(H) 0.0 - 0.5 K/cumm [facility] Basophil abs 0.1 0.0 - 0.1 K/cumm [facility] Neutrophil pct 48.9 % [facility] Comment: Interpretive Data Percent cell count reference ranges are not reported, since discordance with absolute values may lead to misinterpretation of CBC data. Current Interpretive Data was last revised on 2017. Imm gran pct 0.2 % [facility] Comment: Interpretive Data Percent cell count reference ranges are not reported, since discordance with absolute values may lead to misinterpretation of CBC data. Current Interpretive Data was last revised on 2017. Lymphocyte pct 27.7 % [facility] Comment: Interpretive Data Percent cell count reference ranges are not reported, since discordance with absolute values may lead to misinterpretation of CBC data. Current Interpretive Data was last revised on 2017. Monocyte pct 11.4 % [facility] Comment: Interpretive Data Percent cell count reference ranges are not reported, since discordance with absolute values may lead to misinterpretation of CBC data. Current Interpretive Data was last revised on 2017. Eosinophil pct 10.2 % [facility] Comment: Interpretive Data Percent cell count reference ranges are not reported, since discordance with absolute values may lead to misinterpretation of CBC data. Current Interpretive Data was last revised on 2017. Basophil pct 1.6 % [facility] Comment: Interpretive Data Percent cell count reference ranges are not reported, since discordance with absolute values may lead to misinterpretation of CBC data. Current Interpretive Data was last revised on 2017. Blood 04/30/2024 10:0 1 AM CDT 04/30/2024 10:17 AM CDT Thang Del Valle LAB BLOOD ORDERABLES Fi nal Result Performing Organization Address [facility] de Phone Number [address] [address] * Magnesium (04/30/2024 10:01 AM CDT) [facility] Magnesium 2.3 1.4 - 2.5 mg/dL Blood 04/30/2024 10:0 1 AM CDT 04/30/2024 10:17 AM CDT Thang Mateo [employer] LAB BLOOD ORDERABLES Fi nal Result Performing Organization Address [facility] Co de Phone Number [address] [address] * Comprehensive metabolic panel (04/30/2024 10:01 AM CDT) Pathologist [facility] Sodium 145 135 - 145 mmol/L Potassium, pl 3.7 3.3 - 4.9 mmol/L [facility] Chloride 106 97 - 110 mmol/L [facility] CO2 28 22 - 32 mmol/L [facility] Anion gap 11 2 - 15 mmol/L [facility] BUN 24 6 - 25 mg/dL [facility] Creatinine 0.72 0.60 - 1.10 mg/dL [facility] Glucose 112 70 - 199 mg/dL [facility] Comment: Interpretive Data Fasting glucose >/= 126 [...] 2022. Calcium 9.5 8.5 - 10.3 mg/dL [facility] Bilirubin, total 0.3 0.1 - 1.2 mg/dL [facility] Protein, pl 6.6 6.5 - 8.5 g/dL [facility] Albumin 4.0 3.5 - 5.0 g/dL [facility] Alk phos 70 40 - 130 Units/L [facility] ALT 10 7 - 45 Units/L [facility] AST 25 10 - 45 Units/L [facility] Blood 04/30/2024 10:0 1 AM CDT 04/30/2024 10:17 AM CDT Thang Del Valle DO LAB BLOOD ORDERABLES nal Result [facility] [address] [facility] Department [place] [address] * (ABNORMAL) CBC with auto differential (04/30/2024 10:01 AM CDT) Pathologist [facility] WBC 5.7 3.8 - 9.9 K/cumm Hgb 9.1(L) 11.9 - 15.5 g/dL [facility] Hct 28.5(L) 35.6 - 45.5 % [facility] Plt 233 150 - 400 K/cumm [facility] MPV 10.7 9.1 - 12.3 fL [facility] RBC 3.27(L) 3.90 - 5.20 M/cumm [facility] MCV 87.2 81.3 - 96.4 fL [facility] MCH 27.8 27.1 - 33.3 pg [facility] MCHC 31.9(L) 32.3 - 35.7 g/dL [facility] RDW CV 15.0(H) 11.1 - 14.9 % [facility] RDW SD 47.3 35.7 - 48.1 fL [facility] NRBC abs 0.00 0.00 - 0.01 K/cumm [facility] Blood 04/30/2024 10:0 1 AM CDT 04/30/2024 10:17 AM CDT Thang Del Valle DO LAB BLOOD ORDERABLES Fi nal Result Performing Organization Address [facility] Co de Phone Number NADINE [address] [place] [address] * POCT glucose (04/30/2024 8:19 AM CDT) Glucose, POC 127 70 - 199 mg/dL Blood 04/30/2024 8:19 AM CDT 04/30/2024 8:19 AM CDT Thang Del Valle DO LAB POCT ORDERABLES - D EVICE Final Result Performing Organization Address [facility] Co de Phone Number [address] [place] [address] * POCT glucose (04/29/2024 7:50 PM CDT) Glucose, POC 124 70 - 199 mg/dL Glucose comment 1 Use This Result [facility] Blood 04/29/2024 7:50 PM CDT 04/29/2024 7:50 PM CDT Giancarlo Durant MD LAB POCT ORDERABLES - DEVIC E Final Result Performing Organization Address City/[facility] Co de Phone Number NADINE [address] [address] * POCT glucose (04/29/2024 4:00 PM CDT) Glucose, POC 133 70 - 199 mg/dL Glucose comment 1 Use This Result [facility] Glucose comment 2 RN/MD Notified [facility] Blood 04/29/2024 4:00 PM CDT 04/29/2024 4:00 PM CDT us Giancarlo Durant MD LAB POCT ORDERABLES - DEVIC E Final Result Performing Organization Address [facility] de Phone Number NADINE [address] [address] * POCT glucose (04/29/2024 12:01 PM CDT) Glucose, POC 128 70 - 199 mg/dL Glucose comment 1 Use This Result [facility] Glucose comment 2 RN/MD Notified [facility] Blood 04/29/2024 12:0 1 PM CDT 04/29/2024 12:01 PM CDT us Giancarlo Durant MD LAB POCT ORDERABLES - DEVIC E Final Result Performing Organization Address [facility] de Phone Number [address] [address] * POCT glucose (04/29/2024 7:16 AM CDT) Glucose, POC 132 70 - 199 mg/dL Glucose comment 1 Use This Result [facility] Glucose comment 2 RN/MD Notified [facility] Blood 04/29/2024 7:16 AM CDT 04/29/2024 7:16 AM CDT us Giancarlo Durant MD LAB POCT ORDERABLES - DEVIC E Final Result [facility] Department [place] [address] * eGFR (04/29/2024 12:18 AM CDT) Pathologist [facility] eGFR 88 >=60 mL/min/1. 73 m2 Comment: [...] LAB BLOOD ORDERABLES Final Resul t [facility] Department [place] [address] * Differential, auto (04/29/2024 12:18 AM CDT) [facility] Neutrophil abs 3.3 1.5 - 6.5 K/cumm Imm gran abs 0.0 0.0 - 0.1 K/cumm [facility] Lymphocyte abs 2.2 0.8 - 3.3 K/cumm [facility] Monocyte abs 0.7 0.2 - 0.8 K/cumm [facility] Eosinophil abs 0.5 0.0 - 0.5 K/cumm [facility] Basophil abs 0.1 0.0 - 0.1 K/cumm [facility] Neutrophil pct 48.8 % [facility] Comment: Interpretive Data Percent cell count reference ranges are not reported, since discordance with absolute values may lead to misinterpretation of CBC data. Current Interpretive Data was last revised on 2017. Imm gran pct 0.3 % [facility] Comment: Interpretive Data Percent cell count reference ranges are not reported, since discordance with absolute values may lead to misinterpretation of CBC data. Current Interpretive Data was last revised on 2017. Lymphocyte pct 31.9 % [facility] Comment: Interpretive Data Percent cell count reference ranges are not reported, since discordance with absolute values may lead to misinterpretation of CBC data. Current Interpretive Data was last revised on 2017. Monocyte pct 10.5 % [facility] Comment: Interpretive Data Percent cell count reference ranges are not reported, since discordance with absolute values may lead to misinterpretation of CBC data. Current Interpretive Data was last revised on 2017. Eosinophil pct 7.3 % [facility] Comment: Interpretive Data Percent cell count reference ranges are not reported, since discordance with absolute values may lead to misinterpretation of CBC data. Current Interpretive Data was last revised on 2017. Basophil pct 1.2 % [facility] Comment: Interpretive Data Percent cell count reference ranges are not reported, since discordance with absolute values may lead to misinterpretation of CBC data. Current Interpretive Data was last revised on 2017. Blood 04/29/2024 12:1 8 AM CDT 04/29/2024 12:39 AM CDT us Sosa Andino MD LAB BLOOD ORDERABLES Final Resul t [facility] [address] [facility] Department [place] [address] * (ABNORMAL) Renal function panel (04/29/2024 12:18 AM CDT) Pathologist [facility] Sodium 143 135 - 145 mmol/L Potassium, pl 3.7 3.3 - 4.9 mmol/L [facility] Chloride 106 97 - 110 mmol/L [facility] CO2 27 22 - 32 mmol/L [facility] Anion gap 10 2 - 15 mmol/L [facility] BUN 29(H) 6 - 25 mg/dL [facility] Creatinine 0.76 0.60 - 1.10 mg/dL [facility] Glucose 144 70 - 199 mg/dL [facility] Comment: Interpretive Data Fasting glucose >/= 126 [...] 2022. Calcium 10.2 8.5 - 10.3 mg/dL [facility] Phosphorus, pl 3.7 2.3 - 4.5 mg/dL [facility] Albumin 3.9 3.5 - 5.0 g/dL [facility] Blood 04/29/2024 12:1 8 AM CDT 04/29/2024 12:39 AM CDT us Sosa Andino MD LAB BLOOD ORDERABLES Final Resul t [facility] [address] [facility] Department [place] [address] * (ABNORMAL) CBC with auto differential (04/29/2024 12:18 AM CDT) [facility] WBC 6.8 3.8 - 9.9 K/cumm Hgb 9.0(L) 11.9 - 15.5 g/dL [facility] Hct 27.8(L) 35.6 - 45.5 % [facility] Plt 249 150 - 400 K/cumm [facility] MPV 10.6 9.1 - 12.3 fL [facility] RBC 3.26(L) 3.90 - 5.20 M/cumm [facility] MCV 85.3 81.3 - 96.4 fL [facility] MCH 27.6 27.1 - 33.3 pg [facility] MCHC 32.4 32.3 - 35.7 g/dL [facility] RDW CV 14.8 11.1 - 14.9 % [facility] RDW SD 45.7 35.7 - 48.1 fL [facility] NRBC abs 0.00 0.00 - 0.01 K/cumm [facility] Blood 04/29/2024 12:1 8 AM CDT 04/29/2024 12:39 AM CDT Sosa Andino MD LAB BLOOD ORDERABLES Final Resul t Performing Organization Address City/[facility] de Phone Number [address] [place] [address] * POCT glucose (04/28/2024 8:11 PM CDT) Glucose, POC 153 70 - 199 mg/dL Glucose comment 1 Use This Result [facility] Blood 04/28/2024 8:11 PM CDT 04/28/2024 8:11 PM CDT Giancarlo Durant MD LAB POCT ORDERABLES - DEVIC E Final Result Performing Organization Address City/[facility] Co de Phone Number [address] [place] [address] * POCT glucose (04/28/2024 4:48 PM CDT) Glucose, POC 109 70 - 199 mg/dL Glucose comment 1 Use This Result [facility] Blood 04/28/2024 4:48 PM CDT 04/28/2024 4:48 PM CDT Giancarlo Durant MD LAB POCT ORDERABLES - DEVIC E Final Result Performing Organization Address City/[facility]/ZIP Co de Phone Number HUGO[address] [place] [address] * POCT glucose (04/28/2024 11:35 AM CDT) Glucose, POC 162 70 - 199 mg/dL Glucose comment 1 Use This Result [facility] Blood 04/28/2024 11:3 5 AM CDT 04/28/2024 11:35 AM CDT Giancarlo Durant MD LAB POCT ORDERABLES - DEVIC E Final Result Performing Organization Address [facility] Co de Phone Number HUGO[address] [place] [address] * POCT glucose (04/28/2024 7:48 AM CDT) Glucose, POC 118 70 - 199 mg/dL Glucose comment 1 Use This Result [facility] Blood 04/28/2024 7:48 AM CDT 04/28/2024 7:48 AM CDT Giancarlo Durant MD LAB POCT ORDERABLES - DEVIC E Final Result Performing Organization Address [facility] Co de Phone Number [address] [place] [address] * POCT glucose (04/27/2024 8:13 PM CDT) Glucose, POC 124 70 - 199 mg/dL Glucose comment 1 Use This Result [facility] Blood 04/27/2024 8:13 PM CDT 04/27/2024 8:13 PM CDT Giancarlo Durant MD LAB POCT ORDERABLES - DEVIC E Final Result Performing Organization Address City/[facility]/ZIP Co de Phone Number CERNER [address] [address] * POCT glucose (04/27/2024 4:22 PM CDT) Glucose, POC 114 70 - 199 mg/dL Glucose comment 1 Use This Result [facility] Blood 04/27/2024 4:22 PM CDT 04/27/2024 4:22 PM CDT us Giancarlo Durant MD LAB POCT ORDERABLES - DEVIC E Final Result Performing Organization Address City/[facility] Co de Phone Number [address] [address] * POCT glucose (04/27/2024 11:48 AM CDT) Glucose, POC 140 70 - 199 mg/dL Glucose comment 1 Use This Result [facility] Blood 04/27/2024 11:4 8 AM CDT 04/27/2024 11:48 AM CDT Giancarlo Durant MD LAB POCT ORDERABLES - DEVIC E Final Result Performing Organization Address City/[facility] Co de Phone Number [address] [address] * POCT glucose (04/27/2024 7:33 AM CDT) Glucose, POC 115 70 - 199 mg/dL Glucose comment 1 Use This Result [facility] Blood 04/27/2024 7:33 AM CDT 04/27/2024 7:33 AM CDT Giancarlo Durant MD LAB POCT ORDERABLES - DEVIC E Final Result [address] [address] * eGFR (04/27/2024 12:42 AM CDT) Pathologist [facility] eGFR >90 >=60 mL/min/1. 73 m2 [...] LAB BLOOD ORDERABLES Final Resul t [facility] [address] [facility] [place] [address] * (ABNORMAL) Differential, auto (04/27/2024 12:42 AM CDT) Pathologist [facility] Neutrophil abs 6.3 1.5 - 6.5 K/cumm Imm gran abs 0.1 0.0 - 0.1 K/cumm [facility] Lymphocyte abs 2.1 0.8 - 3.3 K/cumm [facility] Monocyte abs 0.8 0.2 - 0.8 K/cumm [facility] Eosinophil abs 0.6(H) 0.0 - 0.5 K/cumm [facility] Basophil abs 0.1 0.0 - 0.1 K/cumm [facility] Neutrophil pct 62.7 % [facility] Comment: Interpretive Data Percent cell count reference ranges are not reported, since discordance with absolute values may lead to misinterpretation of CBC data. Current Interpretive Data was last revised on 2017. Imm gran pct 1.4 % [facility] Comment: Interpretive Data Percent cell count reference ranges are not reported, since discordance with absolute values may lead to misinterpretation of CBC data. Current Interpretive Data was last revised on 2017. Lymphocyte pct 21.0 % [facility] Comment: Interpretive Data Percent cell count reference ranges are not reported, since discordance with absolute values may lead to misinterpretation of CBC data. Current Interpretive Data was last revised on 2017. Monocyte pct 8.1 % [facility] Comment: Interpretive Data Percent cell count reference ranges are not reported, since discordance with absolute values may lead to misinterpretation of CBC data. Current Interpretive Data was last revised on 2017. Eosinophil pct 5.6 % [facility] Comment: Interpretive Data Percent cell count reference ranges are not reported, since discordance with absolute values may lead to misinterpretation of CBC data. Current Interpretive Data was last revised on 2017. Basophil pct 1.2 % [facility] Comment: Interpretive Data Percent cell count reference ranges are not reported, since discordance with absolute values may lead to misinterpretation of CBC data. Current Interpretive Data was last revised on 2017. Blood 04/27/2024 12:4 2 AM CDT 04/27/2024 1:13 AM CDT us Sosa Andino MD LAB BLOOD ORDERABLES Final Resul t [facility] [address] [facility] Department of Laboratories [place], [place] [id number] * Renal function panel (04/27/2024 12:42 AM CDT) Sodium 142 135 - 145 mmol/L Potassium, pl 3.6 3.3 - 4.9 mmol/L [facility] Chloride 106 97 - 110 mmol/L [facility] CO2 24 22 - 32 mmol/L [facility] Anion gap 12 2 - 15 mmol/L [facility] BUN 15 6 - 25 mg/dL [facility] Creatinine 0.70 0.60 - 1.10 mg/dL [facility] Glucose 112 70 - 199 mg/dL [facility] Comment: Interpretive Data Fasting glucose >/= 126 [...] 2022. Calcium 10.0 8.5 - 10.3 mg/dL [facility] Phosphorus, pl 3.5 2.3 - 4.5 mg/dL [facility] Albumin 4.0 3.5 - 5.0 g/dL [facility] Blood 04/27/2024 12:4 2 AM CDT 04/27/2024 1:12 AM CDT us Sosa Andino MD LAB BLOOD ORDERABLES Final Resul t [facility] [address] [facility] [place] [address] * (ABNORMAL) CBC with auto differential (04/27/2024 12:42 AM CDT) WBC 10.0(H) 3.8 - 9.9 K/cumm Hgb 9.4(L) 11.9 - 15.5 g/dL [facility] Hct 29.5(L) 35.6 - 45.5 % [facility] Plt 270 150 - 400 K/cumm [facility] MPV 10.8 9.1 - 12.3 fL [facility] RBC 3.43(L) 3.90 - 5.20 M/cumm [facility] MCV 86.0 81.3 - 96.4 fL [facility] MCH 27.4 27.1 - 33.3 pg [facility] MCHC 31.9(L) 32.3 - 35.7 g/dL [facility] RDW CV 14.8 11.1 - 14.9 % [facility] RDW SD 46.2 35.7 - 48.1 fL [facility] NRBC abs 0.00 0.00 - 0.01 K/cumm [facility] Blood 04/27/2024 12:4 2 AM CDT 04/27/2024 1:13 AM CDT us Sosa Andino MD LAB BLOOD ORDERABLES Final Resul t Performing Organization Address City/[facility] Co de Phone Number [facility] [place] [address] * POCT glucose (04/26/2024 7:58 PM CDT) Glucose, POC 124 70 - 199 mg/dL Glucose comment 1 Use This Result [facility] Blood 04/26/2024 7:58 PM CDT 04/26/2024 7:58 PM CDT us Sosa Andino MD LAB POCT ORDERABLES - DEVICE Fin al Result Performing Organization Address [facility] Co de Phone Number [address] [place] [address] * POCT glucose (04/26/2024 4:21 PM CDT) Glucose, POC 121 70 - 199 mg/dL Glucose comment 1 Use This Result [facility] Blood 04/26/2024 4:21 PM CDT 04/26/2024 4:21 PM CDT us Sosa Andino MD LAB POCT ORDERABLES - DEVICE Fin al Result Performing Organization Address [facility] Co de Phone Number [address] [place] [address] * POCT glucose (04/26/2024 11:11 AM CDT) Glucose, POC 136 70 - 199 mg/dL Glucose comment 1 Use This Result [facility] Blood 04/26/2024 11:1 1 AM CDT 04/26/2024 11:11 AM CDT Sosa Andino MD LAB POCT ORDERABLES - DEVICE Fin al Result Performing Organization Address [facility] Co de Phone Number [address] [place] [address] * POCT glucose (04/26/2024 7:11 AM CDT) Glucose, POC 125 70 - 199 mg/dL Glucose comment 1 Use This Result [facility] Blood 04/26/2024 7:11 AM CDT 04/26/2024 7:11 AM CDT Sosa Andino MD LAB POCT ORDERABLES - DEVICE Fin al Result Performing Organization Address [facility] Co de Phone Number [address] [place] [address] * POCT glucose (04/25/2024 8:23 PM CDT) Glucose, POC 136 70 - 199 mg/dL Blood 04/25/2024 8:23 PM CDT 04/25/2024 8:23 PM CDT Result [facility] Sosa Andino MD LAB POCT ORDERABLES - DEVICE Fin al Result Performing Organization Address [facility] Co de Phone Number [address] [place] [address] * POCT glucose (04/25/2024 4:27 PM CDT) Glucose, POC 128 70 - 199 mg/dL Glucose comment 1 Use This Result [facility] Blood 04/25/2024 4:27 PM CDT 04/25/2024 4:27 PM CDT Sosa Andino MD LAB POCT ORDERABLES - DEVICE Fin al Result Performing Organization Address [facility] de Phone Number [facility] [address] [place] [address] * POCT glucose (04/25/2024 11:14 AM CDT) Glucose, POC 124 70 - 199 mg/dL Glucose comment 1 Use This Result [facility] Blood 04/25/2024 11:1 4 AM CDT 04/25/2024 11:14 AM CDT Sosa Andino MD LAB POCT ORDERABLES - DEVICE Fin al Result Performing Organization Address [facility] de Phone Number [facility] [address] [address] * POCT glucose (04/25/2024 7:33 AM CDT) Glucose, POC 120 70 - 199 mg/dL Glucose comment 1 Use This Result [facility] Blood 04/25/2024 7:33 AM CDT 04/25/2024 7:33 AM CDT Sosa Andino MD LAB POCT ORDERABLES - DEVICE Fin al Result Performing Organization Address [facility] de Phone Number HUGO[address] [place] [address] * eGFR (04/25/2024 6:42 AM CDT) eGFR [...] MD LAB BLOOD ORDERABLES Final Resul t [facility] [address] [facility] [place] [address] * (ABNORMAL) Differential, auto (04/25/2024 6:42 AM CDT) Pathologist [facility] Neutrophil abs 5.6 1.5 - 6.5 K/cumm Imm gran abs 0.0 0.0 - 0.1 K/cumm [facility] Lymphocyte abs 1.9 0.8 - 3.3 K/cumm [facility] Monocyte abs 0.7 0.2 - 0.8 K/cumm [facility] Eosinophil abs 0.8(H) 0.0 - 0.5 K/cumm [facility] Basophil abs 0.1 0.0 - 0.1 K/cumm [facility] Neutrophil pct 61.4 % [facility] Comment: Interpretive Data Percent cell count reference ranges are not reported, since discordance with absolute values may lead to misinterpretation of CBC data. Current Interpretive Data was last revised on 2017. Imm gran pct 0.2 % [facility] Comment: Interpretive Data Percent cell count reference ranges are not reported, since discordance with absolute values may lead to misinterpretation of CBC data. Current Interpretive Data was last revised on 2017. Lymphocyte pct 21.0 % [facility] Comment: Interpretive Data Percent cell count reference ranges are not reported, since discordance with absolute values may lead to misinterpretation of CBC data. Current Interpretive Data was last revised on 2017. Monocyte pct 7.1 % [facility] Comment: Interpretive Data Percent cell count reference ranges are not reported, since discordance with absolute values may lead to misinterpretation of CBC data. Current Interpretive Data was last revised on 2017. Eosinophil pct 8.9 % [facility] Comment: Interpretive Data Percent cell count reference ranges are not reported, since discordance with absolute values may lead to misinterpretation of CBC data. Current Interpretive Data was last revised on 2017. Basophil pct 1.4 % [facility] Comment: Interpretive Data Percent cell count reference ranges are not reported, since discordance with absolute values may lead to misinterpretation of CBC data. Current Interpretive Data was last revised on 2017. Blood 04/25/2024 6:42 AM CDT 04/25/2024 7:03 AM CDT us Sosa Andino MD LAB BLOOD ORDERABLES Final Resul t [facility] [address] [facility] Department [place] [address] * Renal function panel (04/25/2024 6:42 AM CDT) Sodium 142 135 - 145 mmol/L Potassium, pl 3.6 3.3 - 4.9 mmol/L [facility] Chloride 107 97 - 110 mmol/L [facility] CO2 24 22 - 32 mmol/L [facility] Anion gap 11 2 - 15 mmol/L [facility] BUN 12 6 - 25 mg/dL [facility] Creatinine 0.71 0.60 - 1.10 mg/dL [facility] Glucose 117 70 - 199 mg/dL [facility] Comment: Interpretive Data Fasting glucose >/= 126 [...] 2022. Calcium 9.6 8.5 - 10.3 mg/dL [facility] Phosphorus, pl 3.1 2.3 - 4.5 mg/dL [facility] Albumin 3.7 3.5 - 5.0 g/dL [facility] Blood 04/25/2024 6:42 AM CDT 04/25/2024 7:03 AM CDT Sosa Andino MD LAB BLOOD ORDERABLES Final Resul t [facility] [address] [facility] Department [place] [address] * (ABNORMAL) CBC with auto differential (04/25/2024 6:42 AM CDT) WBC 9.1 3.8 - 9.9 K/cumm Hgb 9.1(L) 11.9 - 15.5 g/dL [facility] Hct 28.7(L) 35.6 - 45.5 % [facility] Plt 259 150 - 400 K/cumm [facility] MPV 10.5 9.1 - 12.3 fL [facility] RBC 3.32(L) 3.90 - 5.20 M/cumm [facility] MCV 86.4 81.3 - 96.4 fL [facility] MCH 27.4 27.1 - 33.3 pg [facility] MCHC 31.7(L) 32.3 - 35.7 g/dL [facility] RDW CV 14.6 11.1 - 14.9 % [facility] RDW SD 46.5 35.7 - 48.1 fL [facility] NRBC abs 0.00 0.00 - 0.01 K/cumm [facility] Blood 04/25/2024 6:42 AM CDT 04/25/2024 7:03 AM CDT Sosa Andino MD LAB BLOOD ORDERABLES Final Resul t Performing Organization Address [facility] de Phone Number [address] [place] [address] * POCT glucose (04/24/2024 8:03 PM CDT) Glucose, POC 168 70 - 199 mg/dL Glucose comment 1 Use This Result [facility] Blood 04/24/2024 8:03 PM CDT 04/24/2024 8:03 PM CDT Result [facility] us Sosa Andino MD LAB POCT ORDERABLES - DEVICE Fin al Result Performing Organization Address [facility] de Phone Number [address] [place] [address] * POCT glucose (04/24/2024 4:35 PM CDT) Glucose, POC 123 70 - 199 mg/dL Glucose comment 1 Use This Result [facility] Blood 04/24/2024 4:35 PM CDT 04/24/2024 4:35 PM CDT Result [facility] Sosa Andino MD LAB POCT ORDERABLES - DEVICE Fin al Result Performing Organization Address [facility] de Phone Number [address] [place] [address] * CT Head WO Contrast (04/24/2024 4:25 [...] D: ??04/24/2024 5:25 PM T: Report ID: [id number] Reading Location: ??[id number] Procedure Note Steven Garcia MD - 04/24/2024 [...] Steven Garcia M.D. NICOLAS T: Report ID: [id number] Reading Location: [id number] us Arpan Rodgers MD IMG CT PROCEDURES Fi nal Result * POCT glucose (04/24/2024 11:47 AM CDT) [facility] Signature Glucose, POC 128 70 - 199 mg/dL Glucose comment 1 Use This Result [facility] Blood 04/24/2024 11:4 7 AM CDT 04/24/2024 11:47 AM CDT Sosa Andino MD LAB POCT ORDERABLES - DEVICE Fin al Result [facility] [address] [facility] Department [place] [address] * US Carotids Duplex Bilateral (04/24/2024 9:07 AM CDT) Anatomical Region Laterality Modality Vascular Bilateral Ultrasound 04/24/2024 Narrative 04/24/2024 12:09 PM CDT [employer] Job ID: [id number] [employer] Document ID: [id number] Dictated date/time: [id number] CAROTID DUPLEX. REASON FOR EXAM Slurred speech. [...] subclavian arterial stenosis. Job ID/Internal Job ID: ??[id number] us Radha Land [employer] IMG US PROCEDURES Final Result * POCT glucose (04/24/2024 7:29 AM CDT) Glucose, POC 123 70 - 199 mg/dL Glucose comment 1 Use This Result [facility] Blood 04/24/2024 7:29 AM CDT 04/24/2024 7:29 AM CDT us Sosa Andino MD LAB POCT ORDERABLES - DEVICE Fin al Result [facility] [address] [facility] Department [place] [address] * eGFR (04/24/2024 7:01 AM [...] MD LAB BLOOD ORDERABLES Final Resul t [facility] [address] [facility] [place] [address] * (ABNORMAL) Differential, auto (04/24/2024 7:01 AM CDT) Neutrophil abs 5.2 1.5 - 6.5 K/cumm Imm gran abs 0.0 0.0 - 0.1 K/cumm [facility] Lymphocyte abs 1.8 0.8 - 3.3 K/cumm [facility] Monocyte abs 0.6 0.2 - 0.8 K/cumm [facility] Eosinophil abs 0.8(H) 0.0 - 0.5 K/cumm [facility] Basophil abs 0.1 0.0 - 0.1 K/cumm [facility] Neutrophil pct 61.1 % [facility] Comment: Interpretive Data Percent cell count reference ranges are not reported, since discordance with absolute values may lead to misinterpretation of CBC data. Current Interpretive Data was last revised on 2017. Imm gran pct 0.2 % [facility] Comment: Interpretive Data Percent cell count reference ranges are not reported, since discordance with absolute values may lead to misinterpretation of CBC data. Current Interpretive Data was last revised on 2017. Lymphocyte pct 20.8 % [facility] Comment: Interpretive Data Percent cell count reference ranges are not reported, since discordance with absolute values may lead to misinterpretation of CBC data. Current Interpretive Data was last revised on 2017. Monocyte pct 6.8 % [facility] Comment: Interpretive Data Percent cell count reference ranges are not reported, since discordance with absolute values may lead to misinterpretation of CBC data. Current Interpretive Data was last revised on 2017. Eosinophil pct 9.9 % [facility] Comment: Interpretive Data Percent cell count reference ranges are not reported, since discordance with absolute values may lead to misinterpretation of CBC data. Current Interpretive Data was last revised on 2017. Basophil pct 1.2 % [facility] Comment: Interpretive Data Percent cell count reference ranges are not reported, since discordance with absolute values may lead to misinterpretation of CBC data. Current Interpretive Data was last revised on 2017. Blood 04/24/2024 7:01 AM CDT 04/24/2024 7:29 AM CDT Sosa Andino MD LAB BLOOD ORDERABLES Final Resul t Performing Organization Address City/[facility] Co de Phone Number [address] [place] [address] * Magnesium (04/24/2024 7:01 AM CDT) Pathologist [facility] Magnesium 2.3 1.4 - 2.5 mg/dL Blood 04/24/2024 7:01 AM CDT 04/24/2024 7:29 AM CDT Jammie Dickson NP LAB BLOOD ORDERABLES Fi nal Result Performing Organization Address [facility] de Phone Number [address] [address] * Renal function panel (04/24/2024 7:01 AM CDT) Pathologist [facility] Sodium 143 135 - 145 mmol/L Potassium, pl 4.1 3.3 - 4.9 mmol/L [facility] Chloride 109 97 - 110 mmol/L [facility] CO2 23 22 - 32 mmol/L [facility] Anion gap 11 2 - 15 mmol/L [facility] BUN 17 6 - 25 mg/dL [facility] Creatinine 0.72 0.60 - 1.10 mg/dL [facility] Glucose 106 70 - 199 mg/dL [facility] Comment: Interpretive Data Fasting glucose >/= 126 [...] 2022. Calcium 9.3 8.5 - 10.3 mg/dL [facility] Phosphorus, pl 2.9 2.3 - 4.5 mg/dL [facility] Albumin 3.7 3.5 - 5.0 g/dL [facility] Blood 04/24/2024 7:01 AM CDT 04/24/2024 7:29 AM CDT Sosa Andino MD LAB BLOOD ORDERABLES Final Resul t [facility] [address] [facility] Department [place] [address] * (ABNORMAL) CBC with auto differential (04/24/2024 7:01 AM CDT) Pathologist [facility] WBC 8.4 3.8 - 9.9 K/cumm Hgb 9.0(L) 11.9 - 15.5 g/dL [facility] Hct 28.3(L) 35.6 - 45.5 % [facility] Plt 268 150 - 400 K/cumm [facility] MPV 10.3 9.1 - 12.3 fL [facility] RBC 3.33(L) 3.90 - 5.20 M/cumm [facility] MCV 85.0 81.3 - 96.4 fL [facility] MCH 27.0(L) 27.1 - 33.3 pg [facility] MCHC 31.8(L) 32.3 - 35.7 g/dL [facility] RDW CV 14.7 11.1 - 14.9 % [facility] RDW SD 45.1 35.7 - 48.1 fL [facility] NRBC abs 0.00 0.00 - 0.01 K/cumm [facility] Blood 04/24/2024 7:01 AM CDT 04/24/2024 7:29 AM CDT Sosa Andino MD LAB BLOOD ORDERABLES Final Resul t Performing Organization Address [facility] Co de Phone Number [facility] [address] [place] [address] * ECG 12 lead (04/24/2024 12:14 AM CDT) [facility] Ventricular Rate EKG/Min 80 BPM [facility] Atrial Rate 80 BPM [facility] WA-Interval (MSEC) 142 ms [facility] QRS-Interval (MSEC) 76 ms [facility] QT-Interval (MSEC) 366 ms [facility] QTc 422 ms [facility] P [place] 52 degrees [facility] R [place] 14 degrees [facility] T [place] 86 degrees [facility] Diagnosis Normal sinus rhythm Nonspecific T wave abnormality No previous ECGs available Confirmed by SULTAN REAL M.D. ([id number]) on 04/24/2024 8:40:31 PM [facility] 04/24/2024 12:1 4 AM CDT 04/24/2024 8:40 PM CDT Jammie Dickson [employer]IST ECG ORDERABLES Final R esult Performing Organization Address [facility] de Phone Number [facility] * POCT glucose (04/23/2024 8:31 PM CDT) Glucose, POC 132 70 - 199 mg/dL Blood 04/23/2024 8:31 PM CDT 04/23/2024 8:31 PM CDT Sosa Andino MD LAB POCT ORDERABLES - DEVICE Fin al Result Performing Organization Address [facility] Co de Phone Number [facility] [address] [place] [address] * POCT glucose (04/23/2024 4:55 PM CDT) Glucose, POC 113 70 - 199 mg/dL Glucose comment 1 Use This Result [facility] Blood 04/23/2024 4:55 PM CDT 04/23/2024 4:55 PM CDT Sosa Andino MD LAB POCT ORDERABLES - DEVICE Fin al Result Performing Organization Address [facility] Co de Phone Number [facility] [address] [place] [address] * POCT glucose (04/23/2024 11:54 AM CDT) Glucose, POC 160 70 - 199 mg/dL Glucose comment 1 Use This Result [facility] Blood 04/23/2024 11:5 4 AM CDT 04/23/2024 11:54 AM CDT Sosa Andino MD LAB POCT ORDERABLES - DEVICE Fin al Result Performing Organization Address [facility] de Phone Number HUGO[address] [address] * eGFR (04/23/2024 10:24 AM CDT) eGFR [...] MD LAB BLOOD ORDERABLES Final Resul t [facility] [address] [facility] [place] [address] * (ABNORMAL) Differential, auto (04/23/2024 10:24 AM CDT) Pathologist [facility] Neutrophil abs 5.4 1.5 - 6.5 K/cumm Imm gran abs 0.0 0.0 - 0.1 K/cumm [facility] Lymphocyte abs 1.5 0.8 - 3.3 K/cumm [facility] Monocyte abs 0.5 0.2 - 0.8 K/cumm [facility] Eosinophil abs 0.6(H) 0.0 - 0.5 K/cumm [facility] Basophil abs 0.1 0.0 - 0.1 K/cumm [facility] Neutrophil pct 66.7 % [facility] Comment: Interpretive Data Percent cell count reference ranges are not reported, since discordance with absolute values may lead to misinterpretation of CBC data. Current Interpretive Data was last revised on 2017. Imm gran pct 0.1 % [facility] Comment: Interpretive Data Percent cell count reference ranges are not reported, since discordance with absolute values may lead to misinterpretation of CBC data. Current Interpretive Data was last revised on 2017. Lymphocyte pct 18.3 % [facility] Comment: Interpretive Data Percent cell count reference ranges are not reported, since discordance with absolute values may lead to misinterpretation of CBC data. Current Interpretive Data was last revised on 2017. Monocyte pct 6.1 % [facility] Comment: Interpretive Data Percent cell count reference ranges are not reported, since discordance with absolute values may lead to misinterpretation of CBC data. Current Interpretive Data was last revised on 2017. Eosinophil pct 7.7 % [facility] Comment: Interpretive Data Percent cell count reference ranges are not reported, since discordance with absolute values may lead to misinterpretation of CBC data. Current Interpretive Data was last revised on 2017. Basophil pct 1.1 % [facility] Comment: Interpretive Data Percent cell count reference ranges are not reported, since discordance with absolute values may lead to misinterpretation of CBC data. Current Interpretive Data was last revised on 2017. Blood 04/23/2024 10:2 4 AM CDT 04/23/2024 10:55 AM CDT Sosa Andino MD LAB BLOOD ORDERABLES Final Resul t [facility] [address] [facility] [place] [address] * Renal function panel (04/23/2024 10:24 AM CDT) Sodium 139 135 - 145 mmol/L Potassium, pl 3.4 3.3 - 4.9 mmol/L [facility] Chloride 104 97 - 110 mmol/L [facility] CO2 23 22 - 32 mmol/L [facility] Anion gap 12 2 - 15 mmol/L [facility] BUN 17 6 - 25 mg/dL [facility] Creatinine 0.78 0.60 - 1.10 mg/dL [facility] Glucose 174 70 - 199 mg/dL [facility] Comment: Interpretive Data Fasting glucose >/= 126 [...] 2022. Calcium 10.0 8.5 - 10.3 mg/dL [facility] Phosphorus, pl 3.6 2.3 - 4.5 mg/dL [facility] Albumin 3.9 3.5 - 5.0 g/dL [facility] Blood 04/23/2024 10:2 4 AM CDT 04/23/2024 10:55 AM CDT Sosa Andino MD LAB BLOOD ORDERABLES Final Resul t Performing Organization Address City/[facility] Co de Phone Number [facility] [address] [place] [address] * (ABNORMAL) CBC with auto differential (04/23/2024 10:24 AM CDT) Pathologist [facility] WBC 8.2 3.8 - 9.9 K/cumm Hgb 9.9(L) 11.9 - 15.5 g/dL [facility] Hct 30.7(L) 35.6 - 45.5 % [facility] Plt 290 150 - 400 K/cumm [facility] MPV 10.4 9.1 - 12.3 fL [facility] RBC 3.59(L) 3.90 - 5.20 M/cumm [facility] MCV 85.5 81.3 - 96.4 fL [facility] MCH 27.6 27.1 - 33.3 pg [facility] MCHC 32.2(L) 32.3 - 35.7 g/dL [facility] RDW CV 14.6 11.1 - 14.9 % [facility] RDW SD 45.0 35.7 - 48.1 fL [facility] NRBC abs 0.00 0.00 - 0.01 K/cumm [facility] Blood 04/23/2024 10:2 4 AM CDT 04/23/2024 10:55 AM CDT Sosa Andino MD LAB BLOOD ORDERABLES Final Resul t Performing Organization Address City/[facility]/ZIP Co de Phone Number NADINE [address] [place] [address] * POCT glucose (04/23/2024 8:02 AM CDT) Glucose, POC 136 70 - 199 mg/dL Blood 04/23/2024 8:02 AM CDT 04/23/2024 8:02 AM CDT Sosa Andino MD LAB POCT ORDERABLES - DEVICE Fin al Result Performing Organization Address City/[facility] Co de Phone Number NADINE [address] [place] [address] * POCT glucose (04/22/2024 7:53 PM CDT) Glucose, POC 134 70 - 199 mg/dL Glucose comment 1 Use This Result [facility] Blood 04/22/2024 7:53 PM CDT 04/22/2024 7:53 PM CDT Sosa Andino MD LAB POCT ORDERABLES - DEVICE Fin al Result Performing Organization Address [facility] de Phone Number HUGO[address] [place] [address] * CTA Chest Abdomen Pelvis (04/22/2024 5:25 [...] D: ??04/22/2024 7:42 PM T: Report ID: [id number] Reading Location: ??[id number] Procedure Note Channing Lopez MD - 04/22/2024 [...] Channing Lopez M.D. RB T: Report ID: [id number] Reading Location: [id number] Sosa Andino MD IMG CT PROCEDURES Final Result * POCT glucose (04/22/2024 4:03 PM CDT) Glucose, POC 167 70 - 199 mg/dL Glucose comment 1 Use This Result [facility] Blood 04/22/2024 4:03 PM CDT 04/22/2024 4:03 PM CDT Sosa Andino MD LAB POCT ORDERABLES - DEVICE Fin al Result Performing Organization Address [facility] Co de Phone Number NADINE [address] [place] [address] * POCT glucose (04/22/2024 12:02 PM CDT) [facility] Signature Glucose, POC 123 70 - 199 mg/dL Glucose comment 1 Use This Result NADINE Blood 04/22/2024 12:0 2 PM CDT 04/22/2024 12:02 PM CDT Sosa Andino MD LAB POCT ORDERABLES - DEVICE Cuauhtemoc al Result Performing Organization Address [facility] de Phone Number [address] [address] * TRANSESOPHAGEAL ECHO (SHIVAM) W DOPPLER/CF WO CONTRAST (04/22/2024 10:00 AM CDT) Anatomical Region Laterality Modality Ultrasound 04/22/2024 10:0 0 AM CDT Narrative 04/22/2024 10:57 AM CDT ? Version 2 ?Transesophageal Echocardiogram + ----- + :Name: LYNN ZELAYA JStudy Date: 04/22/2024 ?Status: MHB ?: : ?Patient Location: [facility] 2 [facility]^[id number]^Height: 64 in ?: : ?Weight: 127 lbBP: [...] or regurgitation. There is mild TR, trace WA, slight restriction of mitral valve anterior leaflet [...] Date: 04/22/2024Status: MHB : : [facility][id number]^Height: 64 in : : : 127 lbBP: [...] stenosisor regurgitation. There is mild TR, trace WA, slight restriction of mitralvalve anterior leaflet with [...] ORDERABLES - DEVICE Fin al Result NADINE [address] [facility] [place] [address] * eGFR (04/22/2024 7:16 AM [...] MD LAB BLOOD ORDERABLES Final Resul t [facility] [address] [facility] [place] [address] * (ABNORMAL) Differential, auto (04/22/2024 7:16 AM CDT) Pathologist [facility] Neutrophil abs 2.5 1.5 - 6.5 K/cumm Imm gran abs 0.0 0.0 - 0.1 K/cumm [facility] Lymphocyte abs 1.8 0.8 - 3.3 K/cumm [facility] Monocyte abs 0.6 0.2 - 0.8 K/cumm [facility] Eosinophil abs 0.8(H) 0.0 - 0.5 K/cumm [facility] Basophil abs 0.1 0.0 - 0.1 K/cumm [facility] Neutrophil pct 42.8 % [facility] Comment: Interpretive Data Percent cell count reference ranges are not reported, since discordance with absolute values may lead to misinterpretation of CBC data. Current Interpretive Data was last revised on 2017. Imm gran pct 0.2 % [facility] Comment: Interpretive Data Percent cell count reference ranges are not reported, since discordance with absolute values may lead to misinterpretation of CBC data. Current Interpretive Data was last revised on 2017. Lymphocyte pct 31.5 % [facility] Comment: Interpretive Data Percent cell count reference ranges are not reported, since discordance with absolute values may lead to misinterpretation of CBC data. Current Interpretive Data was last revised on 2017. Monocyte pct 10.2 % [facility] Comment: Interpretive Data Percent cell count reference ranges are not reported, since discordance with absolute values may lead to misinterpretation of CBC data. Current Interpretive Data was last revised on 2017. Eosinophil pct 13.9 % [facility] Comment: Interpretive Data Percent cell count reference ranges are not reported, since discordance with absolute values may lead to misinterpretation of CBC data. Current Interpretive Data was last revised on 2017. Basophil pct 1.4 % [facility] Comment: Interpretive Data Percent cell count reference ranges are not reported, since discordance with absolute values may lead to misinterpretation of CBC data. Current Interpretive Data was last revised on 2017. Blood 04/22/2024 7:16 AM CDT 04/22/2024 8:12 AM CDT Sosa Andino MD LAB BLOOD ORDERABLES Final Resul t [facility] [address] [facility] [place] [address] * Renal function panel (04/22/2024 7:16 AM CDT) Sodium 140 135 - 145 mmol/L Potassium, pl 3.8 3.3 - 4.9 mmol/L [facility] Chloride 105 97 - 110 mmol/L [facility] CO2 27 22 - 32 mmol/L [facility] Anion gap 8 2 - 15 mmol/L [facility] BUN 13 6 - 25 mg/dL [facility] Creatinine 0.81 0.60 - 1.10 mg/dL [facility] Glucose 117 70 - 199 mg/dL [facility] Comment: Interpretive Data Fasting glucose >/= 126 [...] 2022. Calcium 9.6 8.5 - 10.3 mg/dL [facility] Phosphorus, pl 4.3 2.3 - 4.5 mg/dL [facility] Albumin 3.7 3.5 - 5.0 g/dL [facility] Blood 04/22/2024 7:16 AM CDT 04/22/2024 8:12 AM CDT Sosa Andino MD LAB BLOOD ORDERABLES Final Resul t Performing Organization Address City/[facility] Co de Phone Number [facility] [address] [facility] [place] [address] * (ABNORMAL) CBC with auto differential (04/22/2024 7:16 AM CDT) WBC 5.8 3.8 - 9.9 K/cumm Hgb 8.8(L) 11.9 - 15.5 g/dL [facility] Hct 27.9(L) 35.6 - 45.5 % [facility] Plt 262 150 - 400 K/cumm [facility] MPV 10.6 9.1 - 12.3 fL [facility] RBC 3.21(L) 3.90 - 5.20 M/cumm [facility] MCV 86.9 81.3 - 96.4 fL [facility] MCH 27.4 27.1 - 33.3 pg [facility] MCHC 31.5(L) 32.3 - 35.7 g/dL [facility] RDW CV 14.4 11.1 - 14.9 % [facility] RDW SD 45.1 35.7 - 48.1 fL [facility] NRBC abs 0.00 0.00 - 0.01 K/cumm [facility] Blood 04/22/2024 7:16 AM CDT 04/22/2024 8:12 AM CDT Sosa Andino MD LAB BLOOD ORDERABLES Final Resul t NADINE [address] [address] * POCT glucose (04/21/2024 7:59 PM CDT) Glucose, POC 176 70 - 199 mg/dL Glucose comment 1 Use This Result [facility] Blood 04/21/2024 7:59 PM CDT 04/21/2024 7:59 PM CDT Sosa Andino MD LAB POCT ORDERABLES - DEVICE Fin al Result Performing Organization Address [facility] de Phone Number HU[address] [address] * POCT glucose (04/21/2024 4:57 PM CDT) Glucose, POC 139 70 - 199 mg/dL Glucose comment 1 Use This Result [facility] Blood 04/21/2024 4:57 PM CDT 04/21/2024 4:57 PM CDT Sosa Andino MD LAB POCT ORDERABLES - DEVICE Fin al Result Performing Organization Address [facility] de Phone Number [address] [address] * EEG (04/21/2024 1:48 PM CDT) Anatomical [...] mg/dL Glucose comment 1 Use This Result [facility] Blood 04/21/2024 12:0 5 PM CDT 04/21/2024 12:05 PM CDT Result [facility] Sosa Andino MD LAB POCT ORDERABLES - DEVICE Fin al Result Performing Organization Address [facility] Co de Phone Number [address] [place] [address] * POCT glucose (04/21/2024 8:05 AM CDT) Glucose, POC 116 70 - 199 mg/dL Glucose comment 1 Use This Result [facility] Blood 04/21/2024 8:05 AM CDT 04/21/2024 8:05 AM CDT Result [facility] Sosa Andino MD LAB POCT ORDERABLES - DEVICE Fin al Result Performing Organization Address [facility] Co de Phone Number [place] [address] [facility] [place] [address] * POCT glucose (04/20/2024 9:30 PM CDT) Glucose, POC 115 70 - 199 mg/dL Glucose comment 1 Use This Result [facility] Blood 04/20/2024 9:30 PM CDT 04/20/2024 9:30 PM CDT Sosa Andino MD LAB POCT ORDERABLES - DEVICE Fin al Result Performing Organization Address [facility] de Phone Number [address] [place] [address] * POCT glucose (04/20/2024 4:26 PM CDT) Glucose, POC 141 70 - 199 mg/dL Glucose comment 1 Use This Result [facility] Blood 04/20/2024 4:26 PM CDT 04/20/2024 4:26 PM CDT Sosa Andino MD LAB POCT ORDERABLES - DEVICE Fin al Result Performing Organization Address [facility] de Phone Number [address] [address] * CTA Head Neck W WO Contrast [...] same day for detailed evaluation of bilateral, hkqiy-elhopqa-yuth-left, acute infarcts superimposed on constellation of chronic findings. 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 ??Patent left PARTS TECHNICIAN, noting variable, to include severe, stenosis along [...] same day for detailed evaluation of bilateral, ntgky-kdlzjcs-amqg-left, acute infarcts superimposed on constellation of chronic findings. 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 Patentleft PARTS TECHNICIAN, noting variable, to include severe, stenosis along [...] earlier same day fordetailed evaluation of bilateral, tbwmw-xuprxxl-rlfb-left, acute infarctssuperimposed on constellation of chronic findings. 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 NICOLAS T: Report ID: [id number] Reading Location: [place] [address] us Arpan Rodgesr MD IMG CT PROCEDURES Fi nal Result * POCT glucose (04/20/2024 12:12 PM CDT) Glucose, POC 117 70 - 199 mg/dL Glucose comment 1 Use This Result [facility] Blood 04/20/2024 12:1 2 PM CDT 04/20/2024 12:12 PM CDT Sosa Andino MD LAB POCT ORDERABLES - DEVICE Fin al Result NADINE [address] [facility] Department [place] [address] * MRI Brain WO Contrast (04/20/2024 11:32 [...] collection. ??Normal size ventricles. BRAIN VOLUME: ?? Icad-nt-fxknedss cerebral volume loss. PITUITARY: ?? Unremarkable. VASCULATURE: [...] D: ??04/20/2024 12:44 PM T: Report ID: [id number] Reading Location: ??[id number] Procedure Note Angel Kyle MD - 04/20/2024 EXAM DESCRIPTION: MRI BRAIN WO CONTRAST REASON FOR STUDY: Hx of recent CVA, pt has increased weakness anddecreased mental status. TECHNIQUE: Multiplanar imaging includes non-contrasted T1, T2, FLAIR, and diffusion with ADC map sequences. Additional sequence(s) sensitive [employer]. Images stored on PACS. COMPARISON: Head CT [...] extra-axial fluid collection. Normalsize ventricles. BRAIN VOLUME: Heox-mt-krcpqgjx cerebral volume loss. PITUITARY: Unremarkable. VASCULATURE: Skull [...] Angel Kyle M.D. AG T: Report ID: [id number] Reading Location: [place] [address] Jammie Dickson PLANT TECHNICAL SPECIALIST IMG MRI PROCEDURES Marcelle l Result * [...] D: ??04/20/2024 9:03 AM T: Report ID: [id number] Reading Location: ??[id number] Procedure Note Johan Wilson MD - 04/20/2024 [...] Johan Wilson M.D., MM T: Report ID: [id number] Reading Location: [place] [address] us Jammie Dickson PLANT TECHNICAL SPECIALIST IMG XR PROCEDURES Final Result * POCT glucose (04/20/2024 8:09 AM CDT) Glucose, POC 133 70 - 199 mg/dL Glucose comment 1 Use This Result [facility] Blood 04/20/2024 8:09 AM CDT 04/20/2024 8:09 AM CDT Sosa Andino MD LAB POCT ORDERABLES - DEVICE Fin al Result [facility] [address] [place] [address] * eGFR (04/20/2024 4:24 AM CDT) [facility] eGFR 67 >=60 mL/min/1. 73 m2 [...] 04/20/2024 4:32 AM CDT us Jammie Dickson PLANT TECHNICAL SPECIALIST LAB BLOOD ORDERABLES Fi nal Result NADINE [address] [place] [address] * (ABNORMAL) Differential, auto (04/20/2024 4:24 AM CDT) [facility] Neutrophil abs 4.2 1.5 - 6.5 K/cumm Imm gran abs 0.0 0.0 - 0.1 K/cumm [facility] Lymphocyte abs 1.6 0.8 - 3.3 K/cumm [facility] Monocyte abs 0.7 0.2 - 0.8 K/cumm [facility] Eosinophil abs 0.7(H) 0.0 - 0.5 K/cumm [facility] Basophil abs 0.1 0.0 - 0.1 K/cumm [facility] Neutrophil pct 57.2 % [facility] Comment: Interpretive Data Percent cell count reference ranges are not reported, since discordance with absolute values may lead to misinterpretation of CBC data. Current Interpretive Data was last revised on 2017. Imm gran pct 0.3 % [facility] Comment: Interpretive Data Percent cell count reference ranges are not reported, since discordance with absolute values may lead to misinterpretation of CBC data. Current Interpretive Data was last revised on 2017. Lymphocyte pct 22.1 % [facility] Comment: Interpretive Data Percent cell count reference ranges are not reported, since discordance with absolute values may lead to misinterpretation of CBC data. Current Interpretive Data was last revised on 2017. Monocyte pct 9.5 % [facility] Comment: Interpretive Data Percent cell count reference ranges are not reported, since discordance with absolute values may lead to misinterpretation of CBC data. Current Interpretive Data was last revised on 2017. Eosinophil pct 9.5 % [facility] Comment: Interpretive Data Percent cell count reference ranges are not reported, since discordance with absolute values may lead to misinterpretation of CBC data. Current Interpretive Data was last revised on 2017. Basophil pct 1.4 % [facility] Comment: Interpretive Data Percent cell count reference ranges are not reported, since discordance with absolute values may lead to misinterpretation of CBC data. Current Interpretive Data was last revised on 2017. Blood 04/20/2024 4:24 AM CDT 04/20/2024 4:32 AM CDT us Jammie Dickson PLANT TECHNICAL SPECIALIST LAB BLOOD ORDERABLES Fi nal Result NADINE [address] [facility] Department [place] [address] * Magnesium (04/20/2024 4:24 AM CDT) Pathologist [facility] Magnesium 1.9 1.4 - 2.5 mg/dL Blood 04/20/2024 4:24 AM CDT 04/20/2024 4:32 AM CDT Jammie Dickson PLANT TECHNICAL SPECIALIST LAB BLOOD ORDERABLES Fi nal Result [facility] [address] [facility] Department [place] [address] * (ABNORMAL) Comprehensive metabolic panel (04/20/2024 4:24 AM CDT) [facility] Sodium 139 135 - 145 mmol/L Potassium, pl 4.0 3.3 - 4.9 mmol/L [facility] Chloride 102 97 - 110 mmol/L [facility] CO2 26 22 - 32 mmol/L [facility] Anion gap 11 2 - 15 mmol/L [facility] BUN 18 6 - 25 mg/dL [facility] Creatinine 0.95 0.60 - 1.10 mg/dL [facility] Glucose 115 70 - 199 mg/dL [facility] Comment: Interpretive Data Fasting glucose >/= 126 [...] 2022. Calcium 9.4 8.5 - 10.3 mg/dL [facility] Bilirubin, total 0.3 0.1 - 1.2 mg/dL [facility] Protein, pl 6.4(L) 6.5 - 8.5 g/dL [facility] Albumin 3.8 3.5 - 5.0 g/dL [facility] Alk phos 69 40 - 130 Units/L [facility] ALT 16 7 - 45 Units/L [facility] AST 27 10 - 45 Units/L [facility] Blood 04/20/2024 4:24 AM CDT 04/20/2024 4:32 AM CDT us Jammie Dickson PLANT TECHNICAL SPECIALIST LAB BLOOD ORDERABLES Fi nal Result [facility] [address] [facility] Department [place] [address] * (ABNORMAL) Lipid panel (04/20/2024 [...] revised on 2018. Triglycerides 85 <=149 mg/dL [facility] Comment: Interpretive Data Ages < or = [...] ORDERABLES Fi nal Result Performing Organization Address [facility] de Phone Number [address] [place] [address] * Thyroid Function [place] (04/20/2024 4:24 AM CDT) TSH 1.80 0.30 - 4.20 mcIUnit/mL Blood 04/20/2024 4:24 AM CDT 04/20/2024 4:32 AM CDT Jammie Dickson LAB BLOOD ORDERABLES Fi nal Result Performing Organization Address [facility] Co de Phone Number [address] [place] [address] * (ABNORMAL) Hemoglobin A1c (04/20/2024 4:24 AM CDT) Hgb A1C 6.2(H) 4.0 - 5.6 % Estimated Average Glucose 131 mg/dL [facility] Comment: The ADA recommends reporting an estimated Average Glucose (eAG) with all Hemoglobin A1c results using the equation derived from a study of 507 normal and diabetic adults. ??Minority populations were underrepresented and children were not included. ?? (Diabetes Care 31:0049-0021, 2008). ??The eAG is not equivalent to a fasting glucose. Blood 04/20/2024 4:24 AM CDT 04/20/2024 4:32 AM CDT us Jammie Dickson NP LAB BLOOD ORDERABLES Fi nal Result Performing Organization Address [facility] de Phone Number [address] [place] [address] * (ABNORMAL) Vitamin D 25 hydroxy (04/20/2024 4:24 AM CDT) [facility] Vitamin D 25-OH 13.0(L) 30.0 - 80.0 ng/mL Blood 04/20/2024 4:24 AM CDT 04/20/2024 4:32 AM CDT Jammie Dickson NP LAB BLOOD ORDERABLES Fi nal Result Performing Organization Address City/[facility] Co de Phone Number [address] [place] [address] * Vitamin B12 (04/20/2024 4:24 AM CDT) [facility] Vitamin B12 672 230 - 1,250 pg/mL Blood 04/20/2024 4:24 AM CDT 04/20/2024 4:32 AM CDT Jammie Dickson PLANT TECHNICAL SPECIALIST LAB BLOOD ORDERABLES Fi nal Result Performing Organization Address [facility] Co de Phone Number [address] [place] [address] * Ammonia (04/20/2024 4:24 AM CDT) Ammonia <10 <=50 mcmol/L Comment: Please note on 11/18/2023 the unit of measure changed from mcg/dL to mcmol/L. Current Interpretive Data was last revised on 2023. Blood 04/20/2024 4:24 AM CDT 04/20/2024 4:32 AM CDT us Jammie Dickson PLANT TECHNICAL SPECIALIST LAB BLOOD ORDERABLES Fi nal Result Performing Organization Address City/[facility]/ZIP Co de Phone Number NADINE [address] [address] * Lactate (04/20/2024 4:24 AM CDT) Pathologist [facility] Lactate 0.8 0.7 - 2.0 mmol/L Blood 04/20/2024 4:24 AM CDT 04/20/2024 4:32 AM CDT us Jammie Dickson PLANT TECHNICAL SPECIALIST LAB BLOOD ORDERABLES Fi nal Result Performing Organization Address [facility] Co de Phone Number HUGO[address] [place] [address] * Phosphorus (04/20/2024 4:24 AM CDT) Pathologist [facility] Phosphorus, pl 3.4 2.3 - 4.5 mg/dL Blood 04/20/2024 4:24 AM CDT 04/20/2024 4:32 AM CDT us Jammie Dickson PLANT TECHNICAL SPECIALIST LAB BLOOD ORDERABLES Fi nal Result Performing Organization Address City/[facility]/ZIP Co de Phone Number HUGO[address] [place] [address] * (ABNORMAL) CBC with auto differential (04/20/2024 4:24 AM CDT) WBC 7.4 3.8 - 9.9 K/cumm Hgb 9.2(L) 11.9 - 15.5 g/dL [facility] Hct 29.6(L) 35.6 - 45.5 % [facility] Plt 252 150 - 400 K/cumm [facility] MPV 10.5 9.1 - 12.3 fL [facility] RBC 3.43(L) 3.90 - 5.20 M/cumm [facility] MCV 86.3 81.3 - 96.4 fL [facility] MCH 26.8(L) 27.1 - 33.3 pg [facility] MCHC 31.1(L) 32.3 - 35.7 g/dL [facility] RDW CV 14.3 11.1 - 14.9 % [facility] RDW SD 44.2 35.7 - 48.1 fL [facility] NRBC abs 0.00 0.00 - 0.01 K/cumm [facility] Blood 04/20/2024 4:24 AM CDT 04/20/2024 4:32 AM CDT Jammie Dickson PLANT TECHNICAL SPECIALIST LAB BLOOD ORDERABLES Fi nal Result Performing Organization Address City/[facility]/ZIP Co de Phone Number NADINE [address] [facility] [place] [address] * Neuro CT Outside Reference (04/19/2024 5:20 [...] Coronary atherosclerosis of unspecified type of vessel, [place] or graft 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 [...] Call MD for each episode of hypoglycemia. [place] GLUTOSE-15 CONTAINS GLUCOSE 40% W/W (50% [...] 04/23/2024 11:28 PM CDT 2 g peg [id number] (ARTIFICAL TEARS) 1-0.2-0.2 % ophthalmic solution 1 [...] Keyonna Roberts RN)2056 (Given - Provider: Emerita Urbnia RN) 0852 (Given - Provider: Pete Tesfaye)2040 [...] Keyonna Roberts RN) 0852 (Given - Provider: ePte Tesfaye) 0829 (Given - Provider: Pete Tesfaye) [...] Call MD for each episode of hypoglycemia. [place] GLUTOSE-15 CONTAINS GLUCOSE 40% W/W (50% [...] Tesfaye)2326 (Given - Provider: Jossy Gonzalez) peg [id number] (ARTIFICAL TEARS) 1-0.2-0.2 % ophthalmic solution 1 [...] Call MD for each episode of hypoglycemia. [place] GLUTOSE-15 CONTAINS GLUCOSE 40% W/W (50% [...] 04/20/2024 documented in this encounter Care Teams Information Tech Relationship Specialty Start Date End Date William Craig MD PCP - General Internal Medicine 02/03/24 documented as of this encounter
== END 2024-06-25 10:02 ==
PROVIDERS: Emergency Provider Internal Medicine Critical Care Medicine; PCP Internal Medicine
DX: M25.552 Pain in left hip (principal); M79.602 Pain in left arm; M06.9 Rheumatoid arthritis, unspecified; I10 Essential (primary) hypertension; Z86.73 Personal history of transient ischemic attack (TIA), and cerebral infarction without residual deficits; Z79.82 Long term (current) use of aspirin; Z79.01 Long term (current) use of anticoagulants; Z87.891 Personal history of nicotine dependence; W19.XXXA Unspecified fall, initial encounter
CPT/HCPCS: 36415; 70450; 71045; 72125; 72170; 80053; 85025; 99284

== ENCOUNTER 2024-06-29 08:14 | Outpatient (CLI) | payer OTHER, SELFPAY ==
--- NOTE | ~2024-06-29 | CT_ITS ---
Clinical Indication: Anemia CT Scan of the Chest, Abdomen, and Pelvis with Contrast: Technique: Contiguous sections were acquired throughout the chest, abdomen, and pelvis after intraven ous administration of 100 cc of Omnipaque 350. Dose reduction technique was used on this scan by moshe rudolph automated exposure control and iterative reconstruction technique. The dose-length product (DL P) was 306.93 mGy-cm. Comparison: 12/30/2022 Findings: There is no evidence of any significant mediastinal, hilar or axillary lymphadenopathy. Extensive cor onary artery calcifications are present. No aortic aneurysm or dissection. No central pulmonary embol us. There is no evidence of pleural or pericardial effusion. There is biapical scarring. No suspicious pulmonary nodule or other consolidation seen. Focal area of honeycombing noted in the right lower lobe The liver, pancreas, gallbladder, adrenals and kidneys are within normal limits. Probable splenic inf arct noted. There are extensive atherosclerotic calcifications of the aorta and iliac vessels. No ly mphadenopathy. No bowel obstruction or bowel wall thickening. There is no evidence to suggest acute appendicitis. Urinary bladder is unremarkable. No pelvic mass seen. No ascites. Impression: No evidence for malignancy/metastatic disease. Probable splenic infarct. Reviewed, dictated and finalized at location . LASS FITTER Impression: No evidence for malignancy/metastatic disease. Probable splenic infarct.
== END 2024-06-29 08:15 | disposition home or self-care (01) ==
LOC: CHSIMG 08:16
PROVIDERS: PCP Internal Medicine; Visit Provider Internal Medicine
DX: D64.9 Anemia, unspecified (principal); C85.90 Non-Hodgkin lymphoma, unspecified, unspecified site
CPT/HCPCS: 71260; 74177; Q9967

== ENCOUNTER 2024-08-10 15:01 | Outpatient (CLI) | payer OTHER, SELFPAY ==
--- NOTE | ~2024-08-10 | XR_ITS ---
EXAMINATION: XR ankle LT min 3V DATE: 08/10/2024 15:21 INDICATION: Left foot pain and swelling. TECHNIQUE: 4 views of left ankle were obtained. COMPARISON: None. FINDINGS: Alignment is normal. No fracture. Joint spaces are normal. There is ankle soft tissue swell ing. IMPRESSION: 1. No fracture. Reviewed, dictated and finalized at location A. WIRER IMPRESSION: 1. No fracture.
--- NOTE | ~2024-08-10 | XR_ITS ---
EXAMINATION: XR foot LT min 3V DATE: 08/10/2024 15:21 INDICATION: Left foot pain and swelling. TECHNIQUE: 4 views of left foot were obtained. COMPARISON: None. FINDINGS: There is mild hallux valgus. No fracture. There is mild osteoarthritis of first metatarsoph alangeal joint and some of the interphalangeal joints. IMPRESSION: 1. Mild polyarticular osteoarthritis. 2. Mild hallux valgus. Reviewed, dictated and finalized at location A. NG CLOTH CUTTER
--- OUTSIDE RECORDS SUMMARY | 2024-08-10 15:53 | XMS_ITS | Referral Summary ---
Author Organization [facility] Address [address] [place] [address] Care Team Providers Care Help Desk Support Specialist Name Role Phone Edward Miranda MD Unavailable [phone] Source Comments [facility],non-owned Affiliates and Associated Physician Practices is amultiple site organization consisting of ambulatory clinics and hospital sitesin [place], [place], [place] and [place]. This disclosure is being madepursuant to the Care Everywhere program and may not contain all information available regarding this patient. Last updated 18.[facility] Allergies Active Allergy Reactions Criticality Noted Date Comments Lisinopril 10/27/2008 Cough Medications * Be aware that medications may not be up to date on this document. Alwaysverify current medications with the patient. Medication Sig Dispensed Refills Start Date End Date Status NASONEX 50 MCG/ACT SUSP [place] 1 [place] into each nostril daily. Prn in the [...] CDT Narrative Resulting Agency Comment [facility] [address] ??[facility]ly [facility] [phone] Edward Miranda MD LAB - CHEMISTRY ORD ERABLES [facility] ACCOUNT BILL from Last 3 Months or Most Recently Relevant to Health Maintenance Care Teams Help Desk Support Specialist Relationship Specialty Start Date End Date Edward Miranda MD Rheumatology 06/24/11
--- OUTSIDE RECORDS SUMMARY | 2024-08-10 15:53 | XMS_ITS | Encounter Summary ---
Author Organization [facility] Address [address] [place] [address] Care Team Providers Care Mold Mechanic Name Role Phone Edward Miranda MD Unavailable [phone] Encounter Details Date Type Department Care Team (Late st Contact Info) Description 09/23/2018 Lab Requisition [facility] Care Pathology Lab [address] [place] [address] Arpan Kelly MD [address] [place] [id number] Social History Tobacco Use Types Packs/Day [...] AM CDT) Case Report Flow Cytometry ?Case: [id number] ? Authorizing Provider: ??Arpan Kelly MD ?Collected: ? 09/23/2018 09:15 AM ? Pathologist: ? Lisa Chang MD ?? Received: ?09/23/2018 11:27 AM ? Specimen: ?Body Fluid , Right Breast Fluid ? 09/23/2018 1:58 PM [facility] PATH[facility] Final Diagnosis Right breast fluid, flow cytometric immunophenotypic analysis: - Insufficient hematopoietic cells for analysis. - See interpretation. 09/23/2018 1:58 PM [facility] Flow Cytometry Interpretation Preliminary characterization of the right breast fluid specimen demonstrates too few hematopoietic cells for flow cytometric analysis. A cytospin prepared from the flow cytometry specimen is reviewed for quality assurance specialist purposes. Flow cytometry is not performed. KR/NW 09/23/2018 1:58 PM [facility] Flow Cytometry Results Insufficient cells are available for analysis. 09/23/2018 1:58 PM [facility] Client Specimen ID # [id number] 09/23/2018 1:58 PM [facility] Disclaimer Test performed at [facility], [address] [place] [address], [address]. *The established laboratory minimum viability is 70%. [...] high complexity clinical testing. 09/23/2018 1:58 PM [facility] Embedded Images 03/14/201 9 1:58 PM CDT [facility] PATHOLOGY LAB Fluid BODY FLUID SPECIMEN / Unknown 09/23/2018 9:15 AM CDT 09/23/2018 11:27 AM CDT Arpan Kelly MD LAB - PATHOLOGY/CYTO LOGY ORDERABLES Performing Organization Address City/State/[facility] de Phone Number [facility] PATHOLOGY LAB [address] [phone] documented in this encounter Visit Diagnoses Not on filedocumented in this encounter Care Teams Mold Mechanic Relationship Specialty Start Date End Date Edward Miranda MD Rheumatology 06/24/11 documented as of this encounter
--- OUTSIDE RECORDS SUMMARY | 2024-08-10 15:53 | XMS_ITS | Data Portability ---
Author Organization [facility], [address] [facility] ([place]) Address [address] [place] [address] Care Team Providers Care Multi Purpose Machine Operator Name Role Phone ANANYA STOREY Referring Provider Assessment Encounter Date Assessment Date Assessment LastModified [...] Hypertension. Continue amlodipine, losartan, and metoprolol. aylin [email or web address] Not available 11/24/2023 23:44:35 Plan of Treatment [...] By Organization Details Last Modified Time 11/23/2023 [id number] smoking cessatio n counseling, greater than 3 [...] Address Organization Details Recorded Time Ischemic stroke 342884803 Active 2023 Omayra Gallardo MD [address] [place] [address], [phone], [facility] 4 12:16:56 Smoker 76021394 Active 2023 Omayra Gallardo MD [facility] [place] [address], [phone], [facility] 4 12:17:47 Labile essential hypertension 893414556 Active 2023 Omayra Gallardo MD [facility] [place] [address], [phone], [facility] 4 12:59:07 Familial hypercholester olemia 890213631 Active 2023 Omayra Gallardo MD [facility] [place] [address], [phone], [facility] 4 12:59:16 Type 2 diabetes mellitus 32968428 Active 2023 Omayra Gallardo MD [facility] [place] [address], [phone], [facility] 4 12:59:34 Problem Notes None recorded. Procedures Surgical History Date Name Laterality Status Provider Name and Address Organization Details Recorded Time Colonoscopy with biopsy completed Not Available Health Note 11/21/2023 17:59:05 Imaging Results Imaging Date Name Status LastModified by [facility] Details LastModified Time 12/02/2023 CT, angiogram, head, [...] Not Available Vitals Date Recorded Body weight Provider Name an d Address Organization Details Last Updated DateTime 11/23/2023 98333.13 g [facility] 11/23/2023 11:27:31 Date Recorded Heart rate Provider Name an d Address Organization Details Last Updated DateTime 11/23/2023 65 /min [facility] 11/23/2023 11:27:44 Date Recorded Oxygen saturation Oxygen saturation in Arterial blood by Pulse oximetry Provider Name and Address Organization Details Last Updated DateTime 11/23/2023 97 % 97 % [facility] 11/23/2023 11:27:46 Date Recorded Systolic blood pressure Diastolic blood pressure Provider Name and Address Organization Details Last Updated DateTime 11/23/2023 120 mm[Hg] 65 mm[Hg] Lalita Mars [place] [facility] 11/23/2023 11:27:40 Social History Question Answer Notes LastModified [...] Do You Have A Medical Power Of Oil Lease Operator? Yes [email or web address] Information not available 11/21/2023 [...] Diagnosis/Indication Diagnosis SNOMED-CT Code Diagnosis ICD10 Code Diagnosis Note [id number] Omayra Gallardo MD [address] [facility] ([place]) [address] [place] [phone] 11/23/2023 11:02:53 11/25/2023 10:43:46 Ischemic stroke 068501277 I63.9 Smoker 06363618 F17.200 Labile ess ential hypertension 265661458 I10 Familial hypercholesterolemia 280673862 E78.01 Type 2 essence betes mellitus 79661569 E11.9 Health Concerns Section Related Observation LastModified by Organization Detai ls LastModified Time None Recorded Concern Status LastModified by Organization Details LastModified Time None Recorded Advance Directives Directive N: Payers Encounter Date Sequence Insurance Name Policy Number Policy Morgan Covered Member ID Morgan Member ID Guarantor Name 11/23/2023 1 [facility] ([facility] Senia Ruth [id number] Senia Ruth Notes Date Note Type Note Provider Name and Address Organization Details Recorded Time 11/23/2023 text/html The patient is a 62-year-old right-handed female who presents today for evaluation after a stroke. I talked her to primary care physician on Thursday. The patient states that she was in [place] for several months as well this winter. [...] scheduled for a CTA tomorrow and a monitor tech placement on . There are apparently plans [...] A1c was 6.2.aylin Gallardo MD [address] [place] [address], [phone], [facility] 11/24/2023 23:44:51 OBGyn Episode No OBEpisode recorded.
--- OUTSIDE RECORDS SUMMARY | 2024-08-10 15:53 | XMS_ITS | Referral Summary ---
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 1 to 4 times per year [...] any time in the past 12 m [facility], were you homeless or living in a assisted (including now)? No 04/20/2024 Personal Safety Answer Date Recorded Have you ever been in or are you currently in a harmful physical or emotional relationship or is someone making you feel afraid or unsafe? 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 Department [place] [address] * (ABNORMAL) Hemoglobin A1c (04/20/2024 4:24 AM CDT) Hgb A1C 6.2(H) 4.0 - 5.6 % Estimated Average Glucose 131 mg/dL NADINE [place] Comment: The ADA recommends reporting an estimated Average Glucose (eAG) with all Hemoglobin A1c results using the equation derived from a study of 507 normal and diabetic adults. ??Minority populations were underrepresented and children were not included. ?? (Diabetes Care 31:4836-1152, 2008). ??The eAG is not equivalent to a fasting glucose. Blood 04/20/2024 4:24 AM CDT 04/20/2024 4:32 AM CDT us Jammie Dickson VIDEO GAME DESIGNER LAB BLOOD ORDERABLES Fi nal Result NADINE [address] [facility] Department [place] [address] * (ABNORMAL) Lipid panel (04/20/2024 [...] on 2024. Non-HDL Cholesterol 65 mg/dL NADINE CANCHOLA Comment: Interpretive Data Ages [...] revised on 2018. Chol/HDL ratio 3 NADINE [place]CHOLA Blood 04/20/2024 4:24 AM CDT 04/20/2024 4:32 AM CDT Jammie Dickson VIDEO GAME DESIGNER LAB BLOOD ORDERABLES nal Result NADINE [address] [facility] Department [place] [address] from Last 3 Months or Most Recently Relevant to Health Maintenance Insurance [facility] Advance Directives For more information, please contact: [phone] Documents on File Type Date Recorded Patient Director Index Expl anation ADVANCE DIRECTIVE 05/04/2024 12:20 PM [facility] er of Manager [employer] * Full Code (Latest Code Status on File) Date Activated Date Inactivated Comments 04/20/2024 4:57 AM 05/03/2024 7:33 PM Care Teams Canvas Worker Apprentice Relationship Specialty Start Date End Date William Craig MD PCP - General Internal Medicine 02/03/24
--- OUTSIDE RECORDS SUMMARY | 2024-08-10 15:53 | XMS_ITS | Clinical Summary ---
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 1 to 4 times per year 04/20/2024 Do you belong to any clubs o r organizations such as mu-ism groups, unions, fraternal or athletic groups, or [...] on file Legal Sex Female 12:40 AM LOANS OFFICER Gender Identity Not on file Sexual Orientation [...] 07/07/2023, 03/18/2023 Medical Devices Implanted Type Area Acid Etch Operator Device Identifier Shelf Expiration Date Model / [...] Valle DO LAB BLOOD ORDERABLES nal Result Performing Organization Address [facility] de Phone Number [address] [employer] [place], [place] [id number] * (ABNORMAL) Hemoglobin A1c (04/20/2024 4:24 AM CDT) [facility] Hgb A1C 6.2(H) 4.0 - 5.6 % Estimated Average Glucose 131 mg/dL NADINE Comment: The ADA recommends reporting an estimated Average Glucose (eAG) with all Hemoglobin A1c results using the equation derived from a study of 507 normal and diabetic adults. ??Minority populations were underrepresented and children were not included. ?? (Diabetes Care 31:1638-8422, 2008). ??The eAG is not equivalent to a fasting glucose. Blood 04/20/2024 4:24 AM CDT 04/20/2024 4:32 AM CDT Jammie Dickson SUPERVISOR SHEARING LAB BLOOD ORDERABLES nal Result Performing Organization Address [facility] de Phone Number [address] [place] [address] * (ABNORMAL) Lipid panel (04/20/2024 4:24 AM CDT) [facility] Cholesterol 103 30 - 199 mg/dL Comment: [...] on 2018. Triglycerides 85 <=149 mg/dL NADINE CANCHOLA Comment: Interpretive Data Ages [...] on 2018. HDL 38(L) >=40 mg/dL NADINE [place]A Comment: Interpretive Data Ages [...] 04/20/2024 4:32 AM CDT us Jammie Dickson SUPERVISOR SHEARING LAB BLOOD ORDERABLES Fi nal Result NADINE [address] [facility] Department [place] [address] from Last 3 Months or Most Recently Relevant to Health Maintenance Insurance [facility] CMR [facility] CMR Advance Directives For more information, please contact: [phone] Documents on File Type Date Recorded Patient Flooring Helper Expl anation ADVANCE DIRECTIVE 05/04/2024 12:[address] [facility] er of [employer] * Full Code (Latest Code Status on File) Date Activated Date Inactivated Comments 04/20/2024 4:57 AM 05/03/2024 7:33 PM Care Teams Concrete Plant Laborer Relationship Specialty Start Date End Date William Craig MD PCP - General Internal Medicine 02/03/24
--- OUTSIDE RECORDS SUMMARY | 2024-08-10 15:53 | XMS_ITS | Clinical Summary ---
Author Organization [facility] Address [facility] [facility] [place] [address] [place] [address] Care Team Providers Care Instrumentation Designer Name Role Phone William Craig MD Primary Care Provider [phone] Judie Carnes MD Unavailable Allergies Active Allergy [...] Diagnosed Date Hx of completed stroke 03/09/2024 Family History Medical History Relation Comments Diabetes [...] AM CDT Appointment [facility] [address] [place] [address] Judie Carnes MD [address] [place], [place] [phone] 01/20/2025 10:30 AM CDT Office Visit [facility] [address] [place] [phone] Judie Carnes MD [address] [place], [place] [phone] Health Maintenance Due Date Last Done Comments Colorectal Cancer Screening Colonoscopy (10 Years) 1960 Annual Physical 12/25/1963 Pneumococcal Vaccine: Pediatrics (0 to 5 Years) and At-Risk Patients (6 to 64 Years) (1 of 2 - PCV) 1966 Hepatitis C 1978 DTaP, Tdap and Td Vaccines (1 - Tdap) 12/25/1979 Cervical Cancer Screening Pap with HPV Testing (Age 30 to 64) Every 5 Years 1990 Mammogram Screening 2000 RSV Immunization or 60+ Years (1 - Risk 60-74 years 1-dose series) 2020 COVID-19 Vaccine ( season) 2024 04/15/2022, 06/03/2021, 10/03/2020, Additional history exists Influenza Adult (#1) 2024 Cervical Cancer Screening Pap Smear (Age 30 to 64) Every 3 Years 12/31/2026 01/01/2024 Cervical Cancer Screening with HPV 12/31/2026 Zoster Vaccines Completed 07/07/2023, 03/18/2023 Meningococcal B Vaccine Aged Out No l onger eligible based on patient's age to complete this topic Meningococcal Vaccine Aged Out No juan nba eligible based on patient's age to complete this topic RSV Immunizations Under 20 Months Aged Out No longer eligible based on patient's age to complete this topic Insurance [facility] Care Teams Instrumentation Designer Relationship Specialty Start Date End Date William Craig MD [address] [place] [address] PCP - General INTERNAL MEDICINE 01/15/24 Judie Carnes MD [address] [place] [address] [place] Folding Machine Operator CARDIOVASCULAR DISEASE 01/15/24
--- OUTSIDE RECORDS SUMMARY | 2024-08-10 15:53 | XMS_ITS | Clinical Summary ---
Author Organization [facility] Address [address] [place] [address] Care Team Providers Care Library Media Technician Name Role Phone Edward Miranda MD Unavailable [phone] Source Comments [facility],non-owned Affiliates and Associated Physician Practices is amultiple site organization consisting of ambulatory clinics and hospital sitesin [place], [place], [place] and [place]. This disclosure is being madepursuant to the Care Everywhere program and may not contain all information available regarding this patient. Last updated 18.[facility] Allergies Active Allergy Reactions Criticality Noted Date Comments Lisinopril 10/27/2008 Cough Medications * Be aware that medications may not be up to date on this document. Alwaysverify current medications with the patient. Medication Sig Dispensed Refills Start Date End Date Status NASONEX 50 MCG/ACT SUSP [place] 1 [place] into each nostril daily. Prn in the [...] 12/20/1978 DTAP/TDAP/TD VACCINES (1 - Tdap) 12/25/1979 PNEUMOCOCCAL VACCINE 50+ (1 of 1 - PCV) 2010 ZOSTER VACCINE (1 of 2) 2010 LIPID TESTING 11/07/2015 11/06/2010 COVID-19 VACCINE (1 - 2023-2 5 season) 2024 INFLUENZA VACCINE (#1) 2024 DEPRESSION SCREENING 07/13/2024 Respiratory Syncytial Virus (RSV) Vaccine Pt: or [...] patient's age to complete this topic MENINGOCOCCAL (Group B) VACCINE Aged Out No longer eligible based on [...] CDT Narrative Resulting Agency Comment [facility] [address] ??[facility] [phone] Edward Miranda MD LAB - CHEMISTRY ORD ERABLES Performing Organization Address City/State/[facility] Co de Phone Number [facility] ACCOUNT BILL from Last 3 Months or Most Recently Relevant to Health Maintenance Care Teams Library Media Technician Relationship Specialty Start Date End Date Edward Miranda MD Rheumatology 06/24/11
--- OUTSIDE RECORDS SUMMARY | 2024-08-10 15:53 | XMS_ITS | Patient Health Summary ---
Author Organization [facility] Address [address] [place] [address] Care Team Providers Care Securities Supervisor Name Role Phone Edward Miranda MD Unavailable [phone] Note from [facility],non-owned Affiliates and Associated Physician Practices is amultiple site organization consisting of ambulatory clinics and hospital sitesin [place], [place], [place] and [place]. This disclosure is being madepursuant to the Care Everywhere program and may not contain all information available regarding this patient. Last updated 18.[facility] Allergies * Lisinopril(Cough) Medications * Be aware that medications may not be up to date on this document. Alwaysverify current medications with the patient. * NASONEX 50 MCG/ACT SUSP [place] 1 [place] [...] SEDIMENTATION RATE(Performed 04/13/2012) Performed for Rheumatoid arthritis ([facility]) * C-REACTIVE PROTEIN(Performed 04/13/2012) Performed for Rheumatoid arthritis ([facility]) * COMPREHENSIVE METABOLIC PANEL(Performed 04/13/2012) Performed for Rheumatoid arthritis ([facility]) * CBC W AUTO DIFFERENTIAL(Performed 04/13/2012) Performed for Rheumatoid arthritis ([facility]) * LAB RESULTS ORDER(Performed 01/02/2012) * ERYTHROCYTE SEDIMENTATION RATE(Performed 01/01/2012) * COMPREHENSIVE METABOLIC PANEL(Performed 01/01/2012) * CBC W AUTO DIFFERENTIAL(Performed 01/01/2012) * ERYTHROCYTE SEDIMENTATION RATE(Performed 10/29/2011) Performed for Rheumatoid arthritis ([facility]) * COMPREHENSIVE METABOLIC PANEL(Performed 10/29/2011) Performed for Rheumatoid arthritis ([facility]) * CBC W AUTO DIFFERENTIAL(Performed 10/29/2011) Performed for Rheumatoid arthritis ([facility]) * ERYTHROCYTE SEDIMENTATION RATE(Performed 09/08/2011) * COMPREHENSIVE METABOLIC PANEL(Performed 09/08/2011) * CBC W AUTO DIFFERENTIAL(Performed 09/08/2011) * ERYTHROCYTE SEDIMENTATION RATE(Performed 06/25/2011) Performed for Rheumatoid arthritis ([facility]) * CBC W AUTO DIFFERENTIAL(Performed 06/25/2011) Performed for Rheumatoid arthritis ([facility]) * C-REACTIVE PROTEIN(Performed 06/25/2011) Performed for Rheumatoid arthritis ([facility]) * COMPREHENSIVE METABOLIC PANEL(Performed 06/25/2011) Performed for Rheumatoid arthritis ([facility]) * ERYTHROCYTE SEDIMENTATION RATE(Performed 05/07/2011) * COMPREHENSIVE METABOLIC PANEL(Performed 05/07/2011) * CBC W AUTO DIFFERENTIAL(Performed 05/07/2011) * ERYTHROCYTE SEDIMENTATION RATE(Performed 02/26/2011) Performed for Rheumatoid arthritis ([facility]) * C-REACTIVE PROTEIN(Performed 02/26/2011) Performed for Rheumatoid arthritis (HCC) * COMPREHENSIVE METABOLIC PANEL(Performed 02/26/2011) Performed for Rheumatoid arthritis ([facility]) * CBC W AUTO DIFFERENTIAL(Performed 02/26/2011) Performed for Rheumatoid arthritis ([facility]) * ERYTHROCYTE SEDIMENTATION RATE(Performed 01/02/2011) * CBC W AUTO DIFFERENTIAL(Performed 01/02/2011) * COMPREHENSIVE METABOLIC PANEL(Performed 01/02/2011) * C-REACTIVE PROTEIN(Performed 11/06/2010) Performed for Rheumatoid arthritis ([facility]) * VITAMIN D 25-HYDROXY(Performed 11/06/2010) Performed for Vitamin D deficiency * ERYTHROCYTE SEDIMENTATION RATE(Performed 11/06/2010) Performed for Rheumatoid arthritis ([facility]) * LIPID PROFILE W LDL/HDL RATIO(Performed 11/06/2010) Performed for Screening cholesterol level * COMPREHENSIVE METABOLIC PANEL(Performed 11/06/2010) Performed for Rheumatoid arthritis ([facility]) * CBC W AUTO DIFFERENTIAL(Performed 11/06/2010) Performed for Rheumatoid arthritis ([facility]) * COMPREHENSIVE METABOLIC PANEL(Performed 08/30/2010) Performed for Rheumatoid arthritis ([facility]) * CBC W AUTO DIFFERENTIAL(Performed 08/30/2010) Performed for Rheumatoid arthritis ([facility]) * ERYTHROCYTE SEDIMENTATION RATE(Performed 06/19/2010) Performed for Rheumatoid arthritis ([facility]) * C-REACTIVE PROTEIN(Performed 06/19/2010) Performed for Rheumatoid arthritis ([facility]) * COMPREHENSIVE METABOLIC PANEL(Performed 06/19/2010) Performed for Rheumatoid arthritis ([facility]) * CBC W AUTO DIFFERENTIAL(Performed 06/19/2010) Performed for Rheumatoid arthritis ([facility]) * ERYTHROCYTE SEDIMENTATION RATE(Performed 02/20/2010) Performed for Rheumatoid Arthritis ([facility]) * COMPREHENSIVE METABOLIC PANEL(Performed 02/20/2010) Performed for Rheumatoid Arthritis ([facility]) * C-REACTIVE PROTEIN(Performed 02/20/2010) Performed for Rheumatoid Arthritis ([facility]) * CBC W AUTO DIFFERENTIAL(Performed 02/20/2010) Performed for Rheumatoid Arthritis ([facility]) * LAB RESULTS ORDER(Performed 12/28/2009) * COMPREHENSIVE METABOLIC PANEL(Performed 12/27/2009) * CBC W AUTO DIFFERENTIAL(Performed 12/27/2009) * CBC W AUTO DIFFERENTIAL(Performed 10/24/2009) * ERYTHROCYTE SEDIMENTATION RATE(Performed 10/24/2009) Performed for Rheumatoid Arthritis ([facility]) * C-REACTIVE PROTEIN(Performed 10/24/2009) Performed for Rheumatoid Arthritis ([facility]) * COMPREHENSIVE METABOLIC PANEL(Performed 10/24/2009) Performed for [...] AM CDT) Case Report Flow Cytometry ?Case: [id number] ? Authorizing Provider: ??Arpan Kelly MD ?Collected: ? 09/23/2018 09:15 AM ? Pathologist: ? Lisa Chang MD ?? Received: ?09/23/2018 11:27 AM ? Specimen: ?Body Fluid , Right Breast Fluid ? 09/23/2018 1:58 PM [facility] Final Diagnosis Right breast fluid, flow cytometric immunophenotypic analysis: - Insufficient hematopoietic cells for analysis. - See interpretation. 09/23/2018 1:58 PM [facility] Flow Cytometry Interpretation Preliminary characterization of the right breast fluid specimen demonstrates too few hematopoietic cells for flow cytometric analysis. A cytospin prepared from the flow cytometry specimen is reviewed for clinical quality assurance specialist purposes. Flow cytometry is not performed. KR/NW 09/23/2018 1:58 PM [facility] Flow Cytometry Results Insufficient cells are available for analysis. 09/23/2018 1:58 PM [facility] Client Specimen ID # [id number] 09/23/2018 1:58 PM [facility] Disclaimer Test performed at [facility], [address] [place] [address], [id number]. *The established laboratory minimum viability is 70%. [...] 09/23/2018 1:58 PM CDT [facility] Embedded Images 1:58 PM CDT [facility] Fluid BODY FLUID SPECIMEN / Unknown 09/23/2018 9:15 AM CDT 09/23/2018 11:27 AM CDT Arpan Kelly MD LAB - PATHOLOGY/CYTO LOGY ORDERABLES Performing Organization Address City/[facility]/ZIP Co de Phone Number [facility] [address] [phone] * C-REACTIVE PROTEIN (04/13/2012 3:56 PM CDT) Only the most recent of11 resultswithin the time period is included. C-Reactive Protein 2.9 0.0 - 4.9 mg/L [facility] ACCOUNT BILL Blood specimen (specimen) BLOOD SPECIMEN / Unknown 04/13/2012 3:56 PM CDT 04/13/2012 9:13 PM CDT Narrative Resulting Agency Comment [facility] ??[facility] [phone] Edward Miranda MD LAB - CHEMISTRY ORD ERABLES [facility] ACCOUNT BILL * SED RATE WESTERGREN (04/13/2012 3:56 PM CDT) Only the most recent of17 resultswithin the time period is included. Erythrocyte Sedimentation Rate Westergren 10 0 - 40 mm/hr [facility] ACCOUNT BILL Blood specimen (specimen) BLOOD SPECIMEN / Unknown 04/13/2012 3:56 PM CDT 04/13/2012 9:13 PM CDT Narrative Resulting Agency Comment [facility] [address] ??[facility] [phone] Edward Miranda MD LAB - HEMATOLOGY OR [...] CDT Narrative Resulting Agency Comment [facility] [address] ??[facility] [phone] Edward Miranda MD LAB - HEMATOLOGY OR [...] 9:13 PM CDT Narrative Resulting Agency Comment [facility] [id number] [facility] ??[facility] [phone] Edward Miranda MD LAB - CHEMISTRY ORD ERABLES Performing Organization Address City/[facility]/ZIP Co de Phone Number [facility] ACCOUNT BILL [...] 5:53 PM CDT Narrative Resulting Agency Comment [facility] [id number] [facility] ??[facility] [phone] Edward Miranda MD LAB - CHEMISTRY ORD [...] Comment [facility] [address] ??[place] [phone] Edward Miranda MD LAB - CHEMISTRY ORD ERABLES [facility] ACCOUNT BILL * HEMOGLOBIN A1C (06/28/2008 10:34 AM SWEATBAND MAKER) Hemoglobin A1c 6.2 <7.0 % [facility] ACCOUNT BILL Comment: ?Diabetic Adult ?<7.0 ?Healthy Adult ?4.8 - 5.9 ?(DCCT/NGSP) ?[place] Diabetes Association's Summary of Glycemic ?Recommendations for Adults with Diabetes: ?Hemoglobin A1c <7.0%. More stringent glycemic goals ?(A1c <6.0%) may further reduce complications at the ?cost of increased risk of hypoglycemia. 06/28/2008 10:3 4 AM SWEATBAND MAKER 06/28/2008 5:56 PM SWEATBAND MAKER Narrative Resulting Agency Comment [facility] [address] ??[facility] [phone] Edward Miranda MD LAB - CHEMISTRY ORD ELIO [facility] ACCOUNT BILL Care Teams Securities Supervisor Relationship Specialty Start Date End Date Edward Miranda MD Rheumatology 06/24/11
== END 2024-08-10 15:02 | disposition home or self-care (01) ==
PROVIDERS: PCP Internal Medicine; Visit Provider Internal Medicine
DX: M79.672 Pain in left foot (principal); M19.072 Primary osteoarthritis, left ankle and foot; M20.12 Hallux valgus (acquired), left foot
CPT/HCPCS: 73610; 73630

== ENCOUNTER 2024-09-20 08:57 | Outpatient (CLI) | payer OTHER, SELFPAY ==
[2024-09-20 09:26] LABS: Hematocrit 31.2 % (35.0-49.0); Hemoglobin 9.6 g/dL (12.0-15.0); Mean Corpuscular HGB Conc 30.8 g/dL (32-36); Mean Corpuscular Hemoglobin 26.2 pg (27.0-31.0); Mean Corpuscular Volume 85.2 fL (78.0-102.0); Mean Platelet Volume 9.6 fl (9.2-11.8); Platelet Count Result 287 K/mm3 (150-420); Red Blood Count 3.66 M/mm3 (4.20-5.40); Red Cell Distribution Width 16.4 % (11.6-14.4); White Blood Count 5.9 K/mm3 (4.8-10.8)
--- OUTSIDE RECORDS SUMMARY | 2024-09-20 09:35 | XMS_ITS | Patient Health Summary ---
Author Organization [facility] Address [address] [place] [address] Care Team Providers Care Apartment Locator Name Role Phone Edward Miranda MD Unavailable [phone] Note from [facility],non-owned Affiliates and Associated Physician Practices is amultiple site organization consisting of ambulatory clinics and hospital sitesin [place], [place], [place] and [place]. This disclosure is being madepursuant to the Care Everywhere program and may not contain all information available regarding this patient. Last updated 18.[facility] Allergies * Lisinopril(Cough) Medications * Be aware that medications may not be up to date on this document. Alwaysverify current medications with the patient. * NASONEX 50 MCG/ACT SUSP [place] 1 [place] into each nostril daily. Prn in the [...] 04/13/2012) Performed for Rheumatoid arthritis ([facility]) * C-REACTIVE PROTEIN(Performed 04/13/2012) Performed for Rheumatoid arthritis ([facility]) * COMPREHENSIVE METABOLIC PANEL(Performed 04/13/2012) Performed for Rheumatoid arthritis ([facility]) * CBC W AUTO DIFFERENTIAL(Performed 04/13/2012) Performed for Rheumatoid arthritis ([facility]) * LAB RESULTS ORDER(Performed 01/02/2012) * ERYTHROCYTE SEDIMENTATION RATE(Performed 01/01/2012) * COMPREHENSIVE METABOLIC PANEL(Performed 01/01/2012) * CBC W AUTO DIFFERENTIAL(Performed 01/01/2012) * ERYTHROCYTE SEDIMENTATION RATE(Performed 10/29/2011) Performed for Rheumatoid arthritis ([facility]) * COMPREHENSIVE METABOLIC PANEL(Performed 10/29/2011) Performed for Rheumatoid arthritis ([facility]) * CBC W AUTO DIFFERENTIAL(Performed 10/29/2011) Performed for Rheumatoid arthritis ([facility]) * ERYTHROCYTE SEDIMENTATION RATE(Performed 09/08/2011) * COMPREHENSIVE METABOLIC PANEL(Performed 09/08/2011) * CBC W AUTO DIFFERENTIAL(Performed 09/08/2011) * ERYTHROCYTE SEDIMENTATION RATE(Performed 06/25/2011) Performed for Rheumatoid arthritis ([facility]) * CBC W AUTO DIFFERENTIAL(Performed 06/25/2011) Performed for Rheumatoid arthritis ([facility]) * C-REACTIVE PROTEIN(Performed 06/25/2011) Performed for Rheumatoid arthritis ([facility]) * COMPREHENSIVE METABOLIC PANEL(Performed 06/25/2011) Performed for Rheumatoid arthritis ([facility]) * ERYTHROCYTE SEDIMENTATION RATE(Performed 05/07/2011) * COMPREHENSIVE METABOLIC PANEL(Performed 05/07/2011) * CBC W AUTO DIFFERENTIAL(Performed 05/07/2011) * ERYTHROCYTE SEDIMENTATION RATE(Performed 02/26/2011) Performed for Rheumatoid arthritis ([facility]) * C-REACTIVE PROTEIN(Performed 02/26/2011) Performed for Rheumatoid arthritis (HCC) * COMPREHENSIVE METABOLIC PANEL(Performed 02/26/2011) Performed for Rheumatoid arthritis ([facility]) * CBC W AUTO DIFFERENTIAL(Performed 02/26/2011) Performed for Rheumatoid arthritis ([facility]) * ERYTHROCYTE SEDIMENTATION RATE(Performed 01/02/2011) * CBC W AUTO DIFFERENTIAL(Performed 01/02/2011) * COMPREHENSIVE METABOLIC PANEL(Performed 01/02/2011) * C-REACTIVE PROTEIN(Performed 11/06/2010) Performed for Rheumatoid arthritis ([facility]) * VITAMIN D 25-HYDROXY(Performed 11/06/2010) Performed for Vitamin D deficiency * ERYTHROCYTE SEDIMENTATION RATE(Performed 11/06/2010) Performed for Rheumatoid arthritis ([facility]) * LIPID PROFILE W LDL/HDL RATIO(Performed 11/06/2010) Performed for Screening cholesterol level * COMPREHENSIVE METABOLIC PANEL(Performed 11/06/2010) Performed for Rheumatoid arthritis ([facility]) * CBC W AUTO DIFFERENTIAL(Performed 11/06/2010) Performed for Rheumatoid arthritis ([facility]) * COMPREHENSIVE METABOLIC PANEL(Performed 08/30/2010) Performed for Rheumatoid arthritis ([facility]) * CBC W AUTO DIFFERENTIAL(Performed 08/30/2010) Performed for Rheumatoid arthritis ([facility]) * ERYTHROCYTE SEDIMENTATION RATE(Performed 06/19/2010) Performed for Rheumatoid arthritis ([facility]) * C-REACTIVE PROTEIN(Performed 06/19/2010) Performed for Rheumatoid arthritis ([facility]) * COMPREHENSIVE METABOLIC PANEL(Performed 06/19/2010) Performed for Rheumatoid arthritis ([facility]) * CBC W AUTO DIFFERENTIAL(Performed 06/19/2010) Performed for Rheumatoid arthritis ([facility]) * ERYTHROCYTE SEDIMENTATION RATE(Performed 02/20/2010) Performed for Rheumatoid Arthritis ([facility]) * COMPREHENSIVE METABOLIC PANEL(Performed 02/20/2010) Performed for Rheumatoid Arthritis ([facility]) * C-REACTIVE PROTEIN(Performed 02/20/2010) Performed for Rheumatoid Arthritis ([facility]) * CBC W AUTO DIFFERENTIAL(Performed 02/20/2010) Performed for Rheumatoid Arthritis ([facility]) * LAB RESULTS ORDER(Performed 12/28/2009) * COMPREHENSIVE METABOLIC PANEL(Performed 12/27/2009) * CBC W AUTO DIFFERENTIAL(Performed 12/27/2009) * CBC W AUTO DIFFERENTIAL(Performed 10/24/2009) * ERYTHROCYTE SEDIMENTATION RATE(Performed 10/24/2009) Performed for Rheumatoid Arthritis ([facility]) * C-REACTIVE PROTEIN(Performed 10/24/2009) Performed for Rheumatoid Arthritis ([facility]) * COMPREHENSIVE METABOLIC PANEL(Performed 10/24/2009) [...] 9:15 AM CDT) Case Report Flow Cytometry Case: [id number] Authorizing Provider: Arpan Kelly MD Collected: 09/23/2018 09:15 AM Pathologist: Lisa Chang MD Received: 09/23/2018 11:27 AM Specimen: Body Fluid , Right Breast Fluid 09/23/2018 1:58 PM T [facility] Final Diagnosis Right breast fluid, flow cytometric immunophenotypic analysis: - Insufficient hematopoietic cells for analysis. - See interpretation. 09/23/2018 1:58 PM [facility] Flow Cytometry Interpretation Preliminary characterization of the right breast fluid specimen demonstrates too few hematopoietic cells for flow cytometric analysis. A cytospin prepared from the flow cytometry specimen is reviewed for quality controller purposes. Flow cytometry is not performed. KR/NW 09/23/2018 1:58 PM [facility] Flow Cytometry Results Insufficient cells are available for analysis. 09/23/2018 1:58 PM [facility] Client Specimen ID # [id number] 09/23/2018 1:58 PM [facility] Disclaimer Test performed at [facility], [address] [place] [address], [address]. *The established laboratory minimum viability is 70%. [...] high complexity clinical testing. 09/23/2018 1:58 PM T [facility] Embedded Images 1:58 PM [facility] Fluid BODY FLUID SPECIMEN / Unknown 09/23/2018 9:15 AM CDT 09/23/2018 11:27 AM CDT Arpan Kelly MD LAB - PATHOLOGY/CYTO LOGY ORDERABLES [facility] [address] [place], [place] [address] [phone] * C-REACTIVE PROTEIN (04/13/2012 3:56 PM CDT) Only the most recent of11 resultswithin the time period is included. C-Reactive Protein 2.9 0.0 - 4.9 mg/L [facility] ACCOUNT BILL Blood specimen (specimen) BLOOD SPECIMEN / Unknown 04/13/2012 3:56 PM CDT 04/13/2012 9:13 PM CDT Narrative Resulting Agency Comment [facility] [address] [phone] Edward Miranda MD LAB - CHEMISTRY ORD ERABLES Performing Organization Address City/[facility] Co de Phone Number [facility] ACCOUNT BILL * SED RATE WESTERGREN (04/13/2012 3:56 PM CDT) Only the most recent of17 resultswithin the time period is included. Erythrocyte Sedimentation Rate Westergren 10 0 - 40 mm/hr [facility] ACCOUNT BILL Blood specimen (specimen) BLOOD SPECIMEN / Unknown 04/13/2012 3:56 PM CDT 04/13/2012 9:13 PM CDT Narrative Resulting Agency [facility] [address] [facility] [phone] Edward Miranda MD LAB - HEMATOLOGY OR [...] PM CDT Narrative Resulting Agency Comment [facility] [place] [phone] [facility] [phone] Edward Miranda MD LAB - HEMATOLOGY OR [...] PM CDT Narrative Resulting Agency Comment [facility] [address] [phone] Edward Miranda MD LAB - CHEMISTRY ORD ERABLES [facility] ACCOUNT BILL * LAB RESULTS ORDER [...] 5:53 PM CDT Narrative Resulting Agency Comment [address] [phone] Edward Miranda MD LAB - CHEMISTRY ORD ERABLES Performing Organization Address City/[facility]/ZIP Co de Phone Number [facility] ACCOUNT BILL * VITAMIN D 25-HYDROXY (11/06/2010 10:13 AM CDT) Vitamin D, 25 Hydroxy 34.6 32.0 - 100.0 ng/mL [facility] ACCOUNT BILL Comment: Recent studies consider the lower limit of 32.0 ng/mL to be a threshold for optimal health. Ag CASTRO. J Nutr. 2004;135(2):317-22. BLOOD SPECIMEN / Unknown 11/06/2010 10:13 AM CDT 11/06/2010 5:53 PM CDT Narrative Resulting Agency Comment [place] [phone] [facility] [phone] Edward Miranda MD LAB - CHEMISTRY ORD ERABLES [facility] ACCOUNT BILL * HEMOGLOBIN A1C (06/28/2008 10:34 AM FABRIC DESIGNER) Hemoglobin A1c 6.2 <7.0 % [facility] ACCOUNT BILL Comment: Diabetic Adult <7.0 Healthy Adult 4.8 - 5.9 (DCCT/NGSP) [place] Diabetes Association's Summary of Glycemic Recommendations for Adults with Diabetes: Hemoglobin A1c <7.0%. More stringent glycemic goals (A1c <6.0%) may further reduce complications at the cost of increased risk of hypoglycemia. 06/28/2008 10:3 4 AM FABRIC DESIGNER 06/28/2008 5:56 PM FABRIC DESIGNER Narrative Resulting Agency Comment [facility] [address] [phone] Edward Miranda MD LAB - CHEMISTRY ORD ERABLES [facility] ACCOUNT BILL Care Teams Apartment Locator Relationship Specialty Start Date End Date Edward Miranda MD Rheumatology 06/24/11
--- OUTSIDE RECORDS SUMMARY | 2024-09-20 09:35 | XMS_ITS | Referral Summary ---
Author Organization [facility] Address [address] [place] [address] Care Team Providers Care Physician Practice Market Manager Name Role Phone Edward Miranda MD Unavailable [phone] Source Comments [facility],non-owned Affiliates and Associated Physician Practices is amultiple site organization consisting of ambulatory clinics and hospital sitesin [place], [place], [place] and [place]. This disclosure is being madepursuant to the Care Everywhere program and may not contain all information available regarding this patient. Last updated 18.[facility] Allergies Active Allergy Reactions Criticality Noted Date Comments Lisinopril 10/27/2008 Cough Medications * Be aware that medications may not be up to date on this document. Alwaysverify current medications with the patient. Medication Sig Dispensed Refills Start Date End Date Status NASONEX 50 MCG/ACT SUSP [place] 1 [place] into each nostril daily. Prn in [...] PM CDT Narrative Resulting Agency Comment [facility] [address] [phone] Edward Miranda MD LAB - CHEMISTRY ORD ERABLES [facility] ACCOUNT BILL from Last 3 Months or Most Recently Relevant to Health Maintenance Care Teams Physician Practice Market Manager Relationship Specialty Start Date End Date Edward Miranda MD Rheumatology 06/24/11
--- OUTSIDE RECORDS SUMMARY | 2024-09-20 09:35 | XMS_ITS | Data Portability ---
Author Organization [facility], [address] [facility] ([place]) Address [address] [place] [address] Care Team Providers Care Awning Hanger Helper Name Role Phone ANANYA STOREY Referring Provider [...] Hypertension. Continue amlodipine, losartan, and metoprolol. aylin [email or web address] Not available 11/24/2023 23:44:35 Plan of Treatment [...] By Organization Details Last Modified Time 11/23/2023 [id number] smoking cessatio n counseling, greater than 3 [...] Address Organization Details Recorded Time Ischemic stroke 137637528 Active 2023 Omayra Gallardo MD [address] [place] [address], [phone] 3, [employer] 4 12:16:56 Smoker 39732948 Active 2023 Omayra Gallardo MD [facility] [place] [address], [phone] 3, [employer] 4 12:17:47 Labile essential hypertension 406814270 Active 2023 Omayra Gallardo MD [facility] [place] [address], [address] 3, [employer] [facility] 4 12:59:07 Familial hypercholester olemia 632992135 Active 2023 Omayra Gallardo MD [facility] [place] [address], [address] 3, [employer] 4 12:59:16 Type 2 diabetes mellitus 84818080 Active 2023 Omayra Gallardo MD [facility] [place] [address], [phone] 3, [employer] [facility] 4 12:59:34 Problem Notes None recorded. Procedures [...] Address Organization Details Last Updated DateTime 4 58869.1 3 g 65 /min 97 % 97 % 120 mm[Hg] 65 mm[Hg] Lalita Mars [facility] 4 11:27:40 Social History Question Answer [...] Do You Have A Medical Power Of Garbage Pick Up Worker? Yes [email or web address] Information not available 11/21/2023 What [...] available 05/2024 17:59:04 Medical History Condition Response Attention-deficit Hyperactivity Disorder N High Blood Pressure Y Thyroid Problems N COPD N Depression N Anemia N Diabetes Y Anxiety Disorder N Bleeding Disorder N Arthritis Y Hyperlipidemia N Cancer N Stroke Y Asthma N Seizures N Heart Disease N Fibromyalgia N Osteoporosis N Kidney Disease N Gynecological HistoryNo gynecological history recorded. Obstetrics History GPAL:G 0 P 0 0 0 0 Past Encounters Encounter ID Performer Location Encounter Start Date Encounter Closed Date Diagnosis/Indication Diagnosis SNOMED-CT Code Diagnosis ICD10 Code Diagnosis Note [id number] Omayra Gallardo MD [address] [facility] ([place]) [address] [place] [phone] 3 11/23/2023 11:02:53 11/25/2023 10:43:46 Ischemic stroke 371505120 I63.9 Smoker 21842149 F17.200 Labile ess ential hypertension 416802873 I10 Familial hypercholesterolemia 404511587 E78.01 Type 2 essence betes mellitus 45825093 E11.9 Health Concerns Section Related Observation LastModified by Organization Detai ls LastModified Time None Recorded Concern Status LastModified by Organization Details LastModified Time None Recorded Advance Directives Directive N: Payers Encounter Date Sequence Insurance Name Policy Number Policy Morgan Covered Member ID Morgan Member ID Guarantor Name 11/23/2023 1 [facility] ([facility]) Senia Ruth [id number] Senia Ruth Notes Date Note Type Note Provider Name and Address Organization Details Recorded Time 11/23/2023 text/html The patient is a 62-year-old right-handed female who presents today for evaluation after a stroke. I talked her to primary care physician on Thursday. The patient states that she was in [place] for several months as well this winter. [...] scheduled for a CTA tomorrow and a glass blower helper placement on . There are apparently plans [...] A1c was 6.2.aylin Gallardo MD [address] [place] [address], [phone], [employer] 11/24/2023 23:44:51 OBGyn Episode No OBEpisode recorded.
--- OUTSIDE RECORDS SUMMARY | 2024-09-20 09:35 | XMS_ITS | Clinical Summary ---
Author Organization [facility] [employer] Address [address] [place] [address] Care Team Providers Care Golf Club Weigher Name Role Phone Edward Miranda MD Unavailable [phone] Source Comments [facility],non-owned Affiliates and Associated Physician Practices is amultiple site organization consisting of ambulatory clinics and hospital sitesin [place], [place], [place] and [place]. This disclosure is being madepursuant to the Care Everywhere program and may not contain all information available regarding this patient. Last updated 18.[facility] [employer] Allergies Active Allergy Reactions Criticality Noted Date Comments Lisinopril 10/27/2008 Cough Medications * Be aware that medications may not be up to date on this document. Alwaysverify current medications with the patient. Medication Sig Dispensed Refills Start Date End Date Status NASONEX 50 MCG/ACT SUSP [place] 1 [place] into each nostril daily. Prn in the [...] PM CDT Narrative Resulting Agency Comment [facility] [address] [phone] Edward Miranda MD LAB - CHEMISTRY ORD ERABLES Performing Organization Address City/State/[facility] Co de Phone Number [facility] ACCOUNT BILL from Last 3 Months or Most Recently Relevant to Health Maintenance Care Teams Golf Club Weigher Relationship Specialty Start Date End Date Edward Miranda MD Rheumatology 06/24/11
--- OUTSIDE RECORDS SUMMARY | 2024-09-20 09:35 | XMS_ITS | Encounter Summary ---
Author Organization [facility] Address [address] [place] [address] Care Team Providers Care Character Impersonator Name Role Phone Edward Miranda MD Unavailable [phone] Encounter Details Date Type Department Care Team (Late st Contact Info) Description 09/23/2018 Lab Requisition [facility] Care Pathology Lab [address] [place] [address] Arpan Kelly MD [address] [place] [id number] Social History Tobacco Use Types Packs/Day [...] AM CDT) Case Report Flow Cytometry Case: [id number] Authorizing Provider: Arpan Kelly MD Collected: 09/23/2018 09:15 AM Pathologist: Lisa Chang MD Received: 09/23/2018 11:27 AM Specimen: Body Fluid , Right Breast Fluid 09/23/2018 1:58 PM CDT [facility] PATH[facility]Y [facility] Final Diagnosis Right breast fluid, flow cytometric immunophenotypic analysis: - Insufficient hematopoietic cells for analysis. - See interpretation. 09/23/2018 1:58 PM [facility] PATHOLOGY LAB Flow Cytometry Interpretation Preliminary characterization of the right breast fluid specimen demonstrates too few hematopoietic cells for flow cytometric analysis. A cytospin prepared from the flow cytometry specimen is reviewed for quality assurance advisor purposes. Flow cytometry is not performed. KR/NW 09/23/2018 1:58 PM [facility] PATHOLOGY [facility] Flow Cytometry Results Insufficient cells are available for analysis. 09/23/2018 1:58 PM [facility] Client Specimen ID # [id number] 09/23/2018 1:58 PM [facility] PATHOLOGY LAB Disclaimer Test performed at [facility], [address] [place] [address], [address]. *The established laboratory minimum viability is 70%. [...] complexity clinical testing. 09/23/2018 1:58 PM T [facility] PATHOLOGY LAB Embedded Images 1:58 PM T [facility] PATHOLOGY LAB Fluid BODY FLUID SPECIMEN / Unknown 09/23/2018 9:15 AM CDT 09/23/2018 11:27 AM CDT Arpan Kelly MD LAB - PATHOLOGY/CYTO LOGY ORDERABLES [facility] PATHOLOGY LAB [address] [place] [address]. [address] [phone] documented in this encounter Visit Diagnoses Not on filedocumented in this encounter Care Teams Character Impersonator Relationship Specialty Start Date End Date Edward Miranda MD Rheumatology 06/24/11 documented as of this encounter
--- OUTSIDE RECORDS SUMMARY | 2024-09-20 09:35 | XMS_ITS | Referral Summary ---
Author Organization [facility] Address [address] [place] [address] Care Team Providers Care Fundraising Sale Representative Name Role Phone William Craig MD Primary Care Provider [phone] Allergies Active Allergy Reactions Criticality Noted Date [...] risk drug monitoring status 12/21/2012 Overview (10/16/2016): jail use of drug Hyperlipidemia 02/26/2011 HTN (hypertension) 02/26/2007 Social History Tobacco Use Types Packs/Day Years Used Date Smoking Tobacco: Former Cigarettes Q uit: 2009 Smokeless Tobacco: Never Tobacco Cessation:Counseling Given: Not Answered [facility] Utilities Answer Date Recorded In the past 12 months has th e iCrimefighter, gas, oil, or water company threatened to [...] any clubs o r organizations such as shinto groups, unions, fraternal or athletic groups, or [...] the past [address] [facility], were you homeless or living in a [...] on file Legal Sex Female 12:40 AM BENCH HAND Gender Identity Not on file Sexual Orientation Not on file Last Filed Vital Signs Vital Sign Reading Time Taken Comments Blood Pressure 118/71 05/03/2024 3:00 PM CDT Pulse 92 05/03/2024 3:00 PM CDT Temperature 36.7 C (98 F) 05/03/2024 3:00 PM CDT Respiratory Rate 20 05/03/2024 3:00 PM CDT Oxygen Saturation 98% 05/03/2024 3:00 PM CDT Inhaled Oxygen Concentration - - Weight 57.2 kg (126 lb) 05/01/2024 4:22 AM CDT Height 162.6 cm (5' 4 ) 04/20/2024 7:59 AM CDT Body Mass Index 21.63 04/20/2024 7:59 AM CDT Plan of Treatment Not on file Medical Devices Implanted Type Area District Claims Manager Device Identifier Shelf Expiration Date Model / [...] m2 Comment: Interpretive Data Reference Interval Normal >/= 90 mL/min/1.73m2 Mildly decreased* 60 - 89 mL/min/1.73m2 Mildly to moderately decreased 45 - 59 mL/min/1.73m2 Moderately to severely decreased 30 - 44 mL/min/1.73m2 Severely decreased 15 - 29 mL/min/1.73m2 Kidney Failure < 15 mL/min/1.73m2 *Relative to young adult level Estimated glomerular [...] Thang Del Valle DO LAB BLOOD ORDERABLES Critical access hospital Result Performing Organization Address [facility] de Phone Number [address] [place] [address] * (ABNORMAL) Hemoglobin A1c (04/20/2024 4:24 AM CDT) Hgb A1C 6.2(H) 4.0 - 5.6 % Estimated Average Glucose 131 mg/dL NADINE Comment: The ADA recommends reporting an estimated Average Glucose (eAG) with all Hemoglobin A1c results using the equation derived from a study of 507 normal and diabetic adults. Minority populations were underrepresented and children were not included. (Diabetes Care 31:3232-2253, 2008). The eAG is not equivalent to a fasting glucose. Blood 04/20/2024 4:24 AM CDT 04/20/2024 4:32 AM CDT Jammie Dickson [employer] FORMER LAB BLOOD ORDERABLES nal Result Performing Organization Address [facility] Co de Phone Number [address] [place] [address] * (ABNORMAL) Lipid panel (04/20/2024 4:24 AM CDT) Cholesterol 103 30 - 199 mg/dL Comment: Interpretive Data Ages < or = 19 years Acceptable: <170 mg/dL Borderline high: 170-199 mg/dL High: >or= 200 mg/dL Ages > or = 20 years Desirable: <200 mg/dL Borderline high: 200-239 mg/dL High: >or= 240 mg/dL Literature References: 1. Expert Panel on Integrated Guidelines for Cardiovascular Health and Risk Reduction in Children and Adolescents. Pediatrics 2011;128:S213 2. NCEP Expert Panel. Circulation 2004;110:227 Current Interpretive Data was last revised on 2018. Triglycerides 85 <=149 mg/dL NADINE Comment: Interpretive Data Ages < or = 9 years Acceptable: <75 mg/dL Borderline high: 75-99 mg/dL High: >or= 100 mg/dL Ages 10 to 20 years Acceptable: <90 mg/dL Borderline high: 90-129 mg/dL High: >or= 130 mg/dL Ages > or = 20 years Desirable: <150 mg/dL Borderline high: 150-199 mg/dL High: 200-499 mg/dL Very high: >or= 499 mg/dL Literature References: 1. Expert Panel on Integrated Guidelines for Cardiovascular Health and Risk Reduction in Children and Adolescents. Pediatrics 2011;128:S213 2. NCEP Expert Panel. Circulation 2004;110:227 Current Interpretive Data was last revised on 2018. HDL 38(L) >=40 mg/dL NADINE Comment: Interpretive Data Ages < or = 19 years Acceptable: >45 mg/dL Borderline low: 40-45 mg/dL Low: <40 mg/dL Ages > or = 20 years Desirable: >or= 60 mg/dL Low: <40 mg/dL Literature References: 1. Expert Panel on Integrated Guidelines for Cardiovascular Health and Risk Reduction in Children and Adolescents. Pediatrics 2011;128:S213 2. NCEP Expert Panel. Circulation 2004;110:227 Current Interpretive Data was last revised on 2018. LDL, calculated 48 <=129 mg/dL NADINE Comment: Interpretive Data Ages < or = 19 years Acceptable: <110 mg/dL Borderline high: 110-129 mg/dL High: >or= 130 mg/dL Ages > or = 20 years Optimal: <100 mg/dL Near optimal: 100-129 mg/dL Borderline high: 130-159 mg/dL High: >160 mg/dL Calculated using the Javi LDL-C estimating equation. This equation was implemented on 2024. Prior to this date LDL-C was estimated using the Friedewald equation. Literature References: 1. Expert Panel on Integrated Guidelines for Cardiovascular Health and Risk Reduction in Children and Adolescents. Pediatrics 2011;128:S213 2. NCEP Expert Panel. Circulation 2004;110:227 3. Javi M et al. KIM Cardiol. 2020 November 10;5(5):540-548. doi: 10.1001/jamacardio.2020.0013 Current Interpretive Data was last revised on 2024. Non-HDL Cholesterol 65 mg/dL NADINE [place] Comment: Interpretive Data Ages < or = 19 years Acceptable: <120 mg/dL Borderline high: 120-144 mg/dL High: >145 mg/dL Ages > or = 20 years When triglycerides are >200 mg/dL, Non-HDL cholesterol is a secondary target of therapy with treatment goals that are 30 mg/dL greater than the LDL cholesterol target. Literature References: 1. Expert Panel on Integrated Guidelines for Cardiovascular Health and Risk Reduction in Children and Adolescents. Pediatrics 2011;128:S213 2. NCEP Expert Panel. Circulation 2004;110:227 Current Interpretive Data was last revised on 2018. Chol/HDL ratio 3 NADINE [place] Blood 04/20/2024 4:24 AM CDT 04/20/2024 4:32 AM CDT Jammie Dickson NP LAB BLOOD ORDERABLES nal Result NADINE [address] [facility] Department [place] [address] from Last 3 Months or Most Recently Relevant to Health Maintenance Insurance [facility] Advance Directives For more information, please contact: [phone] Documents on File Type Date Recorded Patient Size Painter Expl anation ADVANCE DIRECTIVE 05/04/2024 12:20 PM Pow er of Layout Designer-Medical * Full Code (Latest Code Status on File) Date Activated Date Inactivated Comments 04/20/2024 4:57 AM 05/03/2024 7:33 PM Care Teams Fundraising Sale Representative Relationship Specialty Start Date End Date William Craig MD PCP - General Internal Medicine 02/03/24
--- OUTSIDE RECORDS SUMMARY | 2024-09-20 09:36 | XMS_ITS | Clinical Summary ---
Author Organization [facility] Medical Office Building B Address [address] [place] [address] Care Team Providers Care Payroll Lead Name Role Phone William Craig MD Primary Care Provider [phone] Allergies Active Allergy Reactions Criticality Noted Date [...] risk drug monitoring status 12/21/2012 Overview (10/16/2016): senior care use of drug Hyperlipidemia 02/26/2011 HTN (hypertension) [...] often do you attend chur ch or buddhism services? 1 to 4 times per year [...] any time in the past 12 m [facility], were you homeless or living in a retirement (including now)? No 04/20/2024 Personal Safety Answer Date Recorded Have you ever been in or are you currently in a harmful physical or emotional relationship or is someone making you feel afraid or unsafe? Denies 04/20/2024 Comments No Sex and Gender Information Value Date Recorded Sex Assigned at Not on file Legal Sex Female 12:40 AM SITE SURVEYOR Gender Identity Not on file Sexual Orientation [...] Dilated Eye Exam 1960 Foot Exam 1960 DTaP/Tdap/Td Vaccine (1 - Tdap) 12/25/1971 Hepatitis B Screening 1978 Regular Well Visit/Exam 18-64 1978 Pneumococcal vaccine <65 (1 of 2 - PCV) 12/25/1979 Covid-19 Vaccine (2023-2 5 season) 2024 04/15/2022, 06/03/2021, 10/03/2020, Additional history exists Influenza Vaccine (#1) 2024 Hemoglobin A1C 10/19/2024 04/20/2024 Lipid Panel 04/20/2025 04/20/2024, 11/06/2010 eGFR 05/01/2025 05/01/2024, 04/13, 04/30/2024, Additional history exists Zoster Vaccine Completed 07/07/2023, 03/18/2023 Medical Devices Implanted Type Area Patent Drafter Device Identifier Shelf Expiration Date Model / [...] BLOOD ORDERABLES nal Result Performing Organization Address [facility] de Phone Number [address] [address] * (ABNORMAL) Hemoglobin A1c (04/20/2024 4:24 AM CDT) Hgb A1C 6.2(H) 4.0 - 5.6 % Estimated Average Glucose 131 mg/dL NADINE Comment: The ADA recommends reporting an estimated Average Glucose (eAG) with all Hemoglobin A1c results using the equation derived from a study of 507 normal and diabetic adults. Minority populations were underrepresented and children were not included. (Diabetes Care 31:4401-8189, 2008). The eAG is not equivalent to a fasting glucose. Blood 04/20/2024 4:24 AM CDT 04/20/2024 4:32 AM CDT Jammie Dickson FILLING STATION EQUIPMENT MECHANIC LAB BLOOD ORDERABLES Fi nal Result Performing Organization Address [facility] de Phone Number [address] [address] * (ABNORMAL) Lipid panel (04/20/2024 4:24 AM [...] NCEP Expert Panel. Circulation 2004;110:227 3. Javi Anglin. KIM Cardiol. 2020 November 10;5(5):540-548. doi: 10.1001/jamacardio.2020.0013 [...] LAB BLOOD ORDERABLES Fi nal Result NADINE [address] [facility] Department [place] [address] from Last 3 Months or Most Recently Relevant to Health Maintenance Insurance [facility] CMR [facility] C[facility] Advance Directives For more information, please contact: [phone] Documents on File Type Date Recorded Patient Rock Singer Expl anation ADVANCE DIRECTIVE 05/04/2024 12:[address] [facility] er of Gear Repair Supervisor-Medical * Full Code (Latest Code Status on File) Date Activated Date Inactivated Comments 04/20/2024 4:57 AM 05/03/2024 7:33 PM Care Teams Payroll Lead Relationship Specialty Start Date End Date William Craig MD PCP - General Internal Medicine 02/03/24
--- OUTSIDE RECORDS SUMMARY | 2024-09-20 09:36 | XMS_ITS | Clinical Summary ---
Author Organization [facility] Address [address] [place] [address] Care Team Providers Care Hotel Services Supervisor Name Role Phone William Craig MD Primary Care Provider [phone] Judie Carnes MD Unavailable Allergies Active Allergy [...] AM CDT Appointment [facility] [address] [place] [address] Judie Carnes MD [address] [place] [address] 01/20/2025 10:30 AM CDT Office Visit [facility] [address] [place] [address] Judie Carnes MD [address] [place] [address] Health Maintenance Due Date Last Done Comments [...] patient's age to complete this topic Insurance [employer] Care Teams Hotel Services Supervisor Relationship Specialty Start Date End Date William Craig MD [address] [place] [address] PCP - General INTERNAL MEDICINE 01/15/24 Judie Carnes MD [address] [place] [address] Central Separator Tender CARDIOVASCULAR DISEASE 01/15/24
[2024-09-20 10:16] LABS: Alanine Aminotransferase 18 U/L (14-59); Albumin Level 3.6 g/dL (3.4-5.0); Alkaline Phosphatase 66 U/L (46-116); Anion Gap 9 mmol/L (4-12); Aspartate Amino Transferase 10 U/L (15-37); Bilirubin,Total 0.3 mg/dL (0.00-1.00); Blood Urea Nitrogen 17 mg/dL (7-18); Calcium 9.2 mg/dL (8.5-10.1); Carbon Dioxide 29 mmol/L (21-32); Chloride 106 mmol/L (98-108); Estimated Glomerular Filt Rate 55; Glucose 107 mg/dL (70-99); Osmolality Calculated 299 mOsm/kg (285-295); Sodium 144 mmol/L (136-145)
[2024-09-20 10:17] LABS: CRP < 0.5 mg/dL (0.0-0.9)
[2024-09-20 10:37] LABS: Erythrocyte Sedimentation Rate 8 mm/hr (0-20)
[2024-09-20 11:07] LABS: Band Neutrophils Percent 0 % (0-6); Platelet Estimate Adequate (Adequate); Total Cells Counted 100
[2024-09-20 11:18] LABS: Basophils Percent Manual 0 % (0-1); Eosinophils Absolute Manual 0.88 K/mm3 (0.02-0.50); Eosinophils Percent Manual 15 % (1-6); Lymphocytes Absolute Manual 1.94 K/mm3 (1.1-4.5); Lymphocytes Percent Manual 33 % (18-44); Metamyelocytes Percent 0 %; Monocytes Absolute Manual 0.23 K/mm3 (0.1-0.90); Monocytes Percent Manual 4 % (3-9); Myelocytes Percent 0 %; Neutrophils Absolute Manual 2.83 K/mm3 (1.7-7.2); Neutrophils Percent Manual 48 % (46-73)
[2024-09-22 16:38] LABS: Anti Cyclic Citrullinated Pept >250 UNITS
== END 2024-09-20 08:58 | disposition home or self-care (01) ==
LOC: CHSLAB 09:00
PROVIDERS: PCP Internal Medicine; Visit Provider Internal Medicine
DX: Z79.899 Other long term (current) drug therapy (principal)
CPT/HCPCS: 36415; 80053; 80164; 85025; 85652; 86140; 86200

== ENCOUNTER 2024-09-28 12:07 | Outpatient (CLI) | payer OTHER, SELFPAY ==
--- NOTE | ~2024-09-28 | US_ITS ---
ULTRASOUND ANKLE BRACHIAL INDEX Ordering provider: William Craig MD History: . PAD . Comparison: None. FINDINGS: Right brachial systolic blood pressure: 146 mmHg Left brachial systolic blood pressure: 156 mmHg Right ankle systolic blood pressure: 124 mmHg Left ankle systolic blood pressure: 147 mmHg Right ankle/arm index (KAYKAY): 0.79 Left ankle/arm index (KAYKAY): 0.94 Note regarding KAYKAY: --Normal= 1.0 or slightly greater. --Claudication (moderate stenosis or occlusive state)= 0.6 to 0.9. --Rest pain (severe occlusive states)= 0.5 or less. IMPRESSION: Normal on the left side. Moderate stenosis on the right side. Reviewed, dictated and finalized at location A.
--- OUTSIDE RECORDS SUMMARY | 2024-09-28 13:40 | XMS_ITS | Clinical Summary ---
Author Organization [facility] [employer] Address [address] [place] [address] Care Team Providers Care Tin Can Laborer Name Role Phone Edward Miranda MD Unavailable [phone] Source Comments [facility],non-owned Affiliates and Associated Physician Practices is amultiple site organization consisting of ambulatory clinics and hospital sitesin [place], [place], [place] and [place]. This disclosure is being madepursuant to the Care Everywhere program and may not contain all information available regarding this patient. Last updated 18.[facility] [employer] Allergies Active Allergy Reactions Criticality Noted Date Comments Lisinopril 10/27/2008 Cough Medications * Be aware that medications may not be up to date on this document. Alwaysverify current medications with the patient. Medication Sig Dispensed Refills Start Date End Date Status NASONEX 50 MCG/ACT SUSP [place] 1 [place] into each nostril daily. Prn in the [...] to complete this topic MENINGOCOCCAL (Group B) VACC INE SHARED DECISION-MAKING Aged Out No longer eligibl e based on patient's age to complete this topic MENINGOCOCCAL GROUPS A/C/Y/W VACCINE Aged Out No longer eligible b ased on patient's age to complete this topic [...] CDT Narrative Resulting Agency Comment [facility] [address] [phone] Edward Miranda MD LAB - CHEMISTRY ORD ERABLES [facility] ACCOUNT BILL from Last 3 Months or Most Recently Relevant to Health Maintenance Care Teams Tin Can Laborer Relationship Specialty Start Date End Date Edward Miranda MD Rheumatology 06/24/11
--- OUTSIDE RECORDS SUMMARY | 2024-09-28 13:40 | XMS_ITS ---
Author Organization [facility] Care Team Providers Care Lead Furnace Operator Name Role Phone Sung Guaman Unavailable Unavailable Sarah Fernandez Unavailable Unavailable Jose Loza Unavailable Unavailable William Craig Unavailable Unavailable Allergies and adverse reactions No Known Allergies Care Team Name Role Address Phone Organization Dates William Craig PCP [address] [place], [address], [facility] (Office): : [facility] 05/17/2024 - 09/28/2024 Sung Guaman Attending Physician [address], [place], [facility], [facility] (Office): : : : [facility] 05/17/2024 - 09/28/2024 Sarah Fernandez Attending Physician [address], [place], [address], [facility] (Office): [facility] 05/17/2024 - 09/28/2024 Jose Loza Attending Physician [address], [place], [address], [place] (Office): [facility] 05/17/2024 - 09/28/2024 Goals Section Description Status Target Date Injury will heal without sig ns or symptoms of infection / complications in 14 days. Active 12/17/2024 Decrease risk of fall and/or minimize injuries from falls X 90 days Active 12/17/2024 Senia will be compliant with all medications. Active 12/17/2024 Senia will be compliant with medications throu gh the next review Active 12/17/2024 Senia will be free from co mplications related to infection through the review date. Active 12/17/2024 Senia will participate in 10 activities of their choosing, per week, through the next review. Active 12/17/2024 Ms. Richards will have not n utritional problems during her initial review period. Active 12/17/2024 My personal preferences will be assessed and addressed by facility staff as reasonable through the review date. Active Resident will participate wi th ADL's daily and ADL status will improve by target date Active 12/17/2024 Resident will safely utilize d the designated side rails to promote independence with bed mobility and repositioning through next review Active 12/17/2024 Resident wishes will be honored thru next review Active 12/17/2024 The resident will have no co mplications from skin issues through the next review date Active 12/17/2024 The resident will maintain o ptimal quality of life within limitation imposed by visual function through review date. Active 12/17/2024 The resident will not have a n interruption in normal activities due to pain through next review Active 12/17/2024 Will participate in rehabili tation program and return to prior living arrangements thru next review. Active 12/17/2024 Functional Status Code Name Recorded Time Value Entered By Chair/nvi-pz-rzwct transfer 09/28/2024 Partial/moder ate assistance ctraylor Eating 09/28/2024 Setup or clean-up assistance ctraylor Feeding or Eating 09/28/2024 Not assessed cstone Indicate the type of wheelch air or scooter used 09/28/2024 Independent ctraylor Lying to sitting on side of bed 09/28/2024 Partial/m oderate assistance ctraylor Oral hygiene 09/28/2024 Partial/moderate assistance ctraylor Personal hygiene 09/28/2024 Partial/moderate assista nce ctraylor Roll left and right 09/28/2024 Partial/moderate assi stance ctraylor Sit to lying 09/28/2024 Partial/moderate assistance ctraylor Sit to stand 09/28/2024 Partial/moderate assistance ctraylor Toilet transfer 09/28/2024 Partial/moderate assistan ce ctraylor Toileting hygiene 09/28/2024 Partial/moderate assist ance ctraylor Walk 10 feet 09/28/2024 Partial/moderate assistance ctraylor Walk 150 feet 09/28/2024 Partial/moderate assistance ctraylor Wheel 150 feet 09/28/2024 Dependent ctraylor Immunizations Immunization Status Vaccine Details Vaccine Code CodeSystem Date Notes TB 2 Step Mantoux Skin Test completed tuberculin skin test; unspecified formulation lotNumber: [id number] expiry: 02/17/2027 Mfg: [employer] PASTEUR Given Right Forearm intradermally Step 2 of Multi-step with next step required 98 CVX created date: 05/24/2024 consent date: 05/17/2024 administer ed date: 05/27/2024 TB 2 Step Mantoux Skin Test completed tuberculin skin test; unspecified formulation lotNumber: [id number] expiry: 02/19/2027 Mfg: [employer] PASTEUR [employer] Given 0.1 ml Left Forearm intradermally Step 1 of Multi-step with next step required 98 CVX created date: 05/18/2024 consent date: 05/17/2024 administer ed date: 05/18/2024 Educated by on 05/24/2024 Prevnar 20 completed Pneumococcal conjugate vaccine 20-valent (PCV20), polysaccharide [id number] conjugate, adjuvant, preservative free lotNumber: [id number] expiry: 10/10/2025 Mfg: [employer] [place] Given 0.5 ml Left Deltoid intramuscularly 216 CVX created date: 07/11/2024 consent date: 07/11/2024 administer ed date: 07/11/2024 Influenza, high dose seasonal completed Influenza, high-dose, split virus, trivalent, injectable, preservative free lotNumber: [id number] expiry: 06/11/2025 Mfg: Fluzone High-Dose Given Right Deltoid intramuscularly 135 CVX created date: 05/24/2024 consent date: 05/24/2024 administer ed date: 05/24/2024 Educated by on 05/24/2024 COVID-19, mRNA, LNP-S, PF, 30 mcg/0.3 mL dose, augusto-sucrose completed SARS-COV-2 (COVID-19) vaccine, mRNA, spike protein, LNP, preservative free, 30 mcg/0.3mL dose, augusto-sucrose formulation lotNumber: [id number] expiry: 11/05/2024 Mfg: pfizer Given Left Deltoid intramuscularly 217 CVX created date: 09/15/2024 consent date: 09/14/2024 administer ed date: 09/14/2024 Medications Section Medication Name Status Code CodeSystem Dose Route Frequency Admin Type Sig Text Start Date End Date Clopidogrel Bisulfate Oral Tablet 75 MG active 065657 RXNORM 1 tablet Oral in the morning Routine Give 1 tablet by mouth in the mornin g for CVA 2023 - Tamsulosin HCl Oral Capsule 0.4 MG aborted 627551 RXNORM 1 capsul e Oral in the morning Routine Give 1 capsul e by mouth in the mornin g for bladde r 09/22 Polyvinyl Alcohol Ophthalmic Solution 1.4 % active 300833 RXNORM 1 drop Ophthal hesham three times a day Routine Instil l 1 drop in both eyes three times a day for blindn ess 2023 - Docusate Sodium Oral Tablet 100 MG active 177253 9 RXNORM 1 tablet Oral as needed PRN Give 1 tablet by mouth every 24 hours as needed for Consti pation 2023 - Verapamil HCl ER Oral Tablet Extended Release 180 MG active 604926 RXNORM 1 tablet Oral in the morning Routine Give 1 tablet by mouth in the mornin g for hypert ension 2023 - Rivaroxaban Oral Tablet 2.5 MG aborted 894895 5 RXNORM 1 tablet Oral two times a day Routine Give 1 tablet by mouth two times a day for CVA 09/07 Ondansetron HCl Oral Tablet 4 MG active 249855 RXNORM 1 tablet Oral as needed PRN Give 1 tablet by mouth every 6 hours as needed for Nausea ;Vomit ing 2023 - Divalproex Sodium Oral Tablet Delayed Release 125 MG active 131281 5 RXNORM 500 mg Oral two times a day Routine Give 500 mg by mouth two times a day for CVA 2023 - Leflunomide Oral Tablet 10 MG aborted 20520214 RXNORM 20 mg Oral in the morning Routine Give 20 mg by mouth in the mornin g for rheuma toid arthri tis 09/22 FLUoxetine HCl Oral Tablet 20 MG active 766719 RXNORM 1 tablet Oral in the morning Routine Give 1 tablet by mouth in the mornin g for depres neto 2023 - Acetaminophen Rectal Suppository 650 MG active 082740 RXNORM 1 suppos itory Rectal as needed PRN Insert 1 suppos itory rectal ly every 6 hours as needed for Mild Pain;E levate d Temper ature 2023 - hydrOXYzine HCl Oral Tablet 25 MG active 352285 RXNORM 1 tablet Oral as needed PRN Give 1 tablet by mouth every 6 hours as needed for Anxiet y Stop date is Nov 10 20242023 - Tylenol Oral Tablet 325 MG active 752570 RXNORM 2 tablet Oral as needed PRN Give 2 tablet by mouth every 4 hours as needed for Pain 2023 - Metamucil Free & Natural Oral Powder 43 % active 2 scoop Oral one time a day Routine Give 2 scoop by mouth one time a day for consti pation with 8 oz water 2023 - Saccharomycin DF Oral Capsule 250 MG complete d 1 capsul e Oral two times a day Routine Give 1 capsul e by mouth two times a day for diarrh ea for 30 Days 09/16 Ivermectin Oral Tablet 3 MG complete d 546608 RXNORM 12 mg Oral one time only One Time Only Give 12 mg by mouth one time only for rash until 2024 23:59 Take 12mg PO once. Repeat after 14 days AND Give 12 mg by mouth one time only for rash until 2024 23:59 Take 12mg PO once. 09/10 657980 RXNORM 12 mg Oral one time only One Time Only Give 12 mg by mouth one time only for rash until 2024 23:59 Take 12mg PO once. Repeat after 14 days AND Give 12 mg by mouth one time only for rash until 2024 23:59 Take 12mg PO once. 09/24 Permethrin External Cream 5 % complete d 941423 RXNORM n/a n/a Topical one time only One Time Only Apply to entire body topica lly one time only for rash until 2024 23:59 Apply to entire body at bedtim e. Leave on 8-14 hours. Shower follow ing mornin g. Must cleans e all beddin g and bed. Repeat in 1 week AND Apply to entire body topica lly one time only for rash until 2024 23:59 Apply to entire body at bedtim e. Leave on 8-14 hours. Shower follow ing mornin g. Must cleans e all beddin g and bed 09/10 820174 RXNORM n/a n/a Topical one time only One Time Only Apply to entire body topica lly one time only for rash until 2024 23:59 Apply to entire body at bedtim e. Leave on 8-14 hours. Shower follow ing mornin g. Must cleans e all beddin g and bed. Repeat in 1 week AND Apply to entire body topica lly one time only for rash until 2024 23:59 Apply to entire body at bedtim e. Leave on 8-14 hours. Shower follow ing mornin g. Must cleans e all beddin g and bed 09/17 Xarelto Oral Tablet 20 MG active 420357 8 RXNORM 1 tablet Oral in the morning Routine Give 1 tablet by mouth in the mornin g for antico agulan t 2024 - Comirnaty Intramuscular Suspension Prefilled Syringe 30 MCG/0.3ML aborted 278985 1 RXNORM 1 dose Intramu scular at bedtime Routine Inject 1 dose intram uscula rly at bedtim e for immuni zation for 1 Day 09/14 Comirnaty Intramuscular Suspension Prefilled Syringe 30 MCG/0.3ML complete d 107302 1 RXNORM 1 dose Intramu scular at bedtime Routine Inject 1 dose intram uscula rly at bedtim e for immuni zation for 1 Day 09/16 Arexvy Intramuscular Suspension Reconstituted 120 MCG/0.5ML aborted 861840 9 RXNORM 1 dose Intramu scular in the morning Routine Inject 1 dose intram uscula rly in the mornin g for immuni zation for 1 Day 09/20 Leflunomide Oral Tablet 10 MG active 642591 RXNORM 1 tablet Oral one time a day Routine Give 1 tablet by mouth one time a day for rheuma toid arthri tis 2024 - Rosuvastatin Calcium Oral Tablet 5 MG active 313675 RXNORM 1 tablet Oral one time a day Routine Give 1 tablet by mouth one time a day for hyperl ipidem ia 2024 - Doxycycline Hyclate Oral Tablet 100 MG active 261306 3 RXNORM 1 tablet Oral two times a day Routine Give 1 tablet by mouth two times a day for foot infect ion for 10 Days 10/07 Cefdinir Oral Capsule 300 MG active 013964 RXNORM 1 capsul e Oral two times a day Routine Give 1 capsul e by mouth two times a day for foot infect ion for 7 Days 10/04 Mental Status Section Date Assessment Total Score Description 07/21/2024 BIMS 04 severe cognitiv e impairment CAM 2 Delirium indica luisa 07/19/2024 BIMS 04 severe cognitiv e impairment CAM 4 Delirium indica luisa Problems Problem # Description Date of onset Resolved Date Code CodeSystem Concern Status 1 COVID-[address] active 2 ESSENTIAL (PRIMARY) HYPERTENSION [address] active 3 HEMIPLEGIA AND HEMIPARESIS FOLLOWING CEREBRAL INFARCTION AFFECTING LEFT NON-DOMINANT SIDE [address] active 4 OCCLUSION AND STENOSIS OF LEFT POSTERIOR CEREBRAL ARTERY [address] active 5 OCCLUSION AND STENOSIS OF RIGHT POSTERIOR CEREBRAL ARTERY [address] active 6 PAIN IN LEFT HAND [address] active 7 PAIN IN RIGHT HAND [address] active 8 PRESENCE OF OTHER CARDIAC IMPLANTS AND GRAFTS [address] active 9 RHEUMATOID ARTHRITIS, UNSPECIFIED [address] active 10 TYPE 2 DIABETES MELLITUS WITH HYPERGLYCEMIA [address] active 11 UNSPECIFIED ABNORMALITIES OF GAIT AND MOBILITY [address] active 12 UNSPECIFIED OSTEOARTHRITIS, UNSPECIFIED SITE [address] active 13 UNSPECIFIED VISUAL LOSS [address] active 14 PERSONAL HISTORY OF TRANSIENT ISCHEMIC ATTACK (TIA), 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 DEFICITS [address] active 15 HYPERLIPIDEMIA, UNSPECIFIED [address] active 16 DORSALGIA, UNSPECIFIED [address] active Reason for Referral No Reasons for Referral Entered Social History Social History Observation Description Start Date End Date Code Code System Current Smoking Status Tobacco smoking consumption unknown 381911697 SNOMED CT Sex Assigned At Female 1960 67242-1 [facility] Vital Signs Code Code System Vitals Name Values and Units Timing Information 83621-9 [facility] Pain Level Value=0.0 09/28/2024 9279-1 [facility] Respiratory Rate Value=16.0 Units=/m in 09/27/2024 8462-4 [facility] Blood Pressure-Diastolic Value=80 Un its=mmHg 09/27/2024 8480-6 [facility] Blood Pressure-Systolic Dgyvb=547 Un its=mmHg 09/27/2024 8310-5 [facility] Body Temperature Value=96.8 Units= F 09/27/2024 8867-4 [facility] Heart rate Value=78.0 Units=/min 24315-2 [facility] O2 % BldC Oximetry Value=97.0 Units= % 09/27/2024 89749-6 [facility] Weight Ptich=547.5 Units=Lbs 12/2024 8302-2 [facility] Height Value=63.0 Units=Inches 05/18/2024
--- OUTSIDE RECORDS SUMMARY | 2024-09-28 13:40 | XMS_ITS | Encounter Summary ---
Author Organization [facility] Health Address [address] [place] [address] Care Team Providers Care Cyber Analyst Name Role Phone Edward Miranda MD Unavailable [phone] Encounter Details Date Type Department Care Team (Late st Contact Info) Description 09/23/2018 Lab Requisition [facility] Care Pathology Lab [address] [place] [address] Arpan Kelly MD [address] [place] [id number] Social History Tobacco Use Types Packs/Day [...] AM CDT) Case Report Flow Cytometry Case: [id number] Authorizing Provider: Arpan Kelly MD Collected: 09/23/2018 09:15 AM Pathologist: Lisa Chang MD Received: 09/23/2018 11:27 AM Specimen: Body Fluid , Right Breast Fluid 09/23/2018 1:58 PM CDT [facility] PATHOLOGY LAB Final Diagnosis Right breast fluid, flow cytometric immunophenotypic analysis: - Insufficient hematopoietic cells for analysis. - See interpretation. 09/23/2018 1:58 PM [facility] PATHOLOGY LAB Flow Cytometry Interpretation Preliminary characterization of the right breast fluid specimen demonstrates too few hematopoietic cells for flow cytometric analysis. A cytospin prepared from the flow cytometry specimen is reviewed for quality coordinator purposes. Flow cytometry is not performed. KR/NW 09/23/2018 1:58 PM [facility] PATHOLOGY LAB Flow Cytometry Results Insufficient cells are available for analysis. 09/23/2018 1:[address] [facility] Client Specimen ID # [id number] 09/23/2018 1:58 PM [facility] PATHOLOGY LAB Disclaimer Test performed at [facility], [address] [place] [address], [address]. *The established laboratory minimum viability is 70%. [...] complexity clinical testing. 09/23/2018 1:58 PM [facility] PATHOLOGY LAB Embedded Images 1:58 PM [facility] PATHOLOGY LAB Fluid BODY FLUID SPECIMEN / Unknown 09/23/2018 9:15 AM CDT 09/23/2018 11:27 AM CDT Arpan Kelly MD LAB - PATHOLOGY/CYTO LOGY ORDERABLES [facility] PATHOLOGY LAB [address] [place] [address]. [address] [phone] documented in this encounter Visit Diagnoses Not on filedocumented in this encounter Care Teams Cyber Analyst Relationship Specialty Start Date End Date Edward Miranda MD Rheumatology 06/24/11 documented as of this encounter
--- OUTSIDE RECORDS SUMMARY | 2024-09-28 13:40 | XMS_ITS | Data Portability ---
Author Organization [facility], [address] [facility] ([place]) Address [address] [place] [address] Care Team Providers Care Gluten Settling Tender Name Role Phone ANANYA STOREY Referring Provider [phone] Assessment Encounter Date Assessment Date Assessment LastModified [...] Hypertension. Continue amlodipine, losartan, and metoprolol. aylin [id number] Not available 11/24/2023 23:44:35 Plan of Treatment [...] By Organization Details Last Modified Time 11/23/2023 5022857 smoking cessatio n counseling, greater than 3 [...] Address Organization Details Recorded Time Ischemic stroke 092660358 Active 2023 Omayra Gallardo MD [address] [place] [address], [phone], [facility] 4 12:16:56 Smoker 45961291 Active 2023 Omayra Gallardo MD [facility] [place] [address], [phone], [facility] 4 12:17:47 Labile essential hypertension 968253007 Active 2023 Omayra Gallardo MD [facility] [place] [address], [phone], [facility] 4 12:59:07 Familial hypercholester olemia 000166051 Active 2023 Omayra Gallardo MD [facility] [place] [address], [phone], [facility] 4 12:59:16 Type 2 diabetes mellitus 53955668 Active 2023 Omayra Gallardo MD [facility] [place] [address], [phone], [facility] 4 12:59:34 Problem Notes None [...] Address Organization Details Last Updated DateTime 4 00807.1 3 g 65 /min 97 % 97 % 120 mm[Hg] 65 mm[Hg] Lalita Mars [facility] 4 11:27:40 Social History Question Answer [...] Do You Have A Medical Power Of 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 Yes [email or web address] Information not available [...] available 05/2024 17:59:04 Medical History Condition Response High Blood Pressure Y COPD N Depression N Anxiety Disorder N Arthritis Y Cancer N Stroke Y Fibromyalgia N Kidney Disease N Attention-deficit Hyperactivity Disorder N Thyroid Problems N Anemia N Diabetes Y Bleeding Disorder N Hyperlipidemia N Asthma N Seizures N Heart Disease N Osteoporosis N Gynecological HistoryNo gynecological history recorded. Obstetrics History GPAL:G 0 P 0 0 0 0 Past Encounters Encounter ID Performer Location Encounter Start Date Encounter Closed Date Diagnosis/Indication Diagnosis SNOMED-CT Code Diagnosis ICD10 Code Diagnosis Note [id number] Omayra Gallardo MD [address] [facility] ([place]) [address] [place] [phone] 11/23/2023 11:02:53 11/25/2023 10:43:46 Ischemic stroke 202002036 I63.9 Smoker 58505473 F17.200 Labile ess ential hypertension 678114652 I10 Familial hypercholesterolemia 622068572 E78.01 Type 2 essence betes mellitus 91783412 E11.9 Health Concerns Section Related Observation LastModified by Organization Detai ls LastModified Time None Recorded Concern Status LastModified by Organization Details LastModified Time None Recorded Advance Directives Directive N: Payers Encounter Date Sequence Insurance Name Policy Number Policy Morgan Covered Member ID Morgan Member ID Guarantor Name 11/23/2023 1 [facility] (O) Senia Ruth [id number] Senia Ruth Notes Date Note Type Note Provider Name and Address Organization Details Recorded Time 11/23/2023 text/html The patient is a 62-year-old right-handed female who presents today for evaluation after a stroke. I talked her to primary care physician on Thursday. The patient states that she was in [place] for several months as well this winter. [...] scheduled for a CTA tomorrow and a surveillance system monitor placement on . There are apparently plans [...] A1c was 6.2.aylin Gallardo MD [address] [place] [address], [phone], [facility] 11/24/2023 23:44:51 OBGyn Episode No OBEpisode recorded.
--- OUTSIDE RECORDS SUMMARY | 2024-09-28 13:41 | XMS_ITS | Referral Summary ---
Author Organization [facility] Address [address] [place] [address] Care Team Providers Care Customer Sales Consultant Name Role Phone William Craig MD Primary Care Provider [phone] Allergies Active Allergy Reactions Criticality Noted Date [...] risk drug monitoring status 12/21/2012 Overview (10/16/2016): USP use of drug Hyperlipidemia 02/26/2011 HTN (hypertension) 02/26/2007 Social History Tobacco Use Types Packs/Day Years Used Date Smoking Tobacco: Former Cigarettes Q uit: 2009 Smokeless Tobacco: Never Tobacco Cessation:Counseling Given: Not Answered [facility] Utilities Answer Date Recorded In the past 12 months has th e [employer], gas, oil, or water company threatened to [...] often do you attend chur ch or zoroastrianism services? 1 to 4 times per year 04/20/2024 Do you belong to any clubs o r organizations such as roman catholic groups, unions, fraternal or athletic groups, or [...] any time in the past 12 [facility], were you homeless or living in a senior care (including now)? No 04/20/2024 Personal Safety Answer Date Recorded Have you ever been in or are you currently in a harmful physical or emotional relationship or is someone making you feel afraid or unsafe? Denies 04/20/2024 Comments No Sex and Gender Information Value Date Recorded Sex Assigned at Not on file Legal Sex Female 12:40 AM STAGE HAND Gender Identity Not on file Sexual [...] on file Medical Devices Implanted Type Area Materials Engineering Technician Device Identifier Shelf Expiration Date Model / [...] Critical access hospital Result Performing Organization Address [facility] de Phone Number [address] [place] [employer] [address] * (ABNORMAL) Hemoglobin A1c (04/20/2024 4:24 AM CDT) Hgb A1C 6.2(H) 4.0 - 5.6 % Estimated Average Glucose 131 mg/dL NADINE Comment: The ADA recommends reporting an estimated Average Glucose (eAG) with all Hemoglobin A1c results using the equation derived from a study of 507 normal and diabetic adults. Minority populations were underrepresented and children were not included. (Diabetes Care 31:8356-2285, 2008). The eAG is not equivalent to a fasting glucose. Blood 04/20/2024 4:24 AM CDT 04/20/2024 4:32 AM CDT Jammie Dickson DIRECTOR EPIDEMIOLOGY LAB BLOOD ORDERABLES nal Result Performing Organization Address [facility] Co de Phone Number [address] [place] [address] * (ABNORMAL) Lipid panel (04/20/2024 4:24 AM [...] NP LAB BLOOD ORDERABLES nal Result NADINE [address] [facility] Department [place] [address] from Last 3 Months or Most Recently Relevant to Health Maintenance Insurance [facility] Advance Directives For more information, please contact: [phone] Documents on File Type Date Recorded Patient County Manager Expl anation ADVANCE DIRECTIVE 05/04/2024 12:20 PM Pow er of Rn [facility] * Full Code (Latest Code Status on File) Date Activated Date Inactivated Comments 04/20/2024 4:57 AM 05/03/2024 7:33 PM Care Teams Customer Sales Consultant Relationship Specialty Start Date End Date William Craig MD PCP - General Internal Medicine 02/03/24
--- OUTSIDE RECORDS SUMMARY | 2024-09-28 13:41 | XMS_ITS | Clinical Summary ---
Author Organization [facility] Medical Office Building B Address [address] [place] [address] Care Team Providers Care Block Cableman Name Role Phone William Craig MD Primary Care Provider [phone] Allergies Active Allergy Reactions Criticality Noted Date [...] risk drug monitoring status 12/21/2012 Overview (10/16/2016): FCI use of drug Hyperlipidemia 02/26/2011 HTN (hypertension) [...] often do you attend chur ch or restorationist services? 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 Gender Identity Not on file Sexual Orientation [...] 07/07/2023, 03/18/2023 Medical Devices Implanted Type Area Greenhouse Manager Device Identifier Shelf Expiration Date Model [...] BLOOD ORDERABLES nal Result Performing Organization Address [facility] de Phone Number [address] [address] * (ABNORMAL) Hemoglobin A1c (04/20/2024 4:24 AM CDT) Hgb A1C 6.2(H) 4.0 - 5.6 % Estimated Average Glucose 131 mg/dL NADINE Comment: The ADA recommends reporting an estimated Average Glucose (eAG) with all Hemoglobin A1c results using the equation derived from a study of 507 normal and diabetic adults. Minority populations were underrepresented and children were not included. (Diabetes Care 31:5585-8943, 2008). The eAG is not equivalent to a fasting glucose. Blood 04/20/2024 4:24 AM CDT 04/20/2024 4:32 AM CDT Jammie Dickson CAR PILOT LAB BLOOD ORDERABLES Fi nal Result Performing Organization Address [facility] de Phone Number [address] [address] * (ABNORMAL) Lipid panel (04/20/2024 4:24 AM [...] LAB BLOOD ORDERABLES Fi nal Result NADINE [address] [facility] Department [place] [address] from Last 3 Months or Most Recently Relevant to Health Maintenance Insurance [facility] CMR [facility] C[facility] Advance Directives For more information, please contact: [phone] Documents on File Type Date Recorded Patient Hotel Sales Manager Expl anation ADVANCE DIRECTIVE 05/04/2024 12:[address] [facility] er of Team Truck Driver-Medical * Full Code (Latest Code Status on File) Date Activated Date Inactivated Comments 04/20/2024 4:57 AM 05/03/2024 7:33 PM Care Teams Block Cableman Relationship Specialty Start Date End Date William Craig MD PCP - General Internal Medicine 02/03/24
--- OUTSIDE RECORDS SUMMARY | 2024-09-28 13:41 | XMS_ITS | Clinical Summary ---
Author Organization [facility] Address [address] [place] [address] Care Team Providers Care Housekeeper/Custodian/Laundry Worker Name Role Phone William Craig MD Primary Care Provider [phone] Judie Carnes MD Unavailable Allergies Active Allergy [...] CDT Appointment [facility] [address] [address] Judie Carnes MD [address] [place] [address] 02/03/2025 10:15 AM CDT Office Visit [facility] [address] [place] [address] Judie Carnes MD [address] [place] [address] Health Maintenance Due Date Last Done Comments [...] complete this topic Insurance [employer] Care Teams Housekeeper/Custodian/Laundry Worker Relationship Specialty Start Date End Date William Craig MD [address] [place] [address] PCP - General INTERNAL MEDICINE 01/15/24 Judie Carnes MD [address] [place] [address] [place] Manager Intensive Care CARDIOVASCULAR DISEASE 01/15/24
== END 2024-09-28 12:08 | disposition home or self-care (01) ==
PROVIDERS: PCP Internal Medicine; Visit Provider Internal Medicine
DX: I73.9 Peripheral vascular disease, unspecified (principal)
CPT/HCPCS: 93922

== ENCOUNTER 2024-10-13 14:52 | Emergency (ER) | payer OTHER, SELFPAY ==
[2024-10-13 14:52] VITALS: BP 180/81; PULSE 89; RESP 20; TEMP 36.6; O2SAT 100
--- OUTSIDE RECORDS SUMMARY | 2024-10-13 15:16 | XMS_ITS | Encounter Summary ---
Author Organization [facility] Address [address] [facility] [place] [address] Care Team Providers Care Member Of The Legislative Council Name Role Phone Edward Miranda MD Unavailable [phone] Encounter Details Date Type Department Care Team (Late st Contact Info) Description 09/23/2018 Lab Requisition [facility] Care Pathology Lab [address] [place] [address] Arpan Kelly MD [address] [place] [id number] Social History Tobacco Use Types Packs/Day [...] AM CDT) Case Report Flow Cytometry Case: [id number] Authorizing Provider: Arpan Kelly MD Collected: 09/23/2018 09:15 AM Pathologist: Lisa Chang MD Received: 09/23/2018 11:27 AM Specimen: Body Fluid , Right Breast Fluid 09/23/2018 1:58 PM CDT [facility] PATHOLOGY LAB Final Diagnosis Right breast fluid, flow cytometric immunophenotypic analysis: - Insufficient hematopoietic cells for analysis. - See interpretation. 09/23/2018 1:58 PM [facility] PATHOLOGY LAB Flow Cytometry Interpretation Preliminary characterization of the right breast fluid specimen demonstrates too few hematopoietic cells for flow cytometric analysis. A cytospin prepared from the flow cytometry specimen is reviewed for quality director purposes. Flow cytometry is not performed. KR/NW 09/23/2018 1:58 PM [facility] PATHOLOGY LAB Flow Cytometry Results Insufficient cells are available for analysis. 09/23/2018 1:58 PM [facility] Client Specimen ID # [id number] 09/23/2018 1:58 PM [facility] PATHOLOGY LAB Disclaimer Test performed at [facility], [address] [place] [address], [id number]. *The established laboratory minimum viability is 70%. [...] complexity clinical testing. 09/23/2018 1:58 PM T [facility] PATHOLOGY LAB Embedded Images 1:58 PM T [facility] PATHOLOGY LAB Fluid BODY FLUID SPECIMEN / Unknown 09/23/2018 9:15 AM CDT 09/23/2018 11:27 AM CDT Arpan Kelly MD LAB - PATHOLOGY/CYTO LOGY ORDERABLES [facility] PATHOLOGY LAB [address] [place] [address]. [address] [phone] documented in this encounter Visit Diagnoses Not on filedocumented in this encounter Care Teams Member Of The Legislative Council Relationship Specialty Start Date End Date Edward Miranda MD Rheumatology 06/24/11 documented as of this encounter
--- OUTSIDE RECORDS SUMMARY | 2024-10-13 15:16 | XMS_ITS | Referral Summary ---
[facility] Organization [facility] Address [address] [place] [address] Care Team Providers Care System Analyst Name Role Phone William Craig MD Primary Care Provider [phone] Allergies Active Allergy Reactions Criticality Noted Date [...] Tobacco: Never Tobacco Cessation:Counseling Given: Not Answered [facility] Utilities Answer Date Recorded In the past 12 months has th e [employer], gas, oil, or water company threatened to [...] often do you attend chur ch or alevism services? 1 to 4 times per year 04/20/2024 Do you belong to any clubs o r organizations such as confucianism groups, unions, fraternal or athletic groups, or [...] any time in the past 12 m [facility], were you homeless or living in a fdc (including now)? No 04/20/2024 Personal Safety Answer Date Recorded Have you ever been in or are you currently in a harmful physical or emotional relationship or is someone making you feel afraid or unsafe? 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 Gender Identity Not on file Sexual Orientation [...] on file Medical Devices Implanted Type Area Box Estimator Device Identifier Shelf Expiration Date Model / [...] Thang Del Valle DO LAB BLOOD ORDERABLES [facility] Result Performing Organization Address [facility] de Phone Number [address] [place] [address] * (ABNORMAL) Hemoglobin A1c (04/20/2024 4:24 AM CDT) Hgb A1C 6.2(H) 4.0 - 5.6 % Estimated Average Glucose 131 mg/dL NADINE Comment: The ADA recommends reporting an estimated Average Glucose (eAG) with all Hemoglobin A1c results using the equation derived from a study of 507 normal and diabetic adults. Minority populations were underrepresented and children were not included. (Diabetes Care 31:7326-9245, 2008). The eAG is not equivalent to a fasting glucose. Blood 04/20/2024 4:24 AM CDT 04/20/2024 4:32 AM CDT Jammie Dickson BED SETTER LAB BLOOD ORDERABLES nal Result Performing Organization Address [facility] de Phone Number [address] [place] [address] * (ABNORMAL) Lipid panel (04/20/2024 4:24 AM [...] NP LAB BLOOD ORDERABLES nal Result NADINE [address] [facility] Department [place] [address] from Last 3 Months or Most Recently Relevant to Health Maintenance Insurance [facility] Advance Directives For more information, please contact: [phone] Documents on File Type Date Recorded Patient Syrup Maker Cook Expl anation ADVANCE DIRECTIVE 05/04/2024 12:20 PM Pow er of Pest Management Supervisor-Medical * Full Code (Latest Code Status on File) Date Activated Date Inactivated Comments 04/20/2024 4:57 AM 05/03/2024 7:33 PM Care Teams System Analyst Relationship Specialty Start Date End Date William Craig MD PCP - General Internal Medicine 02/03/24
--- OUTSIDE RECORDS SUMMARY | 2024-10-13 15:16 | XMS_ITS | Data Portability ---
Author Organization [facility], [address] [facility] Neurology ([place]) Address [address] [place] [address] Care Team Providers Care Hvac/R Instructor Name Role Phone ANANYA STOREY Referring Provider [phone] Assessment Encounter Date Assessment Date Assessment LastModified [...] Hypertension. Continue amlodipine, losartan, and metoprolol. aylin [email or web address] Not available 11/24/2023 23:44:35 Plan of Treatment [...] By Organization Details Last Modified Time 11/23/2023 [id number] smoking cessatio n counseling, greater than 3 [...] Address Organization Details Recorded Time Ischemic stroke 911063416 Active 2023 Omayra Gallardo MD [address] [place] [address], [phone], [facility] 4 12:16:56 Smoker 27161440 Active 2023 Omayra Gallardo MD [facility] [place] [address], [phone], [facility] 4 12:17:47 Labile essential hypertension 753881862 Active 2023 Omayra Gallardo MD [facility] [place] [address], [phone], [facility] 4 12:59:07 Familial hypercholester olemia 655297544 Active 2023 Omayra Gallardo MD [facility] [place] [address], [phone], [facility] 4 12:59:16 Type 2 diabetes mellitus 75459755 Active 2023 Omayra Gallardo MD [facility] [place] [address], [phone], [facility] 4 12:59:34 Problem Notes None recorded. Procedures [...] Address Organization Details Last Updated DateTime 4 965[address].1 3 g 65 /min 97 % 97 % 120 mm[Hg] 65 mm[Hg] Lalita Mars [facility] 4 11:27:40 Social History Question [...] Do You Have A Medical Power Of Custom Framing Specialist? Yes [email or web address] Information not available 11/21/2023 What [...] Y Arthritis Y Hyperlipidemia N Cancer N Stroke Y Thyroid Problems N Asthma N Depression N COPD N Anemia N Seizures N Heart Disease N Fibromyalgia N Osteoporosis N Kidney Disease N Gynecological HistoryNo gynecological history recorded. Obstetrics History GPAL:G 0 P 0 0 0 0 Past Encounters Encounter ID Performer Location Encounter Start Date Encounter Closed Date Diagnosis/Indication Diagnosis SNOMED-CT Code Diagnosis ICD10 Code Diagnosis Note [id number] Omayra Gallardo MD [address] [facility] ([place]) [address] [place] [phone] 11/23/2023 11:02:53 11/25/2023 10:43:46 Ischemic stroke 056036777 I63.9 Smoker 12779768 F17.200 Labile ess ential hypertension 629809140 I10 Familial hypercholesterolemia 303393008 E78.01 Type 2 essence betes mellitus 91024902 E11.9 Health Concerns Section Related Observation LastModified by Organization Detai ls LastModified Time None Recorded Concern Status LastModified by Organization Details LastModified Time None Recorded Advance Directives Directive N: Payers Encounter Date Sequence Insurance Name Policy Number Policy Morgan Covered Member ID Morgan Member ID Guarantor Name 11/23/2023 1 [facility] ([facility]) Senia Ruth [id number] Senia Ruth Notes Date Note Type Note Provider Name and Address Organization Details Recorded Time 11/23/2023 text/html The patient is a 62-year-old right-handed female who presents today for evaluation after a stroke. I talked her to primary care physician on Thursday. The patient states that she was in [place] for several months as well this winter. [...] scheduled for a CTA tomorrow and a hall monitor placement on . There are apparently [...] A1c was 6.2.aylin Gallardo MD [address] [place] [address], [phone], [facility] 11/24/2023 23:44:51 OBGyn Episode No OBEpisode recorded.
--- OUTSIDE RECORDS SUMMARY | 2024-10-13 15:16 | XMS_ITS | Clinical Summary ---
Author Organization [facility] Address [address] [place] [address] Care Team Providers Care Beef Lugger Name Role Phone Edward Miranda MD Unavailable [phone] Source Comments [facility],non-owned Affiliates and Associated Physician Practices is amultiple site organization consisting of ambulatory clinics and hospital sitesin [place], [place], [place] and [place]. This disclosure is being madepursuant to the Care Everywhere program and may not contain all information available regarding this patient. Last updated 18.[facility] Allergies Active Allergy Reactions Criticality Noted Date Comments Lisinopril 10/27/2008 Cough Medications * Be aware that medications may not be up to date on this document. Alwaysverify current medications with the patient. Medication Sig Dispensed Refills Start Date End Date Status NASONEX 50 MCG/ACT SUSP [place] 1 [place] into each nostril daily. Prn in the [...] 2010 LIPID TESTING 11/07/2015 11/06/2010 COVID-19 VACCINE ( - 2023-2 5 season) 2024 DEPRESSION SCREENING 07/13/2024 INFLUENZA VACCINE (Season Ended) 2025 Respiratory Syncytial Virus (RSV) Vaccine Pt: or [...] PM CDT Narrative Resulting Agency Comment [facility] [address] [id number] Edward Miranda MD LAB - CHEMISTRY ORD ERABLES [facility] ACCOUNT BILL from Last 3 Months or Most Recently Relevant to Health Maintenance Care Teams Beef Lugger Relationship Specialty Start Date End Date Edward Miranda MD Rheumatology 06/24/11
--- OUTSIDE RECORDS SUMMARY | 2024-10-13 15:16 | XMS_ITS | Clinical Summary ---
Author Organization 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 de Phone Number [address] [address] * (ABNORMAL) Hemoglobin A1c (04/20/2024 4:24 AM CDT) Hgb A1C 6.2(H) 4.0 - 5.6 % Estimated Average Glucose 131 mg/dL NADINE Comment: The ADA recommends reporting an estimated Average Glucose (eAG) with all Hemoglobin A1c results using the equation derived from a study of 507 normal and diabetic adults. Minority populations were underrepresented and children were not included. (Diabetes Care 31:0182-8951, 2008). The eAG is not equivalent to a fasting glucose. Blood 04/20/2024 4:24 AM CDT 04/20/2024 4:32 AM CDT Jammie Dickson TIER AND DETONATOR LAB BLOOD ORDERABLES Fi nal Result Performing Organization Address [facility] de Phone Number [address] [address] * (ABNORMAL) Lipid panel (04/20/2024 4:24 AM [...] LAB BLOOD ORDERABLES Fi nal Result NADINE [address] [facility] Department [place] [address] from Last 3 Months or Most Recently Relevant to Health Maintenance Insurance [facility] CMR [facility] CMR Advance Directives For more information, please contact: [phone] Documents on File Type Date Recorded Patient Plug Cutting Machine Operator Expl anation ADVANCE DIRECTIVE 05/04/2024 12:20 PM [facility] er of Credentialing Manager-Medical * Full Code (Latest Code Status on File) Date Activated Date Inactivated Comments 04/20/2024 4:57 AM 05/03/2024 7:33 PM Care Teams Perch Mender Relationship Specialty Start Date End Date William Craig MD PCP - General Internal Medicine 02/03/24
--- OUTSIDE RECORDS SUMMARY | 2024-10-13 15:17 | XMS_ITS | Clinical Summary ---
Author Organization [facility] Address [address] [place] [address] Care Team Providers Care Restorative Rehab Aide Name Role Phone William Craig MD Primary Care Provider [phone] Judie Carnes MD Unavailable Allergies Active Allergy [...] AM CDT Appointment [facility] [address] [address] Judie Carnes MD [address] [place] [address] 02/03/2025 10:15 AM CDT Office Visit [facility] [address] [place] [address] Judie Carnes MD [address] [place] [address] Health Maintenance Due Date Last Done Comments [...] 2024 04/15/2022, 06/03/2021, 10/03/2020, Additional history exists Cervical Cancer Screening Pap Smear (Age 30 [...] complete this topic Insurance [employer] Care Teams Restorative Rehab Aide Relationship Specialty Start Date End Date William Craig MD [address] [place] [address] PCP - General INTERNAL MEDICINE 01/15/24 Judie Carnes MD [address] [place] [address] [place] Operations Clerk CARDIOVASCULAR DISEASE 01/15/24
--- NOTE | 2024-10-13 15:31 | ED_ITS ---
HPI - Wound/Laceration General Stated Complaint: bit her tongue Time Seen by Provider: 10/13/24 15:10 Source: patient and family Mode of arrival: ambulatory Limitations: no limitations History of Present Illness HPI narrative: this is a 63-year-old female with history of multiple strokes currently on Plavix and Xarelto bit her tongue earlier this afternoon and has a small non gaping cut on the tip of her tongue that has continued to bleed no other injuries noted. Onset (ago): hour(s) Location: other ( small laceration on the tip of the tongue after she did it accidentally) Place: home Related Data Home Medications ?Medication ?Instructions ?Recorded ?Confirmed ?Last Taken ?Type leflunomide 20 mg tablet 20 mg PO DAILY 01/29/24 08/15/24 05/03/24 History verapamil 180 mg tablet,extended 180 mg PO DAILY 04/07/24 08/15/24 05/03/24 History release acetaminophen 650 mg rectal 650 mg RECTAL Q6H PRN fever or pain 05/03/24 08/15/24 Unknown History suppository divalproex 125 mg capsule,delayed 500 mg PO BID 05/03/24 08/15/24 05/03/24 History release sprinkle docusate sodium 100 mg capsule 100 mg PO PRN PRN Constipation 05/03/24 08/15/24 Unknown History polyvinyl alcohol 1.4 % eye drops 1 drp EACH EYE TID 05/03/24 08/15/24 Unknown History rivaroxaban 2.5 mg tablet 15 mg PO BID 05/03/24 08/15/24 05/03/24 History Allergies Allergy/AdvReac Type Severity Reaction Status Date / Time lisinopril AdvReac Cough Verified 08/15/24 17:01 Review of Systems Review of Systems: All systems reviewed & are unremarkable except as noted in HPI and below [facility] Past Medical History Medical History Prediabetes A1C 6.2% on 01/29/2024 Acute cerebrovascular accident (CVA) due to occlusion of right posterior cerebral artery Rheumatoid arthritis Neck pain Cerebrovascular accident (CVA) due to embolism of left posterior cerebral artery Bilateral hand pain Encounter for screening for other viral diseases Rheumatoid arthritis, seropositive, multiple sites Inflammatory arthritis (~02/2020) Hypertension Arthritis Family History Family History Mother Hypertension Diabetes mellitus Father Hypertension Sibling Hypertension Diabetes mellitus Social History Social History Smoking packs per day: 1 Smoking cigarettes per day: 20.0 Years smoked: 10 Smoking pack-years: 10.00 Smoking status: Former smoker Tobacco type: cigarettes Second hand tobacco smoke exposure: No Smoking end date: 05/03/24 Alcohol intake: never Substance use: never Substance use type: does not use Do You Feel Safe in your Home?: Yes Lack of Transportation: No Lack of Food: Never True Current Housing: I Have Housing Concerned About Future Housing: No Difficulty Paying Gas/Electric Bills: No Difficulty Paying for Meds: No Currently Unemployed: No Education: Don't Know Difficulty w/ Childcare or Family Care: No Living arrangements: with family Occupation/Education: occupation Gender identity (if verbalized by the patient): Female Spiritual care concerns: No Exam Const: General: healthy appearing Nutritional Appearance: well nourished Orientation/consciousness: patient oriented x3 Limitations: no limitations HENMT: Other: Small cut on the tip of her anterior tongue that continues to lose blood. Neck: Neck: normal visual inspection and no lymphadenopathy Chest: Chest palpation & inspection: normal inspection of the chest Resp: Effort & Inspection: normal respiratory effort Auscultation: clear to auscultation bilaterally Cardio: Rate: regular rate Rhythm: regular rhythm GI: GI Palp: Yes Soft to palpation Skin: Wounds: wounds noted Extrem: General: normal to inspection Course Course Emergency Course: Initially used pressure that was applied to the tip of the anterior tongue but the bleeding persisted than cauterize small area and silver nitrate was used. And TXA liquid form on gauze was applied to the bleeding site. Vital Signs Vital signs: Vital Signs Temperature 36.6 C 10/13/24 14:52 Pulse Rate 89 10/13/24 14:52 Respiratory Rate 20 10/13/24 14:52 Blood Pressure 180/81 H 10/13/24 14:52 Pulse Oximetry 100 10/13/24 14:52 Oxygen Delivery Room Air 10/13/24 14:52 Temperature 36.6 C 10/13/24 14:52 Pulse Rate 89 10/13/24 14:52 Respiratory Rate 20 10/13/24 14:52 Blood Pressure 180/81 H 10/13/24 14:52 Pulse Oximetry 100 10/13/24 14:52 Oxygen Delivery Room Air 10/13/24 14:52 Critical Care Time Critical Care Time Critical Care Time: No Discharge Plan Discharge Clinical Impression: Open wound of tongue due to bite Patient Disposition: Home, Self-Care Condition: Stable Instructions: Antibiotic Form Patient Language: Thai Prescriptions: No Action ondansetron 4 mg tablet,disintegrating 4 mg PO Q8H PRN (Reason: nausea and vomiting) Qty: 30 0RF acetaminophen 650 mg Suppository 650 mg RECTAL Q6H PRN (Reason: fever or pain) docusate sodium 100 mg Capsule 100 mg PO PRN MDD 1 PRN (Reason: Constipation) divalproex 125 mg Capsule, Delayed Rel Sprinkle 500 mg PO BID polyvinyl alcohol 1.4 % Drops 1 drp EACH EYE TID rivaroxaban 2.5 mg Tablet 15 mg PO BID Rx Instructions: STARTED 04-28-24 Take 15mg bid for 17 days. Then 20mg daily at supper. Saccharomyces boulardii [Daily Probiotic (S. boulardii)] 250 mg capsule 250 mg PO BID Qty: 60 0RF loperamide [Imodium A-D] 2 mg tablet 2 mg PO Q6H PRN (Reason: loose stool) Qty: 20 0RF Rx Instructions: For diarrhea leflunomide 20 mg tablet 20 mg PO DAILY clopidogrel 75 mg Tablet 75 mg PO QAM Qty: 30 0RF verapamil 180 mg Tablet Extended Release 180 mg PO DAILY tamsulosin 0.4 mg Capsule 0.4 mg PO QAM Qty: 30 0RF fluoxetine 20 mg Tablet 20 mg PO DAILY Qty: 90 0RF hydroxyzine HCl 25 mg Tablet 25 mg PO Q6H PRN (Reason: Anxiety) Qty: 30 0RF Follow-up/Referrals: William Craig MD [Primary Care Provider] -
--- OUTSIDE RECORDS SUMMARY | 2024-10-13 15:42 | XMS_ITS | Encounter Summary ---
Author Organization [facility] Address [address] [place] [address] Care Team Providers Care Physician Name Role Phone Edward Miranda MD Unavailable [phone] Encounter Details Date Type Department Care Team (Late st Contact Info) Description 09/23/2018 Lab Requisition [facility] Care Pathology Lab [address] [place] [address] Arpan Kelly MD [address] [place] [id number] Social History Tobacco Use Types Packs/Day [...] AM CDT) Case Report Flow Cytometry Case: [id number] Authorizing Provider: Arpan Kelly MD Collected: 09/23/2018 09:15 AM Pathologist: Lisa Chang MD Received: 09/23/2018 11:27 AM Specimen: Body Fluid , Right Breast Fluid 09/23/2018 1:58 PM CDT [facility] PATHOLOGY LAB Final Diagnosis Right breast fluid, flow cytometric immunophenotypic analysis: - Insufficient hematopoietic cells for analysis. - See interpretation. 09/23/2018 1:[address] [facility] PATHOLOGY LAB Flow Cytometry Interpretation Preliminary characterization of the right breast fluid specimen demonstrates too few hematopoietic cells for flow cytometric analysis. A cytospin prepared from the flow cytometry specimen is reviewed for quality checker purposes. Flow cytometry is not performed. KR/NW 09/23/2018 1:[address] [facility] PATHOLOGY LAB Flow Cytometry Results Insufficient cells are available for analysis. 09/23/2018 1:58 PM [facility] PATHOLOGY LAB Client Specimen ID # [id number] 09/23/2018 1:[address] [facility] PATHOLOGY LAB Disclaimer Test performed at [facility], [address] [place] [address], [address]. *The established laboratory minimum viability is 70%. [...] complexity clinical testing. 09/23/2018 1:58 PM T [facility] PATHOLOGY LAB Embedded Images 1:58 PM T [facility] PATHOLOGY LAB Fluid BODY FLUID SPECIMEN / Unknown 09/23/2018 9:15 AM CDT 09/23/2018 11:27 AM CDT Arpan Kelly MD LAB - PATHOLOGY/CYTO LOGY ORDERABLES [facility] PATHOLOGY LAB [address] [place] [address]. [address] [phone] documented in this encounter Visit Diagnoses Not on filedocumented in this encounter Care Teams Physician Relationship Specialty Start Date End Date Edward Miranda MD Rheumatology 06/24/11 documented as of this encounter
--- OUTSIDE RECORDS SUMMARY | 2024-10-13 15:42 | XMS_ITS | Clinical Summary ---
Author Organization [facility] [employer] Address [address] [place] [address] Care Team Providers Care Visitor Services Representative Name Role Phone Edward Miranda MD Unavailable [phone] Source Comments [facility],non-owned Affiliates and Associated Physician Practices is amultiple site organization consisting of ambulatory clinics and hospital sitesin [place], [place], [place] and [place]. This disclosure is being madepursuant to the Care Everywhere program and may not contain all information available regarding this patient. Last updated 18.[facility] [employer] Allergies Active Allergy Reactions Criticality Noted Date Comments Lisinopril 10/27/2008 Cough Medications * Be aware that medications may not be up to date on this document. Alwaysverify current medications with the patient. Medication Sig Dispensed Refills Start Date End Date Status NASONEX 50 MCG/ACT SUSP Pompeys Pillar 1 Pompe[place] Pillar into each nostril daily. Prn in the [...] PM CDT Narrative Resulting Agency Comment [facility] [address] [phone] Edward Miranda MD LAB - CHEMISTRY ORD ERABLES [facility] ACCOUNT BILL from Last 3 Months or Most Recently Relevant to Health Maintenance Care Teams Visitor Services Representative Relationship Specialty Start Date End Date Edward Miranda MD Rheumatology 06/24/11
--- OUTSIDE RECORDS SUMMARY | 2024-10-13 15:42 | XMS_ITS | Referral Summary ---
Author Organization [facility] Address [address] [place] [address] Care Team Providers Care Wire Straightener Name Role Phone William Craig MD Primary Care Provider [phone] Allergies Active Allergy Reactions Criticality Noted Date [...] risk drug monitoring status 12/21/2012 Overview (10/16/2016): [facility] use of drug Hyperlipidemia 02/26/2011 HTN (hypertension) 02/26/2007 Social History Tobacco Use Types Packs/Day Years Used Date Smoking Tobacco: Former Cigarettes Q uit: 2009 Smokeless Tobacco: Never Tobacco Cessation:Counseling Given: Not Answered [facility] Utilities Answer Date Recorded In the past 12 months has th e [employer], gas, oil, or water company threatened to [...] often do you attend chur ch or jew services? 1 to 4 times per year [...] any time in the past 12 m [facility], were you homeless or living in a longterm (including now)? No 04/20/2024 Personal Safety Answer Date Recorded Have you ever been in or are you currently in a harmful physical or emotional relationship or is someone making you feel afraid or unsafe? 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 Gender Identity Not on file Sexual Orientation [...] on file Medical Devices Implanted Type Area Seed Core Operator Device Identifier Shelf Expiration Date Model [...] Thang Del Valle DO LAB BLOOD ORDERABLES [facility] Result Performing Organization Address [facility] de Phone Number [address] [place] [address] * (ABNORMAL) Hemoglobin A1c (04/20/2024 4:24 AM CDT) Hgb A1C 6.2(H) 4.0 - 5.6 % Estimated Average Glucose 131 mg/dL NADINE Comment: The ADA recommends reporting an estimated Average Glucose (eAG) with all Hemoglobin A1c results using the equation derived from a study of 507 normal and diabetic adults. Minority populations were underrepresented and children were not included. (Diabetes Care 31:0286-1574, 2008). The eAG is not equivalent to a fasting glucose. Blood 04/20/2024 4:24 AM CDT 04/20/2024 4:32 AM CDT Jammie Dickson LAB ANIMAL TECHNOLOGIST LAB BLOOD ORDERABLES nal Result Performing Organization Address [facility]/[employer] de Phone Number [address] [place] [address] * (ABNORMAL) Lipid panel (04/20/2024 4:24 AM [...] NP LAB BLOOD ORDERABLES nal Result NADINE [address] [facility] Department [place] [address] from Last 3 Months or Most Recently Relevant to Health Maintenance Insurance [facility] Advance Directives For more information, please contact: [phone] Documents on File Type Date Recorded Patient Enterprise Analyst Expl anation ADVANCE DIRECTIVE 05/04/2024 12:20 PM Pow er of Manager Internet-[employer] * Full Code (Latest Code Status on File) Date Activated Date Inactivated Comments 04/20/2024 4:57 AM 05/03/2024 7:33 PM Care Teams Wire Straightener Relationship Specialty Start Date End Date William Craig MD PCP - General Internal Medicine 02/03/24
--- OUTSIDE RECORDS SUMMARY | 2024-10-13 15:42 | XMS_ITS | Clinical Summary ---
Author Organization [facility] Address [address] [place] [address] Care Team Providers Care Marketing Programs Specialist Name Role Phone William Craig MD Primary Care Provider [phone] Judie Carnes MD Unavailable Allergies Active Allergy [...] AM CDT Appointment [facility] [address] [place] [address] Judie Carnes MD [address] [place] [address] 02/03/2025 10:15 AM CDT Office Visit [facility] [address] [place] [address] Judie Carnes MD [address] [place] [address] Health Maintenance Due Date Last Done Comments [...] complete this topic Insurance [employer] Care Teams Marketing Programs Specialist Relationship Specialty Start Date End Date William Craig MD [address] [place] [address] PCP - General INTERNAL MEDICINE 01/15/24 Judie Carnes MD [address] [place] [address] Brick Talent Acquisition Lead CARDIOVASCULAR DISEASE 01/15/24
--- OUTSIDE RECORDS SUMMARY | 2024-10-13 15:42 | XMS_ITS | Clinical Summary ---
Author Organization [facility] Building [facility] Address [address] [place] [address] Care Team Providers Care Enterprise Sales Executive Name Role Phone William Craig MD Primary Care Provider [phone] Allergies Active Allergy Reactions Criticality Noted Date [...] risk drug monitoring status 12/21/2012 Overview (10/16/2016): longterm use of drug Hyperlipidemia 02/26/2011 HTN (hypertension) [...] any clubs o r organizations such as gnosticist groups, unions, fraternal or athletic groups, or [...] time in the past 12 m [facility], were you homeless or living in [...] on file 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 de Phone Number [address] [place] [address] [address] * (ABNORMAL) Hemoglobin A1c (04/20/2024 4:24 AM CDT) Hgb A1C 6.2(H) 4.0 - 5.6 % Estimated Average Glucose 131 mg/dL NADINE Comment: The ADA recommends reporting an estimated Average Glucose (eAG) with all Hemoglobin A1c results using the equation derived from a study of 507 normal and diabetic adults. Minority populations were underrepresented and children were not included. (Diabetes Care 31:5728-3927, 2008). The eAG is not equivalent to a fasting glucose. Blood 04/20/2024 4:24 AM CDT 04/20/2024 4:32 AM CDT Jammie Dickson BENCH WORKER HOLLOW HANDLE LAB BLOOD ORDERABLES Fi nal Result Performing Organization Address [facility] de Phone Number [address] [address] * (ABNORMAL) Lipid panel (04/20/2024 4:24 AM [...] LAB BLOOD ORDERABLES Fi nal Result NADINE [address] [facility] Department [place] [address] from Last 3 Months or Most Recently Relevant to Health Maintenance Insurance [facility] Advance Directives For more information, please contact: [phone] Documents on File Type Date Recorded Patient Perishable Freight Inspector Expl anation ADVANCE DIRECTIVE 05/04/2024 12:[address] [facility] er of Production Planner Scheduler-Medical * Full Code (Latest Code Status on File) Date Activated Date Inactivated Comments 04/20/2024 4:57 AM 05/03/2024 7:33 PM Care Teams Enterprise Sales Executive Relationship Specialty Start Date End Date William Craig MD PCP - General Internal Medicine 02/03/24
--- NOTE | 2024-10-13 17:28 | PC.NURSE ---
1508 DR. SAENZ CAUTERIZED SMALL BLEED FROM BITING TIP OF TONGUE 1511 DR. SAENZ APPLIED SILVER NITRATE TO TIP OF TONGUE. CONTINUING TO BLEED. 1517 DR. SAENZ CAUTERIZED TIP OF TONGUE. CONTINUING TO BLEED. 1518 DR. SAENZ APPLIES SILVER NITRATE TO TIP OF TONGUE. CONTINUING TO BLEED. 1520 DR. SAENZ APPLIED SOAKED TXA GAUZE TO TIP OF TONGUE TO TRY AND STOP BLEEDING. CONTINUING TO BLEED. 1528 DR. SAENZ APPLIED SOAKED TXA GAUZE TO TIP OF TONGUE TO TRY AND STOP BLEEDING. CONTINUING TO BLEED. 1540 DR[address] SAENZ CAUTERIZED TIP OF TONGUE. CONTINUING TO BLEED. 1547 DR[address] SAENZ APPLIED SOAKED TXA GAUZE TO TIP OF TONGUE AND TOLD TO HOLD PRESSURE TO TRY AND STOP BLEEDING. CONTINUING TO BLEED. 1720 DR[address] SAENZ CONTINUES SOAKED TXA GAUZE TO TIP OF TONGUE. ICE ALSO APPLIED. PRESSURE HELD TO TRY AND STOP BLEEDING. CONTINUING TO BLEED.
[2024-10-13 17:55] VITALS: BP 136/87; PULSE 89; RESP 20; TEMP 36.7; O2SAT 98
--- NOTE | 2024-10-13 18:29 | PC.NURSE ---
On 10/13/24, the student, [bob hendricks ], provided care and completed [facility] documentation on this patient. I have reviewed the student's documentation and agree with the findings.
--- NOTE | 2024-10-13 18:34 | PC.NURSE ---
1745 pts wants to take her home states he can hold gauze on her tongue at home we have held gauze with TXA on tongue for at least 2 hrs and tongue continues to ooze blood from tip of tongue ice in gauze on tongue [place] poorly dr mckeon spoke with and they will come back if they cont to have a lot of bleeding
== END 2024-10-13 17:55 | disposition home or self-care (01) ==
PROVIDERS: Emergency Provider Emergency Medicine; PCP Internal Medicine
DX: S01.512A Laceration without foreign body of oral cavity, initial encounter (principal); M06.9 Rheumatoid arthritis, unspecified; I10 Essential (primary) hypertension; Z87.891 Personal history of nicotine dependence; Z86.73 Personal history of transient ischemic attack (TIA), and cerebral infarction without residual deficits; W45.8XXA Other foreign body or object entering through skin, initial encounter
CPT/HCPCS: 12011; 99283

== ENCOUNTER 2024-12-14 10:05 | Outpatient (RCR) | payer OTHER, SELFPAY ==
--- NOTE | 2024-12-14 12:12 | OPREHPOC ---
Outpatient Therapy Plan of Care This is a Multidisciplinary Plan of Care that may contain components documented by all disciplines (PT, OT, and ST.) PT Problem 1 PT Problem #1 Knowledge Deficit PT Goal 1 Goal / Goal Update The patient with her 's assist will be independent in a home exercise program. Target Visit 4 PT Problem 2 PT Problem #2 Impaired Balance PT Goal 1 Goal / Goal Update The patient will demonstrate 19/28 on the Tinetti Balance Scale indicating a moderate fall risk versus a high fall risk. Target Visit 10 PT Problem 3 PT Problem #3 Impaired Gait PT Goal 1 Goal / Goal Update The patient will be able to ambulate 200 feet with the least restrictive assistive device to improve household ambulation. Target Visit 10 PT Problem 4 PT Problem #4 Impaired Strength PT Goal 1 Goal / Goal Update The patient will demonstrate 4-/5 or greater left hip, knee, and ankle strength to improve gait and balance. PT Problem 5 PT Problem #5 Impaired Functional Mobility PT Goal 1 Goal / Goal Update The patient will demonstrate CGA for sit to/from stand transfers to improve functional mobility. Target Visit 10
--- NOTE | 2024-12-14 12:12 | PTOPEVAL1 ---
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 She spent [facility] months in a [facility] facility and has been able to return to living at home the last 2 months. She was brought home on 09/27/24 at which time she had a LE circulation test that showed she had only 60% circulation on the right leg. She is only able to walk in the house with help of her due to poor vision. He reports she is only able to see one small spot on the right side of her visual field. He is helping her with bathing, toileting, grooming, and walking. He reports after being home for awhile, she may have had a TIA because she was having trouble walking and disoriented for a few days. She has had a decline in her ambulation recently due to weakness in her legs. Her has been having her use a stationary bike daily. She does have a wheeled walker and rollator walker at home but she does not use them because her helps her. Her is retired and is with her 02/02. The patient denies pain currently in her legs. She is having sensitivity to touch. She has blood work monthly with her doctor and she is scheduled for another LE circulation test on . Reported Pain Level Pain Score 0: Self Report Pain Score 0: Self Report Assessment PT Clinical Summary Senia Ruth presents with weakness and a decline in gait and balance following multiple CVA 's. Her reports she may have had a TIA as well because she was disoriented and had more trouble walking for a few days. She has poor vision following her CVA's and currently can only see a small portion in the right visual field. She has difficulty with walking, standing, balance, bathing, grooming, and toileting. Her is with her 02/02 and assists with her ADLs. She has had a decline in her ability to walk recently as well as declining strength in her legs. She objectively demonstrates poor transfer technique for sit to stand, decreased L > R LE strength, altered gait, decreased balance, and decreased functional abilities. She is a high fall risk per the Tinetti Balance scale. She will benefit from skilled PT to address these limitations. Plan of Care Interventions Gait Training,Neuro Re-education,Patient/Caregiver Education,Therapeutic Activities,Therapeutic Exercise PT Services Indicated Yes Treatment Frequency and 2 times a week for 10 visits Duration These treatments will address the objective and functional deficits as defined above. The patient will be advanced safely and appropriately in order for the patient to progress towards his/her prior level of function. Additional exercises will be introduced and as well as a comprehensive home exercise program upon discharge, if needed, ?to ensure carryover of functional gains achieved in the clinic. This treatment plan has been reviewed and agreement upon by the patient.
--- NOTE | 2024-12-15 13:12 | BUOTOPEVAL ---
Assessment and note entered by Leatha Enriquez OT Evaluation Information Assessment Status Evaluation Assessment Status Evaluation Diagnosis CVA with significant visual deficits ICD-10 Condition Codes (OT) Generalized muscle weakness M62.81 Onset March 2024 Reported Pain Level Pain Score 0: Self Report Pain Score 0: Self Report Assessment OT Clinical Summary The patient is a 63 year old female who was referred to outpatient OT due to CVA with significant visual deficits. She has been diagnosed with blood clotting issues that have caused multiple strokes. She now demonstrates deficits in cognition and coordination that results in deficits with fine motor coordination, proprioception, body awareness, visual neglect, visual acuity, ideational apraxia, depth perception, and dressing apraxia that affects her ability to engage in daily tasks such as self care and leisure activities without constant supervision. The patient demonstrates severe visual deficits with L visual neglect, moderate depth perception deficits, and severe apraxia which affects her ability to perform daily tasks. Therapist was unable to score patient on Trails A, Star cancellation, Small cancellation, or MVPT due to poor vision with family reporting that she has other glasses that help her to see up close. Therapist educated them to bring to next session to attempt to engage in assessments. The patient scored significantly below norms for L fine motor coordination, body awareness, and 4-/5 muscle strength of L UE resulting in decreased use of affected UE during daily tasks. The patient requires skilled OT to address deficits and improve independence with dressing, grooming, laundry, and leisure tasks. Plan of Care Interventions Therapeutic Exercise,Neuro Re-education, Therapeutic Activities,Cognitive Function,Sensory Integrative Techniques,Self-Care/Home Management OT Services Indicated Yes Treatment Frequency and 2-3x/week for 10 visits. Duration These treatments will address the objective and functional deficits as defined above. The patient will be advanced safely and appropriately in order for the patient to progress towards his/her prior level of function. Additional exercises will be introduced and as well as a comprehensive home exercise program upon discharge, if needed, ?to ensure carryover of functional gains achieved in the clinic. This treatment plan has been reviewed and agreement upon by the patient.
--- NOTE | 2024-12-15 13:12 | OPREHPOC ---
Outpatient Therapy Plan of Care This is a Multidisciplinary Plan of Care that may contain components documented by all disciplines (PT, OT, and ST.) PT Problem 1 PT Problem #1 Knowledge Deficit PT Goal 1 Goal / Goal Update The patient with her 's assist will be independent in a home exercise program. Target Visit 4 PT Problem 2 PT Problem #2 Impaired Balance PT Goal 1 Goal / Goal Update The patient will demonstrate 19/28 on the Tinetti Balance Scale indicating a moderate fall risk versus a high fall risk. Target Visit 10 PT Problem 3 PT Problem #3 Impaired Gait PT Goal 1 Goal / Goal Update The patient will be able to ambulate 200 feet with the least restrictive assistive device to improve household ambulation. Target Visit 10 PT Problem 4 PT Problem #4 Impaired Strength PT Goal 1 Goal / Goal Update The patient will demonstrate 4-/5 or greater left hip, knee, and ankle strength to improve gait and balance. PT Problem 5 PT Problem #5 Impaired Functional Mobility PT Goal 1 Goal / Goal Update The patient will demonstrate CGA for sit to/from stand transfers to improve functional mobility. Target Visit 10 OT Problem 1 OT Problem #1 Knowledge Deficit OT Goal 1 Goal / Goal Update The patient and caregiver will demonstrate 100% knowledge and return demonstration for UE exercises for coordination, visual scanning activities and adaptive techniques to maximize independence at home and during self care tasks. Target Visit 10 OT Problem 2 OT Problem #2 Impaired Coordination OT Goal 1 Goal / Goal Update The patient will demonstrate increased fine motor coordination with L UE by performing 9-hole peg test in <2 minutes in order to fasten buttons and zippers during dressing tasks. Target Visit 10 OT Goal 2 Goal / Goal Update The patient will demonstrate improvement in dressing apraxia by utilizing adaptive dressing techniques with min verbal cues in order to increase independence with UB dressing. Target Visit 20 OT Problem 3 OT Problem #3 Impaired Functional ADLs OT Goal 1 Goal / Goal Update The patient will demonstrate increased body awareness and L visual scanning through the need for min verbal cues during bilateral coordination task performed at midline in order to increase independence with self feeding. Target Visit 20 OT Goal 2 Goal / Goal Update The patient will connect the numbers of sample Trails A performing visual scanning with min verbal cues in <2 minutes in order to demonstrate increased cognitive function for attending to task and attending to L side for increased independence with functional tasks. Target Visit 10 OT Problem 4 OT Problem #4 Impaired Strength OT Goal 1 Goal / Goal Update The patient will demonstrate increased UB strength of L UE demonstrating 4+/5 muscle strength of shoulder flexion and elbow flexion/extension needed to maintain strength of neglected side of body to avoid muscle loss. Target Visit 10
--- NOTE | 2025-01-12 15:25 | OPREHPOC ---
Outpatient Therapy Plan of Care This is a Multidisciplinary Plan of Care that may contain components documented by all disciplines (PT, OT, and ST.) PT Problem 1 PT Problem #1 Knowledge Deficit PT Goal 1 Goal / Goal Update The patient with her 's assist will be independent in a home exercise program. Target Visit 4 Progress Met PT Problem 2 PT Problem #2 Impaired Balance PT Goal 1 Goal / Goal Update The patient will demonstrate 19/28 on the Tinetti Balance Scale indicating a moderate fall risk versus a high fall risk. Target Visit 10 Progress Not Met PT Problem 3 PT Problem #3 Impaired Gait PT Goal 1 Goal / Goal Update The patient will be able to ambulate 200 feet with the least restrictive assistive device to improve household ambulation. -progress Target Visit 10 Progress Not Met PT Problem 4 PT Problem #4 Impaired Strength PT Goal 1 Goal / Goal Update The patient will demonstrate 4-/5 or greater left hip, knee, and ankle strength to improve gait and balance. Progress Met PT Problem 5 PT Problem #5 Impaired Functional Mobility PT Goal 1 Goal / Goal Update The patient will demonstrate CGA for sit to/from stand transfers to improve functional mobility. - progress Target Visit 10 Progress Not Met OT Problem 1 OT Problem #1 Knowledge Deficit OT Goal 1 Goal / Goal Update The patient and caregiver will demonstrate 100% knowledge and return demonstration for UE exercises for coordination, visual scanning activities and adaptive techniques to maximize independence at home and during self care tasks. Target Visit 10 OT Problem 2 OT Problem #2 Impaired Coordination OT Goal 1 Goal / Goal Update The patient will demonstrate increased fine motor coordination with L UE by performing 9-hole peg test in <2 minutes in order to fasten buttons and zippers during dressing tasks. Target Visit 10 OT Goal 2 Goal / Goal Update The patient will demonstrate improvement in dressing apraxia by utilizing adaptive dressing techniques with min verbal cues in order to increase independence with UB dressing. Target Visit 20 OT Problem 3 OT Problem #3 Impaired Functional ADLs OT Goal 1 Goal / Goal Update The patient will demonstrate increased body awareness and L visual scanning through the need for min verbal cues during bilateral coordination task performed at midline in order to increase independence with self feeding. Target Visit 20 OT Goal 2 Goal / Goal Update The patient will connect the numbers of sample Trails A performing visual scanning with min verbal cues in <2 minutes in order to demonstrate increased cognitive function for attending to task and attending to L side for increased independence with functional tasks. Target Visit 10 OT Problem 4 OT Problem #4 Impaired Strength OT Goal 1 Goal / Goal Update The patient will demonstrate increased UB strength of L UE demonstrating 4+/5 muscle strength of shoulder flexion and elbow flexion/extension needed to maintain strength of neglected side of body to avoid muscle loss. Target Visit 10
--- NOTE | 2025-01-12 15:26 | PTOPPROG ---
Assessment and note entered by Dennise Pelletier, PT Evaluation Information Assessment Status Progress Diagnosis CVA ICD-10 Condition Codes (PT) Abnormalities of gait and mobility R26.9,Weakness R53.1 Other ICD-10 Condition Codes ( I67.9, R26.81, R53.81 PT) Subjective Information Pt reports feeling like her strength has improved since starting therapy. She also thinks her ambulation at home has improved. Per pt's , he has continued to assist pt with HEP and that he assists pt with walking all over the house, normally walking without AD but occasionally using rollator cr. if pt is struggling with her L leg. Assessment PT Clinical Summary Mrs. Ruth has attended 10 skilled PT visits for weakness, gait and functional decline following stroke. Since starting PT, her lower extremity strength and ambulation ability has improved. today she was able to tolerate ambulating 50ft x 2 using FWW with CGA and a wheelchair follow, and her sit to stand transfer ability has improved to min A. She is progressing toward goals but will benefit from continued skilled PT intervention to make further progress to improve functional mobility and reduce fall risk. Plan of Care Interventions Gait Training,Neuro Re-education,Patient/Caregiver Education,Therapeutic Activities,Therapeutic Exercise PT Services Indicated Yes Treatment Frequency and 1x/week for 4 additional visits Duration These treatments will address the objective and functional deficits as defined above. The patient will be advanced safely and appropriately in order for the patient to progress towards his/her prior level of function. Additional exercises will be introduced and as well as a comprehensive home exercise program upon discharge, if needed, ?to ensure carryover of functional gains achieved in the clinic. This treatment plan has been reviewed and agreement upon by the patient.
--- NOTE | 2025-01-24 13:51 | BUOTOPEVAL ---
Assessment and note entered by Leatha Enriquez OT Evaluation Information Assessment Status Progress Diagnosis CVA with significant visual deficits ICD-10 Condition Codes (OT) Generalized muscle weakness M62.81 Onset March 2024 Reported Pain Level Pain Score 0: Self Report Assessment OT Clinical Summary The patient demonstrates good progress toward goals through carryover of HEP per family report, performed 9-hole peg test in decreased time than evaluation with continued visual neglect deficits affecting speed, decreased dressing apraxia, and minimal increase of strength in L UE which have lead to increased engagement in self care tasks at home. The patient demonstrates minimal improvement in bilateral coordination and visual tracking speed due to L visual neglect and memory deficits that affect her ability to engage in leisure tasks and remember sequencing of tasks. The patient demonstrates progress toward goals that can increase patient's engagement in everyday tasks and increase independence for seated activities as visual deficits cause patient to be a safety concern. The patient's was educated on encouraging patient to participate in seated ADLs to highest level of independence and to encourage her to use her memory for tasks that she is trying to complete instead of leading her with cues for every activity. The patient continues to require skilled OT to address deficits and improve functional independence. Plan of Care Interventions Therapeutic Exercise,Neuro Re-education, Therapeutic Activities,Cognitive Function,Sensory Integrative Techniques,Self-Care/Home Management OT Services Indicated Yes Treatment Frequency and 1-2x/week for 10 visits. Duration These treatments will address the objective and functional deficits as defined above. The patient will be advanced safely and appropriately in order for the patient to progress towards his/her prior level of function. Additional exercises will be introduced and as well as a comprehensive home exercise program upon discharge, if needed, ?to ensure carryover of functional gains achieved in the clinic. This treatment plan has been reviewed and agreement upon by the patient.
--- NOTE | 2025-01-24 13:52 | OPREHPOC ---
Outpatient Therapy Plan of Care This is a Multidisciplinary Plan of Care that may contain components documented by all disciplines (PT, OT, and ST.) PT Problem 1 PT Problem #1 Knowledge Deficit PT Goal 1 Goal / Goal Update The patient with her 's assist will be independent in a home exercise program. Target Visit 4 Progress Met PT Problem 2 PT Problem #2 Impaired Balance PT Goal 1 Goal / Goal Update The patient will demonstrate 19/28 on the Tinetti Balance Scale indicating a moderate fall risk versus a high fall risk. Target Visit 10 Progress Not Met PT Problem 3 PT Problem #3 Impaired Gait PT Goal 1 Goal / Goal Update The patient will be able to ambulate 200 feet with the least restrictive assistive device to improve household ambulation. -progress Target Visit 10 Progress Not Met PT Problem 4 PT Problem #4 Impaired Strength PT Goal 1 Goal / Goal Update The patient will demonstrate 4-/5 or greater left hip, knee, and ankle strength to improve gait and balance. Progress Met PT Problem 5 PT Problem #5 Impaired Functional Mobility PT Goal 1 Goal / Goal Update The patient will demonstrate CGA for sit to/from stand transfers to improve functional mobility. - progress Target Visit 10 Progress Not Met OT Problem 1 OT Problem #1 Knowledge Deficit OT Goal 1 Goal / Goal Update The patient and caregiver will demonstrate 100% knowledge and return demonstration for UE exercises for coordination, visual scanning activities and adaptive techniques to maximize independence at home and during self care tasks. GOAL PROGRESSING; CONTINUE 01/17/2025 Target Visit 20 OT Problem 2 OT Problem #2 Impaired Coordination OT Goal 1 Goal / Goal Update The patient will demonstrate increased fine motor coordination with L UE by performing 9-hole peg test in <80 seconds in order to fasten buttons and zippers during dressing tasks. GOAL PROGRESSING; CONTINUE 01/17/2025 Evaluation: 203 seconds PN: 117 seconds Target Visit 20 OT Goal 2 Goal / Goal Update The patient will demonstrate improvement in dressing apraxia by utilizing adaptive dressing techniques with min verbal cues in order to increase independence with UB dressing. GOAL PROGRESSING; CONTINUE 01/17/2025 PN: Patient demonstrates the need for moderate verbal cues for donning pullover t shirt and min verbal cues for doffing pullover t shirt. Target Visit 20 OT Problem 3 OT Problem #3 Impaired Functional ADLs OT Goal 1 Goal / Goal Update The patient will demonstrate increased body awareness and L visual scanning through the need for min verbal cues during bilateral coordination task performed at midline in order to increase independence with self feeding. GOAL PROGRESSING; CONTINUE 01/17/2025 PN: Patient requires moderate to maximal verbal and visual cues during bilateral coordination tasks at midline due to visual neglect Target Visit 20 OT Goal 2 Goal / Goal Update The patient will connect the numbers of sample Trails A performing visual scanning with min verbal cues in <2 minutes in order to demonstrate increased cognitive function for attending to task and attending to L side for increased independence with functional tasks. GOAL PROGRESSING; CONTINUE 01/17/2025 PN: 4:18 with three verbal cues Target Visit 10 OT Problem 4 OT Problem #4 Impaired Strength OT Goal 1 Goal / Goal Update The patient will demonstrate increased UB strength of L UE demonstrating 4+/5 muscle strength of shoulder flexion and elbow flexion/extension needed to maintain strength of neglected side of body to avoid muscle loss. GOAL PROGRESSING; CONTINUE 01/17/2025 PN: Shoulder flexion: 4/5 Elbow flexion: 4/5 Elbow extension: 4-/5 Target Visit 10
--- NOTE | 2025-02-21 08:23 | OPREHPOC ---
Outpatient Therapy Plan of Care This is a Multidisciplinary Plan of Care that may contain components documented by all disciplines (PT, OT, and ST.) PT Problem 1 PT Problem #1 Knowledge Deficit PT Goal 1 Goal / Goal Update The patient with her 's assist will be independent in a home exercise program. Target Visit 4 Progress Met PT Problem 2 PT Problem #2 Impaired Balance PT Goal 1 Goal / Goal Update The patient will demonstrate 19/28 on the Tinetti Balance Scale indicating a moderate fall risk versus a high fall risk. Target Visit 18 Progress Not Met PT Problem 3 PT Problem #3 Impaired Gait PT Goal 1 Goal / Goal Update The patient will be able to ambulate 200 feet with the least restrictive assistive device to improve household ambulation. -progress Target Visit 18 Progress Not Met PT Problem 4 PT Problem #4 Impaired Strength PT Goal 1 Goal / Goal Update The patient will demonstrate 4-/5 or greater left hip, knee, and ankle strength to improve gait and balance. Progress Met PT Problem 5 PT Problem #5 Impaired Functional Mobility PT Goal 1 Goal / Goal Update The patient will demonstrate CGA for sit to/from stand transfers to improve functional mobility. - progress Target Visit 18 Progress Not Met OT Problem 1 OT Problem #1 Knowledge Deficit OT Goal 1 Goal / Goal Update The patient and caregiver will demonstrate 100% knowledge and return demonstration for UE exercises for coordination, visual scanning activities and adaptive techniques to maximize independence at home and during self care tasks. GOAL PROGRESSING; CONTINUE 01/17/2025 Target Visit 20 OT Problem 2 OT Problem #2 Impaired Coordination OT Goal 1 Goal / Goal Update The patient will demonstrate increased fine motor coordination with L UE by performing 9-hole peg test in <80 seconds in order to fasten buttons and zippers during dressing tasks. GOAL PROGRESSING; CONTINUE 01/17/2025 Evaluation: 203 seconds PN: 117 seconds Target Visit 20 OT Goal 2 Goal / Goal Update The patient will demonstrate improvement in dressing apraxia by utilizing adaptive dressing techniques with min verbal cues in order to increase independence with UB dressing. GOAL PROGRESSING; CONTINUE 01/17/2025 PN: Patient demonstrates the need for moderate verbal cues for donning pullover t shirt and min verbal cues for doffing pullover t shirt. Target Visit 20 OT Problem 3 OT Problem #3 Impaired Functional ADLs OT Goal 1 Goal / Goal Update The patient will demonstrate increased body awareness and L visual scanning through the need for min verbal cues during bilateral coordination task performed at midline in order to increase independence with self feeding. GOAL PROGRESSING; CONTINUE 01/17/2025 PN: Patient requires moderate to maximal verbal and visual cues during bilateral coordination tasks at midline due to visual neglect Target Visit 20 OT Goal 2 Goal / Goal Update The patient will connect the numbers of sample Trails A performing visual scanning with min verbal cues in <2 minutes in order to demonstrate increased cognitive function for attending to task and attending to L side for increased independence with functional tasks. GOAL PROGRESSING; CONTINUE 01/17/2025 PN: 4:18 with three verbal cues Target Visit 10 OT Problem 4 OT Problem #4 Impaired Strength OT Goal 1 Goal / Goal Update The patient will demonstrate increased UB strength of L UE demonstrating 4+/5 muscle strength of shoulder flexion and elbow flexion/extension needed to maintain strength of neglected side of body to avoid muscle loss. GOAL PROGRESSING; CONTINUE 01/17/2025 PN: Shoulder flexion: 4/5 Elbow flexion: 4/5 Elbow extension: 4-/5 Target Visit 10
--- NOTE | 2025-02-21 08:24 | PTOPPROG ---
Assessment and note entered by Yeni Nina, PT Evaluation Information Assessment Status Progress Diagnosis CVA ICD-10 Condition Codes (PT) Abnormalities of gait and mobility R26.9,Weakness R53.1 Other ICD-10 Condition Codes ( I67.9, R26.81, R53.81 PT) Subjective Information Pt continues to report feeling stronger since attending PT. Her reports he still assists her with ambulating in the home. He is always with her. Assessment PT Clinical Summary Mrs. Ruth has attended 14 skilled PT visits for weakness, gait and functional decline following stroke. Since starting PT, her lower extremity strength and ambulation ability has improved. She has progressed to being able to ambulate x 100ft with min assist of 2 for cueing, walker placement, and wheelchair follow. She continues to have assist with all daily activities from her who is with her 02/02. She will continue to benefit from skilled PT for a maintenance program for the next weeks. Plan of Care Interventions Gait Training,Neuro Re-education,Patient/Caregiver Education,Therapeutic Activities,Therapeutic Exercise PT Services Indicated Yes Treatment Frequency and 1x/week for 4 additional visits Duration These treatments will address the objective and functional deficits as defined above. The patient will be advanced safely and appropriately in order for the patient to progress towards his/her prior level of function. Additional exercises will be introduced and as well as a comprehensive home exercise program upon discharge, if needed, ?to ensure carryover of functional gains achieved in the clinic. This treatment plan has been reviewed and agreement upon by the patient.
--- NOTE | 2025-03-14 15:04 | PTOPDC ---
Assessment and note entered by Renetta Boles DPT Evaluation Information Assessment Status Discharge Diagnosis CVA ICD-10 Condition Codes (PT) Abnormalities of gait and mobility R26.9,Weakness R53.1 Other ICD-10 Condition Codes ( I67.9, R26.81, R53.81 PT) Subjective Information Patient reports she feels fine. She reports she feels she is walking better. She reports she is doing a few exercises at home. Reported Pain Level Pain Score 0: Self Report Pain Score 0: Self Report Assessment PT Clinical Summary Mrs. Ruth attended 18 visits of skilled PT. She demonstrates improved LE strength. She continues to demonstrate difficulty with transfers . She is able to complete sit to stand with CGA and cues for initiating with forward weight shift. She continues to requires assist with ambulation due to left side neglect. Senia and her were educated on continued HEP and she will be discharged at this time. Plan of Care PT Services Indicated No
== END 2025-03-14 20:00 | disposition still patient (30) ==
LOC: CHSPT 10:05
PROVIDERS: PCP Internal Medicine; Visit Provider Internal Medicine
DX: I67.9 Cerebrovascular disease, unspecified (principal); R26.81 Unsteadiness on feet; R53.81 Other malaise
CPT/HCPCS: 97110; 97112; 97162; 97166; 97530; 97535

== ENCOUNTER 2025-01-25 11:10 | Outpatient (CLI) | payer OTHER, SELFPAY ==
[2025-01-25 11:21] LABS: Add Urine Microscopic? YES; Appearance Urine Clear (Clear); Glucose Urine UA Negative (Negative); Leukocyte Esterase Ur Trace (Negative); Nitrate Urine Negative (Negative); Specific Grav Ur 1.015 (1.010-1.020)
== END 2025-01-25 11:11 | disposition home or self-care (01) ==
PROVIDERS: PCP Internal Medicine; Visit Provider Internal Medicine
DX: N39.0 Urinary tract infection, site not specified (principal)
CPT/HCPCS: 81001; 87086

== ENCOUNTER 2025-03-28 13:00 | Outpatient (RCR) | payer OTHER, SELFPAY ==
--- NOTE | 2025-06-07 15:36 | OTOPDC ---
Assessment and note entered by Leatha Enriquez, OT Evaluation Information Assessment Status Discharge - Pt Not Present Assessment OT Clinical Summary The patient is discharged at this time due to plateau in progress and cognitive deficits affect the patient's potential with continued therapy. The patient has not been seen for therapy for >30 days. Patient is discharged at this time. Plan of Care OT Services Indicated No
== END 2025-06-26 23:59 | disposition home or self-care (01) ==
LOC: CHSOT 13:00
PROVIDERS: PCP Internal Medicine; Visit Provider Internal Medicine
DX: I67.9 Cerebrovascular disease, unspecified (principal); R26.81 Unsteadiness on feet; R53.81 Other malaise
CPT/HCPCS: 97110; 97112; 97530